=== PATIENT | female | born 1980 | race Caucasian/White ===

== ENCOUNTER 2022-01-16 06:51 | Emergency (ER) | payer OTHER ==
[2022-01-16] MEDS ORDERED: MORPHINE 4 MG/ML SYR ONE ×2 (07:34→08:32)
[2022-01-16] MEDS ORDERED: ONDANSETRON 4 MG/2 ML VIAL ONE ×2 (07:34→08:32)
[2022-01-16] MEDS ORDERED: NA CHLORIDE 0.9% 1,000 ML ONE (07:34)
[2022-01-16 07:59] LABS: Absolute Lymphocytes (CBC) 2.5 K/uL (0.7-4.9); Hematocrit 39.4 % (36.0-45.0); Lymphocytes % 14.7 % (15.3-44.8); MPV 9.4 fL (7.6-11.3); RBC Red Blood Cell Count 4.37 M/uL (3.86-4.86)
[2022-01-16 08:12] LABS: Albumin 4.1 g/dL (3.4-5.0); Bilirubin Total 0.4 mg/dL (0.2-1.0); Potassium 3.3 mmol/L (3.5-5.1); Protein, Total 8.1 g/dL (6.4-8.2)
[2022-01-16] MEDS ORDERED: LIDOCAINE VISCOUS 2% SOLN 15 ML UDC ONE (08:32)
[2022-01-16] MEDS ORDERED: MAGNES/ALUMIN/SIMET 30ML UCUP ONE (08:32)
[2022-01-16 08:48] LABS: Urine Blood 3+ (Negative); Urine Glucose Negative (Negative); Urine Protein 2+ (Negative); Urine Specific Gravity 1.025 (1.005-1.030)
[2022-01-16 08:59] LABS: Urine Bacteria <20 /HPF (<20); Urine RBC >50 /HPF (NONE SEEN)
--- NOTE | 2022-01-16 09:08 | RAD REPORT ---
EXAM DESCRIPTION: CTAbdomen Pelvis W Contrast - 01/16/2022 8:51 am CLINICAL HISTORY: Abdominal pain. Abdominal pain COMPARISON: No comparisons TECHNIQUE: Biphasic CT imaging of the abdomen and pelvis was performed with 100 ml non-ionic IV cont rast. All CT scans are performed using dose optimization technique as appropriate and may include automated exposure control or mA/KV adjustment according to patient size. FINDINGS: The lung bases are clear. The liver is diffusely fatty. Small hiatal hernia. Spleen, pancreas, adrenal glands and left kidney a re within normal limits. Cholecystectomy. Double-J stent is in place on the right spanning the right renal pelvis and urinary bladder. No hydro nephrosis No bowel obstruction, free air, free fluid or abscess. Appendectomy. No evidence of significant lym phadenopathy. No suspicious bony findings. IMPRESSION: No acute intra-abdominal or pelvic finding.
[2022-01-16 09:13] LABS: Urine Specific Gravity/Preg 1.025 (1.005-1.030)
--- NOTE | 2022-01-16 09:17 | EDPHYS ---
Physician Documentation [facility] Name: Rhea Dos Santos Age: 41 yrs Sex: Female : 1980 Arrival Date: 01/16/2022 Time: 06:53 Bed 8 Private MD: ED Physician Franc Ramirez HPI: 01/16 08:46 This 41 yrs old Female presents to ER via EMS with complaints of abdominal pain. ms3 08:46 The patient presents with abdominal pain in the epigastric area. Onset: The ms3 symptoms/episode began/occurred 1 day(s) ago. The symptoms radiate to back. Associated signs and symptoms: Pertinent positives: nausea and vomiting. The symptoms are described as burning. Modifying factors: The symptoms are alleviated by nothing, the symptoms are aggravated by nothing. Severity of pain: in the emergency department the pain is unchanged is a . 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 - Social history:: Smoking status: Patient/guardian denies using tobacco, the patient reports quitting approximately 2 years ago, Patient uses street drugs, marijuana. ROS: 08:46 Constitutional: Negative for fever, and chills. Neck: Negative for injury, pain, and ms3 swelling, Cardiovascular: Negative for chest pain, and palpitations. Respiratory: Negative for shortness of breath, cough, wheezing, and pleuritic chest pain, Back: Negative for injury and pain, Skin: Negative for injury, rash, and discoloration, Neuro: Negative for headache, weakness, numbness, tingling. Psych: Negative for depression, anxiety, suicide ideation, homicidal ideation, and hallucinations. 08:46 Abdomen/GI: Positive for abdominal pain, nausea and vomiting. Exam: 08:46 Constitutional: This is a well developed, well nourished patient who is awake, alert, ms3 and in no acute distress. ENT: Nares patent. No nasal discharge, no septal abnormalities noted. Tympanic membranes are normal and external auditory canals are clear. Oropharynx with no redness, swelling, or masses, exudates, or evidence of obstruction, uvula midline. Mucous membranes moist. Neck: Trachea midline, no cervical lymphadenopathy. Supple, full range of motion without nuchal rigidity, or vertebral point tenderness. No Meningismus. Chest/axilla: Normal chest wall appearance and motion. Nontender with no deformity. Cardiovascular: Regular rate and rhythm with a normal S1 and S2. No gallops, murmurs, or rubs. Normal PMI, no JVD. No pulse deficits. Respiratory: Lungs have equal breath sounds bilaterally, clear to auscultation and percussion. No rales, rhonchi or wheezes noted. No increased work of breathing, no retractions or nasal flaring. Skin: Warm, dry with normal turgor. Normal color with no rashes, no lesions, and no evidence of cellulitis. MS/ Extremity: Pulses equal, no cyanosis. Neurovascular intact. Full, normal range of motion. Psych: Awake, alert, with orientation to person, place and time. Behavior, mood, and affect are within normal limits. 08:46 Abdomen/GI: Inspection: abdomen appears normal, Bowel sounds: normal, Palpation: moderate abdominal tenderness, in the epigastric area. Vital Signs: 06:54 BP 150 / 94; Pulse 71; Resp 18; Temp 98.7(O); Pulse Ox 99% ; Weight 99.79 kg; Height 5 tw5 ft. 1 in. (154.94 cm); Pain 10/10; 07:54 BP 169 / 91; Pulse 65; Resp 18; Pulse Ox 98% on R/A; ph 09:30 BP 146 / 82; Pulse 67; Resp 18; Temp 97.9; Pulse Ox 99% on R/A; ph 06:54 Body Mass Index 41.57 (99.79 kg, 154.94 cm) tw5 MDM: 07:11 Patient medically screened. ms3 08:46 Differential diagnosis: bowel obstruction, non-specific abd pain, pancreatitis. ms3 09:17 Data reviewed: vital signs, nurses notes, lab test result(s), radiologic studies, CT ms3 scan, and as a result, I will discharge patient. 09:17 Data interpreted: Pulse oximetry: on room air is 98 %. Interpretation: normal. ms3 Counseling: I had a detailed discussion with the patient and/or guardian regarding: the historical points, exam findings, and any diagnostic results supporting the discharge/admit diagnosis, the need for outpatient follow up, to return to the emergency department if symptoms worsen or persist or if there are any questions or concerns that arise at home. ED course: Discussed labs,CT, physical exam findings with patient. Patient to follow-up with primary care physician in 2 to 3 days. Patient understands and agrees with plan. All questions were answered. Return precautions discussed include worsening symptoms, or any other concerns. On reevaluation patient is alert and oriented x4, in no apparent distress, nontoxic-appearing, speaking full sentences, ambulatory in emergency department.. 01/16 07:12 Order name: CBC with Diff; Complete Time: 09:09 ms3 01/16 07:12 Order name: CMP; Complete Time: 09:09 ms3 01/16 07:12 Order name: Lipase; Complete Time: 09:09 ms3 01/16 07:12 Order name: Urine Microscopic Only; Complete Time: 09:09 ms3 01/16 08:48 Order name: Urine Dipstick-Ancillary; Complete Time: 09:09 EDMS 01/16 08:50 Order name: Urine --Ancillary (enter results); Complete Time: 09:13 bd 01/16 07:12 Order name: CT Abd/Pelvis - IV Contrast Only; Complete Time: 09:09 ms3 01/16 09:02 Order name: Urine Culture EDMS 01/16 07:12 Order name: IV Saline Lock; Complete Time: 07:49 ms3 01/16 07:12 Order name: Labs collected and sent; Complete Time: 07:49 ms3 01/16 07:12 Order name: Urine Dipstick-Ancillary (obtain specimen); Complete Time: 08:50 ms3 01/16 07:12 Order name: Urine Test (obtain specimen); Complete Time: 08:50 ms3 Administered Medications: 07:48 Drug: Zofran (Ondansetron) 4 mg Route: IVP; Site: right hand; ph 08:26 Follow up: Response: No adverse reaction bp 07:50 Drug: morphine 4 mg Route: IVP; Infused Over: 4 mins; Site: right hand; ph 08:50 Follow up: Response: Pain is decreased bp 07:51 Drug: NS 0.9% 1000 ml Route: IV; Rate: 1 bolus; Site: right hand; ph 09:00 Follow up: Response: No adverse reaction; IV Status: Completed infusion; IV Intake: ph 1000ml 08:40 Drug: morphine 4 mg Route: IVP; Infused Over: 4 mins; Site: right hand; ph 09:00 Follow up: Response: No adverse reaction; Pain is decreased ph 09:00 Drug: GI Cocktail without - (Maalox Suspension 30 ml, Lidocaine Liquid 2 % 15 bp ml) Route: PO; 10:00 Follow up: Response: No adverse reaction ph 10:12 Drug: Pepcid (famotidine) 20 mg Route: PO; ph 10:15 Follow up: Response: No adverse reaction ph Disposition Summary: 01/16/22 09:17 Discharge Ordered Location: Home ms3 Condition: Stable ms3 Diagnosis - Epigastric pain ms3 - Leukocytosis ms3 Followup: ms3 - With: Grayson Gage DO - When: 2 - 3 days - Reason: Recheck today's complaints Discharge Instructions: - Discharge Summary Sheet ms3 - Abdominal Pain, Adult ms3 Forms: - Medication Reconciliation Form ms3 - Thank You Letter ms3 - Antibiotic Education ms3 - Prescription Opioid Use ms3 Prescriptions: - Pepcid 20 mg Oral Tablet - take 1 tablet by ORAL route every 12 hours for 5 days; 10 tablet; Refills: 0, ms3 Product Selection Permitted Signatures: Dispatcher [employer] Elle Villareal RN RN Servando Osborne RN RN Franc Young DO DO ms3 Ana Leary tw5 Corrections: (The following items were deleted from the chart) 17:17 17:15 Data reviewed: vital signs, nurses notes, lab test result(s), radiologic studies, ms3 CT scan, and as a result, I will discharge patient, ms3
--- NOTE | 2022-01-16 09:17 | ER ---
Nurse's Notes [facility] Name: Rhea Dos Santos Age: 41 yrs Sex: Female : 1980 Arrival Date: 01/16/2022 Time: 06:53 Bed 8 Private MD: Diagnosis: Epigastric pain;Leukocytosis Presentation: 01/16 06:54 Chief complaint: EMS states: patient has a history of acute gastris, her stomach tw5 started hurting yesterday. Coronavirus screen: Vaccine status: Patient reports being unvaccinated. Ebola Screen: Patient negative for fever greater than or equal to 101.5 degrees Fahrenheit, and additional compatible Ebola Virus Disease symptoms Patient denies exposure to infectious person. Patient denies travel to an Ebola-affected area in the 21 days before illness onset. Initial Sepsis Screen: Does the patient meet any 2 criteria? No. Patient's initial sepsis screen is negative. Does the patient have a suspected source of infection? Yes: Acute abdominal pain. Risk Assessment: Do you want to hurt yourself or someone else? Patient reports no desire to harm self or others. Onset of symptoms was January 15, 2022 at 04:00. 06:54 Method Of Arrival: EMS: [facility] tw5 06:54 Acuity: PRASAD 3 tw5 Triage Assessment: 06:55 General: Appears uncomfortable, obese, Behavior is cooperative, anxious. Pain: tw5 Complains of pain in abdomen Pain currently is 10 out of 10 on a pain scale. Quality of pain is described as burning. 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 - Social history:: Smoking status: Patient/guardian denies using tobacco, the patient reports quitting approximately 2 years ago, Patient uses street drugs, marijuana. Screenin:58 Abuse screen: Denies threats or abuse. Denies injuries from another. Nutritional tw5 screening: No deficits noted. Tuberculosis screening: No symptoms or risk factors identified. Fall Risk None identified. Assessment: 06:58 General: Reports "oh god it hurts so bad. It alcazar.". Pain: Complains of pain in tw5 abdomen Pain currently is 10 out of 10 on a pain scale. GI: Pt is actively vomiting bile. 07:00 Reassessment: RECD REPORT FROM DAVID REYNA. 41YO WF P/W CHRONIC ABDOMINAL PAIN, H/O bp CHRONIC GASTRITIS. 07:53 Reassessment: Patient appears in no apparent distress at this time. Patient and/or ph family updated on plan of care and expected duration. Pain level reassessed. Patient is alert, oriented x 3, equal unlabored respirations, skin warm/dry/pink. Pt continues to c/o burning. 08:14 Reassessment: Pt reports that abdominal pain is radiating to back, continues to c/o ph burning sensation and nausea, requesting that daughters # be recorded for contact purposes: Naz . Vital Signs: 06:54 BP 150 / 94; Pulse 71; Resp 18; Temp 98.7(O); Pulse Ox 99% ; Weight 99.79 kg; Height 5 tw5 ft. 1 in. (154.94 cm); Pain 10/10; 07:54 BP 169 / 91; Pulse 65; Resp 18; Pulse Ox 98% on R/A; ph 09:30 BP 146 / 82; Pulse 67; Resp 18; Temp 97.9; Pulse Ox 99% on R/A; ph 06:54 Body Mass Index 41.57 (99.79 kg, 154.94 cm) tw5 ED Course: 06:53 Patient arrived in ED. mw2 06:53 Ana Leary is Primary Nurse. tw5 06:55 Triage completed. tw5 06:55 Arm band placed on. tw5 06:57 Franc Ramirez DO is Attending Physician. ms3 06:58 Patient has correct armband on for positive identification. Placed in gown. Bed in low tw5 position. Side rails up X2. Pulse ox on. NIBP on. Door closed. Noise minimized. Moved to private room. Warm blanket given. Verbal reassurance given. 07:00 Maintain EMS IV. Dressing intact. Good blood return noted. Site clean \\T\\ dry. Gauge \\T\\ bp site: 20 R HAND. 07:50 Inserted saline lock: 22 gauge in left antecubital area, using aseptic technique. Blood bp collected. 07:57 Primary Nurse role handed off by Ana Leary ll1 07:57 Elle Rodriguez RN is Primary Nurse. ph 08:52 CT Abd/Pelvis - IV Contrast Only In Process Unspecified. EDMS 09:15 Grayson Gage DO is Referral Physician. ms3 10:12 No provider procedures requiring assistance completed. IV discontinued, intact, ph bleeding controlled, No redness/swelling at site. Pressure dressing applied. Administered Medications: 07:48 Drug: Zofran (Ondansetron) 4 mg Route: IVP; Site: right hand; ph 08:26 Follow up: Response: No adverse reaction bp 07:50 Drug: morphine 4 mg Route: IVP; Infused Over: 4 mins; Site: right hand; ph 08:50 Follow up: Response: Pain is decreased bp 07:51 Drug: NS 0.9% 1000 ml Route: IV; Rate: 1 bolus; Site: right hand; ph 09:00 Follow up: Response: No adverse reaction; IV Status: Completed infusion; IV Intake: ph 1000ml 08:40 Drug: morphine 4 mg Route: IVP; Infused Over: 4 mins; Site: right hand; ph 09:00 Follow up: Response: No adverse reaction; Pain is decreased ph 09:00 Drug: GI Cocktail without - (Maalox Suspension 30 ml, Lidocaine Liquid 2 % 15 bp ml) Route: PO; 10:00 Follow up: Response: No adverse reaction ph 10:12 Drug: Pepcid (famotidine) 20 mg Route: PO; ph 10:15 Follow up: Response: No adverse reaction ph Medication: 06:58 VIS not applicable for this client. tw5 Intake: 09:00 IV: 1000ml; Total: 1000ml. ph Outcome: 09:17 Discharge ordered by MD. ms3 10:12 Patient left the ED. ph 19:23 Discharged to home ambulatory. ph 19:23 Condition: good 19:23 Discharge instructions given to patient, Instructed on discharge instructions, follow up and referral plans. medication usage, Demonstrated understanding of instructions, follow-up care, medications, Prescriptions given X 1. Signatures: Dispatcher [employer] EDOK Elle Rodriguez RN RN Servando Osborne RN RN [facility], Alanna mw2 Portia Rodriguez RN RN ll1 Franc Ramirez, DO GARCIA ms3 Ana Leary tw5
[2022-01-16] MEDS ORDERED: PROMETHAZINE INJ 25 MG/ML AMP ONE (10:09)
[2022-01-16] MEDS ORDERED: FAMOTIDINE 20 MG TAB ONE (10:09)
[2022-01-16 10:33] VITALS: TEMP 98.7
[2022-01-16 10:34] VITALS: BP 169/91; O2SAT 98
== END 2022-01-16 10:12 | disposition home or self-care (01) ==
LOC: ER 06:51
DX: R10.13 Epigastric pain (principal); D72.829 Elevated white blood cell count, unspecified; R11.2 Nausea with vomiting, unspecified; F31.9 Bipolar disorder, unspecified; Z88.5 Allergy status to narcotic agent; Z88.8 Allergy status to other drugs, medicaments and biological substances
CPT/HCPCS: 96361; 87088; 85025; 87086; 36415; 81025; 83690; 80053; 74177; 96375; 96374; 99284; Q9967; J2550; J7030; J2405 ×2; 81003; 81015

== ENCOUNTER 2022-07-06 18:06 | Emergency (ER) | payer OTHER ==
--- OUTSIDE RECORDS SUMMARY | 2022-07-06 18:30 | XMS REPORT | Continuity of Care Document ---
:1980 Author Organization [facility] t Address [address] [place] [address] Care Team Providers Name Role Phone VIELKA RENO Primary Care Physician Unavailable Mac MACK, Jonnathan Ibarra Attending Clinician [phone] Abelardo Gaona Attending Clinician Unavailable Doctor Unassigned, Alder Attending Clinician Unavailable Noemy MACK, Kelvin Santana Attending Clinician DR IQRA GAGE Attending Clinician Unavailable Nidhi South RN Attending Clinician Unavailable Provider, Ang [facility] Attending Clinician Unavailable Unknown, Attending Attending Clinician Unavailable EMERSON KHALIL Attending Clinician Unavailable JOSE ANDERSON Attending Clinician Unavailable JOANNA WEAVER Attending Clinician Unavailable Julio César MACK, Satya Justin Attending Clinician [phone] SATYA ENNIS Attending Clinician Unavailable DAYA LOERA Attending Clinician Unavailable Amilcar Ang MD Attending Clinician Daya Loera MD Attending Clinician CARLITO CARMEN Attending Clinician Unavailable Carlito Carmen MD Attending Clinician Quynh Burleson MD Attending Clinician QUYNH BURLESON Attending Clinician Unavailable Juan Carlos Logan MD Attending Clinician BRITTANI GARCIA Attending Clinician Unavailable Radha IRONER SOCKBrittani Roldan Attending Clinician Costa CRABTREE Attending Clinician Unavailable Rod ACOSTA K Deepali Attending Clinician Iqra Hoffman MD Attending Clinician Lab, Ang - Db Attending Clinician Unavailable Vijay Scottaracarlos Skelton Attending Clinician Unavailable Joanna Weaver MD Attending Clinician EBRAMAGUE CASTILLO Attending Clinician Unavailable Ebrahim IRONER SOCKMague Roldan Attending Clinician Juan Carlos Chamorro MD Attending Clinician Libby Hodges MD Attending Clinician Federico Juan MD Attending Clinician FEDERICO JUAN Attending Clinician Unavailable Jame Calvillo Attending Clinician JONNATHAN WATTS Attending Clinician Unavailable Duane Mario MD Attending Clinician Carley Fish MA Attending Clinician Unavailable Nurse, Slmg Sl Uro Attending Clinician Unavailable Ultrasound, Slmg Sl Uro Attending Clinician Unavailable DR MO BRANDON Attending Clinician Unavailable MARINE CAVAZOS Attending Clinician Unavailable Marine Cavazos DO Attending Clinician DR TREVON KC Attending Clinician Unavailable Trippafcheco WHEAT BUYER, Kayode Sanchez Attending Clinician [phone] KAYODE LOPEZ Attending Clinician Unavailable Krystle Mckeon CRNA Attending Clinician DR JADA MCGRATH Attending Clinician Unavailable SERA, DR CANDELARIO LYONS Attending Clinician Unavailable EWA LEMUS Attending Clinician Unavailable Noelle SILVERMAN, Delaney Rm Attending Clinician Unavailable Ewa Lemus MD Attending Clinician DR STORMY ZULETA Attending Clinician Unavailable TOD PHOENIX Attending Clinician Unavailable ARROYO, SON Attending Clinician Unavailable ARROYO, SON Attending Clinician [phone] DR RAMIRO LOPEZ I Attending Clinician Unavailable DR ANTHONY POP Attending Clinician Unavailable Oswald MACK, Jose Juan Jeter Attending Clinician [phone] Philly MACK, Nazanin Thomason Attending Clinician Manuel MACK, Polo Wilson Attending Clinician Tyler MACK, Surjit Shea Attending Clinician [phone] MD NAZANIN PONCE Attending Clinician Unavailable DR CARLOS HAYWARD Attending Clinician Unavailable DR KARTHIKEYAN AGUAYO Attending Clinician Unavailable RAVIN THOMAS Attending Clinician Unavailable THOMAS ALICIA Attending Clinician [phone] DR QUYNH BRADSHAW Attending Clinician Unavailable RAINA LIND Attending Clinician Unavailable RAINA LIND Attending Clinician [phone] RAINA LIND Attending Clinician Unavailable DR JENNYFER MILLER Attending Clinician Unavailable Andriy Starkey MD Attending Clinician Kinsey Cadena MA Attending Clinician Unavailable Franc Ramirez DO Attending Clinician DR LORNE RUIZ Attending Clinician Unavailable JUAN F FERNANDES, DR DONAVAN REDDING Attending Clinician Unavailable DR JARVIS CORBIN Attending Clinician Unavailable MR CHANTELL JOAQUIN Attending Clinician Unavailable DR JOSE JUAN CLAY Attending Clinician Unavailable DALILA BOATENG Attending Clinician Unavailable JEN, DR DALTON Attending Clinician Unavailable RUI DICKSON Attending Clinician Unavailable CYNDI COOL Attending Clinician Unavailable KENDRICK SAWANT Attending Clinician Unavailable SERGIO MADISON Attending Clinician Unavailable Vielka Reno Admitting Clinician Unavailable DR IQRA GAGE Admitting Clinician Unavailable DAYA LOERA Admitting Clinician Unavailable QUYNH BURLESON Admitting Clinician Unavailable BRITTANI GARCIA Admitting Clinician Unavailable Costa CRABTREE Admitting Clinician Unavailable MAGUE WHITTEN Admitting Clinician Unavailable JONNATHAN WATTS Admitting Clinician Unavailable ALEKSANDR, DR HASSAN Admitting Clinician Unavailable KNOW, DOES_NOT Admitting Clinician Unavailable MARINE CAVAZOS Admitting Clinician Unavailable DE, DR LESTER Admitting Clinician Unavailable RAMILA, DR JADA Cohn Admitting Clinician Unavailable SERA, DR CANDELARIO LYONS Admitting Clinician Unavailable SONG, DR STORMY Olsen Admitting Clinician Unavailable TOD PHOENIX Admitting Clinician Unavailable JOHN, DR RAMIRO Nath Admitting Clinician Unavailable DONN, DR CRUZ Admitting Clinician Unavailable NAZANIN PONCE Admitting Clinician Unavailable MD NAZANIN PONCE Admitting Clinician Unavailable DR CARLOS HAYWARD Admitting Clinician Unavailable DEDE, DR NAPIER Admitting Clinician Unavailable AUGUSTINE, DR QUYNH TAYLOR Admitting Clinician Unavailable ANGELA, DR BURGER Admitting Clinician Unavailable DR LORNE RUIZ Admitting Clinician Unavailable JUAN F FERNANDES, DR DONAVAN REDDING Admitting Clinician Unavailable SHAQUILLE, DR CONLEY Admitting Clinician Unavailable EMANI, MR CHANTELL Admitting Clinician Unavailable DR JOSE JUAN CLAY Admitting Clinician Unavailable DALILA BOATENG Admitting Clinician Unavailable DR KRYSTLE LI Admitting Clinician Unavailable CYNDI COOL Admitting Clinician Unavailable Payers Payer Name Policy Type Policy Number Effective Date Expiration Date S karen 0733 [id number] 2022 00:00:00 Problems Condition Condition Condition Status Onset Resolution Last Treating Co mments Source Name Details Category Date Date Treatment Clinician Date Intractabl Intractabl Disease Active [facility] pain [facility] 9[facility] [place] Flank pain Flank pain Disease Active [facility] Ureteral Ureteral Disease [facility] stricture, stricture, 9-14 [facility] left left 00:00: Medical 00 Center Anxiety Anxiety Disease Active Univers 8-25 ity of 00:00: [place] 00 Medical Branch Bipolar Bipolar Disease Active Univers affective affective 8-25 ity of disorder disorder 00:00: [place] in in 00 Medical remission remission Bran ch Depression Depression Disease Active U nivers 8-25 ity of 00:00: [place] [facility] Branch PTSD PTSD Disease Active Univers (post-trau (post-trau 8-25 it y of matic matic 00:00: [place] stress stress 00 Medical disorder) disorder) Bran ch Esophageal Esophageal Disease Active U nivers reflux reflux 8-25 ity of 00:00: [place] 00 [facility] Branch Nephrolith Nephrolith Disease Active U ciaran iasis iasis 8-25 ity of 00:00: [place] 00 [facility] Branch Hydronephr Hydronephr Disease Active [facility] osis, osis, 03-18 [facility] unspecifie unspecifie 00:00: Me dical d d 00 Center hydronephr hydronephr osis type osis type Intractabl Intractabl Disease Active M ethodi e nausea e nausea 4-22 [facility] and and 00:00: Hospita vomiting vomiting 00 l Epigastric Epigastric Disease Active M ethodi pain pain 9-15 [facility] 00:00: Hospita 00 l Chronic Chronic Disease Active Methodi pancreatit pancreatit 915 st is is 00:00: Hospita 00 l Abnormal Abnormal Disease Active Metho di liver liver 9-15 st enzymes enzymes 00:00: Hospita 00 l Renal Renal Disease Active Methodi calculus calculus 9-03 st or stone or stone 00:00: Hospit a 00 l Hypertensi Hypertensi Disease Active 2015-[address] on on 2- [facility] Center Generalize Generalize Disease Active 2015-[address] d d 208 [facility] abdominal abdominal 00:00: Medi darren pain pain 00 Center Right Right Disease Active 2015-[address] [facility] flank pain flank pain 2-08 [facility] 00:00: Medical 00 Center Allergies, Adverse Reactions, Alerts Allergy Allergy Status Severity Reaction(s) Onset Inactive Treating Comm ents Source Name Type Date Date Clinician LITHIUM Allergy [facility] [place] Drug Active [facility] Allergy 03-07 [facility] Center ARIPIPRA DRUG Active Unknown-Cmnt Un manjo ZOLE INGREDI 01-15 ity of 00:00: [place] [facility] DULOXETI DRUG Active Unknown-Cmnt Un manoj NE INGREDI 01-15 ity of 00:00: [place] 00 Medical Branch Aripipra Propensi Active Unknown - Can't Uni vers zole ty to See comments 01-15 remember it y of adverse 00:00: [place] reaction 00 Medical s Branch Duloxeti Propensi Active Unknown - Cant Uni vers ne ty to See comments 01-15 remember it y of adverse 00:00: the [place] reaction 00 reaction Medica l s Branch Duloxeti Propensi Active 2019-0 [facility] ne Hcl ty to [address] [place] [address] adverse 00:00: of reaction 00 Medicin s to e drug Fluoxeti Propensi Active 2019-0 [facility] ne ty to [address] adverse 00:00: of reaction 00 Medicin s to e drug Quetiapi Propensi Active 2019-0 [facility] ne ty to [address] [place] [address] Fumarate adverse 00:00: of reaction 00 Medicin s to e drug Tegretol Propensi Active 2020-0 [facility] ty to [address] adverse 00:00: of reaction 00 Medicin s to e drug Abilify Propensi Active 2020-0 [facility] ty to [address] adverse 00:00: of reaction 00 Medicin s to e drug Celexa Propensi Active 2020-0 [facility] ty to [address] adverse 00:00: of reaction 00 Medicin s to e drug prochlor DA Active U 2016-08 [facility] perazine 09-[facility]: [address] carbamaz DA Active U 2016-08 [facility] epine 09-09 00:00: [address] fluoxeti DA Active U 2016-08 [facility] ne 09-09 [facility]: [address] citalopr DA Active U 2016-08 [facility] am 09-09 00:00: [address] quetiapi DA Active U 2016-08 [facility] ne 09-09 00:00: [place] [facility] duloxeti DA Active U 2016-08 [facility] ne 09-09 [facility]:00: [address] aripipra DA Active U 2016-08 [facility] zole 09-09 00:00: [address] prochlor DA Active U 2016-08 [facility] perazine 09-09 00:00: [facility] [facility] carbamaz DA Active U 2016-08 [facility] epine 09-09 00:00: [address] fluoxeti DA Active U 2016-08 [facility] ne 09-09 00:00: [address] citalopr DA Active U 2016-08 [facility] am 09-09 00:00: [address] quetiapi DA Active U RAPID HEART 2016-08 [facility] ne RATE 09-09 00:00: [address] duloxeti DA Active U ILL 2016-08 [facility] ne 09-09 [facility]:00: [address] aripipra DA Active U ILL 2016-08 [facility] zole 09-09 00:[facility]: [address] Aripipra Propensi Active Other (See Cant Me thodi zole ty to Comments) 04-[address] adverse 00:00: reaction Hospita reaction 00 l s to drug Citalopr Propensi Active Other (See Aggressio Methodi am ty to Comments) 04-[address] adverse 00:00: Hospita reaction 00 l s to drug Duloxeti Propensi Active Other (See Cant Me thodi ne ty to Comments) 04-[address] adverse 00:00: reaction Hospita reaction 00 l s to drug Fluoxeti Propensi Active Other (See Hallucina Methodi ne ty to Comments) 04-[address] adverse 00:00: Hospita reaction 00 l s to drug Quetiapi Propensi Active Palpitations Methodi ne ty to 04-13 st adverse 00:00: Hospita reaction 00 l s to drug Carbamaz Propensi Active Method i epine ty to 04-13 st adverse 00:00: Hospita reaction 00 l s to drug ARIPIPRA Allergy Active [facility] ZOLE 3-18 [facility]: [address] Aripipra Propensi Active unknown [facility] zole ty to 3-18 [facility] adverse 00:00: Medical reaction 00 Center s CITALOPR Allergy Active Other [facility] AM 2-09 [facility] 00:[facility]: Medical 00 [place] DULOXETI Allergy Active [facility] NE 2-09 [facility] 00:[facility]: Medical 00 [place] Citalopr Propensi Active Other (See Agitation [facility] am ty to Comments) 2 [facility] adverse 00:00: Medical reaction 00 Center s Duloxeti Propensi Active Warm [facility] ne ty to 2- sensation [facility] adverse 00:00: form top Medical reaction 00 of head Center s and cold sensation coming from feet FLUOXETI Allergy Active 2013-[address] NE 2-29 [facility] 00:[facility]: Medical [place] QUETIAPI Allergy Active 2013-[address] NE 2-29 [facility] 00[facility]: Medical 00 [place] CARBAMAZ Allergy Active 2013-[address] EPINE 2-29 [facility] 00:[facility]: Medical 00 [place] Fluoxeti Drug Active 2013-08 Hallucina [facility] ne Allergy 2 ting [facility] 00:[facility]: while Medical 00 awake and Center asleep Quetiapi Drug Active 2013-[address] ne Allergy 2-29 [facility] 00:[facility]: Medical 00 [place] Carbamaz Drug Active 2013-[address] epine Allergy 2-29 [facility] 00:[facility]: Medical 00 [place] Levaquin DA Active Unknown 2013-08 [facility] 08-11 Medical 00:00: Center 00 PROCHLOR Allergy Active Other [facility] PERAZINE 7-30 [facility] 00:[facility]: Medical 00 [place] Prochlor Propensi Active Other (See Muscle [facility] perazine ty to Comments) 7-30 spasms [facility] adverse 00:00: Medical reaction 00 [place] s Fluoxeti Propensi Active Hallucinatio Univers ne ty to ns 7-30 ity of adverse 00:00: [place] reaction 00 Medical s Branch Quetiapi Propensi Active Other - See Speech U nivers ne ty to comments 7-30 problems ity of adverse 00:00: [place] reaction Medical s Branch Carbamaz Propensi Active Rash Univer s epine ty to 7-30 ity of adverse 00:00: [place] reaction 00 Medical s Branch CITALOPR DRUG Active Other-Cmnt Univ ers AM INGREDI 03-09 ity of 00:00: [place] [facility] FLUOXETI DRUG Active Hallucinates Un manoj NE INGREDI 03-09 ity of 00:00: [place] [facility] QUETIAPI DRUG Active Other-Cmnt Univ ers NE INGREDI 03-09 ity of 00:00: [place] [facility] CARBAMAZ DRUG Active Rash Univers EPINE INGREDI 03-09 ity of 00:00: [place] [facility] Citalopr Propensi Active Other - See agreesiv e Univers am ty to comments 03-09 ity of adverse 00:00: [place] reaction Medical s Branch Tegretol DA Active Severe [facility] 08-11 Medical 00:00: Center 00 Cymbalta DA Active Severe [facility] 08-11 Medical 00:00: Center 00 Seroquel DA Active Moderate [facility] 08-11 Medical 00:00: Center 00 Celexa DA Active Severe [facility] 08-11 Medical 00:00: Center 00 Prozac DA Active Unknown [facility] 08-11 Medical 00:00: Center 00 Abilify DA Active Unknown [facility] Social History Social Habit Start Date Stop Date Quantity Comments Source Nutritional 2019-07-26 [facility] observable 00:00:00 Health-related 2019-07-26 [facility] Behavior 00:00:00 History [facility] ge of Alcohol Std Drinks Medici ne History [facility] ge of Alcohol Binge Medicine Alcohol intake 2022-06-11 2022-06-[address] [facility] es 00:00:00 00:00:00 non-drinker of Medical Ce nter alcohol (finding) Exposure to 2022-05-28 2022-06-07 Not sure [facility] SARS-CoV-2 (event) 00:00:00 15:58:00 Medica l Branch Cigarette 2022-04-04 2022-04-04 [facility] pack-years 00:00:00 00:00:00 Medical Branch History of tobacco 1990-10-08 2020-09-19 Cigarette Smoker [facility] use 00:00:00 00:00:00 Medical Branch History SDOH 2020-05-09 2020-05-09 1 [facility] ge of Alcohol Frequency 00:00:00 00:00:00 Medicin e Tobacco Comment 2020-05-09 2020-05-09 Quit 3 months [facility] 00:00:00 00:00:00 ago Medicine Tobacco use and 2019-05-04 2019-05-[address] [facility] [facility] exposure 00:00:00 00:00:00 Medical Center Cigarettes smoked 2018-03-30 2018-03-30 [facility] current (pack per 00:00:00 00:00:00 day) - Reported Sex Assigned At [address] [facility] 00:00:00 00:00:00 Medical Center Smoking Status Start Date Stop Date Source Unknown if [facility] Former smoker 2019-05-04 00:00:00 2019-05-[address] [facility] 00:[facility]:00 Center Smokes tobacco daily 2018-03-30 00:00:00 [facility] Medications Ordered Filled Start Stop Current Ordering Indication Dosage Frequency Signature Comments Components Source Medication Medication Date Date Medication? Clinician (SIG) Name Name amitriptyli 2021-08- Yes 10mg QD Take [address] [facility] (ELAVIL) 09-03 tablet (10 L ukes 10 MG 00:00: 23:59 mg total) Medica l tablet 00 :00 by mouth Center nightly for 30 days. cimetidine 2021-08- Yes 400mg QD Take [address] (TAGAMET) 08-19 tablet [facility] 400 MG 00:00: 23:59 (400 mg Medical tablet 00 :00 total) by Center mouth nightly for 90 days. cimetidine 2021-08- Yes 400mg QD Take [address] (TAGAMET) 08-19 tablet [facility] 400 MG 00:00: 23:59 (400 mg Medical tablet 00 :00 total) by Center mouth nightly for 90 days. meloxicam 2021-08- Yes 15mg QD Take 1 [facility] (MOBIC) 15 08-19 tablet (15 [facility] MG tablet 00:00: 23:59 mg total) Me dical 00 :00 by mouth Center daily for 14 days. meloxicam 2021-08 No 15mg QD Take 1 [facility] (MOBIC) 15 08-19 11-23 tablet (15 [facility] k[facility] MG tablet 00:00: 23:59 mg total) Me dical 00 :00 by mouth Center daily for 14 days. clonazePAM 2021-08 Yes 1mg Take [address] (KlonoPIN) 1-01 by mouth 3 Ernesto es 1 MG tablet 13:14: (three) Med ical 23 times Center daily as needed for Anxiety . divalproex 2021-08 Yes mixed 500mg Q.5D Take [address] (DEPAKOTE) 1-01 bipolar I mg by Ernesto es 500 MG EC 13:14: disorder mouth 2 M edical tablet 23 (two) Center times daily . cetirizine 2021-08 Yes 10mg QD Take [address] (ZyrTEC) 10 1-01 by mouth Luke s MG tablet 13:14: daily. Medica l 23 Center clonazePAM 2021-08 Yes 1mg Take [address] (KlonoPIN) 1-01 by mouth 3 Ernseto es 1 MG tablet 13:14: (three) Med ical 23 times Center daily as needed for Anxiety . divalproex 2021-08 Yes mixed 500mg Q.5D Take [address] (DEPAKOTE) 1-01 bipolar I mg by Ernesto es 500 MG EC 13:14: disorder mouth 2 M edical tablet 23 (two) Center times daily . cetirizine 2021-08 Yes 10mg QD Take [address] (ZyrTEC) 10 101 by mouth Luke s MG tablet 13:14: daily. Medica l 23 Center ondansetron 2021-08 No 4mg Take [address] (ZOFRAN-ODT 0-31 10-31 by mouth Ernesto es ) 4 MG 10:34: 00:00 every 8 Medical disintegrat 17 :00 (eight) Cente r ing tablet hours as needed for Nausea. ondansetron 2021-08 No 4mg Take [address] (ZOFRAN-ODT 0-31 10-31 by mouth Ernesto es ) 4 MG 10:34: 00:00 every 8 Medical disintegrat 17 :00 (eight) Cente r ing tablet hours as needed for Nausea. levoFLOXaci 2021-08- No Lower 500mg QD Take [address] n 0-31 06-17 urinary tablet [facility] (Levaquin) 00:00: 23:59 tract (500 mg Me dical 500 MG 00 :00 symptoms total) by Cent er tablet (LUTS) mouth daily for 7 days. levoFLOXaci 2021-08- No Lower 500mg QD Take [address] n 0-31 07 urinary tablet [facility] (Levaquin) 00:00: 23:59 tract (500 mg Me dical 500 MG 00 :00 symptoms total) by Cent er tablet (LUTS) mouth daily for 7 days. ofloxacin 2021-08 Yes [id number] 5[drp] Place 5 Univers 0.3 % otic 0-29 Drops in ity o f drops 00:00: right ear [place] 00 in the Medical morning Branch and 5 Drops in the evening. ofloxacin 2021-08 Yes [id number] 5[drp] Place 5 Univers 0.3 % otic 0-29 Drops in ity o f drops 00:00: right ear [place] 00 in the Medical morning Branch and 5 Drops in the evening. ofloxacin 2021-08 Yes [id number] 5[drp] Place 5 Univers 0.3 % otic 0-29 Drops in ity o f drops 00:00: right ear [place] 00 in the Medical morning Branch and 5 Drops in the evening. cefdinir 2021-08- Yes [id number] 300mg Take 6 mL Univers 250 mg/5 mL 006-19 by mouth ity of suspension 00:00: 05:59 in the [facility] 00 :00 morning Medical and 6 mL Branch in the evening. Do all this for 10 days. cefdinir 2021-08- Yes [id number] 300mg Take 6 mL Univers 250 mg/5 mL 006-19 by mouth ity of suspension 00:00: 05:59 in the [facility] 00 :00 morning Medical and 6 mL Branch in the evening. Do all this for 10 days. cefdinir 2021-08- Yes [id number] 300mg Take 6 mL Univers 250 mg/5 mL 029 06-19 by mouth ity of suspension 00:00: 05:[place] morning Medical and 6 mL Branch in the evening. Do all this for 10 days. bromphenira 2021-08 Yes [id number] 5mL Take 5 mL Univers mine-pseudo 0-24 by mouth 4 it y of ephedrine-D 00:00: (four[place] (BROMFED 00 times Medical DM) 2-30-10 daily as Bran ch mg/5 mL needed for syrup Congestion /Allergies . azelastine 2021-08 Yes [id number] 1{spray Use 1 Univers 137 mcg 0-24 } [place] in ity of (0.1 %) 00:00: each [place] nasal spray 00 nostril in [facility] the Branch morning and 1 [place] in the evening. Use in each nostril as directed methocarbam 2021-08 Yes [id number] 500mg Take 1 Univers oL 500 mg 0-24 4 tablet by ity o f tablet 00:00: mouth 4 [place] ([facility]) Medical times [place] daily. bromphenira 2021-08 Yes [id number] 5mL Take 5 mL Univers mine-pseudo 0-24 by mouth 4 it y of ephedrine-D 00:00: (four[place] (BROMFED 00 times Medical DM) 2-30-10 daily as Bran ch mg/5 mL needed for syrup Congestion /Allergies . azelastine 2021-08 Yes [id number] 1{spray Use 1 Univers 137 mcg 0-24 } [place] in ity of (0.1 %) 00:00: each [place] nasal spray 00 nostril in [facility] the [place] morning and 1 [place] in the evening. Use in each nostril as directed methocarbam 2021-08 Yes [id number] 500mg Take 1 Univers oL 500 mg 0-24 4 tablet by ity o f tablet 00:00: mouth 4 [place] (four) Medical times Branch daily. bromphenira 2021-08 Yes [id number] 5mL Take 5 mL Univers mine-pseudo 0-24 by mouth 4 it y of ephedrine-D 00:00: (four[place] (BROMFED 00 times Medical DM) 2-30-10 daily as Bran ch mg/5 mL needed for syrup Congestion /Allergies . azelastine 2021-08 Yes [id number] 1{spray Use 1 Univers 137 mcg 0-24 } [place] in ity of (0.1 %) 00:00: each [place] nasal spray 00 nostril in [place] dical the Branch morning and 1 [place] in the evening. Use in each nostril as directed methocarbam 2021-08 Yes [id number] 500mg Take 1 Univers oL 500 mg 0-24 4 tablet by ity o f tablet 00:00: mouth 4 [place] [id number] (four) Medical times Branch daily. HYDROcodone 2021-08- No 1{tbl} Take [address] -acetaminop 0-23 11-02 tablet by Marilyn post ([employer]) 00:00: 23:59 mouth Medi darren 5-325 mg 00 :00 every 6 Center per tablet (six) hours as needed for Pain for up to 10 days. Max Daily Amount: 4 tablets HYDROcodone 2021-08 No 1{tbl} Take [address] -acetaminop 0-23 11-02 tablet by Marilyn post ([employer]) 00:00: 23:59 mouth Medi darren 5-325 mg 00 :00 every 6 Center per tablet (six) hours as needed for Pain for up to 10 days. Max Daily Amount: 4 tablets nitrofurant 2021-08- No 100mg Q.5D Take [address] oin, 0-23 10-30 capsule [facility] macrocrysta 00:00: 23:59 (100 mg Me dical l-monohydra 00 :00 total) by [place] [address] ter te, mouth 2 (MACROBID) (two) 100 MG times capsule daily for 7 days. tamsulosin 2021-08 No .4mg QD Take [address] (FLOMAX) 0-23 10-30 capsule [facility] 0.4 mg Cap 00:00: 23:59 (0.4 mg Med ical 24 hr 00 :00 total) by Center capsule mouth daily for 7 days. nitrofurant 2021-08- No 100mg Q.5D Take [address] oin, 0-23 10-30 capsule [facility] macrocrysta 00:00: 23:59 (100 mg Me dical l-monohydra 00 :00 total) by [place] ter te, mouth 2 (MACROBID) (two) 100 MG times capsule daily for 7 days. tamsulosin 2021-08 No .4mg QD Take [address] (FLOMAX) 0- 10-30 capsule [facility] 0.4 mg Cap 00:00: 23:59 (0.4 mg Med ical 24 hr 00 :00 total) by Center capsule mouth daily for 7 days. morpHINE (2 2021-08 No 4mg 4 mg, Slow Univers mg/mL) 05-29 IV Push, ity of injection 4 13:30: 12:41 [place]CE, 1 [place] mg 00 :[place] dose, On Medical Wed Branch 05/29/22 at 0830, STAT proMETHazin 2021-08 No 25mg 25 mg, IV Univers e 05-29 Piggyback, ity of (PHENERGAN) 12:30: 12:42 [place] 25 mg in 00 :00 dose, On Medical NaCl 0.9% Wed Branch (NS) 50 mL 05/29/22 IV at 0730, piggyback MEGHA ketorolac 2021-08 No 30mg 30 mg, Unive rs (TORADOL) 05-29 Slow IV ity of injection 12:30: 12:41 Push, [place] 30 mg 00 :00 ONCE, 1 Medical dose, On Branch 05/29/22 at 0730, MEGHA NaCl 0.9% 2021-08 No 1000mL at 999 Uni vers (NS) bolus 005-29 mL/hr, ity of infusion 12:30: 14:10 1,000 mL, Renato as 1,000 mL 00 :00 IV Medical Infusion, Branch ONCE, 1 dose, On Fri05/29/22 at 0730, STAT metoclopram 2021-08 No 10mg 10 mg, Uni vers teresa HCl 005-29 Slow IV ity of (REGLAN) 11:30: 11:46 Push, [place] injection 00 :00 ONCE, 1 Medical 10 mg dose, On Branch 05/29/22 at 0630, MEGHA ketorolac 2021-08 Yes [id number] 10mg Take 1 Un manoj 10 mg 0-19 tablet by ity of tablet 00:00: mouth [place] 00 every 6 Medical (six) Branch hours as needed for Pain (scale 4-6), Pain (scale 1-3) or Alternate with [place] for pain scale 4-6. proMETHazin 2021-08 Yes [id number] 25mg Take 1 [facility] 25 mg 0-19 tablet by ity of tablet 00:00: mouth [place] 00 every 6 Medical (six) Branch hours as needed for Nausea and Vomiting (N/V). ketorolac 2021-08 Yes [id number] 10mg Take 1 [facility] manoj 10 mg 0-19 tablet by ity of tablet 00:00: mouth [place] 00 every 6 Medical (six) Branch hours as needed for Pain (scale 4-6), Pain (scale 1-3) or Alternate with [place] for pain scale 4-6. proMETHazin 2021-08 Yes [id number] 25mg Take 1 [facility] 25 mg 0-19 tablet by ity of tablet 00:00: mouth [place] 00 every 6 Medical (six) Branch hours as needed for Nausea and Vomiting (N/V). ketorolac 2021-08 Yes [id number] 10mg Take 1 [facility] manoj 10 mg 0-19 tablet by ity of tablet 00:00: mouth [place] 00 every 6 Medical (six) Branch hours as needed for Pain (scale 4-6), Pain (scale 1-3) or Alternate with [place] for pain scale 4-6. proMETHazin 2021-08 Yes [id number] 25mg Take 1 [facility] e 25 mg 0-19 tablet by ity of tablet 00:00: mouth [place] 00 every 6 Medical (six) Branch hours as needed for Nausea and Vomiting (N/V). ketorolac 2021-08 Yes [id number] 10mg Take 1 [facility] manoj 10 mg 0-19 tablet by ity of tablet 00:00: mouth [place] 00 every 6 Medical (six) Branch hours as needed for Pain (scale 4-6), Pain (scale 1-3) or Alternate with [place] for pain scale 4-6. proMETHazin 2021-08 Yes [id number] 25mg Take 1 [facility] e 25 mg 0-19 tablet by ity of tablet 00:00: mouth [place] 00 every 6 Medical (six) Branch hours as needed for Nausea and Vomiting (N/V). HYDROcodone 2021-08- Yes [id number] 1{tbl} Take 1 U nivers -acetaminop 0-19 10-27 tablet by it y of hen 5-325 00:00: 04:59 mouth [place] mg tablet 00 :00 every 6 Medical (six) Branch hours as needed for Pain (scale 7-10) for up to 7 days. Indication s: acute pain proMETHazin 2021-08 No 25mg 25 mg, IV [facility] e 0-07 20- Piggyback, ity of (PHENERGAN) 14:30: 14:49 ONCE, 1 [place] 25 mg in 00 :00 dose, On Medical NaCl 0.9% Wed Branch (NS) 50 mL 05/22/22 IV at 0930, piggyback MEGHA NaCl 0.9% 2021-08 No 1000mL at 999 Uni vers (NS) IV 0-12 10-12 mL/hr, ity of infusion 14:15: 15:53 Intravenou [place] 1,000 mL 00 :00 s, ONCE, 1 Medic al dose, On Branch 05/22/22 at 0915, MEGHA pantoprazol 2021-08 No 40mg 40 mg, Uni vers e 0-05-22 Slow IV ity of (PROTONIX) 13:15: 13:26 Push, [place] injection 00 :00 ONCE, 1 Medical 40 mg dose, On Branch 05/22/22 at 0815 morpHINE (4 2021-08 No 4mg 4 mg, Slow [facility] mg/mL) 05-22 IV Push, ity of injection 4 13:15: 13:26 ONCE, 1 [place] mg 00 :00 dose, On Medical Wed Branch 05/22/22 at 0815, Routine dicyclomine 2021-08 Yes [id number] 20mg Take 1 [facility] 20 mg 0-12 tablet by ity of tablet 00:00: mouth 4 [place] 00 (four) Medical times Branch daily as needed for Abdominal pain. dicyclomine 2021-08 Yes [id number] 20mg Take 1 [facility] 20 mg 0-12 tablet by ity of tablet 00:00: mouth 4 [place] 00 (four) Medical times Branch daily as needed for Abdominal pain. dicyclomine 2021-08 Yes [id number] 20mg Take 1 [facility] 20 mg 0-12 tablet by ity of tablet 00:00: mouth 4 [place] 00 (four) Medical times Branch daily as needed for Abdominal pain. dicyclomine 2021-08 Yes [id number] 20mg Take 1 [facility] 20 mg 0-12 tablet by ity of tablet 00:00: mouth (four) Medical times Branch daily as needed for Abdominal pain. dicyclomine 2021-08 Yes [id number] 20mg Take 1 [facility] 20 mg 0-12 tablet by ity of tablet 00:00: mouth (four) Medical times Branch daily as needed for Abdominal pain. HYDROcodone 2021-2021- No 1{tbl} Take [address] -acetaminop 9-26 10-06 tablet by Marilyn post ([employer]) 00:00: 23:59 mouth Medi dar[place] 5-325 mg 00 :00 every 6 Center per tablet (six) hours as needed for Pain for up to 10 days. Max Daily Amount: 4 tablets HYDROcodone 2021-0 2021- No 1{tbl} Take [address] -acetaminop 9-26 10-06 tablet by Marilyn post ([employer]) 00:00: 23:59 mouth Medi darren 5-325 mg 00 :00 every 6 Center per tablet (six) hours as needed for Pain for up to 10 days. Max Daily Amount: 4 tablets DIVALPROEX 2021-0 Yes [id number] TAKE ONE [facility] 500 mg EC 9-23 TABLET BY ity o f tablet 00:00: MOUTH [place] 00 EVERY 12 Medical HOURS Branch DIVALPROEX 2021-0 Yes [id number] TAKE ONE [facility] 500 mg EC 9-23 TABLET BY ity o f tablet 00:00: MOUTH [place] 00 EVERY 12 Medical HOURS Branch DIVALPROEX 2021-0 Yes [id number] TAKE ONE [facility] 500 mg EC 9-23 TABLET BY ity o f tablet 00:00: MOUTH [place] 00 EVERY 12 Medical HOURS Branch DIVALPROEX 2-0 Yes [id number] TAKE ONE [facility] 500 mg EC 9-23 TABLET BY ity o f tablet 00:00: MOUTH [place] 00 EVERY 12 Medical HOURS Branch DIVALPROEX 2021-0 Yes [id number] TAKE ONE [facility] 500 mg EC 9-23 TABLET BY ity o f tablet 00:00: MOUTH [place] 00 EVERY 12 Medical HOURS Branch DIVALPROEX 2021-0 Yes [id number] TAKE ONE [facility] 500 mg EC 9-23 TABLET BY ity o f tablet 00:00: MOUTH [place] 00 EVERY 12 Medical HOURS Branch oxybutynin 2021- No 5mg Q.[id number] Take [address] [facility] (DITROPAN) 04-30- [id number] by mouth 3 [facility] 5 MG tablet 15:51: 00:00 3D (three) Me dical 04 :00 times Center daily. cephalexin 2021-2021- No 500mg Q.5D Take [address] (KEFLEX) 9-20 09-14 mg by [facility] 500 MG 15:51: 00:00 mouth 2 Medical capsule 04 :00 (two) Center times daily. ketorolac 2021-2021- No 10mg Take [address] (TORADOL) 04-30- by mouth [facility] 10 mg 15:51: 00:00 every 6 Medical tablet 04 :00 (six) Center hours as needed for Pain. oxybutynin 2021- No 5mg Q.[id number] Take [address] [facility] (DITROPAN) 04-30- [id number] by mouth 3 [facility] 5 MG tablet 15:51: 00:00 3D (three) Me dical 04 :00 times Center daily. cephalexin 2021- No 500mg Q.5D Take [address] (KEFLEX) -20 09-14 mg by [facility] 500 MG 15:51: 00:00 mouth 2 Medical capsule 04 :00 (two) Center times daily. ketorolac 2021-2021- No 10mg Take [address] (TORADOL) 04-30-14 by mouth [facility] 10 mg 15:51: 00:00 every 6 Medical tablet 04 :00 (six) Center hours as needed for Pain. mirabegron 2021- 2022- No 50mg QD Take [address] [facility] (MYRBETRIQ) 9-20 10-20 tablet (50 [facility] 50 mg Tb24 00:00: 23:59 mg total) M edical ER tablet 00 :00 by mouth Center daily for 30 days. mirabegron 2021-2- No 50mg QD Take [address] [facility] (MYRBETRIQ) 9-20 10-20 tablet (50 [facility] 50 mg Tb24 00:00: 23:59 mg total) M edical ER tablet 00 :00 by mouth Center daily for 30 days. gabapentin 2021-2021- No 100mg Q.[id number] Take [address] [facility] (NEURONTIN) 04-29 [id number] capsule [facility] 100 MG 00:00: 23:59 3D (100 mg Medical capsule 00 :00 total) by Center mouth 3 (three) times daily for 30 days. gabapentin 2021-2021- No 100mg Q.[id number] Take [address] [facility] (NEURONTIN) 04-29 [id number] capsule [facility] 100 MG 00:00: 23:59 3D (100 mg Medical capsule 00 :00 total) by Center mouth 3 (three) times daily for 30 days. HYDROcodone 2021-2021- No 1{tbl} Take [address] -acetaminop 04-29 tablet by Marilyn post ([facility]CO 00:00: 00:00 mouth Medic al 5-325) 00 :00 every 6 Center 5-325 mg (six) per tablet hours as needed for Pain for up to 10 days. Max Daily Amount: 4 tablets HYDROcodone 2021-2021- No 1{tbl} Take [address] -acetaminop 04-29 tablet by Marilyn post ([facility] 00:00: 00:00 mouth Medic al 5-325) 00 :00 every 6 Center 5-325 mg (six) per tablet hours as needed for Pain for up to 10 days. Max Daily Amount: 4 tablets oxybutynin 2021-0 Yes 5mg Q.[id number] Take [address] [facility] (DITROPAN) - [id number] tablet (5 [facility] 5 MG tablet 00:00: 3D mg total) M edical 00 by mouth 3 Center (three) times daily. oxybutynin 2-0 Yes 5mg Q.[id number] Take [address] [facility] (DITROPAN) - [id number] tablet (5 [facility] 5 MG tablet 00:00: 3D mg total) M edical 00 by mouth 3 Center (three) times daily. tamsulosin 2021-2021- No .4mg QD Take [address] [facility] (FLOMAX) 04-24 capsule [facility] 0.4 mg Cap 00:00: 23:59 (0.4 mg Med ical 24 hr 00 :00 total) by Center capsule mouth daily for 30 days. tamsulosin 2021- No .4mg QD Take [address] [facility] (FLOMAX) 04-24 capsule [facility] 0.4 mg Cap 00:00: 23:59 (0.4 mg Med ical 24 hr 00 :00 total) by Center capsule mouth daily for 30 days. nitrofurant 2021- No 100mg Q.5D Take [address] [facility], 04-24 capsule [facility] macrocrysta 00:00: 23:59 (100 mg Me dical l-monohydra 00 :00 total) by [facility] ter te, mouth 2 (MACROBID) (two) 100 MG times capsule daily for 10 days. nitrofurant 2021- No 100mg Q.5D Take [address] [facility], 04-24 capsule [facility] macrocrysta 00:00: 23:59 (100 mg Me dical l-monohydra 00 :00 total) by [facility], mouth 2 (MACROBID) (two) 100 MG times capsule daily for 10 days. ketorolac 2021- No 10mg Take 1 [facility] (TOR[facility]OL[facility] 04-24 tablet (10 Ernesto es 10 mg 00:00: 23:59 mg total) Medica l tablet 00 :00 by mouth Center every 6 (six) hours as needed for Pain for up to 5 days. HYDROcodone 2021- No 1{tbl} Take [address] -acetaminop 04-24 tablet by Marilyn post ([facility] 00:00: 00:00 mouth Medic al 5-325) 00 :00 every 6 Center 5-325 mg (six) per tablet hours as needed for Pain for up to 10 days. Max Daily Amount: 4 tablets ketorolac 2021- No 10mg Take 1 [facility] (TORADOL) 04-24 tablet (10 Ernesto es 10 mg 00:00: 23:59 mg total) Medica l tablet 00 :00 by mouth Center every 6 (six) hours as needed for Pain for up to 5 days. HYDROcodone 2021- No 1{tbl} Take [address] -acetaminop 04-24 tablet by Marilyn post ([facility] 00:00: 00:00 mouth Medic al 5-325) 00 :00 every 6 Center 5-325 mg (six) per tablet hours as needed for Pain for up to 10 days. Max Daily Amount: 4 tablets phenazopyri 2021-2021- No 100mg Take [address] [facility] [address] dine 04-24 tablet [facility] (PYRIDIUM) 00:00: 23:59 (100 mg Med ical 100 MG 00 :00 total) by Center tablet mouth 3 (three) times daily as needed for Pain for up to 3 days. phenazopyri 2021-2021- No 100mg Take [address] dine 04-24 tablet [facility] (PYRIDIUM) 00:00: 23:59 (100 mg Med ical 100 MG 00 :00 total) by Center tablet mouth 3 (three) times daily as needed for Pain for up to 3 days. sulfamethox 2021- No 160mg{t Q.5D Take [address] [facility] azole-trime 04-19 rimetho tablet [facility] thoprim 00:00: 00:00 prim} (160 mg of Me dical (Bactrim 00 :00 trimethopr Cente r DS) 800-160 im total) mg per by mouth 2 tablet (two) times daily for 7 days. sulfamethox 2021-2021- No 160mg{t Q.5D Take [address] [facility] azole-trime 04-19 rimetho tablet [facility] thoprim 00:00: 00:00 prim} (160 mg of Me dical (Bactrim 00 :00 trimethopr Cente r DS) 800-160 im total) mg per by mouth 2 tablet (two) times daily for 7 days. HYDROcodone 2021- No 1{tbl} 1 tablet, [facility] -acetaminop 04-16 Oral, ity of sincere (NORCO) 19:00: 18:23 ONCE, 1 [place] 10-325 mg 00 :00 dose, On Medica l tablet 1 9/6/22 Branc h tablet at 1400, Routine ketorolac No 15mg 15 mg, Unive rs (TORADOL) 04-16 Slow IV ity of injection 19:00: 18:13 Push, [place] 15 mg 00 :00 ONCE, 1 Medical dose, On Branch e 04/16/22 at 1400, MEGHA proMETHazin 2021- No 25mg 25 mg, Uni vers e 04-16 Intramuscu ity of (PHENERGAN) 18:15: 18:23 lar, ONCE, [place] injection 00 :00 1 dose, On Medi darren 25 mg 04/16/22 Branch at 1315, MEGHA cefTRIAXone No 1000mg 1,000 mg, Univers (ROCEPHIN) 04-16 IV ity of 1,000 mg in 18:00: 18:30 Piggyback, [place] NaCl 0.9% 00 :00 ONCE, 1 Medical (NS) 50 mL dose, On [facility] h MINI-BAG Fri04/16/22 at 1300, Administer over 30 Minutes, 50 mL
R katherin for Anti-Infec tive: Documented Infection< br>Documen abdias Infection Site: Urine<br&g t;Duration of Therapy: Other (see Comments) iopamidol 2021- No [id number] 65mL 65 mL, U nivers (ISOVUE 04-16 Intravenou ity o f 370-500 mL) 17:15: 17:15 s, ONCE, 1 [place] injection 00 :00 dose, On Medica l 65 mL 04/16/22 Branch at 1215, Routine morpHINE (4 2021- No 4mg 4 mg, Slow Univers mg/mL) 04-16 IV Push, ity of injection 4 16:45: 16:00 ONCE, 1 [place] mg 00 :00 dose, On Medical e 04/16/22 Branch at 1145, STAT ondansetron 2021- No 4mg 4 mg, Slow Univers (ZOFRAN 04-16 IV Push, ity of (PF)) 16:45: 16:00 ONCE, 1 [place] injection 4 00 :00 dose, On Medi darren mg Fri04/16/22 Branch at 1145, MEGHA NaCl 0.9% 2021-0 2021- No 1000mL at 999 Uni vers (NS) bolus 04-16 09-06 mL/hr, ity of infusion 16:45: 18:30 1,000 mL, Renato as 1,000 mL 00 :00 IV Medical Infusion, Branch ONCE, 1 dose, On Fri04/16/22 at 1145, MEGHA ondansetron 2021-0 Yes [id number] 4mg Take 1 [facility] 4 mg 9-06 tablet by ity of disintegrat 00:00: mouth [place] ing tablet 00 every 8 Medica l (eight) Branch hours as needed for Nausea and Vomiting (N/V). proMETHazin 2021-0 Yes [id number] 25mg Take 1 [facility] e 25 mg 9-06 tablet by ity of tablet 00:00: mouth [place] 00 every 6 Medical (six) Branch hours as needed for N/V unresponsi ve to Ondansetro n. ketorolac 2021-0 Yes [id number] 10mg Take 1 Un manoj 10 mg 9-06 tablet by ity of tablet 00:00: mouth [place] 00 every 6 Medical (six) Branch hours as needed for Pain (scale 1-3) or Pain (scale 4-6). cephALEXin 2021-0 Yes [id number] 500mg Take 1 [facility] (KEFLEX) 9-06 capsule by ity o f 500 mg 00:00: mouth in [place] capsule 00 the Medical morning Branch and 1 capsule in the evening. ondansetron 2021-0 Yes [id number] 4mg Take 1 [facility] 4 mg 9-06 tablet by ity of disintegrat 00:00: mouth [place] ing tablet 00 every 8 Medica l (eight) Branch hours as needed for Nausea and Vomiting (N/V). proMETHazin 2021-0 Yes [id number] 25mg Take 1 [facility] e 25 mg 9-06 tablet by ity of tablet 00:00: mouth [place] 00 every 6 Medical (six) Branch hours as needed for N/V unresponsi ve to Ondansetro n. ketorolac 2021-0 Yes [id number] 10mg Take 1 Un manoj 10 mg 9-06 tablet by ity of tablet 00:00: mouth [place] 00 every 6 Medical (six) Branch hours as needed for Pain (scale 1-3) or Pain (scale 4-6). cephALEXin 2022-0 Yes [id number] 500mg Take 1 [facility] (KEFLEX) 9-06 capsule by ity o f 500 mg 00:00: mouth in [place] capsule 00 the Medical morning Branch and 1 capsule in the evening. ondansetron 2022-0 Yes [id number] 4mg Take 1 [facility] 4 mg 9-06 tablet by ity of disintegrat 00:00: mouth [place] ing tablet 00 every 8 Medica l (eight) Branch hours as needed for Nausea and Vomiting (N/V). proMETHazin 2022-0 Yes [id number] 25mg Take 1 Univers e 25 mg 9-06 tablet by ity of tablet 00:00: mouth [place] 00 every 6 Medical (six) Branch hours as needed for N/V unresponsi ve to Ondansetro n. ketorolac 2022-0 Yes [id number] 10mg Take 1 Un manoj 10 mg 9-06 tablet by ity of tablet 00:00: mouth [place] 00 every 6 Medical (six) Branch hours as needed for Pain (scale 1-3) or Pain (scale 4-6). cephALEXin 2022-0 Yes [id number] 500mg Take 1 [facility] (KEFLEX) 9-06 capsule by ity o f 500 mg 00:00: mouth in [place] capsule 00 the Medical morning Branch and 1 capsule in the evening. ondansetron 2022-0 Yes [id number] 4mg Take 1 [facility] 4 mg 9-06 tablet by ity of disintegrat 00:00: mouth [place] ing tablet 00 every 8 Medica l (eight) Branch hours as needed for Nausea and Vomiting (N/V). proMETHazin 2022-0 Yes [id number] 25mg Take 1 Univers e 25 mg 9-06 tablet by ity of tablet 00:00: mouth [place] 00 every 6 Medical (six) Branch hours as needed for N/V unresponsi ve to Ondansetro n. ketorolac 2022-0 Yes [id number] 10mg Take 1 Un manoj 10 mg 9-06 tablet by ity of tablet 00:00: mouth [place] 00 every 6 Medical (six) Branch hours as needed for Pain (scale 1-3) or Pain (scale 4-6). cephALEXin 2022-0 Yes [id number] 500mg Take 1 Univers (KEFLEX) 9-06 capsule by ity o f 500 mg 00:00: mouth in [place] capsule 00 the Medical morning Branch and 1 capsule in the evening. ondansetron 2021-0 Yes [id number] 4mg Take 1 [facility] 4 mg 9-06 tablet by ity of disintegrat 00:00: mouth [place] ing tablet 00 every 8 Medica l (eight) Branch hours as needed for Nausea and Vomiting (N/V). proMETHazin 2021-0 Yes [id number] 25mg Take 1 Univers e 25 mg 9-06 tablet by ity of tablet 00:00: mouth [place] 00 every 6 Medical (six) Branch hours as needed for N/V unresponsi ve to Ondansetro n. ketorolac 2021-0 Yes [id number] 10mg Take 1 Un manoj 10 mg 9-06 tablet by ity of tablet 00:00: mouth [place] 00 every 6 Medical (six) Branch hours as needed for Pain (scale 1-3) or Pain (scale 4-6). cephALEXin 2021-0 Yes [id number] 500mg Take 1 [facility] (KEFLEX) 9-06 capsule by ity o f 500 mg 00:00: mouth in [place] capsule 00 the Medical morning Branch and 1 capsule in the evening. ondansetron 2021-0 Yes [id number] 4mg Take 1 [facility] 4 mg 9-06 tablet by ity of disintegrat 00:00: mouth [place] ing tablet 00 every 8 Medica l (eight) Branch hours as needed for Nausea and Vomiting (N/V). proMETHazin 2-0 Yes [id number] 25mg Take 1 Univers e 25 mg 9-06 tablet by ity of tablet 00:00: mouth [place] 00 every 6 Medical (six) Branch hours as needed for N/V unresponsi ve to Ondansetro n. ketorolac 2022-0 Yes [id number] 10mg Take 1 Un manoj 10 mg 9-06 tablet by ity of tablet 00:00: mouth [place] 00 every 6 Medical (six) Branch hours as needed for Pain (scale 1-3) or Pain (scale 4-6). cephALEXin 2022-0 Yes [id number] 500mg Take 1 [facility] (KEFLEX) 9-06 capsule by ity o f 500 mg 00:00: mouth in [place] capsule 00 the Medical morning Branch and 1 capsule in the evening. ondansetron 0 Yes [id number] 4mg Take 1 [facility] 4 mg 9-06 tablet by ity of disintegrat 00:00: mouth [place] ing tablet 00 every 8 Medica l (eight) Branch hours as needed for Nausea and Vomiting (N/V). proMETHazin 2021-0 Yes [id number] 25mg Take 1 Univers e 25 mg 9-06 tablet by ity of tablet 00:00: mouth [place] 00 every 6 Medical (six) Branch hours as needed for N/V unresponsi ve to Ondansetro n. ketorolac 0 Yes [id number] 10mg Take 1 Un manoj 10 mg 9-06 tablet by ity of tablet 00:00: mouth [place] 00 every 6 Medical (six) Branch hours as needed for Pain (scale 1-3) or Pain (scale 4-6). ondansetron 0 Yes [id number] 4mg Take 1 [facility] 4 mg 9-06 tablet by ity of disintegrat 00:00: mouth [place] ing tablet 00 every 8 Medica l (eight) Branch hours as needed for Nausea and Vomiting (N/V). proMETHazin 0 Yes [id number] 25mg Take 1 Univers e 25 mg 9-06 tablet by ity of tablet 00:00: mouth [place] 00 every 6 Medical (six) Branch hours as needed for N/V unresponsi ve to Ondansetro n. ketorolac 2021-0 Yes [id number] 10mg Take 1 Un manoj 10 mg 9-06 tablet by ity of tablet 00:00: mouth [place] 00 every 6 Medical (six) Branch hours as needed for Pain (scale 1-3) or Pain (scale 4-6). ondansetron 2021-0 Yes [id number] 4mg Take 1 [facility] 4 mg 9-06 tablet by ity of disintegrat 00:00: mouth [place] ing tablet 00 every 8 Medica l (eight) Branch hours as needed for Nausea and Vomiting (N/V). proMETHazin 2021-0 Yes [id number] 25mg Take 1 Univers e 25 mg 9-06 tablet by ity of tablet 00:00: mouth [place] 00 every 6 Medical (six) Branch hours as needed for N/V unresponsi ve to Ondansetro n. ketorolac Yes [id number] 10mg Take 1 Un manoj 10 mg - tablet by ity of tablet 00:00: mouth [place] 00 every 6 Medical (six) Branch hours as needed for Pain (scale 1-3) or Pain (scale 4-6). cephALEXin 2021- No [id number] 500mg Take 1 [facility] (KEFLEX) 04-16 capsule by ity of 500 mg 00:00: 00:00 mouth in [place] capsule 00 :00 the Medical morning Branch and 1 capsule in the evening. HYDROcodone 2021- Yes [id number] 1{tbl} Take 1-2 [facility] -acetaminop 04-16 tablets by i ty of hen 5-325 00:00: 04:59 mouth [place] mg tablet 00 :00 every 6 Medical (six) Branch hours as needed for Pain (scale 4-6) for up to 7 days. Indication s: acute pain HYDROcodone 2021- Yes [id number] 1{tbl} Take 1-2 [facility] -acetaminop 04-16 tablets by i ty of hen 5-325 00:00: 04:59 mouth [place] mg tablet 00 :00 every 6 Medical (six) Branch hours as needed for Pain (scale 4-6) for up to 7 days. Indication s: acute pain tamsulosin 2021- No .4mg QD Take [address] [facility] (FLOMAX) 04-06 capsule [facility] 0.4 mg Cap 00:00: 00:00 (0.4 mg Med ical 24 hr 00 :00 total) by Center capsule mouth daily for 30 days. tamsulosin 2021- No .4mg QD Take [address] [facility] (FLOMAX) 04-06 capsule [facility] 0.4 mg Cap 00:00: 00:00 (0.4 mg Med ical 24 hr 00 :00 total) by Center capsule mouth daily for 30 days. traMADoL 2021- No 50mg Take [address] [facility] (ULTRAM) 50 04-06 tablet (50 L [facility]kes mg tablet 00:00: 23:59 mg total) Me dical 00 :00 by mouth Center every 6 (six) hours as needed for up to 10 days. Max Daily Amount: 200 mg oxybutynin 0 2021- No 5mg Take [address] [facility] (DITROPAN) 04-06 tablet (5 Ernesto es 5 MG tablet 00:00: 23:59 mg total) Medical 00 :00 by mouth 3 Center (three) times daily as needed (bladder spasm) for up to 10 days. traMADoL 2021- No 50mg Take [address] [facility] (ULTRAM) 50 04-06 tablet (50 L [facility]kes mg tablet 00:00: 23:59 mg total) Me dical 00 :00 by mouth Center every 6 (six) hours as needed for up to 10 days. Max Daily Amount: 200 mg oxybutynin 2021- No 5mg Take [address] [facility] (DITROPAN) 04-06 tablet (5 Ernesto es 5 MG tablet 00:00: 23:59 mg total) Medical 00 :00 by mouth 3 Center (three) times daily as needed (bladder spasm) for up to 10 days. nitrofurant 2021-2021- No 100mg Q.5D Take [address] [facility] [address] [facility], 04-06 capsule [facility] macrocrysta 00:00: 23:59 (100 mg Me dical l-monohydra 00 :00 total) by [facility], mouth 2 (MACROBID) (two) 100 MG times capsule daily for 7 days. nitrofurant 2021-0 2021- No 100mg Q.5D Take [address] [facility] oin, 04-06 capsule [facility] macrocrysta 00:00: 23:59 (100 mg Me dical l-monohydra 00 :00 total) by [facility], mouth 2 (MACROBID) (two) 100 MG times capsule daily for 7 days. nystatin 2021-0 2021- No [id number] Q.25D Take [address] [facility] (MYCOSTATIN 04-06 (500,000 Ernesto es ) 100,000 00:00: 23:59 Units Medica l unit/mL 00 :00 total) by Center suspension mouth 4 (four) times daily for 5 days. nystatin 2021-0 2021- No [id number] Q.25D Take [address] [facility] (MYCOSTATIN 04-06 09- (500,000 Ernesto es ) 100,000 00:00: 23:59 Units Medica l unit/mL 00 :00 total) by Center suspension mouth 4 (four) times daily for 5 days. phenazopyri 2021-0 2021- No 100mg Take [address] [facility] [address] [facility] dine 04-06 08-30 tablet [facility] (Pyridium) 00:00: 23:59 (100 mg Med ical 100 MG 00 :00 total) by Center tablet mouth 3 (three) times daily as needed for up to 3 days. phenazopyri 2021-0 2- No 100mg Take [address] [facility] [address] [facility] dine 04-06 08-30 tablet [facility] (Pyridium) 00:00: 23:59 (100 mg Med ical 100 MG 00 :00 total) by Center tablet mouth 3 (three) times daily as needed for up to 3 days. divalproex 2021-0 2021- No 500mg Take 500 U nivers 500 mg EC 8-26 08-26 mg by ity of tablet 14:54: 00:00 mouth [place] 13 :00 every 12 Medical (twelve) Branch hours. vilazodone 2021-0 2021- No Take by Uni vers 40 mg 8-26 08-26 mouth ity of tablet 14:54: 00:00 daily. [place] 13 :00 Medical Branch divalproex 2-0 Yes [id number] 500mg Take 1 [facility] 500 mg EC 8-26 tablet by ity o f tablet 00:00: mouth [place] 00 every 12 Medical (twelve) Branch hours. vilazodone 2-0 Yes [id number] 40mg Take 1 U nivers 40 mg 8-26 tablet by ity of tablet 00:00: mouth in [place] 00 the Medical morning. Branch divalproex 2-0 Yes [id number] 500mg Take 1 [facility] 500 mg EC 8-26 tablet by ity o f tablet 00:00: mouth [place] 00 every 12 Medical (twelve) Branch hours. vilazodone 2-0 Yes [id number] 40mg Take 1 U nivers 40 mg 8-26 tablet by ity of tablet 00:00: mouth in [place] 00 the Medical morning. Branch divalproex 2-0 Yes [id number] 500mg Take 1 [facility] 500 mg EC 8-26 tablet by ity o f tablet 00:00: mouth [place] 00 every 12 Medical (twelve) Branch hours. vilazodone 2021-0 Yes [id number] 40mg Take 1 U nivers 40 mg 8-26 tablet by ity of tablet 00:00: mouth in [place] 00 the Medical morning. Branch divalproex 2021-0 Yes [id number] 500mg Take 1 [facility] 500 mg EC 8-26 tablet by ity o f tablet 00:00: mouth [place] 00 every 12 Medical (twelve) Branch hours. vilazodone 2021-0 Yes [id number] 40mg Take 1 U nivers 40 mg 8-26 tablet by ity of tablet 00:00: mouth in [place] 00 the Medical morning. Branch vilazodone 2021-0 Yes [id number] 40mg Take 1 U nivers 40 mg 8-26 tablet by ity of tablet 00:00: mouth in [place] 00 the Medical morning. Branch vilazodone 2021-0 Yes [id number] 40mg Take 1 U nivers 40 mg 8-26 tablet by ity of tablet 00:00: mouth in [place] 00 the Medical morning. Branch vilazodone 2021-0 Yes [id number] 40mg Take 1 U nivers 40 mg 8-26 tablet by ity of tablet 00:00: mouth in [place] 00 the Medical morning. Branch vilazodone 2021-0 Yes [id number] 40mg Take 1 U nivers 40 mg 8-26 tablet by ity of tablet 00:00: mouth in [place] 00 the Medical morning. Branch vilazodone 2021-0 Yes [id number] 40mg Take 1 [facility] 40 mg 8-26 tablet by ity of tablet 00:00: mouth in [place] 00 the Medical morning. Branch vilazodone 2021-0 Yes [id number] 40mg Take 1 [facility] 40 mg 8-26 tablet by ity of tablet 00:00: mouth in [place] 00 the Medical morning. Branch divalproex 2021-0 2021- No [id number] 500mg Take 1 [facility] 500 mg EC 8-26 -23 tablet by ity of tablet 00:00: 00:00 mouth [place] 00 :00 every 12 Medical (twelve) Branch hours. lipase-prot 2021-0 Yes 1{capsu Take 1 U nivers ease-amylas 8-25 le} capsule by it y of e 10:21: mouth as [place] 36,000-114, 12 needed. Medic al 000- Take 2 Branch 180,000 capsules unit CpDR by mouth with meals and 1 with each snack. lipase-prot 202-0 Yes 1{capsu Take 1 [facility] nivers ease-amylas 8-25 le} capsule by it y of e 10:21: mouth as [place] 36,000-114, 12 needed. Medic al 000- Take 2 Branch 180,000 capsules unit CpDR by mouth with meals and 1 with each snack. lipase-prot 202-0 Yes 1{capsu Take 1 [facility] nivers ease-amylas 8-25 le} capsule by it y of e 10:21: mouth as [place] 36,000-114, 12 needed. Medic al 000- Take 2 Branch 180,000 capsules unit CpDR by mouth with meals and 1 with each snack. lipase-prot 2021-0 Yes 1{capsu Take 1 U nivers ease-amylas 8-25 le} capsule by it y of e 10:21: mouth as [place] 36,000-114, 12 needed. Medic al 000- Take 2 Branch 180,000 capsules unit CpDR by mouth with meals and 1 with each snack. lipase-prot 2021-0 Yes 1{capsu Take 1 U nivers ease-amylas 8-25 le} capsule by it y of e 10:21: mouth as [place] 36,000-114, 12 needed. Medic al 000- Take 2 Branch 180,000 capsules unit CpDR by mouth with meals and 1 with each snack. lipase-prot 2021-0 Yes 1{capsu Take 1 [facility] nivers ease-amylas 8-25 le} capsule by it y of e 10:21: mouth as [place] 36,000-114, 12 needed. Medic al 000- Take 2 Branch 180,000 capsules unit CpDR by mouth with meals and 1 with each snack. lipase-prot 2021-0 Yes 1{capsu Take 1 U nivers ease-amylas 8-25 le} capsule by it y of e 10:21: mouth as [place] 36,000-114, 12 needed. Medic al 000- Take 2 Branch 180,000 capsules unit CpDR by mouth with meals and 1 with each snack. lipase-prot 2021-0 Yes 1{capsu Take 1 [facility] nivers ease-amylas 8-25 le} capsule by it y of e 10:21: mouth as [place] 36,000-114, 12 needed. Medic al 000- Take 2 Branch 180,000 capsules unit CpDR by mouth with meals and 1 with each snack. lipase-prot 2022-0 Yes 1{capsu Take 1 U nivers ease-amylas 8-25 le} capsule by it y of e 10:21: mouth as [place] 36,000-114, 12 needed. Medic al 000- Take 2 Branch 180,000 capsules unit CpDR by mouth with meals and 1 with each snack. lipase-prot 2022-0 Yes 1{capsu Take 1 [facility] nivers ease-amylas 8-25 le} capsule by it y of e 10:21: mouth as [place] 36,000-114, 12 needed. Medic al 000- Take 2 Branch 180,000 capsules unit CpDR by mouth with meals and 1 with each snack. lipase-prot 2022-0 Yes 1{capsu Take 1 [facility] ease-amylas 8-25 le} capsule by it y of e 10:21: mouth as [place] 36,000-114, 12 needed. Medic al 000- Take 2 Branch 180,000 capsules unit CpDR by mouth with meals and 1 with each snack. clonazePAM 2022-0 Yes 1mg Take 1 mg Un manoj 1 mg tablet 8-25 by mouth 3 it y of 10:20: (three) [place] 05 times Medical daily as Branch needed. clonazePAM 2022-0 Yes 1mg Take 1 mg Un manoj 1 mg tablet 8-25 by mouth 3 it y of 10:20: (three) [place] 05 times Medical daily as Branch needed. clonazePAM 2022-0 Yes 1mg Take 1 mg Un manoj 1 mg tablet 8-25 by mouth 3 it y of 10:20: (three) [place] 05 times Medical daily as Branch needed. clonazePAM 2022-0 Yes 1mg Take 1 mg Un manoj 1 mg tablet 8-25 by mouth 3 it y of 10:20: (three) [place] 05 times Medical daily as Branch needed. clonazePAM 2022-0 Yes 1mg Take 1 mg Un manoj 1 mg tablet 8-25 by mouth 3 it y of 10:20: (three) [place] 05 times Medical daily as Branch needed. clonazePAM 2022-0 Yes 1mg Take 1 mg Un manoj 1 mg tablet 8-25 by mouth 3 it y of 10:20: (three) [place] 05 times Medical daily as Branch needed. clonazePAM 2022-0 Yes 1mg Take 1 mg Un maonj 1 mg tablet 8-25 by mouth 3 it y of 10:20: (three) [place] 05 times Medical daily as Branch needed. clonazePAM 2022-0 Yes 1mg Take 1 mg Un manoj 1 mg tablet 8-25 by mouth 3 it y of 10:20: (three) [place] 05 times Medical daily as Branch needed. clonazePAM 2022-0 Yes 1mg Take 1 mg Un manoj 1 mg tablet 8-25 by mouth 3 it y of 10:20: (three) [place] 05 times Medical daily as Branch needed. clonazePAM 2022-0 Yes 1mg Take 1 mg Un manoj 1 mg tablet 8-25 by mouth 3 it y of 10:20: (three) [place] 05 times Medical daily as Branch needed. clonazePAM 2022-0 Yes 1mg Take 1 mg Un manoj 1 mg tablet 8-25 by mouth 3 it y of 10:20: (three) [place] 05 times Medical daily as Branch needed. amoxicillin 2021-0 2- No 1{tbl} Q.5D Take [address] -clavulanat 03-31 tablet by Marilyn kes e 00:00: 23:59 mouth 2 Medical (AUGMENTIN) 00 :00 (two) Center 875-125 mg times per tablet daily for 7 days. amoxicillin 2021-0 2- No 1{tbl} Q.5D Take [address] -clavulanat 03-31 tablet by Marilyn kes e 00:00: 23:59 mouth 2 Medical (AUGMENTIN) 00 :00 (two) Center 875-125 mg times per tablet daily for 7 days. phenazopyri 2021-0 2021- No 100mg Take [address] [facility] [address] [facility] 03-31 tablet [facility] (Pyridium) 00:00: 00:00 (100 mg Med ical 100 MG 00 :00 total) by Center tablet mouth 3 (three) times daily as needed for up to 3 days. oxybutynin 2021-0 2- No 5mg Take [address] [facility] (DITROPAN) 03-31 tablet (5 Ernesto es 5 MG tablet 00:00: 00:00 mg total) Medical 00 :00 by mouth 3 Center (three) times daily as needed (bladder spasm) for up to 10 days. traMADoL 2021- No 50mg Take [address] [facility] (ULTRAM) 50 03-31 tablet (50 [facility] mg tablet 00:00: 00:00 mg total) Me dical 00 :00 by mouth Center every 6 (six) hours as needed for up to 10 days. Max Daily Amount: 200 mg phenazopyri 2021- No 100mg Take [address] [facility] [address] [facility]ine 03-31 tablet [facility] (Pyridium) 00:00: 00:00 (100 mg Med ical 100 MG 00 :00 total) by Center tablet mouth 3 (three) times daily as needed for up to 3 days. oxybutynin 2021- No 5mg Take [address] [facility] (DITROPAN) 03-31 tablet (5 Ernesto es 5 MG tablet 00:00: 00:00 mg total) Medical 00 :00 by mouth 3 Center (three) times daily as needed (bladder spasm) for up to 10 days. traMADoL 2021- No 50mg Take [address] [facility] (ULTRAM) 50 03-31 tablet (50 [facility] mg tablet 00:00: 00:00 mg total) Me dical 00 :00 by mouth Center every 6 (six) hours as needed for up to 10 days. Max Daily Amount: 200 mg ketorolac 2021- No 10mg Take [facility] (TORADOL) 03-31 tablet (10 Ernesto es 10 mg 00:00: 23:59 mg total) Medica l tablet 00 :00 by mouth Center every 6 (six) hours as needed for Pain for up to 5 days. ketorolac 2021- No 10mg Take 1 [facility] (TORADOL) 03-31 tablet (10 Ernesto es 10 mg 00:00: 23:59 mg total) Medica l tablet 00 :00 by mouth Center every 6 (six) hours as needed for Pain for up to 5 days. cefdinir 2021- No [id number] 600mg Take 2 [facility] nivers 300 mg 03-29 capsules ity of capsule 00:00: 04:59 by mouth [place] 00 :00 in the Medical morning Branch for 7 days. tamsulosin 2021- No .4mg QD Take [address] [facility] (FLOMAX) 03-21 capsule [facility] 0.4 mg Cap 00:00: 00:00 (0.4 mg Med ical 24 hr 00 :00 total) by Center capsule mouth daily for 30 days. tamsulosin 2021- No .4mg QD Take [address] [facility] (FLOMAX) 03-21 capsule [facility] 0.4 mg Cap 00:00: 00:00 (0.4 mg Med ical 24 hr 00 :00 total) by Center capsule mouth daily for 30 days. HYDROcodone 2021- No 1{tbl} Take [address] -acetaminop 03-21 tablet by Marilyn post (NORCO 00:00: 23:59 mouth Medic al 5-325) 00 :00 every 6 Center 5-325 mg (six) per tablet hours as needed for Pain for up to 10 days. Max Daily Amount: 4 tablets HYDROcodone 2021- No 1{tbl} Take [address] -acetaminop 03-21 tablet by Marilyn post (NORCO 00:00: 23:59 mouth Medic al 5-325) 00 :00 every 6 Center 5-325 mg (six) per tablet hours as needed for Pain for up to 10 days. Max Daily Amount: 4 tablets ketorolac 2021- No 10mg Take 1 [facility] (TORADOL) 03-21 tablet (10 Ernesto es 10 mg 00:00: 23:59 mg total) Medica l tablet 00 :00 by mouth Center every 6 (six) hours as needed for Pain for up to 5 days. amoxicillin 2021- No 1{tbl} Take [address] -clavulanat 03-21 tablet by Marilyn horvath 00:00: 23:59 mouth Medical (AUGMENTIN) 00 :00 every 12 Cent er 875-125 mg (twelve) per tablet hours for 5 days. senna-docus 2021- No 2{tbl} QD Take [address] ate 8-11 08-16 tablets by LuQuibly (SENOKOT S) 00:00: 23:59 mouth Medi darren 8.6-50 mg 00 :00 nightly Center per tablet for 5 days. ketorolac 2021- No 10mg Take 1 [facility] (TORADOL) 03-21 tablet (10 Ernesto es 10 mg 00:00: 23:59 mg total) Medica l tablet 00 :00 by mouth Center every 6 (six) hours as needed for Pain for up to 5 days. amoxicillin 2021- No 1{tbl} Take [address] -clavulanat 03-21 tablet by Marilyn kes e 00:00: 23:59 mouth Medical (AUGMENTIN) 00 :00 every 12 Cent er 875-125 mg (twelve) per tablet hours for 5 days. senna-docus 2021- No 2{tbl} QD Take [address] ate 03-21 tablets by Dionte (SENOKOT S) 00:00: 23:59 mouth Medi darren 8.6-50 mg 00 :00 nightly Center per tablet for 5 days. phenazopyri 2021- No 100mg Take [address] [facility] [address] [facility]ine 03-21 tablet [facility] (PYRIDIUM) 00:00: 23:59 (100 mg Med ical 100 MG 00 :00 total) by Center tablet mouth 3 (three) times daily as needed for Pain for up to 3 days. phenazopyri 2021- No 100mg Take [address] [facility] [address] [facility]ine 03-21 tablet [facility] (PYRIDIUM) 00:00: 23:59 (100 mg Med ical 100 MG 00 :00 total) by Center tablet mouth 3 (three) times daily as needed for Pain for up to 3 days. traMADoL 2021- No 50mg Take [address] [facility] (ULTRAM) 50 03-14 tablet (50 [facility] mg tablet 00:00: 23:59 mg total) Me dical 00 :00 by mouth Center every 6 (six) hours as needed for Pain for up to 10 days. Max Daily Amount: 200 mg oxybutynin 2021- No 5mg Take [address] [facility] (DITROPAN) 03-14 tablet (5 Ernesto es 5 MG tablet 00:00: 23:59 mg total) Medical 00 :00 by mouth 3 Center (three) times daily as needed (bladder spasm) for up to 10 days. traMADoL 2021- No 50mg Take [address] [facility] (ULTRAM) 50 03-14 tablet (50 [facility] mg tablet 00:00: 23:59 mg total) Me dical 00 :00 by mouth Center every 6 (six) hours as needed for Pain for up to 10 days. Max Daily Amount: 200 mg oxybutynin 2021- No 5mg Take [address] [facility] (DITROPAN) 03-14 tablet (5 Ernesto es 5 MG tablet 00:00: 23:59 mg total) Medical 00 :00 by mouth 3 Center (three) times daily as needed (bladder spasm) for up to 10 days. ketorolac 2021- No 10mg Take 1 [facility] (TORADOL) 03-14 tablet (10 Ernesto es 10 mg 00:00: 00:00 mg total) Medica l tablet 00 :00 by mouth Center every 6 (six) hours as needed for Pain for up to 5 days. phenazopyri 2021- No 100mg Take [address] [facility] [address] [facility]ine 03-14 tablet [facility] (PYRIDIUM) 00:00: 00:00 (100 mg Med ical 100 MG 00 :00 total) by Center tablet mouth 3 (three) times daily as needed for Pain for up to 3 days. ketorolac 2021- No 10mg Take 1 [facility] (TORADOL) 03-14 tablet (10 Ernesto es 10 mg 00:00: 00:00 mg total) Medica l tablet 00 :00 by mouth Center every 6 (six) hours as needed for Pain for up to 5 days. phenazopyri 2021- No 100mg Take [address] [facility] [address] [facility]ine 03-14 tablet [facility] (PYRIDIUM) 00:00: 00:00 (100 mg Med ical 100 MG 00 :00 total) by Center tablet mouth 3 (three) times daily as needed for Pain for up to 3 days. amoxicillin 2021-2021- No 1{tbl} Q.5D Take [address] -clavulanat - 08-05 tablet by Marilyn kes e 00:00: 23:59 mouth 2 Medical (AUGMENTIN) 00 :00 (two) Center 875-125 mg times per tablet daily for 7 days. amoxicillin 2021- No 1{tbl} Q.5D Take [address] -clavulanat 03-08 08-05 tablet by Marilyn kes e 00:00: 23:59 mouth 2 Medical (AUGMENTIN) 00 :00 (two) Center 875-125 mg times per tablet daily for 7 days. clotrimazol 2021- No Flank pain Apply 0.[address] [facility] 03-01 09-09 grams [facility] (LOTRIMIN) 00:00: 00:00 twice Medic al 1 % cream 00 :00 daily. Center clotrimazol 2021- No Flank pain Apply 0.[address] [facility] 03-01 09-09 grams [facility] (LOTRIMIN) 00:00: 00:00 twice Medic al 1 % cream 00 :00 daily. Center ciclopirox 2021- No Q.5D Apply [facility] (LOPROX[facility] 02-26 topically [facility] 0.77 % 00:00: 00:00 2 (two) Medical cream 00 :00 times Center daily. ciclopirox 2021- No Q.5D Apply [facility] (LOPROX) 02-26 topically [facility] 0.77 % 00:00: 00:00 2 (two) Medical cream 00 :00 times Center daily. fluconazole 2021-2021- No 150mg Take [address] [facility] [address] [facility] (DIFLUCAN) 02-26 tablet [facility] 150 MG 00:00: 23:59 (150 mg Medical tablet 00 :00 total) by Center mouth once for 1 dose. fluconazole 2021-2021- No 150mg Take [address] [facility] [address] [facility] (DIFLUCAN) 02-26- tablet [facility] 150 MG 00:00: 23:59 (150 mg Medical tablet 00 :00 total) by Center mouth once for 1 dose. amoxicillin 2021-2021- No 1{tbl} Q.5D Take [address] -clavulanat 6-14 06-17 tablet by Marilyn kes e 00:00: 23:59 mouth 2 Medical (AUGMENTIN) 00 :00 (two) Center 875-125 mg times per tablet daily for 3 days. amoxicillin 2021- No 1{tbl} Q.5D Take [address] -clavulanat 01-22 tablet by Marilyn kes e 00:00: 23:59 mouth 2 Medical (AUGMENTIN) 00 :00 (two) Center 875-125 mg times per tablet daily for 3 days. proMETHazin Yes [id number] 25mg Insert 1 [facility] 25 mg 6-07 Supp[facility] [place] rect[place] Medical every 4 Branch (four) hours as needed for Nausea and Vomiting (N/V). proMETHazin Yes [id number] 25mg Insert 1 [facility] 25 mg 6-07 Suppositor [facility] [place] suppository 00:[place] rect[place] Medical every 4 Branch (four) hours as needed for Nausea and Vomiting (N/V). proMETHazin Yes [id number] 25mg Insert 1 [facility] 25 mg 6-07 Suppositor [facility] of suppository 00:[place]: [place] rect[place] Medical every 4 Branch (four) hours as needed for Nausea and Vomiting (N/V). proMETHazin Yes [id number] 25mg Insert 1 [facility] 25 mg 6-07 Suppositor [facility] of suppository 00:00: [place] rect[place] Medical every 4 Branch (four) hours as needed for Nausea and Vomiting (N/V). proMETHazin Yes [id number] 25mg Insert 1 [facility] 25 mg 6-07 Suppositor [facility] of suppository 00:[place]: [place] rectum Medical every 4 Branch (four) hours as needed for Nausea and Vomiting (N/V). proMETHazin Yes [id number] 25mg Insert 1 [facility] 25 mg 6-07 Suppositor [facility] of suppository 00:00: [place] rectum Medical every 4 Branch (four) hours as needed for Nausea and Vomiting (N/V). proMETHazin Yes [id number] 25mg Insert 1 [facility] 25 mg 6-07 Suppositor [facility]y of suppository 00:00: [place] rectum Medical every 4 Branch (four) hours as needed for Nausea and Vomiting (N/V). proMETHazin Yes [id number] 25mg Insert 1 [facility] 25 mg 6-07 Suppositor [facility]y of suppository 00:00: [place] rectum Medical every 4 Branch (four) hours as needed for Nausea and Vomiting (N/V). proMETHazin Yes [id number] 25mg Insert 1 [facility] 25 mg 6-07 Suppositor [facility]y of suppository 00:00: [place] rectum Medical every 4 Branch (four) hours as needed for Nausea and Vomiting (N/V). proMETHazin Yes [id number] 25mg Insert 1 [facility] 25 mg 6-07 Suppositor [facility]y of suppository 00:00: [place] rectum Medical every 4 Branch (four) hours as needed for Nausea and Vomiting (N/V). proMETHazin Yes [id number] 25mg Insert 1 [facility] 25 mg 6-07 Suppositor [facility] of suppository 00:00: [place] rect[place] Medical every 4 Branch (four) hours as needed for Nausea and Vomiting (N/V). sulfamethox 2021- No 160mg{t Q.5D Take [address] [facility] azole-trime 01-10 06-09 rimetho tablet Marilyn kes thoprim 00:00: 23:59 prim} (160 mg of Me dical (BACTRIM 00 :00 trimethopr Cente r DS) 800-160 im total) mg per by mouth 2 tablet (two) times daily for 7 days smx-tmp DS (BACTRIM) 800-160 mg tabs (1tab q12 D10). sulfamethox 2021- No 160mg{t Q.5D Take [address] [facility] azole-trime 01-10-09 rimetho tablet Marilyn kes thoprim 00:00: 23:59 prim} (160 mg of Me dical (BACTRIM 00 :00 trimethopr Cente r DS) 800-160 im total) mg per by mouth 2 tablet (two) times daily for 7 days smx-tmp DS (BACTRIM) 800-160 mg tabs (1tab q12 D10). ketorolac 2021-0 2021- No 10mg Take 1 [facility] (TORADOL) 01-10-07 tablet (10 Ernesto es 10 mg 00:00: 23:59 mg total) Medica l tablet 00 :00 by mouth Center every 8 (eight) hours as needed for Pain for up to 5 days. ketorolac 2021-0 2021- No 10mg Take 1 [facility] (TORADOL) 01-10 06-07 tablet (10 Ernesto es 10 mg 00:00: 23:59 mg total) Medica l tablet 00 :00 by mouth Center every 8 (eight) hours as needed for Pain for up to 5 days. phenazopyri 2021-0 2021- No 200mg [id number] Take [address] [facility] dine 01-10- [id number] tablet [facility] (PYRIDIUM) 00:00: 23:59 3D (200 mg Med ical 200 MG 00 :00 total) by Center tablet mouth 3 (three) times daily for 2 days. phenazopyri 2021-0 2021- No 200mg Q.[id number] Take [address] [facility] dine 01-10- [id number] tablet [facility] (PYRIDIUM) 00:00: 23:59 3D (200 mg Med ical 200 MG 00 :00 total) by Center tablet mouth 3 (three) times daily for 2 days. HYDROcodone 2021-0 2021- No 1{tbl} Take [address] -acetaminop 5-29 06-08 tablet by Marilyn post ([employer]) 00:00: 23:59 mouth Medi darren 5-325 mg 00 :00 every 6 Center per tablet (six) hours as needed for Pain for up to 10 days. Max Daily Amount: 4 tablets HYDROcodone 2021-0 2021- No 1{tbl} Take [address] -acetaminop 5-29 06-08 tablet by Marilyn post ([employer]) 00:00: 23:59 mouth Medi darren 5-325 mg 00 :00 every 6 Center per tablet (six) hours as needed for Pain for up to 10 days. Max Daily Amount: 4 tablets ketorolac 2021-2021- No 10mg Take 1 [facility] (TORADOL) 01-06- tablet (10 Ernesto es 10 mg 00:00: 00:00 mg total) Medica l tablet 00 :00 by mouth Center every 6 (six) hours as needed for Pain for up to 5 days. ketorolac 2021-0 2021- No 10mg Take 1 [facility] (TORADOL) 01-06- tablet (10 Ernesto es 10 mg 00:00: 00:00 mg total) Medica l tablet 00 :00 by mouth Center every 6 (six) hours as needed for Pain for up to 5 days. acetaminoph 2021- No Acute 1{tbl} Take [address] [facility] en-codeine 01-04 bilateral tablet by [facility] (Tylenol-Co 00:00: 23:59 back pain, mouth Medical deine #3) 00 :00 unspecified every 4 Center 300-30 mg back (four) per tablet location hours as needed for Pain for up to 10 days. Max Daily Amount: 6 tablets tamsulosin 2021- No .4mg QD Take [address] [facility] (FLOMAX) 01-04 capsule [facility] 0.4 mg Cap 00:00: 23:59 (0.4 mg Med ical 24 hr 00 :00 total) by Center capsule mouth daily for 10 days. oxybutynin 2021- No 5mg Take [address] [facility] (DITROPAN) 01-04 tablet (5 Ernesto es 5 MG tablet 00:00: 23:59 mg total) Medical 00 :00 by mouth 3 Center (three) times daily as needed (bladder spasm) for up to 10 days. nitrofurant 2021- No 100mg Q.5D Take [address] [facility] [address] [facility] oin, 01-04 capsule [facility] macrocrysta 00:00: 23:59 (100 mg Me dical l-monohydra 00 :00 total) by [facility] te, mouth 2 (MACROBID) (two) 100 MG times capsule daily for 10 days. acetaminoph 2021- No Acute 1{tbl} Take [address] [facility] en-codeine 01-04 bilateral tablet by [facility] (Tylenol-Co 00:00: 23:59 back pain, mouth Medical deine #3) 00 :00 unspecified every 4 Center 300-30 mg back (four) per tablet location hours as needed for Pain for up to 10 days. Max Daily Amount: 6 tablets tamsulosin 2021- No .4mg QD Take [address] [facility] (FLOMAX) 01-04- capsule [facility] 0.4 mg Cap 00:00: 23:59 (0.4 mg Med ical 24 hr 00 :00 total) by Center capsule mouth daily for 10 days. oxybutynin 2021- No 5mg Take [address] [facility] (DITROPAN) 01-04- tablet (5 Ernesto es 5 MG tablet 00:00: 23:59 mg total) Medical 00 :00 by mouth 3 Center (three) times daily as needed (bladder spasm) for up to 10 days. nitrofurant 2021- No 100mg Q.5D Take [address] [facility] [address] [facility] oin, 01-04 capsule [facility] macrocrysta 00:00: 23:59 (100 mg Me dical l-monohydra 00 :00 total) by Jean [facility] vivien te, mouth 2 (MACROBID) (two) 100 MG times capsule daily for 10 days. phenazopyri 2021-2021- No 100mg Take [address] [facility] [address] [facility] dine 01-04 05-30 tablet [facility] (PYRIDIUM) 00:00: 23:59 (100 mg Med ical 100 MG 00 :00 total) by Center tablet mouth 3 (three) times daily as needed for Pain for up to 3 days. phenazopyri 2021-0 2021- No 100mg Take [address] [facility] [address] [facility] dine - 05-30 tablet [facility] (PYRIDIUM) 00:00: 23:59 (100 mg Med ical 100 MG 00 :00 total) by Center tablet mouth 3 (three) times daily as needed for Pain for up to 3 days. amoxicillin 2021-2021- No 1{tbl} Q.5D Take [address] -clavulanat 5-28 12-27 tablet by Marilyn kes e 00:00: 00:00 mouth 2 Medical (AUGMENTIN) 00 :00 (two) Center 875-125 mg times per tablet daily for 7 days. amoxicillin 2021- No 1{tbl} Q.5D Take [address] -clavulanat 5-20 05-27 tablet by Marilyn kelelo e 00:00: 00:00 mouth 2 Medical (AUGMENTIN) 00 :00 (two) Center 875-125 mg times per tablet daily for 7 days. acetaminoph 2021- No Acute 1{tbl} Take [address] [facility] en-codeine 5-18 05-27 bilateral tablet by Dionte (Tylenol-Co 00:00: 00:00 back pain, mouth Medical deine #3) 00 :00 unspecified every 4 Center 300-30 mg back (four) per tablet location hours as needed for Pain for up to 10 days. Max Daily Amount: 6 tablets acetaminoph 2021- No Acute 1{tbl} Take [address] [facility] en-codeine 5-18 05-27 bilateral tablet by Luhali (Tylenol-Co 00:00: 00:00 back pain, mouth Medical deine #3) 00 :00 unspecified every 4 Center 300-30 mg back (four) per tablet location hours as needed for Pain for up to 10 days. Max Daily Amount: 6 tablets ondansetron 2021- No 4mg Take [address] [facility] (ZOFRAN) 4 5-17 05-17 by mouth 2 Marilyn kes MG tablet 08:29: 00:00 (two) Medica l 57 :00 times Center daily as needed for Nausea. ondansetron 2021- No 4mg Take [address] [facility] (ZOFRAN) 4 5-17 05-17 by mouth 2 Marilyn kes MG tablet 08:29: 00:00 (two) Medica l 57 :00 times Center daily as needed for Nausea. traZODone 2021-2021- No 100mg Take [address] [facility] [address] [facility] (DESYREL) 5-17 05-17 mg by [facility] 100 MG 08:29: 00:00 mouth Medical tablet 54 :00 Takes 2 Center tablets by mouth at night. traZODone 2021-2021- No 100mg Take [address] [facility] [address] [facility] (DESYREL) 5-17 05-17 mg by [facility] 100 MG 08:29: 00:00 mouth Medical tablet 54 :00 Takes 2 Center tablets by mouth at night. pancrelipas 2021-2- No [id number]{ Take [facility], 5-17 05-17 lipase} 12,000 [facility] Lip-Prot-Am 08:29: 00:00 units of M edical yl, (CREON) 32 :[address] 12,000-38,0 mouth 3 00 -60,000 (three) unit CpDR times capsule daily with meals. pancrelipas 2021-0 2- No [id number]{ Take [facility], 5-17 05-17 lipase} 12,000 [facility] Lip-Prot-Am 08:29: 00:00 units of M edical yl, (CREON) 32 :[address] 12,000-38,0 mouth 3 00 -60,000 (three) unit CpDR times capsule daily with meals. metoclopram 2021-2021- No 5mg Take [address] [facility] teresa 5-17 05-17 by mouth 3 [facility] (REGLAN) 5 08:29: 00:00 (three) Med ical MG tablet 11 :00 times Center daily with meals. metoclopram 2021-0 2021- No 5mg Take [address] [facility] teresa 5-17 05-17 by mouth 3 [facility] (REGLAN) 5 08:29: 00:00 (three) Med ical MG tablet 11 :00 times Center daily with meals. lisdexamfet 2021-2021- No 50mg QD Take [address] [facility] amine 5-17 05-17 by mouth [facility] (VYVANSE) 08:29: 00:00 every Medica l 50 MG 05 :00 morning. Center capsule lisdexamfet 2021-0 2022- No 50mg QD Take [address] [facility] amine 5-17 05-17 by mouth [facility] (VYVANSE) 08:29: 00:00 every Medica l 50 MG 05 :00 morning. Center capsule escitalopra 2-0 2- No 20mg QD Take [address] [facility] m oxalate 5-17 05-17 by mouth [facility] (LEXAPRO) 08:28: 00:00 daily. Medic al 20 MG 52 :00 Center tablet escitalopra 2021-0 2022- No 20mg QD Take [address] [facility] m oxalate 5-17 05-17 by mouth [facility] (LEXAPRO) 08:28: 00:00 daily. Medic al 20 MG 52 :00 Center tablet cloNIDine 2021- No .1mg QD Take 0.[address] [facility] HCl 5-17 05-17 mg by [facility] (CATAPRES) 08:28: 00:00 mouth Medic al 0.1 MG 40 :00 daily. Center tablet cloNIDine 2021- No .1mg QD Take 0.[address] [facility] HCl 5-17 05-17 mg by Luhali (CATAPRES) 08:28: 00:00 mouth Medic al 0.1 MG 40 :00 daily. Center tablet Creon 2021-[address] [facility] 36,000-114, 5-17 [facility] 000- 00:00: Medical 180,000 00 Center unit CpDR capsule Creon 2021-[address] [facility] 36,000-114, 5-17 [facility] 000- 00:00: Medical 180,000 00 Center unit CpDR capsule acetaminoph 2021- No Acute 1{tbl} Take [address] [facility] en-codeine 5-17 05-18 bilateral tablet by Dionte (Tylenol-Co 00:00: 00:00 back pain, mouth Medical deine #3) 00 :00 unspecified every 4 Center 300-30 mg back (four) per tablet location hours as needed for Pain for up to 10 days. Max Daily Amount: 6 tablets acetaminoph 2021- No Acute 1{tbl} Take [address] [facility] en-codeine 5-17 05-18 bilateral tablet by Dionte (Tylenol-Co 00:00: 00:00 back pain, mouth Medical deine #3) 00 :00 unspecified every 4 Center 300-30 mg back (four) per tablet location hours as needed for Pain for up to 10 days. Max Daily Amount: 6 tablets acetaminoph 2021- No 1{tbl} Take [address] en-codeine 5-17 05-17 tablet by Ernesto ambrose (Tylenol-Co 00:00: 00:00 mouth Medi darren deine #3) 00 :00 every 4 Center 300-30 mg (four) per tablet hours as needed for Pain for up to 10 days. Max Daily Amount: 6 tablets acetaminoph 2021- No 1{tbl} Take [address] en-codeine 5-17 05-17 tablet by Ernesto es (Tylenol-Co 00:00: 00:00 mouth Medi darren deine #3) 00 :00 every 4 Center 300-30 mg (four) per tablet hours as needed for Pain for up to 10 days. Max Daily Amount: 6 tablets acetaminoph 2021-2021- No 1{tbl} Take [address] en-codeine 5-17 05-17 tablet by Ernesto es (Tylenol-Co 00:00: 00:00 mouth Medi darren deine #3) 00 :00 every 4 Center 300-30 mg (four) per tablet hours as needed for Pain for up to 10 days. Max Daily Amount: 6 tablets acetaminoph 2021-2021- No 1{tbl} Take [address] en-codeine 5-17 05-17 tablet by Ernesto es (Tylenol-Co 00:00: 00:00 mouth Medi darren deine #3) 00 :00 every 4 Center 300-30 mg (four) per tablet hours as needed for Pain for up to 10 days. Max Daily Amount: 6 tablets acetaminoph 2021-2021- No 1{tbl} Take [address] en-codeine 5-17 05-17 tablet by Ernesto es (Tylenol-Co 00:00: 00:00 mouth Medi darren deine #3) 00 :00 every 4 Center 300-30 mg (four) per tablet hours as needed for Pain for up to 10 days. Max Daily Amount: 6 tablets acetaminoph 2021-2021- No 1{tbl} Take [address] en-codeine 5-17 05-17 tablet by Ernesto es (Tylenol-Co 00:00: 00:00 mouth Medi darren deine #3) 00 :00 every 4 Center 300-30 mg (four) per tablet hours as needed for Pain for up to 10 days. Max Daily Amount: 6 tablets famotidine 2021-0 Yes 40mg Take [address] [facility] (PEPCID) 40 4-26 by mouth [facility] MG tablet 00:00: every Medical 00 night as Center needed . montelukast 2021-[address] [facility] (SINGULAIR) 4-26 [facility] 10 mg 00:00: Medical tablet 00 Center famotidine Yes 40mg Take [address] (PEPCID) 40 -26 by mouth [facility] MG tablet 00:00: every Medical 00 night as Center needed . montelukast Yes [facility] (SINGULAIR) 4-26 [facility] 10 mg 00:00: Medical tablet 00 Center All Day 2021- No 10mg QD Take [address] [facility] Allergy, 12-04- by mouth [facility] cetirizine, 00:00: 00:00 daily . Me dical 10 mg 00 :00 Center tablet All Day 2021- No 10mg QD Take [address] [facility] Allergy, 12-04- by mouth [facility] cetirizine, 00:00: 00:00 daily . Me dical 10 mg 00 :00 Center tablet divalproex Yes 500mg Take [address] (DEPAKOTE) 1-04 mg by [facility] 500 MG EC 14:00: mouth. Medica l tablet 22 Center divalproex Yes 500mg Take [address] (DEPAKOTE) 1-04 mg by [facility] 500 MG EC 14:00: mouth. Medica l tablet 22 Center escitalopra Yes 20mg QD Take [address] [facility] oxalate 1-04 by mouth [facility] (LEXAPRO) 13:56: daily. Medica l 20 MG 53 Center tablet clonazePAM 0 Yes .25mg Take 0.[address] (KlonoPIN) 1-04 mg by [facility] 1 MG tablet 13:56: mouth 3 Med ical 53 (three) Center times daily as needed for Anxiety . traZODone Yes 100mg Take [address] [facility] (DESYREL) 1-04 mg by [facility] 100 MG 13:56: mouth Medical tablet 53 Takes 2 Center tablets by mouth at night. metoclopram 0 Yes 5mg Take [address] teresa 1-04 by mouth 3 [facility] (REGLAN) 5 13:56: (three) Medi darren MG tablet 53 times Center daily with meals. pancrelipas Yes [id number]{ Take [facility], 1-04 lipase} 12,000 [facility] Lip-Prot-Am 13:56: units of Me dical yl, (CREON) [address] 12,000-38,0 mouth 3 00 -60,000 (three) unit CpDR times capsule daily with meals. lisdexamfet 2021-0 Yes 50mg QD Take [address] [facility] amine 1-04 by mouth [facility] (VYVANSE) 13:56: every Medical 50 MG 53 morning. Center capsule cloNIDine 2021-0 Yes .1mg QD Take 0.[address] [facility] HCl 1-04 mg by [facility] (CATAPRES) 13:56: mouth Medica l 0.1 MG 53 daily. Center tablet ondansetron 2021-0 Yes 4mg Take [address] (ZOFRAN) 4 1-04 by mouth 2 Ernesto es MG tablet 13:56: (two) Medical 53 times Center daily as needed for Nausea. ondansetron 2021-0 Yes 4mg Take [address] (ZOFRAN-ODT 1-04 by mouth Luke [facility] ) 4 MG 13:56: every 8 Medical disintegrat 53 (eight) Cente r ing tablet hours as needed for Nausea. escitalopra 2021-0 Yes 20mg QD Take [address] [facility] oxalate 1-04 by mouth [facility] (LEXAPRO) 13:56: daily. Medica l 20 MG 53 Center tablet clonazePAM 2021-0 Yes .25mg Take 0.[address] (KlonoPIN) 1-04 mg by [facility] 1 MG tablet 13:56: mouth 3 Med ical 53 (three) Center times daily as needed for Anxiety . traZODone 2022-0 Yes 100mg Take [address] [facility] (DESYREL) 1-04 mg by [facility] 100 MG 13:56: mouth Medical tablet 53 Takes 2 Center tablets by mouth at night. metoclopram 2022-0 Yes 5mg Take [address] teresa 1-04 by mouth 3 [facility] (REGLAN) 5 13:56: (three) Medi darren MG tablet 53 times Center daily with meals. pancrelipas 2021-0 Yes [id number]{ Take [facility], 1-04 lipase} 12,000 [facility] Lip-Prot-Am 13:56: units of Me dical yl, (CREON) [address] 12,000-38,0 mouth 3 00 -60,000 (three) unit CpDR times capsule daily with meals. lisdexamfet 2021-0 Yes 50mg QD Take [address] [facility] amine 1-04 by mouth [facility] (VYVANSE) 13:56: every Medical 50 MG 53 morning. Center capsule cloNIDine 0 Yes .1mg QD Take 0.[address] [facility] HCl 1-04 mg by [facility] (CATAPRES) 13:56: mouth Medica l 0.1 MG 53 daily. Center tablet ondansetron 0 Yes 4mg Take [address] (ZOFRAN) 4 1-04 by mouth 2 Ernesto es MG tablet 13:56: (two) Medical 53 times Center daily as needed for Nausea. ondansetron 2021-0 Yes 4mg Take [address] (ZOFRAN-ODT 1-04 by mouth [facility] ) 4 MG 13:56: every 8 Medical disintegrat 53 (eight) Cente r ing tablet hours as needed for Nausea. tamsulosin 2020-08 Yes .4mg QD Take 1 [facility] (FLOMAX[facility] 1-10 capsule [facility] 0.4 mg Cap 00:00: (0.4 mg Medi darren 24 hr 00 total) by Center capsule mouth daily. tamsulosin 2020-08 Yes .4mg QD Take 1 [facility] (FLOMAX[facility] 1-10 capsule [facility] 0.4 mg Cap 00:00: (0.4 mg Medi darren 24 hr 00 total) by Center capsule mouth daily. tamsulosin 2020-08- No .4mg QD Take [address] [facility] (FLOMAX) 1-10 05-17 capsule [facility] 0.4 mg Cap 00:00: 00:00 (0.4 mg Med ical 24 hr 00 :00 total) by Center capsule mouth daily. tamsulosin 2020-08- No .4mg QD Take [address] [facility] (FLOMAX) 1-10 05-17 capsule [facility] 0.4 mg Cap 00:00: 00:00 (0.4 mg Med ical 24 hr 00 :00 total) by Center capsule mouth daily. ketorolac 2020-08 2021- No 10mg Take 1 [facility] (TORADOL) 1-10 11-15 tablet (10 [facility] 10 mg 00:00: 23:59 mg total) Medica l tablet 00 :00 by mouth 3 Center (three) times daily as needed for Pain for up to 5 days. ketorolac 2020-08 No 10mg Take 1 [facility] (TORADOL) 1-10 11-15 tablet (10 [facility] es 10 mg 00:00: 23:59 mg total) Medica l tablet 00 :00 by mouth 3 Center (three) times daily as needed for Pain for up to 5 days. ketorolac 2020-08- No 10mg Take 1 [facility] (TORADOL) 1-10 11-15 tablet (10 [facility] 10 mg 00:00: 23:59 mg total) Medica l tablet 00 :00 by mouth 3 Center (three) times daily as needed for Pain for up to 5 days. sulfamethox 2020-08- No 160mg{t Q.5D Take [address] [facility] [address] azole-trime 08-20-13 rimetho tablet Marilyn kes thoprim 00:00: 23:59 prim} (160 mg of Me dical (BACTRIM 00 :00 trimethopr Cente r DS) 800-160 im total) mg per by mouth 2 tablet (two) times daily for 3 days smx-tmp DS (BACTRIM) 800-160 mg tabs (1tab q12 D10). sulfamethox 2020-08 No 160mg{t Q.5D Take [address] [facility] azole-trime 08-20-13 rimetho tablet Marilyn kes thoprim 00:00: 23:59 prim} (160 mg of Me dical (BACTRIM 00 :00 trimethopr Cente r DS) 800-160 im total) mg per by mouth 2 tablet (two) times daily for 3 days smx-tmp DS (BACTRIM) 800-160 mg tabs (1tab q12 D10). [facility] 2020-[address] mg tablet 0-20 [facility] Medical [address] [facility] 2020-[address] mg tablet 0-20 [facility] 00:[facility]: Medical [address] [facility] 2020-08 Yes 20mg QD Take [address] mg tablet 0-20 by mouth [facility] 00:[facility]: daily . Medical [address] [facility] 2020-08 Yes 20mg QD Take [address] mg tablet 0-20 by mouth [facility] 00:00: daily . [address] ondansetron 0 Yes 4mg Q8H Take 1 Meth royce ODT (Zofran 6-30 tablet (4 st ODT) 4 MG 00:00: mg total) [facility] disintegrat 00 by mouth l ing tablet every 8 (eight) hours as needed for nausea or vomiting. ondansetron 0 Yes 4mg Q8H Take 1 Meth royce ODT (Zofran 6-30 tablet (4 st ODT) 4 MG 00:00: mg total) [facility] disintegrat 00 by mouth l ing tablet every 8 (eight) hours as needed for nausea or vomiting. ondansetron 0 Yes 4mg Q8H Take 1 Meth roy[facility] ODT (Zofran 6-30 tablet (4 st ODT) 4 MG 00:00: mg total) [facility] disintegrat 00 by mouth l ing tablet every 8 (eight) hours as needed for nausea or vomiting. ondansetron 0 Yes 4mg Q8H Take 1 [facility] ODT (Zofran 6-30 tablet (4 st ODT) 4 MG 00:00: mg total) [facility] disintegrat 00 by mouth l ing tablet every 8 (eight) hours as needed for nausea or vomiting. pantoprazol 2020- No 40mg QD Take 1 [facility]odi e 6-30 07-15 tablet (40 st (Protonix) 00:00: 04:59 mg total) [facility] 40 MG EC 00 :00 by mouth l tablet daily for 14 days. pantoprazol 2020- No 40mg QD Take 1 [facility] 6-30 07-15 tablet (40 st (Protonix) 00:00: 04:59 mg total) [facility]sp[facility] 40 MG EC 00 :00 by mouth l tablet daily for 14 days. pantoprazol 2020- No 40mg QD Take 1 [facility] e 6-30 07-15 tablet (40 st (Protonix) 00:00: 04:59 mg total) [facility]spita 40 MG EC 00 :00 by mouth l tablet daily for 14 days. sucralfate 2020- No 1g Q.25D Take 10 mL [facility] (Carafate) 02-07-11 ([address] 100 mg/mL 00:00: 04:59 total) by Ho [facility]ita suspension 00 :00 mouth 4 l (four) times a day with meals and nightly for 10 days. sucralfate 2020-0 2021- No 1g Q.25D Take 10 mL [facility] (Carafate) 02-07-11 ([address] 100 mg/mL 00:00: 04:59 total) by Ho [facility] suspension 00 :00 mouth 4 l (four) times a day with meals and nightly for 10 days. sucralfate 2020-0 2021- No 1g Q.25D Take 10 mL [facility] (Carafate) 02-07- (1 g st 100 mg/mL 00:00: 04:59 total) by Ho [facility]ita suspension 00 :00 mouth 4 l (four) times a day with meals and nightly for 10 days. famotidine 2020-0 202- No 20mg Q24H Take 20 mg [facility] (PEPCID) 20 4-25 04-[address] MG tablet 20:24: 00:00 daily as [facility] 03 :00 needed for l heartburn. ondansetron 2020-0 Yes 4mg Q12H Take 4 mg M [facility]i (ZOFRAN) 4 4-[address] MG tablet 20:24: every 12 [facility] (twelve) l hours as needed for nausea or vomiting. clonAZEPAM 2020-0 Yes 1mg Q.5D Take 1 mg [facility] (KlonoPIN) 4-[address] 1 MG tablet 20:24: (two) Hospi ta 00 times a l day. ergocalcife 2020-0 Yes [id number] Q7D Take [facility] rol 4-25 50,000 [address] (VITAMIN 20:24: Units by Hospi ta D2) 50,000 00 mouth once l unit a week. ( capsule No set day of the week ) divalproex 2020-0 Yes 500mg QD Take 500 [facility] (DEPAKOTE) 4-[address] 500 MG EC 20:24: mouth Hospita tablet 00 nightly. l divalproex 2020-0 Yes 250mg QD Take 250 [facility] (DEPAKOTE) 4-[address] 250 MG EC 20:24: mouth Hospita tablet 00 every l morning. lipase-prot Yes 1{capsu Q.88828250 Take 1 [facility] ease-amylas 4-25 le} [id number] capsule by st e (CREON) 20:24: 3D mouth 3 Hospi ta 36,000-114, 00 (three) l 000- times a 180,000 day. unit capsule,del ayed release(DR/ EC) lipase-prot Yes 1{capsu Take 1 M ethodi ease-amylas 4-25 le} capsule by st e (CREON) 20:24: mouth with Ho spita 36,000-114, 00 snacks. l 000- 180,000 unit capsule,del ayed release(DR/ EC) busPIRone 2020- No 10mg Q.5D Take 10 mg M [facility]i (BUSPAR) 10 4-25 04-24 by mouth 2 s t MG tablet 16:07: 00:00 (two) Hospit a 36 :00 times a l day. famotidine 2020- No 20mg Q24H Take 20 mg [facility] (PEPCID) 20 4-25 04-[address] MG tablet 15:24: 00:00 daily as [facility] 03 :00 needed for l heartburn. famotidine 2020- No 20mg Q24H Take 20 mg [facility] (PEPCID) 20 4-25 04-[address] MG tablet 15:24: 00:00 daily as [facility] 03 :00 needed for l heartburn. ondansetron Yes 4mg Q12H Take 4 mg M [facility]i (ZOFRAN) 4 4-[address] MG tablet 15:24: every 12 [facility] 00 (twelve) l hours as needed for nausea or vomiting. clonAZEPAM Yes 1mg Q.5D Take 1 mg [facility] (KlonoPIN) 4-[address] 1 MG tablet 15:24: (two) Hospi ta 00 times a l day. ergocalcife 0 Yes [id number] Q7D Take Meth royce rol 4-25 50,000 st (VITAMIN 15:24: Units by Hospi ta D2) 50,000 00 mouth once l unit a week. ( capsule No set day of the week ) divalproex 2020-0 Yes 500mg QD Take 500 [facility] (DEPAKOTE) 4-[address] 500 MG EC 15:24: mouth Hospita tablet 00 nightly. l divalproex 2020-0 Yes 250mg QD Take 250 [facility] (DEPAKOTE) 4-[address] 250 MG EC 15:24: mouth Hospita tablet 00 every l morning. lipase-prot 2020-0 Yes 1{capsu Q.05734542 Take 1 [facility] ease-amylas 4-25 le} [id number] capsule by e (CREON) 15:24: 3D mouth 3 Hospi ta 36,000-114, 00 (three) l 000- times a 180,000 day. unit capsule,del ayed release(DR/ EC) lipase-prot 2020-0 Yes 1{capsu Take 1 M ethodi ease-amylas 4-25 le} capsule by e (CREON) 15:24: mouth with Ho spita 36,000-114, 00 snacks. l 000- 180,000 unit capsule,del ayed release(DR/ EC) ondansetron 2020-0 Yes 4mg Q12H Take 4 mg M ethodi (ZOFRAN) 4 4-[address] MG tablet 15:24: every 12 [facility] 00 (twelve) l hours as needed for nausea or vomiting. clonAZEPAM 2020-0 Yes 1mg Q.5D Take 1 mg [facility] (KlonoPIN) 4-[address] 1 MG tablet 15:24: (two) Hospi ta 00 times a l day. ergocalcife 2020-0 Yes [id number] Q7D Take Meth roy[facility] rol 4-25 50,000 st (VITAMIN 15:24: Units by Hospi ta D2) 50,000 00 mouth once l unit a week. ( capsule No set day of the week ) divalproex 2020-0 Yes 500mg QD Take 500 [facility] (DEPAKOTE) 4-[address] 500 MG EC 15:24: mouth Hospita tablet 00 nightly. l divalproex 2020-0 Yes 250mg QD Take 250 [facility] (DEPAKOTE) 4-[address] 250 MG EC 15:24: mouth Hospita tablet 00 every l morning. lipase-prot 2020-0 Yes 1{capsu Q.[id number] Take 1 [facility] ease-amylas 4-25 le} [id number] capsule by st e (CREON) 15:24: 3D mouth 3 Hospi ta 36,000-114, 00 (three) l 000- times a 180,000 day. unit capsule,del ayed release(DR/ EC) lipase-prot 2020-0 Yes 1{capsu Take 1 M ethodi ease-amylas 4-25 le} capsule by st e (CREON) 15:24: mouth with Ho spita 36,000-114, 00 snacks. l 000- 180,000 unit capsule,del ayed release(DR/ EC) ondansetron 0 Yes 4mg Q12H Take 4 mg M [facility]i (ZOFRAN) 4 4-[address] MG tablet 15:24: every 12 [facility] 00 (twelve) l hours as needed for nausea or vomiting. clonAZEPAM 0 Yes 1mg Q.5D Take 1 mg [facility] (KlonoPIN) 4-[address] 1 MG tablet 15:24: (two) Hospi ta 00 times a l day. ergocalcife 0 Yes [id number] Q7D Take Meth royce rol 4-25 50,000 st (VITAMIN 15:24: Units by Hospi ta D2) 50,000 00 mouth once l unit a week. ( capsule No set day of the week ) divalproex 2020-0 Yes 500mg QD Take 500 [facility] (DEPAKOTE) 4-[address] 500 MG EC 15:24: mouth Hospita tablet 00 nightly. l divalproex 2020-0 Yes 250mg QD Take 250 [facility] (DEPAKOTE) 4-[address] 250 MG EC 15:24: mouth Hospita tablet 00 every l morning. lipase-prot 2020-0 Yes 1{capsu Q.82425039 Take 1 [facility] ease-amylas 4-25 le} [id number] capsule by st e (CREON) 15:24: 3D mouth 3 Hospi ta 36,000-114, 00 (three) l 000- times a 180,000 day. unit capsule,del ayed release(DR/ EC) lipase-prot Yes 1{capsu Take 1 M ethodi ease-amylas -25 le} capsule by st e (CREON) 15:24: mouth with Ho spita 36,000-114, 00 snacks. l 000- 180,000 unit capsule,del ayed release(DR/ EC) busPIRone 2020- No 10mg Q.5D Take 10 mg M [facility]i (BUSPAR) 10 12-03-24 by mouth 2 s t MG tablet 11:07: 00:00 (two) Hospit a 36 :00 times a l day. busPIRone 2020- No 10mg Q.5D Take 10 mg M ethodi (BUSPAR) 10 12-03-24 by mouth 2 s t MG tablet 11:07: 00:00 (two) Hospit a 36 :00 times a l day. pantoprazol 2020- No 40mg QD Take 1 [facility] e 12-03 05-26 tablet (40 st (Protonix) 00:00: 04:59 mg total) H ospita 40 MG EC 00 :00 by mouth l tablet daily for 30 days. sucralfate 2020- No 1g Q.25D Take 1 Met hodi (Carafate) 12-03 05-26 tablet (1 st 1 gram 00:00: 04:59 g total) Hospit a tablet 00 :00 by mouth 4 l (four) times a day for 30 days. pantoprazol 2020- No 40mg QD Take 1 Met [facility] e 12-03 05-26 tablet (40 st (Protonix) 00:00: 04:59 mg total) H ospita 40 MG EC 00 :00 by mouth l tablet daily for 30 days. sucralfate 2020- No 1g Q.25D Take 1 Met hodi (Carafate) - 05-26 tablet (1 st 1 gram 00:00: 04:59 g total) Hospit a tablet 00 :00 by mouth 4 l (four) times a day for 30 days. pantoprazol 2020- No 40mg QD Take 1 Met [facility]odi e 12-03-26 tablet (40 st (Protonix) 00:00: 04:59 mg total) H [facility]spita 40 MG EC 00 :00 by mouth l tablet daily for 30 days. sucralfate 2020- No 1g Q.25D Take 1 Met hodi (Carafate) 12-03-26 tablet (1 st 1 gram 00:00: 04:59 g total) Hospit a tablet 00 :00 by mouth 4 l (four) times a day for 30 days. traMADoL 2020- No [id number] 50mg Q6H Take 1 [facility] (Ultram) 50 -25 05-03 tablet (50 s t mg tablet 00:00: 04:59 mg total) Ho spita 00 :00 by mouth l every 6 (six) hours as needed for moderate pain for up to 7 days .acute pain. traMADoL 2020- No [id number] 50mg Q6H Take 1 [facility] (Ultram) 50 -25 05-03 tablet (50 s t mg tablet 00:00: 04:59 mg total) Ho spita 00 :00 by mouth l every 6 (six) hours as needed for moderate pain for up to 7 days .acute pain. traMADoL 2020- No [id number] 50mg Q6H Take 1 [facility] (Ultram) 50 -25 05-03 tablet (50 s t mg tablet 00:00: 04:59 mg total) [facility] spita 00 :00 by mouth l every 6 (six) hours as needed for moderate pain for up to 7 days .acute pain. topiramate No 50mg QD Take 50 mg [facility] (TOPIRAGEN) 12-01- by mouth st 50 MG 13:40: 00:00 daily. Hospita tablet 18 :00 l SUMAtriptan 2020- No 50mg Q24H Take 50 mg [facility] (IMITREX) 12-01-[address] 50 MG 13:40: 00:00 daily as Hospita tablet 05 :00 needed for l migraine. May repeat in 2 hours if unresolved . Do not exceed 200 mg in 24 hours. propranolol 2020- No 10mg Q.5D Take 10 mg [facility] (INDERAL) 12-01- by mouth 2 st 10 MG 13:39: 00:00 (two) Hospita tablet 58 :00 times a l day. metoclopram 2020- No 5mg Q.61035200 Take 5 mg [facility] teresa -01 12- [id number] by mouth 3 st (REGLAN) 5 13:39: 00:00 3D (three) [facility] MG tablet 38 :00 times a l day as needed (for GERD). lamoTRIgine 2020- No 200mg QD Take 200 [facility] (LaMICtal) 12-01- mg by st 200 MG 13:39: 00:00 mouth Hospita tablet 27 :00 every l morning. fesoterodin No 4mg QD Take 4 mg [facility] e (TOVIAZ) 12-01- by mouth st 4 mg tablet 13:39: 00:00 daily. [facility] extended 08 :00 l release 24 hr esomeprazol No 40mg QD Take 40 mg [facility] e (NexIUM) 12-[address] 40 MG 13:38: 00:00 daily. Hospita capsule 51 :00 l cetirizine No 10mg Q24H Take 10 mg [facility] (ZyrTEC) 10 12-01- by mouth st MG tablet 13:38: 00:00 daily as [facility] 06 :00 needed for l allergies. buPROPion 2020- No 150mg QD Take 150 [facility] XL 12-01- mg by st (WELLBUTRIN 13:36: 00:00 mouth [facility] XL) 150 MG 12 :00 every l 24 hr morning. tablet topiramate 2020- No 50mg QD Take 50 mg [facility] (TOPIRAGEN) 12-01- by mouth st 50 MG 08:40: 00:00 daily. Hospita tablet 18 :00 l topiramate 2020- No 50mg QD Take 50 mg [facility] (TOPIRAGEN) 12-01- by mouth st 50 MG 08:40: 00:00 daily. Hospita tablet 18 :00 l SUMAtriptan 1- No 50mg Q24H Take 50 mg [facility] (IMITREX) 12-[address] 50 MG 08:40: 00:00 daily as Hospita tablet 05 :00 needed for l migraine. May repeat in 2 hours if unresolved . Do not exceed 200 mg in 24 hours. SUMAtriptan 2020-0 2020- No 50mg Q24H Take 50 mg [facility] (IMITREX) 12-01- by mouth st 50 MG 08:40: 00:00 daily as Hospita tablet 05 :00 needed for l migraine. May repeat in 2 hours if unresolved . Do not exceed 200 mg in 24 hours. propranolol 2020-2020- No 10mg Q.5D Take 10 mg [facility] (INDERAL) 12-[address] 10 MG 08:39: 00:00 (two) Hospita tablet 58 :00 times a l day. propranolol 2020-2020- No 10mg Q.5D Take 10 mg [facility] (INDERAL) 12-[address] 10 MG 08:39: 00:00 (two) Hospita tablet 58 :00 times a l day. metoclopram 2020-2020- No 5mg Q.72320599 Take 5 mg [facility] teresa 12-01- [id number] by mouth 3 [facility] (REGLAN) 5 08:39: 00:00 3D (three) [facility] MG tablet 38 :00 times a l day as needed (for GERD). metoclopram 2020-2020- No 5mg Q.52101463 Take 5 mg [facility] teresa 12-01- [id number] by mouth 3 st (REGLAN) 5 08:39: 00:00 3D (three) [facility] MG tablet 38 :00 times a l day as needed (for GERD). lamoTRIgine 2020-2020- No 200mg QD Take 200 [facility] (LaMICtal) 4- 04-[address] 200 MG 08:39: 00:00 mouth Hospita tablet 27 :00 every l morning. lamoTRIgine 2020-0 202- No 200mg QD Take 200 [facility] (LaMICtal) 4- 04-[address] 200 MG 08:39: 00:00 mouth Hospita tablet 27 :00 every l morning. fesoterodin 2020- No 4mg QD Take 4 mg [facility] e (TOVIAZ) -01 12-[address] 4 mg tablet 08:39: 00:00 daily. [facility] extended 08 :00 l release 24 hr fesoterodin 2020- No 4mg QD Take 4 mg [facility] (TOVIAZ) -01 12-[address] 4 mg tablet 08:39: 00:00 daily. [facility] extended 08 :00 l release 24 hr esomeprazol 2020- No 40mg QD Take 40 mg [facility] (NexIUM) -01 12-[address] 40 MG 08:38: 00:00 daily. Hospita capsule 51 :00 l esomeprazol 2020- No 40mg QD Take 40 mg [facility] (NexIUM) 12-01- by mouth st 40 MG 08:38: 00:00 daily. Hospita capsule 51 :00 l cetirizine 2020- No 10mg Q24H Take 10 mg [facility] (ZyrTEC) 10 -01 12-[address] MG tablet 08:38: 00:00 daily as [facility] 06 :00 needed for l allergies. cetirizine 2020- No 10mg Q24H Take 10 mg [facility] (ZyrTEC) 10 -01 12-[address] MG tablet 08:38: 00:00 daily as [facility] 06 :00 needed for l allergies. buPROPion 2020- No 150mg QD Take 150 [facility] XL 4-23 04-[address] (WELLBUTRIN 08:36: 00:00 mouth [facility] XL) 150 MG 12 :00 every l 24 hr morning. tablet buPROPion 2020-2020- No 150mg QD Take 150 [facility] XL 4-23 04-[address] (WELLBUTRIN 08:36: 00:00 mouth [facility] XL) 150 MG 12 :00 every l 24 hr morning. tablet atorvastati 2020- No 40mg QD Take 40 mg [facility] n (LIPITOR) 4-22 04-[address] 40 MG 21:56: 00:00 daily. Hospita tablet 25 :00 l atorvastati 2020- No 40mg QD Take 40 mg [facility] n (LIPITOR) 11-[address] 40 MG 16:56: 00:00 daily. Hospita tablet 25 :00 l atorvastati 2020- No 40mg QD Take 40 mg [facility] n (LIPITOR) 11-[address] 40 MG 16:56: 00:00 daily. Hospita tablet 25 :00 l Ondansetron 2019-0 Yes Take by [facility] HCl (ZOFRAN 05-09 mouth. [facility] [place]) 19:50: of 04 Medicin e escitalopra 2019-0 Yes 20mg Take 20 mg [facility] m (LEXAPRO) 05-09 by mouth Karri [place] 20 MG 19:50: daily. of tablet 04 Medicin e lamotrigine 2019-0 Yes 200mg Take 200 [facility] (LAMICTAL) - mg by [place] 200 MG 19:50: mouth of tablet 04 daily. Medicin e buPROPion 2019-0 Yes 150mg Take 150 [facility] ce[facility] (WELLBUTRIN 9-29 mg by [place] SR) 150 MG 19:50: mouth two of SR tablet 04 times Medicin daily. e Bismuth 2019-0 Yes Take by [facility] Subsalicyla 05-09 mouth. Colleg e te 19:50: of (CHERIE-PECTI 04 Medicin N DS) 525 e MG/15ML SUSP ClonazePAM 2019-0 Yes .25mg Take 0.25 [facility] (KLONOPIN 9-29 mg by [place]) 19:50: mouth. of 04 Medicin e Cetirizine 2019-0 Yes Take by [facility] HCl (ZYRTEC 05-09 mouth. [facility] e ALLERGY [place]) 19:50: of 04 Medicin e Fesoterodin 2019-0 Yes Take by [facility] e Fumarate - mouth. [place] (TOVIAZ) 4 19:50: of MG TB24 04 Medicin e TraMADol 2019-0 Yes Take by [facility] HCl 100 MG - mouth. [place] CP24 19:50: of 04 Medicin e atorvastati 2019-0 Yes 40mg Take 40 mg Ean n (LIPITOR) - by mouth Karri e[place] 40 MG 19:50: daily. of tablet 04 Medicin e lamotrigine 2020-0 Yes 250mg Take 250 [facility] (LAMICTAL) 9-29 mg by [place] 200 MG 19:50: mouth. of tablet 04 Medicin e ondansetron 2020-0 Yes 4mg Take 4 mg [facility] (ZOFRAN) 4 05-09 by mouth Colle ge MG tablet 19:50: every 8 of 04 hours as Medicin needed. e Fesoterodin 2020-0 Yes 4mg Take 4 mg B aylor e Fumarate 05-09 by mouth. [place]ri e[place] 4 MG TB24 19:50: of 04 Medicin e hydrOXYzine 2020-0 Yes 50mg Take 50 mg [facility] (ATARAX) 25 05-09 by mouth Karri ege MG tablet 19:50: nightly. of 04 Medicin e sertraline 2020-0 Yes 50mg Take 50 mg [facility] (ZOLOFT) 50 05-09 by mouth Karri ege MG tablet 19:50: daily. of 03 Medicin e divalproex 2020-0 Yes 500mg Take 500 [facility] (DEPAKOTE) 9-29 mg by [place] 500 MG EC 19:50: mouth of tablet 03 nightly. Medicin e trazodone 2020-0 Yes 200mg Take 200 Daniels checo (DESYREL) 9-29 mg by [place] 100 MG 19:50: mouth of tablet 03 nightly. Medicin e metronidazo 2020-0 No take 4 [facility] le 500 mg 9-22 tablet by ealth tablet 00:00: oral route 00 once per day as a one time dose metronidazo 2020-0 No take 4 [facility] le 500 mg 9-22 tablet by ealth tablet 00:00: oral route 00 once per day as a one time dose metronidazo 2020-0 No take 4 [facility] le 500 mg 9-22 tablet by ealth tablet 00:00: oral route 00 once per day as a one time dose metronidazo 2020-0 No take 4 [facility] 500 mg 9-22 tablet by ealth tablet 00:00: oral route 00 once per day as a one time dose metronidazo 2020-0 No take 4 [facility] 500 mg 9-22 tablet by ealth tablet 00:00: oral route 00 once per day as a one time dose ondansetron 2020- No 4mg Take [address] [facility] (ZOFRAN-ODT 04-03- tablet (4 Marilyn kes ) 4 MG 00:00: 23:59 mg total) Medic al disintegrat 00 :00 by mouth Cent er ing tablet every 8 (eight) hours as needed for Nausea for up to 5 days. fluticasone 2018-08 Yes Seasonal SPRAY [address] [facility] propionate 2-02 allergic SPRAY INTO [facility] (FLONASE) 00:00: rhinitis, EACH Med ical 50 00 unspecified NOSTRIL Cente r mcg/actuati trigger EVERY DAY on nasal spray fluticasone 2018-08 Yes Seasonal SPRAY [address] [facility] propionate 2-02 allergic SPRAY INTO [facility] (FLONASE) 00:00: rhinitis, EACH Med ical 50 00 unspecified NOSTRIL Cente r mcg/actuati trigger EVERY DAY on nasal spray fluticasone 2018-08 Yes Seasonal SPRAY [address] [facility] propionate 2-02 allergic SPRAY INTO [facility] (FLONASE) 00:00: rhinitis, EACH Med ical 50 00 unspecified NOSTRIL Cente r mcg/actuati trigger EVERY DAY on nasal spray fluticasone 2018-08- No Seasonal SPRAY [address] [facility] propionate 2-02 05-17 allergic SPRAY INTO [facility] (FLONASE) 00:00: 00:00 rhinitis, EACH Me dical 50 00 :00 unspecified NOSTRIL Cente r mcg/actuati trigger EVERY DAY on nasal spray fluticasone 2018-08- No Seasonal SPRAY [address] [facility] propionate 2-02 05-17 allergic SPRAY [facility] (FLONASE) 00:00: 00:00 rhinitis, EACH Me dical 50 00 :00 unspecified NOSTRIL Cente r mcg/actuati trigger EVERY DAY on nasal spray escitalopra Yes 20mg QD Take [address] [facility] m oxalate 9-23 by mouth [facility] (LEXAPRO) 11:36: daily. Medica l 20 MG 51 Center tablet clonazePAM Yes .25mg Take 0.[address] (KLONOPIN) 9-23 mg by [facility] 0.5 MG 11:36: mouth 2 Medical tablet 51 (two) Center times daily as needed for Anxiety . traZODone Yes 100mg Take [address] [facility] (DESYREL) 9-23 mg by [facility] 100 MG 11:36: mouth Medical tablet 51 Takes 2 Center tablets by mouth at night. metoclopram 2019 Yes 5mg Take [address] teresa 9-23 by mouth 3 [facility] (REGLAN) 5 11:36: (three) Medi darren MG tablet 51 times Center daily with meals. pancrelipas 2019- Yes [id number]{ Take [facility], 9- lipase} 12,000 [facility] Lip-Prot-Am 11:36: units of Me dical yl, (CREON) [address] 12,000-38,0 mouth 3 00 -60,000 (three) unit CpDR times capsule daily with meals. lisdexamfet Yes 50mg QD Take [address] [facility] amine 9-23 by mouth [facility] (VYVANSE) 11:36: every Medical 50 MG 51 morning. Center capsule cloNIDine Yes .1mg QD Take 0.[address] [facility] HCl 9-23 mg by [facility] (CATAPRES) 11:36: mouth Medica l 0.1 MG 51 daily. Center tablet ondansetron Yes 4mg Take [address] (ZOFRAN) 4 - by mouth 2 Ernesto es MG tablet 11:36: (two) Medical 51 times Center daily as needed for Nausea. ondansetron Yes 4mg Take [address] (ZOFRAN-ODT -23 by mouth Luke [facility] ) 4 MG 11:36: every 8 Medical disintegrat 51 (eight) Cente r ing tablet hours as needed for Nausea. fexofenadin 2020- No Seasonal 1{tbl} Q.5D Take [address] [facility] e-pseudoeph - 09-22 allergic tablet by [facility] edrine 00:00: 23:59 rhinitis, mouth 2 Me dical (REJI-D) 00 :00 unspecified (two) Center 60-120 mg trigger times per tablet daily. CREON [id number] Yes [id number] TAKE 2 [facility] units CPEP 7-30 CAPS BY Colleg e 00:00: MOUTH 3 of 00 TIMES Medicin DAILY e (WITH MEALS). AND 1 CAP WITH SNACKS. promethazin Yes [id number] 25mg Take 1 Tab Ean e 2-15 by mouth College (PHENERGAN) 00:00: every 6 of 25 MG 00 hours as Medicin tablet needed for e Nausea. clonazePAM Yes [facility] (KLONOPIN 2-11 College WAFER) 0.25 00:00: of MG oral 00 Medicin disintegrat e ing tablet promethazin 2015-08 Yes every [address] [facility] 1-27 (eight) [facility] (PHENERGAN) 00:00: hours as Me dical 25 MG 00 needed . Center tablet promethazin 2015-08 Yes every [address] [facility] 1-27 (eight) [facility] (PHENERGAN) 00:00: hours as Me dical 25 MG 00 needed . Center tablet promethazin 2015-08 Yes every [address] [facility] 1-27 (eight) [facility] (PHENERGAN) 00:00: hours as Me dical 25 MG 00 needed . Center tablet promethazin 2015-08 Yes every [address] [facility] 1-27 (eight) [facility] (PHENERGAN) 00:00: hours as Me dical 25 MG 00 needed . Center tablet promethazin 2015-08 Yes every [address] [facility] 1-27 (eight) [facility] (PHENERGAN) 00:00: hours as Me dical 25 MG 00 needed . Center tablet methocarbam 2011-0 Yes 750mg Take 1 Tab [facility] ol 7-30 by mouth 4 ity of (ROBAXIN) 00:00: (four) [place] 750 mg 00 times Medical tablet daily. Branch traMADOL 2012-0 Yes 50mg Take 1 Tab Uni vers (ULTRAM) 50 7-30 by mouth ity of mg tablet 00:00: every 6 [place] 00 (six) Medical hours as Branch needed for Pain. methocarbam 2012-0 Yes 750mg Take 1 Tab Univers ol 7-30 by mouth 4 ity of (ROBAXIN) 00:00: (four) [place] 750 mg 00 times Medical tablet daily. Branch traMADOL 2012-0 Yes 50mg Take 1 Tab [facility] (ULTRAM) 50 7-30 by mouth ity of mg tablet 00:00: every 6 [place] 00 (six) Medical hours as Branch needed for Pain. methocarbam 2012-0 Yes 750mg Take 1 Tab Univers ol 7-30 by mouth 4 ity of (ROBAXIN) 00:00: (four) [place] 750 mg 00 times Medical tablet daily. Branch traMADOL 2012-0 Yes 50mg Take 1 Tab Uni [facility] (ULTRAM) 50 7-30 by mouth ity of mg tablet 00:00: every 6 [place] 00 (six) Medical hours as Branch needed for Pain. methocarbam 2012-0 Yes 750mg Take 1 Tab Univers ol 7-30 by mouth 4 ity of (ROBAXIN) 00:00: (four) [place] 750 mg 00 times Medical tablet daily. Branch traMADOL 2012-0 Yes 50mg Take 1 Tab [facility] (ULTRAM) 50 7-30 by mouth ity of mg tablet 00:00: every 6 [place] 00 (six) Medical hours as Branch needed for Pain. methocarbam 2012-0 Yes 750mg Take 1 Tab Univers ol 7-30 by mouth 4 ity of (ROBAXIN) 00:00: (four) [place] 750 mg 00 times Medical tablet daily. Branch traMADOL 2012-0 Yes 50mg Take 1 Tab Uni vers (ULTRAM) 50 7-30 by mouth ity of mg tablet 00:00: every 6 [place] 00 (six) Medical hours as Branch needed for Pain. methocarbam 2011-0 Yes 750mg Take 1 Tab Univers ol 7-30 by mouth 4 ity of (ROBAXIN) 00:00: (four) [place] 750 mg 00 times Medical tablet daily. Branch traMADOL 2012-0 Yes 50mg Take 1 Tab Uni vers (ULTRAM) 50 7-30 by mouth ity of mg tablet 00:00: every 6 [place] 00 (six) Medical hours as Branch needed for Pain. methocarbam 2012-0 Yes 750mg Take 1 Tab Univers ol 7-30 by mouth 4 ity of (ROBAXIN) 00:00: (four) [place] 750 mg 00 times Medical tablet daily. Branch traMADOL 2012-0 Yes 50mg Take 1 Tab [facility] (ULTRAM) 50 7-30 by mouth ity of mg tablet 00:00: every 6 [place] 00 (six) Medical hours as Branch needed for Pain. methocarbam 2012-0 Yes 750mg Take 1 Tab Univers ol 7-30 by mouth 4 ity of (ROBAXIN) 00:00: (four) [place] 750 mg 00 times Medical tablet daily. Branch traMADOL 2012-0 Yes 50mg Take 1 Tab [facility] (ULTRAM) 50 7-30 by mouth ity of mg tablet 00:00: every 6 [place] 00 (six) Medical hours as Branch needed for Pain. traMADOL 2011-0 Yes 50mg Take 1 Tab Uni vers (ULTRAM) 50 7-30 by mouth ity of mg tablet 00:00: every 6 [place] [address] (six) Medical hours as Branch needed for Pain. traMADOL 2012-0 Yes 50mg Take 1 Tab Uni vers (ULTRAM) 50 7-30 by mouth ity of mg tablet 00:00: every 6 [place] [address] (six) Medical hours as Branch needed for Pain. traMADOL 2012-0 Yes 50mg Take 1 Tab Uni vers (ULTRAM) 50 7-30 by mouth ity of mg tablet 00:00: every 6 [place] [address] (six) Medical hours as Branch needed for Pain. Vital Signs Vital Name Observation Time Observation Value Comments Source Weight 2022-06-11 94.8 KG 17:18:00 Systolic blood 2022-06-08 109 mm[Hg] University of pressure 14:22:00 [facility] Diastolic blood 2022-06-08 77 mm[Hg] University o f pressure 14:22:00 [facility] Heart rate 2022-06-08 86 /min University of 14:22:00 [facility] Body temperature 2022-06-08 37.11 Anitha University of 14:22:00 [facility] Respiratory rate 2022-06-08 18 /min University of 14:22:00 [facility] Body height 2022-06-08 154.9 cm University of 14:22:00 [facility] Body weight 2022-06-08 94.711 kg University of 14:22:00 [facility] BMI 2022-06-08 39.45 kg/m2 University of 14:22:00 [facility] Oxygen saturation in 2022-06-08 97 /min Univers ity of Arterial blood by 14:22:00 [facility] Pulse oximetry Branch Systolic blood 2022-05-29 147 mm[Hg] University of pressure 14:00:00 [facility] Diastolic blood 2022-05-29 96 mm[Hg] University o f pressure 14:00:00 [facility] Heart rate 2022-05-29 62 /min University of 14:00:00 [facility] Respiratory rate 2022-05-29 18 /min University of 14:00:00 [facility] Oxygen saturation in 2022-05-29 99 /min Univers ity of Arterial blood by 14:00:00 [facility] Pulse oximetry Branch Body temperature 2022-05-29 37.33 Anitha University of 11:13:00 [facility] Body height 2022-05-29 154.9 cm University of 11:13:00 [facility] Body weight 2022-05-29 96.163 kg University of 11:13:00 [facility] BMI 2022-05-29 40.06 kg/m2 University of 11:13:00 [facility] Systolic blood 2022-05-22 112 mm[Hg] University of pressure 15:00:00 [facility] Diastolic blood 2022-05-22 71 mm[Hg] University o f pressure 15:00:00 [facility] Heart rate 2022-05-22 59 /min University of 15:00:00 [facility] Respiratory rate 2022-05-22 14 /min University of 15:00:00 [facility] Oxygen saturation in 2022-05-22 96 /min Univers ity of Arterial blood by 15:00:00 [facility] Pulse oximetry Branch Body temperature 2022-05-22 37.17 Anitha University of 12:47:00 [facility] Body weight 2022-05-22 96.163 kg University of 12:47:00 [facility] BMI 2022-05-22 40.06 kg/m2 University of 12:47:00 [facility] HEIGHT 2022-04-24 154.9 cm 10:39:00 WEIGHT 2022-04-24 104.327 kg 10:39:00 HEIGHT 2022-04-24 154.9 cm 10:39:00 WEIGHT 2022-04-24 104.327 kg 10:39:00 HEIGHT 2022-04-24 154.9 cm 10:39:00 WEIGHT 2022-04-24 104.327 kg 10:39:00 Systolic blood 2022-04-16 168 mm[Hg] [facility] pressure 18:30:00 [facility] Diastolic blood 2022-04-16 84 mm[Hg] University o f pressure 18:30:00 [facility] Heart rate 2022-04-16 88 /min University of 18:30:00 [facility] Body temperature 2022-04-16 36.89 Anitha University of 18:30:00 [facility] Respiratory rate 2022-04-16 24 /min University of 18:30:00 [facility] Oxygen saturation in 2022-04-16 98 /min Univers ity of Arterial blood by 18:30:00 [facility] Pulse oximetry [place] Body height 2022-04-16 154.9 cm [facility] 14:36:00 [facility] Body weight 2022-04-16 99.791 kg [facility] 14:36:00 [facility] BMI 2022-04-16 41.57 kg/m2 [facility] 14:36:00 [facility] HEIGHT 2022-03-18 154.9 cm 14:31:00 WEIGHT 2022-03-18 97.7 kg 14:31:00 HEIGHT 2022-03-18 154.9 cm 14:31:00 WEIGHT 2022-03-18 97.7 kg 14:31:00 HEIGHT 2022-03-18 154.9 cm 14:31:00 WEIGHT 2022-03-18 97.7 kg 14:31:00 Height 2022-01-17 154.94 CM 06:43:00 Weight 2022-01-17 99.79 KG 06:43:00 Height 2022-01-13 154.94 CM 13:02:00 Weight 2022-01-13 99.79 KG 13:02:00 Height 2021-12-23 154.94 CM 14:44:00 Weight 2021-12-23 99.79 KG 14:44:00 Weight 2021-12-22 99.79 KG 12:42:00 WEIGHT 2021-08-14 89.132 kg 13:55:00 WEIGHT 2021-08-14 89.132 kg 13:55:00 HEIGHT 2021-06-20 154.9 cm 11:01:00 WEIGHT 2021-06-20 87.998 kg 11:01:00 HEIGHT 2021-06-20 154.9 cm 11:01:00 WEIGHT 2021-06-20 87.998 kg 11:01:00 Height 2021-06-19 165.1 CM 13:36:00 Weight 2021-06-19 86.3 KG 13:36:00 Height 2021-02-17 154.94 CM 15:08:00 Weight 2021-02-17 87.04 KG 15:08:00 Height 2020-11-28 154.94 CM 20:46:00 Weight 2020-11-28 95.25 KG 20:46:00 Weight 2020-10-30 220 KG 22:45:00 Height 2020-07-11 160.02 CM 08:25:00 Weight 2020-07-11 83.91 KG 08:25:00 Height 2020-06-16 157.48 CM 17:10:00 Weight 2020-06-16 84.14 KG 17:10:00 Systolic blood 2020-05-09 132 mm[Hg] [facility] Colleg e of pressure 15:48:00 Medicine Diastolic blood 2020-05-09 80 mm[Hg] [facility] Colle ge of pressure 15:48:00 Medicine Heart rate 2020-05-09 59 /min Pulse Ox-96% [facility] 15:48:00 Medicine Body temperature 2020-05-09 36.94 Anitha [facility] Karri ege of 15:48:00 Medicine Respiratory rate 2020-05-09 18 /min [facility] Karri ege of 15:48:00 Medicine Body height 2020-05-09 156.2 cm [facility] 15:48:00 Medicine Body weight 2020-05-09 82.283 kg [facility] 15:48:00 Medicine BMI 2020-05-09 33.72 kg/m2 [facility] 15:48:00 Medicine Systolic blood 2020-05-09 132 mm[Hg] [facility] Colleg e of pressure 15:48:00 Medicine Diastolic blood 2020-05-09 80 mm[Hg] [facility] ge of pressure 15:48:00 Medicine Heart rate 2020-05-09 59 /min Pulse Ox-96% [facility] 15:48:00 Medicine Body temperature 2020-05-09 36.94 Anitha [facility] Karri ege of 15:48:00 Medicine Respiratory rate 2020-05-09 18 /min [facility] Karri ege of 15:48:00 Medicine Body height 2020-05-09 156.2 cm [facility] 15:48:00 Medicine Body weight 2020-05-09 82.283 kg [facility] 15:48:00 Medicine BMI 2020-05-09 33.72 kg/m2 [facility] 15:48:00 Medicine HEIGHT 2020-04-03 162.6 cm 00:00:00 WEIGHT 2020-04-03 80.287 kg 00:00:00 HEIGHT 2020-04-03 162.6 cm 00:00:00 WEIGHT 2020-04-03 80.287 kg 00:00:00 Height 2019-11-24 160.02 CM 16:32:00 Weight 2019-11-24 79.37 KG 16:32:00 Systolic blood 2022-06-13 126 mm[Hg] [facility] 02:29:00 Diastolic blood 2022-06-13 84 mm[Hg] [facility] 02:29:00 Heart rate 2022-06-13 73 /min [facility] 02:29:00 Body temperature 2022-06-13 36.83 Anitha [facility] 02:29:00 Respiratory rate 2022-06-13 17 /min [facility] 02:29:00 Oxygen saturation in 2022-06-13 95 /min [facility] Arterial blood by 02:29:00 Pulse oximetry Body height 2022-06-12 157.5 cm [facility] 19:48:00 Body weight 2022-06-12 95.255 [facility] 19:48:00 BMI 2022-06-12 38.41 kg/m2 [facility] 19:48:00 Systolic blood 2022-06-11 122 mm[Hg] [facility] pressure 13:14:00 [facility] Center Diastolic blood 2022-06-11 86 mm[Hg] [facility] pressure 13:14:00 [facility] Center Heart rate 2022-06-11 77 /min [facility] 13:14:00 Medical Center Body temperature 2022-06-[address] [facility] 13:14:00 Medical Center Body weight 2022-06-[address] [facility] 13:14:00 [facility] Center BMI 2022-06-11 34.25 kg/m2 [facility] 13:14:00 [facility] Center Respiratory rate 2022-06-02 18 /min [facility] 03:30:00 [facility] Center Oxygen saturation in 2022-06-02 98 /min [facility] Arterial blood by 03:30:00 [facility] nt Pulse oximetry Body height 2022-06-[address] [facility] 18:22:00 Medical Center HEIGHT 2022-03-07 154.9 cm 08:30:00 WEIGHT 2022-03-07 104.327 kg 08:30:00 HEIGHT 2021-12-28 154.9 cm 16:15:00 WEIGHT 2021-12-28 99.791 kg 16:15:00 Systolic blood 2021-08-14 112 mm[Hg] [facility] pressure 13:55:00 Medical Center Diastolic blood 2021-08-14 67 mm[Hg] [facility] pressure 13:55:00 [facility] Heart rate 2021-08-14 61 /min [facility] 13:55:00 [facility] Body temperature 2021-08-14 36.[address] [facility] 13:55:00 [facility] Center Body weight 2021-08-[address] [facility] 13:55:00 [facility] BMI 2021-08-14 37.13 kg/m2 [facility] 13:55:00 [facility] Respiratory rate 2021-06-20 18 /min [facility] 14:56:00 [facility] Oxygen saturation in 2021-06-20 99 /min [facility] Arterial blood by 14:56:00 Medical nter Pulse oximetry Body height 2021-06-20 154.[address] [facility] 11:01:00 [facility] Systolic blood 2021-02-07 128 mm[Hg] [facility] 21:08:00 Diastolic blood 2021-02-07 75 mm[Hg] [facility] 21:08:00 Heart rate 2021-02-07 68 /min [facility] 21:08:00 Respiratory rate 2021-02-07 17 /min [facility] 21:08:00 Oxygen saturation in 2021-02-07 99 /min [facility] Arterial blood by 21:08:00 Pulse oximetry Body temperature 2021-02-07 36.89 Anitha [facility] 16:00:27 Body height 2020-11-30 157.5 cm [facility] 22:00:00 Body weight 2020-11-30 93.078 [facility] 22:00:00 BMI 2020-11-30 37.53 kg/m2 [facility] 22:00:00 Body height 2020-04-26 157.48 cm [facility] 17:05:00 Patient Body Weight 2020-04-26 81.193 [facility] 17:05:00 [facility] 2020-04-26 107 mm[Hg] [facility] Systolic 17:05:00 [facility] 2020-04-26 55 mm[Hg] [facility] Diastolic 17:05:00 Heart Beat 2020-04-26 73 /min [facility] 17:05:00 Body Temperature 2020-04-26 36.67 Anitha [facility] 17:05:00 Respiratory Rate 2020-04-26 18 /min [facility] 17:05:00 Body mass index 2020-04-26 32.74 kg/m2 [facility] 17:05:00 Systolic blood 2020-04-03 168 mm[Hg] [facility] pressure 16:57:00 Medical Center Diastolic blood 2020-04-03 86 mm[Hg] [facility] pressure 16:57:00 Medical Center Heart rate 2020-04-03 60 /min [facility] 16:57:00 [facility] Center Body temperature 2020-04-[address] [facility] 16:57:00 [facility] Respiratory rate 2020-04-03 18 /min [facility] 16:57:00 [facility] Center Oxygen saturation in 2020-04-03 98 /min [facility] Arterial blood by 16:57:00 [facility] nter Pulse oximetry Body height 2020-04-[address] [facility] 13:49:00 Medical Center Body weight 2020-04-[address] [facility] 13:49:00 [facility] Center BMI 2020-04-03 30.38 kg/m2 [facility] 13:49:00 [facility] Center Body height 2019-08-25 157.48 cm [facility] 13:18:00 Patient Body Weight 2019-08-25 79.379 kg [facility] 13:18:00 [facility] 2019-08-25 105 mm[Hg] [facility] Systolic 13:18:00 [facility] 2019-08-25 54 mm[Hg] [facility] Diastolic 13:18:00 Heart Beat 2019-08-25 76 /min [facility] 13:18:00 Body Temperature 2019-08-25 36.72 Anitha [facility] 13:18:00 Respiratory Rate 2019-08-25 16 /min [facility] 13:18:00 Body mass index 2019-08-25 32.01 kg/m2 [facility] 13:18:00 Body height 2019-07-26 157.48 cm [facility] 09:41:00 Patient Body Weight 2019-07-26 76.204 kg [facility] 09:41:00 [facility] 2019-07-26 121 mm[Hg] [facility] Systolic 09:41:00 [facility] 2019-07-26 85 mm[Hg] [facility] Diastolic 09:41:00 Heart Beat 2019-07-26 76 /min [facility] 09:41:00 Body Temperature 2019-07-26 36.67 Anitha [facility] 09:41:00 Respiratory Rate 2019-07-26 18 /min [facility] 09:41:00 Body mass index 2019-07-26 30.73 kg/m2 [facility] 09:41:00 Procedures Procedure Date / Time Performing Source Performed Clinician EXTERNAL PROVIDER RECORDS 2022-06-13 [facility] 05:01:00 Unassigned, No Medical Branch Name CT ABDOMEN PELVIS W CONTRAST 2022-06-13 [facility] 00:16:39 T. HCG QUALITATIVE, SERUM SCREEN 2022-06-12 [facility] 23:33:00 T. HC COMPLETE BLD COUNT W/AUTO DIFF 2022-06-12 [facility] 21:34:00 T. COMPREHENSIVE METABOLIC PANEL 2022-06-12 [facility] 21:34:00 T. MAGNESIUM LEVEL 2022-06-[address] [facility] 21:34:00 T. LACTIC ACID LEVEL, SEPSIS - NOW 2022-06-12 [facility] AND REPEAT 2X EVERY 3 HOURS 21:34:00 T. ESTIMATED GFR 2022-06-[address] [facility] 21:34:00 T. LIPASE LEVEL 2022-06-[address] [facility] 21:22:00 T. URINALYSIS SCREEN AND MICROSCOPY, 2022-06-12 [facility] WITH REFLEX TO CULTURE 21:22:00 T. URINE CULTURE 2022-06-[address] [facility] 21:15:00 T. NM RENAL SCAN WITH DIURETIC 2022-06-[address] [facility] 12:24:00 [facility] US RENAL COMPLETE 2022-06-[address] [facility] 23:16:00 [facility] SCREEN, URINE 2022-06-[address] [facility] 19:43:00 [facility] RAPID DRUG SCREEN, URINE 2022-06-[address] [facility] 19:43:00 [facility] BASIC METABOLIC PANEL 2022-06-[address] [facility] 19:38:00 [facility] URINE CULTURE 2022-06-[address] [facility] 18:45:00 [facility] URINALYSIS W/ MICROSCOPIC 2022-06-01 [facility] 18:45:00 [facility] UA/M W/RFLX CULTURE, ROUT 2022-05-[address] [facility] 11:52:00 [facility] MICROSCOPIC EXAMINATION 2022-05-[address] [facility] 11:52:00 [facility] URINE CULTURE, ROUTINE 2022-05-31 MacJonnathan castorena [facility] 11:52:[address] [facility] [address] ABDOMEN PELVIS WO CONTRAST 2022-05-29 Daya Loera [facility] 12:39:45 [facility] CT LUMBAR SPINE WO CONTRAST 2022-05-29 Daya Loera [facility] 12:39:45 [facility] URINALYSIS 2022-05-[address] [facility] xa 11:59:00 [facility] POCT TEST 2022-05-29 Amilcar Ang [facility] 11:59:00 [facility] LIPASE 2022-05-29 Sav [facility] xa 11:44:00 [facility] COMP. METABOLIC PANEL ([id number]) 2022-05-29 Amilcar Ang [facility] 11:44:00 [facility] CBC WITH DIFF 2022-05-29 [facility] 11:44:00 [facility] POCT TEST 2022-05-22 Carlito Carmen [facility] 13:25:00 [facility] LIPASE 2022-05-22 Carlito Carmen [facility] ex 13:22:00 Medical Branch COMP. METABOLIC PANEL ([id number]) 2022-05-22 Carlito Carmen [facility] 13:22:00 Medical Branch CBC WITH DIFF 2022-05-22 Carlito Carmen [facility] exas 13:22:00 Medical Branch URINALYSIS 2022-05-22 Carlito Carmen [facility] exas 13:22:00 Medical Branch US RENAL COMPLETE 2022-05-[address] [facility] 16:20:00 [facility] RENAL COMPLETE 2022-05-[address] [facility] 20:30:00 [facility] PERMANENT LAB REPORT - SCAN 2022-05-16 Provider, Default [facility] 00:00:00 Sc[facility] URINE CULTURE 2022-05-[address] [facility] 16:24:00 [facility] CBC W/PLT COUNT & AUTO 2022-04-29 Banjo, Atinuke [facility] DIFFERENTIAL 03:32:00 [facility] BASIC METABOLIC PANEL 2022-04-29 Banjo, Atinuke [facility] 03:32:00 [facility] [facility] MAGNESIUM 2022-04-29 Banjo, Atinuke [facility] 03:32:00 [facility] PHOSPHORUS 2022-04-29 Banjo, Atinuke [facility] 03:32:00 [facility] CBC W/PLT COUNT & AUTO 2022-04-29 Banjo, [facility]inuke [facility] DI[facility] 03:32:00 [facility] URINE CULTURE 2022-04-[address] [facility] 04:38:00 [facility] URINALYSIS W/ MICROSCOPIC 2022-04-[address] [facility] 04:38:00 [facility] CBC W/PLT COUNT & AUTO 2022-04-28 Banjo, Atinuke [facility] DIFFERENTIAL 04:33:00 [facility] BASIC METABOLIC PANEL 2022-04-28 Banjo, [facility]inuke [facility] 04:33:00 [facility] MAGNESIUM 2022-04-28 Banjo, Atinuke [facility] 04:33:00 [facility] PHOSPHORUS 2022-04-28 Banjo, Atinuke [facility] 04:33:00 [facility] CBC W/PLT COUNT & AUTO 2022-04-28 Banjo, [facility]inuke [facility] DIFFER[facility] 04:33:[address] ABDOMEN/PELVIS WITHOUT IV 2022-04-[address] [facility] CONTRAST 18:43:00 [facility] US PELVIS 2022-04-27 Banjo, Atinuke [facility] 14:39:00 [facility] US ABDOMEN COMPLETE 2022-04-27 Banjo, Atinuke [facility] 14:39:00 [facility] [place] XR ABDOMEN/KUB 1 VIEW PORTABLE 2022-04-27 Zee, Atindalia [facility] 09:20:00 [facility] CBC W/PLT COUNT & AUTO 2022-04-27 Banjo, Atinuke [facility] 05:41:00 [facility] BASIC METABOLIC PANEL 2022-04-27 Banjo, [facility]inuke [facility] 05:41:00 [facility] MAGNESIUM 2022-04-27 Banjo, Atinuke [facility] 05:41:00 [facility] PHOSPHORUS 2022-04-27 Banjo, Atinuke [facility] 05:41:00 [facility] CBC W/PLT COUNT & AUTO 2022-04-27 Banjo, Atinuke [facility] DIFFER[facility] 05:41:00 [facility] CBC W/PLT COUNT & AUTO 2022-04-26 Banjo, [facility]inuke [facility] DIFFERENTIAL 05:13:00 [facility] BASIC METABOLIC PANEL 2022-04-26 Banjo, [facility]inuke [facility] 05:13:00 [facility] MAGNESIUM 2022-04-26 Banjo, Atinuke [facility] 05:13:00 [facility] PHOSPHORUS 2022-04-26 Banjo, Atinuke [facility] 05:13:00 [facility] CBC W/PLT COUNT & AUTO 2022-04-26 Banjo, Atinuke [facility] DIFFERENTIAL 05:13:00 [facility] URINALYSIS W/ REFLEX URINE 2022-04-25 [facility]ine [facility] CULTURE 13:51:00 [facility] CBC W/PLT COUNT & AUTO 2022-04-25 Banjo, [facility]inuke [facility] DIFFERENTIAL 04:02:00 [facility] BASIC METABOLIC PANEL 2022-04-25 Banjo, Atinuke [facility] 04:02:00 [facility] MAGNESIUM 2022-04-25 Banjo, Atindalia [facility] 04:02:00 [facility] PHOSPHORUS 2022-04-25 Banjo, Atinukyuliet [facility] 04:02:00 [facility] CBC W/PLT COUNT & AUTO 2022-04-25 Banjo, Atberhane [facility] DIFFERENTIAL 04:02:00 [facility] [place] FLUORO NON-SPECIFIC UP TO 1 2022-04-24 Mac, Jonnathan [facility] HOUR 12:47:00 [facility] CYSTOSCOPY, WITH RETROGRADE 2022-04-24 Jonnathan Watts [facility] PYELOGRAM 11:48:00 [facility] SCREEN, URINE 2022-04-24 Desmond Juan Carlos [facility] 10:13:00 [facility] COVID ANTIGEN 2022-04-22 Mac, Jonnathan [facility] 09:25:00 [facility] PROTHROMBIN TIME/INR 2022-04-22 Mac, Jonnathan [facility] 09:25:00 [facility] TYPE AND SCREEN, AUTOMATED 2022-04-22 Mac, Jonnathan [facility] 09:25:[address] [facility] [address] ABDOMEN PELVIS W CONTRAST 2022-04-16 Brittani Garcia [facility] 16:29:38 [facility] LIPASE 2022-04-16 [facility] 15:52[facility]00 [facility] HEPATIC FUNCTION PANEL ([id number]) 2022-04-16 Brittani Garcia [facility] (ALB,T.PRO,BILI 15:52:00 [facility] T,BU/BC,ALT,AST,ALK PHOS) BASIC METABOLIC PANEL (NA, K, CL, 2022-04-16 [facility] CO2, GLUCOSE, BUN, CREATININE, 15:52:00 [facility] WITH DIFF 2022-04-16 [facility] 15:52[facility]00 [facility] LACTIC ACID WHOLE BLOOD 2022-04-16 Radha [facility] 15:52:00 [facility] COVID-19 (ID NOW RAPID TESTING) 2022-04-16 Radha [facility] 15:52:00 [facility] POCT TEST 2022-04-16 Radha [facility] [place] 15:23:00 [facility] URINALYSIS 2022-04-16 Garcia [facility] [place] 15:22:00 [facility] CONSENT/REFUSAL FOR DIAGNOSIS AND 2022-04-16 [facility] TREATMENT 14:33:27 Unassigned, No Medical [facility] Name CLOSTRIDIUM DIFFICILE TOXIN 2022-04-05 [facility] 15:56:00 [facility] POCT URINALYSIS DIPSTICK 2022-04-04 [facility] 15:10:00 [facility] URINE CULTURE 2022-04-[address] [facility] 15:08:00 [facility] CYSTOSCOPY, WITH RETROGRADE 2022-03-20 Jon[address] [facility] PYEL[facility] 20:29:00 [facility] US RENAL COMPLETE 2022-03-[address] [facility] 17:25:00 [facility] CBC W/PLT COUNT & AUTO 2022-03-20 Quynh Burleson [facility] DIFFERENTIAL 06:04:00 [facility] CBC W/PLT COUNT & AUTO 2022-03-20 Shieh, Quynh [facility] DIFFERENTIAL 06:04:00 [facility] BASIC METABOLIC PANEL 2022-03-20 Futalan, Nerville [facility] 03:46:00 Pis An [facility] MAGNESIUM 2022-03-20 Futalan, Nerville [facility] 03:46:00 Pis [facility] PHOSPHORUS 2022-03-20 Futalan, N[place] [facility] 03:46:00 Pis [facility] URINE CULTURE 2022-03-19 Mac, Jonnathan [facility] 19:20:00 [facility] US RENAL COMPLETE 2022-03-19 Kristaeh Quynh C [facility] 09:35:00 [facility] BASIC METABOLIC PANEL 2022-03-19 Futalan, Nerville [facility] 03:47:00 Pis [facility] MAGNESIUM 2022-03-19 Futalan, [place] [facility] 03:47:00 Pis [facility] PHOSPHORUS 2022-03-19 Futalan, N[place] [facility] 03:47:00 Pis [facility] CBC W/PLT COUNT & AUTO 2022-03-[address] [facility] [facility] DIFFERENTIAL 03:47:00 [facility] CBC W/PLT COUNT & AUTO 2022-03-[address] [facility] [facility] DIFFERENTIAL 03:47:00 [facility] COVID ANTIGEN 2022-03-18 Juan Carlos [address]amorro [facility] 16:31:00 [facility] CT ABDOMEN/PELVIS WITHOUT IV 2022-03-[address] [facility] CONTR[facility] 15:25:00 [facility] URINALYSIS W/ REFLEX URINE 2022-03-18 Juan [facility] C[facility] 15:01:00 [facility] SCREEN, URINE 2022-03-[address] [facility] 15:01:00 [facility] CBC W/PLT COUNT & AUTO 2022-03-[address] [facility] DIFFERENTIAL 15:00:00 [facility] COMPREHENSIVE METABOLIC PANEL 2022-03-18 Juan Carlos [facility] 15:00:00 [facility] CBC W/PLT COUNT & AUTO 2022-03-[address] [facility] DIFFERENTIAL 15:00:00 [facility] FL FLUORO NON-SPECIFIC UP TO 1 2022-03-[address] [facility] HOUR 09:12:00 [facility] CYSTOURETEROSCOPY, WITH LASER 2022-03-[address] [facility] LITHOTRIPSY 07:43:00 [facility] SCREEN, URINE 2022-03-14 Des[address] [facility] 05:48:00 [facility] COVID ANTIGEN 2022-03-[address] [facility] 10:54:00 [facility] BASIC METABOLIC PANEL 2022-03-11 Mac, Jonnathan [facility] 10:54:00 [facility] CBC W/PLT COUNT & AUTO 2022-03-[address] [facility] DIFFERENTIAL 10:54:00 [facility] PROTHROMBIN TIME/INR 2022-03-11 Mac, Jonnathan [facility] 10:54:00 [facility] TYPE AND SCREEN, AUTOMATED 2022-03-[address] [facility] 10:54:00 [facility] CBC W/PLT COUNT & AUTO 2022-03-[address] [facility] DIFFERENTIAL 10:54:00 [facility] URINE CULTURE 2022-03-04 Mac, Jonnathan [facility] 12:38:[address] [facility] [address] ABDOMEN/PELVIS WITHOUT IV 2022-01-10 Penaflor, Kayode [facility] CONTRAST 18:25:00 [facility] CBC W/PLT COUNT & AUTO 2022-01-[facility] DIFFER[facility] 16:20:00 [facility] COMPREHENSIVE METABOLIC PANEL 2022-01-10 [facility] 16:20:00 [facility] LIPASE 2022-01-10 [facility] Kayode [facility] 16:20:00 [facility] URINALYSIS W/ REFLEX URINE 2022-01-10 [facility], Kayode [facility] CULTURE 16:20:00 [facility] SCREEN, URINE 2022-01-10 [facility], Kayode [facility] 16:20:00 [facility] CBC W/PLT COUNT & AUTO 2022-01-10 [facility], Kayode [facility] DIFFERENTIAL 16:20:00 [facility] FL FLUORO NON-SPECIFIC UP TO 1 2022-01-[address] [facility] HOUR 14:30:00 [facility] CYSTOURETEROSCOPY, WITH 2022-01-[address] [facility] LITHOTRIPSY, CALCULUS REMOVAL, 13:20:00 [facility] AND URETERAL STENT INSERTION SCREEN, URINE 2022-01-04 [address] [facility] 11:53:00 [facility] SARS-COV2/RT-PCR (HS & REF 2022-01-[address] [facility] 09:41:00 [facility] BASIC METABOLIC PANEL 2022-01-[address] [facility] 09:41:00 [facility] CBC W/PLT COUNT & AUTO 2022-01-[address] [facility] DIFFERENTIAL 09:41:00 [facility] PROTHROMBIN TIME/INR 2022-01-[address] [facility] 09:41:00 [facility] TYPE AND SCREEN, AUTOMATED 2022-01-[address] [facility] 09:41:00 [facility] CBC W/PLT COUNT & AUTO 2022-01-[address] [facility] DIFFERENTIAL 09:41:00 [facility] UA/M W/RFLX CULTURE, ROUT 2021-12-25 Mac, Jonnathan [facility] 16:25:00 [facility] MICROSCOPIC EXAMINATION 2021-12-25 Mac, Jonnathan [facility] 16:25:00 [facility] URINE CULTURE, ROUTINE 2021-12-25 Mac, Jonnathan [facility] 16:25:00 [facility] POCT URINALYSIS DIPSTICK 2021-12-25 Jonnathan [facility] 08:57:00 [facility] URINE CULTURE 2021-08-24 Mac, Jonnathan [facility] 12:19:00 [facility] XR ABDOMEN/KUB 1 VIEW PORTABLE 2021-08-[address] [facility] 10:42:00 [facility] US RENAL COMPLETE 2021-06-20 Penafcheco, Kayode [facility] 13:30:00 [facility] COMPREHENSIVE METABOLIC PANEL 2021-06-20 Penkrishna, Kayode [facility] 11:18:00 [facility] LIPASE 2021-06-[address] [facility] 11:18:00 [facility] SCREEN, URINE 2021-06-20 Penafcheco, Kayode [facility] 11:18:00 [facility] RAPID DRUG SCREEN, URINE 2021-06-20 Penafcheco, Kayode [facility] 11:18:00 [facility] URINALYSIS W/ REFLEX URINE 2021-06-20 Cora, Kayode [facility] C[facility] 11:18:00 [facility] CBC W/PLT COUNT & AUTO 2021-06-[address] [facility] DI[facility] 11:18:00 [facility] CBC W/PLT COUNT & AUTO 2021-06-20 Penaflor, Kayode [facility] DIFFER[facility] 11:18:00 [facility] ECG 12-LEAD 2021-02-07 [facility] 20:58:41 CT ABDOMEN PELVIS W CONTRAST 2021-02-07 [facility] 20:11:39 URINE CULTURE 2021-02-07 [facility] 19:36:00 URINALYSIS SCREEN AND MICROSCOPY, 2021-02-07 [facility] WITH REFLEX TO CULTURE 19:36:00 COMPREHENSIVE METABOLIC PANEL 2021-02-07 [facility] 17:28:00 LIPASE LEVEL 2021-02-07 [facility] 17:28:00 HC COMPLETE BLD COUNT W/AUTO DIFF 2021-02-07 [facility] 17:28:00 TROPONIN 2021-02-07 [facility] 17:28:00 HCG QUALITATIVE, SERUM SCREEN 2021-02-07 [facility] 17:28:00 ALCOHOL LEVEL, BLOOD 2021-02-07 [facility] 17:28:00 ESTIMATED GFR 2021-02-07 [facility] 17:28:00 ECG ED PRELIMINARY INTERPRETATION 2021-02-07 [facility] 17:06:30 ESOPHAGOGASTRODUODENOSCOPY (EGD) 2020-12-03 [facility] 15:19:00 Surjit Shea SURGICAL PATHOLOGY REQUEST 2020-12-03 [facility] 13:25:00 C. HC COMPLETE BLD COUNT W/AUTO DIFF 2020-12-03 [facility] 10:07:00 C. BASIC METABOLIC PANEL 2020-12-03 [facility] 10:07:00 C. ESTIMATED GFR 2020-12-03 [facility] 10:07:00 C. HC COMPLETE BLD COUNT W/AUTO DIFF 2020-12-01 [facility] 09:10:00 Latrondria Cecilia BASIC METABOLIC PANEL 2020-12-01 [facility] 09:10:00 Latrondria Cecilia MAGNESIUM LEVEL 2020-12-01 [facility] 09:10:00 Latrondria Cecilia PHOSPHORUS LEVEL 2020[facility]-01 [facility]:10[facility]00 Latrondria Cecilia ESTIMATED GFR 2020-12-01 [facility] 09:10:[address] ABDOMEN PELVIS W CONTRAST 2020-11-30 [facility] 22:32:29 Latrondria Cecilia PARTIAL THROMBOPLASTIN TIME (PTT) 2020-11-30 [facility] 20:05:00 Sangabel Jeter PROTHROMBIN TIME WITH INR 2020-11-30 [facility] 20:05:00 Sangeeth Joywin XR CHEST 1 VW PORTABLE 2020-11-30 [facility] 19:59:32 Sangeeth Joywin XR ABDOMEN 1 VW 2020-11-30 [facility] 19:58:49 Sangeeth Joywin ECG ED PRELIMINARY INTERPRETATION 2020-11-30 [facility] 19:36:37 Sangeeth Jorileywin B NATRIURETIC PEPTIDE 2020-11-30 [facility] 19:33:00 Sangeeelias Jeter HC COMPLETE BLD COUNT W/AUTO DIFF 2020-11-30 [facility] 19:32:00 Sangeeth Jorileywin COMPREHENSIVE METABOLIC PANEL 2020-11-30 [facility] 19:32:00 Sangeeth Joywin MAGNESIUM LEVEL 2020-11-30 [facility] 19:32:00 Sangeeth Joywin TROPONIN 2020-11-30 [facility]:32:00 Surjit Shea LIPASE LEVEL 2020-11-30 [facility] 19:32:00 Sangeeth Joywin HCG QUALITATIVE, SERUM SCREEN 2020-11-30 [facility] 19:32:00 Sangeeth Joywin ESTIMATED GFR 2020-11-30 [facility] 19:32[facility]00 Donny Sheppardliliam ECG 12-LEAD 2020-11-30 [facility] 19:19:19 Donny Barbajohnny COVID-19 QUALITATIVE RT-PCR 2020-11-30 [facility] 19:06:00 Rajanabel Sheppardliliam URINALYSIS SCREEN AND MICROSCOPY, 2020-11-30 [facility] WITH REFLEX TO CULTURE 19:06:00 Rajanabel Barbajohnny URINE CULTURE 2020-11-30 [facility] 18:48:00 Donny Barbajohnny PHOSPHORUS LEVEL 2020-11-30 [facility] 18:48:00 Latrondria Cecilia OFFICE/OUTPATIENT VISIT EST 2020-04-26 [facility] 00:00:00 TRICHOMONAS VAGIN DIR PROBE 2020-04-26 [facility] 00:00:00 URINALYSIS WITH MICROSCOPIC IF 2020-04-03 Ramirez, Franc Pereyra [facility] INDICATED 16:28:00 [facility] CBC W/PLT COUNT & AUTO 2020-04-[address] [facility] DIFFERENTIAL 16:27:[address] [facility] [address] ABDOMEN/PELVIS WITH IV 2020-04-[address] [facility] CONTRAST 15:35:00 [facility] COMPREHENSIVE METABOLIC PANEL 2020-04-[address] [facility] 14:40:00 [facility] URINE TEST 2019-08-25 [facility] BIOPSY OF UTERUS LINING 2019-08-25 [facility] OFFICE/OUTPATIENT VISIT EST 2019-08-25 [facility] 00:00:00 SURGICAL PATH GROSS 2019-08-25 [facility] 00:00:00 CYTOPATH C/V THIN LAYER 2019-07-26 [facility] 00:[facility] OFFICE/OUTPATIENT VISIT NEW 2019-07-26 [facility] 00:00:00 COMPLETE CBC W/AUTO DIFF WBC 2019-07-26 [facility] 00:00:00 ASSAY THYROID STIM HORMONE 2019-07-26 [facility] 00:[facility]:00 CYTOPATH C/V AUTO FLUID REDO 2019-07-26 [facility] 00:00:00 Plan of Care Planned Activity Planned Date Details Comments Source Future Scheduled 2023-06-[address] [facility] 00:00:00 [facility] Cent[facility] r Screening (12+) [code = Tobacco Cessation Counseling and Screening (12+)] Future Scheduled 2022-07-[address] [facility] 00:00[facility]00 [facility] [code = 587434697] Future Scheduled 2022-07-[address] [facility] 00:00:00 [facility]) [code = 419194095] Future Scheduled 2022-07-[address] [facility] 00:00:00 [facility] cerv[facility] (procedure) [code = 854169971] Future Scheduled 2022-07-[address] [facility] 00:00:00 [facility] cervix (procedure) [code = 439179340] Future Scheduled 2022-07-02 HEPATITIS B VACCINES Met [facility] Test 14:04:21 (1 of 3 - 3-dose series) [code = HEPATITIS B VACCINES (1 of 3 - 3-dose series)] Future Scheduled 2022-07-02 COVID-19 VACCINE (#1) [facility] Test 14:04:21 [code = COVID-19 VACCINE (#1)] Future Scheduled 2022-07-02 Pneumococcal Vaccine: [facility] Test 14:04:21 Pediatrics (0 to 5 Years) and At-Risk Patients (6 to 64 Years) (1 - PCV) [code = Pneumococcal Vaccine: Pediatrics (0 to 5 Years) and At-Risk Patients (6 to 64 Years) (1 - PCV)] Future Scheduled 2022-07-02 Hepatitis C screening [facility] Test 14:04:21 (procedure) [code = 793775407] Future Scheduled 2022-07-02 [facility] for [facility] Test 14:04:21 malignant neoplasm of cervix (procedure) [code = 490454368] Future Scheduled 2022-07-02 BREAST CANCER [facility] Test 14:04:21 SCREENING [code = BREAST CANCER SCREENING] Future Scheduled 2022-07-02 INFLUENZA VACCINE Method [facility] Test 14:04:21 [code = INFLUENZA VACCINE] Future Scheduled 2022-04-11 INFLUENZA VACCINE (#1) [facility] 00:00:00 [code = INFLUENZA Medical Ce nter VACCINE (#1)] Future Scheduled 2022-04-11 INFLUENZA VACCINE (#1) [facility] 00:00:00 [code = INFLUENZA Medical Ce nter VACCINE (#1)] Future Scheduled 2021-09-12 COVID-19 VACCINE (1) Met [facility] Test 15:51:07 [code = COVID-19 VACCINE (1)] Future Scheduled 2021-09-12 Hepatitis C screening Me [facility] Test 15:51:07 (procedure) [code = 935772948] Future Scheduled 2021-09-12 [facility] Test 15:51:07 malignant neoplasm of cervix (procedure) [code = 029878823] Future Scheduled 2021-09-12 INFLUENZA VACCINE [facility] Test 15:51:07 [code = INFLUENZA VACCINE] Future Scheduled 2021-09-12 COVID-19 VACCINE (1) Met [facility] Test 15:51:07 [code = COVID-19 VACCINE (1)] Future Scheduled 2021-09-12 Hepatitis C screening [facility] Test 15:51:07 (procedure) [code = 949763682] Future Scheduled 2021-09-12 [facility] Test 15:51:07 malignant neoplasm of cervix (procedure) [code = 680327058] Future Scheduled 2021-09-12 INFLUENZA VACCINE [facility] Test 15:51:07 [code = INFLUENZA VACCINE] Future Scheduled 2021-04-11 INFLUENZA VACCINE (#1) [facility] 00:00:00 [code = INFLUENZA Medical Ce nter VACCINE (#1)] Future Scheduled 2021-04-11 INFLUENZA VACCINE (#1) [facility] 00:00:00 [code = INFLUENZA Medical Ce nter VACCINE (#1)] Future Scheduled 2021-04-11 INFLUENZA VACCINE (#1) [facility] 00:00:00 [code = INFLUENZA Medical Ce nter VACCINE (#1)] Future Scheduled 2019-07-[address] [facility] 00:[facility]:00 (procedure) [code = [facility] 11939376] Future Scheduled 2019-07-[address] [facility] 00:00:00 (procedure) [code = [facility] 98979776] Future Scheduled 2019-07-[address] [facility] 00:00:00 (procedure) [code = [facility] 51475362] Future Scheduled 2019-07-[address] [facility] 00:00:00 (procedure) [code = [facility] 77365814] Future Scheduled 2019-07-[address] [facility] 00:00:00 (procedure) [code = [facility] 07964495] Future Scheduled 2000-12-[address] [facility] 00:00:00 malignant neoplasm of Medica l Center cervix (procedure) [code = 876001961] Future Scheduled 1998-12-08 DTAP/TDAP/TD VACCINES [facility] 00:00:00 (1 - Tdap) [code = Medical C enter DTAP/TDAP/TD VACCINES (1 - Tdap)] Future Scheduled 1998-12-08 DTAP/TDAP/TD VACCINES [facility] 00:00:00 (1 - Tdap) [code = Medical C enter DTAP/TDAP/TD VACCINES (1 - Tdap)] Future Scheduled 1998-12-08 DTAP/TDAP/TD VACCINES [facility] 00:00:00 (1 - Tdap) [code = Medical C enter DTAP/TDAP/TD VACCINES (1 - Tdap)] Future Scheduled 1998-12-08 DTAP/TDAP/TD VACCINES [facility] 00:00:00 (1 - Tdap) [code = Medical C enter DTAP/TDAP/TD VACCINES (1 - Tdap)] Future Scheduled 1998-12-08 DTAP/TDAP/TD VACCINES [facility] 00:00:00 (1 - Tdap) [code = Medical C enter DTAP/TDAP/TD VACCINES (1 - Tdap)] Future Scheduled 1997-12-08 HEPATITIS C SCREENING [facility] 00:00:00 [code = HEPATITIS C Medical Center SCREENING] Future Scheduled 1997-12-08 HEPATITIS C [facility]CRE[facility]ING [facility] 00:00:00 [code = HEPATITIS C Medical Center SCREENING] Future Scheduled 1997-12-08 HEPATITIS C [facility]CRE[facility]ING [facility] 00:00:00 [code = HEPATITIS C Medical Center SCREENING] Future Scheduled 1997-12-08 HEPATITIS C [facility]CRE[facility]ING [facility] 00:00:00 [code = HEPATITIS C Medical Center SCREENING] Future Scheduled 1997-12-08 HEPATITIS C [facility]CRE[facility]ING [facility] 00:00:00 [code = HEPATITIS C Medical Center SCREENING] Future Scheduled 1991 COVID-19 VACCINE (1) [facility] 00:00:00 [code = COVID-[address] VACCINE (1)] Future Scheduled 1984-12-08 COVID-19 VACCINE (1) [facility] 00:00:00 [code = COVID-[address] VACCINE (1)] Future Scheduled 1984-12-08 COVID-19 VACCINE (1) [facility] 00:00:00 [code = COVID-[address] VACCINE (1)] Future Scheduled 1980-06-09 COVID-19 VACCINE (#1) [facility] 00:00:00 [code = COVID-[address] VACCINE (#1)] Future Scheduled 1980-06-09 COVID-19 VACCINE (#1) [facility] 00:00:00 [code = COVID-[address] VACCINE (#1)] Future Scheduled COVID-19 [facility]INE ([facility] [code = COVID-19 VACCINE (1)] Future Scheduled Hepatitis C screening [facility] Test (procedure) [code = 207561763] Future Scheduled [facility] Test malignant neoplasm of cervix (procedure) [code = 702330051] Future Scheduled INFLUENZA VACCINE [facility] Test [code = INFLUENZA VACCINE] Future Scheduled MAMMOGRAM ANNUAL [code B [facility] Test = MAMMOGRAM ANNUAL] Medicine Future Scheduled TETANUS SHOT (ADULT) [facility] of Test [code = TETANUS SHOT Medicin e (ADULT)] Future Scheduled BMI FOLLOW UP PLAN [facility] Test [code = BMI FOLLOW UP Medici ne PLAN] Future Scheduled HEPATITIS C SCREENING [facility] of Test [code = HEPATITIS C Medicine SCREENING] Future Scheduled HIV SCREENING [code = [facility] Test HIV SCREENING] Medicine Future Scheduled CERVICAL CANCER [facility] SCREENING 3 YEAR Medicine FOLLOW UP [code = CERVICAL CANCER SCREENING 2 YEAR FOLLOW UP] Future Scheduled FLU VACCINE > 6 MONTHS B [facility] Test [code = FLU VACCINE > Medici ne 6 MONTHS] Future Scheduled ZOSTER VACCINE (1 of [facility] Test 2) [code = ZOSTER Medicine VACCINE (1 of 2)] Encounters Start End Encounter Admission Attending Care Care Encounter Source Date/Time Date/Time Type Type Clinicians Facility Department ID 2022-07-04 2022-07-04 Orders Mac [facility] [id number] 00:00:00 00:00:00 Only [facility] 2022-06-25 2022-06-25 Outpatient ALISTAIR Gaona, SHAYWU SUG [id number] [facility] 08:40:00 08:40:00 Sophiatd 34 [facility] 2022-06-19 2022-06-19 Orders Mac [facility] [id number] [id number] 00:00:00 00:00:00 Only [facility] 2022-06-19 2022-06-[address] [facility] [id number] [id number] 00:00:00 00:00:00 Only [facility] 2022-06-13 2022-06-13 Orders Doctor BORREGO 1.2.840.114 [id number] [facility] 00:00:00 00:00:00 Only Unassigned, MAG 350.1.13.10 ity of [place] [facility] 4.2.7.2.686 Renato as [phone] [address] 2022-06-12 2022-06-12 Emergency Noemy, 1.2.840.1 [id number] Methodi 16:09:00 21:30:00 Kelvin Santana 57313.1.[address] 3.430.2.7 Hospit a .3.954836 l .8 2022-06-12 2022-06-12 Emergency [facility] [id number] [place] 00:00:00 00:00:00 KELVIN Simpson3 Method i [address] 2022-06-12 2022-06-12 Travel 1.2.840.1 1.2.734.147 [id number] Methodi 00:00:00 00:00:[address] 3.430.2.7 0.2.7.3.698 Ho spita .3.975227 084.8 l .8 2022-06-11 2022-06-11 Emergency E GAGE, [facility] [id number]00 [facility] 2022-06-11 2022-06-11 [facility] [id number] [id number] 13:00:00 13:59:58 Visit [facility] 2022-06-11 2022-06-[address] [facility] [id number] [id number] 13:00:00 13:59:58 Visit [facility] 2022-06-10 2022-06-10 Telephone [facility] [id number] [id number] 00:00:00 00:00:00 [facility] 2022-06-10 2022-06-[address] [id number] [id number] 00:00:00 00:00:00 [facility] 2022-06-09 2022-06-09 Letter JOSE JUAN Sotuh 1.2.840.114 [id number] Univers 00:00:00 00:00:00 (Out) Nidhi HATHAWAY 350.1.13.10 it y of [facility] 4.2.7.2.686 Renato as [phone] [address] 2022-06-08 2022-06-08 Urgent Provider, [facility] 1.2.840.114 [id number] Univers 09:40:00 10:00:00 Care Unknown, Attending HEALTH 350.1.13.10 ity of [place] 4.2.7.2.686 Renato as ITZEL?BLEA [id number] [address] MEDICAL OFFICE BUILDING 2022-06-08 2022-06-08 Outpatient R SIMRAN [facility] [id number] Univers 09:40:00 09:53:06 EMERSON roblero [facility] 2022-06-08 2022-06-08 Outpatient Allyssa JUSTIN, [facility] [id number] Univers 09:15:00 09:15:00 JOSE james [facility] 2022-06-07 2022-06-07 [facility], [facility] [id number] 10:25:39 10:25:39 Encounter [facility] 2022-06-07 2022-06-07 [facility] [id number] 10:25:39 10:25:39 Encounter [facility] 2022-06-06 2022-06-06 Outside [facility], [facility] [id number] [id number] 00:00:00 00:00:00 Orders [facility] 2022-06-06 2022-06-06 Outside [facility], [facility] [id number] [id number] 00:00:00 00:00:00 Orders [facility] 2022-06-05 2022-06-[address] [id number] [id number] [facility] 00:00:00 00:00:00 [facility] 2022-06-05 2022-06-05 Telephone Mac, [facility] [id number] [id number] 00:00:00 00:00:00 [facility] 2022-05-31 2022-06-03 Office Mac, [facility] [id number] [id number] 08:15:00 15:23:[address] 2022-05-31 2022-06-03 Office Mac [facility] [id number] [id number] 08:15:00 15:23:[address] 2022-05-16 2022-06-03 Office ALISTAIR Watts [facility] [id number] 09:00:00 13:39:11 Visit [facility] 2022-05-16 2022-06-03 Office Mac [facility] [id number] 09:00:00 13:39:11 Visit [facility] 2022-06-03 2022-06-03 Outpatient Allyssa [facility] [id number] Univers 13:20:00 13:20:00 JOANNA james [facility] 2022-06-01 2022-06-02 Emergency ER [place], [facility] [id number] 18:20:00 03:42:00 [facility] 2022-06-01 2022-06-02 Emergency Julio César, [facility] [id number] 18:20:00 03:42:00 [facility] 2022-06-01 2022-06-02 Emergency ER JULIO CÉSAR, [facility] Emergency 2051 [id number] [facility] 18:20:00 03:42:00 [facility] 2022-06-02 2022-06-02 Orders Mac [facility] [id number] [id number] 00:00:00 00:00:00 Only [facility] 2022-06-02 2022-06-02 Orders Mac [facility] [id number] [id number] 00:00:00 00:00:00 Only [facility] 2022-05-16 2022-06-01 Inpatient UR [facility] General Med [id number] [facility] 15:08:00 18:09:00 5 2022-05-31 2022-05-31 Orders Mac [facility] [id number] [id number] 00:00:00 00:00:00 Only [facility] 2022-05-31 2022-05-31 Orders Mac, [facility] [id number] [id number] 00:00:00 00:00:00 Only [facility] 2022-05-29 2022-05-29 Emergency X FANNY, [facility] ERT [id number] Univers 06:05:00 09:49:00 DAYA deleonriley [facility] 2022-05-29 2022-05-29 Emergency Amilcar Ang [facility] 1.2.840. 114 [id number] Univers 06:05:00 09:49:00 Daya Loera 350.1.13.10 ity [facility] 4.2.7.2.686 [facility] [id number] [address] 2022-05-22 2022-05-22 Emergency X PAPITO, [facility] ERT [id number] Univers 07:48:00 10:55:00 CARLITO [facility] 2022-05-22 2022-05-22 Emergency [facility] 1.2.384.363 [id number] Univers 07:48:00 10:55:00 Carlito SCOTT 350.1.13.10 [facility] 4.2.7.2.686 [facility] [id number] [address] 2022-05-20 2022-05-20 Emergency [facility] [id number] 13:07:00 18:45:00 [facility] 2022-05-20 2022-05-20 Emergency ER [facility] Emergency [id number] [facility] 13:07:00 18:45:00 2022-05-16 2022-05-17 [facility] [id number] 15:08:00 15:00:[address] [place] [address] 2022-05-16 2022-05-17 [facility] [id number] 15:08:00 15:00:[address] [place] [address] 2022-05-07 2022-05-07 Procedure EL Mac [facility] [id number] [id number] 15:00:00 16:08:25 visit [facility] 2022-05-07 2022-05-07 Procedure Mac [facility] [id number] [id number] 15:00:00 16:08:25 visit [facility] 2022-05-06 2022-05-06 Valentina Watts [facility] [id number] 00:00:00 00:00:00 [facility] 2022-05-06 2022-05-06 Valentina Watts [facility] [id number] 00:00:00 00:00:00 [facility] 2022-05-03 2022-05-03 [facility] 1.2.840.114 [id number] Univers 00:00:00 00:00:00 [facility] 350.1.13.10 ity of [facility] 4.2.7.2.686 Renato as ITZEL?BLEA [id number] [address] OFFICE [facility] 2022-05-02 2022-05-02 [facility] 1.2.840.114 [id number] Univers 00:00:00 00:00:00 [facility] 350.1.13.10 ity of [place] 4.2.7.2.686 Renato as ITZEL?BLEA [id number] [address] 2022-04-24 2022-04-29 [facility] ALISTAIR Watts Jonnathan Ibarra [facility] [id number] [facility] 09:57:00 15:51:00 Encounter Quynh Burleson [facility] 2022-04-24 2022-04-29 [facility] Mac Rafat [facility] [id number] [facility] 09:57:00 15:51:00 Encounter Quynh Burleson [facility] 2022-04-24 2022-04-29 Inpatient ALISTAIR BURLESON, [facility] Surgery [id number] SLS 09:57:00 15:51:00 QUYNH 2022-04-24 2022-04-24 [facility] [id number] 11:50:00 13:20:00 [facility] 2022-04-24 2022-04-[address] [facility] [id number] 11:50:00 13:20:00 [facility] 2022-04-24 2022-04-24 Anesthesia Juan Carlos Logan [facility] [id number] [facility] 11:48:00 12:57:00 Event [facility] 2022-04-24 2022-04-24 Anesthesia Juan Carlos Logan [facility] [id number] [facility] 11:48:00 12:57:00 Event [facility] 2022-04-24 2022-04-24 Travel [facility] [id number] [facility] 00:00:00 00:00:00 [facility] 2022-04-24 2022-04-24 Travel [facility] [id number] [facility] 00:00:00 00:00:00 [facility] 2022-04-22 2022-04-22 Outpatient EL [facility] [id number] [facility] 09:18:12 23:59:00 2022-04-22 2022-04-22 [facility] [id number] 09:18:12 23:59:00 Encounter [facility] 2022-04-22 2022-04-22 [facility] [id number] 09:18:12 23:59:00 Encounter [facility] 2022-04-19 2022-04-19 Jennifre Watts [facility] [id number] [id number] 00:00:00 00:00:00 Only [facility] 2022-04-19 2022-04-19 Travel [facility] [id number] [facility] 00:00:00 00:00:00 [facility] 2022-04-19 2022-04-19 Jennifer Watts [facility] [id number] [id number] 00:00:00 00:00:00 Only [facility] 2022-04-19 2022-04-19 Travel [facility] [id number] [facility] 00:00:00 00:00:00 [facility] 2022-04-18 2022-04-18 Telephone Justin [facility] 1.2.285.742 [id number] Univers 00:00:00 00:00:00 [facility] 350.1.13.10 ity of [place] 4.2.7.2.686 Renato as ITZEL?BLEA [id number] [place] rogelio [address] MEDICAL OFFICE BUILDING 2022-04-16 2022-04-16 Emergency X [facility] [id number] Univers 10:20:00 13:30:00 BRITTANI ity [facility] 2022-04-16 2022-04-16 Emergency [facility] 1.2.005.204 [id number] Univers 10:20:00 13:30:00 [facility] 350.1.13.10 it y of [place] 4.2.7.2.686 [facility] [id number] [address] ([facility] 2022-04-10 2022-04-10 [facility]phone [facility] [id number] [id number] 00:00:00 00:00:00 [facility] 2022-04-10 2022-04-[address] [id number] [id number] 00:00:00 00:00:00 [facility] 2022-04-08 2022-04-08 Emergency X ROD, Costa [facility] ERT [id number] Univers 08:48:00 12:36:00 ity of [facility] 2022-04-08 2022-04-08 Emergency Rod [facility] 1.2.840.114 [id number] Univers 08:48:00 12:36:00 Deepali YUEJEFF 350.1.13.10 i ty of [place] 4.2.7.2.686 [facility] [id number] [address] 2022-04-08 2022-04-08 Emergency X ROD, K [facility] ERT [id number] Univers 08:48:00 12:36:00 ity [facility] 2022-04-05 2022-04-05 [facility] CRISTIN Hoffman 1.2.840.114 [id number] Univers 09:54:00 23:59:00 Encounter Iqra Lopez 350.1.13.10 ity of [facility] 4.2.7.2.686 Renato as [id number] [address] 2022-04-05 2022-04-05 [facility] 1.2.840.114 [id number] Univers 00:00:00 00:00:00 Jose HEALTH 350.1.13.10 ity of [place] 4.2.7.2.686 Renato as ITZEL?BLEA [phone] Nc rogelio [facility] [address] MEDICAL OFFICE [facility] 2022-04-04 2022-04-04 Outpatient EL [facility] [id number] [facility] 17:21:49 17:21:49 2022-04-04 2022-04-04 Office ALISTAIR Watts [facility] [id number] [id number] 14:15:00 15:03:53 Visit [facility] 2022-04-04 2022-04-04 Office Mac [facility] [id number] [id number] 14:15:00 15:03:53 Visit [facility] 2022-04-04 2022-04-04 Cardiovascular Surgical Tech [facility], Ang - Db [facility] 1.2.840.1 14 [id number] Univers 11:00:00 11:25:02 Visit Justin [facility] 350.1.13.10 ity of [place] 4.2.7.2.686 Renato as ITZEL?BLEA [phone] [facility] OFFICE [facility] 2022-04-04 2022-04-04 Cardiovascular Surgical Tech Lab, Ang - Db [facility] 1.2.840.1 14 [id number] Univers 11:00:00 11:15:00 Visit Justin [facility] 350.1.13.10 ity of [place] 4.2.7.2.686 Renato as ITZEL?BLEA [id number] [address] OFFICE [facility] 2022-04-04 2022-04-04 Outpatient R JUSTIN [facility] [id number] Univers 11:00:00 11:00:00 JOSE ity of [facility] 2022-04-04 2022-04-04 Office [facility] 1.2.840.114 [id number] Univers 09:20:00 10:56:32 Visit Jose HEALTH 350.1.13.10 ity of [place] 4.2.7.2.686 Renato as ITZEL?BLEA [id number] [facility] [address] MEDICAL OFFICE [facility] 2022-04-04 2022-04-04 Outpatient R [facility] [id number] Univers 09:20:00 10:56:32 [facility] 2022-04-04 2022-04-04 Outpatient Puchakasirenaa [facility] H[facility] [id number] [facility] 07:27:00 07:27:[address] , [address] 2022-04-04 2022-04-04 Letter JOSE JUAN [place] 1.2.840.114 [id number] Univers 00:00:00 00:00:00 (Out) Nidhi HATHAWAY 350.1.13.10 it y of [facility] 4.2.7.2.686 Renato as [id number] [address] 2022-04-03 2022-04-03 Outpatient Allyssa [facility] [id number] Univers 09:40:00 10:14:19 [facility] 2022-04-03 2022-04-03 [facility] 1.2.840.114 [id number] Univers 09:40:00 10:14:19 Care [facility] 350.1.13.10 it y of [place] 4.2.7.2.686 Renato as ITZEL?BLEA [id number] [place] [facility] [address] MEDICAL OFFICE [facility] 2022-04-03 2022-04-03 Outpatient Allyssa [facility] [id number] Univers 09:40:00 10:14:19 [facility] 2022-04-03 2022-04-03 Outpatient Allyssa [facility] [id number] Univers 09:30:00 09:30:00 [facility] 2022-04-03 2022-04-03 [facility] 1.2.840.114 [id number] Univers 00:00:00 00:00:00 [facility] 350.1.13.10 ity [facility] 4.2.7.2.686 Renato as ITZEL?BLE [id number] [address] MEDICAL OFFICE BUILDING 2022-03-31 2022-03-31 [facility] [id number] [id number] 00:00:00 00:00:00 Only [facility] 2022-03-31 2022-03-31 [facility] [id number] [id number] 00:00:00 00:00:00 Only [facility] 2022-03-29 2022-03-29 [facility] [id number] Univers 10:38:00 14:45:00 MAGUE james [facility] 2022-03-29 2022-03-[address] [facility] 1.2.840.114 [id number] Univers 10:38:00 14:45:00 [place] 350.1.13.10 i lissy [facility] 4.2.7.2.686 [facility] [id number] [address] 2022-03-29 2022-03-29 Telephone Mac [facility] [id number] [id number] 00:00:00 00:00:00 [facility] 2022-03-29 2022-03-29 Telephone Mac [facility] [id number] [id number] 00:00:00 00:00:00 [facility] 2022-03-18 2022-03-21 Hospital ER Juan Carlos Chamorro [facility] [id number] 15:03:00 10:20:00 Encounter Libby Hodges Matthew C Medical Kaul, Surinder C enter 2022-03-18 2022-03-21 Inpatient ER [facility] [id number] [facility] 15:03:00 10:20:00 FEDERICO 2022-03-18 2022-03-21 [facility] Juan Carlos Chamorro [facility] [id number] 15:03:00 10:20:00 Encounter Libby Hodges [facility] Medical Kaul, Surinder C enter 2022-03-20 2022-03-20 [facility] [id number] 20:30:00 21:18:00 [facility]-20 2022-03-20 Anesthesia [facility] [id number] 20:30:00 21:18:00 [facility] 2022-03-20 2022-03-20 Surgery [facility], [facility] [id number] 19:00:00 20:17:00 [facility] 2022-03-20 2022-03-20 Surgery [facility], [facility] [id number] 19:00:00 20:17:00 [facility] 2022-03-18 2022-03-18 Procedure ALISTAIR Jeanaga, [facility] [id number] [id number] 13:00:00 13:13:26 visit [facility] 2022-03-18 2022-03-18 Procedure Mac, [facility] [id number] [id number] 13:00:00 13:13:26 visit [facility] 2022-03-14 2022-03-14 Hospital [facility], [facility] [id number] 05:41:00 10:50:00 Encounter [facility] 2022-03-14 2022-03-14 [facility] [id number] 05:41:00 10:50:00 Encounter [facility] 2022-03-14 2022-03-14 Outpatient MAC, [facility] Surgery [id number] [facility] 05:41:00 10:50:00 JONNATHAN 2022-03-14 2022-03-14 Anesthesia Juan Carlos Logan [facility] [id number] 07:48:00 09:19:00 Event Duane [facility] 2022-03-14 2022-03-14 Anesthesia Juan Carlos Logan [facility] [id number] 07:48:00 09:19:00 Event Duane Mario [facility] 2022-03-14 2022-03-14 [facility] [id number] 07:30:00 09:00:00 [facility] 2022-03-14 2022-03-[address] [facility] [id number] 07:30:00 09:00:00 [facility] 2022-03-14 2022-03-14 Travel [facility] [id number] [facility] 00:00:00 00:00:00 [facility] 2022-03-14 2022-03-14 Travel [facility] [id number] [facility] 00:00:00 00:00:00 [facility] 2022-03-11 2022-03-11 [facility] [id number] 10:52:28 23:59:00 [facility] 2022-03-11 2022-03-11 [facility] [id number] 10:52:28 23:59:00 Encounter [facility] 2022-03-11 2022-03-11 Outpatient [facility] [id number] [facility] 10:52:28 23:59:00 2022-03-08 2022-03-08 Orders Mac [facility] [id number] [id number] 00:00:00 00:00:00 Only [facility] 2022-03-08 2022-03-08 Orders Mac [facility] [id number] [id number] 00:00:00 00:00:00 Only [facility] 2022-03-07 2022-03-07 Travel [facility] [id number] [facility] 00:00:00 00:00:00 [facility] 2022-03-07 2022-03-07 Travel [facility] [id number] [facility] 00:00:00 00:00:00 [facility] 2022-03-06 2022-03-06 Telephone Abe [facility] [id number] [id number] 00:00:00 00:00:00 [facility] 2022-03-06 2022-03-06 Telephone Abe [facility] [id number] [id number] 00:00:00 00:00:00 [facility] 2022-03-04 2022-03-04 Outpatient EL [facility] [id number] [facility] 12:54:17 12:54:17 2022-03-04 2022-03-04 Clinical EL Nurse, [facility] [id number] [id number] 10:30:00 12:02:28 Support [facility] 2022-03-04 2022-03-04 Clinical Nurse, [facility] [id number] [id number] 10:30:00 12:02:28 Support [facility] 2022-02-26 2022-02-26 Office EL Mac, [facility] [id number] [id number] 16:00:00 16:32:10 Visit [facility] 2022-02-26 2022-02-26 Office Mac, [facility] [id number] 16:00:00 16:32:10 Visit [facility] 2022-02-26 2022-02-26 Office EL Ultrasound, [facility] [id number] 15:00:00 16:01:21 Visit [facility] 2022-02-26 2022-02-26 Office Ultrasound, [facility] [id number] 15:00:00 16:01:21 Visit [facility] 2022-01-22 2022-01-22 Procedure ALISTAIR Watts [facility] [id number] [facility] 13:15:00 13:58:33 visit [facility] 2022-01-22 2022-01-22 Procedure Mac [facility] [id number] [id number] [facility] 13:15:00 13:58:33 visit [facility] 2022-01-17 2022-01-19 Outpatient E ALEKSANDR, [facility] [id number] [place] 10:05:00 16:27:00 MO [facility] 2022-02-14 2022-01-17 Inpatient SHAY CatWKelvin SUGL [id number] [facility] 09:30:00 09:15:00 Leka 69 [facility] 2022-01-15 2022-01-15 Emergency X [facility] ERT [id number] [facility] 06:38:00 09:45:00 MARINE james [facility] 2022-01-15 2022-01-15 Emergency [facility] [id number] [facility] 06:38:00 09:45:00 Marine SCOTT [id number] [facility] [id number] [facility] [id number] [place] [id number] [place] 2022-01-13 2022-01-13 Emergency E OEI, [facility] [id number] [facility] 12:54:00 15:30:00 TREVON [facility] 2022-01-10 2022-01-10 Emergency [facility], [facility] [id number] [facility] 17:29:00 20:21:00 [facility] 2022-01-10 2022-01-[address] [facility], [facility] [id number] [facility] 17:29:00 20:21:00 [facility] 2022-01-10 2022-01-10 [facility] Emergency [id number] [facility] 17:29:00 20:21:00 KAYODE 2022-01-06 2022-01-06 Orders Mac, [facility] [id number] 00:00:00 00:00:00 Only [facility] 2022-01-06 2022-01-06 Orders Mac, [facility] [id number] 00:00:00 00:00:00 Only [facility] 2022-01-04 2022-01-04 [facility], [facility] [id number] 11:30:00 16:15:00 Encounter [facility] 2022-01-04 2022-01-04 [facility], [facility] [id number] [facility] 11:30:00 16:15:00 Encounter [facility] 2022-01-04 2022-01-04 Outpatient MAC, [facility] Surgery [id number] [place] [facility] 11:30:00 16:15:00 [place] 2022-01-04 2022-01-04 Surgery Mac, [facility] [id number] 13:30:00 15:30:00 [facility] 2022-01-04 2022-01-04 Surgery Mac, [facility] [id number] 13:30:00 15:30:00 [facility] 2022-01-04 2022-01-04 [facility] [id number] [facility] 13:20:00 14:41:00 Event Krystle Mckeon [facility] 2022-01-04 2022-01-04 [facility]est[facility] [id number] [facility] 13:20:00 14:41:00 Event Krystle Mckeon [facility] 2022-01-04 2022-01-04 Travel [facility] [id number] [facility] 00:[facility]00 00:00:00 [facility] 2022-01-04 2022-01-04 Travel [facility] [id number] [facility] 00:[facility]00 00:00:00 [facility] 2022-01-01 2022-01-01 [facility] [id number] 09:40:08 23:59:00 Encounter [facility] 2022-01-01 2022-01-01 [facility] [id number] 09:40:08 23:59:00 Encounter [facility] 2022-01-01 2022-01-01 Outpatient EL [facility] [id number] [facility] 09:40:08 23:59:00 2021-12-31 2021-12-31 Telephone Mac [facility] [id number] [id number] 00:00:00 00:00:00 [facility] 2021-12-31 2021-12-31 Telephone Mac [facility] [id number] [id number] 00:00:00 00:00:00 [facility] 2021-12-28 2021-12-28 Travel [facility] [id number] [facility] 00:[facility]00 00:00:00 [facility] 2021-12-28 2021-12-28 Telephone Mac [facility] [id number] [id number] 00:00:00 00:00:00 [facility] 2021-12-28 2021-12-28 Travel [facility] [id number] [facility] 00:[facility]00 00:00:00 [facility] 2021-12-28 2021-12-28 Telephone Mac [facility] [id number] [id number] 00:00:00 00:00:00 [facility] 2021-12-26 2021-12-26 Telephone Mac [facility] [id number] [id number] 00:00:00 00:00:00 [facility] 2021-12-26 2021-12-26 Telephone Mac [facility] [id number] [id number] 00:00:00 00:00:00 [facility] 2021-12-25 2021-12-25 Office EL Mac, [facility] [id number] [id number] 08:00:00 11:25:55 Visit [facility] 2021-12-25 2021-12-25 Office Mac, [facility] [id number] [id number] 08:00:00 11:25:55 Visit [facility] 2021-12-25 2021-12-25 Office EL Ultrasound, [facility] [id number] 08:30:00 11:17:[address] [facility] 2021-12-25 2021-12-25 Office Ultrasound, [facility] [id number] 08:30:00 11:17:55 Visit Slmg Sl [facility] 2021-12-23 2021-12-23 Emergency E RAMILA [id number] 16[facility]35[facility]00 [facility] 2021-12-22 2021-12-22 Emergency E CANDELARIO ZAMORA [facility] [id number] [place] 12:41:00 21:07:00 [facility] [place] 2021-11-12 2021-11-12 Outpatient Allyssa [facility] [id number] [facility] 09:30:00 09:30:00 EWA james [facility] 2021-11-05 2021-11-05 Outpatient Allyssa [facility] [id number] [facility] 09:15:00 11:02:35 EWA james [facility] 2021-11-05 2021-11-05 Ancillary Delaney Drake [facility] 1.2.840. 114 [id number] [facility] 09:15:00 11:02:35 Visit Ewa Lemus 350.1.13.10 [facility] 4.2.7.2.686 Michael GRAVES [id number] [address] 2021-11-05 2021-11-05 Orders Doctor JOSE JUAN 1.2.840.114 [id number] Univers 00:00:00 00:00:00 Only Unassigned, MAG 350.1.13.10 ity of [place] [facility] 4.2.7.2.686 Renato as [id number] [facility] 009 [place] 2021-08-24 2021-08-24 Outpatient [id number] [facility] 10:19:08 23:59:00 [place] 2021-08-24 2021-08-24 [facility] [id number] 10:15:00 23:59:00 Encounter [facility] 2021-08-24 2021-08-24 [facility] [id number] 10:15:00 23:59:00 Encounter [facility] 2021-08-24 2021-08-24 Clinical Nurse, [facility] [id number] [id number] 12:30:00 12:45:00 Support [facility] 2021-08-24 2021-08-24 Clinical Nurse, [facility] [id number] [id number] 12:30:00 12:45:00 Support [facility] 2021-08-24 2021-08-[address] [facility] [id number] [id number] 00:00:00 00:00:00 [facility] 2021-08-24 2021-08-[address] [facility] [facility] [id number] [id number] 00:00:00 00:00:00 Orders [facility] 2021-08-24 2021-08-[address] [facility] [facility] [id number] [id number] 00:00:00 00:00:00 [facility] 2021-08-24 2021-08-[address] [facility] [id number] 00:00:00 00:00:00 Orders [facility] 2021-08-22 2021-08-22 Telephone Mac [facility] [id number] [id number] 00:00:00 00:00:00 [facility] 2021-08-22 2021-08-22 Telephone Mac [facility] [id number] [id number] 00:00:00 00:00:00 [facility] 2021-08-20 2021-08-20 Outpatient [facility] PRADIP HECTOR [facility] 00:00:00 00:00:00 [id number] 2021-08-15 2021-08-15 [facility] [id number] [id number] 00:00:00 00:00:00 [facility] 2021-08-15 2021-08-15 [facility] [id number] [id number] 00:00:00 00:00:00 [facility] 2021-08-14 2021-08-14 [facility] [id number] [id number] 13:30:00 15:02:06 Visit [facility] 2021-08-14 2021-08-14 [facility] [id number] 13:30:00 15:02:06 Visit [facility] 2021-08-14 2021-08-14 Outpatient [facility] PRADIP YOUNG COH 00:00:00 00:00:00 EM- 4 2021-08-08 2021-08-08 Outpatient FBCOVID FBCOVID [id number] 4-2 FBCOVID 00:00:00 00:00:00 [id number] 2021-06-20 2021-06-20 Emergency ER Julio César, [facility] [id number] 11:04:00 14:58:00 [facility] 2021-06-20 2021-06-20 Emergency ER JULIO CÉSAR, [facility] Emergency [id number] [facility] 11:04:00 14:58:00 CWANZA 2021-06-20 2021-06-20 [facility] [id number] [facility] 00:00:00 00:00:00 [facility] 2021-06-19 2021-06-19 Emergency E SONG, [facility] [id number] [place] 13:16:00 16:13:00 STORMY [facility] [place] 2021-06-15 2021-06-15 Outpatient Johanna PHOENIX, [facility] RAD [id number] [place] 14:03:00 23:59:00 TOD [facility] [place] 2021-03-20 2021-03-20 Outpatient ARROYO, SON [facility] [id number] AccessH 15:51:00 15:51:00 ealt 2021-03-20 2021-03-20 Outpatient DINA, SON [facility] [id number] AccessH 15:51:00 15:51:00 e2-3dg3-11n cb6-47b5-9 ealth 0-ik4glw851 l6n-x20296 0f4 3fa6d6 2020-11-15 2021-03-08 Outpatient Johanna LOPEZ, [facility] PT [id number] [facility] 08:00:00 23:59:00 [facility] 2021-03-06 2021-03-06 Emergency E DONN, [facility] WWECC [id number] [place] 21:10:00 22:50:00 ANTHONY [facility] 2021-02-27 2021-02-27 Outpatient ARROYO, SON [facility] [id number] AccessH 09:58:00 09:58:00 ealt 2021-02-27 2021-02-27 Outpatient ARROYO, SON [facility] [id number] AccessH 09:58:00 09:58:00 e2-3nf9-65v 4v9-4813-5 ealth 0-ul9put279 3fa-efed4c 0f4 8a8dd6 2021-02-26 2021-02-26 Outpatient ARROYO, SON [facility] [id number] AccessH 15:00:00 [facility]:00:[facility] 2021-02-26 2021-02-26 Outpatient KIRSTEN ARROYO [facility] [id number] AccessH 15:00:00 15:00:00 e2-0ct7-71b 995-453e-a ealt 0-ed6psa951 1r2-670pfr 0f4 3jl539 2021-02-17 2021-02-17 Emergency E MCGRATH, [facility] [id number] [facility] 14:53:00 16:10:00 [facility] 2021-02-07 2021-02-07 Emergency Oswald, 1.2.840.1 [id number] Methodi 11:10:00 16:11:00 Jose Juan 07499.1.[address] Sangeeth 3.430.2.7 Hospi ta Fredawin .3.296592 l .8 2020-11-30 2020-12-03 Emergency Oswald, Jose Juan Barbaw in 1.2.840.1 [id number] Methodi 13:38:00 15:23:00 Nazanin Ponce 71767.1.[address] 3.430.2.7 Hospit a .3.087693 l .8 2020-12-03 2020-12-03 Anesthesia Jackson, 1.2.840.1 [id number] Methodi 10:06:00 10:38:00 Event Yaleanna 98365.1.[address] Katie 3.430.2.7 Hospit a .3.701093 l .8 2020-12-03 2020-12-03 Surgery Puchakayala 1.2.840.1 [id number] Methodi 09:30:00 09:55:00 , Surjit 42267.1.[address] Shea 3.430.2.7 Hospit a .3.300830 l .8 2020-11-30 2020-11-30 Outpatient C MAINOR, CARLOS [facility] PT [id number] [facility] 08:28:00 08:28:00 [facility] [place] 2020-10-30 2020-10-30 Emergency E DEDE, [facility] WWC [id number] [facility] 22:44:00 23:45:00 KARTHIKEYAN [facility] 2020-09-21 2020-09-21 Outpatient ALICIATHOMAS ROSALES [facility] [id number] AccessH 08:31:00 08:31:00 ealth 2020-09-21 2020-09-21 Outpatient THOMAS ALICIA [facility] [id number] AccessH 08:31:00 08:31:00 e2-9gl1-12x 87a-43a7-b ealth 0-dx9hpf500 bf6-96b61b 0f4 f320c5 2020-09-13 2020-09-13 Outpatient KIRSTEN ARROYO [facility] [id number] AccessH 14:22:00 14:22:00 e2-2dz2-58m f4s-0ebg-d ealth 0-kh0snc793 a20-q806y8 0f4 1dbadb 2020-07-11 2020-07-11 Emergency E AUGUSTINE, [facility] [id number] [facility] 08:15:00 18:45:00 [facility] 2020-06-27 2020-06-27 Outpatient LIND, [facility] [id number] AccessH 15:11:00 15:11:00 RAINA ealth 2020-06-27 2020-06-27 Outpatient LIND, [facility] [id number] AccessH 15:11:00 15:11:00 RAINA e2-5or3-88w 4t7-96g4-0 ealth 0-ta9snt796 bf6-4be42b 0f4 04x038 2020-06-23 2020-06-23 [facility] [id number] [facility] 13:45:00 13:45:[address] [place] [address] 2020-06-19 2020-06-19 Outpatient LIND, [facility] [id number] AccessH 13:31:00 13:31:00 RAINA [facility] 2020-06-19 2020-06-19 Outpatient LIND, [facility] 4sg7g1x7-7g [id number] AccessH 13:31:00 13:31:00 RAINA e2-3gv0-12l 987-44fd-9 [facility] 0-xt7ybs040 3y6-e40772 0f4 gy5671 2020-06-16 2020-06-16 Emergency E TDSHOAIBI, [facility] [id number] [facility] 17:07:00 18:30:00 [facility] 2020-05-09 2020-05-09 Office [facility] 1.2.840.114 [id number] 10:39:00 12:28:08 Visit Andriy Jemma 350.1.13.21 0.2.7.2.686 [id number] 2020-05-09 2020-05-09 [facility] 1.2.840.114 [id number] [facility] 10:39:00 12:28:08 Visit Andriy Jemma 350.1.13.21 Co llege 0.2.7.2.686 of [id number] Medi tucker 510 e 2020-05-02 2020-05-02 Outpatient LIND, [facility] [id number] AccessH 07:40:00 07:40:00 RAINA [facility] 2020-05-02 2020-05-02 Outpatient LIND, [facility] [id number] AccessH 07:40:00 07:40:00 RAINA e2-8mo5-79e 3fa-4376-b ealt 0-bf3czg089 30f-56c383 0f4 1eo670 2020-04-26 2020-04-26 Outpatient LIND, [facility] [id number] AccessH 17:30:00 17:30:00 RAINA [facility] 2020-04-26 2020-04-26 OFFICE/OUT LIND, [facility] hkyw98wg-[id number] 0 [id number] AccessH 17:30:00 17:30:00 PATIENT RAINA e9-44df-910 2eb-4268-9 ealt VISIT EST 4-2k4e0of88 ab4-be1fd9 c82 140bd5 2020-04-25 2020-04-25 Telephone Wendy Cadena.2.840.1 [id number] Methodi 00:00:00 00:00:[address] 3.430.2.7 Hospit a .3.543861 l .8 2020-04-03 2020-04-03 Emergency ER SLS Emergency [id number] SLS 13:33:00 13:33:00 2019-11-24 2019-11-24 Emergency E JOSEPH [facility] ECC [id number] [place] 16:16:00 18:53:00 [facility] 2019-08-25 2019-08-25 OFFICE/OUT ALICIA, THOMAS [facility] [id number] [id number] AccessH 13:00:00 13:00:00 PATIENT e2-6lm2-82f 127-46d5-8 ealt VISIT EST 0-dg7eix478 47b-d5bc71 0f4 e6f56e 2019-08-23 2019-08-23 Outpatient Johanna LOPEZ [facility] LAB [id number] [place] 13:51:00 23:59:00 [facility] 2019-08-09 2019-08-09 Outpatient Johanna LOPEZ [facility] [id number] [place] 10:58:00 23:59:00 [facility] 2019-08-09 2019-08-09 Outpatient ALICIA, THOMAS [facility] [id number] AccessH 11:54:00 11:54:00 e2-9vp3-80h m80-65ei-8 ealth 0-ad5jry824 03e-0ac2cb 0f4 bbb9cd 2019-07-27 2019-07-27 Outpatient ALICIA, [facility] [id number] AccessH 08:36:00 08:36:00 e2-2pf0-65q 01b-49cd-b ealth 0-ey2bil518 7j6-fx5l4c 0f4 5mp931 2019-07-26 2019-07-26 OFFICE/OUT THOMAS ALICIA [facility] 5gn5i7s2-3u [id number] Access 10:00:00 10:00:00 PATIENT e2-8tu3-40t u02-2994-h ealth VISIT NEW 0-gh3ecg502 8cd-7117e6 0f4 8b346r 2019-07-06 2019-07-06 Outpatient C JOHN, [facility] [id number] [place] 15:11:00 23:59:00 NYLUKE [facility] 2019-06-06 2019-06-06 Emergency E JOSEPH, [facility] ECC [id number] [place] 08:50:00 10:45:00 [facility] 2019-06-05 2019-06-05 Emergency E JOSEPH, [facility] E[facility] [id number] [place] 18:16:00 20:00:00 [facility] 2019-05-28 2019-05-28 Emergency E ANGELA, [facility] [id number] [place] 17:43:00 18:58:00 JENNYFER [facility] 2019-05-19 2019-05-19 Outpatient C JUAN F FERNANDES, [facility] RAD [id number] [place] 12:14:00 23:59:00 DONAVAN [facility] 2019-05-12 2019-05-14 Outpatient E SHAQUILLE, [facility] MED [id number] [place] 21:11:00 19:00:00 JARVIS [facility] 2019-05-04 2019-05-04 Emergency E EMANI, [facility] [id number] [place] 16:50:00 18:25:00 CHANTELL [facility] 2019-03-08 2019-03-08 Emergency E MHFB MHFB 7501 MHFB 18:03:00 18:03:00 2019-02-20 2019-02-20 Emergency E OBED [facility] [id number] [facility] 17:51:00 21:47:00 JOSE JUAN [facility] 2019-02-04 2019-02-04 Emergency E EMANI, [facility] [id number] [place] 15:41:00 16:20:00 [facility] 2018-12-28 2018-12-28 Emergency E KRYSTLE LI [facility] [id number] [place] 07:17:00 09:30:00 [facility] 2018-12-05 2018-12-05 Emergency E KRYSTLE LI [facility] 1000 [id number] [place] 10:45:00 14:13:00 [facility] Results Test Description Test Time Test Comments Results Result [facility] Comments - NM GASTRIC 2022-06-25 EMPTYING 12:21:00 [facility] : 1980 Sex: F Patient Name: RHEA SPARKS Unit No: [id number] EXAMS: CPT CODE: [id number] NM GASTRIC EMPTYING 74610 EXAM: - NM GASTRIC EMPTYING HISTORY: ALTERED BOWEL FUNCTION, NAUSEA, DIARRHEA Location code:C3 COMPARISON: None TECHNIQUE: After the patient ingested 1.04 mCi TC 99m sulfur colloid mixed with food, sequential imaging was done over the anterior abdomen for 90 minutes. FINDINGS: The T 1/2 for gastric emptying was calculated to be 183 minutes (normal 45 to 110 minutes). IMPRESSION: Delayed gastric emptying can be seen with gastroparesis in the correct clinical setting. at 1221 Reported and signed by: Zachary Colin MD CC: Abelardo Gaona; Vielka Reno III, MD Technologist: Shivani Kirkpatrick RT(N) Transcrpt Date/Tm/Trnsp: 06/25/2022 (1221) t.KELLYR.[email or web address] Orig Print D/T: S: 06/25/2022 (1224) [facility] NAME: RHEA SPARKS [address] [facility] 200 PHYS: [place] [address] : 1980 AGE: 41 SEX: F LOC: REX PHONE #: [phone] EXAM DATE: 06/25/2022 STATUS: REG CLI FAX #: [phone] RADIOLOGY NO: PAGE 1 Signed Report Urine culture 2022-06-12 21:47:00 Test Item Value Reference Range Interpretation Comme nts Urine culture (test code = 1141940) SEE COMMENT B[facility]iuria screen negative[facility]2022-06-11 17:43:00 Test Item Value Reference Range Interpretation Comments COLOR (test code = COLU) YELLOW YELLOW CLARITY (test code = CLA) SLT HAZY CLEAR A GLUCOSE UR (test code = UA GLUCOSE) NEGATIVE NEGATIVE BILI UR (test code = BILE) NEGATIVE NEGATIVE KETONES UR (test code = ZULMA) NEGATIVE NEGATIVE SP GRAVITY (test code = SPGR) >=1.030 1.005-1.030 PH UR (test code = PH) 6.0 4.5-8.0 PROTEIN UR (test code = PU) TRACE NEGATIVE A UROBIL UR (test code = UROQ) 0.2 EU/dL 0.2-1.0 NITRITE UR (test code = NITRITE) NEGATIVE NEGATIVE BLOOD UR (test code = UA BLOOD) NEGATIVE NEGATIVE LEUK ES UR (test code = LEUK) NEGATIVE NEGATIVE WBC UR (test code = UWBC) 2 /HPF 0-5 RBC UR (test code = URBC) 2 /HPF 0-2 EPITH UR (test code = UEPC) FEW /LPF FEW BACTERIA UR (test code = UBACT) FEW /HPF NONE A CAST UR (test code = CAST) /LPF NONE CRYSTAL UR (test code = CRYU) / LPF NONE MUCUS UR (test code = MUC) FEW / HPF NONE A AMORPH UR (test code = MODE) / HPF NONE TRICH UR (test code = UTRICH) /HPF NONE YEAST UR (test code = UY) /HPF NONE SPERM UR (test code = USPERM) /HPF NONE KIDNEY IMAGING, SINGLE, FLOW/FUNCTION W/ [id number] 14:59:00Reason for Exam:->r10.9[facility] : 1980 Sex: FFINAL REPORT PROCEDURE: Functional RENAL SCAN with Diuretic Stimulation CPT CODE: [id number] INDICATION: R10.9 PROTOCOL: 10 mCi of Tc-99m MAG3 was injected intravenously. Renal flow images were obtained in the posterior projection, subsequent serial posterior images were obtained over 42 minutes. 40 mg of furosemide was injected intravenously, 19 minutes after tracer injection. FINDINGS: There is prompt perfusion of the kidneys. Initial renal activity is divided 56% to the left kidneyand 44% to the right kidney. Subsequent images show prompt tracer appearance in the calyces and renal pelves. Following diuretic injection, there is prompt tracer washout from the renal collecting systems. Half-emptying times were 8 minutes past peak activity on the left and 12 minutes on the right. IMPRESSION:1. Mildly decreased right renal function.2. Normal response to diuretic stimulation. There is no evidence of urinary obstruction. Signed: Harley Garcia MDReport Verified Date/Time: 06/07/2022 1 4:59:41 UA/M W/RFLX CULTURE, [id number] 13:09:00 Test Item Value Reference Range Interpretation Comments Specific [place], UA >=1.030 1.005-1.03 A (test code = 2965-2) pH, UA (test code = 5.5 5.0-7.5 5803-2) Color, UA (test code Yellow Yellow = 9796-4) Appearance (test code Turbid Clear A = 2311939) WBC Esterase (test Negative Negative code = 5934526) Protein, UA (test Trace Negative/T code = 20892-0) Glucose, Urine (test Negative Negative code = 68823-5) Ketones, UA (test Negative Negative code = 2514-8) Blood, UA (test code Trace Negative A = 00807-5) Bilirubin, UA (test Negative Negative code = 5770-3) Urobilinogen,Semi-Qn 0.2 mg/dL 0.2-1.0 (test code = 4672686) Nitrite, UA (test Negative Negative code = 23245-1) Microscopic See below: Microscopic was Examination (test indicated and was code = 2814100) performed. Urinalysis Reflex Comment This speci men has (test code = 2937163) reflex ed to a Urine Culture. LEXA (test code = LEXA) Specimen Comment: A courtesy copy of this report has been sent to [phone] rmed at: [address] [id number] Director: Shaq Hamilton MD, Phone: [phone] Lab Interpretation Abnormal (test code = 22328-6) [facility] [id number] 13:09:00 Test Item Value Reference Interpretation Comments Range Urine Culture, Final report A Routine (test code = 8622570) Result 1 (test code Escherichia coli A Mult i-Drug Resistant = ) OrganismGreater than 100,000 colony forming units p er mL Result 2 (test code Enterococcus A For Ente rococcus = ) faecalis species, aminoglycosides (except for high-levelresis tance screening), cephalosporins, clindamycin, andtrimethoprim -sulf amethoxazole ar e not effective clinically.(CLS I, C549-D59, 2016)Greater th an 100,000 colony forming units p er mL Antimicrobial Comment S = Susceptibility Susceptible; I = (test code = Intermediate; R = ) Resistant P = Positive; N = Negative MICS a re expressed in micrograms per mL Antibiotic RSLT #1 RSLT#2 RSLT#3 RSLT#4Amoxicill in/Cl avulanic Acid RAmpicillin RCefazolin RCef epime SCeftriaxone SCefuroxime ICiprofloxacin S SErtapenem SGentamicin SImipenem SLevofloxacin S SMeropenem SNitrofurantoin S SPenicillin SPiperacillin/T azoba ctam RTetracycl ine R RTobramycin STrimethoprim/S ulfa SVancomycin S LEXA (test code = Specimen LEXA) Comment: A courtesy copy of this report has been sent to [phone] rmed at: [facility] [address] [id number] Director: Shaq Hamilton MD, Phone: [phone] Lab Interpretation Abnormal (test code = 75195-7) [facility] [id number] 13:09:00 Test Item Value Reference Range Interpretation Comments WBC (test code = 0-5 See_Comment [Automated 20110415) message] The system which generated this result transmitted reference range : 0 - 5 /hpf. The reference range was not used to interpret this result as normal/abnormal . RBC (test code = 0-2 See_Comment [Automated 20110421) message] The system which generated this result transmitted reference range : 0 - 2 /hpf. The reference range was not used to interpret this result as normal/abnormal . Epithelial Cells (non >10 See_Comment A [Auto mated renal) (test code = message] The 20110429) system which generated this result transmitted reference range : 0 - 10 /hpf. Th e reference range was not used to interpret this result as normal/abnormal . Casts (test code = None seen None seen /lpf 20110423) Bacteria (test code = Many None seen/ A ) LEXA (test code = LEXA) Specimen Comment: A courtesy copy of this report has been sent to [phone] rmed at: [facility] [address] [place], [place] [id number] Director: Shaq Hamilton MD, Phone: [phone] Lab Interpretation Abnormal (test code = 81632-5) [facility] W/RFLX CULTURE, [id number] 13:09:00 Test Item Value Reference Range Interpretation Comments Specific [place], UA >=1.030 1.005-1.03 A (test code = 2965-2) pH, UA (test code = 5.5 5.0-7.5 5803-2) Color, UA (test code Yellow Yellow = 9796-4) Appearance (test code Turbid Clear A = 5917413) WBC Esterase (test Negative Negative code = 0157681) Protein, UA (test Trace Negative/T code = 27036-3) Glucose, Urine (test Negative Negative code = 85433-8) Ketones, UA (test Negative Negative code = 2514-8) Blood, UA (test code Trace Negative A = 02472-3) Bilirubin, UA (test Negative Negative code = 5770-3) Urobilinogen,Semi-Qn 0.2 mg/dL 0.2-1.0 (test code = 7556786) Nitrite, UA (test Negative Negative code = 21246-7) Microscopic See below: Microscopic was Examination (test indicated and was code = 9717006) performed. Urinalysis Reflex Comment This speci men has (test code = 0211067) reflex ed to a Urine Culture. LEXA (test code = LEXA) Specimen Comment: A courtesy copy of this report has been sent to [phone] rmed at: [facility] [id number] Director: Shaq Hamilton MD, Phone: [phone] Lab Interpretation Abnormal (test code = 55962-9) [facility], [id number] 13:09:00 Test Item Value Reference Interpretation Comments Range Urine Culture, Final report A Routine (test code = 7541320) Result 1 (test code Escherichia coli A Mult i-Drug Resistant = 1960299) OrganismGreater than 100,000 colony forming units p er mL Result 2 (test code Enterococcus A For Ente rococcus = ) faecalis species, aminoglycosides (except for high-levelresis tance screening), cephalosporins, clindamycin, andtrimethoprim -sulf amethoxazole ar e not effective clinically.(CLS I, G323-W11, 2016)Greater th an 100,000 colony forming units p er mL Antimicrobial Comment S = Suscep tible; Susceptibility I = Intermedi ate; R (test code = = Resistant P = 1641560) Positive; N = Negative MICS a re expressed in micrograms per mL Antibiotic RSLT #1 RSLT#2 RSLT#3 RSLT#4Amoxicill in/Cl avulanic Acid RAmpicillin RCefazolin RCef epime SCeftriaxone SCefuroxime ICiprofloxacin S SErtapenem SGentamicin SImipenem SLevofloxacin S SMeropenem SNitrofurantoin S SPenicillin SPiperacillin/T azoba ctam RTetracycl ine R RTobramycin STrimethoprim/S ulfa SVancomycin S LEXA (test code = Specimen LEXA) Comment: A courtesy copy of this report has been sent to [phone] rmed at: 01 - [facility] [address] [id number] Director: Shaq Hamilton MD, Phone: [phone] Lab Interpretation Abnormal (test code = 05056-4) [facility] CaliforniaMICROSCOPIC [id number] 13:09:00 Test Item Value Reference Range Interpretation Comments WBC (test code = 0-5 See_Comment [Automated 20110415) message] The system which generated this result transmitted reference range : 0 - 5 /hpf. The reference range was not used to interpret this result as normal/abnormal . RBC (test code = 0-2 See_Comment [Automated 20110421) message] The system which generated this result transmitted reference range : 0 - 2 /hpf. The reference range was not used to interpret this result as normal/abnormal . Epithelial Cells (non >10 See_Comment A [Auto mated renal) (test code = message] The 20110429) system which generated this result transmitted reference range : 0 - 10 /hpf. Th e reference range was not used to interpret this result as normal/abnormal . Casts (test code = None seen None seen /lpf 20110423) Bacteria (test code = Many None seen/ A ) LEXA (test code = LEXA) Specimen Comment: A courtesy copy of this report has been sent to [phone] rmed at: - [facility] [address] [place] [id number] Director: Shaq Hamilton MD, Phone: [phone] Lab Interpretation Abnormal (test code = 87622-8) [facility], RENAL, [id number] 15:58:00 [facility] 1980 Sex: FFINAL REPORT Patient: Rhea SparksDOB: 1980MRN: [id number] Accession number: [id number] TECHNIQUE: Grayscale ultrasound of the kidneys and bladder with Doppler and spectral analysis. INDICATION: Back pain. COMPARISON: None. FINDINGS: RIGHT KIDNEY: The right kidney is 10.8 x 4.6 x 4.5 cm. Cortical thickness is 1.2 cm. No solid mass lesions. No hydronephrosis. Renalartery and vein are patent. LEFT KIDNEY: The left kidney is 11.6 x 5.5 x 5.2 cm. Cortical thickness is 1.2 cm. No solid mass lesions. Mild hydronephrosis. Renal artery and vein are patent. BLADDER: Bladder is collapsed. IMPRESSION:Mild left hydronephrosis. Signed: Serjio Ruelas MDReport Verified Date/Time: 06/03/2022 15:58:58 Urine [id number] 09:22:24 Test Item Value Reference Range Interpretation Comments Result (test code = <10,000 col/mL skin 6463-4) layla [facility] California[facility] [id number] 09:22:24 Test Item Value Reference Range Interpretation Comments Result (test code = <10,000 col/mL skin 6463-4) layla [facility] CaliforniaU/S, RENAL, [id number] 23:46:00Reason for exam:->URINARY RETENTION, left flank pain, dysuria, passing stones, rescent stent removal. last us with mild hydro Pt recently reports being discharged on of this month and passing a kidney stone on . Pt states since then she has been having to strain to urinate and is havingdiffiulty urinating at all now.[facility] : 1980 Sex: FFINAL REPORT U/S, RENAL, COMPLETE CLINICAL STATEMENT: Urinary retention, left flank pain. COMPARISON: None FINDINGS: Liver is moderately diffusely echogenic consistent with fatty infiltration. No focal hepatic lesions. Right kidney measures 11.2 x 4.3 x 5.6 cm. Left kidney .1 x 4.8 x 5.8 cm. No hydronephrosis. Bladder is mildly distended and there are bilateral ureteraljets noted. Small right renal calculus suspected measuring 6 mm. Small left renal calculus measuring6 mm. No abdominal or pelvic ascites. IMPRESSION: Bilateral nephrolithiasis. No evidence for acute urinary obstruction. Signed: Cipriano Odonnell MDReport Verified Date/Time: 06/01/2022 23:46:11 Rapid drug screen, [id number] 20:42:19 Test Item Value Reference Range Interpretation Comments Barbiturate Screen Negative Negative (test code = 46526-4) Benzodiazepine Screen Negative Negative (test code = 53042-0) Cocaine (Metab.) Negative Negative Screen (test code = 3397-7) Methadone Screen (test Negative Negative code = 38783-5) Opiate Screen (test Positive Negative A code = 39856-7) Cannabinoid Screen Positive Negative A (test code = 75682-5) Amph/Methamph Screen Negative Negative (test code = 23428-4) Phencyclidine Screen Negative Negative (test code = 69291-8) pH, UA (test code = 6.0 5.0-8.0 5803-2) LEXA (test code = LEXA) DRUG CUTOFF CONC.Cocaine 300 ng/mL Cannabinoid 50 ng/mLBenzodiazepine 200 ng/mLBarbiturate 200 ng/mLPhencyclidine 25 ng/mLOpiate 300 ng/mLMethadone 300 ng/mLAmphetamine/ 1000 ng/mL Methamphetamine This assay provides an unconfirmed qualitative test result for the clinical management of patients in emergency situations. Chain of custody not maintained. Some chfe-dph-cxjyyuk medications, as well as adulterants, may cause inaccurate results. Clinical correlation should be applied. A more comprehensive drug screen or confirmation of a detected drug may be performed upon request.Motor Vehicle Examiner ID - DSENSONOperator ID - DSENSONOperator ID - DSENSONOperator ID - DSENSONOperator ID - DSENSONOperator ID - DSENSONOperator ID - DSENSONOperator ID - DSENSON Lab Interpretation Abnormal (test code = 65012-1) [facility] California[facility]apid drug screen, [id number] 20:42:19 Test Item Value Reference Range Interpretation Comments Barbiturate Screen Negative Negative (test code = 51187-2) Benzodiazepine Screen Negative Negative (test code = 75770-0) Cocaine (Metab.) Negative Negative Screen (test code = 3397-7) Methadone Screen (test Negative Negative code = 90972-4) Opiate Screen (test Positive Negative A code = 67934-8) Cannabinoid Screen Positive Negative A (test code = 46226-7) Amph/Methamph Screen Negative Negative (test code = 97896-2) Phencyclidine Screen Negative Negative (test code = 53490-7) pH, UA (test code = 6.0 5.0-8.0 5803-2) LEXA (test code = LEXA) DRUG CUTOFF CONC.Cocaine 300 ng/mL Cannabinoid 50 ng/mLBenzodiazepine 200 ng/mLBarbiturate 200 ng/mLPhencyclidine 25 ng/mLOpiate 300 ng/mLMethadone 300 ng/mLAmphetamine/ 1000 ng/mL Methamphetamine This assay provides an unconfirmed qualitative test result for the clinical management of patients in emergency situations. Chain of custody not maintained. Some irwr-dxj-rbqwssu medications, as well as adulterants, may cause inaccurate results. Clinical correlation should be applied. A more comprehensive drug screen or confirmation of a detected drug may be performed upon request.Motor Vehicle Examiner ID - DSENSONOperator ID - DSENSONOperator ID - DSENSONOperator ID - DSENSONOperator ID - DSENSONOperator ID - DSENSONOperator ID - DSENSONOperator ID - DSENSON Lab Interpretation Abnormal (test code = 18961-2) [facility] California[facility]ID DRUG SCREEN, [id number] 20:42:19 Test Item Value Reference Range Interpretation Comments BARBITURATE URINE (BEAKER) (test Negative Negative code = 725) BENZODIAZEPINE SCREEN URINE (BEAKER) Negative Negative (test code = 726) COCAINE (METAB.) SCREEN (BEAKER) Negative Negative (test code = 1164) METHADONE SCREEN (BEAKER) (test code Negative Negative = 1436) OPIATE SCREEN URINE (BEAKER) (test Positive Negative A code = 734) CANNABINOID SCREEN URINE (BEAKER) Positive Negative A (test code = 727) AMPH/METHAMPH SCREEN (BEAKER) (test Negative Negative code = 1438) PHENCYCLIDINE SCREEN URINE (BEAKER) Negative Negative (test code = 608) PH UA (BEAKER) (test code = 467) 6.0 5.0-8.0 DRUG CUTOFF CONC.Cocaine 300 ng/mL Cannabinoid 50 ng/mLBenzodiazepine 200 ng/mLBarbiturate 200 ng/mLPhencyclidine 25 ng/mLOpiate 300 ng/mLMethadone 300 ng/mLAmphetamine/ 1000 ng/mL MethamphetamineThis assay provides an unconfirmed qualitative test result for the clinical management of patients in emergency situations. Chain of custody not maintained. Some vand-jmr-xdxgltr medications, as well as adulterants, may cause inaccurate results. Clinical correlation should be applied. A more comprehensive drug screen or confirmation of a detected drug may be performed upon request.Motor Vehicle Examiner ID - DSENSONOperator ID - DSENSONOperator ID - DSENSONOperator ID - DSENSONOperator ID - DSENSONOperator ID - DSENSONOperator ID - DSENSONOperator ID - DSENSONPregnancy screen, urine 2022-06-01 20:26:19 Test Item Value Reference Range Interpretation Comments Preg Test, Ur (test code = 2112-1) Negative Negative Lab Interpretation (test code = Normal 24738-4) [facility] CaliforniaPregnancy screen, [id number] 20:26:19 Test Item Value Reference Range Interpretation Comments Preg Test, Ur (test code = 2112-1) Negative Negative Lab Interpretation (test code = Normal 39091-3) [facility] CaliforniaPREGNANCY SCREEN, [id number] 20:26:19 Test Item Value Reference Range Interpretation Comments TEST URINE (BEAKER) (test Negative Negative code = 583) BASIC METABOLIC [id number] 20:01:54 Test Item Value Reference Range Interpretation Comments SODIUM (BEAKER) 140 meq/L 135-148 (test code = 381) POTASSIUM 4.4 meq/L 3.6-5.5 (BEAKER) (test code = 379) CHLORIDE (BEAKER) 107 meq/L 98-106 H (test code = 382) CO2 (BEAKER) 22 meq/L 20-29 (test code = 355) BLOOD UREA 18 mg/dL 10-26 NITROGEN (BEAKER) (test code = 354) CREATININE 0.82 mg/dL 0.50-1.20 (BEAKER) (test code = 358) GLUCOSE RANDOM 99 mg/dL 70-110 (BEAKER) (test code = 652) CALCIUM (BEAKER) 9.0 mg/dL 8.5-10.5 (test code = 697) EGFR (BEAKER) 92 Interpretatio n of eGFR (test code = mL/min/1.73 values Stage De scription 1092) sq m Result G1 Caitlin l or high >=90 G2 Mildly decreased 60-89 G3a Mildl y to moderately 45-5 9 G3b Moderately to s everely 30-44 G4 Severl y decreased 15-29 G5 Kidney failure <15Reported eGF R is based on the CKD-EPI 2020 equation that d oes not use a race coefficientEsti mated GFR is not as accur ate as Creatinine Jaleesa enciso in predicting glom erular filtration rate . Estimated GFR is not appl icable for dialysis patien ts Motor Vehicle Examiner ID - DSENSONOperator ID - DSENSONOperator ID - DSENSONOperator ID - DSENSONOperator ID - DSENSONOperator ID - DSENSONOperator ID - DSENSONOperator ID - DSENSONOperator ID - DSENSONOperator ID - DSENSONOperator ID - DSENSONOperator ID - DSENSONUrinalysis w/[id number] 19:13:55 Test Item Value Reference Range Interpretation Comments Color, UA (test code = Yellow 5778-6) Clarity, UA (test code = Clear 5767-9) Specific [place], UA 1.025 1.001-1.035 (test code = 5811-5) pH, UA (test code = 6.0 5.0-8.0 5803-2) Protein, UA (test code = Negative Negative 09199-4) Glucose, UA (test code = Negative Negative 365) Ketones, UA (test code = Trace Negative A 2514-8) Bilirubin, UA (test code Negative Negative = 65239-0) Blood, UA (test code = Small Negative A 90121-6) Nitrite, UA (test code = Negative Negative 5802-4) Leukocytes, UA (test Negative Negative code = 5799-2) Urobilinogen, UA (test 0.2 code = 40889-7) Bacteria, UA (test code Moderate = 17523-0) RBC, UA (test code = <5 See_Comment [Autom ated message] 799-7) The system [employer] generated this result transmitted ref erence range: /HPF. Th e reference range was not used to int erpret this result as normal/abnormal . WBC, UA (test code = <5 See_Comment [Autom ated message] 17065-5) The system [employer] generated this result transmitted ref erence range: /HPF. Th e reference range was not used to int erpret this result as normal/abnormal . SQUAMOUS EPITHELIAL 10-20 See_Comment [Automa abdias message] (test code = 92783-5) The sy stem which generated this result transmitted ref erence range: /HPF. Th e reference range was not used to int erpret this result as normal/abnormal . Specimen Source (test code = 2795) Lab Interpretation (test Abnormal code = 90835-8) [facility] California[facility]inalysis w/[id number] 19:13:55 Test Item Value Reference Range Interpretation Comments Color, UA (test code = Yellow 5778-6) Clarity, UA (test code = Clear 5767-9) Specific [place], UA 1.025 1.001-1.035 (test code = 5811-5) pH, UA (test code = 6.0 5.0-8.0 5803-2) Protein, UA (test code = Negative Negative 67068-8) Glucose, UA (test code = Negative Negative 365) Ketones, UA (test code = Trace Negative A 2514-8) Bilirubin, UA (test code Negative Negative = 25205-3) Blood, UA (test code = Small Negative A 77646-1) Nitrite, UA (test code = Negative Negative 5802-4) Leukocytes, UA (test Negative Negative code = 5799-2) Urobilinogen, UA (test 0.2 code = 52614-9) Bacteria, UA (test code Moderate = 35643-9) RBC, UA (test code = <5 See_Comment [Autom ated message] 799-7) The system [employer] generated this result transmitted ref erence range: /HPF. Th e reference range was not used to int erpret this result as normal/abnormal . WBC, UA (test code = <5 See_Comment [Autom ated message] 45875-3) The system [employer] generated this result transmitted ref erence range: /HPF. Th e reference range was not used to int erpret this result as normal/abnormal . SQUAMOUS EPITHELIAL 10-20 See_Comment [Automa abdias message] (test code = 73391-2) The sy stem which generated this result transmitted ref erence range: /HPF. Th e reference range was not used to int erpret this result as normal/abnormal . Specimen Source (test code = 2795) Lab Interpretation (test Abnormal code = 71819-3) [facility] California[facility] W/ [id number] 19:13:55 Test Item Value Reference Range Interpretation Comments COLOR (BEAKER) (test code = 470) Yellow CLARITY (BEAKER) (test code = 469) Clear SPECIFIC GRAVITY UA (BEAKER) (test 1.025 1.001-1.035 code = 468) PH UA (BEAKER) (test code = 467) 6.0 5.0-8.0 PROTEIN UA (BEAKER) (test code = Negative Negative 464) GLUCOSE UA (BEAKER) (test code = Negative Negative 365) KETONES UA (BEAKER) (test code = Trace Negative A 371) BILIRUBIN UA (BEAKER) (test code = Negative Negative 462) BLOOD UA (BEAKER) (test code = Small Negative A 461) NITRITE UA (BEAKER) (test code = Negative Negative 465) LEUKOCYTE ESTERASE UA (BEAKER) Negative Negative (test code = 466) UROBILINOGEN UA (BEAKER) (test 0.2 code = 463) BACTERIA (BEAKER) (test code = Moderate 517) RBC UA-MANUAL (BEAKER) (test code <5 /HPF = 1659) WBC UA-MANUAL (BEAKER) (test code <5 /HPF = 1661) SQUAMOUS EPITHELIAL MANUAL 10-20 /HPF (BEAKER) (test code = 1663) SOURCE(BEAKER) (test code = 2795) POCT [id number] 11:59:00 Test Item Value Reference Range Interpretation Comments POCT PREG (test code = 1605) negative On board controls acceptable with present C Line (test code = 3574) POCT PREG LOT # (test code = 3575) [id number] POCT PREG TEST DATE (test 2023-10-09 code = 3576) Lab Interpretation (test code = Normal 43750-0) [facility]OLIC PAN[facility] (50277)2022-05-22 13:41:17 Test Item Value Reference Range Interpretation Comments NA (test code = 138 mmol/L 135-145 3590010262) K (test code = 4.7 mmol/L 3.5-5 7925143526) CL (test code = 105 mmol/L 98-108 7625216330) CO2 TOTAL (test code = 20 mmol/L 23-31 L 5062321985) AGAP (test code = 2-16 3051903536) BUN (test code = 9 mg/dL 7-23 9350808621) GLUCOSE (test code = 141 mg/dL 70-110 H 8126951858) CREATININE (test code = 0.80 mg/dL 0.5-1.04 3171644843) TOTAL BILI (test code = 0.4 mg/dL 0.1-1.5 1049226874) CALCIUM (test code = 9.4 mg/dL 8.6-10.6 3558681879) T PROTEIN (test code = 8.0 g/dL 6.3-8.2 2240975714) ALBUMIN (test code = 4.8 g/dL 3.5-5 8201777971) ALK PHOS (test code = 59 U/L 34-122 3400784724) ALTv (test code = 36 U/L 5-35 H 1742-6) AST(SGOT) (test code = 27 U/L 13-40 4969046194) eGFR (test code = mL/min/1.73m2 1190974065) LEXA (test code = LEXA) Association of Glomerular Filtration Rate (GFR) and Staging of Kidney Disease* + --+ --+ ------+| GFR (mL/min/1.73 m2) ?| With Kidney Damage ?| ?Without Kidney Damage+ --------+ --------+ +| ?>90 ?| ?Stage one ?| ? Normal ?+ ---+ ---+ -------+| ?60-89 ?| ?Stage two ?| ? Decreased GFR ? + --+ --+ ------+| ?30-59 ?| ?Stage three ?| ? Stage three ? + --+ --+ ------+| ?15-29 ?| ?Stage four ? | ? Stage four ?+ ---+ ---+ -------+| ?<15 (or dialysis) ? ?| ?Stage five ? | ? Stage five ?+ ---+ ---+ -------+ *Each stage assumes the associated GFR level has been in effect for at least three months. ?Stages 1 to 5, with or without kidney disease, indicate chronic kidney disease. Notes: Determination of stages one and two (with eGFR >59mL/min/1.73 m2) requires estimation of kidney damage for at least three months as defined by structural or functional abnormalities of the kidney, manifested by either:Pathological abnormalities or Markers of kidney damage (including abnormalities in the composition of the blood or urine or abnormalities in imaging tests). Lab Interpretation Abnormal (test code = 20622-5) [facility] CenterLIPASE2022-10-12 13:41:17 Test Item Value Reference Range Interpretation Comments LIPASE (test code = 2759464177) 107 U/L 0-220 Lab Interpretation (test code = Normal 40119-4) [facility] CenterCB WITH [id number] 13:29:34 Test Item Value Reference Range Interpretation Comments WBC (test code = See_Comment [Automated message] 4290-2) The system [employer] generated this result transmitted ref erence range: 4.30 - 1 1.10 10*3/?L. The re ference range was not u sed to interpret this result as normal/abnor mal. RBC (test code = See_Comment [Automated message] 419-8) The system [employer] generated this result transmitted ref erence range: 3.93 - 5 .25 10*6/?L. The re ference range was not u sed to interpret this result as normal/abnor mal. HGB (test code = 14.6 g/dL 11.6-15 718-7) HCT (test code = 42.8 % 35.7-45.2 4544-3) MCV (test code = 90.9 fL 80.6-95.5 787-2) MCH (test code = 31.0 pg 25.9-32.8 785-6) MCHC (test code = 34.1 g/dL 31.6-35.1 786-4) RDW-SD (test code 45.9 fL 39-49.9 = 08204-6) RDW-CV (test code 13.6 % 12-15.5 = 788-0) PLT (test code = See_Comment [Automated message] 567-3) The system [employer] generated this result transmitted ref erence range: 166 - 35 8 10*3/?L. The re ference range was not u sed to interpret this result as normal/abnor mal. MPV (test code = 11.6 fL 9.5-12.9 51539-1) NRBC/100 WBC (test See_Comment [Automat ed message] code = 3442612471) The [employer] which generated this result transmitted ref erence range: 0.0 - 10 .0 /100 WBCs. The refer ence range was not u sed to interpret this result as normal/abnor mal. NRBC x10^3 (test See_Comment [Automated message] code = 4749593593) The syste m which generated this result transmitted ref erence range: 10*3/?L. The reference range was not used to interpr et this result as normal/abnormal . GRAN MAT (NEUT) % 60.8 % (test code = 770-8) IMM GRAN % (test 0.40 % code = 4686878199) LYMPH % (test code 27.7 % = 736-9) MONO % (test code 7.9 % = 5905-5) EOS % (test code = 2.6 % 713-8) BASO % (test code 0.6 % = 706-2) GRAN MAT 4.16 10*3/uL 1.88-7.09 x10^3(ANC) (test code = 4220553845) IMM GRAN x10^3 0.03 10*3/uL 0-0.06 (test code = 6269296723) LYMPH x10^3 (test 1.90 10*3/uL 1.32-3.29 code = 731-0) MONO x10^3 (test 0.54 10*3/uL 0.33-0.92 code = 742-7) EOS x10^3 (test 0.18 10*3/uL 0.03-0.39 code = 711-2) BASO x10^3 (test 0.04 10*3/uL 0.01-0.07 code = 704-7) [facility]PO[facility] [id number] 13:25:00 Test Item Value Reference Range Interpretation Comments POCT PREG (test code = 1605) negative On board controls acceptable with present C Line (test code = 3574) POCT PREG LOT # (test code = 3575) [id number] POCT PREG TEST DATE (test 10/09/2023 code = 3576) Lab Interpretation (test code = Normal 42592-1) [facility], RENAL, [id number] 17:07:00 [facility] 1980 Sex: FFINAL REPORT Name: Rhea FuentesdMRN: [id number]: [id number] and Time:05/20/2022 at 4:40 PM EXAM: RENAL ULTRASOUND, 05/20/2022 4:40 PM CLINICAL INDICATION: 41 years Female renal stone COMPARISON: Renal ultrasound dated 05/20/2022. FINDINGS: The right kidney measures 10.7cm and the left kidney measures 11.7 cm. Both kidneys demonstrate normal cortical thickness and corti comedullary differentiation. Slight increased echogenicity of the left kidney. There is no sonographically detectable renal calculi. No right hydronephrosis. Mild left-sided hydronephrosis. The urinarybladder is partially fluid filled and unremarkable. IMPRESSION:1.Increased echogenicity of the left kidney and mild left-sided hydronephrosis.2.Normal right kidney. Signed: Anusha Connor Verified Date/Time: 05/20/2022 17:07:34 Reading Location: [facility] Radiology Reading Room URINE [id number] 09:58:33 Test Item Value Reference Range Interpretation Comments CULTURE (BEAKER) (test 10-19,000 col/mL skin code = 1095) layla URINE [id number] 10:57:29 Test Item Value Reference Range Interpretation Comments CULTURE (BEAKER) (test code = 1095) No growth [id number] 04:02:14 Test Item Value Reference Range Interpretation Comments MAGNESIUM (BEAKER) (test code = 1.8 mg/dL 1.5-3.0 627) Motor Vehicle Examiner ID - [id number] ID - [id number] ID - [id number] ID - [id number] METABOLIC [id number] 04:00:38 Test Item Value Reference Range Interpretation Comments SODIUM (BEAKER) 137 meq/L 135-148 (test code = 381) POTASSIUM 4.5 meq/L 3.6-5.5 (BEAKER) (test code = 379) CHLORIDE (BEAKER) 106 meq/L 98-106 (test code = 382) CO2 (BEAKER) 21 meq/L 20-29 (test code = 355) BLOOD UREA 12 mg/dL 10-26 NITROGEN (BEAKER) (test code = 354) CREATININE 0.71 mg/dL 0.50-1.20 (BEAKER) (test code = 358) GLUCOSE RANDOM 105 mg/dL 70-110 (BEAKER) (test code = 652) CALCIUM (BEAKER) 8.4 mg/dL 8.5-10.5 L (test code = 697) EGFR (BEAKER) 109 Interpretatio n of eGFR (test code = mL/min/1.73 values Stage De scription 1092) sq m Result G1 Caitlin l or high >=90 G2 Mildly decreased 60-89 G3a Mildl y to moderately 45-5 9 G3b Moderately to s everely 30-44 G4 Severl y decreased 15-29 G5 Kidney failure <15Reported eGF R is based on the CKD-EPI 2020 equation that d oes not use a race coefficientEsti mated GFR is not as accur ate as Creatinine Jaleesa enciso in predicting glom erular filtration rate . Estimated GFR is not appl icable for dialysis patien ts Motor Vehicle Examiner ID - [id number] ID - [id number] ID - [id number] ID - [id number] ID - [id number] ID - [id number] ID - [id number] ID - [id number] ID - [id number] 03:59:15 Test Item Value Reference Range Interpretation Comments PHOSPHORUS (BEAKER) (test code = 3.6 mg/dL 2.5-4.5 604) Motor Vehicle Examiner ID - [id number] W/PLT COUNT & AUTO [id number] 03:44:00 Test Item Value Reference Range Interpretation Comments WHITE BLOOD CELL COUNT (BEAKER) 7.6 K/ L 4.0-10.0 (test code = 775) RED BLOOD CELL COUNT (BEAKER) 3.65 M/ L 4.00-5.00 L (test code = 761) HEMOGLOBIN (BEAKER) (test code = 11.5 GM/DL 12.0-15.5 L 410) HEMATOCRIT (BEAKER) (test code = 35.9 % 36.0-46.0 L 411) MEAN CORPUSCULAR VOLUME (BEAKER) 98.4 fL 82.0-99.0 (test code = 753) MEAN CORPUSCULAR HEMOGLOBIN 31.5 pg 27.0-33.0 (BEAKER) (test code = 751) MEAN CORPUSCULAR HEMOGLOBIN CONC 32.0 GM/DL 32.0-36.0 (BEAKER) (test code = 752) RED CELL DISTRIBUTION WIDTH 13.3 % 12.0-15.0 (BEAKER) (test code = 412) PLATELET COUNT (BEAKER) (test 199 K/CU MM 150-430 code = 756) MEAN PLATELET VOLUME (BEAKER) 11.4 fL 6.0-11.5 (test code = 754) NUCLEATED RED BLOOD CELLS 0 /100 WBC 0-0 (BEAKER) (test code = 413) NEUTROPHILS RELATIVE PERCENT 57 % (BEAKER) (test code = 429) LYMPHOCYTES RELATIVE PERCENT 30 % (BEAKER) (test code = 430) MONOCYTES RELATIVE PERCENT 8 % (BEAKER) (test code = 431) EOSINOPHILS RELATIVE PERCENT 5 % (BEAKER) (test code = 432) BASOPHILS RELATIVE PERCENT 0 % (BEAKER) (test code = 437) NEUTROPHILS ABSOLUTE COUNT 4.30 K/ L 1.80-8.00 (BEAKER) (test code = 670) LYMPHOCYTES ABSOLUTE COUNT 2.25 K/ L 1.48-4.50 (BEAKER) (test code = 414) MONOCYTES ABSOLUTE COUNT (BEAKER) 0.61 K/ L 0.00-1.30 (test code = 415) EOSINOPHILS ABSOLUTE COUNT 0.34 K/ L 0.00-0.50 (BEAKER) (test code = 416) BASOPHILS ABSOLUTE COUNT (BEAKER) 0.03 K/ L 0.00-0.20 (test code = 417) IMMATURE GRANULOCYTES-RELATIVE 0 % 0-0 PERCENT (BEAKER) (test code = 2801) URINALYSIS W/ [id number] 05:45:45 Test Item Value Reference Range Interpretation Comments COLOR (BEAKER) (test Helen This is a corrected code = 470) result. Previou s result was Othe r on 04/28/2022 at 04 55 CDT CLARITY (BEAKER) (test Turbid code = 469) SPECIFIC GRAVITY UA >= 1.001-1.035 (BEAKER) (test code = 468) PH UA (BEAKER) (test 6.0 5.0-8.0 code = 467) PROTEIN UA (BEAKER) >=300 mg/dL Negative A (test code = 464) GLUCOSE UA (BEAKER) 100 mg/dL Negative A (test code = 365) KETONES UA (BEAKER) Trace Negative A (test code = 371) BILIRUBIN UA (BEAKER) Positive Negative A (test code = 462) BLOOD UA (BEAKER) (test Large Negative A code = 461) NITRITE UA (BEAKER) Positive Negative A (test code = 465) LEUKOCYTE ESTERASE UA Trace Negative A (BEAKER) (test code = 466) UROBILINOGEN UA 4.0 mg/dL 0.2-1.0 H (BEAKER) (test code = 463) BACTERIA (BEAKER) (test Few code = 517) RBC UA-MANUAL (BEAKER) >100 /HPF (test code = 1659) WBC UA-MANUAL (BEAKER) <5 /HPF (test code = 1661) SQUAMOUS EPITHELIAL <5 /HPF MANUAL (BEAKER) (test code = 1663) SOURCE(BEAKER) (test code = 2795) [id number] 05:26:52 Test Item Value Reference Range Interpretation Comments MAGNESIUM (BEAKER) (test code = 2.2 mg/dL 1.5-3.0 627) Motor Vehicle Examiner ID - LITOOperator ID - LITOOperator ID - LITOOperator ID - LITOBASIC METABOLIC [id number] 05:25:14 Test Item Value Reference Range Interpretation Comments SODIUM (BEAKER) 140 meq/L 135-148 (test code = 381) POTASSIUM 4.5 meq/L 3.6-5.5 (BEAKER) (test code = 379) CHLORIDE (BEAKER) 106 meq/L 98-106 (test code = 382) CO2 (BEAKER) 22 meq/L 20-29 (test code = 355) BLOOD UREA 15 mg/dL 10-26 NITROGEN (BEAKER) (test code = 354) CREATININE 0.80 mg/dL 0.50-1.20 (BEAKER) (test code = 358) GLUCOSE RANDOM 92 mg/dL 70-110 (BEAKER) (test code = 652) CALCIUM (BEAKER) 8.2 mg/dL 8.5-10.5 L (test code = 697) EGFR (BEAKER) 94 Interpretatio n of eGFR (test code = mL/min/1.73 values Stage De scription 1092) sq m Result G1 Caitlin l or high >=90 G2 Mildly decreased 60-89 G3a Mildl y to moderately 45-5 9 G3b Moderately to s everely 30-44 G4 Severl y decreased 15-29 G5 Kidney failure <15Reported eGF R is based on the CKD-EPI 2020 equation that d oes not use a race coefficientEsti mated GFR is not as accur ate as Creatinine Jaleesa enciso in predicting glom erular filtration rate . Estimated GFR is not appl icable for dialysis patien ts Motor Vehicle Examiner ID - LITOOperator ID - LITOOperator ID - LITOOperator ID - LITOOperator ID - LITOOperator ID - LITOOperator ID - LITOOperator ID - LITOOperator ID - [id number] 05:23:50 Test Item Value Reference Range Interpretation Comments PHOSPHORUS (BEAKER) (test code = 4.0 mg/dL 2.5-4.5 604) Motor Vehicle Examiner ID - LITOCBC W/PLT COUNT & AUTO [id number] 05:03:26 Test Item Value Reference Range Interpretation Comments WHITE BLOOD CELL COUNT (BEAKER) 7.4 K/ L 4.0-10.0 (test code = 775) RED BLOOD CELL COUNT (BEAKER) 3.69 M/ L 4.00-5.00 L (test code = 761) HEMOGLOBIN (BEAKER) (test code = 11.4 GM/DL 12.0-15.5 L 410) HEMATOCRIT (BEAKER) (test code = 34.3 % 36.0-46.0 L 411) MEAN CORPUSCULAR VOLUME (BEAKER) 93.0 fL 82.0-99.0 (test code = 753) MEAN CORPUSCULAR HEMOGLOBIN 30.9 pg 27.0-33.0 (BEAKER) (test code = 751) MEAN CORPUSCULAR HEMOGLOBIN CONC 33.2 GM/DL 32.0-36.0 (BEAKER) (test code = 752) RED CELL DISTRIBUTION WIDTH 13.5 % 12.0-15.0 (BEAKER) (test code = 412) PLATELET COUNT (BEAKER) (test 253 K/CU MM 150-430 code = 756) MEAN PLATELET VOLUME (BEAKER) 11.3 fL 6.0-11.5 (test code = 754) NUCLEATED RED BLOOD CELLS 0 /100 WBC 0-0 (BEAKER) (test code = 413) NEUTROPHILS RELATIVE PERCENT 45 % (BEAKER) (test code = 429) LYMPHOCYTES RELATIVE PERCENT 39 % (BEAKER) (test code = 430) MONOCYTES RELATIVE PERCENT 9 % (BEAKER) (test code = 431) EOSINOPHILS RELATIVE PERCENT 6 % (BEAKER) (test code = 432) BASOPHILS RELATIVE PERCENT 1 % (BEAKER) (test code = 437) NEUTROPHILS ABSOLUTE COUNT 3.36 K/ L 1.80-8.00 (BEAKER) (test code = 670) LYMPHOCYTES ABSOLUTE COUNT 2.89 K/ L 1.48-4.50 (BEAKER) (test code = 414) MONOCYTES ABSOLUTE COUNT (BEAKER) 0.66 K/ L 0.00-1.30 (test code = 415) EOSINOPHILS ABSOLUTE COUNT 0.47 K/ L 0.00-0.50 (BEAKER) (test code = 416) BASOPHILS ABSOLUTE COUNT (BEAKER) 0.04 K/ L 0.00-0.20 (test code = 417) IMMATURE GRANULOCYTES-RELATIVE 0 % 0-0 PERCENT (BEAKER) (test code = 2801) CT, [id number] 20:43:00Unlisted Reason for Exam - Click Yes and Enter Reason Below->NoIs this for enterography?->NoWill this procedure require oral contrast?->No [facility] 1980 Sex: FFINAL REPORT CT, ABDOMEN \\T\\ PELVIS, WITHOUT IV CONTRAST CLINICAL STATEMENT: Flank pain, kidney stone. Dose modulation, iterative reconstruction, and/or weight-based adjustment of the mA/kV was utilized to reduce the radiation dose to as low as reasonably achievable. Compared to CTabdomen pelvis dated 03/18/2022. FINDINGS: Visualized lung bases are within normal limits. Liver, splee n, pancreas, adrenal glands are within normal limits. Status post cholecystectomy. No biliary dilatation. There is a left indwelling ureteral stent noted. No suspicious renal calculi are noted. No hydronephrosis. Bladder and gynecologic organs are unremarkable. No dilated loops of bowel to suggest obstruction. Mild amount of stool in the colon. No free fluid or free air. No abdominal or pelvic lymphadenopathy. Abdominal aorta is mildly calcified without aneurysm. IMPRESSION: Left indwelling ureteralstent in appropriate placement. No significant hydronephrosis. Signed: Cipriano Odonnell MDReport VerifiedDate/Time: 04/27/2022 20:43:07 U/S, [id number] 15:08:00Reason for exam:->left flank painShould this be performed at the bedside?->Yes [facility] 1980 Sex: FFINAL REPORT EXAMINATION: U/S, PELVIS. INDICATION: 41-year-old female with left flank pain. LMP on 04/24/2022. COMPARISON: CT abdomen and pelvis dated 03/30/2022. FINDINGS: Uterus:Theuterus is anteverted and measures 10.5 x 4.4 x 5.5 cm; the endometrial stripe is homogeneous and measures 0.7 cm. No evidence of uterine fibroids. Right adnexa:The right ovary measures 4.3 x 3.3 x 3.4 cm. No suspicious adnexal lesions. Left adnexa:The left ovary measures 2.9 x 2.2 x 2.6 cm. No suspicious adnexal lesions. Other:No evidence of free pelvic fluid. IMPRESSION:1.No sonographic evidence of uterine fibroids. Endometrial stripe measures 0.7 cm.2.No suspicious adnexal lesions. Signed: Zuleika Irizarry MDReport Verified Date/Time: 04/27/2022 15:08:10 Reading Location: [facility] C013X [facility] Consult Reading Room U/S, ABDOMINAL, [id number] 15:04:00Reason for exam:- >left flank painShould this be performed at the bedside?->Yes [facility] 1980 Sex: FFINAL REPORT ABDOMINAL ULTRASOUND HISTORY: Left flank pain COMPARISON: CT of theabdomen of 03/18/2022 TECHNIQUE: Real-time ultrasound of the abdomen was performed. FINDINGS: There kellie diffuse increase in hepatic echogenicity suggestive of diffuse hepatic parenchymal disease such asfatty infiltration. Hepatic length is 16.9 cm. No mass lesion is visualized. Gallbladder surgically absent. The common bile duct is normal in caliber in a postcholecystectomy patient, measuring 7.6 mm.The main portal vein is normal in caliber, measuring 10.6 mm. The spleen is normal in size, measuring 10.6 cm in length. The pancreas was suboptimally visualized due to interfering bowel gas and patient body habitus. No ascites or pleural effusions. The kidneys are normal in size, contour, and echogenicity. The right kidney measures 11.3 cm in length and the left kidney measures 11.9 cm in length. Nohydronephrosis, mass lesion or stones are visualized. There is limited visualization of the abdominal aorta, inferior vena cava, and hepatic veins due to patient body habitus and interfering bowel gas.IMPRESSION: 1. Mild hepatomegaly. Fatty liver. 2. Prior cholecystectomy. 3. No evidence of hydronephrosis. 4. Limited visualization of the deep structures of the abdomen. Signed: Zuleika Echols MDReport Verified Date/Time: 04/27/2022 15:04:18 Reading Location: [address] Reading Room RAD, ABDOMEN/KUB 1 VIEW AP 2022-04-27 09:46:00Reason for exam:->left flank painShould this be performed at the bedside?->Yes [facility] : 1980 Sex: FFINAL REPORT EXAMINATION: RAD, ABDOMEN/KUB 1 VIEW AP. INDICATION: 41-year-old female with left flank pain. COMPARISON: None. FINDINGS:Gas is scattered throughout the bowel. No dilated loops of bowel. No evidence of pneumatosis or portal venous gas. No pathologic calcifications. No acute osseous abnormality. A left ureteral stent is noted. Cholecystectomy clips are noted. IMPRESSION:1.No definite urinary calculus is identified on plain film.2.Normal bowel gas pattern without evidence of obstruction or ileus. Signed: Zuleika Irizarry Verified Date/Time: 04/27/2022 09:46:57 Reading Location: [address] Ortho Consult Reading Room [id number] 06:38:11 Test Item Value Reference Range Interpretation Comments MAGNESIUM (BEAKER) (test code = 2.2 mg/dL 1.5-3.0 627) Motor Vehicle Examiner ID - [id number] ID - [id number] ID - [id number] ID - [id number] METABOLIC [id number] 06:36:45 Test Item Value Reference Range Interpretation Comments SODIUM (BEAKER) 140 meq/L 135-148 (test code = 381) POTASSIUM 4.3 meq/L 3.6-5.5 (BEAKER) (test code = 379) CHLORIDE (BEAKER) 107 meq/L 98-106 H (test code = 382) CO2 (BEAKER) 22 meq/L 20-29 (test code = 355) BLOOD UREA 15 mg/dL 10-26 NITROGEN (BEAKER) (test code = 354) CREATININE 0.78 mg/dL 0.50-1.20 (BEAKER) (test code = 358) GLUCOSE RANDOM 95 mg/dL 70-110 (BEAKER) (test code = 652) CALCIUM (BEAKER) 8.6 mg/dL 8.5-10.5 (test code = 697) EGFR (BEAKER) 97 Interpretatio n of eGFR (test code = mL/min/1.73 values Stage De scription 1092) sq m Result G1 Caitlin l or high >=90 G2 Mildly decreased 60-89 G3a Mildl y to moderately 45-5 9 G3b Moderately to s everely 30-44 G4 Severl y decreased 15-29 G5 Kidney failure <15Reported eGF R is based on the CKD-EPI 2021 equation that d oes not use a race coefficientEsti mated GFR is not as accur ate as Creatinine Jaleesa fernie in predicting glom erular filtration rate . Estimated GFR is not appl icable for dialysis patien ts Motor Vehicle Examiner ID - [id number] ID - [id number] ID - [id number] ID - [id number] ID - [id number] ID - [id number] ID - [id number] ID - [id number] ID - [id number] 06:35:28 Test Item Value Reference Range Interpretation Comments PHOSPHORUS (BEAKER) (test code = 3.4 mg/dL 2.5-4.5 604) Motor Vehicle Examiner ID - [id number] W/PLT COUNT & AUTO [id number] 06:10:24 Test Item Value Reference Range Interpretation Comments WHITE BLOOD CELL COUNT (BEAKER) 7.5 K/ L 4.0-10.0 (test code = 775) RED BLOOD CELL COUNT (BEAKER) 3.92 M/ L 4.00-5.00 L (test code = 761) HEMOGLOBIN (BEAKER) (test code = 12.1 GM/DL 12.0-15.5 410) HEMATOCRIT (BEAKER) (test code = 36.5 % 36.0-46.0 411) MEAN CORPUSCULAR VOLUME (BEAKER) 93.1 fL 82.0-99.0 (test code = 753) MEAN CORPUSCULAR HEMOGLOBIN 30.9 pg 27.0-33.0 (BEAKER) (test code = 751) MEAN CORPUSCULAR HEMOGLOBIN CONC 33.2 GM/DL 32.0-36.0 (BEAKER) (test code = 752) RED CELL DISTRIBUTION WIDTH 13.7 % 12.0-15.0 (BEAKER) (test code = 412) PLATELET COUNT (BEAKER) (test 275 K/CU MM 150-430 code = 756) MEAN PLATELET VOLUME (BEAKER) 11.3 fL 6.0-11.5 (test code = 754) NUCLEATED RED BLOOD CELLS 0 /100 WBC 0-0 (BEAKER) (test code = 413) NEUTROPHILS RELATIVE PERCENT 43 % (BEAKER) (test code = 429) LYMPHOCYTES RELATIVE PERCENT 43 % (BEAKER) (test code = 430) MONOCYTES RELATIVE PERCENT 9 % (BEAKER) (test code = 431) EOSINOPHILS RELATIVE PERCENT 5 % (BEAKER) (test code = 432) BASOPHILS RELATIVE PERCENT 1 % (BEAKER) (test code = 437) NEUTROPHILS ABSOLUTE COUNT 3.23 K/ L 1.80-8.00 (BEAKER) (test code = 670) LYMPHOCYTES ABSOLUTE COUNT 3.23 K/ L 1.48-4.50 (BEAKER) (test code = 414) MONOCYTES ABSOLUTE COUNT (BEAKER) 0.64 K/ L 0.00-1.30 (test code = 415) EOSINOPHILS ABSOLUTE COUNT 0.37 K/ L 0.00-0.50 (BEAKER) (test code = 416) BASOPHILS ABSOLUTE COUNT (BEAKER) 0.04 K/ L 0.00-0.20 (test code = 417) IMMATURE GRANULOCYTES-RELATIVE 0 % 0-0 PERCENT (BEAKER) (test code = 2801) [id number] 07:02:11 Test Item Value Reference Range Interpretation Comments MAGNESIUM (BEAKER) (test code = 2.4 mg/dL 1.5-3.0 627) Motor Vehicle Examiner ID - DSENSONOperator ID - DSENSONOperator ID - DSENSONOperator ID - DSENSONBASIC METABOLIC [id number] 07:00:54 Test Item Value Reference Range Interpretation Comments SODIUM (BEAKER) 139 meq/L 135-148 (test code = 381) POTASSIUM 4.1 meq/L 3.6-5.5 (BEAKER) (test code = 379) CHLORIDE (BEAKER) 106 meq/L 98-106 (test code = 382) CO2 (BEAKER) 20 meq/L 20-29 (test code = 355) BLOOD UREA 13 mg/dL 10-26 NITROGEN (BEAKER) (test code = 354) CREATININE 0.80 mg/dL 0.50-1.20 (BEAKER) (test code = 358) GLUCOSE RANDOM 76 mg/dL 70-110 (BEAKER) (test code = 652) CALCIUM (BEAKER) 8.2 mg/dL 8.5-10.5 L (test code = 697) EGFR (BEAKER) 94 Interpretatio n of eGFR (test code = mL/min/1.73 values Stage De scription 1092) sq m Result G1 Caitlin l or high >=90 G2 Mildly decreased 60-89 G3a Mildl y to moderately 45-5 9 G3b Moderately to s everely 30-44 G4 Severl y decreased 15-29 G5 Kidney failure <15Reported eGF R is based on the CKD-EPI 2020 equation that d oes not use a race coefficientEsti mated GFR is not as accur ate as Creatinine Jaleesa fernie in predicting glom erular filtration rate . Estimated GFR is not appl icable for dialysis patien ts Motor Vehicle Examiner ID - DSENSONOperator ID - DSENSONOperator ID - DSENSONOperator ID - DSENSONOperator ID - DSENSONOperator ID - DSENSONOperator ID - DSENSONOperator ID - DSENSONOperator ID - [id number] 06:59:32 Test Item Value Reference Range Interpretation Comments PHOSPHORUS (BEAKER) (test code = 3.9 mg/dL 2.5-4.5 604) Motor Vehicle Examiner ID - [id number] W/PLT COUNT & AUTO [id number] 06:37:03 Test Item Value Reference Range Interpretation Comments WHITE BLOOD CELL COUNT 8.5 K/ L 4.0-10.0 (BEAKER) (test code = 775) RED BLOOD CELL COUNT 3.99 M/ L 4.00-5.00 L (BEAKER) (test code = 761) HEMOGLOBIN (BEAKER) (test 12.5 GM/DL 12.0-15.5 code = 410) HEMATOCRIT (BEAKER) (test 38.3 % 36.0-46.0 code = 411) MEAN CORPUSCULAR VOLUME 96.0 fL 82.0-99.0 (BEAKER) (test code = 753) MEAN CORPUSCULAR 31.3 pg 27.0-33.0 HEMOGLOBIN (BEAKER) (test code = 751) MEAN CORPUSCULAR 32.6 GM/DL 32.0-36.0 HEMOGLOBIN CONC (BEAKER) (test code = 752) RED CELL DISTRIBUTION 13.4 % 12.0-15.0 WIDTH (BEAKER) (test code = 412) PLATELET COUNT (BEAKER) 269 K/CU MM 150-430 NO C LOT DETECTED (test code = 756) MEAN PLATELET VOLUME 12.2 fL 6.0-11.5 H (BEAKER) (test code = 754) NUCLEATED RED BLOOD CELLS 0 /100 WBC 0-0 (BEAKER) (test code = 413) NEUTROPHILS RELATIVE 43 % PERCENT (BEAKER) (test code = 429) LYMPHOCYTES RELATIVE 45 % PERCENT (BEAKER) (test code = 430) MONOCYTES RELATIVE 7 % PERCENT (BEAKER) (test code = 431) EOSINOPHILS RELATIVE 5 % PERCENT (BEAKER) (test code = 432) BASOPHILS RELATIVE 1 % PERCENT (BEAKER) (test code = 437) NEUTROPHILS ABSOLUTE 3.68 K/ L 1.80-8.00 COUNT (BEAKER) (test code = 670) LYMPHOCYTES ABSOLUTE 3.82 K/ L 1.48-4.50 COUNT (BEAKER) (test code = 414) MONOCYTES ABSOLUTE COUNT 0.57 K/ L 0.00-1.30 (BEAKER) (test code = 415) EOSINOPHILS ABSOLUTE 0.39 K/ L 0.00-0.50 COUNT (BEAKER) (test code = 416) BASOPHILS ABSOLUTE COUNT 0.05 K/ L 0.00-0.20 (BEAKER) (test code = 417) IMMATURE 0 % 0-0 GRANULOCYTES-RELATIVE PERCENT (BEAKER) (test code = 2801) Urinalysis w/Microscopic + Reflex to [id number] 14:33:57 Test Item Value Reference Range Interpretation Comments Color, UA (test code [place] = 5778-6) Clarity, UA (test Turbid code = 5767-9) Specific [place], UA >=1.030 1.001-1.035 (test code = 5811-5) pH, UA (test code = 5.5 5.0-8.0 5803-2) Protein, UA (test >=300 mg/dL Negative A code = 04370-2) Glucose, UA (test 250 mg/dL Negative A code = 365) Ketones, UA (test Trace Negative A code = 2514-8) Bilirubin, UA (test Positive Negative A code = 34055-6) Blood, UA (test code Large Negative A = 67322-9) Nitrite, UA (test Positive Negative A code = 5802-4) Leukocytes, UA (test Moderate Negative A code = 5799-2) Urobilinogen, UA >=8.0 0.2-1.0 H (test code = 91965-4) Bacteria, UA (test Occasional code = 92694-9) RBC, UA (test code = 20-50 See_Comment This is a 799-7) corrected resul t. Previous result was 10-20 /HPF on 04/25/2022 at 14 16 CDT [Automated message] The system which generated this result transmitted reference range : /HPF. The reference range was not used to interpret this result as normal/abnormal . WBC, UA (test code = 5-10 See_Comment [Autom ated 99059-8) message] The system which generated this result transmitted reference range : /HPF. The reference range was not used to interpret this result as normal/abnormal . SQUAMOUS EPITHELIAL <5 See_Comment [Automa abdias (test code = 59882-1) messag e] The system which generated this result transmitted reference range : /HPF. The reference range was not used to interpret this result as normal/abnormal . Specimen Source (test code = 2795) LEXA (test code = LEXA) COLOR MAY INTERFERE WITH RESULTS Lab Interpretation Abnormal (test code = 43380-5) [facility] Reflex to Culture 2022-04-25 14:33:57 Test Item Value Reference Range Interpretation Comments Color, UA (test code [place] = 5778-6) Clarity, UA (test Turbid code = 5767-9) Specific [place], UA >=1.030 1.001-1.035 (test code = 5811-5) pH, UA (test code = 5.5 5.0-8.0 5803-2) Protein, UA (test >=300 mg/dL Negative A code = 56351-8) Glucose, UA (test 250 mg/dL Negative A code = 365) Ketones, UA (test Trace Negative A code = 2514-8) Bilirubin, UA (test Positive Negative A code = 84503-9) Blood, UA (test code Large Negative A = 69697-5) Nitrite, UA (test Positive Negative A code = 5802-4) Leukocytes, UA (test Moderate Negative A code = 5799-2) Urobilinogen, UA >=8.0 0.2-1.0 H (test code = 71139-2) Bacteria, UA (test Occasional code = 06373-5) RBC, UA (test code = 20-50 See_Comment This is a 799-7) corrected resul t. Previous result was 10-20 /HPF on 04/25/2022 at 14 16 CDT [Automated message] The system which generated this result transmitted reference range : /HPF. The reference range was not used to interpret this result as normal/abnormal . WBC, UA (test code = 5-10 See_Comment [Autom ated 61977-9) message] The system which generated this result transmitted reference range : /HPF. The reference range was not used to interpret this result as normal/abnormal . SQUAMOUS EPITHELIAL <5 See_Comment [Automa abdias (test code = 41520-7) messag e] The system which generated this result transmitted reference range : /HPF. The reference range was not used to interpret this result as normal/abnormal . Specimen Source (test code = 2795) LEXA (test code = LEXA) COLOR MAY INTERFERE WITH RESULTS Lab Interpretation Abnormal (test code = 17327-7) [facility]/ REFLEX URINE [id number] 14:33:57 Test Item Value Reference Range Interpretation Comments COLOR (BEAKER) (test [place] code = 470) CLARITY (BEAKER) (test Turbid code = 469) SPECIFIC GRAVITY UA >= 1.001-1.035 (BEAKER) (test code = 468) PH UA (BEAKER) (test 5.5 5.0-8.0 code = 467) PROTEIN UA (BEAKER) >=300 mg/dL Negative A (test code = 464) GLUCOSE UA (BEAKER) 250 mg/dL Negative A (test code = 365) KETONES UA (BEAKER) Trace Negative A (test code = 371) BILIRUBIN UA (BEAKER) Positive Negative A (test code = 462) BLOOD UA (BEAKER) (test Large Negative A code = 461) NITRITE UA (BEAKER) Positive Negative A (test code = 465) LEUKOCYTE ESTERASE UA Moderate Negative A (BEAKER) (test code = 466) UROBILINOGEN UA >= mg/dL 0.2-1.0 H (BEAKER) (test code = 463) BACTERIA (BEAKER) (test Occasional code = 517) RBC UA-MANUAL (BEAKER) 20-50 /HPF This is a corrected (test code = 1659) result. P revious result was 10-2 0 /HPF on 04/25/20 22 at 1416 CDT WBC UA-MANUAL (BEAKER) 5-10 /HPF (test code = 1661) SQUAMOUS EPITHELIAL <5 /HPF MANUAL (BEAKER) (test code = 1663) SOURCE(BEAKER) (test code = 2795) COLOR MAY INTERFERE WITH [id number] 05:48:25 Test Item Value Reference Range Interpretation Comments MAGNESIUM (BEAKER) (test code = 1.7 mg/dL 1.5-3.0 627) Motor Vehicle Examiner ID - [id number] ID - [id number] ID - [id number] ID - [id number] BASIC METABOLIC [id number] 05:46:35 Test Item Value Reference Range Interpretation Comments SODIUM (BEAKER) 135 meq/L 135-148 (test code = 381) POTASSIUM 4.0 meq/L 3.6-5.5 (BEAKER) (test code = 379) CHLORIDE (BEAKER) 102 meq/L 98-106 (test code = 382) CO2 (BEAKER) 21 meq/L 20-29 (test code = 355) BLOOD UREA 9 mg/dL 10-26 L NITROGEN (BEAKER) (test code = 354) CREATININE 0.77 mg/dL 0.50-1.20 (BEAKER) (test code = 358) GLUCOSE RANDOM 118 mg/dL 70-110 H (BEAKER) (test code = 652) CALCIUM (BEAKER) 8.6 mg/dL 8.5-10.5 (test code = 697) EGFR (BEAKER) 99 Interpretatio n of eGFR (test code = mL/min/1.73 values Stage De scription 1092) sq m Result G1 Caitlin l or high >=90 G2 Mildly decreased 60-89 G3a Mildl y to moderately 45-5 9 G3b Moderately to s everely 30-44 G4 Severl y decreased 15-29 G5 Kidney failure <15Reported eGF R is based on the CKD-EPI 202 equation that d oes not use a race coefficientEsti mated GFR is not as accur ate as Creatinine Jaleesa enciso in predicting glom erular filtration rate . Estimated GFR is not appl icable for dialysis patien ts Motor Vehicle Examiner ID - [id number] ID - [id number] ID - [id number] ID - [id number] ID - [id number] ID - [id number] ID - [id number] ID - [id number] ID - [id number] 05:45:16 Test Item Value Reference Range Interpretation Comments PHOSPHORUS (BEAKER) (test code = 3.2 mg/dL 2.5-4.5 604) Motor Vehicle Examiner ID - [id number] W/PLT COUNT & AUTO [id number] 05:42:34 Test Item Value Reference Range Interpretation Comments WHITE BLOOD CELL COUNT (BEAKER) 7.8 K/ L 4.0-10.0 (test code = 775) RED BLOOD CELL COUNT (BEAKER) 4.07 M/ L 4.00-5.00 (test code = 761) HEMOGLOBIN (BEAKER) (test code = 12.6 GM/DL 12.0-15.5 410) HEMATOCRIT (BEAKER) (test code = 36.7 % 36.0-46.0 411) MEAN CORPUSCULAR VOLUME (BEAKER) 90.2 fL 82.0-99.0 (test code = 753) MEAN CORPUSCULAR HEMOGLOBIN 31.0 pg 27.0-33.0 (BEAKER) (test code = 751) MEAN CORPUSCULAR HEMOGLOBIN CONC 34.3 GM/DL 32.0-36.0 (BEAKER) (test code = 752) RED CELL DISTRIBUTION WIDTH 13.2 % 12.0-15.0 (BEAKER) (test code = 412) PLATELET COUNT (BEAKER) (test 319 K/CU MM 150-430 code = 756) MEAN PLATELET VOLUME (BEAKER) 11.7 fL 6.0-11.5 H (test code = 754) NUCLEATED RED BLOOD CELLS 0 /100 WBC 0-0 (BEAKER) (test code = 413) NEUTROPHILS RELATIVE PERCENT 59 % (BEAKER) (test code = 429) LYMPHOCYTES RELATIVE PERCENT 32 % (BEAKER) (test code = 430) MONOCYTES RELATIVE PERCENT 9 % (BEAKER) (test code = 431) EOSINOPHILS RELATIVE PERCENT 0 % (BEAKER) (test code = 432) BASOPHILS RELATIVE PERCENT 0 % (BEAKER) (test code = 437) NEUTROPHILS ABSOLUTE COUNT 4.61 K/ L 1.80-8.00 (BEAKER) (test code = 670) LYMPHOCYTES ABSOLUTE COUNT 2.50 K/ L 1.48-4.50 (BEAKER) (test code = 414) MONOCYTES ABSOLUTE COUNT (BEAKER) 0.67 K/ L 0.00-1.30 (test code = 415) EOSINOPHILS ABSOLUTE COUNT 0.01 K/ L 0.00-0.50 (BEAKER) (test code = 416) BASOPHILS ABSOLUTE COUNT (BEAKER) 0.02 K/ L 0.00-0.20 (test code = 417) IMMATURE GRANULOCYTES-RELATIVE 0 % 0-0 PERCENT (BEAKER) (test code = 2801) FL, FLUORO, NON-SPECIFIC, UP TO 1 [id number] 12:47:00Reason for exam:- >CYSTOSCOPY, WITH RETROGRADE PYELOGRAM - Left [facility] 1980 Sex: FAn imaging unit was utilized for this procedure. No radiologist interpretation was requested. Refer to the EMR for findings. Refer to PACS for any patient radiation dose information. SCREEN, [id number] 10:26:20 Test Item Value Reference Range Interpretation Comments TEST URINE (BEAKER) (test Negative Negative code = 583) PROTHROMBIN TIME/[id number] 10:23:34 Test Item Value Reference Range Interpretation Comments PROTIME (BEAKER) 10.3 seconds 9.3-12.0 Final Infor mation (test code = 759) (Auto Outp ut) INR (BEAKER) (test 0.93 See_Comment Final Inf ormation code = 370) (Auto Output) [Automated mess age] The system TourPal generated this result transmitted ref erence range: <=5.90. The reference range was not used to int erpret this result as normal/abnormal . RECOMMENDED COUMADIN/WARFARIN INR THERAPY RANGESSTANDARD DOSE: 2.0 - 3.0 Includes: PROPHYLAXIS for venous thrombosis, systemic embolization; TREATMENT for venous thrombosis and/or pulmonary embolus.HIGH RISK: Target INR is 2.5-3.5 for patients with mechanical heart valves.COVID [id number] 10:21:45 Test Item Value Reference Range Interpretation Comments SARS COVID ANTIGEN Negative Negative (test code = 69869-2) LEXA (test code = LEXA) The QuickVue SARS Antigen test does not differentiate between SARS-CoV and SARS-CoV-2. The test has been authorized by the FDA under an EUA for use by authorized laboratories. Lab Interpretation Normal (test code = 98451-7) [facility] [id number] 10:21:45 Test Item Value Reference Range Interpretation Comments SARS COVID ANTIGEN Negative Negative (test code = 42862-5) LEXA (test code = LEXA) The QuickVue SARS Antigen test does not differentiate between SARS-CoV and SARS-CoV-2. The test has been authorized by the FDA under an EUA for use by authorized laboratories. Lab Interpretation Normal (test code = 66430-9) [facility] [id number] 10:21:45 Test Item Value Reference Range Interpretation Comments SARS COVID ANTIGEN (test code = Negative Negative 67810092) The QuickVue SARS Antigen test does not differentiate between SARS-CoV and SARS-CoV-2.The test has been authorized by the FDA under an EUA for use by authorized laboratories.BASIC METABOLIC PANEL (NA, K, CL, CO2, GLUCOSE, BUN, CREATININE, CA)2022-04-16 16:21:48 Test Item Value Reference Range Interpretation Comments NA (test code = 137 mmol/L 135-145 7292525340) K (test code = 4.3 mmol/L 3.5-5 1474371107) CL (test code = 106 mmol/L 98-108 5970044734) CO2 TOTAL (test code = 20 mmol/L 23-31 L 0419949794) AGAP (test code = 2-16 0597916682) BUN (test code = 9 mg/dL 7-23 2103426985) GLUCOSE (test code = 136 mg/dL 70-110 H 7338351499) CREATININE (test code = 0.77 mg/dL 0.5-1.04 4707660343) CALCIUM (test code = 9.2 mg/dL 8.6-10.6 2134135447) eGFR (test code = mL/min/1.73m2 5891555513) LEXA (test code = LEXA) Association of Glomerular Filtration Rate (GFR) and Staging of Kidney Disease* + --+ --+ ------+| GFR (mL/min/1.73 m2) ?| With Kidney Damage ?| ?Without Kidney Damage+ --------+ --------+ +| ?>90 ?| ?Stage one ?| ? Normal ?+ ---+ ---+ -------+| ?60-89 ?| ?Stage two ?| ? Decreased GFR ? + --+ --+ ------+| ?30-59 ?| ?Stage three ?| ? Stage three ? + --+ --+ ------+| ?15-29 ?| ?Stage four ? | ? Stage four ?+ ---+ ---+ -------+| ?<15 (or dialysis) ? ?| ?Stage five ? | ? Stage five ?+ ---+ ---+ -------+ *Each stage assumes the associated GFR level has been in effect for at least three months. ?Stages 1 to 5, with or without kidney disease, indicate chronic kidney disease. Notes: Determination of stages one and two (with eGFR >59mL/min/1.73 m2) requires estimation of kidney damage for at least three months as defined by structural or functional abnormalities of the kidney, manifested by either:Pathological abnormalities or Markers of kidney damage (including abnormalities in the composition of the blood or urine or abnormalities in imaging tests). Lab Interpretation Abnormal (test code = 36348-9) [facility] (ALB,T.PRO,BILI T,BU/BC,ALT,AST,ALK PHOS)2022-04-16 16:21:48 Test Item Value Reference Range Interpretation Comments TOTAL BILI (test code = 8625282554) 0.4 mg/dL 0.1-1.1 BILI UNCON (test code = 0214356772) 0.3 mg/dL 0.1-1.1 BILI CONJ (test code = 2539092605) 0.0 mg/dL 0-0.3 T PROTEIN (test code = 4533874941) 7.6 g/dL 6.3-8.2 ALBUMIN (test code = 3445618517) 4.3 g/dL 3.5-5 ALK PHOS (test code = 6138607023) 62 U/L 34-122 ALTv (test code = 1742-6) 27 U/L 5-35 AST(SGOT) (test code = 0301927900) 28 U/L 13-40 Lab Interpretation (test code = Normal 93421-1) [facility] 16:21:48 Test Item Value Reference Range Interpretation Comments LIPASE (test code = 2522563001) 37 U/L 0-220 Lab Interpretation (test code = Normal 84525-5) [facility] CenterCB WITH [id number] 16:20:26 Test Item Value Reference Range Interpretation Comments WBC (test code = See_Comment [Automated message] 6690-2) The system [employer] generated this result transmitted ref erence range: 4.30 - 1 1.10 10*3/?L. The re ference range was not u sed to interpret this result as normal/abnor mal. RBC (test code = See_Comment [Automated message] 159-8) The system [employer] generated this result transmitted ref erence range: 3.93 - 5 .25 10*6/?L. The re ference range was not u sed to interpret this result as normal/abnor mal. HGB (test code = 13.4 g/dL 11.6-15 718-7) HCT (test code = 39.5 % 35.7-45.2 4544-3) MCV (test code = 89.6 fL 80.6-95.5 787-2) MCH (test code = 30.4 pg 25.9-32.8 785-6) MCHC (test code = 33.9 g/dL 31.6-35.1 786-4) RDW-SD (test code 44.1 fL 39-49.9 = 58140-2) RDW-CV (test code 13.5 % 12-15.5 = 788-0) PLT (test code = See_Comment [Automated message] 777-3) The system Call [employer] h generated this result transmitted ref erence range: 166 - 35 8 10*3/?L. The re ference range was not u sed to interpret this result as normal/abnor mal. MPV (test code = 11.9 fL 9.5-12.9 58732-6) NRBC/100 WBC (test See_Comment [Automat ed message] code = 8099690204) The syste m which generated this result transmitted ref erence range: 0.0 - 10 .0 /100 WBCs. The refer ence range was not u sed to interpret this result as normal/abnor mal. NRBC x10^3 (test See_Comment [Automated message] code = 9344990050) The syste m which generated this result transmitted ref erence range: 10*3/?L. The reference range was not used to interpr et this result as normal/abnormal . GRAN MAT (NEUT) % 67.8 % (test code = 770-8) IMM GRAN % (test 0.40 % code = 1796584983) LYMPH % (test code 21.7 % = 736-9) MONO % (test code 8.1 % = 5905-5) EOS % (test code = 1.6 % 713-8) BASO % (test code 0.4 % = 706-2) GRAN MAT 5.46 10*3/uL 1.88-7.09 x10^3(ANC) (test code = 4768692641) IMM GRAN x10^3 0.03 10*3/uL 0-0.06 (test code = 1665064715) LYMPH x10^3 (test 1.75 10*3/uL 1.32-3.29 code = 731-0) MONO x10^3 (test 0.65 10*3/uL 0.33-0.92 code = 742-7) EOS x10^3 (test 0.13 10*3/uL 0.03-0.39 code = 711-2) BASO x10^3 (test 0.03 10*3/uL 0.01-0.07 code = 704-7) [facility] CenterL[facility] Whole [id number] 16:00:27 Test Item Value Reference Range Interpretation Comments LACTIC ACID (test code = 1.28 mmol/L 0.5-2.2 7459612892) Lab Interpretation (test code = Normal 37593-9) [facility] CenterPO[facility] [id number] 15:23:00 Test Item Value Reference Range Interpretation Comments On board controls acceptable with negative C Line (test code = 3574) POCT PREG LOT # (test code = 3575) [id number] POCT PREG TEST DATE (test 07/10/2023 code = 3576) Lab Interpretation (test code = Normal 32753-7) [facility] [id number] 08:18:44 Test Item Value Reference Range Interpretation Comments CULTURE (BEAKER) (test code = 1095) No growth POCT urinalysis [id number] 15:10:00 Test Item Value Reference Range Interpretation Comments Glucose Urine, POC Negative Negative (test code = 56093-8) Bilirubin Urine, POC Negative Negative (test code = 5770-3) Ketones Urine, POC Negative Negative (test code = 2514-8) Specific [place] 1.025 SG Ratio See_Comment [Automat ed Urine, POC (test code messag e] The = 5811-5) system which generated this result transmit abidas reference range : 1.005 SG Ratio, 1.010 SG Ratio, 1.015 SG Ratio, 1.020 SG Ratio, 1.025 SG Ratio, 1.030 SG Ratio. The reference range was not u sed to interpret th is result as normal/abnormal . Blood Urine, POC Large Negative A (test code = 5794-3) pH, Urine (test code 7.5 pH units See_Comment [Autom ated = 5803-2) message] The system which generated this result transmit abdias reference range : 5.0 pH units, 5 .5 pH units, 6.0 p H units, 6.5 pH units, 7.0 pH units, 7.5 pH units, 8.0 pH units. The reference range was not used to interpret this result as normal/abnormal . Protein Urine, POC 100 mg/dL Negative A (test code = 99492-1) Urobilinogen Urine, 0.2 mg/dL See_Comment [Automa abdias POC (test code = message] e 4327220) system which generated this result transmit abdias reference range : 0.2 mg/dL, 1 mg/dL. The reference range was not used to interpret this result as normal/abnormal . Nitrite Urine, POC Negative Negative (test code = 2894132) Leukocyte Esterase Trace Negative A Urine, POC (test code = 8085087) Lab Interpretation Abnormal (test code = 46657-7) [facility] urinalysis [id number] 15:10:00 Test Item Value Reference Range Interpretation Comments Glucose Urine, POC Negative Negative (test code = 68745-7) Bilirubin Urine, POC Negative Negative (test code = 5770-3) Ketones Urine, POC Negative Negative (test code = 2514-8) Specific [place] 1.025 SG Ratio See_Comment [Automat ed Urine, POC (test code messag e] The = 5811-5) system which generated this result transmit abdias reference range : 1.005 SG Ratio, 1.010 SG Ratio, 1.015 SG Ratio, 1.020 SG Ratio, 1.025 SG Ratio, 1.030 SG Ratio. The reference range was not u sed to interpret is result as normal/abnormal . Blood Urine, POC Large Negative A (test code = 5794-3) pH, Urine (test code 7.5 pH units See_Comment [Autom ated = 5803-2) message] The system which generated this result transmit abdias reference range : 5.0 pH units, 5 .5 pH units, 6.0 p H units, 6.5 pH units, 7.0 pH units, 7.5 pH units, 8.0 pH units. The reference range was not used to interpret this result as normal/abnormal . Protein Urine, POC 100 mg/dL Negative A (test code = 68060-9) Urobilinogen Urine, 0.2 mg/dL See_Comment [Automa abdias POC (test code = message] Th e 7091404) system which generated this result transmit abdias reference range : 0.2 mg/dL, 1 mg/dL. The reference range was not used to interpret this result as normal/abnormal . Nitrite Urine, POC Negative Negative (test code = 9544738) Leukocyte Esterase Trace Negative A Urine, POC (test code = 9980013) Lab Interpretation Abnormal (test code = 09066-0) [facility] [id number] 09:25:10 Test Item Value Reference Range Interpretation Comments CULTURE (BEAKER) (test <10,000 col/mL skin code = 1095) layla U/S, RENAL, [id number] 18:13:00Reason for exam:->hydronephrosisShould this be performed at the bedside?->Yes [facility] 1980 Sex: FFINAL REPORT History: Hydronephrosis. FINDINGS: Correlation is made with patient's prior study performed March 19, 2022. Real-time sonographic examination reveals normal size kidneys measuring up to 11.6 x 4.1 x 4.7 and 12.7 x 4.7 x 6.2 cm in greatest dimensions, respectively. Renal echogenicity appears normal. There is a nonobstructive 6 mm calculus in the midpole of the left kidney, similar to the prior study. Mild left-sided hydronephrosis persists and appears unchanged. Thereis no evidence for right-sided hydronephrosis. No visible solid masses or cysts. No perinephric fluid collections. Urinary bladder is unremarkable with an estimated volume of 90 cc. IMPRESSION: 1. Mildleft-sided hydronephrosis, not significantly changed since the previous study. 2. 6 mm nonobstructing calculus in the midpole the left kidney. Signed: Jose Juan Arellanoeport Verified Date/Time: 03/20/2022 18:13:07 Reading Location: [facility] Women CBC W/PLT COUNT & AUTO [id number] 06:18:00 Test Item Value Reference Range Interpretation Comments WHITE BLOOD CELL COUNT 6.5 K/ L 4.0-10.0 (BEAKER) (test code = 775) RED BLOOD CELL COUNT (BEAKER) 4.31 M/ L 4.00-5.00 (test code = 761) HEMOGLOBIN (BEAKER) (test 13.5 GM/DL 12.0-15.5 code = 410) HEMATOCRIT (BEAKER) (test 39.4 % 36.0-46.0 code = 411) MEAN CORPUSCULAR VOLUME 91.4 fL 82.0-99.0 (BEAKER) (test code = 753) MEAN CORPUSCULAR HEMOGLOBIN 31.3 pg 27.0-33.0 (BEAKER) (test code = 751) MEAN CORPUSCULAR HEMOGLOBIN 34.3 GM/DL 32.0-36.0 CONC (BEAKER) (test code = 752) RED CELL DISTRIBUTION WIDTH 13.2 % 12.0-15.0 (BEAKER) (test code = 412) PLATELET COUNT (BEAKER) (test 235 K/CU MM 150-430 NO CLOT SEEN code = 756) MEAN PLATELET VOLUME (BEAKER) 11.4 fL 6.0-11.5 (test code = 754) NUCLEATED RED BLOOD CELLS 0 /100 WBC 0-0 (BEAKER) (test code = 413) NEUTROPHILS RELATIVE PERCENT 53 % (BEAKER) (test code = 429) LYMPHOCYTES RELATIVE PERCENT 33 % (BEAKER) (test code = 430) MONOCYTES RELATIVE PERCENT 11 % (BEAKER) (test code = 431) EOSINOPHILS RELATIVE PERCENT 2 % (BEAKER) (test code = 432) BASOPHILS RELATIVE PERCENT 0 % (BEAKER) (test code = 437) NEUTROPHILS ABSOLUTE COUNT 3.46 K/ L 1.80-8.00 (BEAKER) (test code = 670) LYMPHOCYTES ABSOLUTE COUNT 2.16 K/ L 1.48-4.50 (BEAKER) (test code = 414) MONOCYTES ABSOLUTE COUNT 0.70 K/ L 0.00-1.30 (BEAKER) (test code = 415) EOSINOPHILS ABSOLUTE COUNT 0.15 K/ L 0.00-0.50 (BEAKER) (test code = 416) BASOPHILS ABSOLUTE COUNT 0.02 K/ L 0.00-0.20 (BEAKER) (test code = 417) IMMATURE 1 % 0-0 H GRANULOCYTES-RELATIVE PERCENT (BEAKER) (test code = 2801) [id number] 05:41:29 Test Item Value Reference Range Interpretation Comments MAGNESIUM (BEAKER) 2.2 mg/dL 1.5-3.0 Specimen slightly (test code = 627) hemolyzed Motor Vehicle Examiner ID - LITOOperator ID - LITOOperator ID - LITOOperator ID - LITOBASIC METABOLIC [id number] 05:40:09 Test Item Value Reference Range Interpretation Comments SODIUM (BEAKER) 137 meq/L 135-148 (test code = 381) POTASSIUM 3.8 meq/L 3.6-5.5 Specimen slight ly (BEAKER) (test hemolyzed code = 379) CHLORIDE (BEAKER) 100 meq/L 98-106 (test code = 382) CO2 (BEAKER) 24 meq/L 20-29 (test code = 355) BLOOD UREA 9 mg/dL 10-26 L NITROGEN (BEAKER) (test code = 354) CREATININE 0.96 mg/dL 0.50-1.20 Specimen slight ly (BEAKER) (test hemolyzed code = 358) GLUCOSE RANDOM 92 mg/dL 70-110 (BEAKER) (test code = 652) CALCIUM (BEAKER) 8.8 mg/dL 8.5-10.5 (test code = 697) EGFR (BEAKER) 76 Interpretatio n of eGFR (test code = mL/min/1.73 values Stage De scription 1092) sq m Result G1 Caitlin l or high >=90 G2 Mildly decreased 60-89 G3a Mildl y to moderately 45-5 9 G3b Moderately to s everely 30-44 G4 Severl y decreased 15-29 G5 Kidney failure <15Reported eGF R is based on the CKD-EPI 2020 equation that d oes not use a race coefficientEsti mated GFR is not as accur ate as Creatinine Jaleesa fernie in predicting glom erular filtration rate . Estimated GFR is not appl icable for dialysis patien ts Motor Vehicle Examiner ID - LITOOperator ID - LITOOperator ID - LITOOperator ID - LITOOperator ID - LITOOperator ID - LITOOperator ID - LITOOperator ID - LITOOperator ID - [id number] 05:38:48 Test Item Value Reference Range Interpretation Comments PHOSPHORUS (BEAKER) 4.2 mg/dL 2.5-4.5 Specimen slightly (test code = 604) hemolyzed Motor Vehicle Examiner ID - LITOU/S, RENAL, [id number] 12:56:00Reason for exam:- >left hydroureteronephrosis s/p removal of stent [facility] : 1980 Sex: FFINAL REPORT TECHNIQUE: Grayscale ultrasound of the kidneys and bladder. INDICATION: left hydroureteronephrosis s/p removal of stent. COMPARISON: Ultrasound from 06/20/2021. CT from03/18/2022 FINDINGS: RIGHT KIDNEY: The right kidney measures 10.5 x 4 x 4.8 cm with a cortical thickness of 1.2 cm. No solid mass lesions. No hydronephrosis. Renal artery and vein are patent. LEFT KIDNEY: The left kidney measures 12.2 x 5.4 x 3.9 cm with a cortical thickness of 1.3 cm. No solid mass lesions. Mild hydronephrosis. Renal artery and vein are patent. A left interpolar renal stone measures 0.6 cm. BLADDER: The bladder volume is 48 mL.. 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 ID - [id number] ID - [id number] ID - [id number] ID - [id number] METABOLIC [id number] 04:32:32 Test Item Value Reference Range Interpretation Comments SODIUM (BEAKER) 138 meq/L 135-148 (test code = 381) POTASSIUM 4.0 meq/L 3.6-5.5 (BEAKER) (test code = 379) CHLORIDE (BEAKER) 101 meq/L 98-106 (test code = 382) CO2 (BEAKER) 26 meq/L 20-29 (test code = 355) BLOOD UREA 11 mg/dL 10-26 NITROGEN (BEAKER) (test code = 354) CREATININE 1.16 mg/dL 0.50-1.20 (BEAKER) (test code = 358) GLUCOSE RANDOM 102 mg/dL 70-110 (BEAKER) (test code = 652) CALCIUM (BEAKER) 8.7 mg/dL 8.5-10.5 (test code = 697) EGFR (BEAKER) 60 Interpretatio n of eGFR (test code = mL/min/1.73 values Stage De scription 1092) sq m Result G1 Caitlin l or high >=90 G2 Mildly decreased 60-89 G3a Mildl y to moderately 45-5 9 G3b Moderately to s everely 30-44 G4 Severl y decreased 15-29 G5 Kidney failure <15Reported eGF R is based on the CKD-EPI 2020 equation that d oes not use a race coefficientEsti mated GFR is not as accur ate as Creatinine Jaleesa fernie in predicting glom erular filtration rate . Estimated GFR is not appl icable for dialysis patien ts Motor Vehicle Examiner ID - [id number] ID - [id number] ID - [id number] ID - [id number] ID - [id number] ID - [id number] ID - [id number] ID - [id number] ID - [id number] 04:31:07 Test Item Value Reference Range Interpretation Comments PHOSPHORUS (BEAKER) (test code = 5.0 mg/dL 2.5-4.5 H 604) Motor Vehicle Examiner ID - [id number] W/PLT COUNT & AUTO [id number] 04:01:38 Test Item Value Reference Range Interpretation Comments WHITE BLOOD CELL COUNT (BEAKER) 10.1 K/ L 4.0-10.0 H (test code = 775) RED BLOOD CELL COUNT (BEAKER) 4.34 M/ L 4.00-5.00 (test code = 761) HEMOGLOBIN (BEAKER) (test code = 13.5 GM/DL 12.0-15.5 410) HEMATOCRIT (BEAKER) (test code = 40.0 % 36.0-46.0 411) MEAN CORPUSCULAR VOLUME (BEAKER) 92.2 fL 82.0-99.0 (test code = 753) MEAN CORPUSCULAR HEMOGLOBIN 31.1 pg 27.0-33.0 (BEAKER) (test code = 751) MEAN CORPUSCULAR HEMOGLOBIN CONC 33.8 GM/DL 32.0-36.0 (BEAKER) (test code = 752) RED CELL DISTRIBUTION WIDTH 13.2 % 12.0-15.0 (BEAKER) (test code = 412) PLATELET COUNT (BEAKER) (test 321 K/CU MM 150-430 code = 756) MEAN PLATELET VOLUME (BEAKER) 11.5 fL 6.0-11.5 (test code = 754) NUCLEATED RED BLOOD CELLS 0 /100 WBC 0-0 (BEAKER) (test code = 413) NEUTROPHILS RELATIVE PERCENT 66 % (BEAKER) (test code = 429) LYMPHOCYTES RELATIVE PERCENT 21 % (BEAKER) (test code = 430) MONOCYTES RELATIVE PERCENT 11 % (BEAKER) (test code = 431) EOSINOPHILS RELATIVE PERCENT 2 % (BEAKER) (test code = 432) BASOPHILS RELATIVE PERCENT 0 % (BEAKER) (test code = 437) NEUTROPHILS ABSOLUTE COUNT 6.63 K/ L 1.80-8.00 (BEAKER) (test code = 670) LYMPHOCYTES ABSOLUTE COUNT 2.11 K/ L 1.48-4.50 (BEAKER) (test code = 414) MONOCYTES ABSOLUTE COUNT (BEAKER) 1.10 K/ L 0.00-1.30 (test code = 415) EOSINOPHILS ABSOLUTE COUNT 0.15 K/ L 0.00-0.50 (BEAKER) (test code = 416) BASOPHILS ABSOLUTE COUNT (BEAKER) 0.03 K/ L 0.00-0.20 (test code = 417) IMMATURE GRANULOCYTES-RELATIVE 1 % 0-0 H PERCENT (BEAKER) (test code = 2801) COVID [id number] 16:49:06 Test Item Value Reference Range Interpretation Comments SARS COVID ANTIGEN (test code = Negative Negative 13862501) The QuickVue SARS Antigen test does not differentiate between SARS-CoV and SARS-CoV-2.The test has been authorized by the FDA under an EUA for use by authorized laboratories.CT, [id number] 15:53:00Recent stone removalUnlisted Reason for Exam - Click Yes and Enter Reason Below->NoIs this for enterography?->NoWill this procedure require oral contrast?->No [facility] 1980 Sex: FFINAL REPORT EXAM: CT Abdomen and Pelvis WITHOUT intravenous contrast INDICATION: Flank pain COMPARISON: CT abdomen and pelvis of 01/10/2022 TECHNIQUE: Abdomen and pelvis were scannedutilizing a multidetector helical scanner from the lung base to the pubic symphysis without administration of IV contrast. Coronal and sagittal reformations were obtained. Dose modulation, iterative rec onstruction, and/or weight based adjustment of the mA/kV was utilized to reduce the radiation dose to as low as reasonably achievable. IV CONTRAST: NoneORAL CONTRAST: Water COMPLICATIONS: None FINDINGS:LOWER THORAX: Normal. HEPATOBILIARY: Unchanged hepatomegaly and diffuse hepatic steatosis. No definite focal liver lesion. Status post cholecystectomy. SPLEEN: No splenomegaly. PANCREAS: No focal masses or ductal dilatation. ADRENALS: No adrenal nodules. KIDNEYS/URETERS: Interval development of moderate left hydroureteronephrosis without radiopaque obstructing stone. Punctate left and right renal calculi measure up to 2 mm. No right hydronephrosis or hydroureter. Previously seen right ureteral stenthas been removed. No solid renal mass. PELVIC ORGANS/BLADDER: Unremarkable. PERITONEUM / RETROPERITONEUM: No free air or fluid. LYMPH NODES: No lymphadenopathy. VESSELS: Scattered atherosclerotic calcifications of the non-aneurysmal abdominal aorta and major branches. GI TRACT: Mild diverticulosis without CT evidence of diverticulitis. No bowel wall thickening or bowel obstruction. Status post appendectomy. BONES AND SOFT TISSUES: No acute osseous injury. No suspicious lytic or blastic lesions. Unrem arkable soft tissues. IMPRESSION: New moderate left hydroureteronephrosis without radiopaque obstructing stone. Moderate associated left perinephric/periureteral fat stranding can be seen with upper urinary tract infection. Unchanged punctate bilateral renal calculi measure up to 2 mm. Interval removal of previously seen right double-J ureteral stent. No right hydronephrosis or hydroureter. Stable hepatomegaly and diffuse hepatic steatosis. Mild diverticulosis. Signed: Marisela Stokes MDReport Verified Date/Time: 03/18/2022 15:53:15 COMPREHENSIVE METABOLIC [id number] 15:36:07 Test Item Value Reference Range Interpretation Comments TOTAL PROTEIN 7.5 gm/dL 6.0-8.5 (BEAKER) (test code = 770) ALBUMIN (BEAKER) 4.1 g/dL 3.5-5.0 (test code = 1145) ALKALINE 52 U/L 30-115 PHOSPHATASE (BEAKER) (test code = 346) BILIRUBIN TOTAL 0.4 mg/dL 0.1-1.2 (BEAKER) (test code = 377) SODIUM (BEAKER) 137 meq/L 135-148 (test code = 381) POTASSIUM (BEAKER) 4.2 meq/L 3.6-5.5 (test code = 379) CHLORIDE (BEAKER) 102 meq/L 98-106 (test code = 382) CO2 (BEAKER) (test 22 meq/L 20-29 code = 355) BLOOD UREA 8 mg/dL 10-26 L NITROGEN (BEAKER) (test code = 354) CREATININE 1.03 mg/dL 0.50-1.20 (BEAKER) (test code = 358) GLUCOSE RANDOM 101 mg/dL 70-110 (BEAKER) (test code = 652) CALCIUM (BEAKER) 9.2 mg/dL 8.5-10.5 (test code = 697) AST (SGOT) 22 U/L 5-40 (BEAKER) (test code = 353) ALT (SGPT) 34 U/L 5-50 (BEAKER) (test code = 347) EGFR (BEAKER) 70 Interpretatio n of eGFR (test code = 1092) mL/min/1.[address] age Description sq m Result G1 Caitlin l or high >=90 G2 Mildly decreased 60-89 G3a Mild ly to moderately 45-5 9 G3b Moderately to s everely 30-44 G4 Severl y decreased 15-29 G5 Kidney failure <15Reported eGF R is based on the CKD-EPI 2020 equation that d oes not use a race coefficientEsti mated GFR is not as accur ate as Creatinine Jaleesa enciso in predicting glom erular filtration rate . Estimated GFR is not appl icable for dialysis patien ts Motor Vehicle Examiner ID - [id number] ID - [id number] ID - [id number] ID - [id number] ID - [id number] ID - [id number] ID - [id number] ID - [id number] ID - [id number] ID - [id number] ID - [id number] ID - [id number] ID - [id number] ID - [id number] ID - [id number] ID - [id number] ID - [id number] ID - [id number] ID - [id number] URINALYSIS W/ REFLEX URINE [id number] 15:27:39 Test Item Value Reference Range Interpretation Comments COLOR (BEAKER) (test code = Red 470) CLARITY (BEAKER) (test code = Cloudy 469) SPECIFIC GRAVITY UA (BEAKER) 1.025 1.001-1.035 (test code = 468) PH UA (BEAKER) (test code = 7.0 5.0-8.0 467) PROTEIN UA (BEAKER) (test code >=300 mg/dL Negative A = 464) GLUCOSE UA (BEAKER) (test code Negative Negative = 365) KETONES UA (BEAKER) (test code Trace Negative A = 371) BILIRUBIN UA (BEAKER) (test Negative Negative code = 462) BLOOD UA (BEAKER) (test code = Small Negative A 461) NITRITE UA (BEAKER) (test code Negative Negative = 465) LEUKOCYTE ESTERASE UA (BEAKER) Small Negative A (test code = 466) UROBILINOGEN UA (BEAKER) (test 0.2 mg/dL 0.2-1.0 code = 463) BACTERIA (BEAKER) (test code = None Seen 517) RBC UA-MANUAL (BEAKER) (test >100 /HPF code = 1659) WBC UA-MANUAL (BEAKER) (test None Seen /HPF code = 1661) SQUAMOUS EPITHELIAL MANUAL <5 /HPF (BEAKER) (test code = 1663) SOURCE(BEAKER) (test code = 2795) SCREEN, [id number] 15:22:40 Test Item Value Reference Range Interpretation Comments TEST URINE (BEAKER) (test Negative Negative code = 583) CBC W/PLT COUNT & AUTO [id number] 15:08:16 Test Item Value Reference Range Interpretation Comments WHITE BLOOD CELL COUNT (BEAKER) 11.6 K/ L 4.0-10.0 H (test code = 775) RED BLOOD CELL COUNT (BEAKER) 4.47 M/ L 4.00-5.00 (test code = 761) HEMOGLOBIN (BEAKER) (test code = 13.9 GM/DL 12.0-15.5 410) HEMATOCRIT (BEAKER) (test code = 40.9 % 36.0-46.0 411) MEAN CORPUSCULAR VOLUME (BEAKER) 91.5 fL 82.0-99.0 (test code = 753) MEAN CORPUSCULAR HEMOGLOBIN 31.1 pg 27.0-33.0 (BEAKER) (test code = 751) MEAN CORPUSCULAR HEMOGLOBIN CONC 34.0 GM/DL 32.0-36.0 (BEAKER) (test code = 752) RED CELL DISTRIBUTION WIDTH 13.2 % 12.0-15.0 (BEAKER) (test code = 412) PLATELET COUNT (BEAKER) (test 394 K/CU MM 150-430 code = 756) MEAN PLATELET VOLUME (BEAKER) 11.1 fL 6.0-11.5 (test code = 754) NUCLEATED RED BLOOD CELLS 0 /100 WBC 0-0 (BEAKER) (test code = 413) NEUTROPHILS RELATIVE PERCENT 56 % (BEAKER) (test code = 429) LYMPHOCYTES RELATIVE PERCENT 33 % (BEAKER) (test code = 430) MONOCYTES RELATIVE PERCENT 9 % (BEAKER) (test code = 431) EOSINOPHILS RELATIVE PERCENT 2 % (BEAKER) (test code = 432) BASOPHILS RELATIVE PERCENT 0 % (BEAKER) (test code = 437) NEUTROPHILS ABSOLUTE COUNT 6.43 K/ L 1.80-8.00 (BEAKER) (test code = 670) LYMPHOCYTES ABSOLUTE COUNT 3.85 K/ L 1.48-4.50 (BEAKER) (test code = 414) MONOCYTES ABSOLUTE COUNT (BEAKER) 0.99 K/ L 0.00-1.30 (test code = 415) EOSINOPHILS ABSOLUTE COUNT 0.20 K/ L 0.00-0.50 (BEAKER) (test code = 416) BASOPHILS ABSOLUTE COUNT (BEAKER) 0.04 K/ L 0.00-0.20 (test code = 417) IMMATURE GRANULOCYTES-RELATIVE 1 % 0-0 H PERCENT (BEAKER) (test code = 2801) FL, FLUORO, NON-SPECIFIC, UP TO 1 [id number] 09:12:00Reason for exam:- >LEFT CYSTOSCOPY WITH URETEROSCOPY, LASER LITHOTRIPSY AND STENT PLACEMENT [facility] CENTERName: RHEA SPARKS : 1980 Sex: FAn imaging unit was utilized for this procedure. No radiologist interpretation was requested. Refer to the EMR for findings. Refer to PACS for any patient radiation dose information. SCREEN, [id number] 06:03:33 Test Item Value Reference Range Interpretation Comments TEST URINE (BEAKER) (test Negative Negative code = 583) BASIC METABOLIC [id number] 11:27:22 Test Item Value Reference Range Interpretation Comments SODIUM (BEAKER) 137 meq/L 135-148 (test code = 381) POTASSIUM 4.5 meq/L 3.6-5.5 (BEAKER) (test code = 379) CHLORIDE (BEAKER) 104 meq/L 98-106 (test code = 382) CO2 (BEAKER) 23 meq/L 20-29 (test code = 355) BLOOD UREA 9 mg/dL 10-26 L NITROGEN (BEAKER) (test code = 354) CREATININE 0.78 mg/dL 0.50-1.20 (BEAKER) (test code = 358) GLUCOSE RANDOM 96 mg/dL 70-110 (BEAKER) (test code = 652) CALCIUM (BEAKER) 9.0 mg/dL 8.5-10.5 (test code = 697) EGFR (BEAKER) 97 Interpretatio n of eGFR (test code = mL/min/1.73 values Stage De scription 1092) sq m Result G1 Caitlin l or high >=90 G2 Mildly decreased 60-89 G3a Mildl y to moderately 45-5 9 G3b Moderately to s everely 30-44 G4 Severl y decreased 15-29 G5 Kidney failure <15Reported eGF R is based on the CKD-EPI 2021 equation that d oes not use a race coefficientEsti mated GFR is not as accur ate as Creatinine Jaleesa enciso in predicting glom erular filtration rate . Estimated GFR is not appl icable for dialysis patien ts Motor Vehicle Examiner ID - [id number] ID - [id number] ID - [id number] ID - [id number] ID - [id number] ID - [id number] ID - [id number] ID - [id number] ID - [id number] ID - [id number] ID - [id number] ID - [id number] TIME/INR 2022-03-11 11:23:36 Test Item Value Reference Range Interpretation Comments PROTIME (BEAKER) 10.5 seconds 9.3-12.0 Final Infor mation (test code = 759) (Auto Outp ut) INR (BEAKER) (test 0.95 See_Comment Final Inf ormation code = 370) (Auto Output) [Automated mess age] The system [employer] generated this result transmitted ref erence range: <=5.90. The reference range was not used to int erpret this result as normal/abnormal . RECOMMENDED COUMADIN/WARFARIN INR THERAPY RANGESSTANDARD DOSE: 2.0 - 3.0 Includes: PROPHYLAXIS for venous thrombosis, systemic embolization; TREATMENT for venous thrombosis and/or pulmonary embolus.HIGH RISK: Target INR is 2.5-3.5 for patients with mechanical heart valves.COVID [id number] 11:21:17 Test Item Value Reference Range Interpretation Comments SARS COVID ANTIGEN (test code = Negative Negative [id number]) The [employer] SARS Antigen test does not differentiate between SARS-CoV and SARS-CoV-2.The test has been authorized by the FDA under an EUA for use by authorized laboratories.CBC W/PLT COUNT & AUTO [id number] 11:11:46 Test Item Value Reference Range Interpretation Comments WHITE BLOOD CELL COUNT (BEAKER) 9.0 K/ L 4.0-10.0 (test code = 775) RED BLOOD CELL COUNT (BEAKER) 4.40 M/ L 4.00-5.00 (test code = 761) HEMOGLOBIN (BEAKER) (test code = 13.7 GM/DL 12.0-15.5 410) HEMATOCRIT (BEAKER) (test code = 39.4 % 36.0-46.0 411) MEAN CORPUSCULAR VOLUME (BEAKER) 89.5 fL 82.0-99.0 (test code = 753) MEAN CORPUSCULAR HEMOGLOBIN 31.1 pg 27.0-33.0 (BEAKER) (test code = 751) MEAN CORPUSCULAR HEMOGLOBIN CONC 34.8 GM/DL 32.0-36.0 (BEAKER) (test code = 752) RED CELL DISTRIBUTION WIDTH 13.0 % 12.0-15.0 (BEAKER) (test code = 412) PLATELET COUNT (BEAKER) (test 298 K/CU MM 150-430 code = 756) MEAN PLATELET VOLUME (BEAKER) 10.9 fL 6.0-11.5 (test code = 754) NUCLEATED RED BLOOD CELLS 0 /100 WBC 0-0 (BEAKER) (test code = 413) NEUTROPHILS RELATIVE PERCENT 58 % (BEAKER) (test code = 429) LYMPHOCYTES RELATIVE PERCENT 32 % (BEAKER) (test code = 430) MONOCYTES RELATIVE PERCENT 8 % (BEAKER) (test code = 431) EOSINOPHILS RELATIVE PERCENT 1 % (BEAKER) (test code = 432) BASOPHILS RELATIVE PERCENT 0 % (BEAKER) (test code = 437) NEUTROPHILS ABSOLUTE COUNT 5.19 K/ L 1.80-8.00 (BEAKER) (test code = 670) LYMPHOCYTES ABSOLUTE COUNT 2.92 K/ L 1.48-4.50 (BEAKER) (test code = 414) MONOCYTES ABSOLUTE COUNT (BEAKER) 0.69 K/ L 0.00-1.30 (test code = 415) EOSINOPHILS ABSOLUTE COUNT 0.07 K/ L 0.00-0.50 (BEAKER) (test code = 416) BASOPHILS ABSOLUTE COUNT (BEAKER) 0.03 K/ L 0.00-0.20 (test code = 417) IMMATURE GRANULOCYTES-RELATIVE 1 % 0-0 H PERCENT (BEAKER) (test code = 2801) URINE [id number] 09:41:48 Test Item Value Reference Range Interpretation Comments CULTURE (BEAKER) (test KLEBSIELLA A 10-19 ,000 col/mL code = 1095) PNEUMONIAE SSP Klebsiella PNEUMONIAE pneumoniae ssp pneumoniae Amikacin (test code = S 1) Ampicillin + Sulbactam S (test code = 6) Aztreonam (test code = S 32) Cefazolin (test code = S 9) Cefepime (test code = S 51) Cefoxitin (test code = S 68) Ceftazidime (test code S = 27) Ceftriaxone (test code S = 52) Ertapenem (test code = S 38) Gentamicin (test code S = 18) Levofloxacin (test S code = 22) Meropenem (test code = S 34) Nitrofurantoin (test I code = 23) Piperacillin + S Tazobactam (test code = 29) Tetracycline (test S code = 2) Tigecycline (test code S = 133) Tobramycin (test code S = 25) Trimethoprim + S Sulfamethoxazole (test code = 47) CULTURE (YAYA) (test ESCHERICHIA COLI A 1 0-19,000 col/mL code = 1095) Escherichia col i Amikacin (test code = S 1) Ampicillin + Sulbactam S (test code = 6) Aztreonam (test code = S 32) Cefazolin (test code = S 9) Cefepime (test code = S 51) Cefoxitin (test code = S 68) Ceftazidime (test code S = 27) Ceftriaxone (test code S = 52) Ertapenem (test code = S 38) Gentamicin (test code S = 18) Levofloxacin (test S code = 22) Meropenem (test code = S 34) Nitrofurantoin (test S code = 23) Piperacillin + S Tazobactam (test code = 29) Tetracycline (test R code = 2) Tigecycline (test code S = 133) Tobramycin (test code S = 25) Trimethoprim + S Sulfamethoxazole (test code = 47) URINE [id number] 08:37:00 Test Item Value Reference Range Interpretation Comments Culture Observations (test NO GROWTH (<1,000 code = COB1) CFU/ML) COMPREHENSIVE METABOLIC [id number] 06:26:00 Test Item Value Reference Range Interpretation Comments GLUCOSE (test code 110 mg/dL 75-100 H = 06D) SODIUM (test code 141 mmol/L 136-145 = 01A) POTASSIUM (test 3.5 mmol/L 3.6-5.1 L code = 01B) CHLORIDE (test 107 mmol/L 98-107 code = 04A) CO2 (test code = 25 mmol/L 20-31 02A) ANION GAP (test 12.4 mmol/L code = ANG) BUN (test code = <5 mg/dL 9-23 L Unable to 05D) calculate BUN/Creatinine ratio due to lo w test results CREATININE (test 0.6 mg/dL 0.6-1.0 code = 03E) GFR (test code = 110 See_Comment [Automated GFR) mL/min/1.73m\\S\\2 message] Th e system which generated this result transmit abdias reference range : >=90. The reference range was not used to interpret this result as normal/abnormal . GFR 128 See_Comment [Automated [place] (test mL/min/1.73m\\S\\2 message] The code = GFRAA) system which generated this result transmit abdias reference range : >=90. The reference range was not used to interpret this result as normal/abnormal . EGFR (test code = eGFR BY EGFR) CKD-EPI CALCULATION IS NOT RECOMMENDED FOR PATIENTS UNDER 18 YEARS OF AGE. CALCIUM (test code 7.8 mg/dL 8.3-10.6 L = 09D) BILI TOTAL (test 0.4 mg/dL 0.2-1.0 code = 11A) PROTEIN (test code 6.0 g/dL 5.7-8.2 = 07D) ALBUMIN (test code 3.9 g/dL 3.2-4.8 = 08D) GLOBULIN (test 2.1 g/dL 1.5-3.8 code = GLB) ALB/GLOB (test 1.9 1.0-2.6 code = AGRR) ALK PHOS (test 48 IU/L 46-116 code = 35A) AST (test code = 36 IU/L See_Comment H [Automated 30A) message] The system which generated this result transmit abdias reference range : <=33. The reference range was not used to interpret this result as normal/abnormal . ALT (test code = 57 IU/L 10-49 H 31A) CBC (INCLUDES AUTOMATED DIFFERENTIAL)2022-01-19 06:11:00 Test Item Value Reference Range Interpretation Comments WBC (test code = WBC) 7.1 10\\S\\3/uL 4.5-11.0 RBC (test code = RBC) 3.85 10\\S\\6/uL 4.30-5.70 L HGB (test code = HBG) 12.1 g/dL 12.0-15.5 HCT (test code = HCT) 35.3 % 35.0-44.0 MCV (test code = MCV) 91.7 fL 81.0-99.0 MCH (test code = MCH) 31.4 pg 27.0-31.0 H MCHC (test code = MCHC) 34.3 g/dL 32.0-36.0 RDW (test code = RDW) 13.2 % 11.5-14.5 PLT (test code = PLT) 263 10\\S\\3/uL 130-400 MPV (test code = MPV) 11.2 fL 9.4-12.4 NEUTROP # (test code = NE#) 3.5 10\\S\\3/uL 1.6-8.0 LYMPH # (test code = LY#) 2.6 10\\S\\3/uL 1.1-3.5 MONOCYTE # (test code = MO#) 0.5 10\\S\\3/uL 0.0-1.1 EOSINOPH # (test code = EO#) 0.4 10\\S\\3/uL 0.0-0.7 BASOPHIL # (test code = BA#) 0.1 10\\S\\3/uL 0.0-0.3 IG # (test code = IG#) 0.02 10\\S\\3/uL 0.00-0.06 NRBC # (test code = NRBC#) 0.00 10\\S\\3/uL 0.00-0.01 NEUTROPH % (test code = NE%) 49.2 % 35.0-73.0 LYMPH % (test code = LY%) 37.2 % 20.0-55.0 MONO % (test code = MO%) 7.6 % 2.5-10.0 EOSINOPH % (test code = EO%) 4.9 % 0.0-5.0 BASOPHIL % (test code = BA%) 0.8 % 0.0-2.0 IG % (test code = IG%) 0.3 % 0.0-0.8 NRBC% (test code = NRBC%) 0.0 % 0.0-0.2 MANDIFF (test code = MDIFF) NO RBC MORPH (test code = RBCMOR) NORMAL [id number] 08:21:00 Test Item Value Reference Range Interpretation Comments MAGNESIUM (test code = 48A) 1.9 mg/dL 1.6-2.6 PHOSPHORUS (P04)2022-01-18 08:18:00 Test Item Value Reference Range Interpretation Comments PHOSPHORUS (test code = 43D) 3.0 mg/dL 2.4-5.1 COMPREHENSIVE METABOLIC [id number] 06:13:00 Test Item Value Reference Range Interpretation Comments GLUCOSE (test code 95 mg/dL 75-100 = 06D) SODIUM (test code 139 mmol/L 136-145 = 01A) POTASSIUM (test 3.0 mmol/L 3.6-5.1 L code = 01B) CHLORIDE (test 109 mmol/L 98-107 H code = 04A) CO2 (test code = 23 mmol/L 20-31 02A) ANION GAP (test 10.0 mmol/L code = ANG) BUN (test code = 8 mg/dL 9-23 L 05D) CREATININE (test 0.7 mg/dL 0.6-1.0 code = 03E) GFR (test code = 107 See_Comment [Automated GFR) mL/min/1.73m\\S\\2 message] Th e system which generated this result transmit abdias reference range : >=90. The reference range was not used to interpret this result as normal/abnormal . GFR 124 See_Comment [Automated [place] (test mL/min/1.73m\\S\\2 message] The code = GFRAA) system which generated this result transmit abdias reference range : >=90. The reference range was not used to interpret this result as normal/abnormal . EGFR (test code = eGFR BY EGFR) CKD-EPI CALCULATION IS NOT RECOMMENDED FOR PATIENTS UNDER 18 YEARS OF AGE. BUN/CREA (test 11 12-20 L code = BCR) CALCIUM (test code 7.8 mg/dL 8.3-10.6 L = 09D) BILI TOTAL (test 0.6 mg/dL 0.2-1.0 code = 11A) PROTEIN (test code 6.2 g/dL 5.7-8.2 = 07D) ALBUMIN (test code 3.9 g/dL 3.2-4.8 = 08D) GLOBULIN (test 2.3 g/dL 1.5-3.8 code = GLB) ALB/GLOB (test 1.7 1.0-2.6 code = AGRR) ALK PHOS (test 50 IU/L 46-116 code = 35A) AST (test code = 39 IU/L See_Comment H [Automated 30A) message] The system which generated this result transmit abdias reference range : <=33. The reference range was not used to interpret this result as normal/abnormal . ALT (test code = 43 IU/L 10-49 31A) CBC (INCLUDES AUTOMATED DIFFERENTIAL)2022-01-18 05:59:00 Test Item Value Reference Range Interpretation Comments WBC (test code = WBC) 9.2 10\\S\\3/uL 4.5-11.0 RBC (test code = RBC) 3.83 10\\S\\6/uL 4.30-5.70 L HGB (test code = HBG) 11.9 g/dL 12.0-15.5 L HCT (test code = HCT) 35.9 % 35.0-44.0 MCV (test code = MCV) 93.7 fL 81.0-99.0 MCH (test code = MCH) 31.1 pg 27.0-31.0 H MCHC (test code = MCHC) 33.1 g/dL 32.0-36.0 RDW (test code = RDW) 13.4 % 11.5-14.5 PLT (test code = PLT) 274 10\\S\\3/uL 130-400 MPV (test code = MPV) 11.7 fL 9.4-12.4 NEUTROP # (test code = NE#) 4.8 10\\S\\3/uL 1.6-8.0 LYMPH # (test code = LY#) 3.4 10\\S\\3/uL 1.1-3.5 MONOCYTE # (test code = MO#) 0.7 10\\S\\3/uL 0.0-1.1 EOSINOPH # (test code = EO#) 0.2 10\\S\\3/uL 0.0-0.7 BASOPHIL # (test code = BA#) 0.1 10\\S\\3/uL 0.0-0.3 IG # (test code = IG#) 0.02 10\\S\\3/uL 0.00-0.06 NRBC # (test code = NRBC#) 0.00 10\\S\\3/uL 0.00-0.01 NEUTROPH % (test code = NE%) 52.6 % 35.0-73.0 LYMPH % (test code = LY%) 37.3 % 20.0-55.0 MONO % (test code = MO%) 7.7 % 2.5-10.0 EOSINOPH % (test code = EO%) 1.7 % 0.0-5.0 BASOPHIL % (test code = BA%) 0.5 % 0.0-2.0 IG % (test code = IG%) 0.2 % 0.0-0.8 NRBC% (test code = NRBC%) 0.0 % 0.0-0.2 MANDIFF (test code = MDIFF) NO COMPREHENSIVE METABOLIC [id number] 15:55:00 Test Item Value Reference Range Interpretation Comments GLUCOSE (test code 130 mg/dL 75-100 H = 06D) SODIUM (test code 136 mmol/L 136-145 = 01A) POTASSIUM (test 3.2 mmol/L 3.6-5.1 L code = 01B) CHLORIDE (test 105 mmol/L 98-107 code = 04A) CO2 (test code = 20 mmol/L 20-31 02A) ANION GAP (test 14.0 mmol/L code = ANG) BUN (test code = 11 mg/dL 9-23 05D) CREATININE (test 0.9 mg/dL 0.6-1.0 code = 03E) GFR (test code = 79 See_Comment L [Automated GFR) mL/min/1.73m\\S\\2 message] Th e system which generated this result transmit abdias reference range : >=90. The reference range was not used to interpret this result as normal/abnormal . GFR 92 See_Comment [Automated [place] (test mL/min/1.73m\\S\\2 message] The code = GFRAA) system which generated this result transmit abdias reference range : >=90. The reference range was not used to interpret this result as normal/abnormal . EGFR (test code = eGFR BY EGFR) CKD-EPI CALCULATION IS NOT RECOMMENDED FOR PATIENTS UNDER 18 YEARS OF AGE. BUN/CREA (test 12 -20 code = BCR) CALCIUM (test code 9.9 mg/dL 8.3-10.6 Previousl y = 09D) reported as: (blank) On 01/17/2022 15:5 5 By km16 BILI TOTAL (test 0.7 mg/dL 0.2-1.0 Previously code = 11A) reported as: 0. 9 On 01/17/2022 15:55 By km16 PROTEIN (test code 8.2 g/dL 5.7-8.2 = 07D) ALBUMIN (test code 5.2 g/dL 3.2-4.8 H = 08D) GLOBULIN (test 3.0 g/dL 1.5-3.8 code = GLB) ALB/GLOB (test 1.7 1.0-2.6 code = AGRR) ALK PHOS (test 64 IU/L 46-116 code = 35A) AST (test code = 45 IU/L See_Comment H [Automated 30A) message] The system which generated this result transmit abdias reference range : <=33. The reference range was not used to interpret this result as normal/abnormal . ALT (test code = 47 IU/L 10-49 31A) SARS-CoV (RAPID ANTIGEN)2022-01-17 11:59:00 Test Item Value Reference Range Interpretation Comments SARS-CoV (ANTIGEN) NEGATIVE NEGATIVE (test code = COVAG) COVID AG (test This test has been code = COVAGC) marketed under the FDA Emergency Use Authorization (EUA) to meet challenges of the COVID-19 pandemic. The validation standards normally enforced by the FDA and the [employer] ([employer]) are more stringent than those required for this test. Therefore, the result should be interpreted with caution and close attention to other clinical and epidemiological data CBC (INCLUDES AUTOMATED DIFFERENTIAL)2022-01-17 09:21:00 Test Item Value Reference Range Interpretation Comments WBC (test code = WBC) 15.5 10\\S\\3/uL 4.5-11.0 H RBC (test code = RBC) 4.33 10\\S\\6/uL 4.30-5.70 HGB (test code = HBG) 13.5 g/dL 12.0-15.5 HCT (test code = HCT) 39.8 % 35.0-44.0 MCV (test code = MCV) 91.9 fL 81.0-99.0 MCH (test code = MCH) 31.2 pg 27.0-31.0 H MCHC (test code = MCHC) 33.9 g/dL 32.0-36.0 RDW (test code = RDW) 13.4 % 11.5-14.5 PLT (test code = PLT) 362 10\\S\\3/uL 130-400 MPV (test code = MPV) 12.1 fL 9.4-12.4 NEUTROP # (test code = NE#) 12.0 10\\S\\3/uL 1.6-8.0 H LYMPH # (test code = LY#) 2.6 10\\S\\3/uL 1.1-3.5 MONOCYTE # (test code = MO#) 0.7 10\\S\\3/uL 0.0-1.1 EOSINOPH # (test code = EO#) 0.0 10\\S\\3/uL 0.0-0.7 BASOPHIL # (test code = BA#) 0.1 10\\S\\3/uL 0.0-0.3 IG # (test code = IG#) 0.08 10\\S\\3/uL 0.00-0.06 H NRBC # (test code = NRBC#) 0.00 10\\S\\3/uL 0.00-0.01 NEUTROPH % (test code = NE%) 77.6 % 35.0-73.0 H LYMPH % (test code = LY%) 16.5 % 20.0-55.0 L MONO % (test code = MO%) 4.8 % 2.5-10.0 EOSINOPH % (test code = EO%) 0.2 % 0.0-5.0 BASOPHIL % (test code = BA%) 0.4 % 0.0-2.0 IG % (test code = IG%) 0.5 % 0.0-0.8 NRBC% (test code = NRBC%) 0.0 % 0.0-0.2 MANDIFF (test code = MDIFF) NO RBC MORPH (test code = RBCMOR) NORMAL [id number] 08:46:00 Test Item Value Reference Range Interpretation Comments AMYLASE (test code = 10A) 47 U/L 30-118 LIPASE [id number] 08:46:00 Test Item Value Reference Range Interpretation Comments LIPASE (test code = 60A) 27 IU/L 12-53 CARDIAC [id number] 08:43:00 Test Item Value Reference Range Interpretation Comments TROPONIN I (test code = A84) 3.14 pg/mL 0.00-45.20 URINALYSIS WITH [id number] 08:38:00 Test Item Value Reference Range Interpretation Comments COLOR (test code = COLU) YELLOW YELLOW CLARITY (test code = CLA) CLOUDY CLEAR A GLUCOSE UR (test code = UA GLUCOSE) NEGATIVE NEGATIVE BILI UR (test code = BILE) NEGATIVE NEGATIVE KETONES UR (test code = ZULMA) TRACE NEGATIVE A SP GRAVITY (test code = SPGR) 1.025 1.005-1.030 PH UR (test code = PH) 6.0 4.5-8.0 PROTEIN UR (test code = PU) 3+ NEGATIVE A UROBIL UR (test code = UROQ) 1.0 EU/dL 0.2-1.0 NITRITE UR (test code = NITRITE) NEGATIVE NEGATIVE BLOOD UR (test code = UA BLOOD) 3+ NEGATIVE A LEUK ES UR (test code = LEUK) 3+ NEGATIVE A WBC UR (test code = UWBC) 35 /HPF 0-5 H RBC UR (test code = URBC) 8 /HPF 0-2 H EPITH UR (test code = UEPC) FEW /LPF FEW BACTERIA UR (test code = UBACT) FEW /HPF NONE A CAST UR (test code = CAST) /LPF NONE CRYSTAL UR (test code = CRYU) / LPF NONE MUCUS UR (test code = MUC) / HPF NONE AMORPH UR (test code = MODE) / HPF NONE TRICH UR (test code = UTRICH) /HPF NONE YEAST UR (test code = UY) /HPF NONE SPERM UR (test code = USPERM) /HPF NONE URINE [id number] 08:27:00 Test Item Value Reference Range Interpretation Comments PREG UR (test code = PGU) NEGATIVE NEGATIVE URINE [id number] 09:05:00 Test Item Value Reference Range Interpretation Comments Isolate 1 (test Coagulase negative code = ISO1) staphylococcus CT ABDOMEN AND PELVIS W/O [id number] 14:30:35 [facility] : 1980 Sex: FCT ABDOMEN AND PELVIS WITHOUT IV CONTRASTHISTORY: Suprapubic painCOMPARISON: CT abdomen and pelvis 12/23/2021TECHNIQUE: Axial CT images of the abdomen and pelvis were obtained with coronal and/or sagittal reformatted views. Automated exposure control, iterative reconstruction technique, and/or adjustment of mA and/orkV according to patient's size was utilized for radiation dose reduction. IV CONTRAST: None.PO CONTRAST: None.Lack of IV contrast limits evaluation of the parenchyma and vasculature.FINDINGS:Visualizedlung bases are clear. The heart size is normal. No pericardial effusion.Gallbladder has been removed. The liver may have a slightly nodular contour which could relate to developing cirrhosis. The unenhanced spleen, pancreas and adrenal glands are unremarkable.There are at least 2 punctate nonobstructing right renal stones. A right ureteral stent is seen extending from the right renal pelvis into the bladder. Nonobstructing left renal stones are also noted. No hydronephrosis in either kidney.Urinary bladder is partially distended without wall thickening. The uterus and ovaries are grossly unremarkable.No free air, free fluid or evidence of a bowel obstruction. The appendix has been removed. Small hiatal hernia. No definite bowel wall thickening.Atherosclerotic calcifications affect the aorta and iliac arteries.No abdominal or pelvic adenopathy.Mild lumbar spondylosis.IMPRESSION:Interval placementof a right ureteral stent extending from the right renal pelvis into the bladder. No hydronephrosis.Bilateral nonobstructing renal stones.Appendectomy.Electronically signed by: Alyson Madsen MD 01/13/2022 2:30 PM CDT [id number] WITH [id number] 14:18:00 Test Item Value Reference Range Interpretation Comments COLOR (test code = COLU) DK YELLOW YELLOW A CLARITY (test code = CLA) HAZY CLEAR A GLUCOSE UR (test code = UA GLUCOSE) NEGATIVE NEGATIVE BILI UR (test code = BILE) NEGATIVE NEGATIVE KETONES UR (test code = ZULMA) NEGATIVE NEGATIVE SP GRAVITY (test code = SPGR) 1.022 1.005-1.030 PH UR (test code = PH) 6.0 4.5-8.0 PROTEIN UR (test code = PU) 2+ NEGATIVE A UROBIL UR (test code = UROQ) 1.0 EU/dL 0.2-1.0 NITRITE UR (test code = NITRITE) POSITIVE NEGATIVE A BLOOD UR (test code = UA BLOOD) 3+ NEGATIVE A LEUK ES UR (test code = LEUK) 2+ NEGATIVE A WBC UR (test code = UWBC) 15 /HPF 0-5 H RBC UR (test code = URBC) 75 /HPF 0-2 H EPITH UR (test code = UEPC) FEW /LPF FEW BACTERIA UR (test code = UBACT) FEW /HPF NONE A CAST UR (test code = CAST) /LPF NONE CRYSTAL UR (test code = CRYU) / LPF NONE MUCUS UR (test code = MUC) / HPF NONE AMORPH UR (test code = MODE) / HPF NONE TRICH UR (test code = UTRICH) /HPF NONE YEAST UR (test code = UY) /HPF NONE SPERM UR (test code = USPERM) /HPF NONE BASIC METABOLIC [id number] 14:07:00 Test Item Value Reference Range Interpretation Comments GLUCOSE (test code 119 mg/dL 75-100 H = 06D) SODIUM (test code 136 mmol/L 136-145 = 01A) POTASSIUM (test 4.5 mmol/L 3.6-5.1 code = 01B) CHLORIDE (test 110 mmol/L 98-107 H code = 04A) CO2 (test code = 22 mmol/L 20-31 02A) ANION GAP (test 8.5 mmol/L code = ANG) BUN (test code = 10 mg/dL 9-23 05D) CREATININE (test 0.9 mg/dL 0.6-1.0 code = 03E) GFR (test code = 79 See_Comment L [Automated GFR) mL/min/1.73m\\S\\2 message] Th e system which generated this result transmit abdias reference range : >=90. The reference range was not used to interpret this result as normal/abnormal . GFR 92 See_Comment [Automated [place] (test mL/min/1.73m\\S\\2 message] The code = GFRAA) system which generated this result transmit abdias reference range : >=90. The reference range was not used to interpret this result as normal/abnormal . EGFR (test code = eGFR BY EGFR) CKD-EPI CALCULATION IS NOT RECOMMENDED FOR PATIENTS UNDER 18 YEARS OF AGE. BUN/CREA (test 11 12-20 L code = BCR) CALCIUM (test code 8.5 mg/dL 8.3-10.6 = 09D) SERUM [id number] 14:03:00 Test Item Value Reference Range Interpretation Comments PREG SRM (test code = PGS) NEGATIVE NEGATIVE CBC (INCLUDES AUTOMATED DIFFERENTIAL)2022-01-13 14:02:00 Test Item Value Reference Range Interpretation Comments WBC (test code = WBC) 11.6 10\\S\\3/uL 4.5-11.0 H RBC (test code = RBC) 4.46 10\\S\\6/uL 4.30-5.70 HGB (test code = HBG) 14.0 g/dL 12.0-15.5 HCT (test code = HCT) 42.1 % 35.0-44.0 MCV (test code = MCV) 94.4 fL 81.0-99.0 MCH (test code = MCH) 31.4 pg 27.0-31.0 H MCHC (test code = MCHC) 33.3 g/dL 32.0-36.0 RDW (test code = RDW) 13.2 % 11.5-14.5 PLT (test code = PLT) 348 10\\S\\3/uL 130-400 MPV (test code = MPV) 11.9 fL 9.4-12.4 NEUTROP # (test code = NE#) 7.2 10\\S\\3/uL 1.6-8.0 LYMPH # (test code = LY#) 3.1 10\\S\\3/uL 1.1-3.5 MONOCYTE # (test code = MO#) 0.9 10\\S\\3/uL 0.0-1.1 EOSINOPH # (test code = EO#) 0.2 10\\S\\3/uL 0.0-0.7 BASOPHIL # (test code = BA#) 0.1 10\\S\\3/uL 0.0-0.3 IG # (test code = IG#) 0.09 10\\S\\3/uL 0.00-0.06 H NRBC # (test code = NRBC#) 0.00 10\\S\\3/uL 0.00-0.01 NEUTROPH % (test code = NE%) 62.4 % 35.0-73.0 LYMPH % (test code = LY%) 27.1 % 20.0-55.0 MONO % (test code = MO%) 7.7 % 2.5-10.0 EOSINOPH % (test code = EO%) 1.6 % 0.0-5.0 BASOPHIL % (test code = BA%) 0.4 % 0.0-2.0 IG % (test code = IG%) 0.8 % 0.0-0.8 NRBC% (test code = NRBC%) 0.0 % 0.0-0.2 MANDIFF (test code = MDIFF) NO RBC MORPH (test code = RBCMOR) NORMAL CT, [id number] 19:32:00Unlisted Reason for Exam - Click Yes and Enter Reason Below->NoIs this for enterography?->NoPlease specify:->Renal Stone ProtocolWill this procedure require oral contrast?->No [facility] : 1980 Sex: FFINAL REPORT TECHNIQUE: CT of the abdomen and pelvis WITHOUT intravenous contrast and WITHOUT oral contrast. Dose modulation, iterative reconstruction, and/or weight-based adjustment of the mA/kV was utilized to reduce the radiation dose to as low as reasonably achievable. INDICATION: Flank pain, kidney stone suspected. COMPARISON: 04/03/2020. FINDINGS: ABSENCE OF INTRAVENOUS CONTRAST DECREASES SENSITIVITY FOR DETECTION OF FOCAL LESIONS AND VASCULAR PATHOLOGY. LOWER THORAX: Unremarkable. HEPATOBILIARY: No focal hepatic lesions. Gallbladder is surgically absent. No biliary ductal dilatation.SPLEEN: No splenomegaly.PANCREAS: No focal masses or ductal dilatation. ADRENALS: No adrena l nodules.KIDNEYS/URETERS: A right ureteric stent is present extending from the right renal ureteropelvic junction to the right aspect of the bladder. There are nonobstructing calculi in both renal pelvises up to 0.2 cm on the right and 0.3 cm on the left. No hydronephrosis. There is mild periuretericstranding involving the right ureter.PELVIC ORGANS/BLADDER: Unremarkable. PERITONEUM/RETROPERITONEUM: No free air or fluid.LYMPH NODES: No lymphadenopathy.VESSELS: Unremarkable. GI TRACT: No distentionor wall thickening. Appendix is absent. BONES AND SOFT TISSUES: No acute osseous abnormality. Soft tissues are unremarkable. IMPRESSION: 1. The ureteric stent is in place extending from the right ureteropelvic junction to the bladder. No hydronephrosis. There is mild periureteric stranding involving the right ureter which may be related to postprocedural changes or could also reflect ureteritis. Consider correlation with urinalysis. 2. No obstructing bilateral nephrolithiasis. Signed: Serjio Ruelas MDReport Verified Date/Time: 01/10/2022 19:32:37 [id number] 16:47:32 Test Item Value Reference Range Interpretation Comments LIPASE (BEAKER) (test code = 749) 8 U/L 6-51 Motor Vehicle Examiner ID - [id number] ID - [id number] ID - [id number] ID - [id number] METABOLIC [id number] 16:47:05 Test Item Value Reference Range Interpretation Comments TOTAL PROTEIN 6.8 gm/dL 6.0-8.5 (BEAKER) (test code = 770) ALBUMIN (BEAKER) 3.8 g/dL 3.5-5.0 (test code = 1145) ALKALINE PHOSPHATASE 44 U/L 30-115 (BEAKER) (test code = 346) BILIRUBIN TOTAL 0.3 mg/dL 0.1-1.2 (BEAKER) (test code = 377) SODIUM (BEAKER) (test 135 meq/L 135-148 code = 381) POTASSIUM (BEAKER) 4.4 meq/L 3.6-5.5 (test code = 379) CHLORIDE (BEAKER) 106 meq/L 98-106 (test code = 382) CO2 (BEAKER) (test 22 meq/L 20-29 code = 355) BLOOD UREA NITROGEN 13 mg/dL 10-26 (BEAKER) (test code = 354) CREATININE (BEAKER) 0.78 mg/dL 0.50-1.20 (test code = 358) GLUCOSE RANDOM 91 mg/dL 70-110 (BEAKER) (test code = 652) CALCIUM (BEAKER) 8.4 mg/dL 8.5-10.5 L (test code = 697) AST (SGOT) (BEAKER) 18 U/L 5-40 (test code = 353) ALT (SGPT) (BEAKER) 24 U/L 5-50 (test code = 347) EGFR (BEAKER) (test 81 mL/min/1.73 ESTIMA ABDIAS GFR IS code = 1092) sq m NOT ACCURATE CREATININE CLEARANCE IN PREDICTING GLOMERULAR FILTRATION RATE . ESTIMATED GFR I S NOT APPLICABLE FOR DIALYSIS PATIEN TS. Motor Vehicle Examiner ID - [id number] ID - [id number] ID - [id number] ID - [id number] ID - [id number] ID - [id number] ID - [id number] ID - [id number] ID - [id number] ID - [id number] ID - [id number] ID - [id number] ID - [id number] ID - [id number] ID - [id number] ID - [id number] URINALYSIS W/ REFLEX URINE [id number] 16:36:26 Test Item Value Reference Range Interpretation Comments COLOR (BEAKER) (test code = 470) [place] CLARITY (BEAKER) (test code = Cloudy 469) SPECIFIC GRAVITY UA (BEAKER) >= 1.001-1.035 (test code = 468) PH UA (BEAKER) (test code = 467) 6.0 5.0-8.0 PROTEIN UA (BEAKER) (test code = 100 mg/dL Negative A 464) GLUCOSE UA (BEAKER) (test code = Negative Negative 365) KETONES UA (BEAKER) (test code = Negative Negative 371) BILIRUBIN UA (BEAKER) (test code Positive Negative A = 462) BLOOD UA (BEAKER) (test code = Large Negative A 461) NITRITE UA (BEAKER) (test code = Negative Negative 465) LEUKOCYTE ESTERASE UA (BEAKER) Small Negative A (test code = 466) UROBILINOGEN UA (BEAKER) (test 0.2 mg/dL 0.2-1.0 code = 463) BACTERIA (BEAKER) (test code = None Seen 517) YEAST (BEAKER) (test code = 1585) Occasional RBC UA-MANUAL (BEAKER) (test code 50-100 /HPF = 1659) WBC UA-MANUAL (BEAKER) (test code <5 /HPF = 1661) SQUAMOUS EPITHELIAL MANUAL 5-10 /HPF (BEAKER) (test code = 1663) SOURCE(BEAKER) (test code = 2795) SCREEN, [id number] 16:36:04 Test Item Value Reference Range Interpretation Comments TEST URINE (BEAKER) (test Negative code = 583) CBC W/PLT COUNT & AUTO [id number] 16:27:24 Test Item Value Reference Range Interpretation Comments WHITE BLOOD CELL COUNT (BEAKER) 7.9 K/ L 4.0-10.0 (test code = 775) RED BLOOD CELL COUNT (BEAKER) 4.15 M/ L 4.00-5.00 (test code = 761) HEMOGLOBIN (BEAKER) (test code = 13.1 GM/DL 12.0-15.5 410) HEMATOCRIT (BEAKER) (test code = 37.9 % 36.0-46.0 411) MEAN CORPUSCULAR VOLUME (BEAKER) 91.3 fL 82.0-99.0 (test code = 753) MEAN CORPUSCULAR HEMOGLOBIN 31.6 pg 27.0-33.0 (BEAKER) (test code = 751) MEAN CORPUSCULAR HEMOGLOBIN CONC 34.6 GM/DL 32.0-36.0 (BEAKER) (test code = 752) RED CELL DISTRIBUTION WIDTH 13.2 % 12.0-15.0 (BEAKER) (test code = 412) PLATELET COUNT (BEAKER) (test 300 K/CU MM 150-430 code = 756) MEAN PLATELET VOLUME (BEAKER) 11.1 fL 6.0-11.5 (test code = 754) NUCLEATED RED BLOOD CELLS 0 /100 WBC 0-0 (BEAKER) (test code = 413) NEUTROPHILS RELATIVE PERCENT 56 % (BEAKER) (test code = 429) LYMPHOCYTES RELATIVE PERCENT 32 % (BEAKER) (test code = 430) MONOCYTES RELATIVE PERCENT 9 % (BEAKER) (test code = 431) EOSINOPHILS RELATIVE PERCENT 3 % (BEAKER) (test code = 432) BASOPHILS RELATIVE PERCENT 0 % (BEAKER) (test code = 437) NEUTROPHILS ABSOLUTE COUNT 4.38 K/ L 1.80-8.00 (BEAKER) (test code = 670) LYMPHOCYTES ABSOLUTE COUNT 2.51 K/ L 1.48-4.50 (BEAKER) (test code = 414) MONOCYTES ABSOLUTE COUNT (BEAKER) 0.71 K/ L 0.00-1.30 (test code = 415) EOSINOPHILS ABSOLUTE COUNT 0.22 K/ L 0.00-0.50 (BEAKER) (test code = 416) BASOPHILS ABSOLUTE COUNT (BEAKER) 0.03 K/ L 0.00-0.20 (test code = 417) IMMATURE GRANULOCYTES-RELATIVE 0 % 0-0 PERCENT (BEAKER) (test code = 2801) FL, FLUORO, NON-SPECIFIC, UP TO 1 [id number] 14:30:00Reason for exam:- >CYSTO, URETEROSCOPY, ROOM 2 [facility] : 1980 Sex: FAn imaging unit was utilized for this procedure. No radiologist interpretation was requested. Refer to the EMR for findings. Refer to PACS for any patient radiation dose information. SCREEN, [id number] 12:00:57 Test Item Value Reference Range Interpretation Comments TEST URINE (BEAKER) (test Negative code = 583) SARS-CoV2/RT-PCR (Asymptomatic ONLY)2022-01-01 17:14:50 Test Item Value Reference Interpretation Comments Range SARS-COV2/RT-PCR Negative Negative The SARS-Co V-2 (test code = target nucleic 48179-9) acids are not detected in thi s specimen. Negat nataliia results do not preclude SARS-C oV-2 infection and should not be u sed as the sole bas is for patient management decisions. Nega tive results must be combined with clinical observations, patient history , and epidemiolog ical information. A false negative result may occu r if a specimen is improperly collected, transported or handled. This S ARS CoV-2 test is a rapid, real-jan e RT-PCR test intended for th e qualitative detection of nucleic acid fr om SARS-CoV-2 in a nasopharyngeal swab specimen colle abdias from individual s suspected of COVID-19 by the ir healthcare provider. LEXA (test code = This test has been LEXA) authorized by FDA under an EUA for use by authorized laboratories. This test is only authorized for the duration of the declaration that circumstances exist justifying the authorization of emergency use of in vitro diagnostic tests for detection and/or diagnosis of COVID-19 under Section 564(b)(1) of the Federal Food, Drug and Cosmetic Act, 21 U.S.C. 360bbb-3(b)(1), unless the authorization is terminated or revoked sooner. Fact Sheet for Healthcare Providers: https://www.[employer].com/Documents/Xp ert%20Xpress%20SAR S%20CoV-2/Fact%20S heets/302-3802%20S ARS-COV-2%20HEALTH CARE%20PROVIDERS%2 0FACT%20SHEET.pdf Fact Sheet for Healthcare Patients: https://www.[employer]/Documents/Xp ert%20Xpress%20SAR S%20CoV-2/Fact%20S heets/302-3801%20S ARS-COV-2%20PATIEN T%20FACT%20SHEET.p df Lab Interpretation Normal (test code = 96350-4) [facility]-01 17:14:50 Test Item Value Reference Interpretation Comments Range SARS-COV2/RT-PCR Negative Negative The SARS-Co V-2 (test code = target nucleic 58045-8) acids are not detected in thi s specimen. Negat nataliia results do not preclude SARS-C oV-2 infection and should not be u sed as the sole bas is for patient management decisions. Nega tive results must be combined with clinical observations, patient history , and epidemiolog ical information. A false negative result may occu r if a specimen is improperly collected, transported or handled. This S ARS CoV-2 test is a rapid, real-jan e RT-PCR test intended for th e qualitative detection of nucleic acid fr om SARS-CoV-2 in a nasopharyngeal swab specimen collec abdias from individual s suspected of COVID-19 by the ir healthcare provider. LEXA (test code = This test has been LEXA) authorized by FDA under an EUA for use by authorized laboratories. This test is only authorized for the duration of the declaration that circumstances exist justifying the authorization of emergency use of in vitro diagnostic tests for detection and/or diagnosis of COVID-19 under Section 564(b)(1) of the Federal Food, Drug and Cosmetic Act, 21 U.S.C. 360bbb-3(b)(1), unless the authorization is terminated or revoked sooner. Fact Sheet for Healthcare Providers: https://www.[employer]/Documents/Xp ert%20Xpress%20SAR S%20CoV-2/Fact%20S heets/302-3802%20S ARS-COV-2%20HEALTH CARE%20PROVIDERS%2 0FACT%20SHEET.pdf Fact Sheet for Healthcare Patients: https://www.[employer]/Documents/Xp ert%20Xpress%20SAR S%20CoV-2/Fact%20S heets/3023801%20S ARS-COV-2%20PATIEN T%20FACT%20SHEET.p df Lab Interpretation Normal (test code = 85616-6) [facility])2022-01-01 17:14:50 Test Item Value Reference Range Interpretation Comments SARS-COV2/RT-PCR Negative Negative The SARS-Co V-2 target (test code = nucleic acids a re not 4401405) detected in thi s specimen. Negative result s do not preclude SARS-C oV-2 infection and s hould not be used as the eileen e basis for patient managem ent decisions. Nega tive results must be combine d with clinical observ ations, patient history , and epidemiological information. A false negativ e result may occur if a spec imen is improperly karri ected, transported or handled. This SARS CoV-2 test is a rapid, real-jan e RT-PCR test intended for th e qualitative detection of nu cleic acid from SARS-CoV-2 in a nasopharyngeal swab specimen collected from individuals suspected of CO VID-19 by their healthcar e provider. This test has been authorized by FDA under an EUA for use by authorized laboratories. This test is only authorized for the duration of the declaration that circumstances exist justifying the authorization of emergency use of in vitro diagnostic tests for detection and/or diagnosis of COVID-19 under Section 564(b)(1) of the Federal Food, Drug and Cosmetic Act, 21 U.S.C. 360bbb-3(b)(1), unless the authorization is terminated or revoked sooner. Fact Sheet for Healthcare Providers: https://www.ActiveRain m/Documents/Xpert%20Xpress%20SARS%20CoV-2/Fact%20Sheets/3023802%15YRLZ-AUL-5%20 HEALTHCARE%20PROVIDERS%20FACT%20SHEET.pdf Fact Sheet for Healthcare Patients: https://www.[employer]/Documents/Xpert%20Xp ress%20SARS%20CoV-2/Fact%20Sheets/302-3801%36NPQA-TDB-2%20PATIENT%20FACT%20SHEET .pdfBASI METABOLIC [id number] 10:13:02 Test Item Value Reference Range Interpretation Comments SODIUM (BEAKER) 138 meq/L 135-148 (test code = 381) POTASSIUM (BEAKER) 4.4 meq/L 3.6-5.5 (test code = 379) CHLORIDE (BEAKER) 105 meq/L 98-106 (test code = 382) CO2 (BEAKER) (test 24 meq/L 20-29 code = 355) BLOOD UREA NITROGEN 8 mg/dL 10-26 L (BEAKER) (test code = 354) CREATININE (BEAKER) 0.76 mg/dL 0.50-1.20 (test code = 358) GLUCOSE RANDOM 96 mg/dL 70-110 (BEAKER) (test code = 652) CALCIUM (BEAKER) 9.0 mg/dL 8.5-10.5 (test code = 697) EGFR (BEAKER) (test 83 mL/min/1.73 ESTIMA ABDIAS GFR IS code = 1092) sq m NOT ACCURATE CREATININE CLEARANCE IN PREDICTING GLOMERULAR FILTRATION RATE . ESTIMATED GFR I S NOT APPLICABLE FOR DIALYSIS PATIEN TS. Motor Vehicle Examiner ID - DSENSONOperator ID - DSENSONOperator ID - DSENSONOperator ID - DSENSONOperator ID - DSENSONOperator ID - DSENSONOperator ID - DSENSONOperator ID - DSENSONOperator ID - DSENSONOperator ID - DSENSONOperator ID - DSENSONOperator ID - [id number] TIME/[id number] 10:08:26 Test Item Value Reference Range Interpretation Comments PROTIME (BEAKER) 10.2 seconds 9.3-12.0 Final Infor mation (test code = 759) (Auto Outp ut) INR (BEAKER) (test 0.92 See_Comment Final Inf ormation code = 370) (Auto Output) [Automated mess age] The system [employer] generated this result transmitted ref erence range: <=5.90. The reference range was not used to int erpret this result as normal/abnormal . RECOMMENDED COUMADIN/WARFARIN INR THERAPY RANGESSTANDARD DOSE: 2.0 - 3.0 Includes: PROPHYLAXIS for venous thrombosis, systemic embolization; TREATMENT for venous thrombosis and/or pulmonary embolus.HIGH RISK: Target INR is 2.5-3.5 for patients with mechanical heart valves.CBC W/PLT COUNT & AUTO [id number] 09:59:29 Test Item Value Reference Range Interpretation Comments WHITE BLOOD CELL COUNT (BEAKER) 6.0 K/ L 4.0-10.0 (test code = 775) RED BLOOD CELL COUNT (BEAKER) 4.54 M/ L 4.00-5.00 (test code = 761) HEMOGLOBIN (BEAKER) (test code = 14.2 GM/DL 12.0-15.5 410) HEMATOCRIT (BEAKER) (test code = 41.4 % 36.0-46.0 411) MEAN CORPUSCULAR VOLUME (BEAKER) 91.2 fL 82.0-99.0 (test code = 753) MEAN CORPUSCULAR HEMOGLOBIN 31.3 pg 27.0-33.0 (BEAKER) (test code = 751) MEAN CORPUSCULAR HEMOGLOBIN CONC 34.3 GM/DL 32.0-36.0 (BEAKER) (test code = 752) RED CELL DISTRIBUTION WIDTH 13.1 % 12.0-15.0 (BEAKER) (test code = 412) PLATELET COUNT (BEAKER) (test 293 K/CU MM 150-430 code = 756) MEAN PLATELET VOLUME (BEAKER) 11.3 fL 6.0-11.5 (test code = 754) NUCLEATED RED BLOOD CELLS 0 /100 WBC 0-0 (BEAKER) (test code = 413) NEUTROPHILS RELATIVE PERCENT 44 % (BEAKER) (test code = 429) LYMPHOCYTES RELATIVE PERCENT 45 % (BEAKER) (test code = 430) MONOCYTES RELATIVE PERCENT 8 % (BEAKER) (test code = 431) EOSINOPHILS RELATIVE PERCENT 3 % (BEAKER) (test code = 432) BASOPHILS RELATIVE PERCENT 0 % (BEAKER) (test code = 437) NEUTROPHILS ABSOLUTE COUNT 2.61 K/ L 1.80-8.00 (BEAKER) (test code = 670) LYMPHOCYTES ABSOLUTE COUNT 2.70 K/ L 1.48-4.50 (BEAKER) (test code = 414) MONOCYTES ABSOLUTE COUNT (BEAKER) 0.49 K/ L 0.00-1.30 (test code = 415) EOSINOPHILS ABSOLUTE COUNT 0.17 K/ L 0.00-0.50 (BEAKER) (test code = 416) BASOPHILS ABSOLUTE COUNT (BEAKER) 0.02 K/ L 0.00-0.20 (test code = 417) IMMATURE GRANULOCYTES-RELATIVE 0 % 0-0 PERCENT (BEAKER) (test code = 2801) CT STONE PROTOCOL [id number] 15:47:08 [facility] : 1980 Sex: FLOCATION: Pending [facility] ISTORY: 41-year-old female who presents with flank pain.COMMENT:Axial CT imaging of this patient's abdomen and pelvis was obtained without IV contrast. Coronal and sagittal soft tissue reconstructions were included. An older examination of December 23, 2019 is available for comparison.One or more of the following dose reduction techniques are used: Automated exposure control, adjustment of the mA and/or kV according the patient size, and/or utilization of iterative reconstruction technique.DLP: 955 mGy-cmCONTRAST: NoneFINDINGS:The lung bases are clear. The cardiac silhouette is unremarkable.Again seen are nonobstructing stones in the cortices of both kidneys. Currently there is no evidence of obstructive uropathy.Numerous nonobstructing stones are again seen in both kidneys.The liver, spleen, pancreas, and adrenal glands are unremarkable.Cholecystectomy clips are noted.The upper intestinal tract and the small intestine are unremarkable.Postsurgical changes secondary to an appendectomy are noted.The colon exhibits no acute findings. Diverticulosis is seen in the left hemicolon.There is no ascites oradenopathy present.In the pelvis the urinary bladder, uterus, and ovaries are unremarkable.The vascular anatomy is unremarkable.The musculoskeletal anatomy is unremarkable.IMPRESSION:There are no acutefindings in this patient's abdomen or pelvis on this unenhanced CT examination.Again seen are bilateral nonobstructing stones.Diverticulosis is seen in the left hemicolon.Electronically signed by: Jeremi Hassan MD 12/23/2021 3:47 PM CDT [id number] METABOLIC [id number] 15:34:00 Test Item Value Reference Range Interpretation Comments GLUCOSE (test code 119 mg/dL 75-100 H = 06D) SODIUM (test code 140 mmol/L 136-145 = 01A) POTASSIUM (test 4.6 mmol/L 3.6-5.1 code = 01B) CHLORIDE (test 109 mmol/L 98-107 H code = 04A) CO2 (test code = 25 mmol/L 20-31 02A) ANION GAP (test 10.6 mmol/L code = ANG) BUN (test code = 7 mg/dL 9-23 L 05D) CREATININE (test 0.8 mg/dL 0.6-1.0 code = 03E) GFR (test code = 91 See_Comment [Automated GFR) mL/min/1.73m\\S\\2 message] Th e system which generated this result transmit abdias reference range : >=90. The reference range was not used to interpret this result as normal/abnormal . GFR 106 See_Comment [Automated [place] (test mL/min/1.73m\\S\\2 message] The code = GFRAA) system which generated this result transmit abdias reference range : >=90. The reference range was not used to interpret this result as normal/abnormal . EGFR (test code = eGFR BY EGFR) CKD-EPI CALCULATION IS NOT RECOMMENDED FOR PATIENTS UNDER 18 YEARS OF AGE. BUN/CREA (test 9 12-20 L code = BCR) CALCIUM (test code 8.6 mg/dL 8.3-10.6 = 09D) BILI TOTAL (test 0.3 mg/dL 0.2-1.0 code = 11A) PROTEIN (test code 7.6 g/dL 5.7-8.2 = 07D) ALBUMIN (test code 4.5 g/dL 3.2-4.8 = 08D) GLOBULIN (test 3.1 g/dL 1.5-3.8 code = GLB) ALB/GLOB (test 1.5 1.0-2.6 code = AGRR) ALK PHOS (test 64 IU/L 46-116 code = 35A) AST (test code = 58 IU/L See_Comment H [Automated 30A) message] The system which generated this result transmit abdias reference range : <=33. The reference range was not used to interpret this result as normal/abnormal . ALT (test code = 61 IU/L 10-49 H 31A) LIPASE [id number] 15:34:00 Test Item Value Reference Range Interpretation Comments LIPASE (test code = 60A) 64 IU/L 12-53 H [id number] 15:34:00 Test Item Value Reference Range Interpretation Comments MAGNESIUM (test code = 48A) 2.1 mg/dL 1.6-2.6 SERUM [id number] 15:30:00 Test Item Value Reference Range Interpretation Comments PREG SRM (test code = PGS) NEGATIVE NEGATIVE CBC (INCLUDES AUTOMATED DIFFERENTIAL)2021-12-23 15:25:00 Test Item Value Reference Range Interpretation Comments WBC (test code = WBC) 6.6 10\\S\\3/uL 4.5-11.0 RBC (test code = RBC) 4.77 10\\S\\6/uL 4.30-5.70 HGB (test code = HBG) 15.0 g/dL 12.0-15.5 HCT (test code = HCT) 44.6 % 35.0-44.0 H MCV (test code = MCV) 93.5 fL 81.0-99.0 MCH (test code = MCH) 31.4 pg 27.0-31.0 H MCHC (test code = MCHC) 33.6 g/dL 32.0-36.0 RDW (test code = RDW) 13.3 % 11.5-14.5 PLT (test code = PLT) 203 10\\S\\3/uL 130-400 MPV (test code = MPV) 12.0 fL 9.4-12.4 NEUTROP # (test code = NE#) 3.6 10\\S\\3/uL 1.6-8.0 LYMPH # (test code = LY#) 2.2 10\\S\\3/uL 1.1-3.5 MONOCYTE # (test code = MO#) 0.6 10\\S\\3/uL 0.0-1.1 EOSINOPH # (test code = EO#) 0.1 10\\S\\3/uL 0.0-0.7 BASOPHIL # (test code = BA#) 0.0 10\\S\\3/uL 0.0-0.3 IG # (test code = IG#) 0.03 10\\S\\3/uL 0.00-0.06 NRBC # (test code = NRBC#) 0.00 10\\S\\3/uL 0.00-0.01 NEUTROPH % (test code = NE%) 55.0 % 35.0-73.0 LYMPH % (test code = LY%) 33.8 % 20.0-55.0 MONO % (test code = MO%) 8.5 % 2.5-10.0 EOSINOPH % (test code = EO%) 1.7 % 0.0-5.0 BASOPHIL % (test code = BA%) 0.5 % 0.0-2.0 IG % (test code = IG%) 0.5 % 0.0-0.8 NRBC% (test code = NRBC%) 0.0 % 0.0-0.2 MANDIFF (test code = MDIFF) NO RBC MORPH (test code = RBCMOR) NORMAL CT ABDOMEN AND PELVIS W/O [id number] 14:54:57 [facility] : 1980 Sex: FHISTORY: Flankpain; Abdominal painEXAM: CT abdomen and pelvis without IV contrast.Location code:[id number]:Contrast - No IV contrast was given,Noncontrast phase - abdomen and pelvis including all of kidneysReconstructions - coronal and sagittal planesOne or more of the following dose reduction techniques were used: Automated exposure control, adjustment of the mA and/or kV according to patient size, and/or utilization of iterative reconstruction technique.COMPARISON: 06/19/2021FINDINGS:Statements: Lack of intravenous contrast compromises evaluation of abdominopelvic organs and vasculature. Lack of oral contrast c ompromises evaluation of bowel. Thoracic: Included images of the lower chest demonstrate no abnormalities.Hepatobiliary: The liver is enlarged at 22.7 cm. Status post cholecystectomy. No biliary dilation.Pancreas: Normal.Spleen: Normal. Adrenals: Normal.Genitourinary: Bilateral nonobstructing nephrolithiasis is present. Evaluation of the bladder is limited, but no obvious bladder abnormality is present. Uterus and adnexa are unremarkable by CT standards.Gastrointestinal: No bowel obstruction or perienteric inflammation. The appendix is surgically absent.Vascular: Atherosclerotic calcifications are s een within the aorta and branch vessels. Lymphatics: No enlarged lymph nodes by CT size criteria.Bones/Soft Tissues: No acute osseous findings. No ventral hernias.Peritoneum/Other: No extraluminal air.No extraluminal fluid.IMPRESSION:1. Bilateral nonobstructing nephrolithiasis is present.2. Hepatomegaly. Electronically signed by: Zachary Colin MD 12/22/2021 2:54 PM CDT [id number] WITH [id number] 14:36:00 Test Item Value Reference Range Interpretation Comments COLOR (test code = COLU) RED YELLOW A CLARITY (test code = CLA) TURBID CLEAR A GLUCOSE UR (test code = UA NEGATIVE NEGATIVE GLUCOSE) BILI UR (test code = BILE) 1+ NEGATIVE A KETONES UR (test code = ZULMA) NEGATIVE NEGATIVE SP GRAVITY (test code = SPGR) 1.020 1.005-1.030 PH UR (test code = PH) 7.5 4.5-8.0 PROTEIN UR (test code = PU) 2+ NEGATIVE A UROBIL UR (test code = UROQ) 0.2 EU/dL 0.2-1.0 NITRITE UR (test code = NEGATIVE NEGATIVE NITRITE) BLOOD UR (test code = UA BLOOD) 3+ NEGATIVE A LEUK ES UR (test code = LEUK) 2+ NEGATIVE A WBC UR (test code = UWBC) 8 /HPF 0-5 H RBC UR (test code = URBC) >100 /HPF 0-2 H EPITH UR (test code = UEPC) MODERATE /LPF FEW A BACTERIA UR (test code = UBACT) MODERATE /HPF NONE A CAST UR (test code = CAST) /LPF NONE CRYSTAL UR (test code = CRYU) / LPF NONE MUCUS UR (test code = MUC) / HPF NONE AMORPH UR (test code = MODE) / HPF NONE TRICH UR (test code = UTRICH) /HPF NONE YEAST UR (test code = UY) /HPF NONE SPERM UR (test code = USPERM) /HPF NONE URINE [id number] 14:23:00 Test Item Value Reference Range Interpretation Comments PREG UR (test code = PGU) NEGATIVE NEGATIVE COMPREHENSIVE METABOLIC [id number] 13:49:00 Test Item Value Reference Range Interpretation Comments GLUCOSE (test code 94 mg/dL 75-100 = 06D) SODIUM (test code 139 mmol/L 136-145 = 01A) POTASSIUM (test 3.7 mmol/L 3.6-5.1 code = 01B) CHLORIDE (test 108 mmol/L 98-107 H code = 04A) CO2 (test code = 26 mmol/L 20-31 02A) ANION GAP (test 8.7 mmol/L code = ANG) BUN (test code = 7 mg/dL 9-23 L 05D) CREATININE (test 0.7 mg/dL 0.6-1.0 code = 03E) GFR (test code = 107 See_Comment [Automated GFR) mL/min/1.73m\\S\\2 message] e system which generated this result transmit abdias reference range : >=90. The reference range was not used to interpret this result as normal/abnormal . GFR 124 See_Comment [Automated [place] (test mL/min/1.73m\\S\\2 message] The code = GFRAA) system which generated this result transmit abdias reference range : >=90. The reference range was not used to interpret this result as normal/abnormal . EGFR (test code = eGFR BY EGFR) CKD-EPI CALCULATION IS NOT RECOMMENDED FOR PATIENTS UNDER 18 YEARS OF AGE. BUN/CREA (test 10 12-20 L code = BCR) CALCIUM (test code 8.1 mg/dL 8.3-10.6 L = 09D) BILI TOTAL (test 0.3 mg/dL 0.2-1.0 code = 11A) PROTEIN (test code 7.3 g/dL 5.7-8.2 = 07D) ALBUMIN (test code 4.3 g/dL 3.2-4.8 = 08D) GLOBULIN (test 3.0 g/dL 1.5-3.8 code = GLB) ALB/GLOB (test 1.4 1.0-2.6 code = AGRR) ALK PHOS (test 53 IU/L 46-116 code = 35A) AST (test code = 28 IU/L See_Comment [Automated 30A) message] The system which generated this result transmit abdias reference range : <=33. The reference range was not used to interpret this result as normal/abnormal . ALT (test code = 23 IU/L 1049 31A) LIPASE [id number] 13:49:00 Test Item Value Reference Range Interpretation Comments LIPASE (test code = 60A) 22 IU/L 12-53 CBC (INCLUDES AUTOMATED DIFFERENTIAL)2021-12-22 13:35:00 Test Item Value Reference Range Interpretation Comments WBC (test code = WBC) 6.9 10\\S\\3/uL 4.5-11.0 RBC (test code = RBC) 4.67 10\\S\\6/uL 4.30-5.70 HGB (test code = HBG) 14.7 g/dL 12.0-15.5 HCT (test code = HCT) 43.8 % 35.0-44.0 MCV (test code = MCV) 93.8 fL 81.0-99.0 MCH (test code = MCH) 31.5 pg 27.0-31.0 H MCHC (test code = MCHC) 33.6 g/dL 32.0-36.0 RDW (test code = RDW) 13.2 % 11.5-14.5 PLT (test code = PLT) 322 10\\S\\3/uL 130-400 MPV (test code = MPV) 11.3 fL 9.4-12.4 NEUTROP # (test code = NE#) 3.7 10\\S\\3/uL 1.6-8.0 LYMPH # (test code = LY#) 2.4 10\\S\\3/uL 1.1-3.5 MONOCYTE # (test code = MO#) 0.5 10\\S\\3/uL 0.0-1.1 EOSINOPH # (test code = EO#) 0.2 10\\S\\3/uL 0.0-0.7 BASOPHIL # (test code = BA#) 0.0 10\\S\\3/uL 0.0-0.3 IG # (test code = IG#) 0.04 10\\S\\3/uL 0.00-0.06 NRBC # (test code = NRBC#) 0.00 10\\S\\3/uL 0.00-0.01 NEUTROPH % (test code = NE%) 53.4 % 35.0-73.0 LYMPH % (test code = LY%) 34.9 % 20.0-55.0 MONO % (test code = MO%) 7.8 % 2.5-10.0 EOSINOPH % (test code = EO%) 2.9 % 0.0-5.0 BASOPHIL % (test code = BA%) 0.4 % 0.0-2.0 IG % (test code = IG%) 0.6 % 0.0-0.8 NRBC% (test code = NRBC%) 0.0 % 0.0-0.2 MANDIFF (test code = MDIFF) NO RBC MORPH (test code = RBCMOR) NORMAL Urine [id number] 14:01:40 Test Item Value Reference Range Interpretation Comments Result (test code = 6463-4) No growth [facility] [id number] 14:01:40 Test Item Value Reference Range Interpretation Comments Result (test code = 6463-4) No growth [facility] [id number] 14:01:40 Test Item Value Reference Range Interpretation Comments CULTURE (BEAKER) (test code = 1095) No growth RAD, ABDOMEN/KUB 1 VIEW [id number] 10:50:00Reason for Exam:->N20 [facility] 1980 Sex: FFINAL REPORT KUB History provided: N 20 No small or large bowel dilatation. No obstructive signs or localizing abnormalities. Right upper quadrant cholecystectomy clips. Signed: Nirav Sprague Verified Date/Time: 08/24/2021 10:50:54 Reading Location: [facility] Radiology Reading Room U/S, RENAL, [id number] 14:03:00Reason for exam:->R flank painReason for exam:- >R/O blockage[facility] : 1980 Sex: FFINAL REPORT TECHNIQUE: Grayscale ultrasound of the kidneys and bladder. INDICATION: Right flank pain. COMPARISON: CT 04/03/2020. FINDINGS: RIGHT KIDNEY: The right kidney measures 10.5 cm. Cortical thickness measures 3.9 cm. No solid mass lesions. No hydronephrosis. Renal artery andvein are patent. LEFT KIDNEY: The left kidney measures 11.3 cm. Cortical thickness measures 1.4 cm. No solid mass lesions. No hydronephrosis. Renal artery and vein are patent. 0.6 cm nonobstructing calculus in the interpolar region left kidney. BLADDER: Unremarkable. Incidental note is made of increased echogenicity liver suggesting steatosis. IMPRESSION:0.6 cm nonobstructing calculus in the interpolar region left kidney. Additional previously described nonobstructing calculi in the right kidney arenot visualized on this exam. No hydronephrosis.. Signed: Dillon Ford MDReport Verified Date/Time: 06/20/2021 14:03:14 Rapid drug screen, [id number] 11:49:39 Test Item Value Reference Range Interpretation Comments Barbiturate Screen Negative Negative (test code = 03224-1) Benzodiazepine Screen Negative Negative (test code = 17502-3) Cocaine (Metab.) Negative Negative Screen (test code = 3397-7) Opiate Screen (test Negative Negative code = 98344-8) Cannabinoid Screen Positive Negative A (test code = 40848-5) Amph/Methamph Screen Negative Negative (test code = 90270-8) Phencyclidine Screen Negative Negative (test code = 60021-9) pH, UA (test code = 6.0 5.0-8.0 5803-2) LEXA (test code = LEXA) DRUG CUTOFF CONC.Cocaine 300 ng/mL Cannabinoid 50 ng/mLBenzodiazepine 200 ng/mLBarbiturate 200 ng/mLPhencyclidine 25 ng/mLOpiate 300 ng/mLMethadone 300 ng/mLAmphetamine/ 1000 ng/mL Methamphetamine This assay provides an unconfirmed qualitative test result for the clinical management of patients in emergency situations. Chain of custody not maintained. Some yhtw-hyb-xeieyta medications, as well as adulterants, may cause inaccurate results. Clinical correlation should be applied. A more comprehensive drug screen or confirmation of a detected drug may be performed upon request.Motor Vehicle Examiner ID - LITOOperator ID - LITOOperator ID - LITOOperator ID - LITOOperator ID - LITOOperator ID - LITOOperator ID - MOHINDER Lab Interpretation Abnormal (test code = 48161-9) [facility], [id number] 11:49:39 Test Item Value Reference Range Interpretation Comments Barbiturate Screen Negative Negative (test code = 04134-4) Benzodiazepine Screen Negative Negative (test code = 02998-3) Cocaine (Metab.) Negative Negative Screen (test code = 3397-7) Opiate Screen (test Negative Negative code = 87016-7) Cannabinoid Screen Positive Negative A (test code = 97708-2) Amph/Methamph Screen Negative Negative (test code = 93156-1) Phencyclidine Screen Negative Negative (test code = 49486-3) pH, UA (test code = 6.0 5.0-8.0 5803-2) LEXA (test code = LEXA) DRUG CUTOFF CONC.Cocaine 300 ng/mL Cannabinoid 50 ng/mLBenzodiazepine 200 ng/mLBarbiturate 200 ng/mLPhencyclidine 25 ng/mLOpiate 300 ng/mLMethadone 300 ng/mLAmphetamine/ 1000 ng/mL Methamphetamine This assay provides an unconfirmed qualitative test result for the clinical management of patients in emergency situations. Chain of custody not maintained. Some gtqj-srp-pugdkiw medications, as well as adulterants, may cause inaccurate results. Clinical correlation should be applied. A more comprehensive drug screen or confirmation of a detected drug may be performed upon request.Motor Vehicle Examiner ID - LITOOperator ID - LITOOperator ID - LITOOperator ID - LITOOperator ID - LITOOperator ID - LITOOperator ID - MOHINDER Lab Interpretation Abnormal (test code = 06079-4) [facility] California[facility]EN, [id number] 11:49:39 Test Item Value Reference Range Interpretation Comments BARBITURATE URINE (BEAKER) (test Negative Negative code = 725) BENZODIAZEPINE SCREEN URINE (BEAKER) Negative Negative (test code = 726) COCAINE (METAB.) SCREEN (BEAKER) Negative Negative (test code = 1164) OPIATE SCREEN URINE (BEAKER) (test Negative Negative code = 734) CANNABINOID SCREEN URINE (BEAKER) Positive Negative A (test code = 727) AMPH/METHAMPH SCREEN (BEAKER) (test Negative Negative code = 1438) PHENCYCLIDINE SCREEN URINE (BEAKER) Negative Negative (test code = 608) PH UA (BEAKER) (test code = 467) 6.0 5.0-8.0 DRUG CUTOFF CONC.Cocaine 300 ng/mL Cannabinoid 50 ng/mLBenzodiazepine 200 ng/mLBarbiturate 200 ng/mLPhencyclidine 25 ng/mLOpiate 300 ng/mLMethadone 300 ng/mLAmphetamine/ 1000 ng/mL MethamphetamineThis assay provides an unconfirmed qualitative test result for the clinical management of patients in emergency situations. Chain of custody not maintained. Some vjgz-yql-tkcuecc medications, as well as adulterants, may cause inaccurate results. Clinical correlation should be applied. A more comprehensive drug screen or confirmation of a detected drug may be performed upon request.Motor Vehicle Examiner ID - LITOOperator ID - LITOOperator ID - LITOOperator ID - LITOOperator ID - LITOOperator ID - LITOOperator ID - LITOUrinalysis w/Microscopic + Reflex to [id number] 11:48:53 Test Item Value Reference Range Interpretation Comments Color, UA (test code = Yellow 5778-6) Clarity, UA (test code Hazy = 5767-9) Specific [place], UA 1.025 1.001-1.035 (test code = 5811-5) pH, UA (test code = 6.0 5.0-8.0 5803-2) Protein, UA (test code Trace Negative A = 71699-5) Glucose, UA (test code Negative Negative = 365) Ketones, UA (test code Negative Negative = 2514-8) Bilirubin, UA (test Negative Negative code = 44636-3) Blood, UA (test code = Large Negative A 87722-7) Nitrite, UA (test code Negative Negative = 5802-4) Leukocytes, UA (test Negative Negative code = 5799-2) Urobilinogen, UA (test 0.2 mg/dL 0.2-1.0 code = 52506-6) Bacteria, UA (test code Occasional = 02591-6) Mucus (test code = Few 8247-9) RBC, UA (test code = 50-100 See_Comment [Autom ated message] 799-7) The system [employer] generated this result transmit abdias reference range : /HPF. The refer ence range was not u sed to interpret th is result as normal/abnormal . WBC, UA (test code = <5 See_Comment [Autom ated message] 50401-4) The system [employer] generated this result transmit abdias reference range : /HPF. The refer ence range was not u sed to interpret th is result as normal/abnormal . SQUAMOUS EPITHELIAL 5-10 See_Comment [Automa abdias message] (test code = 98875-9) The sy stem which generated this result transmit abdias reference range : /HPF. The refer ence range was not u sed to interpret th is result as normal/abnormal . Specimen Source (test code = 2795) Lab Interpretation Abnormal (test code = 15304-1) [facility] California[facility]inal[facility] w/Microscopic + Reflex to Culture 2021-06-20 11:48:53 Test Item Value Reference Range Interpretation Comments Color, UA (test code = Yellow 5778-6) Clarity, UA (test code Hazy = 5767-9) Specific [place], UA 1.025 1.001-1.035 (test code = 5811-5) pH, UA (test code = 6.0 5.0-8.0 5803-2) Protein, UA (test code Trace Negative A = 49955-8) Glucose, UA (test code Negative Negative = 365) Ketones, UA (test code Negative Negative = 2514-8) Bilirubin, UA (test Negative Negative code = 05159-3) Blood, UA (test code = Large Negative A 66568-5) Nitrite, UA (test code Negative Negative = 5802-4) Leukocytes, UA (test Negative Negative code = 5799-2) Urobilinogen, UA (test 0.2 mg/dL 0.2-1.0 code = 74531-6) Bacteria, UA (test code Occasional = 77609-1) Mucus (test code = Few 8247-9) RBC, UA (test code = 50-100 See_Comment [Autom ated message] 799-7) The system [employer] generated this result transmit abdias reference range : /HPF. The refer ence range was not u sed to interpret th is result as normal/abnormal . WBC, UA (test code = <5 See_Comment [Autom ated message] 28151-0) The system [employer] generated this result transmit abdias reference range : /HPF. The refer ence range was not u sed to interpret th is result as normal/abnormal . SQUAMOUS EPITHELIAL 5-10 See_Comment [Automa abdias message] (test code = 79810-4) The sy stem which generated this result transmit abdias reference range : /HPF. The refer ence range was not u sed to interpret th is result as normal/abnormal . Specimen Source (test code = 2795) Lab Interpretation Abnormal (test code = 72362-7) [facility] California[facility] W/ REFLEX URINE [id number] 11:48:53 Test Item Value Reference Range Interpretation Comments COLOR (BEAKER) (test code = 470) Yellow CLARITY (BEAKER) (test code = Hazy 469) SPECIFIC GRAVITY UA (BEAKER) 1.025 1.001-1.035 (test code = 468) PH UA (BEAKER) (test code = 467) 6.0 5.0-8.0 PROTEIN UA (BEAKER) (test code = Trace Negative A 464) GLUCOSE UA (BEAKER) (test code = Negative Negative 365) KETONES UA (BEAKER) (test code = Negative Negative 371) BILIRUBIN UA (BEAKER) (test code Negative Negative = 462) BLOOD UA (BEAKER) (test code = Large Negative A 461) NITRITE UA (BEAKER) (test code = Negative Negative 465) LEUKOCYTE ESTERASE UA (BEAKER) Negative Negative (test code = 466) UROBILINOGEN UA (BEAKER) (test 0.2 mg/dL 0.2-1.0 code = 463) BACTERIA (BEAKER) (test code = Occasional 517) MUCUS (BEAKER) (test code = 1574) Few RBC UA-MANUAL (BEAKER) (test code 50-100 /HPF = 1659) WBC UA-MANUAL (BEAKER) (test code <5 /HPF = 1661) SQUAMOUS EPITHELIAL MANUAL 5-10 /HPF (BEAKER) (test code = 1663) SOURCE(BEAKER) (test code = 2795) [id number] 11:45:25 Test Item Value Reference Range Interpretation Comments Lipase (test code = 26 U/L 6-51 3040-3) LEXA (test code = LEXA) Motor Vehicle Examiner ID - LITOOperator ID - LITOOperator ID - LITOOperator ID - MOHINDER Lab Interpretation (test Normal code = 07221-5) [facility] California[facility]2021-[facility]-10 11:45:25 Test Item Value Reference Range Interpretation Comments Lipase (test code = 26 U/L 3040-3) LEXA (test code = LEXA) Motor Vehicle Examiner ID - LITOOperator ID - LITOOperator ID - LITOOperator ID - MOHINDER Lab Interpretation (test Normal code = 68801-9) [facility] California[facility]2021-[facility]-10 11:45:25 Test Item Value Reference Range Interpretation Comments LIPASE (BEAKER) (test code = 749) 26 U/L 51 Motor Vehicle Examiner ID - LITOOperator ID - LITOOperator ID - LITOOperator ID - MOHINDER Comprehensive metabolic [id number] 11:44:44 Test Item Value Reference Range Interpretation Comments Protein, Total 7.3 See_Comment [Automated (test code = message] The 1095-2) system which generated this result transmitted reference range : 6.0 - 8.5 gm/dL . The reference range was not used to interpr et this result as normal/abnormal . Albumin (test code 3.8 g/dL 3.5-5.0 = 82939-9) Alkaline 41 U/L 30-115 Phosphatase (test code = 6768-6) Total Bilirubin 0.3 mg/dL 0.1-1.2 (test code = 1975-2) Sodium (test code 140 meq/L 135-148 = 2951-2) Potassium (test 4.6 meq/L 3.6-5.5 code = 2823-3) Chloride (test 104 meq/L 98-106 code = 2075-0) CO2 (test code = 27 meq/L -2027-9) BUN (test code = 11 mg/dL 06-05 3094-0) Creatinine (test 0.88 mg/dL 0.50-1.20 code = 2160-0) Glucose (test code 92 mg/dL 70-110 = 2345-7) Calcium (test code 8.6 mg/dL 8.5-10.5 = 36682-3) AST (test code = 15 U/L -40 1920-8) ALT (test code = 11 U/L 50 1742-6) EGFR (test code = 71 mL/min/1.[place] [address]-2) NOT ACCURATE CREATININE CLEARANCE IN PREDICTING GLOMERULAR FILTRATION RATE . ESTIMATED GFR I S NOT APPLICABLE FOR DIALYSIS PATIENTS. LEXA (test code = Motor Vehicle Examiner ID - ELXA) LITOOperator ID - LITOOperator ID - LITOOperator ID - LITOOperator ID - LITOOperator ID - LITOOperator ID - LITOOperator ID - LITOOperator ID - LITOOperator ID - LITOOperator ID - LITOOperator ID - LITOOperator ID - LITOOperator ID - LITOOperator ID - LITOOperator ID - MOHINDER [facility]Comprehensive metabolic [id number] 11:44:44 Test Item Value Reference Range Interpretation Comments Protein, Total 7.3 See_Comment [Automated (test code = message] The 4425-2) system which generated this result transmitted reference range : 6.0 - 8.5 gm/dL . The reference range was not used to interpr et this result as normal/abnormal . Albumin (test code 3.8 g/dL 3.5-5.0 = 66728-6) Alkaline 41 U/L 30-115 Phosphatase (test code = 6768-6) Total Bilirubin 0.3 mg/dL 0.1-1.2 (test code = 1975-2) Sodium (test code 140 meq/L 135-148 = 2951-2) Potassium (test 4.6 meq/L 3.6-5.5 code = 2823-3) Chloride (test 104 meq/L 98-106 code = 2075-0) CO2 (test code = 27 meq/L 20-29 2027-9) BUN (test code = 11 mg/dL - 3094-0) Creatinine (test 0.88 mg/dL 0.50-1.20 code = 2160-0) Glucose (test code 92 mg/dL 70-110 = 2345-7) Calcium (test code 8.6 mg/dL 8.5-10.5 = 72501-5) AST (test code = 15 U/L 5-40 1920-8) ALT (test code = 11 U/L 5-50 1742-6) EGFR (test code = 71 mL/min/1.[place] [address]-8) NOT ACCURATE CREATININE CLEARANCE IN PREDICTING GLOMERULAR FILTRATION RATE . ESTIMATED GFR I S NOT APPLICABLE FOR DIALYSIS PATIENTS. LEXA (test code = Motor Vehicle Examiner ID - LEXA) LITOOperator ID - LITOOperator ID - LITOOperator ID - LITOOperator ID - LITOOperator ID - LITOOperator ID - LITOOperator ID - LITOOperator ID - LITOOperator ID - LITOOperator ID - LITOOperator ID - LITOOperator ID - LITOOperator ID - LITOOperator ID - LITOOperator ID - MOHINDER [facility] CaliforniaCOMPREHENSIVE METABOLIC [id number] 11:44:44 Test Item Value Reference Range Interpretation Comments TOTAL PROTEIN 7.3 gm/dL 6.0-8.5 (BEAKER) (test code = 770) ALBUMIN (BEAKER) 3.8 g/dL 3.5-5.0 (test code = 1145) ALKALINE PHOSPHATASE 41 U/L 30-115 (BEAKER) (test code = 346) BILIRUBIN TOTAL 0.3 mg/dL 0.1-1.2 (BEAKER) (test code = 377) SODIUM (BEAKER) (test 140 meq/L 135-148 code = 381) POTASSIUM (BEAKER) 4.6 meq/L 3.6-5.5 (test code = 379) CHLORIDE (BEAKER) 104 meq/L 98-106 (test code = 382) CO2 (BEAKER) (test 27 meq/L 20-29 code = 355) BLOOD UREA NITROGEN 11 mg/dL 10-26 (BEAKER) (test code = 354) CREATININE (BEAKER) 0.88 mg/dL 0.50-1.20 (test code = 358) GLUCOSE RANDOM 92 mg/dL 70-110 (BEAKER) (test code = 652) CALCIUM (BEAKER) 8.6 mg/dL 8.5-10.5 (test code = 697) AST (SGOT) (BEAKER) 15 U/L 5-40 (test code = 353) ALT (SGPT) (BEAKER) 11 U/L 5-50 (test code = 347) EGFR (BEAKER) (test 71 mL/min/1.73 ESTIMA ABDIAS GFR IS code = 1092) sq m NOT ACCURATE CREATININE CLEARANCE IN PREDICTING GLOMERULAR FILTRATION RATE . ESTIMATED GFR I S NOT APPLICABLE FOR DIALYSIS PATIEN TS. Motor Vehicle Examiner ID - LITOOperator ID - LITOOperator ID - LITOOperator ID - LITOOperator ID - LITOOperator ID - LITOOperator ID - LITOOperator ID - LITOOperator ID - LITOOperator ID - LITOOperator ID - LITOOperator ID - LITOOperator ID - LITOOperator ID - LITOOperator ID - LITOOperator ID - LITOPregnancy Screen, [id number] 11:36:39 Test Item Value Reference Range Interpretation Comments Preg Test, Ur (test code = 2-1) Negative [facility] CaliforniaPregnancy Screen, [id number] 11:36:39 Test Item Value Reference Range Interpretation Comments Preg Test, Ur (test code = 2111-1) Negative [facility] CaliforniaPREGNANCY SCREEN, [id number] 11:36:39 Test Item Value Reference Range Interpretation Comments TEST URINE (BEAKER) (test Negative code = 583) CBC with platelet count + automated [id number] 11:30:26 Test Item Value Reference Range Interpretation Comments WBC (test code = 6690-2) 6.9 See_Comment [A utomated message] The system [employer] generated this result transmitted ref erence range: 4.0 - 10 .0 K/L. The refe rence range was not u sed to interpret this result as normal/abnor mal. RBC (test code = 789-8) 4.50 See_Comment [Au tomated message] The system [employer] generated this result transmitted ref erence range: 4.00 - 5 .00 M/L. The refe rence range was not u sed to interpret this result as normal/abnor mal. MCHC (test code = 786-4) 33.4 See_Comment [A utomated message] The system [employer] generated this result transmitted ref erence range: 32.0 - 3 6.0 GM/DL. The refe rence range was not u sed to interpret this result as normal/abnor mal. Hematocrit (test code = 42.2 % 36.0-46.0 4544-3) MCV (test code = 787-2) 93.8 fL 82.0-99.0 MCH (test code = 785-6) 31.3 pg 27.0-33.0 RDW (test code = 788-0) 13.2 % 12.0-15.0 Platelets (test code = 286 See_Comment [Aut omated message] 777-3) The system [employer] generated this result transmitted ref erence range: 150 - 43 0 K/CU MM. The referen ce range was not u sed to interpret this result as normal/abnor mal. MPV (test code = 11.6 fL 6.0-11.5 H 15339-4) nRBC (test code = 413) 0 See_Comment [Aut omated message] The system [employer] generated this result transmitted ref erence range: 0 - 0 /1 00 WBC. The refere nce range was not u sed to interpret this result as normal/abnor mal. % Neutros (test code = 46 % 429) % Lymphs (test code = 42 % 430) % Monos (test code = 9 % 431) % Eos (test code = 432) 2 % % Baso (test code = 437) 1 % # Neutros (test code = 3.19 See_Comment [Aut omated message] 670) The system [employer] generated this result transmitted ref erence range: 1.80 - 8 .00 K/L. The refe rence range was not u sed to interpret this result as normal/abnor mal. # Lymphs (test code = 2.88 See_Comment [Auto mated message] 414) The system [employer] generated this result transmitted ref erence range: 1.48 - 4 .50 K/L. The refe rence range was not u sed to interpret this result as normal/abnor mal. # Monos (test code = 0.62 See_Comment [Autom ated message] 415) The system [employer] generated this result transmitted ref erence range: 0.00 - 1 .30 K/L. The refe rence range was not u sed to interpret this result as normal/abnor mal. # Eos (test code = 416) 0.13 See_Comment [Au tomated message] The system [employer] generated this result transmitted ref erence range: 0.00 - 0 .50 K/L. The refe rence range was not u sed to interpret this result as normal/abnor mal. # Baso (test code = 417) 0.04 See_Comment [A utomated message] The system [employer] generated this result transmitted ref erence range: 0.00 - 0 .20 K/L. The refe rence range was not u sed to interpret this result as normal/abnor mal. Immature 1 % 0-0 H Granulocytes-Relative (test code = 2801) Lab Interpretation (test Abnormal code = 28127-9) [facility] with platelet count + automated [id number] 11:30:26 Test Item Value Reference Range Interpretation Comments WBC (test code = 6690-2) 6.9 See_Comment [A utomated message] The system [employer] generated this result transmitted ref erence range: 4.0 - 10 .0 K/L. The refe rence range was not u sed to interpret this result as normal/abnor mal. RBC (test code = 789-8) 4.50 See_Comment [Au tomated message] The system [employer] generated this result transmitted ref erence range: 4.00 - 5 .00 M/L. The refe rence range was not u sed to interpret this result as normal/abnor mal. MCHC (test code = 786-4) 33.4 See_Comment [A utomated message] The system [employer] generated this result transmitted ref erence range: 32.0 - 3 6.0 GM/DL. The refe rence range was not u sed to interpret this result as normal/abnor mal. Hematocrit (test code = 42.2 % 36.0-46.0 4544-3) MCV (test code = 787-2) 93.8 fL 82.0-99.0 MCH (test code = 785-6) 31.3 pg 27.0-33.0 RDW (test code = 788-0) 13.2 % 12.0-15.0 Platelets (test code = 286 See_Comment [Aut omated message] 357-3) The system [employer] generated this result transmitted ref erence range: 150 - 43 0 K/CU MM. The referen ce range was not u sed to interpret this result as normal/abnor mal. MPV (test code = 11.6 fL 6.0-11.5 H 97954-8) nRBC (test code = 413) 0 See_Comment [Aut omated message] The system [employer] generated this result transmitted ref erence range: 0 - 0 /1 00 WBC. The refere nce range was not u sed to interpret this result as normal/abnor mal. % Neutros (test code = 46 % 429) % Lymphs (test code = 42 % 430) % Monos (test code = 9 % 431) % Eos (test code = 432) 2 % % Baso (test code = 437) 1 % # Neutros (test code = 3.19 See_Comment [Aut omated message] 670) The system [employer] generated this result transmitted ref erence range: 1.80 - 8 .00 K/L. The refe rence range was not u sed to interpret this result as normal/abnor mal. # Lymphs (test code = 2.88 See_Comment [Auto mated message] 414) The system [employer] generated this result transmitted ref erence range: 1.48 - 4 .50 K/L. The refe rence range was not u sed to interpret this result as normal/abnor mal. # Monos (test code = 0.62 See_Comment [Autom ated message] 415) The system [employer] generated this result transmitted ref erence range: 0.00 - 1 .30 K/L. The refe rence range was not u sed to interpret this result as normal/abnor mal. # Eos (test code = 416) 0.13 See_Comment [Au tomated message] The system [employer] generated this result transmitted ref erence range: 0.00 - 0 .50 K/L. The refe rence range was not u sed to interpret this result as normal/abnor mal. # Baso (test code = 417) 0.04 See_Comment [A utomated message] The system [employer] generated this result transmitted ref erence range: 0.00 - 0 .20 K/L. The refe rence range was not u sed to interpret this result as normal/abnor mal. Immature 1 % 0-0 H Granulocytes-Relative (test code = 2801) Lab Interpretation (test Abnormal code = 84830-7) [facility] W/PLT COUNT & AUTO [id number] 11:30:26 Test Item Value Reference Range Interpretation Comments WHITE BLOOD CELL COUNT (BEAKER) 6.9 K/ L 4.0-10.0 (test code = 775) RED BLOOD CELL COUNT (BEAKER) 4.50 M/ L 4.00-5.00 (test code = 761) HEMOGLOBIN (BEAKER) (test code = 14.1 GM/DL 12.0-15.5 410) HEMATOCRIT (BEAKER) (test code = 42.2 % 36.0-46.0 411) MEAN CORPUSCULAR VOLUME (BEAKER) 93.8 fL 82.0-99.0 (test code = 753) MEAN CORPUSCULAR HEMOGLOBIN 31.3 pg 27.0-33.0 (BEAKER) (test code = 751) MEAN CORPUSCULAR HEMOGLOBIN CONC 33.4 GM/DL 32.0-36.0 (BEAKER) (test code = 752) RED CELL DISTRIBUTION WIDTH 13.2 % 12.0-15.0 (BEAKER) (test code = 412) PLATELET COUNT (BEAKER) (test 286 K/CU MM 150-430 code = 756) MEAN PLATELET VOLUME (BEAKER) 11.6 fL 6.0-11.5 H (test code = 754) NUCLEATED RED BLOOD CELLS 0 /100 WBC 0-0 (BEAKER) (test code = 413) NEUTROPHILS RELATIVE PERCENT 46 % (BEAKER) (test code = 429) LYMPHOCYTES RELATIVE PERCENT 42 % (BEAKER) (test code = 430) MONOCYTES RELATIVE PERCENT 9 % (BEAKER) (test code = 431) EOSINOPHILS RELATIVE PERCENT 2 % (BEAKER) (test code = 432) BASOPHILS RELATIVE PERCENT 1 % (BEAKER) (test code = 437) NEUTROPHILS ABSOLUTE COUNT 3.19 K/ L 1.80-8.00 (BEAKER) (test code = 670) LYMPHOCYTES ABSOLUTE COUNT 2.88 K/ L 1.48-4.50 (BEAKER) (test code = 414) MONOCYTES ABSOLUTE COUNT (BEAKER) 0.62 K/ L 0.00-1.30 (test code = 415) EOSINOPHILS ABSOLUTE COUNT 0.13 K/ L 0.00-0.50 (BEAKER) (test code = 416) BASOPHILS ABSOLUTE COUNT (BEAKER) 0.04 K/ L 0.00-0.20 (test code = 417) IMMATURE GRANULOCYTES-RELATIVE 1 % 0-0 H PERCENT (BEAKER) (test code = 2801) CT ABDOMEN AND PELVIS WITH CONTRAST*WW*2021-06-19 15:52:04 [facility] : 1980 Sex: FEXAMINATION:CT ABDOMEN AND PELVIS WITH CONTRAST*WW*CLINICAL INDICATION:Female, 40 years old with Abdominal painTECHNIQUE: Thin section axial post-contrast contiguous images were obtained through the abdomen and pelvis followed by coronal and sagittal multiplanar reformations.One or more of the following dose reduction techniques were used: Automated exposure control, adjustment of the mA and/or kV according to patient size, and/or iterative reconstruction. COMPARISON: 11/28/2020FINDINGS:Lower Chest: Visualized lungbases are clear. Heart is normal in size. No pericardial or pleural effusion.Liver: Normal in size and contour. No focal lesions. Bile ducts are of normal caliber.Gallbladder: Surgically absent.Pancreas: Normal appearance without focal lesion.Spleen: Normal in size and contour.Adrenals: Normal configuration.Kidneys and ureters: Multiple punctate, nonobstructing bilateral renal calculi remain. There is no ureteral calculus or hydronephrosis.Bladder/Reproductive Organs: Normal in appearance. Unremarkable reproductive organs. Trace free fluid present within the dependent pelvis.Bowel: There is mild fluid dilatation of loops of mid to distal small bowel. There is no wall thickening or inflammation. Appendix is surgically absent. No free air Lymph nodes: There are no pathologically enlarged abdominopelvic lymph nodes.Retroperitoneum: No mass or hemorrhage. Abdominal aortic atherosclerosis without aneurysm.Abdominal wall: No hernia or mass.Bones: Degenerative changes noted throughout the spine.IMPRESSION:1. Mild fluid dilatation of multiple loops of mid to distal small bowel may reflect ileus or mild enteritis.2. Several small, nonobstructing bilateral renal calculi.3. Otherwise, no acute abnormality.Electronically signed by: Elder Elias MD 06/19/2021 3:52 PM [facility] [id number] METABOLIC HARRISON *WW* 2021-06-19 15:01:00 Test Item Value Reference Range Interpretation Comments GLUCOSE (test code 77 mg/dL 75-100 = 06D) SODIUM (test code 138 mmol/L 136-145 = 01A) POTASSIUM (test 3.6 mmol/L 3.6-5.1 code = 01B) CHLORIDE (test 104 mmol/L 98-107 code = 04A) CO2 (test code = 28 mmol/L 20-31 02A) ANION GAP (test 9.6 mmol/L code = ANG) BUN (test code = 9 mg/dL 9-23 05D) CREATININE (test 0.8 mg/dL 0.6-1.0 code = 03E) GFR (test code = 91 See_Comment [Automated GFR) mL/min/1.73m\\S\\2 message] Th e system which generated this result transmit abdias reference range : >=90. The reference range was not used to interpret this result as normal/abnormal . GFR 106 See_Comment [Automated [place] (test mL/min/1.73m\\S\\2 message] The code = GFRAA) system which generated this result transmit abdias reference range : >=90. The reference range was not used to interpret this result as normal/abnormal . EGFR (test code = eGFR BY EGFR) CKD-EPI CALCULATION IS NOT RECOMMENDED FOR PATIENTS UNDER 18 YEARS OF AGE. BUN/CREA (test 11 12-20 L code = BCR) CALCIUM (test code 8.6 mg/dL 8.3-10.6 = 09D) BILI TOTAL (test 0.2 mg/dL 0.2-1.0 code = 11A) PROTEIN (test code 7.7 g/dL 5.7-8.2 = 07D) ALBUMIN (test code 4.6 g/dL 3.2-4.8 = 08D) GLOBULIN (test 3.1 g/dL 1.5-3.8 code = GLB) ALB/GLOB (test 1.5 1.0-2.6 code = AGRR) ALK PHOS (test 54 IU/L 46-116 code = 35A) AST (test code = 18 IU/L See_Comment [Automated 30A) message] The system which generated this result transmit abdisa reference range : <=33. The reference range was not used to interpret this result as normal/abnormal . ALT (test code = 17 IU/L 10-49 31A) AMYLASE AND LIPASE 2021-06-19 15:01:00 Test Item Value Reference Range Interpretation Comments AMYLASE (test code = 10A) 59 U/L 28-100 LIPASE (test code = 60A) 27 IU/L 12-53 SARS-CoV (RAPID ANTIGEN) WW2021-06-19 14:36:00 Test Item Value Reference Range Interpretation Comments SARS-CoV (ANTIGEN) NEGATIVE NEGATIVE (test code = COVAG) COVID AG (test This test has been code = COVAGC) marketed under the FDA Emergency Use Authorization (EUA) to meet challenges of the COVID-19 pandemic. The validation standards normally enforced by the FDA and the [employer] (CAP) are more stringent than those required for this test. Therefore, the result should be interpreted with caution and close attention to other clinical and epidemiological data SERUM MONOCLONAL 2021-06-19 14:31:00 Test Item Value Reference Range Interpretation Comments PREG SRM (test code = PGS) NEGATIVE NEGATIVE URINALYSIS 2021-06-19 14:23:00 Test Item Value Reference Range Interpretation Comments COLOR (test code = COLU) YELLOW YELLOW CLARITY (test code = CLA) CLEAR CLEAR GLUCOSE UR (test code = UA GLUCOSE) NEGATIVE NEGATIVE BILI UR (test code = BILE) NEGATIVE NEGATIVE KETONES UR (test code = ZULMA) NEGATIVE NEGATIVE SP GRAVITY (test code = SPGR) 1.025 1.005-1.030 PH UR (test code = PH) 6.5 4.5-8.0 PROTEIN UR (test code = PU) NEGATIVE NEGATIVE UROBIL UR (test code = UROQ) 0.2 EU/dL 0.2-1.0 NITRITE UR (test code = NITRITE) NEGATIVE NEGATIVE BLOOD UR (test code = UA BLOOD) NEGATIVE NEGATIVE LEUK ES UR (test code = LEUK) NEGATIVE NEGATIVE AUAM (test code = WAUAM) NO NO CBC (INCLUDES AUTOMATED DIFFERENTIAL)*[id number] 14:12:00 Test Item Value Reference Range Interpretation Comments WBC (test code = WBC) 10.3 10\\S\\3/uL 4.5-11.0 RBC (test code = RBC) 4.73 10\\S\\6/uL 4.30-5.70 HGB (test code = HBG) 15.0 g/dL 12.0-15.5 HCT (test code = HCT) 44.2 % 35.0-44.0 H MCV (test code = MCV) 93.4 fL 81.0-99.0 MCH (test code = MCH) 31.7 pg 27.0-31.0 H MCHC (test code = MCHC) 33.9 g/dL 32.0-36.0 RDW (test code = RDW) 13.0 % 11.5-14.5 PLT (test code = PLT) 326 10\\S\\3/uL 130-400 MPV (test code = MPV) 11.9 fL 9.4-12.4 NEUTROP # (test code = NE#) 4.3 10\\S\\3/uL 1.6-8.0 LYMPH # (test code = LY#) 4.9 10\\S\\3/uL 1.1-3.5 H MONOCYTE # (test code = MO#) 0.8 10\\S\\3/uL 0.0-1.1 EOSINOPH # (test code = EO#) 0.2 10\\S\\3/uL 0.0-0.7 BASOPHIL # (test code = BA#) 0.1 10\\S\\3/uL 0.0-0.3 IG # (test code = IG#) 0.05 10\\S\\3/uL 0.00-0.06 NRBC # (test code = NRBC#) 0.00 10\\S\\3/uL 0.00-0.01 NEUTROPH % (test code = NE%) 41.8 % 35.0-73.0 LYMPH % (test code = LY%) 47.8 % 20.0-55.0 MONO % (test code = MO%) 7.6 % 2.5-10.0 EOSINOPH % (test code = EO%) 1.8 % 0.0-5.0 BASOPHIL % (test code = BA%) 0.5 % 0.0-2.0 IG % (test code = IG%) 0.5 % 0.0-0.8 NRBC% (test code = NRBC%) 0.0 % 0.0-0.2 MANDIFF (test code = WMDIFF) NO NO RBC MORPH (test code = NORMAL WRBCMOR) XR CHEST 2 [id number] 14:30:47 [facility] : 1980 Sex: FExam: Chest x-ray 2 viewsHISTORY: URICOMPARISON: 07/11/2020Location: [id number]:The heart size is normal and lung gonzalez are clear. Osseous structures are intact.IMPRESSION:1. Normal chest.Electronically signed by: Darin Ribeiro MD 06/15/2021 2:30 PM CDT 12 [id number] 01:30:20 Test Item Value Reference Range Interpretation Comments Ventricular rate (test code = 253) Atrial rate (test code = 255) KS interval (test code = 266) QRSD interval (test code = 260) QT interval (test code = 264) QTC interval (test code = 265) P axis 1 (test code = 267) QRS axis 1 (test code = 268) T wave axis (test code = 270) EKG impression (test Normal sinus code = 273) rhythm-Normal ECG-In automated comparison with ECG of 30-NOV-2020 14:19,-No significant change was found- [address]2021-07-02 01:30:20 Test Item Value Reference Range Interpretation Comments Ventricular rate (test code = 253) Atrial rate (test code = 255) KS interval (test code = 266) QRSD interval (test code = 260) QT interval (test code = 264) QTC interval (test code = 265) P axis 1 (test code = 267) QRS axis 1 (test code = 268) T wave axis (test code = 270) EKG impression (test Normal sinus code = 273) rhythm-Normal ECG-In automated comparison with ECG of 30-NOV-2020 14:19,-No significant change was found- [address]2021-07-02 01:30:20 Test Item Value Reference Range Interpretation Comments Ventricular rate (test code = 253) Atrial rate (test code = 255) KS interval (test code = 266) QRSD interval (test code = 260) QT interval (test code = 264) QTC interval (test code = 265) P axis 1 (test code = 267) QRS axis 1 (test code = 268) T wave axis (test code = 270) EKG impression (test Normal sinus code = 273) rhythm-Normal ECG-In automated comparison with ECG of 30-NOV-2020 14:19,-No significant change was found- [facility]2021-06-30 20:37:47 Test Item Value Reference Range Interpretation Comments Urine culture (test SEE COMMENT Bacteriu woody screen code = 2765788) negative. [facility] [id number] 20:37:47 Test Item Value Reference Range Interpretation Comments Urine culture (test SEE COMMENT Bacteriu woody screen code = 5674519) negative. [facility] [id number] 20:37:47 Test Item Value Reference Range Interpretation Comments Urine culture (test code = SEE COMMENT [id number]) [facility] Abdomen Pelvis W [id number] 20:24:46EXAMINATION: CT ABDOMEN PELVIS W CONTRAST CLINICAL HISTORY: 40 yearsFemale epigastric abd pain h o pancreatitis TECHNIQUE: Multidetector computed axial tomography of the abdomen and pelvis was performed after the uncomplicated intravenous administration of IV contrast utilizing automated exposure control and/or iterative reconstruction technique to decrease radiation dose. Coronal and sagittal reformatted images created by a dedicated registered vascular technologist (rvt) at the CT scanner were also submitted for interpretation. COMPARISON: November 30, 2020. FINDINGS: Lower thorax: No acute airspace disease.Liver: Mild hepatomegaly. Mild decreased attenuation suggestive of fatty infiltration correlation with LFTs as indicated.Biliary system: Cholecystectomy. Prominent common bile duct and intrahepatic biliary ducts, like ly reservoir effect, unchanged compared to the prior exam.Spleen: No splenomegaly.Pancreas: No focalmasses or ductal dilation.Adrenals: No adrenal nodules.Kidneys: Nonobstructive bilateral renal stones. No hydroureteronephrosis. Subcentimeter left renal cystic structure statistically represents a cyst.GI tract: The distal esophagus is patulous with mild thickening which could represent chronic reflux/esophagitis. Appendectomy. Nonobstructive bowel gas pattern.Peritoneum/retroperitoneum: No free airor fluid. No pathologic lymphadenopathy. Vasculature: Abdominal aorta is nonaneurysmal. Incidentallynoted separate origins for the common hepatic and splenic arteries off the aorta.Pelvic organs: The uterus and ovaries are within normal limits. The bladder is decompressed but otherwise unremarkable. No pathologic free fluid.Musculoskeletal: No acute or suspicious osseous finding. IMPRESSION: 1.Mild hepatomegaly, correlation with LFTs as indicated. 2.Status post cholecystectomy and appendectomy.3.Nonobstructive renal stones.4.Other nonacute findings as above. [id number] Interface, Radiology Results Incoming - 02/07/2021 3:27 PM CDT EXAMINATION: CT ABDOMEN PELVIS W CONTRASTCLINICAL HISTORY: 40 yearsFemale epigastric abd pain h o pancreatitisTECHNIQUE: Multidetector computed axial tomography of the abdomen and pelvis was performed after the uncomplicated intravenous administration of IV contrast utilizing automated exposure control and/or iterative reconstruction technique to decrease radiation dose. Coronal and sagittal reformatted images created by a dedicated registered vascular technologist (rvt) at the CT scanner were also submitted for interpretation .COMPARISON: November 30, 2020.FINDINGS: Lower thorax: No acute airspace disease.Liver: Mild hepatomegaly. Mild decreased attenuation suggestive of fatty infiltration correlation with LFTs as indicated.Biliary system: Cholecystectomy. Prominent common bile duct and intrahepatic biliary ducts, likely reservoir effect, unchanged compared to the prior exam.Spleen: No splenomegaly.Pancreas: No focal masses or ductal dilation.Adrenals: No adrenal nodules.Kidneys: Nonobstructive bilateral renal stones. No hydroureteronephrosis. Subcentimeter left renal cystic structure statistically represents a cyst.GI tract: The distal esophagus is patulous with mild thickening which could represent chronic reflux/esophagitis. Appendectomy. Nonobstructive bowel gas pattern.Peritoneum/retroperitoneum: No free air or fluid. No pathologic lymphadenopathy. Vasculature: Abdominal aorta is nonaneurysmal. Incidentally noted separate origins for the common hepatic and splenic arteries off the aorta.Pelvic organs: The uterus and ovaries are within normal limits. The bladder is decompressed but otherwise unremarkable. No pathologic free fluid.Musculoskeletal: No acute or suspicious osseous finding.IMPRESSION: 1.Mild hepatomegaly, correlation with LFTs as indicated. 2.Status post cholecystectomy and appendectomy.3.Nonobstructive renal stones.4.Other nonacute findings as above.[id number] Interpretation - Not an [id number] 17:06:30SKeiko haney PA-C 02/07/2021 8:21 [facility] ED Preliminary Interpretation - Not an OrderPerformed by: Keiko Wright PA-CAuthorized by: Jose Juan Akers MD ECG reviewed by ED Physician inthe absence of a wash oil cooler operator: yes Rate: ECG rate: 64 ECG rate assessment: normal Rhythm: Rhythm: sinus rhythm QRS: QRS intervals: NormalConduction: Conduction: normal ST segments: ST segments: NormalSurgical pathology [id number] 13:48:50 Test Item Value Reference Range Interpretation Comments Case number (test code = [id number]) Surgical pathology See link below for report (test code = PDF Lab Report 2255) Result status (test code This is Final Report = [id number]) [id number] [id number] 13:48:50 Test Item Value Reference Range Interpretation Comments Case number (test code = [id number]) Surgical pathology See link below for report (test code = PDF Lab Report 2253) Result status (test code This is Final Report = [id number]) [facility] [id number] [facility] [id number] 13:48:50 Test Item Value Reference Range Interpretation Comments Case number (test code = [id number]) Surgical pathology See link below for report (test code = PDF Lab Report 2255) Result status (test code This is Final Report = [id number]) for [id number] [facility] RNA [Presence] in Respiratory specimen by JORGE with probe [id number] 22:19:37 Test Item Value Reference Range Interpretation Comments SARS-CoV-2 (COVID-19) RNA Not detected Not-Detected [Presence] in Respiratory specimen by JORGE with probe detection (test code = 44293-7) Whether patient is employed in a healthcare setting (test code = 69302-7) Whether the patient has symptoms related to condition of interest (test code = 45211-1) Patient was hospitalized because of this condition (test code = 31849-2) Whether the patient was admitted to intensive care unit (ICU) for condition of interest (test code = 39625-8) Whether patient resides in a congregate care setting (test code = 20325-4) [facility] [id number] 20:01:45 EXAMINATION: XR ABDOMEN 1 VW CLINICAL HISTORY: Nausea vomiting COMPARISON: None. IMPRESSION: Nonspecific bowel gas pattern. No dilated gas filled loops of bowel. Mildly prominent transverse colon. Surgical clips are seen within the right upper quadrant of the abdomen likely consistent with prior cholec ystectomy. The bones of the abdomen and pelvis are unremarkable. The lung bases are clear. [facility]-[id number] Interface, Radiology Results - 11/30/2020 3:04 PM CDT EXAMINATION: XR ABDOMEN 1 VWCLINICAL HISTORY: Nausea vomitingCOMPARISON: None.IMPRESSION:Nonspecific bowel gas pattern. No dilated gas filled loops of bowel. Mildly prominent transverse colon.Surgical clips are seen within the right upper quadrant of the abdomen likely consistent with prior cholecystectomy.The bones of the abdomen and pelvis are unremarkable.The lung bases are clear.[facility]-[id number] HospitalXR Chest 1 Vw [id number] 20:01:11EXAMINATION: XR CHEST 1 PORTABLE CLINICAL HISTORY: ED patient COMPARISON: Single chest from 01/15/2013 IMPRESSION: An AP radiograph of the chest was submitted for interpretation. The lungs are clear. The mediastinal contours and cardiac silhouette are unchanged and unremarkable. The bones are unremark able. [id number] Interface, Radiology Results Incoming - 11/30/2020 3:04 PM CDT EXAMINATION: XR CHEST 1 PORTABLECLINICAL HISTORY: EDpatientCOMPARISON: Single chest from 01/15/2013IMPRESSION:An AP radiograph of the chest was submitted for interpretation.The lungs are clear.The mediastinal contours and cardiac silhouette are unchanged and unremarkable.The bones are unremarkable. [id number] HospitalAMYLASE AND LIPASE 2020-11-30 06:05:00 Test Item Value Reference Range Interpretation Comments AMYLASE (test code = 10A) 64 U/L 28-100 LIPASE (test code = 60A) 223 IU/L 73-393 COMPREHENSIVE METABOLIC HARRISON 2020-11-30 06:05:00 Test Item Value Reference Range Interpretation Comments GLUCOSE (test code 84 mg/dL 75-100 = 06D) SODIUM (test code 138 mmol/L 136-145 = 01A) POTASSIUM (test 3.8 mmol/L 3.6-5.1 code = 01B) CHLORIDE (test 105 mmol/L 98-107 code = 04A) CO2 (test code = 28 mmol/L 22-32 02A) ANION GAP (test 8.8 mmol/L code = ANG) BUN (test code = 6 mg/dL 7-18 L 05D) CREATININE (test 0.8 mg/dL 0.4-1.1 code = 03E) GFR (test code = 99 See_Comment [Automated GFR) mL/min/1.73m\\S\\2 message] Th e system which generated this result transmit abdias reference range : >=90. The reference range was not used to interpret this result as normal/abnormal . GFR 115 See_Comment [Automated [place] (test mL/min/1.73m\\S\\2 message] The code = GFRAA) system which generated this result transmit abdias reference range : >=90. The reference range was not used to interpret this result as normal/abnormal . EGFR (test code = eGFR BY EGFR) CKD-EPI CALCULATION IS NOT RECOMMENDED FOR PATIENTS UNDER 18 YEARS OF AGE. BUN/CREA (test 8 12-20 L code = BCR) CALCIUM (test code 7.5 mg/dL 8.3-9.5 L = 09D) BILI TOTAL (test 0.3 mg/dL 0.2-1.0 code = 11A) PROTEIN (test code 6.3 g/dL 6.4-8.2 L = 07D) ALBUMIN (test code 3.0 g/dL 3.5-4.8 L = 08D) GLOBULIN (test 3.4 g/dL 1.5-3.8 code = GLB) ALB/GLOB (test 0.9 1.0-2.6 L code = AGRR) ALK PHOS (test 59 IU/L 42-121 code = 35A) AST (test code = 103 IU/L See_Comment H [Automated 30A) message] The system which generated this result transmit abdias reference range : <=42. The reference range was not used to interpret this result as normal/abnormal . ALT (test code = 115 IU/L See_Comment H [Automated 31A) message] The system which generated this result transmit abdias reference range : <=78. The reference range was not used to interpret this result as normal/abnormal . LIPASE SERUM WW2020-11-30 06:00:00 Test Item Value Reference Range Interpretation Comments LIPASE (test code = 60A) 223 IU/L 73-393 CBC (INCLUDES AUTOMATED DIFFERENTIAL)*[id number] 05:53:00 Test Item Value Reference Range Interpretation Comments WBC (test code = WBC) 9.9 10\\S\\3/uL 4.5-11.0 RBC (test code = RBC) 4.45 10\\S\\6/uL 4.30-5.70 HGB (test code = HBG) 13.6 g/dL 12.0-15.5 HCT (test code = HCT) 40.3 % 35.0-44.0 MCV (test code = MCV) 90.6 fL 81.0-99.0 MCH (test code = MCH) 30.6 pg 27.0-31.0 MCHC (test code = MCHC) 33.7 g/dL 32.0-36.0 RDW (test code = RDW) 13.7 % 11.5-14.5 PLT (test code = PLT) 260 10\\S\\3/uL 130-400 MPV (test code = MPV) 11.9 fL 9.4-12.4 NEUTROP # (test code = NE#) 4.6 10\\S\\3/uL 1.6-8.0 LYMPH # (test code = LY#) 4.2 10\\S\\3/uL 1.1-3.5 H MONOCYTE # (test code = MO#) 0.9 10\\S\\3/uL 0.0-1.1 EOSINOPH # (test code = EO#) 0.2 10\\S\\3/uL 0.0-0.7 BASOPHIL # (test code = BA#) 0.0 10\\S\\3/uL 0.0-0.3 IG # (test code = IG#) 0.05 10\\S\\3/uL 0.00-0.06 NRBC # (test code = NRBC#) 0.00 10\\S\\3/uL 0.00-0.01 NEUTROPH % (test code = NE%) 46.0 % 35.0-73.0 LYMPH % (test code = LY%) 41.9 % 20.0-55.0 MONO % (test code = MO%) 9.1 % 2.5-10.0 EOSINOPH % (test code = EO%) 2.1 % 0.0-5.0 BASOPHIL % (test code = BA%) 0.4 % 0.0-2.0 IG % (test code = IG%) 0.5 % 0.0-0.8 NRBC% (test code = NRBC%) 0.0 % 0.0-0.2 MANDIFF (test code = WMDIFF) NO NO RBC MORPH (test code = NORMAL WRBCMOR) LIPASE SERUM WW2020-11-29 05:49:00 Test Item Value Reference Range Interpretation Comments LIPASE (test code = 60A) 1455 IU/L 73-393 H CARDIAC PROFILE *WW*2020-11-29 05:42:00 Test Item Value Reference Range Interpretation Comments TROPONIN I (test code = A84) <0.015 ng/mL 0.000-0.045 BASIC METABOLIC PANEL 2020-11-29 05:38:00 Test Item Value Reference Range Interpretation Comments GLUCOSE (test code 108 mg/dL 75-100 H = 06D) SODIUM (test code 138 mmol/L 136-145 = 01A) POTASSIUM (test 3.6 mmol/L 3.6-5.1 code = 01B) CHLORIDE (test 106 mmol/L 98-107 code = 04A) CO2 (test code = 28 mmol/L 22-32 02A) ANION GAP (test 7.6 mmol/L code = ANG) BUN (test code = 11 mg/dL 7-18 05D) CREATININE (test 0.8 mg/dL 0.4-1.1 code = 03E) GFR (test code = 89 See_Comment L [Automated GFR) mL/min/1.73m\\S\\2 message] Th e system which generated this result transmit abdias reference range : >=90. The reference range was not used to interpret this result as normal/abnormal . GFR 103 See_Comment [Automated [place] (test mL/min/1.73m\\S\\2 message] The code = GFRAA) system which generated this result transmit abdias reference range : >=90. The reference range was not used to interpret this result as normal/abnormal . EGFR (test code = eGFR BY EGFR) CKD-EPI CALCULATION IS NOT RECOMMENDED FOR PATIENTS UNDER 18 YEARS OF AGE. BUN/CREA (test 13 12-20 code = BCR) CALCIUM (test code 7.6 mg/dL 8.3-9.5 L = 09D) CBC (INCLUDES AUTOMATED DIFFERENTIAL)*[id number] 05:21:00 Test Item Value Reference Range Interpretation Comments WBC (test code = WBC) 12.5 10\\S\\3/uL 4.5-11.0 H RBC (test code = RBC) 4.26 10\\S\\6/uL 4.30-5.70 L HGB (test code = HBG) 13.0 g/dL 12.0-15.5 HCT (test code = HCT) 39.8 % 35.0-44.0 MCV (test code = MCV) 93.4 fL 81.0-99.0 MCH (test code = MCH) 30.5 pg 27.0-31.0 MCHC (test code = MCHC) 32.7 g/dL 32.0-36.0 RDW (test code = RDW) 14.0 % 11.5-14.5 PLT (test code = PLT) 250 10\\S\\3/uL 130-400 MPV (test code = MPV) 11.6 fL 9.4-12.4 NEUTROP # (test code = NE#) 6.6 10\\S\\3/uL 1.6-8.0 LYMPH # (test code = LY#) 4.5 10\\S\\3/uL 1.1-3.5 H MONOCYTE # (test code = MO#) 1.2 10\\S\\3/uL 0.0-1.1 H EOSINOPH # (test code = EO#) 0.1 10\\S\\3/uL 0.0-0.7 BASOPHIL # (test code = BA#) 0.0 10\\S\\3/uL 0.0-0.3 IG # (test code = IG#) 0.08 10\\S\\3/uL 0.00-0.06 H NRBC # (test code = NRBC#) 0.00 10\\S\\3/uL 0.00-0.01 NEUTROPH % (test code = NE%) 52.9 % 35.0-73.0 LYMPH % (test code = LY%) 35.9 % 20.0-55.0 MONO % (test code = MO%) 9.8 % 2.5-10.0 EOSINOPH % (test code = EO%) 0.5 % 0.0-5.0 BASOPHIL % (test code = BA%) 0.3 % 0.0-2.0 IG % (test code = IG%) 0.6 % 0.0-0.8 NRBC% (test code = NRBC%) 0.0 % 0.0-0.2 MANDIFF (test code = WMDIFF) NO NO RBC MORPH (test code = NORMAL WRBCMOR) CT ABDOMEN AND PELVIS WITH CONTRAST*WW*2020-11-29 00:55:01 [facility] : 1980 Sex: FCT abdomen and pelvis without contrastLocation Code: [id number] HISTORY: Abdominal painCOMPARISON: NoneTechnique: Helical CT of the abdomen and pelvis was performed without intravenous contrast. Thin section axial, sagittal and coronal images were obtained. One or more of the following dose reduction techniques wereused: Automated exposure control, adjustment of the mA and or KV according to patient size, and/or utilization of iterative reconstruction technique. One or more of the following dose reduction techniques were used: Automated exposure control, adjustment of the mA and or KV according to patient size, and/or utilization of iterative reconstruction technique. DLP: 2354.66 mGy- cm.FINDINGS:The lung basesare clear. Bilateral nonobstructing renal stones identified. No evidence of hydronephrosis or ureteral calculi.The unenhanced liver, spleen, pancreas, and adrenal glands are unremarkable. Previous azra cystectomy.The unopacified loops of bowel demonstrate no focal thickening or dilatation. The appendix is visualized and is normal. There is no free peritoneal air or fluid. The abdominal aorta is normal in caliber and contour. There is no retroperitoneal mass or fluid collection. The urinary bladder is unremarkable. There is no pelvic mass or fluid collection. No evidence of diverticulitis.The bones,skin, and surrounding soft tissues are unremarkable.IMPRESSION: Nonobstructing bilateral nephrolithiasis. Previous cholecystectomy.Electronically signed by: Darin Ribeiro MD 11/29/2020 12:55 AM CDT -EcN (RAPID ANTIGEN) WW2020-11-28 23:52:00 Test Item Value Reference Range Interpretation Comments SARS-CoV (ANTIGEN) NEGATIVE NEGATIVE (test code = COVAG) COVID [employer] (test This test has been code = COVAGC) marketed under the FDA Emergency Use Authorization (EUA) to meet challenges of the COVID-19 pandemic. The validation standards normally enforced by the FDA and the [employer] (CAP) are more stringent than those required for this test. Therefore, the result should be interpreted with caution and close attention to other clinical and epidemiological data AMYLASE AND LIPASE *WW*2020-11-28 22:23:00 Test Item Value Reference Range Interpretation Comments AMYLASE (test code = 10A) 207 U/L 28-100 H LIPASE (test code = 60A) 2533 IU/L 73-393 H COMPREHENSIVE METABOLIC HARRISON *WW*2020-11-28 22:23:00 Test Item Value Reference Range Interpretation Comments GLUCOSE (test code 115 mg/dL 75-100 H = 06D) SODIUM (test code 139 mmol/L 136-145 = 01A) POTASSIUM (test 4.3 mmol/L 3.6-5.1 code = 01B) CHLORIDE (test 105 mmol/L 98-107 code = 04A) CO2 (test code = 26 mmol/L 22-32 02A) ANION GAP (test 12.3 mmol/L code = ANG) BUN (test code = 13 mg/dL 7-18 05D) CREATININE (test 1.0 mg/dL 0.4-1.1 code = 03E) GFR (test code = 67 See_Comment L [Automated GFR) mL/min/1.73m\\S\\2 message] Th e system which generated this result transmit abdias reference range : >=90. The reference range was not used to interpret this result as normal/abnormal . GFR 77 See_Comment L [Automated [place] (test mL/min/1.73m\\S\\2 message] The code = GFRAA) system which generated this result transmit abdias reference range : >=90. The reference range was not used to interpret this result as normal/abnormal . EGFR (test code = eGFR BY EGFR) CKD-EPI CALCULATION IS NOT RECOMMENDED FOR PATIENTS UNDER 18 YEARS OF AGE. BUN/CREA (test 07-30 code = BCR) CALCIUM (test code 8.8 mg/dL 8.3-9.5 = 09D) BILI TOTAL (test 0.3 mg/dL 0.2-1.0 code = 11A) PROTEIN (test code 8.5 g/dL 6.4-8.2 H = 07D) ALBUMIN (test code 4.2 g/dL 3.5-4.8 = 08D) GLOBULIN (test 4.3 g/dL 1.5-3.8 H code = GLB) ALB/GLOB (test 1.0 1.0-2.6 code = AGRR) ALK PHOS (test 60 IU/L 42-121 code = 35A) AST (test code = 28 IU/L See_Comment [Automated 30A) message] The system which generated this result transmit abdias reference range : <=42. The reference range was not used to interpret this result as normal/abnormal . ALT (test code = 25 IU/L See_Comment [Automated 31A) message] The system which generated this result transmit abdias reference range : <=78. The reference range was not used to interpret this result as normal/abnormal . CARDIAC PROFILE *[facility]2020-11-28 22:09:00 Test Item Value Reference Range Interpretation Comments TROPONIN I (test code = A84) <0.015 ng/mL 0.000-0.045 PRO TIME AND PTT *[facility]2020-11-28 22:07:00 Test Item Value Reference Range Interpretation Comments PT (test code = 11.4 s 9.8-13.6 TT) INR (test code = 1.0 INR) INRH (test code = SUGGESTED THERAPEUTIC INRH) RANGE FOR INR: 2.5 - 3.5 For Patients with Prosthetic Valves or Patients with recurrent Thromboembolic Events 2.0 - 3.0 For Most Other Applications PTT (test code = 27.6 s 20.2-38.0 PTT) PTTH (test code = To monitor the PTTH) effectiveness of heparin, we offer the Anti-Xa (Heparin Assay). It can be used for either unfractionated or LMW Heparin. Order Code is ANTI-XA CBC (INCLUDES AUTOMATED DIFFERENTIAL)*[id number] 21:53:00 Test Item Value Reference Range Interpretation Comments WBC (test code = WBC) 14.1 10\\S\\3/uL 4.5-11.0 H RBC (test code = RBC) 4.90 10\\S\\6/uL 4.30-5.70 HGB (test code = HBG) 14.8 g/dL 12.0-15.5 HCT (test code = HCT) 45.8 % 35.0-44.0 H MCV (test code = MCV) 93.5 fL 81.0-99.0 MCH (test code = MCH) 30.2 pg 27.0-31.0 MCHC (test code = MCHC) 32.3 g/dL 32.0-36.0 RDW (test code = RDW) 13.9 % 11.5-14.5 PLT (test code = PLT) 313 10\\S\\3/uL 130-400 MPV (test code = MPV) 11.8 fL 9.4-12.4 NEUTROP # (test code = NE#) 9.3 10\\S\\3/uL 1.6-8.0 H LYMPH # (test code = LY#) 3.6 10\\S\\3/uL 1.1-3.5 H MONOCYTE # (test code = MO#) 1.1 10\\S\\3/uL 0.0-1.1 EOSINOPH # (test code = EO#) 0.0 10\\S\\3/uL 0.0-0.7 BASOPHIL # (test code = BA#) 0.0 10\\S\\3/uL 0.0-0.3 IG # (test code = IG#) 0.07 10\\S\\3/uL 0.00-0.06 H NRBC # (test code = NRBC#) 0.00 10\\S\\3/uL 0.00-0.01 NEUTROPH % (test code = NE%) 65.6 % 35.0-73.0 LYMPH % (test code = LY%) 25.6 % 20.0-55.0 MONO % (test code = MO%) 7.9 % 2.5-10.0 EOSINOPH % (test code = EO%) 0.1 % 0.0-5.0 BASOPHIL % (test code = BA%) 0.3 % 0.0-2.0 IG % (test code = IG%) 0.5 % 0.0-0.8 NRBC% (test code = NRBC%) 0.0 % 0.0-0.2 MANDIFF (test code = WMDIFF) NO NO RBC MORPH (test code = NORMAL WRBCMOR) URINALYSIS 2020-11-28 21:53:00 Test Item Value Reference Range Interpretation Comments COLOR (test code = COLU) YELLOW YELLOW CLARITY (test code = CLA) CLEAR CLEAR GLUCOSE UR (test code = UA GLUCOSE) NEGATIVE NEGATIVE BILI UR (test code = BILE) NEGATIVE NEGATIVE KETONES UR (test code = ZULMA) NEGATIVE NEGATIVE SP GRAVITY (test code = SPGR) >=1.030 1.005-1.030 PH UR (test code = PH) 5.5 4.5-8.0 PROTEIN UR (test code = PU) NEGATIVE NEGATIVE UROBIL UR (test code = UROQ) 0.2 EU/dL 0.2-1.0 NITRITE UR (test code = NITRITE) NEGATIVE NEGATIVE BLOOD UR (test code = UA BLOOD) NEGATIVE NEGATIVE LEUK ES UR (test code = LEUK) NEGATIVE NEGATIVE AUAM (test code = WAUAM) NO NO URINE MONOCLONAL *WW*2020-11-28 21:52:00 Test Item Value Reference Range Interpretation Comments PREG UR (test code = PGU) NEGATIVE NEGATIVE DRUGS OF [id number] 14:41:00 Test Item Value Reference Range Interpretation Comments DRUG SCRN (test code = URINE DRUG HDOA) SCREEN This is an unconfirmed screening result and should not be used for non-medical purposes CANNABINOD (test code POSITIVE NEGATIVE A = 88C) AMPHETAMINE (test code Negative NEGATIVE = 84A) BENZODIAZP (test code Negative NEGATIVE = 86A) BARBITURAT (test code Negative NEGATIVE = 85A) OPIATES (test code = Negative NEGATIVE 92B) COCAINE (test code = Negative NEGATIVE 87A) PHENCYCLID (test code Negative NEGATIVE = 66A) METHADONE (test code = Negative NEGATIVE 64A) DOAH (test code = DOAH.) URINE DRUG SCREEN Cut-off values are as follows: Cannabinoids 50 ng/mL Cocaine 300 ng/mL Amphetamines 1000 ng/mL Phencyclidine 25 ng/mL Benzodiazepines 200 ng.mL Methadone 300 ng/mL Barbiturates 200 ng/mL Opiates 2000 ng/mL URINALYSIS WITH [id number] 14:29:00 Test Item Value Reference Range Interpretation Comments COLOR (test code = COLU) DK YELLOW YELLOW A CLARITY (test code = CLA) CLOUDY CLEAR A GLUCOSE UR (test code = UA GLUCOSE) NEGATIVE NEGATIVE BILI UR (test code = BILE) NEGATIVE NEGATIVE KETONES UR (test code = ZULMA) 1+ NEGATIVE A SP GRAVITY (test code = SPGR) 1.015 1.005-1.030 PH UR (test code = PH) 8.5 4.5-8.0 H PROTEIN UR (test code = PU) 1+ NEGATIVE A UROBIL UR (test code = UROQ) 0.2 EU/dL 0.2-1.0 NITRITE UR (test code = NITRITE) NEGATIVE NEGATIVE BLOOD UR (test code = UA BLOOD) 3+ NEGATIVE A LEUK ES UR (test code = LEUK) TRACE NEGATIVE A WBC UR (test code = UWBC) 4 /HPF 0-5 RBC UR (test code = URBC) 80 /HPF 0-2 H EPITH UR (test code = UEPC) FEW /LPF FEW BACTERIA UR (test code = UBACT) NONE /HPF NONE CAST UR (test code = CAST) /LPF NONE CRYSTAL UR (test code = CRYU) / LPF NONE MUCUS UR (test code = MUC) FEW / HPF NONE A AMORPH UR (test code = MODE) / HPF NONE TRICH UR (test code = UTRICH) /HPF NONE YEAST UR (test code = UY) /HPF NONE SPERM UR (test code = USPERM) /HPF NONE [id number] 10:25:00 Test Item Value Reference Range Interpretation Comments SALICYLATE (test code = 94B) 3.0 mg/dL 2.8-20.0 [id number] 10:11:00 Test Item Value Reference Range Interpretation Comments ACETAMINPH (test code = 94M) <2.0 ug/mL 10.0-30.0 L SARS-CoV (RAPID ANTIGEN)2020-07-11 10:07:00 Test Item Value Reference Range Interpretation Comments SARS-CoV (ANTIGEN) NEGATIVE NEGATIVE (test code = COVAG) COVID AG (test This test has been code = COVAGC) marketed under the FDA Emergency Use Authorization (EUA) to meet challenges of the COVID-19 pandemic. The validation standards normally enforced by the FDA and the [employer] (CAP) are more stringent than those required for this test. Therefore, the result should be interpreted with caution and close attention to other clinical and epidemiological data AMMONIA [id number] 09:47:00 Test Item Value Reference Range Interpretation Comments AMMONIA (test code = 54A) <10 umol/L 11-32 L LIVER [id number] 09:41:00 Test Item Value Reference Range Interpretation Comments BILI TOTAL (test code = 11A) 0.4 mg/dL 0.2-1.0 BILI DIRCT (test code = 12A) 0.1 mg/dL 0.0-0.2 BILI INDIR (test code = BILII) 0.3 mg/dL <=0.8 PROTEIN (test code = 07D) 7.7 g/dL 6.4-8.2 ALBUMIN (test code = 08D) 4.0 g/dL 3.5-4.8 GLOBULIN (test code = GLB) 3.7 g/dL 1.5-3.8 ALB/GLOB (test code = AGRR) 1.1 1.0-2.6 ALK PHOS (test code = 35A) 63 IU/L 42-121 AST (test code = 30A) 13 IU/L <=42 ALT (test code = 31A) 19 IU/L <=78 COMPREHENSIVE METABOLIC [id number] 09:39:00 Test Item Value Reference Range Interpretation Comments GLUCOSE (test code = 185 mg/dL 75-100 H 06D) SODIUM (test code = 140 mmol/L 136-145 01A) POTASSIUM (test code = 3.4 mmol/L 3.6-5.1 L 01B) CHLORIDE (test code = 105 mmol/L 98-107 04A) CO2 (test code = 02A) 23 mmol/L 22-32 ANION GAP (test code = 15.4 mmol/L ANG) BUN (test code = 05D) 8 mg/dL 7-18 CREATININE (test code 1.0 mg/dL 0.4-1.1 = 03E) GFR (test code = GFR) 70 mL/min/1.73m\\S\\2 >=90 L GFR 81 mL/min/1.73m\\S\\2 >=90 L (test code = GFRAA) EGFR (test code = eGFR BY CKD-EPI EGFR) CALCULATION IS NOT RECOMMENDED FOR PATIENTS UNDER 18 YEARS OF AGE. BUN/CREA (test code = 8 12-20 L BCR) CALCIUM (test code = 8.9 mg/dL 8.3-9.5 09D) BILI TOTAL (test code 0.4 mg/dL 0.2-1.0 = 11A) PROTEIN (test code = 7.7 g/dL 6.4-8.2 07D) ALBUMIN (test code = 4.0 g/dL 3.5-4.8 08D) GLOBULIN (test code = 3.7 g/dL 1.5-3.8 GLB) ALB/GLOB (test code = 1.1 1.0-2.6 AGRR) ALK PHOS (test code = 63 IU/L 42-121 35A) AST (test code = 30A) 13 IU/L <=42 ALT (test code = 31A) 19 IU/L <=78 AMYLASE AND [id number] 09:39:00 Test Item Value Reference Range Interpretation Comments AMYLASE (test code = 10A) 36 U/L 28-100 LIPASE (test code = 60A) 84 IU/L 73-393 ALCOHOL BLOOD (ETOH)2020-07-11 09:34:00 Test Item Value Reference Range Interpretation Comments ETOH (test code = HALC) ETHANOL The result is to be used only for medical purposes ALCOHOL (test code = <10 mg/dL <=10 56A) CARDIAC [id number] 09:33:00 Test Item Value Reference Range Interpretation Comments TROPONIN I (test code = A84) <0.015 ng/mL 0.000-0.045 BASIC METABOLIC [id number] 09:30:00 Test Item Value Reference Range Interpretation Comments GLUCOSE (test code = 190 mg/dL 75-100 H 06D) SODIUM (test code = 140 mmol/L 136-145 01A) POTASSIUM (test code = 3.4 mmol/L 3.6-5.1 L 01B) CHLORIDE (test code = 105 mmol/L 98-107 04A) CO2 (test code = 02A) 24 mmol/L 22-32 ANION GAP (test code = 14.4 mmol/L ANG) BUN (test code = 05D) 8 mg/dL 7-18 CREATININE (test code 1.0 mg/dL 0.4-1.1 = 03E) GFR (test code = GFR) 71 mL/min/1.73m\\S\\2 >=90 L GFR 82 mL/min/1.73m\\S\\2 >=90 L (test code = GFRAA) EGFR (test code = eGFR BY CKD-EPI EGFR) CALCULATION IS NOT RECOMMENDED FOR PATIENTS UNDER 18 YEARS OF AGE. BUN/CREA (test code = 8 12-20 L BCR) CALCIUM (test code = 8.9 mg/dL 8.3-9.5 09D) SERUM [id number] 09:28:00 Test Item Value Reference Range Interpretation Comments PREG SRM (test code = PGS) NEGATIVE NEGATIVE CBC (INCLUDES AUTOMATED DIFFERENTIAL)2020-07-11 09:22:00 Test Item Value Reference Range Interpretation Comments WBC (test code = WBC) 8.1 10\\S\\3/uL 4.5-11.0 RBC (test code = RBC) 4.91 10\\S\\6/uL 4.30-5.70 HGB (test code = HBG) 14.8 g/dL 12.0-15.5 HCT (test code = HCT) 44.7 % 35.0-44.0 H MCV (test code = MCV) 91.0 fL 81.0-99.0 MCH (test code = MCH) 30.1 pg 27.0-31.0 MCHC (test code = MCHC) 33.1 g/dL 32.0-36.0 RDW (test code = RDW) 13.4 % 11.5-14.5 PLT (test code = PLT) 296 10\\S\\3/uL 130-400 MPV (test code = MPV) 11.5 fL 9.4-12.4 NEUTROP # (test code = NE#) 5.2 10\\S\\3/uL 1.6-8.0 LYMPH # (test code = LY#) 2.3 10\\S\\3/uL 1.1-3.5 MONOCYTE # (test code = MO#) 0.5 10\\S\\3/uL 0.0-1.1 EOSINOPH # (test code = EO#) 0.1 10\\S\\3/uL 0.0-0.7 BASOPHIL # (test code = BA#) 0.0 10\\S\\3/uL 0.0-0.3 IG # (test code = IG#) 0.03 10\\S\\3/uL 0.00-0.06 NRBC # (test code = NRBC#) 0.00 10\\S\\3/uL 0.00-0.01 NEUTROPH % (test code = NE%) 64.1 % 35.0-73.0 LYMPH % (test code = LY%) 28.3 % 20.0-55.0 MONO % (test code = MO%) 6.2 % 2.5-10.0 EOSINOPH % (test code = EO%) 0.6 % 0.0-5.0 BASOPHIL % (test code = BA%) 0.4 % 0.0-2.0 IG % (test code = IG%) 0.4 % 0.0-0.8 NRBC% (test code = NRBC%) 0.0 % 0.0-0.2 MANDIFF (test code = MDIFF) NO RBC MORPH (test code = RBCMOR) NORMAL - US TRANSVAGINAL NON [id number] 15:15:00 [facility] 1980 Sex: F Patient Name: RHEA SPARKS Unit No: [id number] EXAMS: CPT CODE: [id number] [place] [id number] EXAMINATION: - US TRANSVAGINAL NON OB. LOCATION: B2. HISTORY: ABNORMAL UTERINE BLEEDING. COMPARISON: Pelvic ultrasound dated 07/23/2019. TECHNIQUE: Routine transvaginal pelvic ultrasound was performed. FINDINGS: Transvaginal ultrasound of the pelvis demonstrate the uterus to be normal in size, measuring 9.3 cm in length. The endometrial stripe is within normal limits at 0.8 cm. 0.9 cm well-defined oval echogenicity is seen in the endometrial cavity. Bilateral ovaries are normal in size andappearance. The right ovary measures 3.4 x 2.2 x 2.1 cm. The left ovary measures 2.4 x 1.7 x 2.0 cm. 1.6 cm right ovarian follicular cyst is present. There is color Doppler flow to bilateral ovaries. No free fluid is seen within the pelvis. IMPRESSION: 0.9 cm well-defined oval echogenicity within theendometrial cavity, which may represent an endometrial polyp or focal endometrial hyperplasia. Carcinoma cannot be excluded. Recommend surgical consultation for further evaluation. at 1515 Reported and signed by: Eli Gallo MD CC: Vielka Reno III, MD; RAINA LIND Technologist: Shawn Lopez RDMS; [facility] [place] TV[address] [place] [id number] Transcrpt Date/T m/Trnsp: 06/23/2020 (1515) [id number] Orig Print D/T: S: 06/23/2020 ([id number]) [facility] NAME: RHEA SPARKS [id number] [facility] [address] PHYS: UNDEFINED - Undefined Provider REBA Staley [id number] : 1980 AGE: 39 SEX: F LOC: YOGI PHONE #: [phone] EXAM DATE: 06/23/2020 STATUS: REG CLI FAX #: [phone] RADIOLOGY NO: PAGE 1 Signed ReportCARDIAC PROFILE *WW*2020-06-16 17:51:00 Test Item Value Reference Range Interpretation Comments TROPONIN I (test code = A84) <0.015 ng/mL 0.000-0.045 DRUGS OF ABUSE *WW*2020-06-16 17:51:00 Test Item Value Reference Range Interpretation Comments DRUG SCRN (test code = URINE DRUG HDOA) SCREEN This is an unconfirmed screening result and should not be used for non-medical purposes CANNABINOD (test code POSITIVE NEGATIVE A = 88C) AMPHETAMINE (test code Negative NEGATIVE = 84A) BENZODIAZP (test code Negative NEGATIVE = 86A) BARBITURAT (test code Negative NEGATIVE = 85A) OPIATES (test code = Negative NEGATIVE 92B) COCAINE (test code = Negative NEGATIVE 87A) PHENCYCLID (test code Negative NEGATIVE = 66A) METHADONE (test code = Negative NEGATIVE 64A) DOAH (test code = DOAH.) URINE DRUG SCREEN Cut-off values are as follows: Cannabinoids 50 ng/mL Cocaine 300 ng/mL Amphetamines 1000 ng/mL Phencyclidine 25 ng/mL Benzodiazepines 200 ng.mL Methadone 300 ng/mL Barbiturates 200 ng/mL Opiates 2000 ng/mL COMPREHENSIVE METABOLIC HARRISON *WW*2020-06-16 17:50:00 Test Item Value Reference Range Interpretation Comments GLUCOSE (test code = 105 mg/dL 75-100 H 06D) SODIUM (test code = 139 mmol/L 136-145 01A) POTASSIUM (test code = 3.9 mmol/L 3.6-5.1 01B) CHLORIDE (test code = 108 mmol/L 98-107 H 04A) CO2 (test code = 02A) 26 mmol/L 22-32 ANION GAP (test code = 8.9 mmol/L ANG) BUN (test code = 05D) 14 mg/dL 7-18 CREATININE (test code 1.0 mg/dL 0.4-1.1 = 03E) GFR (test code = GFR) 73 mL/min/1.73m\\S\\2 >=90 L GFR 85 mL/min/1.73m\\S\\2 >=90 L (test code = GFRAA) EGFR (test code = eGFR BY CKD-EPI EGFR) CALCULATION IS NOT RECOMMENDED FOR PATIENTS UNDER 18 YEARS OF AGE. BUN/CREA (test code = 15 12-20 BCR) CALCIUM (test code = 8.5 mg/dL 8.3-9.5 09D) BILI TOTAL (test code 0.2 mg/dL 0.2-1.0 = 11A) PROTEIN (test code = 7.1 g/dL 6.4-8.2 07D) ALBUMIN (test code = 3.4 g/dL 3.5-4.8 L 08D) GLOBULIN (test code = 3.7 g/dL 1.5-3.8 GLB) ALB/GLOB (test code = 0.9 1.0-2.6 L AGRR) ALK PHOS (test code = 61 IU/L 42-121 35A) AST (test code = 30A) 19 IU/L <=42 ALT (test code = 31A) 45 IU/L <=78 AMYLASE AND LIPASE *WW*2020-06-16 17:46:00 Test Item Value Reference Range Interpretation Comments AMYLASE (test code = 10A) 63 U/L 28-100 LIPASE (test code = 60A) 231 IU/L 73-393 URINALYSIS WITH MICRO *WW*2020-06-16 17:42:00 Test Item Value Reference Range Interpretation Comments COLOR (test code = COLU) YELLOW YELLOW CLARITY (test code = CLA) HAZY CLEAR A GLUCOSE UR (test code = UA NEGATIVE NEGATIVE GLUCOSE) BILI UR (test code = BILE) NEGATIVE NEGATIVE KETONES UR (test code = ZULMA) TRACE NEGATIVE A SP GRAVITY (test code = SPGR) >=1.030 1.005-1.030 PH UR (test code = PH) 6.0 4.5-8.0 PROTEIN UR (test code = PU) 1+ NEGATIVE A UROBIL UR (test code = UROQ) 0.2 EU/dL 0.2-1.0 NITRITE UR (test code = NEGATIVE NEGATIVE NITRITE) BLOOD UR (test code = UA BLOOD) 3+ NEGATIVE A LEUK ES UR (test code = LEUK) TRACE NEGATIVE A WBC UR (test code = UWBC) 8 /HPF 0-5 H RBC UR (test code = URBC) 35 /HPF 0-2 H EPITH UR (test code = UEPC) MODERATE /LPF FEW A BACTERIA UR (test code = UBACT) MODERATE /HPF NONE A CAST UR (test code = CAST) /LPF NONE CRYSTAL UR (test code = CRYU) / LPF NONE MUCUS UR (test code = MUC) / HPF NONE AMORPH UR (test code = MODE) / HPF NONE TRICH UR (test code = UTRICH) /HPF NONE YEAST UR (test code = UY) /HPF NONE SPERM UR (test code = USPERM) /HPF NONE CBC (INCLUDES AUTOMATED DIFFERENTIAL)*[id number] 17:36:00 Test Item Value Reference Range Interpretation Comments WBC (test code = WBC) 8.6 10\\S\\3/uL 4.5-11.0 RBC (test code = RBC) 4.45 10\\S\\6/uL 4.30-5.70 HGB (test code = HBG) 13.5 g/dL 12.0-15.5 HCT (test code = HCT) 40.3 % 35.0-44.0 MCV (test code = MCV) 90.6 fL 81.0-99.0 MCH (test code = MCH) 30.3 pg 27.0-31.0 MCHC (test code = MCHC) 33.5 g/dL 32.0-36.0 RDW (test code = RDW) 13.9 % 11.5-14.5 PLT (test code = PLT) 294 10\\S\\3/uL 130-400 MPV (test code = MPV) 10.9 fL 9.4-12.4 NEUTROP # (test code = NE#) 4.3 10\\S\\3/uL 1.6-8.0 LYMPH # (test code = LY#) 3.4 10\\S\\3/uL 1.1-3.5 MONOCYTE # (test code = MO#) 0.6 10\\S\\3/uL 0.0-1.1 EOSINOPH # (test code = EO#) 0.2 10\\S\\3/uL 0.0-0.7 BASOPHIL # (test code = BA#) 0.1 10\\S\\3/uL 0.0-0.3 IG # (test code = IG#) 0.02 10\\S\\3/uL 0.00-0.06 NRBC # (test code = NRBC#) 0.00 10\\S\\3/uL 0.00-0.01 NEUTROPH % (test code = NE%) 50.1 % 35.0-73.0 LYMPH % (test code = LY%) 39.8 % 20.0-55.0 MONO % (test code = MO%) 7.3 % 2.5-10.0 EOSINOPH % (test code = EO%) 2.0 % 0.0-5.0 BASOPHIL % (test code = BA%) 0.6 % 0.0-2.0 IG % (test code = IG%) 0.2 % 0.0-0.8 NRBC% (test code = NRBC%) 0.0 % 0.0-0.2 MANDIFF (test code = WMDIFF) NO NO RBC MORPH (test code = NORMAL WRBCMOR) Panel Description: Vaginitis/Vaginosis, DNA [id number] 19:47:00 Test Item Value Reference Range Interpretation Comments Ann species (test code = Negative Negative 07392-2) Gardnerella vaginalis (test code = Negative Negative 6410-5) Trichomonas vaginalis (test code = Positive Negative A 6568-0) [facility] Description: Vaginitis/Vaginosis, DNA [id number] 19:47:00 Test Item Value Reference Range Interpretation Comments Ann species (test code = Negative Negative 72335-3) Gardnerella vaginalis (test code = Negative Negative 6410-5) Trichomonas vaginalis (test code = Positive Negative A 6568-0) [facility] Description: Vaginitis/Vaginosis, DNA [id number] 19:47:00 Test Item Value Reference Range Interpretation Comments Ann species (test code = Negative Negative 28876-7) Gardnerella vaginalis (test code = Negative Negative 6410-5) Trichomonas vaginalis (test code = Positive Negative A 6568-0) [facility] Description: Vaginitis/Vaginosis, DNA [id number] 19:47:00 Test Item Value Reference Range Interpretation Comments Ann species (test code = Negative Negative 81984-1) Gardnerella vaginalis (test code = Negative Negative 6410-5) Trichomonas vaginalis (test code = Positive Negative A 6568-0) [facility] Description: Vaginitis/Vaginosis, DNA [id number] 19:47:00 Test Item Value Reference Range Interpretation Comments Ann species (test code = Negative Negative 84083-4) Gardnerella vaginalis (test code = Negative Negative 6410-5) Trichomonas vaginalis (test code = Positive Negative A 6568-0) [facility] with platelet count + automated [id number] 17:03:00 Test Item Value Reference Range Interpretation Comments WBC (test code = 6690-2) 11.8 See_Comment H [A utomated message] The system [employer] generated this result transmitted ref erence range: 4.0 - 10 .0 K/L. The refe rence range was not u sed to interpret this result as normal/abnor mal. RBC (test code = 789-8) 4.62 See_Comment [Au tomated message] The system [employer] generated this result transmitted ref erence range: 4.00 - 5 .00 M/L. The refe rence range was not u sed to interpret this result as normal/abnor mal. MCHC (test code = 786-4) 33.0 See_Comment [A utomated message] The system [employer] generated this result transmitted ref erence range: 32.0 - 3 6.0 GM/DL. The refe rence range was not u sed to interpret this result as normal/abnor mal. Hematocrit (test code = 43.0 % 36-46 4544-3) MCV (test code = 787-2) 93.1 fL 82-99 MCH (test code = 785-6) 30.7 pg 27-33 RDW (test code = 788-0) 13.2 % 12-15 Platelets (test code = 165 See_Comment [Aut omated message] 777-3) The system [employer] generated this result transmitted ref erence range: 150 - 43 0 K/CU MM. The referen ce range was not u sed to interpret this result as normal/abnor mal. MPV (test code = 12.3 fL 6-11.5 H 53882-5) nRBC (test code = 413) 0 See_Comment [Aut omated message] The system [employer] generated this result transmitted ref erence range: 0 - 0 /1 00 WBC. The refere nce range was not u sed to interpret this result as normal/abnor mal. % Neutros (test code = 90 % 429) % Lymphs (test code = 9 % 430) % Monos (test code = 1 % 431) % Eos (test code = 432) 0 % % Baso (test code = 437) 0 % # Neutros (test code = 10.68 See_Comment H [Aut omated message] 670) The system [employer] generated this result transmitted ref erence range: 1.80 - 8 .00 K/L. The refe rence range was not u sed to interpret this result as normal/abnor mal. # Lymphs (test code = 1.03 See_Comment L [Auto mated message] 414) The system [employer] generated this result transmitted ref erence range: 1.48 - 4 .50 K/L. The refe rence range was not u sed to interpret this result as normal/abnor mal. # Monos (test code = 0.06 See_Comment [Autom ated message] 415) The system [employer] generated this result transmitted ref erence range: 0.00 - 1 .30 K/L. The refe rence range was not u sed to interpret this result as normal/abnor mal. # Eos (test code = 416) 0.00 See_Comment [Au tomated message] The system [employer] generated this result transmitted ref erence range: 0.00 - 0 .50 K/L. The refe rence range was not u sed to interpret this result as normal/abnor mal. # Baso (test code = 417) 0.02 See_Comment [A utomated message] The system [employer] generated this result transmitted ref erence range: 0.00 - 0 .20 K/L. The refe rence range was not u sed to interpret this result as normal/abnor mal. Immature 0 % 0-0 Granulocytes-Relative (test code = 2801) Lab Interpretation (test Abnormal code = 12514-1) [facility] W/PLT COUNT & AUTO [id number] 17:03:00 Test Item Value Reference Range Interpretation Comments WHITE BLOOD CELL COUNT (BEAKER) 11.8 K/ L 4.0-10.0 H (test code = 775) RED BLOOD CELL COUNT (BEAKER) 4.62 M/ L 4.00-5.00 (test code = 761) HEMOGLOBIN (BEAKER) (test code = 14.2 GM/DL 12.0-15.5 410) HEMATOCRIT (BEAKER) (test code = 43.0 % 36.0-46.0 411) MEAN CORPUSCULAR VOLUME (BEAKER) 93.1 fL 82.0-99.0 (test code = 753) MEAN CORPUSCULAR HEMOGLOBIN 30.7 pg 27.0-33.0 (BEAKER) (test code = 751) MEAN CORPUSCULAR HEMOGLOBIN CONC 33.0 GM/DL 32.0-36.0 (BEAKER) (test code = 752) RED CELL DISTRIBUTION WIDTH 13.2 % 12.0-15.0 (BEAKER) (test code = 412) PLATELET COUNT (BEAKER) (test 165 K/CU MM 150-430 code = 756) MEAN PLATELET VOLUME (BEAKER) 12.3 fL 6.0-11.5 H (test code = 754) NUCLEATED RED BLOOD CELLS 0 /100 WBC 0-0 (BEAKER) (test code = 413) NEUTROPHILS RELATIVE PERCENT 90 % (BEAKER) (test code = 429) LYMPHOCYTES RELATIVE PERCENT 9 % (BEAKER) (test code = 430) MONOCYTES RELATIVE PERCENT 1 % (BEAKER) (test code = 431) EOSINOPHILS RELATIVE PERCENT 0 % (BEAKER) (test code = 432) BASOPHILS RELATIVE PERCENT 0 % (BEAKER) (test code = 437) NEUTROPHILS ABSOLUTE COUNT 10.68 K/ L 1.80-8.00 H (BEAKER) (test code = 670) LYMPHOCYTES ABSOLUTE COUNT 1.03 K/ L 1.48-4.50 L (BEAKER) (test code = 414) MONOCYTES ABSOLUTE COUNT (BEAKER) 0.06 K/ L 0.00-1.30 (test code = 415) EOSINOPHILS ABSOLUTE COUNT 0.00 K/ L 0.00-0.50 (BEAKER) (test code = 416) BASOPHILS ABSOLUTE COUNT (BEAKER) 0.02 K/ L 0.00-0.20 (test code = 417) IMMATURE GRANULOCYTES-RELATIVE 0 % 0-0 PERCENT (BEAKER) (test code = 2801) Urinalysis with Microscopic If [id number] 16:51:00 Test Item Value Reference Range Interpretation Comments Color, UA (test code = 5778-6) Yellow Clarity, UA (test code = 5767-9) Clear Specific [place], UA (test code = 1.015 1.001-1.035 5811-5) pH, UA (test code = 5803-2) 8.5 5.0-8.0 H Protein, UA (test code = 07668-6) Negative Negative Glucose, UA (test code = 365) Negative Negative Ketones, UA (test code = 2514-8) Negative Negative Bilirubin, UA (test code = 95497-7) Negative Negative Blood, UA (test code = 92015-3) Negative Negative Nitrite, UA (test code = 5802-4) Negative Negative Leukocytes, UA (test code = 5799-2) Negative Negative Urobilinogen, UA (test code = 0.2 mg/dL 0.2-1 48527-0) Specimen Source (test code = 2795) Lab Interpretation (test code = Abnormal 86295-2) [facility] [id number] 16:51:00 Test Item Value Reference Range Interpretation Comments COLOR (BEAKER) (test code = 470) Yellow CLARITY (BEAKER) (test code = 469) Clear SPECIFIC GRAVITY UA (BEAKER) (test 1.015 1.001-1.035 code = 468) PH UA (BEAKER) (test code = 467) 8.5 5.0-8.0 H PROTEIN UA (BEAKER) (test code = Negative Negative 464) GLUCOSE UA (BEAKER) (test code = Negative Negative 365) KETONES UA (BEAKER) (test code = Negative Negative 371) BILIRUBIN UA (BEAKER) (test code = Negative Negative 462) BLOOD UA (BEAKER) (test code = 461) Negative Negative NITRITE UA (BEAKER) (test code = Negative Negative 465) LEUKOCYTE ESTERASE UA (BEAKER) Negative Negative (test code = 466) UROBILINOGEN UA (BEAKER) (test code 0.2 mg/dL 0.2-1.0 = 463) SOURCE(BEAKER) (test code = 2795) CT, [id number] 15:59:00Reason for exam:->EMESISReason for exam:- >Generalized abdominal pain s/p upper and lower endoscopyIs the patient ?->UnknownWhat is the patient's sedation requirement?->No Sedation FINAL REPORT TECHNIQUE: CT of the abdomen and pelvis WITH intravenous contrast and WITHOUT oral contrast. Dose modulation, iterative reconstruction, and/or weight-based adjustment of the mA/kV was utilized to reduce the radiation dose to as low as reasonably achievable. INDICATION: Emesis, generalized abdominal pain status post upper and lower endoscopy. COMPARISON: 01/26/2019. FINDINGS: LOWER THORAX: Unremarkable. HEPATOBILIARY: No focal hepatic lesions. Status post cholecystectomy.. Stable prominence of the common bile duct measuring up to 0.9 cm. No significant intrahepatic biliary ductal dilation..SPLEEN: No splenomegaly.PANCREAS: No focal masses or ductal dilatation. ADRENALS: No adrenal nodules.KIDNEYS/URETERS: No hydronephrosis or solid mass lesions. Multiple punctate nonobstructing bilateral renal calculi.PELVIC ORGANS/BLADDER: Unremarkable. PERITONEUM/RETROPERITONEUM: Small volume free pelvic fluid, likely physiologic. No free intraperitoneal air or focal fluid collection..LYMPH NODES: No lymphadenopathy.VESSELS: Atherosclerotic aspirations of the abdominal aorta and branch vessels. No evidence of aneurysmal dilation.. GI TRACT: Small hiatal hernia. There is gaseous distention of the transverse colon. Bowel loops are otherwise normal in caliber without evidence of obstruction.. Prior appendectomy. BONES AND SOFT TISSUES: Unremarkable. IMPRESSION:No acute intra-abdominal or intrapelvic abnormality. Small hiatal hernia. Gaseous distention of the transverse colon likely related to recent colonoscopy. No evidence of bowel obstruction. Mild prominence of the commonbile duct likely related to reservoir effect from prior cholecystectomy. No significant intrahepaticbiliary duct dilation. Multiple bilateral punctate nonobstructing renal calculi. No hydronephrosis. Signed: Dillon Ford MDReport Verified Date/Time: 04/03/2020 15:59:20 Reading Location: [facility] Reading Room - [place] [id number] Electronically signed by: Doug MATHEWS 04/03/2020 03:59 PMCT abdomen pelvis with IV [id number] 15:59:00Interface, External Ris In - 04/03/2020 4:01 PM CDTFINAL REPORT TECHNIQUE: CT of the abdomen and pelvis WITH intravenous contrast and WITHOUT oral contrast. Dose modulation, iterative reconstruction, and/or weight-based adjustment of the mA/kV was utilized to reduce the radiation dose to as low as reasonably achievable. INDICATION: Emesis, generalized abdominal pain status post upper and lower endoscopy. COMPARISON: 01/26/2019. FINDINGS: LOWER THORAX: Unremarkable. HEPATOBILIARY:No focal hepatic lesions. Status post cholecystectomy.. Stable prominence of the common bile duct measuring up to 0.9 cm. No significant intrahepatic biliary ductal dilation..SPLEEN: No splenomegaly.PANCREAS: No focal masses or ductal dilatation. ADRENALS: No adrenal nodules.KIDNEYS/URETERS: No hydronephrosis or solid mass lesions. Multiple punctate nonobstructing bilateral renal calculi.PELVIC ORGANS/BLADDER: Unremarkable. PERITONEUM/RETROPERITONEUM: Small volume free pelvic fluid, likely physiologic. No free intraperitoneal air or focal fluid collection..LYMPH NODES: No lymphadenopathy.VESSELS: Atherosclerotic aspirations of the abdominal aorta and branch vessels. No evidence of aneurysmal dilation.. GI TRACT: Small hiatal hernia. There is gaseous distention of the transverse colon. Bowel loopsare otherwise normal in caliber without evidence of obstruction.. Prior appendectomy. BONES AND SOFTTISSUES: Unremarkable. IMPRESSION:No acute intra-abdominal or intrapelvic abnormality. Small hiatal h ernia. Gaseous distention of the transverse colon likely related to recent colonoscopy. No evidence of bowel obstruction. Mild prominence of the common bile duct likely related to reservoir effect fromprior cholecystectomy. No significant intrahepatic biliary duct dilation. Multiple bilateral punctate nonobstructing renal calculi. No hydronephrosis. Signed: Dillon Ford MDReport Verified Date/Time: 04/03/2020 15:59:20 Reading Location: [facility] Reading Room - [place] [id number] [facility] Comprehensive metabolic [id number] 15:24:00 Test Item Value Reference Range Interpretation Comments Protein, Total (test 7.6 See_Comment [Autom ated code = 2885-2) message] The system which generated this result transmit abdias reference range : 6.0 - 8.5 gm/dL . The reference range was not u sed to interpret th is result as normal/abnormal . Albumin (test code = 4.3 g/dL 3.5-5 78937-5) Alkaline Phosphatase 56 U/L 30-115 (test code = 6768-6) Total Bilirubin (test 0.3 mg/dL 0.1-1.2 code = 1975-2) Sodium (test code = 138 meq/L 831-838 5077-2) Potassium (test code 3.8 meq/L 3.6-5.5 = 2823-3) Chloride (test code = 106 meq/L 98-106 2075-0) CO2 (test code = 18 meq/L 20-29 L 2028-9) BUN (test code = 7 mg/dL 10-26 L 3094-0) Creatinine (test code 0.93 mg/dL 0.5-1.2 = 2160-0) Glucose (test code = 129 mg/dL 70-110 H 2345-7) Calcium (test code = 9.2 mg/dL 8.5-10.5 08758-1) AST (test code = 17 U/L 5-40 1920-8) ALT (test code = 11 U/L 5-50 1742-6) EGFR (test code = 67 mL/min/1.73 [place] [address]-9) NOT ACCURATE CREATININE CLEARANCE IN PREDICTING GLOMERULAR FILTRATION RATE . ESTIMATED GFR I S NOT APPLICABLE FOR DIALYSIS PATIEN TS. LEXA (test code = LEXA) Motor Vehicle Examiner ID - [id number] Lab Interpretation Abnormal (test code = 20458-9) [facility] [id number] 15:24:00 Test Item Value Reference Range Interpretation Comments TOTAL PROTEIN 7.6 gm/dL 6.0-8.5 (BEAKER) (test code = 770) ALBUMIN (BEAKER) 4.3 g/dL 3.5-5.0 (test code = 1145) ALKALINE PHOSPHATASE 56 U/L 30-115 (BEAKER) (test code = 346) BILIRUBIN TOTAL 0.3 mg/dL 0.1-1.2 (BEAKER) (test code = 377) SODIUM (BEAKER) (test 138 meq/L 135-148 code = 381) POTASSIUM (BEAKER) 3.8 meq/L 3.6-5.5 (test code = 379) CHLORIDE (BEAKER) 106 meq/L 98-106 (test code = 382) CO2 (BEAKER) (test 18 meq/L 20-29 L code = 355) BLOOD UREA NITROGEN 7 mg/dL 10-26 L (BEAKER) (test code = 354) CREATININE (BEAKER) 0.93 mg/dL 0.50-1.20 (test code = 358) GLUCOSE RANDOM 129 mg/dL 70-110 H (BEAKER) (test code = 652) CALCIUM (BEAKER) 9.2 mg/dL 8.5-10.5 (test code = 697) AST (SGOT) (BEAKER) 17 U/L 5-40 (test code = 353) ALT (SGPT) (BEAKER) 11 U/L 5-50 (test code = 347) EGFR (BEAKER) (test 67 mL/min/1.73 ESTIMA ABDIAS GFR IS code = 1092) sq m NOT ACCURATE CREATININE CLEARANCE IN PREDICTING GLOMERULAR FILTRATION RATE . ESTIMATED GFR I S NOT APPLICABLE FOR DIALYSIS PATIEN TS. Motor Vehicle Examiner ID - [id number] METABOLIC [id number] 18:24:00 Test Item Value Reference Range Interpretation Comments GLUCOSE (test code = 91 mg/dL 75-100 06D) SODIUM (test code = 139 mmol/L 136-145 01A) POTASSIUM (test code = 4.1 mmol/L 3.6-5.1 01B) CHLORIDE (test code = 110 mmol/L 98-107 H 04A) CO2 (test code = 02A) 24 mmol/L 22-32 ANION GAP (test code = 9.1 mmol/L ANG) BUN (test code = 05D) 11 mg/dL 7-18 CREATININE (test code 1.2 mg/dL 0.4-1.1 H = 03E) GFR (test code = GFR) 58 mL/min/1.73m\\S\\2 >=90 L GFR 67 mL/min/1.73m\\S\\2 >=90 L (test code = GFRAA) EGFR (test code = eGFR BY CKD-EPI EGFR) CALCULATION IS NOT RECOMMENDED FOR PATIENTS UNDER 18 YEARS OF AGE. BUN/CREA (test code = 9 12-20 L BCR) CALCIUM (test code = 8.4 mg/dL 8.3-9.5 09D) BILI TOTAL (test code 0.4 mg/dL 0.2-1.0 = 11A) PROTEIN (test code = 7.8 g/dL 6.4-8.2 07D) ALBUMIN (test code = 3.7 g/dL 3.5-4.8 08D) GLOBULIN (test code = 4.1 g/dL 1.5-3.8 H GLB) ALB/GLOB (test code = 0.9 1.0-2.6 L AGRR) ALK PHOS (test code = 66 IU/L 42-121 35A) AST (test code = 30A) 100 IU/L <=42 H ALT (test code = 31A) 44 IU/L <=78 [id number] 18:24:00 Test Item Value Reference Range Interpretation Comments AMYLASE (test code = 10A) 42 U/L 28-100 LIPASE [id number] 18:24:00 Test Item Value Reference Range Interpretation Comments LIPASE (test code = 60A) 58 IU/L 73-393 L URINALYSIS WITH [id number] 18:16:00 Test Item Value Reference Range Interpretation Comments COLOR (test code = COLU) DK YELLOW YELLOW A CLARITY (test code = CLA) CLOUDY CLEAR A GLUCOSE UR (test code = UA GLUCOSE) NEGATIVE NEGATIVE BILI UR (test code = BILE) 1+ NEGATIVE A KETONES UR (test code = ZULMA) TRACE NEGATIVE A SP GRAVITY (test code = SPGR) 1.040 1.005-1.030 H PH UR (test code = PH) 6.0 4.5-8.0 PROTEIN UR (test code = PU) 2+ NEGATIVE A UROBIL UR (test code = UROQ) 1.0 EU/dL 0.2-1.0 NITRITE UR (test code = NITRITE) NEGATIVE NEGATIVE BLOOD UR (test code = UA BLOOD) 3+ NEGATIVE A LEUK ES UR (test code = LEUK) NEGATIVE NEGATIVE WBC UR (test code = UWBC) 4 /HPF 0-5 RBC UR (test code = URBC) 30 /HPF 0-2 H EPITH UR (test code = UEPC) FEW /LPF FEW BACTERIA UR (test code = UBACT) NONE /HPF NONE CAST UR (test code = CAST) /LPF NONE CRYSTAL UR (test code = CRYU) / LPF NONE MUCUS UR (test code = MUC) / HPF NONE AMORPH UR (test code = MODE) / HPF NONE TRICH UR (test code = UTRICH) /HPF NONE YEAST UR (test code = UY) /HPF NONE SPERM UR (test code = USPERM) /HPF NONE CBC (INCLUDES AUTOMATED DIFFERENTIAL)2019-11-24 18:09:00 Test Item Value Reference Range Interpretation Comments WBC (test code = WBC) 11.2 10\\S\\3/uL 4.5-11.0 H RBC (test code = RBC) 4.64 10\\S\\6/uL 4.30-5.70 HGB (test code = HBG) 14.1 g/dL 12.0-15.5 HCT (test code = HCT) 42.3 % 35.0-44.0 MCV (test code = MCV) 91.2 fL 81.0-99.0 MCH (test code = MCH) 30.4 pg 27.0-31.0 MCHC (test code = MCHC) 33.3 g/dL 32.0-36.0 RDW (test code = RDW) 14.0 % 11.5-14.5 PLT (test code = PLT) 293 10\\S\\3/uL 130-400 MPV (test code = MPV) 12.1 fL 9.4-12.4 NEUTROP # (test code = NE#) 8.0 10\\S\\3/uL 1.6-8.0 LYMPH # (test code = LY#) 2.3 10\\S\\3/uL 1.1-3.5 MONOCYTE # (test code = MO#) 0.8 10\\S\\3/uL 0.0-1.1 EOSINOPH # (test code = EO#) 0.1 10\\S\\3/uL 0.0-0.7 BASOPHIL # (test code = BA#) 0.0 10\\S\\3/uL 0.0-0.3 IG # (test code = IG#) 0.03 10\\S\\3/uL 0.00-0.06 NRBC # (test code = NRBC#) 0.00 10\\S\\3/uL 0.00-0.01 NEUTROPH % (test code = NE%) 70.9 % 35.0-73.0 LYMPH % (test code = LY%) 20.8 % 20.0-55.0 MONO % (test code = MO%) 7.1 % 2.5-10.0 EOSINOPH % (test code = EO%) 0.5 % 0.0-5.0 BASOPHIL % (test code = BA%) 0.4 % 0.0-2.0 IG % (test code = IG%) 0.3 % 0.0-0.8 NRBC% (test code = NRBC%) 0.0 % 0.0-0.2 MANDIFF (test code = MDIFF) NO NO RBC MORPH (test code = RBCMOR) NORMAL URINE [id number] 18:04:00 Test Item Value Reference Range Interpretation Comments PREG UR (test code = PGU) NEGATIVE NEGATIVE Panel Description: Pathology [id number] 16:37:00 Test Item Value Reference Range Interpretation Comments MATER (test code = Comment Material submitted: 12750-2) .endometrium - EMB

Pe rformed by:
[facility] ()

FDIAG (test code = Comment 55821-1) *Diagnosis:E ndometrium, bio psy:- Secretory endom etrium.- Negative for at ypical hyperplasia or malignancy..[facility] 08/27/2019 1532 Local
< br/>Performed by:
[facility] ()

SIGNED (test code = Comment Electron ically signed: 78442-4) .Sofy estrella MD, Pathologist<br/ >
Perfor med by:
[facility] ()

DIANE (test code = Comment Amalia de scription: .1 56824-5) Container, form kanika-filled, labeled with pa tient identification. EMB:Received in formalin is a 3.3 x 3.0 x 0.5 aggregate of mucus and softtissue. The specimen is mireya tered and entirely submit abdias in [id number]./[facility] 08/26/2019 0649 Local

Performed by:
[facility] ()

MICROD (test code = Comment Microsco pic: .Microscopic 36347-9) examination performed.

Perform ed by:
[facility] ()

CPT (test code = Comment CPT 97321-7) .[id number]

Performed by:
[facility] ()

[facility] Description: Pathology [id number] 16:37:00 Test Item Value Reference Range Interpretation Comments MATER (test code = Comment Material submitted: 33355-9) .endometrium - EMB

Pe rformed by:
[facility] ()

FDIAG (test code = Comment 73610-8) *Diagnosis:E ndometrium, bio psy:- Secretory endom etrium.- Negative for at ypical hyperplasia or malignancy..[facility] 08/27/2019 1532 Local
< br/>Performed by:
[facility] ()

SIGNED (test code = Comment Electron ically signed: 88496-5) .Sofy estrella MD, Pathologist<br/ >
Perfor med by:
[facility] ()

DIANE (test code = Comment Amalia de scription: .1 80044-2) Container, form kanika-filled, labeled with pa tient identification. EMB:Received in formalin is a 3.3 x 3.0 x 0.5 aggregate of mucus and softtissue. The specimen is mireya tered and entirely submit abdias in [id number]./SLC 08/26/2019 0649 Local

Performed by:
[facility] ()

MICROD (test code = Comment Microsco pic: .Microscopic 50767-4) examination performed.

Perform ed by:
[facility] ()

CPT (test code = Comment CPT 70099-9) .[id number]

Performed by:
[facility] ()

[facility] Description: Pathology [id number] 16:37:00 Test Item Value Reference Range Interpretation Comments MATER (test code = Comment Material submitted: 85303-8) .endometrium - EMB

Pe rformed by:
[facility] ()

FDIAG (test code = Comment 71921-2) *Diagnosis:E ndometrium, bio psy:- Secretory endom etrium.- Negative for at ypical hyperplasia or malignancy..[facility] 08/27/2019 1532 Local
< br/>Performed by:
[facility] ()

SIGNED (test code = Comment Electron ically signed: 75673-5) .Sofy estrella MD, Pathologist<br/ >
Perfor med by:
[facility] ()

DIANE (test code = Comment Amalia de scription: .1 17304-8) Container, form kanika-filled, labeled with pa tient identification. EMB:Received in formalin is a 3.3 x 3.0 x 0.5 aggregate of mucus and softtissue. The specimen is mireya tered and entirely submit abdias in [id number]./[facility] 08/26/2019 0649 Local

Performed by:
[facility] ()

MICROD (test code = Comment Microsco pic: .Microscopic 26017-9) examination performed.

Perform ed by:
[facility] ()

CPT (test code = Comment CPT 52603-9) .[id number]

Performed by:
Mery Donovan ()

[facility] Description: Pathology [id number] 16:37:00 Test Item Value Reference Range Interpretation Comments MATER (test code = Comment Material submitted: 13100-2) .endometrium - EMB

Pe rformed by:
Mery Donovan ()

FDIAG (test code = Comment 23303-1) *Diagnosis:E ndometrium, bio psy:- Secretory endom etrium.- Negative for at ypical hyperplasia or malignancy..[facility] 08/27/2019 1532 Local
< br/>Performed by:
Mery Donovan ()

SIGNED (test code = Comment Electron ically signed: 03057-1) .Sofy estrella MD, Pathologist<br/ >
Perfor med by:
Quinn Donovan ()

DIANE (test code = Comment Amalia de scription: .1 67019-1) Container, form kanika-filled, labeled with pa tient identification. EMB:Received in formalin is a 3.3 x 3.0 x 0.5 aggregate of mucus and softtissue. The specimen is mireya tered and entirely submit abdias in [id number]./[facility] 08/26/2019 0649 Local

Performed by:
Mery Donovan ()

MICROD (test code = Comment Microsco pic: .Microscopic 70191-1) examination performed.

Perform ed by:
[facility] ()

CPT (test code = Comment CPT 25146-5) .311511

Performed by:
[facility] ()

[facility] Description: Pathology Czzguu8400-51-02 16:37:00 Test Item Value Reference Range Interpretation Comments MATER (test code = Comment Material submitted: 13049-7) .endometrium - EMB

Pe rformed by:
[facility] ()

FDIAG (test code = Comment 40836-8) *Diagnosis:E ndometrium, bio psy:- Secretory endom etrium.- Negative for at ypical hyperplasia or malignancy..[facility] 08/27/2019 1532 Local
< br/>Performed by:
[facility] ()

SIGNED (test code = Comment Electron ically signed: 91413-7) .Sofy estrella MD, Pathologist<br/ >
Perfor med by:
[facility] ()

DIANE (test code = Comment Gross de scription: .1 70789-8) Container, form kanika-filled, labeled with pa tient identification. EMB:Received in formalin is a 3.3 x 3.0 x 0.5 aggregate of mucus and softtissue. The specimen is mireya tered and entirely submit abdias in [id number]./[facility] 08/26/2019 0649 Local

Performed by:
Mery Donovan ()

MICROD (test code = Comment Microsco pic: .Microscopic 35079-5) examination performed.

Perform ed by:
[facility] ()

CPT (test code = Comment CPT 37486-5) .073439

Performed by:
Mery Donovan ()

[facility] Description: Pathology Muhewh2500-81-70 16:37:00 Test Item Value Reference Range Interpretation Comments MATER (test code = Comment Material submitted: 43238-3) .endometrium - EMB

Pe rformed by:
Mery Donovan ()

FDIAG (test code = Comment 99478-7) *Diagnosis:E ndometrium, bio psy:- Secretory endom etrium.- Negative for at ypical hyperplasia or malignancy..[facility] 08/27/2019 1532 Local
< br/>Performed by:
Mery Donovan ()

SIGNED (test code = Comment Electron ically signed: 41002-7) .Sofy estrella MD, Pathologist<br/ >
Perfor med by:
[facility] ()

DIANE (test code = Comment Amalia de scription: .1 66664-2) Container, form kanika-filled, labeled with pa tient identification. EMB:Received in formalin is a 3.3 x 3.0 x 0.5 aggregate of mucus and softtissue. The specimen is mireya tered and entirely submit abdias in [id number]./[facility] 08/26/2019 0649 Local

Performed by:
[facility] ()

MICROD (test code = Comment Microsco pic: .Microscopic 18478-8) examination performed.

Perform ed by:
[facility] ()

CPT (test code = Comment CPT 31686-8) .765096

Performed by:
[facility] ()

AccessHealthDRUGS OF ABUSE *WW*2019-08-23 14:22:00 Test Item Value Reference Range Interpretation Comments DRUG SCRN (test code = URINE DRUG HDOA) SCREEN This is an unconfirmed screening result and should not be used for non-medical purposes CANNABINOD (test code POSITIVE NEGATIVE A = 88C) AMPHETAMINE (test code POSITIVE NEGATIVE A = 84A) BENZODIAZP (test code Negative NEGATIVE = 86A) BARBITURAT (test code Negative NEGATIVE = 85A) OPIATES (test code = Negative NEGATIVE 92B) COCAINE (test code = POSITIVE NEGATIVE A 87A) PHENCYCLID (test code Negative NEGATIVE = 66A) METHADONE (test code = Negative NEGATIVE 64A) DOAH (test code = DOAH.) URINE DRUG SCREEN Cut-off values are as follows: Cannabinoids 50 ng/mL Cocaine 300 ng/mL Amphetamines 1000 ng/mL Phencyclidine 25 ng/mL Benzodiazepines 200 ng.mL Methadone 300 ng/mL Barbiturates 200 ng/mL Opiates 2000 ng/mL POTASSIUM BLOOD *WW*2019-08-09 11:35:00 Test Item Value Reference Range Interpretation Comments POTASSIUM (test code = 01B) 3.9 mmol/L 3.6-5.1 Panel Description: IGP,CtNg,AptimaHPV,rfx16/18,947548-43-36 12:58:00 Test Item Value Reference Range Interpretation Comments CICD10 (test code Comment N93.9Z68.3 0

Perfor = 43898-5) med by:
[facility] ()

PERFOR (test code Comment Neftali Garcia jose, = 37197-1) Cytotechnologis t (ASCP)
<br/ >Performed by:
[facility] ()

IGLBP (test code = Comment This liqu id based 07427-9) ThinPrep(R) pap test was screened with t heuse of an image guided system.

Performed by:
[facility] ()

HPV Aptima (test Negative Negative This nuclei c acid code = 02782-6) amplificatio n test detects fourteen high-r iskHPV types (16,18,31,33,35 ,39,45,51,52 ,56,58,59,66,68 ) withoutdifferen tiation.<br/ >
Performed by:
[facility] ()

Chlamydia, Nuc. Negative Negative Acid Amp (test code = 30554-5) Gonococcus, Nuc. Negative Negative Acid Amp (test code = 20759-2) [facility] Description: IGP,CtNg,AptimaHPV,rfx16/18, 12:58:00 Test Item Value Reference Range Interpretation Comments CICD10 (test code Comment N93.9Z68.3 0

Perfor = 63230-5) med by:
[facility] [place] ()

PERFOR (test code Comment Neftali Jose garcia, = 72004-1) Cytotechnologis t (ASCP)
<br/ >Performed by:
[facility] [place] ()

IGLBP (test code = Comment This liqu id based 04832-5) ThinPrep(R) pap test was screened with t heuse of an image guided system.

Performed by:
[facility] [place] ()

HPV Aptima (test Negative Negative This nuclei c acid code = 99539-8) amplificatio n test detects fourteen high-r iskHPV types (16,18,31,33,35 ,39,45,51,52 ,56,58,59,66,68 ) withoutdifferen tiation.<br/ >
Performed by:
[facility] [place] ()

Chlamydia, Nuc. Negative Negative Acid Amp (test code = 22943-5) Gonococcus, Nuc. Negative Negative Acid Amp (test code = 54558-0) [facility] Description: IGP,CtNg,AptimaHPV,rfx16/18, 12:58:00 Test Item Value Reference Range Interpretation Comments CICD10 (test code Comment N93.9Z68.3 0

Perfor = 55854-1) med by:
Lab [facility] [facility] [place] ()

PERFOR (test code Comment Neftalicesario garcia, = 72044-5) Cytotechnologis t (ASCP)
<br/ >Performed [facility]:
[facility] ()

IGLBP (test code = Comment This [place] id based 19542-0) ThinPrep(R) pap test was screened with t heuse of an image guided system.

Performed by:
[facility] ()

HPV Aptima (test Negative Negative This nuclei c acid code = 35887-4) amplificatio n test detects fourteen high-r iskHPV types (16,18,31,33,35 ,39,45,51,52 ,56,58,59,66,68 ) withoutdifferen tiation.<br/ >
Performed by:
[facility] ()

Chlamydia, Nuc. Negative Negative Acid Amp (test code = 22016-5) Gonococcus, Nuc. Negative Negative Acid Amp (test code = 72142-2) [facility] Description: IGP,CtNg,AptimaHPV,rfx16/18,079980-00-31 12:58:00 Test Item Value Reference Range Interpretation Comments CICD10 (test code Comment N93.9Z68.3 0

Perfor = 58523-3) med by:
[facility] ()

PERFOR (test code Comment Neftali garcia, = 29170-5) Cytotechnologis t (ASCP)
<br/ >Performed by:
[facility] ()

IGLBP (test code = Comment This liqu id based 53588-4) ThinPrep(R) pap test was screened with t heuse of an image guided system.

Performed by:
[facility] ()

HPV Aptima (test Negative Negative This nuclei c acid code = 80102-8) amplificatio n test detects fourteen high-r iskHPV types (16,18,31,33,35 ,39,45,51,52 ,56,58,59,66,68 ) withoutdifferen tiation.<br/ >
Performed by:
[facility] ()

Chlamydia, Nuc. Negative Negative Acid Amp (test code = 24528-6) Gonococcus, Nuc. Negative Negative Acid Amp (test code = 95481-3) [facility] Description: IGP,CtNg,AptimaHPV,rfx16/18, 12:58:00 Test Item Value Reference Range Interpretation Comments CICD10 (test code Comment N93.9Z68.3 0

Perfor = 95216-4) med by:
[facility] ()

PERFOR (test code Comment Neftali Garcia jose, = 17980-9) Cytotechnologis t (ASCP)
<br/ >Performed by:
[facility] ()

IGLBP (test code = Comment This liqu id based 39490-3) ThinPrep(R) pap test was screened with t heuse of an image guided system.

Performed by:
[facility] ()

HPV Aptima (test Negative Negative This nuclei c acid code = 86140-5) amplificatio n test detects fourteen high-r iskHPV types (16,18,31,33,35 ,39,45,51,52 ,56,58,59,66,68 ) withoutdifferen tiation.<br/ >
Performed by:
[facility] ()

Chlamydia, Nuc. Negative Negative Acid Amp (test code = 98231-3) Gonococcus, Nuc. Negative Negative Acid Amp (test code = 57375-5) [facility] Description: IGP,CtNg,AptimaHPV,rfx16/18, 12:58:00 Test Item Value Reference Range Interpretation Comments CICD10 (test code Comment N93.9Z68.3 0

Perfor = 92498-7) med by:
[facility] [place] ()

PERFOR (test code Comment Neftali garcia, = 71590-1) Cytotechnologis t (ASCP)
<br/ >Performed by:
[facility] [place] ()

IGLBP (test code = Comment This liqu id based 80523-7) ThinPrep(R) pap test was screened with t heuse of an image guided system.

Performed by:
[facility] [place] ()

HPV Aptima (test Negative Negative This nuclei c acid code = 34405-6) amplificatio n test detects fourteen high-r iskHPV types (16,18,31,33,35 ,39,45,51,52 ,56,58,59,66,68 ) withoutdifferen tiation.<br/ >
Performed by:
[facility] [place] ()

Chlamydia, Nuc. Negative Negative Acid Amp (test code = 37115-7) Gonococcus, Nuc. Negative Negative Acid Amp (test code = 99151-7) [facility] KJRZ3879-45-52 10:09:00 Patient Name: RHEA SPARKS Unit No: [id number] EXAMS: CPT CODE: [id number] CT HD/BR W W/OCONT 00228 EXAM: CT Head with and without contrast Location code:J9 HISTORY: Nausea COMPARISON: None available. TECHNIQUE: Multiple transaxial images of the brain were obtained with and without intravenous contrast using 5mm slices. CT imaging performed at this location utilizes radiation dose optimization techniques which include one or more of the following: -Automated exposure control -Adjustmentof the mA and/or kV according to patient size -Use of iterative reconstruction technique CT Radiation Dose DLP mGy-cm FINDINGS: No abnormal enhancement. There is no acute intracranial hemorrhage. Thereis no mass, mass effect, midline shift or extra-axial fluid collection.Brain parenchymal volume and ventricular caliber are within normal limits. Perkins-white differentiation is maintained. There is no evidence for acute major vessel infarct. Paranasal sinuses, mastoid air cells and visualized orbital contents are within normal limits. Osseous structures are within normal limits. IMPRESSION: Unremarkable exam. at 1009 Reported and signed by:Wilman Marquis M.D. CC: Vielka Reno III, MD Technologist: Kendrick Bradshaw, RT(R) CTDI: DLP: Trnscrpt: 07/28/2019 (1009) t.SDR.RR16 [facility] NAME: RHEA SPARKS [id number] [place] [address], [address]. [address] PHYS: UNDEFINED [place] [address] : 1980 AGE: 38 SEX: FACCT NO: [id number] LOC: ADY PHONE #: [phone] EXAM DATE: 07/28/2019 STATUS: REG CLI FAX #:[phone] RAD #: D/C DT PAGE 1 Signed Report Patient Name: RHEA SPARKS Unit No: [id number] EXAMS: CPT CODE: [id number] CT HD/BR W W/O CONT 98114 (Continued) Orig Print D/T: S: 07/28/2019 (1012) [facility] NAME: RHEA SPARKS [id number] [place] [address], [address]. [address] PHYS: UNDEFINED [place] [address] : 1980 AGE: 38 SEX: F : ADY PHONE #: [phone] EXAM DATE: 07/28/2019 STATUS: REG CLI FAX #: [phone] RAD #: D/ C DT PAGE 2 Signed ReportPanel Description: Thyrotropin [Units/volume] in Serum or Plasma by Detection limit <= 0.05 mIU/[id number] 06:37:00 Test Item Value Reference Range Interpretation Comments TSH (test code = 60359-6) 1.900 uIU/mL 0.450-4.500 [facility] Description: Thyrotropin [Units/volume] in Serum or Plasma by Detection limit <= 0.05 mIU/G5720-28-81 06:37:00 Test Item Value Reference Range Interpretation Comments TSH (test code = 20411-5) 1.900 uIU/mL 0.450-4.500 [facility] Description: Thyrotropin [Units/volume] in Serum or Plasma by Detection limit <= 0.05 mIU/O9717-06-82 06:37:00 Test Item Value Reference Range Interpretation Comments TSH (test code = 49658-0) 1.900 uIU/mL 0.450-4.500 [facility] Description: Thyrotropin [Units/volume] in Serum or Plasma by Detection limit <= 0.05 mIU/E0803-93-64 06:37:00 Test Item Value Reference Range Interpretation Comments TSH (test code = 68169-2) 1.900 uIU/mL 0.450-4.500 [facility] Description: Thyrotropin [Units/volume] in Serum or Plasma by Detection limit <= 0.05 mIU/E7975-92-76 06:37:00 Test Item Value Reference Range Interpretation Comments TSH (test code = 19514-0) 1.900 uIU/mL 0.450-4.500 [facility] Description: Thyrotropin [Units/volume] in Serum or Plasma by Detection limit <= 0.05 mIU/W6519-60-21 06:37:00 Test Item Value Reference Range Interpretation Comments TSH (test code = 67238-0) 1.900 uIU/mL 0.450-4.500 [facility] Description: CBC With Differential/Ztjuxjsv2366-81-56 06:10:00 Test Item Value Reference Range Interpretation Comments WBC (test code = 7.5 x10E3/uL 3.4-10.8 6690-2) RBC (test code = 4.31 x10E6/uL 3.77-5.28 789-8) Hemoglobin (test code 12.9 g/dL 11.1-15.9 = 718-7) Hematocrit (test code 40.3 % 34.0-46.6 = 4544-3) MCV (test code = 94 fL 79-97 787-2) MCH (test code = 29.9 pg 26.6-33.0 785-6) MCHC (test code = 32.0 g/dL 31.5-35.7 786-4) RDW (test code = 15.1 % 12.3-15.4 Effective 788-0) August 16, 2019 , the RDW pediatr ic reference interval will b e removed and the adult reference interval will b e changing to: Female 11.7 - 1 5.4 Male 11.6 - 15.4

P erf ormed by:
[facility] [place] ([place])

Platelets (test code = 315 x10E3/uL 150-450 777-3) Neutrophils (test code 49 % Not Estab. = 770-8) Lymphs (test code = 40 % Not Estab. 736-9) Monocytes (test code = 9 % Not Estab. 5905-5) Eos (test code = 2 % Not Estab. 713-8) Basos (test code = 0 % Not Estab. 706-2) Neutrophils (Absolute) 3.7 x10E3/uL 1.4-7.0 (test code = 751-8) Lymphs (Absolute) 3.0 x10E3/uL 0.7-3.1 (test code = 731-0) Monocytes(Absolute) 0.6 x10E3/uL 0.1-0.9 (test code = 742-7) Eos (Absolute) (test 0.2 x10E3/uL 0.0-0.4 code = 711-2) Baso (Absolute) (test 0.0 x10E3/uL 0.0-0.2 code = 704-7) Immature Granulocytes 0 % Not Estab. (test code = 80678-0) Immature Grans (Abs) 0.0 x10E3/uL 0.0-0.1 (test code = 58813-1) NRBC (test code = 11844-8) Hematology Comments: (test code = 06647-6) [facility] Description: CBC With Differential/Hjjzusjh3814-65-47 06:10:00 Test Item Value Reference Range Interpretation Comments WBC (test code = 7.5 x10E3/uL 3.4-10.8 6690-2) RBC (test code = 4.31 x10E6/uL 3.77-5.28 789-8) Hemoglobin (test code 12.9 g/dL 11.1-15.9 = 718-7) Hematocrit (test code 40.3 % 34.0-46.6 = 4544-3) MCV (test code = 94 fL 79-97 787-2) MCH (test code = 29.9 pg 26.6-33.0 785-6) MCHC (test code = 32.0 g/dL 31.5-35.7 786-4) RDW (test code = 15.1 % 12.3-15.4 Effective 788-0) August 16, 2019 , the RDW pediatr ic reference interval will b e removed and the adult reference interval will b e changing to: Female 11.7 - 1 5.4 Male 11.6 - 15.4

P erf ormed by:
[facility] ([place])

Platelets (test code = 315 x10E3/uL 150-450 777-3) Neutrophils (test code 49 % Not Estab. = 770-8) Lymphs (test code = 40 % Not Estab. 736-9) Monocytes (test code = 9 % Not Estab. 5905-5) Eos (test code = 2 % Not Estab. 713-8) Basos (test code = 0 % Not Estab. 706-2) Neutrophils (Absolute) 3.7 x10E3/uL 1.4-7.0 (test code = 751-8) Lymphs (Absolute) 3.0 x10E3/uL 0.7-3.1 (test code = 731-0) Monocytes(Absolute) 0.6 x10E3/uL 0.1-0.9 (test code = 742-7) Eos (Absolute) (test 0.2 x10E3/uL 0.0-0.4 code = 711-2) Baso (Absolute) (test 0.0 x10E3/uL 0.0-0.2 code = 704-7) Immature Granulocytes 0 % Not Estab. (test code = 47397-6) Immature Grans (Abs) 0.0 x10E3/uL 0.0-0.1 (test code = 19647-1) NRBC (test code = 21960-0) Hematology Comments: (test code = 16411-1) [facility] Description: CBC With Differential/Nfznjurc3469-23-04 06:10:00 Test Item Value Reference Range Interpretation Comments WBC (test code = 7.5 x10E3/uL 3.4-10.8 6690-2) RBC (test code = 4.31 x10E6/uL 3.77-5.28 789-8) Hemoglobin (test code 12.9 g/dL 11.1-15.9 = 718-7) Hematocrit (test code 40.3 % 34.0-46.6 = 4544-3) MCV (test code = 94 fL 79-97 787-2) MCH (test code = 29.9 pg 26.6-33.0 785-6) MCHC (test code = 32.0 g/dL 31.5-35.7 786-4) RDW (test code = 15.1 % 12.3-15.4 Effective 788-0) August 16, 2019 , the RDW pediatr ic reference interval will b e removed and the adult reference interval will b e changing to: Female 11.7 - 1 5.4 Male 11.6 - 15.4

P erf ormed by:
[facility] ([place])

Platelets (test code = 315 x10E3/uL 150-450 777-3) Neutrophils (test code 49 % Not Estab. = 770-8) Lymphs (test code = 40 % Not Estab. 736-9) Monocytes (test code = 9 % Not Estab. 5905-5) Eos (test code = 2 % Not Estab. 713-8) Basos (test code = 0 % Not Estab. 706-2) Neutrophils (Absolute) 3.7 x10E3/uL 1.4-7.0 (test code = 751-8) Lymphs (Absolute) 3.0 x10E3/uL 0.7-3.1 (test code = 731-0) Monocytes(Absolute) 0.6 x10E3/uL 0.1-0.9 (test code = 742-7) Eos (Absolute) (test 0.2 x10E3/uL 0.0-0.4 code = 711-2) Baso (Absolute) (test 0.0 x10E3/uL 0.0-0.2 code = 704-7) Immature Granulocytes 0 % Not Estab. (test code = 44324-5) Immature Grans (Abs) 0.0 x10E3/uL 0.0-0.1 (test code = 39103-3) NRBC (test code = 25692-9) Hematology Comments: (test code = 28005-0) [facility] Description: CBC With Differential/Fxaywkei9922-29-88 06:10:00 Test Item Value Reference Range Interpretation Comments WBC (test code = 7.5 x10E3/uL 3.4-10.8 6690-2) RBC (test code = 4.31 x10E6/uL 3.77-5.28 789-8) Hemoglobin (test code 12.9 g/dL 11.1-15.9 = 718-7) Hematocrit (test code 40.3 % 34.0-46.6 = 4544-3) MCV (test code = 94 fL 79-97 787-2) MCH (test code = 29.9 pg 26.6-33.0 785-6) MCHC (test code = 32.0 g/dL 31.5-35.7 786-4) RDW (test code = 15.1 % 12.3-15.4 Effective 788-0) August 16, 2019 , the RDW pediatr ic reference interval will b e removed and the adult reference interval will b e changing to: Female 11.7 - 1 5.4 Male 11.6 - 15.4

P erf ormed by:
[facility] ([place])

Platelets (test code = 315 x10E3/uL 150-450 777-3) Neutrophils (test code 49 % Not Estab. = 770-8) Lymphs (test code = 40 % Not Estab. 736-9) Monocytes (test code = 9 % Not Estab. 5905-5) Eos (test code = 2 % Not Estab. 713-8) Basos (test code = 0 % Not Estab. 706-2) Neutrophils (Absolute) 3.7 x10E3/uL 1.4-7.0 (test code = 751-8) Lymphs (Absolute) 3.0 x10E3/uL 0.7-3.1 (test code = 731-0) Monocytes(Absolute) 0.6 x10E3/uL 0.1-0.9 (test code = 742-7) Eos (Absolute) (test 0.2 x10E3/uL 0.0-0.4 code = 711-2) Baso (Absolute) (test 0.0 x10E3/uL 0.0-0.2 code = 704-7) Immature Granulocytes 0 % Not Estab. (test code = 74375-9) Immature Grans (Abs) 0.0 x10E3/uL 0.0-0.1 (test code = 72287-1) NRBC (test code = 73790-7) Hematology Comments: (test code = 12747-2) [facility] Description: CBC With Differential/Sygtprft6102-32-49 06:10:00 Test Item Value Reference Range Interpretation Comments WBC (test code = 7.5 x10E3/uL 3.4-10.8 6690-2) RBC (test code = 4.31 x10E6/uL 3.77-5.28 789-8) Hemoglobin (test code 12.9 g/dL 11.1-15.9 = 718-7) Hematocrit (test code 40.3 % 34.0-46.6 = 4544-3) MCV (test code = 94 fL 79-97 787-2) MCH (test code = 29.9 pg 26.6-33.0 785-6) MCHC (test code = 32.0 g/dL 31.5-35.7 786-4) RDW (test code = 15.1 % 12.3-15.4 Effective 788-0) August 16, 2019 , the RDW pediatr ic reference interval will b e removed and the adult reference interval will b e changing to: Female 11.7 - 1 5.4 Male 11.6 - 15.4

P erf ormed by:
[facility] ([place])

Platelets (test code = 315 x10E3/uL 150-450 777-3) Neutrophils (test code 49 % Not Estab. = 770-8) Lymphs (test code = 40 % Not Estab. 736-9) Monocytes (test code = 9 % Not Estab. 5905-5) Eos (test code = 2 % Not Estab. 713-8) Basos (test code = 0 % Not Estab. 706-2) Neutrophils (Absolute) 3.7 x10E3/uL 1.4-7.0 (test code = 751-8) Lymphs (Absolute) 3.0 x10E3/uL 0.7-3.1 (test code = 731-0) Monocytes(Absolute) 0.6 x10E3/uL 0.1-0.9 (test code = 742-7) Eos (Absolute) (test 0.2 x10E3/uL 0.0-0.4 code = 711-2) Baso (Absolute) (test 0.0 x10E3/uL 0.0-0.2 code = 704-7) Immature Granulocytes 0 % Not Estab. (test code = 23976-6) Immature Grans (Abs) 0.0 x10E3/uL 0.0-0.1 (test code = 35679-4) NRBC (test code = 55370-9) Hematology Comments: (test code = 69050-5) [facility] Description: CBC With Differential/Hobjrgug5816-79-23 06:10:00 Test Item Value Reference Range Interpretation Comments WBC (test code = 7.5 x10E3/uL 3.4-10.8 6690-2) RBC (test code = 4.31 x10E6/uL 3.77-5.28 789-8) Hemoglobin (test code 12.9 g/dL 11.1-15.9 = 718-7) Hematocrit (test code 40.3 % 34.0-46.6 = 4544-3) MCV (test code = 94 fL 79-97 787-2) MCH (test code = 29.9 pg 26.6-33.0 785-6) MCHC (test code = 32.0 g/dL 31.5-35.7 786-4) RDW (test code = 15.1 % 12.3-15.4 Effective 788-0) August 16, 2019 , the RDW pediatr ic reference interval will b e removed and the adult reference interval will b e changing to: Female 11.7 - 1 5.4 Male 11.6 - 15.4

P erf ormed by:
[facility] ([place])

Platelets (test code = 315 x10E3/uL 150-450 777-3) Neutrophils (test code 49 % Not Estab. = 770-8) Lymphs (test code = 40 % Not Estab. 736-9) Monocytes (test code = 9 % Not Estab. 5905-5) Eos (test code = 2 % Not Estab. 713-8) Basos (test code = 0 % Not Estab. 706-2) Neutrophils (Absolute) 3.7 x10E3/uL 1.4-7.0 (test code = 751-8) Lymphs (Absolute) 3.0 x10E3/uL 0.7-3.1 (test code = 731-0) Monocytes(Absolute) 0.6 x10E3/uL 0.1-0.9 (test code = 742-7) Eos (Absolute) (test 0.2 x10E3/uL 0.0-0.4 code = 711-2) Baso (Absolute) (test 0.0 x10E3/uL 0.0-0.2 code = 704-7) Immature Granulocytes 0 % Not Estab. (test code = 56114-1) Immature Grans (Abs) 0.0 x10E3/uL 0.0-0.1 (test code = 13355-5) NRBC (test code = 09436-7) Hematology Comments: (test code = 28890-7) [facility] Description: FSH and [id number] 05:02:00 Test Item Value Reference Range Interpretation Comments LH (test code = 5.8 mIU/mL Adult Fema le: Follicular 34630-5) phase 2.4 - 12. 6 Ovulation phase 14.0 - 95 .6 Luteal phase 1.0 - 11. 4 Postmenopausal 7.7 - 58.5

P erformed by:
[facility] ()

FSH (test code = 3.3 mIU/mL Adult Fema le: Follicular 46999-0) phase 3.5 - 12. 5 Ovulation phase 4.7 - 21. 5 Luteal phase 1.7 - 7.7 Postmenopausal 25.8 - 134.8

Performed by:
[facility] ()

[facility] Description: FSH and [id number] 05:02:00 Test Item Value Reference Range Interpretation Comments LH (test code = 5.8 mIU/mL Adult Femal e: Follicular 45129-4) phase 2.4 - 12. 6 Ovulation phase 14.0 - 95 .6 Luteal phase 1.0 - 11. 4 Postmenopausal 7.7 - 58.5

P erformed by:
[facility] ()

FSH (test code = 3.3 mIU/mL Adult Fem smith: Follicular 41743-4) phase 3.5 - 12. 5 Ovulation phase 4.7 - 21. 5 Luteal phase 1.7 - 7.7 Postmenopausal 25.8 - 134.8

Performed by:
[facility] ()

[facility] Description: FSH and [id number] 05:02:00 Test Item Value Reference Range Interpretation Comments LH (test code = 5.8 mIU/mL Adult Femal e: Follicular 16700-1) phase 2.4 - 12. 6 Ovulation phase 14.0 - 95.6 Luteal pha se 1.0 - 11.4 Postmenopa usal 7.7 - 58.5

P erformed by:
[facility] ()

FSH (test code = 3.3 mIU/mL Adult Fema le: Follicular 00107-9) phase 3.5 - 12. 5 Ovulation phase 4.7 - 21. 5 Luteal phase 1.7 - 7.7 Postmenopausal 25.8 - 134.8

Performed by:
Mery Donovan ()

[facility] Description: FSH and [id number] 05:02:00 Test Item Value Reference Range Interpretation Comments LH (test code = 5.8 mIU/mL Adult Femal e: Follicular 39398-4) phase 2.4 - 12. 6 Ovulation phase 14.0 - 95 .6 Luteal phase 1.0 - 11. 4 Postmenopausal 7.7 - 58.5

P erformed by:
Mery Donovan ()

FSH (test code = 3.3 mIU/mL Adult Fema le: Follicular 62231-3) phase 3.5 - 12. 5 Ovulation phase 4.7 - 21.5 Luteal phase 1. 7 - 7.7 Postmenopausal 25.8 - 134.8

Performed by:
Mery Donovan ()

[employer] Description: FSH and [id number] 05:02:00 Test Item Value Reference Range Interpretation Comments LH (test code = 5.8 mIU/mL Adult Fema le: Follicular 85131-1) phase 2.4 - 12. 6 Ovulation phase 14.0 - 95 .6 Luteal phase 1.0 - 11. 4 Postmenopausal 7.7 - 58.5

P erformed by:
Mery Donovan ()

FSH (test code = 3.3 mIU/mL Adult Fema le: Follicular 62652-1) phase 3.5 - 12. 5 Ovulation phase 4.7 - 21. 5 Luteal phase 1.7 - 7.7 Postmenopausal 25.8 - 134.8

Performed by:
Mery Donovan ()

[facility] Description: FSH and [id number] 05:02:00 Test Item Value Reference Range Interpretation Comments LH (test code = 5.8 mIU/mL Adult Femal e: Follicular 29400-0) phase 2.4 - 12. 6 Ovulation phase 14.0 - 95 .6 Luteal phase 1.0 - 11. 4 Postmenopausal 7.7 - 58.5

P erformed by:
[facility] ([place])

FSH (test code = 3.3 mIU/mL Adult Fem smith: Follicular 54232-0) phase 3.5 - 12. 5 Ovulation phase 4.7 - 21. 5 Luteal phase 1.7 - 7.7 Postmenopausal 25.8 - 134.8

Performed by:
[facility] ([place])

[facility]- US TRANSVAGINAL NON [id number] 10:06:00 Patient Name: RHEA SPARKS Unit No: [id number] EXAMS: CPT CODE: [id number] [place] [id number] LOCATION: T18 EXAM: - US TRANSVAGINAL NON OB EXAM: - US PELVIS COMPLETE INDICATION: BLEEDING, HEADACHE, BLOATING, NAUSEA COMPARISON: None. TECHNIQUE: Real-time grayscale sonographic transabdominal and transvaginal images of the complete pelvis are submitted for interpretation. FINDINGS: U terus measures 9.4 x 4.7 x 6.2 cm. Uterus is anteverted. Echogenic thickening of the endometrium extending towards the fundus measuring up to 1.5 cm. Consider endometrial polyp. No focal abnormality uterus or endometrium is seen. Right ovary measures 3.1 x 2.3 x 2.9 cm. Left ovary measures 2.4 x 1.5 x2.1 cm. Normal venous and arterial waveforms of the ovaries noted. No adnexal mass or free fluid isseen. IMPRESSION: Echogenic smooth endometrial thickening measuring up to 1.5 cm. Consider MRI of the pelvis for further evaluation. at 1006 Reported and signed by: Mi Early MD CC: Vielka Reno III, MD; Ramiro Lopez MD Technologist: Shawn Lopez RDMS; [facility] [place] TV1 SN [id number] Transcrpt Date/Tm/Trnsp: 07/23/2019 (1006) [email or web address] Orig Print D/T: S: 07/23/2019 (1009) [facility] NAME: RHEA SPARKS [id number] [facility], [facility]. [address] PHYS: [place] [address] : 1980 AGE: 38 SEX: F LOC: YOGI PHONE #: [phone] EXAM DATE: 07/23/2019 STATUS: REG CLI FAX #: [phone] RADIOLOGY NO: PAGE 1 Signed Report- US PELVIS [id number] 10:06:00 Patient Name: RHEA SPARKS Unit No: [id number] EXAMS: CPT CODE: [id number] US PELVIS COMPLETE [id number] LOCATION: T18 EXAM: - US TRANSVAGINAL NON OB EXAM: - US PELVIS COMPLETE INDICATION: BLEEDING, HEADACHE, BLOATING, NAUSEA COMPARISON: None. TECHNIQUE: Real-time grayscale sonographic transabdominal and transvaginal images of the complete pelvis are submitted for interpretation. FINDINGS: Uterus measures 9.4 x 4.7 x 6.2 cm. Uterus is anteverted. Echogenic thickening of the endometrium extending towards the fundus measuring up to 1.5 cm. Consider endometrial polyp. No focal abnormality uterus or endometrium is seen. Right ovary measures 3.1 x 2.3 x 2.9 cm. Left ovary measures 2.4 x 1.5 x 2.1 cm. Normal venous and arterial waveforms of the ovaries noted. No adnexal mass or free fluid is seen. IMPRESSION: Echogenic smooth endometrial thickening measuring up to 1.5 cm. Consider MRI of the pelvis for further evaluation. at 1006 Reported and signed by: Mi Early MD CC: Vielka Reno III, MD; Ramiro Lopze MD Technologist: Shawn Lopez RDMS Transcrpt Date/Tm/Trnsp: 07/23/2019 (1006) [email or web address].[email or web address] Orig Print D/T: S: 07/23/2019 (1009) [facility] NAME: RHEA SPARKS [id number] [facility], [facility] [address] PHYS: [place] [address] : 1980 AGE: 38 SEX: F : YOGI PHONE #: [phone] EXAM DATE: 07/23/2019 STATUS: REG CLI FAX #: [phone] RADIOLOGY NO: PAGE 1 Signed ReportTHYROID PANEL/SCREEN (TSH) *WW*2019-07-06 15:53:00 Test Item Value Reference Range Interpretation Comments TSH (test code = WTSH) 0.972 uIU/mL 0.358-3.740 CBC (INCLUDES AUTOMATED DIFFERENTIAL)*[id number] 15:26:00 Test Item Value Reference Range Interpretation Comments WBC (test code = WBC) 7.5 10\\S\\3/uL 4.5-11.0 RBC (test code = RBC) 4.21 10\\S\\6/uL 4.30-5.70 L HGB (test code = HBG) 12.9 g/dL 12.0-15.5 HCT (test code = HCT) 38.5 % 35.0-44.0 MCV (test code = MCV) 91.4 fL 81.0-99.0 MCH (test code = MCH) 30.6 pg 27.0-31.0 MCHC (test code = MCHC) 33.5 g/dL 32.0-36.0 RDW (test code = RDW) 13.8 % 11.5-14.5 PLT (test code = PLT) 323 10\\S\\3/uL 130-400 MPV (test code = MPV) 10.6 fL 9.4-12.4 NEUTROP # (test code = NE#) 4.1 10\\S\\3/uL 1.6-8.0 LYMPH # (test code = LY#) 2.6 10\\S\\3/uL 1.1-3.5 MONOCYTE # (test code = MO#) 0.7 10\\S\\3/uL 0.0-1.1 EOSINOPH # (test code = EO#) 0.2 10\\S\\3/uL 0.0-0.7 BASOPHIL # (test code = BA#) 0.0 10\\S\\3/uL 0.0-0.3 IG # (test code = IG#) 0.02 10\\S\\3/uL 0.00-0.06 NRBC # (test code = NRBC#) 0.00 10\\S\\3/uL 0.00-0.01 NEUTROPH % (test code = NE%) 53.9 % 35.0-73.0 LYMPH % (test code = LY%) 34.1 % 20.0-55.0 MONO % (test code = MO%) 9.0 % 2.5-10.0 EOSINOPH % (test code = EO%) 2.3 % 0.0-5.0 BASOPHIL % (test code = BA%) 0.4 % 0.0-2.0 IG % (test code = IG%) 0.3 % 0.0-0.8 NRBC% (test code = NRBC%) 0.0 % 0.0-0.2 MANDIFF (test code = WMDIFF) NO NO RBC MORPH (test code = NORMAL WRBCMOR) CT FACIAL W/O [id number] 09:30:07Maxillofacial CT without contrast.CLINICAL HISTORY: Severe right ear painCOMMENT: Helical CT of the m axillofacial structures and paranasal sinuses wasperformed without contrast. Thin section axial, coronal, and sagittallyoriented images were obtained.There is no acute facial fracture. The orbits and globes are intact. Paranasalsinuses are clear. The skull base is intact.The bilateral external auditory canals are within normal limits. Ossicularchain appears intact. Mastoid air cells are unremarkable.IMPRESSION: 1. No acute abnormality.XR SHOULDER LEFT 3 VIEWS 2019-05-19 13:24:04Left shoulder, 3 viewsLocation Code: [id number] HISTORY: Pain of left shoulder jointCOMMENTS: AP views in internal and external rotation along with a transscapularY view of the left shoulder were obtained. There is no acute fracture ormalalignment. The soft tissues are unremarkable.IMPRESSION: No acute abnormality.XR SHOULDER RIGHT 3 VIEWS 2019-05-19 12:47:21Right shoulder, 3 viewsLocation Code: [id number] HISTORY: [id number]: Pain of right shoulder jointCOMMENTS: AP views in internal and external rotation along with a transscapularY view of the right shoulder were obtained. There is no acute fracture ormalalignment. The soft tissues are unremarkable.IMPRESSION: No acute abnormality.U/S PELVIS2019-05-14 13:18:25PELVIC ULTRASOUND:Location code: [id number] HISTORY: Ovarian cystComparison: NoneTECHNIQUE: Transabdominal sonography of the pelvis was performed FINDINGS: The uterus is uniform in echogenicity measuring 9.5 x 6.5 x 5.5 cm. The endometrium is unremarkable at 11 mm. The right ovary measures 3.0 x 4.3 x1.4 cm. The left ovary measures 2.2 x 2.5x 2.2 cm. Small follicles are noted bilaterally. Color flowis normal in theovaries bilaterally. There is no adnexal mass. Trace free fluid noted. IMPRESSION:Trace free fluid. No definite ovarian cyst noted.BASIC METABOLIC PANEL 2019-05-14 06:06:00 Test Item Value Reference Range Interpretation Comments GLUCOSE (test code = 06D) 80 mg/dL 75-100 SODIUM (test code = 01A) 139 mmol/L 136-145 POTASSIUM (test code = 01B) 4.5 mmol/L 3.6-5.1 CHLORIDE (test code = 04A) 111 mmol/L 98-107 H CO2 (test code = 02A) 23 mmol/L 22-32 ANION GAP (test code = ANG) 9.5 mmol/L BUN (test code = 05D) 10 mg/dL 7-18 CREATININE (test code = 03E) 0.7 mg/dL 0.4-1.1 BUN/CREA (test code = BCR) 15 12-20 CALCIUM (test code = 09D) 7.3 mg/dL 8.3-9.5 L CBC (INCLUDES AUTOMATED DIFFERENTIAL)*[id number] 05:43:00 Test Item Value Reference Range Interpretation Comments WBC (test code = WBC) 6.5 10\\S\\3/uL 4.5-11.0 RBC (test code = RBC) 3.73 10\\S\\6/uL 4.30-5.70 L HGB (test code = HBG) 11.2 g/dL 12.0-15.5 L HCT (test code = HCT) 35.1 % 35.0-44.0 MCV (test code = MCV) 94.1 fL 81.0-99.0 MCH (test code = MCH) 30.0 pg 27.0-31.0 MCHC (test code = MCHC) 31.9 g/dL 32.0-36.0 L RDW (test code = RDW) 14.0 % 11.5-14.5 PLT (test code = PLT) 249 10\\S\\3/uL 130-400 MPV (test code = MPV) 12.0 fL 9.4-12.4 NEUTROP # (test code = NE#) 3.5 10\\S\\3/uL 1.6-8.0 LYMPH # (test code = LY#) 2.2 10\\S\\3/uL 1.1-3.5 MONOCYTE # (test code = MO#) 0.5 10\\S\\3/uL 0.0-1.1 EOSINOPH # (test code = EO#) 0.3 10\\S\\3/uL 0.0-0.7 BASOPHIL # (test code = BA#) 0.0 10\\S\\3/uL 0.0-0.3 IG # (test code = IG#) 0.01 10\\S\\3/uL 0.00-0.06 NRBC # (test code = NRBC#) 0.00 10\\S\\3/uL 0.00-0.01 NEUTROPH % (test code = NE%) 53.7 % 35.0-73.0 LYMPH % (test code = LY%) 34.3 % 20.0-55.0 MONO % (test code = MO%) 7.2 % 2.5-10.0 EOSINOPH % (test code = EO%) 4.3 % 0.0-5.0 BASOPHIL % (test code = BA%) 0.3 % 0.0-2.0 IG % (test code = IG%) 0.2 % 0.0-0.8 NRBC% (test code = NRBC%) 0.0 % 0.0-0.2 MANDIFF (test code = WMDIFF) NO NO RBC MORPH (test code = NORMAL WRBCMOR) AMYLASE AND LIPASE *WW*2019-05-13 06:09:00 Test Item Value Reference Range Interpretation Comments AMYLASE (test code = 10A) 52 U/L 28-100 LIPASE (test code = 60A) 154 IU/L 73-393 BASIC METABOLIC PANEL 2019-05-13 06:05:00 Test Item Value Reference Range Interpretation Comments GLUCOSE (test code = 06D) 81 mg/dL 75-100 SODIUM (test code = 01A) 139 mmol/L 136-145 POTASSIUM (test code = 01B) 3.7 mmol/L 3.6-5.1 CHLORIDE (test code = 04A) 107 mmol/L 98-107 CO2 (test code = 02A) 26 mmol/L 22-32 ANION GAP (test code = ANG) 9.7 mmol/L BUN (test code = 05D) 10 mg/dL 7-18 CREATININE (test code = 03E) 0.8 mg/dL 0.4-1.1 BUN/CREA (test code = BCR) 13 12-20 CALCIUM (test code = 09D) 7.6 mg/dL 8.3-9.5 L CBC (INCLUDES AUTOMATED DIFFERENTIAL)*[id number] 06:04:00 Test Item Value Reference Range Interpretation Comments WBC (test code = WBC) 6.3 10\\S\\3/uL 4.5-11.0 RBC (test code = RBC) 4.18 10\\S\\6/uL 4.30-5.70 L HGB (test code = HBG) 12.6 g/dL 12.0-15.5 HCT (test code = HCT) 39.2 % 35.0-44.0 MCV (test code = MCV) 93.8 fL 81.0-99.0 MCH (test code = MCH) 30.1 pg 27.0-31.0 MCHC (test code = MCHC) 32.1 g/dL 32.0-36.0 RDW (test code = RDW) 14.3 % 11.5-14.5 PLT (test code = PLT) 243 10\\S\\3/uL 130-400 MPV (test code = MPV) 11.4 fL 9.4-12.4 NEUTROP # (test code = NE#) 3.4 10\\S\\3/uL 1.6-8.0 LYMPH # (test code = LY#) 2.0 10\\S\\3/uL 1.1-3.5 MONOCYTE # (test code = MO#) 0.7 10\\S\\3/uL 0.0-1.1 EOSINOPH # (test code = EO#) 0.1 10\\S\\3/uL 0.0-0.7 BASOPHIL # (test code = BA#) 0.0 10\\S\\3/uL 0.0-0.3 IG # (test code = IG#) 0.02 10\\S\\3/uL 0.00-0.06 NRBC # (test code = NRBC#) 0.00 10\\S\\3/uL 0.00-0.01 NEUTROPH % (test code = NE%) 54.4 % 35.0-73.0 LYMPH % (test code = LY%) 32.0 % 20.0-55.0 MONO % (test code = MO%) 10.7 % 2.5-10.0 H EOSINOPH % (test code = EO%) 2.1 % 0.0-5.0 BASOPHIL % (test code = BA%) 0.5 % 0.0-2.0 IG % (test code = IG%) 0.3 % 0.0-0.8 NRBC% (test code = NRBC%) 0.0 % 0.0-0.2 MANDIFF (test code = WMDIFF) NO NO RBC MORPH (test code = NORMAL WRBCMOR) CT ABDOMEN AND PELVIS WITH CONTRAST*WW*2019-05-12 19:55:46Location code: A 1CT Abdomen and Pelvis with ContrastIndication: mid abdominal pain.Comparison: 05/04.Technical factors: Axial images were obtained with contrast. Sagittal andcoronal reconstruction.This exam was performed according to our departmental dose-optimizationprogram, which includes automated exposure control, adjustment of the mA and/orkV according to patient size and/or use of iterative reconstruction technique.Contrast; 97 cc Omnipaque 300 IV.Findings:Lung bases are clear with no pleural effusionThe liver is normal in appearance. The biliary ducts are not dilated. No focallesion is seen.Cholecystectomy.The spleen is unremarkable.The adrenal glands ar unremarkable.The pancreas is unre markable.Single punctate right renal calculus. Subcentimeter right renal cyst. Nohydronephrosis or hydroureter. IVC is unremarkable. Abdominal aorta is unremarkable for age.Bowel is unremarkable. Appendix is not seen. Question of appendectomy.Urinary bladder is unremarkable.Uterus and adnexa are unrema rkable.Collapse follicular cyst in the right adnexa. Small fluid in the cul-de-sac.Abdominal-pelvic wall is intact. Skeletal structures are normal for patient age.No abnormal enhancing lesion is seen.Impression:1. Single punctate nonobstructing right renal calculus. No hydronephrosis orhydroureter2. Castle bcentimeter right renal cyst does not require follow-up.3. Collapsed right ovarian follicular cyst with small fluid in the dum-ao-cpdetsegvdce to physiological follicular cyst rupture.URINALYSIS WITH MICRO *WW*2019-05-12 18:43:00 Test Item Value Reference Range Interpretation Comments COLOR (test code = COLU) YELLOW YELLOW CLARITY (test code = CLA) SLT HAZY CLEAR A GLUCOSE UR (test code = UA GLUCOSE) NEGATIVE NEGATIVE BILI UR (test code = BILE) NEGATIVE NEGATIVE KETONES UR (test code = ZULMA) NEGATIVE NEGATIVE SP GRAVITY (test code = SPGR) 1.025 1.005-1.030 PH UR (test code = PH) 6.0 4.5-8.0 PROTEIN UR (test code = PU) NEGATIVE NEGATIVE UROBIL UR (test code = UROQ) 0.2 EU/dL 0.2-1.0 NITRITE UR (test code = NITRITE) NEGATIVE NEGATIVE BLOOD UR (test code = UA BLOOD) NEGATIVE NEGATIVE LEUK ES UR (test code = LEUK) TRACE NEGATIVE A WBC UR (test code = UWBC) 6 /HPF 0-5 H RBC UR (test code = URBC) 3 /HPF 0-2 H EPITH UR (test code = UEPC) FEW /LPF FEW BACTERIA UR (test code = UBACT) FEW /HPF NONE A CAST UR (test code = CAST) /LPF NONE CRYSTAL UR (test code = CRYU) / LPF NONE MUCUS UR (test code = MUC) FEW / HPF NONE A AMORPH UR (test code = MODE) / HPF NONE TRICH UR (test code = UTRICH) /HPF NONE YEAST UR (test code = UY) /HPF NONE SPERM UR (test code = USPERM) /HPF NONE AMYLASE AND LIPASE *WW*2019-05-12 18:35:00 Test Item Value Reference Range Interpretation Comments AMYLASE (test code = 10A) 86 U/L 28-100 LIPASE (test code = 60A) 394 IU/L 73-393 H COMPREHENSIVE METABOLIC HARRISON *WW*2019-05-12 18:35:00 Test Item Value Reference Range Interpretation Comments GLUCOSE (test code = 06D) 103 mg/dL 75-100 H SODIUM (test code = 01A) 139 mmol/L 136-145 POTASSIUM (test code = 01B) 4.0 mmol/L 3.6-5.1 CHLORIDE (test code = 04A) 107 mmol/L 98-107 CO2 (test code = 02A) 24 mmol/L 22-32 ANION GAP (test code = ANG) 12.0 mmol/L BUN (test code = 05D) 15 mg/dL 7-18 CREATININE (test code = 03E) 0.9 mg/dL 0.4-1.1 BUN/CREA (test code = BCR) 17 12-20 CALCIUM (test code = 09D) 8.2 mg/dL 8.3-9.5 L BILI TOTAL (test code = 11A) 0.4 mg/dL 0.2-1.0 PROTEIN (test code = 07D) 7.7 g/dL 6.4-8.2 ALBUMIN (test code = 08D) 3.8 g/dL 3.5-4.8 GLOBULIN (test code = GLB) 3.9 g/dL 1.5-3.8 H ALB/GLOB (test code = AGRR) 1.0 1.0-2.6 ALK PHOS (test code = 35A) 68 IU/L 42-121 AST (test code = 30A) 87 IU/L <=42 H ALT (test code = 31A) 126 IU/L <=78 H SERUM MONOCLONAL *WW*2019-05-12 18:26:00 Test Item Value Reference Range Interpretation Comments PREG SRM (test code = PGS) NEGATIVE NEGATIVE CBC (INCLUDES AUTOMATED DIFFERENTIAL)*[id number] 18:23:00 Test Item Value Reference Range Interpretation Comments WBC (test code = WBC) 8.4 10\\S\\3/uL 4.5-11.0 RBC (test code = RBC) 4.55 10\\S\\6/uL 4.30-5.70 HGB (test code = HBG) 13.8 g/dL 12.0-15.5 HCT (test code = HCT) 41.5 % 35.0-44.0 MCV (test code = MCV) 91.2 fL 81.0-99.0 MCH (test code = MCH) 30.3 pg 27.0-31.0 MCHC (test code = MCHC) 33.3 g/dL 32.0-36.0 RDW (test code = RDW) 14.0 % 11.5-14.5 PLT (test code = PLT) 292 10\\S\\3/uL 130-400 MPV (test code = MPV) 11.2 fL 9.4-12.4 NEUTROP # (test code = NE#) 4.7 10\\S\\3/uL 1.6-8.0 LYMPH # (test code = LY#) 2.8 10\\S\\3/uL 1.1-3.5 MONOCYTE # (test code = MO#) 0.7 10\\S\\3/uL 0.0-1.1 EOSINOPH # (test code = EO#) 0.2 10\\S\\3/uL 0.0-0.7 BASOPHIL # (test code = BA#) 0.0 10\\S\\3/uL 0.0-0.3 IG # (test code = IG#) 0.02 10\\S\\3/uL 0.00-0.06 NRBC # (test code = NRBC#) 0.00 10\\S\\3/uL 0.00-0.01 NEUTROPH % (test code = NE%) 56.1 % 35.0-73.0 LYMPH % (test code = LY%) 33.1 % 20.0-55.0 MONO % (test code = MO%) 7.7 % 2.5-10.0 EOSINOPH % (test code = EO%) 2.4 % 0.0-5.0 BASOPHIL % (test code = BA%) 0.5 % 0.0-2.0 IG % (test code = IG%) 0.2 % 0.0-0.8 NRBC% (test code = NRBC%) 0.0 % 0.0-0.2 MANDIFF (test code = WMDIFF) NO NO RBC MORPH (test code = NORMAL WRBCMOR) CT ABDOMEN AND PELVIS WITH [id number] 18:23:30LOCATION: S44NETC: CT ABDOMEN AND PELVIS WITH CONTRASTHISTORY: [id number]: Abdominal pain TECHNIQUE: Ax ial imaging of the abdomen and pelvis from the lung base to thepubic symphysis following administration of 98 cc Omnipaque 300 intravenouscontrast. Venous and delayed phase images are obtained. Sagittal and coronalreconstructions. CT scan performed using appropriate/available dose optimization/reductiontechniques.DLP 1081 mGy*cmCOMPARISON: CT abdomen and pelvis without contrast 02/20/2019FINDINGS:Lungbase:The visualized lung base is clear. The heart size is normal. Nopericardial or pleural effusion is present. Liver/spleen: Unremarkable.Biliary system: The gallbladder is surgically absent. No biliary ductdilatation.Pancreas: Unremarkable.Adrenal glands: Normal. Kidneys: Punctate nonobstructing renal calculi are present at the left lowerpole and diffusely in the right kidney. No hydronephrosis or perinephric fluidis present. The ureter are nondilated only visible. There are no suspiciouscalcifications along the course of either ureter to indicate ureterolithiasis.An 8 mm anterior right midpole cortical low-density lesion is too small tocharacterize, but likely represents a small cyst.Vascular: Mild atherosclerosis along the normal caliber abdominal aorta. Normalportal venous opacification.Lymph nodes: No abdominal lymphadenopathy. Pelvic structures: The urinary bladder is unremarkably distende d. No pelviclymphadenopathy. Small pelvic free fluid is present in the cul-de-sac.Gastrointestinal tract: No abnormal bowel dilatation. The appendix issurgically absent. No focal fluid collections, ascites or evidence ofpneumoperitoneum. Bones and soft tissues: The osseous structures are intact.IMPRESSION:1. Nonobstructing bilateral renal calculi.2. Small, nonspecific dependent pelvic free fluid is present, which may bephysiologic in a patient of this age.3. Additional stable chronic findings as above. COMPREHENSIVE METABOLIC [id number] 17:59:00 Test Item Value Reference Range Interpretation Comments GLUCOSE (test code = 06D) 91 mg/dL 75-100 SODIUM (test code = 01A) 140 mmol/L 136-145 POTASSIUM (test code = 01B) 3.9 mmol/L 3.6-5.1 CHLORIDE (test code = 04A) 107 mmol/L 98-107 CO2 (test code = 02A) 28 mmol/L 22-32 ANION GAP (test code = ANG) 8.9 mmol/L BUN (test code = 05D) 10 mg/dL 7-18 CREATININE (test code = 03E) 0.9 mg/dL 0.4-1.1 BUN/CREA (test code = BCR) 11 12-20 L CALCIUM (test code = 09D) 8.4 mg/dL 8.3-9.5 BILI TOTAL (test code = 11A) <0.1 mg/dL 0.2-1.0 L PROTEIN (test code = 07D) 6.3 g/dL 6.4-8.2 L ALBUMIN (test code = 08D) 3.0 g/dL 3.5-4.8 L GLOBULIN (test code = GLB) 3.3 g/dL 1.5-3.8 ALB/GLOB (test code = AGRR) 0.9 1.0-2.6 L ALK PHOS (test code = 35A) 47 IU/L 42-121 AST (test code = 30A) 10 IU/L <=42 ALT (test code = 31A) 13 IU/L <=78 [id number] 17:59:00 Test Item Value Reference Range Interpretation Comments AMYLASE (test code = 10A) 43 U/L 28-100 TROPONIN [id number] 17:59:00 Test Item Value Reference Range Interpretation Comments TROPONIN I (test code = A84) <0.015 ng/mL 0.000-0.045 LIPASE [id number] 17:54:00 Test Item Value Reference Range Interpretation Comments LIPASE (test code = 60A) 66 IU/L 73-393 L URINALYSIS WITH [id number] 17:54:00 Test Item Value Reference Range Interpretation Comments COLOR (test code = COLU) YELLOW YELLOW CLARITY (test code = CLA) HAZY CLEAR A GLUCOSE UR (test code = UA NEGATIVE NEGATIVE GLUCOSE) BILI UR (test code = BILE) NEGATIVE NEGATIVE KETONES UR (test code = ZULMA) NEGATIVE NEGATIVE SP GRAVITY (test code = SPGR) 1.020 1.005-1.030 PH UR (test code = PH) 6.0 4.5-8.0 PROTEIN UR (test code = PU) NEGATIVE NEGATIVE UROBIL UR (test code = UROQ) 0.2 EU/dL 0.2-1.0 NITRITE UR (test code = NEGATIVE NEGATIVE NITRITE) BLOOD UR (test code = UA BLOOD) NEGATIVE NEGATIVE LEUK ES UR (test code = LEUK) 1+ NEGATIVE A WBC UR (test code = UWBC) 3 /HPF 0-5 RBC UR (test code = URBC) 1 /HPF 0-2 EPITH UR (test code = UEPC) MODERATE /LPF FEW A BACTERIA UR (test code = UBACT) NONE /HPF NONE CAST UR (test code = CAST) /LPF NONE CRYSTAL UR (test code = CRYU) / LPF NONE MUCUS UR (test code = MUC) / HPF NONE AMORPH UR (test code = MODE) / HPF NONE TRICH UR (test code = UTRICH) /HPF NONE YEAST UR (test code = UY) /HPF NONE SPERM UR (test code = USPERM) /HPF NONE PRO TIME AND [id number] 17:51:00 Test Item Value Reference Range Interpretation Comments PT (test code = 10.3 s 9.8-13.6 TT) INR (test code = 0.9 INR) INRH (test code = SUGGESTED THERAPEUTIC INRH) RANGE FOR INR: 2.5 - 3.5 For Patients with Prosthetic Valves or Patients with recurrent Thromboembolic Events 2.0 - 3.0 For Most Other Applications PTT (test code = 32.4 s 20.2-38.0 PTT) PTTH (test code = To monitor the PTTH) effectiveness of heparin, we offer the Anti-Xa (Heparin Assay). It can be used for either unfractionated or LMW Heparin. Order Code is ANTI-XA URINE [id number] 17:48:00 Test Item Value Reference Range Interpretation Comments PREG UR (test code = PGU) NEGATIVE NEGATIVE CBC (INCLUDES AUTOMATED DIFFERENTIAL)2019-05-04 17:45:00 Test Item Value Reference Range Interpretation Comments WBC (test code = WBC) 6.1 10\\S\\3/uL 4.5-11.0 RBC (test code = RBC) 4.26 10\\S\\6/uL 4.30-5.70 L HGB (test code = HBG) 12.7 g/dL 12.0-15.5 HCT (test code = HCT) 39.1 % 35.0-44.0 MCV (test code = MCV) 91.8 fL 81.0-99.0 MCH (test code = MCH) 29.8 pg 27.0-31.0 MCHC (test code = MCHC) 32.5 g/dL 32.0-36.0 RDW (test code = RDW) 13.9 % 11.5-14.5 PLT (test code = PLT) 225 10\\S\\3/uL 130-400 MPV (test code = MPV) 11.6 fL 9.4-12.4 NEUTROP # (test code = NE#) 2.8 10\\S\\3/uL 1.6-8.0 LYMPH # (test code = LY#) 2.5 10\\S\\3/uL 1.1-3.5 MONOCYTE # (test code = MO#) 0.6 10\\S\\3/uL 0.0-1.1 EOSINOPH # (test code = EO#) 0.2 10\\S\\3/uL 0.0-0.7 BASOPHIL # (test code = BA#) 0.0 10\\S\\3/uL 0.0-0.3 IG # (test code = IG#) 0.02 10\\S\\3/uL 0.00-0.06 NRBC # (test code = NRBC#) 0.00 10\\S\\3/uL 0.00-0.01 NEUTROPH % (test code = NE%) 46.3 % 35.0-73.0 LYMPH % (test code = LY%) 40.4 % 20.0-55.0 MONO % (test code = MO%) 9.4 % 2.5-10.0 EOSINOPH % (test code = EO%) 3.3 % 0.0-5.0 BASOPHIL % (test code = BA%) 0.3 % 0.0-2.0 IG % (test code = IG%) 0.3 % 0.0-0.8 NRBC% (test code = NRBC%) 0.0 % 0.0-0.2 MANDIFF (test code = MDIFF) NO NO RBC MORPH (test code = RBCMOR) NORMAL CT STONE PROTOCOL [id number] 20:05:41CT abdomen and pelvis without IV contrast.Indication: Flank painLocation: [id number]: 12/05/2018Technique: CT images of the abdomen and pelvis were obtained from the diaphragmto the pubic symphysis without the administration of intravenous contrastcontrast. Coronal reformats are provided.One or moreof the following dose reduction techniques were used: Automatedexposure control, adjustment of the mA and/or kV according to patient size,and/or utilization of iterative reconstruction technique. Total DLP: 594mGy-cm.Findings:Lungs bases: Unremarkable.Liver: Surgically absent.Gallbladder: Unremarkable.Pancreas: Unremarkable.Spleen: Unremarkable.Adrenal glands: Unremarkable.Kidneys: There are bilateral renal calculi measuring up to 3 mm on the right.There is no hydronephrosis or hydroureter. No ureteral calculi aredemonstrated.Bowel: There is no bowel obstruction. Chain sutures are seen at the cecalbase, likely from prior appendectomy.Peritoneum: There is trace pelvic ascites, likely physiologic. Th ere is nopneumoperitoneum. Pelvis: The urinary bladder is under distended, limiting assessment. Theanteverted uterus appears unremarkable. There is no adnexal mass.Vascular: There are mild arterial atherosclerotic calcifications. There is noabdominal aortic aneurysm.Skeletal: There is no acute osseous abnormality.Impression:1. Bilateral nephrolithiasis without evidence of obstructive uropathy.2. Additional chronic findings as above.AMYLASE AND LIPASE 2019-02-20 19:14:00 Test Item Value Reference Range Interpretation Comments AMYLASE (test code = 10A) 77 U/L 28-100 LIPASE (test code = 60A) 297 IU/L 73-393 COMPREHENSIVE METABOLIC [id number] 19:14:00 Test Item Value Reference Range Interpretation Comments GLUCOSE (test code = 06D) 121 mg/dL 75-100 H SODIUM (test code = 01A) 141 mmol/L 136-145 POTASSIUM (test code = 01B) 3.9 mmol/L 3.6-5.1 CHLORIDE (test code = 04A) 108 mmol/L 98-107 H CO2 (test code = 02A) 26 mmol/L 22-32 ANION GAP (test code = ANG) 10.9 mmol/L BUN (test code = 05D) 10 mg/dL 7-18 CREATININE (test code = 03E) 0.9 mg/dL 0.4-1.1 BUN/CREA (test code = BCR) 11 12-20 L CALCIUM (test code = 09D) 8.3 mg/dL 8.3-9.5 BILI TOTAL (test code = 11A) 0.1 mg/dL 0.2-1.0 L PROTEIN (test code = 07D) 6.7 g/dL 6.4-8.2 ALBUMIN (test code = 08D) 3.2 g/dL 3.5-4.8 L GLOBULIN (test code = GLB) 3.5 g/dL 1.5-3.8 ALB/GLOB (test code = AGRR) 0.9 1.0-2.6 L ALK PHOS (test code = 35A) 57 IU/L 42-121 AST (test code = 30A) 119 IU/L <=42 H ALT (test code = 31A) 64 IU/L <=78 SERUM [id number] 19:06:00 Test Item Value Reference Range Interpretation Comments PREG SRM (test code = PGS) NEGATIVE NEGATIVE [id number] 19:02:00 Test Item Value Reference Range Interpretation Comments COLOR (test code = COLU) YELLOW YELLOW CLARITY (test code = CLA) CLEAR CLEAR GLUCOSE UR (test code = UA GLUCOSE) NEGATIVE NEGATIVE BILI UR (test code = BILE) NEGATIVE NEGATIVE KETONES UR (test code = ZULMA) NEGATIVE NEGATIVE SP GRAVITY (test code = SPGR) 1.029 1.005-1.030 PH UR (test code = PH) 6.0 4.5-8.0 PROTEIN UR (test code = PU) NEGATIVE NEGATIVE UROBIL UR (test code = UROQ) 0.2 EU/dL 0.2-1.0 NITRITE UR (test code = NITRITE) NEGATIVE NEGATIVE BLOOD UR (test code = UA BLOOD) NEGATIVE NEGATIVE LEUK ES UR (test code = LEUK) NEGATIVE NEGATIVE CBC (INCLUDES AUTOMATED DIFFERENTIAL)2019-02-20 19:00:00 Test Item Value Reference Range Interpretation Comments WBC (test code = WBC) 10.0 10\\S\\3/uL 4.5-11.0 RBC (test code = RBC) 4.04 10\\S\\6/uL 4.30-5.70 L HGB (test code = HBG) 12.2 g/dL 12.0-15.5 HCT (test code = HCT) 37.4 % 35.0-44.0 MCV (test code = MCV) 92.6 fL 81.0-99.0 MCH (test code = MCH) 30.2 pg 27.0-31.0 MCHC (test code = MCHC) 32.6 g/dL 32.0-36.0 RDW (test code = RDW) 13.7 % 11.5-14.5 PLT (test code = PLT) 232 10\\S\\3/uL 130-400 MPV (test code = MPV) 11.7 fL 9.4-12.4 NEUTROP # (test code = NE#) 7.0 10\\S\\3/uL 1.6-8.0 LYMPH # (test code = LY#) 2.0 10\\S\\3/uL 1.1-3.5 MONOCYTE # (test code = MO#) 0.7 10\\S\\3/uL 0.0-1.1 EOSINOPH # (test code = EO#) 0.3 10\\S\\3/uL 0.0-0.7 BASOPHIL # (test code = BA#) 0.0 10\\S\\3/uL 0.0-0.3 IG # (test code = IG#) 0.04 10\\S\\3/uL 0.00-0.06 NRBC # (test code = NRBC#) 0.00 10\\S\\3/uL 0.00-0.01 NEUTROPH % (test code = NE%) 69.9 % 35.0-73.0 LYMPH % (test code = LY%) 19.9 % 20.0-55.0 L MONO % (test code = MO%) 7.0 % 2.5-10.0 EOSINOPH % (test code = EO%) 2.5 % 0.0-5.0 BASOPHIL % (test code = BA%) 0.3 % 0.0-2.0 IG % (test code = IG%) 0.4 % 0.0-0.8 NRBC% (test code = NRBC%) 0.0 % 0.0-0.2 MANDIFF (test code = MDIFF) NO NO RBC MORPH (test code = RBCMOR) NORMAL COMPREHENSIVE METABOLIC [id number] 15:21:00 Test Item Value Reference Range Interpretation Comments TOTAL PROTEIN 7.2 gm/dL 6.0-8.5 (BEAKER) (test code = 770) ALBUMIN (BEAKER) 3.8 g/dL 3.5-5.0 (test code = 1145) ALKALINE PHOSPHATASE 66 U/L 30-115 (BEAKER) (test code = 346) BILIRUBIN TOTAL 0.2 mg/dL 0.1-1.2 (BEAKER) (test code = 377) SODIUM (BEAKER) (test 140 meq/L 135-148 code = 381) POTASSIUM (BEAKER) 4.4 meq/L 3.6-5.5 (test code = 379) CHLORIDE (BEAKER) 109 meq/L 98-106 H (test code = 382) CO2 (BEAKER) (test 22 meq/L 20-29 code = 355) BLOOD UREA NITROGEN 9 mg/dL 10-26 L (BEAKER) (test code = 354) CREATININE (BEAKER) 0.76 mg/dL 0.50-1.20 (test code = 358) GLUCOSE RANDOM 92 mg/dL 70-110 (BEAKER) (test code = 652) CALCIUM (BEAKER) 8.6 mg/dL 8.5-10.5 (test code = 697) AST (SGOT) (BEAKER) 14 U/L 5-40 (test code = 353) ALT (SGPT) (BEAKER) 17 U/L 5-50 (test code = 347) EGFR (BEAKER) (test 85 mL/min/1.73 ESTIMA ABDIAS GFR IS code = 1092) sq m NOT ACCURATE CREATININE CLEARANCE IN PREDICTING GLOMERULAR FILTRATION RATE . ESTIMATED GFR I S NOT APPLICABLE FOR DIALYSIS PATIEN TS. CT, [id number] 15:12:00Reason for exam:->ABDOMINAL PAINReason for exam:->RASHReason for exam:->CONSTIPATIONReason for exam:- >constipation, abdominal pain, post op 2 days from gb removalIs the patient ?->NoWhat is the patient's sedation requirement?->No SedationFINAL REPORT TECHNIQUE: CT of the abdomen and pelvis WITHOUT intravenous contrast and WITHOUT oral contrast. Dose modulation, iterative reconstruction, and/or weight-based adjustment of the mA/kV was utilized to reduce the radiation dose to as low as reasonably achievable. INDICATION: ABDOMINAL PAINRASHCONSTIPATIONconstipation, abdominal pain, post op 2 days from gb removalconstipation, abdominal pain, post op 2 days from gb removal. COMPARISON: CT from 12/26/2016. FINDINGS: ABSENCE OF INTRAVENOUS CONTRAST DECREASES SENSITIVITY FOR DETECTION OF FOCAL LESIONS AND VASCULAR PATHOLOGY. LOWER THORAX: Unremarkable. HEPATOBILIARY: No focal hepatic lesions. Recent cholecystectomy. No biliary ductal dilatation.SPLEEN: No splenomegaly.PANCREAS: No focal masses or ductal dilatation. ADRENALS: No adrenal nodules.KIDNEYS/URETERS: No hydronephrosis or exophytic masses. There are at least two left and five right punctate nonobstructing renal stones. PELVIC ORGANS/BLADDER: Unremarkable. PERITONEUM/RETROPERITONEUM: Trace free fluid in the pelvis. No free air. Inflammation in the right upperquadrant.LYMPH NODES: No lymphadenopathy.VESSELS: Unremarkable. GI TRACT: A very large amount of stool distends the rectum. The mild thickening of the hepatic flexure is likely reactive to the information the right upper quadrant and also likely exaggerated due to nondistention. BONES AND SOFT TISSUES: Unremarkable. IMPRESSION: 1.A very large amount stool distends the rectum. No obstruction. 2.The inflammation in the right upper quadrant was likely within the spectrum of expected postsurgical findings. No fluid collection. 3.Bilateral, nonobstructing punctate renal stones. Signed: Jb Webb MDReport Verified Date/Time: 01/26/2019 15:12:35 Reading Location: [facility] B1 C013Y CT Body Reading Room [id number] 15:09:00 Test Item Value Reference Range Interpretation Comments LIPASE (BEAKER) (test code = 749) 116 U/L 6-51 H [id number] 15:01:00 Test Item Value Reference Range Interpretation Comments AMYLASE (BEAKER) (test code = 349) 70 U/L 30-110 CBC W/PLT COUNT & AUTO [id number] 14:28:00 Test Item Value Reference Range Interpretation Comments WHITE BLOOD CELL COUNT (BEAKER) 9.4 K/ L 4.0-10.0 (test code = 775) RED BLOOD CELL COUNT (BEAKER) 4.51 M/ L 4.00-5.00 (test code = 761) HEMOGLOBIN (BEAKER) (test code = 13.5 GM/DL 12.0-15.5 410) HEMATOCRIT (BEAKER) (test code = 41.4 % 36.0-46.0 411) MEAN CORPUSCULAR VOLUME (BEAKER) 91.8 fL 82.0-99.0 (test code = 753) MEAN CORPUSCULAR HEMOGLOBIN 29.9 pg 27.0-33.0 (BEAKER) (test code = 751) MEAN CORPUSCULAR HEMOGLOBIN CONC 32.6 GM/DL 32.0-36.0 (BEAKER) (test code = 752) RED CELL DISTRIBUTION WIDTH 13.0 % 12.0-15.0 (BEAKER) (test code = 412) PLATELET COUNT (BEAKER) (test 281 K/CU MM 150-430 code = 756) MEAN PLATELET VOLUME (BEAKER) 12.8 fL 6.0-11.5 H (test code = 754) NUCLEATED RED BLOOD CELLS 0 /100 WBC 0-0 (BEAKER) (test code = 413) NEUTROPHILS RELATIVE PERCENT 63 % (BEAKER) (test code = 429) LYMPHOCYTES RELATIVE PERCENT 28 % (BEAKER) (test code = 430) MONOCYTES RELATIVE PERCENT 6 % (BEAKER) (test code = 431) EOSINOPHILS RELATIVE PERCENT 3 % (BEAKER) (test code = 432) BASOPHILS RELATIVE PERCENT 0 % (BEAKER) (test code = 437) NEUTROPHILS ABSOLUTE COUNT 5.92 K/ L 1.80-8.00 (BEAKER) (test code = 670) LYMPHOCYTES ABSOLUTE COUNT 2.62 K/ L 1.48-4.50 (BEAKER) (test code = 414) MONOCYTES ABSOLUTE COUNT (BEAKER) 0.52 K/ L 0.00-1.30 (test code = 415) EOSINOPHILS ABSOLUTE COUNT 0.27 K/ L 0.00-0.50 (BEAKER) (test code = 416) BASOPHILS ABSOLUTE COUNT (BEAKER) 0.03 K/ L 0.00-0.20 (test code = 417) IMMATURE GRANULOCYTES-RELATIVE 0 % 0-0 PERCENT (BEAKER) (test code = 2801) URINALYSIS W/ [id number] 13:55:00 Test Item Value Reference Range Interpretation Comments COLOR (BEAKER) (test code = Yellow 470) CLARITY (BEAKER) (test code = Clear 469) SPECIFIC GRAVITY UA (BEAKER) 1.015 1.001-1.035 (test code = 468) PH UA (BEAKER) (test code = 7.5 5.0-8.0 467) PROTEIN UA (BEAKER) (test code Negative Negative = 464) GLUCOSE UA (BEAKER) (test code Negative Negative = 365) KETONES UA (BEAKER) (test code Negative Negative = 371) BILIRUBIN UA (BEAKER) (test Negative Negative code = 462) BLOOD UA (BEAKER) (test code = Negative Negative 461) NITRITE UA (BEAKER) (test code Negative Negative = 465) LEUKOCYTE ESTERASE UA (BEAKER) Negative Negative (test code = 466) UROBILINOGEN UA (BEAKER) (test 1.0 mg/dL 0.2-1.0 code = 463) BACTERIA (BEAKER) (test code = Few 517) RBC UA-MANUAL (BEAKER) (test None Seen /HPF code = 1659) WBC UA-MANUAL (BEAKER) (test <5 /HPF code = 1661) SQUAMOUS EPITHELIAL MANUAL 5-10 /HPF (BEAKER) (test code = 1663) SOURCE(BEAKER) (test code = 2795) SCREEN, [id number] 13:54:00 Test Item Value Reference Range Interpretation Comments TEST URINE (BEAKER) (test Negative code = 583) TISSUE [id number] 14:40:00Surgical Pathology Report Case: [id number] Authorizing Provider: Dalila Boateng, Collected: 01/19/2019 1258 Ordering Location: [facility] PERIOPERATIVE Received: 01/19/2019 1325 SERVICES Pathol ogist: Ashley Laguerre MD Specimen: Gallbladder, Gall Bladder GALLBLADDER, CHOLECYSTECTOMY: - GALLBLADDER WITH MILD CHRONIC INFLAMMATIONMG/pl Signing Pathologist Direct Phone Line: [phone] signed by Ashley Laguerre MD on 01/20/2019 at 2:40 [id number] aGallbladder The specimen is received in fixative and designated as "gallbladder" and consists of a pink-madison cholecystectomy specimen (7.0 x 3.5 x 2.0 cm). The gallbladder is filled with green viscous bile. However, no gallstones are identified within the specimen or specimen container. The gallbladder mucosa is pink-madison and velvety with no discrete lesions identified. Reporting Developer sections of the gallbladder mucosa and cystic duct are submitted into A1.MG/pl Performed [facility], Department of Pathology, [address] [place] [id number], [facility], Department of Pathology, [address] [place] [address], [facility], [facility], [address] [place] [address], [facility] ABUSE 2018-12-28 08:16:00 Test Item Value Reference Range Interpretation Comments DRUG SCRN (test code = URINE DRUG HDOA) SCREEN This is an unconfirmed screening result and should not be used for non-medical purposes CANNABINOD (test code POSITIVE NEGATIVE A = 88C) AMPHETAMINE (test code POSITIVE NEGATIVE A = 84A) BENZODIAZP (test code POSITIVE NEGATIVE A = 86A) BARBITURAT (test code Negative NEGATIVE = 85A) OPIATES (test code = Negative NEGATIVE 92B) COCAINE (test code = Negative NEGATIVE 87A) PHENCYCLID (test code Negative NEGATIVE = 66A) METHADONE (test code = Negative NEGATIVE 64A) DOAH (test code = DOAH.) URINE DRUG SCREEN Cut-off values are as follows: Cannabinoids 50 ng/mL Cocaine 300 ng/mL Amphetamines 1000 ng/mL Phencyclidine 25 ng/mL Benzodiazepines 200 ng.mL Methadone 300 ng/mL Barbiturates 200 ng/mL Opiates 2000 ng/mL COMPREHENSIVE METABOLIC [id number] 08:09:00 Test Item Value Reference Range Interpretation Comments GLUCOSE (test code = 06D) 105 mg/dL 75-100 H SODIUM (test code = 01A) 142 mmol/L 136-145 POTASSIUM (test code = 01B) 3.7 mmol/L 3.6-5.1 CHLORIDE (test code = 04A) 111 mmol/L 98-107 H CO2 (test code = 02A) 24 mmol/L 22-32 ANION GAP (test code = ANG) 10.7 mmol/L BUN (test code = 05D) 9 mg/dL 7-18 CREATININE (test code = 03E) 0.9 mg/dL 0.4-1.1 BUN/CREA (test code = BCR) 10 12-20 L CALCIUM (test code = 09D) 8.8 mg/dL 8.3-9.5 BILI TOTAL (test code = 11A) 0.7 mg/dL 0.2-1.0 PROTEIN (test code = 07D) 7.6 g/dL 6.4-8.2 ALBUMIN (test code = 08D) 3.9 g/dL 3.5-4.8 GLOBULIN (test code = GLB) 3.7 g/dL 1.5-3.8 ALB/GLOB (test code = AGRR) 1.1 1.0-2.6 ALK PHOS (test code = 35A) 58 IU/L 42-121 AST (test code = 30A) 11 IU/L <=42 ALT (test code = 31A) 14 IU/L <=78 CBC (INCLUDES AUTOMATED DIFFERENTIAL)2018-12-28 08:06:00 Test Item Value Reference Range Interpretation Comments WBC (test code = WBC) 7.6 10\\S\\3/uL 4.5-11.0 RBC (test code = RBC) 4.52 10\\S\\6/uL 4.30-5.70 HGB (test code = HBG) 14.1 g/dL 12.0-15.5 HCT (test code = HCT) 41.7 % 35.0-44.0 MCV (test code = MCV) 92.3 fL 81.0-99.0 MCH (test code = MCH) 31.2 pg 27.0-31.0 H MCHC (test code = MCHC) 33.8 g/dL 32.0-36.0 RDW (test code = RDW) 13.2 % 11.5-14.5 PLT (test code = PLT) 295 10\\S\\3/uL 130-400 MPV (test code = MPV) 11.0 fL 9.4-12.4 NEUTROP # (test code = NE#) 3.7 10\\S\\3/uL 1.6-8.0 LYMPH # (test code = LY#) 3.1 10\\S\\3/uL 1.1-3.5 MONOCYTE # (test code = MO#) 0.7 10\\S\\3/uL 0.0-1.1 EOSINOPH # (test code = EO#) 0.1 10\\S\\3/uL 0.0-0.7 BASOPHIL # (test code = BA#) 0.0 10\\S\\3/uL 0.0-0.3 IG # (test code = IG#) 0.02 10\\S\\3/uL 0.00-0.06 NRBC # (test code = NRBC#) 0.00 10\\S\\3/uL 0.00-0.01 NEUTROPH % (test code = NE%) 48.6 % 35.0-73.0 LYMPH % (test code = LY%) 40.7 % 20.0-55.0 MONO % (test code = MO%) 8.9 % 2.5-10.0 EOSINOPH % (test code = EO%) 1.2 % 0.0-5.0 BASOPHIL % (test code = BA%) 0.3 % 0.0-2.0 IG % (test code = IG%) 0.3 % 0.0-0.8 NRBC% (test code = NRBC%) 0.0 % 0.0-0.2 MANDIFF (test code = MDIFF) NO NO RBC MORPH (test code = RBCMOR) NORMAL URINALYSIS WITH [id number] 08:04:00 Test Item Value Reference Range Interpretation Comments COLOR (test code = COLU) DK YELLOW YELLOW A CLARITY (test code = CLA) TURBID CLEAR A GLUCOSE UR (test code = UA NEGATIVE NEGATIVE GLUCOSE) BILI UR (test code = BILE) NEGATIVE NEGATIVE KETONES UR (test code = ZULMA) NEGATIVE NEGATIVE SP GRAVITY (test code = SPGR) 1.023 1.005-1.030 PH UR (test code = PH) 6.0 4.5-8.0 PROTEIN UR (test code = PU) TRACE NEGATIVE A UROBIL UR (test code = UROQ) 0.2 EU/dL 0.2-1.0 NITRITE UR (test code = NEGATIVE NEGATIVE NITRITE) BLOOD UR (test code = UA BLOOD) NEGATIVE NEGATIVE LEUK ES UR (test code = LEUK) 2+ NEGATIVE A WBC UR (test code = UWBC) 7 /HPF 0-5 H RBC UR (test code = URBC) 0 /HPF 0-2 EPITH UR (test code = UEPC) MODERATE /LPF FEW A BACTERIA UR (test code = UBACT) NONE /HPF NONE CAST UR (test code = CAST) /LPF NONE CRYSTAL UR (test code = CRYU) / LPF NONE MUCUS UR (test code = MUC) / HPF NONE AMORPH UR (test code = MODE) / HPF NONE TRICH UR (test code = UTRICH) /HPF NONE YEAST UR (test code = UY) /HPF NONE SPERM UR (test code = USPERM) /HPF NONE AMYLASE AND [id number] 08:04:00 Test Item Value Reference Range Interpretation Comments AMYLASE (test code = 10A) 53 U/L 28-100 LIPASE (test code = 60A) 135 IU/L 73-393 ALCOHOL BLOOD (ETOH)2018-12-28 08:04:00 Test Item Value Reference Range Interpretation Comments ETOH (test code = HALC) ETHANOL The result is to be used only for medical purposes ALCOHOL (test code = <10 mg/dL <=10 56A) [id number] 08:01:00 Test Item Value Reference Range Interpretation Comments MAGNESIUM (test code = 48A) 2.3 mg/dL 1.8-2.4 SERUM [id number] 07:59:00 Test Item Value Reference Range Interpretation Comments PREG SRM (test code = PGS) NEGATIVE NEGATIVE GLUCOMETER GLUCOSE- LAB USE [id number] 07:31:00 Test Item Value Reference Range Interpretation Comments GLUCOMETER (test code = 102 mg/dL 70-100 H Mete r ID: GMG) [id number] tor: [id number] MELLO EN [id number] 10:50:00 Test Item Value Reference Range Interpretation Comments LIPASE (BEAKER) (test code = 749) 80 U/L 6-51 H COMPREHENSIVE METABOLIC [id number] 10:49:00 Test Item Value Reference Range Interpretation Comments TOTAL PROTEIN 7.9 gm/dL 6.0-8.5 (BEAKER) (test code = 770) ALBUMIN (BEAKER) 4.6 g/dL 3.5-5.0 (test code = 1145) ALKALINE PHOSPHATASE 51 U/L 30-115 (BEAKER) (test code = 346) BILIRUBIN TOTAL 0.3 mg/dL 0.1-1.2 (BEAKER) (test code = 377) SODIUM (BEAKER) (test 140 meq/L 135-148 code = 381) POTASSIUM (BEAKER) 3.8 meq/L 3.6-5.5 (test code = 379) CHLORIDE (BEAKER) 105 meq/L 98-106 (test code = 382) CO2 (BEAKER) (test 22 meq/L 20-29 code = 355) BLOOD UREA NITROGEN 10 mg/dL 10-26 (BEAKER) (test code = 354) CREATININE (BEAKER) 0.83 mg/dL 0.50-1.20 (test code = 358) GLUCOSE RANDOM 90 mg/dL 70-110 (BEAKER) (test code = 652) CALCIUM (BEAKER) 9.7 mg/dL 8.5-10.5 (test code = 697) AST (SGOT) (BEAKER) 14 U/L 5-40 (test code = 353) ALT (SGPT) (BEAKER) 8 U/L 5-50 (test code = 347) EGFR (BEAKER) (test 77 mL/min/1.73 ESTIMA ABDIAS GFR IS code = 1092) sq m NOT ACCURATE CREATININE CLEARANCE IN PREDICTING GLOMERULAR FILTRATION RATE . ESTIMATED GFR I S NOT APPLICABLE FOR DIALYSIS PATIEN TS. [id number] 10:41:00 Test Item Value Reference Range Interpretation Comments AMYLASE (BEAKER) (test code = 349) 111 U/L 30-110 H URINALYSIS W/ [id number] 10:33:00 Test Item Value Reference Range Interpretation Comments COLOR (BEAKER) (test code = Yellow 470) CLARITY (BEAKER) (test code = Slightly Cloudy 469) SPECIFIC GRAVITY UA (BEAKER) 1.020 1.001-1.035 (test code = 468) PH UA (BEAKER) (test code = 6.0 5.0-8.0 467) PROTEIN UA (BEAKER) (test Negative Negative code = 464) GLUCOSE UA (BEAKER) (test Negative Negative code = 365) KETONES UA (BEAKER) (test Negative Negative code = 371) BILIRUBIN UA (BEAKER) (test Negative Negative code = 462) BLOOD UA (BEAKER) (test code Negative Negative = 461) NITRITE UA (BEAKER) (test Negative Negative code = 465) LEUKOCYTE ESTERASE UA Trace Negative A (BEAKER) (test code = 466) UROBILINOGEN UA (BEAKER) 0.2 mg/dL 0.2-1.0 (test code = 463) BACTERIA (BEAKER) (test code Moderate = 517) TRICHOMONAS (BEAKER) (test Occasional code = 1586) RBC UA-MANUAL (BEAKER) (test None Seen /HPF code = 1659) WBC UA-MANUAL (BEAKER) (test 10-20 /HPF code = 1661) SQUAMOUS EPITHELIAL MANUAL 50-100 /HPF (BEAKER) (test code = 1663) SOURCE(BEAKER) (test code = 2795) SCREEN, [id number] 10:29:00 Test Item Value Reference Range Interpretation Comments TEST URINE (BEAKER) (test Negative code = 583) CBC W/PLT COUNT & AUTO [id number] 10:24:00 Test Item Value Reference Range Interpretation Comments WHITE BLOOD CELL COUNT (BEAKER) 8.5 K/ L 4.0-10.0 (test code = 775) RED BLOOD CELL COUNT (BEAKER) 4.75 M/ L 4.00-5.00 (test code = 761) HEMOGLOBIN (BEAKER) (test code = 14.3 GM/DL 12.0-15.5 410) HEMATOCRIT (BEAKER) (test code = 43.3 % 36.0-46.0 411) MEAN CORPUSCULAR VOLUME (BEAKER) 91.2 fL 82.0-99.0 (test code = 753) MEAN CORPUSCULAR HEMOGLOBIN 30.1 pg 27.0-33.0 (BEAKER) (test code = 751) MEAN CORPUSCULAR HEMOGLOBIN CONC 33.0 GM/DL 32.0-36.0 (BEAKER) (test code = 752) RED CELL DISTRIBUTION WIDTH 13.2 % 12.0-15.0 (BEAKER) (test code = 412) PLATELET COUNT (BEAKER) (test 300 K/CU MM 150-430 code = 756) MEAN PLATELET VOLUME (BEAKER) 11.7 fL 6.0-11.5 H (test code = 754) NUCLEATED RED BLOOD CELLS 0 /100 WBC 0-0 (BEAKER) (test code = 413) NEUTROPHILS RELATIVE PERCENT 67 % (BEAKER) (test code = 429) LYMPHOCYTES RELATIVE PERCENT 24 % (BEAKER) (test code = 430) MONOCYTES RELATIVE PERCENT 8 % (BEAKER) (test code = 431) EOSINOPHILS RELATIVE PERCENT 1 % (BEAKER) (test code = 432) BASOPHILS RELATIVE PERCENT 0 % (BEAKER) (test code = 437) NEUTROPHILS ABSOLUTE COUNT 5.69 K/ L 1.80-8.00 (BEAKER) (test code = 670) LYMPHOCYTES ABSOLUTE COUNT 2.02 K/ L 1.48-4.50 (BEAKER) (test code = 414) MONOCYTES ABSOLUTE COUNT (BEAKER) 0.66 K/ L 0.00-1.30 (test code = 415) EOSINOPHILS ABSOLUTE COUNT 0.12 K/ L 0.00-0.50 (BEAKER) (test code = 416) BASOPHILS ABSOLUTE COUNT (BEAKER) 0.02 K/ L 0.00-0.20 (test code = 417) IMMATURE GRANULOCYTES-RELATIVE 0 % 0-0 PERCENT (BEAKER) (test code = 2801) - MRI UP JNT W/O CONT [id number] 12:03:00 Patient Name: RHEA SPARKS Unit No: [id number] EXAMS: CPT CODE: [id number] MRI UP JNT W/[place] [id number] EXAM: - MRI UP JNT W/O CONT RT HISTORY: PAIN IN RIGHT SHOULDER Location code:C3 COMPARISON: None available TECHNIQUE: Multiplanar multisequence MR imaging of the right shoulder was performed without the use of contrast. FINDINGS: Patient motion limits evaluation. BICEPS: The intra-articular portion of the biceps tendon is intact. LABRUM: Poorly assessed due to motion ROTATOR CUFF TENDONS: Supraspinatus: Intact. Infraspinatus: Intact. Subscapularis: Intact. Teres minor: Intact. ACROMIO-OSSEOUS OUTLET: There is a type 2 acromion. 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 MUSCLES: No signal abnormality in the muscles. Muscle bulk is preserved and symmetric. BONE: No fracture is identified. Visualized bone marrow signal is within normal limits. SOFT TISSUE: Within normal limits. No abnormality of the major neurovascular structures. IMPRESSION: Limited exam due to motion. Rotator cuffis intact. 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 at 1203 Reported and signed by: Zachary Colin MD CC: Shaq Connell MD; Vielka Reno III, MD Technologist: Kendrick Bradshaw, RT(R) Transcrpt Date/Tm/Trnsp: 12/07/2018 (2853) t.SDR.CB5 Orig Print D/T: S: 12/07/2018 (7407) [facility] NAME: RHEA SPARKS [id number] [place] [address] [address] PHYS: Shaq Martí[place] [address] : 1980 AGE: 37 SEX: F LOC: Z.ZMRI PHONE #: [phone] EXAM DATE: 12/07/2018 STATUS: REG CLI FAX #: [phone] RADIOLOGY NO: PAGE 1 Signed ReportURINE [id number] 08:58:00 Test Item Value Reference Range Interpretation Comments Culture Observations THREE OR MORE SPECIES (test code = COB1) OF BACTERIA ISOLATED. PROBABLE CONTAMINATION. Culture Observations IDENTIFICATION AND (test code = COB17) SUSCEPTIBILITY NOT INDICATED. RECOLLECTION RECOMMENDED CT STONE PROTOCOL [id number] 13:01:41CT ABDOMEN AND PELVIS WITHOUT CONTRAST, RENAL STONE PROTOCOL:Location code: [id number] HISTORY: Flank painCOMPARISON: 07/04/15TECHNIQUE: Helical CT of the abdomen and pelvis was performed withoutcontrast. Thin section axial, sagittal and coronal images were obtained. Oneor more of the following dose reduction techniques were used: Automatedexposure control, adjustment of the mA and or KV according topatient size,and/or utilization of iterative reconstruction technique. DLP: 606 mGy- cm.FINDINGS: Progression of bilateral small nonobstructing nephrolithiasis noted measuringbetween 2 and 3 mm in both kidneys. No evidence of hydronephrosis orureterolithiasis.The visualized lung bases are clear. The unenhanced liver, gallbladder,adrenals, pancreas, and spleen are unremarkable.The unopacified loops of bowel demonstrate no focal thickening or dilatation.No thickened appendix. There is no free intraperitoneal air or fluid. The abdominal aorta is normal in caliber and contour. There is noretroperitonealadenopathy or mass. The urinary bladder is unremarkable.There is no pelvic mass or fluid collection. Mild degenerative changes are present throughout the spine. The skin andsurrounding soft tissues areunremarkable. IMPRESSION:Increasing bilateral nonobstructing nephrolithiasis since prior exam.AMYLASE AND [id number] 12:22:00 Test Item Value Reference Range Interpretation Comments AMYLASE (test code = 10A) 40 U/L 28-100 LIPASE (test code = 60A) 65 IU/L 73-393 L COMPREHENSIVE METABOLIC [id number] 12:22:00 Test Item Value Reference Range Interpretation Comments GLUCOSE (test code = 06D) 91 mg/dL 75-100 SODIUM (test code = 01A) 142 mmol/L 136-145 POTASSIUM (test code = 01B) 4.1 mmol/L 3.6-5.1 CHLORIDE (test code = 04A) 108 mmol/L 98-107 H CO2 (test code = 02A) 29 mmol/L 22-32 ANION GAP (test code = ANG) 9.1 mmol/L BUN (test code = 05D) 10 mg/dL 7-18 CREATININE (test code = 03E) 0.8 mg/dL 0.4-1.1 BUN/CREA (test code = BCR) 13 12-20 CALCIUM (test code = 09D) 8.2 mg/dL 8.3-9.5 L BILI TOTAL (test code = 11A) 0.2 mg/dL 0.2-1.0 PROTEIN (test code = 07D) 6.7 g/dL 6.4-8.2 ALBUMIN (test code = 08D) 3.4 g/dL 3.5-4.8 L GLOBULIN (test code = GLB) 3.3 g/dL 1.5-3.8 ALB/GLOB (test code = AGRR) 1.0 1.0-2.6 ALK PHOS (test code = 35A) 53 IU/L 42-121 AST (test code = 30A) 10 IU/L <=42 ALT (test code = 31A) 12 IU/L <=78 URINALYSIS WITH [id number] 12:18:00 Test Item Value Reference Range Interpretation Comments COLOR (test code = COLU) DK YELLOW YELLOW A CLARITY (test code = CLA) TURBID CLEAR A GLUCOSE UR (test code = UA GLUCOSE) NEGATIVE NEGATIVE BILI UR (test code = BILE) NEGATIVE NEGATIVE KETONES UR (test code = ZULMA) NEGATIVE NEGATIVE SP GRAVITY (test code = SPGR) 1.027 1.005-1.030 PH UR (test code = PH) 6.0 4.5-8.0 PROTEIN UR (test code = PU) 2+ NEGATIVE A UROBIL UR (test code = UROQ) 0.2 EU/dL 0.2-1.0 NITRITE UR (test code = NITRITE) NEGATIVE NEGATIVE BLOOD UR (test code = UA BLOOD) 3+ NEGATIVE A LEUK ES UR (test code = LEUK) 3+ NEGATIVE A WBC UR (test code = UWBC) 21 /HPF 0-5 H RBC UR (test code = URBC) >100 /HPF 0-2 H EPITH UR (test code = UEPC) FEW /LPF FEW BACTERIA UR (test code = UBACT) FEW /HPF NONE A CAST UR (test code = CAST) /LPF NONE CRYSTAL UR (test code = CRYU) / LPF NONE MUCUS UR (test code = MUC) FEW / HPF NONE A AMORPH UR (test code = MODE) / HPF NONE TRICH UR (test code = UTRICH) /HPF NONE YEAST UR (test code = UY) /HPF NONE SPERM UR (test code = USPERM) /HPF NONE SERUM [id number] 12:08:00 Test Item Value Reference Range Interpretation Comments PREG SRM (test code = PGS) NEGATIVE NEGATIVE CBC (INCLUDES AUTOMATED DIFFERENTIAL)2018-12-05 12:05:00 Test Item Value Reference Range Interpretation Comments WBC (test code = WBC) 8.6 10\\S\\3/uL 4.5-11.0 RBC (test code = RBC) 4.03 10\\S\\6/uL 4.30-5.70 L HGB (test code = HBG) 12.4 g/dL 12.0-15.5 HCT (test code = HCT) 38.1 % 35.0-44.0 MCV (test code = MCV) 94.5 fL 81.0-99.0 MCH (test code = MCH) 30.8 pg 27.0-31.0 MCHC (test code = MCHC) 32.5 g/dL 32.0-36.0 RDW (test code = RDW) 13.5 % 11.5-14.5 PLT (test code = PLT) 258 10\\S\\3/uL 130-400 MPV (test code = MPV) 12.3 fL 9.4-12.4 NEUTROP # (test code = NE#) 5.6 10\\S\\3/uL 1.6-8.0 LYMPH # (test code = LY#) 2.1 10\\S\\3/uL 1.1-3.5 MONOCYTE # (test code = MO#) 0.7 10\\S\\3/uL 0.0-1.1 EOSINOPH # (test code = EO#) 0.2 10\\S\\3/uL 0.0-0.7 BASOPHIL # (test code = BA#) 0.0 10\\S\\3/uL 0.0-0.3 IG # (test code = IG#) 0.02 10\\S\\3/uL 0.00-0.06 NRBC # (test code = NRBC#) 0.00 10\\S\\3/uL 0.00-0.01 NEUTROPH % (test code = NE%) 65.1 % 35.0-73.0 LYMPH % (test code = LY%) 24.6 % 20.0-55.0 MONO % (test code = MO%) 7.6 % 2.5-10.0 EOSINOPH % (test code = EO%) 2.0 % 0.0-5.0 BASOPHIL % (test code = BA%) 0.5 % 0.0-2.0 IG % (test code = IG%) 0.2 % 0.0-0.8 NRBC% (test code = NRBC%) 0.0 % 0.0-0.2 MANDIFF (test code = MDIFF) NO NO RBC MORPH (test code = RBCMOR) NORMAL RAD, NASAL BONES, MIN 3 [id number] 14:05:00Reason for Exam:->Fractured noseFINAL REPORT Clinical Diagnosis: Fractured nose Comparison: No comparison Views: Three views of the nasal bones Report:There is no evidence of a fracture, dislocation or radiopaqueforeign body. There is no evidence of a lytic bone lesion. The bone mineralization is normal. The soft tissues are unremarkable. Impression:Negative nasal bone series Signed: Lorne Larose Verified Date/Time: 10/16/2018 14:05:41 Reading Location: [facility] Radiology Reading Room - HEPA IMAG INCL GB W [id number] 13:18:00 Patient Name: RHEA SPARKS Unit No: [id number] EXAMS: CPT CODE: [id number] HEPA IMAG INCLGB W PHA 83654 HIDA scan Location E5 Clinical indication: Nausea After the intravenous administration of 7. 3 mCi of technetium 99m mebrofenin Images of the abdomen obtained at 1 minute intervals for 60 minutes. There is prompt hepatic uptake and excretion with prompt visualization of the common bile duct, gallbladder and small bowel After the intravenous administration of 1 mcg of CCK gallbladder ejection fracture measurement was attempted. Patient experienced abdominal pain and was unable to cooperate for the routine ejection fraction imaging required for calculation. Measurement performed between 11.5 and 20 minutes demonstrate no significant gallbladder emptying. IMPRESSION: 1. Normal HIDA scan. Gallbladder, common bile duct and small bowel visualize promptly 2. Gallbladder ejection fraction measurement is undefined due to patient inability to undergo imaging due to pain. Abbreviated ejection fraction measurement demonstrates no gallbladder emptying. at 1318 Reported and signed by: Jada Abrams M.D. CC: Snow Cleveland MD; Vielka Reno III, MD Technologist: Chanel Tejada, (NM) Transcrpt Date/Tm/Trnsp: 10/08/2018 (4878) [facility] Orig Print D/T: S: 10/08/2018 (7236) [facility] NAME: RHEA SPARKS [id number] [facility] [address] PHYS: [place] [address] : 1980 AGE: 37 SEX: F LOC: YOGI PHONE #: [phone] EXAM DATE: 10/08/2018 STATUS: REG CLI FAX #: [phone] RADIOLOGY NO: PAGE 1 Signed Report- US ABDOMEN [id number] 10:22:00 Patient Name: RHEA SPARKS Unit No: [id number] EXAMS: CPT CODE: [id number] US ABDOMEN COMPLETE 63638 EXAMINATION: - US ABDOMEN COMPLETE. LOCATION: S17. HISTORY: Nausea, stomach pain, vomiting. COMPARISON: CT abdomen/pelvis 07/10/2017. TECHNIQUE: Examination of the liver, spleen, kidneys, pancreas, gallbladder, bile ducts, aorta and inferior vena cava was performed. FINDINGS: The visualizedliver parenchyma is homogeneous in echogenicity. Previously noted tiny right hepatic lobe cyst is not appreciated sonographically. The main portal vein is patent. There is no intra or extrahepatic biliary ductal dilatation. The common duct measures 4 mm. The gallbladder demonstrates dependent sludge without wall thickening. The visualized pancreatic head and body appears unremarkable, evaluation of the tail is limited by overlying bowel gas. Spleen is unremarkable in size. The right and left kidney measure 10.6 cm and 10.3 cm respectively. There is no hydronephrosis. The visualized portions of abdominal aorta and IVC appear unremarkable. IMPRESSION: Gallbladder sludge. at 1022 Reported and signed by: Frank Sousa CC: Snow Segundo Technologist: Shawn Lopez RDMS Transcrpt Date/Tm/Trnsp: 10/08/2018 (1022) Shirley4 Orig Print D/T: S: 10/08/2018 (0819) [facility] NAME: RHEA SPARKS [address] [facility] [address] PHYS: [place] [address] : 1980 AGE: 37 SEX: F LOC: YOGI PHONE #: [phone] EXAM DATE: 10/08/2018 STATUS: REG CLI FAX #: [phone] RADIOLOGY NO: PAGE 1 Signed Report- MRI C-SPINE W/O [id number] 12:54:00 Patient Name: RHEA SPARKS Unit No: [id number] EXAMS: CPT CODE: [id number] MRI C- SPINE W/OCONT 10844 R16 MRI CERVICAL SPINE WITHOUT CONTRAST INDICATION: RADICULOPATHY TECHNIQUE: Multiplanar multisequence MR images were obtained of the cervical spine without intravenous contrast. COMPARISON:None FINDINGS: Marked motion degradation. Straightening of the normal cervical lordosis. Vertebral bodies are normal in height. There is a normal marrow signal pattern. Moderate loss of disc height at C4-C5. Mild loss of disc height in the remainder of the cervical spine. The cervical spinal cord is normal in size, contour and signal intensity. The craniocervical junction is normal. The included intra cranial structures are grossly normal. The paraspinal soft tissues are normal. Evaluation of the individual levels: C2-3: Normal C3-4: Normal C4-5: Disc osteophyte complex, uncovertebral and facet hypertrophy result in mild spinal canal and moderate bilateral neural foraminal stenosis. C5-6: Normal C6-7: Normal C7-T1: Normal IMPRESSION: Degenerative changes result in moderate bilateral neural foraminal stenosis at C4-C5. at 1254 Reported and signed by: Jonathan Sam MD [facility] NAME: RHEA SPARKS [address] [facility] [place] PHYS: Shaq Martí[place] [address] : 1980 AGE: 37 SEX: F LOC: RM PHONE #: [phone] EXAM DATE: 09/25/2018 STATUS: REG CLI FAX #: [phone] RADIOLOGY NO: PAGE 1 Signed Report (CONTINUED) Patient Name: RHEA SPARKS Unit No: [id number] EXAMS: CPT CODE: [id number] MRI C-SPINE W/O CONT [id number] (Continued) CC: Shaq Connell MD; Vielka Reno III, MD Technologist: Chanel Tejada, RT(NM) Transcrpt Date/Tm/Trnsp: 09/25/2018 (1254) [id number].[email or web address] Orig Print D/T: S: 09/25/2018 (1257) [facility] NAME: RHEA SPARKS [address] [facility] [address] PHYS: Shaq [place] [address] : 1980 AGE: 37 SEX: F LOC: RM PHONE #: [phone] EXAM DATE: 09/25/2018 STATUS: REG CLI FAX #: [phone] RADIOLOGY NO: PAGE 2 Signed Report(MANUAL DIFFERENTIAL)2017-06-12 15:59:00 Test Item Value Reference Range Interpretation Comments NEUTROPHILS - REL (DIFF) (BEAKER) 81 % (test code = 1359) LYMPHOCYTES - REL (DIFF) (BEAKER) 14 % (test code = 1360) MONOCYTES - REL (DIFF) (BEAKER) 5 % (test code = 1361) NEUTROPHILS - ABS (DIFF) (BEAKER) 9.88 K/ L 1.80-8.00 H (test code = 1365) LYMPHOCYTES - ABS (DIFF) (BEAKER) 1.71 K/ L 1.48-4.50 (test code = 1366) MONOCYTES - ABS (DIFF) (BEAKER) 0.61 K/ L 0.00-1.30 (test code = 1367) TOTAL COUNTED (BEAKER) (test code = 100 1351) WBC MORPHOLOGY (BEAKER) (test code Normal = 487) PLT MORPHOLOGY (BEAKER) (test code Normal = 486) RBC MORPHOLOGY (BEAKER) (test code Normal = 762) CBC W/PLT COUNT & AUTO [id number] 15:15:00 Test Item Value Reference Range Interpretation Comments WHITE BLOOD CELL COUNT (BEAKER) 12.2 K/ L 4.0-10.0 H (test code = 775) RED BLOOD CELL COUNT (BEAKER) 4.37 M/ L 4.00-5.00 (test code = 761) HEMOGLOBIN (BEAKER) (test code = 12.9 GM/DL 12.0-15.0 410) HEMATOCRIT (BEAKER) (test code = 38.7 % 36.0-45.0 411) MEAN CORPUSCULAR VOLUME (BEAKER) 88.5 fL 82.0-99.0 (test code = 753) MEAN CORPUSCULAR HEMOGLOBIN 29.5 pg 27.0-33.0 (BEAKER) (test code = 751) MEAN CORPUSCULAR HEMOGLOBIN CONC 33.3 GM/DL 32.0-36.0 (BEAKER) (test code = 752) RED CELL DISTRIBUTION WIDTH 14.2 % 10.3-14.2 (BEAKER) (test code = 412) PLATELET COUNT (BEAKER) (test 341 K/CU MM 150-430 code = 756) MEAN PLATELET VOLUME (BEAKER) 10.7 fL 6.5-10.5 H (test code = 754) NUCLEATED RED BLOOD CELLS 0 /100 WBC 0-0 (BEAKER) (test code = 413) URINALYSIS W/ [id number] 15:10:00 Test Item Value Reference Range Interpretation Comments COLOR (BEAKER) (test code = 470) Yellow CLARITY (BEAKER) (test code = 469) Clear SPECIFIC GRAVITY UA (BEAKER) (test 1.010 1.001-1.035 code = 468) PH UA (BEAKER) (test code = 467) 6.5 5.0-8.0 PROTEIN UA (BEAKER) (test code = Negative Negative 464) GLUCOSE UA (BEAKER) (test code = Negative Negative 365) KETONES UA (BEAKER) (test code = Negative Negative 371) BILIRUBIN UA (BEAKER) (test code = Positive Negative A 462) BLOOD UA (BEAKER) (test code = 461) Trace Negative A NITRITE UA (BEAKER) (test code = Negative Negative 465) LEUKOCYTE ESTERASE UA (BEAKER) Negative Negative (test code = 466) UROBILINOGEN UA (BEAKER) (test code 0.2 mg/dL 0.2-1.0 = 463) BACTERIA (BEAKER) (test code = 517) None Seen RBC UA-MANUAL (BEAKER) (test code = <5 /HPF 1659) WBC UA-MANUAL (BEAKER) (test code = <5 /HPF 1661) SQUAMOUS EPITHELIAL MANUAL (BEAKER) 5-10 /HPF (test code = 1663) SOURCE(BEAKER) (test code = 2795) [id number] 15:09:00 Test Item Value Reference Range Interpretation Comments LIPASE (BEAKER) (test code = 749) 8 U/L 6-51 COMPREHENSIVE METABOLIC [id number] 15:09:00 Test Item Value Reference Range Interpretation Comments TOTAL PROTEIN 7.5 gm/dL 6.0-8.5 (BEAKER) (test code = 770) ALBUMIN (BEAKER) 4.2 g/dL 3.5-5.0 (test code = 1145) ALKALINE PHOSPHATASE 57 U/L 30-115 (BEAKER) (test code = 346) BILIRUBIN TOTAL 0.6 mg/dL 0.1-1.2 (BEAKER) (test code = 377) SODIUM (BEAKER) (test 137 meq/L 135-148 code = 381) POTASSIUM (BEAKER) 2.7 meq/L 3.6-5.5 L (test code = 379) CHLORIDE (BEAKER) 102 meq/L 98-106 (test code = 382) CO2 (BEAKER) (test 23 meq/L 20-29 code = 355) BLOOD UREA NITROGEN 12 mg/dL 10-26 (BEAKER) (test code = 354) CREATININE (BEAKER) 1.10 mg/dL 0.50-1.20 (test code = 358) GLUCOSE RANDOM 101 mg/dL 70-110 (BEAKER) (test code = 652) CALCIUM (BEAKER) 9.4 mg/dL 8.5-10.5 (test code = 697) AST (SGOT) (BEAKER) 17 U/L 5-40 (test code = 353) ALT (SGPT) (BEAKER) 11 U/L 5-50 (test code = 347) EGFR (BEAKER) (test 56 mL/min/1.73 ESTIMA ABDIAS GFR IS code = 1092) sq m NOT ACCURATE CREATININE CLEARANCE IN PREDICTING GLOMERULAR FILTRATION RATE . ESTIMATED GFR I S NOT APPLICABLE FOR DIALYSIS PATIEN TS. SCREEN, [id number] 14:51:00 Test Item Value Reference Range Interpretation Comments TEST URINE (BEAKER) (test Negative code = 583) [address]9436& PELVIS W/O [id number] 22:21:08CT ABDOMEN AND PELVISLocation code: [id number]: Flank pain.COMPARISON: None.TECHNIQUE: Volumetric acquisition of abdomen from the level of the domesof the diaphragm to the symphysis pubis using 3 mmcollimation withoutthe use of intravenous or oral contrast. Axial and coronal images werereviewed.Dose lowering techniques with automatic exposure control were utilized.FINDINGS: Lung bases are clear. Liver, gallbladder, spleen, pancreas, and bilateral adrenal glands arewithin normal limits.Kidneys are normal in size and contour bilaterally withouthydronephrosis. Punctate 1 to 2 mm bilateral calycealcalculi noted. Nodiscrete ureteral calculi seen.Visualized loops of small bowel are within normal limits. Normalappearing appendix. Large bowel loops are unremarkable.Aorta tapers normally without aneur ysmal dilatation. No lymphadenopathy.CT pelvis: Urinary bladder and uterus are within normal limits.Follicles in the ovaries.Visualized osseous structures demonstrate moderate left and mild rightsacroiliac joint disease.IMPRESSION: 1. Bilateral nephrolithiasis, without ureteral calculi orhydronephrosis.Urinalysis [id number] 21:08:00 Test Item Value Reference Range Interpretation Comments Color (test code = Yellow Yellow,Straw,Pl N COLOR) yellow Clarity (test code = Clear Clear N CLAR) Specific [place] (test 1.034 1.001-1.035 N code = SPGR) pH (test code = PH) 6.5 5.0-9.0 N Ketone (test code = 15 mg/dL Negative A KET) Glucose (test code = Negative mg/dL Negative N GLUCUR) Protein (test code = 150 mg/dL Negative A PROT) Bilirubin (test code = See IctoTest mg/dL Negative A BILI) Occult Blood (test code Trace Negative A = UDOB) Urobilinogen (test code 0.2 mg/dL 0.2-1.0 N = UROB) Nitrite (test code = Negative Negative N NIT) Leuk Esterase (test Small Negative A code = LEUK) Ictotest (test code = Confirmed Negative Negative,Confirmed N ICTOTEST) Negative Micros Exam (test code Indicated = MEXAM) Epithelial Cells (test 10-14 /LPF 0-30 A code = EPI) WBC, Urine (test code = 2-5 /HPF 0-5 A UWBC) RBC, Urine (test code = 0-1 /HPF 0-5 A URBC) Mucous, Urine (test Trace /HPF code = UMUC) Bacteria (test code = None /HPF BACT) BHCG, Urine, [id number] 21:04:00 Test Item Value Reference Range Interpretation Comments Preg Qual [Ur] (test code = HUHCG) Negative Negative N URINE [id number] 08:32:00 Test Item Value Reference Range Interpretation Comments CULTURE (BEAKER) (test 30-39,000 col/mL skin code = 1095) layla [id number] 21:20:00 Test Item Value Reference Range Interpretation Comments LIPASE (BEAKER) (test code = 749) 14 U/L 6-51 COMPREHENSIVE METABOLIC [id number] 21:06:00 Test Item Value Reference Range Interpretation Comments TOTAL PROTEIN 7.3 gm/dL 6.0-8.5 (BEAKER) (test code = 770) ALBUMIN (BEAKER) 4.0 g/dL 3.5-5.0 (test code = 1145) ALKALINE PHOSPHATASE 67 U/L 30-115 (BEAKER) (test code = 346) BILIRUBIN TOTAL < mg/dL 0.1-1.2 (BEAKER) (test code = 377) SODIUM (BEAKER) (test 138 meq/L 135-148 code = 381) POTASSIUM (BEAKER) 4.2 meq/L 3.6-5.5 (test code = 379) CHLORIDE (BEAKER) 109 meq/L 98-106 H (test code = 382) CO2 (BEAKER) (test 18 meq/L 20-29 L code = 355) BLOOD UREA NITROGEN 10 mg/dL 10-26 (BEAKER) (test code = 354) CREATININE (BEAKER) 0.90 mg/dL 0.50-1.20 (test code = 358) GLUCOSE RANDOM 99 mg/dL 70-110 (BEAKER) (test code = 652) CALCIUM (BEAKER) 9.4 mg/dL 8.5-10.5 (test code = 697) AST (SGOT) (BEAKER) 15 U/L 5-40 (test code = 353) ALT (SGPT) (BEAKER) 11 U/L 5-50 (test code = 347) EGFR (BEAKER) (test 70 mL/min/1.73 ESTIMA ABDIAS GFR IS code = 1092) sq m NOT ACCURATE CREATININE CLEARANCE IN PREDICTING GLOMERULAR FILTRATION RATE . ESTIMATED GFR I S NOT APPLICABLE FOR DIALYSIS PATIEN TS. CBC W/PLT COUNT & AUTO [id number] 20:16:00 Test Item Value Reference Range Interpretation Comments WHITE BLOOD CELL COUNT (BEAKER) 11.5 K/ L 4.0-10.0 H (test code = 775) RED BLOOD CELL COUNT (BEAKER) 4.28 M/ L 4.00-5.00 (test code = 761) HEMOGLOBIN (BEAKER) (test code = 12.8 GM/DL 12.0-15.0 410) HEMATOCRIT (BEAKER) (test code = 39.0 % 36.0-45.0 411) MEAN CORPUSCULAR VOLUME (BEAKER) 91.1 fL 82.0-99.0 (test code = 753) MEAN CORPUSCULAR HEMOGLOBIN 30.0 pg 27.0-33.0 (BEAKER) (test code = 751) MEAN CORPUSCULAR HEMOGLOBIN CONC 32.9 GM/DL 32.0-36.0 (BEAKER) (test code = 752) RED CELL DISTRIBUTION WIDTH 13.6 % 10.3-14.2 (BEAKER) (test code = 412) PLATELET COUNT (BEAKER) (test 247 K/CU MM 150-430 code = 756) MEAN PLATELET VOLUME (BEAKER) 10.2 fL 6.5-10.5 (test code = 754) NUCLEATED RED BLOOD CELLS 0 /100 WBC 0-0 (BEAKER) (test code = 413) NEUTROPHILS RELATIVE PERCENT 66 % (BEAKER) (test code = 429) LYMPHOCYTES RELATIVE PERCENT 26 % (BEAKER) (test code = 430) MONOCYTES RELATIVE PERCENT 7 % (BEAKER) (test code = 431) EOSINOPHILS RELATIVE PERCENT 1 % (BEAKER) (test code = 432) BASOPHILS RELATIVE PERCENT 1 % (BEAKER) (test code = 437) NEUTROPHILS ABSOLUTE COUNT 7.60 K/ L 1.80-8.00 (BEAKER) (test code = 670) LYMPHOCYTES ABSOLUTE COUNT 3.00 K/ L 1.48-4.50 (BEAKER) (test code = 414) MONOCYTES ABSOLUTE COUNT (BEAKER) 0.80 K/ L 0.00-1.30 (test code = 415) EOSINOPHILS ABSOLUTE COUNT 0.10 K/ L 0.00-0.50 (BEAKER) (test code = 416) BASOPHILS ABSOLUTE COUNT (BEAKER) 0.10 K/ L 0.00-0.20 (test code = 417) SCREEN, [id number] 20:04:00 Test Item Value Reference Range Interpretation Comments TEST URINE (BEAKER) (test Negative code = 583) URINALYSIS W/ [id number] 19:58:00 Test Item Value Reference Range Interpretation Comments COLOR (BEAKER) (test code = 470) Yellow CLARITY (BEAKER) (test code = 469) Cloudy SPECIFIC GRAVITY UA (BEAKER) (test 1.020 1.001-1.035 code = 468) PH UA (BEAKER) (test code = 467) 6.0 5.0-8.0 PROTEIN UA (BEAKER) (test code = Trace Negative A 464) GLUCOSE UA (BEAKER) (test code = Negative Negative 365) KETONES UA (BEAKER) (test code = Negative Negative 371) BILIRUBIN UA (BEAKER) (test code = Negative Negative 462) BLOOD UA (BEAKER) (test code = Moderate Negative A 461) NITRITE UA (BEAKER) (test code = Negative Negative 465) LEUKOCYTE ESTERASE UA (BEAKER) Moderate Negative A (test code = 466) UROBILINOGEN UA (BEAKER) (test 0.2 mg/dL 0.2-1.0 code = 463) BACTERIA (BEAKER) (test code = Moderate 517) MUCUS (BEAKER) (test code = 1574) Moderate TRICHOMONAS (BEAKER) (test code = Moderate 1586) RBC UA-MANUAL (BEAKER) (test code 20-50 /HPF = 1659) WBC UA-MANUAL (BEAKER) (test code >100 /HPF = 1661) SQUAMOUS EPITHELIAL MANUAL 10-20 /HPF (BEAKER) (test code = 1663) SOURCE(BEAKER) (test code = 2795) URINE [id number] 08:11:00 Test Item Value Reference Range Interpretation Comments CULTURE (BEAKER) (test code = See comment 1095) <10,000 col/mL Proteus speciesCOMPREHENSIVE METABOLIC [id number] 08:43:00 Test Item Value Reference Range Interpretation Comments TOTAL PROTEIN 7.6 gm/dL 6.0-8.5 (BEAKER) (test code = 770) ALBUMIN (BEAKER) 4.4 g/dL 3.5-5.0 (test code = 1145) ALKALINE PHOSPHATASE 66 U/L 30-115 (BEAKER) (test code = 346) BILIRUBIN TOTAL 0.5 mg/dL 0.1-1.2 (BEAKER) (test code = 377) SODIUM (BEAKER) (test 142 meq/L 135-148 code = 381) POTASSIUM (BEAKER) 3.6 meq/L 3.6-5.5 (test code = 379) CHLORIDE (BEAKER) 106 meq/L 98-106 (test code = 382) CO2 (BEAKER) (test 20 meq/L 20-29 code = 355) BLOOD UREA NITROGEN 6 mg/dL 10-26 L (BEAKER) (test code = 354) CREATININE (BEAKER) 1.00 mg/dL 0.50-1.20 (test code = 358) GLUCOSE RANDOM 122 mg/dL 70-110 H (BEAKER) (test code = 652) CALCIUM (BEAKER) 9.5 mg/dL 8.5-10.5 (test code = 697) AST (SGOT) (BEAKER) 11 U/L 5-40 (test code = 353) ALT (SGPT) (BEAKER) 10 U/L 5-50 (test code = 347) EGFR (BEAKER) (test 62 mL/min/1.73 ESTIMA ABDIAS GFR IS code = 1092) sq m NOT ACCURATE CREATININE CLEARANCE IN PREDICTING GLOMERULAR FILTRATION RATE . ESTIMATED GFR I S NOT APPLICABLE FOR DIALYSIS PATIEN TS. [id number] 08:40:00 Test Item Value Reference Range Interpretation Comments LIPASE (BEAKER) (test code = 749) 7 U/L 6-51 URINALYSIS W/ [id number] 08:40:00 Test Item Value Reference Range Interpretation Comments COLOR (BEAKER) (test code = 470) Yellow CLARITY (BEAKER) (test code = 469) Clear SPECIFIC GRAVITY UA (BEAKER) (test 1.020 1.001-1.035 code = 468) PH UA (BEAKER) (test code = 467) 7.5 5.0-8.0 PROTEIN UA (BEAKER) (test code = 30 mg/dL Negative A 464) GLUCOSE UA (BEAKER) (test code = Negative Negative 365) KETONES UA (BEAKER) (test code = Negative Negative 371) BILIRUBIN UA (BEAKER) (test code = Negative Negative 462) BLOOD UA (BEAKER) (test code = Large Negative A 461) NITRITE UA (BEAKER) (test code = Negative Negative 465) LEUKOCYTE ESTERASE UA (BEAKER) Small Negative A (test code = 466) UROBILINOGEN UA (BEAKER) (test 0.2 mg/dL 0.2-1.0 code = 463) BACTERIA (BEAKER) (test code = Many 517) RBC UA-MANUAL (BEAKER) (test code 10-20 /HPF = 1659) WBC UA-MANUAL (BEAKER) (test code 5-10 /HPF = 1661) SQUAMOUS EPITHELIAL MANUAL 5-10 /HPF (BEAKER) (test code = 1663) SOURCE(BEAKER) (test code = 2795) SCREEN, [id number] 08:34:00 Test Item Value Reference Range Interpretation Comments TEST URINE (BEAKER) (test Negative code = 583) CBC W/PLT COUNT & AUTO [id number] 08:33:00 Test Item Value Reference Range Interpretation Comments WHITE BLOOD CELL COUNT (BEAKER) 13.0 K/ L 4.0-10.0 H (test code = 775) RED BLOOD CELL COUNT (BEAKER) 4.93 M/ L 4.00-5.00 (test code = 761) HEMOGLOBIN (BEAKER) (test code = 14.2 GM/DL 12.0-15.0 410) HEMATOCRIT (BEAKER) (test code = 44.0 % 36.0-45.0 411) MEAN CORPUSCULAR VOLUME (BEAKER) 89.1 fL 82.0-99.0 (test code = 753) MEAN CORPUSCULAR HEMOGLOBIN 28.8 pg 27.0-33.0 (BEAKER) (test code = 751) MEAN CORPUSCULAR HEMOGLOBIN CONC 32.4 GM/DL 32.0-36.0 (BEAKER) (test code = 752) RED CELL DISTRIBUTION WIDTH 14.6 % 10.3-14.2 H (BEAKER) (test code = 412) PLATELET COUNT (BEAKER) (test 308 K/CU MM 150-430 code = 756) MEAN PLATELET VOLUME (BEAKER) 11.5 fL 6.5-10.5 H (test code = 754) NUCLEATED RED BLOOD CELLS 0 /100 WBC 0-0 (BEAKER) (test code = 413) NEUTROPHILS RELATIVE PERCENT 52 % (BEAKER) (test code = 429) LYMPHOCYTES RELATIVE PERCENT 40 % (BEAKER) (test code = 430) MONOCYTES RELATIVE PERCENT 6 % (BEAKER) (test code = 431) EOSINOPHILS RELATIVE PERCENT 1 % (BEAKER) (test code = 432) BASOPHILS RELATIVE PERCENT 1 % (BEAKER) (test code = 437) NEUTROPHILS ABSOLUTE COUNT 6.80 K/ L 1.80-8.00 (BEAKER) (test code = 670) LYMPHOCYTES ABSOLUTE COUNT 5.20 K/ L 1.48-4.50 H (BEAKER) (test code = 414) MONOCYTES ABSOLUTE COUNT (BEAKER) 0.70 K/ L 0.00-1.30 (test code = 415) EOSINOPHILS ABSOLUTE COUNT 0.20 K/ L 0.00-0.50 (BEAKER) (test code = 416) BASOPHILS ABSOLUTE COUNT (BEAKER) 0.10 K/ L 0.00-0.20 (test code = 417)
[2022-07-06 18:53] LABS: Urine Blood Negative (Negative); Urine Glucose Negative (Negative); Urine Protein Negative (Negative); Urine Specific Gravity >=1.030 (1.005-1.030); Urine pH 5.5 (5.0-7.0)
[2022-07-06 19:07] LABS: Urine Specific Gravity/Preg >1.030 (1.005-1.030)
--- NOTE | 2022-07-06 19:45 | RAD REPORT ---
EXAM DESCRIPTION: CTAbdomen Pelvis Wo Contrast - 07/06/2022 7:27 pm CLINICAL HISTORY: Flank pain, kidney stone suspected COMPARISON: Abdomen Pelvis W Contrast dated 01/16/2022 TECHNIQUE: CT of the abdomen and pelvis was performed. All CT scans are performed using dose optimization technique as appropriate and may include automated exposure control or mA/KV adjustment according to patient size. FINDINGS: Lower chest: No acute abnormality. Mild circumferential thickening of the distal esophagus . Liver: No acute abnormality or suspicious lesions. Hepatic steatosis. Biliary: No biliary ductal dilatation. Cholecystectomy. Stomach: No significant focal abnormality. Duodenum: No significant focal abnormality. Pancreas: No significant abnormality. Spleen: No significant abnormality. Adrenal: No suspicious lesions. Kidney/ureter: No hydronephrosis. No renal calculi. Retroperitoneum: No retroperitoneal adenopathy. Vascular: No aneurysm. Bowel: No significant focal abnormality. Appendectomy. Peritoneum: No ascites or free air. Bladder: Grossly unremarkable. Reproductive: No adnexal masses. Bones: No acute fracture. Other: n/a IMPRESSION: No acute intra-abdominal or pelvic finding. No urinary tract calculi.
[2022-07-06 19:59] LABS: Specific Gravity 1.025 (1.005-1.030); Urine Bilirubin NEGATIVE (Negative); Urine Blood Negative (Negative); Urine Clarity Clear (Clear); Urine Color Light-Yellow (Yellow); Urine Glucose NEGATIVE (Negative); Urine Protein NEGATIVE (Negative); Urine Urobilinogen Normal (Normal); Urine pH 5.5 (5.0-7.0)
[2022-07-06 20:08] LABS: Absolute Lymphocytes (CBC) 3.5 K/uL (0.7-4.9); Lymphocytes % 34.8 % (15.3-44.8); MCV 91.7 fL (80-100); MPV 9.5 fL (7.6-11.3); RBC Red Blood Cell Count 4.48 M/uL (3.86-4.86)
[2022-07-06] MEDS ORDERED: KETOROLAC 30 MG/ML INJ ONE (20:33)
[2022-07-06] MEDS ORDERED: ONDANSETRON 4 MG/2 ML VIAL ONE (20:33)
[2022-07-06] MEDS ORDERED: MORPHINE 4 MG/ML SYR ONE (20:33)
[2022-07-06 20:36] LABS: Potassium 4.1 mmol/L (3.5-5.1)
--- NOTE | 2022-07-06 21:03 | ER ---
Nurse's Notes [facility] Name: Rhea Dos Santos Age: 41 yrs Sex: Female : 1980 Arrival Date: 07/06/2022 Time: 18:07 Bed 10 Private MD: Diagnosis: Low back pain Presentation: 07/06 18:14 Chief complaint: Patient states: right flank pain, difficulty urinating, pain with kb3 urination, urinary frequency x2 days. Coronavirus screen: Vaccine status: Patient reports being unvaccinated. Client denies travel out of the [place] in the last 14 days. Ebola Screen: Patient negative for fever greater than or equal to 101.5 degrees Fahrenheit, and additional compatible Ebola Virus Disease symptoms Patient denies exposure to infectious person. Patient denies travel to an Ebola-affected area in the 21 days before illness onset. Initial Sepsis Screen: Does the patient meet any 2 criteria? No. Patient's initial sepsis screen is negative. Does the patient have a suspected source of infection? No. Patient's initial sepsis screen is negative. Risk Assessment: Do you want to hurt yourself or someone else? Patient reports no desire to harm self or others. Onset of symptoms was July 04, 2022. 18:14 Method Of Arrival: Ambulatory kb3 18:14 Acuity: PRASAD 3 kb3 Triage Assessment: 18:16 General: Appears distressed, uncomfortable, Behavior is calm, cooperative. Pain: kb3 Complains of pain in right low back Pain does not radiate. Pain currently is 10 out of 10 on a pain scale. Also complains of nausea. 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 Last tetanus immunization: up to date. - Social history:: Smoking status: Patient denies any tobacco usage or history of. Screenin:58 Abuse screen: Denies threats or abuse. Denies injuries from another. Nutritional kd3 screening: No deficits noted. Tuberculosis screening: No symptoms or risk factors identified. Fall Risk None identified. Assessment: 19:57 General: Appears uncomfortable, Behavior is calm, cooperative. Neuro: Level of kd3 Consciousness is awake, alert, obeys commands, Oriented to person, place, time, situation. Respiratory: Airway is patent Trachea midline Respiratory effort is even, unlabored, Respiratory pattern is regular, symmetrical. Vital Signs: 18:14 BP 156 / 90; Pulse 83; Resp 20; Temp 97.3; Pulse Ox 98% ; Weight 99.79 kg; Height 5 ft. kb3 1 in. (154.94 cm); Pain 10/10; 20:28 BP 116 / 80; Pulse 63; Resp 16; Pulse Ox 100% ; rv1 18:14 Body Mass Index 41.57 (99.79 kg, 154.94 cm) kb3 ED Course: 18:07 Patient arrived in ED. jj6 18:16 Triage completed. kb3 18:16 Arm band placed on right wrist. kb3 18:20 Franc Ramirez DO is Attending Physician. ms3 19:03 Attending Physician role handed off by Franc Ramirez DO rt 19:03 Elder Castañeda MD is Attending Physician. rt 19:29 CT Abd/Pelvis - Without Contrast In Process Unspecified. EDMS 19:46 Renae Dong, RN is Primary Nurse. kd3 19:54 Urinalysis Sent. kd3 19:58 Patient has correct armband on for positive identification. kd3 20:00 Inserted saline lock: 22 gauge in right upper arm, using aseptic technique. Blood ds4 collected. Missed attempt(s): 24 gauge in right antecubital area. Bleeding controlled, band aid applied, catheter tip intact. 21:09 No provider procedures requiring assistance completed. IV discontinued, intact, kd3 bleeding controlled, No redness/swelling at site. Pressure dressing applied. Administered Medications: 20:54 Drug: Ketorolac 30 mg Route: IVP; Site: right antecubital; kd3 21:09 Follow up: Response: No adverse reaction; Pain is decreased kd3 20:54 Drug: morphine 4 mg Route: IVP; Infused Over: 4 mins; Site: right antecubital; kd3 21:09 Follow up: Response: No adverse reaction; Pain is decreased kd3 20:54 Drug: Zofran (Ondansetron) 4 mg Route: IVP; Site: right forearm; kd3 21:09 Follow up: Response: No adverse reaction; Nausea is decreased kd3 Medication: 19:58 VIS not applicable for this client. kd3 Outcome: 21:02 Discharge ordered by . rt 21:09 Discharged to home ambulatory. kd3 21:09 Condition: stable 21:09 Discharge instructions given to patient, Instructed on discharge instructions, follow up and referral plans. medication usage, Demonstrated understanding of instructions, follow-up care, medications, Prescriptions given X 1. 21:10 Patient left the ED. kd3 Signatures: Dispatcher [employer] EDMS Jame Bello ds4 Franc Ramirez DO DO ms3 Sheila Maurer jj6 Renae Dong RN RN kd3 Praveena Griffith RN RN kb3 Elder Castañeda MD MD rt Belinda Avery rv1 Corrections: (The following items were deleted from the chart) 18:18 18:16 Pain: Complains of pain in left low back and right low back Pain does not kb3 radiate. Pain currently is 10 out of 10 on a pain scale. Also complains of nausea, kb3
--- NOTE | 2022-07-06 21:03 | EDPHYS ---
Physician Documentation [facility] Name: Rhea Dos Santos Age: 41 yrs Sex: Female : 1980 Arrival Date: 07/06/2022 Time: 18:07 Bed 10 Private MD: ED Physician Elder Castañeda HPI: 07/06 18:29 This 41 yrs old Female presents to ER via Ambulatory with complaints of Low Back Pain, ms3 Urinary Incontinence. 18:29 The patient presents with pain that is acute, with no known mechanism of injury. The ms3 symptoms are located in the Bilateral flank pain. The pain does not radiate. The problem was sustained Patient with hx of kidney stones, ureteral stents, and UTIs. Onset: The symptoms/episode began/occurred 2 day(s) ago. 18:30 Modifying factors: The patient symptoms are alleviated by nothing, the patient symptoms ms3 are aggravated by nothing. Associated signs and symptoms: The patient has no apparent associated signs or symptoms. Severity of symptoms: At their worst the symptoms were severe, in the emergency department the symptoms are unchanged. 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 Last tetanus immunization: up to date. - Social history:: Smoking status: Patient denies any tobacco usage or history of. ROS: 18:30 Constitutional: Negative for fever, and chills. Neck: Negative for injury, pain, and ms3 swelling, Cardiovascular: Negative for chest pain, and palpitations. Respiratory: Negative for shortness of breath, cough, wheezing, and pleuritic chest pain, Abdomen/GI: Negative for abdominal pain, nausea, vomiting, diarrhea, and constipation. 18:30 Back: Positive for flank pain. 18:30 All other systems are negative. Exam: 18:30 Constitutional: This is a well developed, well nourished patient who is awake, alert, ms3 and in no acute distress. Head/Face: Normocephalic, atraumatic. Neck: Trachea midline, no cervical lymphadenopathy. Supple, full range of motion without nuchal rigidity, or vertebral point tenderness. No Meningismus. Chest/axilla: Normal chest wall appearance and motion. Nontender with no deformity. Cardiovascular: Regular rate and rhythm with a normal S1 and S2. No gallops, murmurs, or rubs. Normal PMI, no JVD. No pulse deficits. Respiratory: Lungs have equal breath sounds bilaterally, clear to auscultation and percussion. No rales, rhonchi or wheezes noted. No increased work of breathing, no retractions or nasal flaring. Abdomen/GI: Soft, non-tender, with normal bowel sounds. No distension or tympany. No guarding or rebound. No evidence of tenderness throughout. 18:30 Back: pain, that is moderate, CVA tenderness, that is moderate, is noted on the right. Vital Signs: 18:14 BP 156 / 90; Pulse 83; Resp 20; Temp 97.3; Pulse Ox 98% ; Weight 99.79 kg; Height 5 ft. kb3 1 in. (154.94 cm); Pain 10/10; 20:28 BP 116 / 80; Pulse 63; Resp 16; Pulse Ox 100% ; rv1 18:14 Body Mass Index 41.57 (99.79 kg, 154.94 cm) kb3 MDM: 18:28 Patient medically screened. ms3 18:30 Differential diagnosis: UTI, Nephrolithiasis vs Pyelonephritis. ms3 18:52 Transition of care: After a detail discussion of the patient's case, care is ms3 transferred to Elder Castañeda MD. 21:03 Data reviewed: vital signs, nurses notes, old medical records, radiologic studies. ED rt course: Assumed care at shift change. Patient presents to the ED with a back pain that is been present for more than 6 months. The patient has no evidence of ureterolithiasis or blood in the urine at this time. The patient does not describe true incontinence and has no saddle anesthesia, do not suspect a spinal epidural abscess or cauda equina syndrome. Discussed with patient that this may be urologic or musculoskeletal in nature. We will start patient muscle lectures. She has adequate pain medications at home, still for outpatient care, return precautions discussed.. 07/06 18:29 Order name: CBC with Diff; Complete Time: 20:31 ms3 07/06 18:29 Order name: BMP; Complete Time: 20:44 ms3 07/06 18:29 Order name: Urinalysis; Complete Time: 20:09 ms3 07/06 18:29 Order name: CT Abd/Pelvis - Without Contrast; Complete Time: 19:49 ms3 07/06 18:53 Order name: Urine Dipstick-Ancillary; Complete Time: 19:26 EDMS 07/06 19:04 Order name: Urine --Ancillary (enter results); Complete Time: 19:26 kj1 07/06 18:29 Order name: Urine Dipstick-Ancillary (obtain specimen); Complete Time: 19:46 ms3 07/06 18:43 Order name: Urine Test (obtain specimen); Complete Time: 19:46 kb3 Administered Medications: 20:54 Drug: Ketorolac 30 mg Route: IVP; Site: right antecubital; kd3 21:09 Follow up: Response: No adverse reaction; Pain is decreased kd3 20:54 Drug: morphine 4 mg Route: IVP; Infused Over: 4 mins; Site: right antecubital; kd3 21:09 Follow up: Response: No adverse reaction; Pain is decreased kd3 20:54 Drug: Zofran (Ondansetron) 4 mg Route: IVP; Site: right forearm; kd3 21:09 Follow up: Response: No adverse reaction; Nausea is decreased kd3 Disposition Summary: 07/06/22 21:02 Discharge Ordered Location: Home rt Problem: an ongoing problem rt Symptoms: are unchanged rt Condition: Stable rt Diagnosis - Low back pain rt Followup: rt - With: Private Physician - When: 2 - 3 days - Reason: Discharge Instructions: - Discharge Summary Sheet rt - Acute Back Pain, Adult rt Forms: - Medication Reconciliation Form rt - Thank You Letter rt - Antibiotic Education rt - Prescription Opioid Use rt Prescriptions: - Cyclobenzaprine 10 mg Oral Tablet - take 1 tablet by ORAL route every 8 hours As needed; 18 tablet; Refills: 0, rt Product Selection Permitted Signatures: Dispatcher [employer] EDFranc Caceres DO DO ms3 Renae Dong RN RN kd3 Praveena Griffith RN RN kb3 Elder Castañeda MD MD rt Corrections: (The following items were deleted from the chart) 18: 18:29 The patient presents with pain that is acute, with no known mechanism of injury, ms3 ms3 18: 18:29 Onset: The symptoms/episode began/occurred 3 day(s) ago, ms3 ms3
[2022-07-06 21:38] VITALS: TEMP 97.3
[2022-07-06 21:39] VITALS: BP 116/80; O2SAT 100
== END 2022-07-06 21:10 | disposition home or self-care (01) ==
LOC: ER 18:06
DX: M54.50 Low back pain, unspecified (principal); Z88.8 Allergy status to other drugs, medicaments and biological substances
CPT/HCPCS: 85025; 80048; 36415; 81025; 81003 ×2; 74176; 99284; J2405

== ENCOUNTER 2023-01-25 20:47 | Emergency (ER) | payer OTHER ==
--- OUTSIDE RECORDS SUMMARY | 2023-01-25 21:16 | XMS REPORT | Continuity of Care Document ---
:[address] [facility] t Address [address] [place] [address] Care Team Providers Name Role Phone VIELKA RENO Primary Care Physician Unavailable JOSE ANDERSON Attending Clinician Unavailable JOSE ANDERSON Attending Clinician Unavailable DENG MACHUCA Attending Clinician Unavailable Megan Cruz Attending Clinician MEGAN MITCHELL Attending Clinician Unavailable SERJIO GOLD Attending Clinician Unavailable Serjio Gold MD Attending Clinician SERJIO CUETO Attending Clinician Unavailable Raina Carney LMSW Attending Clinician BRENT CHILD Attending Clinician Unavailable BRENT CHILD Attending Clinician Unavailable PATY JAMIL Attending Clinician Unavailable JC SHELDON Attending Clinician Unavailable CHANEL KHAN Attending Clinician Unavailable MARK BAILEY Attending Clinician Unavailable YANDEL BETH Attending Clinician Unavailable PETRONA DIAL Attending Clinician Unavailable PETRONA DIAL Attending Clinician Unavailable Mattie REYNA, Estela Triplett Attending Clinician Unavailable ZULEIKA KAY Attending Clinician Unavailable Dorene Tang MD Attending Clinician Zuleika Kay DO Attending Clinician Danelle Heredia MD Attending Clinician Angela Jolly RN Attending Clinician Unavailable CARL ROSARIO Attending Clinician Unavailable NAYLA CONWAY Attending Clinician Unavailable Nayla Espinoza Attending Clinician Nighat Purdy RN Attending Clinician Unavailable Lawson Marquez MD Attending Clinician [phone] LAWSON MARQUEZ Attending Clinician Unavailable DORENE TANG Attending Clinician Unavailable Doctor Unassigned, [place] Attending Clinician Unavailable EWA LEMUS Attending Clinician Unavailable PRICILLA JAMISON Attending Clinician Unavailable Pricilla Jamison DO Attending Clinician WAYNE CAVAZOS Attending Clinician Unavailable Lab, Ang - Db Attending Clinician Unavailable YONIS RIVERA Attending Clinician Unavailable Yonis Rivera MD Attending Clinician JOANNA WEAVER Attending Clinician Unavailable Joanna Weaver MD Attending Clinician Unknown, Attending Attending Clinician Unavailable RANI ORTEGA Attending Clinician Unavailable CATE KAY Attending Clinician Unavailable Jonnathan Watts MD Attending Clinician [phone] Abelardo Gaona Attending Clinician Unavailable Kelvin Calderón MD Attending Clinician DR IQRA GAGE Attending Clinician Unavailable Nidhi South RN Attending Clinician Unavailable Provider, [facility] Attending Clinician Unavailable EMERSON KHALIL Attending Clinician Unavailable JONNATHAN WATTS Attending Clinician Unavailable Julio César MACK, Satya Justin Attending Clinician [phone] SATYA ENNIS Attending Clinician Unavailable DAYA LOERA Attending Clinician Unavailable Amilcar Ang MD Attending Clinician Daya Loera MD Attending Clinician CARLITO CARMEN Attending Clinician Unavailable Carlito Carmen MD Attending Clinician Quynh Burleson MD Attending Clinician QUYNH BURLESON Attending Clinician Unavailable Juan Carlos Logan MD Attending Clinician BRITTANI GARCIA Attending Clinician Unavailable Radha PROJECT ANALYSTBrittani Attending Clinician Costa CRABTREE Attending Clinician Unavailable Costa Nunn Attending Clinician Iqra Hoffman MD Attending Clinician Surjit Scott Attending Clinician Unavailable MAGUE WHITTEN Attending Clinician Unavailable Mague Manriquez Attending Clinician Juan Carlos Chamorro MD Attending Clinician Libby Hodges MD Attending Clinician Federico Juan MD Attending Clinician FEDERICO JUAN Attending Clinician Unavailable Jame Calvillo Attending Clinician Duane Mario MD Attending Clinician Carley Fish MA Attending Clinician Unavailable Nurse, Slmg Sl Uro Attending Clinician Unavailable Ultrasound, Slmg Sl Uro Attending Clinician Unavailable DR MO BRANDON Attending Clinician Unavailable MARINE CAVAZOS Attending Clinician Unavailable Marine Cavazos DO Attending Clinician DR TREVON KC Attending Clinician Unavailable Cora HEDIS SPECIALIST, Kayode Sanchez Attending Clinician KAYODE LOPEZ Attending Clinician Unavailable Krystle Mckeon CRNA Attending Clinician DR JADA MCGRATH Attending Clinician Unavailable SERA, DR CANDELARIO LYONS Attending Clinician Unavailable Noelle SILVERMAN, Danelle Rm Attending Clinician Unavailable Ewa Lemus MD Attending Clinician DR STORMY ZULETA Attending Clinician Unavailable TOD PHOENIX Attending Clinician Unavailable ARROYO, SON Attending Clinician Unavailable DINA, SON Attending Clinician [phone] DR RAMIRO LOPEZ I Attending Clinician Unavailable DR ANTHONY POP Attending Clinician Unavailable Oswald MACK, Jose Juan Jeter Attending Clinician [phone] Philly MACK, Nazanin Thomason Attending Clinician Manuel MACK, Polo Wilson Attending Clinician Tyler MACK, Surjit Shea Attending Clinician [phone] MD NAZANIN PONCE Attending Clinician Unavailable DR CARLOS HAYWARD Attending Clinician Unavailable DR KARTHIKEYAN AGUAYO Attending Clinician Unavailable ALICIA THOMAS Attending Clinician Unavailable RAVIN THOMAS Attending Clinician [phone] DR QUYNH BRADSHAW Attending Clinician Unavailable RAINA LIND Attending Clinician Unavailable RAINA LIND Attending Clinician [phone] RAINA LIND Attending Clinician Unavailable DR JENNYFER MILLER Attending Clinician Unavailable Andriy Starkey MD Attending Clinician Kinsey Cadena MA Attending Clinician Unavailable Franc Ramirez DO Attending Clinician DR LORNE RUIZ Attending Clinician Unavailable JUAN F FERNANDES, DR DONAVAN REDDING Attending Clinician Unavailable DR JARVIS CORBIN Attending Clinician Unavailable EMANI, MR ABDUL Attending Clinician Unavailable DR JOSE JUAN CLAY Attending Clinician Unavailable DALILA BOATENG Attending Clinician Unavailable DR KRYSTLE LI Attending Clinician Unavailable RUI DICKSON Attending Clinician Unavailable Neel Attending Clinician Unavailable CYNDI COOL Attending Clinician Unavailable KENDRICK SAWANT Attending Clinician Unavailable SERGIO MADISON Attending Clinician Unavailable SERJIO GOLD Admitting Clinician Unavailable PATY JAMIL Admitting Clinician Unavailable JC SHELDON Admitting Clinician Unavailable DANELLE HEREDIA Admitting Clinician Unavailable Danelle Heredia MD Admitting Clinician YONIS RIVERA Admitting Clinician Unavailable JOSE ANDERSON Admitting Clinician Unavailable RANI ORTEGA Admitting Clinician Unavailable Vielka Reno Admitting Clinician Unavailable DR IQRA GAGE Admitting Clinician Unavailable DAYA LOERA Admitting Clinician Unavailable QUYNH BURLESON Admitting Clinician Unavailable BRITTANI GARCIA Admitting Clinician Unavailable Costa CRABTREE Admitting Clinician Unavailable MAGUE WHITTEN Admitting Clinician Unavailable JONNATHAN WATTS Admitting Clinician Unavailable DR MO BRANDON Admitting Clinician Unavailable KNOW, DOES_NOT Admitting Clinician Unavailable MARINE CAVAZOS Admitting Clinician Unavailable DR TREVON KC Admitting Clinician Unavailable DR JADA MCGRATH Admitting Clinician Unavailable DR CANDELAIRO ZAMORA Admitting Clinician Unavailable DR STORMY ZULETA Admitting Clinician Unavailable TOD PH[place]ENIX Admitting Clinician Unavailable DR RAMIRO LOPEZ I Admitting Clinician Unavailable DR ANTHONY POP Admitting Clinician Unavailable NAZANIN PONCE Admitting Clinician Unavailable MD NAZANIN PONCE Admitting Clinician Unavailable DR CARLOS HAYWARD Admitting Clinician Unavailable DR KARTHIKEYAN AGUAYO Admitting Clinician Unavailable DR QUYNH BRADSHAW Admitting Clinician Unavailable DR JENNYFER MILLER Admitting Clinician Unavailable DR LORNE RUIZ Admitting Clinician Unavailable JUAN F FERNANDES DR [place] Admitting Clinician Unavailable DR JARVIS CORBIN Admitting Clinician Unavailable EMANI, MR CHANTELL Admitting Clinician Unavailable DR JOSE JUAN CLAY Admitting Clinician Unavailable DALILA BOATENG Admitting Clinician Unavailable DR KRYSTLE LI Admitting Clinician Unavailable Neel Admitting Clinician Unavailable CYNDI COOL Admitting Clinician Unavailable Payers Payer Name Policy Type Policy Number Effective Date Expiration Date S karen [facility] STAR PLUS [id number] 2021 00:00:00 COMMUNITY PLAN STAR [id number] PLUS - C [facility] COMM STAR [id number] 2021 PLAN 00:00:00 [id number] 2022 00:00:00 [facility] - [id number] 2022 STAR PLUS - [place] 00:00:00 (MEDICAID REPLACEMENT - HMO) Problems Condition Condition Condition Status Onset Resolution Last Treating Co mments Source Name Details Category Date Date Treatment Clinician Date Acute Acute Disease Active Univers non-recurr non-recurr 01-14 it y of ent ent 00:00: [place] frontal frontal 00 Medical sinusitis sinusitis Bran ch Chronic Chronic Disease Active Univers seasonal seasonal 01-14 ity of allergic allergic 00:00: [place] rhinitis rhinitis 00 Medica l due to due to Branch pollen pollen Encounter Encounter Disease Active Uni vers to discuss to discuss 01-14 it y of test test 00:00: [place] results results 00 Medical Branch Obesity Obesity Disease Active Univers (BMI (BMI 4-15 ity of 30-39.9) 30-39.9) 00:00: [place] 00 Medical Branch SOB SOB Disease Active Univers (shortness (shortness 4-14 it y of of breath) of breath) [place] [facility] [place] Morbid Morbid Disease Active Univers obesity obesity 4-14 ity of with body with body 00:00: [facility] s mass index mass index 00 Me dical of of Branch 40.0-49.9 40.0-49.9 Projectile Projectile Disease Active [facility] vomiting vomiting 3-06 [facility] e 00:[facility]: of 00 Medicin e Swelling Swelling Disease Active Unive rs of lower of lower 1-11 ity of leg leg 00:00: [place] 00 Medical Branch Edema of Edema of Disease Active Unive rs hand hand 1-11 ity of 00:00: [place] 00 Medical Branch Acute Acute Disease Active Univers right right 1-10 ity of flank pain flank pain 00:[place] [facility] [place] Urinary Urinary Disease Active Univers tract tract 1-10 [place] of infection [place] 00[place] without without 00 [place] hematuria, hematuria, Br anch site site unspecifie unspecifie d d Intractabl Intractabl Disease Active [facility] pain e [facility] 9[facility]16 [facility] 00:[facility]: [facility] 00 [facility] Flank pain Flank pain Disease Active [facility] 9[facility]14 [facility] 00:00: [facility] Ureteral Ureteral Disease Active [facility] stricture, stricture, 9-14 [facility] left left 00:00: Center Anxiety Anxiety Disease Active Univers 8-25 ity of 00:00: [place] 00 [facility] Bipolar Bipolar Disease Active Univers affective affective 8-25 ity of disorder disorder 00:00: [place] in in 00 Medical remission remission Bran ch Depression Depression Disease Active U nivers 8-25 ity of 00:00: [place] [facility] PTSD PTSD Disease Active Univers (post-trau (post-trau 8-25 it y of irene bonilla 00:00: [place] stress stress 00 Medical disorder) disorder) Bran ch Esophageal Esophageal Disease Active U nivers reflux reflux 8-25 ity of 00:00: [place] [facility] Nephrolith Nephrolith Disease Active U nivers iasis iasis 8-25 ity of 00:00: [place] [facility] Hydronephr Hydronephr Disease Active [facility] osis, osis, 8-08 [facility] unspecifie unspecifie 00:00: Me dical d d 00 Center hydronephr hydronephr osis type osis type Intractabl Intractabl Disease Active M ethodi e nausea e nausea 11-30 [facility] and and 00:00: [facility] vomiting vomiting 00 l Epigastric Epigastric Disease Active M ethodi pain pain 9-15 st 00:00: [facility] 00 l Chronic Chronic Disease Active [facility] pancreatit pancreatit 15 st is is 00:00: Hospita 00 l Abnormal Abnormal Disease Active Metho di liver liver 9-15 st enzymes enzymes 00:00: Hospita 00 l Renal Renal Disease Active [facility] calculus calculus 03 st or stone or stone 00:00: Hospit a 00 l Hypertensi Hypertensi Disease Active 2015-[address] [facility] 09[facility]18 [facility] Center Generalize Generalize Disease Active 2015-[address] d d 09-18 [facility] abdominal abdominal 00:00: Medi darren pain pain 00 Center Right Right Disease Active 2015-[address] flank pain flank pain 2 Marilyn kes 00:00: Medical 00 Center Allergies, Adverse Reactions, Alerts Allergy Allergy Status Severity Reaction(s) Onset Inactive Treating Comm ents Source Name Type Date Date Clinician LITHIUM Allergy Active [facility] 03-07 00:00: 00 LITHIUM DRUG Active Other-Cmnt Unive rs INGREDI 03-07 ity of 00:00: [place] 00 Medical Branch [place] Drug Active Other - See Univ ers Allergy comments 03-07 ity of 00:00: [place] 00 Medical Branch ARIPIPRA DRUG Active Unknown-Cmnt Un manoj ZOLE INGREDI 01-15 ity of 00:00: [place] 00 Medical Branch DULOXETI DRUG Active Unknown-Cmnt Un manoj NE INGREDI 01-15 ity of 00:00: [place] 00 Medical Branch Aripipra Propensi Active Unknown - Can't Uni vers zole ty to See comments 6-07 remember it y of adverse 00:00: [place] reaction 00 Medical s Branch Duloxeti Propensi Active Unknown - Cant Uni vers ne ty to See comments 6-07 remember it y of adverse 00:00: the [place] reaction 00 reaction Medica l s Branch Abilify Propensi Active 0 [facility] ty to [address] adverse 00:00: of reaction 00 Medicin s to e drug Celexa Propensi Active 2019-0 [facility] ty to [place] adverse 00:00: of reaction 00 Medicin s to e drug Duloxeti Propensi Active 2019-0 [facility] ne Hcl ty to 05-09 [place] adverse 00:00: of reaction 00 Medicin s to e drug Fluoxeti Propensi Active 2019-0 [facility] ne ty to 05-09 [place] adverse 00:00: of reaction 00 Medicin s to e drug Quetiapi Propensi Active 2019-0 [facility] ne ty to 05-09 [place] Fumarate adverse 00:00: of reaction 00 Medicin s to e drug Tegretol Propensi Active [facility] ty to 05-09 [facility] adverse 00:00: of reaction 00 Medicin s to e drug prochlor DA Active U 2016-08 [facility] perazine 09-09 [facility]: [address] carbamaz DA Active U 2016-08 [facility] epine 09-09 00:00: [address] fluoxeti DA Active U 2016-08 [facility] ne 09-09 [facility]:00: [address] citalopr DA Active U 2016-08 [facility] am 09-09 00:00: [address] quetiapi DA Active U 2016-08 [facility] ne 09-09 00:00: [address] duloxeti DA Active U 2016-08 [facility] ne 09-09 00:00: [address] aripipra DA Active U 2016-08 [facility] zole 09-09 00:00: [address] prochlor DA Active U 2016-08 [facility] perazine 09-09 00:00: [address] carbamaz DA Active U 2016-08 [facility] epine 09-09 00:00: [address] fluoxeti DA Active U 2016-08 [facility] ne 09-09 00:00: [address] citalopr DA Active U 2016-08 [facility] am 09-09 00:00: [address] quetiapi DA Active U RAPID HEART 2016-08 [facility] ne RATE 09-09 00:00: [address] duloxeti DA Active U ILL 2016-08 [facility] ne 09-09 00:00: [address] aripipra DA Active U ILL 2016-08 [facility] zole 09-09 00:00: [address] Aripipra Propensi Active Other (See Cant [...] Hospita reaction 00 l s to drug Aripipra Propensi Active unknown [facility]ole ty [facility] 10-26 [facility] adverse 00:00: Medical reaction 00 Center s ARIPIPRA Allergy Active [facility] ZOLE 318 00:00: 00 Citalopr Propensi Active Other (See Agitation [facility] ty to Comments) 09-19 [facility] adverse 00:00: Medical reaction 00 Center s Duloxeti Propensi Active Warm [facility] ty to 09-19 sensation [facility] adverse 00:00: form top Medical reaction 00 of head Center s and cold sensation coming from feet CITALOPR Allergy Active Other [facility] AM 2 00:00: 00 DULOXETI Allergy Active [facility] NE 09-19 00:00: 00 Fluoxeti Drug Active 2013-08 [facility] ne Allergy 2- ting [facility] 00:[facility]: while Medical 00 awake and Center asleep Quetiapi Drug Active 2013-[address] ne Allergy 2-29 [facility] 00:00: Medical 00 Center Carbamaz Drug Active 2013-[address] [facility] epine Allergy 2-29 [facility] 00:00: Medical 00 Center FLUOXETI Allergy Active 2013-08 [facility] NE 2-29 00:00: 00 QUETIAPI Allergy Active 2013-08 [facility] NE 2-29 00:00: 00 CARBAMAZ Allergy Active 2013-08 [facility] EPINE 2- 00:00: 00 Levaquin DA Active Unknown 2013-08 [facility] 08-11 Medical 00:00: Center 00 Prochlor Propensi Active Other (See Muscle [facility] perazine ty to Comments) 7 spasms [facility] adverse 00:00: Medical reaction 00 Center s Fluoxeti Propensi Active Hallucinatio Univers ne ty to ns 730 ity of adverse 00:00: [place] reaction 00 Medical s Branch Quetiapi Propensi Active Other - See Speech U nivers ne ty to comments 730 problems ity of adverse 00:00: [place] reaction Medical s Branch Carbamaz Propensi Active Rash Univer s epine ty to 7-30 ity of adverse 00:00: [place] reaction Medical s Branch CITALOPR DRUG Active Other-Cmnt [facility] ers AM INGREDI 03-09 ity of 00:00: [place] [facility] FLUOXETI DRUG Active Hallucinates Un manoj NE INGREDI 03-09 ity of 00:00: [place] [facility] QUETIAPI DRUG Active Other-Cmnt Univ ers NE INGREDI 03-09 ity of 00:00: Medical Branch CARBAMAZ DRUG Active Rash Univers EPINE INGREDI 03-09 ity of 00:00: [place] [facility] Citalopr Propensi Active Other - See agreesiv e Univers am ty to comments 7 ity of adverse 00:00: [place] reaction Medical s Branch PROCHLOR Allergy Active Other [facility] PERAZINE 03-09 00:00: 00 Quetiapi Propensi Active Palpitations Speech Univers ne ty to 5-27 problems ity of adverse 00:00: [place] reaction Medical s Branch QUETIAPI DRUG Active Low Other-Cmnt [facility] ers NE INGREDI 5-27 ity of 00:00: [place] 00 Medical Branch Tegretol DA Active Severe 2009-0 [facility] - Medical 00:00: Center 00 Cymbalta DA Active Severe 2009-0 [facility] - Medical 00:00: Center 00 Seroquel DA Active Moderate 2009-0 [facility] 00:00: Center 00 Celexa DA Active Severe 2009-0 [facility] - Medical 00:00: Center 00 Prozac DA Active Unknown 2008-0 [facility] - Medical 00:00: Center 00 Abilify DA Active Unknown [facility] [place] [facility] Social History Social Habit Start Date Stop Date Quantity Comments Source Nutritional 2019-07-26 [facility] observable 00:00:00 Health-related 2019-07-26 [facility] Behavior 00:00:00 History of tobacco Cigarette Smoker [facility] of use Medicine Gender identity [facility] Sexual orientation [facility] Exposure to 2022-12-28 2023-01-07 Not sure [facility] SARS-CoV-2 (event) 00:00:00 14:52:00 Medica l Branch History SDOH 2022-11-22 2022-11-22 5 [facility] Social Connections 00:00:00 00:00:00 Medica l Branch Phone History SDOH 2022-11-22 2022-11-22 7 [facility] Social Connections 00:00:00 00:00:00 Medica l Branch Living History SDOH 2022-11-22 2022-11-22 5 [facility] Financial 00:00:00 00:00:00 Medical Branch History SDOH Food 2022-11-22 2022-11-22 1 Univers ity [facility] [place] [facility] Worry 00:00:00 00:00:00 Medical Branch History SDOH Food 2022-11-22 2022-11-22 1 Univers ity [facility] [place] [facility] Scarcity 00:00:00 00:00:00 Medical Branch History SDOH 2022-11-22 2022-11-22 2 [facility] Transport Med 00:00:00 00:00:00 Medical Bra nch History SDOH 2022-11-22 2022-11-22 2 [facility] Transport Non-Med 00:00:00 00:00:00 Medical Branch History SDOH 2022-11-22 2022-11-22 2 [facility] Housing Unable to 00:00:00 00:00:00 Medical Branch Pay History SDNV 2022-11-22 2022-11-22 1 [facility] Housing Places 00:00:00 00:00:00 Medical Br anch Lived History SDOH 2022-11-22 2022-11-22 2 [facility] Housing Homeless 00:00:00 00:00:00 Medical Branch Last Year History SDOH 2022-11-22 2022-11-22 1 [facility] Alcohol Frequency 00:00:00 00:00:00 Medical Branch History SDOH 2022-11-22 2022-11-22 0 [facility] Physical Activity 00:00:00 00:00:00 Medical Branch DPW History SDNV 2022-11-22 2022-11-22 0 [facility] Physical Activity 00:00:00 00:00:00 Medical Branch MPS History [facility] 2022-10-31 2022-10-31 98 [facility] Social Connections 00:00:00 00:00:00 Medica l Branch Get Together History [facility] 2022-10-31 2022-10-31 98 [facility] Social Connections 00:00:00 00:00:00 Medica l Branch Sikh History [facility] 2022-10-31 2022-10-31 2 [facility] Social Connections 00:00:00 00:00:00 Medica l Branch Membership History [facility] 2022-10-31 2022-10-31 98 [facility] Social Connections 00:00:00 00:00:00 Medica l Branch Meetings History [facility] 2022-10-31 2022-10-31 5 [facility] Stress 00:00:00 00:00:00 Medical Branch History [facility] 2022-10-31 2022-10-31 98 [facility] Alcohol Std Drinks 00:00:00 00:00:00 Medica l Branch History [facility] 2022-10-31 2022-10-31 98 [facility] Alcohol Binge 00:00:00 00:00:00 Medical Bra nc Tobacco Comment 2022-10-14 2022-10-14 Quit 3 months [facility] 00:00:00 00:00:00 ago Medicine Alcohol intake 2022-06-12 2022-06-12 Current [facility] 00:00:00 00:00:00 non-drinker of alcohol (finding) History of Social 2022-06-12 2022-06-12 [facility] function 00:00:00 00:00:00 Cigarette 2022-04-04 2022-04-04 [facility] pack-years 00:00:00 00:00:00 Medical Branch Tobacco use and 2022-04-04 2022-04-04 Smokeless [facility] exposure 00:00:00 00:00:00 tobacco non-user Medical Branch Cigarettes smoked 2018-03-30 2018-03-30 [facility] current (pack per 00:00:00 00:00:00 day) - Reported Sex Ass[birth year] At [birth year] [facility] 00:00:00 00:00:00 Smoking Status Start Date Stop Date Source Ex-smoker 2022-04-04 00:00:00 2022-04-04 [place] [facility] [place] 00:00:00 Medical Branch Unknown if [facility] Smokes tobacco daily 2018-03-30 00:00:00 [facility] Medications Ordered Filled Start Stop Current Ordering Indication Dosage Frequency Signature Comments Components Source Medication Medication Date Date Medication? Clinician (SIG) Name Name traMADoL No 50mg 50 mg, Univer s (ULTRAM) 01-14 Oral, ity of tablet 50 01:30: 01:38 [place]CE, 1 [place] mg 00 :00 dose, On Medical 01/13/23 Branch at 2029, MEGHA levoFLOXaci No 500mg 500 mg, U nivers n 01-14 Oral, ity of (LEVAQUIN) 01:30: 01:38 ONCE, 1 [place] as tablet 500 00 :00 dose, On Medic al mg Fri01/13/23 Branch at 2029, MEGHA
Re ason for Anti-Infec tive: Documented Infection< br>Documen abdias Infection Site: Urine
D uration of Therapy: Other (see Comments) fluticasone Yes [id number] 2{spray Use 2 Univers propionate 06 } Sprays in ity of 50 00:00: each [place] mcg/actuati 00 nostril in Me dical on nasal the Branch spray morning. fluticasone 2022-0 Yes [id number] 2{spray Use 2 Univers propionate 6-06 } Sprays in ity of 50 00:00: each [place] mcg/actuati 00 nostril in Me dical on nasal the Branch spray morning. clonazePAM 2022-0 Yes 1mg Take 1 Unive rs 1 mg tablet 6-05 tablet by ity of 20:29: mouth in [place] [id number] the Medical morning Branch and 1 tablet in the evening. SUMAtriptan 2022-0 Yes 50mg Take 1 Univ ers 50 mg 6-05 tablet by ity of tablet 20:29: mouth as [place] [address] needed for Medical Migraine. Branch clonazePAM 2022-0 Yes 1mg Take 1 Unive rs 1 mg tablet 6-05 tablet by ity of 20:29: mouth in [place] 05 the Medical morning Branch and 1 tablet in the evening. SUMAtriptan 2022-0 Yes 50mg Take 1 Univ ers 50 mg 6-05 tablet by ity of tablet 20:29: mouth as [place] 05 needed for Medical Migraine. Branch clonazePAM 2022-0 Yes 1mg Take 1 Unive rs 1 mg tablet 6-05 tablet by ity of 20:29: mouth in [place] 05 the Medical morning Branch and 1 tablet in the evening. SUMAtriptan 2022-0 Yes 50mg Take 1 Univ ers 50 mg 6-05 tablet by ity of tablet 20:29: mouth as [place] 05 needed for Medical Migraine. Branch acetaminoph 0 Yes [id number] 500mg Take 1 Univers en (TYLENOL 6-05 tablet by ity of EXTRA 00:00: mouth [place] STRENGTH) 00 every 6 Medical 500 mg (six) Branch tablet hours as needed for Pain for up to 20 doses. acetaminoph 2022-0 Yes [id number] 500mg Take 1 Univers en (TYLENOL 6-05 tablet by ity of EXTRA 00:00: mouth [place] STRENGTH) 00 every 6 Medical 500 mg (six) Branch tablet hours as needed for Pain for up to 20 doses. acetaminoph 0 Yes [id number] 500mg Take 1 Univers en (TYLENOL 6-05 tablet by ity of EXTRA 00:00: mouth [place] STRENGTH) 00 every 6 Medical 500 mg (six) Branch tablet hours as needed for Pain for up to 20 doses. levoFLOXaci 0 2022- Yes [id number] 500mg Take 1 Univers n 6-05 -13 tablet by ity of (LEVAQUIN) 00:00: 04:59 mouth [place] 500 mg 00 :00 every 24 Medical tablet (twenty-fo Branch ur) hours for 7 days. levoFLOXaci 2022-0 2022- Yes [id number] 500mg Take 1 Univers n 6-05 06-13 tablet by ity of (LEVAQUIN) 00:00: 04:59 mouth [place] 500 mg 00 :00 every 24 Medical tablet (twenty-fo Branch ur) hours for 7 days. levoFLOXaci 2022- Yes [id number] 500mg Take 1 Univers n 6-05 -13 tablet by ity of (LEVAQUIN) 00:00: 04:59 mouth [place] 500 mg 00 :00 every 24 Medical tablet (twenty-fo Branch ur) hours for 7 days. SUMAtriptan 2023-0 Yes 50mg Take 1 Univ ers 50 mg 5-25 tablet by ity of tablet 11:21: mouth as [place] 17 needed for Medical Migraine. Branch SUMAtriptan 2023-0 Yes 50mg Take 1 Univ ers 50 mg 5-25 tablet by ity of tablet 11:21: mouth as [place] 17 needed for Medical Migraine. Branch SUMAtriptan 2023-0 Yes 50mg Take 1 Univ ers 50 mg 5-25 tablet by ity of tablet 11:21: mouth as [place] 17 needed for Medical Migraine. Branch SUMAtriptan 2023-0 Yes 50mg Take 1 Univ ers 50 mg 5-25 tablet by ity of tablet 11:21: mouth as [place] 17 needed for Medical Migraine. Branch SUMAtriptan 2023-0 Yes 50mg Take 1 Univ ers 50 mg 5-25 tablet by ity of tablet 11:21: mouth as [place] 17 needed for Medical Migraine. Branch SUMAtriptan 2023-0 Yes 50mg Take 1 Univ ers 50 mg 5-25 tablet by ity of tablet 11:21: mouth as [place] 17 needed for Medical Migraine. Branch clonazePAM 2023-0 Yes 1mg Take 1 Unive rs 1 mg tablet 5-25 tablet by ity of 11:20: mouth in [place] [address] the [facility] and 1 tablet in the evening. clonazePAM 2023-0 Yes 1mg Take 1 Unive rs 1 mg tablet 5-25 tablet by ity of 11:20: mouth in [place] [address] the [facility] and 1 tablet in the evening. clonazePAM 2023-0 Yes 1mg Take 1 Unive rs 1 mg tablet 5-25 tablet by ity of 11:20: mouth in [place] [address] the [facility] morning Branch and 1 tablet in the evening. clonazePAM 2023-0 Yes 1mg Take 1 Unive rs 1 mg tablet 5-25 tablet by ity of 11:20: mouth in [place] [address] the [facility] and 1 tablet in the evening. clonazePAM 2023-0 Yes 1mg Take 1 Unive rs 1 mg tablet 5-25 tablet by ity of 11:20: mouth in [place] [address] the [facility] and 1 tablet in the evening. clonazePAM 2023-0 Yes 1mg Take 1 Unive rs 1 mg tablet 5-25 tablet by ity of 11:20: mouth in [place] [address] the [facility] Branch and 1 tablet in the evening. lipase-prot 2022-0 Yes [id number] Take 2 U nivers ease-amylas 5-16 capsules ity of e 00:00: by mouth [place] 36,000-114, 00 with meals Me dical 000- and 1 with Branch 180,000 each unit CpDR snack. lipase-prot 2022-0 Yes [id number] Take 2 U nivers ease-amylas 5-16 capsules ity of e 00:00: by mouth [place] 36,000-114, 00 with meals Me dical 000- and 1 with Branch 180,000 each unit CpDR snack. ciprofloxac 2022-0 Yes [id number] 500mg Take 1 Univers in HCl 500 5-16 tablet by ity of mg tablet 00:00: mouth [place] 00 every 12 Medical (twelve) Branch hours. lipase-prot 2022-0 Yes [id number] Take 2 U nivers ease-amylas 5-16 capsules ity of e 00:00: by mouth [place] 36,000-114, 00 with meals Me dical 000- and 1 with Branch 180,000 each unit CpDR snack. ciprofloxac 2022-0 Yes [id number] 500mg Take 1 Univers in HCl 500 5-16 tablet by ity of mg tablet 00:00: mouth [place] 00 every 12 Medical (twelve) Branch hours. lipase-prot 2022-0 Yes [id number] Take 2 U nivers ease-amylas 5-16 capsules ity of e 00:00: by mouth [place] 36,000-114, 00 with meals Me dical 000- and 1 with Branch 180,000 each unit CpDR snack. lipase-prot 2022-0 Yes [id number] Take 2 U nivers ease-amylas 5-16 capsules ity of e 00:00: by mouth [place] 36,000-114, 00 with meals Me dical 000- and 1 with Branch 180,000 each unit CpDR snack. ciprofloxac 2022-0 Yes [id number] 500mg Take 1 Univers in HCl 500 5-16 tablet by ity of mg tablet 00:00: mouth [place] 00 every 12 Medical (twelve) Branch hours. lipase-prot 2022-0 Yes [id number] Take 2 U nivers ease-amylas 5-16 capsules ity of e 00:00: by mouth [place] 36,000-114, 00 with meals Me dical 000- and 1 with Branch 180,000 each unit CpDR snack. lipase-prot Yes [id number] Take 2 U nivers ease-amylas 5-16 capsules ity of e 00:00: by mouth [place] 36,000-114, 00 with meals Me dical 000- and 1 with Branch 180,000 each unit CpDR snack. lipase-prot Yes [id number] Take 2 U nivers ease-amylas 5-16 capsules ity of e 00:00: by mouth [place] 36,000-114, 00 with meals Me dical 000- and 1 with Branch 180,000 each unit CpDR snack. lipase-prot Yes [id number] Take 2 U nivers ease-amylas 5-16 capsules ity of e 00:00: by mouth [place] 36,000-114, 00 with meals Me dical 000- and 1 with Branch 180,000 each unit CpDR snack. lipase-prot Yes [id number] Take 2 U nivers ease-amylas 5-16 capsules ity of e 00:00: by mouth [place] 36,000-114, 00 with meals Me dical 000- and 1 with Branch 180,000 each unit CpDR snack. lipase-prot Yes [id number] Take 2 U nivers ease-amylas 5-16 capsules ity of e 00:00: by mouth [place] 36,000-114, 00 with meals Me dical 000- and 1 with Branch 180,000 each unit CpDR snack. lipase-prot Yes [id number] Take 2 U nivers ease-amylas 5-16 capsules ity of e 00:00: by mouth [place] 36,000-114, 00 with meals Me dical 000- and 1 with Branch 180,000 each unit CpDR snack. lipase-prot Yes [id number] Take 2 U nivers ease-amylas 5-16 capsules ity of e 00:00: by mouth [place] 36,000-114, 00 with meals Me dical 000- and 1 with Branch 180,000 each unit CpDR snack. lipase-prot Yes [id number] Take 2 U nivers ease-amylas 5-16 capsules ity of e 00:00: by mouth [place] 36,000-114, 00 with meals Me dical 000- and 1 with Branch 180,000 each unit CpDR snack. lipase-prot Yes [id number] Take 2 U nivers ease-amylas 5-16 capsules ity of e 00:00: by mouth [place] 36,000-114, 00 with meals Me dical 000- and 1 with Branch 180,000 each unit CpDR snack. ciprofloxac 2022- No [id number] 500mg Take 1 Univers in HCl 500 5-16 05-25 tablet by ity of mg tablet 00:00: 00:00 mouth [place] 00 :00 every 12 Medical (twelve) Branch hours. ciprofloxac 2022-2022- No [id number] 500mg Take 1 Univers in HCl 500 5-16 05-25 tablet by ity of mg tablet 00:00: 00:00 mouth [place] 00 :00 every 12 Medical (twelve) Branch hours. ciprofloxac 2022- No [id number] 500mg Take 1 Univers in HCl 500 5-16 05-25 tablet by ity of mg tablet 00:00: 00:00 mouth [place] 00 :00 every 12 Medical (twelve) Branch hours. acetaminoph 2022- Yes [id number] 1{tbl} Take 1 U nivers en-codeine 5-16 05-24 tablet by ity of 300-30 mg 00:00: 04:59 mouth [place] tablet 00 :00 every 6 Medical (six) Branch hours as needed for Pain (scale 4-6) for up to 7 days. Indication s: acute pain acetaminoph 2022- Yes [id number] 1{tbl} Take 1 U nivers en-codeine 5-16 05-24 tablet by ity of 300-30 mg 00:00: 04:59 mouth [place] tablet 00 :00 every 6 Medical (six) Branch hours as needed for Pain (scale 4-6) for up to 7 days. Indication s: acute pain acetaminoph 2022- Yes [id number] 1{tbl} Take 1 U nivers en-codeine 5-16 05-24 tablet by ity of 300-30 mg 00:00: 04:59 mouth [place] tablet 00 :00 every 6 Medical (six) Branch hours as needed for Pain (scale 4-6) for up to 7 days. Indication s: acute pain pantoprazol 2022- Yes [id number] 40mg Take 1 Univers e 40 mg EC 4-17 05-18 tablet by ity of tablet 00:00: 04:59 mouth in [place] 00 :00 the [facility] for 30 days. pantoprazol 2022- Yes [id number] 40mg Take 1 Univers e 40 mg EC 4-17 05-18 tablet by ity of tablet 00:00: 04:59 mouth in [place] 00 :00 [facility] for 30 days. pantoprazol 2022- Yes [id number] 40mg Take 1 Univers e 40 mg EC 4-17 05-18 tablet by ity of tablet 00:00: 04:59 mouth in [place] 00 :00 [facility] for 30 days. pantoprazol 2022-2022- Yes [id number] 40mg Take 1 Univers e 40 mg EC 4-17 05-18 tablet by ity of tablet 00:00: 04:59 mouth in [place] 00 :00 [facility] for 30 days. pantoprazol 2022- Yes [id number] 40mg Take 1 Univers e 40 mg EC 4-17 05-18 tablet by ity of tablet 00:00: 04:59 mouth in [place] 00 :00 [facility] for 30 days. pantoprazol 2022- Yes [id number] 40mg Take 1 Univers e 40 mg EC 4-17 05-18 tablet by ity of tablet 00:00: 04:59 mouth in [place] 00 :00 [facility] for 30 days. pantoprazol 2022- No [id number] 40mg Take 1 Univers e 40 mg EC 4-17 05-18 tablet by ity of tablet 00:00: 04:59 mouth in [place] 00 :00 [facility] for 30 days. clonazePAM 2022-0 Yes 1mg Take 1 Unive rs 1 mg tablet 4-16 tablet by ity of 16:44: mouth in [place] [address] the [facility] and 1 tablet in the evening. SUMAtriptan 2022-0 Yes 50mg Take 1 Univ ers 50 mg 4-16 tablet by ity of tablet 16:44: mouth as [place] [address] needed for Medical Migraine. Branch clonazePAM 2023-0 Yes 1mg Take 1 Unive rs 1 mg tablet 4-16 tablet by ity of 16:44: mouth in [place] 40 the Medical morning Branch and 1 tablet in the evening. SUMAtriptan 2023-0 Yes 50mg Take 1 Univ ers 50 mg 4-16 tablet by ity of tablet 16:44: mouth as [place] 40 needed for Medical Migraine. Branch clonazePAM 2023-0 Yes 1mg Take 1 Unive rs 1 mg tablet 4-16 tablet by ity of 16:44: mouth in [place] 40 the Medical morning Branch and 1 tablet in the evening. SUMAtriptan 2023-0 Yes 50mg Take 1 Univ ers 50 mg 4-16 tablet by ity of tablet 16:44: mouth as [place] 40 needed for Medical Migraine. Branch clonazePAM 2023-0 Yes 1mg Take 1 Unive rs 1 mg tablet 4-16 tablet by ity of 16:44: mouth in [place] 40 the Medical morning Branch and 1 tablet in the evening. SUMAtriptan 2023-0 Yes 50mg Take 1 Univ ers 50 mg 4-16 tablet by ity of tablet 16:44: mouth as [place] 40 needed for Medical Migraine. Branch clonazePAM 2023-0 Yes 1mg Take 1 Unive rs 1 mg tablet 4-16 tablet by ity of 16:44: mouth in [place] 40 the Medical morning Branch and 1 tablet in the evening. SUMAtriptan 2023-0 Yes 50mg Take 1 Univ ers 50 mg 4-16 tablet by ity of tablet 16:44: mouth as [place] 40 needed for Medical Migraine. Branch clonazePAM 2023-0 Yes 1mg Take 1 Unive rs 1 mg tablet 4-16 tablet by ity of 16:44: mouth in [place] 40 the Medical morning Branch and 1 tablet in the evening. SUMAtriptan 2023-0 Yes 50mg Take 1 Univ ers 50 mg 4-16 tablet by ity of tablet 16:44: mouth as [place] 40 needed for Medical Migraine. Branch clonazePAM 2023-0 Yes 1mg Take 1 Unive rs 1 mg tablet 4-16 tablet by ity of 16:44: mouth in [place] 40 the Medical morning Branch and 1 tablet in the evening. SUMAtriptan 2023-0 Yes 50mg Take 1 Univ ers 50 mg 4-16 tablet by ity of tablet 16:44: mouth as [place] 40 needed for Medical Migraine. Branch clonazePAM 2022-0 Yes 1mg Take 1 Unive rs 1 mg tablet 4-16 tablet by ity of 16:44: mouth in [place] 40 the Medical morning Branch and 1 tablet in the evening. SUMAtriptan 2022-0 Yes 50mg Take 1 Univ ers 50 mg 4-16 tablet by ity of tablet 16:44: mouth as [place] 40 needed for Medical Migraine. Branch clonazePAM 2022-0 Yes 1mg Take 1 Unive rs 1 mg tablet 4-16 tablet by ity of 16:44: mouth in [place] [address] the Medical morning Branch and 1 tablet in the evening. sucralfate 2022-0 Yes 1g 1 g, Oral, U nivers (CARAFATE) 4-16 AC+HS, ity of tablet 1 g 16:30: First dose [place] 00 on [facility] 11/24/22 at Branch 1130, Until Discontinu ed, Routine propranoloL 2022-0 2022- Yes [id number] 20mg Take 1 Univers 20 mg 4-16 05-17 tablet by ity of tablet 00:00: 04:59 mouth in [place] 00 :00 the [facility] and 1 tablet in the evening. Do all this for 30 days. sucralfate 2022-0 2022- Yes [id number] 1g Take 1 Univers 1 gram 4-16 05-17 tablet by ity of tablet 00:00: 04:59 mouth [place] 00 :00 before Medical meals and [place] at bedtime for 30 days. propranoloL 2022-0 2022- Yes [id number] 20mg Take 1 Univers 20 mg 4-16 05-17 tablet by ity of tablet 00:00: 04:59 mouth in [place] 00 :00 the [facility] and 1 tablet in the evening. Do all this for 30 days. sucralfate 2022-0 2022- Yes [id number] 1g Take 1 Univers 1 gram 4-16 05-17 tablet by ity of tablet 00:00: 04:59 mouth [place] 00 :00 before Medical meals and [place] at bedtime for 30 days. propranoloL 2022-0 2022- Yes [id number] 20mg Take 1 Univers 20 mg 4-16 05-17 tablet by ity of tablet 00:00: 04:59 mouth in [place] 00 :00 the [facility] and 1 tablet in the evening. Do all this for 30 days. sucralfate 2022- Yes [id number] 1g Take 1 Univers 1 gram 4-16 05-17 tablet by ity of tablet 00:00: 04:59 mouth [place] 00 :00 before Medical meals and Branch at bedtime for 30 days. propranoloL 2022- Yes [id number] 20mg Take 1 Univers 20 mg 4-16 05-17 tablet by ity of tablet 00:00: 04:59 mouth in [place] 00 :00 the Medical morning Branch and 1 tablet in the evening. Do all this for 30 days. sucralfate 2022- Yes [id number] 1g Take 1 Univers 1 gram 4-16 05-17 tablet by ity of tablet 00:00: 04:59 mouth [place] 00 :00 before Medical meals and Branch at bedtime for 30 days. propranoloL 2022- Yes [id number] 20mg Take 1 Univers 20 mg 4-16 05-17 tablet by ity of tablet 00:00: 04:59 mouth in [place] 00 :00 the Medical morning Branch and 1 tablet in the evening. Do all this for 30 days. sucralfate 2022- Yes [id number] 1g Take 1 Univers 1 gram 4-16 05-17 tablet by ity of tablet 00:00: 04:59 mouth [place] 00 :00 before Medical meals and Branch at bedtime for 30 days. propranoloL 2022- No [id number] 20mg Take 1 Univers 20 mg 4-16 05-17 tablet by ity of tablet 00:00: 04:59 mouth in [place] 00 :00 the Medical morning Branch and 1 tablet in the evening. Do all this for 30 days. sucralfate 2022- No [id number] 1g Take 1 Univers 1 gram 4-16 05-17 tablet by ity of tablet 00:00: 04:59 mouth [place] 00 :00 before Medical meals and Branch at bedtime for 30 days. propranoloL 2022- No [id number] 20mg Take 1 Univers 20 mg 4-16 05-17 tablet by ity of tablet 00:00: 04:59 mouth in [place] 00 :00 the Medical morning Branch and 1 tablet in the evening. Do all this for 30 days. sucralfate 2022- No [id number] 1g Take 1 Univers 1 gram -16 05-17 tablet by ity of tablet 00:00: 04:59 mouth [place] 00 :00 before Medical meals and Branch at bedtime for 30 days. dicyclomine 2022- Yes [id number] 10mg Take 1 Univers 10 mg 4-16 04-27 capsule by ity of capsule 00:00: 04:59 mouth 4 [place] 00 :00 (four) Medical times Branch daily for 10 days. dicyclomine 2022- Yes [id number] 10mg Take 1 Univers 10 mg 4-16 04-27 capsule by ity of capsule 00:00: 04:59 mouth 4 [place] 00 :00 (four) Medical times [place] daily for 10 days. levoFLOXaci 2022- Yes [id number] 750mg Take 1 Univers n 750 mg 4-16 04-20 tablet by ity o f tablet 00:00: 04:59 mouth [place] 00 :00 every 24 Medical (twenty-fo Branch ur) hours for 3 days. levoFLOXaci 2022- Yes [id number] 750mg Take 1 Univers n 750 mg 4-16 04-20 tablet by ity o f tablet 00:00: 04:59 mouth [place] 00 :00 every 24 Medical (twenty-fo Branch ur) hours for 3 days. pantoprazol Yes 40mg 40 mg, Univ ers e 4-15 Oral, ity of (PROTONIX) 14:00: DAILY, [place] EC tablet 00 First dose Medi darren 40 mg on [facility] Branch 11/23/22 at 0900, Until Discontinu ed, Routine levalbutero Yes .63mg 0.63 mg, U nivers l (XOPENEX) 4-15 Inhalation it y of nebulizer 13:00: , TID, [place] solution 00 First dose Medic al 0.63 mg on [facility] Branch 11/23/22 at 0800, Until Discontinu ed, Routine ipratropium Yes .5mg 0.5 mg, Uni vers (ATROVENT) 4-15 Inhalation ity of 0.02 % 09:14: , Q4HPRN, [place] nebulizer 50 Starting Medica l solution on [facility] Branch 0.5 mg 11/23/22 at 0414, Until Discontinu ed, Routine, Wheezing, Shortness of Breath cefTRIAXone 2022-0 2022- Yes 1000mg 1,000 mg, Univers (ROCEPHIN) 11-23 04-20 IV ity of 1,000 mg in 05:00: 04:59 Piggyback, [place] NaCl 0.9% 00 :00 Q24H ABX, Medic al (NS) 100 mL 5 doses, Bran ch MINI-BAG First dose (after last reorder) on Fri11/23/22 at 0000, Last dose on Fri11/27/22 at 0000, Administer over 30 Minutes, 100 mL
Reas on for Anti-Infec tive: Empiric Therapy for Suspected Infection< br>Empiric Therapy Site: Respirator y
Durat ion of therapy: 72 hours morpHINE (2 0 Yes 2mg 2 mg, Slow Univers mg/mL) 4-15 IV Push, ity of injection 2 03:55: Q4HPRN, [place] mg 56 Starting Medical on Fri [place] 11/22/22 at 2255, Until Discontinu ed, Routine, Pain (scale 7-10) mirtazapine 0 Yes 30mg 30 mg, Univ ers (REMERON) 4-15 Oral, QHS, ity of tablet 30 02:00: First dose [place] mg 00 on Fri [facility] 11/22/22 at Branch 2100, Until Discontinu ed, Routine dicyclomine Yes 10mg 10 mg, Univ ers (BENTYL) 4-15 Oral, QID, ity o f capsule 10 01:00: First dose [place] mg 00 on Fri [facility] 11/22/22 at Branch 2000, Until Discontinu ed, Routine enoxaparin 0 Yes 40mg 40 mg, Unive rs (LOVENOX) 14 Subcutaneo ity of injection 22:00: us, DAILY, [place] 40 mg 00 First dose Medical on Fri [place] 11/22/22 at 1700, Until Discontinu ed, Routine morpHINE (2 2022-0 2022- No 2mg 2 mg, Slow Univers mg/mL) 11-22-14 IV Push, ity of injection 2 18:55: 19:47 ONCE, 1 [place] mg 00 :00 dose, On Medical Fri [place] 11/22/22 at 1400, Routine cetirizine 2023-0 Yes 10mg 10 mg, Unive rs (ZYRTEC) 14 Oral, ity of tablet 10 14:00: DAILY, [place] mg 00 First dose Medical on Fri Branch 11/22/22 at 0900, Until Discontinu ed, Routine morpHINE (2 2022-0 2022- No 2mg 2 mg, Slow Univers mg/mL) 11-2214 IV Push, ity of injection 2 13:15: 13:42 ONCE, 1 [place] mg 00 :00 dose, On Medical Fri Branch 11/22/22 at 0815, Routine propranoloL 2022-0 Yes 20mg 20 mg, Univ ers (INDERAL) 14 Oral, BID, ity of tablet 20 13:00: First dose [place] mg 00 on Fri Medical 11/22/22 at Branch 0800, Until Discontinu ed, Routine lipase-prot 2022-0 Yes [id number] 3 capsule Univers ease-amylas 11-22 (36,000 ity o f e (CREON) 13:00: Units), [place] 12,000-38,0 00 Oral, TID Med ical 00 -60,000 MEALS, Branch unit First dose capsule 3 on Fri capsule 11/22/22 at 0800, Until Discontinu ed clonazePAM 0 Yes 1mg 1 mg, Univer s (KLONOPIN) 11-22 Oral, BID, ity of tablet 1 mg 13:00: First dose [place] 00 on Fri Medical 11/22/22 at Branch 0800, Until Discontinu ed, Routine busPIRone 0 Yes 10mg 10 mg, Univer s (BUSPAR) 14 Oral, BID, ity o f tablet 10 13:00: First dose [place] mg 00 on Fri Medical 11/22/22 at Branch 0800, Until Discontinu ed, Routine levalbutero 2022-0 2022- No 1.25mg 1.25 mg, Univers l (XOPENEX) 11-22 Inhalation i ty of nebulizer 13:00: 09:53 , TID, [place] solution 00 :33 First dose Medic al 1.25 mg on Fri Branch 11/22/22 at 0800, Until Discontinu ed, Routine metoclopram 0 Yes 10mg 10 mg, Univ ers teresa HCl 4-14 Oral, ity of (REGLAN) 11:39: QHSPRN, [place] tablet 10 38 Starting Medica l mg on Fri Branch 11/22/22 at 0639, Until Discontinu ed, Routine, Nausea and Vomiting (N/V) codeine-gua 2023-0 Yes 5mL 5 mL, Unive rs ifenesin 4-14 Oral, ity of (ROBITUSSIN 11:37: Q6HPRN, [place] AC) 10-100 11 Starting Medic al mg/5 mL on Fri Branch oral 11/22/22 at solution 5 0637, mL Until Discontinu ed, Routine, Cough ondansetron 2022-0 Yes 4mg 4 mg, Slow Univers (ZOFRAN 14 IV Push, ity of (PF)) 09:53: Q6HPRN, [place] injection 4 45 Starting Medi darren mg on Fri Branch 11/22/22 at 0453, Until Discontinu ed, Routine, Nausea and Vomiting (N/V) acetaminoph 3-0 Yes 650mg 650 mg, Un manoj en 14 Oral, ity of (TYLENOL) 09:53: Q6HPRN, [place] tablet 650 38 Starting Medic al mg on Fri Branch 11/22/22 at 0453, Until Discontinu ed, Routine, Pain (scale 1-3) ondansetron 2022-0 2022- No 4mg 4 mg, Slow Univers (ZOFRAN 11-22 IV Push, ity of (PF)) 09:45: 09:39 ONCE, 1 [place] injection 4 00 :00 dose, On Medi darren mg Fri Branch 11/22/22 at 0445, MEGHA iopamidol 2022-0 2022- No [id number] 75mL 75 mL, Univers (ISOVUE 11-22 Intravenou ity o f 370-500 mL) 09:45: 09:45 s, ONCE, 1 [place] injection 00 :00 dose, On Medica l 75 mL Fri Branch 11/22/22 at 0445, Routine SERTraline 2022-0 2022- No 50mg Take 1 Univ ers 50 mg 11-22 tablet by ity of tablet 06:40: 00:00 mouth [place] 24 :00 every Medical morning. Branch ondansetron 2022-0 2022- No 4mg Take 1 Uni vers 4 mg tablet 11-22 tablet by it y of 06:40: 00:00 mouth. [place] 24 :00 Medical Branch ondansetron 2022-2022- No 4mg 4 mg, Slow Univers (ZOFRAN 11-22 IV Push, ity of (PF)) 06:15: 06:19 ONCE, 1 [place] injection 4 00 :00 dose, On Medi darren mg Fri Branch 11/22/22 at 0115, MEGHA morpHINE (4 2022- No 4mg 4 mg, Slow Univers mg/mL) 11-22 IV Push, ity of injection 4 06:15: 06:19 ONCE, 1 [place] mg 00 :00 dose, On Medical Fri Branch 11/22/22 at 0115, STAT propranoloL 2022-0 Yes [id number] 20mg Take 1 U nivers 20 mg 4-07 tablet by ity of tablet 00:00: mouth in [place] [address] the Medical morning Branch and 1 tablet in the evening. propranoloL 2022-0 Yes [id number] 20mg Take 1 U nivers 20 mg 4-07 tablet by ity of tablet 00:00: mouth in [place] [address] the Medical morning Branch and 1 tablet in the evening. propranoloL 2022-0 Yes [id number] 20mg Take 1 U nivers 20 mg 4-07 tablet by ity of tablet 00:00: mouth in [place] 00 the Medical morning Branch and 1 tablet in the evening. propranoloL 2022-0 2022- No [id number] 20mg Take 1 Univers 20 mg 11-15-16 tablet by ity of tablet 00:00: 00:00 mouth in [place] 00 :00 the Medical morning Branch and 1 tablet in the evening. SUMAtriptan 2022-0 2022- Yes [id number] 50mg Take 1 Univers 50 mg 4- 04-08 tablet by ity of tablet 00:00: 04:59 mouth once [place] 00 :[place] now for 1 Medical dose. Branch SUMAtriptan 2022-0 2022- Yes [id number] 50mg Take 1 [facility] 50 mg 4- 04-08 tablet by ity of tablet 00:00: 04:59 mouth [place] 00 :[place] now for 1 Medical dose. Branch mirtazapine 2022-0 2022- No 30mg Take 1 Uni vers 30 mg 4-03 04-03 tablet by ity of tablet 14:29: 00:00 mouth at [place] 31 :00 bedtime. Medical Branch mirtazapine 2023-0 2023- No 30mg Take 1 Uni vers 30 mg 4-03 04-03 tablet by ity of tablet 14:29: 00:00 mouth at [place] 31 :00 bedtime. Medical Branch clonazePAM 2023-0 Yes 1mg Take 1 Unive rs 1 mg tablet 4-03 tablet by ity of 14:11: mouth in [place] [address] the Medical morning Branch and 1 tablet in the evening. SERTraline 2023-0 Yes 50mg Take 1 Unive rs 50 mg 4-03 tablet by ity of tablet 14:11: mouth [place] [address] every Medical morning. Branch ondansetron 2023-0 Yes 4mg Take 1 Univ ers 4 mg tablet 4-03 tablet by ity of 14:11: mouth. [place] [address] Medical Branch clonazePAM 2023-0 Yes 1mg Take 1 Unive rs 1 mg tablet 4-03 tablet by ity of 14:11: mouth in [place] [address] the Medical morning Branch and 1 tablet in the evening. SERTraline 2023-0 Yes 50mg Take 1 Unive rs 50 mg 4-03 tablet by ity of tablet 14:11: mouth [place] [address] every Medical morning. Branch ondansetron 2023-0 Yes 4mg Take 1 Univ ers 4 mg tablet 4-03 tablet by ity of 14:11: mouth. [place] [address] Medical Branch clonazePAM 2023-0 Yes 1mg Take 1 Unive rs 1 mg tablet 4-03 tablet by ity of 14:11: mouth in [place] [address] the Medical morning Branch and 1 tablet in the evening. SERTraline 2023-0 Yes 50mg Take 1 Unive rs 50 mg 4-03 tablet by ity of tablet 14:11: mouth [place] [address] every Medical morning. Branch ondansetron 2023-0 Yes 4mg Take 1 Univ ers 4 mg tablet 4-03 tablet by ity of 14:11: mouth. [place] [address] Medical Branch clonazePAM 2023-0 Yes 1mg Take 1 Unive rs 1 mg tablet 4-03 tablet by ity of 14:11: mouth in [place] [address] the Medical morning Branch and 1 tablet in the evening. SERTraline 2023-0 Yes 50mg Take 1 Unive rs 50 mg 4-03 tablet by ity of tablet 14:11: mouth [place] [address] every Medical morning. Branch ondansetron 3-0 Yes 4mg Take 1 Univ ers 4 mg tablet 4-03 tablet by ity of 14:11: mouth. [place] [address] Medical Branch clonazePAM 3-0 Yes 1mg Take 1 Unive rs 1 mg tablet 4-03 tablet by ity of 14:11: mouth in [place] [address] the Medical morning Branch and 1 tablet in the evening. SERTraline 3-0 Yes 50mg Take 1 Unive rs 50 mg 4-03 tablet by ity of tablet 14:11: mouth [place] [address] every Medical morning. Branch ondansetron 3-0 Yes 4mg Take 1 Univ ers 4 mg tablet 4-03 tablet by ity of 14:11: mouth. [place] [address] Medical Branch busPIRone 3-0 Yes [id number] 10mg Take 1 Un manoj 10 mg 4-03 tablet by ity of tablet 00:00: mouth in [place] [address] the Medical morning Branch and 1 tablet in the evening. mirtazapine 2023-0 Yes [id number] 30mg Take 1 [facility] 30 mg 4-03 tablet by ity of tablet 00:00: mouth at [place] [address] bedtime. Medical Branch busPIRone 3-0 Yes [id number] 10mg Take 1 [facility] 10 mg 4-03 tablet by ity of tablet 00:00: mouth in [place] [address] the Medical morning Branch and 1 tablet in the evening. mirtazapine 2023-0 Yes [id number] 30mg Take 1 [facility] 30 mg 4-03 tablet by ity of tablet 00:00: mouth at [place] [address] bedtime. Medical Branch busPIRone 3-0 Yes [id number] 10mg Take 1 [facility] 10 mg 4-03 tablet by ity of tablet 00:00: mouth in [place] [address] the Medical morning Branch and 1 tablet in the evening. mirtazapine 2023-0 Yes [id number] 30mg Take 1 [facility] 30 mg 4-03 tablet by ity of tablet 00:00: mouth at [place] [address] bedtime. Medical Branch busPIRone 2023-0 Yes [id number] 10mg Take 1 [facility] 10 mg 4-03 tablet by ity of tablet 00:00: mouth in [place] [address] the Medical morning Branch and 1 tablet in the evening. mirtazapine 2023-0 Yes [id number] 30mg Take 1 [facility] 30 mg 4-03 tablet by ity of tablet 00:00: mouth at [place] [address] bedtime. Medical Branch busPIRone 3-0 Yes [id number] 10mg Take 1 [facility] 10 mg 4-03 tablet by ity of tablet 00:00: mouth in [place] 00 the Medical morning Branch and 1 tablet in the evening. mirtazapine 2023-0 Yes [id number] 30mg Take 1 [facility] 30 mg 4-03 tablet by ity of tablet 00:00: mouth at [place] [address] bedtime. Medical Branch busPIRone 3-0 Yes [id number] 10mg Take 1 [facility] 10 mg 4-03 tablet by ity of tablet 00:00: mouth in [place] 00 the Medical morning Branch and 1 tablet in the evening. mirtazapine 3-0 Yes [id number] 30mg Take 1 [facility] 30 mg 4-03 tablet by ity of tablet 00:00: mouth at [place] [address] bedtime. Medical Branch busPIRone 2022-0 Yes [id number] 10mg Take 1 [facility] 10 mg 4-03 tablet by ity of tablet 00:00: mouth in [place] 00 the Medical morning Branch and 1 tablet in the evening. mirtazapine 3-0 Yes [id number] 30mg Take 1 [facility] 30 mg 4-03 tablet by ity of tablet 00:00: mouth at [place] [address] bedtime. Medical Branch busPIRone 2022-0 Yes [id number] 10mg Take 1 [facility] 10 mg 4-03 tablet by ity of tablet 00:00: mouth in [place] 00 the Medical morning Branch and 1 tablet in the evening. mirtazapine 2023-0 Yes [id number] 30mg Take 1 [facility] 30 mg 4-03 tablet by ity of tablet 00:00: mouth at [place] [address] bedtime. Medical Branch busPIRone 3-0 Yes [id number] 10mg Take 1 [facility] 10 mg 4-03 tablet by ity of tablet 00:00: mouth in [place] 00 the Medical morning Branch and 1 tablet in the evening. mirtazapine 2023-0 Yes [id number] 30mg Take 1 [facility] 30 mg 4-03 tablet by ity of tablet 00:00: mouth at [place] [address] bedtime. Medical Branch busPIRone 3-0 Yes [id number] 10mg Take 1 [facility] 10 mg 4-03 tablet by ity of tablet 00:00: mouth in [place] 00 the Medical morning Branch and 1 tablet in the evening. mirtazapine 2023-0 Yes [id number] 30mg Take 1 [facility] 30 mg 4-03 tablet by ity of tablet 00:00: mouth at [place] [address] bedtime. Medical Branch busPIRone 3-0 Yes [id number] 10mg Take 1 [facility] 10 mg 4-03 tablet by ity of tablet 00:00: mouth in [place] 00 the Medical morning Branch and 1 tablet in the evening. mirtazapine 3-0 Yes [id number] 30mg Take 1 [facility] 30 mg 4-03 tablet by ity of tablet 00:00: mouth at [place] [address] bedtime. Medical Branch busPIRone 3-0 Yes [id number] 10mg Take 1 [facility] 10 mg 4-03 tablet by ity of tablet 00:00: mouth in [place] 00 the Medical morning Branch and 1 tablet in the evening. mirtazapine 3-0 Yes [id number] 30mg Take 1 [facility] 30 mg 4-03 tablet by ity of tablet 00:00: mouth at [place] [address] bedtime. Medical Branch busPIRone 3-0 Yes [id number] 10mg Take 1 [facility] 10 mg 4-03 tablet by ity of tablet 00:00: mouth in [place] 00 the Medical morning Branch and 1 tablet in the evening. mirtazapine 3-0 Yes [id number] 30mg Take 1 [facility] 30 mg 4-03 tablet by ity of tablet 00:00: mouth at [place] [address] bedtime. Medical Branch busPIRone 3-0 Yes [id number] 10mg Take 1 [facility] 10 mg 4-03 tablet by ity of tablet 00:00: mouth in [place] 00 the Medical morning Branch and 1 tablet in the evening. mirtazapine 2023-0 Yes [id number] 30mg Take 1 [facility] 30 mg 4-03 tablet by ity of tablet 00:00: mouth at [place] [address] bedtime. Medical Branch busPIRone 3-0 Yes [id number] 10mg Take 1 [facility] 10 mg 4-03 tablet by ity of tablet 00:00: mouth in [place] 00 the Medical morning Branch and 1 tablet in the evening. mirtazapine 2023-0 Yes [id number] 30mg Take 1 [facility] 30 mg 4-03 tablet by ity of tablet 00:00: mouth at [place] [address] bedtime. Medical Branch busPIRone 3-0 Yes [id number] 10mg Take 1 [facility] 10 mg 4-03 tablet by ity of tablet 00:00: mouth in [place] 00 the Medical morning Branch and 1 tablet in the evening. mirtazapine 3-0 Yes [id number] 30mg Take 1 [facility] 30 mg 4-03 tablet by ity of tablet 00:00: mouth at [place] [address] bedtime. Medical Branch busPIRone 3-0 Yes [id number] 10mg Take 1 [facility] 10 mg 4-03 tablet by ity of tablet 00:00: mouth in [place] 00 the Medical morning Branch and 1 tablet in the evening. mirtazapine 3-0 Yes [id number] 30mg Take 1 [facility] 30 mg 4-03 tablet by ity of tablet 00:00: mouth at [place] [address] bedtime. Medical Branch busPIRone 3-0 Yes [id number] 10mg Take 1 [facility] 10 mg 4-03 tablet by ity of tablet 00:00: mouth in [place] 00 the Medical morning Branch and 1 tablet in the evening. mirtazapine 3-0 Yes [id number] 30mg Take 1 [facility] 30 mg 4-03 tablet by ity of tablet 00:00: mouth at [place] [address] bedtime. Medical Branch busPIRone 3-0 Yes [id number] 10mg Take 1 [facility] 10 mg 4-03 tablet by ity of tablet 00:00: mouth in [place] 00 the Medical morning Branch and 1 tablet in the evening. mirtazapine 3-0 Yes [id number] 30mg Take 1 [facility] 30 mg 4-03 tablet by ity of tablet 00:00: mouth at [place] [address] bedtime. Medical Branch busPIRone 3-0 Yes [id number] 10mg Take 1 [facility] 10 mg 4-03 tablet by ity of tablet 00:00: mouth in [place] 00 the Medical morning Branch and 1 tablet in the evening. mirtazapine 2023-0 Yes [id number] 30mg Take 1 [facility] 30 mg 4-03 tablet by ity of tablet 00:00: mouth at [place] [address] bedtime. Medical Branch busPIRone 3-0 Yes [id number] 10mg Take 1 [facility] 10 mg 4-03 tablet by ity of tablet 00:00: mouth in [place] [address] the Medical morning Branch and 1 tablet in the evening. mirtazapine 2023-0 Yes [id number] 30mg Take 1 [facility] 30 mg 4-03 tablet by ity of tablet 00:00: mouth at [place] [address] bedtime. Medical Branch busPIRone 3-0 Yes [id number] 10mg Take 1 [facility] 10 mg 4-03 tablet by ity of tablet 00:00: mouth in [place] [address] the Medical morning Branch and 1 tablet in the evening. mirtazapine 2023-0 Yes [id number] 30mg Take 1 [facility] 30 mg 4-03 tablet by ity of tablet 00:00: mouth at [place] [address] bedtime. Medical Branch mirtazapine 3-0 Yes 30mg Take 1 [facility] ers 30 mg 3-28 tablet by ity of tablet 14:37: mouth. [place] [address] Medical Branch mirtazapine 2023-0 Yes 30mg Take 1 [facility] ers 30 mg 3-28 tablet by ity of tablet 14:37: mouth. [place] [address] Medical Branch promethazin 2023-0 Yes [id number] 5mL Take 5 mL [facility] e-dextromet 3-28 by mouth 4 it y of horphan 00:00: (four) [place] 6.25-15 00 times Medical mg/5 mL daily as Branch syrup needed for Cough. ibuprofen 2023-0 Yes [id number] 800mg Take 1 [facility] 800 mg 3-28 tablet by ity of tablet 00:00: mouth 3 [place] [address] (three) Medical times Branch daily as needed for Pain (scale 4-6). With meals. promethazin 2023-0 Yes [id number] 5mL Take 5 mL [facility] e-dextromet 3-28 by mouth 4 it y of horphan 00:00: (four) [place] 6.25-15 00 times Medical mg/5 mL daily as Branch syrup needed for Cough. ibuprofen 2023-0 Yes [id number] 800mg Take 1 [facility] 800 mg 3-28 tablet by ity of tablet 00:00: mouth 3 [place] 00 (three) Medical times Branch daily as needed for Pain (scale 4-6). With meals. promethazin 2023-0 Yes [id number] 5mL Take 5 mL [facility] e-dextromet 3-28 by mouth 4 it y of horphan 00:00: (four) [place] 6.25-15 00 times Medical mg/5 mL daily as Branch syrup needed for Cough. promethazin 3-0 Yes [id number] 5mL Take 5 mL [facility] e-dextromet 3-28 by mouth 4 it y of horphan 00:00: (four) [place] 6.25-15 00 times Medical mg/5 mL daily as Branch syrup needed for Cough. promethazin 3-0 Yes [id number] 5mL Take 5 mL [facility] e-dextromet 3-28 by mouth 4 it y of horphan 00:00: (four) [place] 6.25-15 00 times Medical mg/5 mL daily as Branch syrup needed for Cough. promethazin 3-0 Yes [id number] 5mL Take 5 mL [facility] e-dextromet 3-28 by mouth 4 it y of horphan 00:00: (four) [place] 6.25-15 00 times Medical mg/5 mL daily as Branch syrup needed for Cough. promethazin 2022-0 Yes [id number] 5mL Take 5 mL [facility] e-dextromet 3-28 by mouth 4 it y of horphan 00:00: (four) [place] 6.25-15 00 times Medical mg/5 mL daily as Branch syrup needed for Cough. promethazin 2022-0 Yes [id number] 5mL Take 5 mL [facility] e-dextromet 3-28 by mouth 4 it y of horphan 00:00: (four) [place] 6.25-15 00 times Medical mg/5 mL daily as Branch syrup needed for Cough. promethazin 2022-0 Yes [id number] 5mL Take 5 mL [facility] e-dextromet 3-28 by mouth 4 it y of horphan 00:00: (four) [place] 6.25-15 00 times Medical mg/5 mL daily as Branch syrup needed for Cough. promethazin 2023-0 Yes [id number] 5mL Take 5 mL [facility] e-dextromet 3-28 by mouth 4 it y of horphan 00:00: (four) [place] 6.25-15 00 times Medical mg/5 mL daily as Branch syrup needed for Cough. promethazin 3-0 Yes [id number] 5mL Take 5 mL [facility] e-dextromet 3-28 by mouth 4 it y of horphan 00:00: (four) [place] 6.25-15 00 times Medical mg/5 mL daily as Branch syrup needed for Cough. promethazin 3-0 Yes [id number] 5mL Take 5 mL [facility] e-dextromet 3-28 by mouth 4 it y of horphan 00:00: (four) [place] 6.25-15 00 times Medical mg/5 mL daily as Branch syrup needed for Cough. promethazin 3-0 Yes [id number] 5mL Take 5 mL [facility] e-dextromet 3-28 by mouth 4 it y of horphan 00:00: (four) [place] 6.25-15 00 times Medical mg/5 mL daily as Branch syrup needed for Cough. promethazin 3-0 Yes [id number] 5mL Take 5 mL [facility] e-dextromet 3-28 by mouth 4 it y of horphan 00:00: (four) [place] 6.25-15 00 times Medical mg/5 mL daily as Branch syrup needed for Cough. promethazin 3-0 Yes [id number] 5mL Take 5 mL [facility] e-dextromet 3-28 by mouth 4 it y of horphan 00:00: (four) [place] 6.25-15 00 times Medical mg/5 mL daily as Branch syrup needed for Cough. promethazin 3-0 Yes [id number] 5mL Take 5 mL [facility] e-dextromet 3-28 by mouth 4 it y of horphan 00:00: (four) [place] 6.25-15 00 times Medical mg/5 mL daily as Branch syrup needed for Cough. promethazin 3-0 Yes [id number] 5mL Take 5 mL [facility] e-dextromet 3-28 by mouth 4 it y of horphan 00:00: (four) [place] 6.25-15 00 times Medical mg/5 mL daily as Branch syrup needed for Cough. promethazin 2023-0 Yes [id number] 5mL Take 5 mL [facility] e-dextromet 3-28 by mouth 4 it y of horphan 00:00: (four) [place] 6.25-15 00 times Medical mg/5 mL daily as Branch syrup needed for Cough. promethazin 3-0 Yes [id number] 5mL Take 5 mL [facility] e-dextromet 3-28 by mouth 4 it y of horphan 00:00: (four) [place] 6.25-15 00 times Medical mg/5 mL daily as Branch syrup needed for Cough. promethazin 2023-0 Yes [id number] 5mL Take 5 mL [facility] e-dextromet 3-28 by mouth 4 it y of horphan 00:00: (four) [place] 6.25-15 00 times Medical mg/5 mL daily as Branch syrup needed for Cough. promethazin 2023-0 Yes [id number] 5mL Take 5 mL [facility] e-dextromet 3-28 by mouth 4 it y of horphan 00:00: (four) [place] 6.25-15 00 times Medical mg/5 mL daily as Branch syrup needed for Cough. promethazin 2023-0 Yes [id number] 5mL Take 5 mL [facility] e-dextromet 3-28 by mouth 4 it y of horphan 00:00: (four) [place] 6.25-15 00 times Medical mg/5 mL daily as Branch syrup needed for Cough. promethazin 2023-0 Yes [id number] 5mL Take 5 mL [facility] e-dextromet 3-28 by mouth 4 it y of horphan 00:00: (four) [place] 6.25-15 00 times Medical mg/5 mL daily as Branch syrup needed for Cough. promethazin 2023-0 Yes [id number] 5mL Take 5 mL [facility] e-dextromet 3-28 by mouth 4 it y of horphan 00:00: (four) [place] 6.25-15 00 times Medical mg/5 mL daily as Branch syrup needed for Cough. ibuprofen 2023-0 2023- No [id number] 800mg Take 1 [facility] 800 mg 3-28 04-03 tablet by ity of tablet 00:00: 00:00 mouth 3 [place] 00 :00 (three) Medical times Branch daily as needed for Pain (scale 4-6). With meals. ibuprofen 2023-0 2023- No [id number] 800mg Take 1 [facility] 800 mg 3-28 04-03 tablet by ity of tablet 00:00: 00:00 mouth 3 [place] 00 :00 (three) Medical times Branch daily as needed for Pain (scale 4-6). With meals. mirtazapine 2023-0 Yes 30mg Take 1 [facility] ers 30 mg 3-24 tablet by ity of tablet 10:06: mouth. [place] 59 Medical Branch mirtazapine 2023-0 Yes 30mg Take 1 [facility] ers 30 mg 3-24 tablet by ity of tablet 10:06: mouth. [place] [address] Medical Branch mirtazapine 2023-0 Yes 30mg Take 1 [facility] ers 30 mg 3-24 tablet by ity of tablet 10:06: mouth. [place] [address] Medical Branch mirtazapine 2023-0 Yes 30mg Take 1 [facility] ers 30 mg 3-24 tablet by ity of tablet 10:06: mouth. [place] [address] Medical Branch clonazePAM 2023-0 Yes 1mg Take 1 Un[facility] rs 1 mg tablet 3-24 tablet by ity of 10:06: mouth 3 [place] (three) Medical times Branch daily as needed. clonazePAM 2023-0 Yes 1mg Take 1 Un[facility] rs 1 mg tablet 3-24 tablet by ity of 10:06: mouth 3 [place] [address] (three) Medical times Branch daily as needed. clonazePAM 2023-0 Yes 1mg Take 1 [facility] rs 1 mg tablet 3-24 tablet by ity of 10:06: mouth 3 [place] [address] (three) Medical times Branch daily as needed. clonazePAM 2023-0 Yes 1mg Take 1 [facility] rs 1 mg tablet 3-24 tablet by ity of 10:06: mouth 3 [place] [address] (three) Medical times Branch daily as needed. clonazePAM 2023-0 Yes 1mg Take 1 [facility] rs 1 mg tablet 3-24 tablet by ity of 10:06: mouth 3 [place] [address] (three) Medical times Branch daily as needed. clonazePAM 2023-0 Yes 1mg Take 1 Un[facility] rs 1 mg tablet 3-24 tablet by ity of 10:06: mouth 3 [place] [address] (three) Medical times Branch daily as needed. albuterol 3-0 Yes [id number] 2{puff} Inhale 2 [facility] 90 3-24 Puffs ity of mcg/actuati 00:00: every 4 [place] as on inhaler 00 (four) Medical hours as Branch needed for Wheezing or Shortness of Breath. bromphenira 2023-0 Yes [id number] 10mL Take 10 mL [facility] mine-pseudo 3-24 by mouth 4 it y of ephedrine-D 00:00: (four) [place] (BROMFED 00 times Medical DM) 2-30-10 daily as Bran ch mg/5 mL needed for syrup Congestion /Allergies . omeprazole 2023-0 Yes [id number] 40mg Take 1 [facility] 40 mg 3-24 capsule by ity of capsule 00:00: mouth in [place] 00 the Medical morning. Branch predniSONE 2022-0 Yes [id number] Take two [facility] 20 mg 3-24 tabs for ity of tablet 00:00: three [place] days, take Medical one tab Branch for three days albuterol 2022-0 Yes [id number] 2{puff} Inhale 2 [facility] 90 3-24 Puffs ity of mcg/actuati 00:00: every 4 [place] on inhaler 00 (four) Medical hours as Branch needed for Wheezing or Shortness of Breath. bromphenira 2022-0 Yes [id number] 10mL Take 10 mL [facility] mine-pseudo 3-24 by mouth 4 it y of ephedrine-D 00:00: (four) [place] (BROMFED 00 times Medical DM) 2-30-10 daily as Bran ch mg/5 mL needed for syrup Congestion /Allergies . omeprazole 2022-0 Yes [id number] 40mg Take 1 [facility] 40 mg 3-24 capsule by ity of capsule 00:00: mouth in [place] 00 the Medical morning. Branch predniSONE 2022-0 Yes [id number] Take two [facility] 20 mg 3-24 tabs for ity of tablet 00:00: three [place] days, take Medical one tab Branch for three days albuterol 2022-0 Yes [id number] 2{puff} Inhale 2 [facility] 90 3-24 Puffs ity of mcg/actuati 00:00: every 4 [place] on inhaler 00 (four) Medical hours as Branch needed for Wheezing or Shortness of Breath. bromphenira 2022-0 Yes [id number] 10mL Take 10 mL [facility] mine-pseudo 3-24 by mouth 4 it y of ephedrine-D 00:00: (four) [place] (BROMFED 00 times Medical DM) 2-30-10 daily as Bran ch mg/5 mL needed for syrup Congestion /Allergies . predniSONE 2022-0 Yes [id number] Take two [facility] 20 mg 3-24 tabs for ity of tablet 00:00: three [place] days, take Medical one tab Branch for three days cefpodoxime 2022-0 Yes [id number] 200mg Take 1 [facility] 200 mg 3-24 tablet by ity of tablet 00:00: mouth in [place] 00 the Medical morning Branch and 1 tablet in the evening. azithromyci 2022-0 Yes [id number] 500mg Take 1 [facility] n 500 mg 3-24 tablet by ity of tablet 00:00: mouth in [place] 00 the Medical morning. Branch albuterol 2022-0 Yes [id number] 2{puff} Inhale 2 [facility] 90 3-24 Puffs ity of mcg/actuati 00:00: every 4 [place] on inhaler 00 (four) Medical hours as Branch needed for Wheezing or Shortness of Breath. bromphenira 2022-0 Yes [id number] 10mL Take 10 mL [facility] mine-pseudo 3-24 by mouth 4 it y of ephedrine-D 00:00: (four) [place] (BROMFED 00 times Medical DM) 2-30-10 daily as Bran ch mg/5 mL needed for syrup Congestion /Allergies . predniSONE 2022-0 Yes [id number] Take two [facility] 20 mg 3-24 tabs for ity of tablet 00:00: three [place] 00 days, take Medical one tab Branch for three days cefpodoxime 2022-0 Yes [id number] 200mg Take 1 [facility] 200 mg 3-24 tablet by ity of tablet 00:00: mouth in [place] the Medical morning Branch and 1 tablet in the evening. azithromyci 2022-0 Yes [id number] 500mg Take 1 [facility] n 500 mg 3-24 tablet by ity of tablet 00:00: mouth in [place] 00 the Medical morning. Branch albuterol 2022-0 Yes [id number] 2{puff} Inhale 2 [facility] 90 3-24 Puffs ity of mcg/actuati 00:00: every 4 [place] on inhaler 00 (four) Medical hours as Branch needed for Wheezing or Shortness of Breath. cefpodoxime 2022-0 Yes [id number] 200mg Take 1 [facility] 200 mg 3-24 tablet by ity of tablet 00:00: mouth in [place] the Medical morning Branch and 1 tablet in the evening. azithromyci 2022-0 Yes [id number] 500mg Take 1 [facility] n 500 mg 3-24 tablet by ity of tablet 00:00: mouth in [place] 00 the Medical morning. Branch albuterol 2022-0 Yes [id number] 2{puff} Inhale 2 [facility] 90 3-24 Puffs ity of mcg/actuati 00:00: every 4 [place] on inhaler 00 (four) Medical hours as Branch needed for Wheezing or Shortness of Breath. cefpodoxime 3-0 Yes [id number] 200mg Take 1 [facility] 200 mg 3-24 tablet by ity of tablet 00:00: mouth in [place] 00 the Medical morning Branch and 1 tablet in the evening. azithromyci 2023-0 Yes [id number] 500mg Take 1 [facility] n 500 mg 3-24 tablet by ity of tablet 00:00: mouth in [place] 00 the Medical morning. Branch albuterol 3-0 Yes [id number] 2{puff} Inhale 2 [facility] 90 3-24 Puffs ity of mcg/actuati 00:00: every 4 [place] on inhaler 00 (four) Medical hours as Branch needed for Wheezing or Shortness of Breath. azithromyci 3-0 Yes [id number] 500mg Take 1 [facility] n 500 mg 3-24 tablet by ity of tablet 00:00: mouth in [place] the Medical morning. Branch omeprazole 3-0 Yes 40mg Take 1 [facility] rs 40 mg 3-24 capsule by ity of capsule 00:00: mouth in [place] the Medical morning. Branch albuterol 3-0 Yes [id number] 2{puff} Inhale 2 [facility] 90 3-24 Puffs ity of mcg/actuati 00:00: every 4 [place] on inhaler 00 (four) Medical hours as Branch needed for Wheezing or Shortness of Breath. azithromyci 3-0 Yes [id number] 500mg Take 1 [facility] n 500 mg 3-24 tablet by ity of tablet 00:00: mouth in [place] the Medical morning. Branch omeprazole 2023-0 Yes 40mg Take 1 [facility] rs 40 mg 3-24 capsule by ity of capsule 00:00: mouth in [place] the Medical morning. Branch azithromyci 2023-0 Yes [id number] 500mg Take 1 [facility] n 500 mg 3-24 tablet by ity of tablet 00:00: mouth in [place] the Medical morning. Branch omeprazole 2023-0 Yes 40mg Take 1 [facility] rs 40 mg 3-24 capsule by ity of capsule 00:00: mouth in [place] the Medical morning. Branch azithromyci 2023-0 Yes [id number] 500mg Take 1 [facility] n 500 mg 3-24 tablet by ity of tablet 00:00: mouth in [place] 00 the Medical morning. Branch omeprazole 3-0 Yes 40mg Take 1 [facility] rs 40 mg 3-24 capsule by ity of capsule 00:00: mouth in [place] 00 the Medical morning. Branch azithromyci 3-0 Yes [id number] 500mg Take 1 [facility] n 500 mg 3-24 tablet by ity of tablet 00:00: mouth in [place] 00 the Medical morning. Branch omeprazole 3-0 Yes 40mg Take 1 [facility] rs 40 mg 3-24 capsule by ity of capsule 00:00: mouth in [place] 00 the Medical morning. Branch azithromyci 3-0 3- No [id number] 500mg Take 1 [facility] n 500 mg 3-24 04-14 tablet by ity o f tablet 00:00: 00:00 mouth in [place] 00 :00 the Medical morning. Branch omeprazole 3-0 3- No 40mg Take 1 [facility] ers 40 mg 3-24 04-14 capsule by ity of capsule 00:00: 00:00 mouth in [place] 00 :00 the Medical morning. Branch albuterol 3-0 2023- No [id number] 2{puff} Inhale 2 [facility] 90 3-24 04-07 Puffs ity of mcg/actuati 00:00: 00:00 every 4 [place] on inhaler 00 :00 (four) Medical hours as Branch needed for Wheezing or Shortness of Breath. albuterol 3-0 3- No [id number] 2{puff} Inhale 2 [facility] 90 3-24 04-07 Puffs ity of mcg/actuati 00:00: 00:00 every 4 [place] on inhaler 00 :00 (four) Medical hours as Branch needed for Wheezing or Shortness of Breath. cefpodoxime 2023-0 2023- No [id number] 200mg Take 1 [facility] 200 mg 3-24 04-03 tablet by ity of tablet 00:00: 00:00 mouth in [place] 00 :00 the Medical morning Branch and 1 tablet in the evening. cefpodoxime 2023-0 2023- No [id number] 200mg Take 1 [facility] 200 mg 3-24 04-03 tablet by ity of tablet 00:00: 00:00 mouth in [place] 00 :00 the Medical morning Branch and 1 tablet in the evening. bromphenira 2022- No [id number] 10mL Take 10 mL [facility] mine-pseudo -11-05 by mouth 4 i ty of ephedrine-D 00:00: 00:00 (four) [place] (BROMFED 00 :00 times Medical DM) 2-30-10 daily as Bran ch mg/5 mL needed for syrup Congestion /Allergies . predniSONE 2022- No [id number] Take two [facility] 20 mg 3-24 - tabs for ity of tablet 00:00: 00:00 three [place] 00 :00 days, take Medical one tab Branch for three days bromphenira 2022- No [id number] 10mL Take 10 mL [facility] mine-pseudo -11-05 by mouth 4 i ty of ephedrine-D 00:00: 00:00 (four) [place] (BROMFED 00 :00 times Medical DM) 2-30-10 daily as Bran ch mg/5 mL needed for syrup Congestion /Allergies . predniSONE 2022- No [id number] Take two [facility] 20 mg -24 - tabs for ity of tablet 00:00: 00:00 three [place] 00 :00 days, take Medical one tab Branch for three days omeprazole 2022- No [id number] 40mg Take 1 [facility] 40 mg -11-01 capsule by ity of capsule 00:00: 00:00 mouth in [place] 00 :00 the Medical morning. Branch busPIRone Yes [facility] 10 mg 3-14 ity of tablet 00:00: [place] Medical Branch busPIRone 0 Yes [facility] 10 mg 3-14 ity of tablet 00:00: [place] Medical Branch busPIRone 2022-0 Yes [facility] 10 mg 3-14 ity of tablet 00:00: [place] Medical Branch busPIRone 2022-0 Yes [facility] 10 mg 3-14 ity of tablet 00:00: [place] Medical Branch busPIRone 2022-0 Yes [facility] 10 mg 3-14 ity of tablet 00:00: [place] Medical Branch busPIRone 2022-0 Yes [facility] 10 mg 3-14 ity of tablet 00:00: [place] 00 Medical Branch busPIRone 2022- No Take by [facility] ers 10 mg 10-22- mouth 2 ity of tablet 00:00: 00:00 (two) [place] 00 :00 times Medical daily as Branch needed. busPIRone 2022-2022- No Take by [facility] ers 10 mg 10-22- mouth 2 ity of tablet 00:00: 00:00 (two) [place] 00 :00 times Medical daily as Branch needed. levalbutero 2022- No 1.25mg 1.25 mg, Univers l (XOPENEX) 10-16 Inhalation i ty of nebulizer 09:15: 08:31 , ONCE, 1 [place] solution 00 :00 dose, On Medical 1.25 mg 10/16/22 Branch at 0315, Routine proMETHazin No 25mg 25 mg, IV Univers e 10-16 Piggyback, ity of (PHENERGAN) 08:30: 08:49 ONCE, 1 [place] 25 mg in 00 :00 dose, On Medical NaCl 0.9% Fri10/16/22 Bran ch (NS) 50 mL at 0230, IV MEGHA piggyback dexamethaso No 10mg 10 mg, Uni vers ne sod phos 10-16 Slow IV ity of PF 08:30: 08:50 Push, [place] injection 00 :00 ONCE, 1 Medical 10 mg dose, On Branch 10/16/22 at 0230, 1 mL ipratropium No .5mg 0.5 mg, Un manoj (ATROVENT) 10-16 Inhalation it y of 0.02 % 08:30: 08:31 , ONCE, 1 [place] nebulizer 00 :00 dose, On Medica l solution Fri10/16/22 Branc h 0.5 mg at 0230, MEGHA oxymetazoli 2022- No 1{spray 1 [place], Univers ne 10-16 } Nasal, ity of (OXYMETAZOL 08:30: 08:18 ONCE, 1 [place] INE HCL) 00 :00 dose, On Medical 0.05 % Fri10/16/22 Branch nasal spray at 0230, 1 [place] MEGHA amoxicillin 2022-0 Yes [id number] 1{tbl} Take 1 [facility] -clavulanat 3-08 tablet by ity of e [id number] 00:00: mouth [place] mg per 00 every 12 Medical tablet (twelve) Branch hours. albuterol 2022-0 Yes [id number] 2{puff} Inhale 2 [facility] 90 3-08 Puffs ity of mcg/actuati 00:00: every 4 [place] on inhaler 00 (four) Medical hours as Branch needed for Wheezing or Shortness of Breath. benzonatate 2022-0 Yes [id number] 100mg Take 1 [facility] 100 mg 3-08 capsule by ity of capsule 00:00: mouth 3 [place] 00 (three) Medical times Branch daily as needed for Cough. amoxicillin 2022-0 3- No [id number] 1{tbl} Take 1 [facility] -clavulanat 3-08 03-24 tablet by it y of e 875-125 00:00: 00:00 mouth [place] mg per 00 :00 every 12 Medical tablet (twelve) Branch hours. albuterol 2022-0 2023- No [id number] 2{puff} Inhale 2 [facility] 90 3-08 03-24 Puffs ity of mcg/actuati 00:00: 00:00 every 4 [place] on inhaler 00 :00 (four) Medical hours as Branch needed for Wheezing or Shortness of Breath. benzonatate 2022-0 3- No [id number] 100mg Take 1 [facility] 100 mg 3-08 03-24 capsule by ity of capsule 00:00: 00:00 mouth 3 [place] 00 :00 (three) Medical times Branch daily as needed for Cough. amoxicillin 2022-0 2023- No [id number] 1{tbl} Take 1 [facility] -clavulanat 3-08 03-24 tablet by it y of e 875-125 00:00: 00:00 mouth [place] mg per 00 :00 every 12 Medical tablet (twelve) Branch hours. albuterol 2022-0 2023- No [id number] 2{puff} Inhale 2 [facility] 90 3-08 03-24 Puffs ity of mcg/actuati 00:00: 00:00 every 4 [place] on inhaler 00 :00 (four) Medical hours as Branch needed for Wheezing or Shortness of Breath. benzonatate 202-0 2022- No [id number] 100mg Take 1 [facility] 100 mg 10-1624 capsule by ity of capsule 00:00: 00:00 mouth 3 [place] 00 :00 (three) Medical times Branch daily as needed for Cough. amoxicillin 2022-0 2022- No [id number] 1{tbl} Take 1 [facility] -clavulanat 10-16-24 tablet by it y of e 875-125 00:00: 00:00 mouth [place] mg per 00 :00 every 12 Medical tablet (twelve) Branch hours. albuterol 2022-0 2022- No [id number] 2{puff} Inhale 2 [facility] 90 10-16-24 Puffs ity of mcg/actuati 00:00: 00:00 every 4 [place] on inhaler 00 :00 (four) Medical hours as Branch needed for Wheezing or Shortness of Breath. benzonatate 2022-0 2022- No [id number] 100mg Take 1 [facility] 100 mg 10-16 capsule by ity of capsule 00:00: 00:00 mouth 3 [place] 00 :00 (three) Medical times Branch daily as needed for Cough. mirtazapine 2022-0 Yes 30mg Take 1 [facility] (REMERON) 3-06 Tablet by [facility] ge 30 MG 16:26: mouth of tablet 51 nightly. Medicin e trazodone 2022-0 Yes 200mg Take 200 [facility] (DESYREL) 3-06 mg by [facility] 100 MG 16:26: mouth of tablet 25 nightly. Medicin e hydrOXYzine 2022-0 Yes 50mg Take 50 mg [facility] (ATARAX) 25 3-06 by mouth [facility] MG tablet 16:26: nightly. of 25 Medicin e metoclopram 3-0 Yes 5mg Take 1 [facility] 3-06 Tablet by [facility] (REGLAN) 5 16:26: mouth four o f MG tablet 25 times Medicin daily. e escitalopra 3-0 Yes 20mg Take 20 mg [facility] m (LEXAPRO) 3-06 by mouth [place] [facility] 20 MG 16:26: daily. of tablet 25 Medicin e lamotrigine 3-0 Yes 200mg Take 200 [facility] (LAMICTAL) 3-06 mg by [facility] 200 MG 16:26: mouth of tablet 25 daily. Medicin e buPROPion 2022-0 Yes 150mg Take 150 [place] [facility] (WELLBUTRIN 3-06 mg by [facility] , ZYBDREW) 16:26: mouth two of 150 MG SR 25 times Medicin tablet daily. e Bismuth 2022-0 Yes Take by [facility] Subsalicyla 3-06 mouth. [facility] 525 16:26: of MG/15ML 25 Medicin SUSP e ClonazePAM 2022-0 Yes .25mg Take 0.25 [facility] (KLONOPIN 3-06 mg by [facility] OR) 16:26: mouth. of 25 Medicin e Fesoterodin 2022-0 Yes Take by [place] [facility] Fumarate 3-06 mouth. [facility] 4 MG TB24 16:26: of 25 Medicin e TraMADol 2022-0 Yes Take by [facility] HCl 100 MG 3-06 mouth. [place] CP24 16:26: of 25 Medicin e atorvastati 2022-0 Yes 40mg Take 40 mg Ean n (LIPITOR) 3-06 by mouth [place] [facility] 40 MG 16:26: daily. of tablet 25 Medicin e lamotrigine 2022-0 Yes 250mg Take 250 [facility] (LAMICTAL) 3-06 mg by [facility] 200 MG 16:26: mouth. of tablet 25 Medicin e Fesoterodin 2022-0 Yes 4mg Take 4 mg [facility] e Fumarate 3-06 by mouth. [facility] 4 MG TB24 16:26: of 25 Medicin e sertraline 2022-0 Yes 50mg Take 1 [facility] (ZOLOFT) 50 3-06 Tablet by [facility] lege MG tablet 16:26: mouth of 25 daily. Medicin e divalproex 2022-0 Yes 500mg Take 500 [facility] (DEPAKOTE) 3-06 mg by [place] 500 MG EC 16:26: mouth of tablet 25 nightly. Medicin e Ondansetron 2022-0 Yes Take by [place] [facility] HCl (ZOFRAN 3-06 mouth. Colleg e OR) 16:24: of Medicin e Cetirizine 2022-0 Yes Take by [facility] HCl (ZYRTEC 3-06 mouth. Colleg e ALLERGY OR) 16:24: of 01 Medicin e ondansetron 2023-0 Yes 4mg Take 1 [facility] (ZOFRAN) 4 3-06 Tablet by [facility] MG tablet 16:24: mouth of 01 every 8 Medicin hours as e needed. lipase-prot 3-0 Yes [id number] 1{capsu Take 1 [facility] ease-amylas 3-03 le} capsule by it y of e 00:00: mouth as [place] 36,000-114, 00 needed for Me dical 000- Nausea and Branch 180,000 Vomiting unit CpDR (N/V). Take 2 capsules by mouth with meals and 1 with each snack. ondansetron 3-0 Yes [id number] 4mg Take 1 [facility] 4 mg 3-03 tablet by ity of disintegrat 00:00: mouth [place] ing tablet 00 every 8 Medica l (eight) Branch hours as needed for Nausea and Vomiting (N/V). proMETHazin 2023-0 Yes [id number] 25mg Take 1 [facility] e 25 mg 3-03 tablet by ity of tablet 00:00: mouth [place] 00 every 6 Medical (six) Branch hours as needed for N/V unresponsi ve to Ondansetro n. metoclopram 2022-0 Yes [id number] 10mg Take 1 [facility] HCl 10 3-03 tablet by it[facility] of mg tablet 00:00: mouth [place] 00 bedtime as Medical needed for Branch Nausea and Vomiting (N/V). lipase-prot 2022-0 Yes [id number] 1{capsu Take 1 [facility] ease-amylas 3-03 le} capsule by it y of e 00:00: mouth as [place] 36,000-114, 00 needed for Me dical 000- Nausea and Branch 180,000 Vomiting unit CpDR (N/V). Take 2 capsules by mouth with meals and 1 with each snack. ondansetron 3-0 Yes [id number] 4mg Take 1 [facility] 4 mg 3-03 tablet by ity of disintegrat 00:00: mouth [place] ing tablet 00 every 8 Medica l (eight) Branch hours as needed for Nausea and Vomiting (N/V). proMETHazin 2023-0 Yes [id number] 25mg Take 1 [facility] e 25 mg 3-03 tablet by ity of tablet 00:00: mouth [place] 00 every 6 Medical (six) Branch hours as needed for N/V unresponsi ve to Ondansetro n. metoclopram 3-0 Yes [id number] 10mg Take 1 [facility] HCl 10 3-03 tablet by ity of mg tablet 00:00: mouth [place] 00 bedtime as Medical needed for Branch Nausea and Vomiting (N/V). lipase-prot 2022-0 Yes [id number] 1{capsu Take 1 [facility] ease-amylas 3-03 le} capsule by it y of e 00:00: mouth as [place] 36,000-114, 00 needed for Me dical 000- Nausea and Branch 180,000 Vomiting unit CpDR (N/V). Take 2 capsules by mouth with meals and 1 with each snack. ondansetron 2022-0 Yes [id number] 4mg Take 1 [facility] 4 mg 3-03 tablet by ity of disintegrat 00:00: mouth [place] ing tablet 00 every 8 Medica l (eight) Branch hours as needed for Nausea and Vomiting (N/V). proMETHazin 2022-0 Yes [id number] 25mg Take 1 [facility] e 25 mg 3-03 tablet by ity of tablet 00:00: mouth [place] 00 every 6 Medical (six) Branch hours as needed for N/V unresponsi ve to Ondansetro n. metoclopram 2022-0 Yes [id number] 10mg Take 1 [facility] HCl 10 3-03 tablet by ity of mg tablet 00:00: mouth [place] 00 bedtime as Medical needed for Branch Nausea and Vomiting (N/V). lipase-prot 2022-0 Yes [id number] 1{capsu Take 1 [facility] ease-amylas 3-03 le} capsule by it y of e 00:00: mouth as [place] 36,000-114, 00 needed for Me dical 000- Nausea and Branch 180,000 Vomiting unit CpDR (N/V). Take 2 capsules by mouth with meals and 1 with each snack. ondansetron 3-0 Yes [id number] 4mg Take 1 [facility] 4 mg 3-03 tablet by ity of disintegrat 00:00: mouth [place] ing tablet 00 every 8 Medica l (eight) Branch hours as needed for Nausea and Vomiting (N/V). proMETHazin 2023-0 Yes [id number] 25mg Take 1 [facility] e 25 mg 3-03 tablet by ity of tablet 00:00: mouth [place] 00 every 6 Medical (six) Branch hours as needed for N/V unresponsi ve to Ondansetro n. metoclopram 2022-0 Yes [id number] 10mg Take 1 [facility] HCl 10 3-03 tablet by ity of mg tablet 00:00: mouth [place] 00 bedtime as Medical needed for Branch Nausea and Vomiting (N/V). lipase-prot 2022-0 Yes [id number] 1{capsu Take 1 [facility] ease-amylas 3-03 le} capsule by it y of e 00:00: mouth as [place] 36,000-114, 00 needed for Me dical 000- Nausea and Branch 180,000 Vomiting unit CpDR (N/V). Take 2 capsules by mouth with meals and 1 with each snack. ondansetron 2022-0 Yes [id number] 4mg Take 1 [facility] 4 mg 3-03 tablet by ity of disintegrat 00:00: mouth [place] ing tablet 00 every 8 Medica l (eight) Branch hours as needed for Nausea and Vomiting (N/V). proMETHazin 2022-0 Yes [id number] 25mg Take 1 [facility] e 25 mg 3-03 tablet by ity of tablet 00:00: mouth [place] 00 every 6 Medical (six) Branch hours as needed for N/V unresponsi ve to Ondansetro n. metoclopram 2022-0 Yes [id number] 10mg Take 1 [facility] HCl 10 3-03 tablet by ity of mg tablet 00:00: mouth [place] 00 bedtime as Medical needed for Branch Nausea and Vomiting (N/V). lipase-prot 2022-0 Yes [id number] 1{capsu Take 1 [facility] ease-amylas 3-03 le} capsule by it y of e 00:00: mouth as [place] 36,000-114, 00 needed for Me dical 000- Nausea and Branch 180,000 Vomiting unit CpDR (N/V). Take 2 capsules by mouth with meals and 1 with each snack. ondansetron 2022-0 Yes [id number] 4mg Take 1 [facility] 4 mg 3-03 tablet by ity of disintegrat 00:00: mouth [place] ing tablet 00 every 8 Medica l (eight) Branch hours as needed for Nausea and Vomiting (N/V). proMETHazin 2023-0 Yes [id number] 25mg Take 1 [facility] e 25 mg 3-03 tablet by ity of tablet 00:00: mouth [place] 00 every 6 Medical (six) Branch hours as needed for N/V unresponsi ve to Ondansetro n. metoclopram 3-0 Yes [id number] 10mg Take 1 [facility] HCl 10 3-03 tablet by ity of mg tablet 00:00: mouth [place] 00 bedtime as Medical needed for Branch Nausea and Vomiting (N/V). lipase-prot 2022-0 Yes [id number] 1{capsu Take 1 [facility] ease-amylas 3-03 le} capsule by it y of e 00:00: mouth as [place] 36,000-114, 00 needed for Me dical 000- Nausea and Branch 180,000 Vomiting unit CpDR (N/V). Take 2 capsules by mouth with meals and 1 with each snack. ondansetron 2022-0 Yes [id number] 4mg Take 1 [facility] 4 mg 3-03 tablet by ity of disintegrat 00:00: mouth [place] ing tablet 00 every 8 Medica l (eight) Branch hours as needed for Nausea and Vomiting (N/V). proMETHazin 2022-0 Yes [id number] 25mg Take 1 [facility] e 25 mg 3-03 tablet by ity of tablet 00:00: mouth [place] 00 every 6 Medical (six) Branch hours as needed for N/V unresponsi ve to Ondansetro n. metoclopram 2022-0 Yes [id number] 10mg Take 1 [facility] HCl 10 3-03 tablet by ity of mg tablet 00:00: mouth [place] 00 bedtime as Medical needed for Branch Nausea and Vomiting (N/V). lipase-prot 2022-0 Yes [id number] 1{capsu Take 1 [facility] ease-amylas 3-03 le} capsule by it y of e 00:00: mouth as [place] 36,000-114, 00 needed for Me dical 000- Nausea and Branch 180,000 Vomiting unit CpDR (N/V). Take 2 capsules by mouth with meals and 1 with each snack. ondansetron 3-0 Yes [id number] 4mg Take 1 [facility] 4 mg 3-03 tablet by ity of disintegrat 00:00: mouth [place] ing tablet 00 every 8 Medica l (eight) Branch hours as needed for Nausea and Vomiting (N/V). proMETHazin 2023-0 Yes [id number] 25mg Take 1 [facility] e 25 mg 3-03 tablet by ity of tablet 00:00: mouth [place] 00 every 6 Medical (six) Branch hours as needed for N/V unresponsi ve to Ondansetro n. metoclopram 3-0 Yes [id number] 10mg Take 1 [facility] HCl 10 3-03 tablet by ity of mg tablet 00:00: mouth [place] 00 bedtime as Medical needed for Branch Nausea and Vomiting (N/V). lipase-prot 3-0 Yes [id number] 1{capsu Take 1 [facility] ease-amylas 3-03 le} capsule by it y of e 00:00: mouth as [place] 36,000-114, 00 needed for Me dical 000- Nausea and Branch 180,000 Vomiting unit CpDR (N/V). Take 2 capsules by mouth with meals and 1 with each snack. ondansetron 2022-0 Yes [id number] 4mg Take 1 [facility] 4 mg 3-03 tablet by ity of disintegrat 00:00: mouth [place] ing tablet 00 every 8 Medica l (eight) Branch hours as needed for Nausea and Vomiting (N/V). proMETHazin 2022-0 Yes [id number] 25mg Take 1 [facility] e 25 mg 3-03 tablet by ity of tablet 00:00: mouth [place] 00 every 6 Medical (six) Branch hours as needed for N/V unresponsi ve to Ondansetro n. metoclopram 2022-0 Yes [id number] 10mg Take 1 [facility] HCl 10 3-03 tablet by ity of mg tablet 00:00: mouth [place] 00 bedtime as Medical needed for Branch Nausea and Vomiting (N/V). lipase-prot 2023-0 Yes [id number] 1{capsu Take 1 [facility] ease-amylas 3-03 le} capsule by it y of e 00:00: mouth as [place] 36,000-114, 00 needed for Me dical 000- Nausea and Branch 180,000 Vomiting unit CpDR (N/V). Take 2 capsules by mouth with meals and 1 with each snack. ondansetron 3-0 Yes [id number] 4mg Take 1 [facility] 4 mg 3-03 tablet by ity of disintegrat 00:00: mouth [place] ing tablet 00 every 8 Medica l (eight) Branch hours as needed for Nausea and Vomiting (N/V). proMETHazin 2022-0 Yes [id number] 25mg Take 1 [facility] e 25 mg 3-03 tablet by ity of tablet 00:00: mouth [place] 00 every 6 Medical (six) Branch hours as needed for N/V unresponsi ve to Ondansetro n. metoclopram 2022-0 Yes [id number] 10mg Take 1 [facility] HCl 10 3-03 tablet by ity of mg tablet 00:00: mouth [place] 00 bedtime as Medical needed for Branch Nausea and Vomiting (N/V). lipase-prot 2022-0 Yes [id number] 1{capsu Take 1 [facility] ease-amylas 3-03 le} capsule by it y of e 00:00: mouth as [place] 36,000-114, 00 needed for Me dical 000- Nausea and Branch 180,000 Vomiting unit CpDR (N/V). Take 2 capsules by mouth with meals and 1 with each snack. ondansetron 2022-0 Yes [id number] 4mg Take 1 [facility] 4 mg 3-03 tablet by ity of disintegrat 00:00: mouth [place] ing tablet 00 every 8 Medica l (eight) Branch hours as needed for Nausea and Vomiting (N/V). proMETHazin 2022-0 Yes [id number] 25mg Take 1 [facility] e 25 mg 3-03 tablet by ity of tablet 00:00: mouth [place] 00 every 6 Medical (six) Branch hours as needed for N/V unresponsi ve to Ondansetro n. metoclopram 2022-0 Yes [id number] 10mg Take 1 [facility] HCl 10 3-03 tablet by ity of mg tablet 00:00: mouth [place] 00 bedtime as Medical needed for Branch Nausea and Vomiting (N/V). lipase-prot 3-0 Yes [id number] 1{capsu Take 1 [facility] ease-amylas 3-03 le} capsule by it y of e 00:00: mouth as [place] 36,000-114, 00 needed for Me dical 000- Nausea and Branch 180,000 Vomiting unit CpDR (N/V). Take 2 capsules by mouth with meals and 1 with each snack. ondansetron 2023-0 Yes [id number] 4mg Take 1 [facility] 4 mg 3-03 tablet by ity of disintegrat 00:00: mouth [place] ing tablet 00 every 8 Medica l (eight) Branch hours as needed for Nausea and Vomiting (N/V). proMETHazin 2022-0 Yes [id number] 25mg Take 1 [facility] e 25 mg 3-03 tablet by ity of tablet 00:00: mouth [place] 00 every 6 Medical (six) Branch hours as needed for N/V unresponsi ve to Ondansetro n. metoclopram 2022-0 Yes [id number] 10mg Take 1 [facility] HCl 10 3-03 tablet by ity of mg tablet 00:00: mouth at [place] 00 bedtime as Medical needed for Branch Nausea and Vomiting (N/V). lipase-prot 2022-0 Yes [id number] 1{capsu Take 1 [facility] ease-amylas 3-03 le} capsule by it y of e 00:00: mouth as [place] 36,000-114, 00 needed for Me dical 000- Nausea and Branch 180,000 Vomiting unit CpDR (N/V). Take 2 capsules by mouth with meals and 1 with each snack. ondansetron 2022-0 Yes [id number] 4mg Take 1 [facility] 4 mg 3-03 tablet by ity of disintegrat 00:00: mouth [place] ing tablet 00 every 8 Medica l (eight) Branch hours as needed for Nausea and Vomiting (N/V). proMETHazin 3-0 Yes [id number] 25mg Take 1 [facility] e 25 mg 3-03 tablet by ity of tablet 00:00: mouth [place] 00 every 6 Medical (six) Branch hours as needed for N/V unresponsi ve to Ondansetro n. metoclopram 2022-0 Yes [id number] 10mg Take 1 [facility] HCl 10 3-03 tablet by ity of mg tablet 00:00: mouth [place] 00 bedtime as Medical needed for Branch Nausea and Vomiting (N/V). lipase-prot 2022-0 Yes [id number] 1{capsu Take 1 [facility] ease-amylas 3-03 le} capsule by it y of e 00:00: mouth as [place] 36,000-114, 00 needed for Me dical 000- Nausea and Branch 180,000 Vomiting unit CpDR (N/V). Take 2 capsules by mouth with meals and 1 with each snack. ondansetron 2023-0 Yes [id number] 4mg Take 1 [facility] 4 mg 3-03 tablet by ity of disintegrat 00:00: mouth [place] ing tablet 00 every 8 Medica l (eight) Branch hours as needed for Nausea and Vomiting (N/V). proMETHazin 2023-0 Yes [id number] 25mg Take 1 [facility] e 25 mg 3-03 tablet by ity of tablet 00:00: mouth [place] 00 every 6 Medical (six) Branch hours as needed for N/V unresponsi ve to Ondansetro n. metoclopram 3-0 Yes [id number] 10mg Take 1 [facility] HCl 10 3-03 tablet by ity of mg tablet 00:00: mouth at [place] 00 bedtime as Medical needed for Branch Nausea and Vomiting (N/V). lipase-prot 2022-0 Yes [id number] 1{capsu Take 1 [facility] ease-amylas 3-03 le} capsule by it y of e 00:00: mouth as [place] 36,000-114, 00 needed for Sd dical 000- Nausea and Branch 180,000 Vomiting unit CpDR (N/V). Take 2 capsules by mouth with meals and 1 with each snack. ondansetron 3-0 Yes [id number] 4mg Take 1 [facility] 4 mg 3-03 tablet by ity of disintegrat 00:00: mouth [place] ing tablet 00 every 8 Medica l (eight) Branch hours as needed for Nausea and Vomiting (N/V). proMETHazin 3-0 Yes [id number] 25mg Take 1 [facility] e 25 mg 3-03 tablet by ity of tablet 00:00: mouth [place] 00 every 6 Medical (six) Branch hours as needed for N/V unresponsi ve to Ondansetro n. metoclopram 3-0 Yes [id number] 10mg Take 1 [facility] HCl 10 3-03 tablet by ity of mg tablet 00:00: mouth at [place] 00 bedtime as Medical needed for Branch Nausea and Vomiting (N/V). lipase-prot 2023-0 Yes [id number] 1{capsu Take 1 [facility] ease-amylas 3-03 le} capsule by it y of e 00:00: mouth as [place] 36,000-114, 00 needed for Me dical 000- Nausea and Branch 180,000 Vomiting unit CpDR (N/V). Take 2 capsules by mouth with meals and 1 with each snack. ondansetron 3-0 Yes [id number] 4mg Take 1 [facility] 4 mg 3-03 tablet by ity of disintegrat 00:00: mouth [place] ing tablet 00 every 8 Medica l (eight) Branch hours as needed for Nausea and Vomiting (N/V). proMETHazin 3-0 Yes [id number] 25mg Take 1 [facility] e 25 mg 3-03 tablet by ity of tablet 00:00: mouth [place] 00 every 6 Medical (six) Branch hours as needed for N/V unresponsi ve to Ondansetro n. metoclopram 3-0 Yes [id number] 10mg Take 1 [facility] HCl 10 3-03 tablet by ity of mg tablet 00:00: mouth at [place] 00 bedtime as Medical needed for Branch Nausea and Vomiting (N/V). lipase-prot 2022-0 Yes [id number] 1{capsu Take 1 [facility] ease-amylas 3-03 le} capsule by it y of e 00:00: mouth as [place] 36,000-114, 00 needed for Me dical 000- Nausea and Branch 180,000 Vomiting unit CpDR (N/V). Take 2 capsules by mouth with meals and 1 with each snack. ondansetron 2022-0 Yes [id number] 4mg Take 1 [facility] 4 mg 3-03 tablet by ity of disintegrat 00:00: mouth [place] ing tablet 00 every 8 Medica l (eight) Branch hours as needed for Nausea and Vomiting (N/V). proMETHazin 3-0 Yes [id number] 25mg Take 1 [facility] e 25 mg 3-03 tablet by ity of tablet 00:00: mouth [place] 00 every 6 Medical (six) Branch hours as needed for N/V unresponsi ve to Ondansetro n. metoclopram 3-0 Yes [id number] 10mg Take 1 [facility] HCl 10 3-03 tablet by ity of mg tablet 00:00: mouth at [place] 00 bedtime as Medical needed for Branch Nausea and Vomiting (N/V). ondansetron 2023-0 Yes [id number] 4mg Take 1 [facility] 4 mg 3-03 tablet by ity of disintegrat 00:00: mouth [place] ing tablet 00 every 8 Medica l (eight) Branch hours as needed for Nausea and Vomiting (N/V). proMETHazin 2023-0 Yes [id number] 25mg Take 1 [facility] e 25 mg 3-03 tablet by ity of tablet 00:00: mouth [place] 00 every 6 Medical (six) Branch hours as needed for N/V unresponsi ve to Ondansetro n. metoclopram 2023-0 Yes [id number] 10mg Take 1 [facility] HCl 10 3-03 tablet by ity of mg tablet 00:00: mouth at [place] 00 bedtime as Medical needed for Branch Nausea and Vomiting (N/V). ondansetron 2023-0 Yes [id number] 4mg Take 1 [facility] 4 mg 3-03 tablet by ity of disintegrat 00:00: mouth [place] ing tablet 00 every 8 Medica l (eight) Branch hours as needed for Nausea and Vomiting (N/V). proMETHazin 3-0 Yes [id number] 25mg Take 1 [facility] e 25 mg 3-03 tablet by ity of tablet 00:00: mouth [place] 00 every 6 Medical (six) Branch hours as needed for N/V unresponsi ve to Ondansetro n. metoclopram 3-0 Yes [id number] 10mg Take 1 [facility] HCl 10 3-03 tablet by ity of mg tablet 00:00: mouth at [place] 00 bedtime as Medical needed for Branch Nausea and Vomiting (N/V). ondansetron 2023-0 Yes [id number] 4mg Take 1 [facility] 4 mg 3-03 tablet by ity of disintegrat 00:00: mouth [place] ing tablet 00 every 8 Medica l (eight) Branch hours as needed for Nausea and Vomiting (N/V). proMETHazin 2023-0 Yes [id number] 25mg Take 1 [facility] e 25 mg 3-03 tablet by ity of tablet 00:00: mouth [place] 00 every 6 Medical (six) Branch hours as needed for N/V unresponsi ve to Ondansetro n. metoclopram 2023-0 Yes [id number] 10mg Take 1 [facility] HCl 10 3-03 tablet by ity of mg tablet 00:00: mouth at [place] 00 bedtime as Medical needed for Branch Nausea and Vomiting (N/V). ondansetron 2023-0 Yes [id number] 4mg Take 1 [facility] 4 mg 3-03 tablet by ity of disintegrat 00:00: mouth [place] ing tablet 00 every 8 Medica l (eight) Branch hours as needed for Nausea and Vomiting (N/V). proMETHazin 2023-0 Yes [id number] 25mg Take 1 [facility] e 25 mg 3-03 tablet by ity of tablet 00:00: mouth [place] 00 every 6 Medical (six) Branch hours as needed for N/V unresponsi ve to Ondansetro n. metoclopram 2023-0 Yes [id number] 10mg Take 1 [facility] HCl 10 3-03 tablet by ity of mg tablet 00:00: mouth at [place] 00 bedtime as Medical needed for Branch Nausea and Vomiting (N/V). ondansetron 2023-0 Yes [id number] 4mg Take 1 [facility] 4 mg 3-03 tablet by ity of disintegrat 00:00: mouth [place] ing tablet 00 every 8 Medica l (eight) Branch hours as needed for Nausea and Vomiting (N/V). proMETHazin 2023-0 Yes [id number] 25mg Take 1 [facility] e 25 mg 3-03 tablet by ity of tablet 00:00: mouth [place] 00 every 6 Medical (six) Branch hours as needed for N/V unresponsi ve to Ondansetro n. metoclopram 2023-0 Yes [id number] 10mg Take 1 [facility] HCl 10 3-03 tablet by ity of mg tablet 00:00: mouth at [place] 00 bedtime as Medical needed for Branch Nausea and Vomiting (N/V). ondansetron 2023-0 Yes [id number] 4mg Take 1 [facility] 4 mg 3-03 tablet by ity of disintegrat 00:00: mouth [place] ing tablet 00 every 8 Medica l (eight) Branch hours as needed for Nausea and Vomiting (N/V). proMETHazin 2023-0 Yes [id number] 25mg Take 1 [facility] e 25 mg 3-03 tablet by ity of tablet 00:00: mouth [place] 00 every 6 Medical (six) Branch hours as needed for N/V unresponsi ve to Ondansetro n. metoclopram 2023-0 Yes [id number] 10mg Take 1 [facility] HCl 10 3-03 tablet by ity of mg tablet 00:00: mouth at [place] 00 bedtime as Medical needed for Branch Nausea and Vomiting (N/V). ondansetron 3-0 Yes [id number] 4mg Take 1 [facility] 4 mg 3-03 tablet by ity of disintegrat 00:00: mouth [place] ing tablet 00 every 8 Medica l (eight) Branch hours as needed for Nausea and Vomiting (N/V). proMETHazin 3-0 Yes [id number] 25mg Take 1 [facility] e 25 mg 3-03 tablet by ity of tablet 00:00: mouth [place] 00 every 6 Medical (six) Branch hours as needed for N/V unresponsi ve to Ondansetro n. metoclopram 3-0 Yes [id number] 10mg Take 1 [facility] HCl 10 3-03 tablet by ity of mg tablet 00:00: mouth at [place] 00 bedtime as Medical needed for Branch Nausea and Vomiting (N/V). ondansetron 3-0 Yes [id number] 4mg Take 1 [facility] 4 mg 3-03 tablet by ity of disintegrat 00:00: mouth [place] ing tablet 00 every 8 Medica l (eight) Branch hours as needed for Nausea and Vomiting (N/V). proMETHazin 3-0 Yes [id number] 25mg Take 1 [facility] e 25 mg 3-03 tablet by ity of tablet 00:00: mouth [place] 00 every 6 Medical (six) Branch hours as needed for N/V unresponsi ve to Ondansetro n. metoclopram 3-0 Yes [id number] 10mg Take 1 [facility] HCl 10 3-03 tablet by [facility]y of mg tablet 00:00: mouth [place] 00 bedtime as Medical needed for Branch Nausea and Vomiting (N/V). ondansetron 2023-0 Yes [id number] 4mg Take 1 [facility] 4 mg 3-03 tablet by ity of disintegrat 00:00: mouth [place] ing tablet 00 every 8 Medica l (eight) Branch hours as needed for Nausea and Vomiting (N/V). proMETHazin 2023-0 Yes [id number] 25mg Take 1 [facility] e 25 mg 3-03 tablet by ity of tablet 00:00: mouth [place] 00 every 6 Medical (six) Branch hours as needed for N/V unresponsi ve to Ondansetro n. metoclopram 2023-0 Yes [id number] 10mg Take 1 [facility] HCl 10 3-03 tablet by ity of mg tablet 00:[place] bed[place] as Medical needed for Branch Nausea and Vomiting (N/V). ondansetron 2023-0 Yes [id number] 4mg Take 1 [facility] 4 mg 3-03 tablet by ity of disintegrat 00:00: mouth [place] ing tablet 00 every 8 Medica l (eight) Branch hours as needed for Nausea and Vomiting (N/V). proMETHazin 2023-0 Yes [id number] 25mg Take 1 [facility] e 25 mg 3-03 tablet by ity of tablet 00:00: mouth [place] 00 every 6 Medical (six) Branch hours as needed for N/V unresponsi ve to Ondansetro n. metoclopram 2023-0 Yes [id number] 10mg Take 1 [facility] [place]resa HCl 10 3-03 tablet by [facility]y [place] mg tablet 00:00: [place] 00 bedtime as Medical needed for Branch Nausea and Vomiting (N/V). ondansetron 2023-0 Yes [id number] 4mg Take 1 [facility] 4 mg 3-03 tablet by ity of disintegrat 00:00: mouth [place] ing tablet 00 every 8 Medica l (eight) Branch hours as needed for Nausea and Vomiting (N/V). proMETHazin 2023-0 Yes [id number] 25mg Take 1 [facility] e 25 mg 3-03 tablet by ity of tablet 00:00: mouth [place] 00 every 6 Medical (six) Branch hours as needed for N/V unresponsi ve to Ondansetro n. metoclopram 2023-0 Yes [id number] 10mg Take 1 [facility] teresa HCl 10 3-03 tablet by [facility]y of mg tablet 00:00: [place] 00 bedtime as Medical needed for Branch Nausea and Vomiting (N/V). ondansetron 2023-0 Yes [id number] 4mg Take 1 [facility] 4 mg 3-03 tablet by ity of disintegrat 00:00: mouth [place] ing tablet 00 every 8 Medica l (eight) Branch hours as needed for Nausea and Vomiting (N/V). proMETHazin 2023-0 Yes [id number] 25mg Take 1 [facility] e 25 mg 3-03 tablet by ity of tablet 00:00: mouth [place] 00 every 6 Medical (six) Branch hours as needed for N/V unresponsi ve to Ondansetro n. metoclopram 2023-0 Yes [id number] 10mg Take 1 [facility] teresa HCl 10 3-03 tablet by [facility]y of mg tablet 00:00: [place] 00 bedtime as Medical needed for Branch Nausea and Vomiting (N/V). ondansetron 2023-0 Yes [id number] 4mg Take 1 [facility] 4 mg 3-03 tablet by ity of disintegrat 00:00: mouth [place] ing tablet 00 every 8 Medica l (eight) Branch hours as needed for Nausea and Vomiting (N/V). proMETHazin 2023-0 Yes [id number] 25mg Take 1 [facility] e 25 mg 3-03 tablet by ity of tablet 00:00: mouth [place] 00 every 6 Medical (six) Branch hours as needed for N/V unresponsi ve to Ondansetro n. metoclopram 2023-0 Yes [id number] 10mg Take 1 [facility] teresa HCl 10 3-03 tablet by [facility]y of mg tablet 00:00: [place] 00 bedtime as Medical needed for Branch Nausea and Vomiting (N/V). ondansetron 2023-0 Yes [id number] 4mg Take 1 [facility] 4 mg 3-03 tablet by ity of disintegrat 00:00: mouth [place] ing tablet 00 every 8 Medica l (eight) Branch hours as needed for Nausea and Vomiting (N/V). proMETHazin 2023-0 Yes [id number] 25mg Take 1 [facility] e 25 mg 3-03 tablet by ity of tablet 00:00: mouth [place] 00 every 6 Medical (six) Branch hours as needed for N/V unresponsi ve to Ondansetro n. metoclopram 2023-0 Yes [id number] 10mg Take 1 [facility] teresa HCl 10 3-03 tablet by [facility]y of mg tablet 00:00: [place] 00 bedtime as Medical needed for Branch Nausea and Vomiting (N/V). ondansetron 2023-0 Yes [id number] 4mg Take 1 [facility] 4 mg 3-03 tablet by ity of disintegrat 00:00: mouth [place] ing tablet 00 every 8 Medica l (eight) Branch hours as needed for Nausea and Vomiting (N/V). proMETHazin Yes [id number] 25mg Take 1 [facility] e 25 mg 3-03 tablet by ity of tablet 00:00: mouth [place] 00 every 6 Medical (six) Branch hours as needed for N/V unresponsi ve to Ondansetro n. metoclopram 0 Yes [id number] 10mg Take 1 [facility] teresa HCl 10 3-03 tablet by [facility] mg tablet 00:00: [place] 00 bedtime as Medical needed for Branch Nausea and Vomiting (N/V). lipase-prot 202- No [id number] 1{capsu Take 1 [facility] ease-amylas 3-03 05-16 le} capsule by i ty of e 00:00: 00:00 mouth as [place] 36,000-114, 00 :00 needed for Me dical 000- Nausea and Branch 180,000 Vomiting unit CpDR (N/V). Take 2 capsules by mouth with meals and 1 with each snack. albuterol Yes [id number] 2{puff} Inhale 2 [facility] 90 2-21 Puffs ity of mcg/actuati 00:00: every 6 [place] on inhaler 00 (six) Medical hours as Branch needed for Wheezing or Shortness of Breath. albuterol Yes [id number] 2{puff} Inhale 2 [facility] 90 2-21 Puffs ity of mcg/actuati 00:00: every 6 [place] on inhaler 00 (six) Medical hours as Branch needed for Wheezing or Shortness of Breath. albuterol Yes [id number] 2{puff} Inhale 2 [facility] 90 2-21 Puffs ity of mcg/actuati 00:00: every 6 [place] on inhaler 00 (six) Medical hours as Branch needed for Wheezing or Shortness of Breath. albuterol Yes [id number] 2{puff} Inhale 2 [facility] 90 2-21 Puffs ity of mcg/actuati 00:00: every 6 [place] on inhaler 00 (six) Medical hours as Branch needed for Wheezing or Shortness of Breath. albuterol Yes [id number] 2{puff} Inhale 2 [facility] 90 2-21 Puffs ity of mcg/actuati 00:00: every 6 [place] on inhaler 00 (six) Medical hours as Branch needed for Wheezing or Shortness of Breath. albuterol Yes [id number] 2{puff} Inhale 2 [facility] 90 2-21 Puffs ity of mcg/actuati 00:00: every 6 [place] on inhaler 00 (six) Medical hours as Branch needed for Wheezing or Shortness of Breath. albuterol 2022- No [id number] 2{puff} Inhale 2 [facility] 90 2-21 03-08 Puffs ity of mcg/actuati 00:00: 00:00 every 6 [place] inhaler 00 :00 (six) Medical hours as Branch needed for Wheezing or Shortness of Breath. amoxicillin 2022- No [id number] 1{tbl} Take 1 [facility] -clavulanat 2-21 -01 tablet by it y of e 00:00: 05:59 mouth in [place] (AUGMENTIN) 00 :00 the Medical 875-125 mg morning Branch per tablet and 1 tablet in the evening. Do all this for 7 days. amoxicillin 2022- No [id number] 1{tbl} Take 1 [facility] -clavulanat 2-21 - tablet by it y of e 00:00: 05:59 mouth in [place] (AUGMENTIN) 00 :00 the Medical 875-125 mg morning Branch per tablet and 1 tablet in the evening. Do all this for 7 days. amoxicillin 2022- No [id number] 1{tbl} Take 1 [facility] -clavulanat 2-21 - tablet by it y of e 00:00: 05:59 mouth in [place] (AUGMENTIN) 00 :00 the Medical 875-125 mg morning Branch per tablet and 1 tablet in the evening. Do all this for 7 days. ketorolac 2022- No 60mg 60 mg, Unive rs (TORADOL) 09-26 Intramuscu ity of injection 12:45: 00:44 [place], ONCE, [place] 60 mg 00 :00 1 dose, On Medical [place] Branch 09/26/22 at 0645, Routine methocarbam 2023-0 2023- No 1000mg 1,000 mg, [facility] oL 2-16 02-16 Oral, ity of (ROBAXIN) 11:45: 11:52 ONCE, 1 [place] tablet 00 :00 dose, On Medical 1,000 mg [place] Branch 09/26/22 at 0545, MEGHA methocarbam 3-0 Yes [id number] 750mg Take 1 [facility] oL 750 mg 2-16 tablet by ity o f tablet 00:00: mouth [place] 00 every 6 Medical (six) Branch hours as needed (MUSCLE SPASM). acetaminoph 3-0 Yes [id number] 1{tbl} Take 1 Un manoj en-codeine 2-16 tablet by ity of (TYLENOL-CO 00:00: mouth [place] DEINE #3) 00 every 4 Medical 300-30 mg (four) Branch tablet hours as needed for Pain (scale 7-10). Indication s: acute pain acetaminoph 3-0 Yes [id number] 1{tbl} Take 1 Un manoj en-codeine 2-16 tablet by ity of (TYLENOL-CO 00:00: mouth [place] DEINE #3) 00 every 4 Medical 300-30 mg (four) Branch tablet hours as needed for Pain (scale 7-10). Indication s: acute pain acetaminoph 3-0 Yes [id number] 1{tbl} Take 1 Un manoj en-codeine 2-16 tablet by ity of (TYLENOL-CO 00:00: mouth [place] DEINE #3) 00 every 4 Medical 300-30 mg (four) Branch tablet hours as needed for Pain (scale 7-10). Indication s: acute pain acetaminoph 2023-0 Yes [id number] 1{tbl} Take 1 Un manoj en-codeine 2-16 tablet by ity of (TYLENOL-CO 00:00: mouth [place] DEINE #3) 00 every 4 Medical 300-30 mg (four) Branch tablet hours as needed for Pain (scale 7-10). Indication s: acute pain acetaminoph 2023-0 Yes [id number] 1{tbl} Take 1 Un manoj en-codeine 2-16 tablet by ity of (TYLENOL-CO 00:00: mouth [place] DEINE #3) 00 every 4 Medical 300-30 mg (four) Branch tablet hours as needed for Pain (scale 7-10). Indication s: acute pain acetaminoph 2023-0 Yes [id number] 1{tbl} Take 1 Un manoj en-codeine 2-16 tablet by ity of (TYLENOL-CO 00:00: mouth [place] DEINE #3) 00 every 4 Medical 300-30 mg (four) Branch tablet hours as needed for Pain (scale 7-10). Indication s: acute pain acetaminoph 2023-0 Yes [id number] 1{tbl} Take 1 Un manoj en-codeine 2-16 tablet by ity of (TYLENOL-CO 00:00: mouth [place] DEINE #3) 00 every 4 Medical 300-30 mg (four) Branch tablet hours as needed for Pain (scale 7-10). Indication s: acute pain acetaminoph 2023-0 Yes 4647 1{tbl} Take 1 Un manoj en-codeine 2-16 tablet by ity of (TYLENOL-CO 00:00: mouth [place] DEINE #3) 00 every 4 Medical 300-30 mg (four) Branch tablet hours as needed for Pain (scale 7-10). Indication s: acute pain acetaminoph 2023-0 Yes 4647 1{tbl} Take 1 Un manoj en-codeine 2-16 tablet by ity of (TYLENOL-CO 00:00: mouth [place] DEINE #3) 00 every 4 Medical 300-30 mg (four) Branch tablet hours as needed for Pain (scale 7-10). Indication s: acute pain acetaminoph 2023-0 Yes 4647 1{tbl} Take 1 Un manoj en-codeine 2-16 tablet by ity of (TYLENOL-CO 00:00: mouth [place] DEINE #3) 00 every 4 Medical 300-30 mg (four) Branch tablet hours as needed for Pain (scale 7-10). Indication s: acute pain acetaminoph 2023-0 Yes 4647 1{tbl} Take 1 Un manoj en-codeine 2-16 tablet by ity of (TYLENOL-CO 00:00: mouth [place] DEINE #3) 00 every 4 Medical 300-30 mg (four) Branch tablet hours as needed for Pain (scale 7-10). Indication s: acute pain acetaminoph 2023-0 Yes 4647 1{tbl} Take 1 Un manoj en-codeine 2-16 tablet by ity of (TYLENOL-CO 00:00: mouth [place] DEINE #3) 00 every 4 Medical 300-30 mg (four) Branch tablet hours as needed for Pain (scale 7-10). Indication s: acute pain acetaminoph 2022-0 2022- No 4647 1{tbl} Take 1 U nivers en-codeine 2-16 -28 tablet by ity of (TYLENOL-CO 00:00: 00:00 [place] DEINE #3) 00 :00 every 4 Medical 300-30 mg (four) Branch tablet hours as needed for Pain (scale 7-10). Indication s: acute pain acetaminoph 2022-0 2022- No 4647 1{tbl} Take 1 U nivers en-codeine -16 - tablet by ity of (TYLENOL-CO 00:00: 00:00 [place] DEINE #3) 00 :00 every 4 Medical 300-30 mg (four) Branch tablet hours as needed for Pain (scale 7-10). Indication s: acute pain methocarbam 3-0 3- No [id number] 750mg Take 1 [facility] oL 750 mg -16 -21 tablet by ity of tablet 00:00: 00:00 mouth [place] 00 :00 every 6 Medical (six) Branch hours as needed (MUSCLE SPASM). methocarbam 3-0 2022- No [id number] 750mg Take 1 [facility] oL 750 mg -16 -21 tablet by ity of tablet 00:00: 00:00 mouth [place] 00 :00 every 6 Medical (six) Branch hours as needed (MUSCLE SPASM). mirtazapine 2023-0 Yes daily. Univ ers 15 mg 2-14 ity of tablet 00:00: [place] 00 Medical Branch mirtazapine 2023-0 Yes daily. Univ ers 15 mg 2-14 ity of tablet 00:00: 00 Medical Branch mirtazapine 2023-0 Yes daily. Univ ers 15 mg 2-14 ity of tablet 00:00: 00 Medical Branch mirtazapine 2023-0 Yes daily. Univ ers 15 mg 2-14 ity of tablet 00:00: 00 Medical Branch mirtazapine 2023-0 Yes daily. Univ ers 15 mg 2-14 ity of tablet 00:00: [place] 00 [facility] mirtazapine 2023-0 Yes daily. Univ ers 15 mg 2-14 ity of tablet 00:00: 00 [facility] mirtazapine 2023-0 Yes daily. Univ ers 15 mg 2-14 ity of tablet 00:00: 00 [facility] mirtazapine 2023-0 2023- No daily. Uni vers 15 mg 2-14 -24 ity of tablet 00:00: 00:00 [place] 00 :00 [facility] mirtazapine 2023-0 2023- No daily. Uni vers 15 mg 2-14 -24 ity of tablet 00:00: 00:00 [place] 00 :00 [facility] mirtazapine 3-0 2023- No daily. Uni vers 15 mg 2-14 -24 ity of tablet 00:00: 00:00 [place] 00 :00 [facility] haloperidol 2022-0 2022- No 2.5mg 2.5 mg, U nivers lactate 09-09 Intravenou ity o f (HALDOL) 16:45: 17:16 s, ONCE, 1 [place] injection 00 :00 dose, On Medica l 2.5 mg Mon Branch 09/09/22 at 1045, STAT metoclopram No 10mg 10 mg, Uni vers [place] HCl 09-09 Slow IV ity of (REGLAN) 14:45: 14:57 [place], [place] injection 00 :00 ONCE, 1 Medical 10 mg dose, On Branch [facility] 09/09/22 at 0845, MEGHA NaCl 0.9% No 1000mL at 999 Uni vers (NS) bolus 09-09 mL/hr, ity of infusion 14:15: 15:00 1,000 mL, [place] as 1,000 mL 00 :00 IV Medical Infusion, Branch ONCE, 1 dose, On Fri09/09/22 at 0815, MEG[place] famotidine 2022- No 20mg 20 mg, Univ ers (PEPCID 09-09 Slow IV ity of (PF)) 13:30: 13:42 [place], [place] injection 00 :00 ONCE, 1 Medical 20 mg dose, On Branch 09/09/22 at 0730, MEGHA proMETHazin 2022- No 25mg 25 mg, IV Univers e 09-09 Piggyback, ity of (PHENERGAN) 13:30: 13:43 ONCE, 1 [place] 25 mg in 00 :00 dose, On Medical NaCl 0.9% Mon Branch (NS) 50 mL 09/09/22 at IV 0730, MEG[place] piggyback [facility] Yes [id number] 1{capsu Take 1 U nivers Blue-Sod 1-25 le} capsule by ity o f Phos-PhSal- 00:00: mouth 2 [place] 00 (two) Medical (URIBEL) times Branch 118-10-40.8 daily as -36 mg needed for capsule Other (bladder spasms). [facility] Yes [id number] 1{capsu Take 1 U nivers Blue-Sod 1-25 le} capsule by ity o f Phos-PhSal- 00:00: mouth 2 [place] 00 (two) Medical (URIBEL) times Branch 118-10-40.8 daily as -36 mg needed for capsule Other (bladder spasms). [facility] Yes [id number] 1{capsu Take 1 U nivers Blue-Sod 1-25 le} capsule by ity o f Phos-PhSal- 00:00: mouth 2 [place] 00 (two) Medical (URIBEL) times Branch 118-10-40.8 daily as -36 mg needed for capsule Other (bladder spasms). [facility] 2022- No [id number] 1{capsu Take 1 [facility] Blue-Sod 1-25 02-21 le} capsule by ity of Phos-PhSal- 00:00: 00:00 mouth 2 [place] 00 :00 (two) Medical (URIBEL) times Branch 118-10-40.8 daily as -36 mg needed for capsule Other (bladder spasms). [facility] No [id number] 1{capsu Take 1 [facility] Blue-Sod 1-25 02-21 le} capsule by ity of Phos-PhSal- 00:00: 00:00 mouth 2 [place] Hyo 00 :00 (two) Medical (URIBEL) times Branch 118-10-40.8 daily as -36 mg needed for capsule Other (bladder spasms). lipase-prot 0 2022- No 1{capsu Take 1 [facility] ease-amylas 1-19 01-19 le} capsule by i ty of e 11:18: 00:00 mouth as [place] 36,000-114, 18 :00 needed. Medic al 000- Take 2 Branch 180,000 capsules unit CpDR by mouth with meals and 1 with each snack. lipase-prot 2022- No 1{capsu Take 1 [facility] ease-amylas 1-19 01-19 le} capsule by i ty of e 11:18: 00:00 mouth as [place] 36,000-114, 18 :00 needed. Medic al 000- Take 2 Branch 180,000 capsules unit CpDR by mouth with meals and 1 with each snack. lipase-prot 0 Yes [id number] 1{capsu Take 1 [facility] ease-amylas 1-19 le} capsule by it y of e 00:00: mouth as [place] 36,000-114, 00 needed for Me dical 000- Nausea and Branch 180,000 Vomiting unit CpDR (N/V). Take 2 capsules by mouth with meals and 1 with each snack. cetirizine Yes [id number] 10mg Take 1 U nivers (ZYRTEC) 10 1-19 tablet by ity of mg tablet 00:00: [place] 00 the Medical morning. Branch proMETHazin Yes [id number] 25mg Take 1 Univers e 25 mg 1-19 tablet by ity of tablet 00:00: mouth [place] 00 every 6 Medical (six) Branch hours as needed for N/V unresponsi ve to Ondansetro n. ondansetron Yes [id number] 4mg Take 1 [facility] 4 mg 1-19 tablet by ity of disintegrat 00:00: mouth [place] ing tablet 00 every 8 Medica l (eight) Branch hours as needed for Nausea and Vomiting (N/V). lipase-prot 0 Yes [id number] 1{capsu Take 1 [facility] ease-amylas 1-19 le} capsule by it y of e 00:00: mouth as [place] 36,000-114, 00 needed for Me dical 000- Nausea and Branch 180,000 Vomiting unit CpDR (N/V). Take 2 capsules by mouth with meals and 1 with each snack. cetirizine 2022-0 Yes [id number] 10mg Take 1 U nivers (ZYRTEC) 10 1-19 tablet by ity of mg tablet 00:00: [place] 00 the Medical morning. Branch proMETHazin 2022-0 Yes [id number] 25mg Take 1 Univers e 25 mg 1-19 tablet by ity of tablet 00:00: mouth [place] 00 every 6 Medical (six) Branch hours as needed for N/V unresponsi ve to Ondansetro n. ondansetron 2022-0 Yes [id number] 4mg Take 1 [facility] 4 mg 1-19 tablet by ity of disintegrat 00:00: mouth [place] ing tablet 00 every 8 Medica l (eight) Branch hours as needed for Nausea and Vomiting (N/V). lipase-prot 2022-0 Yes [id number] 1{capsu Take 1 [facility] ease-amylas 1-19 le} capsule by it y of e 00:00: mouth as [place] 36,000-114, 00 needed for Me dical 000- Nausea and Branch 180,000 Vomiting unit CpDR (N/V). Take 2 capsules by mouth with meals and 1 with each snack. cetirizine 0 Yes [id number] 10mg Take 1 U nivers (ZYRTEC) 10 1-19 tablet by ity of mg tablet 00:00: mouth [place] 00 the Medical morning. Branch proMETHazin 2022-0 Yes [id number] 25mg Take 1 Univers e 25 mg 1-19 tablet by ity of tablet 00:00: mouth [place] 00 every 6 Medical (six) Branch hours as needed for N/V unresponsi ve to Ondansetro n. ondansetron 2022-0 Yes [id number] 4mg Take 1 [facility] 4 mg 1-19 tablet by ity of disintegrat 00:00: mouth [place] ing tablet 00 every 8 Medica l (eight) Branch hours as needed for Nausea and Vomiting (N/V). lipase-prot 2022-0 Yes [id number] 1{capsu Take 1 [facility] ease-amylas 1-19 le} capsule by it y of e 00:00: mouth as [place] 36,000-114, 00 needed for Me dical 000- Nausea and Branch 180,000 Vomiting unit CpDR (N/V). Take 2 capsules by mouth with meals and 1 with each snack. cetirizine 2022-0 Yes [id number] 10mg Take 1 U nivers (ZYRTEC) 10 1-19 tablet by ity of mg tablet 00:00: mouth [place] 00 the Medical morning. Branch proMETHazin 0 Yes [id number] 25mg Take 1 Univers e 25 mg 1-19 tablet by ity of tablet 00:00: mouth [place] 00 every 6 Medical (six) Branch hours as needed for N/V unresponsi ve to Ondansetro n. ondansetron 2022-0 Yes [id number] 4mg Take 1 [facility] 4 mg 1-19 tablet by ity of disintegrat 00:00: mouth [place] ing tablet 00 every 8 Medica l (eight) Branch hours as needed for Nausea and Vomiting (N/V). lipase-prot 2022-0 Yes [id number] 1{capsu Take 1 [facility] ease-amylas 1-19 le} capsule by it y of e 00:00: mouth as [place] 36,000-114, 00 needed for Me dical 000- Nausea and Branch 180,000 Vomiting unit CpDR (N/V). Take 2 capsules by mouth with meals and 1 with each snack. cetirizine 0 Yes [id number] 10mg Take 1 U nivers (ZYRTEC) 10 1-19 tablet by ity of mg tablet 00:00: mouth [place] 00 the Medical morning. Branch proMETHazin 0 Yes [id number] 25mg Take 1 Univers e 25 mg 1-19 tablet by ity of tablet 00:00: mouth [place] 00 every 6 Medical (six) Branch hours as needed for N/V unresponsi ve to Ondansetro n. ondansetron 2022-0 Yes [id number] 4mg Take 1 [facility] 4 mg 1-19 tablet by ity of disintegrat 00:00: mouth [place] ing tablet 00 every 8 Medica l (eight) Branch hours as needed for Nausea and Vomiting (N/V). lipase-prot 2022-0 Yes [id number] 1{capsu Take 1 [facility] ease-amylas 1-19 le} capsule by it y of e 00:00: mouth as [place] 36,000-114, 00 needed for Me dical 000- Nausea and Branch 180,000 Vomiting unit CpDR (N/V). Take 2 capsules by mouth with meals and 1 with each snack. cetirizine Yes [id number] 10mg Take 1 U nivers (ZYRTEC) 10 1-19 tablet by ity of mg tablet 00:00: mouth [place] 00 the Medical morning. Branch proMETHazin Yes [id number] 25mg Take 1 Univers e 25 mg 1-19 tablet by ity of tablet 00:00: mouth [place] 00 every 6 Medical (six) Branch hours as needed for N/V unresponsi ve to Ondansetro n. ondansetron 0 Yes [id number] 4mg Take 1 [facility] 4 mg 1-19 tablet by ity of disintegrat 00:00: mouth [place] ing tablet 00 every 8 Medica l (eight) Branch hours as needed for Nausea and Vomiting (N/V). lipase-prot 2022-0 Yes [id number] 1{capsu Take 1 [facility] ease-amylas 1-19 le} capsule by it y of e 00:00: mouth as [place] 36,000-114, 00 needed for Me dical 000- Nausea and Branch 180,000 Vomiting unit CpDR (N/V). Take 2 capsules by mouth with meals and 1 with each snack. cetirizine Yes [id number] 10mg Take 1 U nivers (ZYRTEC) 10 1-19 tablet by ity of mg tablet 00:00: mouth [place] 00 the Medical morning. Branch proMETHazin 0 Yes [id number] 25mg Take 1 Univers e 25 mg 1-19 tablet by ity of tablet 00:00: mouth [place] 00 every 6 Medical (six) Branch hours as needed for N/V unresponsi ve to Ondansetro n. ondansetron 0 Yes [id number] 4mg Take 1 Univers 4 mg 1-19 tablet by ity of disintegrat 00:00: mouth [place] ing tablet 00 every 8 Medica l (eight) Branch hours as needed for Nausea and Vomiting (N/V). lipase-prot 2022-0 Yes [id number] 1{capsu Take 1 [facility] ease-amylas 1-19 le} capsule by it y of e 00:00: mouth as [place] 36,000-114, 00 needed for Sd dical 000- Nausea and Branch 180,000 Vomiting unit CpDR (N/V). Take 2 capsules by mouth with meals and 1 with each snack. cetirizine 2022-0 Yes [id number] 10mg Take 1 U nivers (ZYRTEC) 10 1-19 tablet by ity of mg tablet 00:00: mouth [place] 00 the Medical morning. Branch proMETHazin 2022-0 Yes [id number] 25mg Take 1 Univers e 25 mg 1-19 tablet by ity of tablet 00:00: mouth [place] 00 every 6 Medical (six) Branch hours as needed for N/V unresponsi ve to Ondansetro n. ondansetron 2022-0 Yes [id number] 4mg Take 1 Univers 4 mg 1-19 tablet by ity of disintegrat 00:00: mouth [place] ing tablet 00 every 8 Medica l (eight) Branch hours as needed for Nausea and Vomiting (N/V). cetirizine 2022-0 Yes [id number] 10mg Take 1 U nivers (ZYRTEC) 10 1-19 tablet by ity of mg tablet 00:00: mouth [place] 00 the Medical morning. Branch cetirizine 0 Yes [id number] 10mg Take 1 U nivers (ZYRTEC) 10 1-19 tablet by ity of mg tablet 00:00: mouth [place] 00 the Medical morning. Branch cetirizine 2022-0 Yes [id number] 10mg Take 1 U nivers (ZYRTEC) 10 1-19 tablet by ity of mg tablet 00:00: mouth [place] 00 the Medical morning. Branch cetirizine 2022-0 Yes [id number] 10mg Take 1 U nivers (ZYRTEC) 10 1-19 tablet by ity of mg tablet 00:00: mouth [place] 00 the Medical morning. Branch cetirizine 2022-0 Yes [id number] 10mg Take 1 U nivers (ZYRTEC) 10 1-19 tablet by ity of mg tablet 00:00: mouth [place] 00 the Medical morning. Branch cetirizine 2022-0 Yes [id number] 10mg Take 1 U nivers (ZYRTEC) 10 1-19 tablet by ity of mg tablet 00:00: mouth [place] 00 the Medical morning. Branch cetirizine 2022-0 Yes [id number] 10mg Take 1 U nivers (ZYRTEC) 10 1-19 tablet by ity of mg tablet 00:00: mouth [place] 00 the Medical morning. Branch cetirizine 2022-0 Yes [id number] 10mg Take 1 U nivers (ZYRTEC) 10 1-19 tablet by ity of mg tablet 00:00: mouth [place] 00 the Medical morning. Branch cetirizine 2022-0 Yes [id number] 10mg Take 1 U nivers (ZYRTEC) 10 1-19 tablet by ity of mg tablet 00:00: mouth [place] 00 the Medical morning. Branch cetirizine 2022-0 Yes [id number] 10mg Take 1 U nivers (ZYRTEC) 10 1-19 tablet by ity of mg tablet 00:00: mouth [place] 00 the Medical morning. Branch cetirizine 2022-0 Yes [id number] 10mg Take 1 U nivers (ZYRTEC) 10 1-19 tablet by ity of mg tablet 00:00: mouth [place] 00 the Medical morning. Branch cetirizine 2022-0 Yes [id number] 10mg Take 1 U nivers (ZYRTEC) 10 1-19 tablet by ity of mg tablet 00:00: mouth [place] 00 the Medical morning. Branch cetirizine 2022-0 Yes [id number] 10mg Take 1 U nivers (ZYRTEC) 10 1-19 tablet by ity of mg tablet 00:00: mouth [place] 00 the Medical morning. Branch cetirizine 2022-0 Yes [id number] 10mg Take 1 U nivers (ZYRTEC) 10 1-19 tablet by ity of mg tablet 00:00: mouth [place] 00 the Medical morning. Branch cetirizine 2022-0 Yes [id number] 10mg Take 1 U nivers (ZYRTEC) 10 1-19 tablet by ity of mg tablet 00:00: mouth [place] 00 the Medical morning. Branch cetirizine 2023-0 Yes [id number] 10mg Take 1 U nivers (ZYRTEC) 10 1-19 tablet by ity of mg tablet 00:00: mouth [place] 00 the Medical morning. Branch cetirizine 2022-0 Yes [id number] 10mg Take 1 U nivers (ZYRTEC) 10 1-19 tablet by ity of mg tablet 00:00: mouth [place] 00 the Medical morning. Branch cetirizine 2022-0 Yes [id number] 10mg Take 1 U nivers (ZYRTEC) 10 1-19 tablet by ity of mg tablet 00:00: mouth [place] 00 the Medical morning. Branch cetirizine 2022-0 Yes [id number] 10mg Take 1 U nivers (ZYRTEC) 10 1-19 tablet by ity of mg tablet 00:00: mouth [place] 00 the Medical morning. Branch cetirizine 2022-0 Yes [id number] 10mg Take 1 U nivers (ZYRTEC) 10 1-19 tablet by ity of mg tablet 00:00: mouth [place] 00 the Medical morning. Branch cetirizine 2022-0 Yes [id number] 10mg Take 1 U nivers (ZYRTEC) 10 1-19 tablet by ity of mg tablet 00:00: mouth [place] 00 the Medical morning. Branch cetirizine 2022-0 Yes [id number] 10mg Take 1 U nivers (ZYRTEC) 10 1-19 tablet by ity of mg tablet 00:00: mouth [place] 00 the Medical morning. Branch cetirizine 2022-0 Yes [id number] 10mg Take 1 U nivers (ZYRTEC) 10 1-19 tablet by ity of mg tablet 00:00: [place] 00 the Medical morning. Branch cetirizine 2022-0 Yes [id number] 10mg Take 1 [facility] nivers (ZYRTEC) 10 1-19 tablet by [facility] mg tablet 00:00: mouth [place] 00 the Medical morning. Branch cetirizine 3-0 Yes [id number] 10mg Take 1 [facility] n[facility] (ZYRTEC) 10 1-19 tablet by [facility] [place] mg tablet 00:00: mouth [place] 00 the Medical morning. Branch cetirizine 0 Yes [id number] 10mg Take 1 [facility] n[facility] (ZYRTEC) 10 1-19 tablet by [facility] mg tablet 00:00: mouth [place] 00 the Medical morning. Branch cetirizine 0 Yes [id number] 10mg Take 1 [facility] (ZYRTEC) 10 1-19 tablet by [facility] mg tablet 00:00: mouth [place] 00 the Medical morning. Branch cetirizine 2022-0 Yes [id number] 10mg Take 1 [facility] n[facility] (ZYRTEC) 10 1-19 tablet by [facility] mg tablet 00:00: mouth [place] 00 the Medical morning. Branch cetirizine 0 Yes [id number] 10mg Take 1 [facility] n[facility] (ZYRTEC) 10 1-19 tablet by [facility] mg tablet 00:00: mouth [place] 00 the Medical morning. Branch cetirizine 0 Yes [id number] 10mg Take 1 [facility] n[facility] (ZYRTEC) 10 1-19 tablet by [facility] mg tablet 00:00: mouth [place] 00 the Medical morning. Branch cetirizine 0 Yes [id number] 10mg Take 1 [facility] n[facility] (ZYRTEC) 10 1-19 tablet by [facility]y of mg tablet 00:00: mouth [place] 00 the Medical morning. Branch cetirizine 0 Yes [id number] 10mg Take 1 [facility] n[facility] (ZYRTEC) 10 1-19 tablet by [facility] mg tablet 00:00: mouth [place] 00 the Medical morning. Branch cetirizine 0 Yes [id number] 10mg Take 1 [facility] n[facility] (ZYRTEC) 10 1-19 tablet by [facility] mg tablet 00:00: mouth [place] 00 the Medical morning. [place] lipase-prot 0 2022- No [id number] 1{capsu Take 1 [facility] ease-amylas 08-29 le} capsule by i ty of e 00:00: 00:00 mouth as [place] 36,000-114, 00 :00 needed for Sd dical 000- Nausea and Branch 180,000 Vomiting unit CpDR (N/V). Take 2 capsules by mouth with meals and 1 with each snack. proMETHazin 2022- No [id number] 25mg Take 1 [facility] e 25 mg 08-29 tablet by ity of tablet 00:00: 00:00 mouth [place] 00 :00 every 6 Medical (six) Branch hours as needed for N/V unresponsi ve to Ondansetro n. ondansetron 2022- No [id number] 4mg Take 1 [facility] 4 mg 08-29 tablet by ity of disintegrat 00:00: 00:00 [place] tablet 00 :00 every 8 Medica l (eight) Branch hours as needed for Nausea and Vomiting (N/V). lipase-prot 2022- No [id number] 1{capsu Take 1 [facility] ease-amylas 08-29 le} capsule by i ty of e 00:00: 00:00 mouth as [place] 36,000-114, 00 :00 needed for Sd dical 000- Nausea and Branch 180,000 Vomiting unit CpDR (N/V). Take 2 capsules by mouth with meals and 1 with each snack. proMETHazin 2022- No [id number] 25mg Take 1 [facility] e 25 mg 08-29 tablet by ity of tablet 00:00: 00:00 mouth [place] 00 :00 every 6 Medical (six) Branch hours as needed for N/V unresponsi ve to Ondansetro n. ondansetron 2022- No [id number] 4mg Take 1 [facility] 4 mg 08-29 tablet by ity of disintegrat 00:00: 00:00 mouth [place] tablet 00 :00 every 8 Medica l (eight) Branch hours as needed for Nausea and Vomiting (N/V). furosemide 0 Yes [id number] 20mg Take 1 [facility] (LASIX) 20 1-11 tablet by [facility] of mg tablet 00:00: mouth [place] 00 the Medical morning. Branch furosemide Yes [id number] 20mg Take 1 [facility] (LASIX) 20 1-11 tablet by ity of mg tablet 00:00: mouth [place] 00 the Medical morning. Branch furosemide Yes [id number] 20mg Take 1 [facility] (LASIX) 20 1-11 tablet by [facility] of mg tablet 00:00: mouth [place] 00 the Medical morning. Branch furosemide 2022-0 Yes [id number] 20mg Take 1 [facility] (LASIX) 20 1-11 tablet by [facility] of mg tablet 00:00: mouth [place] 00 the Medical morning. Branch furosemide 2022-0 Yes [id number] 20mg Take 1 [facility] (LASIX) 20 1-11 tablet by ity of mg tablet 00:00: mouth [place] 00 the Medical morning. Branch furosemide 2022-0 Yes [id number] 20mg Take 1 [facility] (LASIX) 20 1-11 tablet by ity of mg tablet 00:00: mouth [place] 00 the Medical morning. Branch furosemide 0 Yes [id number] 20mg Take 1 [facility] (LASIX) 20 1-11 tablet by ity of mg tablet 00:00: mouth [place] 00 the Medical morning. Branch furosemide 2022-0 Yes [id number] 20mg Take 1 [facility] (LASIX) 20 1-11 tablet by [facility]y of mg tablet 00:00: mouth [place] 00 the Medical morning. Branch furosemide 2022-0 2022- No [id number] 20mg Take 1 [facility] (LASIX) 20 1-11 -21 tablet by ity of mg tablet 00:00: 00:00 mouth in [place] 00 :00 the Medical morning. [place] furosemide 2022-0 2022- No [id number] 20mg Take 1 [facility] (LASIX) 20 -11 02-21 tablet by ity of mg tablet 00:00: 00:00 mouth in [place] 00 :00 the Medical morning. [place] ondansetron 2022- No 4mg 4 mg, Slow [facility] (ZOFRAN 08-21 IV Push, ity of (PF)) 00:00: 01:20 ONCE, 1 [place] injection 4 00 :00 dose, On Medi darren mg [facility] 08/20/22 at 1800, MEG[place] ketorolac 2022-2022- No 30mg 30 mg, Unive rs (TORADOL) 08-21 Slow IV ity of injection 00:00: 01:22 Push, [place] 30 mg 00 :00 ONCE, 1 Medical dose, On Branch Fri08/20/22 at 1800, MEGHA NaCl 0.9% 2022-0 2022- No 1000mL at 999 Uni vers (NS) bolus 1-11 01-11 mL/hr, ity of infusion 00:00: 02:49 1,000 mL, [place] 1,000 mL 00 :00 IV Medical Infusion, Branch ONCE, 1 dose, On Fri08/20/22 at 1800, STAT ciprofloxac 2022-0 Yes [id number] 500mg Take 1 [facility] in HCl 500 1-10 tablet by ity of mg tablet 00:00: mouth [place] 00 the Medical morning Branch and 1 tablet in the evening. acetaminoph 2022-0 Yes [id number] 1{tbl} Take 1 Un manoj en-codeine 1-10 tablet by ity of (TYLENOL-CO 00:00: mouth [place] DEINE #3) 00 every 6 Medical 300-30 mg (six) Branch tablet hours as needed for Pain (scale 4-6) for up to 10 doses. Indication s: acute pain ciprofloxac 2022-0 Yes [id number] 500mg Take 1 [facility] in HCl 500 1-10 tablet by ity of mg tablet 00:00: mouth [place] 00 the Medical morning Branch and 1 tablet in the evening. acetaminoph 2022-0 Yes [id number] 1{tbl} Take 1 Un manoj en-codeine 1-10 tablet by ity of (TYLENOL-CO 00:00: mouth [place] DEINE #3) 00 every 6 Medical 300-30 mg (six) Branch tablet hours as needed for Pain (scale 4-6) for up to 10 doses. Indication s: acute pain ciprofloxac 2022-0 Yes [id number] 500mg Take 1 [facility] in HCl 500 1-10 tablet by ity of mg tablet 00:00: mouth [place] 00 the Medical morning Branch and 1 tablet in the evening. acetaminoph 2022-0 Yes [id number] 1{tbl} Take 1 Un manoj en-codeine 1-10 tablet by ity of (TYLENOL-CO 00:00: mouth [place] DEINE #3) 00 every 6 Medical 300-30 mg (six) Branch tablet hours as needed for Pain (scale 4-6) for up to 10 doses. Indication s: acute pain ciprofloxac 2023-0 Yes [id number] 500mg Take 1 [facility] in HCl 500 1-10 tablet by ity of mg tablet 00:00: mouth [place] 00 the Medical morning Branch and 1 tablet in the evening. acetaminoph 2023-0 Yes [id number] 1{tbl} Take 1 Un manoj en-codeine 1-10 tablet by ity of (TYLENOL-CO 00:00: mouth [place] DEINE #3) 00 every 6 Medical 300-30 mg (six) Branch tablet hours as needed for Pain (scale 4-6) for up to 10 doses. Indication s: acute pain ciprofloxac 2023-0 Yes [id number] 500mg Take 1 [facility] in HCl 500 1-10 tablet by ity of mg tablet 00:00: mouth [place] 00 the Medical morning Branch and 1 tablet in the evening. acetaminoph 2023-0 Yes [id number] 1{tbl} Take 1 Un manoj en-codeine 1-10 tablet by ity of (TYLENOL-CO 00:00: mouth [place] DEINE #3) 00 every 6 Medical 300-30 mg (six) Branch tablet hours as needed for Pain (scale 4-6) for up to 10 doses. Indication s: acute pain ciprofloxac 2023-0 Yes [id number] 500mg Take 1 [facility] in HCl 500 1-10 tablet by ity of mg tablet 00:00: mouth [place] 00 the Medical morning Branch and 1 tablet in the evening. ondansetron 3-0 Yes [id number] 4mg Take 1 [facility] 4 mg 1-10 tablet by ity of disintegrat 00:00: mouth [place] ing tablet 00 every 8 Medica l (eight) Branch hours as needed for Nausea and Vomiting (N/V) for up to 10 doses. acetaminoph 2023-0 Yes [id number] 1{tbl} Take 1 Un manoj en-codeine 1-10 tablet by ity of (TYLENOL-CO 00:00: mouth [place] DEINE #3) 00 every 6 Medical 300-30 mg (six) Branch tablet hours as needed for Pain (scale 4-6) for up to 10 doses. Indication s: acute pain ciprofloxac 2023-0 Yes [id number] 500mg Take 1 [facility] in HCl 500 1-10 tablet by ity of mg tablet 00:00: mouth [place] 00 the Medical morning Branch and 1 tablet in the evening. ondansetron 2023-0 Yes [id number] 4mg Take 1 [facility] 4 mg 1-10 tablet by ity of disintegrat 00:00: mouth [place] ing tablet 00 every 8 Medica l (eight) Branch hours as needed for Nausea and Vomiting (N/V) for up to 10 doses. acetaminoph 2023-0 Yes [id number] 1{tbl} Take 1 Un manoj en-codeine 1-10 tablet by ity of (TYLENOL-CO 00:00: mouth [place] DEINE #3) 00 every 6 Medical 300-30 mg (six) Branch tablet hours as needed for Pain (scale 4-6) for up to 10 doses. Indication s: acute pain ciprofloxac 2023-0 Yes [id number] 500mg Take 1 [facility] in HCl 500 1-10 tablet by ity of mg tablet 00:00: mouth [place] 00 the Medical morning Branch and 1 tablet in the evening. ondansetron 2023-0 Yes [id number] 4mg Take 1 [facility] 4 mg 1-10 tablet by ity of disintegrat 00:00: mouth [place] ing tablet 00 every 8 Medica l (eight) Branch hours as needed for Nausea and Vomiting (N/V) for up to 10 doses. acetaminoph 2023-0 Yes [id number] 1{tbl} Take 1 Un manoj en-codeine 1-10 tablet by ity of (TYLENOL-CO 00:00: mouth [place] DEINE #3) 00 every 6 Medical 300-30 mg (six) Branch tablet hours as needed for Pain (scale 4-6) for up to 10 doses. Indication s: acute pain ciprofloxac 2023-0 Yes [id number] 500mg Take 1 [facility] in HCl 500 1-10 tablet by ity of mg tablet 00:00: mouth in [place] 00 the Medical morning Branch and 1 tablet in the evening. ondansetron 2023-0 Yes [id number] 4mg Take 1 [facility] 4 mg 1-10 tablet by ity of disintegrat 00:00: mouth [place] ing tablet 00 every 8 Medica l (eight) Branch hours as needed for Nausea and Vomiting (N/V) for up to 10 doses. acetaminoph 2023-0 Yes [id number] 1{tbl} Take 1 Un manoj en-codeine 1-10 tablet by ity of (TYLENOL-CO 00:00: mouth [place] DEINE #3) 00 every 6 Medical 300-30 mg (six) Branch tablet hours as needed for Pain (scale 4-6) for up to 10 doses. Indication s: acute pain ciprofloxac 2022-0 Yes [id number] 500mg Take 1 [facility] in HCl 500 1-10 tablet by ity of mg tablet 00:00: mouth in [place] 00 the Medical morning Branch and 1 tablet in the evening. ondansetron 2022-0 Yes [id number] 4mg Take 1 [facility] 4 mg 1-10 tablet by ity of disintegrat 00:00: mouth [place] ing tablet 00 every 8 Medica l (eight) Branch hours as needed for Nausea and Vomiting (N/V) for up to 10 doses. acetaminoph 2022-0 Yes [id number] 1{tbl} Take 1 Un manoj en-codeine 1-10 tablet by ity of (TYLENOL-CO 00:00: mouth [place] DEINE #3) 00 every 6 Medical 300-30 mg (six) Branch tablet hours as needed for Pain (scale 4-6) for up to 10 doses. Indication s: acute pain ciprofloxac 2022-0 2022- No [id number] 500mg Take 1 [facility] in HCl 500 1-10 -21 tablet by ity of mg tablet 00:00: 00:00 mouth in [place] 00 :00 the Medical morning Branch and 1 tablet in the evening. acetaminoph 2022-0 3- No [id number] 1{tbl} Take 1 U nivers en-codeine 1-10 -21 tablet by ity of (TYLENOL-CO 00:00: 00:00 mouth [place] DEINE #3) 00 :00 every 6 Medical 300-30 mg (six) Branch tablet hours as needed for Pain (scale 4-6) for up to 10 doses. Indication s: acute pain ciprofloxac 2022-0 2022- No [id number] 500mg Take 1 [facility] in HCl 500 1-10 -21 tablet by ity of mg tablet 00:00: 00:00 mouth in [place] 00 :00 the Medical morning Branch and 1 tablet in the evening. acetaminoph 2022- No [id number] 1{tbl} Take 1 U nivers en-codeine 08-20 tablet by ity of (TYLENOL-CO 00:00: 00:00 mouth [place] DEINE #3) 00 :00 every 6 Medical 300-30 mg (six) Branch tablet hours as needed for Pain (scale 4-6) for up to 10 doses. Indication s: acute pain ondansetron 2022-3- No [id number] 4mg Take 1 [facility] 4 mg 08-20 tablet by ity of disintegrat 00:00: 00:00 mouth [place] ing tablet 00 :00 every 8 Medica l (eight) Branch hours as needed for Nausea and Vomiting (N/V) for up to 10 doses. ondansetron 2022-2022- No [id number] 4mg Take 1 [facility] 4 mg 08-20 tablet by ity of disintegrat 00:00: 00:00 mouth [place] ing tablet 00 :00 every 8 Medica l (eight) Branch hours as needed for Nausea and Vomiting (N/V) for up to 10 doses. methocarbam 3-0 Yes [id number] 500mg Take 1 Univers oL 500 mg 1-09 4 tablet by ity o f tablet 00:00: mouth (four) Medical times Branch daily. methocarbam 3-0 Yes [id number] 500mg Take 1 [facility] oL 500 mg 1-09 4 tablet by ity o f tablet 00:00: mouth (four) Medical times Branch daily. methocarbam 2023-0 Yes [id number] 500mg Take 1 [facility] oL 500 mg 1-09 4 tablet by ity o f tablet 00:00: mouth (four) Medical times Branch daily. methocarbam 2023-0 Yes [id number] 500mg Take 1 [facility] oL 500 mg 1-09 4 tablet by ity o f tablet 00:00: mouth (four) Medical times Branch daily. methocarbam 2023-0 Yes [id number] 500mg Take 1 [facility] oL 500 mg 1-09 4 tablet by ity o f tablet 00:00: mouth 4 (four) Medical times Branch daily. methocarbam 2023-0 Yes [id number] 500mg Take 1 [facility] oL 500 mg 08-19 4 tablet by ity o f tablet 00:00: mouth 4 [place] 00 (four) Medical times Branch daily. methocarbam 2023-0 Yes [id number] 500mg Take 1 [facility] oL 500 mg 08-19 4 tablet by ity o f tablet 00:00: mouth 4 [place] 00 (four) Medical times Branch daily. methocarbam 2023-0 Yes [id number] 500mg Take 1 [facility] oL 500 mg 08-19 4 tablet by ity o f tablet 00:00: mouth 4 [place] 00 (four) Medical times Branch daily. methocarbam 2023-0 Yes [id number] 500mg Take 1 [facility] oL 500 mg 08-19 4 tablet by ity o f tablet 00:00: mouth 4 [place] 00 (four) Medical times Branch daily. methocarbam 3-0 Yes [id number] 500mg Take 1 [facility] oL 500 mg 08-19 4 tablet by ity o f tablet 00:00: mouth 4 [place] 00 (four) Medical times Branch daily. methocarbam 3-0 Yes [id number] 500mg Take 1 [facility] oL 500 mg 08-19 4 tablet by ity o f tablet 00:00: mouth 4 [place] 00 (four) Medical times Branch daily. methocarbam 3-0 2023- No [id number] 500mg Take 1 [facility] oL 500 mg 08-19 4 tablet by ity of tablet 00:00: 00:00 mouth 4 [place] 00 :00 (four) Medical times Branch daily. methocarbam 3-0 2023- No [id number] 500mg Take 1 [facility] oL 500 mg 08-19 4 tablet by ity of tablet 00:00: 00:00 mouth 4 [place] 00 :00 (four) Medical times Branch daily. amoxicillin 2022-0 3- No [id number] 1{tbl} Take 1 [facility] -clavulanat 08-19 tablet by it y of e 00:00: 05:59 mouth in [place] (AUGMENTIN) 00 :00 the Medical 875-125 mg morning Branch per tablet and 1 tablet in the evening. Do all this for 7 days. amoxicillin 2022-0 3- No [id number] 1{tbl} Take 1 Univers -clavulanat 1-09 01-17 tablet by it y of e 00:00: 05:59 mouth in [place] (AUGMENTIN) 00 :00 the Medical 875-125 mg morning Branch per tablet and 1 tablet in the evening. Do all this for 7 days. amoxicillin 2022- No [id number] 1{tbl} Take 1 [facility] -clavulanat 08-19 tablet by it y of e 00:00: 05:59 mouth in [place] (AUGMENTIN) 00 :00 the Medical 875-125 mg morning Branch per tablet and 1 tablet in the evening. Do all this for 7 days. amoxicillin 2022- No [id number] 1{tbl} Take 1 [facility] -clavulanat 08-19 tablet by it y of e 00:00: 05:59 mouth in [place] (AUGMENTIN) 00 :00 the Medical 875-125 mg morning Branch per tablet and 1 tablet in the evening. Do all this for 7 days. amoxicillin 2022-2022- No [id number] 1{tbl} Take 1 [facility] -clavulanat 08-19 tablet by it y of e 00:00: 05:59 mouth in [place] (AUGMENTIN) 00 :00 the Medical 875-125 mg morning Branch per tablet and 1 tablet in the evening. Do all this for 7 days. amoxicillin 2022- No [id number] 1{tbl} Take 1 [facility] -clavulanat 08-19 tablet by it y of e 00:00: 05:59 mouth in [place] (AUGMENTIN) 00 :00 the Medical 875-125 mg morning Branch per tablet and 1 tablet in the evening. Do all this for 7 days. hydrocortis 2021-08 Yes [id number] Apply to [facility] one 2.5 % 2-27 area(s) 2 ity o f cream 00:00: (two) [place] 00 times Medical daily. Branch hydrocortis 2021-08 Yes [id number] Apply to Univers one 2.5 % 2-27 area(s) 2 ity o f cream 00:00: (two) [place] 00 times Medical daily. Branch hydrocortis 2021-08 Yes [id number] Apply to Univers one 2.5 % 2-27 area(s) 2 ity o f cream 00:00: (two) [place] 00 times Medical daily. Branch hydrocortis 2021-08 Yes [id number] Apply to Univers one 2.5 % 2-27 area(s) 2 ity o f cream 00:00: (two) [place] 00 times Medical daily. Branch hydrocortis 2021-08 Yes [id number] Apply to Univers one 2.5 % 2-27 area(s) 2 ity o f cream 00:00: (two) [place] 00 times Medical daily. Branch hydrocortis 2021-08 Yes [id number] Apply to Univers one 2.5 % 2-27 area(s) 2 ity o f cream 00:00: (two) [place] 00 times Medical daily. Branch hydrocortis 2021-08 Yes [id number] Apply to Univers one 2.5 % 2-27 area(s) 2 ity o f cream 00:00: (two) [place] 00 times Medical daily. Branch hydrocortis 2021-08 Yes [id number] Apply to Univers one 2.5 % 2-27 area(s) 2 ity o f cream 00:00: (two) [place] 00 times Medical daily. Branch hydrocortis 2021-08 Yes [id number] Apply to Univers one 2.5 % 2-27 area(s) 2 ity o f cream 00:00: (two) [place] 00 times Medical daily. Branch hydrocortis 2021-08 Yes [id number] Apply to Univers one 2.5 % 2-27 area(s) 2 ity o f cream 00:00: (two) [place] 00 times Medical daily. Branch hydrocortis 2021-08 Yes [id number] Apply to Univers one 2.5 % 2-27 area(s) 2 ity o f cream 00:00: (two) [place] 00 times Medical daily. Branch hydrocortis 2021- Yes [id number] Apply to Univers one 2.5 % 2-27 area(s) 2 ity o f cream 00:00: (two) [place] 00 times Medical daily. Branch hydrocortis 2021- Yes [id number] Apply to Univers one 2.5 % 2-27 area(s) 2 ity o f cream 00:00: (two) [place] 00 times Medical daily. Branch hydrocortis 2021-08 Yes [id number] Apply to [facility] one 2.5 % 2-27 area(s) 2 ity o f cream 00:00: (two) [place] 00 times Medical daily. Branch hydrocortis 2021-08 Yes [id number] Apply to Univers one 2.5 % 2-27 area(s) 2 ity o f cream 00:00: (two) [place] 00 times Medical daily. Branch hydrocortis 2021-08 Yes [id number] Apply to [facility] one 2.5 % 2-27 area(s) 2 ity o f cream 00:00: (two) [place] 00 times Medical daily. Branch hydrocortis 2021-08 Yes [id number] Apply to Univers one 2.5 % 2-27 area(s) 2 ity o f cream 00:00: (two) [place] 00 times Medical daily. Branch hydrocortis 2021-08 Yes [id number] Apply to Univers one 2.5 % 2-27 area(s) 2 ity o f cream 00:00: (two) [place] 00 times Medical daily. Branch hydrocortis 2021-08 Yes [id number] Apply to [facility] one 2.5 % 2-27 area(s) 2 ity o f cream 00:00: (two) [place] 00 times Medical daily. Branch hydrocortis 2021-08 Yes [id number] Apply to [facility] one 2.5 % 2-27 area(s) 2 ity o f cream 00:00: (two) [place] 00 times Medical daily. Branch hydrocortis 2021-08 Yes [id number] Apply to [facility] one 2.5 % 2-27 area(s) 2 ity o f cream 00:00: (two) [place] 00 times Medical daily. Branch hydrocortis 2021-08 Yes [id number] Apply to [facility] one 2.5 % 2-27 area(s) 2 ity o f cream 00:00: (two) [place] 00 times Medical daily. Branch hydrocortis 2021-08 Yes [id number] Apply to [facility] one 2.5 % 2-27 area(s) 2 ity o f cream 00:00: (two) [place] 00 times Medical daily. Branch hydrocortis 2021-08 Yes [id number] Apply to [facility] one 2.5 % 2-27 area(s) 2 ity o f cream 00:00: (two) [place] 00 times Medical daily. Branch cetirizine 2021-08 Yes [id number] 10mg Take 1 U nivers (ZYRTEC) 10 2-27 tablet by ity of mg tablet 00:00: mouth in [place] 00 the Medical morning. Branch fluticasone 2021-08 Yes [id number] 1{spray Use 1 [facility] propionate 2-27 } [place] in ity o f 50 00:00: each [place] mcg/actuati 00 nostril in Me dical on nasal the Branch spray morning. azelastine 2021-08 Yes [id number] 1{spray Use 1 [facility] 137 mcg 2-27 } [place] in ity of (0.1 %) 00:00: each [place] nasal spray 00 nostril in Me dical the Branch morning and 1 [place] in the evening. Use in each nostril as directed hydrocortis 2021-08 Yes [id number] Apply to [facility] one 2.5 % 2-27 area(s) 2 ity o f cream 00:00: (two) [place] 00 times Medical daily. Branch cetirizine 2021-08 Yes [id number] 10mg Take 1 U nivers (ZYRTEC) 10 2-27 tablet by ity of mg tablet 00:00: mouth in [place] 00 the Medical morning. Branch fluticasone 2021-08 Yes [id number] 1{spray Use 1 [facility] propionate 2-27 } [place] in ity o f 50 00:00: each [place] mcg/actuati 00 nostril in Me dical on nasal the Branch spray morning. azelastine 2021-08 Yes [id number] 1{spray Use 1 [facility] 137 mcg 2-27 } [place] in ity of (0.1 %) 00:00: each [place] nasal spray 00 nostril in Me dical the Branch morning and 1 [place] in the evening. Use in each nostril as directed hydrocortis 2021-08 Yes [id number] Apply to [facility] one 2.5 % 2-27 area(s) 2 ity o f cream 00:00: (two) [place] 00 times Medical daily. Branch cetirizine 2021-08 Yes [id number] 10mg Take 1 U nivers (ZYRTEC) 10 2-27 tablet by ity of mg tablet 00:00: mouth in [place] 00 the Medical morning. Branch fluticasone 2021-08 Yes [id number] 1{spray Use 1 [facility] propionate 2-27 } [place] in ity o f 50 00:00: each [place] mcg/actuati 00 nostril in Me dical on nasal the Branch spray morning. azelastine 2021-08 Yes [id number] 1{spray Use 1 [facility] 137 mcg 2-27 } [place] in ity of (0.1 %) 00:00: each [place] nasal spray 00 nostril in Me dical the Branch morning and 1 [place] in the evening. Use in each nostril as directed hydrocortis 2021-08 Yes [id number] Apply to [facility] one 2.5 % 2-27 area(s) 2 ity o f cream 00:00: (two) [place] 00 times Medical daily. Branch cetirizine 2021-08 Yes [id number] 10mg Take 1 U nivers (ZYRTEC) 10 2-27 tablet by ity of mg tablet 00:00: mouth in [place] 00 the Medical morning. Branch fluticasone 2021-08 Yes [id number] 1{spray Use 1 [facility] propionate 2-27 } [place] in ity o f 50 00:00: each [place] mcg/actuati 00 nostril in Me dical on nasal the Branch spray morning. azelastine 2021-08 Yes [id number] 1{spray Use 1 [facility] 137 mcg 2-27 } [place] in ity of (0.1 %) 00:00: each [place] nasal spray 00 nostril in Me dical the Branch morning and 1 [place] in the evening. Use in each nostril as directed hydrocortis 2021-08 Yes [id number] Apply to [facility] one 2.5 % 2-27 area(s) 2 ity o f cream 00:00: (two) [place] 00 times Medical daily. Branch cetirizine 2021-08 Yes [id number] 10mg Take 1 U nivers (ZYRTEC) 10 2-27 tablet by ity of mg tablet 00:00: mouth in [place] 00 the Medical morning. Branch fluticasone 2021-08 Yes [id number] 1{spray Use 1 [facility] propionate 2-27 } [place] in ity o f 50 00:00: each [place] mcg/actuati 00 nostril in Me dical on nasal the Branch spray morning. azelastine 2021-08 Yes [id number] 1{spray Use 1 [facility] 137 mcg 2-27 } [place] in ity of (0.1 %) 00:00: each [place] nasal spray 00 nostril in Me dical the Branch morning and 1 [place] in the evening. Use in each nostril as directed hydrocortis 2021-08 Yes [id number] Apply to [facility] one 2.5 % 2-27 area(s) 2 ity o f cream 00:00: (two) [place] 00 times Medical daily. Branch cetirizine 2021-08 Yes [id number] 10mg Take 1 [facility] nivers (ZYRTEC) 10 2-27 tablet by ity of mg tablet 00:00: mouth in [place] 00 the Medical morning. Branch fluticasone 2021-08 Yes [id number] 1{spray Use 1 [facility] propionate 2-27 } [place] in ity o f 50 00:00: each [place] mcg/actuati 00 nostril in Me dical on nasal the Branch spray morning. azelastine 2021-08 Yes [id number] 1{spray Use 1 [facility] 137 mcg 2-27 } [place] in ity of (0.1 %) 00:00: each [place] nasal spray 00 nostril in Me dical the Branch morning and 1 [place] in the evening. Use in each nostril as directed hydrocortis 2021-08 Yes [id number] Apply to [facility] one 2.5 % 2-27 area(s) 2 ity o f cream 00:00: (two) [place] 00 times Medical daily. Branch cetirizine 2021-08 Yes [id number] 10mg Take 1 U nivers (ZYRTEC) 10 2-27 tablet by ity of mg tablet 00:00: mouth in [place] 00 the Medical morning. Branch fluticasone 2021-08 Yes [id number] 1{spray Use 1 [facility] propionate 2-27 } [place] in ity o f 50 00:00: each [place] mcg/actuati 00 nostril in Me dical on nasal the Branch spray morning. azelastine 2021-08 Yes [id number] 1{spray Use 1 [facility] 137 mcg 2-27 } [place] in ity of (0.1 %) 00:00: each [place] nasal spray 00 nostril in Me dical the Branch morning and 1 [place] in the evening. Use in each nostril as directed hydrocortis 2021-08 Yes [id number] Apply to [facility] one 2.5 % 2-27 area(s) 2 ity o f cream 00:00: (two) [place] 00 times Medical daily. Branch cetirizine 2021-08 Yes [id number] 10mg Take 1 U nivers (ZYRTEC) 10 2-27 tablet by ity of mg tablet 00:00: mouth in [place] 00 the Medical morning. Branch fluticasone 2021-08 Yes [id number] 1{spray Use 1 [facility] propionate 2-27 } [place] in ity o f 50 00:00: each [place] mcg/actuati 00 nostril in Me dical on nasal the Branch spray morning. azelastine 2021-08 Yes [id number] 1{spray Use 1 [facility] 137 mcg 2-27 } [place] in ity of (0.1 %) 00:00: each [place] nasal spray 00 nostril in Me dical the Branch morning and 1 [place] in the evening. Use in each nostril as directed hydrocortis 2021-08 Yes [id number] Apply to [facility] one 2.5 % 2-27 area(s) 2 ity o f cream 00:00: (two) [place] 00 times Medical daily. Branch cetirizine 2021-08 Yes [id number] 10mg Take 1 [facility] (ZYRTEC) 10 2-27 tablet by [place]y [place] mg tablet 00:00: [place] the [place] morning. Branch fluticasone 2021-08 Yes [id number] 1{spray Use 1 [facility] propionate 2-27 } [place] in ity o f 50 00:00: each [place] mcg/actuati 00 nostril in Me dical on nasal the Branch spray morning. azelastine 2021-08 Yes [id number] 1{spray Use 1 [facility] 137 mcg 2-27 } [place] in ity of (0.1 %) 00:00: each [place] nasal spray 00 nostril in Me dical the Branch morning and 1 [place] in the evening. Use in each nostril as directed hydrocortis 2021-08- No [id number] Apply to [facility] one 2.5 % 2-27 04-14 area(s) 2 ity of cream 00:00: 00:00 (two) [place] 00 :00 times Medical daily. Branch cetirizine 2021-08- No [id number] 10mg Take 1 [facility] (ZYRTEC) 10 2-27 01-19 tablet by it y of mg tablet 00:00: 00:00 mouth in [place] 00 :00 the Medical morning. Branch fluticasone 2021-08- No [id number] 1{spray Use 1 [facility] propionate 10-07 } [place] in ity of 50 00:00: 00:00 each [place] mcg/actuati 00 :00 nostril in Me dical on nasal the Branch spray morning. azelastine 2021-08- No [id number] 1{spray Use 1 [facility] 137 mcg 10-07 } [place] in ity of (0.1 %) 00:00: 00:00 each [place] nasal spray 00 :00 nostril in Me dical the Branch morning and 1 [place] in the evening. Use in each nostril as directed cetirizine 2021-08- No [id number] 10mg Take 1 [facility] (ZYRTEC) 10 10-07 tablet by it y of mg tablet 00:00: 00:00 mouth in [place] 00 :00 the Medical morning. Branch fluticasone 2021-08- No [id number] 1{spray Use 1 [facility] propionate 10-07 } [place] in ity of 50 00:00: 00:00 each [place] mcg/actuati 00 :00 nostril in Me dical on nasal the Branch spray morning. azelastine 2021-08- No [id number] 1{spray Use 1 [facility] 137 mcg 10-07 } [place] in ity of (0.1 %) 00:00: 00:00 each [place] nasal spray 00 :00 nostril in Me dical the Branch morning and 1 [place] in the evening. Use in each nostril as directed amitriptyli 2021-08 Yes Univer s ne 50 mg 2-07 ity of tablet 00:00: Medical Branch amitriptyli 2021-08 Yes Univer s ne 50 mg 2-07 ity of tablet 00:00: [facility] Branch amitriptyli 2021-08 Yes Univer s ne 50 mg 2-07 ity of tablet 00:00: Medical Branch amitriptyli 2021-08 Yes Univer s ne 50 mg 2-07 ity of tablet 00:00: Medical Branch amitriptyli 2021-08 Yes Univer s ne 50 mg 2-07 ity of tablet 00:00: 00 Medical Branch amitriptyli 2021-08 Yes Univer s ne 50 mg 2-07 ity of tablet 00:00: [place] [facility] Branch amitriptyli 2021-08 Yes Univer s ne 50 mg 2-07 ity of tablet 00:00: 00 Medical Branch amitriptyli 2021-08 Yes Univer s ne 50 mg 2-07 ity of tablet 00:00: 00 Medical Branch amitriptyli 2021-08 Yes Univer s ne 50 mg 2-07 ity of tablet 00:00: 00 Medical Branch amitriptyli 2021-08 Yes Univer s ne 50 mg 2-07 ity of tablet 00:00: 00 Medical Branch amitriptyli 2021-08 Yes Univer s ne 50 mg 2-07 ity of tablet 00:00: 00 Medical Branch amitriptyli 2021-08- No Unive rs ne 50 mg 2-07 -28 ity of tablet 00:00: 00:00 [place] 00 :00 Medical Branch amitriptyli 2021-08- No Unive rs ne 50 mg 2-07 -28 ity of tablet 00:00: 00:00 [place] 00 :00 Medical Branch metoclopram 2021-08 Yes as needed. [facility] teresa HCl 10 2-02 ity of mg tablet 00:00: 00 Medical Branch metoclopram 2021-08 Yes as needed. [facility] teresa HCl 10 2-02 ity of mg tablet 00:00: Medical Branch metoclopram 2021-08 Yes as needed. [facility] teresa HCl 10 2-02 ity of mg tablet 00:00: [place] 00 Medical Branch metoclopram 2021-08- No as needed. [facility] teresa HCl 10 2-02 03-03 ity of mg tablet 00:00: 00:00 [place] 00 :00 Medical Branch metoclopram 2021-08- No as needed. [facility] teresa HCl 10 2-02 03-03 ity of mg tablet 00:00: 00:00 [place] 00 :00 Medical Branch amitriptyli 2021-08- No 10mg QD Take [address] [facility] (ELAVIL) 09-0324 tablet (10 L ukes 10 MG 00:00: 23:59 mg total) Medica l tablet 00 :00 by mouth Center nightly for 30 days. cimetidine 2021-08 No 400mg QD Take [address] [facility] (TAGAMET) 08-19 tablet [facility] 400 MG 00:00: 23:59 (400 mg Medical tablet 00 :00 total) by Center mouth nightly for 90 days. cimetidine 2021-08 No 400mg QD Take [address] [facility] (TAGAMET) 08-19 tablet [facility] 400 MG 00:00: 23:59 (400 mg Medical tablet 00 :00 total) by Center mouth nightly for 90 days. meloxicam 2021-08 [facility]mg QD [facility] ([facility]23 tablet (15 Marilyn kes MG tablet 00:00: 23:59 mg total) Me dical 00 :00 by mouth Center daily for 14 days. meloxicam 2021-08 No 15mg QD Take [facility] ([facility] 08-[facility]23 tablet (15 Marilyn kes MG tablet 00:00: 23:59 mg total) Me dical 00 :00 by mouth Center daily for 14 days. clonazePAM 2021-08 Yes 1mg Take [address] [facility] [address] [facility] (KlonoPIN) 08-11 by mouth 3 [place] es 1 MG tablet 13:14: (three) Med ical 23 times Center daily as needed for Anxiety . divalproex 2021-08 Yes mixed 500mg Q.5D Take [address] (DEPAKOTE) 08-11 bipolar I mg by [place] es 500 MG EC 13:14: disorder mouth 2 M edical tablet 23 (two) Center times daily . cetirizine 2021-08 Yes 10mg QD Take [address] (ZyrTEC) 10 08-11 by mouth Luke s MG tablet 13:14: daily. Medica l 23 Center clonazePAM 2021-08 Yes 1mg Take [address] [facility] [address] [facility] (KlonoPIN) 01 by mouth 3 Ernesto es 1 MG tablet 13:14: (three) Med ical 23 times Center daily as needed for Anxiety . divalproex 2021-08 Yes mixed 500mg Q.5D Take [address] (DEPAKOTE) 1- bipolar I mg by Ernesto es 500 MG EC 13:14: disorder mouth 2 M edical tablet 23 (two) Center times daily . cetirizine 2021-08 Yes 10mg QD Take [address] (ZyrTEC) 10 08-11 by mouth Luke s MG tablet 13:14: daily. Medica l 23 Center ondansetron 2021-08- No 4mg Take [address] [facility] (ZOFRAN-ODT 0-31 -31 by mouth Ernesto es ) 4 MG 10:34: 00:00 every 8 Medical disintegrat 17 :00 (eight) Cente r ing tablet hours as needed for Nausea. ondansetron 2021-08- No 4mg Take [address] [facility] (ZOFRAN-ODT 0-31 31 by mouth Ernesto es ) 4 MG 10:34: 00:00 every 8 Medical disintegrat 17 :00 (eight) Cente r ing tablet hours as needed for Nausea. levoFLOXaci 2021-08- No Lower 500mg QD Take [address] [facility] 0-31 11-07 urinary tablet [facility] (Levaquin) 00:00: 23:59 tract (500 mg Me dical 500 MG 00 :00 symptoms total) by Cent er tablet (LUTS) mouth daily for 7 days. levoFLOXaci 2021-08- No Lower 500mg QD Take [address] n 0-31 11-07 urinary tablet [facility] (Levaquin) 00:00: 23:59 tract (500 mg Me dical 500 MG 00 :00 symptoms total) by Cent er tablet (LUTS) mouth daily for 7 days. ofloxacin 2021-08 Yes [id number] 5[drp] Place 5 Univers 0.3 % otic 0-29 Drops in ity o f drops 00:00: right ear [place] 00 in the Medical morning Branch and 5 Drops in the evening. ofloxacin 2021-08 Yes [id number] 5[drp] Place 5 [facility] 0.3 % otic 0-29 Drops in ity o f drops 00:00: right ear [place] 00 in the Medical morning Branch and 5 Drops in the evening. ofloxacin 2021-08 Yes [id number] 5[drp] Place 5 [facility] 0.3 % otic 0-29 Drops in ity o f drops 00:00: right ear [place] 00 in the Medical morning Branch and 5 Drops in the evening. ofloxacin 2021-08 Yes [id number] 5[drp] Place 5 [facility] 0.3 % otic 0-29 Drops in ity o f drops 00:00: right ear [place] 00 in the Medical morning Branch and 5 Drops in the evening. ofloxacin 2021-08 Yes [id number] 5[drp] Place 5 [facility] 0.3 % otic 0-29 Drops in ity o f drops 00:00: right ear [place] 00 in the Medical morning Branch and 5 Drops in the evening. ofloxacin 2021-08 Yes [id number] 5[drp] Place 5 [facility] 0.3 % otic 0-29 Drops in ity o f drops 00:00: right ear [place] 00 in the Medical morning Branch and 5 Drops in the evening. ofloxacin 2021-08 Yes [id number] 5[drp] Place 5 [facility] 0.3 % otic 0-29 Drops in ity o f drops 00:00: right ear [place] 00 in the Medical morning Branch and 5 Drops in the evening. ofloxacin 2021-08 Yes [id number] 5[drp] Place 5 [facility] 0.3 % otic 0-29 Drops in ity o f drops 00:00: right ear [place] 00 in the Medical morning Branch and 5 Drops in the evening. ofloxacin 2021-08 Yes [id number] 5[drp] Place 5 [facility] 0.3 % otic 0-29 Drops in ity o f drops 00:00: right ear [place] 00 in the Medical morning Branch and 5 Drops in the evening. ofloxacin 2021-08 Yes [id number] 5[drp] Place 5 [facility] 0.3 % otic 0-29 Drops in ity o f drops 00:00: right ear [place] 00 in the Medical morning Branch and 5 Drops in the evening. ofloxacin 2021-08 Yes [id number] 5[drp] Place 5 [facility] 0.3 % otic 0-29 Drops in ity o f drops 00:00: right ear [place] 00 in the Medical morning Branch and 5 Drops in the evening. ofloxacin 2021-08 Yes [id number] 5[drp] Place 5 [facility] 0.3 % otic 0-29 Drops in ity o f drops 00:00: right ear [place] 00 in the Medical morning Branch and 5 Drops in the evening. ofloxacin 2021-08 Yes [id number] 5[drp] Place 5 [facility] 0.3 % otic 0-29 Drops in ity o f drops 00:00: right ear [place] 00 in the Medical morning Branch and 5 Drops in the evening. ofloxacin 2021-08 Yes [id number] 5[drp] Place 5 [facility] 0.3 % otic 0-29 Drops in ity o f drops 00:00: right ear [place] 00 in the Medical morning Branch and 5 Drops in the evening. ofloxacin 2021-08 Yes [id number] 5[drp] Place 5 [facility] 0.3 % otic 0-29 Drops in ity o f drops 00:00: right ear [place] 00 in the Medical morning Branch and 5 Drops in the evening. ofloxacin 2021-08 Yes [id number] 5[drp] Place 5 [facility] 0.3 % otic 0-29 Drops in ity o f drops 00:00: right ear [place] 00 in the Medical morning Branch and 5 Drops in the evening. ofloxacin 2021-08 Yes [id number] 5[drp] Place 5 [facility] 0.3 % otic 0-29 Drops in ity o f drops 00:00: right ear [place] 00 in the Medical morning Branch and 5 Drops in the evening. ofloxacin 2021-08- No [id number] 5[drp] Place 5 [facility] 0.3 % otic 0-29 02-21 Drops in ity of drops 00:00: 00:00 right ear [place] 00 :00 in the Medical morning Branch and 5 Drops in the evening. ofloxacin 2021-08- No [id number] 5[drp] Place 5 [facility] 0.3 % otic 0-29 02-21 Drops in ity of drops 00:00: 00:00 right ear [place] 00 :00 in the Medical morning Branch and 5 Drops in the evening. cefdinir 2021-08- No [id number] 300mg Take 6 mL [facility] 250 mg/5 mL 0-29 06-19 by mouth ity of suspension 00:00: 05:59 in the [facility] 00 :00 morning Medical and 6 mL Branch in the evening. Do all this for 10 days. cefdinir 2021-08- No [id number] 300mg Take 6 mL [facility] 250 mg/5 mL 0-29 11-09 by mouth ity of suspension 00:00: 05:59 in the [facility] 00 :00 morning Medical and 6 mL Branch in the evening. Do all this for 10 days. cefdinir 2021-08- No [id number] 300mg Take 6 mL [facility] 250 mg/5 mL 0-29 11-09 by mouth ity of suspension 00:00: 05:59 in the [facility] 00 :00 morning Medical and 6 mL Branch in the evening. Do all this for 10 days. bromphenira 2021-08 Yes [id number] 5mL Take 5 mL [facility] mine-pseudo 0-24 by mouth 4 it y of ephedrine-D 00:00: (four[place] (BROMFED 00 times Medical DM) 2-30-10 daily as Bran ch mg/5 mL needed for syrup Congestion /Allergies . azelastine 2021-08 Yes [id number] 1{spray Use 1 [facility] 137 mcg 0-24 } [place] in ity of (0.1 %) 00:00: each [place] nasal spray 00 nostril in [facility] the [place] morning and 1 [place] in the evening. Use in each nostril as directed methocarbam 2021-08 Yes [id number] 500mg Take 1 [facility] oL 500 mg 0-24 4 tablet by ity o f tablet 00:00: mouth 4 [place] [id number] ([facility]) Medical times Branch daily. bromphenira 2021-08 Yes [id number] 5mL Take 5 mL [facility] mine-pseudo 0-24 by mouth 4 it y of ephedrine-D 00:00: (four) [place] M (BROMFED 00 times Medical DM) 2-30-10 daily as Bran ch mg/5 mL needed for syrup Congestion /Allergies . azelastine 2021-08 Yes [id number] 1{spray Use 1 [facility] 137 mcg 0-24 } [place] in ity of (0.1 %) 00:00: each [place] nasal spray 00 nostril in Sd dical the [place] morning and 1 [place] in the evening. Use in each nostril as directed methocarbam 2021-08 Yes [id number] 500mg Take 1 [facility] oL 500 mg 0-24 4 tablet by ity o f tablet 00:00: mouth 4 [place] [id number] ([facility]) Medical times [place] daily. bromphenira 2021-08 Yes [id number] 5mL Take 5 mL [facility] mine-pseudo 0-24 by mouth 4 it y of ephedrine-D 00:00: (four) [place] M (BROMFED 00 times Medical DM) 2-30-10 daily as Bran ch mg/5 mL needed for syrup Congestion /Allergies . azelastine 2021-08 Yes [id number] 1{spray Use 1 [facility] 137 mcg 0-24 } [place] in ity of (0.1 %) 00:00: each [place] nasal spray 00 nostril in [facility] the Branch morning and 1 [place] in the evening. Use in each nostril as directed methocarbam 2021-08 Yes [id number] 500mg Take 1 [facility] oL 500 mg 0-24 4 tablet by ity o f tablet 00:00: mouth 4 [place] [address] ([facility] times [place] daily. bromphenira 2021-08 Yes [id number] 5mL Take 5 mL [facility] mine-pseudo 0-24 by mouth 4 it y of ephedrine-D 00:00: (four) [place] (BROMFED times Medical DM) 2-30-10 daily as Bran ch mg/5 mL needed for syrup Congestion /Allergies . methocarbam 2021-08 Yes [id number] 500mg Take 1 [facility] oL 500 mg 0-24 4 tablet by ity o f tablet 00:00: mouth 4 [place] [id number] ([facility]) [facility] times [place] daily. bromphenira 2021-08 Yes [id number] 5mL Take 5 mL [facility] mine-pseudo 0-24 by mouth 4 it y of ephedrine-D 00:00: (four) [place] M (BROMFED 00 times Medical DM) 2-30-10 daily as Bran ch mg/5 mL needed for syrup Congestion /Allergies . methocarbam 2021-08 Yes [id number] 500mg Take 1 [facility] oL 500 mg 0-24 4 tablet by ity o f tablet 00:00: mouth 4 [place] [address] ([facility]) Medical times [place] daily. bromphenira 2021-08 Yes [id number] 5mL Take 5 mL [facility] mine-pseudo 0-24 by mouth 4 it y of ephedrine-D 00:00: (four) [place] M (BROMFED 00 times Medical DM) 2-30-10 daily as Bran ch mg/5 mL needed for syrup Congestion /Allergies . methocarbam 2021-08 Yes [id number] 500mg Take 1 [facility] oL 500 mg 0-24 4 tablet by ity o f tablet 00:00: mouth 4 [place] (four) Medical times Branch daily. bromphenira 2021-08 Yes [id number] 5mL Take 5 mL [facility] mine-pseudo 0-24 by mouth 4 it y of ephedrine-D 00:00: (four) [place] M (BROMFED 00 times Medical DM) 2-30-10 daily as Bran ch mg/5 mL needed for syrup Congestion /Allergies . bromphenira 2021-08 Yes [id number] 5mL Take 5 mL [facility] mine-pseudo 0-24 by mouth 4 it y of ephedrine-D 00:00: (four) [place] M (BROMFED times Medical DM) 2-30-10 daily as Bran ch mg/5 mL needed for syrup Congestion /Allergies . bromphenira 2021-08 Yes [id number] 5mL Take 5 mL [facility] mine-pseudo 0-24 by mouth 4 it y of ephedrine-D 00:00: (four) [place] (BROMFED times Medical DM) 2-30-10 daily as Bran ch mg/5 mL needed for syrup Congestion /Allergies . bromphenira 2021-08 Yes [id number] 5mL Take 5 mL [facility] mine-pseudo 0-24 by mouth 4 it y of ephedrine-D 00:00: (four) [place] M (BROMFED 00 times Medical DM) 2-30-10 daily as Bran ch mg/5 mL needed for syrup Congestion /Allergies . bromphenira 2021-08 Yes [id number] 5mL Take 5 mL [facility] mine-pseudo 0-24 by mouth 4 it y of ephedrine-D 00:00: (four) [place] M (BROMFED 00 times Medical DM) 2-30-10 daily as Bran ch mg/5 mL needed for syrup Congestion /Allergies . bromphenira 2021-08 Yes [id number] 5mL Take 5 mL [facility] mine-pseudo 0-24 by mouth 4 it y of ephedrine-D 00:00: (four) [place] M (BROMFED 00 times Medical DM) 2-30-10 daily as Bran ch mg/5 mL needed for syrup Congestion /Allergies . bromphenira 2021-08- No [id number] 5mL Take 5 mL [facility] mine-pseudo 0-24 08-29 by mouth 4 i ty of ephedrine-D 00:00: 00:00 (four) [place] M (BROMFED 00 :00 times Medical DM) 2-30-10 daily as Bran ch mg/5 mL needed for syrup Congestion /Allergies . bromphenira 2021-08- No [id number] 5mL Take 5 mL [facility] mine-pseudo 0-24 08-29 by mouth 4 i ty of ephedrine-D 00:00: 00:00 (four) [place] M (BROMFED 00 :00 times Medical DM) 2-30-10 daily as Bran ch mg/5 mL needed for syrup Congestion /Allergies . methocarbam 2021-08- No [id number] 500mg Take 1 [facility] oL 500 mg 08-19 4 tablet by ity of tablet 00:00: 00:00 mouth 4 [place] 00 :00 (four) Medical times [place] daily. azelastine 2021-08- No [id number] 1{spray Use 1 [facility] 137 mcg 08-06 } [place] in ity of (0.1 %) 00:00: 00:00 each [place] nasal spray 00 :00 nostril in [facility] the [place] morning and 1 [place] in the evening. Use in each nostril as directed HYDROcodone 2021-08- No 1{tbl} Take [address] -acetaminop 0-23 11-02 tablet by Marilyn post (OROS) 00:00: 23:59 mouth Medi darren 5-325 mg 00 :00 every 6 Center per tablet (six) hours as needed for Pain for up to 10 days. Max Daily Amount: 4 tablets HYDROcodone 2021-08- No 1{tbl} Take [address] -acetaminop 0-23 11-02 tablet by Marilyn post (OROS) 00:00: 23:59 mouth Medi darren 5-325 mg [...] times capsule daily for 7 days. tamsulosin 2021-08- No .4mg QD Take [address] [facility] (FLOMAX) 0-23 10-30 capsule [facility] 0.4 mg Cap 00:00: 23:59 (0.4 mg Med ical 24 hr 00 :00 total) by Center capsule mouth daily for 7 days. nitrofurant 2021-08 No 100mg Q.5D Take [address] oin, 0-23 10-30 capsule [facility] macrocrysta 00:00: 23:59 (100 mg Me dical l-monohydra 00 :00 total) by [address] [facility], mouth 2 (MACROBID) (two) 100 MG times capsule daily for 7 days. tamsulosin 2021-08- No .4mg QD Take [address] [facility] [facility] [...] No 30mg 30 mg, Unive rs (TORADOL) 0-19 10-19 Slow IV ity of injection 12:30: 12:41 Push, [place] 30 mg 00 :00 ONCE, 1 Medical dose, On Branch Fri05/29/22 at 0730, MEGHA NaCl 0.9% 2021-08- No 1000mL at 999 Uni vers (NS) bolus 0-19 10-19 mL/hr, ity of infusion 12:30: 14:10 1,000 mL, [place] as 1,000 mL 00 :00 IV Medical Infusion, Branch ONCE, 1 dose, On Fri05/29/22 at 0730, STAT metoclopram 2021-08- No 10mg 10 mg, Uni vers teresa HCl 0-19 10-19 Slow IV ity of (REGLAN) 11:30: 11:46 Push, [place] injection 00 :00 ONCE, 1 Medical 10 mg dose, On Branch Fri05/29/22 at 0630, MEGHA ketorolac 2021-08 Yes [id number] 10mg Take 1 Un manoj 10 mg 0-19 tablet by ity of tablet 00:00: mouth [place] 00 every 6 Medical (six) Branch hours as needed for Pain (scale 4-6), Pain (scale 1-3) or Alternate with [place] for pain scale 4-6. proMETHazin 2021-08 Yes [id number] 25mg Take 1 Univers e 25 mg 0-19 tablet by ity of tablet 00:00: mouth [place] 00 every 6 Medical (six) Branch hours as needed for Nausea and Vomiting (N/V). ketorolac 2021-08 Yes [id number] 10mg Take 1 Un manoj 10 mg 0-19 tablet by ity of tablet 00:00: mouth [place] 00 every 6 Medical (six) Branch hours as needed for Pain (scale 4-6), Pain (scale 1-3) or Alternate with [place] for pain scale 4-6. proMETHazin 2021-08 Yes [id number] 25mg Take 1 Univers e 25 mg 0-19 tablet by ity of tablet 00:00: mouth [place] 00 every 6 Medical (six) Branch hours as needed for Nausea and Vomiting (N/V). ketorolac 2021-08 Yes [id number] 10mg Take 1 Un manoj 10 mg 0-19 tablet by ity of tablet 00:00: mouth [place] 00 every 6 Medical (six) Branch hours as needed for Pain (scale 4-6), Pain (scale 1-3) or Alternate with [place] for pain scale 4-6. proMETHazin 2021-08 Yes [id number] 25mg Take 1 Univers e 25 mg 0-19 tablet by ity of tablet 00:00: mouth [place] 00 every 6 Medical (six) Branch hours as needed for Nausea and Vomiting (N/V). ketorolac 2021-08 Yes [id number] 10mg Take 1 Un manoj 10 mg 0-19 tablet by ity of tablet 00:00: mouth [place] 00 every 6 Medical (six) Branch hours as needed for Pain (scale 4-6), Pain (scale 1-3) or Alternate with [place] for pain scale 4-6. proMETHazin 2021-08 Yes [id number] 25mg Take 1 Univers e 25 mg 0-19 tablet by ity of tablet 00:00: mouth [place] 00 every 6 Medical (six) Branch hours as needed for Nausea and Vomiting (N/V). ketorolac 2021-08 Yes [id number] 10mg Take 1 Un manoj 10 mg 0-19 tablet by ity of tablet 00:00: mouth [place] 00 every 6 Medical (six) Branch hours as needed for Pain (scale 4-6), Pain (scale 1-3) or Alternate with [place] for pain scale 4-6. proMETHazin 2021-08 Yes [id number] 25mg Take 1 Univers e 25 mg 0-19 tablet by ity of tablet 00:00: mouth [place] 00 every 6 Medical (six) Branch hours as needed for Nausea and Vomiting (N/V). ketorolac 2021-08 Yes [id number] 10mg Take 1 Un manoj 10 mg 0-19 tablet by ity of tablet 00:00: mouth [place] 00 every 6 Medical (six) Branch hours as needed for Pain (scale 4-6), Pain (scale 1-3) or Alternate with [place] for pain scale 4-6. proMETHazin 2021-08 Yes [id number] 25mg Take 1 Univers e 25 mg 0-19 tablet by ity of tablet 00:00: mouth [place] 00 every 6 Medical (six) Branch hours as needed for Nausea and Vomiting (N/V). ketorolac 2021-08 Yes [id number] 10mg Take 1 Un manoj 10 mg 0-19 tablet by ity of tablet 00:00: mouth [place] 00 every 6 Medical (six) Branch hours as needed for Pain (scale 4-6), Pain (scale 1-3) or Alternate with [place] for pain scale 4-6. proMETHazin 2021-08 Yes [id number] 25mg Take 1 Univers e 25 mg 0-19 tablet by ity of tablet 00:00: mouth [place] 00 every 6 Medical (six) Branch hours as needed for Nausea and Vomiting (N/V). ketorolac 2021-08 Yes [id number] 10mg Take 1 Un manoj 10 mg 0-19 tablet by ity of tablet 00:00: mouth [place] 00 every 6 Medical (six) Branch hours as needed for Pain (scale 4-6), Pain (scale 1-3) or Alternate with [place] for pain scale 4-6. proMETHazin 2021-08 Yes [id number] 25mg Take 1 Univers e 25 mg 0-19 tablet by ity of tablet 00:00: mouth [place] 00 every 6 Medical (six) Branch hours as needed for Nausea and Vomiting (N/V). ketorolac 2021-08 Yes [id number] 10mg Take 1 Un manoj 10 mg 0-19 tablet by ity of tablet 00:00: mouth [place] 00 every 6 Medical (six) Branch hours as needed for Pain (scale 4-6), Pain (scale 1-3) or Alternate with [place] for pain scale 4-6. proMETHazin 2021-08 Yes [id number] 25mg Take 1 Univers e 25 mg 0-19 tablet by ity of tablet 00:00: mouth [place] 00 every 6 Medical (six) Branch hours as needed for Nausea and Vomiting (N/V). ketorolac 2021-08 Yes [id number] 10mg Take 1 Un manoj 10 mg 0-19 tablet by ity of tablet 00:00: mouth [place] 00 every 6 Medical (six) Branch hours as needed for Pain (scale 4-6), Pain (scale 1-3) or Alternate with [place] for pain scale 4-6. proMETHazin 2021-08 Yes [id number] 25mg Take 1 Univers e 25 mg 0-19 tablet by ity of tablet 00:00: mouth [place] 00 every 6 Medical (six) Branch hours as needed for Nausea and Vomiting (N/V). ketorolac 2021-08 Yes [id number] 10mg Take 1 Un manoj 10 mg 0-19 tablet by ity of tablet 00:00: mouth [place] 00 every 6 Medical (six) Branch hours as needed for Pain (scale 4-6), Pain (scale 1-3) or Alternate with [place] for pain scale 4-6. proMETHazin 2021-08 Yes [id number] 25mg Take 1 Univers e 25 mg 0-19 tablet by ity of tablet 00:00: mouth [place] 00 every 6 Medical (six) Branch hours as needed for Nausea and Vomiting (N/V). ketorolac 2021-08 Yes [id number] 10mg Take 1 Un manoj 10 mg 0-19 tablet by ity of tablet 00:00: mouth [place] 00 every 6 Medical (six) Branch hours as needed for Pain (scale 4-6), Pain (scale 1-3) or Alternate with [place] for pain scale 4-6. proMETHazin 2021-08 Yes [id number] 25mg Take 1 [facility] e 25 mg 0-19 tablet by ity of tablet 00:00: mouth [place] 00 every 6 Medical (six) Branch hours as needed for Nausea and Vomiting (N/V). ketorolac 2021-08 Yes [id number] 10mg Take 1 Un manoj 10 mg 0-19 tablet by ity of tablet 00:00: mouth [place] 00 every 6 Medical (six) Branch hours as needed for Pain (scale 4-6), Pain (scale 1-3) or Alternate with [place] for pain scale 4-6. proMETHazin 2021-08 Yes [id number] 25mg Take 1 Univers e 25 mg 0-19 tablet by ity of tablet 00:00: mouth [place] 00 every 6 Medical (six) Branch hours as needed for Nausea and Vomiting (N/V). ketorolac 2021-08- No [id number] 10mg Take 1 U nivers 10 mg 0-19 01-19 tablet by ity of tablet 00:00: 00:00 mouth [place] 00 :00 every 6 Medical (six) Branch hours as needed for Pain (scale 4-6), Pain (scale 1-3) or Alternate with [place] for pain scale 4-6. proMETHazin 2021-08- No [id number] 25mg Take 1 Univers e 25 mg 0-19 - tablet by ity of tablet 00:00: 00:00 mouth [place] 00 :00 every 6 Medical (six) Branch hours as needed for Nausea and Vomiting (N/V). ketorolac 2021-08- No [id number] 10mg Take 1 [facility] n[facility] 10 mg 0-19 -19 tablet by ity of tablet 00:00: 00:00 mouth [place] 00 :00 every 6 Medical (six) Branch hours as needed for Pain (scale 4-6), Pain (scale 1-3) or Alternate with [place] for pain scale 4-6. proMETHazin 2021-08- No [id number] 25mg Take 1 [facility] 25 mg 0-29 08- tablet by ity of tablet 00:00: 00:00 mouth [place] 00 :00 every 6 Medical (six) Branch hours as needed for Nausea and Vomiting (N/V). HYDROcodone 2021-08- No [id number] 1{tbl} Take 1 U nivers -acetaminop 006-06 tablet by it y of hen 5-325 00:00: 04:59 mouth [place] mg tablet 00 :00 every 6 Medical (six) Branch hours as needed for Pain (scale 7-10) for up to 7 days. Indication s: acute pain proMETHazin 2021-08 No 25mg 25 mg, IV [facility] e 0-07 20-12 Piggyback, ity of (PHENERGAN) 14:30: 14:49 ONCE, 1 [place] 25 mg in 00 :00 dose, On Medical NaCl 0.9% Wed Branch (NS) 50 mL 05/22/22 IV at 0930, piggyback MEGHA NaCl 0.9% 2021-08- No 1000mL at 999 Uni vers (NS) IV 0-12 10-12 mL/hr, ity of infusion 14:15: 15:53 Intravenou [place] 1,000 mL 00 :00 s, ONCE, 1 Medic al dose, On Branch 05/22/22 at 0915, [facility] pantoprazol 2021-08 No 40mg 40 mg, Uni vers e 0-12 10-12 Slow IV ity of (PROTONIX) 13:15: 13:26 Push, [place] injection 00 :00 ONCE, 1 Medical 40 mg dose, On Branch 05/22/22 at 0815 morpHINE (4 2021-08- 4mg 4 mg, Slow [facility] mg/mL) 0-12 -12 IV Push, ity of injection 4 13:15: 13:26 ONCE, 1 [place] mg 00 :00 dose, On Medical Wed Branch 05/22/22 at 0815, Routine dicyclomine 2021-08 Yes [id number] 20mg Take 1 [facility] 20 mg 0-12 tablet by ity of tablet 00:00: mouth (four) Medical times Branch daily as needed for Abdominal pain. dicyclomine 2021-08 Yes [id number] 20mg Take 1 [facility] 20 mg 0-12 tablet by ity of tablet 00:00: mouth [place] () Medical times Branch daily as needed for Abdominal pain. dicyclomine 2021-08 Yes [id number] 20mg Take 1 [facility] 20 mg 0-12 tablet by ity of tablet 00:00: mouth [place] ([facility]) Medical times Branch daily as needed for Abdominal pain. dicyclomine 2021-08 Yes [id number] 20mg Take 1 [facility] 20 mg 0-12 tablet by ity of tablet 00:00: mouth [place] () Medical times Branch daily as needed for Abdominal pain. dicyclomine 2021-08 Yes [id number] 20mg Take 1 [facility] 20 mg 0-12 tablet by ity of tablet 00:00: mouth [place] () Medical times Branch daily as needed for Abdominal pain. dicyclomine 2021-08 Yes [id number] 20mg Take 1 [facility] 20 mg 0-12 tablet by ity of tablet 00:00: mouth [place] () Medical times Branch daily as needed for Abdominal pain. dicyclomine 2021-08 Yes [id number] 20mg Take 1 [facility] 20 mg 0-12 tablet by ity of tablet 00:00: mouth [place] () Medical times Branch daily as needed for Abdominal pain. dicyclomine 2021-08 Yes [id number] 20mg Take 1 [facility] 20 mg 0-12 tablet by ity of tablet 00:00: mouth [place] (four) Medical times Branch daily as needed for Abdominal pain. dicyclomine 2021-08 Yes [id number] 20mg Take 1 [facility] 20 mg 0-12 tablet by ity of tablet 00:00: mouth [place] (four) Medical times Branch daily as needed for Abdominal pain. dicyclomine 2021-08 Yes [id number] 20mg Take 1 [facility] 20 mg 0-12 tablet by ity of tablet 00:00: mouth (four) Medical times Branch daily as needed for Abdominal pain. dicyclomine 2021-08 Yes [id number] 20mg Take 1 [facility] 20 mg 0-12 tablet by ity of tablet 00:00: mouth [place] (four) Medical times Branch daily as needed for Abdominal pain. dicyclomine 2021-08 Yes [id number] 20mg Take 1 [facility] 20 mg 0-12 tablet by ity of tablet 00:00: mouth [place] (four) Medical times Branch daily as needed for Abdominal pain. dicyclomine 2021-08 Yes [id number] 20mg Take 1 [facility] 20 mg 0-12 tablet by ity of tablet 00:00: mouth [place] (four) Medical times Branch daily as needed for Abdominal pain. dicyclomine 2021-08 Yes [id number] 20mg Take 1 [facility] 20 mg 0-12 tablet by ity of tablet 00:00: mouth [place] (four) Medical times Branch daily as needed for Abdominal pain. dicyclomine 2021-08 No [id number] 20mg Take 1 [facility] 20 mg 0-12 -19 tablet by ity of tablet 00:00: 00:[address] 00 : (four) Medical times Branch daily as needed for Abdominal pain. dicyclomine 2021-08 No [id number] 20mg Take 1 [facility] 20 mg 0-12 -19 tablet by ity of tablet 00:00: 00:00 mouth 4 [place] 00 :00 (four) Medical times Branch daily as needed for Abdominal pain. HYDROcodone 2021- No 1{tbl} Take [address] -acetaminop 9- 10-06 tablet by Marilyn post (OROS) 00:00: 23:59 mouth [facility] [place] 5-325 mg 00 :00 every 6 Center per tablet (six) hours as needed for Pain for up to 10 days. Max Daily Amount: 4 tablets HYDROcodone 2021- No 1{tbl} Take [address] -acetaminop 9-26 10-06 tablet by Marilyn post ([place]) 00:00: 23:59 mouth [facility]i [place] 5-325 mg 00 :00 every 6 Center per tablet (six) hours as needed for Pain for up to 10 days. Max Daily Amount: 4 tablets DIVALPROEX 0 Yes [id number] TAKE ONE [facility] 500 mg EC 9-23 TABLET BY ity o f tablet 00:00: MOUTH [place] 00 EVERY 12 Medical HOURS Branch DIVALPROEX 0 Yes [id number] TAKE ONE [facility] 500 mg EC 9-23 TABLET BY ity o f tablet 00:00: MOUTH [place] 00 EVERY 12 Medical HOURS Branch DIVALPROEX 0 Yes [id number] TAKE ONE [facility] 500 mg EC 9-23 TABLET BY ity o f tablet 00:00: MOUTH [place] 00 EVERY 12 Medical HOURS Branch DIVALPROEX 2021-0 Yes [id number] TAKE ONE [facility] 500 mg EC 9-23 TABLET BY ity o f tablet 00:00: MOUTH [place] 00 EVERY 12 Medical HOURS Branch DIVALPROEX 2021-0 Yes [id number] TAKE ONE [facility] 500 mg EC 9-23 TABLET BY ity o f tablet 00:00: MOUTH [place] 00 EVERY 12 Medical HOURS Branch DIVALPROEX 2021-0 Yes [id number] TAKE ONE [facility] 500 mg EC 9-23 TABLET BY ity o f tablet 00:00: MOUTH [place] 00 EVERY 12 Medical HOURS Branch DIVALPROEX 2021-0 Yes [id number] TAKE ONE [facility] 500 mg EC 9-23 TABLET BY ity o f tablet 00:00: MOUTH [place] 00 EVERY 12 Medical HOURS Branch DIVALPROEX 2021-0 Yes [id number] TAKE ONE [facility] 500 mg EC 9-23 TABLET BY ity o f tablet 00:00: MOUTH [place] 00 EVERY 12 Medical HOURS Branch DIVALPROEX 2021-0 Yes [id number] TAKE ONE [facility] 500 mg EC 9-23 TABLET BY ity o f tablet 00:00: MOUTH [place] 00 EVERY 12 Medical HOURS Branch DIVALPROEX 2021-0 Yes [id number] TAKE ONE [facility] 500 mg EC 9-23 TABLET BY ity o f tablet 00:00: MOUTH [place] 00 EVERY 12 Medical HOURS Branch DIVALPROEX 2021-0 Yes [id number] TAKE ONE [facility] 500 mg EC 9-23 TABLET BY ity o f tablet 00:00: MOUTH [place] 00 EVERY 12 Medical HOURS Branch DIVALPROEX 2021-0 Yes [id number] TAKE ONE [facility] 500 mg EC 9-23 TABLET BY ity o f tablet 00:00: MOUTH [place] 00 EVERY 12 Medical HOURS Branch DIVALPROEX 2021-0 Yes [id number] TAKE ONE [facility] 500 mg EC 9-23 TABLET BY ity o f tablet 00:00: MOUTH [place] 00 EVERY 12 Medical HOURS Branch DIVALPROEX 2021-0 Yes [id number] TAKE ONE [facility] 500 mg EC 9-23 TABLET BY ity o f tablet 00:00: MOUTH [place] 00 EVERY 12 Medical HOURS Branch DIVALPROEX 2021-0 Yes [id number] TAKE ONE [facility] 500 mg EC 9-23 TABLET BY ity o f tablet 00:00: MOUTH [place] 00 EVERY 12 Medical HOURS Branch DIVALPROEX 2021-0 Yes [id number] TAKE ONE [facility] 500 mg EC 9-23 TABLET BY ity o f tablet 00:00: MOUTH [place] 00 EVERY 12 Medical HOURS Branch DIVALPROEX 2021-0 Yes [id number] TAKE ONE [facility] 500 mg EC 9-23 TABLET BY ity o f tablet 00:00: MOUTH [place] 00 EVERY 12 Medical HOURS Branch DIVALPROEX 2021-0 Yes [id number] TAKE ONE [facility] 500 mg EC 9-23 TABLET BY ity o f tablet 00:00: MOUTH [place] 00 EVERY 12 Medical HOURS Branch DIVALPROEX 2021-0 Yes [id number] TAKE ONE [facility] 500 mg EC 9-23 TABLET BY ity o f tablet 00:00: MOUTH [place] 00 EVERY 12 Medical HOURS Branch DIVALPROEX 2021-0 Yes [id number] TAKE ONE [facility] 500 mg EC 9-23 TABLET BY ity o f tablet 00:00: MOUTH [place] 00 EVERY 12 Medical HOURS Branch DIVALPROEX 2021-0 2023- No [id number] TAKE ONE [facility] 500 mg EC 9-23 02-21 TABLET BY ity of tablet 00:00: 00:00 MOUTH [place] 00 :00 EVERY 12 Medical HOURS Branch DIVALPROEX 2-0 2023- No [id number] TAKE ONE [facility] 500 mg EC 9-23 02-21 TABLET BY ity of tablet 00:00: 00:00 MOUTH [place] 00 :00 EVERY 12 Medical HOURS Branch oxybutynin 202-0 2021- No 5mg Q.[id number] Take [address] [facility] (DITROPAN) 04-30- [id number] by mouth 3 [facility] 5 [facility] tablet 15:51: 00:00 3D (three) Me dical 04 :00 times Center daily. cephalexin 2021-2021- No 500mg Q.5D Take [address] (KEFLEX) 04-30 09-14 mg by [facility] 500 MG 15:51: 00:00 mouth 2 Medical capsule 04 :00 (two) Center times daily. ketorolac 2021-2021- No 10mg Take [address] [facility] (TORADOL) 04-30 by mouth [facility] 10 mg 15:51: 00:00 every 6 Medical tablet 04 :00 (six) Center hours as needed for Pain. oxybutynin 2021-2021- No 5mg Q.40215328 Take [address] [facility] (DITROPAN) 04-30 [id number] by mouth 3 [facility] 5 MG tablet 15:51: 00:00 3D (three) Me dical 04 :00 times Center daily. cephalexin 2021-2021- No 500mg Q.5D Take [address] (KEFLEX) 04-30 09-14 mg by [facility] 500 MG 15:51: 00:00 mouth 2 Medical capsule 04 :00 (two) Center times daily. ketorolac 2021-2021- No 10mg Take [address] (TORADOL) 04-30 by mouth [facility] 10 mg 15:51: 00:00 every 6 Medical tablet 04 :00 (six) Center hours as needed for Pain. mirabegron 2021- 202- No 50mg QD Take [address] [facility] (MYRBETRIQ) 9-20 10-20 tablet (50 [facility] 50 mg Tb24 00:00: 23:59 mg total) M edical ER tablet 00 :00 by mouth Center daily for 30 days. mirabegron 2021-0 2021- No 50mg QD Take [address] [facility] (MYRBETRIQ) 9-20 10-20 tablet (50 L [facility] 50 mg Tb24 00:00: 23:59 mg total) M edical ER tablet 00 :00 by mouth Center daily for 30 days. gabapentin 2021-2- No 100mg Q.[id number] Take [address] [facility] (NEURONTIN) 04-29- [id number] capsule [facility] 100 MG 00:00: 23:59 3D (100 mg Medical capsule 00 :00 total) by Center mouth 3 (three) times daily for 30 days. gabapentin 2021-2021- No 100mg Q.[id number] Take [address] [facility] (NEURONTIN) 04-29 [id number] capsule [facility] 100 MG 00:00: 23:59 3D [...] Amount: 4 tablets oxybutynin 2021-0 Yes 5mg Q.[id number] Take [address] [facility] (DITROPAN) - [id number] tablet (5 [facility] 5 MG tablet 00:00: 3D mg total) M edical 00 by mouth 3 Center (three) times daily. oxybutynin 2021-0 Yes 5mg Q.[id number] Take [address] [facility] (DITROPAN) - [id number] tablet (5 [facility] 5 MG tablet 00:00: 3D mg total) M edical 00 by mouth 3 Center (three) times daily. tamsulosin 2021-2021- No .4mg QD Take [address] [facility] (FLOMAX) 04-24 10- capsule [facility] 0.4 mg Cap 00:00: 23:59 [...] times capsule daily for 10 days. nitrofurant 2021-2021- No 100mg Q.5D [...] [facility] -acetaminop 04-24 tablet by Marilyn kes hen (NORCO 00:00: 00:00 mouth Medic al 5-325) 00 :00 every 6 Center 5-325 mg (six) per tablet hours as needed for Pain for up to 10 days. Max Daily Amount: 4 tablets phenazopyri 2021- No 100mg Take 1 [facility] [...] [address] [facility] azole-trime 04-19 rimetho tablet Marilyn kes thoprim 00:00: 00:00 prim} (160 mg of Me dical (Bactrim 00 :00 trimethopr Cente r DS) 800-160 im total) mg per by mouth 2 tablet (two) times daily for 7 days. sulfamethox 2021- No 160mg{t Q.5D Take [address] [facility] azole-trime 04-19 rimetho tablet Marilyn kes thoprim 00:00: 00:00 prim} (160 mg of Me dical (Bactrim 00 :00 trimethopr Cente r DS) 800-160 im total) mg per by mouth 2 tablet (two) times daily for 7 days. HYDROcodone 2021- No 1{tbl} 1 tablet, Univers -acetaminop 04-16 Oral, ity of hen (NORCO) 19:00: 18:23 ONCE, 1 [place] 10-325 mg 00 :00 dose, On Medica l tablet 1 Fri04/16/22 Branc h tablet at 1400, Routine ketorolac 2021- No 15mg 15 mg, Unive rs (TORADOL) 04-16 Slow IV ity of injection 19:00: 18:13 Push, [place] 15 mg 00 :00 ONCE, 1 Medical dose, On Branch 04/16/22 at 1400, [facility] proMETHazin 2021- No 25mg 25 mg, Uni vers e 04-16 Intramuscu ity of (PHENERGAN) 18:15: 18:23 lar, ONCE, [place] injection 00 :00 1 dose, On Medi [place] 25 mg 04/16/22 Branch at 1315, MEGHA cefTRIAXone 2021- No 1000mg 1,000 mg, Univers (ROCEPHIN) 04-16 IV ity of 1,000 mg in 18:00: 18:30 Piggyback, [place] NaCl 0.9% 00 :00 ONCE, 1 Medical (NS) 50 mL dose, On Branc h MINI-BAG 04/16/22 at 1300, Administer over 30 Minutes, 50 mL
R katherin for Anti-Infec tive: Documented Infection< br>Documen abdias Infection Site: Urine<br&g t;Duration of Therapy: Other (see Comments) iopamidol 2021- No [id number] 65mL 65 mL, U nivers (ISOVUE 04-16 Intravenou ity o f 370-500 mL) 17:15: 17:15 s, ONCE, 1 [place] injection 00 :00 dose, On Medica l 65 mL e 04/16/22 Branch at 1215, Routine morpHINE (4 2021- No 4mg 4 mg, Slow Univers mg/mL) 04-16 IV Push, ity of injection 4 16:45: 16:00 ONCE, 1 [place] mg 00 :00 dose, On Medical 04/16/22 Branch at 1145, STAT ondansetron 2021- No 4mg 4 mg, Slow Univers (ZOFRAN 04-16 IV Push, ity of (PF)) 16:45: 16:00 ONCE, 1 [place] injection 4 00 :00 dose, On Medi darren mg 04/16/22 Branch at 1145, MEGHA NaCl 0.9% 2021- No 1000mL at 999 Uni vers (NS) bolus 9-06 09-06 mL/hr, ity of infusion 16:45: 18:30 1,000 mL, [place] as 1,000 mL 00 :00 IV Medical Infusion, Branch ONCE, 1 dose, On Fri04/16/22 at 1145, MEGHA ondansetron 2-0 Yes [id number] 4mg Take 1 [facility] 4 mg 9-06 tablet by ity of disintegrat 00:00: mouth [place] ing tablet 00 every 8 Medica l (eight) Branch hours as needed for Nausea and Vomiting (N/V). proMETHazin 2022-0 Yes [id number] 25mg Take 1 Univers e 25 mg 9-06 tablet by ity of tablet 00:00: mouth [place] 00 every 6 Medical (six) Branch hours as needed for N/V unresponsi ve to Ondansetro n. ketorolac 2022-0 Yes [id number] 10mg Take 1 Un manoj 10 mg 9-06 tablet by ity of tablet 00:00: mouth [place] 00 every 6 Medical (six) Branch hours as needed for Pain (scale 1-3) or Pain (scale 4-6). cephALEXin 2022-0 Yes [id number] 500mg Take 1 [facility] (KEFLEX) 9-06 capsule by ity o f 500 mg 00:00: mouth in [place] capsule 00 the Medical morning Branch and 1 capsule in the evening. ondansetron 2-0 Yes [id number] 4mg Take 1 [facility] 4 mg 9-06 tablet by ity of disintegrat 00:00: mouth [place] ing tablet 00 every 8 Medica l (eight) Branch hours as needed for Nausea and Vomiting (N/V). proMETHazin 2022-0 Yes [id number] 25mg Take 1 Univers e 25 mg 9-06 tablet by ity of tablet 00:00: mouth [place] 00 every 6 Medical (six) Branch hours as needed for N/V unresponsi ve to Ondansetro n. ketorolac 2022-0 Yes [id number] 10mg Take 1 Un manoj 10 mg 9-06 tablet by ity of tablet 00:00: mouth [place] 00 every 6 Medical (six) Branch hours as needed for Pain (scale 1-3) or Pain (scale 4-6). cephALEXin 2022-0 Yes [id number] 500mg Take 1 [facility] (KEFLEX) 9-06 capsule by ity o f 500 mg 00:00: mouth in [place] capsule 00 the Medical morning Branch and 1 capsule in the evening. ondansetron 2021-0 Yes [id number] 4mg Take 1 [facility] 4 mg 9-06 tablet by ity of disintegrat 00:00: mouth [place] ing tablet 00 every 8 Medica l (eight) Branch hours as needed for Nausea and Vomiting (N/V). proMETHazin 2021-0 Yes [id number] 25mg Take 1 Univers e 25 mg 9-06 tablet by ity of tablet 00:00: mouth [place] 00 every 6 Medical (six) Branch hours as needed for N/V unresponsi ve to Ondansetro n. ketorolac 2021-0 Yes [id number] 10mg Take 1 Un manoj 10 mg 9-06 tablet by ity of tablet 00:00: mouth [place] 00 every 6 Medical (six) Branch hours as needed for Pain (scale 1-3) or Pain (scale 4-6). cephALEXin 2021-0 Yes [id number] 500mg Take 1 [facility] (KEFLEX) 9-06 capsule by ity o f 500 mg 00:00: mouth in [place] capsule 00 the Medical morning Branch and 1 capsule in the evening. ondansetron 2021-0 Yes [id number] 4mg Take 1 [facility] 4 mg 9-06 tablet by ity of disintegrat 00:00: mouth [place] ing tablet 00 every 8 Medica l (eight) Branch hours as needed for Nausea and Vomiting (N/V). proMETHazin 2-0 Yes [id number] 25mg Take 1 Univers e 25 mg 9-06 tablet by ity of tablet 00:00: mouth [place] 00 every 6 Medical (six) Branch hours as needed for N/V unresponsi ve to Ondansetro n. ketorolac 2022-0 Yes [id number] 10mg Take 1 Un manoj 10 mg 9-06 tablet by ity of tablet 00:00: mouth [place] 00 every 6 Medical (six) Branch hours as needed for Pain (scale 1-3) or Pain (scale 4-6). cephALEXin 2022-0 Yes [id number] 500mg Take 1 [facility] (KEFLEX) 9-06 capsule by ity o f 500 mg 00:00: mouth in [place] capsule 00 the Medical morning Branch and 1 capsule in the evening. ondansetron 2-0 Yes [id number] 4mg Take 1 [facility] 4 mg 9-06 tablet by ity of disintegrat 00:00: mouth [place] ing tablet 00 every 8 Medica l (eight) Branch hours as needed for Nausea and Vomiting (N/V). proMETHazin 2022-0 Yes [id number] 25mg Take 1 Univers e 25 mg 9-06 tablet by ity of tablet 00:00: mouth [place] 00 every 6 Medical (six) Branch hours as needed for N/V unresponsi ve to Ondansetro n. ketorolac 2-0 Yes [id number] 10mg Take 1 Un manoj 10 mg 9-06 tablet by ity of tablet 00:00: mouth [place] 00 every 6 Medical (six) Branch hours as needed for Pain (scale 1-3) or Pain (scale 4-6). cephALEXin 2-0 Yes [id number] 500mg Take 1 [facility] (KEFLEX) 9-06 capsule by ity o f 500 mg 00:00: mouth in [place] capsule 00 the Medical morning Branch and 1 capsule in the evening. ondansetron 2-0 Yes [id number] 4mg Take 1 [facility] 4 mg 9-06 tablet by ity of disintegrat 00:00: mouth [place] ing tablet 00 every 8 Medica l (eight) Branch hours as needed for Nausea and Vomiting (N/V). proMETHazin 2-0 Yes [id number] 25mg Take 1 Univers e 25 mg 9-06 tablet by ity of tablet 00:00: mouth [place] 00 every 6 Medical (six) Branch hours as needed for N/V unresponsi ve to Ondansetro n. ketorolac 2-0 Yes [id number] 10mg Take 1 Un manoj 10 mg 9-06 tablet by ity of tablet 00:00: mouth [place] 00 every 6 Medical (six) Branch hours as needed for Pain (scale 1-3) or Pain (scale 4-6). cephALEXin 2022-0 Yes [id number] 500mg Take 1 [facility] (KEFLEX) 9-06 capsule by ity o f 500 mg 00:00: mouth in [place] capsule 00 the Medical morning Branch and 1 capsule in the evening. ondansetron 2022-0 Yes [id number] 4mg Take 1 [facility] 4 mg 9-06 tablet by ity of disintegrat 00:00: mouth [place] ing tablet 00 every 8 Medica l (eight) Branch hours as needed for Nausea and Vomiting (N/V). proMETHazin 2021-0 Yes [id number] 25mg Take 1 Univers e 25 mg 9-06 tablet by ity of tablet 00:00: mouth [place] 00 every 6 Medical (six) Branch hours as needed for N/V unresponsi ve to Ondansetro n. ketorolac 2021-0 Yes [id number] 10mg Take 1 Un manoj 10 mg 9-06 tablet by ity of tablet 00:00: mouth [place] 00 every 6 Medical (six) Branch hours as needed for Pain (scale 1-3) or Pain (scale 4-6). ondansetron 2021-0 Yes [id number] 4mg Take 1 [facility] 4 mg 9-06 tablet by ity of disintegrat 00:00: mouth [place] ing tablet 00 every 8 Medica l (eight) Branch hours as needed for Nausea and Vomiting (N/V). proMETHazin 2021-0 Yes [id number] 25mg Take 1 Univers e 25 mg 9-06 tablet by ity of tablet 00:00: mouth [place] 00 every 6 Medical (six) Branch hours as needed for N/V unresponsi ve to Ondansetro n. ketorolac 2021-0 Yes [id number] 10mg Take 1 Un manoj 10 mg 9-06 tablet by ity of tablet 00:00: mouth [place] 00 every 6 Medical (six) Branch hours as needed for Pain (scale 1-3) or Pain (scale 4-6). ondansetron 2021-0 Yes [id number] 4mg Take 1 [facility] 4 mg 9-06 tablet by ity of disintegrat 00:00: mouth [place] ing tablet 00 every 8 Medica l (eight) Branch hours as needed for Nausea and Vomiting (N/V). proMETHazin 2021-0 Yes [id number] 25mg Take 1 Univers e 25 mg 9-06 tablet by ity of tablet 00:00: mouth [place] 00 every 6 Medical (six) Branch hours as needed for N/V unresponsi ve to Ondansetro n. ketorolac 2021-0 Yes [id number] 10mg Take 1 Un manoj 10 mg 9-06 tablet by ity of tablet 00:00: mouth [place] 00 every 6 Medical (six) Branch hours as needed for Pain (scale 1-3) or Pain (scale 4-6). ondansetron 2021-0 Yes [id number] 4mg Take 1 [facility] 4 mg 9-06 tablet by ity of disintegrat 00:00: mouth [place] ing tablet 00 every 8 Medica l (eight) Branch hours as needed for Nausea and Vomiting (N/V). proMETHazin 2021-0 Yes [id number] 25mg Take 1 Univers e 25 mg 9-06 tablet by ity of tablet 00:00: mouth [place] 00 every 6 Medical (six) Branch hours as needed for N/V unresponsi ve to Ondansetro n. ketorolac 2021-0 Yes [id number] 10mg Take 1 Un manoj 10 mg 9-06 tablet by ity of tablet 00:00: mouth [place] 00 every 6 Medical (six) Branch hours as needed for Pain (scale 1-3) or Pain (scale 4-6). ondansetron 2021-0 Yes [id number] 4mg Take 1 [facility] 4 mg 9-06 tablet by ity of disintegrat 00:00: mouth [place] ing tablet 00 every 8 Medica l (eight) Branch hours as needed for Nausea and Vomiting (N/V). proMETHazin 2021-0 Yes [id number] 25mg Take 1 Univers e 25 mg 9-06 tablet by ity of tablet 00:00: mouth [place] 00 every 6 Medical (six) Branch hours as needed for N/V unresponsi ve to Ondansetro n. ketorolac 2021-0 Yes [id number] 10mg Take 1 Un manoj 10 mg 9-06 tablet by ity of tablet 00:00: mouth [place] 00 every 6 Medical (six) Branch hours as needed for Pain (scale 1-3) or Pain (scale 4-6). ondansetron 2021-0 Yes [id number] 4mg Take 1 [facility] 4 mg 9-06 tablet by ity of disintegrat 00:00: mouth [place] ing tablet 00 every 8 Medica l (eight) Branch hours as needed for Nausea and Vomiting (N/V). proMETHazin 2021-0 Yes [id number] 25mg Take 1 Univers e 25 mg 9-06 tablet by ity of tablet 00:00: mouth [place] 00 every 6 Medical (six) Branch hours as needed for N/V unresponsi ve to Ondansetro n. ketorolac 0 Yes [id number] 10mg Take 1 Un manoj 10 mg 9-06 tablet by ity of tablet 00:00: mouth [place] 00 every 6 Medical (six) Branch hours as needed for Pain (scale 1-3) or Pain (scale 4-6). ondansetron 0 Yes [id number] 4mg Take 1 [facility] 4 mg 9-06 tablet by ity of disintegrat 00:00: mouth [place] ing tablet 00 every 8 Medica l (eight) Branch hours as needed for Nausea and Vomiting (N/V). proMETHazin 0 Yes [id number] 25mg Take 1 [facility] e 25 mg 9-06 tablet by ity of tablet 00:00: mouth [place] 00 every 6 Medical (six) Branch hours as needed for N/V unresponsi ve to Ondansetro n. ketorolac 0 Yes [id number] 10mg Take 1 Un manoj 10 mg 9-06 tablet by ity of tablet 00:00: mouth [place] 00 every 6 Medical (six) Branch hours as needed for Pain (scale 1-3) or Pain (scale 4-6). ondansetron 0 Yes [id number] 4mg Take 1 [facility] 4 mg 9-06 tablet by ity of disintegrat 00:00: mouth [place] ing tablet 00 every 8 Medica l (eight) Branch hours as needed for Nausea and Vomiting (N/V). proMETHazin 0 Yes [id number] 25mg Take 1 Univers e 25 mg 9-06 tablet by ity of tablet 00:00: mouth [place] 00 every 6 Medical (six) Branch hours as needed for N/V unresponsi ve to Ondansetro n. ketorolac 2021-0 Yes [id number] 10mg Take 1 Un manoj 10 mg 9-06 tablet by ity of tablet 00:00: mouth [place] 00 every 6 Medical (six) Branch hours as needed for Pain (scale 1-3) or Pain (scale 4-6). ondansetron 0 Yes [id number] 4mg Take 1 [facility] 4 mg 9-06 tablet by ity of disintegrat 00:00: mouth [place] ing tablet 00 every 8 Medica l (eight) Branch hours as needed for Nausea and Vomiting (N/V). proMETHazin 2021-0 Yes [id number] 25mg Take 1 Univers e 25 mg 9-06 tablet by ity of tablet 00:00: mouth [place] 00 every 6 Medical (six) Branch hours as needed for N/V unresponsi ve to Ondansetro n. ketorolac 2021-0 Yes [id number] 10mg Take 1 Un manoj 10 mg 9-06 tablet by ity of tablet 00:00: mouth [place] 00 every 6 Medical (six) Branch hours as needed for Pain (scale 1-3) or Pain (scale 4-6). ondansetron 0 Yes [id number] 4mg Take 1 [facility] 4 mg 9-06 tablet by ity of disintegrat 00:00: mouth [place] ing tablet 00 every 8 Medica l (eight) Branch hours as needed for Nausea and Vomiting (N/V). proMETHazin 0 Yes [id number] 25mg Take 1 [facility] e 25 mg 9-06 tablet by ity of tablet 00:00: mouth [place] 00 every 6 Medical (six) Branch hours as needed for N/V unresponsi ve to Ondansetro n. ketorolac 0 Yes [id number] 10mg Take 1 Un manoj 10 mg 9-06 tablet by ity of tablet 00:00: mouth [place] 00 every 6 Medical (six) Branch hours as needed for Pain (scale 1-3) or Pain (scale 4-6). ondansetron 0 Yes [id number] 4mg Take 1 [facility] 4 mg 9-06 tablet by ity of disintegrat 00:00: mouth [place] ing tablet 00 every 8 Medica l (eight) Branch hours as needed for Nausea and Vomiting (N/V). proMETHazin 2021-0 Yes [id number] 25mg Take 1 Univers e 25 mg 9-06 tablet by ity of tablet 00:00: mouth [place] 00 every 6 Medical (six) Branch hours as needed for N/V unresponsi ve to Ondansetro n. ketorolac 2021-0 Yes [id number] 10mg Take 1 Un manoj 10 mg 9-06 tablet by ity of tablet 00:00: mouth [place] 00 every 6 Medical (six) Branch hours as needed for Pain (scale 1-3) or Pain (scale 4-6). ondansetron 0 Yes [id number] 4mg Take 1 [facility] 4 mg 9-06 tablet by ity of disintegrat 00:00: mouth [place] ing tablet 00 every 8 Medica l (eight) Branch hours as needed for Nausea and Vomiting (N/V). proMETHazin 0 Yes [id number] 25mg Take 1 [facility] e 25 mg 9-06 tablet by ity of tablet 00:00: mouth [place] 00 every 6 Medical (six) Branch hours as needed for N/V unresponsi ve to Ondansetro n. ketorolac Yes [id number] 10mg Take 1 Un manoj 10 mg 9-06 tablet by ity of tablet 00:00: mouth [place] 00 every 6 Medical (six) Branch hours as needed for Pain (scale 1-3) or Pain (scale 4-6). ondansetron 0 2022- No [id number] 4mg Take 1 [facility] 4 mg -01 09-19 tablet by [facility]y of disintegrat 00:00: [place] tablet 00 :00 every 8 Medica l (eight) Branch hours as needed for Nausea and Vomiting (N/V). proMETHazin 0 2022- No [id number] 25mg Take 1 [facility] 25 mg -01 09-19 tablet by ity of tablet 00:00: 00:00 mouth [place] 00 :00 every 6 Medical (six) Branch hours as needed for N/V unresponsi ve to Ondansetro n. ketorolac 0 2022- No [id number] 10mg Take 1 [facility] 10 mg -01 09-19 tablet by ity of tablet 00:00: 00:00 mouth [place] 00 :00 every 6 Medical (six) Branch hours as needed for Pain (scale 1-3) or Pain (scale 4-6). ondansetron 2021-0 2022- No [id number] 4mg Take 1 [facility] 4 mg 9-01 09-19 tablet by [facility] of disintegrat 00:00: 00:[place] mouth [place] tablet 00 :00 every 8 Medica l (eight) Branch hours as needed for Nausea and Vomiting (N/V). proMETHazin 2022- No [id number] 25mg Take 1 [facility] 25 mg 04-16 tablet by ity of tablet 00:00: 00:00 mouth [place] 00 :00 every 6 Medical (six) Branch hours as needed for N/V unresponsi ve to Ondansetro n. ketorolac 2022- No [id number] 10mg Take 1 [facility] 10 mg 04-16 tablet by ity of tablet 00:00: 00:00 mouth [place] 00 :00 every 6 Medical (six) Branch hours as needed for Pain (scale 1-3) or Pain (scale 4-6). cephALEXin 2021- No [id number] 500mg Take 1 [facility] (KEFLEX) 04-16 capsule by ity of 500 mg 00:00: 00:00 mouth in [place] capsule 00 :00 the Medical morning Branch and 1 capsule in the evening. HYDROcodone 2021- No [id number] 1{tbl} Take 1-2 [facility] -acetaminop 04-16 tablets by i ty of hen 5-325 00:00: 04:59 mouth [place] mg tablet 00 :00 every 6 Medical (six) Branch hours as needed for Pain (scale 4-6) for up to 7 days. Indication s: acute pain HYDROcodone 2021- No [id number] 1{tbl} Take 1-2 [facility] -acetaminop 04-1614 tablets by i ty of hen 5-325 00:00: 04:59 mouth [place] mg tablet 00 :00 every 6 Medical (six) Branch hours as needed for Pain (scale 4-6) for up to 7 days. Indication s: acute pain tamsulosin 2021-0 2022- No .4mg QD Take [address] [facility] (FLOMAX) 04-06 capsule [facility] mg Cap 00:00: 00:00 (0.4 mg Med ical 24 hr 00 :00 total) by Center capsule mouth daily for 30 days. tamsulosin 2021-0 2021- No .4mg QD Take [address] [facility] (FLOMAX) 04-06 capsule [facility] 0.4 mg Cap 00:00: 00:00 (0.4 mg Med ical 24 hr 00 :00 total) by Center capsule mouth daily for 30 days. traMADoL 2021-2021- No 50mg Take [address] [facility] (ULTRAM) 50 04-06- tablet (50 [facility] mg tablet 00:00: 23:59 mg total) Me dical 00 :00 by mouth Center every 6 (six) hours as needed for up to 10 days. Max Daily Amount: 200 mg oxybutynin 2021-0 2021- No 5mg Take [address] [facility] (DITROPAN) 04-06 tablet (5 Ernesto es 5 MG tablet 00:00: 23:59 mg total) Medical 00 :00 by mouth 3 Center (three) times daily as needed (bladder spasm) for up to 10 days. traMADoL 2021-2021- No 50mg Take [address] [facility] (ULTRAM) 50 04-06 tablet (50 [facility] mg tablet 00:00: 23:59 mg total) Me dical 00 :00 by mouth Center every 6 (six) hours as needed for up to 10 days. Max Daily Amount: 200 mg oxybutynin 2021-0 2021- No 5mg Take [address] [facility] (DITROPAN) 04-06 tablet (5 Ernesto es 5 MG tablet 00:00: 23:59 mg total) Medical 00 :00 by mouth 3 Center (three) times daily as needed (bladder spasm) for up to 10 days. nitrofurant 2021-0 2021- No 100mg Q.5D [...] for 7 days. nystatin 2021-0 2021- No [id number] Q.25D Take [address] [facility] (MYCOSTATIN 8-27 09- (500,000 Ernesto es ) 100,000 00:00: 23:59 Units Medica l unit/mL 00 :00 total) by Center suspension mouth 4 (four) times daily for 5 days. nystatin 2021- No [id number] Q.25D Take [address] [facility] (MYCOSTATIN 804-11 (500,000 Ernesto es ) 100,000 00:00: 23:59 Units Medica l unit/mL 00 :00 total) by Center suspension mouth 4 (four) times daily for 5 days. phenazopyri 2021-0 2021- No 100mg Take [address] [facility] [address] [facility]ine 8- 08-30 tablet [facility] (Pyridium) 00:00: 23:59 (100 [...] by ity of tablet 14:54: 00:00 mouth [place] 13 :00 every 12 Medical (twelve) Branch hours. vilazodone 2021-0 2021- No Take by [facility] vers 40 mg 8-26 08-26 mouth ity of tablet 14:54: 00:00 daily. [place] 13 :00 Medical Branch vilazodone 2021-0 Yes [id number] 40mg Take 1 [facility] 40 mg 8-26 tablet by ity of tablet 00:00: mouth in [place] 00 the Medical morning. Branch vilazodone 2021-0 Yes [id number] 40mg Take 1 [facility] 40 mg 8-26 tablet by ity of tablet 00:00: mouth in [place] 00 the Medical morning. Branch vilazodone 2021-0 Yes [id number] 40mg Take 1 [facility] 40 mg 8-26 tablet by ity of tablet 00:00: mouth in [place] 00 the Medical morning. Branch vilazodone 2022-0 Yes [id number] 40mg Take 1 [facility] 40 mg 8-26 tablet by ity of tablet 00:00: mouth in [place] 00 the Medical morning. Branch vilazodone 2-0 Yes [id number] 40mg Take 1 [facility] 40 mg 8-26 tablet by ity of tablet 00:00: mouth in [place] 00 the Medical morning. Branch divalproex 2022-0 Yes [id number] 500mg Take 1 [facility] 500 mg EC 8-26 tablet by ity o f tablet 00:00: mouth [place] 00 every 12 Medical (twelve) Branch hours. vilazodone 2022-0 Yes [id number] 40mg Take 1 [facility] 40 mg 8-26 tablet by ity of tablet 00:00: mouth in [place] 00 the Medical morning. Branch divalproex 2-0 Yes [id number] 500mg Take 1 [facility] 500 mg EC 8-26 tablet by ity o f tablet 00:00: mouth [place] 00 every 12 Medical (twelve) Branch hours. vilazodone 2-0 Yes [id number] 40mg Take 1 [facility] 40 mg 8-26 tablet by ity of tablet 00:00: mouth in [place] 00 the Medical morning. Branch divalproex 2-0 Yes [id number] 500mg Take 1 [facility] 500 mg EC 8-26 tablet by ity o f tablet 00:00: mouth [place] 00 every 12 Medical (twelve) Branch hours. vilazodone 2-0 Yes [id number] 40mg Take 1 [facility] 40 mg 8-26 tablet by ity of tablet 00:00: mouth in [place] 00 the Medical morning. Branch divalproex 2-0 Yes [id number] 500mg Take 1 [facility] 500 mg EC 8-26 tablet by ity o f tablet 00:00: mouth [place] 00 every 12 Medical (twelve) Branch hours. vilazodone 2022-0 Yes [id number] 40mg Take 1 [facility] 40 mg 8-26 tablet by ity of tablet 00:00: mouth in [place] 00 the Medical morning. Branch vilazodone 2022-0 Yes [id number] 40mg Take 1 [facility] 40 mg 8-26 tablet by ity of tablet 00:00: mouth in [place] 00 the Medical morning. Branch vilazodone 2022-0 Yes [id number] 40mg Take 1 [facility] 40 mg 8-26 tablet by ity of tablet 00:00: mouth in [place] the Medical morning. Branch vilazodone 2-0 Yes [id number] 40mg Take 1 [facility] 40 mg 8-26 tablet by ity of tablet 00:00: mouth in [place] the Medical morning. Branch vilazodone 2-0 Yes [id number] 40mg Take 1 [facility] 40 mg 8-26 tablet by ity of tablet 00:00: mouth in [place] the Medical morning. Branch vilazodone 2021-0 Yes [id number] 40mg Take 1 [facility] n[facility] 40 mg 8-26 tablet by ity of tablet 00:00: mouth in [place] the Medical morning. Branch vilazodone 2021-0 Yes [id number] 40mg Take 1 [facility] 40 mg 8-26 tablet by ity of tablet 00:00: mouth in [place] the Medical morning. Branch vilazodone 2021-0 Yes [id number] 40mg Take 1 [facility] 40 mg 8-26 tablet by ity of tablet 00:00: mouth in [place] the Medical morning. Branch vilazodone 2021-0 Yes [id number] 40mg Take 1 [facility] 40 mg 8-26 tablet by ity of tablet 00:00: mouth in [place] the Medical morning. Branch vilazodone 2021-0 Yes [id number] 40mg Take 1 [facility] 40 mg 8-26 tablet by ity of tablet 00:00: mouth in [place] the Medical morning. Branch vilazodone 2021-0 Yes [id number] 40mg Take 1 [facility] 40 mg 8-26 tablet by ity of tablet 00:00: mouth in [place] the Medical morning. Branch vilazodone 2021-0 Yes [id number] 40mg Take 1 [facility] 40 mg 8-26 tablet by ity of tablet 00:00: mouth in [place] the Medical morning. Branch vilazodone 2-0 Yes [id number] 40mg Take 1 [facility] 40 mg 8-26 tablet by ity of tablet 00:00: mouth in [place] the Medical morning. Branch vilazodone 2-0 Yes [id number] 40mg Take 1 [facility] 40 mg 8-26 tablet by ity of tablet 00:00: mouth in [place] 00 the Medical morning. Branch vilazodone 2021-0 Yes [id number] 40mg Take 1 [facility] 40 mg 8-26 tablet by ity of tablet 00:00: mouth in [place] 00 the Medical morning. Branch vilazodone 2021-0 Yes [id number] 40mg Take 1 [facility] 40 mg 8-26 tablet by ity of tablet 00:00: mouth in [place] 00 the Medical morning. Branch vilazodone 2021-0 2023- No [id number] 40mg Take 1 [facility] 40 mg 8-26 02-21 tablet by ity of tablet 00:00: 00:00 mouth in [place] 00 :00 the Medical morning. Branch vilazodone 2021-0 2023- No [id number] 40mg Take 1 [facility] 40 mg 8-26 02-21 tablet by ity of tablet 00:00: 00:00 mouth in [place] 00 :00 the Medical morning. Branch divalproex 2021-0 2- No [id number] 500mg Take 1 [facility] 500 mg EC 8-06 05-23 tablet by ity of tablet 00:00: 00:00 mouth [place] 00 :00 every 12 Medical (twelve) Branch hours. lipase-prot Yes 1{capsu Take 1 U nivers ease-amylas 8-25 le} capsule by it y of e 10:21: mouth as [place] 36,000-114, 12 needed. Medic al 000- Take 2 Branch 180,000 capsules unit CpDR by mouth with meals and 1 with each snack. lipase-prot Yes 1{capsu Take 1 [facility] nivers ease-amylas 8-25 le} capsule by it y of e 10:21: mouth as [place] 36,000-114, 12 needed. Medic al 000- Take 2 Branch 180,000 capsules unit CpDR by mouth with meals and 1 with each snack. lipase-prot Yes 1{capsu Take 1 U nivers ease-amylas 8-25 le} capsule by it y of e 10:21: mouth as [place] 36,000-114, 12 needed. Medic al 000- Take 2 Branch 180,000 capsules unit CpDR by mouth with meals and 1 with each snack. lipase-prot Yes 1{capsu Take 1 U nivers ease-amylas [...] mouth 3 it y of 10:20: (three) [place] 05 times Medical daily as Branch needed. clonazePAM Yes 1mg Take 1 mg Un manoj 1 mg tablet 8-25 by mouth 3 it y of 10:20: (three) [place] 05 times Medical daily as Branch needed. amoxicillin 2021-2021- No 1{tbl} Q.5D Take [address] -clavulanat 03-31 tablet by Marilyn lal e 00:00: 23:59 mouth 2 Medical (AUGMENTIN) 00 :00 (two) Center 875-125 mg times per tablet daily for 7 days. amoxicillin 2021-0 2021- No 1{tbl} Q.5D Take [address] -clavulanat 03-31 tablet by Marilyn lal e 00:00: 23:59 mouth 2 Medical (AUGMENTIN) 00 :00 (two) Center 875-125 mg times per tablet daily for 7 days. phenazopyri 2021-2021- No 100mg Take [address] [facility] [address] [facility] 03-31 tablet [facility] (Pyridium) 00:00: 00:00 (100 mg Med ical 100 MG 00 :00 total) by Center tablet mouth 3 (three) times daily as needed for up to 3 days. oxybutynin 2021-2021- No 5mg Take [address] [facility] (DITROPAN) 03-31 tablet (5 Ernesto es 5 MG tablet 00:00: 00:00 mg total) Medical 00 :00 by mouth 3 Center (three) times daily as needed (bladder spasm) for up to 10 days. traMADoL 2021-2021- No 50mg Take [address] [facility] (ULTRAM) 50 03-31 tablet (50 [facility] mg tablet 00:00: 00:00 mg total) Me dical 00 :00 by mouth Center every 6 (six) hours as needed for up to 10 days. Max Daily Amount: 200 mg phenazopyri 2021-0 2021- No 100mg Take 1 [...] up to 5 days. cefdinir 2021- No [id number] 600mg Take 2 U nivers 300 mg 03-29 capsules ity of capsule 00:00: 04:59 by mouth [place] 00 :00 in the Medical morning Branch for 7 days. tamsulosin 2021- No .4mg QD Take [address] [facility] (FLOMAX) 03-21 capsule [facility] 0.4 mg Cap 00:00: 00:00 (0.4 mg Med ical 24 hr 00 :00 total) by Center capsule mouth daily for 30 days. tamsulosin 2021-2021- No .4mg QD Take [address] [facility] (FLOMAX) 03-21 capsule [facility] 0.4 mg Cap 00:00: 00:00 (0.4 mg Med ical 24 hr 00 :00 total) by Center capsule mouth daily for 30 days. HYDROcodone 2021- No 1{tbl} Take [address] -acetaminop 8-11 08-21 tablet by Marilyn post (NORCO 00:00: 23:59 mouth Medic al 5-325) 00 :00 every 6 Center 5-325 mg (six) per tablet hours as needed for Pain for up to 10 days. Max Daily Amount: 4 tablets HYDROcodone 2021- No 1{tbl} Take [address] -acetaminop 8-11 08-21 tablet by Marilyn post (NORCO 00:00: 23:59 mouth Medic al 5-325) 00 :00 every 6 Center 5-325 mg (six) per tablet hours as needed for Pain for up to 10 days. Max Daily Amount: 4 tablets ketorolac 2021-2021- No 10mg [facility] 8-06 18-16 tablet (10 Ernesto es 10 mg 00:00: 23:59 mg total) Medica l tablet 00 :00 by mouth Center every 6 (six) hours as needed for Pain for up to 5 days. amoxicillin 2021- No 1{tbl} Take [address] -clavulanat 8-06 18-16 tablet by Marilyn horvath 00:00: 23:59 mouth Medical (AUGMENTIN) 00 :00 every 12 Cent er 875-125 mg (twelve) per tablet hours for 5 days. senna-docus 2021- No 2{tbl} QD Take [address] ate 8-06 18-16 tablets by Dionte (SENOKOT S) 00:00: 23:59 mouth Medi [place] 8.6-50 mg 00 :00 nightly Center per tablet for 5 days. ketorolac 2021- No 10mg Take [facility] (TOR[facility] 8- 08-16 tablet (10 Ernesto es 10 mg 00:00: 23:59 mg total) Medica l tablet 00 :00 by mouth Center every 6 (six) hours as needed for Pain for up to 5 days. amoxicillin 2021- No 1{tbl} Take [address] -clavulanat 8-11 08-16 tablet by Marilyn horvath 00:00: 23:59 mouth Medical (AUGMENTIN) 00 :00 every 12 Cent er 875-125 mg (twelve) per tablet hours for 5 days. senna-docus 2021- No 2{tbl} QD Take [address] ate 03-21-16 tablets by [facility] (SENOKOT S) 00:00: 23:59 mouth Medi [place] 8.6-50 mg 00 :00 nightly Center per tablet for 5 days. phenazopyri 2021-2021- No 100mg Take [address] [facility] [address] [facility]ine 03-21-14 tablet [facility] (PYRIDIUM) 00:00: 23:59 (100 mg [...] Pain for up to 3 days. traMADoL 2021-2021- No 50mg Take [address] [facility] (ULTRAM) 50 03-14-14 tablet (50 L [facility] mg tablet 00:00: 23:59 mg total) Me dical 00 :00 by mouth Center every 6 (six) hours as needed for Pain for up to 10 days. Max Daily Amount: 200 mg oxybutynin 2021-2021- No 5mg Take [address] [facility] (DITROPAN) 03-14-14 tablet (5 Ernesto es 5 MG tablet 00:00: 23:59 mg total) Medical 00 :00 by mouth 3 Center (three) times daily as needed (bladder spasm) for up to 10 days. traMADoL 2021-0 2021- No 50mg Take [address] [facility] (ULTRAM) 50 03-14-14 tablet (50 L [facility] mg tablet 00:00: 23:59 mg total) Me dical 00 :00 by mouth Center every 6 (six) hours as needed for Pain for up to 10 days. Max Daily Amount: 200 mg oxybutynin 2021-0 2- No 5mg Take [address] [facility] (DITROPAN) 03-14-14 tablet (5 Ernesto es 5 MG tablet 00:00: 23:59 mg total) Medical 00 :00 by mouth 3 Center (three) times daily as needed (bladder spasm) for up to 10 days. ketorolac 2-0 2- No 10mg Take [facility] (TOR[facility]OL) 03-14-11 tablet (10 Ernesto es 10 mg 00:00: 00:00 mg total) Medica l tablet 00 :00 by mouth Center every 6 (six) hours as needed for Pain for up to 5 days. phenazopyri 2021-0 2021- No 100mg Take [address] [facility] [address] [facility]ine 03-14- tablet [facility] (PYRIDIUM) 00:00: 00:00 (100 mg Med ical 100 MG 00 :00 total) by Center tablet mouth 3 (three) times daily as needed for Pain for up to 3 days. ketorolac 2021-0 2021- No 10mg Take [facility] (TORADOL) 03-14 tablet (10 Ernesto es 10 mg 00:00: 00:00 mg total) Medica l tablet 00 :00 by mouth Center every 6 (six) hours as needed for Pain for up to 5 days. phenazopyri 2021-0 2021- No 100mg Take [address] [facility] [address] [facility] 03-14- tablet [facility] (PYRIDIUM) 00:00: 00:00 (100 mg Med ical 100 MG 00 :00 total) by Center tablet mouth 3 (three) times daily as needed for Pain for up to 3 days. amoxicillin 2021-2021- No 1{tbl} Q.5D Take [address] -clavulanat 03-08-05 tablet by Marilyn kes e 00:00: 23:59 mouth 2 Medical (AUGMENTIN) 00 :00 (two) Center 875-125 mg times per tablet daily for 7 days. amoxicillin 2021-0 2021- No 1{tbl} Q.5D Take [address] -clavulanat -08 04-05 tablet by Marilyn kes e 00:00: 23:59 mouth 2 Medical (AUGMENTIN) 00 :00 (two) Center 875-125 mg times per tablet daily for 7 days. clotrimazol 2021-2- No Flank pain Apply 0.[address] [facility] [...] No Q.5D Apply [facility] (LOPROX[facility] 02-26- topically [facility] 0.77 % 00:00: 00:00 2 (two) Medical cream 00 :00 times Center daily. fluconazole 2021- No 150mg Take [address] [facility] [address] [facility] (DIFLUCAN) 02-26 tablet [facility] 150 MG 00:00: 23:59 (150 mg Medical tablet 00 :00 total) by Center mouth once for 1 dose. fluconazole 2021- No 150mg Take [address] [facility] [address] [facility] (DIFLUCAN) 02-26 tablet [facility] 150 MG 00:00: 23:59 (150 mg Medical tablet 00 :00 total) by Center mouth once for 1 dose. amoxicillin 2021- No 1{tbl} Q.5D Take 1 [...] mouth 2 Medical (AUGMENTIN) 00 :00 (two) [place] 875-125 mg times per tablet daily for 3 days. proMETHazin Yes [id number] 25mg Insert 1 [facility] 25 mg 6-07 Supp[facility] [place] supp[place] 00:[place] rectum [place] every 4 Branch (four) hours as needed for Nausea and Vomiting (N/V). proMETHazin Yes [id number] 25mg Insert 1 [facility] 25 mg 6-07 Suppositor [facility] suppository 00:00: [place] rectum [facility] every 4 Branch (four) hours as needed for Nausea and Vomiting (N/V). proMETHazin Yes [id number] 25mg Insert 1 [facility] 25 mg 6-07 Suppositor [facility] of suppository 00:00: [place] rectum Medical every 4 Branch (four) hours as needed for Nausea and Vomiting (N/V). proMETHazin Yes [id number] 25mg Insert 1 [facility] 25 mg 6-07 Suppositor [facility]y of suppository 00:00: [place] rectum Medical every 4 Branch (four) hours as needed for Nausea and Vomiting (N/V). proMETHazin Yes [id number] 25mg Insert 1 [facility] 25 mg 6-07 Suppositor [facility] of suppository 00:00: [place] rectum Medical every 4 Branch (four) hours as needed for Nausea and Vomiting (N/V). proMETHazin Yes [id number] 25mg Insert 1 [facility] 25 mg 6-07 Suppositor [facility] of suppository 00:00: [place] rectum Medical every 4 Branch (four) hours as needed for Nausea and Vomiting (N/V). proMETHazin Yes [id number] 25mg Insert 1 [facility] 25 mg 6-07 Suppositor [facility]y of suppository 00:00: y [place] rectum Medical every 4 Branch (four) hours as needed for Nausea and Vomiting (N/V). proMETHazin Yes [id number] 25mg Insert 1 [facility] 25 mg 6-07 Suppositor [facility]y of suppository 00:00: [place] rectum Medical every 4 Branch (four) hours as needed for Nausea and Vomiting (N/V). proMETHazin Yes [id number] 25mg Insert 1 [facility] 25 mg 6-07 Suppositor [facility]y of suppository 00:00: [place] rectum Medical every 4 Branch (four) hours as needed for Nausea and Vomiting (N/V). proMETHazin Yes [id number] 25mg Insert 1 [facility] 25 mg 6-07 Suppositor [facility]y of suppository 00:00: y [place] rectum Medical every 4 Branch (four) hours as needed for Nausea and Vomiting (N/V). proMETHazin Yes [id number] 25mg Insert 1 [facility] 25 mg 6-07 Suppositor [facility]y of suppository 00:00: [place] rectum Medical every 4 Branch (four) hours as needed for Nausea and Vomiting (N/V). proMETHazin Yes [id number] 25mg Insert 1 [facility] 25 mg 6-07 Suppositor [facility]y of suppository 00:00: [place] rectum Medical every 4 Branch (four) hours as needed for Nausea and Vomiting (N/V). proMETHazin Yes [id number] 25mg Insert 1 [facility] 25 mg 6-07 Suppositor [facility]y of suppository 00:00: [place] rectum Medical every 4 Branch (four) hours as needed for Nausea and Vomiting (N/V). proMETHazin Yes [id number] 25mg Insert 1 [facility] 25 mg 6-07 Suppositor [facility]y of suppository 00:00: [place] rectum Medical every 4 Branch (four) hours as needed for Nausea and Vomiting (N/V). proMETHazin Yes [id number] 25mg Insert 1 [facility] 25 mg 6-07 Suppositor [facility]y of suppository 00:00: [place] rectum Medical every 4 Branch (four) hours as needed for Nausea and Vomiting (N/V). proMETHazin Yes [id number] 25mg Insert 1 [facility] 25 mg 6-07 Suppositor [facility]y of suppository 00:00: [place] rectum Medical every 4 Branch (four) hours as needed for Nausea and Vomiting (N/V). proMETHazin Yes [id number] 25mg Insert 1 [facility] 25 mg 6-07 Suppositor [facility]y of suppository 00:00: [place] rectum Medical every 4 Branch (four) hours as needed for Nausea and Vomiting (N/V). proMETHazin Yes [id number] 25mg Insert 1 [facility] 25 mg 6-07 Suppositor [facility]y of suppository 00:00: [place] rectum Medical every 4 Branch (four) hours as needed for Nausea and Vomiting (N/V). proMETHazin Yes [id number] 25mg Insert 1 [facility] 25 mg 6-07 Suppositor [facility]y of suppository 00:00: [place] rectum Medical every 4 Branch (four) hours as needed for Nausea and Vomiting (N/V). proMETHazin Yes [id number] 25mg Insert 1 [facility] 25 mg 6-07 Suppositor [facility] of suppository 00:00: [place] rect[place] Medical every 4 Branch (four) hours as needed for Nausea and Vomiting (N/V). proMETHazin 2022- No [id number] 25mg Insert 1 [facility] 25 mg 6-07 01-19 Suppositor ity o f suppository 00:00: 00:00 y into [place] 00 :00 rectum Medical every 4 Branch (four) hours as needed for Nausea and Vomiting (N/V). proMETHazin 2022- No [id number] 25mg Insert 1 [facility] 25 mg 6-07 01-19 Suppositor ity o f suppository 00:00: 00:00 y into [place] 00 :00 rectum Medical every 4 Branch (four) hours as needed for Nausea and Vomiting (N/V). sulfamethox 2021- No 160mg{t Q.5D Take [address] [facility] azole-trime 01-10 rimetho tablet Marilyn kes thoprim 00:00: 23:59 [...] 800-160 mg tabs (1tab q12 D10). ketorolac 2021-2021- No 10mg Take 1 [facility] ([facility]OL[facility] - 06-07 tablet (10 Ernesto es 10 mg 00:00: 23:59 mg total) Medica l tablet 00 :00 by mouth Center every 8 (eight) hours as needed for Pain for up to 5 days. ketorolac 2021-2021- No 10mg Take 1 [facility] (TORADOL) 01-10 06-07 tablet (10 Ernesto es 10 mg 00:00: 23:59 mg total) Medica l tablet 00 :00 by mouth Center every 8 (eight) hours as needed for Pain for up to 5 days. phenazopyri 2021-2021- No 200mg [id number] Take [address] [facility] dine 6- 06-04 [id number] tablet [facility] (PYRIDIUM) 00:00: 23:59 3D (200 mg Med ical 200 MG 00 :00 total) by Center tablet mouth 3 (three) times daily for 2 days. phenazopyri 2021-2021- No 200mg [id number] Take [address] [facility] dine 6- 06-04 [id number] tablet [facility] (PYRIDIUM) 00:00: 23:59 3D (200 mg Med ical 200 MG 00 :00 total) by Center tablet mouth 3 (three) times daily for 2 days. HYDROcodone 2021-2021- No 1{tbl} Take [address] -acetaminop 5- 06-08 tablet by Marilyn post (OROS) 00:00: 23:59 mouth Medi darren 5-325 mg 00 :00 every 6 Center per tablet (six) hours as needed for Pain for up to 10 days. Max Daily Amount: 4 tablets HYDROcodone 2021-2021- No 1{tbl} Take [address] -acetaminop 5-29 06-08 tablet by Marilyn post (OROS) 00:00: 23:59 mouth Medi darren 5-325 mg 00 :00 every 6 Center per tablet (six) hours as needed for Pain for up to 10 days. Max Daily Amount: 4 tablets ketorolac 2021- No 10mg Take 1 [facility] (TORADOL) 01-06 tablet (10 Ernesto es 10 mg 00:00: 00:00 mg total) Medica l tablet 00 :00 by mouth Center every 6 (six) hours as needed for Pain for up to 5 days. ketorolac 2021- No 10mg Take [facility] (TORADOL) 01-06 tablet (10 Ernesto es 10 mg 00:00: 00:00 mg total) Medica l tablet 00 :00 by mouth Center every 6 (six) hours as needed for Pain for up to 5 days. acetaminoph 2021- No Acute 1{tbl} Take [address] [facility] en-codeine 01-04 bilateral tablet by L[facility] (Tylenol-Co 00:00: 23:59 back pain, mouth Medical [...] Me dical l-monohydra 00 :00 total) by Jena Carlos ter te, mouth 2 (MACROBID) (two) 100 MG times capsule daily for 10 days. acetaminoph 2021- No Acute 1{tbl} Take [address] [facility] en-codeine 01-04 bilateral tablet by Dionte (Tylenol-Co 00:00: 23:59 back pain, mouth Medical [...] l-monohydra 00 :00 total) by Jean Carlos puga te, mouth 2 (MACROBID) (two) 100 MG times capsule daily for 10 days. phenazopyri 2021-2021- No 100mg Take [address] [facility] [address] [facility]ine 01-04-30 tablet [facility] (PYRIDIUM) 00:00: 23:59 (100 mg Med ical 100 MG 00 :00 total) by Center tablet mouth 3 (three) times daily as needed for Pain for up to 3 days. phenazopyri 2021-0 2021- No 100mg Take [address] [facility] [address] [facility] dine 01-04-30 tablet [facility] (PYRIDIUM) 00:00: 23:59 (100 mg Med ical 100 MG 00 :00 total) by Center tablet mouth 3 (three) times daily as needed for Pain for up to 3 days. amoxicillin 2021-2021- No 1{tbl} Q.5D Take [address] -clavulanat 5-20 05-27 tablet by Marilyn kes e 00:00: 00:00 mouth 2 Medical (AUGMENTIN) 00 :00 (two) Center 875-125 mg times per tablet daily for 7 days. amoxicillin 2021- No 1{tbl} Q.5D Take [address] -clavulanat 5-20 05-27 tablet by Marilyn kes e 00:00: 00:00 mouth 2 Medical (AUGMENTIN) 00 :00 (two) Center 875-125 mg times per tablet daily for 7 days. acetaminoph 2021- No Acute 1{tbl} Take [address] [facility] en-codeine 5-18 05-27 bilateral tablet by [facility] (Tylenol-Co 00:00: 00:00 back pain, mouth Medical deine #3) 00 :00 unspecified every 4 Center 300-30 mg back (four) per tablet location hours as needed for Pain for up to 10 days. Max Daily Amount: 6 tablets acetaminoph No Acute 1{tbl} Take [address] [facility] en-codeine 5-18 05-27 bilateral tablet by [facility] ([facility] 00:00: 00:00 back pain, mouth Medical [...] Center daily as needed for Nausea. traZODone 2021- No 100mg Take [address] [facility] [address] [facility] (DESYREL) 5-17 05-17 mg by [facility] 100 MG 08:29: 00:00 mouth Medical tablet 54 :00 Takes 2 Center tablets by mouth at night. traZODone 2021- No 100mg Take [address] [facility] [address] [facility] (DESYREL) 5-17 05-17 mg by [facility] 100 MG 08:29: 00:00 mouth Medical tablet 54 :00 Takes 2 Center tablets by mouth at night. pancrelipas 2021-0 2021- No [id number]{ Take [facility] e, 5-17 05-17 lipase} 12,000 [facility] Lip-Prot-Am 08:29: 00:00 units of M edical yl, (CREON) 32 :[address] 12,000-38,0 mouth 3 00 -60,000 (three) unit CpDR times capsule daily with meals. pancrelipas 2021-0 2022- No [id number]{ Take [facility], 5-17 05-17 lipase} 12,000 [facility] Lip-Prot-[facility] 08:29: 00:00 units of M edical yl, (CREON) 32 :[address] 12,000-38,0 mouth 3 00 -60,000 (three) unit CpDR times capsule daily with meals. metoclopram 2021-0 202- No 5mg Take [address] [facility] teresa 5-17 05-17 by mouth 3 [facility] (REGLAN) 5 08:29: 00:00 (three) Med ical MG tablet 11 :00 times Center daily with meals. metoclopram 2021-0 2- No 5mg Take [address] [facility] teresa 5-17 05-17 by mouth 3 [facility] (REGLAN) 5 08:29: 00:00 (three) Med ical MG tablet 11 :00 times Center daily with meals. lisdexamfet 2-0 2022- No 50mg QD Take [address] [facility] amine 5-17 05-17 by mouth [facility] (VYVANSE) 08:29: 00:00 every Medica l 50 MG 05 :00 morning. Center capsule lisdexamfet 2-0 2022- No 50mg QD Take [address] [facility] amine 5-17 05-17 by mouth [facility] (VYVANSE) 08:29: 00:00 every Medica l 50 MG 05 :00 morning. Center capsule escitalopra 2-0 2022- No 20mg QD Take [address] [facility] m oxalate 5-17 05-17 by mouth [facility] (LEXAPRO) 08:28: 00:00 daily. Medic al 20 MG 52 :00 Center tablet escitalopra 2021- No 20mg QD Take 20 mg [facility] [...] MG 40 :00 daily. Center tablet Creon Yes [facility] 36,000-114, 5-17 [facility] 000- 00:00: Medical 180,000 00 Center unit CpDR capsule Creon Yes [facility] 36,000-114, 5-17 [facility] 000- [...] days. Max Daily Amount: 6 tablets acetaminoph 2021-0 2- No 1{tbl} Take [address] en-codeine 5-17 05-17 tablet by [facility] (Tylenol-Co 00:00: 00:00 mouth Medi darren deine #3) 00 :00 every 4 Center 300-30 mg (four) per tablet hours as needed for Pain for up to 10 days. Max Daily Amount: 6 tablets acetaminoph 2021-0 2021- No 1{tbl} Take 1 C [...] days. Max Daily Amount: 6 tablets acetaminoph 2021-0 2021- No 1{tbl} Take [address] en-codeine 5-17 05-17 tablet by [facility] (Tylenol-Co 00:00: 00:00 mouth Medi darren deine #3) 00 :00 every 4 Center 300-30 mg (four) per tablet hours as needed for Pain for up to 10 days. Max Daily Amount: 6 tablets acetaminoph 2021-0 2021- No 1{tbl} Take [address] en-codeine 5-17 05-17 tablet by [facility] (Tylenol-Co 00:00: 00:00 mouth Medi darren deine #3) 00 :00 every 4 Center 300-30 mg (four) per tablet hours as needed for Pain for up to 10 days. Max Daily Amount: 6 tablets famotidine Yes 40mg Take [address] [facility] (PEPCID) 40 4-26 by mouth [facility] MG tablet 00:00: every Medical 00 night as Center needed . montelukast Yes [facility] (SINGULAIR) 4-26 [facility] 10 mg 00:00: Medical tablet 00 Center famotidine Yes 40mg Take [address] [facility] (PEPCID) 40 12-04 by mouth [facility] MG tablet 00:00: every Medical 00 night as Center needed . montelukast Yes [facility] (SINGULAIR) 4-26 [facility] 10 mg 00:00: Medical tablet 00 Center All Day 202- No 10mg QD Take [address] [facility] Allergy, 12-04 by mouth [facility] cetirizine, 00:00: 00:00 daily . Me dical 10 mg 00 :00 Center tablet All Day 2021- No 10mg QD Take [address] [facility] Allergy, 12-04 by mouth [facility] cetirizine, 00:00: 00:00 daily . Me dical 10 mg 00 :00 Center tablet divalproex Yes 500mg Take [address] (DEPAKOTE) 1-04 mg by [facility] 500 MG EC 14:00: mouth. Medica l tablet 22 Center divalproex 0 Yes 500mg Take [address] [...] daily as needed for Anxiety . traZODone 0 Yes 100mg Take [address] [facility] (DESYREL) 1-04 mg by [facility] 100 MG 13:56: mouth Medical tablet 53 Takes 2 Center tablets by mouth at night. metoclopram 0 Yes 5mg Take [address] [facility] teresa 1-04 by mouth 3 [facility] (REGLAN) 5 13:56: (three) Medi darren MG tablet 53 times Center daily with meals. pancrelipas 2022-0 Yes [id number]{ Take [facility], 1-04 lipase} 12,000 [...] daily as needed for Anxiety . traZODone 2021-0 Yes 100mg Take [address] [facility] (DESYREL) 1-04 mg by [facility] 100 MG 13:56: mouth Medical tablet 53 Takes 2 Center tablets by mouth at night. metoclopram 2-0 Yes 5mg Take [address] [facility] teresa 1-04 by mouth 3 [facility] (REGLAN) 5 13:56: (three) Medi darren MG tablet 53 times Center daily with meals. pancrelipas 2021-0 Yes [id number]{ Take [facility], 1-04 lipase} 12,000 [...] total) by Center capsule mouth daily. ketorolac 2020-08- No 10mg Take 1 [facility] [...] 160mg{t Q.5D Take [address] [facility] azole-trime 08-20 11-13 rimetho tablet Marilyn kes thoprim 00:00: 23:59 prim} (160 mg of Me dical (BACTRIM 00 :00 trimethopr Cente r DS) 800-160 im total) mg per by mouth 2 tablet (two) times daily for 3 days smx-tmp DS (BACTRIM) 800-160 mg tabs (1tab q12 D10). sulfamethox 2020-08- No 160mg{t Q.5D Take [address] [facility] azole-trime 08-20 11-13 rimetho tablet Marilyn kes thoprim 00:00: 23:59 prim} (160 mg of Me dical (BACTRIM 00 :00 trimethopr Cente r DS) 800-160 im total) mg per by mouth 2 tablet (two) times daily for 3 days smx-tmp DS (BACTRIM) 800-160 mg tabs (1tab q12 D10). [facility] [facility] [facility] mg tablet 0-20 [facility] 00:[facility]: Medical 00 [place] [facility] 2020-[address] mg tablet 0-20 [facility] 00:[facility]: Medical 00 [place] Vi[facility] 2020-08 Yes 20mg QD Take [address] mg tablet 0-20 by [facility] 00:[facility]: daily . [address] Viibryd 20 2020-08 Yes 20mg QD Take [address] mg tablet 0-20 by [facility] 00:[facility]: daily . [address] ondansetron Yes 4mg Q8H Take 1 Meth royce [...] as needed for nausea or vomiting. ondansetron Yes 4mg Q8H Take 1 Meth royce [...] 40mg QD Take 1 Met hodi e 02-07 07-15 tablet (40 st (Protonix) 00:00: 04:59 mg total) H ospita 40 MG EC 00 :00 by mouth l tablet daily for 14 days. sucralfate 2020-0 2020- No 1g Q.25D Take 10 mL [facility] (Carafate) 02-07-11 ([address] 100 mg/mL 00:00: 04:59 total) by [facility] suspension 00 :00 mouth 4 l (four) times a day with meals and nightly for 10 days. sucralfate 2020-0 2020- No 1g Q.25D Take 10 mL [facility] (Carafate) 02-07-11 ([address] 100 mg/mL 00:00: 04:59 total) by [facility] suspension 00 :00 mouth 4 l (four) times a day with meals and nightly for 10 days. sucralfate 2020-0 2020- No 1g Q.25D Take 10 mL [facility] (Carafate) 02-07- (1 g st 100 mg/mL 00:00: 04:59 total) by [facility] suspension 00 :00 mouth 4 l (four) times a day with meals and nightly for 10 days. famotidine 0 2020- No 20mg Q24H Take 20 mg [...] times a l day. ergocalcife 2020-0 Yes [id number] Q7D Take Meth royce rol 4-25 50,000 [facility] (VITAMIN 20:24: Units by [facility]pi ta D2) 50,000 00 mouth once l unit a week. ( capsule No set day of the week ) divalproex Yes 500mg QD Take 500 [facility] (DEPAKOTE) 4-[address] 500 MG EC 20:24: mouth Hospita tablet 00 nightly. l divalproex Yes 250mg QD Take 250 [facility] (DEPAKOTE) 4-[address] 250 MG EC 20:24: mouth [facility]osp[facility] tablet 00 every l morning. lipase-prot Yes 1{capsu Q.11430231 Take 1 [facility] ease-amylas 4-25 le} [id number] capsule by st e (CREON) 20:24: 3D [...] 03 :00 needed for l heartburn. famotidine 0 2020- No 20mg Q24H Take 20 mg [facility] (PEPCID) 20 4-25 04-[address] MG tablet 15:24: 00:00 daily as [facility] 03 :00 needed for l heartburn. ondansetron Yes 4mg Q12H Take 4 mg M [facility] (ZOFRAN) 4 4-[address] MG tablet 15:24: every 12 [facility] (twelve) l hours as needed for nausea or vomiting. clonAZEPAM 2021-0 Yes 1mg Q.5D Take 1 mg [facility] (KlonoPIN) 4-[address] 1 MG tablet 15:24: (two) Hospi ta 00 times a l day. ergocalcife 2021-0 Yes [id number] Q7D Take Meth roy[facility] rol 4-25 50,000 [address] (VITAMIN 15:24: Units by Hospi ta D2) 50,000 00 mouth once l unit a week. ( capsule No set day of the week ) divalproex 2021-0 Yes 500mg QD Take 500 [facility] (DEPAKOTE) 4-[address] 500 MG EC 15:24: mouth [facility]ospita tablet 00 nightly. l divalproex 2021-0 Yes 250mg QD Take 250 [facility] (DEPAKOTE) 4-[address] 250 MG EC 15:24: mouth [facility]ospita tablet 00 every l morning. lipase-prot 2020-0 Yes 1{capsu Q.46031263 Take 1 [facility] ease-amylas 4-25 le} [id number] capsule by st e (CREON) 15:24: 3D mouth 3 Hospi ta 36,000-114, 00 (three) l 000- times a 180,000 day. unit capsule,del ayed release(DR/ EC) lipase-prot 2020-0 Yes 1{capsu Take 1 M ethodi ease-amylas 4-25 le} capsule by st e (CREON) 15:24: mouth with Ho spita 36,000-114, 00 snacks. l 000- 180,000 unit capsule,del ayed release(DR/ EC) ondansetron 1-0 Yes 4mg Q12H Take 4 mg M [facility]i (ZOFRAN) 4 4-[address] MG tablet 15:24: every 12 [facility] 00 (twelve) l hours as needed for nausea or vomiting. clonAZEPAM 2021-0 Yes 1mg Q.5D Take 1 mg [facility] (KlonoPIN) 4-[address] 1 MG tablet 15:24: (two) Hospi ta 00 times a l day. ergocalcife 2021-0 Yes [id number] Q7D Take Meth roy[facility] rol 4-25 50,000 [...] every l morning. lipase-prot 2020-0 Yes 1{capsu Q.66723167 Take 1 [facility] ease-amylas 4-25 le} [id number] capsule by e (CREON) 15:24: 3D mouth [...] times a l day. ergocalcife 2020-0 Yes [id number] Q7D Take Meth [facility]l 4-25 50,000 [...] every l morning. lipase-prot 2020-0 Yes 1{capsu Q.57622177 Take 1 [facility] ease-amylas 4-25 le} [id number] capsule by st e (CREON) 15:24: 3D [...] times a l day. ergocalcife 2020-0 Yes [id number] Q7D Take Meth [facility] rol 4-25 50,000 [...] every l morning. lipase-prot 2020-0 Yes 1{capsu Q.03742470 Take 1 [facility] ease-amylas 4-25 le} [id number] capsule by st e (CREON) 15:24: 3D [...] 40mg QD Take 1 [facility] e 4-25 05-26 tablet (40 st (Protonix) 00:00: 04:59 mg total) H ospita 40 MG EC 00 :00 by mouth l tablet daily for 30 days. sucralfate 2020-2020- No 1g Q.25D Take 1 [facility] (Carafate) 4-25 05-26 tablet (1 st 1 gram 00:00: 04:59 g total) Hospit a tablet 00 :00 by mouth 4 l (four) times a day for 30 days. pantoprazol 2020-2020- No 40mg QD Take 1 [facility] e 4-25 05-26 tablet (40 st (Protonix) 00:00: 04:59 mg total) H [facility]spita 40 MG EC 00 :00 by mouth l tablet daily for 30 days. sucralfate 2020-0 2020- No 1g Q.25D Take 1 [facility] (Carafate) 4-25 05-26 tablet (1 st 1 gram 00:00: 04:59 g total) Hospit a tablet 00 :00 by mouth 4 l (four) times a day for 30 days. pantoprazol No 40mg QD Take 1 Met hodi [...] day for 30 days. traMADoL 2020- No [id number] 50mg Q6H Take 1 [facility] (Ultram) 50 4-25 05-03 tablet (50 s t mg tablet 00:00: 04:59 mg total) [facility] 00 :00 by mouth l every 6 (six) hours as needed for moderate pain for up to 7 days .acute pain. traMADoL 2020- No [id number] 50mg Q6H Take 1 [facility] (Ultram) 50 -25 05-03 tablet (50 s t mg tablet 00:00: 04:59 mg total) [facility] 00 :00 by mouth l every 6 (six) hours as needed for moderate pain for up to 7 days .acute pain. traMADoL 2020- No [id number] 50mg Q6H Take 1 [facility] (Ultram) 50 4-25 05-03 tablet (50 s t mg tablet 00:00: 04:59 mg total) [facility] 00 :00 by mouth l every 6 (six) hours as needed for moderate pain for up to 7 days .acute pain. topiramate 2020- No 50mg QD Take 50 mg [facility] (TOPIRAGEN) 12-01-[address] 50 MG 13:40: 00:00 daily. Hospita tablet 18 :00 l SUMAtriptan 2020- No 50mg Q24H Take 50 mg [facility] (IMITREX) -01 12-[address] 50 MG 13:40: 00:00 [...] a l day. metoclopram 2020- No 5mg Q.[id number] Take 5 mg [facility] teresa -01 12- [id number] by mouth 3 st (REGLAN) 5 13:39: 00:00 3D (three) [facility] MG tablet 38 :00 times a l day as needed (for GERD). lamoTRIgine 2020- No 200mg QD Take 200 [facility] (LaMICtal) 12-01-[address] 200 MG 13:39: 00:00 mouth Hospita tablet 27 :00 every l morning. fesoterodin 2020- No 4mg QD Take 4 mg [facility] (TOVIAZ) 12-01- by mouth st 4 mg tablet 13:39: 00:00 daily. [facility] extended 08 :00 l release 24 hr esomeprazol 2020- No 40mg QD Take 40 mg [facility] (NexIUM) 12-01- by mouth st 40 MG 13:38: 00:00 daily. Hospita capsule 51 :00 l cetirizine 2020- No 10mg Q24H Take 10 mg [facility] (ZyrTEC) 10 12-01- by mouth st MG tablet 13:38: 00:00 daily as [facility] 06 :00 needed for l allergies. buPROPion 2020- No 150mg QD Take 150 [facility] XL 12-01-[address] (WELLBUTRIN 13:36: 00:00 mouth [facility] XL) 150 MG 12 :00 every l 24 hr morning. tablet topiramate 2020- No 50mg QD Take 50 mg [facility] (TOPIRAGEN) -01 12-[address] 50 MG 08:40: 00:00 daily. Hospita tablet 18 :00 l topiramate 2020- No 50mg QD Take 50 mg [facility] (TOPIRAGEN) 12-01-[address] 50 MG 08:40: 00:00 daily. Hospita tablet 18 :00 l SUMAtriptan 2020- No 50mg Q24H Take 50 mg [facility] (IMITREX) 12-[address] 50 MG 08:40: 00:00 daily as Hospita tablet 05 :00 needed for l migraine. May repeat in 2 hours if unresolved . Do not exceed 200 mg in 24 hours. SUMAtriptan 2020- No 50mg Q24H Take 50 [...] 58 :00 times a l day. propranolol 2020- No 10mg Q.5D Take 10 mg [facility] (INDERAL) 12-[address] 10 MG 08:39: 00:00 (two) Hospita tablet 58 :00 times a l day. metoclopram 2020- No 5mg Q.74399251 Take 5 mg [facility] te[facility] 12-01- [id number] by mouth 3 [facility] (REGLAN) 5 08:39: 00:00 3D (three) [facility] MG tablet 38 :00 times a l day as needed (for GERD). metoclopram 2020- No 5mg Q.17735645 Take 5 mg [facility] 12-01- [id number] by mouth 3 [facility] (REGLAN) 5 08:39: 00:00 3D (three) [facility] MG tablet 38 :00 times a l day as needed (for GERD). lamoTRIgine 2020-2020- No 200mg QD Take 200 [facility] (LaMICtal) 4-23 04-[address] 200 MG 08:39: 00:00 mouth Hospita tablet 27 :00 every l morning. lamoTRIgine 2020-2020- No 200mg QD Take 200 [facility] (LaMICtal) 4-23 04-[address] 200 MG 08:39: 00:00 mouth Hospita tablet 27 :00 every l morning. fesoterodin 2020- No 4mg QD Take 4 mg [facility] (TOVIAZ) 4- 04-[address] 4 mg tablet 08:39: 00:00 daily. [facility] extended 08 :00 l release 24 hr fesoterodin 2020- No 4mg QD Take 4 mg [facility] (TOVIAZ) 12-01-[address] 4 mg tablet 08:39: 00:00 daily. [facility] extended 08 :00 l release 24 hr esomeprazol 2020- No 40mg QD Take 40 mg [facility] (NexIUM) 12-01-[address] 40 MG 08:38: 00:00 daily. Hospita capsule 51 :00 l esomeprazol 2020- No 40mg QD Take 40 mg [facility] (NexIUM) 12-01-[address] 40 MG 08:38: 00:00 [...] every l 24 hr morning. tablet buPROPion 2020- No 150mg QD Take 150 [facility] XL 4-23 04-[address] (WELLBUTRIN 08:36: 00:00 mouth [facility] XL) 150 MG 12 :00 every l 24 hr morning. tablet atorvastati 2020- No 40mg QD Take 40 mg [facility] n (LIPITOR) 11-[address] 40 MG 21:56: 00:00 [...] :00 l Ondansetron 2019-0 Yes Take by [facility] (ZOFRAN 05-09 mouth. [facility] OR) 19:50: of 04 Medicin e escitalopra 2019-0 Yes 20mg Take 20 mg Ean m (LEXAPRO) 05-09 by mouth Karri ege 20 MG 19:50: daily. of tablet 04 Medicin e lamotrigine 2019-0 Yes 200mg Take 200 [facility] (LAMICTAL) - mg by [facility] 200 MG 19:50: mouth of tablet 04 daily. Medicin e buPROPion 2019-0 Yes 150mg Take 150 [facility] (WELLBUTRIN 9- mg by [facility] SR) 150 MG 19:50: mouth two of SR tablet 04 times Medicin daily. e Bismuth 2019-0 Yes Take by [facility] Subsalicyla 05-09 mouth. Colleg e te 19:50: of (CHEIRE-PECTI 04 Medicin N DS) 525 e MG/15ML SUSP ClonazePAM 2019-0 Yes .25mg Take 0.25 [facility] (KLONOPIN 9-29 mg by [facility] OR) 19:50: mouth. of 04 Medicin e Cetirizine 2020-0 Yes Take by [facility] (ZYRTEC 05-09 mouth. Colleg e ALLERGY OR) 19:50: of 04 Medicin e Fesoterodin 2019-0 Yes Take by [facility] Fumarate - mouth. [facility] (TOVIAZ) 4 19:50: of MG TB24 04 Medicin e TraMADol 2019-0 Yes Take by [facility] HCl 100 MG 05-09 mouth. [facility] CP24 19:50: of 04 Medicin e atorvastati 2020-0 Yes 40mg Take 40 mg Ean n (LIPITOR) 05-09 by mouth Kar[facility] e[facility] 40 MG 19:50: daily. of tablet 04 Medicin e lamotrigine 2020-0 Yes 250mg Take 250 [facility] (LAMICTAL) 9-29 mg by [facility] 200 MG 19:50: mouth. of tablet 04 [...] hydrOXYzine 2020-0 Yes 50mg Take 50 mg Ean (ATARAX) 25 05-09 by mouth Karri ege MG tablet 19:50: nightly. of 04 Medicin e sertraline 2020-0 Yes 50mg Take 50 mg [facility] (ZOLOFT) 50 05-09 by mouth Karri e[facility] MG tablet 19:50: daily. of 03 Medicin e divalproex 2020-0 Yes 500mg Take 500 [facility] (DEPAKOTE) 9-29 mg by [facility] 500 MG EC 19:50: mouth of tablet 03 nightly. Medicin e trazodone 2020-0 Yes 200mg Take 200 [facility] (DESYREL) 9-29 mg by [facility] 100 MG 19:50: mouth of tablet 03 [...] No 4mg Take [address] [facility] (ZOFRAN-ODT 8 08-29 tablet (4 Marilyn kes ) 4 MG [...] Take [address] [facility] m oxalate 9- by [facility] (LEXAPRO) 11:36: daily. Medica l 20 MG 51 Center tablet clonazePAM Yes .25mg Take 0.[address] (KLONOPIN) 9-23 mg by [facility] 0.5 MG 11:36: mouth 2 Medical tablet 51 (two) Center times daily as needed for Anxiety . traZODone 2019-0 Yes 100mg Take [address] [facility] (DESYREL) 9-23 mg by [facility] 100 MG 11:36: mouth Medical tablet 51 Takes 2 Center tablets by mouth at night. metoclopram 2019-0 Yes 5mg Take [address] teresa 9- by mouth 3 [facility] (REGLAN) 5 11:36: (three) Medi darren MG tablet 51 times Center daily with meals. pancrelipas 2019-0 Yes [id number]{ Take [facility], - lipase} 12,000 [facility] Lip-Prot-Am 11:36: units of Me dical yl, (CREON) [address] 12,000-38,0 mouth 3 00 -60,000 (three) unit CpDR times capsule daily with meals. lisdexamfet 0 Yes 50mg QD Take [address] [facility] amine 9-23 by mouth [facility] (VYVANSE) 11:36: every Medical 50 MG 51 morning. Center capsule cloNIDine 0 Yes .1mg QD Take 0.[address] [facility] HCl 9-23 mg by [facility] (CATAPRES) 11:36: mouth Medica l 0.1 MG 51 daily. Center tablet ondansetron 0 Yes 4mg Take [address] (ZOFRAN) 4 - by mouth 2 Ernesto es MG tablet 11:36: (two) Medical 51 times Center daily as needed for Nausea. ondansetron 0 Yes 4mg Take [address] (ZOFRAN-ODT - by mouth Luke s ) 4 MG 11:36: every 8 Medical disintegrat 51 (eight) Cente r ing tablet hours as needed for Nausea. fexofenadin 2020- No Seasonal 1{tbl} Q.5D Take [address] [facility] e-pseudoeph 05-03 09- allergic tablet by [facility] edrine 00:00: 23:59 rhinitis, mouth 2 Me dical (REJI-D) 00 :00 unspecified (two) Center 60-120 mg trigger times per tablet daily. CREON [id number] 2018- Yes [id number] TAKE 2 [facility] units CPEP 7-30 CAPS BY Colleg e 00:00: MOUTH 3 of 00 TIMES Medicin DAILY e (WITH MEALS). AND 1 CAP WITH SNACKS. CREON [id number] Yes [id number] TAKE 2 [facility] units CPEP 7-30 CAPS BY Colleg e 00:00: MOUTH 3 of 00 TIMES Medicin DAILY e (WITH MEALS). AND 1 CAP WITH SNACKS. promethazin Yes [id number] 25mg Take 1 Tab [facility] e 2-15 by mouth [facility] (PHENERGAN) 00:00: every 6 of 25 MG 00 hours as Medicin tablet needed for e Nausea. promethazin Yes [id number] 25mg Take 1 Tab [facility] e 2-15 by mouth College (PHENERGAN) 00:00: every 6 of 25 MG 00 hours as Medicin tablet needed for e Nausea. clonazePAM Yes [facility] (KLONOPIN 2-11 College WAFER) 0.25 00:00: of MG oral 00 Medicin disintegrat e ing tablet clonazePAM Yes [facility] (KLONOPIN 2-11 College WAFER) 0.25 [...] 25 MG 00 needed . Center tablet traMADOL Yes 50mg Take 1 Tab [facility] (ULTRAM) 50 7-30 by mouth ity of mg tablet 00:00: every 6 [place] 00 (six) Medical hours as Branch needed for Pain. traMADOL Yes 50mg Take 1 Tab [facility] (ULTRAM) 50 7-30 by mouth ity of mg tablet 00:00: every 6 [place] 00 (six) Medical hours as Branch needed for Pain. traMADOL 2012-0 Yes 50mg Take 1 Tab [facility] (ULTRAM) 50 7-30 by mouth ity of mg tablet 00:00: every 6 [place] 00 (six) Medical hours as Branch needed for Pain. traMADOL 2012-0 Yes 50mg Take 1 Tab [facility] (ULTRAM) 50 7-30 by mouth ity of mg tablet 00:00: every 6 [place] 00 (six) Medical hours as Branch needed for Pain. traMADOL 2012-0 Yes 50mg Take 1 Tab [facility] (ULTRAM) 50 7-30 by mouth ity of mg tablet 00:00: every 6 [place] 00 (six) Medical hours as Branch needed for Pain. methocarbam 2012-0 Yes 750mg Take 1 Tab [facility] 7-30 by mouth 4 ity of (ROBAXIN) 00:00: (four) [place] 750 mg 00 times Medical tablet daily. Branch traMADOL 2012-0 Yes 50mg Take 1 Tab [facility] (ULTRAM) 50 7-30 by mouth ity of mg tablet 00:00: every 6 [place] [id number] (six) Medical hours as Branch needed for Pain. methocarbam 2012-0 Yes 750mg Take 1 Tab [facility] ol 7-30 by mouth 4 ity of (ROBAXIN) 00:00: (four) [place] 750 mg 00 times Medical tablet daily. Branch traMADOL 2012-0 Yes 50mg Take 1 Tab [facility] (ULTRAM) 50 7-30 by mouth ity of mg tablet 00:00: every 6 [place] [address] (six) Medical hours as Branch needed for Pain. methocarbam 2012-0 Yes 750mg Take 1 Tab [facility] 7-30 by mouth 4 ity of (ROBAXIN) 00:00: (four) [place] 750 mg 00 times Medical tablet daily. Branch traMADOL 2012-0 Yes 50mg Take 1 Tab [facility] (ULTRAM) 50 7-30 by mouth ity of mg tablet 00:00: every 6 [place] 00 (six) Medical hours as Branch needed [...] ity of mg tablet 00:00: every 6 [place] 00 (six) Medical hours as Branch needed for Pain. methocarbam 2012-0 Yes 750mg Take 1 Tab [facility] 7-30 by mouth 4 ity of (ROBAXIN) 00:00: (four) [place] 750 mg 00 times Medical tablet daily. Branch traMADOL 2012-0 Yes 50mg Take 1 Tab [facility] (ULTRAM) 50 7-30 by mouth ity of mg tablet 00:00: every 6 [place] 00 (six) Medical hours as Branch needed for Pain. methocarbam 2012-0 Yes 750mg Take 1 Tab [facility] 7-30 by mouth 4 ity of (ROBAXIN) 00:00: (four) [place] 750 mg 00 times Medical tablet daily. Branch traMADOL 2012-0 Yes 50mg Take 1 Tab [facility] (ULTRAM) 50 7-30 by mouth ity of mg tablet 00:00: every 6 [place] 00 (six) Medical hours as Branch needed for Pain. traMADOL 2012-0 Yes 50mg Take 1 Tab [facility] (ULTRAM) 50 7-30 by mouth ity of mg tablet 00:00: every 6 [place] 00 (six) Medical hours as Branch needed for Pain. traMADOL 2012-0 Yes 50mg Take 1 Tab [facility] (ULTRAM) 50 7-30 by mouth ity of mg tablet 00:00: every 6 [place] 00 (six) Medical hours as Branch needed [...] as Branch needed for Pain. traMADOL 2011-0 2022- No 50mg Take 1 Tab Un man[facility] (ULTRAM) 50 7-30 02-21 by mouth ity of mg tablet 00:00: 00:00 every 6 [place] :[place] (six) Medical hours as Branch needed for Pain. traMADOL 50mg Take 1 Tab Un manoj (ULTRAM) 50 730 02-21 by mouth ity of mg tablet 00:00: 00:00 every 6 [place] 00 :[place] (six) Medical hours as Branch needed for Pain. Vital Signs Vital Name Observation Time Observation Value Comments Source Systolic blood 2023-01-14 124 mm[Hg] [facility] pressure 18:28:00 [facility] Diastolic blood 2023-01-14 85 mm[Hg] University o f pressure 18:28:00 [facility] Heart rate 2023-01-14 85 /min University of 18:28: [facility] Respiratory rate 2023-01-14 18 /min [facility] of 18:28:00 [facility] Body height 2023-01-14 154.9 cm University of 18:28: [facility] Body weight 2023-01-14 101.334 kg University of 18:28:00 [facility] BMI 2023-01-14 42.21 kg/m2 University of 18:28:00 [facility] Oxygen saturation in 2023-01-14 97 /min Univers ity of Arterial blood by 18:28:00 [facility] Pulse oximetry Branch Systolic blood 2023-01-14 133 mm[Hg] [facility] of pressure 01:00:00 [facility] Diastolic blood 2023-01-14 73 mm[Hg] University o f pressure 01:00:00 [facility] Heart rate 2023-01-14 77 /min University of 01:00:00 [facility] Respiratory rate 2023-01-14 12 /min University of 01:00:00 [facility] Oxygen saturation in 2023-01-14 93 /min Univers ity of Arterial blood by 01:00:00 [facility] Pulse oximetry Branch Body temperature 2023-01-13 37.5 Anitha University of 22:36:00 [facility] Body weight 2023-01-13 103.874 kg University of 22:36:00 [facility] BMI 2023-01-13 43.27 kg/m2 University of 22:36:00 [facility] Systolic blood 2023-01-02 109 mm[Hg] [facility] of pressure 16:10:00 [facility] Diastolic blood 2023-01-02 69 mm[Hg] [facility] o f pressure 16:10:00 [facility] Heart rate 2023-01-02 77 /min [facility] 16:10:00 [facility] Body height 2023-01-02 154.9 cm [facility] 16:10:00 [facility] Body weight 2023-01-02 104.01 kg [facility] 16:10:00 [facility] BMI 2023-01-02 43.33 kg/m2 [facility] 16:10:00 [facility] Oxygen saturation in 2023-01-02 96 /min [facility] of Arterial blood by 16:10:00 [facility] Pulse oximetry Branch Systolic blood 2022-12-24 112 mm[Hg] University of pressure 19:44:00 [facility] Diastolic blood 2022-12-24 78 mm[Hg] University o f pressure 19:44:00 [facility] Heart rate 2022-12-24 86 /min [facility] of 19:44:00 [facility] Body height 2022-12-24 154.9 cm University of 19:44:00 [facility] Body weight 2022-12-24 105.96 kg University of 19:44:00 [facility] BMI 2022-12-24 44.14 kg/m2 University of 19:44:00 [facility] Oxygen saturation in 2022-12-24 96 /min Univers [facility]y of Arterial blood by 19:44:00 [facility] Pulse oximetry Branch HEIGHT 2022-12-20 154.9 cm 07:02:00 WEIGHT 2022-12-20 104.2 kg 07:02:00 HEIGHT 2022-12-20 154.9 cm 07:02:00 WEIGHT 2022-12-20 104.2 kg 07:02:00 HEIGHT 2022-12-06 154.9 cm 08:58:00 WEIGHT 2022-12-06 99.746 kg 08:58:00 HEIGHT 2022-12-06 154.9 cm 08:58:00 WEIGHT 2022-12-06 99.746 kg 08:58:00 Heart rate 2022-11-24 65 /min [facility] 18:25:00 [facility] Respiratory rate 2022-11-24 18 /min [facility] 18:25:00 [facility] Oxygen saturation in 2022-11-24 99 /min [facility]y of Arterial blood by 18:25:00 [facility] Pulse oximetry Branch Systolic blood 2022-11-24 107 mm[Hg] [facility] of pressure 15:46:00 [facility] Diastolic blood 2022-11-24 68 mm[Hg] University o f pressure 15:46:00 [facility] Body temperature 2022-11-24 36.44 Anitha [facility] 15:46:00 [facility] Body weight 2022-11-24 92.488 kg University of 09:18:00 [facility] BMI 2022-11-24 38.53 kg/m2 University of 09:18:00 [facility] Body height 2022-11-22 154.9 cm University of 10:57:00 [facility] Systolic blood 2022-11-15 122 mm[Hg] [facility] of pressure 19:15:00 [facility] Diastolic blood 2022-11-15 83 mm[Hg] University o f pressure 19:15:00 [facility] Heart rate 2022-11-15 86 /min [facility] of 19:15:00 [facility] Respiratory rate 2022-11-15 18 /min [facility] of 19:15:00 [facility] Body weight 2022-11-15 99.973 kg University of 19:15:00 [facility] BMI 2022-11-15 41.64 kg/m2 University of 19:15:00 [facility] Oxygen saturation in 2022-11-15 97 /min Univers [facility]y of Arterial blood by 19:15:00 [facility] Pulse oximetry Branch Systolic blood 2022-11-11 108 mm[Hg] [facility] of pressure 19:03:00 [facility] Diastolic blood 2022-11-11 72 mm[Hg] University o f pressure 19:03:00 [facility] Heart rate 2022-11-11 83 /min University of 19:03:00 [facility] Body temperature 2022-11-11 36.44 Anitha [facility] 19:03:00 [facility] Respiratory rate 2022-11-11 18 /min University of 19:03:00 [facility] Body height 2022-11-11 154.9 cm University of 19:03:00 [facility] Body weight 2022-11-11 99.338 kg University of 19:03:00 [facility] BMI 2022-11-11 41.38 kg/m2 University of 19:03:00 [facility] Oxygen saturation in 2022-11-11 96 /min [facility] of Arterial blood by 19:03:00 [facility] Pulse oximetry Branch Systolic blood 2022-11-05 115 mm[Hg] [facility] of pressure 19:36:00 [facility] Diastolic blood 2022-11-05 75 mm[Hg] University o f pressure 19:36:00 [facility] Heart rate 2022-11-05 85 /min [facility] of 19:36:00 [facility] Body temperature 2022-11-05 36.72 Anitha [facility] 19:36:00 [facility] Respiratory rate 2022-11-05 20 /min [facility] of 19:36:00 [facility] Body height 2022-11-05 154.9 cm University of 19:36:00 [facility] Body weight 2022-11-05 96.435 kg [facility] of 19:36:00 [facility] BMI 2022-11-05 40.17 kg/m2 [facility] of 19:36:00 [facility] Oxygen saturation in 2022-11-05 96 /min [facility] of Arterial blood by 19:36:00 [facility] Pulse oximetry Branch Systolic blood 2022-11-01 109 mm[Hg] [facility] of pressure 15:07:00 [facility] Diastolic blood 2022-11-01 74 mm[Hg] University o f pressure 15:07:00 [facility] Heart rate 2022-11-01 76 /min [facility] of 15:07:00 [facility] Body temperature 2022-11-01 36.67 Anitha [facility] 15:07:00 [facility] Body height 2022-11-01 154.9 cm University of 15:07:00 [facility] Body weight 2022-11-01 97.07 kg University of 15:07:00 [facility] BMI 2022-11-01 40.43 kg/m2 [facility] of 15:07:00 [facility] Oxygen saturation in 2022-11-01 96 /min [facility]y of Arterial blood by 15:07:00 [facility] Pulse oximetry Branch Systolic blood 2022-10-16 107 mm[Hg] [facility] of pressure 09:00:00 [facility] Diastolic blood 2022-10-16 86 mm[Hg] University o f pressure 09:00:00 [facility] Heart rate 2022-10-16 105 /min [facility] 09:00:00 [facility] Respiratory rate 2022-10-16 17 /min [facility] of 09:00:00 [facility] Oxygen saturation in 2022-10-16 96 /min [facility] of Arterial blood by 09:00:00 [facility] Pulse oximetry Branch Body temperature 2022-10-16 36.78 Anitha [facility] 08:26:00 [facility] Body weight 2022-10-16 97.523 kg University of 08:26:00 [facility] BMI 2022-10-16 40.62 kg/m2 University of 08:26:00 [facility] Systolic blood 2022-10-14 124 mm[Hg] [facility] pressure 22:21:00 [facility] Diastolic blood 2022-10-14 85 mm[Hg] [facility] ge of pressure 22:21:00 [facility] Heart rate 2022-10-14 99 /min [facility] 22:21:00 [facility] Body temperature 2022-10-14 36.5 Anitha [facility]ri [facility]ge of 22:21:00 [facility] Respiratory rate 2022-10-14 16 /min [facility] of 22:21:00 [facility] Body height 2022-10-14 154.9 cm [facility] 22:21:00 [facility] Body weight 2022-10-14 94.802 kg [facility] 22:21:00 [facility] BMI 2022-10-14 39.49 kg/m2 [facility] 22:21:00 [facility] Systolic blood 2022-10-11 120 mm[Hg] [facility] pressure 20:15:00 [facility] Diastolic blood 2022-10-11 71 mm[Hg] [facility] o [facility] pressure 20:15:00 [facility] Heart rate 2022-10-11 88 /min [facility] 20:15:00 [facility] Body temperature 2022-10-11 36.33 Anitha [facility] 20:15:00 [facility] Body height 2022-10-11 154.9 cm [facility] of 20:15:00 [facility] Body weight 2022-10-11 95.709 kg University of 20:15:00 [facility] BMI 2022-10-11 39.87 kg/m2 [facility] of 20:15:00 [facility] Oxygen saturation in 2022-10-11 96 /min [facility] of Arterial blood by 20:15:00 [facility] Pulse oximetry Branch Systolic blood 2022-10-01 122 mm[Hg] [facility] pressure 21:09:00 [facility] Diastolic blood 2022-10-01 82 mm[Hg] [facility] o f pressure 21:09:00 [facility] Heart rate 2022-10-01 82 /min [facility] 21:09:00 [facility] Body temperature 2022-10-01 37.17 Anitha [facility] 21:09:00 [facility] Respiratory rate 2022-10-01 18 /min [facility] 21:09:00 [facility] Body height 2022-10-01 156.2 cm [facility] 21:09:00 [facility] Body weight 2022-10-01 97.705 kg [facility] of 21:09:00 [facility] BMI 2022-10-01 40.04 kg/m2 [facility] 21:09:00 [facility] Oxygen saturation in 2022-10-01 96 /min [facility] of Arterial blood by 21:09:00 [facility] Pulse oximetry Branch Systolic blood 2022-09-26 127 mm[Hg] [facility] pressure 12:00:00 [facility] Diastolic blood 2022-09-26 79 mm[Hg] [facility] o f pressure 12:00:00 [facility] Heart rate 2022-09-26 81 /min [facility] 12:00:00 [facility] Body temperature 2022-09-26 36.5 Anitha [facility] 12:00:00 [facility] Respiratory rate 2022-09-26 18 /min [facility] 12:00:00 [facility] Oxygen saturation in 2022-09-26 98 /min [facility] of Arterial blood by 12:00:00 [facility] Pulse oximetry Branch Body height 2022-09-26 154.9 cm [facility] 10:55:00 [facility] Body weight 2022-09-26 94.802 kg University of 10:55:00 [facility] BMI 2022-09-26 39.49 kg/m2 [facility] of 10:55:00 [facility] Systolic blood 2022-09-09 131 mm[Hg] [facility] pressure 17:30:00 [facility] Diastolic blood 2022-09-09 98 mm[Hg] University o f pressure 17:30:00 [facility] Heart rate 2022-09-09 66 /min [facility] of 17:30:00 [facility] Respiratory rate 2022-09-09 14 /min [facility] of 17:30:00 [facility] Oxygen saturation in 2022-09-09 98 /min [facility] of Arterial blood by 17:30:00 [facility] Pulse oximetry Branch Body temperature 2022-09-09 37.39 Anitha [facility] 16:26:00 [facility] Body height 2022-09-09 157.5 cm University of 12:51:00 [facility] Body weight 2022-09-09 94.802 kg University of 12:51:00 [facility] BMI 2022-09-09 38.23 kg/m2 University of 12:51:00 [facility] Systolic blood 2022-08-29 123 mm[Hg] [facility] pressure 16:52:00 [facility] Diastolic blood 2022-08-29 84 mm[Hg] University o f pressure 16:52:00 [facility] Heart rate 2022-08-29 74 /min [facility] 16:51:00 [facility] Body temperature 2022-08-29 37.28 Anitha [facility] 16:51:00 [facility] Body height 2022-08-29 158.8 cm [facility] 16:51:00 [facility] Body weight 2022-08-29 93.441 kg University of 16:51:00 [facility] BMI 2022-08-29 37.08 kg/m2 [facility] of 16:51:00 [facility] Oxygen saturation in 2022-08-29 96 /min [facility] of Arterial blood by 16:51:00 [facility] Pulse oximetry Branch Systolic blood 2022-08-21 119 mm[Hg] [facility] pressure 21:46:00 [facility] Diastolic blood 2022-08-21 82 mm[Hg] [facility] o [facility] pressure 21:46:00 [facility] Heart rate 2022-08-21 88 /min [facility] of 21:46:00 [facility] Body height 2022-08-21 158.8 cm University of 21:46:00 [facility] Body weight 2022-08-21 99.02 kg University of 21:46:00 [facility] BMI 2022-08-21 39.29 kg/m2 University of 21:46:00 [facility] Oxygen saturation in 2022-08-21 97 /min [facility] of Arterial blood by 21:46:00 [facility] Pulse oximetry Branch Systolic blood 2022-08-21 145 mm[Hg] [facility] pressure 03:00:00 [facility] Diastolic blood 2022-08-21 99 mm[Hg] [facility] o f pressure 03:00:00 [facility] Heart rate 2022-08-21 101 /min [facility] of 03:00:00 [facility] Respiratory rate 2022-08-21 18 /min [facility] 03:00:00 [facility] Oxygen saturation in 2022-08-21 98 /min Univers [facility]y of Arterial blood by 03:00:00 [facility] Pulse oximetry Branch Body temperature 2022-08-20 37.28 Anitha [facility] 23:54:00 [facility] Body weight 2022-08-20 96.163 kg University of 23:54:00 [facility] BMI 2022-08-20 40.06 kg/m2 University of 23:54:00 [facility] Systolic blood 2022-08-19 120 mm[Hg] [facility] pressure 15:59:00 [facility] Diastolic blood 2022-08-19 82 mm[Hg] [facility] o [facility] pressure 15:59:00 [facility] Heart rate 2022-08-19 91 /min [facility] 15:59:00 [facility] Body temperature 2022-08-19 36.89 Anitha [facility] 15:59:00 [facility] Respiratory rate 2022-08-19 16 /min [facility] 15:59:00 [facility] Body height 2022-08-19 154.9 cm [facility] 15:59:00 [facility] Body weight 2022-08-19 96.48 kg University of 15:59:00 [facility] BMI 2022-08-19 40.19 kg/m2 [facility] 15:59:00 [facility] Oxygen saturation in 2022-08-19 95 /min Univers [facility]y of Arterial blood by 15:59:00 [facility] Pulse oximetry Branch Systolic blood 2022-08-06 138 mm[Hg] [facility] pressure 17:11:00 [facility] Diastolic blood 2022-08-06 86 mm[Hg] [facility] pressure 17:11:00 [facility] Heart rate 2022-08-06 93 /min [facility] 17:10:00 [facility] Body temperature 2022-08-06 36.83 Anitha [facility] 17:10:00 [facility] Respiratory rate 2022-08-06 17 /min [facility] 17:10:00 [facility] Body height 2022-08-06 154.9 cm [facility] 17:10:00 [facility] Body weight 2022-08-06 94.983 kg University of 17:10:00 [facility] BMI 2022-08-06 39.57 kg/m2 [facility] 17:10:00 [facility] Oxygen saturation in 2022-08-06 96 /min Univers [facility]y of Arterial blood by 17:10:00 [facility] Pulse oxim[facility] HEIGHT 2022-07-10 154.9 cm 15:31:00 WEIGHT 2022-07-10 93.486 kg 15:31:00 HEIGHT 2022-07-09 154.9 cm 19:17:00 WEIGHT 2022-07-09 104.327 kg 19:17:00 HEIGHT 2022-07-10 154.9 cm 15:31:00 WEIGHT 2022-07-10 93.486 kg 15:31:00 HEIGHT 2022-07-09 154.9 cm 19:17:00 WEIGHT 2022-07-09 104.327 kg 19:17:00 Weight 2022-06-11 94.8 KG 17:18:00 Systolic blood 2022-06-08 109 mm[Hg] [facility] pressure 14:22:00 [facility] Diastolic blood 2022-06-08 77 mm[Hg] [facility] pressure 14:22:00 [facility] Heart rate 2022-06-08 86 /min [facility] of 14:22:00 [facility] Body temperature 2022-06-08 37.11 Anitha [facility] 14:22:00 [facility] Respiratory rate 2022-06-08 18 /min [facility] 14:22:00 [facility] Body height 2022-06-08 154.9 cm University of 14:22:00 [facility] Body weight 2022-06-08 94.711 kg University of 14:22:00 [facility] BMI 2022-06-08 39.45 kg/m2 University of 14:22:00 [facility] Oxygen saturation in 2022-06-08 97 /min Univers [facility]y of Arterial blood by 14:22:00 [facility] Pulse oximetry Branch Systolic blood 2022-05-29 147 mm[Hg] [facility] pressure 14:00:00 [facility] Diastolic blood 2022-05-29 96 mm[Hg] [facility] o f pressure 14:00:00 [facility] Heart rate 2022-05-29 62 /min [facility] 14:00:00 [facility] Respiratory rate 2022-05-29 18 /min [facility] 14:00:00 [facility] Oxygen saturation in 2022-05-29 99 /min Univers [facility]y of Arterial blood by 14:00:00 [facility] Pulse o[facility] Body temperature 2022-05-29 37.33 Anitha [facility] 11:13:00 [facility] Body height 2022-05-29 154.9 cm University of 11:13:00 [facility] Body weight 2022-05-29 96.163 kg University of 11:13:00 [facility] BMI 2022-05-29 40.06 kg/m2 University of 11:13:00 [facility] Systolic blood 2022-05-22 112 mm[Hg] [facility] pressure 15:00:00 [facility] Diastolic blood 2022-05-22 71 mm[Hg] University o f pressure 15:00:00 [facility] Heart rate 2022-05-22 59 /min [facility] 15:00:00 [facility] Respiratory rate 2022-05-22 14 /min [facility] 15:00:00 [facility] Oxygen saturation in 2022-05-22 96 /min [facility]y of Arterial blood by 15:00:00 [facility] P[facility] o[facility] Body temperature 2022-05-22 37.17 Anitha [facility] 12:47:00 [facility] Body weight 2022-05-22 96.163 kg University of 12:47:00 [facility] BMI 2022-05-22 40.06 kg/m2 University of 12:47:00 [facility] HEIGHT 2022-04-24 154.9 cm 10:39:00 WEIGHT 2022-04-24 104.327 kg 10:39:00 HEIGHT 2022-04-24 154.9 cm 10:39:00 WEIGHT 2022-04-24 104.327 kg 10:39:00 Systolic blood 2022-04-16 168 mm[Hg] [facility] pressure 18:30:00 [facility] Diastolic blood 2022-04-16 84 mm[Hg] University o f pressure 18:30:00 [facility] Heart rate 2022-04-16 88 /min [facility] of 18:30:00 [facility] Body temperature 2022-04-16 36.89 Anitha University 18:30:00 [facility] Respiratory rate 2022-04-16 24 /min University 18:30:00 [facility] Oxygen saturation in 2022-04-16 98 /min Univers ity of Arterial blood by 18:30:00 [facility] Pulse oximetry [place] Body height 2022-04-16 154.9 cm University 14:36:00 [facility] Body weight 2022-04-16 99.791 kg University 14:36:00 [facility] BMI 2022-04-16 41.57 kg/m2 University 14:36:00 [facility] HEIGHT 2022-03-18 154.9 cm 14:31:00 WEIGHT 2022-03-18 97.7 kg 14:31:00 HEIGHT 2022-03-18 154.9 cm 14:31:00 WEIGHT 2022-03-18 97.7 kg 14:31:00 Height 2022-01-17 154.94 CM 06:43:00 Weight 2022-01-17 99.79 KG 06:43:00 Height 2022-01-13 154.94 CM 13:02:00 Weight 2022-01-13 99.79 KG 13:02:00 Height 2021-12-23 154.94 CM 14:44:00 Weight 2021-12-23 99.79 KG 14:44:00 Weight 2021-12-22 99.79 KG 12:42:00 WEIGHT 2021-08-14 89.132 kg 13:55:00 HEIGHT 2021-06-20 [...] KG 17:10:00 Systolic blood 2020-05-09 132 mm[Hg] [facility] pressure 15:48:00 Medicine Diastolic blood 2020-05-09 80 mm[Hg] [facility] of pressure 15:48:00 Medicine Heart rate 2020-05-09 59 /min Pulse Ox-96% [facility] 15:48:00 Medicine Body temperature 2020-05-09 36.94 Anitha [facility] of 15:48:00 Medicine Respiratory rate 2020-05-09 18 /min [facility] 15:48:00 Medicine Body height 2020-05-09 156.2 cm [facility] 15:48:00 Medicine Body weight 2020-05-09 82.283 kg [facility] 15:48:00 Medicine BMI 2020-05-09 33.72 kg/m2 [facility] 15:48:00 Medicine Systolic blood 2020-05-09 132 mm[Hg] [facility] pressure 15:48:00 Medicine Diastolic blood 2020-05-09 80 mm[Hg] [facility] ge of pressure 15:48:00 Medicine Heart rate 2020-05-09 59 /min Pulse Ox-96% [facility] 15:48:00 Medicine Body temperature 2020-05-09 36.94 Anitha [facility] of 15:48:00 Medicine Respiratory rate 2020-05-09 18 /min [facility] 15:48:00 Medicine Body height 2020-05-09 156.2 cm [facility] 15:48:00 Medicine Body weight 2020-05-09 82.283 kg [facility] 15:48:00 Medicine BMI 2020-05-09 33.72 kg/m2 [facility] 15:48:00 Medicine HEIGHT 2020-04-03 162.6 cm 00:00:00 WEIGHT 2020-04-03 80.287 kg 00:00:00 HEIGHT 2020-04-03 162.6 cm 00:00:00 WEIGHT 2020-04-03 80.287 kg 00:00:00 [facility] 2019-11-24 160.02 CM 16:32:00 Weight 2019-11-24 79.37 KG 16:32:00 HEIGHT 2022-11-21 154.9 cm 14:33:00 WEIGHT 2022-11-21 104.327 kg 14:33:00 Systolic blood 2022-06-13 126 mm[Hg] [facility] pressure 02:29:00 Diastolic blood 2022-06-13 84 mm[Hg] [facility] pressure 02:29:00 Heart rate 2022-06-13 73 /min [facility] 02:29:00 Body temperature 2022-06-13 36.83 Anitha [facility] 02:29:00 Respiratory rate 2022-06-13 17 /min [facility] 02:29:00 Oxygen saturation in 2022-06-13 95 /min [facility] Arterial blood by 02:29:00 Pulse oximetry Body height 2022-06-12 157.5 cm [facility] 19:48:00 Body weight 2022-06-12 95.255 kg [facility] 19:48:00 BMI 2022-06-12 38.41 kg/m2 [facility] 19:48:00 Systolic blood 2022-06-11 122 mm[Hg] [facility] pressure 13:14:00 [facility] Diastolic blood 2022-06-11 86 mm[Hg] [facility] pressure 13:14:00 [facility] Heart rate 2022-06-11 77 /min [facility] 13:14:00 [facility] Body temperature 2022-06-11 37 Anitha [facility] Body weight 2022-06-[address] [facility] 13:14:00 [facility] BMI 2022-06-11 34.25 kg/m2 [facility] 13:14:00 [facility] Respiratory rate 2022-06-02 18 /min [facility] 03:30:00 [facility] Oxygen saturation in 2022-06-02 98 /min [facility] Arterial blood by 03:30:00 [facility]ter Pulse oximetry Body height 2022-06-[address] [facility] 18:22:00 [facility] HEIGHT 2022-03-07 154.9 cm 08:30:00 WEIGHT 2022-03-07 104.327 kg 08:30:00 HEIGHT 2021-12-28 154.9 cm 16:15:00 WEIGHT 2021-12-28 99.791 kg 16:15:00 Systolic blood 2021-08-14 112 mm[Hg] [facility] pressure 13:55:00 [facility] Diastolic blood 2021-08-14 67 mm[Hg] [facility] pressure 13:55:00 [facility] Center Heart rate 2021-08-14 61 /min [facility] 13:55:00 [facility] Body temperature 2021-08-[address] [facility] 13:55:00 [facility] Body weight 2021-08-[address] [facility] 13:55:00 [facility] BMI 2021-08-14 37.13 kg/m2 [facility] 13:55:00 [facility] Respiratory rate 2021-06-20 18 /min [facility] 14:56:00 [facility] Oxygen saturation in 2021-06-20 99 /min [facility] Arterial blood by 14:56:00 [facility] nter Pulse oximetry Body height 2021-06-20 154.9 cm [facility] 11:01:00 [facility] Systolic blood 2021-02-07 128 mm[Hg] [facility] pressure 21:08:00 Diastolic blood 2021-02-07 75 mm[Hg] [facility] pressure 21:08:00 Heart rate 2021-02-07 68 /min [facility] 21:08:00 Respiratory rate 2021-02-07 17 /min [facility] 21:08:00 Oxygen saturation in 2021-02-07 99 /min [facility] Arterial blood by 21:08:00 Pulse oximetry Body temperature 2021-02-07 36.89 Anitha [facility] 16:00:27 Body height 2020-11-30 157.5 cm [facility] 22:00:00 Body weight 2020-11-30 93.078 kg [facility] 22:00:00 BMI 2020-11-30 37.53 kg/m2 [facility] 22:00:00 Body height 2020-04-26 157.48 [...] 86 mm[Hg] [facility] pressure 16:57:00 [facility] Heart rate 2020-04-03 60 /min [facility] 16:57:00 [facility] Body temperature 2020-04-[address] [facility] 16:57:00 [facility] Respiratory rate 2020-04-03 18 /min [facility] 16:57:00 [facility] Oxygen saturation in 2020-04-03 98 /min [facility] Arterial blood by 16:57:00 Medical nter Pulse oximetry Body height 2020-04-[address] [facility] 13:49:00 [facility] Body weight 2020-04-[address] [facility] 13:49:00 Medical Center BMI 2020-04-03 30.38 kg/m2 [facility] 13:49:00 [facility] Body height 2019-08-25 157.48 cm [facility] [...] Date / Time Performing Source Performed Clinician POCT TEST 2023-01-13 Gabrielle [facility] 23:29:00 [facility] URINALYSIS 2023-01-13 Navid [facility] 23:28:00 [facility] ASSIGNMENT OF BENEFITS 2023-01-13 [facility] 23:26:43 Unassigned, No Medical Branch Name CONSENT/REFUSAL FOR DIAGNOSIS AND 2023-01-13 [facility] TREATMENT 22:29:48 Unassigned, No Medical Branch Name POCT URINALYSIS 2022-12-24 Justin [facility] 00:00:00 [facility] MAGNESIUM 2022-11-24 jose [facility] 09:38:00 [facility] BASIC METABOLIC PANEL (NA, K, CL, 2022-11-24 Dirk Lowe uziel [facility] CO2, GLUCOSE, BUN, CREATININE, 09:38:00 [facility]) CBC WITH DIFF 2022-11-24 Mynor [facility] 09:38:00 [facility] CT ABDOMEN PELVIS WO CONTRAST 2022-11-23 Mynor [facility] 16:30:10 [facility] BASIC METABOLIC PANEL (NA, K, CL, [facility]SE, BUN, CREATININE, 08:56:00 M [facility]) CBC WITH DIFF 2022-11-23 Lauren [facility] 08:56:00 [facility] GLYCOSYLATED HEMOGLOBIN (A1C) 2022-11-23 Augustin Lowe [facility] 08:56:00 Medical Branch PROCALCITONIN 2022-11-23 [facility] 08:56:00 Medical Branch SPUTUM CULTURE 2022-11-22 Dorene Tang [facility] 13:53:00 [facility] RAPID INFLUENZA A/B 2022-11-22 [facility] [place] 13:47:00 Medical Branch RESPIRATORY PANEL BY PCR 2022-11-22 [facility] 13:47:00 [facility] CT CHEST PULMONARY ANGIOGRAM 2022-11-22 [facility] 08:59:00 [facility] HB ECG ROUTINE & RHYTHM STRIP 2022-11-22 Dorene Tang [facility] 06:48:40 [facility] BLOOD CULTURE SCREEN 2022-11-22 Dorene Tang [facility] 06:35:00 [facility] TROPONIN I 2022-11-22 Dorene Tang [facility] 06:35:00 [facility] COMP. METABOLIC PANEL ([id number]) 2022-11-22 Dorene Tang [facility] 06:35:00 Medical [place] CBC WITH DIFF 2022-11-22 Dorene Tang [facility] 06:35:00 [facility] D-DIMER 2022-11-22 Dorene Tang [facility] 06:35:00 [facility] N-TERMINAL PRO-BNP 2022-11-22 Dorene Tang [facility] 06:35:00 [facility] COVID-19 (ID NOW RAPID TESTING) 2022-11-22 Dorene Tang [facility] 06:35:00 Medical [place] LAB ONLY COVID INTERPRETATION 2022-11-22 Dorene Tang [facility] 06:35:00 Medical Branch INSURANCE CORRESPONDENCE 2022-09-11 Doctor [facility] 06:01:00 Unassigned, No Medical Branch Name LIPASE 2022-09-09 Shaheen Pricilla [facility] 13:37:00 J Medical Branch MAGNESIUM 2022-09-09 Shaheen, [facility] 13:37:[address] [facility] TEST, SERUM 2022-09-09 Pricilla Jamison [facility] 13:37:[address] [facility] COMP. METABOLIC PANEL ([id number]) 2022-09-09 Pricilla Jamison [facility] 13:37:00 J [facility] CBC WITH DIFF 2022-09-09 Shaheen [facility] exas 13:37:00 J [facility] URINALYSIS 2022-09-09 [facility] 13:37:[address] [facility] PATIENT QUESTIONNAIRE 2022-09-04 [facility] 06:01:00 Unassigned, No Medical Branch Name POCT URINALYSIS 2022-08-29 [facility] xa 17:00:00 Medical Branch POCT TEST 2022-08-21 Yonis Rivera [facility] 01:21:00 Medical Branch LIPASE 2022-08-21 Yonis Rivera [facility] 01:13:00 Medical Branch COMP. METABOLIC PANEL ([id number]) 2022-08-21 Yonis Rivera [facility] 01:13:00 Medical [place] CBC WITH DIFF 2022-08-21 Yonis Rivera [facility] 01:13:00 [facility] URINALYSIS 2022-08-21 Yonis Rivera [facility] 01:13:00 [facility] N-TERMINAL PRO-BNP 2022-08-21 Yonis Rivera [facility] 01:13:00 [facility] CT ABDOMEN PELVIS WO CONTRAST 2022-08-21 Yonis Rivera [facility] 00:33:49 [facility] CONSENT/REFUSAL FOR DIAGNOSIS AND 2022-08-20 Doctor [facility] TREATMENT 23:46:14 Unassigned, No Medical Branch Name EXTERNAL PROVIDER RECORDS 2022-06-13 Doctor [facility] 05:01:00 Unassigned, No Medical Branch Name CT ABDOMEN PELVIS W CONTRAST 2022-06-13 Kelvin Calderón [facility] 00:16:39 T. HCG QUALITATIVE, SERUM SCREEN 2022-06-12 Kelvin Calderón [facility] 23:33:00 T. HC COMPLETE BLD COUNT W/AUTO DIFF 2022-06-12 [facility] 21:34:00 T. COMPREHENSIVE METABOLIC PANEL 2022-06-12 [facility] 21:34:00 T. MAGNESIUM LEVEL 2022-06-12 [facility] 21:34:00 T. LACTIC ACID LEVEL, SEPSIS - NOW 2022-06-12 [facility] AND REPEAT 2X EVERY 3 HOURS 21:34:00 T. ESTIMATED GFR 2022-06-12 [facility] 21:34:00 T. LIPASE LEVEL 2022-06-12 [facility] 21:22:00 T. URINALYSIS SCREEN AND MICROSCOPY, 2022-06-12 [facility] WITH REFLEX TO CULTURE 21:22:00 T. URINE CULTURE 2022-06-12 [facility] 21:15:00 T. NM RENAL SCAN WITH DIURETIC 2022-06-07 Jon[address] Watts [facility] 12:24:00 [facility] US RENAL COMPLETE 2022-06-01 Julio César, [facility] 23:16:00 [facility] SCREEN, URINE 2022-06-01 Julio César, [facility] 19:43:00 [facility] RAPID DRUG SCREEN, URINE 2022-06-01 Julio César, [facility] 19:43:00 [facility] BASIC METABOLIC PANEL 2022-06-01 Julio César, [facility] 19:38:00 [facility] URINE CULTURE 2022-06-01 Julio César, [facility] 18:45:00 [facility] URINALYSIS W/ MICROSCOPIC 2022-06-01 Julio César [facility] 18:45:00 [facility] UA/M W/RFLX CULTURE, ROUT 2022-05-[address] [facility] 11:52:00 [facility] MICROSCOPIC EXAMINATION 2022-05-[address] [facility] 11:52:00 [facility] URINE CULTURE, ROUTINE 2022-05-[address] [facility] 11:52:00 [facility] CT ABDOMEN PELVIS WO CONTRAST 2022-05-29 Daya Loera [facility] 12:39:[address] LUMBAR SPINE WO CONTRAST 2022-05-29 Daya Loera [facility] 12:39:45 Medical Branch URINALYSIS 2022-05-29 Sav Amil[facility] [place] xa 11:59:00 [facility] POCT TEST 2022-05-29 Sav [facility] 11:59:00 Medical Branch LIPASE 2022-05-29 [facility] 11:44[facility]00 [facility] COMP. METABOLIC PANEL ([id number]) 2022-05-29 Sav Am[facility] 11:44:00 Medical Branch CBC WITH DIFF 2022-05-29 [facility] xa 11:44:00 [facility] POCT TEST 2022-05-22 Carlito Carmen [facility] 13:25:00 Medical Branch LIPASE 2022-05-22 Carlito Carmen [facility] ex 13:22:00 Medical Branch COMP. METABOLIC PANEL ([id number]) 2022-05-22 Carlito Carmen [facility] 13:22:00 Medical Branch CBC WITH DIFF 2022-05-22 Carlito Carmen [facility] ex 13:22:00 [facility] URINALYSIS 2022-05-22 Carlito Carmen [facility] 13:22:00 [facility] US RENAL COMPLETE 2022-05-[address] [facility] 16:20:00 [facility] US RENAL COMPLETE 2022-05-[address] [facility] 20:30:00 [facility] PERMANENT LAB REPORT - SCAN 2022-05-16 Provider, Default [facility] 00:00:00 Scanning [facility] URINE CULTURE 2022-05-[address] [facility] 16:24:00 [facility] CBC W/PLT COUNT & AUTO 2022-04-[address] [facility] [facility] DIFFERENTIAL 03:32:00 [facility] BASIC METABOLIC PANEL 2022-04-[address] [facility] 03:32:00 [facility] MAGNESIUM 2022-04-29 Banjo, Atinuke [facility] 03:32:00 [facility] [place] PHOSPHORUS 2022-04-29 Banjo, Atinuke [facility] 03:32:00 [facility] CBC W/PLT COUNT & AUTO 2022-04-29 Banjo, Atinuke [facility] DIFFERENTIAL 03:32:00 [facility] URINE CULTURE 2022-04-[address] [facility] 04:38:00 [facility] URINALYSIS W/ MICROSCOPIC 2022-04-28 Mac, [facility]nathan [facility] 04:38:00 [facility] CBC W/PLT COUNT & AUTO 2022-04-28 Banjo, Atinuke [facility] DIFFERENTIAL 04:33:00 [facility] BASIC METABOLIC PANEL 2022-04-28 Banjo, Atinuke [facility] 04:33:00 [facility] MAGNESIUM 2022-04-28 Banjo, Atinuke [facility] 04:33:00 [facility] PHOSPHORUS 2022-04-28 Banjo, Atinuke [facility] 04:33:00 [facility] CBC W/PLT COUNT & AUTO 2022-04-28 Banjo, Atinuke [facility] DIFFERENTIAL 04:33:[address] [facility] [address] ABDOMEN/PELVIS WITHOUT IV 2022-04-[address] [facility] CONTRAST 18:43:00 [facility] US PELVIS 2022-04-27 Banjo, Atinuke [facility] 14:39:00 [facility] US ABDOMEN COMPLETE 2022-04-27 Banjo, Atinuke [facility] 14:39:00 [facility] XR ABDOMEN/KUB 1 VIEW PORTABLE 2022-04-27 Banjo, Atinuke [facility] 09:20:00 [facility] CBC W/PLT COUNT & AUTO 2022-04-27 Banjo, [facility]inuke [facility] DIFFERENTIAL 05:41:00 [facility] BASIC METABOLIC PANEL 2022-04-27 Banjo, [facility]inuke [facility] 05:41:00 [facility] [place] MAGNESIUM 2022-04-27 Banjo, Atinuke [facility] 05:41:00 [facility] PHOSPHORUS 2022-04-27 Banjo, Atinuke [facility] 05:41:00 [facility] Center CBC W/PLT COUNT & AUTO 2022-04-27 Banjo, [facility]inuke [facility] DIFFERENTIAL 05:41:00 [facility] CBC W/PLT COUNT & AUTO 2022-04-26 Banjo, [facility]inuke [facility] DIFFERENTIAL 05:13:00 [facility] BASIC METABOLIC PANEL 2022-04-26 Banjo, Atinuke [facility] 05:13:00 [facility] MAGNESIUM 2022-04-26 Banjo, Atinuke [facility] 05:13:00 [facility] PHOSPHORUS 2022-04-26 Banjo, Atinuke [facility] 05:13:00 [facility] CBC W/PLT COUNT & AUTO 2022-04-26 Banjo, Atinuke [facility] DIFFERENTIAL 05:13:00 [facility] URINALYSIS W/ REFLEX URINE 2022-04-25 Banjo, Kunal [facility] CULTURE 13:51:00 [facility] CBC W/PLT COUNT & AUTO 2022-04-25 Banjo, [facility]inuke [facility] DIFFERENTIAL 04:02:00 [facility] BASIC METABOLIC PANEL 2022-04-25 Banjo, Atinuke [facility] 04:02:00 [facility] MAGNESIUM 2022-04-25 Banjo, Atinuke [facility] 04:02:00 [facility] PHOSPHORUS 2022-04-25 Banjo, Atinuke [facility] 04:02:00 [facility] CBC W/PLT COUNT & AUTO 2022-04-25 Banjo, Atindalia [facility] DIFFERENTIAL 04:02:00 [facility] [place] FLUORO NON-SPECIFIC UP TO 1 2022-04-[address] [facility] HOUR 12:47:00 [facility] CYSTOSCOPY, WITH RETROGRADE 2022-04-[address] [facility] PYELOGRAM 11:48:00 [facility] SCREEN, URINE 2022-04-24 Juan Carlos Logan [facility] 10:13:00 [facility] COVID ANTIGEN 2022-04-[address] [facility] 09:25:00 [facility] PROTHROMBIN TIME/INR 2022-04-22 Mac, Jonnathan [facility] 09:25:00 [facility] TYPE AND SCREEN, AUTOMATED 2022-04-[address] [facility] 09:25:[address] [facility] CT ABDOMEN PELVIS W CONTRAST 2022-04-[address] [facility] 16:29:38 [facility] LIPASE 2022-04-16 [facility] xa 15:52:00 [facility] HEPATIC FUNCTION PANEL ([id number]) 2022-04-16 Brittani Garcia [facility] (ALB,T.PRO,BILI 15:52:00 [facility] T,BU/BC,ALT,AST,ALK PHOS) BASIC METABOLIC PANEL (NA, K, CL, 2022-04-16 [facility] CO2, GLUCOSE, BUN, CREATININE, 15:52:00 M edical [place]) CBC WITH DIFF 2022-04-16 [facility] xa 15:52:00 [facility] LACTIC ACID WHOLE BLOOD 2022-04-16 [facility] 15:[facility]00 [facility] COVID-19 (ID NOW RAPID TESTING) 2022-04-16 [facility] 15:52:00 [facility] POCT TEST 2022-04-16 [facility] 15:23:00 [facility] URINALYSIS 2022-04-16 [facility] xa 15:22:00 [facility] CONSENT/REFUSAL FOR DIAGNOSIS AND 2022-04-16 [facility] TREATMENT 14:33:27 Unassigned, No [facility] Name CLOSTRIDIUM DIFFICILE TOXIN 2022-04-05 [facility] 15:56:00 [facility] POCT URINALYSIS DIPSTICK 2022-04-04 [facility] 15:10:00 [facility] URINE CULTURE 2022-04-[address] [facility] 15:08:00 [facility] CYSTOSCOPY, WITH RETROGRADE 2022-03-[address] [facility] PYELOGRAM 20:29:00 [facility] US RENAL COMPLETE 2022-03-[address] [facility] 17:25:00 [facility] CBC W/PLT COUNT & AUTO 2022-03-[address] [facility] DIFFERENTIAL 06:04:00 [facility] CBC W/PLT COUNT & AUTO 2022-03-[address] [facility] DIFFERENTIAL 06:04:00 [facility] BASIC METABOLIC PANEL 2022-03-20 Futalan, [place] [facility] 03:46:00 Pis An [facility] MAGNESIUM 2022-03-20 Futalan, [place] [facility] 03:46:00 Pis [facility] PHOSPHORUS 2022-03-20 Futalan, [place] [facility] 03:46:00 Pis [facility] URINE CULTURE 2022-03-19 Mac, Jonnathan [facility] 19:20:00 [facility] US RENAL COMPLETE 2022-03-[address] [facility] 09:35:00 [facility] BASIC METABOLIC PANEL 2022-03-19 Futalan, [place] [facility] 03:47:00 P[facility] MAGNESIUM 2022-03-19 Futalan, [place] [facility] 03:47:00 [facility] PHOSPHORUS 2022-03-19 Futalan, [place] [facility] 03:47:00 [facility] CBC W/PLT COUNT & AUTO 2022-03-[address] [facility] DIFFERENTIAL 03:47:00 [facility] CBC W/PLT COUNT & AUTO 2022-03-[address] [facility] DIFFERENTIAL 03:47:00 [facility] COVID ANTIGEN 2022-03-18 Juan Carlos Chamorro [facility] 16:31:00 [facility] CT ABDOMEN/PELVIS WITHOUT IV 2022-03-18 Juan Carlos Chamorro [facility] CONTRAST 15:25:00 [facility] URINALYSIS W/ REFLEX URINE 2022-03-18 Juan [facility] CULTURE 15:01:00 [facility] SCREEN, URINE 2022-03-[address] [facility] 15:01:00 [facility] CBC W/PLT COUNT & AUTO 2022-03-[address] [facility] DIFFERENTIAL 15:00:00 [facility] COMPREHENSIVE METABOLIC PANEL 2022-03-18 Juan Carlos [facility]orro [facility] 15:00:00 [facility] CBC W/PLT COUNT & AUTO 2022-03-[address] [facility] DIFFERENTIAL 15:00:00 [facility] [place] FLUORO NON-SPECIFIC UP TO 1 2022-03-14 Mac, Jonnathan [facility] HOUR 09:12:00 [facility] CYSTOURETEROSCOPY, WITH LASER 2022-03-14 Mac, Jonnathan [facility] LITHOTRIPSY 07:43:00 [facility] SCREEN, URINE 2022-03-14 Logan, Juan Carlos [facility] 05:48:00 [facility] COVID ANTIGEN 2022-03-11 Mac, Jonnathan [facility] 10:54:00 [facility] BASIC METABOLIC PANEL 2022-03-11 Mac, Jonnathan [facility] 10:54:00 [facility] CBC W/PLT COUNT & AUTO 2022-03-11 Mac, Jonnathan [facility] DIFFERENTIAL 10:54:00 [facility] PROTHROMBIN TIME/INR 2022-03-11 Mac, Jonnathan [facility] 10:54:00 [facility] TYPE AND SCREEN, AUTOMATED 2022-03-11 Mac, Jonnathan [facility] 10:54:00 [facility] CBC W/PLT COUNT & AUTO 2022-03-11 Mac, [facility]athan [facility] DIFFERENTIAL 10:54:00 [facility] URINE CULTURE 2022-03-04 Mac, Jonnathan [facility] 12:38:[address] [facility] CT ABDOMEN/PELVIS WITHOUT IV 2022-01-10 Penaflor, Kayode [facility] CONTRAST 18:25:00 [facility] CBC W/PLT COUNT & AUTO 2022-01-10 [facility]ode [facility] DIFFERENTIAL 16:20:00 [facility] COMPREHENSIVE METABOLIC PANEL 2022-01-10 [facility]ode [facility] 16:20:00 [facility] LIPASE 2022-01-10 Penaflor, Kayode [facility] 16:20:00 [facility] URINALYSIS W/ REFLEX URINE 2022-01-10 [facility] CULTURE 16:20:00 [facility] SCREEN, URINE 2022-01-[address] [facility] 16:20:00 [facility] CBC W/PLT COUNT & AUTO 2022-01-[facility] DIFFERENTIAL 16:20:00 [facility] [place] FLUORO NON-SPECIFIC UP TO 1 2022-01-04 Mac, Jonnathan [facility] HOUR 14:30:00 [facility] CYSTOURETEROSCOPY, WITH 2022-01-04 [facility] LITHOTRIPSY, CALCULUS REMOVAL, 13:20:00 [facility] AND URETERAL STENT INSERTION SCREEN, URINE 2022-01-04 Logan, Juan Carlos [facility] 11:53:00 [facility] SARS-COV2/RT-PCR ([facility] & REF 2022-01-01 Jonnathan Wattskes LABS) 09:41:00 [facility] BASIC METABOLIC PANEL 2022-01-[address] [facility] 09:41:00 [facility] CBC W/PLT COUNT & AUTO 2022-01-[address] [facility] DIFFERENTIAL 09:41:00 [facility] PROTHROMBIN TIME/INR 2022-01-01 Mac, Jonnathan [facility] 09:41:00 [facility] TYPE AND SCREEN, AUTOMATED 2022-01-[address] [facility] 09:41:00 [facility] CBC W/PLT COUNT & AUTO 2022-01-[address] [facility] DIFFERENTIAL 09:41:00 [facility] UA/M W/RFLX CULTURE, ROUT 2021-12-[address] [facility] 16:25:00 [facility] MICROSCOPIC EXAMINATION 2021-12-[address] [facility] 16:25:00 [facility] URINE CULTURE, ROUTINE 2021-12-[address] [facility] 16:25:00 [facility] POCT URINALYSIS DIPSTICK 2021-12-25 Jonnathan Watts [facility] 08:57:00 [facility] URINE CULTURE 2021-08-[address] [facility] 12:19:00 [facility] XR ABDOMEN/KUB 1 VIEW PORTABLE 2021-08-[address] [facility] 10:42:00 [facility] US RENAL COMPLETE 2021-06-[facility] Kayode [facility] 13:30:00 [facility] COMPREHENSIVE METABOLIC PANEL 2021-06-20 [facility] Kayode [facility] 11:18:00 [facility] LIPASE 2021-06-20 [facility] Kayode [facility] 11:18:00 [facility] SCREEN, URINE 2021-06-20 [facility] 11:18:00 [facility] RAPID DRUG SCREEN, URINE 2021-06-20 [facility], Akyode [facility] 11:18:00 [facility] URINALYSIS W/ REFLEX URINE 2021-06-20 [facility] CULTURE 11:18:00 [facility] CBC W/PLT COUNT & AUTO 2021-06-20 [facility], Kayode [facility] DIFFERENTIAL 11:18:00 [facility] CBC W/PLT COUNT & AUTO 2021-06-20 [facility], [facility] DIFFERENTIAL 11:18:00 [facility] ECG 12-LEAD 2021-02-07 [facility] ABDOMEN PELVIS W CONTRAST 2021-02-07 Keiko Wright [facility] 20:11:39 URINE CULTURE 2021-02-07 [facility]00 URINALYSIS SCREEN AND MICROSCOPY, 2021-02-07 [facility] WITH REFLEX TO CULTURE 19:36:00 COMPREHENSIVE METABOLIC PANEL 2021-02-07 [facility] 17:28:00 LIPASE LEVEL 2021-02-07 [facility] 17:28[facility]00 HC COMPLETE BLD COUNT W/AUTO DIFF 2021-02-07 [facility] 17:28:00 TROPONIN 2021-02-07 [facility] 17:28:00 HCG QUALITATIVE, SERUM SCREEN 2021-02-07 Keiko Wright [facility] 17:28:00 ALCOHOL LEVEL, BLOOD 2021-02-07 [facility] 17:28:00 ESTIMATED GFR 2021-02-07 Keiko Wright [facility] 17:28:00 ECG ED PRELIMINARY INTERPRETATION 2021-02-07 [facility] 17:06:30 ESOPHAGOGASTRODUODENOSCOPY (EGD) 2020-12-03 [facility] 15:19:00 Surjit Shea SURGICAL PATHOLOGY REQUEST 2020-12-03 [facility] 13:25:00 C. HC COMPLETE BLD COUNT W/AUTO DIFF 2020-12-03 [facility] 10:07:00 C. BASIC METABOLIC PANEL 2020-12-03 [facility] 10:07:00 C. ESTIMATED GFR 2020-12-03 [facility] 10:07:00 C. HC COMPLETE BLD COUNT W/AUTO DIFF 2020-12-01 [facility] 09:10:00 Latrondria Cecilia BASIC METABOLIC PANEL 2020-12-01 [facility] 09:10:00 Latrondria Cecilia MAGNESIUM LEVEL 2020-12-01 [facility] 09:10:00 Latrondria Cecilia PHOSPHORUS L[facility]EL 2020[facility] Latrondria Cecilia ESTIMATED GFR 2020-12-01 [facility] 09:10:[address] ABDOMEN PELVIS W CONTRAST 2020-11-30 [facility] 22:32:29 Latrondria Cecilia PARTIAL THROMBOPLASTIN TIME (PTT) 2020-11-30 [facility] 20:05:00 Donny Jeter PROTHROMBIN TIME WITH INR 2020-11-30 [facility] 20:05:00 Sangeeth Corona XR CHEST 1 VW PORTABLE 2020-11-30 [facility] 19:59:32 Sangeeth Joywin XR ABDOMEN 1 VW 2020[facility] 19:58[facility]49 Sangeeth Joywin ECG ED PRELIMINARY INTERPRETATION 2020-11-30 [facility] 19:36:37 Sangeeth Joywin B NATRIURETIC PEPTIDE 2020-11-30 [facility] 19:33:00 Sangeeth Joywin HC COMPLETE BLD COUNT W/AUTO DIFF 2020-11-30 [facility] 19:32:00 Sangeeth Joywin COMPREHENSIVE METABOLIC PANEL 2020-11-30 [facility] 19:32:00 Sangeeth Joywin MAGNESIUM LEVEL 2020-11-30 [facility] al 19:32:00 Sangeeth Joywin TROPONIN 2020-11-30 [facility] 19:32:00 Surjit Shea LIPASE LEVEL 2020-11-30 [facility] 19:32:00 Sangeeth Joywin HCG QUALITATIVE, SERUM SCREEN 2020-11-30 [facility] 19:32:00 Sangeeth Joywin ESTIMATED GFR 2020-11-30 [facility] al 19:32:00 Sangeeth Joywin ECG 12-LEAD 2020-11-30 [facility] 19:19:19 Sangeeth Joywin COVID-19 QUALITATIVE RT-PCR 2020-11-30 [facility] 19:06:00 Sangeeth Joywin URINALYSIS SCREEN AND MICROSCOPY, 2020-11-30 [facility] WITH REFLEX TO CULTURE 19:06:00 Sangeeth Joywin URINE CULTURE 2020-11-30 [facility] al 18:48:00 Sangeeth Joywin PHOSPHORUS LEVEL 2020-11-30 [facility] 18:48:00 Latrondria Cecilia OFFICE/OUTPATIENT VISIT EST 2020-04-26 [facility] 00:[facility]:00 TRICHOMONAS VAGIN DIR PROBE 2020-04-26 [facility] 00:00:00 URINALYSIS WITH MICROSCOPIC IF 2020-04-03 Ramirez, Franc Beckyousuf [facility] INDICATED 16:28:00 [facility] CBC W/PLT COUNT & AUTO 2020-04-03 Ramirez, Franc Beckyousuf [facility] DIFFERENTIAL 16:27:[address] [facility] [address] ABDOMEN/PELVIS WITH IV 2020-04-03 Bogdan Ramirezus Hafsa [facility] CONTRAST 15:35:00 [facility] COMPREHENSIVE METABOLIC PANEL 2020-04-03 Ashley Franc Beckyousuf [facility] 14:40:00 [facility] URINE TEST 2019-08-25 [facility] [...] 00:00:00 CYTOPATH C/V AUTO FLUID REDO 2019-07-26 [facility] 00:[facility]:00 Plan of Care Planned Activity Planned Date Details Comments Source Future Scheduled 2023-06-[address] [facility] Test 00:00:00 [facility] r Screening (12+) [code = Tobacco Cessation Counseling and Screening (12+)] Future Scheduled 2022-11-22 COVID-19 VACCINE (#1) [facility] 00:12:38 [code = COVID-19 Hospital VACCINE (#1)] Future Scheduled 2022-11-22 Pneumococcal Vaccine: [facility] 00:12:38 Pediatrics (0 to 5 Hospital Years) and At-Risk Patients (6 to 64 Years) (1 - PCV) [code = Pneumococcal Vaccine: Pediatrics (0 to 5 Years) and At-Risk Patients (6 to 64 Years) (1 - PCV)] Future Scheduled 2022-11-22 Hepatitis C screening [facility] 00:12:38 (procedure) [code = Hospital 247068269] Future Scheduled 2022-11-22 Screening for malignant [facility] 00:12:38 neoplasm of cervix [facility] (procedure) [code = 216960068] Future Scheduled 2022-11-22 BREAST CANCER SCREENING [facility] 00:12:38 [code = BREAST CANCER Hospit al SCREENING] Future Scheduled 2022-11-22 INFLUENZA VACCINE [code [facility] 00:12:38 = INFLUENZA VACCINE] Hospita l Future Scheduled 2022-10-14 EGD W/G-POEM [code = 1 Occurrences [facility] Test 16:34:55 [id number]] starting of Medicine 10/14/2022 until 04/16/2023 Future Scheduled 2022-10-14 FLU VACCINE > 6 MONTHS [facility] 16:24:02 [code = FLU VACCINE > 6 of M edicine MONTHS] Future Scheduled 2022-10-14 Screening for malignant [facility] Test 16:24:02 neoplasm of breast of Medici ne (procedure) [code = 275812070] Future Scheduled 2022-10-14 COVID-19 Vaccine (#1) [facility] Test 16:24:02 [code = COVID-19 of Medicine Vaccine (#1)] Future Scheduled 2022-10-14 TETANUS SHOT (ADULT) [facility] Test 16:24:02 [code = TETANUS SHOT of Medi cine (ADULT)] Future Scheduled 2022-10-14 BMI Follow Up Plan [facility] [employer] [facility] 16:24:02 [code = BMI Follow Up of Med icine Plan] Future Scheduled 2022-10-14 Human immunodeficiency [facility] Test 16:24:02 virus screening of Medicine (procedure) [code = 067728148] Future Scheduled 2022-10-14 Hepatitis C screening Ba [facility] Test 16:24:02 (procedure) [code = of Medic ine 671200490] Future Scheduled 2022-10-14 Screening for malignant [employer] Test 16:24:02 neoplasm of cervix of Medici ne (procedure) [code = 113131320] Future Scheduled 2022-07-26 Screening for malignant [facility] Test 00:00:00 neoplasm of cervix Medical C enter (procedure) [code = 207897313] Future Scheduled 2022-07-26 Screening for malignant [facility] Test 00:00:00 neoplasm of cervix Medical C enter (procedure) [code = 746582402] Future Scheduled 2022-07-26 Screening for malignant [facility] Test 00:00:00 neoplasm of cervix Medical C enter (procedure) [code = 066862468] Future Scheduled 2022-07-26 Screening for malignant [facility] Test 00:00:00 neoplasm of cervix Medical C enter (procedure) [code = 713129645] Future Scheduled 2022-07-02 HEPATITIS B VACCINES (1 [facility] 14:04:21 of 3 - 3-dose series) Hospit al [code = HEPATITIS B VACCINES (1 of 3 - 3-dose series)] Future Scheduled 2022-07-02 COVID-19 VACCINE (#1) [facility] 14:04:21 [code = COVID-19 Hospital VACCINE (#1)] Future Scheduled 2022-07-02 Pneumococcal Vaccine: [facility] 14:04:21 Pediatrics (0 to 5 Hospital Years) and At-Risk Patients (6 to 64 Years) (1 - PCV) [code = Pneumococcal Vaccine: Pediatrics (0 to 5 Years) and At-Risk Patients (6 to 64 Years) (1 - PCV)] Future Scheduled 2022-07-02 Hepatitis C screening [facility] 14:04:21 (procedure) [code = Hospital 668194496] Future Scheduled 2022-07-02 Screening for malignant [facility] 14:04:21 neoplasm of cervix Hospital (procedure) [code = 635171796] Future Scheduled 2022-07-02 BREAST CANCER SCREENING [facility] 14:04:21 [code = BREAST CANCER Hospit al SCREENING] Future Scheduled 2022-07-02 INFLUENZA VACCINE [code [facility] 14:04:21 = INFLUENZA VACCINE] Hospita l Future Scheduled 2022-04-11 INFLUENZA [facility]ACCINE (#1[facility] [code = INFLUENZA Medical Ce nter VACCINE (#1)] Future Scheduled 2022-04-11 INFLUENZA VACCINE (#1) [facility] 00:00[facility]00 [code = INFLUENZA Medical Ce nter VACCINE (#1)] Future Scheduled 2021-09-12 COVID-19 VACCINE (1) [facility] 15:51:07 [code = COVID-19 Hospital VACCINE (1)] Future Scheduled 2021-09-12 Hepatitis C screening [facility] 15:51:07 (procedure) [code = Hospital 332043155] Future Scheduled 2021-09-12 Screening for malignant [facility] 15:51:07 neoplasm of cervix Hospital (procedure) [code = 744109100] Future Scheduled 2021-09-12 INFLUENZA VACCINE [code [facility] 15:51:07 = INFLUENZA VACCINE] Hospita l Future Scheduled 2021-09-12 COVID-19 VACCINE (1) [facility] 15:51:07 [code = COVID-19 Hospital VACCINE (1)] Future Scheduled 2021-09-12 Hepatitis C screening [facility] 15:51:07 (procedure) [code = Hospital 464006870] Future Scheduled 2021-09-12 Screening for malignant [facility] 15:51:07 neoplasm of cervix Hospital (procedure) [code = 834764679] Future Scheduled 2021-09-12 INFLUENZA VACCINE [code [facility] 15:51:07 = INFLUENZA VACCINE] Hospita l Future Scheduled 2021-04-11 INFLUENZA VACCINE (#1) C [...] VACCINE (#1)] Future Scheduled 2019-07-19 Lipid panel (procedure) [facility] Test 00:00:00 [code = 59360089] Medical Ce nter Future Scheduled 2019-07-19 Lipid panel (procedure) [facility] Test 00:00:00 [code = 32069769] Medical Ce nter Future Scheduled 2019-07-19 Lipid panel (procedure) [facility] Test 00:00:00 [code = 17528691] Medical Ce nter Future Scheduled 2019-07-19 Lipid panel (procedure) [facility] Test 00:00:00 [code = 91491259] Medical Ce nter Future Scheduled 2019-07-19 Lipid panel (procedure) [facility] Test 00:00:00 [code = 13610435] Medical Ce nter Future Scheduled 2000-12-08 Screening for malignant [facility] Test 00:00:00 neoplasm of cervix Medical C enter (procedure) [code = 016816287] Future Scheduled 1998-12-08 DTAP/TDAP/TD VACCINES CH I [...] Jean Carlos ter VACCINE (#1)] Future Scheduled MAM[facility] AN[facility]] of Medic ine Future Scheduled TETANUS SHOT (ADULT) [employer] [facility] [code = TETANUS SHOT of Medi cine (ADULT)] Future Scheduled BMI FOLLOW UP PLAN [employer] [facility] [code = BMI FOLLOW UP of Med icine PLAN] Future Scheduled HEPATITIS C SCREENING [employer] [facility] [code = HEPATITIS C of Medic ine SCREENING] Future Scheduled HIV SCREENING [code = [employer] [facility] HIV SCREENING] of Medicine Future Scheduled CERVICAL CANCER [facility] ollege Test SCREENING 3 YEAR FOLLOW of M edicine UP [code = CERVICAL CANCER SCREENING 3 YEAR FOLLOW UP] Future Scheduled FLU VACCINE > 6 MONTHS [employer] Test [code = FLU VACCINE > 6 of M edicine MONTHS] Future Scheduled ZOSTER VACCINE (1 of 2) [facility] Test [code = ZOSTER VACCINE of Me dicine (1 of 2)] Future Scheduled COVID-19 VACCINE (1) [facility] [code = COVID-19 Hospital VACCINE (1)] Future Scheduled Hepatitis C screening [facility] (procedure) [code = Hospital 599150801] Future Scheduled Screening for malignant [facility] neoplasm of cervix Hospital (procedure) [code = 687894597] Future Scheduled INFLUENZA VACCINE [code [facility] = INFLUENZA VACCINE] Hospita l Encounters Start End Encounter Admission Attending Care Care Encounter Source Date/Time Date/Time Type Type Clinicians Facility Department ID 2022-11-12 Outpatient [facility] [id number] Common 08:15:02 [id number] [facility] 2022-10-02 Outpatient [facility] [id number] Common 19:10:00 [id number] [facility] 2022-09-20 Outpatient [facility] [id number] Common 10:48:04 [id number] [facility] 2023-05-13 2023-05-13 Outpatient R JOSE ANDERSON [facility] [id number] Univers 13:40:00 13:40:00 JOSE ANDERSON [facility] 2023-01-20 2023-01-20 Outpatient SVEN, [facility] [id number] [facility] 16:07:30 16:14:41 [facility] 2023-01-20 2023-01-20 Outpatient SVEN [facility] [id number] [facility] 00:00:00 00:00:00 [facility] 2023-01-14 2023-01-14 [facility] [id number] [id number] Univers 13:30:00 14:00:00 Visit [facility] 350.1.13.10 it y of [place] 4.2.7.2.686 Renato as ITZEL?BLEA [id number] [address] MEDICAL OFFICE BUILDING 2023-01-14 2023-01-14 Outpatient R STEPHEN [facility] [id number] Univers 13:30:00 13:30:00 MEGAN james [facility] 2023-01-13 2023-01-13 Emergency [facility] [id number] Univers 17:37:00 20:45:00 SERJIO james [facility] 2023-01-13 2023-01-13 [facility] [id number] Univers 17:37:00 20:45:00 Serjio SCOTT 350.1.13.10 i ty of Sergio LONG 4.2.7.2.686 [place] [facility] [id number] [facility] [address]84 [place] 2023-01-07 2023-01-07 Outpatient R ROM [facility] [id number] Univers 15:15:00 15:15:00 SERJIO james [facility] 2023-01-03 2023-01-03 Patient Rommel [facility] 1.2.840.114 [id number] Univers 00:00:00 00:00:00 Outreach Raina [facility] 350.1.13.10 i ty of [place] 4.2.7.2.686 Renato as ITZEL?BLEA [id number] [address] OFFICE [facility] 2023-01-02 2023-01-02 Outpatient R DEXTER ANDERSONINE [facility] [id number] Univers 11:20:00 11:54:17 JOSE ANDERSON riley [facility] 2023-01-02 2023-01-02 Office [facility] 1.2.840.114 [id number] Univers 11:20:00 11:54:17 Visit [facility] 350.1.13.10 ity of [place] 4.2.7.2.686 Renato as ITZEL?BLEA [id number] [address] 2023-01-02 2023-01-02 Telephone [facility] [id number] Univers 00:00:00 00:00:00 [facility] 350.1.13.10 ity of [place] 4.2.7.2.686 Renato as ITZEL?BLEA [id number] [address] 2023-01-01 2023-01-01 Outpatient R MAXIMINO CHILDNJUziel [facility] [id number] Univers 11:30:00 11:30:00 [facility] 2022-12-24 2022-12-24 Outpatient R JUSTIN JOSE [facility] [id number] Univers 14:20:00 15:26:11 JOSE ANDERSON [facility] 2022-12-24 2022-12-24 Office [facility] 1.2.840.114 [id number] Univers 14:20:00 15:26:11 Visit [facility] 350.1.13.10 ity of [place] 4.2.7.2.686 Renato as ITZEL?BLEA [id number] [address] OFFICE [facility] 2022-12-24 2022-12-24 Telephone [facility] [id number] Univers 00:00:00 00:00:00 [facility] 350.1.13.10 ity of [place] 4.2.7.2.686 Renato as ITZEL?BLEA [id number] [address] 2022-12-24 2022-12-24 Telephone [facility] [id number] Univers 00:00:00 00:00:00 Jose HEALTH 350.1.13.10 ity of [place] 4.2.7.2.686 Renato as ITZEL?BLEA [id number] [address] OFFICE [facility] 2022-12-23 2022-12-23 Telephone [facility] [id number] Univers 00:00:00 00:00:00 [facility] 350.1.13.10 ity of [place] 4.2.7.2.686 Renato as ITZEL?BLEA [id number] [address] 2022-12-20 2022-12-22 Outpatient ALISTAIR JAMIL [facility] Surgery [id number] SLE 05:35:00 12:40:00 TITILJUNIE 2022-12-20 2022-12-[address] [facility] [id number] SLE 16:23:01 23:59:00 JC 2022-12-18 2022-12-18 Telephone [facility] [id number] Univers 00:00:00 00:00:00 [facility] 350.1.13.10 ity of [place] 4.2.7.2.686 Renato as ITZEL?BLEA [id number] [address] 2022-12-16 2022-12-16 Outpatient Allyssa KHAN [facility] [id number] Univers 08:30:00 08:30:00 CHANEL james [facility] 2022-12-10 2022-12-10 Outpatient Allyssa BAILEY [facility] [id number] Univers 11:00:00 11:00:00 MARK james [facility] 2022-12-06 2022-12-07 Outpatient ALISTAIR BETH [facility] Surgery [id number] [facility] 07:19:00 15:47:00 YANDEL 2022-12-06 2022-12-06 Outpatient TINY DIAL [facility] [id number] [facility] 17:31:31 17:31:31 PETRONA horvath of Medicin e 2022-12-02 2022-12-02 Outpatient Allyssa BAILEY [facility] [id number] Univers 11:00:00 11:00:00 MARK james [facility] 2022-11-26 2022-11-26 Transition Donaldандрей FARHANAYousuf 1.2.840.114 [id number] Univers 00:00:00 00:00:00 of Care Estela NAVAS 350.1.13.10 i ty of [place] 4.2.7.2.686 [place] [id number] [facility] [address] 2022-11-22 2022-11-24 Inpatient Fátima [facility] [id number] Univers 00:35:00 16:21:00 ZULEIKA james [facility] 2022-11-22 2022-11-24 [facility] 1.2.840. 114 [id number] Univers 00:35:00 16:21:00 Encounter Zuleika Kay 350.1.13.10 ity [facility] 4.2.7.2.686 [facility] [id number] [facility] [address] 2022-11-21 2022-11-21 Nurse JOSE JUAN Jolly 1.2.840.114 [id number] Univers 00:00:00 00:00:00 Triage Angela HATHAWAY 350.1.13.10 it y of [facility] 4.2.7.2.686 Renato as [id number] [facility] [address] 2022-11-15 2022-11-15 Outpatient Allyssa KHAN [facility] [id number] Univers 14:30:00 14:40:57 CHANEL james [facility] 2022-11-15 2022-11-15 Office Simeon [facility] 1.2.840.114 [id number] Univers 14:30:00 14:40:[address] [facility] 350.1.13.10 it y of [place] 4.2.7.2.686 Renato as ITZEL?BLEA [id number] Sd rogelio GUTIERREZ 092 [facility] OFFICE [facility] 2022-11-12 2022-11-12 Outpatient Allyssa KHAN [facility] [id number] Univers 15:30:00 15:30:00 [facility] 2022-11-12 2022-11-12 Outpatient Allyssa KHAN [facility] [id number] Univers 11:00:00 11:00:00 CHANELriley [facility] 2022-11-11 2022-11-11 Outpatient R JUSTIN JOSE [facility] [id number] Univers 14:20:00 14:38:06 JUSTIN JOSE [facility] 2022-11-11 2022-11-11 [facility] 1.2.840.114 [id number] Univers 14:20:00 14:38:06 Visit [place] 16626.1.13.10 ity [facility] 4.2.7.2.686 Renato as ITZEL?BLEA [id number] Sd valeny CYRUS 044 [facility] 2022-11-05 2022-11-05 Outpatient R JOSE ANDERSON [facility] [id number] Univers 14:40:00 15:04:01 MARIPOSARiley JOSE [facility] 2022-11-05 2022-11-05 Office [facility] 1.2.840.114 [id number] Univers 14:40:00 15:04:01 Visit [place] 16626.1.13.10 ity [facility] 4.2.7.2.686 Renato as ITZEL?BLEA [id number] Sd rogelio BRIDG[address] OFFICE [facility] 2022-11-01 2022-11-01 Outpatient R JOSE ANDERSON [facility] [id number] Univers 10:44:42 23:59:00 JUSTIN JOSE [facility] 2022-11-01 2022-11-01 Office [facility] 1.2.840.114 [id number] Univers 10:00:00 10:44:30 Visit [facility] 350.1.13.10 ity of [place] 4.2.7.2.686 Renato as ITZEL?BLEA [id number] [address] MEDICAL OFFICE [facility] 2022-11-01 2022-11-01 Telephone Justin [facility] [id number] Univers 00:00:00 00:00:00 [facility] 350.1.13.10 ity of [place] 4.2.7.2.686 Renato as ITZEL?BLEA [id number] [address] OFFICE [facility] 2022-10-29 2022-10-29 Out[facility] [id number] Univers 15:20:00 15:20:00 [facility] 2022-10-28 2022-10-28 Outpatient R MARLENE [facility] [id number] Univers 13:30:00 13:30:00 CARL james o f [facility] 2022-10-16 2022-10-16 Emergency [facility]RT [id number] Univers 01:54:00 03:09:00 NAYLA [facility] 2022-10-16 2022-10-16 Emergency [facility] [id number] Univers 01:54:00 03:09:00 Nayla S SONIA 350.1.13.10 i ty of [place] 4.2.7.2.686 [place] [id number] [facility] [address] [place] 2022-10-16 2022-10-16 Nurse JOSE JUAN Purdy 1.2.840.114 [id number] Univers 00:00:00 00:00:00 Triage Nighat HATHAWAY 350.1.13.10 it y of HOSPITAL 4.2.7.2.686 Renato as [id number] [facility] [address] [place] 2022-10-14 2022-10-14 Office TINY DIAL 1.2.840.114 [id number] [facility] 16:11:13 17:48:03 Visit SALMAAN AMBULATOR 350.1.13.21 College Y 0.2.7.2.686 of [id number] [facility] tucker 325 e 2022-10-11 2022-10-11 Outpatient [facility] [id number] Univers 14:00:00 14:42:36 [facility] 2022-10-11 2022-10-11 Office [facility] 1.2.840.114 [id number] Univers 14:00:00 14:42:36 Visit [facility] 350.1.13.10 ity of [place] 4.2.7.2.686 Renato as ITZEL?BLEA [id number] [address] MEDICAL OFFICE [facility] 2022-10-03 2022-10-03 Outpatient [facility] [id number] Univers 14:20:00 14:20:00 [facility] 2022-10-02 2022-10-[address] [facility] 1.2.840.114 [id number] Univers 00:00:00 00:00:00 , [facility] 350.1.13.10 ity of [facility] 4.2.7.2.686 Renato as ITZEL?BLEA [id number] [address] MEDICAL OFFICE [facility] 2022-10-01 2022-10-01 Outpatient R EARNESTINE [facility] [id number] Univers 15:15:00 15:36:05 , LAWSON [facility] 2022-10-01 2022-10-[address] [facility] 1.2.840.114 [id number] Univers 15:15:00 15:36:05 Visit , [facility] 350.1.13.10 ity of [facility] 4.2.7.2.686 Renato as ITZEL?BLEA [id number] [address] MEDICAL OFFICE BUILDING 2022-09-26 2022-09-26 Outpatient [facility] [id number] Univers 09:40:00 09:40:00 [facility] 2022-09-26 2022-09-26 Emergency X CAROLINA [facility] ERT [id number] Univers 04:56:00 06:44:00 DORENE [facility] 2022-09-26 2022-09-26 [facility] [id number] Univers 04:56:00 06:44:00 Dorene Mendoza SONIA 350.1.13.10 ity of [facility] 4.2.7.2.686 [facility] [id number] [place] 058904 [place] 2022-09-19 2022-09-19 Outpatient TINY MACHUCA [facility] [id number] [facility] 11:01:35 11:25:19 DENG Sykes e of Medicin e 2022-09-11 2022-09-11 Orders Doctor BORREGO 1.2.840.114 [id number] Univers 00:00:00 00:00:00 Only Unassigned, MAG 350.1.13.10 ity of [facility] 4.2.7.2.686 Renato [id number] [address] 2022-09-10 2022-09-10 Outpatient R [facility] [id number] Univers 13:30:00 13:30:00 ity [facility] 2022-09-09 2022-09-09 Outpatient [facility] [id number] Univers 13:00:00 13:00:00 EWA [facility] 2022-09-09 2022-09-09 Emergency [facility] ERT [id number] Univers 06:45:00 12:15:00 PRICILLA riley [facility] 2022-09-09 2022-09-09 Emergency [facility] 1.2.840.114 [id number] Univers 06:45:00 12:15:00 Pricilla SOCTT 350.1.13.10 ity [facility] 4.2.7.2.686 [facility] [id number] [address] 2022-09-04 2022-09-04 Outpatient [facility] [id number] Univers 09:30:00 10:13:41 WAYNE [facility] 2022-09-04 2022-09-04 Orders Doctor BORREGO 1.2.840.114 [id number] Univers 00:00:00 00:00:00 Only Unassigned, MAG 350.1.13.10 ity of [place] [facility] 4.2.7.2.686 Renato as [phone] [address] 2022-08-29 2022-08-29 [facility] [id number] Univers 10:40:00 11:30:31 [facility] 2022-08-29 2022-08-29 [facility] [id number] Univers 10:40:00 11:30:31 Visit [facility] 350.1.13.10 ity of [place] 4.2.7.2.686 Renato as ITZEL?BLEA [phone] [address] MEDICAL OFFICE [facility] 2022-08-23 2022-08-23 [facility] [id number] Univers 09:20:00 09:20:00 [facility] 2022-08-22 2022-08-22 [facility] [id number] Univers 16:00:00 16:00:00 [facility] 2022-08-21 2022-08-21 [employer] [facility] [id number] Univers 16:30:00 16:45:00 Visit Megan Mitchell [facility] [id number] ity of [place] 4.2.7.2.686 Renato as ITZEL?BLEA [phone] [facility] 353 [facility] OFFICE [facility] 2022-08-21 2022-08-21 Outpatient R [facility] [id number] Univers 15:30:00 16:26:48 MEGAN riley [facility] 2022-08-21 2022-08-21 Office [facility] 1.2.840.114 [id number] Univers 15:30:00 16:00:00 Visit Megan [facility] 350.1.13.10 it y of [facility] 4.2.7.2.686 Renato as ITZEL?BLEA [id number] [address] OFFICE [facility] 2022-08-21 2022-08-21 Outpatient R MARIAH [facility] [id number] Univers 08:45:00 08:45:00 EWA riley [facility] 2022-08-21 2022-08-21 Telephone [facility] 1.2.504.374 [id number] Univers 00:00:00 00:00:00 [facility] 350.1.13.10 ity of [place] 4.2.7.2.686 Renato as ITZEL?BLEA [id number] [facility] 044 [facility] OFFICE [facility] 2022-08-20 2022-08-20 Emergency X [facility] ERT [id number] Univers 18:00:00 21:10:00 [facility] 2022-08-20 2022-08-20 Emergency [facility] 1.2.840.114 [id number] Univers 18:00:00 21:10:00 Yonis A [place] 350.1.13.10 ity [facility] 4.2.7.2.686 [facility] [id number] [address] 2022-08-19 2022-08-19 Outpatient R OWEN [facility] [id number] Univers 10:20:00 10:28:59 JOANNA panchoriley [facility] 2022-08-19 2022-08-19 Urgent Joanna Weaver [facility] 1.2.840.114 [id number] Univers 10:20:00 10:28:59 Care Unknown, Attending HEALTH 350.1.13.10 ity [facility] 4.2.7.2.686 Renato as ITZEL?BLEA [id number] [facility] [address] [place] MEDICAL OFFICE [facility] 2022-08-14 2022-08-14 Outpatient R JUSTIN [facility] [id number] Univers 08:35:14 23:59:00 JOSE [facility] 2022-08-14 2022-08-14 [facility] 1.2.840.114 [id number] Univers 08:35:14 23:59:00 Encounter Jose [place] 350.1.13.10 ity [facility] 4.2.7.2.686 [facility] [phone] [facility] [address] 2022-08-12 2022-08-12 Telephone ÁNGELA Anderson 1.2.450.795 [id number] [facility] 00:00:00 00:00:00 Jose NAVAS 350.1.13.10 ity of [place] 4.2.7.2.686 Michael [id number] [facility] [address] 2022-08-06 2022-08-06 Outpatient R OWEN [facility] [id number] Univers 10:40:00 11:22:51 JOANNA ity of [facility] 2022-08-06 2022-08-06 Urgent Joanna Weaver [facility] 1.2.840.114 [id number] Univers 10:40:00 11:22:51 Care Unknown, Attending HEALTH 350.1.13.10 ity of [place] 4.2.7.2.686 Renato as ITZEL?BLEA [id number] [address] MEDICAL OFFICE BUILDING 2022-07-09 2022-07-17 Inpatient ER SHANNON, [facility] Emergency [id number] SLE 19:59:00 15:04:00 [facility] 2022-07-09 2022-07-09 Outpatient [facility] [id number] [facility] 00:00:00 23:59:00 Fior Medicaleja horvath 2022-07-04 2022-07-04 Orders Mac [facility] [id number] [id number] 00:00:00 00:00:00 Only [facility] 2022-06-25 2022-06-25 Outpatient FRANDY CatU SUG [id number] [facility] 08:40:00 08:40:00 Abelardo 34 [facility] 2022-06-19 2022-06-19 Orders Mac [facility] [id number] [id number] 00:00:00 00:00:00 Only [facility] 2022-06-13 2022-06-13 Orders Doctor BORREGO 1.2.840.114 [id number] Univers 00:00:00 00:00:00 Only Unassigned, MAG 350.1.13.10 ity of [place] [facility] 4.2.7.2.686 Renato as [phone] [place] [address] [address] 2022-06-12 2022-06-12 Emergency Noemy, 1.2.840.1 [id number] Methodi 16:09:00 21:30:00 Kelvin Santana 00316.1.[address] 3.430.2.7 Hospit a .3.668574 l .8 2022-06-12 2022-06-12 Emergency NOEMY, [facility] [id number] [place] 00:00:00 00:00:[address] 2022-06-12 2022-06-12 Travel 1.2.840.1 1.2.795.557 0775 [id number] Methodi 00:00:00 00:00:[address] 3.430.2.7 0.2.7.3.698 Ho spita .3.445036 084.8 l .8 2022-06-12 2022-06-12 Travel 1.2.840.1 1.2.238.589 8915 [id number] Methodi 00:00:00 00:00:[address] 3.430.2.7 0.2.7.3.698 Ho spita .3.257585 084.8 l .8 2022-06-11 2022-06-11 Emergency Андрей GAGE, [facility] [id number] [facility] 16:40:00 18:16:00 [facility] 2022-06-11 2022-06-11 Office EL Mac [facility] [id number] [id number] 13:00:00 13:59:58 Visit [facility] 2022-06-10 2022-06-10 Telephone Mac [facility] [id number] [id number] 00:00:00 00:00:00 [facility] 2022-06-09 2022-06-09 Letter JOSE JUAN [place] 1.2.840.114 [id number] Univers 00:00:00 00:00:00 (Out) Nidhi HATHAWAY 350.1.13.10 it y of [facility] 4.2.7.2.686 Renato as [phone] [address] 2022-06-08 2022-06-08 Urgent Provider, [facility] 1.2.840.114 [id number] Univers 09:40:00 10:00:00 Care Unknown, Attending HEALTH 350.1.13.10 ity [facility] 4.2.7.2.686 Renato as ITZEL?BLEA [phone] [address] MEDICAL OFFICE BUILDING 2022-06-08 2022-06-08 Outpatient R SIMRAN [facility] [id number] Univers 09:40:00 09:53:06 EMERSON james o f [facility] 2022-06-08 2022-06-08 Outpatient Allyssa ANDERSON [facility] [id number] Univers 09:15:00 09:15:00 JOSE james [facility] 2022-06-07 2022-06-07 Outpatient ALISTAIR SHAWAGA, [facility] 2051 [id number] SLS 10:25:39 23:59:00 JONNATHAN 2022-06-07 2022-06-07 [facility] [id number] 10:25:39 10:25:39 Encounter Jonnathan Vanessa [facility] 2022-06-06 2022-06-06 Outside [facility] [id number] [id number] 00:00:00 00:00:00 Orders Jonnathan [facility] 2022-06-05 2022-06-05 Telephone [facility] [id number] [id number] 00:00:00 00:00:00 Jonnathan [facility] 2022-05-31 2022-06-03 [facility] [id number] [id number] 08:15:00 15:23:46 Visit Jonnathan Crawford [facility] 2022-05-16 2022-06-03 Office [facility] [id number] [id number] 09:00:00 13:39:11 Visit [facility] 2022-06-03 2022-06-03 Outpatient Allyssa WEAVER [facility] [id number] Univers 13:20:00 13:20:00 JOANNA [facility] 2022-06-01 2022-06-02 Emergency ER Tilden, [facility] [id number] 18:20:00 03:42:00 [facility] 2022-06-01 2022-06-02 Emergency ER JULIO CÉSAR, [facility] Emergency 2051 [id number] [facility] 18:20:00 03:42:00 [facility] 2022-06-02 2022-06-02 Orders Mac [facility] [id number] [id number] 00:00:00 00:00:00 Only [facility] 2022-05-16 2022-06-01 Inpatient UR [facility] General Med [id number] [facility] 15:08:00 18:09:00 5 2022-05-31 2022-05-31 Orders Mac [facility] [id number] [id number] 00:00:00 00:00:00 Only [facility] 2022-05-29 2022-05-29 Emergency X FANNY, [facility] ERT [id number] Univers 06:05:00 09:49:00 DAYA [facility] 2022-05-29 2022-05-29 Emergency Amilcar Ang [facility] 1.2.840. 114 [id number] Univers 06:05:00 09:49:00 Daya Loera 350.1.13.10 [facility] 4.2.7.2.686 [facility] [id number] [place] [address] [address] 2022-05-22 2022-05-22 Emergency X PAPITO, [facility] ERT [id number] Univers 07:48:00 10:55:00 CARLITO [facility] 2022-05-22 2022-05-22 [facility] 1.2.473.458 [id number] Univers 07:48:00 10:55:00 Carlito SCOTT 350.1.13.10 ity of [facility] 4.2.7.2.686 [facility] [phone] [address] 2022-05-20 2022-05-20 Emergency [facility] [id number] 13:07:00 18:45:00 [facility] 2022-05-20 2022-05-20 Emergency ER [facility] Emergency [id number] [facility] 13:07:00 18:45:00 2022-05-16 2022-05-17 [facility] [id number] 15:08:00 15:00:[address] [place] [address] 2022-05-07 2022-05-07 Procedure [facility] [id number] [id number] 15:00:00 16:08:25 visit [facility] 2022-05-06 2022-05-06 [facility] [id number] [id number] 00:00:00 00:00:00 [facility] 2022-05-03 2022-05-03 [facility] 1.2.840.114 [id number] Univers 00:00:00 00:00:00 [facility] 350.1.13.10 ity of [place] 4.2.7.2.686 Renato as ITZEL?BLEA [phone] [address] MEDICAL OFFICE BUILDING 2022-05-02 2022-05-02 [facility] 1.2.840.114 [id number] Univers 00:00:00 00:00:00 [facility] 350.1.13.10 ity of [place] 4.2.7.2.686 Renato as ITZEL?BLEA [id number] [address] MEDICAL OFFICE BUILDING 2022-04-24 2022-04-29 [facility] Jonnathan Marrero [facility] [id number] [facility] 09:57:00 15:51:00 Encounter Quynh Burleson [facility] 2022-04-24 2022-04-29 Inpatient EL HANNAH, [facility] Surgery [id number] [facility] 09:57:00 15:51:00 QUYNH 2022-04-24 2022-04-24 Surgery Mac [facility] [id number] [id number] 11:50:00 13:20:00 [facility] 2022-04-24 2022-04-24 Anesthesia Juan Carlos Logan [facility] [id number] [facility] 11:48:00 12:57:00 Event Yao [facility] 2022-04-24 2022-04-24 Travel [facility] [id number] [facility] 00:00:00 00:00:00 [facility] 2022-04-22 2022-04-22 Hospital EL [facility] [id number] 09:18:12 23:59:00 Encounter [facility] 2022-04-22 2022-04-22 Outpatient EL [facility] [id number] SLS 09:18:12 23:59:00 2022-04-19 2022-04-19 Orders Mac [facility] [id number] [id number] 00:00:00 00:00:00 Only [facility] 2022-04-19 2022-04-19 Travel [facility] [id number] [facility] 00:00:00 00:00:00 [facility] 2022-04-18 2022-04-18 Telephone [facility] 1.2.321.462 [id number] Univers 00:00:00 00:00:00 [facility] 350.1.13.10 [facility] 4.2.7.2.686 Renato as ITZEL?BLEA [id number] [address] MEDICAL OFFICE BUILDING 2022-04-16 2022-04-16 Emergency X RADHA OHYANETH ERT [id number] Univers 10:20:00 13:30:00 BRITTANI james [facility] 2022-04-16 2022-04-16 Emergency [facility] 1.2.885.320 [id number] Univers 10:20:00 13:30:00 [facility] 350.1.13.10 it y of [place] 4.2.7.2.686 [facility] [id number] [facility] [address] ([facility] 2022-04-10 2022-04-10 Telephone Mac [facility] [id number] [id number] 00:00:00 00:00:00 Jonnathan [facility] 2022-04-08 2022-04-08 Emergency X ROD, K [facility] ERT [id number] Univers 08:48:00 12:36:00 ity of [facility] 2022-04-08 2022-04-08 Emergency Rod, [facility] 1.2.840.114 [id number] Univers 08:48:00 12:36:00 Deepali [facility] 350.1.13.10 i ty of [place] 4.2.7.2.686 [facility] [id number] [address] 2022-04-08 2022-04-08 Emergency X ROD, K [facility] ERT [id number] Univers 08:48:00 12:36:00 ity of [facility] 2022-04-05 2022-04-05 [facility] YasminSWETHAHI 1.2.840.114 [id number] Univers 09:54:00 23:59:00 Encounter Iqra Lopez 350.1.13.10 ity of [facility] 4.2.7.2.686 Renato as [phone] [address] 2022-04-05 2022-04-05 Valentina [facility] 1.2.840.114 [id number] Univers 00:00:00 00:00:00 [facility] 350.1.13.10 ity of [place] 4.2.7.2.686 Renato as ITZEL?BLEA [id number] Sd rogelio [address] MEDICAL OFFICE BUILDING 2022-04-04 2022-04-04 Outpatient EL [facility] [id number] [facility] 17:21:49 17:21:49 2022-04-04 2022-04-04 Office EL Mac [facility] [id number] 2048 [id number] [facility] 14:15:00 15:03:53 Visit [facility] 2022-04-04 2022-04-04 [employer], Ang - Db [facility] 1.2.840.1 14 [id number] Univers 11:00:00 11:25:02 Visit Justin [facility] 350.1.13.10 ity of [facility] 4.2.7.2.686 Renato as ITZEL?BLEA [id number] Sd rogelio [facility] 353 [facility] OFFICE [facility] 2022-04-04 2022-04-04 [facility], Ang - Db [facility] 1.2.840.1 14 [id number] [facility] 11:00:00 11:15:00 [facility] 350.1.13.10 ity of [facility] 4.2.7.2.686 Renato as ITZEL?BLEA [id number] [address] 2022-04-04 2022-04-04 Outpatient [facility] [id number] [facility] 11:00:00 11:00:00 [facility] 2022-04-04 2022-04-04 Office [facility] 1.2.840.114 [id number] Univers 09:20:00 10:56:32 Visit [facility] 350.1.13.10 ity of [place] 4.2.7.2.686 Renato as ITZEL?BLEA [id number] [facility] 044 [facility] OFFICE [facility] 2022-04-04 2022-04-04 Outpatient R [facility] [id number] Univers 09:20:00 10:56:32 [facility] 2022-04-04 2022-04-04 Outpatient Tyler HCAWU HCAWU [id number] [facility] 07:27:00 07:27:00 , [address] 2022-04-04 2022-04-04 Letter JOSE JUAN [place] 1.2.840.114 [id number] Univers 00:00:00 00:00:00 (Out) Nidhi HATHAWAY 350.1.13.10 it y of [facility] 4.2.7.2.686 Renato as [id number] [address] 2022-04-03 2022-04-03 Outpatient R OWEN [facility] [id number] Univers 09:40:00 10:14:19 JOANNA ity [facility] 2022-04-03 2022-04-03 Urgent [facility] 1.2.840.114 [id number] Univers 09:40:00 10:14:[address] [facility] 350.1.13.10 it y of [place] 4.2.7.2.686 Renato as ITZEL?BLEA [id number] [facility] [address] [place] MEDICAL OFFICE [facility] 2022-04-03 2022-04-03 Outpatient R [facility] [id number] Univers 09:40:00 10:14:19 [facility] 2022-04-03 2022-04-03 Outpatient R [facility] [id number] Univers 09:30:00 09:30:00 [facility] 2022-04-03 2022-04-03 Abstract [facility] 1.2.840.114 [id number] Univers 00:00:00 00:00:00 [facility] 350.1.13.10 ity [facility] 4.2.7.2.686 Renato as ITZEL?BLEA [id number] [address] MEDICAL OFFICE [facility] 2022-03-31 2022-03-[address] [facility] [id number] 00:00:00 00:00:00 Only Jonnathan [facility] 2022-03-29 2022-03-29 Emergency [facility] ERT [id number] Univers 10:38:00 14:45:00 [facility] 2022-03-29 2022-03-29 [facility] 1.2.840.114 [id number] Univers 10:38:00 14:45:00 [facility] 350.1.13.10 i ty of [place] 4.2.7.2.686 [facility] [id number] [facility] [address] 2022-03-29 2022-03-29 Telephone Mac [facility] [id number] [id number] 00:00:00 00:00:00 [facility] 2022-03-18 2022-03-21 Hospital Juan Carlos Kenny [facility] [id number] 15:03:00 10:20:00 Encounter Libby Hodges [facility] Yessica, Federico Johanna enter 2022-03-18 2022-03-21 Inpatient ER YESSICA, [facility] Emergency [id number] [facility] 15:03:00 10:20:00 FEDERICO 2022-03-20 2022-03-20 Anesthesia Juan Carlos Logan [facility] [id number] 20:30:00 21:18:00 Event Jame Calvillo [facility] 2022-03-20 2022-03-20 [facility] [id number] [id number] 19:00:00 20:17:00 [facility] 2022-03-18 2022-03-18 Procedure [facility]IST[facility]IR [facility] [id number] [id number] 13:00:00 13:13:26 visit [facility] 2022-03-14 2022-03-14 Hospital [facility] [id number] 05:41:00 10:50:00 Encounter [facility] 2022-03-14 2022-03-14 [facility] [id number] [facility] 05:41:00 10:50:00 JONNATHAN 2022-03-14 2022-03-14 Anesthesia Juan Carlos Logan [facility] [id number] [facility] 07:48:00 09:19:00 Event Duane Mario [facility] 2022-03-14 2022-03-14 [facility] [id number] 07:30:00 09:00:00 [facility] 2022-03-14 2022-03-14 Travel [facility] [id number] [facility] 00:00:00 00:00:00 [facility] 2022-03-11 2022-03-11 Hospital EL [facility] [id number] 10:52:28 23:59:00 [facility] 2022-03-11 2022-03-11 Outpatient EL [facility] [id number] [facility] 10:52:28 23:59:00 2022-03-08 2022-03-08 Orders Mac [facility] [id number] [id number] 00:00:00 00:00:00 Only [facility] 2022-03-07 2022-03-07 Travel [facility] [id number] [facility] 00:00:00 00:00:00 [facility] 2022-03-06 2022-03-06 Telephone Abe [facility] [id number] [id number] 00:00:00 00:00:00 [facility] 2022-03-04 2022-03-04 Outpatient EL [facility] [id number] [facility] 12:54:17 12:54:17 2022-03-04 2022-03-04 Clinical EL Nurse, [facility] [id number] [id number] 10:30:00 12:02:28 Support [facility] 2022-02-26 2022-02-26 Office EL Mac [facility] [id number] [id number] 16:00:00 16:32:10 Visit [facility] 2022-02-26 2022-02-26 Office EL Abran [facility] [id number] 15:00:00 16:01:21 Visit [facility] 2022-01-22 2022-01-22 Procedure EL Mac [facility] [id number] [id number] 13:15:00 13:58:33 visit [facility] 2022-01-17 2022-01-19 Outpatient E BRANDON, [facility] MED [id number] [facility] 10:05:00 16:27:00 MO [facility] 2022-02-14 2022-01-17 Inpatient VINNIE Cat SUGUziel [id number] [facility] 09:30:00 09:15:00 Ableardo 69 [facility] 2022-01-15 2022-01-15 Emergency X , [facility] ERT [id number] Univers 06:38:00 09:45:00 MARINE james [facility] 2022-01-15 2022-01-15 Emergency [facility] 1.2.252.434 [id number] Univers 06:38:00 09:45:00 Marine SCOTT 350.1.13.10 i lissy [facility] 4.2.7.2.686 [facility] [id number] [place] [address] [address] 2022-01-13 2022-01-13 Emergency E OEI, [facility] ECC [id number] [facility] 12:54:00 15:30:00 TREVON [facility] 2022-01-10 2022-01-10 [facility] [id number] 17:29:00 20:21:00 [facility] 2022-01-10 2022-01-10 Emergency [facility] Emergency [id number] [facility] 17:29:00 20:21:00 OSYKA 2022-01-06 2022-01-06 [facility] Mac [facility] [id number] [id number] 00:00:00 00:00:00 Only Jonnathan [facility] 2022-01-04 2022-01-04 Hospital ALISTAIR Watts [facility] [id number] 11:30:00 16:15:00 Encounter Jonnathan Vanessa [facility] 2022-01-04 2022-01-04 Outpatient ALISTAIR WATTS [facility] Surgery [id number] [facility] 11:30:00 16:15:00 JONNATHAN 2022-01-04 2022-01-04 Surgery Mac [facility] [id number] [facility] [address] 13:30:00 15:30:00 [facility] 2022-01-04 2022-01-04 Anesthesia Logan Paulino [facility] [id number] [facility] 13:20:00 14:41:00 Event Krystle Mckeon [facility] 2022-01-04 2022-01-04 Travel [facility] [id number] [facility] 00:00:00 [facility] 2022-01-01 2022-01-01 [facility] [id number] [facility] 09:40:08 23:59:00 [facility] 2022-01-01 2022-01-01 Outpatient EL [facility] [id number] [facility] 09:40:08 23:59:00 2021-12-31 2021-12-31 Telephone Mac [facility] [id number] [facility] 00:00:00 00:00:00 [facility] 2021-12-28 2021-12-28 Travel [facility] [id number] [facility] 00:[facility] 00:00:00 [facility] 2021-12-28 2021-12-28 Telephone Mac, [facility] [id number] [id number] [facility] 00:00:00 00:00:00 [facility] 2021-12-26 2021-12-26 Telephone Mac [facility] [id number] [id number] [facility] 00:00:00 00:00:00 [facility] 2021-12-25 2021-12-25 Office EL Mac, [facility] [id number] [facility] 08:00:00 11:25:55 Visit [facility] 2021-12-25 2021-12-25 Office [facility] [id number] 08:30:00 11:17:55 Visit [facility] 2021-12-23 2021-12-23 Emergency E RAMILA [facility] [id number] [facility] 14:25:00 16:35:00 [facility] 2021-12-22 2021-12-22 Emergency E CANDELARIO ZAMORA [facility] 1001 [id number] [facility] 12:41:00 21:07:00 [facility] 2021-11-12 2021-11-12 Outpatient R MARIAH, [facility] [id number] [facility] 09:30:00 09:30:00 EWA jamse [facility] 2021-11-05 2021-11-05 Outpatient R MARIAH [facility] [id number] Univers 09:15:00 11:02:35 EWA james [facility] 2021-11-05 2021-11-05 Ancillary Danelle Drake [facility] 1.2.840. 114 [id number] Univers 09:15:00 11:02:35 Visit Ewa Lemus [employer] [facility] [employer] [facility] [id number] ity [facility] 4.2.7.2.686 [place] PROFESS[place] [phone] Sd dical NAL 179 [facility] 2021-11-05 2021-11-05 Orders Doctor JOSE JUAN 1.2.840.114 [id number] Univers 00:00:00 00:00:00 Only Unassigned, MAG 350.1.13.10 ity of [place] [facility] 4.2.7.2.686 Renato as [id number] [address] 2021-08-24 2021-08-24 [facility] [id number] [facility] 10:19:08 23:59:00 JONNATHAN 2021-08-24 2021-08-24 [facility] [id number] 10:15:00 23:59:00 Encounter Jonnathan [facility] 2021-08-24 2021-08-24 Clinical Nurse, [facility] [id number] 12:30:00 12:45:00 Support Jermaine Beebe [facility] 2021-08-24 2021-08-24 Telephone Mac [facility] [id number] [id number] 00:00:00 00:00:00 [facility] 2021-08-24 2021-08-24 Outside Mac [facility] [id number] 00:00:00 00:00:00 Orders [facility] 2021-08-22 2021-08-22 Telephone Mac [facility] [id number] [id number] 00:00:00 00:00:00 [facility] 2021-08-20 2021-08-20 Outpatient [facility] PIFABRIZIODA HECTOR COH 00:00:00 00:00:00 [id number] 2021-08-15 2021-08-15 Telephone Mac [facility] [id number] [id number] 00:00:00 00:00:00 [facility] 2021-08-14 2021-08-14 Office Mac [facility] [id number] 13:30:00 15:02:06 Visit [facility] 2021-08-14 2021-08-14 Outpatient [facility] PIReneFIDA HECTOR COH 00:00:00 00:00:00 EM- 4 2021-08-08 2021-08-08 Outpatient FBCOVID FBCOVID [id number] 4-2 FBCOVID 00:00:00 00:00:00 [id number] 2021-06-20 2021-06-20 Emergency ER Julio César, [facility] [id number] 11:04:00 14:58:00 [facility] 2021-06-20 2021-06-20 Emergency ER JULIO CÉSAR, [facility] Emergency [id number] [facility] 11:04:00 14:58:00 [facility] 2021-06-20 2021-06-20 Travel [facility] [id number] [facility] 00:00[facility]00 00:00:00 [facility] 2021-06-19 2021-06-19 Emergency Андрей ZULETA [facility] [id number] [place] 13:16:00 16:13:00 [facility] 2021-06-15 2021-06-15 Outpatient C LIZETT, [facility] RAD [id number] [place] 14:03:00 23:59:00 TOD [facility] 2021-03-20 2021-03-20 Outpatient ARROYO, [facility] [id number] [facility] 15:51:00 15:51:00 ealt 2021-03-20 2021-03-20 Outpatient ARROYO, [facility] [id number] [facility] 15:51:00 15:51:00 e2-2fq4-73p cb6-47b5-9 ealth 0-pw6lly326 s1i-f51568 0f4 3fa6d6 2020-11-15 2021-03-08 Outpatient C JOHN, [facility] PT [id number] [place] 08:00:00 23:59:00 [facility] 2021-03-06 2021-03-06 Emergency E DONN, [facility] WWECC [id number] [place] 21:10:00 22:50:00 ANTHONY [facility] 2021-02-27 2021-02-27 Outpatient ARROYO, [facility] [id number] [facility] 09:58:00 09:58:00 ealt 2021-02-27 2021-02-27 Outpatient ARROYO, [facility] [id number] Access[facility] 09:58:00 09:58:00 e2-7gv4-94z 7d9-9475-4 ealth 0-ty2krz193 3fa-efed4c 0f4 8a8dd6 2021-02-26 2021-02-26 Outpatient ARROYO, [facility] [id number] [facility] 15:00:00 15:00:00 ealt 2021-02-26 2021-02-26 Outpatient ARROYO, [facility] [id number] [facility] 15:00:00 15:00:00 e2-8km0-71b 995-453e-a ealth 0-nj0qvr527 7e9-788jtc 0f4 9pv352 2021-02-17 2021-02-17 Emergency E RAMILA, [facility] [id number] [place] 14:53:00 16:10:00 JADA [facility] 2021-02-07 2021-02-07 Emergency Oswald, 1.2.840.1 [id number] Methodi 11:10:00 16:11:00 Jose Juan 90889.1.[address] Sangeeth 3.430.2.7 Hospi ta Joywin .3.706975 l .8 2020-11-30 2020-12-03 Emergency Oswald, Jose Juan Rodgers in 1.2.840.1 [id number] Methodi 13:38:00 15:23:00 Nazanin Ponce 17147.1.[address] 3.430.2.7 Hospit a .3.719615 l .8 2020-12-03 2020-12-03 Anesthesia Jackson, 1.2.840.1 [id number] Methodi 10:06:00 10:38:00 Event Yaleanna 24892.1.[address] Katie 3.430.2.7 Hospit a .3.438185 l .8 2020-12-03 2020-12-03 Surgery Puchakayala 1.2.840.1 [id number] Methodi 09:30:00 09:55:00 , Surjit [address]9400.1.[address] Shea 3.430.2.7 Hospit a .3.791481 l .8 2020-11-30 2020-11-30 Outpatient C MAINOR, CARLOS [facility] PT [id number] [place] 08:28:00 08:28:00 [facility] 2020-10-30 2020-10-30 Emergency E DEDE [facility] [id number] [place] 22:44:00 23:45:00 KARTHIKEYAN [facility] 2020-09-21 2020-09-21 Outpatient THOMAS ALICIA [facility] [id number] [facility] 08:31:00 08:31:00 ealt 2020-09-21 2020-09-21 Outpatient THOMAS ALICIA [facility] [id number] Access[facility] 08:31:00 08:31:00 e2-8aq8-21i 87a-43a7-b ealth 0-mc6cap295 bf6-96b61b 0f4 f320c5 2020-09-13 2020-09-13 Outpatient KIRSTEN ARROYO [facility] [id number] Access[facility] 14:22:00 14:22:00 e2-7ge9-25s e6w-6eww-s ealt 0-uq5gmb744 f61-i329s4 0f4 1dbadb 2020-07-11 2020-07-11 Emergency E BRADSHAW, [facility] [id number] [place] 08:15:00 18:45:00 [facility] 2020-06-27 2020-06-27 Outpatient LIND, [facility] [id number] [facility] 15:11:00 15:11:00 RAINA [facility] 2020-06-27 2020-06-27 Outpatient LIND, [facility] [id number] [id number] Access[facility] 15:11:00 15:11:00 RAINA e2-6rt9-16c 7h5-42g6-9 ealt 0-kw2srn058 bf6-4be42b 0f4 [id number] 2020-06-23 2020-06-23 Outpatient LIND, [facility] [id number] [facility] 13:45:00 13:45:00 RAINA 11 [facility] 2020-06-19 2020-06-19 Outpatient LIND, [facility] [id number] [facility] 13:31:00 13:31:00 [facility] 2020-06-19 2020-06-19 Outpatient LIND, [facility] [id number] Access[facility] 13:31:00 13:31:00 RAINA e2-4po6-51s 987-44fd-9 [facility] 0-tp4mym875 7m0-l28710 0f4 mf1441 2020-06-16 2020-06-16 Emergency E ANGELA, [facility] [id number] [facility] 17:07:00 18:30:00 [facility] 2020-05-09 2020-05-09 Office [facility], [facility] 1.2.840.114 [id number] 10:39:00 12:28:08 Visit Andriy Jemma 350.1.13.21 0.2.7.2.686 [id number] [facility] 2020-05-09 2020-05-09 Office [facility], [facility] 1.2.840.114 [id number] [facility] 10:39:00 12:28:08 Visit Andriy Jemma 350.1.13.21 Co llege 0.2.7.2.686 of [phone] [facility] 510 e 2020-05-02 2020-05-02 Outpatient [facility] [id number] [facility] 07:40:00 07:40:00 RAINA [facility] 2020-05-02 2020-05-02 Outpatient [facility] [id number] Access[facility] 07:40:00 07:40:00 RAINA e2-4jv6-48e 3fa-4376-b [facility] 0-la0svz712 30f-33o650 0f4 4bl513 2020-04-26 2020-04-26 Outpatient [facility] [id number] [facility] 17:30:00 17:30:00 RAINA [facility] 2020-04-26 2020-04-26 OFFICE/OUT [facility] rihb62cd-z3 0 [id number] Access[facility] 17:30:00 17:30:00 PATIENT RAINA e9-44df-910 2eb-4268-9 [facility] VISIT EST 4-4d5q5pl66 ab4-be1fd9 c82 140bd5 2020-04-25 2020-04-25 Telephone Surinder, 1.2.840.1 [id number] Methodi 00:00:00 00:00:00 Kinsey 18668.1.1 413 3.430.2.7 [facility] a .3.771079 l .8 2020-04-03 2020-04-03 Emergency ER [facility] Emergency [id number] SLS 13:33:00 13:33:00 2019-11-24 2019-11-24 Emergency E JOSEPH [facility] ECC [id number] [place] 16:16:00 18:53:00 [facility] 2019-08-25 2019-08-25 OFFICE/OUT ALICIA, THOMAS MELENDEZHC [id number] Access[facility] 13:00:00 13:00:00 PATIENT e2-7py5-07g 127-46d5-8 ealth VISIT EST 0-qb3thp152 47b-d5bc71 0f4 e6f56e 2019-08-23 2019-08-23 Outpatient Johanna LOPEZ [facility] LAB [id number] [place] 13:51:00 23:59:00 [facility] 2019-08-09 2019-08-09 Outpatient Johanna LOPEZ [facility] [id number] [place] 10:58:00 23:59:00 [facility] 2019-08-09 2019-08-09 Outpatient ALICIA, [facility]OMAS MELENDEZHC [id number] Access[facility] 11:54:00 11:54:00 e2-9uc8-82e y35-39kf-7 ealth 0-ui1qdc852 03e-0ac2cb 0f4 bbb9cd 2019-07-27 2019-07-27 Outpatient ALICIA, [facility] [id number] [facility] 08:36:00 08:36:00 e2-6ue1-74j 01b-49cd-b ealth 0-ak1ose533 2i0-ty5a5h 0f4 9oh666 2019-07-26 2019-07-26 OFFICE/OUT ALICIA, [facility] [id number] [id number] [facility] 10:00:00 10:00:00 PATIENT e2-9nq7-76y p18-3952-x ealth VISIT NEW 0-uw3ghy112 8cd-7117e6 0f4 3u984n 2019-07-06 2019-07-06 Outpatient C JOHN, [facility] [id number] [place] 15:11:00 23:59:00 RAMIRO Medic [facility] 2019-06-06 2019-06-06 Emergency E JOSEPH, [facility] ECC [id number] [place] 08:50:00 10:45:00 [facility] 2019-06-05 2019-06-05 Emergency E RUIZ, [facility] ECC [id number] [place] 18:16:00 20:00:00 [facility] 2019-05-28 2019-05-28 Emergency E TDSANDRA, [facility] ECC [id number] [place] 17:43:00 18:58:00 HASDREW [facility] 2019-05-19 2019-05-19 Outpatient C JUAN F FERNANDES, [facility] RAD 096 [id number] [place] 12:14:00 23:59:00 DONAVAN [facility] 2019-05-12 2019-05-14 Outpatient E SHAQUILLE, [facility] MED 081 [id number] [place] 21:11:00 19:00:00 JARVIS [facility] 2019-05-04 2019-05-04 Emergency E EMANI [facility] ECC [id number] [place] 16:50:00 18:25:00 [facility] 2019-03-08 2019-03-08 Emergency E MHFB [facility]FB 7501 [facility]FB 18:03:00 18:03:00 2019-02-20 2019-02-20 Emergency E OBED [facility] ECC [id number] [place] 17:51:00 21:47:00 JOSE JUAN [facility] 2019-02-04 2019-02-04 Emergency E EMANI [facility] ECC [id number] [place] 15:41:00 16:20:00 [facility] 2018-12-28 2018-12-28 Emergency E KRYSTLE IL [facility] ECC [id number] [place] 07:17:00 09:30:00 [facility] 2018-12-05 2018-12-05 Emergency E KRYSTLE LI [facility] [id number] [place] 10:45:00 14:13:00 [facility] 2017-06-12 2017-06-12 Outpatient Champion_P [facility] [address] [place] 00:00:00 00:00:00 [id number] [facility] Results Test Description Test Time Test Comments Results Result Comments Source POCT TEST 2023-01-13 23:29:00 Test Item Value Reference Range Interpretation Comme nts POCT PREG (test code = 1605) Negative On board controls acceptable with C Line (test code = 3574) Yes POCT PREG LOT # (test code = 3575) HCG [id number] POCT PREG TEST DATE (test code = 3576) 05/16/2024 Lab Interpretation (test code = 07965-5) [facility]C, EXTERNAL DRAIN 2022-12-25 16:14:00Suspected ptosis of right kidney causing severe chronic pain. Please place right percutaneous nephrostomy tube to aid drainage. 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 IMPRESSION: Right nephrostomy tube placement. Plan: Drain to gravity. PROCEDURE SUMMARY- Target organ: Unilateral cabazon kidney- Image-guided placement of genitourinary catheter(s)- Additional procedure(s): None PROCEDURE DETAILS: Pre-procedureConsent: Informed consent for the procedure including risks, benefits and alternatives was obtained and time-out was performed prior to the procedure.Preparation:The site was prepared and draped using maximal sterile barrier technique including cutaneous antisepsis. Anesthesia/sedationLevel of anesthesia/sedation: Moderate sedation (conscious sedation)Anesthesia/sedation administered by: Independent trained observer under attending supervision with continuous monitoring of the patient\\X2019\\s level of consciousness and physiologic statusTotal intra-service sedation time (minutes): 25 Right genitourinary catheter placementLocal anesthesia was administered. A n eedle was advanced into the renal collecting system under ultrasound and fluoroscopy guidance. A wire was advanced, the tract was serially dilated and a nephrostomy tube was placed. Contrast injection was performed.Genitourinary catheter placed: 8.5 Sinhala multipurpose Findings: Pigtail formed in the renal pelvisExternal catheter securement: Non-absorbable suture ContrastContrast agent: Isovue 300 Radiation DoseFluoroscopy time (minutes): 2.9 Reference air kerma (mGy): 88.3 Additional DetailsAdditional description of procedure: NoneEquipment details: NoneSpecimens removed: None. A sample was not sent for analysis.Estimated blood loss (mL): Less than 5 Signed: Ramirez Ernst MDReport Verified Date/Time: 12/25/2022 16:14:16 Reading Location: [facility] C013V Neuro Reading Room URINALYSIS W SPECIFIC [id number] 20:10:00 Test Item Value Reference Range Interpretation Comments POCT U SP GRAV (test code = 1.020 mg/dl 1.005-1.025 3255) POCT PH U (test code = 3254) 5 mg/dl 5-8 POCT U LEUK EST (test code = + Negative - Negative 3263) POCT U NIT (test code = 3262) Negative Negative - Negative POCT U PROT (test code = 500 Negative - Negative 3259) POCT U GLU (test code = 3256) Normal Negative - Negative POCT U KETONE (test code = Negative Negative - Negative 3258) POCT U UROBILI (test code = Normal 0.2-1 3260) POCT U BILI (test code = Negative Negative - Negative 3261) POCT U BLD (test code = 3257) 250 Negative - Negative POCT U COLOR (test code = 3266) POCT U APPEAR (test code = 3267) Lab Interpretation (test code Abnormal = 31260-2) [facility] W SPECIFIC [id number] 20:10:00 Test Item Value Reference Range Interpretation Comments POCT U SP GRAV (test code = 1.020 mg/dl 1.005-1.025 3255) POCT PH U (test code = 3254) 5 mg/dl 5-8 POCT U LEUK EST (test code = + Negative - Negative 3263) POCT U NIT (test code = 3262) Negative Negative - Negative POCT U PROT (test code = 500 Negative - Negative 3259) POCT U GLU (test code = 3256) Normal Negative - Negative POCT U KETONE (test code = Negative Negative - Negative 3258) POCT U UROBILI (test code = Normal 0.2-1 3260) POCT U BILI (test code = Negative Negative - Negative 3261) POCT U BLD (test code = 3257) 250 Negative - Negative POCT U COLOR (test code = 3266) POCT U APPEAR (test code = 3267) Lab Interpretation (test code Abnormal = 25041-6) [facility]OLIC [id number] 07:02:00 Test Item Value Reference Range Interpretation Comments SODIUM (BEAKER) 137 meq/L 136-145 (test code = 381) POTASSIUM 3.9 meq/L 3.5-5.1 (BEAKER) (test code = 379) CHLORIDE (BEAKER) 104 meq/L 98-107 (test code = 382) CO2 (BEAKER) 21 meq/L 22-29 L (test code = 355) BLOOD UREA 9 mg/dL 7-21 NITROGEN (BEAKER) (test code = 354) CREATININE 0.83 mg/dL 0.57-1.25 (BEAKER) (test code = 358) GLUCOSE RANDOM 108 mg/dL 70-105 H (BEAKER) (test code = 652) CALCIUM (BEAKER) 8.5 mg/dL 8.4-10.2 (test code = 697) EGFR (BEAKER) 90 Interpretatio n of eGFR (test code = [...] not appl icable for dialysis 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 [employer] ID - ADMINCBC W/PLT COUNT & AUTO [id number] 06:19:17 Test Item Value Reference Range Interpretation Comments WHITE BLOOD CELL COUNT (BEAKER) 7.7 K/ L 3.5-10.5 (test code = 775) RED BLOOD CELL COUNT (BEAKER) 4.15 M/ L 3.93-5.22 (test code = 761) HEMOGLOBIN (BEAKER) (test code = 12.5 GM/DL 11.2-15.7 410) HEMATOCRIT (BEAKER) (test code = 36.9 % 34.1-44.9 411) MEAN CORPUSCULAR VOLUME (BEAKER) 89 fL 79-95 (test code = 753) MEAN CORPUSCULAR HEMOGLOBIN 30.1 pg 25.6-32.2 (BEAKER) (test code = 751) MEAN CORPUSCULAR HEMOGLOBIN CONC 33.9 GM/DL 32.2-35.5 (BEAKER) (test code = 752) RED CELL DISTRIBUTION WIDTH 14.0 % 11.7-14.4 (BEAKER) (test code = 412) PLATELET COUNT (BEAKER) (test 300 K/CU MM 150-450 code = 756) MEAN PLATELET VOLUME (BEAKER) 11.6 fL 9.4-12.3 (test code = 754) NUCLEATED RED BLOOD CELLS 0 /100 WBC 0-0 (BEAKER) (test code = 413) NEUTROPHILS RELATIVE PERCENT 59 % (BEAKER) (test code = 429) LYMPHOCYTES RELATIVE PERCENT 29 % (BEAKER) (test code = 430) MONOCYTES RELATIVE PERCENT 9 % (BEAKER) (test code = 431) EOSINOPHILS RELATIVE PERCENT 3 % (BEAKER) (test code = 432) BASOPHILS RELATIVE PERCENT 1 % (BEAKER) (test code = 437) NEUTROPHILS ABSOLUTE COUNT 4.51 K/ L 1.56-6.13 (BEAKER) (test code = 670) LYMPHOCYTES ABSOLUTE COUNT 2.22 K/ L 1.18-3.74 (BEAKER) (test code = 414) MONOCYTES ABSOLUTE COUNT (BEAKER) 0.65 K/ L 0.24-0.36 H (test code = 415) EOSINOPHILS ABSOLUTE COUNT 0.19 K/ L 0.04-0.36 (BEAKER) (test code = 416) BASOPHILS ABSOLUTE COUNT (BEAKER) 0.05 K/ L 0.01-0.08 (test code = 417) IMMATURE GRANULOCYTES-RELATIVE 0.80 % 0.00-1.00 PERCENT (BEAKER) (test code = 2801) PROTHROMBIN [id number] 07:38:11 Test Item Value Reference Range Interpretation Comments PROTIME (BEAKER) (test code = 12.6 seconds 11.9-14.2 759) INR (BEAKER) (test code = 370) 1.00 <=5.90 RECOMMENDED COUMADIN/WARFARIN INR THERAPY RANGESSTANDARD DOSE: 2.0 - 3.0 Includes: PROPHYLAXIS for venous thrombosis, systemic embolization; TREATMENT for venous thrombosis and/or pulmonary embolus.HIGH RISK: Target INR is 2.5-3.5 for patients with mechanical heart valves.CBC W/PLT COUNT & AUTO [id number] 07:31:04 Test Item Value Reference Range Interpretation Comments WHITE BLOOD CELL COUNT (BEAKER) 8.8 K/ L 3.5-10.5 (test code = 775) RED BLOOD CELL COUNT (BEAKER) 4.28 M/ L 3.93-5.22 (test code = 761) HEMOGLOBIN (BEAKER) (test code = 12.8 GM/DL 11.2-15.7 410) HEMATOCRIT (BEAKER) (test code = 38.9 % 34.1-44.9 411) MEAN CORPUSCULAR VOLUME (BEAKER) 91 fL 79-95 (test code = 753) MEAN CORPUSCULAR HEMOGLOBIN 29.9 pg 25.6-32.2 (BEAKER) (test code = 751) MEAN CORPUSCULAR HEMOGLOBIN CONC 32.9 GM/DL 32.2-35.5 (BEAKER) (test code = 752) RED CELL DISTRIBUTION WIDTH 14.1 % 11.7-14.4 (BEAKER) (test code = 412) PLATELET COUNT (BEAKER) (test 338 K/CU MM 150-450 code = 756) MEAN PLATELET VOLUME (BEAKER) 10.8 fL 9.4-12.3 (test code = 754) NUCLEATED RED BLOOD CELLS 0 /100 WBC 0-0 (BEAKER) (test code = 413) NEUTROPHILS RELATIVE PERCENT 59 % (BEAKER) (test code = 429) LYMPHOCYTES RELATIVE PERCENT 27 % (BEAKER) (test code = 430) MONOCYTES RELATIVE PERCENT 8 % (BEAKER) (test code = 431) EOSINOPHILS RELATIVE PERCENT 4 % (BEAKER) (test code = 432) BASOPHILS RELATIVE PERCENT 1 % (BEAKER) (test code = 437) NEUTROPHILS ABSOLUTE COUNT 5.17 K/ L 1.56-6.13 (BEAKER) (test code = 670) LYMPHOCYTES ABSOLUTE COUNT 2.38 K/ L 1.18-3.74 (BEAKER) (test code = 414) MONOCYTES ABSOLUTE COUNT (BEAKER) 0.70 K/ L 0.24-0.36 H (test code = 415) EOSINOPHILS ABSOLUTE COUNT 0.39 K/ L 0.04-0.36 H (BEAKER) (test code = 416) BASOPHILS ABSOLUTE COUNT (BEAKER) 0.05 K/ L 0.01-0.08 (test code = 417) IMMATURE GRANULOCYTES-RELATIVE 1.10 % 0.00-1.00 H PERCENT (BEAKER) (test code = 2801) [id number] 07:09:55 Test Item Value Reference Range Interpretation Comments MAGNESIUM (BEAKER) (test code = 2.1 mg/dL 1.6-2.6 627) Mixer [employer] ID - [id number] 07:09:55 Test Item Value Reference Range Interpretation Comments PHOSPHORUS (BEAKER) (test code = 2.9 mg/dL 2.3-4.7 604) Mix[employer] ID - ADMINBASIC METABOLIC [id number] 07:09:54 Test Item Value Reference Range Interpretation Comments SODIUM (BEAKER) 135 meq/L 136-145 L (test code = 381) POTASSIUM 3.7 meq/L 3.5-5.1 (BEAKER) (test code = 379) CHLORIDE (BEAKER) 105 meq/L 98-107 (test code = 382) CO2 (BEAKER) 20 meq/L 22-29 L (test code = 355) BLOOD UREA 9 mg/dL 7-21 NITROGEN (BEAKER) (test code = 354) CREATININE 0.83 mg/dL 0.57-1.25 (BEAKER) (test code = 358) GLUCOSE RANDOM 119 mg/dL 70-105 H (BEAKER) (test code = 652) CALCIUM (BEAKER) 8.7 mg/dL 8.4-10.2 (test code = 697) EGFR (BEAKER) 90 Interpretatio n of eGFR (test code = mL/min/1.73 values Stage De scription 1092) sq m Result G1 Caitlin l or high >=90 G2 Mildly decreased 60-89 G3a Mildl y to moderately 45-5 9 G3b Moderately to s everely 30-44 G4 Severl y decreased 15-29 G5 Kidne y failure <15Reported eGF R is based on the CKD-EPI 2020 equation that d oes not use a race coefficientEsti mated GFR is not as accur ate as Creatinine Jaleesa enciso in predicting glom erular filtration rate . Estimated GFR is not appl icable for dialysis 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 ID - ADMINCBC W/PLT COUNT & AUTO [id number] 06:13:59 Test Item Value Reference Range Interpretation Comments WHITE BLOOD CELL COUNT (BEAKER) 16.0 K/ L 3.5-10.5 H (test code = 775) RED BLOOD CELL COUNT (BEAKER) 4.42 M/ L 3.93-5.22 (test code = 761) HEMOGLOBIN (BEAKER) (test code = 13.0 GM/DL 11.2-15.7 410) HEMATOCRIT (BEAKER) (test code = 38.9 % 34.1-44.9 411) MEAN CORPUSCULAR VOLUME (BEAKER) 88 fL 79-95 (test code = 753) MEAN CORPUSCULAR HEMOGLOBIN 29.4 pg 25.6-32.2 (BEAKER) (test code = 751) MEAN CORPUSCULAR HEMOGLOBIN CONC 33.4 GM/DL 32.2-35.5 (BEAKER) (test code = 752) RED CELL DISTRIBUTION WIDTH 14.4 % 11.7-14.4 (BEAKER) (test code = 412) PLATELET COUNT (BEAKER) (test 322 K/CU MM 150-450 code = 756) MEAN PLATELET VOLUME (BEAKER) 11.4 fL 9.4-12.3 (test code = 754) NUCLEATED RED BLOOD CELLS 0 /100 WBC 0-0 (BEAKER) (test code = 413) NEUTROPHILS RELATIVE PERCENT 76 % (BEAKER) (test code = 429) LYMPHOCYTES RELATIVE PERCENT 18 % (BEAKER) (test code = 430) MONOCYTES RELATIVE PERCENT 6 % (BEAKER) (test code = 431) EOSINOPHILS RELATIVE PERCENT 0 % (BEAKER) (test code = 432) BASOPHILS RELATIVE PERCENT 0 % (BEAKER) (test code = 437) NEUTROPHILS ABSOLUTE COUNT 12.11 K/ L 1.56-6.13 H (BEAKER) (test code = 670) LYMPHOCYTES ABSOLUTE COUNT 2.88 K/ L 1.18-3.74 (BEAKER) (test code = 414) MONOCYTES ABSOLUTE COUNT (BEAKER) 0.89 K/ L 0.24-0.36 H (test code = 415) EOSINOPHILS ABSOLUTE COUNT 0.00 K/ L 0.04-0.36 L (BEAKER) (test code = 416) BASOPHILS ABSOLUTE COUNT (BEAKER) 0.03 K/ L 0.01-0.08 (test code = 417) IMMATURE GRANULOCYTES-RELATIVE 0.70 % 0.00-1.00 PERCENT (BEAKER) (test code = 2801) Sputum [id number] 18:41:53 Test Item Value Reference Range Interpretation Comments SPUTUM CULTURE 1+ Respiratory layla: (test code = 622-1) Commensal upper respiratory microorganisms only. Gram stain (test Few Epithelial cells code = 664-3) LEXA (test code = Bacterial pathogens LEXA) associated with lower respiratory infections were not identified, which include Pseudomonas aeruginosa and Staphylococcus aureus (MRSA or MSSA). [facility] (NA, K, CL, CO2, GLUCOSE, BUN, CREATININE, CA)2022-11-24 11:01:59 Test Item Value Reference Range Interpretation Comments NA (test code = 138 mmol/L 135-145 [id number]) K (test code = 3.9 mmol/L 3.5-5.0 6662609165) CL (test code = 104 mmol/L 98-108 8091575577) CO2 TOTAL (test code = 25 mmol/L 23-31 1296417864) AGAP (test code = 9 2-16 0469115505) BUN (test code = 14 mg/dL 7-23 8971076893) GLUCOSE (test code = 99 mg/dL 70-110 6935206906) CREATININE (test code = 0.76 mg/dL 0.50-1.04 7221453986) CALCIUM (test code = 8.2 mg/dL 8.6-10.6 L 9912069232) eGFR (test code = 83.5 mL/min/1.73m2 0973840189) LEXA (test code = LEXA) Association of [...] tests). Lab Interpretation Abnormal (test code = 62218-7) [facility] Test Item Value Reference Range Interpretation Comments MAGNESIUM (test code = 1034824815) 2.3 mg/dL 1.7-2.4 Lab Interpretation (test code = Normal 14049-3) [facility] WITH [id number] 10:19:55 Test Item Value Reference Range Interpretation Comments WBC (test code = 11.06 See_Comment [Automated 7390-2) message] The sy stem which generated this result transmitted reference range : 4.30 - 11.10 10*3/?L. The reference range was not used to interpret this result as normal/abnormal . RBC (test code = 4.10 See_Comment [Automated 309-8) message] The sy stem which generated this result transmitted reference range : 3.93 - 5.25 10*6/?L. The reference range was not used to interpret this result as normal/abnormal . HGB (test code = 12.3 g/dL 11.6-15.0 718-7) HCT (test code = 37.7 % 35.7-45.2 4544-3) MCV (test code = 92.0 fL 80.6-95.5 787-2) MCH (test code = 30.0 pg 25.9-32.8 785-6) MCHC (test code = 32.6 g/dL 31.6-35.1 786-4) RDW-SD (test code = 49.1 fL 39.0-49.9 76374-1) RDW-CV (test code = 14.6 % 12.0-15.5 788-0) PLT (test code = 329 See_Comment [Automated 957-3) message] The sy stem which generated this result transmitted reference range : 166 - 358 10*3/ ?L. The reference r geoffrey was not used to interpret this result as normal/abnormal . MPV (test code = 11.1 fL 9.5-12.9 08660-0) NRBC/100 WBC (test 0.0 See_Comment [Automat ed code = 5161642337) message] The system which generated this result transmitted reference range : 0.0 - 10.0 /100 WBCs. The refer ence range was not u sed to interpret th is result as normal/abnormal . NRBC x10^3 (test code See_Comment [Auto mated = 7379245366) message] The s ystem which generated this result transmitted reference range : 10*3/?L. The reference range was not used to interpret this result as normal/abnormal . GRAN MAT (NEUT) % 54.1 % (test code = 770-8) IMM GRAN % (test code 1.40 % = 5799753804) LYMPH % (test code = 33.9 % 736-9) MONO % (test code = 6.0 % 5905-5) EOS % (test code = 4.1 % 713-8) BASO % (test code = 0.5 % 706-2) GRAN MAT x10^3(ANC) 6.00 10*3/uL 1.88-7.09 (test code = 7480575071) IMM GRAN x10^3 (test 0.15 10*3/uL 0.00-0.06 H code = 8322156011) LYMPH x10^3 (test code 3.75 10*3/uL 1.32-3.29 H = 731-0) MONO x10^3 (test code 0.66 10*3/uL 0.33-0.92 = 742-7) EOS x10^3 (test code = 0.45 10*3/uL 0.03-0.39 H 711-2) BASO x10^3 (test code 0.05 10*3/uL 0.01-0.07 = 704-7) Lab Interpretation Abnormal (test code = 15100-5) [facility]23 22:54:25 Test Item Value Reference Range Interpretation Comments HGB A1C (test code = 5.5 % 4.0-5.7 4548-4) LEXA (test code = LEXA) Reference RangesNormal: <5.7%Prediabetes: 5.7 - 6.4%Diabetes: > 6.5% Lab Interpretation (test Normal code = 47291-2) [facility] 18:56:43 Test Item Value Reference Range Interpretation Comments Procalcitonin (test <=0.07 code = 6254068351) LEXA (test code = LEXA) INTERPRETATION OF PROCALCITONIN RESULTS IN ADULTS >= 18 YEARS OF AGE Initiation and discontinuation of antibiotics on patients with suspected or confirmed Lower Respiratory Tract Infection in Adults >= 18 years of age. + +-------- --------+ + -----+|Procalcitonin |Interpretation ?|Antibiotic ? ? |Considerations ? |ng/mL ? | ?|recommendation | ? + +-------- --------+ + -----+| <0.1 ? | Bacterial ? ? ?| Strongly ? ? ?| ? | ?| infection very | discouraged ? | Overruling: ? | ?| unlikely ? ? ? | ? | ? Clinically unstable ? ? ? + +-------- --------+ + ? High risk for adverse ? ? | <0.25 ?| Bacterial ? ? ?| Discouraged ? | ? outcome ? | ?| infection ? ? ?| ? | ? SEE IMPORTANT NOTE ?| ?| unlikely ? ? ? | ? | ? + +-------- --------+ + -----+| >=0.25 ? ? ? | Bacterial ? ? ?| Encouraged ? ?| ? | ?| infection ? ? ?| ? | ? | ?| likely ? | ? | Consider treatment failure ?+ +------- ---------+ -+ if levels does not decrease | >0.5 ? | Bacterial ? ? ?| Strongly ? ? ?| appropriately ? | ?| infection very | encouraged ? ?| ? | ?| likely ? | ? | ? + +-------- --------+ + -----+ Discontinuation of antibiotics in high-acuity patients with suspected or confirmed sepsis in Adults >= 18 years of age. + +-------- --------+ + -----+|Procalcitonin |Interpretation ?|Antibiotic ? ? |Considerations ? |ng/mL ? | ?|recommendation | ? + +-------- --------+ + -----+| <0.25 ?| Bacterial ? ? ?| Strongly ? ? ?| ? | ?| infection very | discouraged ? | Overruling: ? | ?| unlikely ? ? ? | ? | ? Clinically unstable ? ? ? + +-------- --------+ + ? High risk for adverse ? ? | <0.5 or drop | Bacterial ? ? ?| Discouraged ? | ? outcome ? | >80% from ? ?| infection ? ? ?| ? | ? SEE IMPORTANT NOTE ?| highest PCT ?| unlikely ? ? ? | ? | ? | level ?| ?| ? | ? + +-------- --------+ + -----+| >=0.5 ?| Bacterial ? ? ?| Encouraged ? ?| ? | ?| infection ? ? ?| ? | ? | ?| likely ? | ? | Consider treatment failure ?+ +------- ---------+ -+ if levels does not decrease | >1.0 ? | Bacterial ? ? ?| Strongly ? ? ?| appropriately ? | ?| infection very | encouraged ? ?| ? | ?| likely ? | ? | ? + +-------- --------+ + -----+ Percentage of drop of Procalcitonin calculation for Discontinuation of antibiotics in high-acuity patients with suspected or confirmed sepsis in Adults >= 18 years of age. ? Procalcitonin highest{}-Procalcitonin current{}Delta Procalcitonin = x100% ? Procalcitonin current {} IMPORTANT NOTE: Procalcitonin may be elevated without bacterial infection by physiologic stress related to trauma, alcazar, chronic dialysis, metastatic cancer, surgery in the past seven days, malaria, some fungal infections, and some forms of vasculitis. The interpretation algorithm may not apply to patients with immunosuppression (equivalent of >10 mg of prednisone daily), HIV with CD4 cell count < 350 cells/mm3, active malignancy on systemic chemotherapy, solid organ transplant or hematopoietic stem cell transplantation, or hospital acquired pneumonia. Additionally, some clinical trials of procalcitonin have excluded patients with shock requiring vasopressor use, acute respiratory failure requiring mechanical ventilation, or those with known lung abscess/empyema. For further information please refer to:[email or web address] Lab Interpretation Normal (test code = 85924-5) [facility] (NA, K, CL, CO2, GLUCOSE, BUN, CREATININE, CA)2022-11-23 11:29:09 Test Item Value Reference Range Interpretation Comments NA (test code = 137 mmol/L 135-145 3847245990) K (test code = 3.7 mmol/L 3.5-5.0 0988685010) CL (test code = 105 mmol/L 98-108 6731593247) CO2 TOTAL (test code = 26 mmol/L 23-31 5990665908) AGAP (test code = 6 2-16 2327564878) BUN (test code = 10 mg/dL 7-23 0735360749) GLUCOSE (test code = 127 mg/dL 70-110 H 9164800542) CREATININE (test code = 0.63 mg/dL 0.50-1.04 4216538219) CALCIUM (test code = 8.4 mg/dL 8.6-10.6 L 1545050363) eGFR (test code = 103.6 mL/min/1.73m2 2177095793) LEXA (test code = LEXA) Association of [...] tests). Lab Interpretation Abnormal (test code = 81271-2) [facility] with [id number] 10:23:44 Test Item Value Reference Range Interpretation Comments WBC (test code = 22.61 See_Comment H [Automated 8434-2) message] The system which generated this result transmit abdias reference range : 4.30 - 11.10 10*3/?L. The reference range was not used to interpret this result as normal/abnormal . RBC (test code = 3.97 See_Comment [Automated 541-8) message] The system which generated this result transmit abdias reference range : 3.93 - 5.25 10*6/?L. The reference range was not used to interpret this result as normal/abnormal . HGB (test code = 12.0 g/dL 11.6-15.0 718-7) HCT (test code = 36.0 % 35.7-45.2 4544-3) MCV (test code = 90.7 fL 80.6-95.5 787-2) MCH (test code = 30.2 pg 25.9-32.8 785-6) MCHC (test code = 33.3 g/dL 31.6-35.1 786-4) RDW-SD (test code = 49.1 fL 39.0-49.9 37436-7) RDW-CV (test code = 14.7 % 12.0-15.5 788-0) PLT (test code = 327 See_Comment [Automated 777-3) message] The system which generated this result transmit abdias reference range : 166 - 358 10*3/ ?L. The reference range was not u sed to interpret th is result as normal/abnormal . MPV (test code = 10.8 fL 9.5-12.9 35413-7) NRBC/100 WBC (test 0.0 See_Comment [Automat ed code = 6456151988) message] The system which generated this result transmit abdias reference range : 0.0 - 10.0 /100 WBCs. The reference range was not used to interpret this result as normal/abnormal . NRBC x10^3 (test code See_Comment [Auto mated = 0625280785) message] The system which generated this result transmit abdias reference range : 10*3/?L. The reference range was not used to interpret this result as normal/abnormal . GRAN MAT (NEUT) % 75.9 % (test code = 770-8) IMM GRAN % (test code 1.50 % = 9189030377) LYMPH % (test code = 15.5 % 736-9) MONO % (test code = 6.2 % 5905-5) EOS % (test code = 0.6 % 713-8) BASO % (test code = 0.3 % 706-2) GRAN MAT x10^3(ANC) 17.17 10*3/uL 1.88-7.09 H (test code = 9662934588) IMM GRAN x10^3 (test 0.34 10*3/uL 0.00-0.06 H code = 9367018524) LYMPH x10^3 (test code 3.50 10*3/uL 1.32-3.29 H = 731-0) MONO x10^3 (test code 1.40 10*3/uL 0.33-0.92 H = 742-7) EOS x10^3 (test code = 0.13 10*3/uL 0.03-0.39 711-2) BASO x10^3 (test code 0.07 10*3/uL 0.01-0.07 = 704-7) Lab Interpretation Abnormal (test code = 34904-8) [facility] URINALYSIS W SPECIFIC [id number] 17:10:00 Test Item Value Reference Range Interpretation Comments POCT U SP GRAV (test code = 1.010 mg/dl 1.005-1.025 3255) POCT PH U (test code = 3254) 7 mg/dl 5-8 POCT U LEUK EST (test code = trace Negative - Negative 3263) POCT U NIT (test code = 3262) negative Negative - Negative POCT U PROT (test code = ++/100 Negative - Negative 3259) POCT U GLU (test code = 3256) normal Negative - Negative POCT U KETONE (test code = negative Negative - Negative 3258) POCT U UROBILI (test code = normal 0.2-1 3260) POCT U BILI (test code = negative Negative - Negative 3261) POCT U BLD (test code = 3257) about 250 Negative - Negative POCT U COLOR (test code = light red 3266) POCT U APPEAR (test code = cloudy 3267) [facility] URINALYSIS W SPECIFIC [id number] 17:10:00 Test Item Value Reference Range Interpretation Comments POCT U SP GRAV (test code = 1.010 mg/dl 1.005-1.025 3255) POCT PH U (test code = 3254) 7 mg/dl 5-8 POCT U LEUK EST (test code = trace Negative - Negative 3263) POCT U NIT (test code = 3262) negative Negative - Negative POCT U PROT (test code = ++/100 Negative - Negative 3259) POCT U GLU (test code = 3256) normal Negative - Negative POCT U KETONE (test code = negative Negative - Negative 3258) POCT U UROBILI (test code = normal 0.2-1 3260) POCT U BILI (test code = negative Negative - Negative 3261) POCT U BLD (test code = 3257) about 250 Negative - Negative POCT U COLOR (test code = light red 3266) POCT U APPEAR (test code = cloudy 3267) [facility] [id number] 01:21:00 Test Item Value Reference Range Interpretation Comments POCT PREG (test code = 1605) negative On board controls acceptable with present C Line (test code = 3574) POCT PREG LOT # (test code = 3575) [id number] POCT PREG TEST DATE (test 11/09/2023 code = 3576) Lab Interpretation (test code = Normal 74554-3) [facility]) 2022-07-17 06:56:10 Test Item Value Reference Range Interpretation Comments SARS-COV2/RT-PCR Negative Negative The SARS-Co V-2 target (test code = nucleic acids a re not 6351428) detected in thi s specimen. Negative result [...] This SARS CoV-2 test is a rapid, real-time RT-PC R test intended for th e qualitative detection [...] revoked sooner. Fact Sheet for Healthcare Providers: https://www.[employer] m/Documents/Xpert%20Xpress%20SARS%20CoV-2/Fact%20Sheets/302-6161%81CWZX-GVW-8%20 HEALTHCARE%20PROVIDERS%20FACT%20SHEET.pdf Fact Sheet for Healthcare Patients: https://www.Outbrain/Documents/Xpert%20Xp ress%20SARS%20CoV-2/Fact%20Sheets/302-3801%63EGHB-CMW-8%20PATIENT%20FACT%20SHEET .pdfURINALYSIS W/ REFLEX URINE [id number] 17:10:08 Test Item Value Reference Range Interpretation Comments COLOR (BEAKER) (test code = 470) Colorless CLARITY (BEAKER) (test code = 469) Clear SPECIFIC GRAVITY UA (BEAKER) (test 1.007 1.001-1.035 code = 468) PH UA (BEAKER) [...] 466) UROBILINOGEN UA (BEAKER) (test code 0.2 0.2-1.0 = 463) RBC UA (BEAKER) (test code = 519) < /HPF WBC UA (BEAKER) (test code = 520) 1 /HPF SQUAMOUS EPITHELIAL (BEAKER) (test 5 /HPF code = 516) SOURCE(BEAKER) (test code = 2795) [employer] ID - [auto][employer] ID - [id number] 07:28:59 Test Item Value Reference Range Interpretation Comments PHOSPHORUS (BEAKER) (test code = 3.7 mg/dL 2.3-4.7 604) [employer] ID - EMMANUELBASIC METABOLIC [id number] 07:28:58 Test Item Value Reference Range Interpretation Comments SODIUM (BEAKER) 138 meq/L 136-145 (test code = 381) POTASSIUM 3.7 meq/L 3.5-5.1 (BEAKER) (test code = 379) CHLORIDE (BEAKER) 106 meq/L 98-107 (test code = 382) CO2 (BEAKER) 22 meq/L 22-29 (test code = 355) BLOOD UREA 6 mg/dL 7-21 L NITROGEN (BEAKER) (test code = 354) CREATININE 0.81 mg/dL 0.57-1.25 (BEAKER) (test code = 358) GLUCOSE RANDOM 92 mg/dL 70-105 (BEAKER) (test code = 652) CALCIUM (BEAKER) 9.3 mg/dL 8.4-10.2 (test code = 697) EGFR (BEAKER) 93 Interpretatio n of eGFR (test code = [...] not appl icable for dialysis 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 ID - [id number] 07:28:58 Test Item Value Reference Range Interpretation Comments MAGNESIUM (BEAKER) (test code = 2.0 mg/dL 1.6-2.6 627) [employer] ID - EMMDREWUELCOMPREHENSIVE METABOLIC [id number] 05:58:41 Test Item Value Reference Range Interpretation Comments TOTAL PROTEIN 7.6 gm/dL 6.0-8.3 (BEAKER) (test code = 770) ALBUMIN (BEAKER) 4.3 g/dL 3.5-5.0 (test code = 1145) ALKALINE 65 U/L 40-150 PHOSPHATASE (BEAKER) (test code = 346) BILIRUBIN TOTAL 0.6 mg/dL 0.2-1.2 (BEAKER) (test code = 377) SODIUM (BEAKER) 139 meq/L 136-145 (test code = 381) POTASSIUM (BEAKER) 3.5 meq/L 3.5-5.1 (test code = 379) CHLORIDE (BEAKER) 106 meq/L 98-107 (test code = 382) CO2 (BEAKER) (test 23 meq/L 22-29 code = 355) BLOOD UREA 7 mg/dL 7-21 NITROGEN (BEAKER) (test code = 354) CREATININE 0.87 mg/dL 0.57-1.25 (BEAKER) (test code = 358) GLUCOSE RANDOM 86 mg/dL 70-105 (BEAKER) (test code = 652) CALCIUM (BEAKER) 9.3 mg/dL 8.4-10.2 (test code = 697) AST (SGOT) 46 U/L 5-34 H (BEAKER) (test code = 353) ALT (SGPT) 97 U/L 6-55 H (BEAKER) (test code = 347) EGFR (BEAKER) 85 Interpretatio n of eGFR (test code = [...] not appl icable for dialysis 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 ID - [facility] (HEMOGRAM ONLY)2022-07-12 05:22:05 Test Item Value Reference Range Interpretation Comments WHITE BLOOD CELL COUNT (BEAKER) 5.7 K/ L 3.5-10.5 (test code = 775) RED BLOOD CELL COUNT (BEAKER) 4.59 M/ L 3.93-5.22 (test code = 761) HEMOGLOBIN (BEAKER) (test code = 14.1 GM/DL 11.2-15.7 410) HEMATOCRIT (BEAKER) (test code = 41.7 % 34.1-44.9 411) MEAN CORPUSCULAR VOLUME (BEAKER) 91 fL 79-95 (test code = 753) MEAN CORPUSCULAR HEMOGLOBIN 30.7 pg 25.6-32.2 (BEAKER) (test code = 751) MEAN CORPUSCULAR HEMOGLOBIN CONC 33.8 GM/DL 32.2-35.5 (BEAKER) (test code = 752) RED CELL DISTRIBUTION WIDTH 12.8 % 11.7-14.4 (BEAKER) (test code = 412) PLATELET COUNT (BEAKER) (test 293 K/CU MM 150-450 code = 756) MEAN PLATELET VOLUME (BEAKER) 11.5 fL 9.4-12.3 (test code = 754) NUCLEATED RED BLOOD CELLS 0 /100 WBC 0-0 (BEAKER) (test code = 413) [id number] 05:08:17 Test Item Value Reference Range Interpretation Comments PHOSPHORUS (BEAKER) 3.9 mg/dL 2.3-4.7 Specimen slightly (test code = 604) hemolyzed Mix[employer] DIANNA - MYRA MCOMPREHENSIVE METABOLIC [id number] 05:08:17 Test Item Value Reference Range Interpretation Comments TOTAL PROTEIN 6.3 gm/dL 6.0-8.3 Specimen sligh tly (BEAKER) (test hemolyzed code = 770) ALBUMIN (BEAKER) 3.5 g/dL 3.5-5.0 Specimen sl ightly (test code = 1145) hemolyzed ALKALINE 58 U/L 40-150 PHOSPHATASE (BEAKER) (test code = 346) BILIRUBIN TOTAL 0.7 mg/dL 0.2-1.2 Specimen sli ghtly (BEAKER) (test hemolyzed code = 377) SODIUM (BEAKER) 137 meq/L 136-145 (test code = 381) POTASSIUM (BEAKER) 3.6 meq/L 3.5-5.1 Specimen slightly (test code = 379) hemolyzed CHLORIDE (BEAKER) 108 meq/L 98-107 H (test code = 382) CO2 (BEAKER) (test 23 meq/L 22-29 code = 355) BLOOD UREA 9 mg/dL 7-21 NITROGEN (BEAKER) (test code = 354) CREATININE 0.87 mg/dL 0.57-1.25 Specimen slight ly (BEAKER) (test hemolyzed code = 358) GLUCOSE RANDOM 86 mg/dL 70-105 (BEAKER) (test code = 652) CALCIUM (BEAKER) 8.5 mg/dL 8.4-10.2 (test code = 697) AST (SGOT) 56 U/L 5-34 H Specimen slight ly (BEAKER) (test hemolyzed code = 353) ALT (SGPT) 97 U/L 6-55 H Specimen slight ly (BEAKER) (test hemolyzed code = 347) EGFR (BEAKER) 85 Interpretatio n of eGFR (test code = [...] not appl icable for dialysis 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 ID - MYRA MSARS-COV2/RT-PCR ([facility])2022-07-10 04:31:52 Test Item Value Reference Range Interpretation Comments SARS-COV2/RT-PCR Negative Negative The SARS-Co V-2 target (test code = nucleic acids a re not 1232380) detected in thi s specimen. Negative result [...] This SARS CoV-2 test is a rapid, real-time RT-PC R test intended for th e qualitative detection [...] revoked sooner. Fact Sheet for Healthcare Providers: https://www.cepheid.co m/Documents/Xpert%20Xpress%20SARS%20CoV-2/Fact%20Sheets/148-2477%40RPXS-NJX-5%20 HEALTHCARE%20PROVIDERS%20FACT%20SHEET.pdf Fact Sheet for Healthcare Patients: https://www.Outbrain/Documents/Xpert%20Xp ress%20SARS%20CoV-2/Fact%20Sheets/302-3801%38AXXE-CUS-6%20PATIENT%20FACT%20SHEET .pdfHCG, QUANTITATIVE, [id number] 23:38:56 Test Item Value Reference Range Interpretation Comments GONADOTROPIN, CHORIONIC (HCG) QUANT < mIU/mL 0-10 (BEAKER) (test code = 649) Non- Females: <10 mIU/mL Females: Gestation Age Reference Range(mIU/mL) 0.2-1 Week 5-50 1-2 Weeks 50-500 2-3 Weeks 100-5,000 3-4 Weeks 500-10,000 4-5 Weeks 1,000-50,000 5-6 Weeks 10,000-100,000 6-8 Weeks 15,000- 200,000 2-3 Months 10,000-100,000 [employer] ID - ADMINHIGH SENSITIVITY TROPONIN I 2022-07-09 21:03:26 Test Item Value Reference Range Interpretation Comments HIGH SENSITIVITY < pg/ml See_Comment [Automated message] TROPONIN I (test code = The system which 2491526) generated this result transmitted ref erence range: <=17. Th e reference range was not used to interpr et this result as normal/abnormal . 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 STAT High Sensitivity Troponin-I results should be used in conjunctionwith other diagnostic information such as ECG, clinical observations and information, and patient symptoms to aid in the diagnosis of [place].COMPREHENSIVE METABOLIC [id number] 20:59:08 Test Item Value Reference Range Interpretation Comments TOTAL PROTEIN 8.0 gm/dL 6.0-8.3 (BEAKER) (test code = 770) ALBUMIN (BEAKER) 4.5 g/dL 3.5-5.0 (test code = 1145) ALKALINE 61 U/L 40-150 PHOSPHATASE (BEAKER) (test code = 346) BILIRUBIN TOTAL 0.5 mg/dL 0.2-1.2 (BEAKER) (test code = 377) SODIUM (BEAKER) 139 meq/L 136-145 (test code = 381) POTASSIUM (BEAKER) 3.9 meq/L 3.5-5.1 (test code = 379) CHLORIDE (BEAKER) 107 meq/L 98-107 (test code = 382) CO2 (BEAKER) (test 20 meq/L 22-29 L code = 355) BLOOD UREA 17 mg/dL 7-21 NITROGEN (BEAKER) (test code = 354) CREATININE 1.02 mg/dL 0.57-1.25 (BEAKER) (test code = 358) GLUCOSE RANDOM 110 mg/dL 70-105 H (BEAKER) (test code = 652) CALCIUM (BEAKER) 9.5 mg/dL 8.4-10.2 (test code = 697) AST (SGOT) 29 U/L 5-34 (BEAKER) (test code = 353) ALT (SGPT) 71 U/L 6-55 H (BEAKER) (test code = 347) EGFR (BEAKER) [...] not appl icable for dialysis 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 ID - [id number] 20:59:08 Test Item Value Reference Range Interpretation Comments LIPASE (BEAKER) (test code = 749) 12 U/L 8-78 Mix[employer] ID - BSURINALYSIS W/ REFLEX URINE [id number] 20:50:16 Test Item Value Reference Range Interpretation Comments COLOR (BEAKER) (test code = 470) Brown CLARITY (BEAKER) (test code = 469) Hazy SPECIFIC GRAVITY UA (BEAKER) (test > 1.001-1.035 H code = 468) PH UA (BEAKER) (test code = 467) 5.5 5.0-8.0 PROTEIN UA (BEAKER) (test code = 100 mg/dL Negative A 464) GLUCOSE UA (BEAKER) (test code = Negative Negative 365) KETONES UA (BEAKER) (test code = 10 mg/dL Negative A 371) BILIRUBIN UA (BEAKER) (test code = Negative Negative 462) BLOOD UA (BEAKER) (test code = 461) Large Negative A NITRITE UA (BEAKER) (test code = Negative Negative 465) LEUKOCYTE ESTERASE UA (BEAKER) Moderate Negative A (test code = 466) UROBILINOGEN UA (BEAKER) (test code 0.2 0.2-1.0 = 463) RBC UA (BEAKER) (test code = 519) 8529 /HPF WBC UA (BEAKER) (test code = 520) 0 /HPF MUCUS (BEAKER) (test code = 1574) Few SQUAMOUS EPITHELIAL (BEAKER) (test 7 /HPF code = 516) SOURCE(BEAKER) (test code = 2795) Mix[employer] ID - techCBC W/PLT COUNT & AUTO [id number] 20:45:23 Test Item Value Reference Range Interpretation Comments WHITE BLOOD CELL COUNT (BEAKER) 8.8 K/ L 3.5-10.5 (test code = 775) RED BLOOD CELL COUNT (BEAKER) 4.45 M/ L 3.93-5.22 (test code = 761) HEMOGLOBIN (BEAKER) (test code = 13.8 GM/DL 11.2-15.7 410) HEMATOCRIT (BEAKER) (test code = 40.5 % 34.1-44.9 411) MEAN CORPUSCULAR VOLUME (BEAKER) 91 fL 79-95 (test code = 753) MEAN CORPUSCULAR HEMOGLOBIN 31.0 pg 25.6-32.2 (BEAKER) (test code = 751) MEAN CORPUSCULAR HEMOGLOBIN CONC 34.1 GM/DL 32.2-35.5 (BEAKER) (test code = 752) RED CELL DISTRIBUTION WIDTH 12.9 % 11.7-14.4 (BEAKER) (test code = 412) PLATELET COUNT (BEAKER) (test 305 K/CU MM 150-450 code = 756) MEAN PLATELET VOLUME (BEAKER) 11.5 fL 9.4-12.3 (test code = 754) NUCLEATED RED BLOOD [...] (test code = 437) NEUTROPHILS ABSOLUTE COUNT 5.24 K/ L 1.56-6.13 (BEAKER) (test code = 670) LYMPHOCYTES ABSOLUTE COUNT 2.88 K/ L 1.18-3.74 (BEAKER) (test code = 414) MONOCYTES ABSOLUTE COUNT (BEAKER) 0.59 K/ L 0.24-0.36 H (test code = 415) EOSINOPHILS ABSOLUTE COUNT 0.07 K/ L 0.04-0.36 (BEAKER) (test code = 416) BASOPHILS ABSOLUTE COUNT (BEAKER) 0.03 K/ L 0.01-0.08 (test code = 417) IMMATURE GRANULOCYTES-RELATIVE 0.20 % 0.00-1.00 PERCENT (BEAKER) (test code = 2801) - NM GASTRIC [id number] 12:21:00 [facility] 1980 Sex: F Patient Name: RHEA SPARKS Unit No: [id number] EXAMS: CPT CODE: [id number] NM GASTRIC EMPTYING 87391 EXAM: - NM GASTRIC EMPTYING HISTORY: ALTERED [...] with gastroparesis in the correct clinical setting. Electronically Signedby Zachary Colin MD on 06/25/2022 at 1221 Reported and signed by: Zachary Colin MD CC: Abelardo Gaona; Vielka Reno III, MD Technologist: Shivani Kirkpatrick RT(N) Transcrpt Date/Tm/Trnsp: 06/25/2022 (1221) [email or web address] Orig Print D/T: S: 06/25/2022 (2914) [facility] NAME: RHEA SPARKS [id number] [facility] [address] PHYS: [place] [address] : 1980 AGE: 41 SEX: F LOC: [id number] PHONE #: [phone] EXAM DATE: 08/25/2021 STATUS: REG CLI FAX #: [phone] RADIOLOGY NO: PAGE 1 Signed Report Urine [id number] 21:47:00 Test Item Value Reference Range Interpretation Comments Urine culture (test SEE COMMENT Bacteriu woody screen code = [id number]) negative. [facility] [id number] 21:47:00 Test Item Value Reference Range Interpretation Comments Urine culture (test SEE COMMENT Bacteriu woody screen code = 3525250) negative. [facility] *WW*2022-06-11 17:43:00 Test Item Value [...] NONE A AMORPH UR (test code = OMDE) / HPF NONE TRICH UR (test code = UTRICH) /HPF NONE YEAST UR (test code = UY) /HPF NONE SPERM UR (test code = USPERM) /HPF NONE KIDNEY IMAGING, SINGLE, FLOW/FUNCTION W/ [id number] 14:59:00Reason for Exam:->r10.9[facility] : 1980 Sex: FFINAL REPORT PROCEDURE: Functional RENAL SCAN with Diuretic Stimulation CPT CODE: 89907 INDICATION: R10.9 PROTOCOL: 10 mCi of Tc-99m [...] Date/Time: 06/07/2022 1 4:59:41 UA/M W/RFLX CULTURE, [id number] 13:09:00 Test Item Value Reference Range Interpretation Comments Specific Tuttle, UA >=1.030 1.005-1.03 A (test code = 2965-2) pH, UA (test code = 5.5 5.0-7.5 5803-2) Color, UA (test code Yellow Yellow = 9796-4) Appearance (test code Turbid Clear A = 6584040) WBC Esterase (test Negative Negative code = 1384481) Protein, UA (test Trace Negative/T code = 89487-6) Glucose, Urine (test Negative Negative code = 32811-0) Ketones, UA (test Negative Negative code = 2514-8) Blood, UA (test code Trace Negative A = 75772-6) Bilirubin, UA (test Negative Negative code = 5770-3) Urobilinogen,Semi-Qn 0.2 mg/dL 0.2-1.0 (test code = 2367347) Nitrite, UA (test Negative Negative code = 97901-5) Microscopic See below: Microscopic was Examination (test indicated and was code = 8697316) performed. Urinalysis Reflex Comment This speci men has (test code = 8081811) reflex ed to a Urine Culture. LEXA (test code = LEXA) Specimen Comment: A courtesy copy of this report has been sent to [phone] rmed at: [address] [id number] Director: Shaq Hamilton MD, Phone: [phone] Lab Interpretation Abnormal (test code = 70167-4) [facility] CenterUR[facility], [id number] 13:09:00 Test Item Value Reference Interpretation Comments Range Urine Culture, Final report A Routine (test code = 3576743) Result 1 (test code Escherichia coli A Mult i-Drug Resistant = 2943873) OrganismGreater than 100,000 colony forming units p er mL Result 2 (test code Enterococcus A For Ente rococcus = ) faecalis species, aminoglycosides (except for high-levelresis tance screening), cephalosporins, clindamycin, andtrimethoprim -sulf amethoxazole ar e not effective clinically.(CLS I, J898-K91, 2016)Greater th an 100,000 colony forming units p er mL Antimicrobial Comment S = Suscep tible; Susceptibility I = Intermedi ate; R (test code = = Resistant P = ) Positive; N = Negative MICS are expressed in micrograms per mL Antibiotic RSLT #1 RSLT#2 RSLT#3 RSLT#4Amoxicill in/Cl avulanic Acid RAmpicillin RCefazolin RCefepime SCeftriaxone SCefuroxime ICiprofloxacin S SErtapenem SGentamicin SImipenem SLevofloxacin S SMeropenem SNitrofurantoin S SPenicillin SPiperacillin/T azoba ctam RTetracycl ine R RTobramycin STrimethoprim/S ulfa SVancomycin S LEXA (test code = Specimen LEXA) Comment: A courtesy copy of this report has been sent to [phone] rmed at: [address] [id number] Director: Shaq Hamilton MD, Phone: [phone] Lab Interpretation Abnormal (test code = 87227-1) [facility] CenterMICROSCOPIC [id number] 13:09:00 Test Item Value Reference Range Interpretation [...] code = Many None seen/ A ) ELXA (test code = LEXA) Specimen Comment: A courtesy copy of this report has been sent to [phone] rmed at: 01 - [facility] [address] [place], [place] [id number] Director: Shaq Hamilton MD, Phone: [phone] Lab Interpretation Abnormal (test code = 31794-6) [facility] CenterUA/M W/RFLX CULTURE, [id number] 13:09:00 Test Item Value Reference Range Interpretation Comments Specific Tuttle, UA >=1.030 1.005-1.03 A (test code = 2965-2) pH, UA (test code = 5.5 5.0-7.5 5803-2) Color, UA (test code Yellow Yellow = 9796-4) Appearance (test code Turbid Clear A = 3344175) WBC Esterase (test Negative Negative code = 4928091) Protein, UA (test Trace Negative/T code = 50998-7) Glucose, Urine (test Negative Negative code = 98229-8) Ketones, UA (test Negative Negative code = 2514-8) Blood, UA (test code Trace Negative A = 65786-1) Bilirubin, UA (test Negative Negative code = 5770-3) Urobilinogen,Semi-Qn 0.2 mg/dL 0.2-1.0 (test code = 7242500) Nitrite, UA (test Negative Negative code = 61668-7) Microscopic See below: Microscopic was Examination (test indicated and was code = 6158996) performed. Urinalysis Reflex Comment This speci men has (test code = ) reflex ed to a Urine Culture. LEXA (test code = LEXA) Specimen Comment: A courtesy copy of this report has been sent to [phone] rmed at: 01 - [facility] [address] [place], [place] [id number] Director: Shaq Hamilton MD, Phone: [phone] Lab Interpretation Abnormal (test code = 22488-7) [facility] CenterURINE CULTURE, [id number] 13:09:00 Test Item Value Reference Interpretation Comments Range Urine Culture, Final report A Routine (test code = 4122735) Result 1 (test code Escherichia coli A Mult i-Drug Resistant = ) OrganismGreater than 100,000 colony forming units p er mL Result 2 (test code Enterococcus A For Ente rococcus = ) faecalis species, aminoglycosides (except for high-levelresis tance screening), cephalosporins, clindamycin, andtrimethoprim -sulf amethoxazole ar e not effective clinically.(CLS I, X368-M04, 2016)Greater th an 100,000 colony forming units p er mL Antimicrobial Comment S = Suscep tible; Susceptibility I = Intermedi ate; R (test code = = Resistant P = ) Positive; N = Negative MICS a re [...] of this report has been sent to [phone] rmed at: [address] [place] [id number] Director: Shaq Hamilton MD, Phone: [phone] Lab Interpretation Abnormal (test code = 64942-5) [facility] CenterMICROSCOPIC [id number] 13:09:00 Test Item Value Reference Range Interpretation [...] reference range : 0 - 10 /hpf. e reference range was not used to interpret this result as normal/abnormal . Casts (test code = None seen None seen /lpf 20110423) Bacteria (test code = Many None seen/ A ) LEXA (test code = LEXA) Specimen Comment: A courtesy copy of this report has been sent to [phone] rmed at: 01 - [facility] [address] [place], [place] [id number] Director: Shaq Hamilton MD, Phone: [phone] Lab Interpretation Abnormal (test code = 81311-0) [facility] CenterU/S, RENAL, [id number] 15:58:00 [facility] : 1980 Sex: FFINAL REPORT Patient: Rhea SparksDOB: 1980MRN: [id number] Accession number: [id number] TECHNIQUE: Grayscale ultrasound of the kidneys and [...] is collapsed. IMPRESSION:Mild left hydronephrosis. Signed: Serjio Ruelaseport Verified Date/Time: 06/03/2022 15:58:58 Urine [id number] 09:22:24 Test Item Value Reference Range Interpretation Comments Result (test code = <10,000 col/mL skin 6463-4) [facility] [id number] 09:22:24 Test Item Value Reference Range Interpretation Comments Result (test code = <10,000 col/mL skin 6463-4) [facility], RENAL, [id number] 23:46:00Reason for exam:->URINARY RETENTION, left flank pain, dysuria, passing stones, rescent stent removal. last us with mild hydro Pt recently reports being discharged on of this month and passing a kidney stone on . Pt states since then she has been having to strain to urinate and is havingdiffiulty urinating at all now.[facility] SPAKRS : 1980 Sex: FFINAL REPORT U/S, RENAL, COMPLETE CLINICAL STATEMENT: Urinary retention, left flank pain. COMPARISON: None FINDINGS: Liver is moderately diffusely echogenic consistent with fatty infiltration. No focal hepatic lesions. Right kidney measures 11.2 x 4.3 x 5.6 cm. Left kidney rcehmpsf09.1 x 4.8 x 5.8 cm. No hydronephrosis. Bladder is mildly distended and there are bilateral ureteraljets noted. Small right renal calculus suspected measuring 6 mm. Small left renal calculus measuring6 mm. No abdominal or pelvic ascites. IMPRESSION: Bilateral nephrolithiasis. No evidence for acute urinary obstruction. Signed: Cipriano Odonnell MDReport Verified Date/Time: 06/01/2022 23:46:11 Rapid drug screen, [id number] 20:42:19 Test Item Value Reference Range Interpretation Comments Barbiturate Screen Negative Negative (test code = 45136-7) Benzodiazepine Screen Negative Negative (test code = 19721-3) Cocaine (Metab.) Negative Negative Screen (test code = 3397-7) Methadone Screen (test Negative Negative code = 10581-7) Opiate Screen (test Positive Negative A code = 05072-0) Cannabinoid Screen Positive Negative A (test code = 00235-6) Amph/Methamph Screen Negative Negative (test code = 94236-3) Phencyclidine Screen Negative Negative (test code = 69593-4) pH, UA (test code = 6.0 5.0-8.0 5803-2) LEXA (test code = LEXA) DRUG CUTOFF CONC.Cocaine 300 ng/mL Cannabinoid 50 ng/mLBenzodiazepine 200 ng/mLBarbiturate 200 ng/mLPhencyclidine 25 ng/mLOpiate 300 ng/mLMethadone 300 ng/mLAmphetamine/ 1000 ng/mL Methamphetamine This assay provides an unconfirmed qualitative test result for the clinical management of patients in emergency situations. Chain of custody not maintained. Some brcj-zuk-ntfpjyv medications, as well as adulterants, may cause inaccurate results. Clinical correlation should be applied. A more comprehensive drug screen or confirmation of a detected drug may be performed upon request.Mixer Operator [employer] ID - DSENSONOperator ID - DSENSONOperator ID - DSENSONOperator ID - DSENSONOperator ID - DSENSONOperator ID - DSENSONOperator ID - DSENSONOperator ID - DSENSON Lab Interpretation Abnormal (test code = 06215-1) [facility] CenterRapid drug screen, [id number] 20:42:19 Test Item Value Reference Range Interpretation Comments Barbiturate Screen Negative Negative (test code = 80349-8) Benzodiazepine Screen Negative Negative (test code = 19465-0) Cocaine (Metab.) Negative Negative Screen (test code = 3397-7) Methadone Screen (test Negative Negative code = 48836-2) Opiate Screen (test Positive Negative A code = 72507-4) Cannabinoid Screen Positive Negative A (test code = 29394-3) Amph/Methamph Screen Negative Negative (test code = 52462-3) Phencyclidine Screen Negative Negative (test code = 00802-6) pH, UA (test code = 6.0 5.0-8.0 5803-2) LEXA (test code = LEXA) DRUG CUTOFF CONC.Cocaine 300 ng/mL Cannabinoid 50 ng/mLBenzodiazepine 200 ng/mLBarbiturate 200 ng/mLPhencyclidine 25 ng/mLOpiate 300 ng/mLMethadone 300 ng/mLAmphetamine/ 1000 ng/mL Methamphetamine This assay provides an unconfirmed qualitative test result for the clinical management of patients in emergency situations. Chain of custody not maintained. Some zdvf-bac-zwofluj medications, as well as adulterants, may cause inaccurate results. Clinical correlation should be applied. A more comprehensive drug screen or confirmation of a detected drug may be performed upon request.[employer] Operator [employer] ID - DSENSONOperator ID - DSENSONOperator ID - DSENSONOperator ID - DSENSONOperator ID - DSENSONOperator ID - DSENSONOperator ID - DSENSONOperator ID - DSENSON Lab Interpretation Abnormal (test code = 44184-7) [facility] CenterRAPID DRUG SCREEN, [id number] 20:42:19 Test Item Value Reference Range Interpretation [...] situations. Chain of custody not maintained. Some ydgr-eie-ctkzuyw medications, as well as adulterants, may cause inaccurate results. Clinical correlation should be applied. A more comprehensive drug screen or confirmation of a detected drug may be performed upon request.[employer] Operator [employer] ID - DSENSONOperator ID - DSENSONOperator ID - DSENSONOperator ID - DSENSONOperator ID - DSENSONOperator ID - DSENSONOperator ID - DSENSONOperator ID - DSENSONPregnancy screen, urine 2022-06-01 20:26:19 Test Item Value Reference Range Interpretation Comments Preg Test, Ur (test code = 2111-1) Negative Negative Lab Interpretation (test code = Normal 55250-1) [facility] CenterPregnancy screen, [id number] 20:26:19 Test Item Value Reference Range Interpretation Comments Preg Test, Ur (test code = 2111-1) Negative Negative Lab Interpretation (test code = Normal 91037-0) [facility] CenterPREGNANCY SCREEN, [id number] 20:26:19 Test Item Value Reference Range Interpretation Comments TEST URINE (BEAKER) (test Negative Negative code = 583) BASIC METABOLIC [id number] 20:01:54 Test Item Value Reference Range Interpretation [...] 70-110 (BEAKER) (test code = 652) CALCIUM (BISHOPAKER) 9.0 mg/dL 8.5-10.5 (test code = 697) EGFR (NASIMA) 92 Interpretatio n of eGFR (test code = mL/min/1.73 values Stage D escription 1092) sq m Result G1 Caitlin l [...] not appl icable for dialysis 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 ID - DSENSONOperator ID - DSENSONOperator ID - DSENSONOperator ID - DSENSONOperator ID - DSENSONOperator ID - DSENSONOperator ID - DSENSONOperator ID - DSENSONOperator ID - DSENSONOperator ID - DSENSONOperator ID - DSENSONOperator ID - DSENSONUrinalysis w/[id number] 19:13:55 Test Item Value Reference Range Interpretation Comments Color, UA (test code = Yellow 5778-6) Clarity, UA (test code = Clear 5767-9) Specific Tuttle, UA 1.025 1.001-1.035 (test code = 5811-5) pH, UA (test code = 6.0 5.0-8.0 5803-2) Protein, UA (test code = Negative Negative 88231-4) Glucose, UA (test code = Negative Negative 365) Ketones, UA (test code = Trace Negative A 2514-8) Bilirubin, UA (test code Negative Negative = 64904-3) Blood, UA (test code = Small Negative A 64853-5) Nitrite, UA (test code = Negative Negative 5802-4) Leukocytes, UA (test Negative Negative code = 5799-2) Urobilinogen, UA (test 0.2 code = 95393-4) Bacteria, UA (test code Moderate = 98859-8) RBC, UA (test code = <5 See_Comment [Autom ated message] 799-7) The system [employer] generated this result transmitted ref erence range: /HPF. Th e reference range was not used to int erpret this result as normal/abnormal . WBC, UA (test code = <5 See_Comment [Autom ated message] 40906-4) The system [employer] generated this result transmitted ref erence range: /HPF. Th e reference range was not used to int erpret this result as normal/abnormal . SQUAMOUS EPITHELIAL 10-20 See_Comment [Automa abdias message] (test code = 87860-2) The sy stem which generated this result transmitted ref erence range: /HPF. Th e reference range was not used to int erpret this result as normal/abnormal . Specimen Source (test code = 2795) Lab Interpretation (test Abnormal code = 34531-3) [facility] CenterUrinalysis w/Hevrfqxmuoa0430-18-43 19:13:55 Test Item Value Reference Range Interpretation Comments Color, UA (test code = Yellow 5778-6) Clarity, UA (test code = Clear 5767-9) Specific Tuttle, UA 1.025 1.001-1.035 (test code = 5811-5) pH, UA (test code = 6.0 5.0-8.0 5803-2) Protein, UA (test code = Negative Negative 36607-0) Glucose, UA (test code = Negative Negative 365) Ketones, UA (test code = Trace Negative A 2514-8) Bilirubin, UA (test code Negative Negative = 60842-0) Blood, UA (test code = Small Negative A 76282-2) Nitrite, UA (test code = Negative Negative 5802-4) Leukocytes, UA (test Negative Negative code = 5799-2) Urobilinogen, UA (test 0.2 code = 94896-7) Bacteria, UA (test code Moderate = 23572-7) RBC, UA (test code = <5 See_Comment [Autom ated message] 799-7) The system [employer] generated this result transmitted ref erence range: /HPF. Th e reference range was not used to int erpret this result as normal/abnormal . WBC, UA (test code = <5 See_Comment [Autom ated message] 13400-0) The system [employer] generated this result transmitted ref erence range: /HPF. Th e reference range was not used to int erpret this result as normal/abnormal . SQUAMOUS EPITHELIAL 10-20 See_Comment [Automa abdias message] (test code = 66207-3) The sy stem which generated this result transmitted ref erence range: /HPF. Th e reference range was not used to int erpret this result as normal/abnormal . Specimen Source (test code = 2795) Lab Interpretation (test Abnormal code = 58249-5) [facility] CenterURINALYSIS W/ [id number] 19:13:55 Test Item Value Reference Range Interpretation [...] 1663) SOURCE(BEAKER) (test code = 2795) POCT [id number] 11:59:00 Test Item Value Reference Range Interpretation Comments POCT PREG (test code = 1605) negative On board controls acceptable with present C Line (test code = 3574) POCT PREG LOT # (test code = 3575) [id number] POCT PREG TEST DATE (test 2023-10-09 code = 3576) Lab Interpretation (test code = Normal 32300-4) [facility]. METABOLIC PANEL (77993)2022-05-22 13:41:17 Test Item Value Reference Range Interpretation Comments NA (test code = 138 mmol/L 135-145 0315932087) K (test code = 4.7 mmol/L 3.5-5 8269748180) CL (test code = 105 mmol/L 98-108 7181517243) CO2 TOTAL (test code = 20 mmol/L 23-31 L 4088176443) AGAP (test code = 2-16 3226051662) BUN (test code = 9 mg/dL 7-23 3832590869) GLUCOSE (test code = 141 mg/dL 70-110 H 5198433556) CREATININE (test code = 0.80 mg/dL 0.5-1.04 7043220342) TOTAL BILI (test code = 0.4 mg/dL 0.1-1.4 0564531718) CALCIUM (test code = 9.4 mg/dL 8.6-10.6 3549104803) T PROTEIN (test code = 8.0 g/dL 6.3-8.2 4707422318) ALBUMIN (test code = 4.8 g/dL 3.5-5 7553542114) ALK PHOS (test code = 59 U/L 34-122 4883641798) ALTv (test code = 36 U/L 5-35 H 1742-6) AST(SGOT) (test code = 27 U/L 13-40 3655280229) eGFR (test code = mL/min/1.73m2 3940041344) LEXA (test code = LEXA) Association of [...] tests). Lab Interpretation Abnormal (test code = 79156-3) [facility] 13:41:17 Test Item Value Reference Range Interpretation Comments LIPASE (test code = 9133194031) 107 U/L 0-220 Lab Interpretation (test code = Normal 32136-2) [facility] WITH [id number] 13:29:34 Test Item Value Reference Range Interpretation Comments WBC (test code = See_Comment [Automated message] 0590-2) The system [employer] generated this result transmitted ref erence range: 4.30 - 1 1.10 10*3/?L. The re ference range was not u sed to interpret this result as normal/abnor mal. RBC (test code = See_Comment [Automated message] 969-8) The system [employer] generated this result transmitted ref erence range: [...] RDW-SD (test code 45.9 fL 39-49.9 = 91412-6) RDW-CV (test code 13.6 % 12-15.5 = 788-0) PLT (test code = See_Comment [Automated message] 777-3) The system whic h generated this result transmitted ref erence range: 166 - 35 8 10*3/?L. The re ference range was not u sed to interpret this result as normal/abnor mal. MPV (test code = 11.6 fL 9.5-12.9 58500-0) NRBC/100 WBC (test See_Comment [Automat ed message] code = 4276098781) The syste m which generated this result transmitted ref erence range: 0.0 - 10 .0 /100 WBCs. The refer ence range was not u sed to interpret this result as normal/abnor mal. NRBC x10^3 (test See_Comment [Automated message] code = 8006547746) The syste m which generated this result transmitted ref erence range: 10*3/?L. The reference range was not used to interpr et this result as normal/abnormal . GRAN MAT (NEUT) % 60.8 % (test code = 770-8) IMM GRAN % (test 0.40 % code = 5631450083) LYMPH % (test code 27.7 % = 736-9) MONO % (test code 7.9 % = 5905-5) EOS % (test code = 2.6 % 713-8) BASO % (test code 0.6 % = 706-2) GRAN MAT 4.16 10*3/uL 1.88-7.09 x10^3(ANC) (test code = 5113453468) IMM GRAN x10^3 0.03 10*3/uL 0-0.06 (test code = 0047607481) LYMPH x10^3 (test 1.90 10*3/uL 1.32-3.29 code = 731-0) MONO x10^3 (test 0.54 10*3/uL 0.33-0.92 code = 742-7) EOS x10^3 (test 0.18 10*3/uL 0.03-0.39 code = 711-2) BASO x10^3 (test 0.04 10*3/uL 0.01-0.07 code = 704-7) [facility]PO[facility] [id number] 13:25:00 Test Item Value Reference Range Interpretation Comments POCT PREG (test code = 1605) negative On board controls acceptable with present C Line (test code = 3574) POCT PREG LOT # (test code = 3575) [id number] POCT PREG TEST DATE (test 10/09/2023 code = 3576) Lab Interpretation (test code = Normal 38532-1) [facility]U/[facility], RENAL, [id number] 17:07:00 [facility] : 1980 Sex: FFINAL REPORT Name: Rhea FuentesdMRN: [id number]: [id number] and Time:05/20/2022 at 4:40 PM EXAM: RENAL [...] and mild left-sided hydronephrosis.2.Normal right kidney. Signed: Connor, Anusha MDReport Verified Date/Time: 05/20/2022 17:07:34 Reading Location: [facility] Radiology Reading Room URINE [id number] 09:58:33 Test Item Value Reference Range Interpretation Comments CULTURE (BEAKER) (test 10-19,000 col/mL skin code = 1095) layla URINE [id number] 10:57:29 Test Item Value Reference Range Interpretation Comments CULTURE (BEAKER) (test code = 1095) No growth [id number] 04:02:14 Test Item Value Reference Range Interpretation Comments MAGNESIUM (BEAKER) (test code = 1.8 mg/dL 1.5-3.0 627) Mixer Operator Hot [employer] ID - [id number] ID - [id number] ID - [id number] ID - [id number] METABOLIC [id number] 04:00:38 Test Item Value Reference Range Interpretation [...] not appl icable for dialysis 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 ID - [id number] ID - [id number] ID - [id number] ID - WELPLWYFA707Ceqecajb ID - HLVNTCCSF207Hxcprfqi ID - DRFFGTYGZ538Xlgnoylu ID - ZIVSWXLKT391Egrjkwrc ID - PYMXJXKEW701Zbtxtvqj ID - [id number]8 03:59:15 Test Item Value Reference Range Interpretation Comments PHOSPHORUS (BEAKER) (test code = 3.6 mg/dL 2.5-4.5 604) [employer] ID - [id number] W/PLT COUNT & AUTO [id number] 03:44:00 Test Item Value Reference Range Interpretation [...] (BEAKER) (test code = 2801) URINALYSIS W/ [id number] 05:45:45 Test Item Value Reference Range Interpretation [...] = 1663) SOURCE(BEAKER) (test code = 2795) [id number] 05:26:52 Test Item Value Reference Range Interpretation Comments MAGNESIUM (BEAKER) (test code = 2.2 mg/dL 1.5-3.0 627) Mixer Operator Hot Metal ID - LITOOperator ID - LITOOperator ID - LITOOperator ID - LITOBASIC METABOLIC [id number] 05:25:14 Test Item Value Reference Range Interpretation [...] not appl icable for dialysis 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 [employer] ID - LITOOperator ID - LITOOperator ID - LITOOperator ID - LITOOperator ID - LITOOperator ID - LITOOperator ID - LITOOperator ID - LITOOperator ID - [id number] 05:23:50 Test Item Value Reference Range Interpretation Comments PHOSPHORUS (BEAKER) (test code = 4.0 mg/dL 2.5-4.5 604) Mixer Operator Hot Metal ID - LITOCBC W/PLT COUNT & AUTO [id number] 05:03:26 Test Item Value Reference Range Interpretation [...] PERCENT (BEAKER) (test code = 2801) CT, [id number] 20:43:00Unlisted Reason for Exam - Click Yes and Enter Reason Below->NoIs this for enterography?->NoWill this procedure require oral contrast?->No [facility] : 1980 Sex: FFINAL REPORT [...] placement. No significant hydronephrosis. Signed: Cipriano Odonnell VerifiedDate/Time: 04/27/2022 20:43:07 U/S, [id number] 15:08:00Reason for exam:->left flank painShould this be performed at the bedside?->Yes [facility] : 1980 Sex: FFINAL REPORT [...] cm.2.No suspicious adnexal lesions. Signed: Zuleika Irizarry Verified Date/Time: 04/27/2022 15:08:10 Reading Location: [facility] [address] [place] [address] Consult Reading Room U/S, ABDOMINAL, [id number] 15:04:00Reason for exam:- >left flank painShould this be performed at the bedside?->Yes [facility] : 1980 Sex: FFINAL REPORT [...] deep structures of the abdomen. Signed: Zuleika Echolseport Verified Date/Time: 04/27/2022 15:04:18 Reading Location: [facility] C013 Transitional Reading Room RAD, ABDOMEN/KUB 1 VIEW AP 2022-04-27 09:46:00Reason for exam:->left flank painShould this be performed at the bedside?->Yes [facility] 1980 Sex: FFINAL REPORT [...] of obstruction or ileus. Signed: Zuleika Irizarry MDReport Verified Date/Time: 04/27/2022 09:46:57 Reading Location: [facility] B1 C013X Ortho Consult Reading Room [id number] 06:38:11 Test Item Value Reference Range Interpretation Comments MAGNESIUM (BEAKER) (test code = 2.2 mg/dL 1.5-3.0 627) Mixer Operator Hot Metal ID - [id number] ID - [id number] ID - GDBPBDFVO300Lqnffngt ID - [id number] METABOLIC [id number] 06:36:45 Test Item Value Reference Range Interpretation [...] not appl icable for dialysis 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 Metal ID - [id number] ID - QAFUPYXRK464Nxjuxtrq ID - MICUXMUTM254Tryicqry ID - [id number] ID - JGCGKWHKA926Wzrempmv ID - EHPKEMOXB488Hvykwzpx ID - CQYROQPNK880Xkfanpyq ID - JQGTBZFLR360Uvvzgjwk ID - [id number]7 06:35:28 Test Item Value Reference Range Interpretation Comments PHOSPHORUS (BEAKER) (test code = 3.4 mg/dL 2.5-4.5 604) Mixer Operator Hot Metal ID - [id number] W/PLT COUNT & AUTO [id number] 06:10:24 Test Item Value Reference Range Interpretation [...] 0-0 PERCENT (BEAKER) (test code = 2801) [id number] 07:02:11 Test Item Value Reference Range Interpretation Comments MAGNESIUM (BEAKER) (test code = 2.4 mg/dL 1.5-3.0 627) Mixer Operator Hot Metal ID - DSENSONOperator ID - DSENSONOperator ID - DSENSONOperator ID - DSENSONBASIC METABOLIC [id number] 07:00:54 Test Item Value Reference Range Interpretation [...] not appl icable for dialysis 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 Metal ID - DSENSONOperator ID - DSENSONOperator ID - DSENSONOperator ID - DSENSONOperator ID - DSENSONOperator ID - DSENSONOperator ID - DSENSONOperator ID - DSENSONOperator ID - JQRZEKMZPXPKVLAED6554-45-65 06:59:32 Test Item Value Reference Range Interpretation Comments PHOSPHORUS (BEAKER) (test code = 3.9 mg/dL 2.5-4.5 604) Mixer Operator Hot Metal ID - DSENSONCBC W/PLT COUNT & AUTO [id number] 06:37:03 Test Item Value Reference Range Interpretation [...] = 2801) Urinalysis w/Microscopic + Reflex to [id number] 14:33:57 Test Item Value Reference Range Interpretation Comments Color, UA (test code [place] = 5778-6) Clarity, UA (test Turbid code = 5767-9) Specific Tuttle, UA >=1.030 1.001-1.035 (test code = 5811-5) pH, UA (test code = 5.5 5.0-8.0 5803-2) Protein, UA (test >=300 mg/dL Negative A code = 44745-6) Glucose, UA (test 250 mg/dL Negative A code = 365) Ketones, UA (test Trace Negative A code = 2514-8) Bilirubin, UA (test Positive Negative A code = 51083-6) Blood, UA (test code Large Negative A = 50402-8) Nitrite, UA (test Positive Negative A code = 5802-4) Leukocytes, UA (test Moderate Negative A code = 5799-2) Urobilinogen, UA >=8.0 0.2-1.0 H (test code = 98571-3) Bacteria, UA (test Occasional code = 29284-4) RBC, UA (test code = 20-50 See_Comment This is a 799-7) corrected resul t. Previous result was 10-20 /HPF on 04/25/2022 at 14 16 CDT [Automated message] The system which generated this result transmitted reference range : /HPF. The reference range was not used to interpret this result as normal/abnormal . WBC, UA (test code = 5-10 See_Comment [Autom ated 02437-3) message] The system which generated this result transmitted reference range : /HPF. The reference range was not used to interpret this result as normal/abnormal . SQUAMOUS EPITHELIAL <5 See_Comment [[place] abdias (test code = 46051-4) messag e] The system which generated this result transmitted reference range : /HPF. The reference range was not used to interpret this result as normal/abnormal . Specimen Source (test code = 2795) LEXA (test code = LEXA) COLOR MAY INTERFERE WITH RESULTS Lab Interpretation Abnormal (test code = 92027-6) [facility] + Reflex to Culture 2022-04-25 14:33:57 Test Item Value Reference Range Interpretation Comments Color, UA (test code [place] = 5778-6) Clarity, UA (test Turbid code = 5767-9) Specific Tuttle, UA >=1.030 1.001-1.035 (test code = 5811-5) pH, UA (test code = 5.5 5.0-8.0 5803-2) Protein, UA (test >=300 mg/dL Negative A code = 57736-9) Glucose, UA (test 250 mg/dL Negative A code = 365) Ketones, UA (test Trace Negative A code = 2514-8) Bilirubin, UA (test Positive Negative A code = 21858-8) Blood, UA (test code Large Negative A = 92469-7) Nitrite, UA (test Positive Negative A code = 5802-4) Leukocytes, UA (test Moderate Negative A code = 5799-2) Urobilinogen, UA >=8.0 0.2-1.0 H (test code = 63991-5) Bacteria, UA (test Occasional code = 02397-7) RBC, UA (test code = 20-50 See_Comment This is a 799-7) corrected resul t. Previous result was 10-20 /HPF on 04/25/2022 at 14 16 CDT [Automated message] The system which generated this result transmitted reference range : /HPF. The reference range was not used to interpret this result as normal/abnormal . WBC, UA (test code = 5-10 See_Comment [Autom ated 96056-1) message] The system which generated this result transmitted reference range : /HPF. The reference range was not used to interpret this result as normal/abnormal . SQUAMOUS EPITHELIAL <5 See_Comment [[place] abdias (test code = 26289-0) messag e] The system which generated this result transmitted reference range : /HPF. The reference range was not used to interpret this result as normal/abnormal . Specimen Source (test code = 2795) LEAX (test code = LEXA) COLOR MAY INTERFERE WITH RESULTS Lab Interpretation Abnormal (test code = 95475-6) [facility] CenterUR[facility] W/ REFLEX URINE [id number] 14:33:57 Test Item Value Reference Range Interpretation Comments COLOR (BEAKER) (test [place] code = 470) CLARITY (BEAKER) (test Turbid [...] code = 2795) COLOR MAY INTERFERE WITH [id number] 05:48:25 Test Item Value Reference Range Interpretation Comments MAGNESIUM (BEAKER) (test code = 1.7 mg/dL 1.5-3.0 627) Mixer Operator Hot Metal ID - [id number] ID - FMZP15Fgszjqfp ID - JTFN60Fcvpklii ID - [id number] BASIC METABOLIC [id number] 05:46:35 Test Item Value Reference Range Interpretation [...] not appl icable for dialysis 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 Metal ID - FLQH22Ltmdprdk ID - AEWE69Lgyuxynq ID - QFYQ01Samezfdx ID - CDQL93Nqhuvesd ID - FNFD64Eenfthml ID - NNFC14Vricklwq ID - RWXZ54Mbfdnras ID - SSYN09Notazucx ID - [id number] 05:45:16 Test Item Value Reference Range Interpretation Comments PHOSPHORUS (BEAKER) (test code = 3.2 mg/dL 2.5-4.5 604) Mixer Operator Hot Metal ID - [id number] W/PLT COUNT & AUTO [id number] 05:42:34 Test Item Value Reference Range Interpretation [...] 2801) FL, FLUORO, NON-SPECIFIC, UP TO 1 [id number] 12:47:00Reason for exam:- >CYSTOSCOPY, WITH RETROGRADE PYELOGRAM - Left [facility] : 1980 Sex: FAn imaging unit was utilized for this procedure. No radiologist interpretation was requested. Refer to the EMR for findings. Refer to PACS for any patient radiation dose information. SCREEN, [id number] 10:26:20 Test Item Value Reference Range Interpretation Comments TEST URINE (BEAKER) (test Negative Negative code = 583) PROTHROMBIN TIME/[id number] 10:23:34 Test Item Value Reference Range Interpretation Comments PROTIME (BEAKER) 10.3 seconds 9.3-12.0 Final Infor mation (test code = 759) (Auto Outp ut) INR (BEAKER) (test 0.93 See_Comment Final Inf ormation code = 370) (Auto Output) [Automated mess age] The system Bugcrowd generated this result transmitted ref erence range: <=5.90. The reference range was not used to int erpret this result as normal/abnormal . RECOMMENDED COUMADIN/WARFARIN INR THERAPY RANGESSTANDARD DOSE: 2.0 - 3.0 Includes: PROPHYLAXIS for venous thrombosis, systemic embolization; TREATMENT for venous thrombosis and/or pulmonary embolus.HIGH RISK: Target INR is 2.5-3.5 for patients with mechanical heart valves.COVID [id number] 10:21:45 Test Item Value Reference Range Interpretation Comments SARS COVID ANTIGEN Negative Negative (test code = 76330-6) LEXA (test code = LEXA) The QuickVue SARS Antigen test does not differentiate between SARS-CoV and SARS-CoV-2. The test has been authorized by the FDA under an EUA for use by authorized laboratories. Lab Interpretation Normal (test code = 48653-6) [facility] CenterCOVID [id number] 10:21:45 Test Item Value Reference Range Interpretation Comments SARS COVID ANTIGEN Negative Negative (test code = 02342-8) LEXA (test code = LEXA) The QuickVue SARS Antigen test does not differentiate between SARS-CoV and SARS-CoV-2. The test has been authorized by the FDA under an EUA for use by authorized laboratories. Lab Interpretation Normal (test code = 48218-3) [facility] [id number] 10:21:45 Test Item Value Reference Range Interpretation Comments SARS COVID ANTIGEN (test code = Negative Negative 29723874) The QuickVue SARS Antigen test does not differentiate between SARS-CoV and SARS-CoV-2.The test has been authorized by the FDA under an EUA for use by authorized laboratories.BASIC METABOLIC PANEL (NA, K, CL, CO2, GLUCOSE, BUN, CREATININE, CA)2022-04-16 16:21:48 Test Item Value Reference Range Interpretation Comments NA (test code = 137 mmol/L 135-145 0021088438) K (test code = 4.3 mmol/L 3.5-5 5770835052) CL (test code = 106 mmol/L 98-108 2058926009) CO2 TOTAL (test code = 20 mmol/L 23-31 L 3844144042) AGAP (test code = 2-16 5057584937) BUN (test code = 9 mg/dL 7-23 9495834740) GLUCOSE (test code = 136 mg/dL 70-110 H 8953675771) CREATININE (test code = 0.77 mg/dL 0.5-1.04 3177807736) CALCIUM (test code = 9.2 mg/dL 8.6-10.6 2800562279) eGFR (test code = mL/min/1.73m2 6467895658) LEXA (test code = LEXA) Association of [...] tests). Lab Interpretation Abnormal (test code = 85854-1) [facility] (ALB,T.PRO,BILI T,BU/BC,ALT,AST,ALK PHOS)2022-04-16 16:21:48 Test Item Value Reference Range Interpretation Comments TOTAL BILI (test code = 5933073193) 0.4 mg/dL 0.1-1.1 BILI UNCON (test code = 1430913585) 0.3 mg/dL 0.1-1.1 BILI CONJ (test code = 1059518375) 0.0 mg/dL 0-0.3 T PROTEIN (test code = 6919463032) 7.6 g/dL 6.3-8.2 ALBUMIN (test code = 7337740129) 4.3 g/dL 3.5-5 ALK PHOS (test code = 8597830717) 62 U/L 34-122 ALTv (test code = 1742-6) 27 U/L 5-35 AST(SGOT) (test code = 7042455445) 28 U/L 13-40 Lab Interpretation (test code = Normal 36858-0) [facility]LIPASE20[facility] 16:21:48 Test Item Value Reference Range Interpretation Comments LIPASE (test code = 6566909001) 37 U/L 0-220 Lab Interpretation (test code = Normal 58962-8) [facility]CBC WITH [id number] 16:20:26 Test Item Value Reference Range Interpretation Comments WBC (test code = See_Comment [Automated message] 6690-2) The system Bugcrowd generated this result transmitted ref erence range: 4.30 - 1 1.10 10*3/?L. The re ference range was not u sed to interpret this result as normal/abnor mal. RBC (test code = See_Comment [Automated message] 239-8) The system [employer]crow[employer] generated this result transmitted ref erence range: [...] RDW-SD (test code 44.1 fL 39-49.9 = 07575-9) RDW-CV (test code 13.5 % 12-15.5 = 788-0) PLT (test code = See_Comment [Automated message] 177-3) The system [employer]crow[employer] generated this result transmitted ref erence range: 166 - 35 8 10*3/?L. The re ference range was not u sed to interpret this result as normal/abnor mal. MPV (test code = 11.9 fL 9.5-12.9 11810-3) NRBC/100 WBC (test See_Comment [Automat ed message] code = 8147446827) The syste m which generated this result transmitted ref erence range: 0.0 - 10 .0 /100 WBCs. The refer ence range was not u sed to interpret this result as normal/abnor mal. NRBC x10^3 (test See_Comment [Automated message] code = 7296460329) The syste m which generated this result transmitted ref erence range: 10*3/?L. The reference range was not used to interpr et this result as normal/abnormal . GRAN MAT (NEUT) % 67.8 % (test code = 078-8) IMM GRAN % (test 0.40 % code = 4697136917) LYMPH % (test code 21.7 % = 736-9) MONO % (test code 8.1 % = 5905-5) EOS % (test code = 1.6 % 713-8) BASO % (test code 0.4 % = 706-2) GRAN MAT 5.46 10*3/uL 1.88-7.09 x10^3(ANC) (test code = 7910006087) IMM GRAN x10^3 0.03 10*3/uL 0-0.06 (test code = 5448363133) LYMPH x10^3 (test 1.75 10*3/uL 1.32-3.29 code = 731-0) MONO x10^3 (test 0.65 10*3/uL 0.33-0.92 code = 742-7) EOS x10^3 (test 0.13 10*3/uL 0.03-0.39 code = 711-2) BASO x10^3 (test 0.03 10*3/uL 0.01-0.07 code = 704-7) [facility] CenterL[facility] Acid Whole [id number] 16:00:27 Test Item Value Reference Range Interpretation Comments LACTIC ACID (test code = 1.28 mmol/L 0.5-2.2 4359254716) Lab Interpretation (test code = Normal 23823-2) [facility] CenterPOCT [id number] 15:23:00 Test Item Value Reference Range Interpretation Comments On board controls acceptable with negative C Line (test code = 3574) POCT PREG LOT # (test code = 3575) [id number] POCT PREG TEST DATE (test 07/10/2023 code = 3576) Lab Interpretation (test code = Normal 16684-0) [facility]URINE [id number] 08:18:44 Test Item Value Reference Range Interpretation Comments CULTURE (BEAKER) (test code = 1095) No growth POCT urinalysis isfeunyf2827-98-29 15:10:00 Test Item Value Reference Range Interpretation Comments Glucose Urine, POC Negative Negative (test code = 88708-6) Bilirubin Urine, POC Negative Negative (test code = 5770-3) Ketones Urine, POC Negative Negative (test code = 2514-8) Specific Tuttle 1.025 SG Ratio See_Comment [Automat ed Urine, POC (test code messag e] The = 7611-5) system which generated this result transmit abdias [...] 100 mg/dL Negative A (test code = 87591-1) Urobilinogen Urine, 0.2 mg/dL See_Comment [Automa abdias POC (test code = message] Th e 9512969) system which generated this result transmit abdias reference range : 0.2 mg/dL, 1 mg/dL. The reference range was not used to interpret this result as normal/abnormal . Nitrite Urine, POC Negative Negative (test code = 0507742) Leukocyte Esterase Trace Negative A Urine, POC (test code = 4534105) Lab Interpretation Abnormal (test code = 49864-0) [facility] urinalysis ewmyllvo9505-68-42 15:10:00 Test Item Value Reference Range Interpretation Comments Glucose Urine, POC Negative Negative (test code = 78233-6) Bilirubin Urine, POC Negative Negative (test code = 5770-3) Ketones Urine, POC Negative Negative (test code = 2514-8) Specific [place]uttle 1.025 SG Ratio See_Comment [Automat ed Urine, [...] 100 mg/dL Negative A (test code = 94630-9) Urobilinogen Urine, 0.2 mg/dL See_Comment [Automa abdias POC (test code = message] Th e 9060039) system which generated this result transmit abdias reference range : 0.2 mg/dL, 1 mg/dL. The reference range was not used to interpret this result as normal/abnormal . Nitrite Urine, POC Negative Negative (test code = 8704612) Leukocyte Esterase Trace Negative A Urine, POC (test code = 7556556) Lab Interpretation Abnormal (test code = 22465-3) [facility] CenterUR[facility] [id number] 09:25:10 Test Item Value Reference Range Interpretation Comments CULTURE (BEAKER) (test <10,000 col/mL skin code = 1095) layla U/S, RENAL, [id number] 18:13:00Reason for exam:->hydronephrosisShould this be performed at the bedside?->Yes [facility] : 1980 Sex: FFINAL REPORT [...] midpole the left kidney. Signed: [facility] Verified Date/Time: 03/20/2022 18:13:07 Reading Location: [facility] CBC W/PLT COUNT & AUTO [id number] 06:18:00 Test Item Value Reference Range Interpretation [...] GRANULOCYTES-RELATIVE PERCENT (BEAKER) (test code = 2801) [id number] 05:41:29 Test Item Value Reference Range Interpretation Comments MAGNESIUM (BEAKER) 2.2 mg/dL 1.5-3.0 Specimen slightly (test code = 627) hemolyzed Mixer Operator Hot Metal ID - LITOOperator ID - LITOOperator ID - LITOOperator ID - LITOBASIC METABOLIC [id number] 05:40:09 Test Item Value Reference Range Interpretation [...] not appl icable for dialysis 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 Metal ID - LITOOperator ID - LITOOperator ID - LITOOperator ID - LITOOperator ID - LITOOperator ID - LITOOperator ID - LITOOperator ID - LITOOperator ID - OGUYWWINBEXDIK4513-74-81 05:38:48 Test Item Value Reference Range Interpretation Comments PHOSPHORUS (BEAKER) 4.2 mg/dL 2.5-4.5 Specimen slightly (test code = 604) hemolyzed Mixer Operator Hot Metal ID - LITOU/S, RENAL, [id number] 12:56:00Reason for exam:- >left hydroureteronephrosis s/p removal of stent [facility] 1980 Sex: FFINAL [...] Jb Webb MDReport Verified Date/Time: 03/19/2022 12:56:31 [id number] 04:34:14 Test Item Value Reference Range Interpretation Comments MAGNESIUM (BEAKER) (test code = 2.1 mg/dL 1.5-3.0 627) Mixer Operator Hot Metal ID - [id number] ID - [id number] ID - [id number] ID - [id number] METABOLIC [id number] 04:32:32 Test Item Value Reference Range Interpretation [...] not appl icable for dialysis 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 Metal ID - [id number] ID - [id number] ID - [id number] ID - [id number] ID - [id number] ID - [id number] ID - [id number] ID - [id number] ID - [id number] 04:31:07 Test Item Value Reference Range Interpretation Comments PHOSPHORUS (BEAKER) (test code = 5.0 mg/dL 2.5-4.5 H 604) Mixer Operator Hot Metal ID - [id number] W/PLT COUNT & AUTO [id number] 04:01:38 Test Item Value Reference Range Interpretation [...] PERCENT (BEAKER) (test code = 2801) COVID [id number] 16:49:06 Test Item Value Reference Range Interpretation Comments SARS COVID ANTIGEN (test code = Negative Negative 13248090) The QuickVue SARS Antigen test does not differentiate between SARS-CoV and SARS-CoV-2.The test has been authorized by the FDA under an EUA for use by authorized laboratories.CT, [id number] 15:53:00Recent stone removalUnlisted Reason for Exam - Click Yes and Enter Reason Below->NoIs this for enterography?->NoWill this procedure require oral contrast?->No [facility] : 1980 Sex: FFINAL REPORT [...] MDReport Verified Date/Time: 03/18/2022 15:53:15 COMPREHENSIVE METABOLIC [id number] 15:36:07 Test Item Value Reference Range Interpretation [...] not appl icable for dialysis 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 Metal ID - [id number] ID - [id number] ID - [id number] ID - [id number] ID - [id number] ID - [id number] ID - [id number] ID - [id number] ID - [id number] ID - [id number] ID - [id number] ID - [id number] ID - [id number] ID - [id number] ID - [id number] ID - [id number] ID - [id number] ID - [id number] ID - [id number] URINALYSIS W/ REFLEX URINE [id number] 15:27:39 Test Item Value Reference Range Interpretation [...] 1663) SOURCE(BEAKER) (test code = 2795) SCREEN, [id number] 15:22:40 Test Item Value Reference Range Interpretation Comments TEST URINE (BEAKER) (test Negative Negative code = 583) CBC W/PLT COUNT & AUTO [id number] 15:08:16 Test Item Value Reference Range Interpretation [...] 2801) FL, FLUORO, NON-SPECIFIC, UP TO 1 [id number] 09:12:00Reason for exam:- >LEFT CYSTOSCOPY WITH URETEROSCOPY, LASER LITHOTRIPSY AND STENT PLACEMENT [facility] : 1980 Sex: FAn imaging unit was utilized for this procedure. No radiologist interpretation was requested. Refer to the EMR for findings. Refer to PACS for any patient radiation dose information. SCREEN, [id number] 06:03:33 Test Item Value Reference Range Interpretation Comments TEST URINE (BEAKER) (test Negative Negative code = 583) BASIC METABOLIC [id number] 11:27:22 Test Item Value Reference Range Interpretation [...] not appl icable for dialysis 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 Metal ID - [id number] ID - [id number] ID - PVLPP025Zlesgnjt ID - [id number] ID - [id number] ID - [id number] ID - [id number] ID - [id number] ID - [id number] ID - [id number] ID - [id number] ID - [id number] TIME/INR 2022-03-11 11:23:36 Test Item Value Reference Range Interpretation Comments PROTIME (BEAKER) 10.5 seconds 9.3-12.0 Final Infor mation (test code = 759) (Auto Outp ut) INR (BEAKER) (test 0.95 See_Comment Final Inf ormation code = 370) (Auto Output) [Automated mess age] The system Bugcrow[employer] generated this result transmitted ref erence range: <=5.90. The reference range was not used to int erpret this result as normal/abnormal . RECOMMENDED COUMADIN/WARFARIN INR THERAPY RANGESSTANDARD DOSE: 2.0 - 3.0 Includes: PROPHYLAXIS for venous thrombosis, systemic embolization; TREATMENT for venous thrombosis and/or pulmonary embolus.HIGH RISK: Target INR is 2.5-3.5 for patients with mechanical heart valves.COVID [id number] 11:21:17 Test Item Value Reference Range Interpretation Comments SARS COVID ANTIGEN (test code = Negative Negative 10709909) The QuickVue SARS Antigen test does not differentiate between SARS-CoV and SARS-CoV-2.The test has been authorized by the FDA under an EUA for use by authorized laboratories.CBC W/PLT COUNT & AUTO [id number] 11:11:46 Test Item Value Reference Range Interpretation [...] PERCENT (BEAKER) (test code = 2801) URINE [id number] 09:41:48 Test Item Value Reference Range Interpretation [...] S Sulfamethoxazole (test code = 47) CULTURE (BEAKER) (test ESCHERICHIA COLI A 1 0-19,000 col/mL [...] S Sulfamethoxazole (test code = 47) URINE [id number] 08:37:00 Test Item Value Reference Range Interpretation Comments Culture Observations (test NO GROWTH (<1,000 code = COB1) CFU/ML) COMPREHENSIVE METABOLIC [id number] 06:26:00 Test Item Value Reference Range Interpretation [...] as normal/abnormal . GFR 128 See_Comment [Automated CYMRAES (test mL/min/1.73m\\S\\2 message] The code = GFRAA) [...] RBC MORPH (test code = RBCMOR) NORMAL [id number] 08:21:00 Test Item Value Reference Range Interpretation Comments MAGNESIUM (test code = 48A) 1.9 mg/dL 1.6-2.6 PHOSPHORUS (P04)2022-01-18 08:18:00 Test Item Value Reference Range Interpretation Comments PHOSPHORUS (test code = 43D) 3.0 mg/dL 2.4-5.1 COMPREHENSIVE METABOLIC [id number] 06:13:00 Test Item Value Reference Range Interpretation [...] as normal/abnormal . GFR 124 See_Comment [Automated CYMRAES (test mL/min/1.73m\\S\\2 message] The code = GFRAA) [...] (test code = MDIFF) NO COMPREHENSIVE METABOLIC [id number] 15:55:00 Test Item Value Reference Range Interpretation [...] as normal/abnormal . GFR 92 See_Comment [Automated CYMRAES (test mL/min/1.73m\\S\\2 message] The code = GFRAA) system which generated this result transmit abdias reference range : >=90. The reference range was not used to interpret this result as normal/abnormal . EGFR (test code = eGFR BY EGFR) CKD-EPI CALCULATION IS NOT RECOMMENDED FOR PATIENTS UNDER 18 YEARS OF AGE. BUN/CREA (test 12 20 code = BCR) CALCIUM (test code 9.9 [...] . ALT (test code = 47 IU/L 10 31A) SARS-CoV (RAPID ANTIGEN)2022-01-17 11:59:00 Test Item Value Reference Range Interpretation Comments SARS-CoV (ANTIGEN) NEGATIVE NEGATIVE (test code = COVAG) COVID AG (test This test has been code = COVAGC) marketed under the FDA Emergency Use Authorization (EUA) to meet challenges of the COVID-19 pandemic. The validation standards normally enforced by the FDA and the [employer] (CAP) are more stringent than those [...] RBC MORPH (test code = RBCMOR) NORMAL [id number] 08:46:00 Test Item Value Reference Range Interpretation Comments AMYLASE (test code = 10A) 47 U/L 30-118 LIPASE [id number] 08:46:00 Test Item Value Reference Range Interpretation Comments LIPASE (test code = 60A) 27 IU/L 12-53 CARDIAC [id number] 08:43:00 Test Item Value Reference Range Interpretation Comments TROPONIN I (test code = A84) 3.14 pg/mL 0.00-45.20 URINALYSIS WITH [id number] 08:38:00 Test Item Value Reference Range Interpretation [...] (test code = USPERM) /HPF NONE URINE [id number] 08:27:00 Test Item Value Reference Range Interpretation Comments PREG UR (test code = PGU) NEGATIVE NEGATIVE URINE [id number] 09:05:00 Test Item Value Reference Range Interpretation Comments Isolate 1 (test Coagulase negative code = ISO1) staphylococcus CT ABDOMEN AND PELVIS W/O [id number] 14:30:35 [facility] 1980 Sex: FCT ABDOMEN AND PELVIS [...] Alyson Madsen MD 01/13/2022 2:30 PM CDT [id number] WITH [id number] 14:18:00 Test Item Value Reference Range Interpretation [...] code = USPERM) /HPF NONE BASIC METABOLIC [id number] 14:07:00 Test Item Value Reference Range Interpretation [...] as normal/abnormal . GFR 92 See_Comment [Automated CYMRAES (test mL/min/1.73m\\S\\2 message] The code = GFRAA) [...] code 8.5 mg/dL 8.3-10.6 = 09D) SERUM [id number] 14:03:00 Test Item Value Reference Range Interpretation [...] MORPH (test code = RBCMOR) NORMAL CT, [id number] 19:32:00Unlisted Reason for Exam - Click Yes and Enter Reason Below->NoIs this for enterography?->NoPlease specify:->Renal Stone ProtocolWill this procedure require oral contrast?->No [facility] 1980 Sex: FFINAL REPORT [...] Serjio Ruelas MDReport Verified Date/Time: 01/10/2022 19:32:37 [id number] 16:47:32 Test Item Value Reference Range Interpretation Comments LIPASE (BEAKER) (test code = 749) 8 U/L 6-51 Mixer Operator Hot Metal ID - [id number] ID - [id number] ID - [id number] ID - [id number] METABOLIC [id number] 16:47:05 Test Item Value Reference Range Interpretation [...] S NOT APPLICABLE FOR DIALYSIS PATIEN TS. Mixer Operator [employer] Metal ID - [id number] ID - [id number] ID - [id number] ID - [id number] ID - [id number] ID - [id number] ID - [id number] ID - [id number] ID - [id number] ID - [id number] ID - [id number] ID - [id number] ID - [id number] ID - [id number] ID - [id number] ID - [id number] URINALYSIS W/ REFLEX URINE [id number] 16:36:26 Test Item Value Reference Range Interpretation Comments COLOR (BEAKER) (test code = 470) [place] CLARITY (BEAKER) (test code = Cloudy 469) [...] code = 1663) SOURCE(BEAKER) (test code = 6025) SCREEN, [id number] 16:36:04 Test Item Value Reference Range Interpretation Comments TEST URINE (BEAKER) (test Negative code = 583) CBC W/PLT COUNT & AUTO [id number] 16:27:24 Test Item Value Reference Range Interpretation [...] 2801) FL, FLUORO, NON-SPECIFIC, UP TO 1 [id number] 14:30:00Reason for exam:- >CYSTO, URETEROSCOPY, ROOM 2 [facility] : 1980 Sex: FAn imaging unit was utilized for this procedure. No radiologist interpretation was requested. Refer to the EMR for findings. Refer to PACS for any patient radiation dose information. SCREEN, [id number] 12:00:57 Test Item Value Reference Range Interpretation Comments TEST URINE (BEAKER) (test Negative code = 583) SARS-CoV2/RT-PCR (Asymptomatic ONLY)2022-01-01 17:14:50 Test Item Value Reference Interpretation Comments Range SARS-COV2/RT-PCR Negative Negative The SARS-Co V-2 (test code = target nucleic 21046-0) acids are not detected in thi s [...] rapid, real-jan e RT-PCR test intended for e qualitative detection of nucleic acid fr [...] revoked sooner. Fact Sheet for Healthcare Providers: https://www.[employer]/Documents/Xp ert%20Xpress%20SAR S%20CoV-2/Fact%20S heets/302-3802%20S ARS-COV-2%20HEALTH CARE%20PROVIDERS%2 0FACT%20SHEET.pdf Fact Sheet for Healthcare Patients: https://www.[employer]/Documents/Xp ert%20Xpress%20SAR S%20CoV-2/Fact%20S heets/302-3801%20S ARS-COV-2%20PATIEN T%20FACT%20SHEET.p df Lab Interpretation Normal (test code = 84433-0) [facility] ONLY)2022-01-01 17:14:50 Test Item Value Reference Interpretation Comments Range SARS-COV2/RT-PCR Negative Negative The SARS-Co V-2 (test code = target nucleic 83384-6) acids are not detected in thi s [...] revoked sooner. Fact Sheet for Healthcare Providers: https://www.[employer]/Documents/Xp ert%20Xpress%20SAR S%20CoV-2/Fact%20S heets/302-3802%20S ARS-COV-2%20HEALTH CARE%20PROVIDERS%2 0FACT%20SHEET.pdf Fact Sheet for Healthcare Patients: https://wwwShomoLive/Documents/Xp ert%20Xpress%20SAR S%20CoV-2/Fact%20S heets/302-3801%20S ARS-COV-2%20PATIEN T%20FACT%20SHEET.p df Lab Interpretation Normal (test code = 51388-9) [facility])2022-01-01 17:14:50 Test Item Value Reference Range Interpretation Comments SARS-COV2/RT-PCR Negative Negative The SARS-Co V-2 target (test code = nucleic acids a re not 3555347) detected in thi s specimen. Negative result [...] This SARS CoV-2 test is a rapid, real-time RT-PC R test intended for th e qualitative detection [...] revoked sooner. Fact Sheet for Healthcare Providers: https://www.[employer] ([employer]) m/Documents/Xpert%20Xpress%20SARS%20CoV-2/Fact%20Sheets/302-3802%33ZFGL-DYS-8%20 HEALTHCARE%20PROVIDERS%20FACT%20SHEET.pdf Fact Sheet for Healthcare Patients: https://www.[employer]/Documents/Xpert%20Xp ress%20SARS%20CoV-2/Fact%20Sheets/302-3801%89YQHF-BSO-3%20PATIENT%20FACT%20SHEET .pdfBAJANE [facility] METABOLIC [id number] 10:13:02 Test Item Value Reference Range Interpretation [...] S NOT APPLICABLE FOR DIALYSIS PATIEN TS. Mixer Operator Hot Metal ID - DSENSONOperator ID - DSENSONOperator ID - DSENSONOperator ID - DSENSONOperator ID - DSENSONOperator ID - DSENSONOperator ID - DSENSONOperator ID - DSENSONOperator ID - DSENSONOperator ID - DSENSONOperator ID - DSENSONOperator ID - DSENSONPROTHROMBIN TIME/[id number] 10:08:26 Test Item Value Reference Range Interpretation Comments PROTIME (BEAKER) 10.2 seconds 9.3-12.0 Final Infor mation (test code = 759) (Auto Outp ut) INR (BEAKER) (test 0.92 See_Comment Final Inf ormation code = 370) (Auto Output) [Automated mess age] The system Bugcrowd generated this result transmitted ref erence range: <=5.90. The reference range was not used to int erpret this result as normal/abnormal . RECOMMENDED COUMADIN/WARFARIN INR THERAPY RANGESSTANDARD DOSE: 2.0 - 3.0 Includes: PROPHYLAXIS for venous thrombosis, systemic embolization; TREATMENT for venous thrombosis and/or pulmonary embolus.HIGH RISK: Target INR is 2.5-3.5 for patients with mechanical heart valves.CBC W/PLT COUNT & AUTO [id number] 09:59:29 Test Item Value Reference Range Interpretation [...] (test code = 2801) CT STONE PROTOCOL [id number] 15:47:08 [facility] : 1980 Sex: FLOCATION: [facility] STORY: 41-year-old female who presents with flank pain.COMMENT:Axial CT imaging of this patient's abdomen and pelvis was obtained without IV contrast. Coronal and sagittal soft tissue reconstructions were included. An older examination of December 23, 2019 is available for comparison.One or more of the following dose reduction techniques are used: Automated exposure control, adjustment of the mA and/or kVaccording the patient size, and/or utilization of iterative reconstruction technique.DLP: 955 mGy-cmCONTRAST: NoneFINDINGS:The lung bases are clear. The cardiac silhouette is unremarkable.Again seen are nonobstructing stones in the cortices of both kidneys. Currently there is no evidence of obstructive uropathy.Numerous nonobstructing stones are again seen in both kidneys.The liver, spleen, pancreas,and adrenal glands are unremarkable.Cholecystectomy clips are noted.The upper intestinal tract and the small intestine are unremarkable.Postsurgical changes secondary to an appendectomy are noted.The colon exhibits no acute findings. Diverticulosis is seen in the left hemicolon.There is no ascites or adenopathy present.In the pelvis the urinary bladder, uterus, and ovaries are unremarkable.The vascular anatomy is unremarkable.The musculoskeletal anatomy is unremarkable.IMPRESSION:There are no acute findings in this patient's abdomen or pelvis on this unenhanced CT examination.Again seen are bilateral nonobstructing stones.Diverticulosis is seen in the left hemicolon.Electronically signed by: Jeremi Hassan MD 12/23/2021 3:47 PM CDT [id number] METABOLIC [id number] 15:34:00 Test Item Value Reference Range Interpretation [...] = 91 See_Comment [Automated GFR) mL/min/1.73m\\S\\2 message] e system which generated this result transmit abdias reference range : >=90. The reference range was not used to interpret this result as normal/abnormal . GFR 106 See_Comment [Automated CYMRAES (test mL/min/1.73m\\S\\2 message] The code = GFRAA) [...] = 61 IU/L 10-49 H 31A) LIPASE [id number] 15:34:00 Test Item Value Reference Range Interpretation Comments LIPASE (test code = 60A) 64 IU/L 12-53 H [id number] 15:34:00 Test Item Value Reference Range Interpretation Comments MAGNESIUM (test code = 48A) 2.1 mg/dL 1.6-2.6 SERUM [id number] 15:30:00 Test Item Value Reference Range Interpretation [...] RBCMOR) NORMAL CT ABDOMEN AND PELVIS W/O [id number] 14:54:57 [facility] 1980 Sex: FHISTORY: Flankpain; Abdominal painEXAM: CT abdomen and pelvis without IV contrast.Location code:[id number]:Contrast - No IV contrast was given,Noncontrast phase [...] Zachary Colin MD 12/22/2021 2:54 PM CDT [id number] WITH [id number] 14:36:00 Test Item Value Reference Range Interpretation [...] (test code = USPERM) /HPF NONE URINE [id number] 14:23:00 Test Item Value Reference Range Interpretation Comments PREG UR (test code = PGU) NEGATIVE NEGATIVE COMPREHENSIVE METABOLIC [id number] 13:49:00 Test Item Value Reference Range Interpretation [...] as normal/abnormal . GFR 124 See_Comment [Automated CYMRAES (test mL/min/1.73m\\S\\2 message] The code = GFRAA) [...] code = 23 IU/L 1049 31A) LIPASE [id number] 13:49:00 Test Item Value Reference Range Interpretation [...] MORPH (test code = RBCMOR) NORMAL Urine [id number] 14:01:40 Test Item Value Reference Range Interpretation Comments Result (test code = 6463-4) No growth [facility] CenterU[facility] [id number] 14:01:40 Test Item Value Reference Range Interpretation Comments Result (test code = 6463-4) No growth [facility] [id number] 14:01:40 Test Item Value Reference Range Interpretation Comments CULTURE (BEAKER) (test code = 1095) No growth RAD, ABDOMEN/KUB 1 VIEW [id number] 10:50:00Reason for Exam:->N20 [facility] : 1980 Sex: FFINAL REPORT KUB History provided: N 20 No small or large bowel dilatation. No obstructive signs or localizing abnormalities. Right upper quadrant cholecystectomy clips. Signed: Nirav Sprague MDReport Verified Date/Time: 08/24/2021 10:50:54 Reading Location: [facility] Radiology Reading Room U/S, RENAL, [id number] 14:03:00Reason for exam:->R flank painReason for exam:- >R/O blockageC[facility]INELA [facility] : 1980 Sex: FFINAL REPORT [...] Verified Date/Time: 06/20/2021 14:03:14 Rapid drug screen, [id number] 11:49:39 Test Item Value Reference Range Interpretation Comments Barbiturate Screen Negative Negative (test code = 99689-7) Benzodiazepine Screen Negative Negative (test code = 50376-1) Cocaine (Metab.) Negative Negative Screen (test code = 3397-7) Opiate Screen (test Negative Negative code = 37484-3) Cannabinoid Screen Positive Negative A (test code = 08215-6) Amph/Methamph Screen Negative Negative (test code = 10376-4) Phencyclidine Screen Negative Negative (test code = 68275-3) pH, UA (test code = 6.0 5.0-8.0 5803-2) LEXA (test code = LEXA) DRUG CUTOFF CONC.Cocaine 300 ng/mL Cannabinoid 50 ng/mLBenzodiazepine 200 ng/mLBarbiturate 200 ng/mLPhencyclidine 25 ng/mLOpiate 300 ng/mLMethadone 300 ng/mLAmphetamine/ 1000 ng/mL Methamphetamine This assay provides an unconfirmed qualitative test result for the clinical management of patients in emergency situations. Chain of custody not maintained. Some kfrm-vfg-xzqimpd medications, as well as adulterants, may cause inaccurate results. Clinical correlation should be applied. A more comprehensive drug screen or confirmation of a detected drug may be performed upon request.Mixer Operator Hot Metal ID - LITOOperator ID - LITOOperator ID - LITOOperator ID - LITOOperator ID - LITOOperator ID - LITOOperator ID - MOHINDER Lab Interpretation Abnormal (test code = 46140-6) [facility], [id number] 11:49:39 Test Item Value Reference Range Interpretation Comments Barbiturate Screen Negative Negative (test code = 95993-5) Benzodiazepine Screen Negative Negative (test code = 80204-8) Cocaine (Metab.) Negative Negative Screen (test code = 3397-7) Opiate Screen (test Negative Negative code = 12542-9) Cannabinoid Screen Positive Negative A (test code = 40583-7) Amph/Methamph Screen Negative Negative (test code = 63021-1) Phencyclidine Screen Negative Negative (test code = 31031-7) pH, UA (test code = 6.0 5.0-8.0 5803-2) LEXA (test code = LEXA) DRUG CUTOFF CONC.Cocaine 300 ng/mL Cannabinoid 50 ng/mLBenzodiazepine 200 ng/mLBarbiturate 200 ng/mLPhencyclidine 25 ng/mLOpiate 300 ng/mLMethadone 300 ng/mLAmphetamine/ 1000 ng/mL Methamphetamine This assay provides an unconfirmed qualitative test result for the clinical management of patients in emergency situations. Chain of custody not maintained. Some anzu-lgl-rtzdppd medications, as well as adulterants, may cause inaccurate results. Clinical correlation should be applied. A more comprehensive drug screen or confirmation of a detected drug may be performed upon request.Mixer Operator Hot Metal ID - LITOOperator ID - LITOOperator ID - LITOOperator ID - LITOOperator ID - LITOOperator ID - LITOOperator ID - MOHINDER Lab Interpretation Abnormal (test code = 83526-2) [facility] CenterRAPID DRUG SCREEN, [id number] 11:49:39 Test Item Value Reference Range Interpretation [...] situations. Chain of custody not maintained. Some lxsc-uck-jbpuceh medications, as well as adulterants, may cause inaccurate results. Clinical correlation should be applied. A more comprehensive drug screen or confirmation of a detected drug may be performed upon request.Mixer Operator Hot Metal ID - LITOOperator ID - LITOOperator ID - LITOOperator ID - LITOOperator ID - LITOOperator ID - LITOOperator ID - LITOUrinalysis w/Microscopic + Reflex to [id number] 11:48:53 Test Item Value Reference Range Interpretation Comments Color, UA (test code = Yellow 5778-6) Clarity, UA (test code Hazy = 5767-9) Specific Tuttle, UA 1.025 1.001-1.035 (test code = 5811-5) pH, UA (test code = 6.0 5.0-8.0 5803-2) Protein, UA (test code Trace Negative A = 89442-3) Glucose, UA (test code Negative Negative = 365) Ketones, UA (test code Negative Negative = 2514-8) Bilirubin, UA (test Negative Negative code = 52414-7) Blood, UA (test code = Large Negative A 01242-0) Nitrite, UA (test code Negative Negative = 5802-4) Leukocytes, UA (test Negative Negative code = 5799-2) Urobilinogen, UA (test 0.2 mg/dL 0.2-1.0 code = 07427-4) Bacteria, UA (test code Occasional = 25068-7) Mucus (test code = Few 8247-9) RBC, UA (test code = 50-100 See_Comment [Autom ated message] 799-7) The system [employer] generated this result transmit abdias reference range : /HPF. The refer ence range was not u sed to interpret th is result as normal/abnormal . WBC, UA (test code = <5 See_Comment [Autom ated message] 89872-0) The system [employer] generated this result transmit abdias reference range : /HPF. The refer ence range was not u sed to interpret th is result as normal/abnormal . SQUAMOUS EPITHELIAL 5-10 See_Comment [Automa abdias message] (test code = 61782-7) The sy stem which generated this result transmit abdias reference range : /HPF. The refer ence range was not u sed to interpret th is result as normal/abnormal . Specimen Source (test code = 2795) Lab Interpretation Abnormal (test code = 03742-1) [facility] CenterUrinalysis w/Microscopic + Reflex to Culture 2021-06-20 11:48:53 Test Item Value Reference Range Interpretation Comments Color, UA (test code = Yellow 5778-6) Clarity, UA (test code Hazy = 5767-9) Specific Tuttle, UA 1.025 1.001-1.035 (test code = 5811-5) pH, UA (test code = 6.0 5.0-8.0 5803-2) Protein, UA (test code Trace Negative A = 58521-1) Glucose, UA (test code Negative Negative = 365) Ketones, UA (test code Negative Negative = 2514-8) Bilirubin, UA (test Negative Negative code = 39202-2) Blood, UA (test code = Large Negative A 77668-9) Nitrite, UA (test code Negative Negative = 5802-4) Leukocytes, UA (test Negative Negative code = 5799-2) Urobilinogen, UA (test 0.2 mg/dL 0.2-1.0 code = 49056-1) Bacteria, UA (test code Occasional = 24702-9) Mucus (test code = Few 8247-9) RBC, UA (test code = 50-100 See_Comment [Autom ated message] 799-7) The system [employer] generated this result transmit abdias reference range : /HPF. The refer ence range was not u sed to interpret th is result as normal/abnormal . WBC, UA (test code = <5 See_Comment [Autom ated message] 60252-2) The system [employer] generated this result transmit abdias reference range : /HPF. The refer ence range was not u sed to interpret th is result as normal/abnormal . SQUAMOUS EPITHELIAL 5-10 See_Comment [Automa abdias message] (test code = 82116-0) The sy stem which generated this result transmit abdias reference range : /HPF. The refer ence range was not u sed to interpret th is result as normal/abnormal . Specimen Source (test code = 2795) Lab Interpretation Abnormal (test code = 60437-6) [facility] CenterURINALYSIS W/ REFLEX URINE [id number] 11:48:53 Test Item Value Reference Range Interpretation [...] = 1663) SOURCE(BEAKER) (test code = 2795) [id number] 11:45:25 Test Item Value Reference Range Interpretation Comments Lipase (test code = 26 U/L 6-51 3040-3) LEXA (test code = LEXA) Mix[employer] Operator Hot Metal ID - LITOOperator ID - LITOOperator ID - LITOOperator ID - MOHINDER Lab Interpretation (test Normal code = 07720-4) [facility] CenterLipase2021-11-10 11:45:25 Test Item Value Reference Range Interpretation Comments Lipase (test code = 26 U/L 6-51 3040-3) LEXA (test code = LEXA) Mixer Operator Hot Metal ID - LITOOperator ID - LITOOperator ID - LITOOperator ID - MOHINDER Lab Interpretation (test Normal code = 88086-0) [facility] CenterLIPASE2021-11-10 11:45:25 Test Item Value Reference Range Interpretation Comments LIPASE (BEAKER) (test code = 749) 26 U/L 6-51 Mixer Operator Hot Metal ID - LITOOperator ID - LITOOperator ID - LITOOperator ID - MOHINDER Comprehensive metabolic [id number] 11:44:44 Test Item Value Reference Range Interpretation Comments Protein, Total 7.3 See_Comment [Automated (test code = message] The 2885-2) system which generated this result transmitted reference range : 6.0 - 8.5 gm/dL . The reference range was not used to interpr et this result as normal/abnormal . Albumin (test code 3.8 g/dL 3.5-5.0 = 72225-1) Alkaline 41 U/L 30-115 Phosphatase (test code = 6768-6) Total Bilirubin 0.3 mg/dL 0.1-1.2 (test code = 1975-2) Sodium (test code 140 meq/L 135-148 = 2951-2) Potassium (test 4.6 meq/L 3.6-5.5 code = 2823-3) Chloride (test 104 meq/L 98-106 code = 2075-0) CO2 (test code = 27 meq/L 20-29 2028-9) BUN (test code = 11 mg/dL 06-05 3094-0) Creatinine (test 0.88 mg/dL 0.50-1.20 code = 2160-0) Glucose (test code 92 mg/dL 70-110 = 2345-7) Calcium (test code 8.6 mg/dL 8.5-10.5 = 24820-4) AST (test code = 15 U/L 40 1920-8) ALT (test code = 11 U/L 1742-6) EGFR (test code = 71 mL/min/1.73 [place] [address]-1) NOT ACCURATE CREATININE CLEARANCE IN PREDICTING GLOMERULAR FILTRATION RATE . ESTIMATED GFR I S NOT APPLICABLE FOR DIALYSIS PATIENTS. LEXA (test code = Mixer Operator Hot Metal ID - LEXA) LITOOperator ID - LITOOperator ID - LITOOperator ID - LITOOperator ID - LITOOperator ID - LITOOperator ID - LITOOperator ID - LITOOperator ID - LITOOperator ID - LITOOperator ID - LITOOperator ID - LITOOperator ID - LITOOperator ID - LITOOperator ID - LITOOperator ID - MOHINDER [facility] CampusComprehensive metabolic [id number] 11:44:44 Test Item Value Reference Range Interpretation Comments Protein, Total 7.3 See_Comment [Automated (test code = message] The 2885-2) system which generated this result transmitted reference range : 6.0 - 8.5 gm/dL . The reference range was not used to interpr et this result as normal/abnormal . Albumin (test code 3.8 g/dL 3.5-5.0 = 21081-2) Alkaline 41 U/L 30-115 Phosphatase (test code = 6768-6) Total Bilirubin 0.3 mg/dL 0.1-1.2 (test code = 1974-2) Sodium (test code 140 meq/L 135-148 = 2951-2) Potassium (test 4.6 meq/L 3.6-5.5 code = 2823-3) Chloride (test 104 meq/L 98-106 code = 2075-0) CO2 (test code = 27 meq/L 2028-04) BUN (test code = 11 mg/dL - 3094-0) Creatinine (test 0.88 mg/dL 0.50-1.20 code = 2160-0) Glucose (test code 92 mg/dL 70-110 = 2345-7) Calcium (test code 8.6 mg/dL 8.5-10.5 = 01411-3) AST (test code = 15 U/L 5-40 1920-8) ALT (test code = 11 U/L -50 1742-6) EGFR (test code = 71 mL/min/1.73 [place] [address]-6) NOT ACCURATE CREATININE CLEARANCE IN PREDICTING GLOMERULAR FILTRATION RATE . ESTIMATED GFR I S NOT APPLICABLE FOR DIALYSIS PATIENTS. LEXA (test code = Mixer Operator Hot Metal ID - LEXA) LITOOperator ID - LITOOperator ID - LITOOperator ID - LITOOperator ID - LITOOperator ID - LITOOperator ID - LITOOperator ID - LITOOperator ID - LITOOperator ID - LITOOperator ID - LITOOperator ID - LITOOperator ID - LITOOperator ID - LITOOperator ID - LITOOperator ID - MOHINDER [facility] CenterCOMPREHENSIVE METABOLIC [id number] 11:44:44 Test Item Value Reference Range Interpretation [...] = 382) CO2 (BEAKER) (test 27 meq/L -29 code = 355) BLOOD UREA NITROGEN 11 mg/dL 06-05 (BEAKER) (test code = 354) CREATININE (BEAKER) [...] S NOT APPLICABLE FOR DIALYSIS PATIEN TS. Mixer Operator Hot Metal ID - LITOOperator ID - LITOOperator ID - LITOOperator ID - LITOOperator ID - LITOOperator ID - LITOOperator ID - LITOOperator ID - LITOOperator ID - LITOOperator ID - LITOOperator ID - LITOOperator ID - LITOOperator ID - LITOOperator ID - LITOOperator ID - LITOOperator ID - LITOPregnancy Screen, [id number] 11:36:39 Test Item Value Reference Range Interpretation Comments Preg Test, Ur (test code = 2112-1) Negative [facility] CenterPregnancy Screen, [id number] 11:36:39 Test Item Value Reference Range Interpretation Comments Preg Test, Ur (test code = 2112-1) Negative [facility] CenterPREGNANCY SCREEN, [id number] 11:36:39 Test Item Value Reference Range Interpretation Comments TEST URINE (BEAKER) (test Negative code = 583) CBC with platelet count + automated [id number] 11:30:26 Test Item Value Reference Range Interpretation Comments WBC (test code = 6690-2) 6.9 See_Comment [A utomated message] The system [employer] generated this result transmitted ref erence range: 4.0 - 10 .0 K/L. The refe rence range was not u sed to interpret this result as normal/abnor mal. RBC (test code = 789-8) 4.50 See_Comment [Au tomated message] The system [employer] generated this result transmitted ref erence range: 4.00 - 5 .00 M/L. The refe rence range was not u sed to interpret this result as normal/abnor mal. MCHC (test code = 786-4) 33.4 See_Comment [A utomated message] The system [employer] generated this result transmitted ref erence range: [...] See_Comment [Aut omated message] 777-3) The system [employer] generated this result transmitted ref erence range: 150 - 43 0 K/CU MM. The referen ce range was not u sed to interpret this result as normal/abnor mal. MPV (test code = 11.6 fL 6.0-11.5 H 34625-8) nRBC (test code = 413) 0 See_Comment [Aut omated message] The system [employer] generated this result transmitted ref erence range: [...] See_Comment [Aut omated message] 670) The system [employer] generated this result transmitted ref erence range: 1.80 - 8 .00 K/L. The refe rence range was not u sed to interpret this result as normal/abnor mal. # Lymphs (test code = 2.88 See_Comment [Auto mated message] 414) The system [employer] generated this result transmitted ref erence range: 1.48 - 4 .50 K/L. The refe rence range was not u sed to interpret this result as normal/abnor mal. # Monos (test code = 0.62 See_Comment [Autom ated message] 415) The system [employer]crow[employer] generated this result transmitted ref erence range: 0.00 - 1 .30 K/L. The refe rence range was not u sed to interpret this result as normal/abnor mal. # Eos (test code = 416) 0.13 See_Comment [Au tomated message] The system [employer] generated this result transmitted ref erence range: 0.00 - 0 .50 K/L. The refe rence range was not u sed to interpret this result as normal/abnor mal. # Baso (test code = 417) 0.04 See_Comment [A utomated message] The system [employer] generated this result transmitted ref erence range: 0.00 - 0 .20 K/L. The refe rence range was not u sed to interpret this result as normal/abnor mal. Immature 1 % 0-0 H Granulocytes-Relative (test code = 2801) Lab Interpretation (test Abnormal code = 04588-7) [facility] + automated wdfe1977-11-12 11:30:26 Test Item Value Reference Range Interpretation Comments WBC (test code = 6690-2) 6.9 See_Comment [A utomated message] The system [employer]crowd generated this result transmitted ref erence range: 4.0 - 10 .0 K/L. The refe rence range was not u sed to interpret this result as normal/abnor mal. RBC (test code = 789-8) 4.50 See_Comment [Au tomated message] The system [employer] generated this result transmitted ref erence range: 4.00 - 5 .00 M/L. The refe rence range was not u sed to interpret this result as normal/abnor mal. MCHC (test code = 786-4) 33.4 See_Comment [A utomated message] The system [employer]crowd generated this result transmitted ref erence range: [...] See_Comment [Aut omated message] 777-3) The system [employer] generated this result transmitted ref erence range: 150 - 43 0 K/CU MM. The referen ce range was not u sed to interpret this result as normal/abnor mal. MPV (test code = 11.6 fL 6.0-11.5 H 86815-1) nRBC (test code = 413) 0 See_Comment [Aut omated message] The system [employer] generated this result transmitted ref erence range: [...] See_Comment [Aut omated message] 670) The system [employer] generated this result transmitted ref erence range: 1.80 - 8 .00 K/L. The refe rence range was not u sed to interpret this result as normal/abnor mal. # Lymphs (test code = 2.88 See_Comment [Auto mated message] 414) The system [employer] generated this result transmitted ref erence range: 1.48 - 4 .50 K/L. The refe rence range was not u sed to interpret this result as normal/abnor mal. # Monos (test code = 0.62 See_Comment [Autom ated message] 415) The system [employer] generated this result transmitted ref erence range: 0.00 - 1 .30 K/L. The refe rence range was not u sed to interpret this result as normal/abnor mal. # Eos (test code = 416) 0.13 See_Comment [Au tomated message] The system [employer] generated this result transmitted ref erence range: 0.00 - 0 .50 K/L. The refe rence range was not u sed to interpret this result as normal/abnor mal. # Baso (test code = 417) 0.04 See_Comment [A utomated message] The system [employer] generated this result transmitted ref erence range: 0.00 - 0 .20 K/L. The refe rence range was not u sed to interpret this result as normal/abnor mal. Immature 1 % 0-0 H Granulocytes-Relative (test code = 2801) Lab Interpretation (test Abnormal code = 90262-4) [facility] W/PLT COUNT & AUTO [id number] 11:30:26 Test Item Value Reference Range Interpretation [...] CT ABDOMEN AND PELVIS WITH CONTRAST*WW*2021-06-19 15:52:04 [facility] : 1980 Sex: FEXAMINATION:CT [...] by: Elder Elias MD 06/19/2021 3:52 PM [facility] [id number] METABOLIC HARRISON *WW* 2021-06-19 15:01:00 Test Item [...] ANG) BUN (test code = 9 mg/dL 05-03 05D) CREATININE (test 0.8 mg/dL 0.6-1.0 code = 03E) GFR (test code = 91 See_Comment [Automated GFR) mL/min/1.73m\\S\\2 message] e system which generated this result transmit abdias reference range : >=90. The reference range was not used to interpret this result as normal/abnormal . GFR 106 See_Comment [Automated CYMRAES (test mL/min/1.73m\\S\\2 message] The code = GFRAA) [...] 17 IU/L 10-49 31A) AMYLASE AND LIPASE *WW*2021-06-19 15:01:00 Test Item Value Reference Range Interpretation [...] the FDA and the [employer] (CAP) are more stringent than those required for this test. Therefore, the result should be interpreted with caution and close attention to other clinical and epidemiological data SERUM MONOCLONAL *WW*2021-06-19 14:31:00 Test Item Value Reference Range Interpretation Comments PREG SRM (test code = PGS) NEGATIVE NEGATIVE URINALYSIS *WW*2021-06-19 14:23:00 Test Item Value Reference Range Interpretation [...] = WAUAM) NO NO CBC (INCLUDES AUTOMATED DIFFERENTIAL)*[id number] 14:12:00 Test Item Value Reference Range Interpretation [...] code = NORMAL WRBCMOR) XR CHEST 2 [id number] 14:30:47 [facility] : 1980 Sex: FExam: Chest x-ray 2 viewsHISTORY: URICOMPARISON: 07/11/2020Location: [id number]:The heart size is normal and lung gonzalez are clear. Osseous structures are intact.IMPRESSION:1. Normal chest.Electronically signed by: Darin Ribeiro MD 06/15/2021 2:30 PM CDT [address] [place], [place] [address]jize3412-44-38 01:30:20 Test Item Value Reference Range Interpretation Comments Ventricular rate (test code = 253) Atrial rate (test code = 255) DE interval (test code = 266) QRSD interval [...] of 30-NOV-2020 14:19,-No significant change was found- [address]2021-07-02 01:30:20 Test Item Value Reference Range Interpretation Comments Ventricular rate (test code = 253) Atrial rate (test code = 255) DE interval (test code = 266) QRSD interval [...] of 30-NOV-2020 14:19,-No significant change was found- [address]2021-07-02 01:30:20 Test Item Value Reference Range Interpretation Comments Ventricular rate (test code = 253) Atrial rate (test code = 255) DE interval (test code = 266) QRSD interval [...] of 30-NOV-2020 14:19,-No significant change was found- [facility] wvsmowe9953-59-14 20:37:47 Test Item Value Reference Range Interpretation Comments Urine culture (test SEE COMMENT Bacteriu woody screen code = 6988532) negative. [facility] cipzgna2905-59-12 20:37:47 Test Item Value Reference Range Interpretation Comments Urine culture (test SEE COMMENT Bacteriu woody screen code = 9175986) negative. [facility] rhdefes2659-12-02 20:37:47 Test Item Value Reference Range Interpretation Comments Urine culture (test code = SEE COMMENT 0026113) [facility] Abdomen Pelvis W Ixptrggz9216-33-07 20:24:46EXAMINATION: CT ABDOMEN PELVIS W CONTRAST CLINICAL HISTORY: 40 yearsFemale epigastric abd pain h o pancreatitis TECHNIQUE: Multidetector computed axial tomography of the abdomen and pelvis was performed after the uncomplicated intravenous administration of IV contrast utilizing automated exposure control and/or iterative reconstruction technique to decrease radiation dose. Coronal and sagittal reformatted images created by a dedicated development technologist at the CT scanner were also submitted [...] sagittal reformatted images created by a dedicated development technologist at the CT scanner were also submitted [...] and appendectomy.3.Nonobstructive renal stones.4.Other nonacute findings as above.[id number] Interpretation - Not an Ldpjo9630-60-39 17:06:30SKeiko haney PA-C 02/07/2021 8:21 [facility] [place] Interpretation - Not an OrderPerformed by: Keiko Wright PA-CAuthorized by: Jose Juan Akers MD ECG reviewed by ED Physician inthe absence of a computer systems manager: yes Rate: ECG rate: 64 ECG rate assessment: normal Rhythm: Rhythm: sinus rhythm QRS: QRS intervals: NormalConduction: Conduction: normal ST segments: ST segments: NormalSurgical pathology dhrzrca2311-31-75 13:48:50 Test Item Value Reference Range Interpretation Comments Case number (test code = [id number]) Surgical pathology See link below for report (test code = PDF Lab Report 2255) Result status (test code This is Final Report = [id number]) [id number] [facility] [id number] 13:48:50 Test Item Value Reference Range Interpretation Comments Case number (test code = [id number]) Surgical pathology See link below for report (test code = PDF Lab Report 2255) Result status (test code This is Final Report = [id number]) for [id number] [id number] 13:48:50 Test Item Value Reference Range Interpretation Comments Case number (test code = [id number]) Surgical pathology See link below for report (test code = PDF Lab Report 2255) Result status (test code This is Final Report = [id number]) for [id number] [address]ARS-CoV-2 (COVID-19) RNA [Presence] in Respiratory specimen by JORGE with probe iiyjkailq1410-47-39 22:19:37 Test Item Value Reference Range Interpretation Comments SARS-CoV-2 (COVID-19) RNA Not detected Not-Detected [Presence] in Respiratory specimen by JORGE with probe detection (test code = 00955-4) Whether patient is employed in a healthcare setting (test code = 49885-2) Whether the patient has symptoms related to condition of interest (test code = 22299-0) Patient was hospitalized because of this condition (test code = 76896-1) Whether the patient was admitted to intensive care unit (ICU) for condition of interest (test code = 10896-2) Whether patient resides in a congregate care setting (test code = 81095-3) [facility] 1 [id number] 20:01:45 EXAMINATION: XR ABDOMEN 1 VW CLINICAL HISTORY: Nausea vomiting COMPARISON: None. IMPRESSION: Nonspecific bowel gas pattern. No dilated gas filled loops of bowel. Mildly prominent transverse colon. Surgical clips are seen within the right upper quadrant of the abdomen likely consistent with prior cholec ystectomy. The bones of the abdomen and pelvis are unremarkable. The lung bases are clear. [facility]-[id number] Interface, Radiology Results Incoming 11/30/2020 3:04 PM CDT EXAMINATION: XR ABDOMEN 1 VWCLINICAL HISTORY: Nausea vomitingCOMPARISON: None.IMPRESSION:Nonspecific bowel gas pattern. No dilated gas filled loops of bowel. Mildly prominent transverse colon.Surgical clips are seen within the right upper quadrant of the abdomen likely consistent with prior cholecystectomy.The bones of the abdomen and pelvis are unremarkable.The lung bases are clear.[facility]4JF6953IDLQbjckidunHouston Methodist Baytown HospitalXR Chest 1 Dgkqauqo0270-70-85 20:01:11EXAMINATION: XR CHEST 1 PORTABLE CLINICAL HISTORY: ED patient COMPARISON: Single chest from 01/15/2013 IMPRESSION: An AP radiograph of the chest was submitted for interpretation. The lungs are clear. The mediastinal contours and cardiac silhouette are unchanged and unremarkable. The bones are unremark able. [facility]-[id number] Interface, Radiology Results Incoming 11/30/2020 3:04 PM CDT EXAMINATION: XR CHEST 1 PORTABLECLINICAL HISTORY: EDpatientCOMPARISON: Single chest from 01/15/2013IMPRESSION:An AP radiograph of the chest was submitted for interpretation.The lungs are clear.The mediastinal contours and cardiac silhouette are unchanged and unremarkable.The bones are unremarkable. [facility]9BH5531QGXTjygbfokmHouston Methodist Baytown HospitalAMYLASE AND LIPASE 2020-11-30 06:05:00 Test Item [...] as normal/abnormal . GFR 115 See_Comment [Automated CYMRAES (test mL/min/1.73m\\S\\2 message] The code = GFRAA) [...] 60A) 223 IU/L 73-393 CBC (INCLUDES AUTOMATED DIFFERENTIAL)*[id number] 05:53:00 Test Item Value Reference Range Interpretation [...] (test code = NORMAL WRBCMOR) LIPASE SERUM 2020-11-29 05:49:00 Test Item Value Reference Range Interpretation Comments LIPASE (test code = 60A) 1455 IU/L 73-393 H CARDIAC PROFILE 2020-11-29 05:42:00 Test Item Value Reference Range Interpretation [...] as normal/abnormal . GFR 103 See_Comment [Automated CYMRAES (test mL/min/1.73m\\S\\2 message] The code = GFRAA) [...] 8.3-9.5 L = 09D) CBC (INCLUDES AUTOMATED DIFFERENTIAL)*[id number] 05:21:00 Test Item Value Reference Range Interpretation [...] CT ABDOMEN AND PELVIS WITH CONTRAST*WW*2020-11-29 00:55:01 [facility] : 1980 Sex: FCT abdomen and pelvis without contrastLocation Code: [id number] HISTORY: Abdominal painCOMPARISON: NoneTechnique: Helical CT of [...] Darin Ribeiro MD 11/29/2020 12:55 AM CDT -ArV (RAPID ANTIGEN) WW2020-11-28 23:52:00 Test Item Value Reference Range Interpretation Comments SARS-CoV (ANTIGEN) NEGATIVE NEGATIVE (test code = COVAG) COVID AG (test This test has been code = COVAGC) marketed under the FDA Emergency Use Authorization (EUA) to meet challenges of the COVID-19 pandemic. The validation standards normally enforced by the FDA and the [employer] the [employer] (CAP) are more stringent than those [...] normal/abnormal . GFR 77 See_Comment L [Automated CYMRAES (test mL/min/1.73m\\S\\2 message] The code = GFRAA) system which generated this result transmit abdias reference range : >=90. The reference range was not used to interpret this result as normal/abnormal . EGFR (test code = eGFR BY EGFR) CKD-EPI CALCULATION IS NOT RECOMMENDED FOR PATIENTS UNDER 18 YEARS OF AGE. BUN/CREA (test 13 07-30 code = BCR) CALCIUM (test code [...] this result as normal/abnormal . CARDIAC PROFILE 2020-11-28 22:09:00 Test Item Value Reference Range Interpretation Comments TROPONIN I (test code = A84) <0.015 ng/mL 0.000-0.045 PRO TIME AND PTT 2020-11-28 22:07:00 Test Item Value Reference Range Interpretation [...] Order Code is ANTI-XA CBC (INCLUDES AUTOMATED DIFFERENTIAL)*[id number] 21:53:00 Test Item Value Reference Range Interpretation [...] code = WAUAM) NO NO URINE MONOCLONAL 2020-11-28 21:52:00 Test Item Value Reference Range Interpretation Comments PREG UR (test code = PGU) NEGATIVE NEGATIVE DRUGS OF [id number] 14:41:00 Test Item Value Reference Range Interpretation [...] 200 ng/mL Opiates 2000 ng/mL URINALYSIS WITH [id number] 14:29:00 Test Item Value Reference Range Interpretation [...] UR (test code = USPERM) /HPF NONE [id number] 10:25:00 Test Item Value Reference Range Interpretation Comments SALICYLATE (test code = 94B) 3.0 mg/dL 2.8-20.0 [id number] 10:11:00 Test Item Value Reference Range Interpretation [...] the FDA and the [employer] (CAP) are more stringent than those required for this test. Therefore, the result should be interpreted with caution and close attention to other clinical and epidemiological data AMMONIA [id number] 09:47:00 Test Item Value Reference Range Interpretation Comments AMMONIA (test code = 54A) <10 umol/L 11-32 L LIVER [id number] 09:41:00 Test Item Value Reference Range Interpretation [...] = 31A) 19 IU/L <=78 COMPREHENSIVE METABOLIC [id number] 09:39:00 Test Item Value Reference Range Interpretation [...] = 31A) 19 IU/L <=78 AMYLASE AND [id number] 09:39:00 Test Item Value Reference Range Interpretation Comments AMYLASE (test code = 10A) 36 U/L 28-100 LIPASE (test code = 60A) 84 IU/L 73-393 ALCOHOL BLOOD (ETOH)2020-07-11 09:34:00 Test Item Value Reference Range Interpretation Comments ETOH (test code = HALC) ETHANOL The result is to be used only for medical purposes ALCOHOL (test code = <10 mg/dL <=10 56A) CARDIAC [id number] 09:33:00 Test Item Value Reference Range Interpretation Comments TROPONIN I (test code = A84) <0.015 ng/mL 0.000-0.045 BASIC METABOLIC [id number] 09:30:00 Test Item Value Reference Range Interpretation [...] code = 8.9 mg/dL 8.3-9.5 09D) SERUM [id number] 09:28:00 Test Item Value Reference Range Interpretation [...] = RBCMOR) NORMAL - US TRANSVAGINAL NON [id number] 15:15:00 [facility] 1980 Sex: F Patient Name: RHEA SPARKS Unit No: [id number] EXAMS: CPT CODE: [id number] [place] [address] EXAMINATION: - US TRANSVAGINAL NON OB. LOCATION: B2. HISTORY: ABNORMAL UTERINE BLEEDING. COMPARISON: Pelvic ultrasound dated 07/23/2019. TECHNIQUE: Routine transvaginal pelvic ultrasound wasperformed. FINDINGS: Transvaginal ultrasound of the pelvis demonstrate the uterus to be normal in size, measuring 9.3 cm in length. The endometrial stripe is within normal limits at 0.8 cm. 0.9 cm well-defined oval echogenicity is seen in the endometrial cavity. Bilateral ovaries are normal in size and appearance. The right ovary measures 3.4 x 2.2 [...] MD; RAINA LIND Technologist: Shawn Lopez RDMS; DC TV1 SN [id number] Transcrpt Date/T m/Trnsp: 06/23/2020 (151) Rafael7 Orig Print D/T: S: 06/23/2020 (1516) [facility] NAME: RHEA SPARKS [address] [address] PHYS: UNDEFINED - [place] [address] : 1980 AGE: 39 SEX: F LOC: YOGI PHONE #: [phone] EXAM DATE: 06/23/2020 STATUS: REG CLI FAX #: [phone] RADIOLOGY NO: PAGE 1 Signed ReportCARDIAC PROFILE 2020-06-16 17:51:00 Test Item Value Reference Range Interpretation Comments TROPONIN I (test code = A84) <0.015 ng/mL 0.000-0.045 DRUGS OF ABUSE 2020-06-16 17:51:00 Test Item Value Reference Range Interpretation [...] = USPERM) /HPF NONE CBC (INCLUDES AUTOMATED DIFFERENTIAL)*[id number] 17:36:00 Test Item Value Reference Range Interpretation [...] = NORMAL WRBCMOR) Panel Description: Vaginitis/Vaginosis, DNA [id number] 19:47:00 Test Item Value Reference Range Interpretation Comments Ann species (test code = Negative Negative 81116-7) Gardnerella vaginalis (test code = Negative Negative 6410-5) Trichomonas vaginalis (test code = Positive Negative A 6568-0) [facility] Description: Vaginitis/Vaginosis, DNA [id number] 19:47:00 Test Item Value Reference Range Interpretation Comments Ann species (test code = Negative Negative 52095-2) Gardnerella vaginalis (test code = Negative Negative 6410-5) Trichomonas vaginalis (test code = Positive Negative A 6568-0) [facility] Description: Vaginitis/Vaginosis, DNA [id number] 19:47:00 Test Item Value Reference Range Interpretation Comments Ann species (test code = Negative Negative 71937-6) Gardnerella vaginalis (test code = Negative Negative 6410-5) Trichomonas vaginalis (test code = Positive Negative A 6568-0) [facility] Description: Vaginitis/Vaginosis, DNA [id number] 19:47:00 Test Item Value Reference Range Interpretation Comments Ann species (test code = Negative Negative 47590-6) Gardnerella vaginalis (test code = Negative Negative 6410-5) Trichomonas vaginalis (test code = Positive Negative A 6568-0) [facility] Description: Vaginitis/Vaginosis, DNA [id number] 19:47:00 Test Item Value Reference Range Interpretation Comments Ann species (test code = Negative Negative 78504-7) Gardnerella vaginalis (test code = Negative Negative 6410-5) Trichomonas vaginalis (test code = Positive Negative A 6568-0) [facility] + automated [id number] 17:03:00 Test Item Value Reference Range Interpretation Comments WBC (test code = 6690-2) 11.8 See_Comment H [A utomated message] The system [employer] generated this result transmitted ref erence range: 4.0 - 10 .0 K/L. The refe rence range was not u sed to interpret this result as normal/abnor mal. RBC (test code = 789-8) 4.62 See_Comment [Au tomated message] The system [employer] generated this result transmitted ref erence range: 4.00 - 5 .00 M/L. The refe rence range was not u sed to interpret this result as normal/abnor mal. MCHC (test code = 786-4) 33.0 See_Comment [A utomated message] The system [employer] generated this result transmitted ref erence range: [...] See_Comment [Aut omated message] 777-3) The system [employer] generated this result transmitted ref erence range: 150 - 43 0 K/CU MM. The referen ce range was not u sed to interpret this result as normal/abnor mal. MPV (test code = 12.3 fL 6-11.5 H 00932-6) nRBC (test code = 413) 0 See_Comment [Aut omated message] The system [employer] generated this result transmitted ref erence range: [...] H [Aut omated message] 670) The system [employer] generated this result transmitted ref erence range: 1.80 - 8 .00 K/L. The refe rence range was not u sed to interpret this result as normal/abnor mal. # Lymphs (test code = 1.03 See_Comment L [Auto mated message] 414) The system [employer] generated this result transmitted ref erence range: 1.48 - 4 .50 K/L. The refe rence range was not u sed to interpret this result as normal/abnor mal. # Monos (test code = 0.06 See_Comment [Autom ated message] 415) The system [employer] generated this result transmitted ref erence range: 0.00 - 1 .30 K/L. The refe rence range was not u sed to interpret this result as normal/abnor mal. # Eos (test code = 416) 0.00 See_Comment [Au tomated message] The system [employer] generated this result transmitted ref erence range: 0.00 - 0 .50 K/L. The refe rence range was not u sed to interpret this result as normal/abnor mal. # Baso (test code = 417) 0.02 See_Comment [A utomated message] The system [employer] generated this result transmitted ref erence range: 0.00 - 0 .20 K/L. The refe rence range was not u sed to interpret this result as normal/abnor mal. Immature 0 % 0-0 Granulocytes-Relative (test code = 2801) Lab Interpretation (test Abnormal code = 62270-1) [facility] W/PLT COUNT & AUTO [id number] 17:03:00 Test Item Value Reference Range Interpretation [...] code = 2801) Urinalysis with Microscopic If [id number] 16:51:00 Test Item Value Reference Range Interpretation Comments Color, UA (test code = 5778-6) Yellow Clarity, UA (test code = 5767-9) Clear Specific Tuttle, UA (test code = 1.015 1.001-1.035 5811-5) pH, UA (test code = 5803-2) 8.5 5.0-8.0 H Protein, UA (test code = 22844-0) Negative Negative Glucose, UA (test code = 365) Negative Negative Ketones, UA (test code = 2514-8) Negative Negative Bilirubin, UA (test code = 79622-0) Negative Negative Blood, UA (test code = 12996-9) Negative Negative Nitrite, UA (test code = 5802-4) Negative Negative Leukocytes, UA (test code = 5799-2) Negative Negative Urobilinogen, UA (test code = 0.2 mg/dL 0.2-1 55645-4) Specimen Source (test code = 2795) Lab Interpretation (test code = Abnormal 82804-2) [facility]IN[facility] WITH MICROSCOPIC IF [id number] 16:51:00 Test Item Value Reference Range Interpretation [...] 463) SOURCE(BEAKER) (test code = 2795) CT, SGJUKLK9204-02-01 15:59:00Reason for exam:->EMESISReason for exam:- >Generalized abdominal [...] MDReport Verified Date/Time: 04/03/2020 15:59:20 Reading Location: [facility] Diagnostic Imaging Reading Room - [place] [address] Electronically signed by: Doug MATHEWS 04/03/2020 03:59 PMCT abdomen pelvis with IV [id number] 15:59:00Interface, External Ris In - 04/03/2020 4:01 [...] nonobstructing renal calculi. No hydronephrosis. Signed: Dillon Fordort Verified Date/Time: 04/03/2020 15:59:20 Reading Location: [facility] Diagnostic Imaging Reading Room - [place] [address] [facility] Comprehensive metabolic bpoxj1036-51-00 15:24:00 Test Item Value Reference Range Interpretation Comments Protein, Total (test 7.6 See_Comment [Autom ated code = 2885-2) message] The system which generated this result transmit abdias reference range : 6.0 - 8.5 gm/dL . The reference range was not u sed to interpret th is result as normal/abnormal . Albumin (test code = 4.3 g/dL 3.5-5 17305-9) Alkaline Phosphatase 56 U/L 30-115 (test code = 6768-6) Total Bilirubin (test 0.3 mg/dL 0.1-1.2 code = 1975-2) Sodium (test code = 138 meq/L 403-321 9609-2) Potassium (test code 3.8 meq/L 3.6-5.5 = 2823-3) Chloride (test code = 106 meq/L 98-106 2074-0) CO2 (test code = 18 meq/L 20-29 L 2027-) BUN (test code = 7 mg/dL 10-26 L 3094-0) Creatinine (test code 0.93 mg/dL 0.5-1.2 = 2160-0) Glucose (test code = 129 mg/dL 70-110 H 2345-7) Calcium (test code = 9.2 mg/dL 8.5-10.5 52956-2) AST (test code = 17 U/L 5-40 1920-8) ALT (test code = 11 U/L 5-50 1742-6) EGFR (test code = 67 mL/min/1.73 [place] [address]-3) NOT ACCURATE CREATININE CLEARANCE IN PREDICTING GLOMERULAR FILTRATION RATE . ESTIMATED GFR I S NOT APPLICABLE FOR DIALYSIS PATIEN TS. LINDQUIST (test code = LEXA) Mixer Operator Hot Metal ID - [id number] Lab Interpretation Abnormal (test code = 07237-6) [facility] [id number] 15:24:00 Test Item Value Reference Range Interpretation [...] S NOT APPLICABLE FOR DIALYSIS PATIEN TS. Mixer Operator Hot Metal ID - [id number] METABOLIC [id number] 18:24:00 Test Item Value Reference Range Interpretation [...] (test code = 31A) 44 IU/L <=78 [id number] 18:24:00 Test Item Value Reference Range Interpretation Comments AMYLASE (test code = 10A) 42 U/L 28-100 LIPASE [id number] 18:24:00 Test Item Value Reference Range Interpretation Comments LIPASE (test code = 60A) 58 IU/L 73-393 L URINALYSIS WITH [id number] 18:16:00 Test Item Value Reference Range Interpretation [...] MORPH (test code = RBCMOR) NORMAL URINE [id number] 18:04:00 Test Item Value Reference Range Interpretation Comments PREG UR (test code = PGU) NEGATIVE NEGATIVE Panel Description: Pathology Dqdvwv9712-04-29 16:37:00 Test Item Value Reference Range Interpretation Comments MATER (test code = Comment Material submitted: 05387-7) .endometrium - EMB

Pe rformed by:
Mery Donovan ()

FDIAG (test code = Comment 84876-5) *Diagnosis:E ndometrium, bio psy:- Secretory endom etrium.- Negative for at ypical hyperplasia or malignancy..[facility] 08/27/2019 1532 Local
< br/>Performed by:
Mery Donovan ()

SIGNED (test code = Comment Electron ically signed: 83796-2) .Sofy estrella MD, Pathologist<br/ >
Perfor med by:
[facility] ()

DIANE (test code = Comment Amalia de scription: .1 37915-9) Container, form kanika-filled, labeled with pa tient identification. EMB:Received in formalin is a 3.3 x 3.0 x 0.5 aggregate of mucus and softtissue. The specimen is mireya tered and entirely submit abdias in M8hiyrbwrm./[facility] 08/26/2019 0649 Local

Performed by:
Mery Donovan ()

MICROD (test code = Comment Microsco pic: .Microscopic 52188-2) examination performed.

Perform ed by:
[facility] ()

CPT (test code = Comment CPT 10773-8) .418454

Performed by:
[facility] ()

[facility] Description: Pathology Nngwtc5438-28-15 16:37:00 Test Item Value Reference Range Interpretation Comments MATER (test code = Comment Material submitted: 12652-4) .endometrium - EMB

Pe rformed by:
[facility] ()

FDIAG (test code = Comment 99511-5) *Diagnosis:E ndometrium, bio psy:- Secretory endom etrium.- Negative for at ypical hyperplasia or malignancy..[facility] 08/27/2019 1532 Local
< br/>Performed by:
[facility] ()

SIGNED (test code = Comment Electron ically signed: 60464-9) .Sofy estrella MD, Pathologist<br/ >
Perfor med by:
[facility] ()

DIANE (test code = Comment Amalia de scription: .1 41119-8) Container, form kanika-filled, labeled with pa tient identification. EMB:Received in formalin is a 3.3 x 3.0 x 0.5 aggregate of mucus and softtissue. The specimen is mireya tered and entirely submit abdias in Y1qoyhskau./[facility] 08/26/2019 0649 Local

Performed by:
[facility] [place] ()

MICROD (test code = Comment Microsco pic: .Microscopic 28034-4) examination performed.

Perform ed by:
[facility] ()

CPT (test code = Comment CPT 91570-8) .[id number]

Performed by:
[facility] ()

[facility] Description: Pathology Ntdmke2622-17-84 16:37:00 Test Item Value Reference Range Interpretation Comments MATER (test code = Comment Material submitted: 08700-1) .endometrium - EMB

Pe rformed by:
Mery [facility] ()

FDIAG (test code = Comment 28025-6) *Diagnosis:E ndometrium, bio psy:- Secretory endom etrium.- Negative for at ypical hyperplasia or malignancy..[facility] 08/27/2019 1532 Local
< br/>Performed by:
Mery [facility] ()

SIGNED (test code = Comment Electron ically signed: 66658-0) .Sofy estrella MD, Pathologist<br/ >
Perfor med by:
[facility] ()

DIANE (test code = Comment Amalia de scription: .1 69685-9) Container, form kanika-filled, labeled with pa tient identification. EMB:Received in formalin is a 3.3 x 3.0 x 0.5 aggregate of mucus and softtissue. The specimen is mireya tered and entirely submit abdias in H3uortayau./[facility] 08/26/2019 0649 Local

Performed by:
Mery Donovan ()

MICROD (test code = Comment Microsco pic: .Microscopic 82597-6) examination performed.

Perform ed by:
[facility] ()

CPT (test code = Comment CPT 24248-2) .196644

Performed by:
Mery [facility] ()

[facility] Description: Pathology Jwazfd1064-06-84 16:37:00 Test Item Value Reference Range Interpretation Comments MATER (test code = Comment Material submitted: 00829-6) .endometrium - EMB

Pe rformed by:
Mery [facility] ()

FDIAG (test code = Comment 18867-9) *Diagnosis:E ndometrium, bio psy:- Secretory endom etrium.- Negative for at ypical hyperplasia or malignancy..[facility] 08/27/2019 1532 Local
< br/>Performed by:
Mery [facility] ()

SIGNED (test code = Comment Electron ically signed: 10295-1) .Sofy estrella MD, Pathologist<br/ >
Perfor med by:
[facility] ()

DIANE (test code = Comment Gross de scription: .1 15873-5) Container, form kanika-filled, labeled with pa tient identification. EMB:Received in formalin is a 3.3 x 3.0 x 0.5 aggregate of mucus and softtissue. The specimen is mireya tered and entirely submit abdias in H0otznrvqb./[facility] 08/26/2019 0649 Local

Performed by:
Mery Donovan ()

MICROD (test code = Comment Microsco pic: .Microscopic 68807-2) examination performed.

Perform ed by:
[facility] ()

CPT (test code = Comment CPT 61683-7) .068661

Performed by:
Mery Donovan ()

[facility] Description: Pathology Ewznkg0824-76-32 16:37:00 Test Item Value Reference Range Interpretation Comments MATER (test code = Comment Material submitted: 85059-6) .endometrium - EMB

Pe rformed by:
Mery [facility] ()

FDIAG (test code = Comment 34618-5) *Diagnosis:E ndometrium, bio psy:- Secretory endom etrium.- Negative for at ypical hyperplasia or malignancy..[facility] 08/27/2019 1532 Local
< br/>Performed by:
Mery Donovan ()

SIGNED (test code = Comment Electron ically signed: 16518-4) .Sofy estrella MD, Pathologist<br/ >
Perfor med by:
[facility] ()

DIANE (test code = Comment Amalia de scription: .1 05202-6) Container, form kanika-filled, labeled with pa tient identification. EMB:Received in formalin is a 3.3 x 3.0 x 0.5 aggregate of mucus and softtissue. The specimen is mireya tered and entirely submit abdias in Q8svnnglmc./[facility] 08/26/2019 0649 Local

Performed by:
Mery Donovan ()

MICROD (test code = Comment Microsco pic: .Microscopic 69017-8) examination performed.

Perform ed by:
[facility] ()

CPT (test code = Comment CPT 90099-9) .896925

Performed by:
Mery Donovan [facility])

[facility] Description: Pathology Odfmgp5219-40-32 16:37:00 Test Item Value Reference Range Interpretation Comments MATER (test code = Comment Material submitted: 67283-0) .endometrium - EMB

Pe rformed by:
Mery Donovan ()

FDIAG (test code = Comment 39935-3) *Diagnosis:E ndometrium, bio psy:- Secretory endom etrium.- Negative for at ypical hyperplasia or malignancy..[facility] 08/27/2019 1532 Local
< br/>Performed by:
[facility] ()

SIGNED (test code = Comment Electron ically signed: 72959-9) .Sofy estrella MD, Pathologist<br/ >
Perfor med by:
[facility] ()

DIANE (test code = Comment Amalia de scription: .1 48432-6) Container, form kanika-filled, labeled with pa tient identification. EMB:Received in formalin is a 3.3 x 3.0 x 0.5 aggregate of mucus and softtissue. The specimen is mireya tered and entirely submit abdias in R5skubantd./[facility] 08/26/2019 0649 Local

Performed by:
[facility] ()

MICROD (test code = Comment Microsco pic: .Microscopic 64131-6) examination performed.

Perform ed by:
[facility] ()

CPT (test code = Comment CPT 36071-9) .416775

Performed by:
[facility] ()

AccessHealthDRUGS OF ABUSE *WW*2019-08-23 14:22:00 Test [...] = 01B) 3.9 mmol/L 3.6-5.1 Panel Description: IGP,CtNg,AptimaHPV,rfx16/18,382683-24-43 12:58:00 Test Item Value Reference Range Interpretation Comments CICD10 (test code Comment N93.9Z68.3 0

Perfor = 34715-8) med by:
[facility] ([place])

PERFOR (test code Comment Neftali garcia, = 90519-3) Cytotechnologis t (ASCP)
<br/ >Performed by:
[facility]

IGLBP (test code = [place] 497[address]-4) ThinPrep(R) pap test was screened with t heuse of an image guided system.

[facility]formed by:
[facility] ()

HPV Aptima (test Negative Negative This nuclei c acid code = 04689-0) amplificatio n test detects fourteen high-r iskHPV types (16,18,31,33,35 ,39,45,51,52 ,56,58,59,66,68 ) withoutdifferen tiation.<br/ >
Performed by:
[facility] ()

Chlamydia, Nuc. Negative Negative Acid Amp (test code = 86269-5) Gonococcus, Nuc. Negative Negative Acid Amp (test code = 34321-2) [facility] Description: IGP,CtNg,AptimaHPV,rfx16/18,415176-25-32 12:58:00 Test Item Value Reference Range Interpretation Comments CICD10 (test code Comment N93.9Z68.3 0

Perfor = 69264-3) med by:
[facility] ()

PERFOR (test code Comment Neftali garcia, = 88763-0) Cytotechnologis t (ASCP)
<br/ >Performed by:
[facility] ()

IGLBP (test code = Comment [place] based 56064-1) ThinPrep(R) pap test was screened with t heuse of an image guided system.

Performed by:
[facility] ()

HPV Aptima (test Negative Negative This nuclei c acid code = 33837-7) amplificatio n test detects fourteen high-r iskHPV types (16,18,31,33,35 ,39,45,51,52 ,56,58,59,66,68 ) withoutdifferen tiation.<br/ >
Performed by:
[facility])

Chlamydia, Nuc. Negative Negative Acid Amp (test code = 34029-5) Gonococcus, Nuc. Negative Negative Acid Amp (test code = 85691-6) [facility] Description: IGP,CtNg,AptimaHPV,rfx16/18, 12:58:00 Test Item Value Reference Range Interpretation Comments CICD10 (test code Comment N93.9Z68.3 0

Perfor = 75436-8) med by:
[facility] ()

PERFOR (test code Comment Neftali Garcia jose, = 82663-1) Cytotechnologis t (ASCP)
<br/ >Performed by:
[facility] ()

IGLBP (test code = Comment [place] based 61587-8) ThinPrep(R) pap test was screened with t heuse of an image guided system.

Performed by:
[facility] ()

HPV Aptima (test Negative Negative This nuclei c acid code = 91639-7) amplificatio n test detects fourteen high-r iskHPV types (16,18,31,33,35 ,39,45,51,52 ,56,58,59,66,68 ) withoutdifferen tiation.<br/ >
Performed by:
[facility] ()

Chlamydia, Nuc. Negative Negative Acid Amp (test code = 97139-5) Gonococcus, Nuc. Negative Negative Acid Amp (test code = 15324-4) [facility] Description: IGP,CtNg,AptimaHPV,rfx16/18, 12:58:00 Test Item Value Reference Range Interpretation Comments CICD10 (test code Comment N93.9Z68.3 0

Perfor = 48293-2) med by:
[facility] [place] ()

PERFOR (test code Comment Neftali garcia, = 07232-6) Cytotechnologis t (ASCP)
<br/ >Performed by:
[facility] ()

IGLBP (test code = Comment This [place] id based 60779-7) ThinPrep(R) pap test was screened with t heuse of an image guided system.

Performed by:
[facility] ()

HPV Aptima (test Negative Negative This nuclei c acid code = 89681-4) amplificatio n test detects fourteen high-r iskHPV types (16,18,31,33,35 ,39,45,51,52 ,56,58,59,66,68 ) withoutdifferen tiation.<br/ >
Performed by:
[facility] ()

Chlamydia, Nuc. Negative Negative Acid Amp (test code = 55529-8) Gonococcus, Nuc. Negative Negative Acid Amp (test code = 49434-6) [facility] Description: IGP,CtNg,AptimaHPV,rfx16/18,834191-08-09 12:58:00 Test Item Value Reference Range Interpretation Comments CICD10 (test code Comment N93.9Z68.3 0

Perfor = 81291-8) med by:
[facility] ()

PERFOR (test code Comment Neftali agrcia, = 61432-2) Cytotechnologis t (ASCP)
<br/ >Performed by:
[facility] ()

IGLBP (test code = Comment [place] id based 27213-5) ThinPrep(R) pap test was screened with t heuse of an image guided system.

Performed by:
[facility] ()

HPV Aptima (test Negative Negative This nuclei c acid code = 25592-7) amplificatio n test detects fourteen high-r iskHPV types (16,18,31,33,35 ,39,45,51,52 ,56,58,59,66,68 ) withoutdifferen tiation.<br/ >
Performed by:
[facility] ()

Chlamydia, Nuc. Negative Negative Acid Amp (test code = 62978-3) Gonococcus, Nuc. Negative Negative Acid Amp (test code = 91606-5) [facility] Description: IGP,CtNg,AptimaHPV,rfx16/18,824302-65-62 12:58:00 Test Item Value Reference Range Interpretation Comments CICD10 (test code Comment N93.9Z68.3 0

Perfor = 73820-4) med by:
[facility] ()

PERFOR (test code Comment Neftali garcia, = 82171-4) Cytotechnologis t (ASCP)
<br/ >Performed by:
[facility] ()

IGLBP (test code = Comment [place] based 21803-5) ThinPrep(R) pap test was screened with t heuse of an image guided system.

Performed by:
[facility] ()

HPV Aptima (test Negative Negative This nuclei c acid code = 09683-1) amplificatio n test detects fourteen high-r iskHPV types (16,18,31,33,35 ,39,45,51,52 ,56,58,59,66,68 ) withoutdifferen tiation.<br/ >
Performed by:
[facility] ()

Chlamydia, Nuc. Negative Negative Acid Amp (test code = 46993-0) Gonococcus, Nuc. Negative Negative Acid Amp (test code = 38815-9) [facility]- CT HD/BR W W/O IZJK5432-25-30 10:09:00 Patient Name: RHEA SPARKS Unit No: [id number] EXAMS: CPT CODE: [id number] CT HD/BR W W/OCONT 87168 EXAM: CT Head with and without contrast [...] enhancement. There is no acute intracranial hemorrhage. There is no mass, mass effect, midline shift or extra-axial fluid collection.Brain parenchymal volume andventricular caliber are within normal limits. Perkins-white differentiation is maintained. There is no evidence for acute major vessel infarct. Paranasal sinuses, mastoid air cells and visualized orbital contents are within normal limits. Osseous structures are within normal limits. IMPRESSION: Unremarkable exam. at 1009 Reported and signed by: Wilman Marquis M.D. CC: Vielka Reno III, MD Technologist: Kendrick Bradshaw, RT(R) CTDI: DLP: Trnscrpt:07/28/2019 (1009) t.SDR.RR16 [facility] NAME: RHEA SPARKS [address] [place] [address] PHYS: UNDEFINED [place] [address] : 1980 AGE: 38 SEX: F LOC: ADY PHONE #: [phone] EXAM DATE: 07/28/2019 STATUS: REG CLI FAX #: [phone] RAD #: D/C DT PAGE 1 Signed Report Patient Name: RHEA SPARKS Unit No: [id number] EXAMS: CPT CODE: [id number] CT HD/BR W W/O CONT 90966 (Continued) Orig Print D/T: S: 07/28/2019 (1012) [facility] NAME: RHEA SPARKS [id number] [place] [address] PHYS:UNDEFINED [place] [address] : 1980 AGE: 38 SEX: F 818 LOC: ADY PHONE #: [phone] EXAM DATE: 07/28/2019 STATUS: REG CLI FAX #: [phone] RAD#: D/C DT PAGE 2 Signed ReportPanel Description: Thyrotropin [Units/volume] in Serum or Plasma by Detection limit <= 0.05 mIU/Y2870-16-75 06:37:00 Test Item Value Reference Range Interpretation Comments TSH (test code = 75809-2) 1.900 uIU/mL 0.450-4.500 [facility] Description: Thyrotropin [Units/volume] in Serum or Plasma by Detection limit <= 0.05 mIU/M3430-92-12 06:37:00 Test Item Value Reference Range Interpretation Comments TSH (test code = 18694-7) 1.900 uIU/mL 0.450-4.500 [facility] Description: Thyrotropin [Units/volume] in Serum or Plasma by Detection limit <= 0.05 mIU/L0427-32-23 06:37:00 Test Item Value Reference Range Interpretation Comments TSH (test code = 03685-9) 1.900 uIU/mL 0.450-4.500 [facility] Description: Thyrotropin [Units/volume] in Serum or Plasma by Detection limit <= 0.05 mIU/T0249-24-88 06:37:00 Test Item Value Reference Range Interpretation Comments TSH (test code = 51260-8) 1.900 uIU/mL 0.450-4.500 [facility] Description: Thyrotropin [Units/volume] in Serum or Plasma by Detection limit <= 0.05 mIU/A0094-68-58 06:37:00 Test Item Value Reference Range Interpretation Comments TSH (test code = 54209-8) 1.900 uIU/mL 0.450-4.500 [facility] Description: Thyrotropin [Units/volume] in Serum or Plasma by Detection limit <= 0.05 mIU/S9228-16-45 06:37:00 Test Item Value Reference Range Interpretation Comments TSH (test code = 59046-0) 1.900 uIU/mL 0.450-4.500 [facility] Description: CBC With Differential/Cdnqsutm5817-11-52 06:10:00 Test Item Value Reference Range Interpretation [...] - 15.4

P erf ormed by:
[facility] ([place])

Platelets (test code = 315 x10E3/uL [...] 0 % Not Estab. (test code = 99104-8) Immature Grans (Abs) 0.0 x10E3/uL 0.0-0.1 (test code = 05702-4) NRBC (test code = 77967-9) Hematology Comments: (test code = 31984-4) [facility] Description: CBC With Differential/Cppxvtlh1337-12-58 06:10:00 Test Item Value Reference Range Interpretation [...] 0 % Not Estab. (test code = 88623-7) Immature Grans (Abs) 0.0 x10E3/uL 0.0-0.1 (test code = 33835-7) NRBC (test code = 29180-9) Hematology Comments: (test code = 40729-0) [facility] Description: CBC With Differential/Fnyhbcou8412-86-44 06:10:00 Test Item Value Reference Range Interpretation [...] - 15.4

P erf ormed by:
[facility] ([place])

Platelets (test code = 315 x10E3/uL [...] 0 % Not Estab. (test code = 30388-7) Immature Grans (Abs) 0.0 x10E3/uL 0.0-0.1 (test code = 22186-9) NRBC (test code = 19687-6) Hematology Comments: (test code = 66482-6) [facility] Description: CBC With Differential/Yscxogip5902-45-85 06:10:00 Test Item Value Reference Range Interpretation [...] 0 % Not Estab. (test code = 05803-1) Immature Grans (Abs) 0.0 x10E3/uL 0.0-0.1 (test code = 96915-9) NRBC (test code = 38137-8) Hematology Comments: (test code = 07996-7) [facility] Description: CBC With Differential/Vsegjotf2955-36-94 06:10:00 Test Item Value Reference Range Interpretation [...] - 15.4

P erf ormed by:
[facility] ([place])

Platelets (test code = 315 x10E3/uL [...] 0 % Not Estab. (test code = 62851-1) Immature Grans (Abs) 0.0 x10E3/uL 0.0-0.1 (test code = 63252-0) NRBC (test code = 68015-3) Hematology Comments: (test code = 67042-1) [facility] Description: CBC With Differential/Xrzkbqsh2644-13-73 06:10:00 Test Item Value Reference Range Interpretation [...] - 15.4

P erf ormed by:
[facility] ([place])

Platelets (test code = 315 x10E3/uL [...] 0 % Not Estab. (test code = 97450-1) Immature Grans (Abs) 0.0 x10E3/uL 0.0-0.1 (test code = 70419-1) NRBC (test code = 96402-0) Hematology Comments: (test code = 45214-1) [facility] Description: FSH and IF9873-56-15 05:02:00 Test Item Value Reference Range Interpretation Comments LH (test code = 5.8 mIU/mL Adult Femal e: Follicular 93822-9) phase 2.4 - 12. 6 Ovulation phase 14.0 - 95 .6 Luteal phase 1.0 - 11. 4 Postmenopausal 7.7 - 58.5

P erformed by:
[facility] ()

FSH (test code = 3.3 mIU/mL Adult Fema le: Follicular 89251-2) phase 3.5 - 12 .5 Ovulation phase 4.7 - 21.5 Luteal phase 1. 7 - 7.7 Postmenopausal 25.8 - 134.8

Performed by:
[facility] ()

[facility] Description: FSH and RL0518-78-30 05:02:00 Test Item Value Reference Range Interpretation Comments LH (test code = 5.8 mIU/mL Adult Fema le: Follicular 89095-4) phase 2.4 - 12. 6 Ovulation phase 14.0 - 95 .6 Luteal phase 1.0 - 11. 4 Postmenopausal 7.7 - 58.5

P erformed by:
[facility] ()

FSH (test code = 3.3 mIU/mL Adult Fema le: Follicular 28526-8) phase 3.5 - 12. 5 Ovulation phase 4.7 - 21. 5 Luteal phase 1.7 - 7.7 Postmenopausal 25.8 - 134.8

Performed by:
[facility] ()

[facility] Description: FSH and [id number] 05:02:00 Test Item Value Reference Range Interpretation Comments LH (test code = 5.8 mIU/mL Adult Femal e: Follicular 54554-6) phase 2.4 - 12. 6 Ovulation phase 14.0 - 95.6 Luteal pha se 1.0 - 11.4 Postmenopa usal 7.7 - 58.5

P erformed by:
[facility] ()

FSH (test code = 3.3 mIU/mL Adult Fem smith: Follicular 48347-3) phase 3.5 - 12. 5 Ovulation phase 4.7 - 21. 5 Luteal phase 1.7 - 7.7 Postmenopausal 25.8 - 134.8

Performed by:
[facility] ()

[facility] Description: FSH and KE5219-18-18 05:02:00 Test Item Value Reference Range Interpretation Comments LH (test code = 5.8 mIU/mL Adult Femal e: Follicular 37349-8) phase 2.4 - 12. 6 Ovulation phase 14.0 - 95 .6 Luteal phase 1.0 - 11. 4 Postmenopausal 7.7 - 58.5

P erformed by:
[facility] ()

FSH (test code = 3.3 mIU/mL Adult Fema le: Follicular 54569-0) phase 3.5 - 12. 5 Ovulation phase 4.7 - 21.5 Luteal phase 1. 7 - 7.7 Postmenopausal 25.8 - 134.8

Performed by:
[facility] ()

[facility] Description: FSH and [id number] 05:02:00 Test Item Value Reference Range Interpretation Comments LH (test code = 5.8 mIU/mL Adult Femal e: Follicular 05963-0) phase 2.4 - 12. 6 Ovulation phase 14.0 - 95 .6 Luteal phase 1.0 - 11 .4 Postmenopausal 7.7 - 58.5

P erformed by:
[facility] ()

FSH (test code = 3.3 mIU/mL Adult Fema le: Follicular 69114-5) phase 3.5 - 12. 5 Ovulation phase 4.7 - 21. 5 Luteal phase 1.7 - 7.7 Postmenopausal 25.8 - 134.8

Performed by:
[facility] ()

[facility] Description: FSH and [id number] 05:02:00 Test Item Value Reference Range Interpretation Comments LH (test code = 5.8 mIU/mL Adult Femal e: Follicular 89821-0) phase 2.4 - 12. 6 Ovulation phase 14.0 - 95 .6 Luteal phase 1.0 - 11. 4 Postmenopausal 7.7 - 58.5

P erformed by:
[facility] ()

FSH (test code = 3.3 mIU/mL Adult Fema le: Follicular 83027-1) phase 3.5 - 12. 5 Ovulation phase 4.7 - 21. 5 Luteal phase 1.7 - 7. 7 Postmenopausal 25.8 - 134.8

Performed by:
[facility] ()

[facility]- US TRANSVAGINAL NON [id number] 10:06:00 Patient Name: RHEA SPARKS Unit No: [id number] EXAMS: CPT CODE: [id number] [place] [address] LOCATION: T18 EXAM: - US TRANSVAGINAL NON [...] up to 1.5 cm. Consider MRI of thepelvis for further evaluation. at 1006 Reported and signed by: Mi Early MD CC: Vielka Reno III, MD; Ramiro Lopez MD Technologist: Shawn Lopez [facility] [facility] [place] [id number] Transcrpt Date/Tm/Trnsp: 07/23/2019 (1006) t.SDR.JP19 Orig Print D/T: S: 07/23/2019 (1009) [facility] NAME: RHEA SPARKS [address] [place] [address] PHYS: [place] [address] : 1980 AGE: 38 SEX: F LOC: YOGI PHONE #: [phone] EXAM DATE: 07/23/2019 STATUS: REG CLI FAX #: [phone] RADIOLOGY NO: PAGE 1 Signed Report- US PELVIS [id number] 10:06:00 Patient Name: RHEA SPARKS Unit No: [id number] EXAMS: CPT CODE: [id number] US PELVIS COMPLETE 70680 LOCATION: T18 EXAM: - US TRANSVAGINAL NON [...] cm. Consider endometrial polyp. No focal abnormality uterusor endometrium is seen. Right ovary measures 3.1 x 2.3 x 2.9 cm. Left ovary measures 2.4 x 1.5 x 2.1cm. Normal venous and arterial waveforms of the ovaries noted. No adnexal mass or free fluid is seen. IMPRESSION: Echogenic smooth endometrial thickening measuring up to 1.5 cm. Consider MRI of the pelvis for further evaluation. at 1006 Reported and signed by: Mi Early MD CC: Vielka Reno III, MD; Ramiro Lopez MD Technologist: Shawn Lopez [facility] Transcrpt Date/Tm/Trnsp: 07/23/2019 (1006) t.SDR.JP19 Orig Print D/T: S: 07/23/2019 ( 1009) [facility] NAME: RHEA SPARKS [address] [facility] [address] PHYS: [place] [address] : 1980 AGE: 38 SEX: F : HARIKAYousuf PHONE #: [phone] EXAM DATE: 07/23/2019 STATUS: REG CLI FAX #: [phone] RADIOLOGY NO: PAGE 1 Signed ReportTHYROID PANEL/SCREEN (TSH) 2019-07-06 15:53:00 Test Item Value Reference Range Interpretation Comments TSH (test code = WTSH) 0.972 uIU/mL 0.358-3.740 CBC (INCLUDES AUTOMATED DIFFERENTIAL)*[id number] 15:26:00 Test Item Value Reference Range Interpretation [...] code = NORMAL WRBCMOR) CT FACIAL W/O [id number] 09:30:07Maxillofacial CT without contrast.CLINICAL HISTORY: Severe right [...] VIEWS 2019-05-19 13:24:04Left shoulder, 3 viewsLocation Code: Q2VSBPQKFF HISTORY: Pain of left shoulder jointCOMMENTS: AP views in internal and external rotation along with a transscapularY view of the left shoulder were obtained. There is no acute fracture ormalalignment. The soft tissues are unremarkable.IMPRESSION: No acute abnormality.XR SHOULDER RIGHT 3 VIEWS 2019-05-19 12:47:21Right shoulder, 3 viewsLocation Code: [id number] HISTORY: [id number]: Pain of right shoulder jointCOMMENTS: AP views in internal and external rotation along with a transscapularY view of the right shoulder were obtained. There is no acute fracture ormalalignment. The soft tissues are unremarkable.IMPRESSION: No acute abnormality.U/S PELVIS2019-05-14 13:18:25PELVIC ULTRASOUND:Location code: F4DEUBIDHY HISTORY: Ovarian cystComparison: NoneTECHNIQUE: Transabdominal sonography of [...] 7.3 mg/dL 8.3-9.5 L CBC (INCLUDES AUTOMATED DIFFERENTIAL)*[id number] 05:43:00 Test Item Value Reference Range Interpretation [...] code = NORMAL WRBCMOR) AMYLASE AND LIPASE 2019-05-13 06:09:00 Test Item Value Reference Range Interpretation [...] 7.6 mg/dL 8.3-9.5 L CBC (INCLUDES AUTOMATED DIFFERENTIAL)*[id number] 06:04:00 Test Item Value Reference Range Interpretation [...] follicular cyst with small fluid in the zsl-fq-njtvvuxpxskb to physiological follicular cyst rupture.URINALYSIS WITH MICRO [...] = USPERM) /HPF NONE AMYLASE AND LIPASE 2019-05-12 18:35:00 Test Item Value Reference Range Interpretation Comments AMYLASE (test code = 10A) 86 U/L 28-100 LIPASE (test code = 60A) 394 IU/L 73-393 H COMPREHENSIVE METABOLIC HARRISON 2019-05-12 18:35:00 Test Item Value Reference Range Interpretation [...] = PGS) NEGATIVE NEGATIVE CBC (INCLUDES AUTOMATED DIFFERENTIAL)*[id number] 18:23:00 Test Item Value Reference Range Interpretation [...] NORMAL WRBCMOR) CT ABDOMEN AND PELVIS WITH [id number] 18:23:30LOCATION: H01AIRR: CT ABDOMEN AND PELVIS WITH CONTRASTHISTORY: [id number]: Abdominal pain TECHNIQUE: Ax ial imaging of [...] stable chronic findings as above. COMPREHENSIVE METABOLIC [id number] 17:59:00 Test Item Value Reference Range Interpretation [...] (test code = 31A) 13 IU/L <=78 [id number] 17:59:00 Test Item Value Reference Range Interpretation Comments AMYLASE (test code = 10A) 43 U/L 28-100 TROPONIN [id number] 17:59:00 Test Item Value Reference Range Interpretation Comments TROPONIN I (test code = A84) <0.015 ng/mL 0.000-0.045 LIPASE [id number] 17:54:00 Test Item Value Reference Range Interpretation Comments LIPASE (test code = 60A) 66 IU/L 73-393 L URINALYSIS WITH [id number] 17:54:00 Test Item Value Reference Range Interpretation [...] = USPERM) /HPF NONE PRO TIME AND [id number] 17:51:00 Test Item Value Reference Range Interpretation [...] LMW Heparin. Order Code is ANTI-XA URINE [id number] 17:48:00 Test Item Value Reference Range Interpretation [...] code = RBCMOR) NORMAL CT STONE PROTOCOL [id number] 20:05:41CT abdomen and pelvis without IV contrast.Indication: Flank painLocation: D42Hngnzdjvms: 12/05/2018Technique: CT images of the abdomen and [...] = 60A) 297 IU/L 73-393 COMPREHENSIVE METABOLIC [id number] 19:14:00 Test Item Value Reference Range Interpretation [...] code = 31A) 64 IU/L <=78 SERUM [id number] 19:06:00 Test Item Value Reference Range Interpretation Comments PREG SRM (test code = PGS) NEGATIVE NEGATIVE [id number] 19:02:00 Test Item Value Reference Range Interpretation [...] (test code = RBCMOR) NORMAL COMPREHENSIVE METABOLIC [id number] 15:21:00 Test Item Value Reference Range Interpretation [...] U/L 5-50 (test code = 347) EGFR (NASIMA) (test 85 mL/min/1.73 ESTIMA ABDIAS GFR IS code = 1092) sq m NOT ACCURATE CREATININE CLEARANCE IN PREDICTING GLOMERULAR FILTRATION RATE . ESTIMATED GFR I S NOT APPLICABLE FOR DIALYSIS PATIEN CT, [id number] 15:12:00Reason for exam:->ABDOMINAL PAINReason for exam:->RASHReason for [...] 3.Bilateral, nonobstructing punctate renal stones. Signed: Jb Webbeport Verified Date/Time: 01/26/2019 15:12:35 Reading Location: [facility] B1 C013Y CT Body Reading Room [id number] 15:09:00 Test Item Value Reference Range Interpretation Comments LIPASE (BEAKER) (test code = 749) 116 U/L 6-51 H [id number] 15:01:00 Test Item Value Reference Range Interpretation Comments AMYLASE (BEAKER) (test code = 349) 70 U/L 30-110 CBC W/PLT COUNT & AUTO [id number] 14:28:00 Test Item Value Reference Range Interpretation [...] (BEAKER) (test code = 2801) URINALYSIS W/ [id number] 13:55:00 Test Item Value Reference Range Interpretation [...] 1663) SOURCE(BEAKER) (test code = 2795) SCREEN, [id number] 13:54:00 Test Item Value Reference Range Interpretation Comments TEST URINE (BEAKER) (test Negative code = 583) TISSUE [id number] 14:40:00Surgical Pathology Report Case: [id number] Authorizing Provider: Dalila Boateng, Collected: 01/19/2019 1258 Ordering Location: [facility] Received: 01/19/2019 1325 SERVICES Patho logist: Ashley Laguerre MD Specimen: Gallbladder, Gall Bladder GALLBLADDER, CHOLECYSTECTOMY: - GALLBLADDER WITH MILD CHRONIC INFLAMMATIONMG/pl Signing Pathologist Direct Phone Line: [phone] signed by Ashley Laguerre MD on 01/20/2019 at 2:40 [id number] dyskines iaGallbladder The specimen is received in fixative and designated as "gallbladder" and consists of apink-madison cholecystectomy specimen (7.0 x 3.5 x 2.0 cm). The gallbladder is filled with green viscousbile. However, no gallstones are identified within the specimen or specimen container. The gallbladder mucosa is pink-madison and velvety with no discrete lesions identified. Apple Picker sections of thegallbladder mucosa and cystic duct are submitted into A1.MG/pl Performed [facility], Department of Pathology, [address] [place] [address], [facility], Department of Pathology, [address] [place] [address], [facility], [address] [place] [address], YXFJX OF ABUSE 2018-12-28 08:16:00 Test Item Value [...] 200 ng/mL Opiates 2000 ng/mL COMPREHENSIVE METABOLIC [id number] 08:09:00 Test Item Value Reference Range Interpretation [...] (test code = RBCMOR) NORMAL URINALYSIS WITH [id number] 08:04:00 Test Item Value Reference Range Interpretation [...] code = USPERM) /HPF NONE AMYLASE AND [id number] 08:04:00 Test Item Value Reference Range Interpretation Comments AMYLASE (test code = 10A) 53 U/L 28-100 LIPASE (test code = 60A) 135 IU/L 73-393 ALCOHOL BLOOD (ETOH)2018-12-28 08:04:00 Test Item Value Reference Range Interpretation Comments ETOH (test code = HALC) ETHANOL The result is to be used only for medical purposes ALCOHOL (test code = <10 mg/dL <=10 56A) [id number] 08:01:00 Test Item Value Reference Range Interpretation Comments MAGNESIUM (test code = 48A) 2.3 mg/dL 1.8-2.4 SERUM [id number] 07:59:00 Test Item Value Reference Range Interpretation Comments PREG SRM (test code = PGS) NEGATIVE NEGATIVE GLUCOMETER GLUCOSE- LAB USE [id number] 07:31:00 Test Item Value Reference Range Interpretation Comments GLUCOMETER (test code = 102 mg/dL 70-100 H Mete r ID: GMG) [id number] tor: [address] EN [id number] 10:50:00 Test Item Value Reference Range Interpretation Comments LIPASE (BEAKER) (test code = 749) 80 U/L 6-51 H COMPREHENSIVE METABOLIC [id number] 10:49:00 Test Item Value Reference Range Interpretation [...] S NOT APPLICABLE FOR DIALYSIS PATIEN TS. [id number] 10:41:00 Test Item Value Reference Range Interpretation Comments AMYLASE (BEAKER) (test code = 349) 111 U/L 30-110 H URINALYSIS W/ [id number] 10:33:00 Test Item Value Reference Range Interpretation [...] 1663) SOURCE(BEAKER) (test code = 2795) SCREEN, [id number] 10:29:00 Test Item Value Reference Range Interpretation Comments TEST URINE (BEAKER) (test Negative code = 583) CBC W/PLT COUNT & AUTO [id number] 10:24:00 Test Item Value Reference Range Interpretation [...] 2801) - MRI UP JNT W/O CONT [id number] 12:03:00 Patient Name: RHEA SPARKS Unit No: [id number] EXAMS: CPT CODE: [id number] [place] JNT W/[place] [address] EXAM: - MRI UP JNT W/O CONT [...] IMPRESSION: Limited exam due to motion. Rotator cuff is intact. 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 at 1203 Reported and signed by: Zachary Colin MD CC: Shaq Connell MD; Vielka Reno III, MD Technologist: Kendrick Bradshaw, RT(R) Transcrpt Date/Tm/Trnsp: 12/07/2018 (1203) SoCB5 Orig Print D/T: S: 12/07/2018 (8986) [facility] NAME: RHEA SPARKS [address] [facility] [address] PHYS: Shaq Martí[place] [address] : 1980 AGE: 37 SEX: F LOC: RM PHONE #: [phone] EXAM DATE: 12/07/2018 STATUS: SHAWNEE MACE FAX #: [phone] RADIOLOGY NO: PAGE 1 Signed ReportURINE [id number] 08:58:00 Test Item Value Reference Range Interpretation Comments Culture Observations THREE OR MORE SPECIES (test code = COB1) OF BACTERIA ISOLATED. PROBABLE CONTAMINATION. Culture Observations IDENTIFICATION AND (test code = COB17) SUSCEPTIBILITY NOT INDICATED. RECOLLECTION RECOMMENDED CT STONE PROTOCOL [id number] 13:01:41CT ABDOMEN AND PELVIS WITHOUT CONTRAST, RENAL STONE PROTOCOL:Location code: [id number] HISTORY: Flank painCOMPARISON: 07/04/15TECHNIQUE: Helical CT of [...] bilateral nonobstructing nephrolithiasis since prior exam.AMYLASE AND [id number] 12:22:00 Test Item Value Reference Range Interpretation Comments AMYLASE (test code = 10A) 40 U/L 28-100 LIPASE (test code = 60A) 65 IU/L 73-393 L COMPREHENSIVE METABOLIC [id number] 12:22:00 Test Item Value Reference Range Interpretation [...] = 31A) 12 IU/L <=78 URINALYSIS WITH [id number] 12:18:00 Test Item Value Reference Range Interpretation [...] (test code = USPERM) /HPF NONE SERUM [id number] 12:08:00 Test Item Value Reference Range Interpretation [...] RBCMOR) NORMAL RAD, NASAL BONES, MIN 3 [id number] 14:05:00Reason for Exam:->Fractured noseFINAL REPORT Clinical Diagnosis: Fractured nose Comparison: No comparison Views: Three views of the nasal bones Report:There is no evidence of a fracture, dislocation or radiopaqueforeign body. There is no evidence of a lytic bone lesion. The bone mineralization is normal. The soft tissues are unremarkable. Impression:Negative nasal bone series Signed: Lorne Laroseort Verified Date/Time: 10/16/2018 14:05:41 Reading Location: [facility] Radiology Reading Room - HEPA IMAG INCL GB W [id number] 13:18:00 Patient Name: RHEA SPARKS Unit No: [id number] EXAMS: CPT CODE: [id number] HEPA IMAG INCL GB W PHA 90[address] HIDA scan Location E5 Clinical indication: Nausea After the intravenous administrationof 7. 3 mCi of technetium 99m mebrofenin Images of the abdomen obtained at 1 minute intervals for 60minutes. There is prompt hepatic uptake and excretion with prompt visualization of the common bile duct, gallbladder and small bowel After the intravenous administration of 1 mcg of CCK gallbladder ejection fracture measurement was attempted. Patient experienced abdominal pain and was unable to cooperate for the routine ejection fraction imaging required for calculation. Measurement performed .5 and 20 minutes demonstrate no significant gallbladder [...] MD Technologist: Chanel Tejada, RT(NM) Transcrpt Date/Tm/Trnsp: 10/08/2018 (2281) [place]illa Orig Print D/T: S: 10/08/2018 (6917) [facility] NAME: RHEA SPARKS [address] [address] PHYS: [place] [address] : 1980 AGE: 37 SEX: F LOC: YOGI PHONE #: [phone] EXAM DATE: 10/08/2018 STATUS: REG CLI FAX #: [phone] RADIOLOGY NO: PAGE 1 Signed Report- US ABDOMEN [id number] 10:22:00 Patient Name: RHEA SPARKS Unit No: [id number] EXAMS: CPT CODE: [id number] US ABDOMEN COMPLETE 18047 EXAMINATION: - US ABDOMEN COMPLETE. LOCATION: S17. HISTORY: Nausea, stomach pain, vomiting. COMPARISON: CT abdomen/pelvis 07/10/2017. TECHNIQUE: Examination of the liver, spleen, kidneys, pancreas, gallbladder, bile ducts, aorta and inferior vena cava was performed. FINDINGS: The visualized liver parenchyma is homogeneous in echogenicity. Previously noted [...] unremarkable in size. The right and left kidneymeasure 10.6 cm and 10.3 cm respectively. There is no hydronephrosis. The visualized portions of abdominal aorta and IVC appear unremarkable. IMPRESSION: Gallbladder sludge. at 1022 Reported and signed by: Frank Sousa CC: Snow Cleveland MD Technologist: Shawn Lopez [facility] Transcrpt Date/Tm/Trnsp: 10/08/2018 (1022) t.SDR.ANS4 Orig Print D/T: S: 10/08/2018 (1025) [facility] NAME: RHEA SPARKS [address] [address] PHYS: [place] [address] : 1980 AGE: 37 SEX: F LOC: YOGI PHONE #: [phone] EXAM DATE: 10/08/2018 STATUS: REG CLI FAX #: [phone] RADIOLOGY NO: PAGE 1 Signed Report- MRI C-SPINE W/O [id number] 12:54:00 Patient Name: RHEA SPARKS Unit No: [id number] EXAMS: CPT CODE: [id number] MRI C-SPINE W/OCONT 65073 R16 MRI CERVICAL SPINE WITHOUT CONTRAST INDICATION: [...] The craniocervical junction is normal. The included intracranial structures are grossly normal. The paraspinal soft tissues are normal. Evaluation of the brent vidual levels: C2-3: Normal C3-4: Normal C4-5: Disc osteophyte complex, uncovertebral and facet hypertrophy result in mild spinal canal and moderate bilateral neural foraminal stenosis. C5-6: Normal C6-7: Normal C7-T1: Normal IMPRESSION: Degenerative changes result in moderate bilateral neural foraminal stenosis at C4-C5. at 1254 Reported and signed by: Jonathan Sam MD [facility] NAME: RHEA SPARKS [address] [facility] [address] PHYS: Shaq Martí[place] [address] : 1980 AGE: 37 SEX: F LOC: CharlieAGlobal Tech PHONE #: [phone] EXAM DATE: 09/25/2018 STATUS: REG CLI FAX #: [phone] RADIOLOGY NO: PAGE 1 Signed Report (CONTINUED) Patient Name: RHEA SPARKS Unit No: [id number] EXAMS: CPT CODE: [id number] MRI C-SPINE W/O CONT 47201 (Continued) CC: Shaq Connell MD; Vielka Reno III, MD Technologist: Chanel Tejada, RT(NM) Transcrpt Date/Tm/Trnsp: 09/25/2018 ( 1254) t.KELLYR.VB7 Orig Print D/T: S: 09/25/2018 (1257) [facility] NAME: RHEA SPARKS [address] [facility] [address] PHYS: Shaq Martí[place] [address] : 1980 AGE: 37 SEX: F [facility] PHONE #: [phone] EXAM DATE: 09/25/2018 STATUS: REG CLI FAX #: [phone] RADIOLOGY NO: PAGE 2 Signed Report(MANUAL DIFFERENTIAL) 2017-06-12 15:59:00 Test Item Value Reference Range Interpretation [...] = 762) CBC W/PLT COUNT & AUTO [id number] 15:15:00 Test Item Value Reference Range Interpretation [...] (BEAKER) (test code = 413) URINALYSIS W/ [id number] 15:10:00 Test Item Value Reference Range Interpretation [...] = 1663) SOURCE(BEAKER) (test code = 2795) [id number] 15:09:00 Test Item Value Reference Range Interpretation Comments LIPASE (BEAKER) (test code = 749) 8 U/L 6-51 COMPREHENSIVE METABOLIC [id number] 15:09:00 Test Item Value Reference Range Interpretation [...] NOT APPLICABLE FOR DIALYSIS PATIEN TS. SCREEN, [id number] 14:51:00 Test Item Value Reference Range Interpretation Comments TEST URINE (BEAKER) (test Negative code = 583) 70628& PELVIS W/O [id number] 22:21:08CT ABDOMEN AND PELVISLocation code: E1XPDKEAOKIZP: Flank pain.COMPARISON: None.TECHNIQUE: Volumetric acquisition of abdomen [...] 1. Bilateral nephrolithiasis, without ureteral calculi orhydronephrosis.Urinalysis [id number] 21:08:00 Test Item Value Reference Range Interpretation Comments Color (test code = Yellow Yellow,Straw,Pl N COLOR) yellow Clarity (test code = Clear Clear N CLAR) Specific Tuttle (test 1.034 1.001-1.035 N code = SPGR) [...] code = None /HPF BACT) BHCG, Urine, [id number] 21:04:00 Test Item Value Reference Range Interpretation Comments Preg Qual [Ur] (test code = HUHCG) Negative Negative N URINE [id number] 08:32:00 Test Item Value Reference Range Interpretation Comments CULTURE (BEAKER) (test 30-39,000 col/mL skin code = 1095) layla [id number] 21:20:00 Test Item Value Reference Range Interpretation Comments LIPASE (BEAKER) (test code = 749) 14 U/L 6-51 COMPREHENSIVE METABOLIC [id number] 21:06:00 Test Item Value Reference Range Interpretation [...] PATIEN TS. CBC W/PLT COUNT & AUTO [id number] 20:16:00 Test Item Value Reference Range Interpretation [...] L 0.00-0.20 (test code = 417) SCREEN, [id number] 20:04:00 Test Item Value Reference Range Interpretation Comments TEST URINE (BEAKER) (test Negative code = 583) URINALYSIS W/ [id number] 19:58:00 Test Item Value Reference Range Interpretation [...] 1663) SOURCE(BEAKER) (test code = 2795) URINE [id number] 08:11:00 Test Item Value Reference Range Interpretation Comments CULTURE (BEAKER) (test code = See comment 1095) <10,000 col/mL Proteus speciesCOMPREHENSIVE METABOLIC [id number] 08:43:00 Test Item Value Reference Range Interpretation [...] S NOT APPLICABLE FOR DIALYSIS PATIEN TS. [id number] 08:40:00 Test Item Value Reference Range Interpretation Comments LIPASE (BEAKER) (test code = 749) 7 U/L 6-51 URINALYSIS W/ [id number] 08:40:00 Test Item Value Reference Range Interpretation [...] 1663) SOURCE(BEAKER) (test code = 2795) SCREEN, [id number] 08:34:00 Test Item Value Reference Range Interpretation Comments TEST URINE (BEAKER) (test Negative code = 583) CBC W/PLT COUNT & AUTO [id number] 08:33:00 Test Item Value Reference Range Interpretation [...] K/ L 0.00-0.20 (test code = 417) Notes Date/Time Note Provider Source 2022-04-26 [facility] 17:02:48-00:00 PROGRESS NOTE RHEA SPARKS FACILITY: [facility] Billing #: [id number] Room: [address] [place] [address] MR #: [id number] : 1980 PHYSICIAN: Travis Duran MD ADMISSION DATE: 04/24/2022 DATE: 04/26/2022 SUBJECTIVE: Pleasant 41-year-old female with his tory of pain and other comorbidities, which include but not l imited to, depression, hypercholesterolemia and bipolar dis order. The patient is stable, stated that current regimen i s much better compared to yesterday. During this visit, the pa tient is not in any apparent distress. Family member at the [facility]. PHYSICAL EXAMINATION: VITAL SIGNS: Stable. HEENT: Normocephalic, atraumatic. Pupils are equ al, round and reactive to light and accommodation. Extraocular muscles are intact. NECK: Supple. Good range of motion. CARDIOVASCULAR: Regular rate. ABDOMEN: Obese. Positive bowel sounds. BACK: Deferred. EXTREMITIES: Within normal limits. NEUROLOGICAL: Limited but nonfocal. ASSESSMENT: Kurt female with history of pain and other comorbidities is stable on regimen for pain cont rol. PLAN: 1. Continue current regimen. 2. Follow with the attending provider and the ca re team conservatively. OEO/MODL /[id number] 2022-04-25 [facility] 15:11:23-00:00 CONSULTATION LEVONRHEA Redding FACILITY: [facility] Billing #: [id number] Room: [address] [place] [address] MR #: [id number] : 1980 DATE OF ADMISSION: 04/24/2022 DATE OF CONSULTATION: 04/25/2022 REQUESTING PHYSICIAN: [place] SIGNALS INTELLIGENCE ANALYSIS MANAGER: Travis Duran MD REASON FOR REFERRAL: Pain management input and c ontribution. HISTORY OF PRESENT ILLNESS: The patient is a ple asant 41-year-old female with complaining of pain on t he left lower quadrant of her abdomen radiating to the groin a elizabeth causing limitation in activity of daily living. Pain is associated with some tingling, burning sensation, stated th at she had a recent stent placement. This is the third stent that was placed in many months. The patient is desiring o ptimization of her regimen, stated that she is only allergic to psych drugs and also complaining of pain not being controlle d by all the medicine that has been given. 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 PAST SURGICAL HISTORY: Upper endoscopy multiple times between 2015 and 2017. The patient also had tubal ligati on in 2004, cholecystectomy, right cholecystectomy by laparo scopic method in 2018, cystoscopy, ureteroscopy, lithotripsy, ureteral stent placement in December 2021. The patient with also lit hotripsy in March 2022 and retrograde cystoscopy yesterday, April 24. Other surgical intervention includes colonoscopy , appendectomy, knee surgery with screw placement in 2016. ALLERGIES: THE PATIENT ALLERGIES INCLUDE ABILIFY , CELEXA, CYMBALTA, LITHIUM, PROCHLORPERAZINE, PROZAC, SER OQUEL, TEGRETOL. MEDICATIONS: Current medicine include what has b een started by the care team, these include but not limited to: 1. Cetirizine. 2. Depakote. 3. Famotidine. 4. Pancrelipase. 5. Pyridium. 6. Tamsulosin. 7. Viibryd. 8. The patient is also on hydrocodone 5/325, was given once. 9. Stadol was given once. 10. Dilaudid 0.5 IV was given once. 11. Macrobid. 12. Oxycodone immediate release 5 mg. 13. Status post gentamicin, ditropan and pancrel ipase and vancomycin. PHYSICAL EXAMINATION: GENERAL: The patient is not in any apparent dist ress during this visit. VITAL SIGNS: The patient's vital signs are stabl e. Blood pressure 113/71, pulse is 66, afebrile, 36.6 jean carlos tigrade, respiration 16, saturation 99% on room air. HEENT: Normocephalic, atraumatic. Pupils are equ al, round, and reactive to light and accommodation. Extraoc ular muscles intact. NECK: Supple. Good range of motion. CARDIOVASCULAR: Regular rate and rhythm. LUNGS: Appear clear to auscultation bilaterally. No wheeze or rales. ABDOMEN: Positive bowel sounds, distended, nonte nder. BACK: Spine midline. EXTREMITIES: Appear within normal limit. NEUROLOGICAL: Alert and oriented x3. Cranial ner ves 2 through 12 are grossly intact. LABORATORY DATA: The patient's CBC; WBC 7.8, H a nd H of 12.6 and 37 with platelet of 319,000. The patient met abolic profile appeared to be within normal limits. Normal elec trolytes, normal renal function. BUN is 9, creatinine 0.77 . Remaining metabolic profile significant for glucose of 118 . IMAGING DATA: The patient's radiological imaging no current one at this time. However, review of the record showed a CT that was done on March 18, 2022. CT of the abdom en and pelvis that shows moderate left hydroureteronephrosis w ith radiopaque obstructing stone in place. Moderate associated left perinephric and periurethral fat stranding. The patient had an unchanged punctate bilateral renal calculi measu ring up to 2 mm, interval removal of previously seen right do uble-J stent, stable hepatomegaly and diffuse hepatic steatosi s noted. ASSESSMENT: A pleasant 41-year-old female with c omplaint of left lower quadrant abdominal pain radiating to the groin area. The patient with history of ureteral stone stat us post stent placement and removal and replacement. The patie nt is tolerating regimen that has been noted above. Di scussed with the patient about optimizing regimen, the patien t agreed. PLAN: 1. In view of patient's normal renal function, w e will give ketorolac 30 mg IV x1 and add low-dose gabapenti n to our regimen to see if that will help to alleviate th e pain. In addition, we will continue with the [place] that h as been ordered for pain control. 2. We will also give the patient one dose of met hocarbamol IV piggyback 1 g to see if that will help and follo w up with the attending physician and other providers scottiea tively. OEO/MODL /[id number] 2019-01-19 DALILA BOATENG [facility] 17:39:34-00:00 OPERATIVE/PROCEDURE REPORT RHEA SPARKS FACILITY: [facility] Billing #: [id number] Room: [facility] MR #: [id number] : 1980 DATE OF PROCEDURE: 01/19/2019 SURGEON: Dalila Boateng MD PREOPERATIVE DIAGNOSIS: Biliary dyskinesia. POSTOPERATIVE DIAGNOSIS: Biliary dyskinesia. PROCEDURE PERFORMED: Laparoscopic cholecystectom y. HEALTH CARE MANAGER: Missy James PA-C. COMPLICATIONS: None. ANESTHESIA: General endotracheal anesthesia. ESTIMATED BLOOD LOSS: Less than 10 mL. INDICATION FOR PROCEDURE: The patient is a 38-ye ar-old female, who presents with biliary dyskinesia. The patien t understood the risks, benefits, and complications of the pr ocedure and wants to proceed. DESCRIPTION OF PROCEDURE: The patient was imelda t to the operating suite, placed on operating table. Afte r adequate general anesthesia was obtained, the patient was prepped and draped in the usual sterile fashion. An incision was made over the patient's umbilicus. Through this, trocar wa s placed in the right upper quadrant. The patient's gallblad da was identified and grasped. The cystic duct and pascual ry were dissected out, doubly clamped on the proximal si de, singly clamped on the distal side and then transected. The gallbladder was then removed from the liver bed under direct visualization and removed from the abdomen. Copi ous amount of irrigation was used to irrigate the abdomen. Nee dle and sponge counts were reported by the operative nurse as c orrect. CJA/MODL /[id number]
[2023-01-25] MEDS ORDERED: KETOROLAC 30 MG/ML INJ ONE (21:37)
[2023-01-25] MEDS ORDERED: NA CHLORIDE 0.9% 50 ML ONE ×2 (21:37→23:55)
[2023-01-25] MEDS ORDERED: CEFTRIAXONE 1000 MG/VIAL ONE (21:37)
[2023-01-25] MEDS ORDERED: NA CHLORIDE 0.9% 1,000 ML ONE (21:37)
[2023-01-25] MEDS ORDERED: MORPHINE 4 MG/ML SYR ONE ×2 (21:37→23:55)
[2023-01-25] MEDS ORDERED: ONDANSETRON 4 MG/2 ML VIAL ONE (21:37)
[2023-01-25 21:43] LABS: Specific Gravity 1.027 (1.005-1.030)
[2023-01-25 21:54] LABS: Specific Gravity 1.027 (1.005-1.030); Urine Bacteria None Seen /HPF (<20); Urine Bilirubin NEGATIVE (Negative); Urine Blood 1+ (Negative); Urine Clarity Extremely Turbid (Clear); Urine Color Light-Yellow (Yellow); Urine Glucose NEGATIVE (Negative); Urine Mucus 1+ /HPF (None Seen); Urine Protein 2+ (Negative); Urine RBC >50 /HPF (None Seen); Urine Urobilinogen Normal (Normal); Urine pH 5.5 (5.0-7.0)
[2023-01-25 22:30] LABS: Hematocrit 38.1 % (36.0-45.0); Lymphocytes % 34.8 % (15.3-44.8); MCV 88.7 fL (80-100); RBC Red Blood Cell Count 4.29 M/uL (3.86-4.86)
[2023-01-25 23:20] LABS: ALT/SGPT 24 U/L (13-56); AST/SGOT 12 U/L (15-37); Albumin 3.1 g/dL (3.4-5.0); Alkaline Phosphatase 65 U/L (45-117); BUN Blood Urea Nitrogen 12 mg/dL (7-18); Bicarbonate 26 mEq/L (21-32); Glomerular Filtration Rate 85 ml/min (=/>90); Glucose Level 127 mg/dL (74-106); Lipase 29 U/L (13-75); Potassium 4.2 mEq/L (3.5-5.1); Protein, Total 6.9 g/dL (6.4-8.2); Sodium Level 138 mEq/L (136-145)
[2023-01-25 23:21] LABS: Bilirubin Total < 0.1 mg/dL (0.2-1.0)
[2023-01-25] MEDS ORDERED: METRONIDAZOLE 500mg IVPB 500 MG/100 ML BAG IV ONE (23:42)
[2023-01-25] MEDS ORDERED: METOCLOPRAMIDE 10 MG/2mL INJ ONE (23:55)
--- NOTE | 2023-01-26 00:46 | ER ---
Nurse's Notes [facility] Name: Rhea Dos Santos Age: 42 yrs Sex: Female : 1980 Arrival Date: 01/25/2023 Time: 20:47 Bed 3 Private MD: Diagnosis: Acute right pyelonephritis secondary to nephrostomy infection, urinary tract infection Presentation: 01/25 21:09 Chief complaint: Patient states: pt has a nephrostomy tube and has been passing stones as6 through it all day. pt c/o pain to right flank. Coronavirus screen: At this time, the client does not indicate any symptoms associated with coronavirus-19. Ebola Screen: No symptoms or risks identified at this time. Initial Sepsis Screen: Does the patient meet any 2 criteria? No. Patient's initial sepsis screen is negative. Does the patient have a suspected source of infection? No. Patient's initial sepsis screen is negative. Risk Assessment: Do you want to hurt yourself or someone else? Patient reports no desire to harm self or others. Onset of symptoms was January 23, 2023. 21:09 Acuity: PRASAD 3 as6 21:09 Method Of Arrival: Ambulatory as6 Triage Assessment: 22:26 General: Appears uncomfortable, Behavior is calm, cooperative. 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 - Social history:: Smoking status: Patient denies any tobacco usage or history of. Patient uses street drugs, marijuana. - Family history:: not pertinent. Screenin:25 [facility] ED Fall Risk Assessment (Adult) History of falling in the last 3 months, kd3 including since admission No falls in past 3 months (0 pts) Confusion or Disorientation No (0 pts) Intoxicated or Sedated No (0 pts) Impaired Gait No (0 pts) Mobility Assist Device Used No (0 pt) Altered Elimination No (0 pt) Score/Fall Risk Level 0 - 2 = Low Risk Maintained a safe environment. Abuse screen: Denies threats or abuse. Denies injuries from another. Nutritional screening: No deficits noted. Tuberculosis screening: No symptoms or risk factors identified. Assessment: 22:25 Pain: Complains of pain in low back area and left low back. Neuro: Level of kd3 Consciousness is awake, alert, obeys commands, Oriented to person, place, time, situation. Cardiovascular: Patient's skin is warm and dry. Respiratory: Airway is patent Trachea midline Respiratory effort is even, unlabored, Respiratory pattern is regular, symmetrical. Vital Signs: 21:09 BP 155 / 95; Pulse 100; Resp 18 S; Temp 99(TE); Pulse Ox 96% on R/A; Weight 102.06 kg as6 (R); Height 5 ft. 1 in. (R); Pain 9/10; 22:25 BP 130 / 70; Pulse 91; Resp 16; Pulse Ox 97% on R/A; kd3 23:33 BP 108 / 61; Pulse 83; Resp 16; Pulse Ox 97% on R/A; kd3 01/26 00:16 BP 96 / 53; Pulse 80; Resp 18; Pulse Ox 96% on R/A; kd3 01/25 21:09 Body Mass Index 42.51 (102.06 kg, 154.94 cm) as6 01/25 21:09 Pain Scale: Adult as6 ED Course: 01/25 20:51 Patient arrived in ED. ja2 20:59 Lonnie Walton MD is Attending Physician. sp4 21:09 Arm band placed on. as6 21:12 Triage completed. as6 21:42 Urinalysis w/ reflexes Sent. as7 22:24 Renae Dong, MARIBELL is Primary Nurse. kd3 22:24 Lipase Sent. kd3 22:24 CMP Sent. kd3 22:24 CBC with Diff Sent. kd3 22:25 Inserted saline lock: 22 gauge in right forearm, using aseptic technique. Blood kd3 collected. 22:26 Patient has correct armband on for positive identification. kd3 22:54 CT Abd/Pelvis - Without Contrast In Process Unspecified. EDMS 01/26 00:42 Raz Weaver MD is Referral Physician. sp4 00:59 No provider procedures requiring assistance completed. IV discontinued, intact, kd3 bleeding controlled, No redness/swelling at site. Pressure dressing applied. Administered Medications: 01/25 22:24 Drug: morphine IVP or IV 4 mg Route: IVP; Infused Over: 4 mins; Site: right forearm; kd3 23:54 Follow up: Response: No adverse reaction; No change in condition ll3 22:24 Drug: Ondansetron IVP 4 mg Route: IVP; Site: right forearm; kd3 23:54 Follow up: Response: No adverse reaction ll3 22:24 Drug: Ketorolac IVP 30 mg Route: IVP; Site: right forearm; kd3 23:54 Follow up: Response: No adverse reaction; No change in condition ll3 22:24 Drug: NS 0.9% IV 1000 ml Route: IV; Rate: 1 bolus; Site: right forearm; kd3 01/26 01:00 Follow up: IV Status: Completed infusion; IV Intake: 1000ml kd3 01/25 22:24 Drug: Rocephin - Rocephin (cefTRIAXone) IVPB 1 grams Route: IVPB; Infused Over: 30 kd3 mins; Site: right forearm; 23:54 Follow up: Response: No adverse reaction; IV Status: Completed infusion; IV Intake: [id number] 23:53 Drug: morphine IVP or IV 4 mg Route: IVP; Infused Over: 4 mins; Site: right antecubital;ll3 01/26 01:00 Follow up: Response: No adverse reaction; Pain is decreased kd3 01/25 23:53 Drug: metoCLOPramide IVP 10 mg Route: IVP; Site: right antecubital; ll3 01/26 01:00 Follow up: Response: No adverse reaction kd3 00:03 Drug: metroNIDAZOLE IVPB 500 mg Volume: 100 ml; Route: IVPB; Rate: 200 ml/hr; Infused ll3 Over: 30 mins; Site: right antecubital; 01:00 Follow up: IV Status: Completed infusion; IV Intake: 100ml kd3 00:59 Drug: traMADol PO 50 mg Route: PO; kd3 01:00 Follow up: Response: No adverse reaction kd3 Medication: 01/25 22:26 VIS not applicable for this client. kd3 Intake: 23:54 IV: 50ml; Total: 50ml. ll3 01/26 01:00 IV: 100ml; Total: 150ml. kd3 01:00 IV: 1000ml; Total: 1150ml. kd3 Outcome: 00:45 Discharge ordered by . sp4 00:59 Discharged to home ambulatory. kd3 00:59 Condition: stable 00:59 Discharge instructions given to patient, Instructed on discharge instructions, follow up and referral plans. medication usage, Demonstrated understanding of instructions, follow-up care, medications, Prescriptions given X 4. 01:01 Patient left the ED. kd3 Addendum: 01/28/2023 10:00 Addendum: Culture Results: Positive urine culture. Bacteria is resistant to, has a a5 intermediate sensitivity, or is not tested against prescribed antibiotics. Report given to BRENDAN for further evaluation and then to post doctoral researcher for follow up with patient. Phone call Attempt #1 Spoke to patient, pt reports no improvement of symptoms and reports she has f/u appointment with urologist 01/30/23. Per ARSALAN Murillo, stop Levaquin, continue Flagyl, and start new prescription of Doxycycline, pt was notified and verbalized understanding. Called in Doxycycline 100 mg BID x 10 days per ARSALAN Logan to [facility] pharmacy in [place], [place] (pt's pharmacy). Signatures: Dispatcher [employer] Ebonie Omalley, RN RN aa5 Chanel Berkowitz Ashby, RN RN as6 Linette Hurley RN RN ll3 Renae Dong RN RN kd3 Lizbeth Shields Sergey, MD MD sp4
--- NOTE | 2023-01-26 00:46 | EDPHYS ---
Physician Documentation [facility] Name: Rhea Dos Santos Age: 42 yrs Sex: Female : 1980 Arrival Date: 01/25/2023 Time: 20:47 Bed 3 Private MD: ED Physician Lonnie Walton HPI: 01/25 20:59 This 42 yrs old Female presents to ER via Unassigned with complaints of Low sp4 Back Pain, Bladder Stones. 23:40 Patient is a 42-year-old female with history of kidney nephrostomy on the right side. sp4 Presents with worsening pain around nephrostomy associated with urine sediment in the nephrostomy tube. Patient states that she has had worsening kidney pain and the last 2 days. There is associated right lower back pain. 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 Carbonate; as6 - PMHx: 21:12 Bipolar disorder; depressive disorder; Kidney stone; Pancreatitis; PTSD; as6 - PSHx: 21:12 Appendectomy; Cholecystectomy; as6 - Immunization history:: Client reports having NOT received the Covid vaccine. - Social history:: Smoking status: Patient denies any tobacco usage or history of. Patient uses street drugs, marijuana. - Family history:: not pertinent. ROS: 23:40 Constitutional: Negative for fever, chills, and weight loss, Eyes: Negative for injury, sp4 pain, redness, and discharge, ENT: Negative for injury, pain, and discharge, Neck: Negative for injury, pain, and swelling, Cardiovascular: Negative for chest pain, palpitations, and edema, Respiratory: Negative for shortness of breath, cough, wheezing, and pleuritic chest pain, Abdomen/GI: Negative for abdominal pain, nausea, vomiting, diarrhea, and constipation, Back: Negative for injury and pain, : Negative for injury, bleeding, discharge, and swelling, positive for right kidney nephrostomy, right back pain associated with nephrostomy and sediment in the nephrostomy. MS/Extremity: Negative for injury and deformity, Skin: Negative for injury, rash, and discoloration, Neuro: Negative for headache, weakness, numbness, tingling, and seizure, Psych: Negative for depression, anxiety, Allergy/Immunology: Negative for hives, rash, and allergies Endocrine: Negative for neck swelling, polydipsia, polyuria, polyphagia, and weight changes Hematologic/Lymphatic: Negative for swollen nodes, abnormal bleeding, and unusual bruising Exam: 23:40 Constitutional: This is a well developed, well nourished patient who is awake, alert, sp4 and in no acute distress. Head/Face: Normocephalic, atraumatic. Eyes: Pupils equal round and reactive to light, extra-ocular motions intact. Lids and lashes normal. Conjunctiva and sclera are not injected. Cornea within normal limits. Periorbital areas with no swelling, redness, or edema. ENT: Nares patent. No nasal discharge, no septal abnormalities noted. Tympanic membranes are normal and external auditory canals are clear. Oropharynx with no redness, swelling, or masses, exudates, or evidence of obstruction, uvula midline. Mucous membranes moist. Neck: Trachea midline, no thyromegaly or masses palpated, and no cervical lymphadenopathy. Supple, full range of motion without nuchal rigidity, or vertebral point tenderness. Chest/axilla: Normal chest wall appearance and motion. Nontender with no deformity. No lesions are appreciated. Cardiovascular: Regular rate and rhythm with a normal S1 and S2. No gallops, murmurs, or rubs. Normal PMI, no JVD. No pulse deficits. Respiratory: Lungs have equal breath sounds bilaterally, clear to auscultation and percussion. No rales, rhonchi or wheezes noted. No increased work of breathing, no retractions or nasal flaring. Abdomen/GI: Soft, non-tender, with normal bowel sounds. No distension or tympany. No guarding or rebound. No evidence of tenderness throughout. Back: No spinal tenderness. Noted his right nephrostomy tube, pain associated around the nephrostomy tube, positive right CVA tenderness Skin: Warm, dry with normal turgor. Normal color with no rashes, no lesions, and no evidence of cellulitis. MS/ Extremity: Pulses equal, no cyanosis. Neurovascular intact. Full, normal range of motion. Neuro: Awake and alert, GCS 15, oriented to person, place, time, and situation. Cranial nerves II-XII grossly intact. Motor strength 5/5 in all extremities. Sensory grossly intact. Psych: Awake, alert, with orientation to person, place and time. Behavior, mood, and affect are within normal limits Vital Signs: 21:09 BP 155 / 95; Pulse 100; Resp 18 S; Temp 99(TE); Pulse Ox 96% on R/A; Weight 102.06 kg as6 (R); Height 5 ft. 1 in. (R); Pain 9/10; 22:25 BP 130 / 70; Pulse 91; Resp 16; Pulse Ox 97% on R/A; kd3 23:33 BP 108 / 61; Pulse 83; Resp 16; Pulse Ox 97% on R/A; kd3 01/26 00:16 BP 96 / 53; Pulse 80; Resp 18; Pulse Ox 96% on R/A; kd3 01/25 21:09 Body Mass Index 42.51 (102.06 kg, 154.94 cm) as6 01/25 21:09 Pain Scale: Adult as6 MDM: 01/25 20:59 Patient medically screened. sp4 23:40 Data reviewed: vital signs, nurses notes, lab test result(s), CBC, electrolytes, sp4 hepatic panel, radiologic studies, CT scan. 01/26 00:38 ED course: CT IMPRESSION: 1. No specific acute intra-abdominal findings are noted to sp4 suggest etiology of the patient's abdominal pain. 2. The right kidney demonstrates a percutaneous nephrostomy tube with pigtail catheter situated within the renal pelvis with slight effacement of the renal pelvis fat planes with minimal perinephric haziness. No hydronephrosis, hydroureter or ureterolithiasis. The possibility of infectious process cannot be excluded on noncontrast CT examination. . 00:41 Differential diagnosis: strain, sciatica, Pyelonephritis, nephrostomy infection. ED sp4 course: Patient is stable for discharge home with p.o. levofloxacin and Flagyl. Tramadol as needed for pain, ibuprofen as needed for pain, otherwise follow-up with Dr. Weaver in the office for nephrostomy management. 01/25 20:59 Order name: CBC with Diff; Complete Time: 23:17 sp4 01/25 20:59 Order name: CMP; Complete Time: 23:32 sp4 01/25 20:59 Order name: Lipase; Complete Time: 23:32 sp4 01/25 20:59 Order name: Test, Urine; Complete Time: 23:17 sp4 01/25 20:59 Order name: Urinalysis w/ reflexes; Complete Time: 23:17 sp4 01/25 21:57 Order name: Urine Culture EDOK 01/25 21:22 Order name: CT Abd/Pelvis - Without Contrast 4 01/25 20:59 Order name: IV Saline Lock; Complete Time: 22:24 sp4 01/25 20:59 Order name: Labs collected and sent; Complete Time: 22:24 sp4 Administered Medications: 01/25 22:24 Drug: morphine IVP or IV 4 mg Route: IVP; Infused Over: 4 mins; Site: right forearm; kd3 23:54 Follow up: Response: No adverse reaction; No change in condition 3 22:24 Drug: Ondansetron IVP 4 mg Route: IVP; Site: right forearm; kd3 23:54 Follow up: Response: No adverse reaction 3 22:24 Drug: Ketorolac IVP 30 mg Route: IVP; Site: right forearm; kd3 23:54 Follow up: Response: No adverse reaction; No change in condition 3 22:24 Drug: NS 0.9% IV 1000 ml Route: IV; Rate: 1 bolus; Site: right forearm; 3 01/26 01:00 Follow up: IV Status: Completed infusion; IV Intake: 1000ml 3 01/25 22:24 Drug: Rocephin - Rocephin (cefTRIAXone) IVPB 1 grams Route: IVPB; Infused Over: 30 kd3 mins; Site: right forearm; 23:54 Follow up: Response: No adverse reaction; IV Status: Completed infusion; IV Intake: [id number] 23:53 Drug: morphine IVP or IV 4 mg Route: IVP; Infused Over: 4 mins; Site: right antecubital;3 01/26 01:00 Follow up: Response: No adverse reaction; Pain is decreased 3 01/25 23:53 Drug: metoCLOPramide IVP 10 mg Route: IVP; Site: right antecubital; 3 01/26 01:00 Follow up: Response: No adverse reaction kd3 00:03 Drug: metroNIDAZOLE IVPB 500 mg Volume: 100 ml; Route: IVPB; Rate: 200 ml/hr; Infused ll3 Over: 30 mins; Site: right antecubital; 01:00 Follow up: IV Status: Completed infusion; IV Intake: 100ml kd3 00:59 Drug: traMADol PO 50 mg Route: PO; kd3 01:00 Follow up: Response: No adverse reaction kd3 Disposition Summary: 01/26/23 00:45 Discharge Ordered Location: Home sp4 Problem: new sp4 Symptoms: have improved sp4 Condition: Stable sp4 Diagnosis - Acute right pyelonephritis secondary to nephrostomy infection, urinary tract sp4 infection Followup: sp4 - With: Raz Weaver MD - When: 7 - 10 days - Reason: Recheck today's complaints Discharge Instructions: - Discharge Summary Sheet sp4 - Pyelonephritis, Adult, [id number] sp4 Prescriptions: - Flagyl 500 mg Oral Tablet - take 1 tablet by ORAL route every 8 hours for 10 days; 30 tablet; Refills: 0, sp4 Product Selection Permitted - Ibuprofen 600 mg Oral Tablet - take 1 tablet by ORAL route every 6 hours As needed take with food; 30 tablet; sp4 Refills: 0, Product Selection Permitted - Tramadol 50 mg Oral Tablet - take 1 tablet by ORAL route every 8 hours as needed; 12 tablet; Refills: 0, sp4 Product Selection Permitted - levofloxacin 500 mg Oral Tablet - take 1 tablet by ORAL route once daily for 7 days; 7 tablet; Refills: 0, sp4 Product Selection Permitted Signatures: Dispatcher [employer] Juan Jc RN RN as6 Linette Hurley RN RN ll3 Renae Dong RN RN kd3 Lonnie Walton MD MD sp4
[2023-01-26] MEDS ORDERED: TRAMADOL HCL 50 MG TAB ONE (01:03)
[2023-01-26 01:16] VITALS: TEMP 99
[2023-01-26 01:25] VITALS: BP 96/53; O2SAT 96
--- NOTE | 2023-01-27 10:26 | RAD REPORT ---
EXAM DESCRIPTION: CT - Abdomen Pelvis Wo Contrast - 01/26/2023 2:24 am CLINICAL HISTORY: 42-year-old female with abdominal pain. COMPARISON: 10/17/2022. TECHNIQUE: CT of the abdomen and pelvis was performed without intravenous or oral contrast. Multipla anay reformatted images were provided. This exam was performed according to our departmental dose opti mization program which includes use of automated exposure control, adjustment of the mA and/or kV acc ording to patient size and/or use of iterative reconstruction technique. FINDINGS: Evaluation of solid organ pathology is limited secondary to lack of intravenous contrast. Within these limitations, the following observations are made. Chest: Evaluation through the lung bases reveals no focal opacity, pleural effusion or pneumothorax. Heart size is within normal limits. No pericardial effusion. Abdomen and pelvis: The right kidney demonstrates a percutaneous nephrostomy tube with pigtail catheter situated within t he renal pelvis with slight effacement of the renal pelvis fat planes with minimal perinephric hazine ss. No hydronephrosis, hydroureter or ureterolithiasis. The possibility of infectious process cannot be excluded on noncontrast CT examination. The liver, pancreas, spleen, left kidney and bilateral adrenal glands are within normal limits. Surgical clips at the level of the gallbladder fossa status post cholecystectomy. The vessels are normal in caliber. No abdominopelvic lymph nodes are noted to be pathologically enlarged by CT measurement criteria. The bowel is within normal limits without abnormal bowel wall thickness or bowel dilation. The uterus and adnexa are within normal limits. No free air. No free abdominopelvic fluid collections. The appendix is not identified. The osseous structures are within normal limits. IMPRESSION: 1. No specific acute intra-abdominal findings are noted to suggest etiology of the pat ient's abdominal pain. 2. The right kidney demonstrates a percutaneous nephrostomy tube with pigtail catheter situated wit hin the renal pelvis with slight effacement of the renal pelvis fat planes with minimal perinephric h aziness. No hydronephrosis, hydroureter or ureterolithiasis. The possibility of infectious process ca nnot be excluded on noncontrast CT examination. Electronically signed by: Tegan Weaver MD 01/26/2023 12:13 AM CDT Due to temporary technical issues with the PACS/Fluency reporting system, reports are being signed by the in house radiologist without review as a courtesy to ensure prompt reporting. The interpreting r adiologist is fully responsible for the content of the report.
== END 2023-01-26 01:01 | disposition home or self-care (01) ==
LOC: ER 20:47
DX: T83.512A Infection and inflammatory reaction due to nephrostomy catheter, initial encounter (principal); N10 Acute pyelonephritis; N39.0 Urinary tract infection, site not specified; Z87.442 Personal history of urinary calculi; Z88.8 Allergy status to other drugs, medicaments and biological substances
CPT/HCPCS: 87088; 85025; 81001; 87086; 36415; 81025; 83690; 80053; 74176; 99284; J2765; J2405; J7030; J0696; 87077; 87186

== ENCOUNTER 2023-03-23 09:06 | Emergency (ER) | payer OTHER ==
[2023-03-23] MEDS ORDERED: METOCLOPRAMIDE 10 MG/2mL INJ ONE (09:34)
[2023-03-23] MEDS ORDERED: FAMOTIDINE 20 MG/2 ML VIAL IV ONE (09:34)
[2023-03-23] MEDS ORDERED: KETOROLAC 30 MG/ML INJ ONE (09:34)
[2023-03-23] MEDS ORDERED: NA CHLORIDE 0.9% 1,000 ML ONE (09:34)
[2023-03-23 09:35] LABS: Absolute Lymphocytes (CBC) 3.1 K/uL (0.7-4.9); Hematocrit 40.8 % (36.0-45.0); Lymphocytes % 28.9 % (15.3-44.8); MCV 86.4 fL (80-100); MPV 9.3 fL (7.6-11.3); Platelets 358 thou/uL (152-406); RBC Red Blood Cell Count 4.73 M/uL (3.86-4.86)
[2023-03-23 09:41] LABS: Specific Gravity 1.017 (1.005-1.030)
--- OUTSIDE RECORDS SUMMARY | 2023-03-23 09:41 | XMS REPORT | Continuity of Care Document ---
:1980 Author Organization [facility] t Address [address] [place] [address] Care Team Providers Name Role Phone ALIN VIELKA Primary Care Physician Unavailable JOSE ANDERSON Attending Clinician Unavailable JOSE ANDERSON Attending Clinician Unavailable DAYA LOERA Attending Clinician Unavailable Daya Loera MD Attending Clinician MARK BAILEY Attending Clinician Unavailable Deep WRIGHT, Mark Attending Clinician Doctor Unassigned, Mcbaine Attending Clinician Unavailable Stephen WRIGHT, Megan Attending Clinician MEGAN MITCHELL Attending Clinician Unavailable SERJIO GOLD Attending Clinician Unavailable Serjio Gold MD Attending Clinician SERJIO CUETO Attending Clinician Unavailable Rommel [facility] Raina Triplett Attending Clinician ATABRENT HERNÁNDEZ Attending Clinician Unavailable BRENT CHILD Attending Clinician Unavailable PATY JAMIL Attending Clinician Unavailable JC SHELDON Attending Clinician Unavailable CHANEL KHAN Attending Clinician Unavailable YANDEL BETH Attending Clinician Unavailable PETRONA DIAL Attending Clinician Unavailable Mattie REYNA, Estela Triplett Attending Clinician Unavailable ZULEIKA KAY Attending Clinician Unavailable Dorene Tang MD Attending Clinician Zuleika Kay DO Attending Clinician Danelle Heredia MD Attending Clinician Shanae REYNA, Angela Attending Clinician Unavailable CARL ROSARIO Attending Clinician Unavailable NAYLA MASCORRO Attending Clinician Unavailable Nayla Espinoza Attending Clinician Nighat Purdy RN Attending Clinician Unavailable Lawson Marquez MD Attending Clinician [phone] LAWSON MARQUEZ Attending Clinician Unavailable DORENE TANG Attending Clinician Unavailable EWA LEMUS Attending Clinician Unavailable PRICILLA JAMISON Attending Clinician Unavailable Pricilla Jamison DO Attending Clinician WANYE CAVAZOS Attending Clinician Unavailable Lab, Ang - Db Attending Clinician Unavailable YONIS RIVERA Attending Clinician Unavailable Yonis Rivera MD Attending Clinician JOANNA WEAVER Attending Clinician Unavailable Joanna Weaver MD Attending Clinician Unknown, Attending Attending Clinician Unavailable RANI ORTEGA Attending Clinician Unavailable CATE KAY Attending Clinician Unavailable Jonnathan Watts MD Attending Clinician [phone] Abelardo Gaona Attending Clinician Unavailable Kelvin Calderón MD Attending Clinician DR IQRA GAGE Attending Clinician Unavailable Nidhi South RN Attending Clinician Unavailable Provider, [facility] Attending Clinician Unavailable EMERSON KHALIL Attending Clinician Unavailable JONNATHAN WATTS Attending Clinician Unavailable SATYA ENNIS Attending Clinician Unavailable Julio César MACK, Satya Justin Attending Clinician [phone] Amilcar Ang MD Attending Clinician CARLITO CARMEN Attending Clinician Unavailable Carlito Carmen MD Attending Clinician QUYNH BURLESON Attending Clinician Unavailable Quynh Burleson MD Attending Clinician Juan Carlos Logan MD Attending Clinician BRITTANI GARCIA Attending Clinician Unavailable Orlin AUTO REFINISHERBrittani Attending Clinician Costa VELASCO Attending Clinician Unavailable Costa Nunn Attending Clinician Iqra Hoffman MD Attending Clinician Surjit Scott Attending Clinician Unavailable MAGUE WHITTEN Attending Clinician Unavailable Mague Manriquez Attending Clinician FEDERICO JUAN Attending Clinician Unavailable Juan Carlos Chamorro MD Attending Clinician Libby Hodges MD Attending Clinician Federico Juan MD Attending Clinician Jame Calvillo Attending Clinician Duane Mario MD Attending Clinician Carley Fish MA Attending Clinician Unavailable Nurse, Slmg Sl Uro Attending Clinician Unavailable Ultrasound, Slmg Sl Uro Attending Clinician Unavailable DR MO BRANDON Attending Clinician Unavailable MARINE CAVAZOS Attending Clinician Unavailable Marine Cavazos DO Attending Clinician DR TREVON KC Attending Clinician Unavailable Cora MANAGER GRANT, Kayode Sanchez Attending Clinician [phone] KAYODE LOPEZ Attending Clinician Unavailable Krystle Mckeon CRNA Attending Clinician DR JADA MCGRATH Attending Clinician Unavailable SERA, DR CANDELARIO LYONS Attending Clinician Unavailable Noelle SILVERMAN, Danelle Rm Attending Clinician Unavailable Ewa Lemus MD Attending Clinician DR STORMY ZULETA Attending Clinician Unavailable TOD PHOENIX Attending Clinician Unavailable ARROYO, SON Attending Clinician Unavailable ARROYO, SON Attending Clinician [phone] DR RAMIRO LOPEZ I Attending Clinician Unavailable DR ANTHONY POP Attending Clinician Unavailable Oswald MACK, Jose Juan Jeter Attending Clinician [phone] Philly MACK, Nazanin Thomason Attending Clinician Manuel MACK, Polo Wilson Attending Clinician Tyler MACK, Surjit Shea Attending Clinician [phone] MD NAZANIN PONCE Attending Clinician Unavailable DR CARLOS HAYWARD Attending Clinician Unavailable DR KARTHIKEYAN AGUAYO Attending Clinician Unavailable THOMAS ALICIA Attending Clinician Unavailable THOMAS ALICIA Attending Clinician [phone] DR QUYNH BRADSHAW Attending Clinician Unavailable RAINA LIND Attending Clinician Unavailable RAINA LIND Attending Clinician [phone] RAINA LIND Attending Clinician Unavailable DR JENNYFER MILLER Attending Clinician Unavailable Kinsey Cadena MA Attending Clinician Unavailable Franc Ramirez DO Attending Clinician DR LORNE RUIZ Attending Clinician Unavailable JUAN F FERNANDES DR FRED LOUIS Attending Clinician Unavailable DR JARVIS CORBIN Attending Clinician Unavailable EMANI, MR ABDUL Attending Clinician Unavailable DR JOSE JUAN CLAY Attending Clinician Unavailable DALILA BOATENG Attending Clinician Unavailable DR KRYSTLE LI Attending Clinician Unavailable RUI DICKSON Attending Clinician Unavailable Neel Attending Clinician Unavailable CYNDI COOL Attending Clinician Unavailable KENDRICK SAWANT Attending Clinician Unavailable SERGIO MADISON Attending Clinician Unavailable DAYA LOERA Admitting Clinician Unavailable SERJIO GOLD Admitting Clinician Unavailable PATY JAMIL Admitting Clinician Unavailable JC SHELDON Admitting Clinician Unavailable DANELLE HEREDIA Admitting Clinician Unavailable Danelle Heredia MD Admitting Clinician YONIS RIVERA Admitting Clinician Unavailable JOSE ANDERSON Admitting Clinician Unavailable RANI ORTEGA Admitting Clinician Unavailable Vielka Reno Admitting Clinician Unavailable DR IQRA GAGE Admitting Clinician Unavailable QUYNH BURLESON Admitting Clinician Unavailable BRITTANI GARCIA Admitting Clinician Unavailable Cotsa VELASCO Admitting Clinician Unavailable MAGUE WHITTEN Admitting Clinician Unavailable JONNATHAN WATTS Admitting Clinician Unavailable ALEKSANDR, DR HASSAN Admitting Clinician Unavailable KNOW, DOES_NOT Admitting Clinician Unavailable MARINE CAVAZOS Admitting Clinician Unavailable DR TREVON KC Admitting Clinician Unavailable DR JADA MCGRATH Admitting Clinician Unavailable SERA, DR CANDELARIO LYONS Admitting Clinician Unavailable DR STORMY ZULETA Admitting [...] FERNANDES, DR DONAVAN REDDING Admitting Clinician Unavailable DR JARVIS CORBIN Admitting Clinician Unavailable EMANI, MR CHANTELL Admitting Clinician Unavailable DR JOSE JUAN CLAY Admitting Clinician Unavailable DALILA BOATENG Admitting Clinician Unavailable DR KRYSTLE LI Admitting Clinician Unavailable Neel Admitting Clinician Unavailable CYNDI COOL Admitting Clinician Unavailable Payers Payer Name Policy Type Policy Number Effective Date Expiration Date S [facility] [place] STAR PLUS [id number] 2021 00:00:00 [facility] STAR [id number] 2021 PLAN 00:00:00 [facility] [id number] 2022 00:00:00 [facility] [id number] 2022 ST[place] - [place] 00:00:00 (MEDICAID REPLACEMENT - HMO) Problems Condition Condition Condition Status Onset Resolution Last Treating Co mments Source Name Details Category Date Date Treatment Clinician Date Acute Acute Disease Active Univers non-recurr non-recurr 01-14 it y of ent ent 00:00: [place] frontal frontal 00 Medical sinusitis sinusitis Bran ch Chronic Chronic Disease Active Univers seasonal seasonal 06 ity of allergic allergic 00:00: [place] rhinitis rhinitis 00 Medica l due to due to Branch pollen pollen Encounter Encounter Disease Active Uni vers to discuss to discuss 01-14 it y of test test 00:00: [place] results results 00 Medical Branch Obesity Obesity Disease Active Univers (BMI (BMI 4-15 ity of 30-39.9) 30-39.9) 00:00: [place] 00 Medical Branch SOB SOB Disease Active Univers (shortness (shortness 4-14 it y of of breath) [place] breath[place] Morbid Morbid Disease Active Univers obesity obesity 4-14 [place] of with body [place] body 00:[place] mass index 00 Me dical of of Branch 40.0-49.9 40.0-49.9 Swelling Swelling Disease Active Unive rs of lower of lower 1-11 ity of leg leg 00:00: [place] Medical Branch Edema of Edema of Disease Active Unive rs hand hand 1-11 ity of 00:00: [place] 00 Medical Branch Acute Acute Disease Active Univers right right 1-10 ity of flank pain flank pain [place] Urinary Urinary Disease Active Univers tract tract 1-10 [place] of infection infection 00[place] without without 00 Medical hematuria, hematuria, Br anch site site unspecifie unspecifie d d Intractabl Intractabl Disease Active [facility] pain e pain 9[facility]16 [facility] 00:[facility]: Medical 00 [place] Flank pain Flank pain Disease Active [facility]14 [facility] 00[facility]00: [facility] Ureteral Ureteral Disease Active [facility] stricture, stricture, 9-14 Marilyn kes left left 00:00: Medical 00 Center Anxiety Anxiety Disease Active Univers 8-25 ity of 00:00: [place] 00 [facility] Bipolar Bipolar Disease Active Univers affective affective 8-25 ity of disorder disorder 00:00: [place] in in 00 Medical remission remission Bran ch Depression Depression Disease Active U nivers 8-25 ity of 00:00: [place] [facility] PTSD PTSD Disease Active Univers (post-trau (post-trau 8-25 it y of matic matic 00:00: [place] stress stress 00 Medical disorder) disorder) Bran ch Esophageal Esophageal Disease Active U nivers reflux reflux 8-25 ity of 00:00: [place] [facility] Nephrolith Nephrolith Disease Active U nivers iasis iasis 8-25 ity of 00:00: [place] 00 [facility] Hydronephr Hydronephr Disease Active [facility] osis, osis, 8- [facility] unspecifie unspecifie 00:00: Me dical d d 00 [place] hydronephr hydronephr osis type osis type Intractabl [...] Active 2015-[address] d d 2-08 [facility] abdominal abdominal 00:00: Medi darren pain [...] Unive rs INGREDI 03-07 ity of 00:00: [place] 00 Medical Branch Willard Drug Active Other - See Univ ers Allergy comments 03-07 ity of 00:00: Medical Branch ARIPIPRA DRUG Active Unknown-Cmnt Un manoj ZOLE INGREDI 01-15 ity of 00:00: [place] 00 Medical Branch DULOXETI DRUG Active Unknown-Cmnt Un manoj NE INGREDI 01-15 ity of 00:00: [place] 00 Medical Branch Aripipra Propensi Active Unknown - Can't Uni vers zole ty to See comments 01-15 remember it y of adverse 00:00: [place] reaction 00 Medical s Branch Duloxeti Propensi Active Unknown - Cant Uni vers ne ty to See comments 01-15 remember it y of adverse 00:00: the [place] reaction 00 reaction Medica l s Branch prochlor DA Active U 2016-08 [facility] perazine 09-09 [facility]: [address] carbamaz DA Active U 2016-08 [facility] epine 09-09 00:00: [address] fluoxeti DA Active U 2016-08 [facility] ne 09-09 00:00: [address] citalopr DA Active U 2016-08 [facility] am 09-09 00:00: [address] quetiapi DA Active U 2016-08 [facility] ne 09-09 00:00: [address] duloxeti DA Active U 2016-08 [facility] ne 09-09 00:00: [address] aripipra DA Active U 2016-08 [facility] zole 09-09 00:00: [address] prochlor DA Active U 2016-08 [facility] perazine 09-09 00:00: [address] carbamaz DA Active U 2016-08 [facility] epine 09-09 00:00: [address] fluoxeti DA Active U 2016-08 [facility] ne 09-09 00:00: [address] citalopr DA Active U 2016-08 [facility] am 09-09 00:00: [address] quetiapi DA Active U RAPID HEART 2016-08 [facility] ne RATE 09-09 00:00: [facility] duloxeti DA Active U ILL 2016-08 [facility] ne 09-09 00:00: [facility] aripipra DA Active U ILL 2016-08 [facility] zole 09-09 00:00: [facility] Aripipra Propensi Active Other (See Cant Me [...] Center s ARIPIPRA Allergy Active [facility] ZOLE 10-26 00:00: 00 Citalopr Propensi Active Other (See Agitation [facility] to Comments) 09-19 [facility] adverse 00:00: Medical reaction 00 Center s Duloxeti Propensi Active Warm [facility] ty to 09-19 sensation [facility] adverse 00:00: form top Medical reaction 00 of head Center s and cold sensation coming from feet CITALOPR Allergy Active Other [facility] AM 09-19 00:00: 00 DULOXETI Allergy Active [facility] NE 09-19 00:00: 00 Fluoxeti Drug Active 2013-08 [facility]ina [facility] 00:[facility]: while Medical 00 awake and Center asleep Quetiapi Drug Active 2013-[address] ne Allergy - [facility] 00:[facility]: Medical 00 Center Carbamaz Drug Active 2013-[address] epine Allergy - [facility] 00:00: Medical 00 Center FLUOXETI Allergy Active 2013-08 [facility] NE 2 00:00: 00 QUETIAPI Allergy Active 2013-08 [facility] NE 2 00:00: 00 CARBAMAZ Allergy Active 2013-08 [facility] EPINE 2 00:00: 00 Levaquin DA Active Unknown 2013-08 [facility] 08-11 Medical 00:00: Center 00 Prochlor Propensi Active Other (See Muscle [facility] perazine ty to Comments) 7 spasms [facility] adverse 00:00: Medical reaction 00 [place] s Fluoxeti Propensi Active Hallucinatio Univers ne ty to ns 7-30 ity of adverse 00:00: [place] reaction Medical s Branch Quetiapi Propensi Active Other - See Speech U nivers ne ty to comments 730 problems ity of adverse 00:00: [place] reaction Medical s Branch Carbamaz Propensi Active Rash Univer s epine ty to 730 ity of adverse 00:00: [place] reaction Medical s Branch CITALOPR DRUG Active Other-Cmnt Univ ers AM INGREDI 730 ity of 00:00: [place] [facility] FLUOXETI DRUG Active Hallucinates Un manoj NE INGREDI 730 ity of 00:00: [place] [facility] QUETIAPI DRUG Active Other-Cmnt Univ ers NE INGREDI 7-30 ity of 00:00: [place] 00 Medical Branch CARBAMAZ DRUG Active Rash Univers EPINE INGREDI 730 ity of 00:00: [place] [facility] Citalopr Propensi Active Other - See agreesiv e Univers am ty to comments 7-30 ity of adverse 00:00: [place] reaction 00 Medical s Branch PROCHLOR Allergy Active Other [facility] PERAZINE 03-09 00:00: 00 Quetiapi Propensi Active Palpitations Speech Univers ne ty to 5-27 problems ity of adverse 00:00: [place] reaction 00 Medical s Branch QUETIAPI DRUG Active Low Other-Cmnt Univ ers NE INGREDI 5-27 ity of 00:00: [place] 00 Medical Branch Tegretol DA Active Severe [facility] 08-11 Medical 00:00: Center 00 Cymbalta DA Active Severe [facility] 08-11 Medical 00:00: Center 00 Seroquel DA Active Moderate [facility] 08[facility]11 Medical 00:00: Center 00 Celexa DA Active Severe [facility] 08-11 Medical 00:00: Center 00 Prozac DA Active Unknown [facility] 08-11 Medical 00:00: Center 00 Abilify DA Active Unknown [facility] Social History Social Habit Start Date Stop Date Quantity Comments Source Nutritional 2019-07-26 [facility] observable 00:00:00 Health-related 2019-07-26 [facility] Behavior 00:00:00 Gender identity [facility] Sexual orientation [facility] Exposure to 2022-12-28 2023-01-07 Not sure [facility] SARS-CoV-2 (event) 00:00:00 14:52:00 Medica l Branch History SDMI 2022-11-22 2022-11-22 5 [facility] Social Connections 00:00:00 00:00:00 Medica l Branch Phone History SDOH 2022-11-22 2022-11-22 7 [facility] Social Connections 00:00:00 00:00:00 Medica l Branch Living History SDMI 2022-11-22 2022-11-22 5 [facility] Financial 00:00:00 00:00:00 Medical Branch History SDOH Food 2022-11-22 2022-11-22 1 [facility] 00:00:00 Medical Branch History SDOH Food 2022-11-22 2022-11-[address] [facility] Scarcity 00:00:00 00:00:00 Medical Branch History SDOH 2022-11-22 2022-11-22 2 [facility] Transport Med 00:00:00 00:00:00 Medical Bra nch History SDOH 2022-11-22 2022-11-22 2 [facility] Transport Non-Med 00:00:00 00:00:00 Medical Branch History SDOH 2022-11-22 2022-11-22 2 [facility] Housing Unable to 00:00:00 00:00:00 Medical Branch Pay History SDMI 2022-11-22 2022-11-22 1 [facility] Housing Places 00:00:00 00:00:00 Medical Br anch Lived History SDOH 2022-11-22 2022-11-22 2 [facility] Housing Homeless 00:00:00 00:00:00 Medical Branch Last Year History [facility] 2022-11-22 2022-11-22 1 [facility] Alcohol Frequency 00:00:00 00:00:00 Medical Branch History SDMI 2022-11-22 2022-11-22 0 [facility] Physical Activity 00:00:00 00:00:00 Medical Branch DPW History [facility] 2022-11-22 2022-11-22 0 [facility] Physical Activity 00:00:00 00:00:00 Medical Branch MPS History SDMI 2022-10-31 2022-10-31 98 [facility] Social Connections 00:00:00 00:00:00 Medica l Branch Get Together History SDMI 2022-10-31 2022-10-31 98 [facility] Social Connections 00:00:00 00:00:00 Medica l Branch Catholic History SDMI 2022-10-31 2022-10-31 2 [facility] Social Connections 00:00:00 00:00:00 Medica l Branch Membership History SDMI 2022-10-31 2022-10-31 98 [facility] Social Connections 00:00:00 00:00:00 Medica l Branch Meetings History SDMI 2022-10-31 2022-10-31 5 [facility] Stress 00:00:00 00:00:00 Medical Branch History SDMI 2022-10-31 2022-10-31 98 [facility] Alcohol Std Drinks 00:00:00 00:00:00 Medica l Branch History SDOH 2022-10-31 2022-10-31 98 [facility] Alcohol Binge 00:00:00 00:00:00 Medical Bra [facility] Alcohol intake 2022-06-12 2022-06-12 [facility] 00:00:00 00:00:00 non-drinker of alcohol (finding) History of Social 2022-06-12 2022-06-12 [facility] function 00:00:00 00:00:00 Cigarette 2022-04-04 2022-04-04 [facility] pack-years 00:00:00 00:00:00 Medical Branch Tobacco use and 2022-04-04 2022-04-[address] [facility] exposure 00:00:00 00:00:00 tobacco non-user Medical Branch History of tobacco 1990-10-08 2020-09-19 Cigarette Smoker [facility] use 00:00:00 00:00:00 Medical Branch Cigarettes smoked 2018-03-30 2018-03-30 [facility] current (pack per 00:00:00 00:00:00 day) - Reported Sex Ass[birth year] At [birth year] [facility] 00:00:00 00:00:00 Smoking Status Start Date Stop Date Source Ex-smoker 2022-04-04 00:00:00 2022-04-04 [facility] 00:00:00 Medical Branch Unknown if ever smoked [facility] Never smoker [facility] Smokes tobacco daily 2018-03-30 00:00:00 [facility] Medications Ordered Filled Start Stop Current Ordering Indication Dosage Frequency Signature Comments Components Source Medication Medication Date Date Medication? Clinician (SIG) Name Name ondansetron 2022- No 4mg 4 mg, Slow Univers (ZOFRAN 03-17 IV Push, ity of (PF)) 02:15: 02:24 ONCE, 1 [place] injection 4 00 :00 dose, On Medi darren mg 03/16/23 Branch at 2115, MEGHA morpHINE (4 2022- No 4mg 4 mg, Slow Univers mg/mL) 03-17 IV Push, ity of injection 4 02:15: 02:24 [place]CE[place] 1 [place] mg 00 :00 dose, On Medical 03/16/23 Branch at 2115, STAT NaCl 0.9% 2022- No 1000mL at 999 Uni vers (NS) bolus 03-17 mL/hr, ity of infusion 01:15: 03:30 1,000 mL, [place] as 1,000 mL 00 :00 IV Medical Piggyback, Branch ONCE, 1 dose, On 03/16/23 at 2014, STAT ketorolac 0 2022- No 30mg 30 mg, Unive rs (TORADOL) 03-17 Slow IV ity of injection 01:15: 00:53 Push, [place] 30 mg 00 :00 ONCE, 1 Medical dose, On Branch 03/16/23 at 2014, MEGHA ketorolac 2022-0 Yes [id number] 10mg Take 1 U nivers 10 mg 8-06 tablet by ity of tablet 00:00: mouth [place] 00 every 8 Medical (eight) Branch hours as needed for Pain (scale 7-10) or Pain (scale 4-6). ondansetron Yes [id number] 4mg Take 1 Univers 4 mg 8-06 tablet by ity of disintegrat 00:00: mouth [place] ing tablet 00 every 12 Medic al (twelve) Branch hours as needed for Nausea and Vomiting (N/V). HYDROcodone 2022- Yes [id number] 1{tbl} Take 1 U nivers -acetaminop 03-1614 tablet by it y of hen 5-325 00:00: 04:59 mouth [place] mg tablet 00 :00 every 6 Medical (six) Branch hours as needed for Pain (scale 7-10) for up to 7 days. Indication s: acute pain albuterol Yes [id number] 2{puff} Inhale 2 Univers 90 8-03 Puffs ity of mcg/actuati 00:00: every 6 [place] on inhaler 00 (six) Medical hours as Branch needed for Wheezing or Shortness of Breath. albuterol Yes [id number] 2{puff} Inhale 2 Univers 90 8-03 Puffs ity of mcg/actuati 00:00: every 6 [place] on inhaler 00 (six) Medical hours as Branch needed for Wheezing or Shortness of Breath. loratadine 0 Yes [id number] 10mg Take 1 U nivers 10 mg 8-01 tablet by ity of tablet 00:00: mouth in [place] 00 the Medical morning. Branch famotidine 0 Yes [id number] 40mg Take 1 Univers 40 mg 8- tablet by ity of tablet 00:00: mouth in [place] 00 the Medical morning. Branch benzonatate 2022-0 Yes [id number] Take 1-2 Univers (TESSALON 8-01 capsules ity of PERLES) 100 00:00: three [place] mg capsule 00 times a Medica l day as Branch needed for cough. albuterol 2022-0 Yes [id number] 2{puff} Inhale 2 Univers 90 8-01 Puffs ity of mcg/actuati 00:00: every 6 [place] on inhaler 00 (six) Medical hours as Branch needed for Wheezing or Shortness of Breath. tiZANidine 2022-0 Yes [id number] 2mg Take 1 U nivers 2 mg tablet 8-01 tablet by ity of 00:00: mouth [place] 00 every 6 Medical (six) Branch hours as needed for Pain (scale 4-6). loratadine 2022-0 Yes [id number] 10mg Take 1 U nivers 10 mg 8-01 tablet by ity of tablet 00:00: mouth in [place] 00 the Medical morning. Branch famotidine 2022-0 Yes [id number] 40mg Take 1 Univers 40 mg 8-01 tablet by ity of tablet 00:00: mouth in [place] 00 the Medical morning. Branch benzonatate 0 Yes [id number] Take 1-2 Univers (TESSALON 8-01 capsules ity of PERLES) 100 00:00: three [place] mg capsule 00 times a Medica l day as Branch needed for cough. albuterol 0 Yes [id number] 2{puff} Inhale 2 Univers 90 8-01 Puffs ity of mcg/actuati 00:00: every 6 [place] on inhaler 00 (six) Medical hours as Branch needed for Wheezing or Shortness of Breath. tiZANidine 2022-0 Yes [id number] 2mg Take 1 U nivers 2 mg tablet 8-01 tablet by ity of 00:00: mouth [place] 00 every 6 Medical (six) Branch hours as needed for Pain (scale 4-6). loratadine 2022-0 Yes [id number] 10mg Take 1 U nivers 10 mg 8-01 tablet by ity of tablet 00:00: mouth in [place] 00 the Medical morning. Branch famotidine 2022-0 Yes [id number] 40mg Take 1 Univers 40 mg 8-01 tablet by ity of tablet 00:00: mouth in [place] 00 the Medical morning. Branch benzonatate 0 Yes [id number] Take 1-2 Univers (TESSALON 8-01 capsules ity of PERLES) 100 00:00: three [place] mg capsule 00 times a Medica l day as Branch needed for cough. tiZANidine 0 Yes [id number] 2mg Take 1 U nivers 2 mg tablet 8-01 tablet by ity of 00:00: mouth [place] 00 every 6 Medical (six) Branch hours as needed for Pain (scale 4-6). loratadine 2022-0 Yes [id number] 10mg Take 1 U nivers 10 mg 8-01 tablet by ity of tablet 00:00: mouth in [place] 00 the Medical morning. Branch famotidine 0 Yes [id number] 40mg Take 1 Univers 40 mg 8-01 tablet by ity of tablet 00:00: mouth in [place] the Medical morning. Branch benzonatate 0 Yes [id number] Take 1-2 Univers (TESSALON 8-01 capsules ity of PERLES) 100 00:00: three [place] mg capsule 00 times a Medica l day as Branch needed for cough. tiZANidine Yes [id number] 2mg Take 1 U nivers 2 mg tablet 8-01 tablet by ity of 00:00: mouth [place] 00 every 6 Medical (six) Branch hours as needed for Pain (scale 4-6). albuterol 2022- No [id number] 2{puff} Inhale 2 Univers 90 8- 08-03 Puffs ity of mcg/actuati 00:00: 00:00 every 6 [place] on inhaler 00 :00 (six) Medical hours as Branch needed for Wheezing or Shortness of Breath. bromphenira 2022- Yes [id number] 5mL Take 5 mL [facility] mine-pseudo 7-02-28 by mouth 4 i ty of ephedrine-D 00:00: 04:59 (four) Renato as M (BROMFED 00 :00 times Medical DM) 2-30-10 daily as Bran ch mg/5 mL needed for syrup Congestion /Allergies or Cough for up to 10 days. bromphenira 0 2022- Yes [id number] 5mL Take 5 mL [facility] mine-pseudo 7-02-28 by mouth 4 i ty of ephedrine-D 00:00: 04:59 (four) Renato as M (BROMFED 00 :00 times Medical DM) 2-30-10 daily as [place] ch mg/5 mL needed for syrup Congestion /Allergies or Cough for up to 10 days. methylPREDN 2022- Yes [id number] Take by [facility] 4 02-1717 mouth ity of mg tablets 00:00: 04:59 SEE-INSTRU [place] 00 :00 CTIONS for Medical 6 days. Branch follow package directions methylPREDN 2022- Yes [id number] Take by [facility] 4 02-17 mouth ity of mg tablets 00:00: 04:59 SEE-INSTRU [place] 00 :00 CTIONS for Medical 6 days. Branch follow package directions traMADoL 2022- No 50mg 50 mg, Univer s (ULTRAM) 01-14- Oral, ity of tablet 50 01:30: 01:38 ONCE, 1 [place] mg 00 :00 dose, On Medical Fri01/13/23 Branch at 2030, MEGHA levoFLOXaci 2022- No 500mg 500 mg, U nivers n 01-14 Oral, ity of (LEVAQUIN) 01:30: 01:38 ONCE, 1 [place] as tablet 500 00 :00 dose, On Medic al mg Fri01/13/23 Branch at 2030, MEGHA
Re ason for Anti-Infec tive: Documented Infection< br>Documen abdias Infection Site: Urine
D uration of Therapy: Other (see Comments) fluticasone Yes [id number] 2{spray Use 2 [facility] propionate 6-06 } Sprays in ity of 50 00:00: each [place] mcg/actuati 00 nostril in Me dical on nasal the Branch spray morning. fluticasone Yes [id number] 2{spray Use 2 [facility] propionate 6-06 } Sprays in ity of 50 00:00: each [place] mcg/actuati 00 nostril in Me dical on nasal the Branch spray morning. fluticasone Yes [id number] 2{spray Use 2 [facility] propionate 6-06 } Sprays in ity of 50 00:00: each [place] mcg/actuati 00 nostril in Me dical on nasal the Branch spray morning. fluticasone 3-0 Yes [id number] 2{spray Use 2 [facility] propionate 6-06 } Sprays in ity of 50 00:00: each [place] mcg/actuati 00 nostril in Me dical on nasal the Branch spray morning. fluticasone 3-0 Yes [id number] 2{spray Use 2 [facility] propionate 6-06 } Sprays in ity of 50 00:00: each [place] mcg/actuati 00 nostril in Me dical on nasal the Branch spray morning. fluticasone 3-0 Yes [id number] 2{spray Use 2 [facility] propionate 6-06 } Sprays in ity of 50 00:00: each [place] mcg/actuati 00 nostril in Me dical on nasal the Branch spray morning. fluticasone 3-0 Yes [id number] 2{spray Use 2 [facility] propionate 6-06 } Sprays in ity of 50 00:00: each [place] mcg/actuati 00 nostril in Me dical on nasal the Branch spray morning. fluticasone 2022-0 Yes [id number] 2{spray Use 2 [facility] propionate 6-06 } Sprays in ity of 50 00:00: each [place] mcg/actuati 00 nostril in Me dical on nasal the Branch spray morning. fluticasone 2022-0 Yes [id number] 2{spray Use 2 [facility] propionate 6-06 } Sprays in ity of 50 00:00: each [place] mcg/actuati 00 nostril in Me dical on nasal the Branch spray morning. fluticasone 2022-0 Yes [id number] 2{spray Use 2 [facility] propionate 6-06 } Sprays in ity of 50 00:00: each [place] mcg/actuati 00 nostril in Me dical on nasal the Branch spray morning. clonazePAM 3-0 Yes 1mg Take 1 Unive rs 1 mg tablet 6-05 tablet by ity of 20:29: mouth in 05 the Medical morning Branch and 1 tablet in the evening. SUMAtriptan 2022-0 Yes 50mg Take 1 Univ ers 50 mg 6-05 tablet by ity of tablet 20:29: mouth as needed for Medical Migraine. Branch clonazePAM 2023-0 Yes 1mg Take 1 Unive rs 1 mg tablet 6-05 tablet by ity of 20:29: mouth in [place] [address] the Medical morning Branch and 1 tablet in the evening. SUMAtriptan 2023-0 Yes 50mg Take 1 Univ ers 50 mg 6-05 tablet by ity of tablet 20:29: mouth as [place] 05 needed for Medical Migraine. Branch clonazePAM 2023-0 Yes 1mg Take 1 Unive rs 1 mg tablet 6-05 tablet by ity of 20:29: mouth in [place] [address] the Medical morning Branch and 1 tablet in the evening. SUMAtriptan 2023-0 Yes 50mg Take 1 Univ ers 50 mg 6-05 tablet by ity of tablet 20:29: mouth as [place] needed for Medical Migraine. Branch clonazePAM 2023-0 Yes 1mg Take 1 Unive rs 1 mg tablet 6-05 tablet by ity of 20:29: mouth in [place] [address] the Medical morning Branch and 1 tablet in the evening. SUMAtriptan 2023-0 Yes 50mg Take 1 Univ ers 50 mg 6-05 tablet by ity of tablet 20:29: mouth as [place] needed for Medical Migraine. Branch clonazePAM 2023-0 Yes 1mg Take 1 Unive rs 1 mg tablet 6-05 tablet by ity of 20:29: mouth in [place] [address] the Medical morning Branch and 1 tablet in the evening. SUMAtriptan 2023-0 Yes 50mg Take 1 Univ ers 50 mg 6-05 tablet by ity of tablet 20:29: mouth as [place] needed for Medical Migraine. Branch clonazePAM 2023-0 Yes 1mg Take 1 Unive rs 1 mg tablet 6-05 tablet by ity of 20:29: mouth in [place] [address] the Medical morning Branch and 1 tablet in the evening. SUMAtriptan 2023-0 Yes 50mg Take 1 Univ ers 50 mg 6-05 tablet by ity of tablet 20:29: mouth as [place] needed for Medical Migraine. Branch clonazePAM 2023-0 Yes 1mg Take 1 Unive rs 1 mg tablet 6-05 tablet by ity of 20:29: mouth in [place] [address] the Medical morning Branch and 1 tablet in the evening. SUMAtriptan 2023-0 Yes 50mg Take 1 Univ ers 50 mg 6-05 tablet by ity of tablet 20:29: mouth as [place] 05 needed for Medical Migraine. Branch clonazePAM 2023-0 Yes 1mg Take 1 Unive rs 1 mg tablet 6-05 tablet by ity of 20:29: mouth in [place] [address] the Medical morning Branch and 1 tablet in the evening. SUMAtriptan 2023-0 Yes 50mg Take 1 Univ ers 50 mg 6-05 tablet by ity of tablet 20:29: mouth as [place] needed for Medical Migraine. Branch clonazePAM 2023-0 Yes 1mg Take 1 Unive rs 1 mg tablet 6-05 tablet by ity of 20:29: mouth in [place] [address] the Medical morning Branch and 1 tablet in the evening. SUMAtriptan 2023-0 Yes 50mg Take 1 Univ ers 50 mg 6-05 tablet by ity of tablet 20:29: mouth as [place] [address] needed for Medical Migraine. Branch clonazePAM 2023-0 Yes 1mg Take 1 Unive rs 1 mg tablet 6-05 tablet by ity of 20:29: mouth in [place] [address] the Medical morning Branch and 1 tablet in the evening. SUMAtriptan 2023-0 Yes 50mg Take 1 Univ ers 50 mg 6-05 tablet by ity of tablet 20:29: mouth as [place] [address] needed for Medical Migraine. Branch clonazePAM 2023-0 Yes 1mg Take 1 Unive rs 1 mg tablet 6-05 tablet by ity of 20:29: mouth in [place] [address] the Medical morning Branch and 1 tablet in the evening. SUMAtriptan 2023-0 Yes 50mg Take 1 Univ ers 50 mg 6-05 tablet by ity of tablet 20:29: mouth as [place] [address] needed for Medical Migraine. Branch clonazePAM 2023-0 Yes 1mg Take 1 Unive rs 1 mg tablet 6-05 tablet by ity of 20:29: mouth in [place] [address] the Medical morning Branch and 1 tablet in the evening. SUMAtriptan 2023-0 Yes 50mg Take 1 Univ ers 50 mg 6-05 tablet by ity of tablet 20:29: mouth as [place] [address] needed for Medical Migraine. Branch acetaminoph 2023-0 Yes [id number] 500mg Take 1 [facility] en (TYLENOL 6-05 tablet by ity of EXTRA 00:00: mouth [place] [facility]) 00 every 6 Medical 500 mg (six) Branch tablet hours as needed for Pain for up to 20 doses. acetaminoph 2023-0 Yes [id number] 500mg Take 1 [facility] en (TYLENOL 6-05 tablet by ity of EXTRA 00:00: mouth [place] [facility]) 00 every 6 Medical 500 mg (six) Branch tablet hours as needed for Pain for up to 20 doses. acetaminoph 2023-0 Yes [id number] 500mg Take 1 [facility] en (TYLENOL 6-05 tablet by ity of EXTRA 00:00: mouth [place] [facility]) 00 every 6 Medical 500 mg (six) Branch tablet hours as needed for Pain for up to 20 doses. acetaminoph 3-0 Yes [id number] 500mg Take 1 [facility] en (TYLENOL 6-05 tablet by ity of EXTRA 00:00: mouth [place] [facility]) 00 every 6 Medical 500 mg (six) Branch tablet hours as needed for Pain for up to 20 doses. acetaminoph 3-0 Yes [id number] 500mg Take 1 [facility] en (TYLENOL 6-05 tablet by ity of EXTRA 00:00: mouth [place] [facility]) 00 every 6 Medical 500 mg (six) Branch tablet hours as needed for Pain for up to 20 doses. acetaminoph 3-0 Yes [id number] 500mg Take 1 [facility] en (TYLENOL 6-05 tablet by ity of EXTRA 00:00: mouth [place] [facility]) 00 every 6 Medical 500 mg (six) Branch tablet hours as needed for Pain for up to 20 doses. acetaminoph 3-0 Yes [id number] 500mg Take 1 [facility] en (TYLENOL 6-05 tablet by ity of EXTRA 00:00: mouth [place] [facility]) 00 every 6 Medical 500 mg (six) Branch tablet hours as needed for Pain for up to 20 doses. acetaminoph 3-0 Yes [id number] 500mg Take 1 [facility] en (TYLENOL 6-05 tablet by ity of EXTRA 00:00: mouth [place] [facility]) 00 every 6 Medical 500 mg (six) Branch tablet hours as needed for Pain for up to 20 doses. acetaminoph 3-0 Yes [id number] 500mg Take 1 [facility] en (TYLENOL 6-05 tablet by ity of EXTRA 00:00: mouth [place] [facility]) 00 every 6 Medical 500 mg (six) Branch tablet hours as needed for Pain for up to 20 doses. acetaminoph 2023-0 Yes [id number] 500mg Take 1 [facility] en (TYLENOL 6-05 tablet by ity of EXTRA 00:00: mouth [place] [facility]) 00 every 6 Medical 500 mg (six) Branch tablet hours as needed for Pain for up to 20 doses. acetaminoph 2023-0 Yes [id number] 500mg Take 1 [facility] en (TYLENOL 6-05 tablet by ity of EXTRA 00:00: mouth [place] [facility]) 00 every 6 Medical 500 mg (six) Branch tablet hours as needed for Pain for up to 20 doses. levoFLOXaci 2023-0 2023- Yes [id number] 500mg Take 1 [facility] n 6-05 06-13 tablet by ity of (LEVAQUIN) 00:00: 04:59 mouth [place] 500 mg 00 :00 every 24 Medical tablet (twenty-fo Branch ur) hours for 7 days. levoFLOXaci 2023-0 2023- Yes [id number] 500mg Take 1 [facility] n 6-05 06-13 tablet by ity of (LEVAQUIN) 00:00: 04:59 mouth [place] 500 mg 00 :00 every 24 Medical tablet (twenty-fo Branch ur) hours for 7 days. levoFLOXaci 2023-0 2023- Yes [id number] 500mg Take 1 Univers n 6-05 06-13 [...] tablet by ity of 11:20: mouth in [place] [address] the Medical morning Branch and 1 tablet in the evening. clonazePAM 2023-0 Yes 1mg Take 1 Unive rs 1 mg tablet 5-25 tablet by ity of 11:20: mouth in [place] [address] the Medical morning Branch and 1 tablet in the evening. clonazePAM 2023-0 Yes 1mg Take 1 Unive rs 1 mg tablet 5-25 tablet by ity of 11:20: mouth in [place] [address] the Medical morning Branch and 1 tablet in the evening. clonazePAM 2023-0 Yes 1mg Take 1 Unive rs 1 mg tablet 5-25 tablet by ity of 11:20: mouth in [place] [address] the Medical morning [place] and 1 tablet in the evening. clonazePAM 2023-0 Yes 1mg Take 1 Unive rs 1 mg tablet 5-25 tablet by ity of 11:20: mouth in [place] [address] the [facility] morning [place] and 1 tablet in the evening. clonazePAM 2023-0 Yes 1mg Take 1 Unive rs 1 mg tablet 5-25 tablet by ity of 11:20: mouth in [place] [address] the Medical morning [place] and 1 tablet in the evening. lipase-prot 2023-0 Yes [id number] Take 2 U nivers ease-amylas 5-16 capsules ity of e 00:00: by mouth [place] 36,000-114, 00 with meals Me dical 000- and 1 with Branch 180,000 each unit CpDR snack. lipase-prot 3-0 Yes [id number] Take 2 U nivers ease-amylas 5-16 capsules ity of e 00:00: by mouth [place] 36,000-114, 00 with meals Me dical 000- and 1 with Branch 180,000 each unit CpDR snack. ciprofloxac 2023-0 Yes [id number] 500mg Take 1 [facility] in HCl 500 5-16 tablet by ity of mg tablet 00:00: mouth [place] 00 every 12 Medical (twelve) Branch hours. lipase-prot 2023-0 Yes [id number] Take 2 U nivers ease-amylas 5-16 capsules ity of e 00:00: by mouth [place] 36,000-114, 00 with meals Me dical 000- and 1 with Branch 180,000 each unit CpDR snack. ciprofloxac 2022-0 Yes [id number] 500mg Take 1 [facility] in HCl 500 5-16 tablet by ity of mg tablet 00:00: mouth [place] 00 every 12 Medical (twelve) Branch hours. lipase-prot 0 Yes [id number] Take 2 U nivers ease-amylas 5-16 capsules ity of e 00:00: by mouth [place] 36,000-114, 00 with meals Me dical 000- and 1 with Branch 180,000 each unit CpDR snack. lipase-prot 0 Yes [id number] Take 2 U nivers ease-amylas 5-16 capsules ity of e 00:00: by mouth [place] 36,000-114, 00 with meals Me dical 000- and 1 with Branch 180,000 each unit CpDR snack. ciprofloxac 2022-0 Yes [id number] 500mg Take 1 Univers in HCl 500 5-16 tablet by ity of mg tablet 00:00: mouth [place] 00 every 12 Medical (twelve) Branch hours. lipase-prot Yes [id number] Take 2 U nivers ease-amylas 5-16 capsules ity of e 00:00: by mouth [place] 36,000-114, 00 with meals Me dical 000- and 1 with Branch 180,000 each unit CpDR snack. lipase-prot Yes [id number] Take 2 U nivers ease-amylas 5-16 capsules ity of e 00:00: by mouth [place] 36,000-114, 00 with meals Me dical 000- and 1 with Branch 180,000 each unit CpDR snack. lipase-prot Yes [id number] Take 2 U nivers ease-amylas 5-16 capsules ity of e 00:00: by mouth [place] 36,000-114, 00 with meals Me dical 000- and 1 with Branch 180,000 each unit CpDR snack. lipase-prot 0 Yes [id number] Take 2 U nivers ease-amylas 5-16 capsules ity of e 00:00: by mouth [place] 36,000-114, 00 with meals Me dical 000- and 1 with Branch 180,000 each unit CpDR snack. lipase-prot 0 Yes [id number] Take 2 U nivers ease-amylas 5-16 capsules ity of e 00:00: by mouth [place] 36,000-114, 00 with meals Me dical 000- and 1 with Branch 180,000 each unit CpDR snack. lipase-prot Yes [id number] Take 2 U nivers ease-amylas 5-16 capsules ity of e 00:00: by mouth [place] 36,000-114, 00 with meals Me dical 000- and 1 with Branch 180,000 each unit CpDR snack. lipase-prot Yes [id number] Take 2 U nivers ease-amylas 5-16 capsules ity of e 00:00: by mouth [place] 36,000-114, 00 with meals Me dical 000- and 1 with Branch 180,000 each unit CpDR snack. lipase-prot Yes [id number] Take 2 U nivers ease-amylas 5-16 capsules ity of e 00:00: by mouth [place] 36,000-114, 00 with meals Me dical 000- and 1 with Branch 180,000 each unit CpDR snack. lipase-prot Yes [id number] Take 2 U nivers ease-amylas 5-16 capsules ity of e 00:00: by mouth [place] 36,000-114, 00 with meals Me dical 000- and 1 with Branch 180,000 each unit CpDR snack. lipase-prot Yes [id number] Take 2 U nivers ease-amylas 5-16 capsules ity of e 00:00: by mouth [place] 36,000-114, 00 with meals Me dical 000- and 1 with Branch 180,000 each unit CpDR snack. lipase-prot Yes [id number] Take 2 U nivers ease-amylas 5-16 capsules ity of e 00:00: by mouth [place] 36,000-114, 00 with meals Me dical 000- and 1 with Branch 180,000 each unit CpDR snack. lipase-prot Yes [id number] Take 2 U nivers ease-amylas 5-16 capsules ity of e 00:00: by mouth [place] 36,000-114, 00 with meals Me dical 000- and 1 with Branch 180,000 each unit CpDR snack. lipase-prot Yes [id number] Take 2 U nivers ease-amylas 5-16 capsules ity of e 00:00: by mouth [place] 36,000-114, 00 with meals Me dical 000- and 1 with Branch 180,000 each unit CpDR snack. lipase-prot Yes [id number] Take 2 U nivers ease-amylas 5-16 capsules ity of e 00:00: by mouth [place] 36,000-114, 00 with meals Me dical 000- and 1 with Branch 180,000 each unit CpDR snack. lipase-prot Yes [id number] Take 2 U nivers ease-amylas 5-16 capsules ity of e 00:00: by mouth [place] 36,000-114, 00 with meals Me dical 000- and 1 with Branch 180,000 each unit CpDR snack. lipase-prot Yes [id number] Take 2 U nivers ease-amylas 5-16 capsules ity of e 00:00: by mouth [place] 36,000-114, 00 with meals Me dical 000- and 1 with Branch 180,000 each unit CpDR snack. lipase-prot Yes [id number] Take 2 U nivers ease-amylas 5-16 capsules ity of e 00:00: by mouth [place] 36,000-114, 00 with meals Me dical 000- and 1 with Branch 180,000 each unit CpDR snack. lipase-prot Yes [id number] Take 2 U nivers ease-amylas 5-16 capsules ity of e 00:00: by mouth [place] 36,000-114, 00 with meals Me dical 000- and 1 with Branch 180,000 each unit CpDR snack. lipase-prot Yes [id number] Take 2 U nivers ease-amylas 5-16 capsules ity of e 00:00: by mouth [place] 36,000-114, 00 with meals Me dical 000- and 1 with Branch 180,000 each unit CpDR snack. ciprofloxac 2022- No [id number] 500mg Take 1 [facility] in HCl 500 5-16 05-25 tablet by ity of mg tablet 00:00: 00:00 mouth [place] 00 :00 every 12 Medical (twelve) Branch hours. ciprofloxac 2022- No [id number] 500mg Take 1 [facility] in HCl 500 5-16 05-25 tablet by ity of mg tablet 00:00: 00:00 mouth [place] 00 :00 every 12 Medical (twelve) Branch hours. ciprofloxac 2022- No [id number] 500mg Take 1 Univers in HCl 500 [...] 7 days. Indication s: acute pain pantoprazol 2022-2022- No [id number] 40mg Take 1 Univers e 40 mg EC 4-17 05-18 tablet by ity of tablet 00:00: 04:59 mouth in [place] 00 :00 the Medical morning Branch for 30 days. pantoprazol 2022-0 2022- No [id number] 40mg Take 1 Univers e 40 mg EC 4-17 05-18 tablet by ity of tablet 00:00: 04:59 mouth in [place] 00 :00 the Medical morning Branch for 30 days. pantoprazol 2022-0 2022- No [id number] 40mg Take 1 Univers e 40 mg EC 4-17 05-18 tablet by ity of tablet 00:00: 04:59 mouth in [place] 00 :00 the Medical morning Branch for 30 days. pantoprazol 2023-0 2022- No [id number] 40mg Take 1 Univers e 40 mg EC 4-17 05-18 tablet by ity of tablet 00:00: 04:59 mouth in [place] 00 :00 the [facility] for 30 days. pantoprazol 2023-0 2022- No [id number] 40mg Take 1 Univers e 40 mg EC 4-17 05-18 tablet by ity of tablet 00:00: 04:59 mouth in [place] 00 :00 the [facility] for 30 days. pantoprazol 2023-0 2022- No [id number] 40mg Take 1 Univers e 40 mg EC 4-17 05-18 tablet by ity of tablet 00:00: 04:59 mouth in [place] 00 :00 the [facility] for 30 days. pantoprazol 2023-0 2022- No [id number] 40mg Take 1 Univers e 40 mg EC 4-17 05-18 tablet by ity of tablet 00:00: 04:59 mouth in [place] 00 :00 the [facility] for 30 days. clonazePAM 2023-0 Yes 1mg Take 1 Unive rs 1 mg tablet 4-16 tablet by ity of 16:44: mouth in [address] and 1 tablet in the evening. SUMAtriptan 2023-0 Yes 50mg Take 1 Univ ers 50 mg 4-16 tablet by ity of tablet 16:44: mouth as [place] 40 needed for Medical Migraine. Branch clonazePAM 2023-0 Yes 1mg Take 1 Unive rs 1 mg tablet 4-16 tablet by ity of 16:44: mouth in [address] and 1 tablet in the evening. SUMAtriptan 2023-0 Yes 50mg Take 1 Univ ers 50 mg 4-16 tablet by ity of tablet 16:44: mouth as [place] 40 needed for Medical Migraine. Branch clonazePAM 2023-0 Yes 1mg Take 1 Unive rs 1 mg tablet 4-16 tablet by ity of 16:44: mouth in [address] and 1 tablet in the evening. SUMAtriptan 2023-0 Yes 50mg Take 1 Univ ers 50 mg 4-16 tablet by ity of tablet 16:44: mouth as [place] 40 needed for Medical Migraine. Branch clonazePAM 2023-0 Yes 1mg Take 1 Unive rs 1 mg tablet 4-16 tablet by ity of 16:44: mouth in [place] [address] the [facility] Branch and 1 tablet in the evening. SUMAtriptan 2023-0 Yes 50mg Take 1 Univ ers 50 mg 4-16 tablet by ity of tablet 16:44: mouth as [place] 40 needed for Medical Migraine. Branch clonazePAM 2023-0 Yes 1mg Take 1 Unive rs 1 mg tablet 4-16 tablet by ity of 16:44: mouth in [place] [address] the [facility] and 1 tablet in the evening. SUMAtriptan 2023-0 Yes 50mg Take 1 Univ ers 50 mg 4-16 tablet by ity of tablet 16:44: mouth as [place] 40 needed for Medical Migraine. Branch clonazePAM 2023-0 Yes 1mg Take 1 Unive rs 1 mg tablet 4-16 tablet by ity of 16:44: mouth in [place] [address] the [facility] and 1 tablet in the evening. SUMAtriptan 2023-0 Yes 50mg Take 1 Univ ers 50 mg 4-16 tablet by ity of tablet 16:44: mouth as [place] 40 needed for Medical Migraine. Branch clonazePAM 2023-0 Yes 1mg Take 1 Unive rs 1 mg tablet 4-16 tablet by ity of 16:44: mouth in [place] [address] the [facility] and 1 tablet in the evening. SUMAtriptan 2023-0 Yes 50mg Take 1 Univ ers 50 mg 4-16 tablet by ity of tablet 16:44: mouth as [place] 40 needed for Medical Migraine. Branch clonazePAM 2023-0 Yes 1mg Take 1 Unive rs 1 mg tablet 4-16 tablet by ity of 16:44: mouth in [place] [address] the [facility] and 1 tablet in the evening. SUMAtriptan 2023-0 Yes 50mg Take 1 Univ ers 50 mg 4-16 tablet by ity of tablet 16:44: mouth as [place] 40 needed for Medical Migraine. Branch clonazePAM 2023-0 Yes 1mg Take 1 Unive rs 1 mg tablet 4-16 tablet by ity of 16:44: mouth in [place] [address] the [facility] and 1 tablet in the evening. sucralfate 2023-0 Yes 1g 1 g, Oral, U nivers (CARAFATE) 4-16 AC+HS, ity of tablet 1 g 16:30: [place] 00 on [facility] 11/24/22 at Branch 1130, Until Discontinu ed, Routine propranoloL 2022-0 2022- No [id number] 20mg Take 1 Univers 20 mg 4-16 05-17 tablet by ity of tablet 00:00: 04:59 mouth in [place] 00 :00 the Medical morning Branch and 1 tablet in the evening. Do all this for 30 days. sucralfate 2022-0 2022- No [id number] 1g Take 1 Univers 1 gram 4-16 05-17 tablet by ity of tablet 00:00: 04:59 mouth [place] 00 :00 before Medical meals and Branch at bedtime for 30 days. propranoloL 2022-0 2022- No [id number] 20mg Take 1 [facility] 20 mg 4-16 05-17 tablet by ity of tablet 00:00: 04:59 mouth in [place] 00 :00 the Medical morning Branch and 1 tablet in the evening. Do all this for 30 days. sucralfate 2022-0 2022- No [id number] 1g Take 1 Univers 1 gram 4-16 05-17 tablet by ity of tablet 00:00: 04:59 mouth [place] 00 :00 before Medical meals and Branch at bedtime for 30 days. propranoloL 2022-0 2022- No [id number] 20mg Take 1 Univers 20 mg 4-16 05-17 tablet by ity of tablet 00:00: 04:59 mouth in [place] 00 :00 the Medical morning Branch and 1 tablet in the evening. Do all this for 30 days. sucralfate 2022-0 2022- No [id number] 1g Take 1 Univers 1 gram 4-16 05-17 tablet by ity of tablet 00:00: 04:59 mouth [place] 00 :00 before Medical meals and Branch at bedtime for 30 days. propranoloL 2022-0 2022- No [id number] 20mg Take 1 Univers 20 mg 4-16 05-17 tablet by ity of tablet 00:00: 04:59 mouth in [place] 00 :00 the Medical morning Branch and 1 tablet in the evening. Do all this for 30 days. sucralfate 2022-0 2022- No [id number] 1g Take 1 Univers 1 gram 4-16 05-17 tablet by ity of tablet 00:00: 04:59 mouth [place] 00 :00 before Medical meals and Branch at bedtime for 30 days. propranoloL No [id number] 20mg Take 1 [facility] 20 mg 4-16 05-17 tablet by ity of tablet 00:00: 04:59 mouth in [place] 00 :00 the Medical morning Branch and 1 tablet in the evening. Do all this for 30 days. sucralfate No [id number] 1g Take 1 [facility] 1 gram 4-16 05-17 tablet by ity of tablet 00:00: 04:59 mouth [place] 00 :00 before Medical meals and Branch at bedtime for 30 days. propranoloL No [id number] 20mg Take 1 [facility] 20 mg 4-16 05-17 tablet by ity of tablet 00:00: 04:59 mouth in [place] 00 :00 the Medical morning Branch and 1 tablet in the evening. Do all this for 30 days. sucralfate No [id number] 1g Take 1 Univers 1 gram 4-16 05-17 tablet by ity of tablet 00:00: 04:59 mouth [place] 00 :00 before Medical meals and Branch at bedtime for 30 days. propranoloL No [id number] 20mg Take 1 [facility] 20 mg 4-16 05-17 tablet by ity of tablet 00:00: 04:59 mouth in [place] 00 :00 the Medical morning Branch and 1 tablet in the evening. Do all this for 30 days. sucralfate No [id number] 1g Take 1 Univers 1 gram 4-16 05-17 tablet by ity of tablet 00:00: 04:59 mouth [place] 00 :00 before Medical meals and Branch at bedtime for 30 days. dicyclomine No [id number] 10mg Take 1 Univers 10 mg 4-16 04-27 capsule by ity of capsule 00:00: 04:59 mouth 4 [place] 00 :00 (four) Medical times Branch daily for 10 days. dicyclomine 2022- No [id number] 10mg Take 1 Univers 10 mg 4-16 04-27 capsule by ity of capsule 00:00: 04:59 mouth 4 [place] 00 :00 (four) Medical times Branch daily for 10 days. levoFLOXaci No [id number] 750mg Take 1 Univers n 750 mg 4-16 04-20 tablet by ity o f tablet 00:00: 04:59 mouth [place] 00 :00 every 24 Medical ( Branch ur) hours for 3 days. levoFLOXaci 2022-0 2022- No [id number] 750mg Take 1 Univers n 750 mg 11-24-20 tablet by ity o f tablet 00:00: 04:59 mouth [place] 00 :00 every 24 Medical ( Branch ur) hours for 3 days. pantoprazol Yes 40mg 40 mg, Univ ers e 4-15 Oral, ity of (PROTONIX) 14:00: DAILY, [place] EC tablet 00 First dose Medi darren 40 mg on [facility] 11/23/22 at 0900, Until Discontinu ed, Routine levalbutero 0 Yes .63mg 0.63 mg, U nivers l (XOPENEX) 4-15 Inhalation it y of nebulizer 13:00: , TID, [place] solution 00 First dose Medic al 0.63 mg on [facility] 11/23/22 at 0800, Until Discontinu ed, Routine ipratropium 0 Yes .5mg 0.5 mg, Uni vers (ATROVENT) 4-15 Inhalation ity of 0.02 % 09:14: , Q4HPRN, [place] nebulizer 50 Starting Medica l solution on [facility] 0.5 mg 11/23/22 at 0414, Until Discontinu ed, Routine, Wheezing, Shortness of Breath cefTRIAXone 2022-0 2022- No 1000mg 1,000 mg, Univers (ROCEPHIN) 11-23-20 IV ity of 1,000 mg in 05:00: 04:59 Piggyback, [place] NaCl 0.9% 00 :00 Q24H ABX, Medic al (NS) 100 mL 5 doses, Bran ch MINI-BAG First dose (after last reorder) on [facility] 11/23/22 at 0000, Last dose on Fri11/27/22 at 0000, Administer over 30 Minutes, 100 mL
Reas on for Anti-Infec tive: Empiric Therapy for Suspected Infection< br>Empiric Therapy Site: Respirator y
Durat ion of therapy: 72 hours morpHINE (2 0 Yes 2mg 2 mg, Slow Univers mg/mL) 4-15 IV Push, ity of injection 2 03:55: Q4HPRN, [place] mg 56 Starting Medical on Fri [place] 11/22/22 at 2255, Until Discontinu ed, Routine, Pain (scale 7-10) mirtazapine 2022-0 Yes 30mg 30 mg, Univ ers (REMERON) 4-15 Oral, QHS, ity of tablet 30 02:00: First dose [place] mg 00 on Fri [facility] 11/22/22 at Branch 2100, Until Discontinu ed, Routine dicyclomine 2022-0 Yes 10mg 10 mg, Univ ers (BENTYL) 4-15 Oral, QID, ity o f capsule 10 01:00: First dose [place] mg 00 on Fri [facility] 11/22/22 at Branch 2000, Until Discontinu ed, Routine enoxaparin 2022-0 Yes 40mg 40 mg, Unive rs (LOVENOX) -14 Subcutaneo ity of injection 22:00: us, DAILY, [place] 40 mg 00 First dose Medical on Fri [place] 11/22/22 at 1700, Until Discontinu ed, Routine morpHINE (2 2022-2022- No 2mg 2 mg, Slow Univers mg/mL) 11-22-14 IV Push, ity of injection 2 18:55: 19:47 ONCE, 1 [place] mg 00 :00 dose, On Medical Fri [place] 11/22/22 at 1400, Routine cetirizine 2022-0 Yes 10mg 10 mg, Unive rs (ZYRTEC) 4-14 Oral, ity of tablet 10 14:00: DAILY, [place] mg 00 First dose Medical on Fri [place] 11/22/22 at 0900, Until Discontinu ed, Routine morpHINE (2 2022-0 2022- No 2mg 2 mg, Slow Univers mg/mL) 11-22-14 IV Push, ity of injection 2 13:15: 13:42 ONCE, 1 [place] mg 00 :00 dose, On Medical Fri [place] 11/22/22 at 0815, Routine propranoloL 2022-0 Yes 20mg 20 mg, Univ ers (INDERAL) 4-14 Oral, BID, ity of tablet 20 13:00: First dose [place] mg 00 on Fri [facility] 11/22/22 at Branch 0800, Until Discontinu ed, Routine lipase-prot 2022-0 Yes [id number] capsule Univers ease-amylas 14 (36,000 ity o f e (CREON) 13:00: Units), [place] 12,000-38,0 00 Oral, TID Med ical 00 -60,000 MEALS, Branch unit First dose capsule 3 on Fri capsule 11/22/22 at 0800, Until Discontinu ed clonazePAM 2022-0 Yes 1mg 1 mg, Univer s (KLONOPIN) -14 Oral, BID, ity of tablet 1 mg 13:00: First dose [place] 00 on Fri Medical 11/22/22 at Branch 0800, Until Discontinu ed, Routine busPIRone 2022-0 Yes 10mg 10 mg, Univer s (BUSPAR) 14 Oral, BID, ity o f tablet 10 13:00: First dose [place] mg 00 on Fri Medical 11/22/22 at Branch 0800, Until Discontinu ed, Routine levalbutero 2022-0 202- No 1.25mg 1.25 mg, Univers l (XOPENEX) 11-22 04-15 Inhalation i ty of nebulizer 13:00: 09:53 , TID, [place] solution 00 :33 First dose Medic al 1.25 mg on Fri Branch 11/22/22 at 0800, Until Discontinu ed, Routine metoclopram 2022-0 Yes 10mg 10 mg, Univ ers teresa HCl 14 Oral, ity of (REGLAN) 11:39: QHSPRN, [place] tablet 10 38 Starting Medica l mg on Fri Branch 11/22/22 at 0639, Until Discontinu ed, Routine, Nausea and Vomiting (N/V) codeine-gua 2022-0 Yes 5mL 5 mL, Unive rs ifenesin 14 Oral, ity of (ROBITUSSIN 11:37: Q6HPRN, [place] AC) 10-100 11 Starting Medic al mg/5 mL on Fri Branch oral 11/22/22 at solution 5 0637, mL Until Discontinu ed, Routine, Cough ondansetron 2022-0 Yes 4mg 4 mg, Slow Univers (ZOFRAN 4-14 IV Push, ity of (PF)) 09:53: Q6HPRN, [place] injection 4 45 Starting Medi darren mg on Fri Branch 11/22/22 at 0453, Until Discontinu ed, Routine, Nausea and Vomiting (N/V) acetaminoph Yes 650mg 650 mg, Un manoj en 11-22 Oral, ity of (TYLENOL) 09:53: Q6HPRN, [place] tablet 650 38 Starting Medic al mg on Fri Branch 11/22/22 at 0453, Until Discontinu ed, Routine, Pain (scale 1-3) ondansetron 2022- No 4mg 4 mg, Slow Univers (ZOFRAN 11-22 IV Push, ity of (PF)) 09:45: 09:39 ONCE, 1 [place] injection 4 00 :00 dose, On Medi darren mg Fri Branch 11/22/22 at 0445, MEGHA iopamidol No [id number] 75mL 75 mL, Univers (ISOVUE 11-22 Intravenou ity o f 370-500 mL) 09:45: 09:45 s, ONCE, 1 [place] injection 00 :00 dose, On Medica l 75 mL Fri Branch 11/22/22 at 0445, Routine SERTraline 2022- No 50mg Take 1 Univ ers 50 mg 11-22 tablet by ity of tablet 06:40: 00:00 mouth [place] 24 :00 every Medical morning. Branch ondansetron 2022- No 4mg Take 1 Uni vers 4 mg tablet 11-22 tablet by it y of 06:40: 00:00 mouth. [place] 24 :00 Medical Branch ondansetron 0 2022- No 4mg 4 mg, Slow Univers (ZOFRAN 11-22 IV Push, ity of (PF)) 06:15: 06:19 ONCE, 1 [place] injection 4 00 :00 dose, On Medi darren mg Fri Branch 11/22/22 at 0115, MEGHA morpHINE (4 No 4mg 4 mg, Slow Univers mg/mL) 11-22 IV Push, ity of injection 4 06:15: 06:19 ONCE, 1 [place] mg 00 :00 dose, On Medical Fri Branch 11/22/22 at 0115, STAT propranoloL 2023-0 Yes [id number] 20mg Take 1 U nivers 20 mg 4-07 tablet by ity of tablet 00:00: mouth in [place] 00 the Medical morning Branch and 1 tablet in the evening. propranoloL 3-0 Yes [id number] 20mg Take 1 U nivers 20 mg 4-07 tablet by ity of tablet 00:00: mouth in [place] 00 the Medical morning Branch and 1 tablet in the evening. propranoloL 3-0 Yes [id number] 20mg Take 1 U nivers 20 mg 4-07 tablet by ity of tablet 00:00: mouth in [place] 00 the Medical morning Branch and 1 tablet in the evening. propranoloL 2022-0 3- No [id number] 20mg Take 1 Univers 20 mg 4-07 04-16 tablet by ity of tablet 00:00: 00:00 mouth in [place] 00 :00 the Medical morning Branch and 1 tablet in the evening. SUMAtriptan 3-0 3- No [id number] 50mg Take 1 Univers 50 mg 4-07 04-08 tablet by ity of tablet 00:00: 04:59 mouth [place] 00 :[place] now for 1 Medical dose. Branch SUMAtriptan 2022-0 3- No [id number] 50mg Take 1 Univers 50 mg 4-07 04-08 tablet by ity of tablet 00:00: 04:59 mouth [place] 00 :[place] now for 1 Medical dose. Branch mirtazapine 3-0 2023- No 30mg Take 1 Uni vers 30 mg 4-03 04-03 tablet by ity of tablet 14:29: 00:00 mouth at [place] 31 :00 bedtime. Medical Branch mirtazapine 3-0 3- No 30mg Take 1 Uni vers 30 mg 4-03 04-03 tablet by ity of tablet 14:29: 00:00 mouth at [place] 31 :00 bedtime. Medical Branch clonazePAM 3-0 Yes 1mg Take 1 Unive rs 1 mg tablet 4-03 tablet by ity of 14:11: mouth in [place] 23 the Medical morning Branch and 1 tablet in the evening. SERTraline 3-0 Yes 50mg Take 1 Unive rs 50 mg 4-03 tablet by ity of tablet 14:11: mouth [place] 23 every Medical morning. Branch ondansetron 3-0 Yes 4mg Take 1 Univ ers 4 mg tablet 4-03 tablet by ity of 14:11: mouth. [place] [address] Medical Branch clonazePAM 2023-0 Yes 1mg Take 1 Unive rs 1 mg tablet 4-03 tablet by ity of 14:11: mouth in [place] [address] the Medical morning Branch and 1 tablet in the evening. SERTraline 2023-0 Yes 50mg Take 1 Unive rs 50 mg 4-03 tablet by ity of tablet 14:11: mouth [place] [address] every Medical morning. Branch ondansetron 2023-0 Yes 4mg Take 1 Univ ers 4 mg tablet 4-03 tablet by ity of 14:11: mouth. [place] [address] Medical Branch clonazePAM 2023-0 Yes 1mg Take 1 Unive rs 1 mg tablet 4-03 tablet by ity of 14:11: mouth in [place] [address] the Medical morning Branch and 1 tablet in the evening. SERTraline 2023-0 Yes 50mg Take 1 Unive rs 50 mg 4-03 tablet by ity of tablet 14:11: mouth [place] [address] every Medical morning. Branch ondansetron 2023-0 Yes 4mg Take 1 Univ ers 4 mg tablet 4-03 tablet by ity of 14:11: mouth. [place] [address] Medical Branch clonazePAM 2023-0 Yes 1mg Take 1 Unive rs 1 mg tablet 4-03 tablet by ity of 14:11: mouth in [place] [address] the Medical morning Branch and 1 tablet in the evening. SERTraline 2023-0 Yes 50mg Take 1 Unive rs 50 mg 4-03 tablet by ity of tablet 14:11: mouth [place] [address] every Medical morning. Branch ondansetron 2023-0 Yes 4mg Take 1 Univ ers 4 mg tablet 4-03 tablet by ity of 14:11: mouth. [place] [address] Medical Branch clonazePAM 2023-0 Yes 1mg Take 1 Unive rs 1 mg tablet 4-03 tablet by ity of 14:11: mouth in [place] [address] the Medical morning Branch and 1 tablet in the evening. SERTraline 2023-0 Yes 50mg Take 1 Unive rs 50 mg 4-03 tablet by ity of tablet 14:11: mouth [place] [address] every Medical morning. Branch ondansetron 2023-0 Yes 4mg Take 1 Univ ers 4 mg tablet 4-03 tablet by ity of 14:11: mouth. [place] [address] Medical Branch busPIRone 2023-0 Yes [id number] 10mg Take 1 Un manoj 10 mg 4-03 tablet by ity of tablet 00:00: mouth in [place] 00 the Medical morning Branch and 1 tablet in the evening. mirtazapine 3-0 Yes [id number] 30mg Take 1 Univers 30 mg 4-03 tablet by ity of tablet 00:00: mouth at [place] [address] bedtime. Medical Branch busPIRone 3-0 Yes [id number] 10mg Take 1 Un manoj 10 mg 4-03 tablet by ity of tablet 00:00: mouth in [place] 00 the Medical morning Branch and 1 tablet in the evening. mirtazapine 3-0 Yes [id number] 30mg Take 1 Univers 30 mg 4-03 tablet by ity of tablet 00:00: mouth at [place] [address] bedtime. Medical Branch busPIRone 3-0 Yes [id number] 10mg Take 1 Un manoj 10 mg 4-03 tablet by ity of tablet 00:00: mouth in [place] 00 the Medical morning Branch and 1 tablet in the evening. mirtazapine 3-0 Yes [id number] 30mg Take 1 Univers 30 mg 4-03 tablet by ity of tablet 00:00: mouth at [place] [address] bedtime. Medical Branch busPIRone 3-0 Yes [id number] 10mg Take 1 Un manoj 10 mg 4-03 tablet by ity of tablet 00:00: mouth in [place] 00 the Medical morning Branch and 1 tablet in the evening. mirtazapine 3-0 Yes [id number] 30mg Take 1 Univers 30 mg 4-03 tablet by ity of tablet 00:00: mouth at [place] [address] bedtime. Medical Branch busPIRone 3-0 Yes [id number] 10mg Take 1 Un manoj 10 mg 4-03 tablet by ity of tablet 00:00: mouth in [place] 00 the Medical morning Branch and 1 tablet in the evening. mirtazapine 2023-0 Yes [id number] 30mg Take 1 Univers 30 mg 4-03 tablet by ity of tablet 00:00: mouth at [place] [address] bedtime. Medical Branch busPIRone 3-0 Yes [id number] 10mg Take 1 Un manoj 10 mg 4-03 tablet by ity of tablet 00:00: mouth in [place] 00 the Medical morning Branch and 1 tablet in the evening. mirtazapine 2023-0 Yes [id number] 30mg Take 1 Univers 30 mg 4-03 tablet by ity of tablet 00:00: mouth at [place] [address] bedtime. Medical Branch busPIRone 3-0 Yes [id number] 10mg Take 1 Un manoj 10 mg 4-03 tablet by ity of tablet 00:00: mouth in [place] 00 the Medical morning Branch and 1 tablet in the evening. mirtazapine 3-0 Yes [id number] 30mg Take 1 Univers 30 mg 4-03 tablet by ity of tablet 00:00: mouth at [place] [address] bedtime. Medical Branch busPIRone 2022-0 Yes [id number] 10mg Take 1 Un manoj 10 mg 4-03 tablet by ity of tablet 00:00: mouth in [place] 00 the Medical morning Branch and 1 tablet in the evening. mirtazapine 3-0 Yes [id number] 30mg Take 1 Univers 30 mg 4-03 tablet by ity of tablet 00:00: mouth at [place] [address] bedtime. Medical Branch busPIRone 2022-0 Yes [id number] 10mg Take 1 Un manoj 10 mg 4-03 tablet by ity of tablet 00:00: mouth in [place] 00 the Medical morning Branch and 1 tablet in the evening. mirtazapine 3-0 Yes [id number] 30mg Take 1 Univers 30 mg 4-03 tablet by ity of tablet 00:00: mouth at [place] [address] bedtime. Medical Branch busPIRone 2022-0 Yes [id number] 10mg Take 1 Un manoj 10 mg 4-03 tablet by ity of tablet 00:00: mouth in [place] 00 the Medical morning Branch and 1 tablet in the evening. mirtazapine 3-0 Yes [id number] 30mg Take 1 Univers 30 mg 4-03 tablet by ity of tablet 00:00: mouth at [place] [address] bedtime. Medical Branch busPIRone 3-0 Yes [id number] 10mg Take 1 Un manoj 10 mg 4-03 tablet by ity of tablet 00:00: mouth in [place] 00 the Medical morning Branch and 1 tablet in the evening. mirtazapine 2023-0 Yes [id number] 30mg Take 1 Univers 30 mg 4-03 tablet by ity of tablet 00:00: mouth at [place] [address] bedtime. Medical Branch busPIRone 3-0 Yes [id number] 10mg Take 1 Un manoj 10 mg 4-03 tablet by ity of tablet 00:00: mouth in [place] 00 the Medical morning Branch and 1 tablet in the evening. mirtazapine 2023-0 Yes [id number] 30mg Take 1 Univers 30 mg 4-03 tablet by ity of tablet 00:00: mouth at [place] [address] bedtime. Medical Branch busPIRone 3-0 Yes [id number] 10mg Take 1 Un manoj 10 mg 4-03 tablet by ity of tablet 00:00: mouth in [place] 00 the Medical morning Branch and 1 tablet in the evening. mirtazapine 3-0 Yes [id number] 30mg Take 1 Univers 30 mg 4-03 tablet by ity of tablet 00:00: mouth at [place] [address] bedtime. Medical Branch busPIRone 3-0 Yes [id number] 10mg Take 1 Un manoj 10 mg 4-03 tablet by ity of tablet 00:00: mouth in [place] 00 the Medical morning Branch and 1 tablet in the evening. mirtazapine 3-0 Yes [id number] 30mg Take 1 Univers 30 mg 4-03 tablet by ity of tablet 00:00: mouth at [place] [address] bedtime. Medical Branch busPIRone 3-0 Yes [id number] 10mg Take 1 Un manoj 10 mg 4-03 tablet by ity of tablet 00:00: mouth in [place] 00 the Medical morning Branch and 1 tablet in the evening. mirtazapine 3-0 Yes [id number] 30mg Take 1 Univers 30 mg 4-03 tablet by ity of tablet 00:00: mouth at [place] [address] bedtime. Medical Branch busPIRone 3-0 Yes [id number] 10mg Take 1 Un manoj 10 mg 4-03 tablet by ity of tablet 00:00: mouth in [place] 00 the Medical morning Branch and 1 tablet in the evening. mirtazapine 2023-0 Yes [id number] 30mg Take 1 Univers 30 mg 4-03 tablet by ity of tablet 00:00: mouth at [place] [address] bedtime. Medical Branch busPIRone 3-0 Yes [id number] 10mg Take 1 Un manoj 10 mg 4-03 tablet by ity of tablet 00:00: mouth in [place] 00 the Medical morning Branch and 1 tablet in the evening. mirtazapine 2023-0 Yes [id number] 30mg Take 1 Univers 30 mg 4-03 tablet by ity of tablet 00:00: mouth at [place] [address] bedtime. Medical Branch busPIRone 3-0 Yes [id number] 10mg Take 1 Un manoj 10 mg 4-03 tablet by ity of tablet 00:00: mouth in [place] 00 the Medical morning Branch and 1 tablet in the evening. mirtazapine 3-0 Yes [id number] 30mg Take 1 [facility] 30 mg 4-03 tablet by ity of tablet 00:00: mouth at [place] [address] bedtime. Medical Branch busPIRone 3-0 Yes [id number] 10mg Take 1 Un manoj 10 mg 4-03 tablet by ity of tablet 00:00: mouth in [place] 00 the Medical morning Branch and 1 tablet in the evening. mirtazapine 3-0 Yes [id number] 30mg Take 1 Univers 30 mg 4-03 tablet by ity of tablet 00:00: mouth at [place] [address] bedtime. Medical Branch busPIRone 3-0 Yes [id number] 10mg Take 1 Un manoj 10 mg 4-03 tablet by ity of tablet 00:00: mouth in [place] 00 the Medical morning Branch and 1 tablet in the evening. mirtazapine 3-0 Yes [id number] 30mg Take 1 Univers 30 mg 4-03 tablet by ity of tablet 00:00: mouth at [place] [address] bedtime. Medical Branch busPIRone 3-0 Yes [id number] 10mg Take 1 Un manoj 10 mg 4-03 tablet by ity of tablet 00:00: mouth in [place] 00 the Medical morning Branch and 1 tablet in the evening. mirtazapine 2023-0 Yes [id number] 30mg Take 1 [facility] 30 mg 4-03 tablet by ity of tablet 00:00: mouth at [place] [address] bedtime. Medical Branch busPIRone 3-0 Yes [id number] 10mg Take 1 Un manoj 10 mg 4-03 tablet by ity of tablet 00:00: mouth in [place] 00 the Medical morning Branch and 1 tablet in the evening. mirtazapine 2023-0 Yes [id number] 30mg Take 1 [facility] 30 mg 4-03 tablet by ity of tablet 00:00: mouth at [place] [address] bedtime. Medical Branch busPIRone 3-0 Yes [id number] 10mg Take 1 Un manoj 10 mg 4-03 tablet by ity of tablet 00:00: mouth in [place] 00 the Medical morning Branch and 1 tablet in the evening. mirtazapine 2023-0 Yes [id number] 30mg Take 1 Univers 30 mg 4-03 tablet by ity of tablet 00:00: mouth at [place] [address] bedtime. Medical Branch busPIRone 2023-0 Yes [id number] 10mg Take 1 Un manoj 10 mg 4-03 tablet by ity of tablet 00:00: mouth in [place] 00 the Medical morning Branch and 1 tablet in the evening. mirtazapine 2023-0 Yes [id number] 30mg Take 1 Univers 30 mg 4-03 tablet by ity of tablet 00:00: mouth at [place] [address] bedtime. Medical Branch busPIRone 3-0 Yes [id number] 10mg Take 1 Un manoj 10 mg 4-03 tablet by ity of tablet 00:00: mouth in [place] 00 the Medical morning Branch and 1 tablet in the evening. mirtazapine 2023-0 Yes [id number] 30mg Take 1 [facility] 30 mg 4-03 tablet by ity of tablet 00:00: mouth at [place] [address] bedtime. Medical Branch busPIRone 3-0 Yes [id number] 10mg Take 1 Un manoj 10 mg 4-03 tablet by ity of tablet 00:00: mouth in [place] 00 the Medical morning Branch and 1 tablet in the evening. mirtazapine 2023-0 Yes [id number] 30mg Take 1 [facility] 30 mg 4-03 tablet by ity of tablet 00:00: mouth at [place] [address] bedtime. Medical Branch busPIRone 2023-0 Yes [id number] 10mg Take 1 Un manoj 10 mg 4-03 tablet by ity of tablet 00:00: mouth in [place] 00 the Medical morning Branch and 1 tablet in the evening. mirtazapine 2023-0 Yes [id number] 30mg Take 1 [facility] 30 mg 4-03 tablet by ity of tablet 00:00: mouth at [place] [address] bedtime. Medical Branch busPIRone 2023-0 Yes [id number] 10mg Take 1 Un manoj 10 mg 4-03 tablet by ity of tablet 00:00: mouth in [place] 00 the Medical morning Branch and 1 tablet in the evening. mirtazapine 2023-0 Yes [id number] 30mg Take 1 [facility] 30 mg 4-03 tablet by ity of tablet 00:00: mouth at [place] [address] bedtime. Medical Branch busPIRone 2023-0 Yes [id number] 10mg Take 1 Un manoj 10 mg 4-03 tablet by ity of tablet 00:00: mouth in [place] 00 the Medical morning Branch and 1 tablet in the evening. mirtazapine 2023-0 Yes [id number] 30mg Take 1 [facility] 30 mg 4-03 tablet by ity of tablet 00:00: mouth at [place] [address] bedtime. Medical Branch busPIRone 2023-0 Yes [id number] 10mg Take 1 Un manoj 10 mg 4-03 tablet by ity of tablet 00:00: mouth in [place] [address] the Medical morning Branch and 1 tablet in the evening. mirtazapine 2023-0 Yes [id number] 30mg Take 1 [facility] 30 mg 4-03 tablet by ity of tablet 00:00: mouth at [place] [address] bedtime. Medical Branch busPIRone 2023-0 Yes [id number] 10mg Take 1 Un manoj 10 mg 4-03 tablet by ity of tablet 00:00: mouth in [place] [address] the Medical morning Branch and 1 tablet in the evening. mirtazapine 2023-0 Yes [id number] 30mg Take 1 Univers 30 mg 4-03 tablet by ity of tablet 00:00: mouth at [place] [address] bedtime. Medical Branch mirtazapine 2023-0 Yes 30mg Take 1 Univ ers 30 mg 3-28 tablet by ity of tablet 14:37: mouth. [place] [address] Medical Branch mirtazapine 2023-0 Yes 30mg Take 1 Univ ers 30 mg 3-28 tablet by ity of tablet 14:37: mouth. [place] [address] Medical Branch promethazin 2023-0 Yes [id number] 5mL Take 5 mL Univers e-dextromet 3-28 by mouth 4 it y of horphan 00:00: (four) [place] 6.25-15 00 times Medical mg/5 mL daily as Branch syrup needed for Cough. ibuprofen 2023-0 Yes [id number] 800mg Take 1 Univers 800 mg 3-28 tablet by ity of tablet 00:00: mouth 3 [place] 00 (three) Medical times Branch daily as needed for Pain (scale 4-6). With meals. promethazin 2023-0 Yes [id number] 5mL Take 5 mL Univers e-dextromet 3-28 by mouth 4 it y of horphan 00:00: (four) [place] 6.25-15 00 times Medical mg/5 mL daily as Branch syrup needed for Cough. ibuprofen 2022-0 Yes [id number] 800mg Take 1 [facility] 800 mg 3-28 tablet by ity of tablet 00:00: mouth 3 [place] 00 (three) Medical times Branch daily as needed for Pain (scale 4-6). With meals. promethazin 2022-0 Yes [id number] 5mL Take 5 mL Univers e-dextromet 3-28 by mouth 4 it y of horphan 00:00: (four) [place] 6.25-15 00 times Medical mg/5 mL daily as Branch syrup needed for Cough. promethazin 2022-0 Yes [id number] 5mL Take 5 mL Univers e-dextromet 3-28 by mouth 4 it y of horphan 00:00: (four) [place] 6.25-15 00 times Medical mg/5 mL daily as Branch syrup needed for Cough. promethazin 2022-0 Yes [id number] 5mL Take 5 mL Univers e-dextromet 3-28 by mouth 4 it y of horphan 00:00: (four) [place] 6.25-15 00 times Medical mg/5 mL daily as Branch syrup needed for Cough. promethazin 2022-0 Yes [id number] 5mL Take 5 mL Univers e-dextromet 3-28 by mouth 4 it y of horphan 00:00: (four) [place] 6.25-15 00 times Medical mg/5 mL daily as Branch syrup needed for Cough. promethazin 2022-0 Yes [id number] 5mL Take 5 mL Univers e-dextromet 3-28 by mouth 4 it y of horphan 00:00: (four) [place] 6.25-15 00 times Medical mg/5 mL daily as Branch syrup needed for Cough. promethazin 2022-0 Yes [id number] 5mL Take 5 mL Univers e-dextromet 3-28 by mouth 4 it y of horphan 00:00: (four) [place] 6.25-15 00 times Medical mg/5 mL daily as Branch syrup needed for Cough. promethazin 2022-0 Yes [id number] 5mL Take 5 mL Univers e-dextromet 3-28 by mouth 4 it y of horphan 00:00: (four) [place] 6.25-15 00 times Medical mg/5 mL daily as Branch syrup needed for Cough. promethazin 3-0 Yes [id number] 5mL Take 5 mL Univers e-dextromet 3-28 by mouth 4 it y of horphan 00:00: (four) [place] 6.25-15 00 times Medical mg/5 mL daily as Branch syrup needed for Cough. promethazin 3-0 Yes [id number] 5mL Take 5 mL Univers e-dextromet 3-28 by mouth 4 it y of horphan 00:00: (four) [place] 6.25-15 00 times Medical mg/5 mL daily as Branch syrup needed for Cough. promethazin 3-0 Yes [id number] 5mL Take 5 mL [facility] e-dextromet 3-28 by mouth 4 it y of horphan 00:00: (four) [place] 6.25-15 00 times Medical mg/5 mL daily as Branch syrup needed for Cough. promethazin 3-0 Yes [id number] 5mL Take 5 mL [facility] e-dextromet 3-28 by mouth 4 it y of horphan 00:00: (four) [place] 6.25-15 00 times Medical mg/5 mL daily as Branch syrup needed for Cough. promethazin 3-0 Yes [id number] 5mL Take 5 mL [facility] e-dextromet 3-28 by mouth 4 it y of horphan 00:00: (four) [place] 6.25-15 00 times Medical mg/5 mL daily as Branch syrup needed for Cough. promethazin 3-0 Yes [id number] 5mL Take 5 mL [facility] e-dextromet 3-28 by mouth 4 it y of horphan 00:00: (four) [place] 6.25-15 00 times Medical mg/5 mL daily as Branch syrup needed for Cough. promethazin 2023-0 Yes [id number] 5mL Take 5 mL Univers e-dextromet 3-28 by mouth 4 it y of horphan 00:00: (four) [place] 6.25-15 00 times Medical mg/5 mL daily as Branch syrup needed for Cough. promethazin 2023-0 Yes [id number] 5mL Take 5 mL Univers e-dextromet 3-28 by mouth 4 it y of horphan 00:00: (four) [place] 6.25-15 00 times Medical mg/5 mL daily as Branch syrup needed for Cough. promethazin 3-0 Yes [id number] 5mL Take 5 mL [facility] e-dextromet 3-28 by mouth 4 it y of horphan 00:00: (four) [place] 6.25-15 00 times Medical mg/5 mL daily as Branch syrup needed for Cough. promethazin 3-0 Yes [id number] 5mL Take 5 mL [facility] e-dextromet 3-28 by mouth 4 it y of horphan 00:00: (four) [place] 6.25-15 00 times Medical mg/5 mL daily as Branch syrup needed for Cough. promethazin 2022-0 Yes [id number] 5mL Take 5 mL [facility] e-dextromet 3-28 by mouth 4 it y of horphan 00:00: (four) [place] 6.25-15 00 times Medical mg/5 mL daily as Branch syrup needed for Cough. promethazin 2022-0 Yes [id number] 5mL Take 5 mL [facility] e-dextromet 3-28 by mouth 4 it y of horphan 00:00: (four) [place] 6.25-15 00 times Medical mg/5 mL daily as Branch syrup needed for Cough. promethazin 2022-0 Yes [id number] 5mL Take 5 mL [facility] e-dextromet 3-28 by mouth 4 it y of horphan 00:00: (four) [place] 6.25-15 00 times Medical mg/5 mL daily as Branch syrup needed for Cough. promethazin 2022-0 Yes [id number] 5mL Take 5 mL [facility] e-dextromet 3-28 by mouth 4 it y of horphan 00:00: (four) [place] 6.25-15 00 times Medical mg/5 mL daily as Branch syrup needed for Cough. promethazin 3-0 Yes [id number] 5mL Take 5 mL [facility] e-dextromet 3-28 by mouth 4 it y of horphan 00:00: (four) [place] 6.25-15 00 times Medical mg/5 mL daily as Branch syrup needed for Cough. promethazin 2022-0 3- No [id number] 5mL Take 5 mL [facility] e-dextromet 3-28 07-10 by mouth 4 i ty of horphan 00:00: 00:00 (four) [place] 6.25-15 00 :00 times Medical mg/5 mL daily as Branch syrup needed for Cough. promethazin 2023-0 3- No [id number] 5mL Take 5 mL [facility] e-dextromet 11-05 07-10 by mouth 4 i ty of horphan 00:00: 00:00 (four) [place] 6.25-15 00 :00 times Medical mg/5 mL daily as Branch syrup needed for Cough. ibuprofen 2023-0 3- No [id number] 800mg Take 1 [facility] 800 mg -06 12-03 tablet by ity of tablet 00:00: 00:00 mouth 3 [place] 00 :00 (three) Medical times Branch daily as needed for Pain (scale 4-6). With meals. ibuprofen 2023-0 3- No [id number] 800mg Take 1 [facility] 800 mg -06 12-03 tablet by ity of tablet 00:00: 00:00 mouth 3 [place] 00 :00 (three) Medical times Branch daily as needed for Pain (scale 4-6). With meals. mirtazapine 2023-0 Yes 30mg Take 1 [facility] ers 30 mg 3-24 tablet by ity of tablet 10:06: mouth. [address] Branch mirtazapine 2023-0 Yes 30mg Take 1 [facility] ers 30 mg 3-24 tablet by ity of tablet 10:06: mouth. [address] mirtazapine 2023-0 Yes 30mg Take 1 [facility] ers 30 mg 3-24 tablet by ity of tablet 10:06: mouth. [address] mirtazapine 2023-0 Yes 30mg Take 1 [facility] ers 30 mg 3-24 tablet by ity of tablet 10:06: mouth. [address] Branch clonazePAM 2023-0 Yes 1mg Take 1 [facility] rs 1 mg tablet 3-24 tablet by ity of 10:06: mouth 3 [place] (three) Medical times Branch daily as needed. clonazePAM 2023-0 Yes 1mg Take 1 [facility] rs 1 mg tablet 3-24 tablet by ity of 10:06: mouth 3 [place] 09 (three) Medical times Branch daily as needed. clonazePAM 2023-0 Yes 1mg Take 1 [facility] rs 1 mg tablet 3-24 tablet by ity of 10:06: mouth 3 [place] (three) Medical times Branch daily as needed. clonazePAM 2023-0 Yes 1mg Take 1 [facility] rs 1 mg tablet 3-24 tablet by ity of 10:06: mouth 3 [place] (three) Medical times Branch daily as needed. clonazePAM 2023-0 Yes 1mg Take 1 [facility] rs 1 mg tablet 3-24 tablet by ity of 10:06: mouth 3 [place] (three) Medical times Branch daily as needed. clonazePAM 2023-0 Yes 1mg Take 1 [facility] rs 1 mg tablet 3-24 tablet by ity of 10:06: mouth 3 [place] (three) Medical times Branch daily as needed. albuterol 2023-0 Yes [id number] 2{puff} Inhale 2 [facility] 90 3-24 Puffs ity of mcg/actuati 00:00: every 4 [place] on inhaler 00 (four) Medical hours as Branch needed for Wheezing or Shortness of Breath. bromphenira 3-0 Yes [id number] 10mL Take 10 mL [facility] mine-pseudo 3-24 by mouth 4 it y of ephedrine-D 00:00: (four) [place] M (BROMFED 00 times Medical DM) 2-30-10 daily as Bran ch mg/5 mL needed for syrup Congestion /Allergies . omeprazole 2023-0 Yes [id number] 40mg Take 1 [facility] 40 mg 3-24 capsule by ity of capsule 00:00: mouth in [place] 00 the Medical morning. Branch predniSONE 2022-0 Yes [id number] Take two [facility] 20 mg 3-24 tabs for ity of tablet 00:00: three [place] days, take Medical one tab Branch for three days albuterol 2023-0 Yes [id number] 2{puff} Inhale 2 [facility] 90 3-24 Puffs ity of mcg/actuati 00:00: every 4 [place] on inhaler 00 (four) Medical hours as Branch needed for Wheezing or Shortness of Breath. bromphenira 2023-0 Yes [id number] 10mL Take 10 mL [facility] mine-pseudo 3-24 by mouth 4 it y of ephedrine-D 00:00: (four) [place] (BROMFED 00 times Medical DM) 2-30-10 daily as Bran ch mg/5 mL needed for syrup Congestion /Allergies . omeprazole 2023-0 Yes [id number] 40mg Take 1 [facility] 40 mg 3-24 capsule by ity of capsule 00:00: mouth in [place] 00 the Medical morning. Branch predniSONE 2022-0 Yes [id number] Take two [facility] 20 mg 3-24 tabs for ity of tablet 00:00: three [place] days, take Medical one tab Branch for three days albuterol 3-0 Yes [id number] 2{puff} Inhale 2 [facility] 90 3-24 Puffs ity of mcg/actuati 00:00: every 4 [place] on inhaler 00 (four) Medical hours as Branch needed for Wheezing or Shortness of Breath. bromphenira 202-0 Yes [id number] 10mL Take 10 mL [facility] mine-pseudo 3-24 by mouth 4 it y of ephedrine-D 00:00: (four) [place] (BROMFED 00 times Medical DM) 2-30-10 daily as Bran ch mg/5 mL needed for syrup Congestion /Allergies . predniSONE 2022-0 Yes [id number] Take two [facility] 20 mg 3-24 tabs for ity of tablet 00:00: three [place] days, take Medical one tab Branch for three days cefpodoxime 2023-0 Yes [id number] 200mg Take 1 [facility] 200 mg 3-24 tablet by ity of tablet 00:00: mouth in [place] 00 the Medical morning Branch and 1 tablet in the evening. azithromyci 2023-0 Yes [id number] 500mg Take 1 [facility] n 500 mg 3-24 tablet by ity of tablet 00:00: mouth in [place] 00 the Medical morning. Branch albuterol 2022-0 Yes [id number] 2{puff} Inhale 2 [facility] 90 3-24 Puffs ity of mcg/actuati 00:00: every 4 [place] on inhaler 00 (four) Medical hours as Branch needed for Wheezing or Shortness of Breath. bromphenira 2023-0 Yes [id number] 10mL Take 10 mL [facility] mine-pseudo 3-24 by mouth 4 it y of ephedrine-D 00:00: (four) [place] (BROMFED 00 times Medical DM) 2-30-10 daily as Bran ch mg/5 mL needed for syrup Congestion /Allergies . predniSONE 3-0 Yes [id number] Take two [facility] 20 mg 3-24 tabs for ity of tablet 00:00: three [place] 00 days, take Medical one tab Branch for three days cefpodoxime 2023-0 Yes [id number] 200mg Take 1 [facility] 200 mg 3-24 tablet by ity of tablet 00:00: mouth in [place] 00 the Medical morning Branch and 1 tablet in the evening. azithromyci 2023-0 Yes [id number] 500mg Take 1 [facility] n 500 mg 3-24 tablet by ity of tablet 00:00: mouth in [place] 00 the Medical morning. Branch albuterol 2023-0 Yes [id number] 2{puff} Inhale 2 [facility] 90 3-24 Puffs ity of mcg/actuati 00:00: every 4 [place] on inhaler 00 (four) Medical hours as Branch needed for Wheezing or Shortness of Breath. cefpodoxime 2023-0 Yes [id number] 200mg Take 1 [facility] 200 mg 3-24 tablet by ity of tablet 00:00: mouth in [place] the Medical morning Branch and 1 tablet in the evening. azithromyci 2023-0 Yes [id number] 500mg Take 1 [facility] n 500 mg 3-24 tablet by ity of tablet 00:00: mouth in [place] 00 the Medical morning. Branch albuterol 2023-0 Yes [id number] 2{puff} Inhale 2 [facility] 90 3-24 Puffs ity of mcg/actuati 00:00: every 4 [place] on inhaler 00 (four) Medical hours as Branch needed for Wheezing or Shortness of Breath. cefpodoxime 2023-0 Yes [id number] 200mg Take 1 [facility] 200 mg 3-24 tablet by ity of tablet 00:00: mouth in [place] the Medical morning Branch and 1 tablet in the evening. azithromyci 2023-0 Yes [id number] 500mg Take 1 [facility] n 500 mg 3-24 tablet by ity of tablet 00:00: mouth in [place] 00 the Medical morning. Branch albuterol 2023-0 Yes [id number] 2{puff} Inhale 2 [facility] 90 3-24 Puffs ity of mcg/actuati 00:00: every 4 [place] on inhaler 00 (four) Medical hours as Branch needed for Wheezing or Shortness of Breath. azithromyci 2023-0 Yes [id number] 500mg Take 1 [facility] n 500 mg 3-24 tablet by ity of tablet 00:00: mouth in [place] 00 the Medical morning. Branch omeprazole 2023-0 Yes 40mg Take 1 [facility] rs 40 mg 3-24 capsule by ity of capsule 00:00: mouth in [place] 00 the Medical morning. Branch albuterol 2023-0 Yes [id number] 2{puff} Inhale 2 [facility] 90 3-24 Puffs ity of mcg/actuati 00:00: every 4 [place] on inhaler 00 (four) Medical hours as Branch needed for Wheezing or Shortness of Breath. azithromyci 2023-0 Yes [id number] 500mg Take 1 [facility] n 500 mg 3-24 tablet by ity of tablet 00:00: mouth in [place] 00 the Medical morning. Branch omeprazole 2023-0 Yes 40mg Take 1 [facility] rs 40 mg 3-24 capsule by ity of capsule 00:00: mouth in [place] the Medical morning. Branch azithromyci 2023-0 Yes [id number] 500mg Take 1 [facility] n 500 mg 3-24 tablet by ity of tablet 00:00: mouth in [place] the Medical morning. Branch omeprazole 2023-0 Yes 40mg Take 1 [facility] rs 40 mg 3-24 capsule by ity of capsule 00:00: mouth in [place] the Medical morning. Branch azithromyci 2023-0 Yes [id number] 500mg Take 1 [facility] n 500 mg 3-24 tablet by ity of tablet 00:00: mouth in [place] 00 the Medical morning. Branch omeprazole 2023-0 Yes 40mg Take 1 [facility] rs 40 mg 3-24 capsule by ity of capsule 00:00: mouth in [place] 00 the Medical morning. Branch azithromyci 2023-0 Yes [id number] 500mg Take 1 [facility] n 500 mg 3-24 tablet by ity of tablet 00:00: mouth in [place] 00 the Medical morning. Branch omeprazole 2023-0 Yes 40mg Take 1 [facility] rs 40 mg 3-24 capsule by ity of capsule 00:00: mouth in [place] 00 the Medical morning. Branch azithromyci 2023-0 2023- No [id number] 500mg Take 1 [facility] n 500 mg 3-24 -14 tablet by ity o f tablet 00:00: 00:00 mouth in [place] 00 :00 the Medical morning. Branch omeprazole 2023-0 2023- No 40mg Take 1 [facility] ers 40 mg 3-24 -14 capsule by ity of capsule 00:00: 00:00 mouth in [place] 00 :00 the Medical morning. Branch albuterol 2022- No [id number] 2{puff} Inhale 2 [facility] 90 3-24 04-07 Puffs ity of mcg/actuati 00:00: 00:00 every 4 [place] on inhaler 00 :00 (four) Medical hours as Branch needed for Wheezing or Shortness of Breath. albuterol 2022- No [id number] 2{puff} Inhale 2 [facility] 90 -24 04-07 Puffs ity of mcg/actuati 00:00: 00:00 every 4 [place] on inhaler 00 :00 (four) Medical hours as Branch needed for Wheezing or Shortness of Breath. cefpodoxime 2022- No [id number] 200mg Take 1 [facility] 200 mg 11-01- tablet by ity of tablet 00:00: 00:00 mouth in [place] 00 :00 the Medical morning Branch and 1 tablet in the evening. cefpodoxime 2022- No [id number] 200mg Take 1 [facility] 200 mg 11-01- tablet by ity of tablet 00:00: 00:00 mouth in [place] 00 :00 the Medical morning Branch and 1 tablet in the evening. bromphenira 2022- No [id number] 10mL Take 10 mL [facility] mine-pseudo 11-01 by mouth 4 i ty of ephedrine-D 00:00: 00:00 (four) [place] M (BROMFED 00 :00 times Medical DM) 2-30-10 daily as Bran ch mg/5 mL needed for syrup Congestion /Allergies . predniSONE 2022- No [id number] Take two [facility] 20 mg 11-01 tabs for ity of tablet 00:00: 00:00 three [place] 00 :00 days, take Medical one tab Branch for three days bromphenira 2022- No [id number] 10mL Take 10 mL [facility] mine-pseudo 11-01 by mouth 4 i ty of ephedrine-D 00:00: 00:00 (four) [place] M (BROMFED 00 :00 times Medical DM) 2-30-10 daily as Bran ch mg/5 mL needed for syrup Congestion /Allergies . predniSONE 2022- No [id number] Take two [facility] 20 mg 3-24 -28 tabs for ity of tablet 00:00: 00:00 three [place] 00 :00 days, take Medical one tab Branch for three days omeprazole 2022- No [id number] 40mg Take 1 [facility] 40 mg -24 -24 capsule by ity of capsule 00:00: 00:00 mouth in [place] 00 :00 the Medical morning. Branch busPIRone Yes [facility] 10 mg 3-14 ity of tablet 00:00: [place] [facility] busPIRone 0 Yes [facility] 10 mg 3-14 ity of tablet 00:00: [place] [facility] busPIRone 0 Yes [facility] 10 mg 3-14 ity of tablet 00:00: [place] [facility] busPIRone 0 Yes [facility] 10 mg 3-14 ity of tablet 00:00: [place] [facility] busPIRone 0 Yes [facility] 10 mg 3-14 ity of tablet 00:00: [place] [facility] busPIRone 0 Yes Univers 10 mg 3-14 ity of tablet 00:00: [address] busPIRone 0 2022- No Take by [facility] ers 10 mg 3-14 04-03 mouth 2 ity of tablet 00:00: 00:00 (two) [place] 00 :00 times Medical daily as Branch needed. busPIRone 2022- No Take by [facility] ers 10 mg 3-14 04-03 mouth 2 ity of tablet 00:00: 00:00 (two) [place] 00 :00 times Medical daily as Branch needed. levalbutero 2022- No 1.25mg 1.25 mg, Univers l (XOPENEX) 10-16- Inhalation i ty of nebulizer 09:15: 08:31 , ONCE, 1 [place] solution 00 :00 dose, On Medical 1.25 mg 10/16/22 Branch at 0315, Routine proMETHazin 2022- No 25mg 25 mg, IV Univers e 10-16- Piggyback, ity of (PHENERGAN) 08:30: 08:49 ONCE, 1 [place] 25 mg in 00 :00 dose, On Medical NaCl 0.9% Fri10/16/22 Bran ch (NS) 50 mL at 0230, IV MEGHA piggyback dexamethaso 2022- No 10mg 10 mg, Uni vers ne sod phos 10-16 Slow IV ity of PF 08:30: 08:50 [place], [place] injection 00 :00 ONCE, 1 Medical 10 mg dose, On Branch 10/16/22 at 0230, 1 mL ipratropium 2022- No .5mg 0.5 mg, Un manoj (ATROVENT) 10-16 Inhalation it y of 0.02 % 08:30: 08:31 , ONCE, 1 [place] nebulizer 00 :00 dose, On Medica l solution Fri10/16/22 Branc h 0.5 mg at 0230, MEGHA oxymetazoli 2022-2022- No 1{spray 1 [place], Univers ne 10-16 } Nasal, ity of (OXYMETAZOL 08:30: 08:18 ONCE, 1 [place] INE HCL) 00 :00 dose, On Medical 0.05 % Fri10/16/22 Branch nasal spray at 0230, 1 [place] MEGHA amoxicillin 2022-0 Yes [id number] 1{tbl} Take 1 [facility] -clavulanat 3-08 tablet by ity of e 875-125 00:00: mouth [place] mg per 00 every 12 Medical tablet (twelve) Branch hours. albuterol 2022-0 Yes [id number] 2{puff} Inhale 2 [facility] 90 3-08 Puffs ity of mcg/actuati 00:00: every 4 [place] on inhaler 00 (four) Medical hours as Branch needed for Wheezing or Shortness of Breath. benzonatate 2022-0 Yes [id number] 100mg Take 1 [facility] 100 mg 3-08 capsule by ity of capsule 00:00: mouth 3 [place] 00 (three) Medical times Branch daily as needed for Cough. amoxicillin 2022-0 2022- No [id number] 1{tbl} Take 1 [facility] -clavulanat 3-08 03-24 tablet by it y of e 875-125 00:00: 00:00 mouth [place] mg per 00 :00 every 12 Medical tablet (twelve) Branch hours. albuterol 3-0 2023- No [id number] 2{puff} Inhale 2 [facility] 90 3-08 03-24 Puffs ity of mcg/actuati 00:00: 00:00 every 4 [place] on inhaler 00 :00 (four) Medical hours as Branch needed for Wheezing or Shortness of Breath. benzonatate 2023-0 2023- No [id number] 100mg Take 1 [facility] 100 mg 3-08 03-24 capsule by ity of capsule 00:00: 00:00 mouth 3 [place] 00 :00 (three) Medical times Branch daily as needed for Cough. amoxicillin 2022-0 2023- No [id number] 1{tbl} Take 1 [facility] -clavulanat 3-08 03-24 tablet by it y of e 875-125 00:00: 00:00 mouth [place] mg per 00 :00 every 12 Medical tablet (twelve) Branch hours. albuterol 3-0 2023- No [id number] 2{puff} Inhale 2 [facility] 90 3-08 03-24 Puffs ity of mcg/actuati 00:00: 00:00 every 4 [place] on inhaler 00 :00 (four) Medical hours as Branch needed for Wheezing or Shortness of Breath. benzonatate 3-0 3- No [id number] 100mg Take 1 [facility] 100 mg 3-08 03-24 capsule by ity of capsule 00:00: 00:00 mouth 3 [place] 00 :00 (three) Medical times Branch daily as needed for Cough. amoxicillin 3-0 2023- No [id number] 1{tbl} Take 1 [facility] -clavulanat 3-08 03-24 tablet by it y of e 875-125 00:00: 00:00 mouth [place] mg per 00 :00 every 12 Medical tablet (twelve) Branch hours. albuterol 3-0 2023- No [id number] 2{puff} Inhale 2 [facility] 90 3-08 03-24 Puffs ity of mcg/actuati 00:00: 00:00 every 4 [place] on inhaler 00 :00 (four) Medical hours as Branch needed for Wheezing or Shortness of Breath. benzonatate 2023-0 2023- No [id number] 100mg Take 1 [facility] 100 mg 3-08 03-24 capsule by ity of capsule 00:00: 00:00 mouth 3 [place] 00 :00 (three) Medical times Branch daily as needed for Cough. lipase-prot 2022-0 Yes [id number] 1{capsu Take 1 [facility] ease-amylas 3-03 le} capsule by it y of e 00:00: mouth as [place] 36,000-114, 00 needed for Me dical 000- Nausea and Branch 180,000 Vomiting unit CpDR (N/V). Take 2 capsules by mouth with meals and 1 with each snack. ondansetron 2022-0 Yes [id number] 4mg Take 1 [facility] 4 mg 3-03 tablet by ity of disintegrat 00:00: mouth [place] ing tablet 00 every 8 Medica l (eight) Branch hours as needed for Nausea and Vomiting (N/V). proMETHazin 2022-0 Yes [id number] 25mg Take 1 Univers e 25 mg 3-03 tablet by ity of tablet 00:00: mouth [place] 00 every 6 Medical (six) Branch hours as needed for N/V unresponsi ve to Ondansetro n. metoclopram 0 Yes [id number] 10mg Take 1 [facility] [place] HCl 10 3-03 tablet by ity of mg tablet 00:00: mouth [place] 00 bedtime as Medical needed for Branch Nausea and Vomiting (N/V). lipase-prot 2022-0 Yes [id number] 1{capsu Take 1 [facility] ease-amylas 3-03 le} capsule by it y of e 00:00: mouth as [place] 36,000-114, 00 needed for Me dical 000- Nausea and Branch 180,000 Vomiting unit CpDR (N/V). Take 2 capsules by mouth with meals and 1 with each snack. ondansetron 2022-0 Yes [id number] 4mg Take 1 [facility] 4 mg 3-03 tablet by ity of disintegrat 00:00: mouth [place] ing tablet 00 every 8 Medica l (eight) Branch hours as needed for Nausea and Vomiting (N/V). proMETHazin 2022-0 Yes [id number] 25mg Take 1 Univers e 25 mg 3-03 tablet by ity of tablet 00:00: mouth [place] 00 every 6 Medical (six) Branch hours as needed for N/V unresponsi ve to Ondansetro n. metoclopram 2022-0 Yes [id number] 10mg Take 1 [facility] [place] HCl 10 3-03 tablet by ity of mg tablet 00:00: mouth at [place] 00 bedtime as Medical needed for Branch Nausea and Vomiting (N/V). lipase-prot 3-0 Yes [id number] 1{capsu Take 1 [facility] ease-amylas 3-03 le} capsule by it y of e 00:00: mouth as [place] 36,000-114, 00 needed for Me dical 000- Nausea and Branch 180,000 Vomiting unit CpDR (N/V). Take 2 capsules by mouth with meals and 1 with each snack. ondansetron 3-0 Yes [id number] 4mg Take 1 [facility] 4 mg 3-03 tablet by ity of disintegrat 00:00: mouth [place] ing tablet 00 every 8 Medica l (eight) Branch hours as needed for Nausea and Vomiting (N/V). proMETHazin 3-0 Yes [id number] 25mg Take 1 Univers e 25 mg 3-03 tablet by ity of tablet 00:00: mouth [place] 00 every 6 Medical (six) Branch hours as needed for N/V unresponsi ve to Ondansetro n. metoclopram 2022-0 Yes [id number] 10mg Take 1 [facility] [place] HCl 10 3-03 tablet by ity of mg tablet 00:00: mouth [place] 00 bedtime as Medical needed for Branch Nausea and Vomiting (N/V). lipase-prot 2022-0 Yes [id number] 1{capsu Take 1 [facility] ease-amylas 3-03 le} capsule by it y of e 00:00: mouth as [place] 36,000-114, 00 needed for Me dical 000- Nausea and Branch 180,000 Vomiting unit CpDR (N/V). Take 2 capsules by mouth with meals and 1 with each snack. ondansetron 3-0 Yes [id number] 4mg Take 1 [facility] 4 mg 3-03 tablet by ity of disintegrat 00:00: mouth [place] ing tablet 00 every 8 Medica l (eight) Branch hours as needed for Nausea and Vomiting (N/V). proMETHazin 2023-0 Yes [id number] 25mg Take 1 Univers e 25 mg 3-03 tablet by ity of tablet 00:00: mouth [place] 00 every 6 Medical (six) Branch hours as needed for N/V unresponsi ve to Ondansetro n. metoclopram 2023-0 Yes [id number] 10mg Take 1 [facility] [place] HCl 10 3-03 tablet by ity of mg tablet 00:00: mouth [place] 00 bedtime as Medical needed for Branch Nausea and Vomiting (N/V). lipase-prot 3-0 Yes [id number] 1{capsu Take 1 [facility] ease-amylas 3-03 le} capsule by it y of e 00:00: mouth as [place] 36,000-114, 00 needed for Me dical 000- Nausea and Branch 180,000 Vomiting unit CpDR (N/V). Take 2 capsules by mouth with meals and 1 with each snack. ondansetron 3-0 Yes [id number] 4mg Take 1 [facility] 4 mg 3-03 tablet by ity of disintegrat 00:00: mouth [place] ing tablet 00 every 8 Medica l (eight) Branch hours as needed for Nausea and Vomiting (N/V). proMETHazin 3-0 Yes [id number] 25mg Take 1 Univers e 25 mg 3-03 tablet by ity of tablet 00:00: mouth [place] 00 every 6 Medical (six) Branch hours as needed for N/V unresponsi ve to Ondansetro n. metoclopram 2022-0 Yes [id number] 10mg Take 1 [facility] [place] HCl 10 3-03 tablet by ity of mg tablet 00:00: mouth [place] 00 bedtime as Medical needed for Branch Nausea and Vomiting (N/V). lipase-prot 2022-0 Yes [id number] 1{capsu Take 1 [facility] ease-amylas 3-03 le} capsule by it y of e 00:00: mouth as [place] 36,000-114, 00 needed for Me dical 000- Nausea and Branch 180,000 Vomiting unit CpDR (N/V). Take 2 capsules by mouth with meals and 1 with each snack. ondansetron 2023-0 Yes [id number] 4mg Take 1 [facility] 4 mg 3-03 tablet by ity of disintegrat 00:00: mouth [place] ing tablet 00 every 8 Medica l (eight) Branch hours as needed for Nausea and Vomiting (N/V). proMETHazin 2023-0 Yes [id number] 25mg Take 1 Univers e 25 mg 3-03 tablet by ity of tablet 00:00: mouth [place] 00 every 6 Medical (six) Branch hours as needed for N/V unresponsi ve to Ondansetro n. metoclopram 3-0 Yes [id number] 10mg Take 1 [facility] [place] HCl 10 3-03 tablet by ity of mg tablet 00:00: mouth [place] 00 bedtime as Medical needed for Branch Nausea and Vomiting (N/V). lipase-prot 2022-0 Yes [id number] 1{capsu Take 1 [facility] ease-amylas 3-03 le} capsule by it y of e 00:00: mouth as [place] 36,000-114, 00 needed for Me dical 000- Nausea and Branch 180,000 Vomiting unit CpDR (N/V). Take 2 capsules by mouth with meals and 1 with each snack. ondansetron 2022-0 Yes [id number] 4mg Take 1 [facility] 4 mg 3-03 tablet by ity of disintegrat 00:00: mouth [place] ing tablet 00 every 8 Medica l (eight) Branch hours as needed for Nausea and Vomiting (N/V). proMETHazin 2022-0 Yes [id number] 25mg Take 1 Univers e 25 mg 3-03 tablet by ity of tablet 00:00: mouth [place] 00 every 6 Medical (six) Branch hours as needed for N/V unresponsi ve to Ondansetro n. metoclopram 2022-0 Yes [id number] 10mg Take 1 [facility] [place] HCl 10 3-03 tablet by ity of mg tablet 00:00: mouth [place] 00 bedtime as Medical needed for Branch Nausea and Vomiting (N/V). lipase-prot 2022-0 Yes [id number] 1{capsu Take 1 [facility] ease-amylas 3-03 le} capsule by it y of e 00:00: mouth as [place] 36,000-114, 00 needed for Me dical 000- Nausea and Branch 180,000 Vomiting unit CpDR (N/V). Take 2 capsules by mouth with meals and 1 with each snack. ondansetron 2022-0 Yes [id number] 4mg Take 1 Univers 4 mg 3-03 tablet by ity of disintegrat 00:00: mouth [place] ing tablet 00 every 8 Medica l (eight) Branch hours as needed for Nausea and Vomiting (N/V). proMETHazin 2023-0 Yes [id number] 25mg Take 1 Univers e 25 mg 3-03 tablet by ity of tablet 00:00: mouth [place] 00 every 6 Medical (six) Branch hours as needed for N/V unresponsi ve to Ondansetro n. metoclopram 3-0 Yes [id number] 10mg Take 1 [facility] [place] HCl 10 3-03 tablet by ity of mg tablet 00:00: mouth [place] 00 bedtime as Medical needed for Branch Nausea and Vomiting (N/V). lipase-prot 3-0 Yes [id number] 1{capsu Take 1 [facility] ease-amylas 3-03 le} capsule by it y of e 00:00: mouth as [place] 36,000-114, 00 needed for Me dical 000- Nausea and Branch 180,000 Vomiting unit CpDR (N/V). Take 2 capsules by mouth with meals and 1 with each snack. ondansetron 2022-0 Yes [id number] 4mg Take 1 Univers 4 mg 3-03 tablet by ity of disintegrat 00:00: mouth [place] ing tablet 00 every 8 Medica l (eight) Branch hours as needed for Nausea and Vomiting (N/V). proMETHazin 2022-0 Yes [id number] 25mg Take 1 Univers e 25 mg 3-03 tablet by ity of tablet 00:00: mouth [place] 00 every 6 Medical (six) Branch hours as needed for N/V unresponsi ve to Ondansetro n. metoclopram 2022-0 Yes [id number] 10mg Take 1 [facility] [place] HCl 10 3-03 tablet by ity of mg tablet 00:00: mouth [place] 00 bedtime as Medical needed for Branch Nausea and Vomiting (N/V). lipase-prot 3-0 Yes [id number] 1{capsu Take 1 [facility] ease-amylas 3-03 le} capsule by it y of e 00:00: mouth as [place] 36,000-114, 00 needed for Me dical 000- Nausea and Branch 180,000 Vomiting unit CpDR (N/V). Take 2 capsules by mouth with meals and 1 with each snack. ondansetron 3-0 Yes [id number] 4mg Take 1 Univers 4 mg 3-03 tablet by ity of disintegrat 00:00: mouth [place] ing tablet 00 every 8 Medica l (eight) Branch hours as needed for Nausea and Vomiting (N/V). proMETHazin 2023-0 Yes [id number] 25mg Take 1 Univers e 25 mg 3-03 tablet by ity of tablet 00:00: mouth [place] 00 every 6 Medical (six) Branch hours as needed for N/V unresponsi ve to Ondansetro n. metoclopram 2023-0 Yes [id number] 10mg Take 1 [facility] [place] HCl 10 3-03 tablet by ity of mg tablet 00:00: mouth [place] 00 bedtime as Medical needed for Branch Nausea and Vomiting (N/V). lipase-prot 2023-0 Yes [id number] 1{capsu Take 1 [facility] ease-amylas 3-03 le} capsule by it y of e 00:00: mouth as [place] 36,000-114, 00 needed for Me dical 000- Nausea and Branch 180,000 Vomiting unit CpDR (N/V). Take 2 capsules by mouth with meals and 1 with each snack. ondansetron 2022-0 Yes [id number] 4mg Take 1 [facility] 4 mg 3-03 tablet by ity of disintegrat 00:00: mouth [place] ing tablet 00 every 8 Medica l (eight) Branch hours as needed for Nausea and Vomiting (N/V). proMETHazin 3-0 Yes [id number] 25mg Take 1 Univers e 25 mg 3-03 tablet by ity of tablet 00:00: mouth [place] 00 every 6 Medical (six) Branch hours as needed for N/V unresponsi ve to Ondansetro n. metoclopram 2022-0 Yes [id number] 10mg Take 1 [facility] [place] HCl 10 3-03 tablet by ity of mg tablet 00:00: mouth [place] 00 bedtime as Medical needed for Branch Nausea and Vomiting (N/V). lipase-prot 2023-0 Yes [id number] 1{capsu Take 1 [facility] ease-amylas 3-03 le} capsule by it y of e 00:00: mouth as [place] 36,000-114, 00 needed for Me dical 000- Nausea and Branch 180,000 Vomiting unit CpDR (N/V). Take 2 capsules by mouth with meals and 1 with each snack. ondansetron 3-0 Yes [id number] 4mg Take 1 [facility] 4 mg 3-03 tablet by ity of disintegrat 00:00: mouth [place] ing tablet 00 every 8 Medica l (eight) Branch hours as needed for Nausea and Vomiting (N/V). proMETHazin 2023-0 Yes [id number] 25mg Take 1 [facility] 25 mg 3-03 tablet by [facility]y of tablet 00:00: mouth [place] 00 every 6 Medical (six) Branch hours as needed for N/V unresponsi ve to Ondansetro n. metoclopram 2022-0 Yes [id number] 10mg Take 1 [facility] HCl 10 3-03 tablet by [facility] mg tablet 00:00: [place] 00 bedtime as Medical needed for Branch Nausea and Vomiting (N/V). lipase-prot 2022-0 Yes [id number] 1{capsu Take 1 [facility] ease-amylas 3-03 le} capsule by it y of e 00:00: mouth as [place] 36,000-114, 00 needed for Me dical 000- Nausea and Branch 180,000 Vomiting unit CpDR (N/V). Take 2 capsules by mouth with meals and 1 with each snack. ondansetron 2022-0 Yes [id number] 4mg Take 1 [facility] 4 mg 3-03 tablet by ity of disintegrat 00:00: mouth [place] ing tablet 00 every 8 Medica l (eight) Branch hours as needed for Nausea and Vomiting (N/V). proMETHazin 2022-0 Yes [id number] 25mg Take 1 [facility] e 25 mg 3-03 tablet by ity of tablet 00:00: mouth [place] 00 every 6 Medical (six) Branch hours as needed for N/V unresponsi ve to Ondansetro n. metoclopram 2022-0 Yes [id number] 10mg Take 1 [facility] HCl 10 3-03 tablet by [facility] mg tablet 00:00: [place] 00 bedtime as Medical needed for Branch Nausea and Vomiting (N/V). lipase-prot 2023-0 Yes [id number] 1{capsu Take 1 [facility] ease-amylas 3-03 le} capsule by it y of e 00:00: mouth as [place] 36,000-114, 00 needed for Me dical 000- Nausea and Branch 180,000 Vomiting unit CpDR (N/V). Take 2 capsules by mouth with meals and 1 with each snack. ondansetron 2023-0 Yes [id number] 4mg Take 1 [facility] 4 mg 3-03 tablet by ity of disintegrat 00:00: mouth [place] ing tablet 00 every 8 Medica l (eight) Branch hours as needed for Nausea and Vomiting (N/V). proMETHazin 2023-0 Yes [id number] 25mg Take 1 [facility] e 25 mg 3-03 tablet by ity of tablet 00:00: mouth [place] 00 every 6 Medical (six) Branch hours as needed for N/V unresponsi ve to Ondansetro n. metoclopram 3-0 Yes [id number] 10mg Take 1 [facility] HCl 10 3-03 tablet by [facility] mg tablet 00:00: mouth [place] 00 bedtime as Medical needed for Branch Nausea and Vomiting (N/V). lipase-prot 2022-0 Yes [id number] 1{capsu Take 1 [facility] ease-amylas 3-03 le} capsule by it y of e 00:00: mouth as [place] 36,000-114, 00 needed for Me dical 000- Nausea and Branch 180,000 Vomiting unit CpDR (N/V). Take 2 capsules by mouth with meals and 1 with each snack. ondansetron 3-0 Yes [id number] 4mg Take 1 [facility] 4 mg 3-03 tablet by ity of disintegrat 00:00: mouth [place] ing tablet 00 every 8 Medica l (eight) Branch hours as needed for Nausea and Vomiting (N/V). proMETHazin 3-0 Yes [id number] 25mg Take 1 [facility] e 25 mg 3-03 tablet by ity of tablet 00:00: mouth [place] 00 every 6 Medical (six) Branch hours as needed for N/V unresponsi ve to Ondansetro n. metoclopram 3-0 Yes [id number] 10mg Take 1 [facility] HCl 10 3-03 tablet by [facility] mg tablet 00:00: mouth [place] 00 bedtime as Medical needed for Branch Nausea and Vomiting (N/V). lipase-prot 2022-0 Yes [id number] 1{capsu Take 1 [facility] ease-amylas 3-03 le} capsule by it y of e 00:00: mouth as [place] 36,000-114, 00 needed for Me dical 000- Nausea and Branch 180,000 Vomiting unit CpDR (N/V). Take 2 capsules by mouth with meals and 1 with each snack. ondansetron 2022-0 Yes [id number] 4mg Take 1 [facility] 4 mg 3-03 tablet by ity of disintegrat 00:00: mouth [place] ing tablet 00 every 8 Medica l (eight) Branch hours as needed for Nausea and Vomiting (N/V). proMETHazin 2022-0 Yes [id number] 25mg Take 1 [facility] e 25 mg 3-03 tablet by ity of tablet 00:00: mouth [place] 00 every 6 Medical (six) Branch hours as needed for N/V unresponsi ve to Ondansetro n. metoclopram 2022-0 Yes [id number] 10mg Take 1 [facility] HCl 10 3-03 tablet by [facility] mg tablet 00:00: mouth [place] 00 bedtime as Medical needed for Branch Nausea and Vomiting (N/V). lipase-prot 2022-0 Yes [id number] 1{capsu Take 1 [facility] ease-amylas 3-03 le} capsule by it y of e 00:00: mouth as [place] 36,000-114, 00 needed for Me dical 000- Nausea and Branch 180,000 Vomiting unit CpDR (N/V). Take 2 capsules by mouth with meals and 1 with each snack. ondansetron 2022-0 Yes [id number] 4mg Take 1 [facility] 4 mg 3-03 tablet by ity of disintegrat 00:00: mouth [place] ing tablet 00 every 8 Medica l (eight) Branch hours as needed for Nausea and Vomiting (N/V). proMETHazin 3-0 Yes [id number] 25mg Take 1 [facility] e 25 mg 3-03 tablet by ity of tablet 00:00: mouth [place] 00 every 6 Medical (six) Branch hours as needed for N/V unresponsi ve to Ondansetro n. metoclopram 2022-0 Yes [id number] 10mg Take 1 [facility] HCl 10 3-03 tablet by [facility] of mg tablet 00:00: mouth [place] 00 bedtime as Medical needed for Branch Nausea and Vomiting (N/V). ondansetron 3-0 Yes [id number] 4mg Take 1 [facility] 4 mg 3-03 tablet by ity of disintegrat 00:00: mouth [place] ing tablet 00 every 8 Medica l (eight) Branch hours as needed for Nausea and Vomiting (N/V). proMETHazin 2023-0 Yes [id number] 25mg Take 1 [facility] e 25 mg 3-03 tablet by ity of tablet 00:00: mouth [place] 00 every 6 Medical (six) Branch hours as needed for N/V unresponsi ve to Ondansetro n. metoclopram 3-0 Yes [id number] 10mg Take 1 [facility] HCl 10 3-03 tablet by [facility] mg tablet 00:00: mouth [place] 00 bedtime as Medical needed for Branch Nausea and Vomiting (N/V). ondansetron 3-0 Yes [id number] 4mg Take 1 [facility] 4 mg 3-03 tablet by ity of disintegrat 00:00: mouth [place] ing tablet 00 every 8 Medica l (eight) Branch hours as needed for Nausea and Vomiting (N/V). proMETHazin 3-0 Yes [id number] 25mg Take 1 [facility] e 25 mg 3-03 tablet by ity of tablet 00:00: mouth [place] 00 every 6 Medical (six) Branch hours as needed for N/V unresponsi ve to Ondansetro n. metoclopram 3-0 Yes [id number] 10mg Take 1 [facility] HCl 10 3-03 tablet by [facility] of mg tablet 00:00: mouth [place] 00 bedtime as Medical needed for Branch Nausea and Vomiting (N/V). ondansetron 2023-0 Yes [id number] 4mg Take 1 [facility] 4 mg 3-03 tablet by ity of disintegrat 00:00: mouth [place] ing tablet 00 every 8 Medica l (eight) Branch hours as needed for Nausea and Vomiting (N/V). proMETHazin 2023-0 Yes [id number] 25mg Take 1 [facility] e 25 mg 3-03 tablet by ity of tablet 00:00: mouth [place] 00 every 6 Medical (six) Branch hours as needed for N/V unresponsi ve to Ondansetro n. metoclopram 2023-0 Yes [id number] 10mg Take 1 [facility] HCl 10 3-03 tablet by [facility] of mg tablet 00:00: mouth [place] 00 bedtime as Medical needed for Branch Nausea and Vomiting (N/V). ondansetron 3-0 Yes [id number] 4mg Take 1 [facility] 4 mg 3-03 tablet by ity of disintegrat 00:00: mouth [place] ing tablet 00 every 8 Medica l (eight) Branch hours as needed for Nausea and Vomiting (N/V). proMETHazin 2023-0 Yes [id number] 25mg Take 1 [facility] e 25 mg 3-03 tablet by ity of tablet 00:00: mouth [place] 00 every 6 Medical (six) Branch hours as needed for N/V unresponsi ve to Ondansetro n. metoclopram 2023-0 Yes [id number] 10mg Take 1 [facility] HCl 10 3-03 tablet by [facility] of mg tablet 00:00: mouth [place] 00 bedtime as Medical needed for Branch Nausea and Vomiting (N/V). ondansetron 2023-0 Yes [id number] 4mg Take 1 [facility] 4 mg 3-03 tablet by ity of disintegrat 00:00: mouth [place] ing tablet 00 every 8 Medica l (eight) Branch hours as needed for Nausea and Vomiting (N/V). proMETHazin 2023-0 Yes [id number] 25mg Take 1 [facility] e 25 mg 3-03 tablet by ity of tablet 00:00: mouth [place] 00 every 6 Medical (six) Branch hours as needed for N/V unresponsi ve to Ondansetro n. metoclopram 3-0 Yes [id number] 10mg Take 1 [facility] HCl 10 3-03 tablet by [facility] of mg tablet 00:00: mouth [place] 00 bedtime as Medical needed for Branch Nausea and Vomiting (N/V). ondansetron 2023-0 Yes [id number] 4mg Take 1 [facility] 4 mg 3-03 tablet by ity of disintegrat 00:00: mouth [place] ing tablet 00 every 8 Medica l (eight) Branch hours as needed for Nausea and Vomiting (N/V). proMETHazin 2023-0 Yes [id number] 25mg Take 1 [facility] e 25 mg 3-03 tablet by ity of tablet 00:00: mouth [place] 00 every 6 Medical (six) Branch hours as needed for N/V unresponsi ve to Ondansetro n. metoclopram 2023-0 Yes [id number] 10mg Take 1 [facility] HCl 10 3-03 tablet by [facility] of mg tablet 00:00: mouth [place] 00 bedtime as Medical needed for Branch Nausea and Vomiting (N/V). ondansetron 2023-0 Yes [id number] 4mg Take 1 [facility] 4 mg 3-03 tablet by ity of disintegrat 00:00: mouth [place] ing tablet 00 every 8 Medica l (eight) Branch hours as needed for Nausea and Vomiting (N/V). proMETHazin 3-0 Yes [id number] 25mg Take 1 [facility] e 25 mg 3-03 tablet by ity of tablet 00:00: mouth [place] 00 every 6 Medical (six) Branch hours as needed for N/V unresponsi ve to Ondansetro n. metoclopram 3-0 Yes [id number] 10mg Take 1 [facility] HCl 10 3-03 tablet by [facility] of mg tablet 00:00: mouth [place] 00 bedtime as Medical needed for Branch Nausea and Vomiting (N/V). ondansetron 3-0 Yes [id number] 4mg Take 1 [facility] 4 mg 3-03 tablet by ity of disintegrat 00:00: mouth [place] ing tablet 00 every 8 Medica l (eight) Branch hours as needed for Nausea and Vomiting (N/V). proMETHazin 3-0 Yes [id number] 25mg Take 1 [facility] e 25 mg 3-03 tablet by ity of tablet 00:00: mouth [place] 00 every 6 Medical (six) Branch hours as needed for N/V unresponsi ve to Ondansetro n. metoclopram 3-0 Yes [id number] 10mg Take 1 [facility] HCl 10 3-03 tablet by [facility]y of mg tablet 00:00: mouth at [place] 00 bedtime as Medical needed for Branch Nausea and Vomiting (N/V). ondansetron 2023-0 Yes [id number] 4mg Take 1 [facility] 4 mg 3-03 tablet by ity of disintegrat 00:00: mouth [place] ing tablet 00 every 8 Medica l (eight) Branch hours as needed for Nausea and Vomiting (N/V). proMETHazin 2023-0 Yes [id number] 25mg Take 1 [facility] e 25 mg 3-03 tablet by ity of tablet 00:00: mouth [place] 00 every 6 Medical (six) Branch hours as needed for N/V unresponsi ve to Ondansetro n. metoclopram 2023-0 Yes [id number] 10mg Take 1 [facility] HCl 10 3-03 tablet by [facility]y of mg tablet 00:00: mouth [place] 00 bedtime as Medical needed for Branch Nausea and Vomiting (N/V). ondansetron 2023-0 Yes [id number] 4mg Take 1 [facility] 4 mg 3-03 tablet by ity of disintegrat 00:00: mouth [place] ing tablet 00 every 8 Medica l (eight) Branch hours as needed for Nausea and Vomiting (N/V). proMETHazin 2023-0 Yes [id number] 25mg Take 1 [facility] e 25 mg 3-03 tablet by ity of tablet 00:00: mouth [place] 00 every 6 Medical (six) Branch hours as needed for N/V unresponsi ve to Ondansetro n. metoclopram 2023-0 Yes [id number] 10mg Take 1 [facility] HCl 10 3-03 tablet by [facility] of mg tablet 00:00: mouth [place] 00 bedtime as Medical needed for Branch Nausea and Vomiting (N/V). ondansetron 2023-0 Yes [id number] 4mg Take 1 [facility] 4 mg 3-03 tablet by ity of disintegrat 00:00: mouth [place] ing tablet 00 every 8 Medica l (eight) Branch hours as needed for Nausea and Vomiting (N/V). proMETHazin 2023-0 Yes [id number] 25mg Take 1 [facility] 25 mg 3-03 tablet by ity of tablet 00:00: mouth [place] 00 every 6 Medical (six) Branch hours as needed for N/V unresponsi ve to Ondansetro n. metoclopram 2023-0 Yes [id number] 10mg Take 1 [facility] HCl 10 3-03 tablet by [facility] of mg tablet 00:00: mouth at [place] 00 bedtime as Medical needed for Branch Nausea and Vomiting (N/V). ondansetron 2023-0 Yes [id number] 4mg Take 1 [facility] 4 mg 3-03 tablet by ity of disintegrat 00:00: mouth [place] ing tablet 00 every 8 Medica l (eight) Branch hours as needed for Nausea and Vomiting (N/V). proMETHazin 2023-0 Yes [id number] 25mg Take 1 [facility] e 25 mg 3-03 tablet by ity of tablet 00:00: mouth [place] 00 every 6 Medical (six) Branch hours as needed for N/V unresponsi ve to Ondansetro n. metoclopram 2023-0 Yes [id number] 10mg Take 1 [facility] HCl 10 3-03 tablet by [facility]y of mg tablet 00:00: mouth [place] 00 bedtime as Medical needed for Branch Nausea and Vomiting (N/V). ondansetron 2023-0 Yes [id number] 4mg Take 1 [facility] 4 mg 3-03 tablet by ity of disintegrat 00:00: mouth [place] ing tablet 00 every 8 Medica l (eight) Branch hours as needed for Nausea and Vomiting (N/V). proMETHazin 2023-0 Yes [id number] 25mg Take 1 [facility] e 25 mg 3-03 tablet by ity of tablet 00:00: mouth [place] 00 every 6 Medical (six) Branch hours as needed for N/V unresponsi ve to Ondansetro n. metoclopram 3-0 Yes [id number] 10mg Take 1 [facility] HCl 10 3-03 tablet by [facility]y of mg tablet 00:00: mouth at [place] 00 bedtime as Medical needed for Branch Nausea and Vomiting (N/V). ondansetron 3-0 Yes [id number] 4mg Take 1 [facility] 4 mg 3-03 tablet by ity of disintegrat 00:00: mouth [place] ing tablet 00 every 8 Medica l (eight) Branch hours as needed for Nausea and Vomiting (N/V). proMETHazin 2023-0 Yes [id number] 25mg Take 1 [facility] e 25 mg 3-03 tablet by ity of tablet 00:00: mouth [place] 00 every 6 Medical (six) Branch hours as needed for N/V unresponsi ve to Ondansetro n. metoclopram 2023-0 Yes [id number] 10mg Take 1 [facility] HCl 10 3-03 tablet by [facility]y of mg tablet 00:00: mouth at [place] 00 bedtime as Medical needed for Branch Nausea and Vomiting (N/V). ondansetron 2023-0 Yes [id number] 4mg Take 1 [facility] 4 mg 3-03 tablet by ity of disintegrat 00:00: mouth [place] ing tablet 00 every 8 Medica l (eight) Branch hours as needed for Nausea and Vomiting (N/V). proMETHazin 2023-0 Yes [id number] 25mg Take 1 [facility] e 25 mg 3-03 tablet by ity of tablet 00:00: mouth [place] 00 every 6 Medical (six) Branch hours as needed for N/V unresponsi ve to Ondansetro n. metoclopram 2023-0 Yes [id number] 10mg Take 1 [facility] HCl 10 3-03 tablet by [facility]y of mg tablet 00:00: mouth [place] 00 bedtime as Medical needed for Branch Nausea and Vomiting (N/V). ondansetron 2023-0 Yes [id number] 4mg Take 1 [facility] 4 mg 3-03 tablet by ity of disintegrat 00:00: mouth [place] ing tablet 00 every 8 Medica l (eight) Branch hours as needed for Nausea and Vomiting (N/V). proMETHazin 2023-0 Yes [id number] 25mg Take 1 [facility] e 25 mg 3-03 tablet by ity of tablet 00:00: mouth [place] 00 every 6 Medical (six) Branch hours as needed for N/V unresponsi ve to Ondansetro n. metoclopram 2023-0 Yes [id number] 10mg Take 1 [facility] HCl 10 3-03 tablet by ity of mg tablet 00:00: mouth at [place] 00 bedtime as Medical needed for Branch Nausea and Vomiting (N/V). ondansetron 2023-0 Yes [id number] 4mg Take 1 [facility] 4 mg 3-03 tablet by ity of disintegrat 00:00: mouth [place] ing tablet 00 every 8 Medica l (eight) Branch hours as needed for Nausea and Vomiting (N/V). proMETHazin 2023-0 Yes [id number] 25mg Take 1 [facility] e 25 mg 3-03 tablet by ity of tablet 00:00: mouth [place] 00 every 6 Medical (six) Branch hours as needed for N/V unresponsi ve to Ondansetro n. metoclopram 2023-0 Yes [id number] 10mg Take 1 [facility] HCl 10 3-03 tablet by [facility]y of mg tablet 00:00: mouth [place] 00 bedtime as Medical needed for Branch Nausea and Vomiting (N/V). ondansetron 2023-0 Yes [id number] 4mg Take 1 [facility] 4 mg 3-03 tablet by ity of disintegrat 00:00: mouth [place] ing tablet 00 every 8 Medica l (eight) Branch hours as needed for Nausea and Vomiting (N/V). proMETHazin 3-0 Yes [id number] 25mg Take 1 [facility] e 25 mg 3-03 tablet by ity of tablet 00:00: mouth [place] 00 every 6 Medical (six) Branch hours as needed for N/V unresponsi ve to Ondansetro n. metoclopram 2022-0 Yes [id number] 10mg Take 1 [facility] HCl 10 3-03 tablet by [facility]y of mg tablet 00:00: mouth at [place] 00 bedtime as Medical needed for Branch Nausea and Vomiting (N/V). ondansetron 2022-0 Yes [id number] 4mg Take 1 [facility] 4 mg 3-03 tablet by ity of disintegrat 00:00: mouth [place] ing tablet 00 every 8 Medica l (eight) Branch hours as needed for Nausea and Vomiting (N/V). proMETHazin 2022-0 Yes [id number] 25mg Take 1 [facility] e 25 mg 3-03 tablet by ity of tablet 00:00: mouth [place] 00 every 6 Medical (six) Branch hours as needed for N/V unresponsi ve to Ondansetro n. metoclopram 2022-0 Yes [id number] 10mg Take 1 [facility] HCl 10 3-03 tablet by [facility] of mg tablet 00:00: mouth at [place] 00 bedtime as Medical needed for Branch Nausea and Vomiting (N/V). ondansetron 2022-0 Yes [id number] 4mg Take 1 [facility] 4 mg 3-03 tablet by ity of disintegrat 00:00: mouth [place] ing tablet 00 every 8 Medica l (eight) Branch hours as needed for Nausea and Vomiting (N/V). proMETHazin 3-0 Yes [id number] 25mg Take 1 [facility] e 25 mg 3-03 tablet by ity of tablet 00:00: mouth [place] 00 every 6 Medical (six) Branch hours as needed for N/V unresponsi ve to Ondansetro n. metoclopram 3-0 Yes [id number] 10mg Take 1 [facility] HCl 10 3-03 tablet by [facility]y of mg tablet 00:00: mouth [place] 00 bedtime as Medical needed for Branch Nausea and Vomiting (N/V). ondansetron 2023-0 Yes [id number] 4mg Take 1 [facility] 4 mg 3-03 tablet by ity of disintegrat 00:00: mouth [place] ing tablet 00 every 8 Medica l (eight) Branch hours as needed for Nausea and Vomiting (N/V). proMETHazin 2023-0 Yes [id number] 25mg Take 1 [facility] e 25 mg 3-03 tablet by ity of tablet 00:00: mouth [place] 00 every 6 Medical (six) Branch hours as needed for N/V unresponsi ve to Ondansetro n. metoclopram 2023-0 Yes [id number] 10mg Take 1 [facility] HCl 10 3-03 tablet by [facility]y of mg tablet 00:00: mouth at [place] 00 bedtime as Medical needed for Branch Nausea and Vomiting (N/V). ondansetron 2023-0 Yes [id number] 4mg Take 1 [facility] 4 mg 3-03 tablet by ity of disintegrat 00:00: mouth [place] ing tablet 00 every 8 Medica l (eight) Branch hours as needed for Nausea and Vomiting (N/V). proMETHazin 2023-0 Yes [id number] 25mg Take 1 [facility] e 25 mg 3-03 tablet by ity of tablet 00:00: mouth [place] 00 every 6 Medical (six) Branch hours as needed for N/V unresponsi ve to Ondansetro n. metoclopram 2023-0 Yes [id number] 10mg Take 1 [facility] HCl 10 3-03 tablet by [facility]y of mg tablet 00:00: mouth at [place] 00 bedtime as Medical needed for Branch Nausea and Vomiting (N/V). ondansetron 2023-0 Yes [id number] 4mg Take 1 [facility] 4 mg 3-03 tablet by ity of disintegrat 00:00: mouth [place] ing tablet 00 every 8 Medica l (eight) Branch hours as needed for Nausea and Vomiting (N/V). proMETHazin 2023-0 Yes [id number] 25mg Take 1 [facility] e 25 mg 3-03 tablet by ity of tablet 00:00: mouth [place] 00 every 6 Medical (six) Branch hours as needed for N/V unresponsi ve to Ondansetro n. metoclopram 0 Yes [id number] 10mg Take 1 [facility] HCl 10 3-03 tablet by [facility] of mg tablet 00:00: mouth [place] 00 bedtime as Medical needed for Branch Nausea and Vomiting (N/V). ondansetron 0 Yes [id number] 4mg Take 1 [facility] 4 mg 3-03 tablet by ity of disintegrat 00:00: mouth [place] ing tablet 00 every 8 Medica l (eight) Branch hours as needed for Nausea and Vomiting (N/V). proMETHazin Yes [id number] 25mg Take 1 [facility] e 25 mg 3-03 tablet by ity of tablet 00:00: mouth [place] 00 every 6 Medical (six) Branch hours as needed for N/V unresponsi ve to Ondansetro n. metoclopram Yes [id number] 10mg Take 1 [facility] HCl 10 3-03 tablet by [facility] of mg tablet 00:00: mouth [place] 00 bedtime as Medical needed for Branch Nausea and Vomiting (N/V). lipase-prot 202- No [id number] 1{capsu Take 1 [facility] ease-amylas 3-03 05-16 le} capsule by i ty of e 00:00: 00:00 mouth as [place] 36,000-114, 00 :00 needed for Me dical 000- Nausea and Branch 180,000 Vomiting unit CpDR (N/V). Take 2 capsules by mouth with meals and 1 with each snack. albuterol Yes [id number] 2{puff} Inhale 2 [facility] 90 2-21 Puffs ity of mcg/actuati 00:00: every 6 [place] on inhaler 00 (six) Medical hours as Branch needed for Wheezing or Shortness of Breath. albuterol Yes [id number] 2{puff} Inhale 2 [facility] 90 2-21 Puffs ity of mcg/actuati 00:00: every 6 [place] on inhaler 00 (six) Medical hours as Branch needed for Wheezing or Shortness of Breath. albuterol Yes [id number] 2{puff} Inhale 2 [facility] 90 2-21 Puffs ity of mcg/actuati 00:00: every 6 [place] on inhaler 00 (six) Medical hours as Branch needed for Wheezing or Shortness of Breath. albuterol Yes [id number] 2{puff} Inhale 2 [facility] 90 2-21 Puffs ity of mcg/actuati 00:00: every 6 [place] on inhaler 00 (six) Medical hours as Branch needed for Wheezing or Shortness of Breath. albuterol Yes [id number] 2{puff} Inhale 2 [facility] 90 2-21 Puffs ity of mcg/actuati 00:00: every 6 [place] on inhaler 00 (six) Medical hours as Branch needed for Wheezing or Shortness of Breath. albuterol Yes [id number] 2{puff} Inhale 2 [facility] 90 2-21 Puffs ity of mcg/actuati 00:00: every 6 [place] on inhaler 00 (six) Medical hours as Branch needed for Wheezing or Shortness of Breath. albuterol 3- No [id number] 2{puff} Inhale 2 [facility] 90 2-21 03-08 Puffs ity of mcg/actuati 00:00: 00:00 every 6 [place] on inhaler 00 :00 (six) Medical hours as Branch needed for Wheezing or Shortness of Breath. amoxicillin 2022- No [id number] 1{tbl} Take 1 [facility] -clavulanat 2-21 - tablet by it y of e 00:00: 05:59 mouth in [place] (AUGMENTIN) 00 :00 the Medical 875-125 mg morning Branch per tablet and 1 tablet in the evening. Do all this for 7 days. amoxicillin 2022- No [id number] 1{tbl} Take 1 [facility] -clavulanat 2-21 - tablet by it y of e 00:00: 05:59 mouth in [place] (AUGMENTIN) 00 :00 the Medical 875-125 mg morning Branch per tablet and 1 tablet in the evening. Do all this for 7 days. amoxicillin 2022- No [id number] 1{tbl} Take 1 [facility] -clavulanat 2-21 - tablet by it y of e 00:00: 05:59 mouth in [place] (AUGMENTIN) 00 :00 the Medical 875-125 mg morning Branch per tablet and 1 tablet in the evening. Do all this for 7 days. ketorolac 2022- No 60mg 60 mg, [facility] rs (TORADOL) 09-26 Intramuscu ity of injection 12:45: 00:44 [place], ONCE, [place] 60 mg 00 :00 1 dose, On Medical [place] Branch 09/26/22 at 0645, Routine methocarbam 0 2022- No 1000mg 1,000 mg, [facility] oL 09-26 Oral, ity of (ROBAXIN) 11:45: 11:52 ONCE, 1 [place] tablet 00 :00 dose, On Medical 1,000 mg [place] Branch 09/26/22 at 0545, MEGHA methocarbam 0 Yes [id number] 750mg Take 1 [facility] oL 750 mg -16 tablet by ity o f tablet 00:00: mouth [place] 00 every 6 Medical (six) Branch hours as needed (MUSCLE SPASM). acetaminoph 2022-0 Yes [id number] 1{tbl} Take 1 Un manoj en-codeine 2-16 tablet by ity of (TYLENOL-CO 00:00: mouth [place] DEINE #3) 00 every 4 Medical 300-30 mg (four) Branch tablet hours as needed for Pain (scale 7-10). Indication s: acute pain acetaminoph 2022-0 Yes [id number] 1{tbl} Take 1 Un manoj en-codeine 2-16 tablet by ity of (TYLENOL-CO 00:00: mouth [place] DEINE #3) 00 every 4 Medical 300-30 mg (four) Branch tablet hours as needed for Pain (scale 7-10). Indication s: acute pain acetaminoph 2022-0 Yes [id number] 1{tbl} Take 1 Un manoj en-codeine 2-16 tablet by ity of (TYLENOL-CO 00:00: mouth [place] DEINE #3) 00 every 4 Medical 300-30 mg (four) Branch tablet hours as needed for Pain (scale 7-10). Indication s: acute pain acetaminoph 2022-0 Yes [id number] 1{tbl} Take 1 [...] 7-10). Indication s: acute pain acetaminoph 3-0 3- No [id number] 1{tbl} Take 1 U nivers en-codeine 2-16 03-28 tablet by ity of (TYLENOL-CO 00:00: 00:00 [place] DEINE #3) 00 :00 every 4 Medical 300-30 mg (four) Branch tablet hours as needed for Pain (scale 7-10). Indication s: acute pain acetaminoph 2022-0 2022- No [id number] 1{tbl} Take 1 U nivers en-codeine 2-16 03-28 tablet by ity of (TYLENOL-CO 00:00: 00:00 [place] DEINE #3) 00 :00 every 4 Medical 300-30 mg (four) Branch tablet hours as needed for Pain (scale 7-10). Indication s: acute pain methocarbam 2023-0 3- No [id number] 750mg Take 1 [facility] oL 750 mg 2-16 -21 tablet by ity of tablet 00:00: 00:00 mouth [place] 00 :00 every 6 Medical (six) Branch hours as needed (MUSCLE SPASM). methocarbam 2023-0 3- No [id number] 750mg Take 1 [facility] oL 750 mg 2-16 -21 tablet by ity of tablet 00:00: [...] 2-14 ity of tablet 00:00: [place] 00 [facility] mirtazapine 2023-0 Yes daily. Univ ers 15 mg 2-14 ity of tablet 00:00: [place] 00 [facility] mirtazapine 2023-0 Yes daily. Univ ers 15 mg 2-14 ity of tablet 00:00: 00 [facility] mirtazapine 2023-0 Yes daily. Univ ers 15 mg 2-14 ity of tablet 00:00: [place] 00 [facility] mirtazapine 2023-0 Yes daily. Univ ers 15 mg 2-14 ity of tablet 00:00: [place] 00 [facility] mirtazapine 2022-0 2023- No daily. Uni vers 15 mg 2-14 03-24 ity of tablet 00:00: 00:00 [place] 00 :00 [facility] mirtazapine 3-0 2023- No daily. Uni vers 15 mg 2-14 03-24 ity of tablet 00:00: 00:00 [place] 00 :00 [facility] mirtazapine 2022-0 2023- No daily. Uni vers 15 mg 2-14 03-24 ity of tablet 00:00: 00:00 [place] 00 :00 [facility] haloperidol 2022-0 2022- No 2.5mg 2.5 mg, U nivers lactate 09-09 Intravenou ity o f (HALDOL) 16:45: 17:16 s, ONCE, 1 [place] 00 :00 dose, On Medica l 2.5 mg Mon [place] 09/09/22 at 1045, STAT metoclopram No 10mg 10 mg, Uni vers teresa HCl 09-09 Slow IV ity of (REGLAN) 14:45: 14:57 Push, [place] injection 00 :00 ONCE, 1 Medical 10 mg dose, On Branch Fri09/09/22 at 0845, MEG[place] NaCl 0.9% 2022- No 1000mL at 999 Uni vers (NS) bolus 09-0930 mL/hr, ity of infusion 14:15: 15:00 1,000 mL, [place] 1,000 mL 00 :00 IV Medical Infusion, Branch ONCE, 1 dose, On Fri09/09/22 at 0815, [place] famotidine No 20mg 20 mg, Univ ers (PEPCID [...] mL 09/09/22 at IV 0730, [place] piggyback [facility] Yes [id number] 1{capsu Take 1 U nivers Blue-Sod 1-25 le} capsule by ity o f Phos-PhSal- 00:00: mouth 2 [place] 00 (two) Medical (URIBEL) times Branch 118-10-40.8 daily as -36 mg needed for capsule Other (bladder spasms). [facility] Yes [id number] 1{capsu Take 1 U nivers Blue-Sod 1-25 le} capsule by ity o f Phos-PhSal- 00:00: mouth 2 [place] 00 (two) Medical (URIBEL) times Branch 118-10-40.8 daily as -36 mg needed for capsule Other (bladder spasms). [facility] Yes [id number] 1{capsu Take 1 U nivers Blue-Sod 1-25 le} capsule by ity o f Phos-PhSal- 00:00: mouth 2 [place] 00 (two) Medical (URIBEL) times Branch 118-10-40.8 daily as -36 mg needed for capsule Other (bladder spasms). [facility] No [id number] 1{capsu Take 1 [facility] Blue-Sod 1-25 02-21 le} capsule by ity of Phos-PhSal- 00:00: 00:00 mouth 2 [place] Hyo 00 :00 (two) Medical (URIBEL) times Branch 118-10-40.8 daily as -36 mg needed for capsule Other (bladder spasms). [facility] 2022- No [id number] 1{capsu Take 1 [facility] Blue-Sod 1-25 02-21 le} capsule by ity of Phos-PhSal- 00:00: 00:00 mouth 2 [place] Hyo 00 :00 (two) Medical (URIBEL) times Branch 118-10-40.8 daily as -36 mg needed for capsule Other (bladder spasms). lipase-prot 2022- No 1{capsu Take 1 Univers [...] and 1 with each snack. lipase-prot Yes [id number] 1{capsu Take 1 [facility] ease-amylas 1-19 le} capsule by it y of e 00:00: mouth as [place] 36,000-114, 00 needed for Me dical 000- Nausea and Branch 180,000 Vomiting unit CpDR (N/V). Take 2 capsules by mouth with meals and 1 with each snack. cetirizine Yes [id number] 10mg Take 1 U nivers (ZYRTEC) 10 1-19 tablet by ity of mg tablet 00:00: [place] 00 the Medical morning. Branch proMETHazin Yes [id number] 25mg Take 1 Univers e 25 mg 1-19 tablet by ity of tablet 00:00: mouth [place] 00 every 6 Medical (six) Branch hours as needed for N/V unresponsi ve to Ondansetro n. ondansetron Yes [id number] 4mg Take 1 [facility] 4 mg 1-19 tablet by ity of disintegrat 00:00: mouth [place] ing tablet 00 every 8 Medica l (eight) Branch hours as needed for Nausea and Vomiting (N/V). lipase-prot 2022-0 Yes [id number] 1{capsu Take 1 [facility] ease-amylas 1-19 le} capsule by it y of e 00:00: mouth as [place] 36,000-114, 00 needed for Me dical 000- Nausea and Branch 180,000 Vomiting unit CpDR (N/V). Take 2 capsules by mouth with meals and 1 with each snack. cetirizine 2022-0 Yes [id number] 10mg Take 1 U nivers (ZYRTEC) 10 1-19 tablet by ity of mg tablet 00:00: [place] 00 the Medical morning. Branch proMETHazin 0 Yes [id number] 25mg Take 1 Univers e 25 mg 1-19 tablet by ity of tablet 00:00: mouth [place] 00 every 6 Medical (six) Branch hours as needed for N/V unresponsi ve to Ondansetro n. ondansetron 2022-0 Yes [id number] 4mg Take 1 [facility] 4 mg 1-19 tablet by ity of disintegrat 00:00: mouth [place] ing tablet 00 every 8 Medica l (eight) Branch hours as needed for Nausea and Vomiting (N/V). lipase-prot 2022-0 Yes [id number] 1{capsu Take 1 [facility] ease-amylas 1-19 le} capsule by it y of e 00:00: mouth as [place] 36,000-114, 00 needed for Me dical 000- Nausea and Branch 180,000 Vomiting unit CpDR (N/V). Take 2 capsules by mouth with meals and 1 with each snack. cetirizine 2022-0 Yes [id number] 10mg Take 1 U nivers (ZYRTEC) 10 1-19 tablet by ity of mg tablet 00:00: [place] 00 the Medical morning. Branch proMETHazin 2022-0 Yes [id number] 25mg Take 1 Univers e 25 mg 1-19 tablet by ity of tablet 00:00: mouth [place] 00 every 6 Medical (six) Branch hours as needed for N/V unresponsi ve to Ondansetro n. ondansetron 2022-0 Yes [id number] 4mg Take 1 [facility] 4 mg 1-19 tablet by ity of disintegrat 00:00: mouth [place] ing tablet 00 every 8 Medica l (eight) Branch hours as needed for Nausea and Vomiting (N/V). lipase-prot 2022-0 Yes [id number] 1{capsu Take 1 [facility] ease-amylas 1-19 le} capsule by it y of e 00:00: mouth as [place] 36,000-114, 00 needed for Me dical 000- Nausea and Branch 180,000 Vomiting unit CpDR (N/V). Take 2 capsules by mouth with meals and 1 with each snack. cetirizine Yes [id number] 10mg Take 1 U nivers (ZYRTEC) 10 1-19 tablet by ity of mg tablet 00:00: mouth [place] 00 the Medical morning. Branch proMETHazin Yes [id number] 25mg Take 1 Univers e 25 mg 1-19 tablet by ity of tablet 00:00: mouth [place] 00 every 6 Medical (six) Branch hours as needed for N/V unresponsi ve to Ondansetro n. ondansetron Yes [id number] 4mg Take 1 Univers 4 mg 1-19 tablet by ity of disintegrat 00:00: mouth [place] ing tablet 00 every 8 Medica l (eight) Branch hours as needed for Nausea and Vomiting (N/V). lipase-prot 2022-0 Yes [id number] 1{capsu Take 1 Univers ease-amylas 1-19 le} capsule by it y of e 00:00: mouth as [place] 36,000-114, 00 needed for Me dical 000- Nausea and Branch 180,000 Vomiting unit CpDR (N/V). Take 2 capsules by mouth with meals and 1 with each snack. cetirizine Yes [id number] 10mg Take 1 U nivers (ZYRTEC) 10 1-19 tablet by ity of mg tablet 00:00: mouth [place] 00 the Medical morning. Branch proMETHazin 0 Yes [id number] 25mg Take 1 Univers e 25 mg 1-19 tablet by ity of tablet 00:00: mouth [place] 00 every 6 Medical (six) Branch hours as needed for N/V unresponsi ve to Ondansetro n. ondansetron Yes [id number] 4mg Take 1 [facility] 4 mg 1-19 tablet by ity of disintegrat 00:00: mouth [place] ing tablet 00 every 8 Medica l (eight) Branch hours as needed for Nausea and Vomiting (N/V). lipase-prot 2022-0 Yes [id number] 1{capsu Take 1 [facility] ease-amylas 1-19 le} capsule by it y of e 00:00: mouth as [place] 36,000-114, 00 needed for Me dical 000- Nausea and Branch 180,000 Vomiting unit CpDR (N/V). Take 2 capsules by mouth with meals and 1 with each snack. cetirizine Yes [id number] 10mg Take 1 U nivers (ZYRTEC) 10 1-19 tablet by ity of mg tablet 00:00: [place] 00 the Medical morning. Branch proMETHazin Yes [id number] 25mg Take 1 Univers e 25 mg 1-19 tablet by ity of tablet 00:00: mouth [place] 00 every 6 Medical (six) Branch hours as needed for N/V unresponsi ve to Ondansetro n. ondansetron Yes [id number] 4mg Take 1 Univers 4 mg 1-19 tablet by ity of disintegrat 00:00: mouth [place] ing tablet 00 every 8 Medica l (eight) Branch hours as needed for Nausea and Vomiting (N/V). lipase-prot 0 Yes [id number] 1{capsu Take 1 [facility] ease-amylas 1-19 le} capsule by it y of e 00:00: mouth as [place] 36,000-114, 00 needed for Me dical 000- Nausea and Branch 180,000 Vomiting unit CpDR (N/V). Take 2 capsules by mouth with meals and 1 with each snack. cetirizine Yes [id number] 10mg Take 1 U nivers (ZYRTEC) 10 1-19 tablet by ity of mg tablet 00:00: mouth [place] 00 the Medical morning. Branch proMETHazin 0 Yes [id number] 25mg Take 1 Univers e 25 mg 1-19 tablet by ity of tablet 00:00: mouth [place] 00 every 6 Medical (six) Branch hours as needed for N/V unresponsi ve to Ondansetro n. ondansetron 0 Yes [id number] 4mg Take 1 Univers 4 mg 1-19 tablet by ity of disintegrat 00:00: mouth [place] ing tablet 00 every 8 Medica l (eight) Branch hours as needed for Nausea and Vomiting (N/V). lipase-prot 2022-0 Yes [id number] 1{capsu Take 1 [facility] ease-amylas 1-19 le} capsule by it y of e 00:00: mouth as [place] 36,000-114, 00 needed for Or dical 000- Nausea and Branch 180,000 Vomiting unit CpDR (N/V). Take 2 capsules by mouth with meals and 1 with each snack. cetirizine 0 Yes [id number] 10mg Take 1 U nivers (ZYRTEC) 10 1-19 tablet by ity of mg tablet 00:00: mouth [place] 00 the Medical morning. Branch proMETHazin 0 Yes [id number] 25mg Take 1 Univers e 25 mg 1-19 tablet by ity of tablet 00:00: mouth [place] 00 every 6 Medical (six) Branch hours as needed for N/V unresponsi ve to Ondansetro n. ondansetron Yes [id number] 4mg Take 1 Univers 4 mg 1-19 tablet by ity of disintegrat 00:00: mouth [place] ing tablet 00 every 8 Medica l (eight) Branch hours as needed for Nausea and Vomiting (N/V). cetirizine 2022-0 Yes [id number] 10mg Take 1 U nivers (ZYRTEC) 10 1-19 tablet by ity of mg tablet 00:00: mouth [place] 00 the Medical morning. Branch cetirizine 0 Yes [id number] 10mg Take 1 U nivers (ZYRTEC) 10 1-19 tablet by ity of mg tablet 00:00: mouth [place] 00 the Medical morning. Branch cetirizine 0 Yes [id number] 10mg Take 1 U nivers (ZYRTEC) 10 1-19 tablet by ity of mg tablet 00:00: mouth [place] 00 the Medical morning. Branch cetirizine 2022-0 Yes [id number] 10mg Take 1 U nivers (ZYRTEC) 10 1-19 tablet by ity of mg tablet 00:00: mouth [place] 00 the Medical morning. Branch cetirizine 2022-0 Yes [id number] 10mg Take 1 U nivers (ZYRTEC) 10 1-19 tablet by ity of mg tablet 00:00: mouth [place] 00 the Medical morning. Branch cetirizine 2022-0 Yes [id number] 10mg Take 1 U nivers (ZYRTEC) 10 1-19 tablet by ity of mg tablet 00:00: mouth [place] 00 the Medical morning. Branch cetirizine 2022-0 Yes [id number] 10mg Take 1 U nivers (ZYRTEC) 10 1-19 tablet by ity of mg tablet 00:00: mouth [place] 00 the Medical morning. Branch cetirizine 2022-0 Yes [id number] 10mg Take 1 U nivers (ZYRTEC) 10 1-19 tablet by ity of mg tablet 00:00: mouth [place] 00 the Medical morning. Branch cetirizine 2022-0 Yes [id number] 10mg Take 1 U nivers (ZYRTEC) 10 1-19 tablet by ity of mg tablet 00:00: mouth [place] 00 the Medical morning. Branch cetirizine 2022-0 Yes [id number] 10mg Take 1 U nivers (ZYRTEC) 10 1-19 tablet by ity of mg tablet 00:00: mouth [place] 00 the Medical morning. Branch cetirizine 2022-0 Yes [id number] 10mg Take 1 U nivers (ZYRTEC) 10 1-19 tablet by ity of mg tablet 00:00: mouth [place] 00 the Medical morning. Branch cetirizine 2022-0 Yes [id number] 10mg Take 1 U nivers (ZYRTEC) 10 1-19 tablet by ity of mg tablet 00:00: mouth [place] 00 the Medical morning. Branch cetirizine 2022-0 Yes [id number] 10mg Take 1 U nivers (ZYRTEC) 10 1-19 tablet by ity of mg tablet 00:00: mouth [place] 00 the Medical morning. Branch cetirizine 2022-0 Yes [id number] 10mg Take 1 U nivers (ZYRTEC) 10 1-19 tablet by ity of mg tablet 00:00: mouth [place] 00 the Medical morning. Branch cetirizine 2022-0 Yes [id number] 10mg Take 1 U nivers (ZYRTEC) 10 1-19 tablet by ity of mg tablet 00:00: mouth [place] 00 the Medical morning. Branch cetirizine 2022-0 Yes [id number] 10mg Take 1 U nivers (ZYRTEC) 10 1-19 tablet by ity of mg tablet 00:00: mouth [place] 00 the Medical morning. Branch cetirizine 2022-0 Yes [id number] 10mg Take 1 U nivers (ZYRTEC) 10 1-19 tablet by ity of mg tablet 00:00: mouth [place] 00 the Medical morning. Branch cetirizine 2022-0 Yes [id number] 10mg Take 1 U nivers (ZYRTEC) 10 1-19 tablet by ity of mg tablet 00:00: mouth [place] 00 the Medical morning. Branch cetirizine 2022-0 Yes [id number] 10mg Take 1 U nivers (ZYRTEC) 10 1-19 tablet by ity of mg tablet 00:00: mouth [place] 00 the Medical morning. Branch cetirizine 2022-0 Yes [id number] 10mg Take 1 U nivers (ZYRTEC) 10 1-19 tablet by ity of mg tablet 00:00: mouth [place] 00 the Medical morning. Branch cetirizine 2022-0 Yes [id number] 10mg Take 1 U nivers (ZYRTEC) 10 1-19 tablet by ity of mg tablet 00:00: mouth [place] 00 the Medical morning. Branch cetirizine 2022-0 Yes [id number] 10mg Take 1 U nivers (ZYRTEC) 10 1-19 tablet by ity of mg tablet 00:00: mouth [place] 00 the Medical morning. Branch cetirizine 2022-0 Yes [id number] 10mg Take 1 U nivers (ZYRTEC) 10 1-19 tablet by ity of mg tablet 00:00: mouth [place] 00 the Medical morning. Branch cetirizine 2022-0 Yes [id number] 10mg Take 1 U nivers (ZYRTEC) 10 1-19 tablet by ity of mg tablet 00:00: mouth [place] 00 the Medical morning. Branch cetirizine 2022-0 Yes [id number] 10mg Take 1 U nivers (ZYRTEC) 10 1-19 tablet by ity of mg tablet 00:00: mouth [place] 00 the Medical morning. Branch cetirizine 2022-0 Yes [id number] 10mg Take 1 U nivers (ZYRTEC) 10 1-19 tablet by ity of mg tablet 00:00: mouth [place] 00 the Medical morning. Branch cetirizine 2022-0 Yes [id number] 10mg Take 1 U nivers (ZYRTEC) 10 1-19 tablet by ity of mg tablet 00:00: mouth [place] 00 the Medical morning. Branch cetirizine 2022-0 Yes [id number] 10mg Take 1 U nivers (ZYRTEC) 10 1-19 tablet by ity of mg tablet 00:00: mouth [place] 00 the Medical morning. Branch cetirizine 2022-0 Yes [id number] 10mg Take 1 U nivers (ZYRTEC) 10 1-19 tablet by ity of mg tablet 00:00: mouth [place] 00 the Medical morning. Branch cetirizine 2022-0 Yes [id number] 10mg Take 1 U nivers (ZYRTEC) 10 1-19 tablet by ity of mg tablet 00:00: mouth [place] 00 the Medical morning. Branch cetirizine 2022-0 Yes [id number] 10mg Take 1 U nivers (ZYRTEC) 10 1-19 tablet by ity of mg tablet 00:00: mouth [place] 00 the Medical morning. Branch cetirizine 2022-0 Yes [id number] 10mg Take 1 U nivers (ZYRTEC) 10 1-19 tablet by ity of mg tablet 00:00: mouth [place] 00 the Medical morning. Branch cetirizine 3-0 Yes [id number] 10mg Take 1 U nivers (ZYRTEC) 10 1-19 tablet by ity of mg tablet 00:00: mouth [place] 00 the Medical morning. Branch cetirizine 2022-0 Yes [id number] 10mg Take 1 U nivers (ZYRTEC) 10 1-19 tablet by ity of mg tablet 00:00: mouth [place] 00 the Medical morning. Branch cetirizine 0 Yes [id number] 10mg Take 1 U nivers (ZYRTEC) 10 1-19 tablet by ity of mg tablet 00:00: mouth [place] 00 the Medical morning. Branch cetirizine 0 Yes [id number] 10mg Take 1 U nivers (ZYRTEC) 10 1-19 tablet by ity of mg tablet 00:00: mouth [place] 00 the Medical morning. Branch cetirizine 0 Yes [id number] 10mg Take 1 U nivers (ZYRTEC) 10 1-19 tablet by ity of mg tablet 00:00: mouth [place] 00 the Medical morning. [place] cetirizine 0 Yes [id number] 10mg Take 1 U nivers (ZYRTEC) 10 -19 tablet by ity of mg tablet 00:00: mouth [place] 00 the Medical morning. [place] cetirizine 2022- No [id number] 10mg Take 1 Univers (ZYRTEC) 10 08-29 tablet by it y of mg tablet 00:00: 00:00 mouth in [place] 00 :00 the Medical morning. [place] cetirizine 2022- No [id number] 10mg Take 1 Univers (ZYRTEC) 10 08-29 tablet by it y of mg tablet 00:00: 00:00 mouth in [place] 00 :00 the Medical morning. [place] lipase-prot 2022- No [id number] 1{capsu Take 1 [facility] ease-amylas 08-29 le} capsule by i ty of e 00:00: 00:00 mouth as [place] 36,000-114, 00 :00 needed for Or dical 000- Nausea and Branch 180,000 Vomiting unit CpDR (N/V). Take 2 capsules by mouth with meals and 1 with each snack. proMETHazin 2022- No [id number] 25mg Take 1 Univers e 25 mg 08-29 tablet by ity of tablet 00:00: 00:00 mouth [place] 00 :00 every 6 Medical (six) Branch hours as needed for N/V unresponsi ve to Ondansetro n. ondansetron 2022- No [id number] 4mg Take 1 Univers 4 mg 08-29 tablet by ity of disintegrat 00:00: 00:00 mouth [place] tablet 00 :00 every 8 Medica l (eight) Branch hours as needed for Nausea and Vomiting (N/V). lipase-prot 2022- No [id number] 1{capsu Take 1 [facility] ease-amylas 08-29 le} capsule by i ty of e 00:00: 00:00 mouth as [place] 36,000-114, 00 :00 needed for Or dical 000- Nausea and Branch 180,000 Vomiting unit CpDR (N/V). Take 2 capsules by mouth with meals and 1 with each snack. proMETHazin 2022- No [id number] 25mg Take 1 Univers e 25 mg 08-29 tablet by ity of tablet 00:00: 00:00 mouth [place] 00 :00 every 6 Medical (six) Branch hours as needed for N/V unresponsi ve to Ondansetro n. ondansetron 2022- No [id number] 4mg Take 1 [facility] 4 mg 08-29 tablet by ity of disintegrat 00:00: 00:00 mouth [place] tablet 00 :00 every 8 Medica l (eight) Branch hours as needed for Nausea and Vomiting (N/V). furosemide Yes [id number] 20mg Take 1 Univers (LASIX) 20 1-11 tablet by ity of mg tablet 00:00: mouth [place] 00 the Medical morning. Branch furosemide Yes [id number] 20mg Take 1 [facility] (LASIX) 20 1-11 tablet by ity of mg tablet 00:00: mouth [place] 00 the Medical morning. Branch furosemide Yes [id number] 20mg Take 1 [facility] (LASIX) 20 1-11 tablet by ity of mg tablet 00:00: mouth [place] 00 the Medical morning. Branch furosemide Yes [id number] 20mg Take 1 [facility] (LASIX) 20 1-11 tablet by ity of mg tablet 00:00: mouth [place] 00 the Medical morning. Branch furosemide 0 Yes [id number] 20mg Take 1 Univers (LASIX) 20 1-11 tablet by ity of mg tablet 00:00: mouth [place] 00 the Medical morning. Branch furosemide 0 Yes [id number] 20mg Take 1 [facility] (LASIX) 20 1-11 tablet by ity of mg tablet 00:00: mouth [place] 00 the Medical morning. Branch furosemide 0 Yes [id number] 20mg Take 1 Univers (LASIX) 20 1-11 tablet by ity of mg tablet 00:00: mouth [place] 00 the Medical morning. Branch furosemide 0 Yes [id number] 20mg Take 1 [facility] (LASIX) 20 1-11 tablet by ity of mg tablet 00:00: mouth [place] 00 the Medical morning. Branch furosemide 2022- No [id number] 20mg Take 1 Univers (LASIX) 20 08-21-21 tablet by ity of mg tablet 00:00: 00:00 mouth in [place] 00 :00 the Medical morning. Branch furosemide 2022- No [id number] 20mg Take 1 Univers (LASIX) 20 08-2121 tablet by ity of mg tablet 00:00: 00:00 mouth in [place] 00 :00 the Medical morning. Branch ondansetron 2022- No 4mg 4 mg, Slow Univers (ZOFRAN 08-21 IV Push, ity of (PF)) 00:00: 01:20 ONCE, 1 [place] injection 4 00 :00 dose, On Medi darren mg [facility] 08/20/22 at 1800, MEG[place] ketorolac 2022- No 30mg 30 mg, Unive rs (TORADOL) 08-21 Slow IV ity of injection 00:00: 01:22 Push, [place] 30 mg 00 :00 ONCE, 1 Medical dose, On Branch 08/20/22 at 1800, MEGHA NaCl 0.9% 2022- No 1000mL at 999 Uni vers (NS) bolus 1-11 01-11 mL/hr, ity of infusion 00:00: 02:49 1,000 mL, [place] 1,000 mL 00 :00 IV Medical Infusion, Branch ONCE, 1 dose, On Fri08/20/22 at 1800, STAT ciprofloxac 3-0 Yes [id number] 500mg Take 1 Univers in HCl 500 [...] 10 doses. Indication s: acute pain ciprofloxac 3-0 Yes [id number] 500mg Take 1 Univers in HCl 500 [...] 10 doses. Indication s: acute pain ciprofloxac 3-0 Yes [id number] 500mg Take 1 [facility] in HCl 500 1-10 tablet by ity of mg tablet 00:00: mouth [place] 00 the Medical morning Branch and 1 tablet in the evening. acetaminoph 3-0 Yes [id number] 1{tbl} Take 1 Un [place] en-codeine 1-10 tablet by ity of (TYLENOL-CO 00:00: mouth [place] DEINE #3) 00 every 6 Medical 300-30 mg (six) Branch tablet hours as needed for Pain (scale 4-6) for up to 10 doses. Indication s: acute pain ciprofloxac 2023-0 Yes [id number] 500mg Take 1 Univers in HCl 500 [...] Indication s: acute pain ciprofloxac 2023-0 Yes [id number] 500mg Take 1 [facility] in HCl 500 [...] Indication s: acute pain ciprofloxac 2023-0 Yes [id number] 500mg Take 1 [facility] in HCl 500 1-10 tablet by ity of mg tablet 00:00: mouth [place] 00 the Medical morning Branch and 1 tablet in the evening. ondansetron 2023-0 Yes [id number] 4mg Take 1 Univers 4 mg 1-10 [...] Indication s: acute pain ciprofloxac 2023-0 Yes [id number] 500mg Take 1 [facility] in HCl 500 1-10 tablet by ity of mg tablet 00:00: mouth [place] 00 the Medical morning Branch and 1 tablet in the evening. ondansetron 2023-0 Yes [id number] 4mg Take 1 Univers 4 mg 1-10 [...] Indication s: acute pain ciprofloxac 2023-0 Yes [id number] 500mg Take 1 [facility] in HCl 500 1-10 tablet by ity of mg tablet 00:00: mouth [place] 00 the Medical morning Branch and 1 tablet in the evening. ondansetron 2023-0 Yes [id number] 4mg Take 1 [facility] 4 mg 1-10 [...] Indication s: acute pain ciprofloxac 2023-0 Yes [id number] 500mg Take 1 [facility] in HCl 500 1-10 tablet by ity of mg tablet 00:00: mouth [place] 00 the Medical morning Branch and 1 tablet in the evening. ondansetron 2023-0 Yes [id number] 4mg Take 1 Univers 4 mg 1-10 [...] 10 doses. Indication s: acute pain ciprofloxac 3-0 Yes [id number] 500mg Take 1 [facility] in HCl 500 1-10 tablet by ity of mg tablet 00:00: mouth [place] 00 the Medical morning Branch and 1 tablet in the evening. ondansetron 3-0 Yes [id number] 4mg Take 1 [facility] 4 mg 1-10 tablet by ity of disintegrat 00:00: mouth [place] ing tablet 00 every 8 Medica l (eight) Branch hours as needed for Nausea and Vomiting (N/V) for up to 10 doses. acetaminoph 2022- Yes [id number] 1{tbl} Take 1 Un [place] en-codeine 1-10 tablet by ity of (TYLENOL-CO 00:00: mouth [place] DEINE #3) 00 every 6 Medical 300-30 mg (six) Branch tablet hours as needed for Pain (scale 4-6) for up to 10 doses. Indication s: acute pain ciprofloxac 2022-0 2022- No [id number] 500mg Take 1 [facility] in HCl 500 -05 12-21 tablet by ity of mg tablet 00:00: 00:00 mouth in [place] 00 :00 the Medical morning Branch and 1 tablet in the evening. acetaminoph 2022- No [id number] 1{tbl} Take 1 U nivers en-codeine 1-05 12- tablet by ity of (TYLENOL-CO 00:00: 00:00 [place] DEINE #3) 00 :00 every 6 Medical 300-30 mg (six) Branch tablet hours as needed for Pain (scale 4-6) for up to 10 doses. Indication s: acute pain ciprofloxac 2022-0 2022- No [id number] 500mg Take 1 [facility] in HCl 500 1-10 -21 tablet by ity of mg tablet 00:00: 00:00 mouth in [place] 00 :00 the Medical morning Branch and 1 tablet in the evening. acetaminoph 2022- No [id number] 1{tbl} Take 1 U nivers en-codeine 1-10 - tablet by ity of (TYLENOL-CO 00:00: 00:00 [place] DEINE #3) 00 :00 every 6 Medical 300-30 mg (six) Branch tablet hours as needed for Pain (scale 4-6) for up to 10 doses. Indication s: acute pain ondansetron 3-0 3- No [id number] 4mg Take 1 [facility] 4 mg -10 - tablet by ity of disintegrat 00:00: 00:00 [place] tablet 00 :00 every 8 Medica l (eight) Branch hours as needed for Nausea and Vomiting (N/V) for up to 10 doses. ondansetron 3-0 3- No [id number] 4mg Take 1 [facility] 4 mg -10 08-29 tablet by ity of disintegrat 00:00: 00:00 mouth [place] tablet 00 :00 every 8 Medica l (eight) Branch hours as needed for Nausea and Vomiting (N/V) for up to 10 doses. methocarbam 2023-0 Yes [id number] 500mg Take 1 [facility] oL 500 mg 1-09 4 tablet by ity o f tablet 00:00: mouth (four) Medical times Branch daily. methocarbam 2023-0 Yes [id number] 500mg Take 1 [facility] oL 500 mg 1-09 4 tablet by ity o f tablet 00:00: mouth (four) Medical times Branch daily. methocarbam 2023-0 Yes [id number] 500mg Take 1 [facility] oL 500 mg 1-09 4 tablet by ity o f tablet 00:00: mouth (four) Medical times Branch daily. methocarbam 2023-0 Yes [id number] 500mg Take 1 [facility] oL 500 mg 1-09 4 tablet by ity o f tablet 00:00: mouth (four) Medical times Branch daily. methocarbam 2023-0 Yes [id number] 500mg Take 1 [facility] oL 500 mg 1-09 4 tablet by ity o f tablet 00:00: mouth (four) Medical times Branch daily. methocarbam 2023-0 Yes [id number] 500mg Take 1 [facility] oL 500 mg 1-09 4 tablet by ity o f tablet 00:00: mouth (four) Medical times Branch daily. methocarbam 2023-0 Yes [id number] 500mg Take 1 [facility] oL 500 mg 08-19 4 tablet by ity o f tablet 00:00: mouth 4 [place] 00 (four) Medical times Branch daily. methocarbam 2023-0 Yes [id number] 500mg Take 1 [facility] oL 500 mg 08-19 4 tablet by ity o f tablet 00:00: mouth 4 [place] 00 (four) Medical times Branch daily. methocarbam 2023-0 Yes [id number] 500mg Take 1 [facility] oL 500 mg 08-19 4 tablet by ity o f tablet 00:00: mouth 4 [place] 00 (four) Medical times Branch daily. methocarbam 3-0 Yes [id number] 500mg Take 1 [facility] oL 500 mg 08-19 4 tablet by ity o f tablet 00:00: mouth 4 [place] 00 (four) Medical times Branch daily. methocarbam 3-0 Yes [id number] 500mg Take 1 [facility] oL 500 mg 08-19 4 tablet by ity o f tablet 00:00: mouth 4 [place] 00 (four) Medical times Branch daily. methocarbam 3-0 2023- No [id number] 500mg Take 1 [facility] oL 500 mg 08-19 4 tablet by ity of tablet 00:00: 00:00 mouth 4 [place] 00 :00 (four) Medical times Branch daily. methocarbam 3-0 2023- No [id number] 500mg Take 1 [facility] oL 500 mg 08-19 4 tablet by ity of tablet 00:00: 00:00 mouth 4 [place] 00 :00 (four) Medical times Branch daily. amoxicillin 2022-2022- No [id number] 1{tbl} Take 1 [facility] -clavulanat 08-19 tablet by it y of e 00:00: 05:59 mouth in [place] (AUGMENTIN) 00 :00 the Medical 875-125 mg morning Branch per tablet and 1 tablet in the evening. Do all this for 7 days. amoxicillin 2022-0 2022- No [id number] 1{tbl} Take 1 [facility] -clavulanat 08-19 tablet by it y of e 00:00: 05:59 mouth in [place] (AUGMENTIN) 00 :00 the Medical 875-125 mg morning Branch per tablet and 1 tablet in the evening. Do all this for 7 days. amoxicillin 2022- No [id number] 1{tbl} Take 1 [facility] -clavulanat 08-19 tablet by it y of e 00:00: 05:59 mouth in [place] (AUGMENTIN) 00 :00 the Medical 875-125 mg morning Branch per tablet and 1 tablet in the evening. Do all this for 7 days. amoxicillin 2022-2022- No [id number] 1{tbl} Take 1 [facility] -clavulanat 08-19 tablet by it y of e 00:00: 05:59 mouth in [place] (AUGMENTIN) 00 :00 the Medical 875-125 mg morning Branch per tablet and 1 tablet in the evening. Do all this for 7 days. amoxicillin 2022-2022- No [id number] 1{tbl} Take 1 [facility] -clavulanat 08-19 tablet by it y of e 00:00: 05:59 mouth in [place] (AUGMENTIN) 00 :00 the Medical 875-125 mg morning Branch per tablet and 1 tablet in the evening. Do all this for 7 days. amoxicillin 2022- No [id number] 1{tbl} Take 1 [facility] -clavulanat 08-19 tablet by it y of e 00:00: 05:59 mouth in [place] (AUGMENTIN) 00 :00 the Medical 875-125 mg morning Branch per tablet and 1 tablet in the evening. Do all this for 7 days. hydrocortis 2021-08 Yes [id number] Apply to [facility] one 2.5 % 2-27 area(s) 2 ity o f cream 00:00: (two) [place] 00 times Medical daily. Branch hydrocortis 2021-08 Yes [id number] Apply to [facility] one 2.5 % 2-27 area(s) 2 ity o f cream 00:00: (two) [place] 00 times Medical daily. Branch hydrocortis 2021-08 Yes [id number] Apply to [facility] one 2.5 % 2-27 area(s) 2 ity o f cream 00:00: (two) [place] 00 times Medical daily. Branch hydrocortis 2021-08 Yes [id number] Apply to [facility] one 2.5 % 2-27 area(s) 2 ity o f cream 00:00: (two) [place] 00 times Medical daily. Branch hydrocortis 2021-08 Yes [id number] Apply to [facility] one 2.5 % 2-27 area(s) 2 ity o f cream 00:00: (two) [place] 00 times Medical daily. Branch hydrocortis 2021-08 Yes [id number] Apply to [facility] one 2.5 % 2-27 area(s) 2 ity o f cream 00:00: (two) [place] 00 times Medical daily. Branch hydrocortis 2021-08 Yes [id number] Apply to [facility] one 2.5 % 2-27 area(s) 2 ity o f cream 00:00: (two) [place] 00 times Medical daily. Branch hydrocortis 2021-08 Yes [id number] Apply to [facility] one 2.5 % 2-27 area(s) 2 ity o f cream 00:00: (two) [place] 00 times Medical daily. Branch hydrocortis 2021-08 Yes [id number] Apply to [facility] one 2.5 % 2-27 area(s) 2 ity o f cream 00:00: (two) [place] 00 times Medical daily. Branch hydrocortis 2021-08 Yes [id number] Apply to [facility] one 2.5 % 2-27 area(s) 2 ity o f cream 00:00: (two) [place] 00 times Medical daily. Branch hydrocortis 2021-08 Yes [id number] Apply to [facility] one 2.5 % 2-27 area(s) 2 ity o f cream 00:00: (two) [place] 00 times Medical daily. Branch hydrocortis 2021-08 Yes [id number] Apply to [facility] one 2.5 % 2-27 area(s) 2 ity o f cream 00:00: (two) [place] 00 times Medical daily. Branch hydrocortis 2021-08 Yes [id number] Apply to [facility] one 2.5 % 2-27 area(s) 2 ity o f cream 00:00: (two) [place] 00 times Medical daily. Branch hydrocortis 2021- Yes [id number] Apply to [facility] one 2.5 % 2-27 area(s) 2 ity o f cream 00:00: (two) [place] 00 times Medical daily. Branch hydrocortis 2021-08 Yes [id number] Apply to [facility] one 2.5 % 2-27 area(s) 2 ity o f cream 00:00: (two) [place] 00 times Medical daily. Branch hydrocortis 2021-08 Yes [id number] Apply to [facility] one 2.5 % 2-27 area(s) 2 ity o f cream 00:00: (two) [place] 00 times Medical daily. Branch hydrocortis 2021-08 Yes [id number] Apply to [facility] one 2.5 % 2-27 area(s) 2 ity o f cream 00:00: (two) [place] 00 times Medical daily. Branch hydrocortis 2021-08 Yes [id number] Apply to [facility] one 2.5 % 2-27 area(s) 2 ity o f cream 00:00: (two) [place] 00 times Medical daily. Branch hydrocortis 2021-08 Yes [id number] Apply to [facility] one 2.5 % 2-27 area(s) 2 ity o f cream 00:00: (two) [place] 00 times Medical daily. Branch hydrocortis 2021-08 Yes [id number] Apply to [facility] one 2.5 % 2-27 area(s) 2 ity o f cream 00:00: (two) [place] 00 times Medical daily. Branch hydrocortis 2021-08 Yes [id number] Apply to [facility] one 2.5 % 2-27 area(s) 2 ity o f cream 00:00: (two) [place] 00 times Medical daily. Branch hydrocortis 2021-08 Yes [id number] Apply to [facility] one 2.5 % 2-27 area(s) 2 ity o f cream 00:00: (two) [place] 00 times Medical daily. Branch hydrocortis 2021-08 Yes [id number] Apply to [facility] one 2.5 % 2-27 area(s) 2 ity o f cream 00:00: (two) [place] 00 times Medical daily. Branch hydrocortis 2021-08 Yes [id number] Apply to [facility] one 2.5 % 2-27 area(s) 2 ity o f cream 00:00: (two) [place] 00 times Medical daily. Branch cetirizine 2021-08 Yes [id number] 10mg Take 1 [facility] (ZYRTEC) 10 2-27 tablet by ity of mg tablet 00:00: [place] the [place] morning. Branch fluticasone 2021-08 Yes [id number] 1{spray Use 1 [facility] propionate 2-27 } [place] in ity o f 50 00:00: each [place] mcg/actuati 00 nostril in Me dical on nasal the Branch spray morning. azelastine 2021-08 Yes [id number] 1{spray Use 1 [facility] 137 mcg 2-27 } [place] in ity of (0.1 %) 00:00: each [place] nasal spray 00 nostril in Me dical the Branch morning and 1 [place] in the evening. Use in each nostril as directed hydrocortis 2021-08 Yes [id number] Apply to [facility] one 2.5 % 2-27 area(s) 2 ity o f cream 00:00: (two) [place] 00 times Medical daily. Branch cetirizine 2021-08 Yes [id number] 10mg Take 1 [facility] (ZYRTEC) 10 2-27 tablet by ity of mg tablet 00:00: [place] the Medical morning. Branch fluticasone 2021-08 Yes [id number] 1{spray Use 1 [facility] propionate 2-27 } [place] in ity o f 50 00:00: each [place] mcg/actuati 00 nostril in Me dical on nasal the Branch spray morning. azelastine 2021-08 Yes [id number] 1{spray Use 1 [facility] 137 mcg 2-27 } [place] in ity of (0.1 %) 00:00: each [place] nasal spray 00 nostril in Me dical the Branch morning and 1 [place] in the evening. Use in each nostril as directed hydrocortis 2021-08 Yes [id number] Apply to [facility] one 2.5 % 2-27 area(s) 2 ity o f cream 00:00: (two) [place] 00 times Medical daily. Branch cetirizine 2021-08 Yes [id number] 10mg Take 1 [facility] (ZYRTEC) 10 2-27 tablet by ity of mg tablet 00:00: [place] 00 the Medical morning. Branch fluticasone 2021-08 Yes [id number] 1{spray Use 1 [facility] propionate 2-27 } [place] in ity o f 50 00:00: each [place] mcg/actuati 00 nostril in Me dical on nasal the Branch spray morning. azelastine 2021-08 Yes [id number] 1{spray Use 1 [facility] 137 mcg 2-27 } [place] in ity of (0.1 %) 00:00: each [place] nasal spray 00 nostril in Me dical the Branch morning and 1 [place] in the evening. Use in each nostril as directed hydrocortis 2021-08 Yes [id number] Apply to [facility] one 2.5 % 2-27 area(s) 2 ity o f cream 00:00: (two) [place] 00 times Medical daily. Branch cetirizine 2021-08 Yes [id number] 10mg Take 1 [facility] (ZYRTEC) 10 2-27 tablet by ity of mg tablet 00:00: [place] 00 the Medical morning. Branch fluticasone 2021-08 Yes [id number] 1{spray Use 1 [facility] propionate 2-27 } [place] in ity o f 50 00:00: each [place] mcg/actuati 00 nostril in Me dical on nasal the Branch spray morning. azelastine 2021-08 Yes [id number] 1{spray Use 1 [facility] 137 mcg 2-27 } [place] in ity of (0.1 %) 00:00: each [place] nasal spray 00 nostril in Me dical the Branch morning and 1 [place] in the evening. Use in each nostril as directed hydrocortis 2021-08 Yes [id number] Apply to [facility] one 2.5 % 2-27 area(s) 2 ity o f cream 00:00: (two) [place] 00 times Medical daily. Branch cetirizine 2021-08 Yes [id number] 10mg Take 1 [facility] (ZYRTEC) 10 2-27 tablet by ity of mg tablet 00:00: mouth [place] 00 the Medical morning. Branch fluticasone 2021-08 Yes [id number] 1{spray Use 1 [facility] propionate 2-27 } [place] in ity o f 50 00:00: each [place] mcg/actuati 00 nostril in Me dical on nasal the Branch spray morning. azelastine 2021-08 Yes [id number] 1{spray Use 1 [facility] 137 mcg 2-27 } [place] in ity of (0.1 %) 00:00: each [place] nasal spray 00 nostril in Me dical the Branch morning and 1 [place] in the evening. Use in each nostril as directed hydrocortis 2021-08 Yes [id number] Apply to [facility] one 2.5 % 2-27 area(s) 2 ity o f cream 00:00: (two) [place] 00 times Medical daily. Branch cetirizine 2021-08 Yes [id number] 10mg Take 1 [facility] (ZYRTEC) 10 2-27 tablet by ity of mg tablet 00:00: mouth [place] 00 the Medical morning. Branch fluticasone 2021-08 Yes [id number] 1{spray Use 1 [facility] propionate 2-27 } [place] in ity o f 50 00:00: each [place] mcg/actuati 00 nostril in Me dical on nasal the Branch spray morning. azelastine 2021-08 Yes [id number] 1{spray Use 1 [facility] 137 mcg 2-27 } [place] in ity of (0.1 %) 00:00: each [place] nasal spray 00 nostril in Me dical the Branch morning and 1 [place] in the evening. Use in each nostril as directed hydrocortis 2021-08 Yes [id number] Apply to [facility] one 2.5 % 2-27 area(s) 2 ity o f cream 00:00: (two) [place] 00 times Medical daily. Branch cetirizine 2021-08 Yes [id number] 10mg Take 1 [facility] (ZYRTEC) 10 2-27 tablet by ity of mg tablet 00:00: mouth [place] 00 the Medical morning. Branch fluticasone 2021-08 Yes [id number] 1{spray Use 1 [facility] propionate 2-27 } [place] in ity o f 50 00:00: each [place] mcg/actuati 00 nostril in Me dical on nasal the Branch spray morning. azelastine 2021-08 Yes [id number] 1{spray Use 1 [facility] 137 mcg 2-27 } [place] in ity of (0.1 %) 00:00: each [place] nasal spray 00 nostril in Me dical the Branch morning and 1 [place] in the evening. Use in each nostril as directed hydrocortis 2021-08 Yes [id number] Apply to [facility] one 2.5 % 2-27 area(s) 2 ity o f cream 00:00: (two) [place] 00 times Medical daily. Branch cetirizine 2021-08 Yes [id number] 10mg Take 1 [facility] (ZYRTEC) 10 2-27 tablet by ity of mg tablet 00:00: mouth [place] 00 the Medical morning. Branch fluticasone 2021-08 Yes [id number] 1{spray Use 1 [facility] propionate 2-27 } [place] in ity o f 50 00:00: each [place] mcg/actuati 00 nostril in Me dical on nasal the Branch spray morning. azelastine 2021-08 Yes [id number] 1{spray Use 1 [facility] 137 mcg 2-27 } [place] in ity of (0.1 %) 00:00: each [place] nasal spray 00 nostril in Me dical the Branch morning and 1 [place] in the evening. Use in each nostril as directed hydrocortis 2021-08 Yes [id number] Apply to [facility] one 2.5 % 2-27 area(s) 2 ity o f cream 00:00: (two) [place] 00 times Medical daily. Branch cetirizine 2021-08 Yes [id number] 10mg Take 1 [facility] (ZYRTEC) 10 2-27 tablet by ity of mg tablet 00:00: mouth [place] 00 the Medical morning. Branch fluticasone 2021-08 Yes [id number] 1{spray Use 1 [facility] propionate 2-27 } [place] in ity o f 50 00:00: each [place] mcg/actuati 00 nostril in Me dical on nasal the Branch spray morning. azelastine 2021-08 Yes [id number] 1{spray Use 1 [facility] 137 mcg 2-27 } [place] in ity of (0.1 %) 00:00: each [place] nasal spray 00 nostril in Me dical the Branch morning and 1 [place] in the evening. Use in each nostril as directed hydrocortis 2021-08- No [id number] Apply to [facility] one 2.5 % 2-27 04-14 area(s) 2 ity of cream 00:00: 00:00 (two) [place] 00 :00 times Medical daily. Branch cetirizine 2021-08- No [id number] 10mg Take 1 [facility] (ZYRTEC) 10 2-27 01-19 tablet by it y of mg tablet 00:00: 00:00 mouth in [place] 00 :00 the Medical morning. Branch fluticasone 2021-08- No [id number] 1{spray Use 1 [facility] propionate 10-07 } [place] in ity of 50 00:00: 00:00 each [place] mcg/actuati 00 :00 nostril in Me dical on nasal the Branch spray morning. azelastine 2021-08- No [id number] 1{spray Use 1 [facility] 137 mcg 10-07 } [place] in ity of (0.1 %) 00:00: 00:00 each [place] nasal spray 00 :00 nostril in Me dical the Branch morning and 1 [place] in the evening. Use in each nostril as directed cetirizine 2021-08- No [id number] 10mg Take 1 [facility] (ZYRTEC) 10 10-07 tablet by it y of mg tablet 00:00: 00:00 mouth in [place] 00 :00 the Medical morning. Branch fluticasone 2021-08- No [id number] 1{spray Use 1 [facility] propionate 10-07 } [place] in ity of 50 00:00: 00:00 each [place] mcg/actuati 00 :00 nostril in [place] dical on nasal the Branch spray morning. azelastine 2021-08- No [id number] 1{spray Use 1 [facility] 137 mcg 10-07 } [place] in ity of (0.1 %) 00:00: 00:00 each [place] nasal spray 00 :00 nostril in Me dical the Branch morning and 1 [place] in the evening. Use in each nostril as directed amitriptyli 2021-08 Yes [place] s ne 50 mg 2-07 ity of tablet 00:00: [place] [facility] amitriptyli 2021-08 Yes Univer s ne 50 mg 2-07 ity of tablet 00:00: [place] [facility] amitriptyli 2021-08 Yes Univer s ne 50 mg 2-07 ity of tablet 00:00: [place] [facility] amitriptyli 2021-08 Yes Univer s ne 50 mg 2-07 ity of tablet 00:00: [place] [facility] amitriptyli 2021-08 Yes [place] s ne 50 mg 2-07 ity of tablet 00:00: [place] [facility] amitriptyli 2022-1 Yes Univer s ne 50 mg 2-07 ity of tablet 00:00: [place] 00 Medical Branch amitriptyli 2021-08 Yes Univer [...] of mg tablet 00:00: Medical Branch metoclopram 2021-08- No as needed. [facility] teresa HCl 10 2-02 03-03 ity of mg tablet 00:00: 00:00 [place] 00 :00 Medical Branch metoclopram 2021-08- No as needed. [facility] teresa HCl 10 2- 03-03 ity of mg tablet 00:00: 00:00 [place] 00 :00 Medical Branch amitriptyli 2021-08- No 10mg QD Take [address] [facility] (ELAVIL) 1-24 12-24 tablet (10 L ukes 10 MG 00:00: [...] mouth nightly for 90 days. meloxicam 2021-08 No 15mg QD Take [...] daily for 7 days. ofloxacin 2021-08 Yes [id number] 5[drp] Place 5 Univers 0.3 % otic 0-29 Drops in ity o f drops 00:00: right ear [place] 00 in the Medical morning Branch and 5 Drops in the evening. ofloxacin 2021-08 Yes [id number] 5[drp] Place 5 [facility] 0.3 % otic 0-29 Drops in ity o f drops 00:00: right ear [place] 00 in the Medical morning Branch and 5 Drops in the evening. ofloxacin 2021-08 Yes [id number] 5[drp] Place 5 [facility] 0.3 % otic 0-29 Drops in ity o f drops 00:00: right ear [place] 00 in the Medical morning Branch and 5 Drops in the evening. ofloxacin 2021-08 Yes [id number] 5[drp] Place 5 [facility] 0.3 % otic 0-29 Drops in ity o f drops 00:00: right ear [place] 00 in the Medical morning Branch and 5 Drops in the evening. ofloxacin 2021-08 Yes [id number] 5[drp] Place 5 [facility] 0.3 % otic 0-29 Drops in ity o f drops 00:00: right ear [place] 00 in the Medical morning Branch and 5 Drops in the evening. ofloxacin 2021-08 Yes [id number] 5[drp] Place 5 [facility] 0.3 % otic 0-29 Drops in ity o f drops 00:00: right ear [place] 00 in the Medical morning Branch and 5 Drops in the evening. ofloxacin 2021-08 Yes [id number] 5[drp] Place 5 [facility] 0.3 % otic 0-29 Drops in ity o f drops 00:00: right ear [place] 00 in the Medical morning Branch and 5 Drops in the evening. ofloxacin 2021-08 Yes [id number] 5[drp] Place 5 [facility] 0.3 % otic 0-29 Drops in ity o f drops 00:00: right ear [place] 00 in the Medical morning Branch and 5 Drops in the evening. ofloxacin 2021-08 Yes [id number] 5[drp] Place 5 [facility] 0.3 % otic 0-29 Drops in ity o f drops 00:00: right ear [place] 00 in the Medical morning Branch and 5 Drops in the evening. ofloxacin 2021-08 Yes [id number] 5[drp] Place 5 [facility] 0.3 % otic 0-29 Drops in ity o f drops 00:00: right ear [place] 00 in the Medical morning Branch and 5 Drops in the evening. ofloxacin 2021-08 Yes [id number] 5[drp] Place 5 [facility] 0.3 % otic 0-29 Drops in ity o f drops 00:00: right ear [place] 00 in the Medical morning Branch and 5 Drops in the evening. ofloxacin 2021-08 Yes [id number] 5[drp] Place 5 [facility] 0.3 % otic 0-29 Drops in ity o f drops 00:00: right ear [place] 00 in the Medical morning Branch and 5 Drops in the evening. ofloxacin 2021-08 Yes [id number] 5[drp] Place 5 [facility] 0.3 % otic 0-29 Drops in ity o f drops 00:00: right ear [place] 00 in the Medical morning Branch and 5 Drops in the evening. ofloxacin 2021-08 Yes [id number] 5[drp] Place 5 [facility] 0.3 % otic 0-29 Drops in ity o f drops 00:00: right ear [place] 00 in the Medical morning Branch and 5 Drops in the evening. ofloxacin 2021-08 Yes [id number] 5[drp] Place 5 [facility] 0.3 % otic 0-29 Drops in ity o f drops 00:00: right ear [place] 00 in the Medical morning Branch and 5 Drops in the evening. ofloxacin 2021-08 Yes [id number] 5[drp] Place 5 [facility] 0.3 % otic 0-29 Drops in ity o f drops 00:00: right ear [place] 00 in the Medical morning Branch and 5 Drops in the evening. ofloxacin 2021-08 Yes [id number] 5[drp] Place 5 [facility] 0.3 % otic 0-29 Drops in ity o f drops 00:00: right ear [place] 00 in the Medical morning Branch and 5 Drops in the evening. ofloxacin 2021-08- No [id number] 5[drp] Place 5 [facility] 0.3 % otic 0-29 02-21 Drops in ity of drops 00:00: 00:00 right ear [place] 00 :00 in the Medical morning Branch and 5 Drops in the evening. ofloxacin 2021-08- No [id number] 5[drp] Place 5 [facility] 0.3 % otic 0-29 02-21 Drops in ity of drops 00:00: 00:00 right ear [place] 00 :00 in the Medical morning Branch and 5 Drops in the evening. cefdinir 2021-08- No [id number] 300mg Take 6 mL [facility] 250 mg/5 mL 0-06-19 by mouth ity of suspension 00:00: 05:59 in the [facility] 00 :00 morning Medical and 6 mL Branch in the evening. Do all this for 10 days. cefdinir 2021-08- No [id number] 300mg Take 6 mL [facility] 250 mg/5 mL 0-29 06-19 by mouth ity of suspension 00:00: 05:[address] [facility] 00 :00 morning Medical and 6 mL Branch in the evening. Do all this for 10 days. cefdinir 2021-08- No [id number] 300mg Take 6 mL [facility] 250 mg/5 mL 029 06-19 by mouth ity of suspension 00:00: 05:59 in the [facility] 00 :00 morning Medical and 6 mL Branch in the evening. Do all this for 10 days. bromphenira 2021-08 Yes [id number] 5mL Take 5 mL [facility] mine-pseudo 0-24 by mouth 4 it y of ephedrine-D 00:00: (four) [place] (BROMF[place] times Medical DM) 2-30-10 daily as Bran ch mg/5 mL needed for syrup Congestion /Allergies . azelastine 2021-08 Yes [id number] 1{spray Use 1 [facility] 137 mcg 0-24 } [place] in ity of (0.1 %) 00:00: each [place] nasal spray 00 nostril in [facility] morning and 1 [place] in the evening. Use in each nostril as directed methocarbam 2021-08 Yes [id number] 500mg Take 1 [facility] oL 500 mg 0-24 4 tablet by ity o f tablet 00:00: mouth 4 [place] ([facility]) Medical times [place] daily. bromphenira 2021-08 Yes [id number] 5mL Take 5 mL [facility] mine-pseudo 0-24 by mouth 4 it y of ephedrine-D 00:00: (four) [place] M (BROMFED 00 times Medical DM) 2-30-10 daily as Bran ch mg/5 mL needed for syrup Congestion /Allergies . azelastine 2021-08 Yes [id number] 1{spray Use 1 [facility] 137 mcg 0-24 } [place] in ity of (0.1 %) 00:00: each [place] nasal spray 00 nostril in [facility] morning and 1 [place] in the evening. Use in each nostril as directed methocarbam 2021-08 Yes [id number] 500mg Take 1 [facility] oL 500 mg 0-24 4 tablet by ity o f tablet 00:00: mouth 4 [place] ([facility]) Medical times [place] daily. bromphenira 2021-08 Yes [id number] 5mL Take 5 mL [facility] mine-pseudo 0-24 by mouth 4 it y of ephedrine-D 00:00: (four) [place] (BROMF[place] times Medical ) 2-30-10 daily as Bran ch mg/5 mL needed for syrup Congestion /Allergies . azelastine 2021-08 Yes [id number] 1{spray Use 1 [facility] 137 mcg 0-24 } [place] in ity of (0.1 %) 00:00: each [place] nasal spray 00 nostril in [facility] the [place] morning and 1 [place] in the evening. Use in each nostril as directed methocarbam 2021-08 Yes [id number] 500mg Take 1 [facility] oL 500 mg 0-24 4 tablet by ity o f tablet 00:00: mouth 4 [place] [address] [address] [facility]) [facility] daily. bromphenira 2021-08 Yes [id number] 5mL Take 5 mL [facility] mine-pseudo 0-24 by mouth 4 it y of ephedrine-D 00:00: ([facility]) [place] M ([address]) 2-30-10 daily as Bran ch mg/5 mL needed for syrup Congestion /Allergies . methocarbam 2021-08 Yes [id number] 500mg Take 1 [facility] oL 500 mg 0-24 4 tablet by ity o f tablet 00:00: mouth 4 [place] [address] ([facility] daily. bromphenira 2021-08 Yes [id number] 5mL Take 5 mL [facility] mine-pseudo 0-24 by mouth 4 it y of ephedrine-D 00:00: (four[place] M ([address]) 2-30-10 daily as Bran ch mg/5 mL needed for syrup Congestion /Allergies . methocarbam 2021-08 Yes [id number] 500mg Take 1 [facility] oL 500 mg 0-24 4 tablet by ity o f tablet 00:00: mouth 4 [place] [address] ([facility] daily. bromphenira 2021-08 Yes [id number] 5mL Take 5 mL [facility] mine-pseudo 0-24 by mouth 4 it y of ephedrine-D 00:00: (four) [place] (BROMF[place] times Medical ) 2-30-10 daily as Bran ch mg/5 mL needed for syrup Congestion /Allergies . methocarbam 2021-08 Yes [id number] 500mg Take 1 [facility] oL 500 mg 0-24 4 tablet by ity o f tablet 00:00: mouth 4 [place] (four) Medical times Branch daily. bromphenira 2021-08 Yes [id number] 5mL Take 5 mL [facility] mine-pseudo 0-24 by mouth 4 it y of ephedrine-D 00:00: (four) [place] (BROMFED times Medical DM) 2-30-10 daily as Bran ch mg/5 mL needed for syrup Congestion /Allergies . bromphenira 2021-08 Yes [id number] 5mL Take 5 mL [facility] mine-pseudo 0-24 by mouth 4 it y of ephedrine-D 00:00: (four) [place] (BROMFED times Medical DM) 2-30-10 daily as Bran ch mg/5 mL needed for syrup Congestion /Allergies . bromphenira 2021-08 Yes [id number] 5mL Take 5 mL [facility] mine-pseudo 0-24 by mouth 4 it y of ephedrine-D 00:00: (four) [place] (BROMFED times Medical DM) 2-30-10 daily as Bran ch mg/5 mL needed for syrup Congestion /Allergies . bromphenira 2021-08 Yes [id number] 5mL Take 5 mL [facility] mine-pseudo 0-24 by mouth 4 it y of ephedrine-D 00:00: (four) [place] (BROMFED times Medical DM) 2-30-10 daily as Bran ch mg/5 mL needed for syrup Congestion /Allergies . bromphenira 2021-08 Yes [id number] 5mL Take 5 mL [facility] mine-pseudo 0-24 by mouth 4 it y of ephedrine-D 00:00: (four) [place] (BROMFED 00 times Medical DM) 2-30-10 daily as Bran ch mg/5 mL needed for syrup Congestion /Allergies . bromphenira 2021-08 Yes [id number] 5mL Take 5 mL [facility] mine-pseudo 0-24 by mouth 4 it y of ephedrine-D 00:00: (four) [place] (BROMFED 00 times Medical DM) 2-30-10 daily as Bran ch mg/5 mL needed for syrup Congestion /Allergies . bromphenira 2021-08- No [id number] 5mL Take 5 mL [facility] mine-pseudo 008-29 by mouth 4 i ty of ephedrine-D 00:00: 00:00 (four) [place] (BROMFED 00 :00 times Medical DM) 2-30-10 daily as Bran ch mg/5 mL needed for syrup Congestion /Allergies . bromphenira 2021-08- No [id number] 5mL Take 5 mL [facility] mine-pseudo 008-29 by mouth 4 i ty of ephedrine-D 00:00: 00:00 (four) [place] (BROMFED 00 :00 times Medical DM) 2-30-10 daily as Bran ch mg/5 mL needed for syrup Congestion /Allergies . methocarbam 2021-08- No [id number] 500mg Take 1 [facility] oL 500 mg 08-19 4 tablet by ity of tablet 00:00: 00:00 mouth 4 [place] 00 :00 (four) Medical times [place] daily. azelastine 2021-08- No [id number] 1{spray Use 1 [facility] 137 mcg -27 } [place] in ity of (0.1 %) 00:00: 00:00 each [place] nasal spray 00 :00 nostril in [facility] the [place] morning and 1 [place] in the evening. Use in each nostril as directed HYDROcodone 2021-08- No 1{tbl} Take [address] -acetaminop 0-23 11-02 tablet by Marilyn post (Whi) 00:00: 23:59 mouth Medi dar[place] 5-325 mg 00 :00 every 6 Center per tablet (six) hours as needed for Pain for up to 10 days. Max Daily Amount: 4 tablets HYDROcodone 2021-08- No 1{tbl} Take [address] -acetaminop 0-23 11-02 tablet by Marilyn post (Whi) 00:00: 23:59 mouth Medi [place] 5-325 mg [...] Branch 05/29/22 at 0730, MEGHA NaCl 0.9% 2021-08- No [...] Fri05/29/22 at 0630, MEG[place] ketorolac 2021-08 Yes [id number] 10mg Take 1 Un manoj 10 mg 0-19 tablet by ity of tablet 00:00: mouth [place] 00 every 6 Medical (six) Branch hours as needed for Pain (scale 4-6), Pain (scale 1-3) or Alternate with [place] for pain scale 4-6. proMETHazin 2021-08 Yes [id number] 25mg Take 1 [facility] e 25 mg 0-19 tablet by ity of tablet 00:00: mouth [place] 00 every 6 Medical (six) Branch hours as needed for Nausea and Vomiting (N/V). ketorolac 2021-08 Yes [id number] 10mg Take 1 [facility] 10 mg 0-19 tablet by ity of tablet 00:00: mouth [place] 00 every 6 Medical (six) Branch hours as needed for Pain (scale 4-6), Pain (scale 1-3) or Alternate with [place] for pain scale 4-6. proMETHazin 2021-08 Yes [id number] 25mg Take 1 [facility] 25 mg 0-19 tablet by ity of tablet 00:00: mouth [place] 00 every 6 Medical (six) Branch hours as needed for Nausea and Vomiting (N/V). ketorolac 2021-08 Yes [id number] 10mg Take 1 [facility] 10 mg 0-19 tablet by ity of tablet 00:00: mouth [place] 00 every 6 Medical (six) Branch hours as needed for Pain (scale 4-6), Pain (scale 1-3) or Alternate with [place] for pain scale 4-6. proMETHazin 2021-08 Yes [id number] 25mg Take 1 [facility] 25 mg 0-19 tablet by ity of tablet 00:00: mouth [place] 00 every 6 Medical (six) Branch hours as needed for Nausea and Vomiting (N/V). ketorolac 2021-08 Yes [id number] 10mg Take 1 [facility] 10 mg 0-19 tablet by ity of tablet 00:00: mouth [place] 00 every 6 Medical (six) Branch hours as needed for Pain (scale 4-6), Pain (scale 1-3) or Alternate with [place] for pain scale 4-6. proMETHazin 2021-08 Yes [id number] 25mg Take 1 [facility] 25 mg 0-19 tablet by ity of tablet 00:00: mouth [place] 00 every 6 Medical (six) Branch hours as needed for Nausea and Vomiting (N/V). ketorolac 2021-08 Yes [id number] 10mg Take 1 [facility] 10 mg 0-19 tablet by ity of tablet 00:00: mouth [place] 00 every 6 Medical (six) Branch hours as needed for Pain (scale 4-6), Pain (scale 1-3) or Alternate with [place] for pain scale 4-6. proMETHazin 2021-08 Yes [id number] 25mg Take 1 [facility] 25 mg 0-19 tablet by ity of tablet 00:00: mouth [place] 00 every 6 Medical (six) Branch hours as needed for Nausea and Vomiting (N/V). ketorolac 2021-08 Yes [id number] 10mg Take 1 [facility] 10 mg 0-19 tablet by ity of tablet 00:00: mouth [place] 00 every 6 Medical (six) Branch hours as needed for Pain (scale 4-6), Pain (scale 1-3) or Alternate with [place] for pain scale 4-6. proMETHazin 2021-08 Yes [id number] 25mg Take 1 [facility] 25 mg 0-19 tablet by ity of tablet 00:00: mouth [place] 00 every 6 Medical (six) Branch hours as needed for Nausea and Vomiting (N/V). ketorolac 2021-08 Yes [id number] 10mg Take 1 [facility] 10 mg 0-19 tablet by ity of tablet 00:00: mouth [place] 00 every 6 Medical (six) Branch hours as needed for Pain (scale 4-6), Pain (scale 1-3) or Alternate with [place] for pain scale 4-6. proMETHazin 2021-08 Yes [id number] 25mg Take 1 [facility] 25 mg 0-19 tablet by ity of tablet 00:00: mouth [place] 00 every 6 Medical (six) Branch hours as needed for Nausea and Vomiting (N/V). ketorolac 2021-08 Yes [id number] 10mg Take 1 [facility] man[facility] 10 mg 0-19 tablet by ity of tablet 00:00: mouth [place] 00 every 6 Medical (six) Branch hours as needed for Pain (scale 4-6), Pain (scale 1-3) or Alternate with [place] for pain scale 4-6. proMETHazin 2021-08 Yes [id number] 25mg Take 1 [facility] 25 mg 0-19 tablet by ity of tablet 00:00: mouth [place] 00 every 6 Medical (six) Branch hours as needed for Nausea and Vomiting (N/V). ketorolac 2021-08 Yes [id number] 10mg Take 1 Un mnaoj 10 mg 0-19 tablet by ity of tablet 00:00: mouth [place] 00 every 6 Medical (six) Branch hours as needed for Pain (scale 4-6), Pain (scale 1-3) or Alternate with [place] for pain scale 4-6. proMETHazin 2021-08 Yes [id number] 25mg Take 1 [facility] 25 mg 0-19 tablet by ity of tablet 00:00: mouth [place] 00 every 6 Medical (six) Branch hours as needed for Nausea and Vomiting (N/V). ketorolac 2021-08 Yes [id number] 10mg Take 1 [facility] 10 mg 0-19 tablet by ity of tablet 00:00: mouth [place] 00 every 6 Medical (six) Branch hours as needed for Pain (scale 4-6), Pain (scale 1-3) or Alternate with [place] for pain scale 4-6. proMETHazin 2021-08 Yes [id number] 25mg Take 1 [facility] 25 mg 0-19 tablet by ity of tablet 00:00: mouth [place] 00 every 6 Medical (six) Branch hours as needed for Nausea and Vomiting (N/V). ketorolac 2021-08 Yes [id number] 10mg Take 1 [facility] 10 mg 0-19 tablet by ity of tablet 00:00: mouth [place] 00 every 6 Medical (six) Branch hours as needed for Pain (scale 4-6), Pain (scale 1-3) or Alternate with [place] for pain scale 4-6. proMETHazin 2021-08 Yes [id number] 25mg Take 1 [facility] 25 mg 0-19 tablet by ity of tablet 00:00: mouth [place] 00 every 6 Medical (six) Branch hours as needed for Nausea and Vomiting (N/V). ketorolac 2021-08 Yes [id number] 10mg Take 1 [facility] 10 mg 0-19 tablet by ity of tablet 00:00: mouth [place] 00 every 6 Medical (six) Branch hours as needed for Pain (scale 4-6), Pain (scale 1-3) or Alternate with [place] for pain scale 4-6. proMETHazin 2021-08 Yes [id number] 25mg Take 1 [facility] 25 mg 0-19 tablet by ity of tablet 00:00: mouth [place] 00 every 6 Medical (six) Branch hours as needed for Nausea and Vomiting (N/V). ketorolac 2021-08 Yes [id number] 10mg Take 1 [facility] man[facility] 10 mg 0-19 tablet by ity of tablet 00:00: mouth [place] 00 every 6 Medical (six) Branch hours as needed for Pain (scale 4-6), Pain (scale 1-3) or Alternate with [place] for pain scale 4-6. proMETHazin 2021-08 Yes [id number] 25mg Take 1 [facility] 25 mg 0-19 tablet by ity of tablet 00:00: mouth [place] 00 every 6 Medical (six) Branch hours as needed for Nausea and Vomiting (N/V). ketorolac 2021-08- No [id number] 10mg Take 1 [facility] 10 mg 0-19 01-19 tablet by ity of tablet 00:00: 00:00 mouth [place] 00 :00 every 6 Medical (six) Branch hours as needed for Pain (scale 4-6), Pain (scale 1-3) or Alternate with [place] for pain scale 4-6. proMETHazin 2021-08- No [id number] 25mg Take 1 [facility] 25 mg 0-19 01-19 tablet by ity of tablet 00:00: 00:00 mouth [place] 00 :00 every 6 Medical (six) Branch hours as needed for Nausea and Vomiting (N/V). ketorolac 2021-08 No [id number] 10mg Take 1 [facility] nivers 10 mg 0- tablet by ity of tablet 00:00: 00:00 mouth [place] 00 :00 every 6 Medical (six) Branch hours as needed for Pain (scale 4-6), Pain (scale 1-3) or Alternate with [place] for pain scale 4-6. proMETHazin 2021-08- No [id number] 25mg Take 1 [facility] 25 mg 0- tablet by ity of tablet 00:00: 00:00 mouth [place] 00 :00 every 6 Medical (six) Branch hours as needed for Nausea and Vomiting (N/V). HYDROcodone 2021-08 No [id number] 1{tbl} Take 1 U nivers -acetaminop 06-06 tablet by it y of hen 5-325 00:00: 04:59 mouth [place] mg tablet 00 :00 every 6 Medical (six) Branch hours as needed for Pain (scale 7-10) for up to 7 days. Indication s: acute pain proMETHazin 2021-08 No 25mg 25 mg, IV [facility] e 005-22 Piggyback, ity of (PHENERGAN) 14:30: 14:49 ONCE, 1 [place] 25 mg in 00 :00 dose, On Medical NaCl 0.9% Wed Branch (NS) 50 mL 05/22/22 IV at 0930, piggyback MEGHA NaCl 0.9% 2021-08 No 1000mL at 999 Uni vers (NS) IV 0 10-12 mL/hr, ity of infusion 14:15: 15:53 Intravenou [place] 1,000 mL 00 :00 s, ONCE, 1 Medic al dose, On Branch 05/22/22 at 0915, MEGHA pantoprazol 2021-08 No 40mg 40 mg, Uni vers e 0-07 20- Slow IV ity of (PROTONIX) 13:15: 13:26 Push, [place] injection 00 :00 ONCE, 1 Medical 40 mg dose, On Branch 05/22/22 at 0815 morpHINE (4 2021-08- No 4mg 4 mg, Slow [facility] mg/mL) 0-12 10-12 IV Push, ity of injection 4 13:15: 13:26 ONCE, 1 [place] mg 00 :00 dose, On Medical Wed Branch 05/22/22 at 0815, Routine dicyclomine 2021-08 Yes [id number] 20mg Take 1 [facility] 20 mg 0-12 tablet by ity of tablet 00:00: mouth (four) Medical times Branch daily as needed for Abdominal pain. dicyclomine 2021-08 Yes [id number] 20mg Take 1 [facility] 20 mg 0-12 tablet by ity of tablet 00:00: mouth (four) Medical times Branch daily as needed for Abdominal pain. dicyclomine 2021-08 Yes [id number] 20mg Take 1 [facility] 20 mg 0-12 tablet by ity of tablet 00:00: mouth () Medical times Branch daily as needed for Abdominal pain. dicyclomine 2021-08 Yes [id number] 20mg Take 1 [facility] 20 mg 0-12 tablet by ity of tablet 00:00: mouth (four) Medical times Branch daily as needed for Abdominal pain. dicyclomine 2021-08 Yes [id number] 20mg Take 1 [facility] 20 mg 0-12 tablet by ity of tablet 00:00: mouth () Medical times Branch daily as needed for Abdominal pain. dicyclomine 2021-08 Yes [id number] 20mg Take 1 [facility] 20 mg 0-12 tablet by ity of tablet 00:00: mouth () Medical times Branch daily as needed for Abdominal pain. dicyclomine 2021-08 Yes [id number] 20mg Take 1 [facility] 20 mg 0-12 tablet by ity of tablet 00:00: mouth (four) Medical times Branch daily as needed for Abdominal pain. dicyclomine 2021-08 Yes [id number] 20mg Take 1 [facility] 20 mg 0-12 tablet by ity of tablet 00:00: mouth (four) Medical times Branch daily as needed for Abdominal pain. dicyclomine 2021-08 Yes [id number] 20mg Take 1 [facility] 20 mg 0-12 tablet by ity of tablet 00:00: mouth (four) Medical times Branch daily as needed for Abdominal pain. dicyclomine 2021-08 Yes [id number] 20mg Take 1 [facility] 20 mg 0-12 tablet by ity of tablet 00:00: mouth [address] [place] [address] (four) Medical times Branch daily as needed for Abdominal pain. dicyclomine 2021-08 Yes [id number] 20mg Take 1 [facility] 20 mg 0-12 tablet by ity of tablet 00:00: [address] (four) Medical times Branch daily as needed for Abdominal pain. dicyclomine 2021-08 Yes [id number] 20mg Take 1 [facility] 20 mg 0-12 tablet by ity of tablet 00:00: mouth [address] [place] [address] (four) Medical times Branch daily as needed for Abdominal pain. dicyclomine 2021-08 Yes [id number] 20mg Take 1 [facility] 20 mg 0-12 tablet by ity of tablet 00:00: [address] ([facility]) Medical times Branch daily as needed for Abdominal pain. dicyclomine 2021-08 Yes [id number] 20mg Take 1 [facility] 20 mg 0-12 tablet by ity of tablet 00:00: [address] ([facility]) Medical times Branch daily as needed for Abdominal pain. dicyclomine 2021-08- No [id number] 20mg Take 1 [facility] 20 mg 0-12 01-19 tablet by ity of tablet 00:00: 00:[address] 00 : (four) Medical times Branch daily as needed for Abdominal pain. dicyclomine 2021-08- No [id number] 20mg Take 1 [facility] 20 mg 0-12 -19 tablet by ity of tablet 00:00: 00:[address] 00 :00 (four) Medical times Branch daily as needed for Abdominal pain. HYDROcodone 2021- No 1{tbl} Take [address] -acetaminop 9-26 10-06 tablet by Marilyn post (Whi) 00:00: 23:59 mouth Medi [place] 5-325 mg 00 :00 every 6 Center per tablet (six) hours as needed for Pain for up to 10 days. Max Daily Amount: 4 tablets HYDROcodone 2021- No 1{tbl} Take [address] -acetaminop 9-26 10-06 tablet by Marilyn post (Whi) 00:00: 23:59 mouth [facility]i [place] 5-325 mg 00 :00 every 6 Center per tablet (six) hours as needed for Pain for up to 10 days. Max Daily Amount: 4 tablets DIVALPROEX 2-0 Yes [id number] TAKE ONE [facility] 500 mg EC 9-23 TABLET BY ity o f tablet 00:00: MOUTH [place] 00 EVERY 12 Medical HOURS Branch DIVALPROEX 2021-0 Yes [id number] TAKE ONE [facility] 500 mg EC 9-23 TABLET BY ity o f tablet 00:00: MOUTH [place] 00 EVERY 12 Medical HOURS Branch DIVALPROEX 2021-0 Yes [id number] TAKE ONE [facility] 500 mg EC 9-23 TABLET BY ity o f tablet 00:00: MOUTH [place] 00 EVERY 12 Medical HOURS Branch DIVALPROEX 2021-0 Yes [id number] TAKE ONE [facility] 500 mg EC 9-23 TABLET BY ity o f tablet 00:00: MOUTH [place] 00 EVERY 12 Medical HOURS Branch DIVALPROEX 2021-0 Yes [id number] TAKE ONE [facility] 500 mg EC 9-23 TABLET BY ity o f tablet 00:00: MOUTH [place] 00 EVERY 12 Medical HOURS Branch DIVALPROEX 2021-0 Yes [id number] TAKE ONE [facility] 500 mg EC 9-23 TABLET BY ity o f tablet 00:00: MOUTH [place] 00 EVERY 12 Medical HOURS Branch DIVALPROEX 2021-0 Yes [id number] TAKE ONE [facility] 500 mg EC 9-23 TABLET BY ity o f tablet 00:00: MOUTH [place] 00 EVERY 12 Medical HOURS Branch DIVALPROEX 2021-0 Yes [id number] TAKE ONE [facility] 500 mg EC 9-23 TABLET BY ity o f tablet 00:00: MOUTH [place] 00 EVERY 12 Medical HOURS Branch DIVALPROEX 2021-0 Yes [id number] TAKE ONE [facility] 500 mg EC 9-23 TABLET BY ity o f tablet 00:00: MOUTH [place] 00 EVERY 12 Medical HOURS Branch DIVALPROEX 2021-0 Yes [id number] TAKE ONE [facility] 500 mg EC 9-23 TABLET BY ity o f tablet 00:00: MOUTH [place] 00 EVERY 12 Medical HOURS Branch DIVALPROEX 2021-0 Yes [id number] TAKE ONE [facility] 500 mg EC 9-23 TABLET BY ity o f tablet 00:00: MOUTH [place] 00 EVERY 12 Medical HOURS Branch DIVALPROEX 2021-0 Yes [id number] TAKE ONE [facility] 500 mg EC 9-23 TABLET BY ity o f tablet 00:00: MOUTH [place] 00 EVERY 12 Medical HOURS Branch DIVALPROEX 2021-0 Yes [id number] TAKE ONE [facility] 500 mg EC 9-23 TABLET BY ity o f tablet 00:00: MOUTH [place] 00 EVERY 12 Medical HOURS Branch DIVALPROEX 2021-0 Yes [id number] TAKE ONE [facility] 500 mg EC 9-23 TABLET BY ity o f tablet 00:00: MOUTH [place] 00 EVERY 12 Medical HOURS Branch DIVALPROEX 2021-0 Yes [id number] TAKE ONE [facility] 500 mg EC 9-23 TABLET BY ity o f tablet 00:00: MOUTH [place] 00 EVERY 12 Medical HOURS Branch DIVALPROEX 2021-0 Yes [id number] TAKE ONE [facility] 500 mg EC 9-23 TABLET BY ity o f tablet 00:00: MOUTH [place] 00 EVERY 12 Medical HOURS Branch DIVALPROEX 2021-0 Yes [id number] TAKE ONE [facility] 500 mg EC 9-23 TABLET BY ity o f tablet 00:00: MOUTH [place] 00 EVERY 12 Medical HOURS Branch DIVALPROEX 2021-0 Yes [id number] TAKE ONE [facility] 500 mg EC 9-23 TABLET BY ity o f tablet 00:00: MOUTH [place] 00 EVERY 12 Medical HOURS Branch DIVALPROEX 2021-0 Yes [id number] TAKE ONE [facility] 500 mg EC 9-23 TABLET BY ity o f tablet 00:00: MOUTH [place] 00 EVERY 12 Medical HOURS Branch DIVALPROEX 2021-0 Yes [id number] TAKE ONE [facility] 500 mg EC 9-23 TABLET BY ity o f tablet 00:00: MOUTH [place] 00 EVERY 12 Medical HOURS Branch DIVALPROEX 2021-0 2023- No [id number] TAKE ONE [facility] 500 mg EC 9-23 02-21 TABLET BY ity of tablet 00:00: 00:00 MOUTH [place] 00 :00 EVERY 12 Medical HOURS Branch DIVALPROEX 2021-0 2023- No [id number] TAKE ONE [facility] 500 mg EC 9-23 02-21 TABLET BY ity of tablet 00:00: 00:00 MOUTH [place] 00 :00 EVERY 12 Medical HOURS Branch oxybutynin 2022-0 2- No 5mg Q.[id number] Take [address] [facility] (DITROPAN) 9-20 09-14 [id number] by mouth 3 [facility] tablet 15:51: 00:00 3D (three) Me dical 04 :00 times Center daily. cephalexin 2-0 2022- No 500mg Q.5D Take [address] (KEFLEX) - 09-14 mg by [facility] 500 MG 15:51: 00:00 mouth 2 Medical capsule 04 :00 (two) Center times daily. ketorolac 2-0 2022- No 10mg Take [address] (TORADOL) 04-30-14 by mouth [facility] 10 mg 15:51: 00:00 every 6 Medical tablet 04 :00 (six) Center hours as needed for Pain. oxybutynin 2021-0 2- No 5mg Q.[id number] Take [address] [facility] (DITROPAN) 04-30- [id number] by mouth 3 [facility] 5 MG tablet 15:51: 00:00 3D (three) Me dical 04 :00 times Center daily. cephalexin 2021-0 2022- No 500mg Q.5D Take [address] (KEFLEX) -30 04-14 mg by [facility] 500 MG 15:51: 00:00 mouth 2 Medical capsule 04 :00 (two) Center times daily. ketorolac 2021-0 2022- No 10mg Take [address] (TORADOL) 04-30-14 by mouth [facility] 10 mg 15:51: 00:00 every 6 Medical tablet 04 :00 (six) Center hours as needed for Pain. mirabegron 2021-0 2022- No 50mg QD Take [address] [facility] (MYRBETRIQ) 9-20 10-20 tablet (50 [facility] 50 mg Tb24 00:00: 23:59 mg total) M edical ER tablet 00 :00 by mouth Center daily for 30 days. mirabegron 2-0 2022- No 50mg QD Take [address] [facility] (MYRBETRIQ) 9-20 10-20 tablet (50 [facility] 50 mg Tb24 00:00: 23:59 mg total) M edical ER tablet 00 :00 by mouth Center daily for 30 days. gabapentin 2021-0 2022- No 100mg Q.[id number] Take [address] [facility] (NEURONTIN) 04-29-19 [id number] capsule [facility] 100 MG 00:00: 23:59 3D (100 mg Medical capsule 00 :00 total) by Center mouth 3 (three) times daily for 30 days. gabapentin 2021-0 2021- No 100mg Q.[id number] Take [address] [facility] (NEURONTIN) 04-29 [id number] capsule [facility] 100 MG 00:00: 23:59 3D (100 mg Medical capsule 00 :00 total) by Center mouth 3 (three) times daily for 30 days. HYDROcodone 2021-0 2021- No 1{tbl} Take [...] Amount: 4 tablets oxybutynin 2021-0 Yes 5mg Q.[id number] Take [address] [facility] (DITROPAN) 04-24 [id number] tablet (5 [facility] 5 MG tablet 00:00: 3D mg total) M edical 00 by mouth 3 Center (three) times daily. oxybutynin 2-0 Yes 5mg Q.[id number] Take [address] [facility] (DITROPAN) 04-24 [id number] tablet (5 [facility] 5 MG tablet 00:00: 3D mg total) M edical 00 by mouth 3 Center (three) times daily. tamsulosin 2021-0 2021- No .4mg QD Take [address] [facility] (FLOMAX) 04-24- capsule [facility] 0.4 mg Cap 00:00: 23:59 (0.4 mg Med ical 24 hr 00 :00 total) by Center capsule mouth daily for 30 days. tamsulosin 2022-0 2021- No .4mg QD Take [address] [facility] (FLOMAX) 04-24 10-14 capsule [facility] 0.4 mg Cap 00:00: 23:59 (0.4 mg Med ical 24 hr 00 :00 total) by Center capsule mouth daily for 30 days. nitrofurant 2021-2021- No 100mg Q.5D Take [...] Me dical l-monohydra 00 :00 total) by [facility] ter te, mouth 2 (MACROBID) (two) 100 MG times capsule daily for 10 days. ketorolac 2021-2021- No 10mg Take [facility] 04-24 tablet (10 Ernesto es 10 mg 00:00: 23:59 mg total) Medica l tablet 00 :00 by mouth Center every 6 (six) hours as needed for Pain for up to 5 days. HYDROcodone 2021-2021- No 1{tbl} Take 1 [...] Pain for up to 5 days. HYDROcodone 2021-2021- No 1{tbl} Take 1 [...] 00 :00 dose, On Medica l tablet Fri04/16/22 Branc h tablet at 1400, Routine ketorolac 2021- No 15mg 15 mg, Unive rs (TORADOL) 04-16 Slow IV ity of injection 19:00: 18:13 Push, [place] 15 mg 00 :00 ONCE, 1 Medical dose, On Branch Fri04/16/22 at 1400, [facility] proMETHazin 2021- No 25mg 25 mg, Uni vers e 04-16 Intramuscu ity of (PHENERGAN) 18:15: 18:23 lar, ONCE, [place] injection 00 :00 1 dose, On Medi darren 25 mg [facility] 04/16/22 Branch at 1315, MEGHA cefTRIAXone 2021- No 1000mg 1,000 mg, Univers (ROCEPHIN) 04-16 IV ity of 1,000 mg in 18:00: 18:30 Piggyback, [place] NaCl 0.9% 00 :00 ONCE, 1 Medical (NS) 50 mL dose, On Bran h MINI-BAG [facility] 04/16/22 at 1300, Administer over 30 Minutes, 50 mL
R katherin for Anti-Infec tive: Documented Infection< br>Documen abdias Infection Site: Urine<br&g t;Duration of Therapy: Other (see Comments) iopamidol 2021- No [id number] 65mL 65 mL, U nivers (ISOVUE 04-16 Intravenou ity o f 370-500 mL) 17:15: 17:15 s, ONCE, 1 [place] injection 00 :00 dose, On Medica l 65 mL [facility] 04/16/22 Branch at 1215, Routine morpHINE (4 No 4mg 4 mg, Slow Univers mg/mL) 04-16 IV Push, ity of injection 4 16:45: 16:00 ONCE, 1 [place] mg 00 :00 dose, On Medical [facility] 04/16/22 Branch at 1145, STAT ondansetron 2021- No 4mg 4 mg, Slow Univers (ZOFRAN 04-16 IV Push, ity of (PF)) 16:45: 16:00 ONCE, 1 [place] injection 4 00 :00 dose, On Medi darren mg [facility] 04/16/22 Branch at 1145, MEGHA NaCl 0.9% 2021- No 1000mL at 999 Uni vers (NS) bolus 04-16 mL/hr, ity of infusion 16:45: 18:30 1,000 mL, Renato as 1,000 mL 00 :00 IV Medical Infusion, Branch ONCE, 1 dose, On Fri04/16/22 at 1145, MEGHA ondansetron 2-0 Yes [id number] 4mg Take 1 [facility] 4 mg 9-06 tablet by ity of disintegrat 00:00: mouth [place] ing tablet 00 every 8 Medica l (eight) Branch hours as needed for Nausea and Vomiting (N/V). proMETHazin 2022-0 Yes [id number] 25mg Take 1 [facility] e 25 mg 9-06 tablet by ity of tablet 00:00: mouth [place] 00 every 6 Medical (six) Branch hours as needed for N/V unresponsi ve to Ondansetro n. ketorolac 2022-0 Yes [id number] 10mg Take 1 Un manoj 10 mg 9-06 tablet by ity of tablet 00:00: mouth [place] 00 every 6 Medical (six) Branch hours as needed for Pain (scale 1-3) or Pain (scale 4-6). cephALEXin 2022-0 Yes [id number] 500mg Take 1 [facility] (KEFLEX) 9-06 capsule by ity o f 500 mg 00:00: mouth in [place] capsule 00 the Medical morning Branch and 1 capsule in the evening. ondansetron 2-0 Yes [id number] 4mg Take 1 [facility] 4 mg 9-06 tablet by ity of disintegrat 00:00: mouth [place] ing tablet 00 every 8 Medica l (eight) Branch hours as needed for Nausea and Vomiting (N/V). proMETHazin 2022-0 Yes [id number] 25mg Take 1 Univers e 25 mg 9-06 tablet by ity of tablet 00:00: mouth [place] 00 every 6 Medical (six) Branch hours as needed for N/V unresponsi ve to Ondansetro n. ketorolac 2022-0 Yes [id number] 10mg Take 1 Un manoj 10 mg 9-06 tablet by ity of tablet 00:00: mouth [place] 00 every 6 Medical (six) Branch hours as needed for Pain (scale 1-3) or Pain (scale 4-6). cephALEXin 2022-0 Yes [id number] 500mg Take 1 [facility] (KEFLEX) 9-06 capsule by ity o f 500 mg 00:00: mouth in [place] capsule 00 the Medical morning Branch and 1 capsule in the evening. ondansetron 2022-0 Yes [id number] 4mg Take 1 [facility] 4 mg 9-06 tablet by ity of disintegrat 00:00: mouth [place] ing tablet 00 every 8 Medica l (eight) Branch hours as needed for Nausea and Vomiting (N/V). proMETHazin 2-0 Yes [id number] 25mg Take 1 Univers e 25 mg 9-06 tablet by ity of tablet 00:00: mouth [place] 00 every 6 Medical (six) Branch hours as needed for N/V unresponsi ve to Ondansetro n. ketorolac 2021-0 Yes [id number] 10mg Take 1 Un manoj 10 mg 9-06 tablet by ity of tablet 00:00: mouth [place] 00 every 6 Medical (six) Branch hours as needed for Pain (scale 1-3) or Pain (scale 4-6). cephALEXin 2021-0 Yes [id number] 500mg Take 1 [facility] (KEFLEX) 9-06 capsule by ity o f 500 mg 00:00: mouth in [place] capsule 00 the Medical morning Branch and 1 capsule in the evening. ondansetron 2021-0 Yes [id number] 4mg Take 1 [facility] 4 mg 9-06 tablet by ity of disintegrat 00:00: mouth [place] ing tablet 00 every 8 Medica l (eight) Branch hours as needed for Nausea and Vomiting (N/V). proMETHazin 2021-0 Yes [id number] 25mg Take 1 Univers e 25 mg 9-06 tablet by ity of tablet 00:00: mouth [place] 00 every 6 Medical (six) Branch hours as needed for N/V unresponsi ve to Ondansetro n. ketorolac 2-0 Yes [id number] 10mg Take 1 Un manoj 10 mg 9-06 tablet by ity of tablet 00:00: mouth [place] 00 every 6 Medical (six) Branch hours as needed for Pain (scale 1-3) or Pain (scale 4-6). cephALEXin 2022-0 Yes [id number] 500mg Take 1 [facility] (KEFLEX) 9-06 capsule by ity o f 500 mg 00:00: mouth in [place] capsule 00 the Medical morning Branch and 1 capsule in the evening. ondansetron 2022-0 Yes [id number] 4mg Take 1 [facility] 4 mg 9-06 tablet by ity of disintegrat 00:00: mouth [place] ing tablet 00 every 8 Medica l (eight) Branch hours as needed for Nausea and Vomiting (N/V). proMETHazin 2022-0 Yes [id number] 25mg Take 1 Univers e 25 mg 9-06 tablet by ity of tablet 00:00: mouth [place] 00 every 6 Medical (six) Branch hours as needed for N/V unresponsi ve to Ondansetro n. ketorolac 2022-0 Yes [id number] 10mg Take 1 Un manoj 10 mg 9-06 tablet by ity of tablet 00:00: mouth [place] 00 every 6 Medical (six) Branch hours as needed for Pain (scale 1-3) or Pain (scale 4-6). cephALEXin 2022-0 Yes [id number] 500mg Take 1 [facility] (KEFLEX) 9-06 capsule by ity o f 500 mg 00:00: mouth in [place] capsule 00 the Medical morning Branch and 1 capsule in the evening. ondansetron 2022-0 Yes [id number] 4mg Take 1 [facility] 4 mg 9-06 tablet by ity of disintegrat 00:00: mouth [place] ing tablet 00 every 8 Medica l (eight) Branch hours as needed for Nausea and Vomiting (N/V). proMETHazin 2022-0 Yes [id number] 25mg Take 1 Univers e 25 mg 9-06 tablet by ity of tablet 00:00: mouth [place] 00 every 6 Medical (six) Branch hours as needed for N/V unresponsi ve to Ondansetro n. ketorolac 2022-0 Yes [id number] 10mg Take 1 Un manoj 10 mg 9-06 tablet by ity of tablet 00:00: mouth [place] 00 every 6 Medical (six) Branch hours as needed for Pain (scale 1-3) or Pain (scale 4-6). cephALEXin 2022-0 Yes [id number] 500mg Take 1 [facility] (KEFLEX) 9-06 capsule by ity o f 500 mg 00:00: mouth in [place] capsule 00 the Medical morning Branch and 1 capsule in the evening. ondansetron 2022-0 Yes [id number] 4mg Take 1 [facility] 4 mg 9-06 tablet by ity of disintegrat 00:00: mouth [place] ing tablet 00 every 8 Medica l (eight) Branch hours as needed for Nausea and Vomiting (N/V). proMETHazin 2022-0 Yes [id number] 25mg Take 1 Univers e 25 mg 9-06 tablet by ity of tablet 00:00: mouth [place] 00 every 6 Medical (six) Branch hours as needed for N/V unresponsi ve to Ondansetro n. ketorolac 0 Yes [id number] 10mg Take 1 Un manoj 10 mg 9-06 tablet by ity of tablet 00:00: mouth [place] 00 every 6 Medical (six) Branch hours as needed for Pain (scale 1-3) or Pain (scale 4-6). ondansetron 0 Yes [id number] 4mg Take 1 [facility] 4 mg 9-06 tablet by ity of disintegrat 00:00: mouth [place] ing tablet 00 every 8 Medica l (eight) Branch hours as needed for Nausea and Vomiting (N/V). proMETHazin Yes [id number] 25mg Take 1 [facility] e 25 mg 9-06 tablet by ity of tablet 00:00: mouth [place] 00 every 6 Medical (six) Branch hours as needed for N/V unresponsi ve to Ondansetro n. ketorolac 0 Yes [id number] 10mg Take 1 Un manoj 10 mg 9-06 tablet by ity of tablet 00:00: mouth [place] 00 every 6 Medical (six) Branch hours as needed for Pain (scale 1-3) or Pain (scale 4-6). ondansetron 0 Yes [id number] 4mg Take 1 [facility] 4 mg 9-06 tablet by [facility]y of disintegrat 00:00: mouth [place] ing tablet 00 every 8 Medica l (eight) Branch hours as needed for Nausea and Vomiting (N/V). proMETHazin 0 Yes [id number] 25mg Take 1 [facility] 25 mg 9-06 tablet by ity of tablet 00:00: mouth [place] 00 every 6 Medical (six) Branch hours as needed for N/V unresponsi ve to Ondansetro n. ketorolac 0 Yes [id number] 10mg Take 1 [facility] manoj 10 mg 9-06 tablet by ity of tablet 00:00: mouth [place] 00 every 6 Medical (six) Branch hours as needed for Pain (scale 1-3) or Pain (scale 4-6). ondansetron 0 Yes [id number] 4mg Take 1 [facility] 4 mg 9-06 tablet by ity of disintegrat 00:00: mouth [place] ing tablet 00 every 8 Medica l (eight) Branch hours as needed for Nausea and Vomiting (N/V). proMETHazin 0 Yes [id number] 25mg Take 1 [facility] 25 mg 9-06 tablet by ity of tablet 00:00: mouth [place] 00 every 6 Medical (six) Branch hours as needed for N/V unresponsi ve to Ondansetro n. ketorolac 0 Yes [id number] 10mg Take 1 [facility] manoj 10 mg 9-06 tablet by ity of tablet 00:00: mouth [place] 00 every 6 Medical (six) Branch hours as needed for Pain (scale 1-3) or Pain (scale 4-6). ondansetron 0 Yes [id number] 4mg Take 1 [facility] 4 mg 9-06 tablet by ity of disintegrat 00:00: mouth [place] ing tablet 00 every 8 Medica l (eight) Branch hours as needed for Nausea and Vomiting (N/V). proMETHazin 0 Yes [id number] 25mg Take 1 [facility] 25 mg 9-06 tablet by ity of tablet 00:00: mouth [place] 00 every 6 Medical (six) Branch hours as needed for N/V unresponsi ve to Ondansetro n. ketorolac 0 Yes [id number] 10mg Take 1 [facility] manoj 10 mg 9-06 tablet by ity of tablet 00:00: mouth [place] 00 every 6 Medical (six) Branch hours as needed for Pain (scale 1-3) or Pain (scale 4-6). ondansetron 0 Yes [id number] 4mg Take 1 [facility] 4 mg 9-06 tablet by ity of disintegrat 00:00: mouth [place] ing tablet 00 every 8 Medica l (eight) Branch hours as needed for Nausea and Vomiting (N/V). proMETHazin 2021-0 Yes [id number] 25mg Take 1 [facility] e 25 mg 9-06 tablet by ity of tablet 00:00: mouth [place] 00 every 6 Medical (six) Branch hours as needed for N/V unresponsi ve to Ondansetro n. ketorolac 2021-0 Yes [id number] 10mg Take 1 [facility] manoj 10 mg 9-06 tablet by ity of tablet 00:00: mouth [place] 00 every 6 Medical (six) Branch hours as needed for Pain (scale 1-3) or Pain (scale 4-6). ondansetron 0 Yes [id number] 4mg Take 1 [facility] 4 mg 9-06 tablet by ity of disintegrat 00:00: mouth [place] ing tablet 00 every 8 Medica l (eight) Branch hours as needed for Nausea and Vomiting (N/V). proMETHazin 0 Yes [id number] 25mg Take 1 [facility] 25 mg 9-06 tablet by ity of tablet 00:00: mouth [place] 00 every 6 Medical (six) Branch hours as needed for N/V unresponsi ve to Ondansetro n. ketorolac 0 Yes [id number] 10mg Take 1 [facility] manoj 10 mg 9-06 tablet by ity of tablet 00:00: mouth [place] 00 every 6 Medical (six) Branch hours as needed for Pain (scale 1-3) or Pain (scale 4-6). ondansetron 0 Yes [id number] 4mg Take 1 [facility] 4 mg 9-06 tablet by ity of disintegrat 00:00: mouth [place] ing tablet 00 every 8 Medica l (eight) Branch hours as needed for Nausea and Vomiting (N/V). proMETHazin 0 Yes [id number] 25mg Take 1 [facility] e 25 mg 9-06 tablet by ity of tablet 00:00: mouth [place] 00 every 6 Medical (six) Branch hours as needed for N/V unresponsi ve to Ondansetro n. ketorolac 0 Yes [id number] 10mg Take 1 [facility] manoj 10 mg 9-06 tablet by ity of tablet 00:00: mouth [place] 00 every 6 Medical (six) Branch hours as needed for Pain (scale 1-3) or Pain (scale 4-6). ondansetron 0 Yes [id number] 4mg Take 1 [facility] 4 mg 9-06 tablet by ity of disintegrat 00:00: mouth [place] ing tablet 00 every 8 Medica l (eight) Branch hours as needed for Nausea and Vomiting (N/V). proMETHazin 2021-0 Yes [id number] 25mg Take 1 [facility] 25 mg 9-06 tablet by ity of tablet 00:00: mouth [place] 00 every 6 Medical (six) Branch hours as needed for N/V unresponsi ve to Ondansetro n. ketorolac 0 Yes [id number] 10mg Take 1 [facility] manoj 10 mg 9-06 tablet by ity of tablet 00:00: mouth [place] 00 every 6 Medical (six) Branch hours as needed for Pain (scale 1-3) or Pain (scale 4-6). ondansetron 0 Yes [id number] 4mg Take 1 [facility] 4 mg 9-06 tablet by ity of disintegrat 00:00: mouth [place] ing tablet 00 every 8 Medica l (eight) Branch hours as needed for Nausea and Vomiting (N/V). proMETHazin 0 Yes [id number] 25mg Take 1 [facility] 25 mg 9-06 tablet by ity of tablet 00:00: mouth [place] 00 every 6 Medical (six) Branch hours as needed for N/V unresponsi ve to Ondansetro n. ketorolac 0 Yes [id number] 10mg Take 1 [facility] 10 mg 9-06 tablet by ity of tablet 00:00: mouth [place] 00 every 6 Medical (six) Branch hours as needed for Pain (scale 1-3) or Pain (scale 4-6). ondansetron 0 Yes [id number] 4mg Take 1 [facility] 4 mg 9-06 tablet by ity of disintegrat 00:00: mouth [place] ing tablet 00 every 8 Medica l (eight) Branch hours as needed for Nausea and Vomiting (N/V). proMETHazin 0 Yes [id number] 25mg Take 1 [facility] 25 mg 9-06 tablet by ity of tablet 00:00: mouth [place] 00 every 6 Medical (six) Branch hours as needed for N/V unresponsi ve to Ondansetro n. ketorolac 0 Yes [id number] 10mg Take 1 [facility] 10 mg 9-06 tablet by ity of tablet 00:00: mouth [place] 00 every 6 Medical (six) Branch hours as needed for Pain (scale 1-3) or Pain (scale 4-6). ondansetron 0 Yes [id number] 4mg Take 1 [facility] 4 mg 9-06 tablet by ity of disintegrat 00:00: mouth [place] ing tablet 00 every 8 Medica l (eight) Branch hours as needed for Nausea and Vomiting (N/V). proMETHazin 2021-0 Yes [id number] 25mg Take 1 [facility] 25 mg 9-06 tablet by ity of tablet 00:00: mouth [place] 00 every 6 Medical (six) Branch hours as needed for N/V unresponsi ve to Ondansetro n. ketorolac 2021-0 Yes [id number] 10mg Take 1 [facility] man[facility] 10 mg 9-06 tablet by ity of tablet 00:00: mouth [place] 00 every 6 Medical (six) Branch hours as needed for Pain (scale 1-3) or Pain (scale 4-6). ondansetron 2021-0 2022- No [id number] 4mg Take 1 [facility] 4 mg 04-16- tablet by [facility]y of disintegrat 00:00: 00:00 [place] tablet 00 :00 every 8 Medica l (eight) Branch hours as needed for Nausea and Vomiting (N/V). proMETHazin 2022- No [id number] 25mg Take 1 [facility] 25 mg 04-16- tablet by ity of tablet 00:00: 00:00 mouth [place] 00 :00 every 6 Medical (six) Branch hours as needed for N/V unresponsi ve to Ondansetro n. ketorolac 2021-0 2022- No [id number] 10mg Take 1 [facility] nivers 10 mg 04-16- tablet by ity of tablet 00:00: 00:00 mouth [place] 00 :00 every 6 Medical (six) Branch hours as needed for Pain (scale 1-3) or Pain (scale 4-6). ondansetron 2021-0 2022- No [id number] 4mg Take 1 [facility] 4 mg -01 09-19 tablet by [facility] of disintegrat 00:00: 00:00 mouth [place] tablet 00 :00 every 8 Medica l (eight) Branch hours as needed for Nausea and Vomiting (N/V). proMETHazin 0 2022- No [id number] 25mg Take 1 [facility] 25 mg -01 09- tablet by ity of tablet 00:00: 00:00 mouth [place] 00 :00 every 6 Medical (six) Branch hours as needed for N/V unresponsi ve to Ondansetro n. ketorolac 2022- No [id number] 10mg Take 1 [facility] nivers 10 mg 04-16 tablet by ity of tablet 00:00: 00:00 mouth [place] 00 :00 every 6 Medical (six) Branch hours as needed for Pain (scale 1-3) or Pain (scale 4-6). cephALEXin 2021- No [id number] 500mg Take 1 [facility] (KEFLEX) 04-16 capsule [...] 7 days. Indication s: acute pain HYDROcodone 2021-2021- No [id number] 1{tbl} Take 1-2 [facility] -acetaminop 04-16 tablets by i ty of hen 5-325 00:00: 04:59 mouth [place] mg tablet 00 :00 every 6 Medical (six) Branch hours as needed for Pain (scale 4-6) for up to 7 days. Indication s: acute pain tamsulosin 2021-2021- No .4mg QD Take 1 [...] times capsule daily for 7 days. nitrofurant 2021- No 100mg Q.5D Take [address] [facility], 04-06 capsule [facility]: 23:59 (100 mg Me dical l-monohydra 00 :00 total) by [facility], mouth 2 (MACROBID) (two) 100 MG times capsule daily for 7 days. nystatin 2021- No [id number] Q.25D Take [address] [facility] (MYCOSTATIN 04-06 (500,000 Ernesto es ) 100,000 00:00: 23:59 Units Medica l unit/mL 00 :00 total) by Center suspension mouth 4 (four) times daily for 5 days. nystatin 2021- No [id number] Q.25D Take [address] [facility] (MYCOSTATIN [...] 100mg Take [address] dine 04-06-30 tablet [facility] (Pyridium) 00:00: 23:59 (100 mg Med ical 100 MG 00 :00 total) by Center tablet mouth 3 (three) times daily as needed for up to 3 days. divalproex 2021- No 500mg Take 500 U nivers 500 mg EC 8-26 08-26 mg by ity of tablet 14:54: 00:00 mouth [place] 13 :00 every 12 Medical (twelve) Branch hours. vilazodone 0 2021- No Take by [facility] vers 40 mg 8-26 08-26 mouth ity of tablet 14:54: 00:00 daily. [place] 13 :00 Medical Branch vilazodone 2021-0 Yes [id number] 40mg Take 1 U nivers 40 mg 8-26 tablet by ity of tablet 00:00: mouth in [place] 00 the Medical morning. Branch vilazodone 2021-0 Yes [id number] 40mg Take 1 [facility] nivers 40 mg 8-26 tablet by ity of tablet 00:00: mouth in [place] 00 the Medical morning. Branch vilazodone 2021-0 Yes [id number] 40mg Take 1 [facility] nivers 40 mg 8-26 tablet by ity of tablet 00:00: mouth in [place] 00 the Medical morning. Branch vilazodone 2021-0 Yes [id number] 40mg Take 1 [facility] nivers 40 mg 8-26 tablet by ity of tablet 00:00: mouth in [place] 00 the Medical morning. Branch vilazodone 2-0 Yes [id number] 40mg Take 1 U nivers 40 mg 8-26 tablet by ity of tablet 00:00: mouth in [place] 00 the Medical morning. Branch divalproex 2022-0 Yes [id number] 500mg Take 1 [facility] 500 mg EC 8-26 tablet by ity o f tablet 00:00: mouth [place] 00 every 12 Medical (twelve) Branch hours. vilazodone 2022-0 Yes [id number] 40mg Take 1 [facility] nivers 40 mg 8-26 tablet by ity of tablet 00:00: mouth in [place] 00 the Medical morning. Branch divalproex 2-0 Yes [id number] 500mg Take 1 [facility] 500 mg EC 8-26 tablet by ity o f tablet 00:00: mouth [place] 00 every 12 Medical (twelve) Branch hours. vilazodone 2-0 Yes [id number] 40mg Take 1 [facility] nivers 40 mg 8-26 tablet by ity of tablet 00:00: mouth in [place] 00 the Medical morning. Branch divalproex 2-0 Yes [id number] 500mg Take 1 [facility] 500 mg EC 8-26 tablet by ity o f tablet 00:00: mouth [place] 00 every 12 Medical (twelve) Branch hours. vilazodone 2-0 Yes [id number] 40mg Take 1 [facility] nivers 40 mg 8-26 tablet by ity of tablet 00:00: mouth in [place] 00 the Medical morning. Branch divalproex 2-0 Yes [id number] 500mg Take 1 [facility] 500 mg EC 8-26 tablet by ity o f tablet 00:00: mouth [place] 00 every 12 Medical (twelve) Branch hours. vilazodone 2-0 Yes [id number] 40mg Take 1 [facility] nivers 40 mg 8-26 tablet by ity of tablet 00:00: mouth in [place] 00 the Medical morning. Branch vilazodone 2022-0 Yes [id number] 40mg Take 1 [facility] nivers 40 mg 8-26 tablet by ity of tablet 00:00: mouth in [place] 00 the Medical morning. Branch vilazodone 2022-0 Yes [id number] 40mg Take 1 [facility] nivers 40 mg 8-26 tablet by ity of tablet 00:00: mouth in [place] 00 the Medical morning. Branch vilazodone 2-0 Yes [id number] 40mg Take 1 [facility] nivers 40 mg 8-26 tablet by ity of tablet 00:00: mouth in [place] the Medical morning. Branch vilazodone 2-0 Yes [id number] 40mg Take 1 U nivers 40 mg 8-26 tablet by ity of tablet 00:00: mouth in [place] the Medical morning. Branch vilazodone 2-0 Yes [id number] 40mg Take 1 [facility] nivers 40 mg 8-26 tablet by ity of tablet 00:00: mouth in [place] the Medical morning. Branch vilazodone 2021-0 Yes [id number] 40mg Take 1 [facility] nivers 40 mg 8-26 tablet by ity of tablet 00:00: mouth in [place] the Medical morning. Branch vilazodone 2021-0 Yes [id number] 40mg Take 1 [facility] nivers 40 mg 8-26 tablet by ity of tablet 00:00: mouth in [place] the Medical morning. Branch vilazodone 2021-0 Yes [id number] 40mg Take 1 [facility] nivers 40 mg 8-26 tablet by ity of tablet 00:00: mouth in [place] the Medical morning. Branch vilazodone 2021-0 Yes [id number] 40mg Take 1 U nivers 40 mg 8-26 tablet by ity of tablet 00:00: mouth in [place] the Medical morning. Branch vilazodone 2021-0 Yes [id number] 40mg Take 1 [facility] nivers 40 mg 8-26 tablet by ity of tablet 00:00: mouth in [place] the Medical morning. Branch vilazodone 2021-0 Yes [id number] 40mg Take 1 [facility] nivers 40 mg 8-26 tablet by ity of tablet 00:00: mouth in [place] the Medical morning. Branch vilazodone 2021-0 Yes [id number] 40mg Take 1 [facility] nivers 40 mg 8-26 tablet by ity of tablet 00:00: mouth in [place] the Medical morning. Branch vilazodone 2-0 Yes [id number] 40mg Take 1 [facility] nivers 40 mg 8-26 tablet by ity of tablet 00:00: mouth in [place] the Medical morning. Branch vilazodone 2-0 Yes [id number] 40mg Take 1 [facility] nivers 40 mg 8-26 tablet by ity of tablet 00:00: mouth in [place] the Medical morning. Branch vilazodone 2021-0 Yes [id number] 40mg Take 1 U nivers 40 mg 8- tablet by ity of tablet 00:00: mouth in [place] 00 the Medical morning. Branch vilazodone 2021-0 3- No [id number] 40mg Take 1 [facility] 40 mg 8-06 10- tablet by ity of tablet 00:00: 00:00 mouth in [place] 00 :00 the Medical morning. Branch vilazodone 2021-0 3- No [id number] 40mg Take 1 [facility] 40 mg 8-26 - tablet by ity of tablet 00:00: 00:00 mouth in [place] 00 :00 the Medical morning. Branch divalproex 2021-0 2021- No [id number] 500mg Take 1 [facility] 500 mg EC [...] per tablet daily for 7 days. amoxicillin 2021-2021- No 1{tbl} Q.5D Take [...] days. Max Daily Amount: 200 mg phenazopyri 2021-2021- No 100mg Take 1 [facility] [...] up to 5 days. cefdinir 2021- No [id number] 600mg Take 2 U nivers 300 mg 03-29 capsules ity of capsule 00:00: 04:59 by mouth [place] 00 :00 in the [facility] morning Branch for 7 days. tamsulosin 2021- [...] 1{tbl} Take [address] -acetaminop 8-06 18-21 tablet by Marilyn post (NORCO 00:00: 23:59 [...] QD Take [address] ate 8- 08-16 tablets by [place] (SENOKOT S) 00:00: 23:59 [...] [facility] ate 8-11 08-16 tablets by [facility] (SENOKOT S) 00:00: 23:59 mouth Medi [place] 8.6-50 mg 00 :00 nightly Center per tablet for 5 days. phenazopyri 2021-0 2021- No 100mg Take [address] [facility]ine 03-2114 tablet [facility] (PYRIDIUM) 00:00: 23:59 (100 mg [...] 50mg Take [address] [facility] (ULTRAM) 50 03-1414 tablet (50 [facility] mg tablet 00:00: 23:59 mg total) Me dical 00 :00 by mouth Center every 6 (six) hours as needed for Pain for up to 10 days. Max Daily Amount: 200 mg oxybutynin 2021-2021- No 5mg Take [address] [facility] (DITROPAN) 03-14- tablet (5 Ernesto es 5 MG tablet [...] 100mg Take [address] [facility]ine 03-14-11 tablet [facility] (PYRIDIUM) 00:00: 00:00 (100 mg Med ical 100 MG 00 :00 total) by Center tablet mouth 3 (three) times daily as needed for Pain for up to 3 days. ketorolac 2021- No 10mg Take 1 [facility] (TORADOL) 03-14- tablet (10 Ernesto es 10 mg 00:00: [...] Pain for up to 3 days. amoxicillin 2021- No 1{tbl} Q.5D [...] Flank pain Apply 0.[address] [facility] [facility] e 7-22 09-09 grams [facility] (LOTRIMIN) 00:00: 00:00 twice [...] tablet daily for 3 days. proMETHazin Yes [id number] 25mg Insert 1 [facility] e 25 mg 6-07 Suppos[facility] suppository 00:00: [place] rectum Medical every 4 Branch (four) hours as needed for Nausea and Vomiting (N/V). proMETHazin Yes [id number] 25mg Insert 1 [facility] e 25 mg 6-07 Suppositor ity of suppository 00:00: [place] rectum Medical every 4 Branch (four) hours as needed for Nausea and Vomiting (N/V). proMETHazin Yes [id number] 25mg Insert 1 [facility] e 25 mg 6-07 Suppositor ity of suppository 00:00: y [place] rectum Medical every 4 Branch (four) hours as needed for Nausea and Vomiting (N/V). proMETHazin Yes [id number] 25mg Insert 1 [facility] e 25 mg 6-07 Suppositor ity of suppository 00:00: y [place] rectum Medical every 4 Branch (four) hours as needed for Nausea and Vomiting (N/V). proMETHazin Yes [id number] 25mg Insert 1 [facility] e 25 mg 6-07 Suppositor it[facility] of suppository 00:00: y [place] rectum Medical every 4 Branch (four) hours as needed for Nausea and Vomiting (N/V). proMETHazin Yes [id number] 25mg Insert 1 [facility] e 25 mg 6-07 Suppositor ity of suppository 00:00: y [place] rectum Medical every 4 Branch (four) hours as needed for Nausea and Vomiting (N/V). proMETHazin Yes [id number] 25mg Insert 1 [facility] e 25 mg 6-07 Suppositor ity of suppository 00:00: y [place] rectum Medical every 4 Branch (four) hours as needed for Nausea and Vomiting (N/V). proMETHazin Yes [id number] 25mg Insert 1 [facility] e 25 mg 6-07 Suppositor ity of suppository 00:00: y [place] rectum Medical every 4 Branch (four) hours as needed for Nausea and Vomiting (N/V). proMETHazin Yes [id number] 25mg Insert 1 [facility] e 25 mg 6-07 Suppositor ity of suppository 00:00: y [place] rectum Medical every 4 Branch (four) hours as needed for Nausea and Vomiting (N/V). proMETHazin Yes [id number] 25mg Insert 1 [facility] e 25 mg 6-07 Suppositor ity of suppository 00:00: y [place] rectum Medical every 4 Branch (four) hours as needed for Nausea and Vomiting (N/V). proMETHazin Yes [id number] 25mg Insert 1 [facility] e 25 mg 6-07 Suppositor ity of suppository 00:00: y [place] rectum Medical every 4 Branch (four) hours as needed for Nausea and Vomiting (N/V). proMETHazin Yes [id number] 25mg Insert 1 [facility] e 25 mg 6-07 Suppositor ity of suppository 00:00: y [place] rectum Medical every 4 Branch (four) hours as needed for Nausea and Vomiting (N/V). proMETHazin Yes [id number] 25mg Insert 1 [facility] e 25 mg 6-07 Suppositor ity of suppository 00:00: y [place] rectum Medical every 4 Branch (four) hours as needed for Nausea and Vomiting (N/V). proMETHazin Yes [id number] 25mg Insert 1 [facility] e 25 mg 6-07 Suppositor ity of suppository 00:00: y [place] rectum Medical every 4 Branch (four) hours as needed for Nausea and Vomiting (N/V). proMETHazin Yes [id number] 25mg Insert 1 [facility] e 25 mg 6-07 Suppositor ity of suppository 00:00: y [place] rectum Medical every 4 Branch (four) hours as needed for Nausea and Vomiting (N/V). proMETHazin Yes [id number] 25mg Insert 1 [facility] e 25 mg 6-07 Suppositor ity of suppository 00:00: y [place] rectum Medical every 4 Branch (four) hours as needed for Nausea and Vomiting (N/V). proMETHazin Yes [id number] 25mg Insert 1 [facility] e 25 mg 6-07 Suppositor ity of suppository 00:00: y [place] rectum Medical every 4 Branch (four) hours as needed for Nausea and Vomiting (N/V). proMETHazin Yes [id number] 25mg Insert 1 [facility] e 25 mg 6-07 Suppositor ity of suppository 00:00: y [place] rectum Medical every 4 Branch (four) hours as needed for Nausea and Vomiting (N/V). proMETHazin Yes [id number] 25mg Insert 1 [facility] e 25 mg 6-07 Suppositor ity of suppository 00:00: y [place] rectum Medical every 4 Branch (four) hours as needed for Nausea and Vomiting (N/V). proMETHazin Yes [id number] 25mg Insert 1 [facility] e 25 mg 6-07 Suppositor ity of suppository 00:00: [place] rectum Medical every 4 Branch (four) hours as needed for Nausea and Vomiting (N/V). proMETHazin 2022- No [id number] 25mg Insert 1 [facility] e 25 mg 6-07 -19 Suppositor ity o f suppository 00:00: 00:00 y into [place] 00 :00 rectum Medical every 4 Branch (four) hours as needed for Nausea and Vomiting (N/V). proMETHazin 2022- No [id number] 25mg Insert 1 [facility] e 25 mg 6-02 08-19 Suppositor ity o f suppository 00:00: 00:00 y into [place] 00 :00 rectum Medical every 4 Branch (four) hours as needed for Nausea and Vomiting (N/V). sulfamethox 2021- No 160mg{t Q.5D Take [address] [facility] azole-trime 6 06-09 rimetho tablet Marilyn kes thoprim 00:00: [...] mg tabs (1tab q12 D10). ketorolac 2021-0 2- No 10mg Take 1 [facility] (TORADOL) -09 16-07 tablet (10 Ernesto es 10 mg 00:00: [...] 5 days. phenazopyri 2021-0 2021- No 200mg Q.[id number] Take [address] [facility] dine - 06-04 [id number] tablet [facility] (PYRIDIUM) 00:00: 23:59 3D (200 mg Med ical 200 MG 00 :00 total) by Center tablet mouth 3 (three) times daily for 2 days. phenazopyri 2021-0 2021- No 200mg Q.31053030 Take [address] [facility] dine -09 16-04 [id number] tablet [facility] (PYRIDIUM) 00:00: 23:59 3D (200 mg Med ical 200 MG 00 :00 total) by Center tablet mouth 3 (three) times daily for 2 days. HYDROcodone 2021-2021- No 1{tbl} Take [address] -acetaminop 5-29 06-08 tablet by Marilyn post (Whi) 00:00: 23:59 mouth Medi darren 5-325 mg 00 :00 every 6 Center per tablet (six) hours as needed for Pain for up to 10 days. Max Daily Amount: 4 tablets HYDROcodone 2021-0 2021- No 1{tbl} Take [address] -acetaminop 5-29 06-08 tablet by Marilyn post (Whi) 00:00: 23:59 mouth Medi darren 5-325 mg [...] Q.5D Take [address] [facility], 01-04- capsule [facility] macrocrysta 00:00: 23:59 (100 mg [...] Q.5D Take [address] -clavulanat -28 12-27 tablet by Marilyn kes e 00:00: 00:00 mouth 2 Medical (AUGMENTIN) 00 :00 (two) Center 875-125 mg times per tablet daily for 7 days. amoxicillin 2021- No 1{tbl} Q.5D Take [address] -clavulanat 5-20 05-27 tablet by Marilyn lal e 00:00: 00:00 mouth 2 Medical (AUGMENTIN) [...] Center tablets by mouth at night. pancrelipas 2022-0 2022- No [id number]{ Take [facility], 5-17 05-17 lipase} 12,000 [facility] Lip-Prot-Am 08:29: 00:00 units of M edical yl, (CREON) 32 :[address] 12,000-38,0 mouth 3 00 -60,000 (three) unit CpDR times capsule daily with meals. pancrelipas 2021-0 2022- No [id number]{ Take [facility], 5-17 05-17 lipase} 12,000 [facility] Lip-Prot-Am 08:29: 00:00 units of M edical yl, (CREON) 32 :[address] 12,000-38,0 mouth 3 00 -60,000 (three) unit CpDR times capsule daily with meals. metoclopram 2-0 2022- No 5mg Take [address] [facility] teresa 5-17 05-17 by mouth 3 [facility] (REGLAN) 5 08:29: 00:00 (three) Med ical MG tablet 11 :00 times Center daily with meals. metoclopram 2-0 2022- No 5mg Take [address] [facility] teresa 5-17 05-17 by mouth 3 [facility] (REGLAN) 5 08:29: 00:00 (three) Med ical MG tablet 11 :00 times Center daily with meals. lisdexamfet 2022-0 2022- No 50mg QD Take [address] [facility] amine 5-17 05-17 by mouth [facility] (VYVANSE) 08:29: 00:00 every Medica l 50 MG 05 :00 morning. Center capsule lisdexamfet 2022-0 2022- No 50mg QD Take [address] [facility] amine 5-17 05-17 by mouth [facility] (VYVANSE) 08:29: 00:00 every Medica l 50 MG 05 :00 morning. Center capsule escitalopra 2022-0 2022- No 20mg QD Take [address] [facility] m oxalate 5-17 05-17 by mouth [facility] (LEXAPRO) 08:28: 00:00 daily. Medic al 20 MG 52 :00 Center tablet escitalopra 2022-0 2022- No 20mg QD Take 20 mg [...] [facility] en-codeine 5-17 05-17 tablet by Ernetso es (Tylenol-Co 00:00: 00:00 mouth Medi darren [...] 10 mg 00 :00 Center tablet divalproex 0 Yes 500mg Take 500 [facility] [...] times Center daily with meals. pancrelipas Yes [id number]{ Take [facility], 1-04 lipase} 12,000 [facility] Lip-Prot-Am 13:56: units of Me dical yl, (CREON) [address] 12,000-38,0 mouth 3 00 -60,000 (three) unit CpDR times capsule daily with meals. lisdexamfet 2-0 Yes 50mg QD Take [address] [facility] amine 1-04 by mouth [facility] (VYVANSE) 13:56: every Medical 50 MG 53 morning. Center capsule cloNIDine 2022-0 Yes .1mg QD Take 0.[address] [facility] HCl 1-04 mg by [facility] (CATAPRES) 13:56: mouth Medica l 0.1 MG 53 daily. Center tablet ondansetron 2-0 Yes 4mg Take [address] (ZOFRAN) 4 1-04 by mouth 2 Ernesto es MG tablet 13:56: (two) Medical 53 times Center daily as needed for Nausea. ondansetron 2022-0 Yes 4mg Take 4 mg [facility] [...] 53 times Center daily with meals. pancrelipas 2-0 Yes [id number]{ Take [facility], 1-04 lipase} 12,000 [...] Take 1 [facility] (TORADOL) - 11-15 tablet (10 Ernesto es 10 mg 00:00: 23:59 mg total) Medica l tablet 00 :00 by mouth 3 Center (three) times daily as needed for Pain for up to 5 days. ketorolac 2020-08- No 10mg Take 1 [facility] (TORADOL) -10 11-15 tablet (10 Ernesto es 10 mg [...] 160mg{t Q.5D Take [address] [facility] azole-trime 08-2013 rimetho tablet Marilyn kes thoprim 00:00: 23:59 prim} (160 mg of Me dical (BACTRIM 00 :00 trimethopr Cente r DS) 800-160 im total) mg per by mouth 2 tablet (two) times daily for 3 days smx-tmp DS (BACTRIM) 800-160 mg tabs (1tab q12 D10). [facility] [facility] mg tablet 0-20 [facility] 00:[facility]: Medical 00 [facility] 2020-[address] [facility] mg tablet 0-20 [facility] 00:[facility]: Medical 00 [facility] 2020-08 Yes 20mg QD Take [address] mg tablet 0-20 by mouth [facility] 00:[facility]: daily . Medical [address] [place] [address] 2020-08 Yes 20mg QD Take [address] mg tablet 0-20 by mouth [facility] 00:[facility]: daily . [address] ondansetron 0 Yes 4mg Q8H Take 1 Meth royce ODT (Zofran 6-30 tablet (4 st ODT) 4 MG 00:00: mg total) [facility] disintegrat 00 by mouth l ing tablet every 8 (eight) hours as needed for nausea or vomiting. ondansetron 2020-0 Yes 4mg Q8H Take 1 Meth royce ODT (Zofran 6-30 tablet (4 st ODT) 4 MG 00:00: mg total) [facility] disintegrat 00 by mouth l ing tablet every 8 (eight) hours as needed for nausea or vomiting. ondansetron 2020-0 Yes 4mg Q8H Take 1 Meth royce ODT (Zofran 6-30 tablet (4 st ODT) 4 MG 00:00: mg total) [facility] disintegrat 00 by mouth l ing tablet every 8 (eight) hours as needed for nausea or vomiting. ondansetron 2020-0 Yes 4mg Q8H Take 1 Meth royce ODT (Zofran 6-30 tablet (4 st ODT) 4 MG 00:00: mg total) [facility] disintegrat 00 by mouth l ing tablet every 8 (eight) hours as needed for nausea or vomiting. ondansetron 2020-0 Yes 4mg Q8H Take 1 Meth royce ODT (Zofran 6-30 tablet (4 st ODT) 4 MG 00:00: mg total) [facility] disintegrat 00 by mouth l ing tablet every 8 (eight) hours as needed for nausea or vomiting. ondansetron 2020-0 Yes 4mg Q8H Take 1 Meth royce ODT (Zofran 6-30 tablet (4 st ODT) 4 MG 00:00: mg total) [facility] disintegrat 00 by mouth l ing tablet every 8 (eight) hours as needed for nausea or vomiting. pantoprazol 2020-0 2020- No 40mg QD Take 1 [facility] 6-30 07-15 tablet (40 st (Protonix) 00:00: 04:59 mg total) [facility] 40 MG EC 00 :00 by mouth l tablet daily for 14 days. pantoprazol 2020- No 40mg QD Take 1 [facility] e 02-07-15 tablet (40 st (Protonix) 00:00: 04:59 mg total) [facility] 40 MG EC 00 :00 by mouth l tablet daily for 14 days. pantoprazol 2020- No 40mg QD Take 1 [facility] e 02-07-15 tablet (40 st (Protonix) 00:00: 04:59 mg total) [facility] 40 MG EC 00 :00 by mouth l tablet daily for 14 days. sucralfate 2020- No 1g Q.25D Take 10 mL [facility] (Carafate) 02-07- ([address] 100 mg/mL 00:00: 04:59 total) by [facility] suspension 00 :00 mouth 4 l (four) times a day with meals and nightly for 10 days. sucralfate 2020- No 1g Q.25D Take 10 mL [facility] (Carafate) 02-07- ([address] 100 mg/mL 00:00: 04:59 total) by [facility] suspension 00 :00 mouth 4 l (four) times a day with meals and nightly for 10 days. sucralfate 2020- No 1g Q.25D Take 10 mL [facility] (Carafate) 02-07- ([address] 100 mg/mL 00:00: 04:59 total) by [facility] suspension 00 :00 mouth 4 l (four) times a day with meals and nightly for 10 days. famotidine 2020- No 20mg Q24H Take 20 [...] ta 00 times a l day. ergocalcife Yes [id number] Q7D Take Meth royce rol 4-25 50,000 [address] (VITAMIN 20:24: Units by Hospi ta D2) 50,000 00 mouth once l unit a week. ( capsule No set day of the week ) divalproex 0 Yes 500mg QD Take 500 [facility] (DEPAKOTE) 4-[address] 500 MG EC 20:24: mouth [facility]ospita tablet 00 nightly. l divalproex 0 Yes 250mg QD Take 250 [facility] (DEPAKOTE) 4-[address] 250 MG EC 20:24: mouth [facility]osp[facility] tablet 00 every l morning. lipase-prot Yes 1{capsu Q.18946960 Take 1 [facility] ease-amylas 4-25 le} [id number] capsule by st e (CREON) 20:24: 3D [...] 03 :00 needed for l heartburn. ondansetron 2021-0 Yes 4mg Q12H Take 4 mg M [facility] (ZOFRAN) 4 4-[address] MG tablet 15:24: every 12 [facility] 00 (twelve) l hours as needed for nausea or vomiting. clonAZEPAM 2021-0 Yes 1mg Q.5D Take 1 mg [facility] (KlonoPIN) 4-[address] 1 MG tablet 15:24: (two) Hospi ta 00 times a l day. ergocalcife 2021-0 Yes [id number] Q7D Take Meth royce rol 4-25 50,000 st (VITAMIN 15:24: Units by Hospi ta D2) 50,000 00 mouth once l unit a week. ( capsule No set day of the week ) divalproex 2020-0 Yes 500mg QD Take 500 [facility] (DEPAKOTE) 4-[address] 500 MG EC 15:24: mouth [facility]ospita tablet 00 nightly. l divalproex 202-0 Yes 250mg QD Take 250 [facility] (DEPAKOTE) 4-[address] 250 MG EC 15:24: mouth [facility]osp[facility] tablet 00 every l morning. lipase-prot 2020-0 Yes 1{capsu Q.16186824 Take 1 [facility] ease-amylas 4-25 le} [id number] capsule by st e (CREON) 15:24: 3D [...] times a l day. ergocalcife 2021-0 Yes [id number] Q7D Take Meth royce rol 4-25 50,000 [...] every l morning. lipase-prot 2020-0 Yes 1{capsu Q.89509554 Take 1 [facility] ease-amylas 4-25 le} [id number] capsule by st e (CREON) 15:24: 3D [...] as needed for nausea or vomiting. clonAZEPAM 1-0 Yes 1mg Q.5D Take 1 mg [facility] (KlonoPIN) 4-[address] 1 MG tablet 15:24: (two) Hospi ta 00 times a l day. ergocalcife 2021-0 Yes [id number] Q7D Take Meth royce rol 4-25 50,000 st (VITAMIN 15:24: Units by Hospi ta D2) 50,000 00 mouth once l unit a week. ( capsule No set day of the week ) divalproex 2021-0 Yes 500mg QD Take 500 [facility] (DEPAKOTE) 4-[address] 500 MG EC 15:24: mouth [facility]ospita tablet 00 nightly. l divalproex 0 Yes 250mg QD Take 250 [facility] (DEPAKOTE) 4-[address] 250 MG EC 15:24: mouth [facility]osp[facility] tablet 00 every l morning. lipase-prot 2020-0 Yes 1{capsu Q.74673287 Take 1 [facility] ease-amylas 4-25 le} [id number] capsule by st e (CREON) 15:24: 3D [...] times a l day. ergocalcife 0 Yes [id number] Q7D Take Meth royce rol 4-25 50,000 st (VITAMIN 15:24: Units by Hospi ta D2) 50,000 00 mouth once l unit a week. ( capsule No set day of the week ) divalproex 0 Yes 500mg QD Take 500 [facility] (DEPAKOTE) 4-[address] 500 MG EC 15:24: mouth [facility]ospita tablet 00 nightly. l divalproex 0 Yes 250mg QD Take 250 [facility] (DEPAKOTE) 4-[address] 250 MG EC 15:24: mouth [facility]osp[facility] tablet 00 every l morning. lipase-prot 2020-0 Yes 1{capsu Q.52655140 Take 1 [facility] ease-amylas 4-25 le} [id number] capsule by st e (CREON) 15:24: 3D [...] times a l day. ergocalcife 2020-0 Yes [id number] Q7D Take Meth royce rol 4-25 50,000 [...] every l morning. lipase-prot 2020-0 Yes 1{capsu Q.02371641 Take 1 [facility] ease-amylas 4-25 le} [id number] capsule by st e (CREON) 15:24: 3D [...] day for 30 days. traMADoL 2020- No [id number] 50mg Q6H Take 1 [facility] di (Ultram) 50 -25 05-03 tablet (50 s t mg tablet 00:00: 04:59 mg total) [facility] 00 :00 by mouth l every 6 (six) hours as needed for moderate pain for up to 7 days .acute pain. traMADoL 2020- No [id number] 50mg Q6H Take 1 Metho di (Ultram) 50 - 05-03 tablet (50 s t mg tablet 00:00: 04:59 mg total) [facility] 00 :00 by mouth l every 6 (six) hours as needed for moderate pain for up to 7 days .acute pain. traMADoL 2020- No [id number] 50mg Q6H Take 1 [facility] di (Ultram) 50 - 05-03 tablet (50 s t mg tablet [...] (IMITREX) 12-01- by mouth st 50 MG 13:40: [...] a l day. metoclopram 2020- No 5mg Q.73492759 Take 5 mg [facility] teresa -01 12- [id number] by mouth 3 st (REGLAN) 5 13:39: 00:00 3D (three) [facility] MG tablet 38 :00 times a l day as needed (for GERD). lamoTRIgine 2020- No 200mg QD Take 200 [facility] (LaMICtal) - 04-[address] 200 MG 13:39: 00:00 mouth [facility]ospita tablet 27 :00 every l morning. fesoterodin 2020- No 4mg QD Take 4 mg [facility] e (TOVIAZ) 12-01-[address] 4 mg tablet 13:39: [...] 150mg QD Take 150 [facility] XL -01 12-[address] (WELLBUTRIN 13:36: 00:00 mouth [...] a l day. metoclopram 2020- No 5mg Q.06633073 Take 5 mg [facility] teresa 12-01 [id number] by mouth [address] (REGLAN) 5 08:39: 00:00 3D (three) [facility] MG tablet 38 :00 times a l day as needed (for GERD). metoclopram 2020- No 5mg Q.60237955 Take 5 mg [facility] teresa 12-01 [id number] by mouth [address] [facility] (REGLAN) 5 08:39: [...] tablet 27 :00 every l morning. fesoterodin 2020-2020- No 4mg QD Take 4 mg [facility] [...] QD Take 40 mg [facility] n (LIPITOR) 11-30- by mouth st 40 MG 21:56: 00:00 daily. Hospita tablet 25 :00 l atorvastati 2020- No 40mg QD Take 40 mg [facility] (LIPITOR) 11-30-[address] 40 MG 16:56: 00:00 daily. [facility]ospita tablet 25 :00 l atorvastati 2020-0 2021- No 40mg QD Take 40 mg [facility] n (LIPITOR) -30 11- by mouth st 40 MG 16:56: 00:00 daily. Hospita tablet 25 :00 l metronidazo 2019-0 No take 4 [facility] le 500 mg 9-22 tablet by ealth tablet 00:00: oral route 00 once per day as a one time dose metronidazo 2019-0 No take 4 [facility] le 500 mg 9-22 tablet by ealth tablet 00:00: oral route 00 once per day as a one time dose metronidazo 2019-0 No take 4 [facility] le 500 mg 9-22 tablet by ealth tablet 00:00: oral route 00 once per day as a one time dose metronidazo 2019-0 No take 4 [facility] le 500 mg 9-22 tablet by ealth tablet 00:00: oral route 00 once per day as a one time dose metronidazo 2019-0 No take 4 [facility] le 500 mg 9-22 tablet by ealth tablet 00:00: oral route 00 once per day as a one time dose ondansetron 2020- No 4mg Take [address] [facility] (ZOFRAN-ODT 8-24 08-29 tablet (4 Marilyn kes ) 4 [...] 51 times Center daily with meals. pancrelipas Yes [id number]{ Take [facility], 9-23 lipase} 12,000 [facility] Lip-Prot-Am 11:36: units of Me dical yl, (CREON) [address] 12,000-38,0 mouth 3 00 -60,000 (three) unit CpDR times capsule daily with meals. lisdexamfet 2018-0 Yes 50mg QD Take [address] [facility] amine 9-23 by mouth [facility] (VYVANSE) 11:36: every Medical 50 MG 51 morning. Center capsule cloNIDine 2018- Yes .1mg QD Take 0.[address] HCl 9-23 mg by [facility] (CATAPRES) 11:36: mouth Medica l 0.1 MG 51 daily. Center tablet ondansetron Yes 4mg Take [address] (ZOFRAN) 4 05-03 by mouth 2 Ernesto es MG tablet 11:36: (two) Medical 51 times Center daily as needed for Nausea. ondansetron Yes 4mg Take [address] (ZOFRAN-ODT 05-03 by mouth Luke s ) 4 MG 11:36: every 8 Medical disintegrat 51 (eight) Cente r ing tablet hours as needed for Nausea. fexofenadin 2020- No Seasonal 1{tbl} Q.5D Take [address] [facility]-pseudoeph 05-03 allergic tablet by Luhali edrine 00:00: 23:59 rhinitis, mouth 2 Me dical (REJI-D) 00 :00 unspecified (two) Center 60-120 mg trigger times per tablet daily. promethazin 2015-08 Yes every [address] [facility] - ([facility]) [facility] (PHENERGAN) 00:00: hours as Me dical 25 MG 00 needed . Center tablet promethazin 2015-08 Yes every [address] [facility] -27 (eight) [facility] (PHENERGAN) 00:00: hours as Me dical 25 MG 00 needed . Center tablet promethazin 2015-08 Yes every [address] [facility] -27 (eight) [facility] (PHENERGAN) 00:00: hours as Me dical 25 MG 00 needed . Center tablet promethazin 2015-08 Yes every [address] [facility] -27 (eight) [facility] (PHENERGAN) 00:00: hours as Me dical 25 MG 00 needed . Center tablet promethazin 2015-08 Yes every [address] [facility] -27 (eight) [facility] (PHENERGAN) 00:00: hours as Me dical 25 MG 00 needed . Center tablet traMADOL Yes 50mg Take 1 [facility] (ULTRAM) 50 7-30 by mouth ity of mg tablet 00:00: every 6 [place] 00 (six) Medical hours as Branch needed for Pain. traMADOL 2011- Yes 50mg Take 1 Tab [facility] [...] ity of mg tablet 00:00: every 6 [place] 00 (six) Medical hours as Branch needed [...] 00 times Medical tablet daily. Branch traMADOL 2011-0 Yes 50mg Take 1 Tab [facility] (ULTRAM) 50 7-30 by mouth ity of mg tablet 00:00: every 6 [place] 00 (six) Medical hours as Branch needed for Pain. methocarbam 2012-0 Yes 750mg Take 1 Tab [facility] 7-30 by mouth 4 ity of (ROBAXIN) 00:00: (four) [place] 750 mg 00 times Medical tablet daily. Branch traMADOL 2012-0 Yes 50mg Take 1 Tab [facility] (ULTRAM) 50 7-30 by mouth ity of mg tablet 00:00: every 6 [place] 00 (six) Medical hours as Branch needed for Pain. methocarbam 2012-0 Yes 750mg Take 1 Tab [facility] 7-30 by mouth 4 ity of (ROBAXIN) 00:00: (four) [place] 750 mg 00 times Medical tablet daily. Branch traMADOL 2012-0 Yes 50mg Take 1 Tab [facility] (ULTRAM) 50 7-30 by mouth ity of mg tablet 00:00: every 6 [place] 00 (six) Medical hours as Branch needed [...] ity of mg tablet 00:00: every 6 [place] 00 (six) Medical hours as Branch needed for Pain. methocarbam 2012-0 Yes 750mg Take 1 Tab [facility] 7-30 by mouth 4 ity of (ROBAXIN) 00:00: (four) [place] 750 mg 00 times Medical tablet daily. Branch traMADOL 2012-0 Yes 50mg Take 1 Tab [facility] (ULTRAM) 50 7-30 by mouth ity of mg tablet 00:00: every 6 [place] 00 (six) Medical hours as Branch needed for Pain. methocarbam 2012-0 Yes 750mg Take 1 Tab [facility] 7-30 by mouth 4 ity of (ROBAXIN) 00:00: (four) [place] 750 mg 00 times Medical tablet daily. Branch traMADOL 2012-0 Yes 50mg Take 1 Tab [facility] (ULTRAM) 50 7-30 by mouth ity of mg tablet 00:00: every 6 [place] 00 (six) Medical hours as Branch needed for Pain. methocarbam 2012-0 Yes 750mg Take 1 Tab [facility] 7-30 by mouth 4 ity of (ROBAXIN) 00:00: (four) [place] 750 mg 00 times Medical tablet daily. Branch traMADOL 2012-0 Yes 50mg Take 1 Tab [facility] (ULTRAM) 50 7-30 by mouth ity of mg tablet 00:00: every 6 [place] 00 (six) Medical hours as Branch needed for Pain. traMADOL 2012-0 Yes 50mg Take 1 Tab [facility] (ULTRAM) 50 7-30 by mouth ity of mg tablet 00:00: every 6 [place] 00 (six) Medical hours as Branch needed for Pain. traMADOL 2012-0 Yes 50mg Take 1 Tab [facility] (ULTRAM) 50 7-30 by mouth ity of mg tablet 00:00: every 6 [place] 00 (six) Medical hours as Branch needed for Pain. traMADOL 2012-0 Yes 50mg Take 1 Tab [facility] (ULTRAM) 50 7-30 by mouth ity of mg tablet 00:00: every 6 [place] 00 (six) Medical hours as Branch needed for Pain. traMADOL 2011-0 Yes 50mg Take 1 Tab [facility] (ULTRAM) 50 7-30 by mouth ity of mg tablet 00:00: every 6 [place] 00 (six) Medical hours as Branch needed for Pain. traMADOL 2011-0 Yes 50mg Take 1 Tab [facility] (ULTRAM) 50 7-30 by mouth ity of mg tablet 00:00: every 6 [place] 00 (six) Medical hours as Branch needed [...] ity of mg tablet 00:00: every 6 [place] 00 (six) Medical hours as Branch needed for Pain. traMADOL 2011-0 Yes 50mg Take 1 Tab [facility] (ULTRAM) 50 7-30 by mouth ity of mg tablet 00:00: every 6 [place] 00 (six) Medical hours as Branch needed for Pain. traMADOL 2011-0 Yes 50mg Take 1 Tab [facility] (ULTRAM) 50 7-30 by mouth ity of mg tablet 00:00: every 6 [place] 00 (six) Medical hours as Branch needed [...] Time Observation Value Comments Source Systolic blood 2023-03-17 119 mm[Hg] [facility] pressure 03:34:00 Medical Branch Diastolic blood 2023-03-17 82 mm[Hg] [facility] pressure 03:34:00 Medical Branch Heart rate 2023-03-16 93 /min [facility] 23:31:00 Medical Branch Body temperature 2023-03-16 36.89 Anitha [facility] 23:31:00 Medical Branch Respiratory rate 2023-03-16 16 /min [facility] 23:31:00 Medical Branch Body height 2023-03-16 154.9 cm [facility] 23:31:00 Medical Branch Body weight 2023-03-16 104.327 kg [facility] 23:31:00 Medical Branch BMI 2023-03-16 43.46 kg/m2 [facility] 23:31:00 Medical Branch Oxygen saturation in 2023-03-16 100 /min [facility] Arterial blood by 23:31:00 Medical Br anch Pulse oximetry Systolic blood 2023-03-11 131 mm[Hg] [facility] pressure 18:30:00 Medical Branch Diastolic blood 2023-03-11 84 mm[Hg] [facility] pressure 18:30:00 Medical Branch Heart rate 2023-03-11 86 /min [facility] 18:30:00 Medical Branch Body height 2023-03-11 154.9 cm [facility] 18:30:00 Medical Branch Body weight 2023-03-11 103.874 kg [facility] 18:30:00 Medical Branch BMI 2023-03-11 43.27 kg/m2 [facility] 18:30:00 Medical Branch Oxygen saturation in 2023-03-11 95 /min [facility] Arterial blood by 18:30:00 Medical Br anch Pulse oximetry Systolic blood 2023-02-17 131 mm[Hg] [facility] pressure 19:59:00 Medical Branch Diastolic blood 2023-02-17 82 mm[Hg] [place] o [facility] [place] [facility] pressure 19:59:00 Medical Branch Heart rate 2023-02-17 79 /min [facility] 19:59:00 Medical Branch Respiratory rate 2023-02-17 18 /min [facility] 19:59:00 Medical Branch Body height 2023-02-17 154.9 cm [facility] 19:59:00 Medical Branch Body weight 2023-02-17 105.053 kg [facility] 19:59:00 Medical Branch BMI 2023-02-17 43.76 kg/m2 [facility] 19:59:00 Medical Branch Oxygen saturation in 2023-02-17 97 /min [facility] Arterial blood by 19:59:00 Medical Br anch Pulse oximetry Systolic blood 2023-01-14 124 mm[Hg] [facility] pressure 18:28:00 Medical Branch Diastolic blood 2023-01-14 85 mm[Hg] [facility] pressure 18:28:00 Medical Branch Heart rate 2023-01-14 85 /min [facility] 18:28:00 Medical Branch Respiratory rate 2023-01-14 18 /min [facility] 18:28:00 Medical Branch Body height 2023-01-14 154.9 cm [facility] 18:28:00 Medical Branch Body weight 2023-01-14 101.334 kg [facility] 18:28:00 Medical Branch BMI 2023-01-14 42.21 kg/m2 [facility] 18:28:00 Medical Branch Oxygen saturation in 2023-01-14 97 /min [facility] it[facility] Arterial blood by 18:28:00 Medical Br anch Pulse oximetry Systolic blood 2023-01-14 133 mm[Hg] [facility] pressure 01:00:00 Medical Branch Diastolic blood 2023-01-14 73 mm[Hg] [facility] o [facility] [place] [facility] pressure 01:00:00 Medical Branch Heart rate 2023-01-14 77 /min [facility] 01:00:00 Medical Branch Respiratory rate 2023-01-14 12 /min [facility] 01:00:00 Medical Branch Oxygen saturation in 2023-01-14 93 /min [facility] Arterial blood by 01:00:00 Medical Br anch Pulse oximetry Body temperature 2023-01-13 37.5 Anitha [facility] 22:36:00 Medical Branch Body weight 2023-01-13 103.874 kg [facility] 22:36:00 Medical Branch BMI 2023-01-13 43.27 kg/m2 [facility] 22:36:00 Medical Branch Systolic blood 2023-01-02 109 mm[Hg] [facility] pressure 16:10:00 Medical Branch Diastolic blood 2023-01-02 69 mm[Hg] [facility] o [facility] [place] [facility] pressure 16:10:00 Medical Branch Heart rate 2023-01-02 77 /min [facility] 16:10:00 Medical Branch Body height 2023-01-02 154.9 cm [facility] 16:10:00 Medical Branch Body weight 2023-01-02 104.01 kg [facility] 16:10:00 Medical Branch BMI 2023-01-02 43.33 kg/m2 [facility] 16:10:00 Medical Branch Oxygen saturation in 2023-01-02 96 /min [facility] ity [facility] Arterial blood by 16:10:00 Medical Br anch Pulse oximetry Systolic blood 2022-12-24 112 mm[Hg] [facility] pressure 19:44:00 Medical Branch Diastolic blood 2022-12-24 78 mm[Hg] [facility] pressure 19:44:00 Medical Branch Heart rate 2022-12-24 86 /min [facility] 19:44:00 Medical Branch Body height 2022-12-24 154.9 cm [facility] 19:44:00 Medical Branch Body weight 2022-12-24 105.96 kg [facility] 19:44:00 Medical Branch BMI 2022-12-24 44.14 kg/m2 [facility] 19:44:00 Medical Branch Oxygen saturation in 2022-12-24 96 /min [facility] Arterial blood by 19:44:00 Medical Br anch Pulse oximetry HEIGHT 2022-12-20 154.9 cm 07:02:00 WEIGHT 2022-12-20 104.2 kg 07:02:00 HEIGHT 2022-12-20 154.9 cm 07:02:00 WEIGHT 2022-12-20 104.2 kg 07:02:00 HEIGHT 2022-12-06 154.9 cm 08:58:00 WEIGHT 2022-12-06 99.746 kg 08:58:00 HEIGHT 2022-12-06 154.9 cm 08:58:00 WEIGHT 2022-12-06 99.746 kg 08:58:00 Heart rate 2022-11-24 65 /min [facility] 18:25:00 Medical Branch Respiratory rate 2022-11-24 18 /min [facility] 18:25:00 Medical Branch Oxygen saturation in 2022-11-24 99 /min [facility] Arterial blood by 18:25:00 Medical Br anch Pulse oximetry Systolic blood 2022-11-24 107 mm[Hg] [facility] pressure 15:46:00 Medical Branch Diastolic blood 2022-11-24 68 mm[Hg] [place] o [facility] [place] [facility] pressure 15:46:00 Medical Branch Body temperature 2022-11-24 36.44 Anitha [facility] 15:46:00 Medical Branch Body weight 2022-11-24 92.488 kg [facility] 09:18:00 Medical Branch BMI 2022-11-24 38.53 kg/m2 [facility] 09:18:00 Medical Branch Body height 2022-11-22 154.9 cm [facility] 10:57:00 Medical Branch Systolic blood 2022-11-15 122 mm[Hg] [facility] pressure 19:15:00 Medical Branch Diastolic blood 2022-11-15 83 mm[Hg] [place] o [facility] [place] [facility] pressure 19:15:00 Medical Branch Heart rate 2022-11-15 86 /min [facility] 19:15:00 Medical Branch Respiratory rate 2022-11-15 18 /min [facility] 19:15:00 Medical Branch Body weight 2022-11-15 99.973 kg [facility] 19:15:00 Medical Branch BMI 2022-11-15 41.64 kg/m2 [facility] 19:15:00 Medical Branch Oxygen saturation in 2022-11-15 97 /min [facility] Arterial blood by 19:15:00 Medical Br anch Pulse oximetry Systolic blood 2022-11-11 108 mm[Hg] [facility] pressure 19:03:00 Medical Branch Diastolic blood 2022-11-11 72 mm[Hg] [facility] o [facility] [place] [facility] pressure 19:03:00 Medical Branch Heart rate 2022-11-11 83 /min [facility] ex 19:03:00 Medical Branch Body temperature 2022-11-11 36.44 Anitha [facility] 19:03:00 Medical Branch Respiratory rate 2022-11-11 18 /min [facility] 19:03:00 Medical Branch Body height 2022-11-11 154.9 cm [facility] 19:03:00 Medical Branch Body weight 2022-11-11 99.338 kg [facility] 19:03:00 Medical Branch BMI 2022-11-11 41.38 kg/m2 [facility] 19:03:00 Medical Branch Oxygen saturation in 2022-11-11 96 /min [facility] Arterial blood by 19:03:00 Medical Br anch Pulse oximetry Systolic blood 2022-11-05 115 mm[Hg] [facility] pressure 19:36:00 Medical Branch Diastolic blood 2022-11-05 75 mm[Hg] [facility] [place] pressure 19:36:00 Medical Branch Heart rate 2022-11-05 85 /min [facility] 19:36:00 Medical Branch Body temperature 2022-11-05 36.72 Anitha [facility] 19:36:00 Medical Branch Respiratory rate 2022-11-05 20 /min [facility] 19:36:00 Medical Branch Body height 2022-11-05 154.9 cm [facility] 19:36:00 Medical Branch Body weight 2022-11-05 96.435 kg [facility] 19:36:00 Medical Branch BMI 2022-11-05 40.17 kg/m2 [facility] 19:36:00 Medical Branch Oxygen saturation in 2022-11-05 96 /min [facility] Arterial blood by 19:36:00 Medical Br anch Pulse oximetry Systolic blood 2022-11-01 109 mm[Hg] [facility] pressure 15:07:00 Medical Branch Diastolic blood 2022-11-01 74 mm[Hg] [facility] [place] pressure 15:07:00 Medical Branch Heart rate 2022-11-01 76 /min [facility] 15:07:00 Medical Branch Body temperature 2022-11-01 36.67 Anitha [facility] 15:07:00 Medical Branch Body height 2022-11-01 154.9 cm [facility] 15:07:00 Medical Branch Body weight 2022-11-01 97.07 kg [facility] 15:07:00 Medical Branch BMI 2022-11-01 40.43 kg/m2 [facility] 15:07:00 Medical Branch Oxygen saturation in 2022-11-01 96 /min [facility] Arterial blood by 15:07:00 Medical Br anch Pulse oximetry Systolic blood 2022-10-16 107 mm[Hg] [facility] pressure 09:00:00 Medical Branch Diastolic blood 2022-10-16 86 mm[Hg] [facility] [place] pressure 09:00:00 Medical Branch Heart rate 2022-10-16 105 /min [facility] 09:00:00 Medical Branch Respiratory rate 2022-10-16 17 /min [facility] 09:00:00 Medical Branch Oxygen saturation in 2022-10-16 96 /min [facility] Arterial blood by 09:00:00 Medical Br anch Pulse oximetry Body temperature 2022-10-16 36.78 Anitha [facility] 08:26:00 Medical Branch Body weight 2022-10-16 97.523 kg [facility] 08:26:00 Medical Branch BMI 2022-10-16 40.62 kg/m2 [facility] 08:26:00 Medical Branch Systolic blood 2022-10-11 120 mm[Hg] [facility] pressure 20:15:00 Medical Branch Diastolic blood 2022-10-11 71 mm[Hg] [facility] o [facility] [place] [facility] pressure 20:15:00 Medical Branch Heart rate 2022-10-11 88 /min [facility] 20:15:00 Medical Branch Body temperature 2022-10-11 36.33 Anitha [facility] 20:15:00 Medical Branch Body height 2022-10-11 154.9 cm [facility] 20:15:00 Medical Branch Body weight 2022-10-11 [facility] BMI 2022-10-11 39.87 kg/m2 [facility] 20:15:00 Medical Branch Oxygen saturation in 2022-10-11 96 /[facility] by 20:15:00 Medical Br anch Pulse oximetry Systolic blood 2022-10-01 122 mm[Hg] [facility] pressure 21:09:00 Medical Branch Diastolic blood 2022-10-01 82 mm[Hg] [facility] [place] pressure 21:09:00 Medical Branch Heart rate 2022-10-01 82 /min [facility] 21:09:00 Medical Branch Body temperature 2022-10-01 37.17 Anitha [facility] 21:09:00 Medical Branch Respiratory rate 2022-10-01 18 /min [facility] 21:09:00 Medical Branch Body height 2022-10-01 156.2 cm [facility] 21:09:00 Medical Branch Body weight 2022-10-01 97.705 kg [facility] 21:09:00 Medical Branch BMI 2022-10-01 40.04 kg/m2 [facility] 21:09:00 Medical Branch Oxygen saturation in 2022-10-01 96 /min [facility] Arterial blood by 21:09:00 Medical Br anch Pulse oximetry Systolic blood 2022-09-26 127 mm[Hg] [facility] pressure 12:00:00 Medical Branch Diastolic blood 2022-09-26 79 mm[Hg] [place] o [facility] pressure 12:00:00 Medical Branch Heart rate 2022-09-26 81 /min [facility] 12:00:00 Medical Branch Body temperature 2022-09-26 36.5 Anitha [facility] 12:00:00 Medical Branch Respiratory rate 2022-09-26 18 /min [facility] 12:00:00 Medical Branch Oxygen saturation in 2022-09-26 98 /min [facility] Arterial blood by 12:00:00 Medical Br anch Pulse oximetry Body height 2022-09-26 154.9 cm [facility] 10:55:00 Medical Branch Body weight 2022-09-26 94.802 kg [facility] 10:55:00 Medical Branch BMI 2022-09-26 39.49 kg/m2 [facility] 10:55:00 Medical Branch Systolic blood 2022-09-09 131 mm[Hg] [facility] pressure 17:30:00 Medical Branch Diastolic blood 2022-09-09 98 mm[Hg] [facility] o [facility] pressure 17:30:00 Medical Branch Heart rate 2022-09-09 66 /min [facility] 17:30:00 Medical Branch Respiratory rate 2022-09-09 14 /min [facility] 17:30:00 Medical Branch Oxygen saturation in 2022-09-09 98 /min [facility] Arterial blood by 17:30:00 Medical Br anch Pulse oximetry Body temperature 2022-09-09 37.39 Anitha [facility] 16:26:00 Medical Branch Body height 2022-09-09 157.5 cm [facility] 12:51:00 Medical Branch Body weight 2022-09-09 94.802 kg [facility] 12:51:00 Medical Branch BMI 2022-09-09 38.23 kg/m2 [facility] 12:51:00 Medical Branch Systolic blood 2022-08-29 123 mm[Hg] [facility] pressure 16:52:00 Medical Branch Diastolic blood 2022-08-29 84 mm[Hg] [facility] o [facility] pressure 16:52:00 Medical Branch Heart rate 2022-08-29 74 /min [facility] 16:51:00 Medical Branch Body temperature 2022-08-29 37.28 Anitha [facility] 16:51:00 Medical Branch Body height 2022-08-29 158.8 cm [facility] 16:51:00 Medical Branch Body weight 2022-08-29 93.441 kg [facility] 16:51:00 Medical Branch BMI 2022-08-29 37.08 kg/m2 [facility] 16:51:00 Medical Branch Oxygen saturation in 2022-08-29 96 /min [facility] Arterial blood by 16:51:00 Medical Br anch Pulse oximetry Systolic blood 2022-08-21 119 mm[Hg] [facility] pressure 21:46:00 Medical Branch Diastolic blood 2022-08-21 82 mm[Hg] [facility] [place] pressure 21:46:00 Medical Branch Heart rate 2022-08-21 88 /min [facility] ex 21:46:00 Medical Branch Body height 2022-08-21 158.8 cm [facility] 21:46:00 Medical Branch Body weight 2022-08-21 99.02 kg [facility] 21:46:00 Medical Branch BMI 2022-08-21 39.29 kg/m2 [facility] 21:46:00 Medical Branch Oxygen saturation in 2022-08-21 97 /min [facility] Arterial blood by 21:46:00 Medical Br anch Pulse oximetry Systolic blood 2022-08-21 145 mm[Hg] [facility] pressure 03:00:00 Medical Branch Diastolic blood 2022-08-21 99 mm[Hg] [place] [facility] [place] pressure 03:00:00 Medical Branch Heart rate 2022-08-21 101 /min [facility]as 03:00:00 Medical Branch Respiratory rate 2022-08-21 18 /min [facility] 03:00:00 Medical Branch Oxygen saturation in 2022-08-21 98 /min [facility] Arterial blood by 03:00:00 Medical Br anch Pulse oximetry Body temperature 2022-08-20 37.28 Anitha [facility] 23:54:00 Medical Branch Body weight 2022-08-20 96.163 kg [facility] 23:54:00 Medical Branch BMI 2022-08-20 40.06 kg/m2 [facility] 23:54:00 Medical Branch Systolic blood 2022-08-19 120 mm[Hg] [facility] pressure 15:59:00 Medical Branch Diastolic blood 2022-08-19 82 mm[Hg] [place] o [facility] pressure 15:59:00 Medical Branch Heart rate 2022-08-19 91 /min [facility] 15:59:00 Medical Branch Body temperature 2022-08-19 36.89 Anitha [facility] 15:59:00 Medical Branch Respiratory rate 2022-08-19 16 /min [facility] 15:59:00 Medical Branch Body height 2022-08-19 154.9 cm [facility] 15:59:00 Medical Branch Body weight 2022-08-19 96.48 kg [facility] 15:59:00 Medical Branch BMI 2022-08-19 40.19 kg/m2 [facility] 15:59:00 Medical Branch Oxygen saturation in 2022-08-19 95 /min [facility] Arterial blood by 15:59:00 Medical Br anch Pulse oximetry Systolic blood 2022-08-06 138 mm[Hg] [facility] pressure 17:11:00 Medical Branch Diastolic blood 2022-08-06 86 mm[Hg] [facility] [place] pressure 17:11:00 Medical Branch Heart rate 2022-08-06 93 /min [facility] 17:10:00 Medical Branch Body temperature 2022-08-06 36.83 Anitha [facility] 17:10:00 Medical Branch Respiratory rate 2022-08-06 17 /min [facility] 17:10:00 Medical Branch Body height 2022-08-06 154.9 cm [facility] 17:10:00 Medical Branch Body weight 2022-08-06 94.983 kg [facility] 17:10:00 Medical Branch BMI 2022-08-06 39.57 kg/m2 [facility] 17:10:00 Medical Branch Oxygen saturation in 2022-08-06 96 /min [facility] Arterial blood by 17:10:00 Medical Br anch Pulse oximetry HEIGHT 2022-07-10 154.9 cm 15:31:00 WEIGHT 2022-07-10 93.486 kg 15:31:00 HEIGHT 2022-07-09 154.9 cm 19:17:00 WEIGHT 2022-07-09 104.327 kg 19:17:00 HEIGHT 2022-07-10 154.9 cm 15:31:00 WEIGHT 2022-07-10 93.486 kg 15:31:00 HEIGHT 2022-07-09 154.9 cm 19:17:00 WEIGHT 2022-07-09 104.327 kg 19:17:00 Weight 2022-06-11 94.8 KG 17:18:00 Systolic blood 2022-06-08 109 mm[Hg] [facility] pressure 14:22:00 Medical Branch Diastolic blood 2022-06-08 77 mm[Hg] [facility] pressure 14:22:00 Medical Branch Heart rate 2022-06-08 86 /min [facility] 14:22:00 Medical Branch Body temperature 2022-06-08 37.11 Anitha [facility] 14:22:00 Medical Branch Respiratory rate 2022-06-08 18 /min [facility] 14:22:00 Medical Branch Body height 2022-06-08 154.9 cm [facility] 14:22:00 Medical Branch Body weight 2022-06-08 94.711 kg [facility] 14:22:00 Medical Branch BMI 2022-06-08 39.45 kg/m2 [facility] 14:22:00 Medical Branch Oxygen saturation in 2022-06-08 97 /min [facility] Arterial blood by 14:22:00 Medical Br anch Pulse oximetry Systolic blood 2022-05-29 147 mm[Hg] [facility] pressure 14:00:00 Medical Branch Diastolic blood 2022-05-29 96 mm[Hg] [facility] [place] pressure 14:00:00 Medical Branch Heart rate 2022-05-29 62 /min [facility] 14:00:00 Medical Branch Respiratory rate 2022-05-29 18 /min [facility] 14:00:00 Medical Branch Oxygen saturation in 2022-05-29 99 /min [facility] Arterial blood by 14:00:00 Medical Br anch Pulse oximetry Body temperature 2022-05-29 37.33 Anitha [facility] 11:13:00 Medical Branch Body height 2022-05-29 154.9 cm [facility] 11:13:00 Medical Branch Body weight 2022-05-29 96.163 kg [facility] 11:13:00 Medical Branch BMI 2022-05-29 40.06 kg/m2 [facility] 11:13:00 Medical Branch Systolic blood 2022-05-22 112 mm[Hg] [facility] pressure 15:00:00 Medical Branch Diastolic blood 2022-05-22 71 mm[Hg] [facility] [place] pressure 15:00:00 Medical Branch Heart rate 2022-05-22 59 /min [facility] 15:00:00 Medical Branch Respiratory rate 2022-05-22 14 /min [facility] 15:00:00 Medical Branch Oxygen saturation in 2022-05-22 96 /min [facility] Arterial blood by 15:00:00 Medical Br anch Pulse oximetry Body temperature 2022-05-22 37.17 Anitha [facility] 12:47:00 Medical Branch Body weight 2022-05-22 96.163 kg [facility] 12:47:00 Medical Branch BMI 2022-05-22 40.06 kg/m2 [facility] 12:47:00 Medical Branch HEIGHT 2022-04-24 154.9 cm 10:39:00 WEIGHT 2022-04-24 104.327 kg 10:39:00 HEIGHT 2022-04-24 154.9 cm 10:39:00 WEIGHT 2022-04-24 104.327 kg 10:39:00 Systolic blood 2022-04-16 168 mm[Hg] [facility] pressure 18:30:00 Medical Branch Diastolic blood 2022-04-16 84 mm[Hg] [facility] pressure 18:30:00 Medical Branch Heart rate 2022-04-16 88 /min [facility] 18:30:00 Medical Branch Body temperature 2022-04-16 36.89 Anitha [facility] 18:30:00 Medical Branch Respiratory rate 2022-04-16 24 /min [facility] 18:30:00 Medical Branch Oxygen saturation in 2022-04-16 98 /min [facility] Arterial blood by 18:30:00 Medical anch Pulse oximetry Body height 2022-04-16 154.9 cm [facility] 14:36:00 Medical Branch Body weight 2022-04-16 99.791 kg [facility] 14:36:00 Medical Branch BMI 2022-04-16 41.57 kg/m2 [facility] 14:36:00 Medical Branch HEIGHT 2022-03-18 154.9 cm 14:31:00 WEIGHT 2022-03-18 [...] CM 17:10:00 Weight 2020-06-16 84.14 KG 17:10:00 HEIGHT 2020-04-03 162.6 cm 00:00:00 WEIGHT 2020-04-03 80.287 kg 00:00:00 HEIGHT 2020-04-03 162.6 cm 00:00:00 WEIGHT 2020-04-03 80.287 kg 00:00:00 Height 2019-11-24 160.02 CM 16:32:00 Weight 2019-11-24 79.37 KG 16:32:00 HEIGHT 2022-11-21 154.9 cm 14:33:00 WEIGHT 2022-11-21 104.327 kg 14:33:00 Systolic blood 2022-06-13 126 mm[Hg] [facility] pressure 02:29:00 Diastolic blood 2022-06-13 84 mm[Hg] [facility] pressure 02:29:00 Heart rate 2022-06-13 73 /min [facility] 02:29:00 Body temperature 2022-06-13 36.83 Anitha [facility] 02:29:00 Respiratory rate 2022-06-13 17 /min [facility] 02:29:00 Oxygen saturation in 2022-06-13 95 /min [facility] Arterial blood by 02:29:00 Pulse oximetry Body height 2022-06-12 157.5 cm [facility] 19:48:00 Body weight 2022-06-12 95.255 kg [facility] 19:48:00 BMI 2022-06-12 38.41 kg/m2 [facility] 19:48:00 Systolic blood 2022-06-11 122 mm[Hg] [facility] pressure 13:14:00 [facility] Center Diastolic blood 2022-06-11 86 mm[Hg] [facility] pressure 13:14:00 [facility] Heart rate 2022-06-11 77 /min [facility] 13:14:00 Medical Center Body temperature 2022-06-[address] [facility] 13:[facility] Body weight 2022-06-[address] [facility] 13:14:00 Medical Center BMI 2022-06-11 34.25 kg/m2 [facility] 13:14:00 Medical Center Respiratory rate 2022-06-02 18 /min [facility] 03:30:00 [facility] Center Oxygen saturation in 2022-06-02 98 /min [facility] Arterial blood by 03:30:00 Medical Ce nter Pulse oximetry Body height 2022-06-01 165.1 [...] 2021-08-14 61 /min [facility] 13:55:00 [facility] Body temperature 2021-08-14 [address] [facility] 13:55:00 [facility] Body weight 2021-08-[address] [facility] 13:55:00 Medical Center BMI 2021-08-14 37.13 kg/m2 [facility] 13:55:00 Medical Center Respiratory rate 2021-06-20 18 /min [facility] 14:56:00 [facility] Oxygen saturation in 2021-06-20 99 /min [facility] Arterial blood by 14:56:00 Medical Ce nter Pulse oximetry Body height 2021-06-[address] [facility] 11:01:00 Medical Center Systolic blood 2021-02-07 128 mm[Hg] [facility] pressure 21:08:00 Diastolic blood 2021-02-07 75 mm[Hg] [facility] pressure 21:08:00 Heart rate 2021-02-07 68 /min [facility] 21:08:00 Respiratory rate 2021-02-07 17 /min [facility] 21:08:00 Oxygen saturation in 2021-02-07 99 /min [facility] Arterial blood by 21:08:00 Pulse oximetry Body temperature 2021-02-07 36.89 Anitha [facility] 16:00:27 Body height 2020-11-30 157.5 cm [facility] 22:00:00 Body weight 2020-11-30 93.078 kg [facility] 22:00:00 BMI 2020-11-30 37.53 kg/m2 [facility] 22:00:00 Body height 2020-04-26 157.48 [...] 168 mm[Hg] [facility] pressure 16:57:00 [facility] Diastolic blood 2020-04-03 86 mm[Hg] [facility] pressure 16:57:00 [facility] Heart rate 2020-04-03 60 /min [facility] 16:57:00 Medical Center Body temperature 2020-04-[address] [facility] 16:57:00 [facility] Respiratory rate 2020-04-03 18 /min [facility] 16:57:00 [facility] Oxygen saturation in 2020-04-03 98 /min [facility] Arterial blood by 16:57:00 [facility] nter Pulse oximetry Body height 2020-04-[address] [facility] 13:49:00 Medical Center Body weight 2020-04-[address] [facility] 13:49:00 Medical [place] BMI 2020-04-03 30.38 kg/m2 [facility] [place] 13:49:00 Medical Center Body height 2019-08-25 157.48 cm [facility] [...] Date / Time Performing Source Performed Clinician ASSIGNMENT OF BENEFITS 2023-03-17 Doctor [facility] 01:30:40 Unassigned, No Medical Branch Name LIPASE 2023-03-17 Daya Loera [facility] 00:53:00 Medical Branch COMP. METABOLIC PANEL (21450) 2023-03-17 [facility] [place] 00:53[facility] CBC WITH DIFF 2023-03-17 Daya Loera [facility] 00:53:00 Medical Branch POCT TEST 2023-03-17 Daya Loera [facility] 00:43:00 Medical Branch URINALYSIS 2023-03-17 Daya [facility] 00:37:[address] [address] ABDOMEN PELVIS WO CONTRAST 2023-03-17 Daya Loera [facility] 00:05:26 Medical Branch CONSENT/REFUSAL FOR DIAGNOSIS AND 2023-03-16 Doctor [facility] TREATMENT 22:52:39 Unassigned, No Medical Branch Name AUTHORIZATION FOR RELEASE OF PHI 2023-01-30 [facility] 05:01:00 Unassigned, No Medical Branch Name POCT TEST 2023-01-13 Gabrielle [facility] 23:29:00 [facility] URINALYSIS 2023-01-13 Gabrielle [facility] 23:28:00 [facility] ASSIGNMENT OF BENEFITS 2023-01-13 [facility] 23:26:43 Unassigned, No Medical Branch Name CONSENT/REFUSAL FOR DIAGNOSIS AND 2023-01-13 Doctor [facility] TREATMENT 22:29:48 Unassigned, No Medical Branch Name REFERRAL- REQUEST/RESPONSE 2023-01-07 [facility] 05:01:00 Unassigned, No Medical Branch Name POCT URINALYSIS 2022-12-24 Justin [facility] xa 00:00:00 Medical Branch MAGNESIUM 2022-11-24 [facility] 09:38:00 [facility] [place] BASIC METABOLIC PANEL (NA, K, CL, 2022-11-24 Dirk Lowe [facility] CO2, GLUCOSE, BUN, CREATININE, 09:38:00 M [facility]) CBC WITH DIFF [facility] 09:38:[address] [facility] [address] ABDOMEN PELVIS WO CONTRAST 2022-11-23 Isabella [facility] 16:30:10 [facility] BASIC METABOLIC PANEL (NA, K, CL, 2022-11-23 [facility], GLUCOSE, BUN, CREATININE, 08:56:00 M [facility]) CBC WITH DIFF 2022-11-23 Lauren [facility] 08:56:00 [facility] GLYCOSYLATED HEMOGLOBIN (A1C) 2022-11-23 lauren [facility] 08:56:00 [facility] PROCALCITONIN 2022-11-23 [facility] 08:56:00 Medical Branch SPUTUM CULTURE 2022-11-22 Dorene Tang [facility] 13:53:00 Medical Branch RAPID INFLUENZA A/B 2022-11-22 [facility] [place] 13:47:00 Medical Branch RESPIRATORY PANEL BY PCR 2022-11-22 [facility] 13:47:00 [facility] CT CHEST PULMONARY ANGIOGRAM 2022-11-22 [facility] 08:59[facility]00 [facility] HB ECG ROUTINE & RHYTHM STRIP 2022-11-22 Dorene Tang [facility] 06:48:40 [facility] Branch BLOOD CULTURE SCREEN 2022-11-22 Dorene Tang [facility] 06:35:00 [facility] TROPONIN I 2022-11-22 Dorene Tang [facility] 06:35:00 Medical Branch COMP. METABOLIC PANEL ([id number]) 2022-11-22 Dorene Tang [facility] 06:35:00 Medical Branch CBC WITH DIFF 2022-11-22 Dorene Tang [facility] 06:35:00 [facility] D-DIMER 2022-11-22 Dorene Tang [facility] 06:35:00 [facility] N-TERMINAL PRO-BNP 2022-11-22 Dorene Tang [facility] 06:35:00 Medical Branch COVID-19 (ID NOW RAPID TESTING) 2022-11-22 Dorene Tang [facility] 06:35:00 [facility] [place] LAB ONLY COVID INTERPRETATION 2022-11-22 Dorene Tang [facility] 06:35:00 Medical Branch INSURANCE CORRESPONDENCE 2022-09-[address] [facility] 06:01:00 Unassigned, No Medical Branch Name LIPASE 2022-09-09 Pricilla Jamison [facility] ex 13:37:00 J [facility] MAGNESIUM 2022-09-09 Shaheen [facility] ex 13:37:00 J [facility] TEST, SERUM 2022-09-09 Pricilla Jamison [facility] 13:37:00 J Medical Branch COMP. METABOLIC PANEL ([id number]) 2022-09-09 Shaheen Pricilla [facility] 13:37:00 Medical Branch CBC WITH DIFF 2022-09-09 Alexandra Jamisonra [facility] 13:37:00 J [facility] Branch URINALYSIS 2022-09-09 [facility] 13:37:00 [facility] Branch PATIENT QUESTIONNAIRE 2022-09-04 [facility] 06:01:00 Unassigned, No Medical Branch Name POCT URINALYSIS 2022-08-29 [facility] xa 17:00:00 Medical Branch POCT TEST 2022-08-21 Yonis Rivera [facility] 01:21:00 [facility] LIPASE 2022-08-21 Yonis Rivera [facility] 01:13:00 Medical Branch COMP. METABOLIC PANEL ([id number]) 2022-08-21 Yonis Rivera [facility] 01:13:00 [facility] CBC WITH DIFF 2022-08-21 Yonis Rivera [facility] 01:13:00 [facility] URINALYSIS 2022-08-21 Yonis Rivera [facility] 01:13:00 [facility] N-TERMINAL PRO-BNP 2022-08-21 Yonis Rivera [facility] 01:13:[address] [facility] [address] ABDOMEN PELVIS WO CONTRAST 2022-08-21 Yonis Rivera [facility] 00:33:49 [facility] [place] CONSENT/REFUSAL FOR DIAGNOSIS AND 2022-08-20 Doctor [facility] TREATMENT 23:46:14 Unassigned, No Medical Branch Name EXTERNAL PROVIDER RECORDS 2022-06-13 Doctor [facility] 05:01:00 Unassigned, No Medical Branch Name CT ABDOMEN PELVIS W CONTRAST 2022-06-13 [facility] 00[facility]16[facility]39 T. HCG QUALITATIVE, SERUM SCREEN 2022-06-12 [facility] 23:33:00 T. CBC WITH PLATELET AND 2022-06-12 [facility] DIFFERENTIAL 21:34:00 T. COMPREHENSIVE METABOLIC PANEL 2022-06-12 [facility] 21:34:00 T. MAGNESIUM LEVEL 2022-06-12 [facility] 21:34:00 T. LACTIC ACID LEVEL, SEPSIS - NOW 2022-06-12 [facility] AND REPEAT 2X EVERY 3 HOURS 21:34:00 T. ESTIMATED GFR 2022-06-12 [facility] 21:34:00 T. LIPASE LEVEL 2022-06-12 [facility] 21:22:00 T. URINALYSIS SCREEN AND MICROSCOPY, 2022-06-12 [facility] WITH REFLEX TO CULTURE 21:22:00 T. URINE CULTURE 2022-06-12 [facility] 21:15:00 T. NM RENAL SCAN WITH DIURETIC 2022-06-07 Jonnathan Watts [facility] 12:24:00 [facility] US RENAL COMPLETE 2022-06-01 [facility] 23:16:00 [facility] SCREEN, URINE 2022-06-01 Julio César, [facility] 19:43:00 [facility] RAPID DRUG SCREEN, URINE 2022-06-01 [facility] 19:43:00 [facility] BASIC METABOLIC PANEL 2022-06-01 Julio César [facility] 19:38:00 [facility] URINE CULTURE 2022-06-01 [facility] 18:45:00 [facility] URINALYSIS W/ MICROSCOPIC 2022-06-01 Julio César [facility] 18:45:00 [facility] UA/M W/RFLX CULTURE, ROUT 2022-05-[address] [facility] 11:52:00 [facility] MICROSCOPIC EXAMINATION 2022-05-[address] [facility] 11:52:00 [facility] URINE CULTURE, ROUTINE 2022-05-[address] [facility] 11:52:[address] [facility] [address] ABDOMEN PELVIS WO CONTRAST 2022-05-29 [facility] 12[facility] LUMBAR SPINE WO CONTRAST 2022-05-[address] [facility] 12:39:45 Medical Branch URINALYSIS 2022-05-29 Sav [facility] 11:59:00 Medical [facility] POCT TEST 2022-05-29 Sav Amilcar [facility] 11:59:00 Medical Branch LIPASE 2022-05-29 Sav [facility] 11:44:00 Medical Branch COMP. METABOLIC PANEL ([id number]) 2022-05-29 Amilcar Ang [facility] 11:44:00 Medical Branch CBC WITH DIFF 2022-05-29 Sav [facility] 11:44:00 [facility] POCT TEST 2022-05-22 Carlito Carmen [facility] 13:25:00 [facility] LIPASE 2022-05-22 Carlito Carmen [facility] ex 13:22:00 Medical Branch COMP. METABOLIC PANEL ([id number]) 2022-05-22 Carlito Carmen [facility] 13:22:00 Medical Branch CBC WITH DIFF 2022-05-22 Carlito Carmen [facility] ex 13:22:00 [facility] URINALYSIS 2022-05-22 Carlito Carmen [facility] 13:22:00 [facility] US RENAL COMPLETE 2022-05-[address] [facility] 16:20:00 [facility] US RENAL COMPLETE 2022-05-[address] [facility] 20:30:00 [facility] PERMANENT LAB REPORT - SCAN 2022-05-16 Provider, Default [facility] 00:00:00 Scanning [facility] URINE CULTURE 2022-05-[address] [facility] 16:24:00 [facility] CBC W/PLT COUNT & AUTO 2022-04-[address] [facility] DIFFERENTIAL 03:32:00 [facility] BASIC METABOLIC PANEL 2022-04-29 Zee, [facility] 03:32:00 [facility] MAGNESIUM 2022-04-29 Zee, [facility] 03:32:00 [facility] PHOSPHORUS 2022-04-29 Banjo, [facility] 03:32:00 [facility] CBC W/PLT COUNT & AUTO 2022-04-29 Banjo, [facility] DIFFERENTIAL 03:32:00 [facility] URINE CULTURE 2022-04-[address] [facility] 04:38:00 [facility] URINALYSIS W/ MICROSCOPIC 2022-04-[address] [facility] 04:38:00 [facility] CBC W/PLT COUNT & AUTO 2022-04-28 Banjo, [facility] DIFFERENTIAL 04:33:00 [facility] BASIC METABOLIC PANEL 2022-04-28 Banjo, [facility]uke [facility] es 04:33:00 [facility] MAGNESIUM 2022-04-28 Banjo, [facility] 04:33:00 [facility] PHOSPHORUS 2022-04-28 Banjo, [facility] 04:33:00 [facility] CBC W/PLT COUNT & AUTO 2022-04-28 Banjo, [facility] DIFFERENTIAL 04:33:00 [facility] [facility] CT ABDOMEN/PELVIS WITHOUT IV 2022-04-[address] [facility] CONTRAST 18:43:00 [facility] US PELVIS 2022-04-27 Banjo, Atinuke [facility] 14:39:00 [facility] US ABDOMEN COMPLETE 2022-04-27 Banjo, Atinuke [facility] 14:39:00 [facility] XR ABDOMEN/KUB 1 VIEW PORTABLE 2022-04-27 Banjo, Atinuke [facility] 09:20:00 [facility] CBC W/PLT COUNT & AUTO 2022-04-27 Banjo, [facility]inuke [facility] DIFFERENTIAL 05:41:00 [facility] BASIC METABOLIC PANEL 2022-04-27 Banjo, [facility]uke [facility] 05:41:00 [facility] [place] MAGNESIUM 2022-04-27 Banjo, Atinuke [facility] 05:41:00 [facility] PHOSPHORUS 2022-04-27 Banjo, Atinuke [facility] 05:41:00 [facility] CBC W/PLT COUNT & AUTO 2022-04-27 Banjo, Atinuke [facility] DIFFERENTIAL 05:41:00 [facility] CBC W/PLT COUNT & AUTO 2022-04-26 Banjo, Atinuke [facility] DIFFERENTIAL 05:13:00 [facility] BASIC METABOLIC PANEL 2022-04-26 Banjo, [facility]inuke [facility] 05:13:00 Medical Center MAGNESIUM 2022-04-26 Banjo, Atinuke [facility] 05:13:00 [facility] PHOSPHORUS 2022-04-26 Banjo, Atinuke [facility] 05:13:00 [facility] CBC W/PLT COUNT & AUTO 2022-04-26 Banjo, [facility]inuke [facility] DIFFERENTIAL 05:13:00 [facility] URINALYSIS W/ REFLEX URINE 2022-04-25 Banjo, Kunal [facility] CULTURE 13:51:00 [facility] CBC W/PLT COUNT & AUTO 2022-04-25 Banjo, Atberhane [facility] DIFFERENTIAL 04:02:00 [facility] BASIC METABOLIC PANEL 2022-04-25 Banjo, Atinuke [facility] 04:02:00 Medical Center MAGNESIUM 2022-04-25 Banjo, Atinuke [facility] 04:02:00 [facility] PHOSPHORUS 2022-04-25 Banjo, Atinuke [facility] 04:02:00 [facility] CBC W/PLT COUNT & AUTO 2022-04-25 Banjo, Atberhane [facility] DIFFERENTIAL 04:02:00 [facility] FL FLUORO NON-SPECIFIC UP TO 1 2022-04-[address] [facility] HOUR 12:47:00 [facility] CYSTOSCOPY, WITH RETROGRADE 2022-04-24 Jonnathan Watts [facility] PYELOGRAM 11:48:00 [facility] SCREEN, URINE 2022-04-24 LoganJuan Carlos [address] [facility] 10:13:00 [facility] COVID ANTIGEN 2022-04-[address] [facility] 09:25:00 [facility] PROTHROMBIN TIME/INR 2022-04-[address] [facility] 09:25:00 [facility] TYPE AND SCREEN, AUTOMATED 2022-04-[address] [facility] 09:25:[address] [facility] [address] ABDOMEN PELVIS W CONTRAST 2022-04-16 Garcia [facility] 16:29:38 Medical Branch LIPASE 2022-04-16 [facility] xas 15:52:00 [facility] HEPATIC FUNCTION PANEL ([id number]) 2022-04-16 Brittani Garcia [facility] (ALB,T.PRO,BILI 15:52:00 [facility] T,BU/BC,ALT,AST,ALK PHOS) BASIC METABOLIC PANEL (NA, K, CL, 2022-04-16 [facility] CO2, GLUCOSE, BUN, CREATININE, 15:52:00 M ed[facility] [place]) CBC WITH DIFF 2022-04-16 [facility] xa 15:52:00 [facility] LACTIC ACID WHOLE BLOOD 2022-04-16 [facility] 15:52:00 [facility] COVID-19 (ID NOW RAPID TESTING) 2022-04-16 [facility] 15:52:00 [facility] POCT TEST 2022-04-16 [facility] o [facility] 15:23:00 [facility] URINALYSIS 2022-04-16 [facility] xa 15:22:00 [facility] CONSENT/REFUSAL FOR DIAGNOSIS AND 2022-04-16 Doctor [facility] TREATMENT 14:33:27 Unassigned, No Medical Branch Name CLOSTRIDIUM DIFFICILE TOXIN 2022-04-[address] [facility] 15:56:00 [facility] POCT URINALYSIS DIPSTICK 2022-04-04 Jonnathan Watts [facility] 15:10:00 [facility] URINE CULTURE 2022-04-[address] [facility] 15:08:00 [facility] CYSTOSCOPY, WITH RETROGRADE 2022-03-20 Jonn[address] [facility] PYEL[facility]GRAM 20:29:00 [facility] US RENAL COMPLETE 2022-03-[address] [facility] 17:25:00 [facility] CBC W/PLT COUNT & AUTO 2022-03-[address] [facility] DIFFERENTIAL 06:04:00 [facility] CBC W/PLT COUNT & AUTO 2022-03-20 Hannah, Quynh Spencer [facility] DIFFERENTIAL 06:04:00 [facility] BASIC METABOLIC PANEL 2022-03-20 Futalan, Nerville [facility] 03:46:00 [facility] MAGNESIUM 2022-03-20 Futalan, [place] [facility] 03:46:00 Pis An [facility] PHOSPHORUS 2022-03-20 Futalan, [place] [facility] 03:46:00 [facility] URINE CULTURE 2022-03-19 Mac, Jonnathan [facility] 19:20:00 [facility] US RENAL COMPLETE 2022-03-19 Shikaylin, Quynh C [facility] 09:35:00 [facility] BASIC METABOLIC PANEL 2022-03-19 Futalan, [place] [facility] 03:47:00 [facility] MAGNESIUM 2022-03-19 Futalan, [place] [facility] 03:47:00 [facility] PHOSPHORUS 2022-03-19 Futalan, [place] [facility] 03:47:00 [facility] CBC W/PLT COUNT & AUTO 2022-03-[address] [facility] [facility] DIFFERENTIAL 03:47:00 [facility] CBC W/PLT COUNT & AUTO 2022-03-[address] [facility] [facility] DIFFERENTIAL 03:47:00 [facility] COVID ANTIGEN 2022-03-18 Ashtyn [address] Carlos [facility] 16:31:00 [facility] CT ABDOMEN/PELVIS WITHOUT IV 2022-03-18 Juan Carlos [address]amorro [facility] CONTRAST 15:25:00 [facility] URINALYSIS W/ REFLEX URINE 2022-03-18 Juan Carlos [facility] C[facility] 15:01:00 [facility] SCREEN, URINE 2022-03-18 Ashtyn, Juan Carlos [facility] 15:01:00 [facility] CBC W/PLT COUNT & AUTO 2022-03-18 Juan [address] [facility] DIFFERENTIAL 15:00:00 [facility] COMPREHENSIVE METABOLIC PANEL 2022-03-18 Juan Carlos [facility] 15:00:00 [facility] CBC W/PLT COUNT & AUTO 2022-03-18 Juan Carols [address]orro [facility] DIFFERENTIAL 15:00:00 [facility] FL FLUORO NON-SPECIFIC UP TO 1 2022-03-[address] [facility] HOUR 09:12:00 [facility] CYSTOURETEROSCOPY, WITH LASER 2022-03-14 Mac, Jonnathan [facility] LITHOTRIPSY 07:43:00 [facility] SCREEN, URINE 2022-03-14 LoganJuan Carlos turner [facility] 05:48:00 [facility] COVID ANTIGEN 2022-03-11 Mac, Jonnathan [facility] 10:54:00 [facility] BASIC METABOLIC PANEL 2022-03-11 Mac, Jonnathan [facility] 10:54:00 [facility] CBC W/PLT COUNT & AUTO 2022-03-11 Mac, Jonnathan [facility] DIFFERENTIAL 10:54:00 [facility] PROTHROMBIN TIME/INR 2022-03-11 Mac, Jonnathan [facility] 10:54:00 [facility] TYPE AND SCREEN, AUTOMATED 2022-03-11 Mac, [facility]nathan [facility] 10:54:00 [facility] CBC W/PLT COUNT & AUTO 2022-03-11 Mac, Jonnathan [facility] DIFFERENTIAL 10:54:00 [facility] URINE CULTURE 2022-03-04 Mac, Jonnathan [facility] 12:38:[address] [facility] [address] ABDOMEN/PELVIS WITHOUT IV 2022-01-10 Penaflor, Kayode [facility] CONTRAST 18:25:00 [facility] CBC W/PLT COUNT & AUTO 2022-01-10 Penaflor, Kayode [facility] DIFFERENTIAL 16:20:00 [facility] COMPREHENSIVE METABOLIC PANEL 2022-01-10 Penaflor, [facility]ode [facility] 16:20:00 [facility] LIPASE 2022-01-10 Penaflor, Kayode [facility] 16:20:00 [facility] URINALYSIS W/ REFLEX URINE 2022-01-10 Penaflor, Kayode [facility] CULTURE 16:20:00 [facility] SCREEN, URINE 2022-01-10 Penaflor, Kayode [facility] 16:20:00 [facility] CBC W/PLT COUNT & AUTO 2022-01-[address] [facility] DIFFERENTIAL 16:20:00 [facility] FL FLUORO NON-SPECIFIC UP TO 1 2022-01-[address] [facility] HOUR 14:30:00 [facility] CYSTOURETEROSCOPY, WITH 2022-01-[address] [facility] LITHOTRIPSY, CALCULUS REMOVAL, 13:20:00 [facility] AND URETERAL STENT INSERTION SCREEN, URINE 2022-01-04 Logan Juan Carlos [address] 11:53:00 [facility] SARS-COV2/RT-PCR ([facility] & REF 2022-01-[address] [facility] 09:41:00 [facility] BASIC METABOLIC PANEL 2022-01-01 Mac, Jonnathan [facility] 09:41:00 [facility] CBC W/PLT COUNT & AUTO 2022-01-[address] [facility] DIFFERENTIAL 09:41:00 [facility] PROTHROMBIN TIME/INR 2022-01-[address] [facility] 09:41:00 [facility] TYPE AND SCREEN, AUTOMATED 2022-01-[address] [facility] 09:41:00 [facility] CBC W/PLT COUNT & AUTO 2022-01-[address] [facility] DIFFERENTIAL 09:41:00 [facility] UA/M W/RFLX CULTURE, ROUT 2021-12-[address] [facility] 16:25:00 [facility] MICROSCOPIC EXAMINATION 2021-12-[address] [facility] 16:25:00 [facility] URINE CULTURE, ROUTINE 2021-12-[address] [facility] 16:25:00 [facility] POCT URINALYSIS DIPSTICK 2021-12-25 [facility] 08:57:00 [facility] URINE CULTURE 2021-08-[address] [facility] 12:19:00 [facility] XR ABDOMEN/KUB 1 VIEW PORTABLE 2021-08-[address] [facility] 10:42:00 [facility] US RENAL COMPLETE 2021-06-20 [facility] 13:30:00 [facility] COMPREHENSIVE METABOLIC PANEL 2021-06-20 [facility] 11:18:00 [facility] LIPASE 2021-06-20 [facility]ode [facility] 11:18:00 [facility] SCREEN, URINE 2021-06-[facility] 11:18:00 [facility] RAPID DRUG SCREEN, URINE 2021-06-[facility] 11:18:00 [facility] URINALYSIS W/ REFLEX URINE 2021-06-20 [facility], [facility] CULTURE 11:18:00 [facility] CBC W/PLT COUNT & AUTO 2021-06-20 [facility], [facility] DIFFERENTIAL 11:18:00 [facility] CBC W/PLT COUNT & AUTO 2021-06-20 [facility], [facility] DIFFERENTIAL 11:18:00 [facility] ECG 12-LEAD 2021-02-07 [facility] 20[facility] ABDOMEN PELVIS W CONTRAST 2021-02-07 [facility] 20:11:39 URINE CULTURE 2021-02-07 [facility] 19:36:00 URINALYSIS SCREEN AND MICROSCOPY, 2021-02-07 [facility] WITH REFLEX TO CULTURE 19:36:00 COMPREHENSIVE METABOLIC PANEL 2021-02-07 [facility] 17:28:00 LIPASE LEVEL 2021-02-07 [facility] 17:28:00 HC COMPLETE BLD COUNT W/AUTO DIFF 2021-02-07 [facility] 17:28:00 TROPONIN 2021-02-07 [facility] 17:28:00 HCG QUALITATIVE, SERUM SCREEN 2021-02-07 [facility] 17:28:00 ALCOHOL LEVEL, BLOOD 2021-02-07 [facility] 17:28:00 ESTIMATED GFR [facility] ED PRELIMINARY INTERPRETATION 2021-02-07 [facility] 17:06:30 ESOPHAGOGASTRODUODENOSCOPY (EGD) 2020-12-03 [facility] 15:19:00 Surjit Shea SURGICAL PATHOLOGY REQUEST 2020-12-03 [facility] 13:25:00 C. HC COMPLETE BLD COUNT W/AUTO DIFF 2020-12-03 [facility] 10:07:00 C. BASIC METABOLIC PANEL 2020-12-03 [facility] 10:07:00 C. ESTIMATED GFR 2020-12-03 [facility] 10:07:00 C. HC COMPLETE BLD COUNT W/AUTO DIFF 2020-12-01 [facility] 09:10:00 Latrondria Cecilia BASIC METABOLIC PANEL 2020-12-01 [facility] 09:10:00 Latrondria Cecilia MAGNESIUM LEVEL 2020-12-01 [facility] al 09:10:00 Latrondria Cecilia PHOSPHORUS LEVEL 2020-12-01 [facility] sergey 09:10:00 Latrondria Cecilia ESTIMATED GFR 2020-12-01 [facility] 09:10:[address] ABDOMEN PELVIS W CONTRAST 2020-11-30 [facility] 22:32:29 Latrondria Cecilia PARTIAL THROMBOPLASTIN TIME (PTT) 2020-11-30 [facility] 20:05:00 Sangeeth Joliliam PROTHROMBIN TIME WITH INR 2020-11-30 [facility] 20:05:00 Sangeeth Joywin XR CHEST 1 VW PORTABLE 2020-11-30 [facility] 19:59:32 Sangeeth Joywin XR ABDOMEN 1 VW 2020-11-30 [facility] 19:58:49 Sangeeth Joywin ECG ED PRELIMINARY INTERPRETATION 2020-11-30 [facility] 19:36:37 Sangeeth Joywin B NATRIURETIC PEPTIDE 2020-11-30 [facility] 19:33:00 Sangeeth Joywin HC COMPLETE BLD COUNT W/AUTO DIFF 2020-11-30 [facility] 19:32:00 Sangeeth Joywin COMPREHENSIVE METABOLIC PANEL 2020-11-30 [facility] 19:32:00 Sangeeth Joywin MAGNESIUM LEVEL 2020-11-30 [facility] 19:32[facility]00 Sangeeth Joywin TROPONIN 2020-11-30 [facility] 19:32:00 Surjit Shea LIPASE LEVEL 2020-11-30 [facility] 19:32:00 Sangeeth Joywin HCG QUALITATIVE, SERUM SCREEN 2020-11-30 [facility] 19:32:00 Sangeeth Joywin ESTIMATED GFR 2020-11-30 [facility] 19:32:00 Sangeeth Joywin ECG 12-LEAD 2020-11-30 [facility] 19:19:19 Sangeeth Joywin COVID-19 QUALITATIVE RT-PCR 2020-11-30 [facility] 19:06:00 Sangeeth Joywin URINALYSIS SCREEN AND MICROSCOPY, 2020-11-30 [facility] WITH REFLEX TO CULTURE 19:06:00 Sangeeth Joywin URINE CULTURE 2020-11-30 [facility] 18:48:00 Sangeeth Joywin PHOSPHORUS LEVEL 2020-11-30 [facility] 18:48:00 Mariela Brooks OFFICE/OUTPATIENT VISIT EST 2020-04-26 [facility] 00:00:00 TRICHOMONAS VAGIN DIR PROBE 2020-04-26 [facility] 00:00:00 URINALYSIS WITH MICROSCOPIC IF 2020-04-03 Franc Ramirez [facility] INDICATED 16:28:00 [facility] CBC W/PLT COUNT & AUTO 2020-04-[address] [facility] DIFFERENTIAL 16:27:00 [facility] CT ABDOMEN/PELVIS WITH IV 2020-04-[address] [facility] CONTRAST 15:35:00 [facility] COMPREHENSIVE METABOLIC PANEL 2020-04-[address] [facility] 14:40:00 [facility] URINE TEST 2019-08-25 [facility] [...] Cessation Counseling and Screening (12+)] Future Scheduled 2023-03-13 COVID-19 VACCINE (#1) [facility] Test 02:11:59 [code = COVID-19 VACCINE (#1)] Future Scheduled 2023-03-13 Pneumococcal Vaccine: [facility] Test 02:11:59 Pediatrics (0 to 5 Years) and At-Risk Patients (6 to 64 Years) (1 - PCV) [code = Pneumococcal Vaccine: Pediatrics (0 to 5 Years) and At-Risk Patients (6 to 64 Years) (1 - PCV)] Future Scheduled 2023-03-13 Hepatitis C screening [facility] Test 02:11:59 (procedure) [code = 198162319] Future Scheduled 2023-03-13 Screening for [facility] Test 02:11:59 malignant neoplasm of cervix (procedure) [code = 552214212] Future Scheduled 2023-03-13 BREAST CANCER [facility] Test 02:11:59 SCREENING [code = BREAST CANCER SCREENING] Future Scheduled 2023-03-13 INFLUENZA VACCINE Method [facility] Test 02:11:59 [code = INFLUENZA VACCINE] Future Scheduled 2022-11-22 COVID-19 VACCINE (#1) [facility] Test 00:12:38 [code = COVID-19 VACCINE (#1)] Future Scheduled 2022-11-22 Pneumococcal Vaccine: [facility] Test 00:12:38 Pediatrics (0 to 5 Years) and At-Risk Patients (6 to 64 Years) (1 - PCV) [code = Pneumococcal Vaccine: Pediatrics (0 to 5 Years) and At-Risk Patients (6 to 64 Years) (1 - PCV)] Future Scheduled 2022-11-22 Hepatitis C screening [facility] Test 00:12:38 (procedure) [code = 583316620] Future Scheduled 2022-11-22 Screening for [facility] Test 00:12:38 malignant neoplasm of cervix (procedure) [code = 849458356] Future Scheduled 2022-11-22 BREAST CANCER [facility] Test 00:12:38 SCREENING [code = BREAST CANCER SCREENING] Future Scheduled 2022-11-22 INFLUENZA VACCINE Method [facility] Test 00:12:38 [code = INFLUENZA VACCINE] Future Scheduled 2022-07-[address] [facility] [facility] Test 00:00:00 malignant neoplasm of Medica [facility] Center cervix (procedure) [code = 672845605] Future Scheduled 2022-07-[address] [facility] [facility] Test 00:00:00 malignant neoplasm of [facility] Center cervix (procedure) [code = 162466982] Future Scheduled 2022-07-[address] [facility] Test 00:00:00 malignant neoplasm of [facility] Center cervix (procedure) [code = 130431701] Future Scheduled 2022-07-[address] [facility] Test 00:00:00 malignant neoplasm of [facility]ica [facility] Center cervix (procedure) [code = 334114893] Future Scheduled 2022-07-02 HEPATITIS B VACCINES Met [facility] Test 14:04:21 (1 of 3 - 3-dose series) [code = HEPATITIS B VACCINES (1 of 3 - 3-dose series)] Future Scheduled 2022-07-02 COVID-19 [facility] (#[facility] 14:04:21 [code = COVID-19 VACCINE (#1)] Future Scheduled 2022-07-02 Pneumococcal Vaccine: [facility] Test 14:04:21 Pediatrics (0 to 5 Years) and At-Risk Patients (6 to 64 Years) (1 - PCV) [code = Pneumococcal Vaccine: Pediatrics (0 to 5 Years) and At-Risk Patients (6 to 64 Years) (1 - PCV)] Future Scheduled 2022-07-02 Hepatitis C screening [facility] Test 14:04:21 (procedure) [code = 849037689] Future Scheduled 2022-07-02 Screening for [facility] Test 14:04:21 malignant neoplasm of cervix (procedure) [code = 558184973] Future Scheduled 2022-07-02 BREAST CANCER [facility] Test 14:04:21 SCREENING [code = BREAST CANCER SCREENING] Future Scheduled 2022-07-02 INFLUENZA VACCINE Method [facility] Test 14:04:21 [code = INFLUENZA VACCINE] Future Scheduled 2022-04-11 INFLUENZA VACCINE (#1[facility]:00[facility]00 [code = INFLUENZA Medical Ce nter VACCINE (#1)] Future Scheduled 2022-04-11 INFLUENZA VACCINE (#1) [facility] 00:00:00 [code = INFLUENZA Medical Ce nter VACCINE (#1)] Future Scheduled 2021-09-12 COVID-19 VACCINE (1) [facility] Test 15:51:07 [code = COVID-19 VACCINE (1)] Future Scheduled 2021-09-12 Hepatitis C screening [facility] Test 15:51:07 (procedure) [code = 415098433] Future Scheduled 2021-09-12 Screening for [facility] Test 15:51:07 malignant neoplasm of cervix (procedure) [code = 784473646] Future Scheduled 2021-09-12 INFLUENZA VACCINE Method [facility] Test 15:51:07 [code = INFLUENZA VACCINE] Future Scheduled 2021-09-12 COVID-19 VACCINE (1) [facility] Test 15:51:07 [code = COVID-19 VACCINE (1)] Future Scheduled 2021-09-12 Hepatitis C screening [facility] Test 15:51:07 (procedure) [code = 848332911] Future Scheduled 2021-09-12 Screening for [facility] Test 15:51:07 malignant neoplasm of cervix (procedure) [code = 419002637] Future Scheduled 2021-09-12 INFLUENZA VACCINE Method ist [...] [facility] Test 00:00:00 (procedure) [code = [facility] 15268807] Future Scheduled 2019-07-[address] [facility] 00:00:00 (procedure) [code = [facility] 79924258] Future Scheduled 2019-07-[address] [facility] Test 00:00:00 (procedure) [code = [facility] 81611383] Future Scheduled 2019-07-[address] [facility] Test 00:00:00 (procedure) [code = [facility] 82829107] Future Scheduled 2019-07-[address] [facility] Test 00:00:00 (procedure) [code = [facility] 17004211] Future Scheduled 2000-12-[address] [facility] Test 00:00:00 malignant neoplasm of Medica l Center cervix (procedure) [code = 946829692] Future Scheduled 1998-12-08 DTAP/TDAP/TD VACCINES CH I [...] VACCINE (#1)] Future Scheduled COVID-19 VACCINE (1) [facility] Test [code = COVID-19 VACCINE (1)] Future Scheduled [facility] (procedure) [code = 177461941] Future Scheduled Screening [facility] Test malignant neoplasm of cervix (procedure) [code = 541980885] Future Scheduled INFLUENZA VACCINE [facility] Test [code = INFLUENZA VACCINE] Encounters Start End Encounter Admission Attending Care Care Encounter Source Date/Time Date/Time Type Type Clinicians Facility Department ID 2023-03-04 Inpatient TEXANA TEXANA [id number] [place] 14:06:00 [id number] [place] 2022-11-12 Outpatient [facility] [id number] Common 08:15:02 [id number] [facility] 2022-10-02 Outpatient [facility] [id number] Common 19:10:00 [id number] [facility] 2022-09-20 Outpatient [facility] [id number] Common 10:48:04 [id number] [facility] 2023-05-13 2023-05-13 Outpatient JOSE LIZ [facility] [id number] Univers 13:40:00 13:40:00 JOSE ANDERSON [facility] 2023-03-16 2023-03-16 Emergency X VASNV, [facility] ERT [id number] Univers 18:32:00 22:40:00 DAYA [facility] 2023-03-16 2023-03-16 Emergency [facility] [id number] Univers 18:32:00 22:40:00 Daya SCOTT [id number] i ty [facility] [id number] [id number] [address] 2023-03-12 2023-03-12 [facility] [id number] Univers 00:00:00 00:00:00 [facility] [id number] ity [facility] [id number] Renato as ITZEL?BLEA [id number] [address] MEDICAL OFFICE BUILDING 2023-03-11 2023-03-11 Outpatient JOSE LIZ [facility] [id number] Univers 13:40:00 14:29:55 JOSE ANDERSON ity [facility] 2023-03-11 2023-03-11 Office [facility] [id number] Univers 13:40:00 14:29:55 Visit [facility] [id number] [facility] [id number] Renato as ITZEL?BLEA [id number] [address] OFFICE [facility] 2023-02-28 2023-02-28 Telephone [facility] [id number] Univers 00:00:00 00:00:00 [facility] [id number] it[facility] [id number] Renato as ITZEL?BLEA [id number] [address] OFFICE [facility] 2023-02-17 2023-02-17 Outpatient R DEEP [facility] [id number] Univers 14:30:00 15:42:26 MARK ity [facility] 2023-02-17 2023-02-17 [facility] 1.2.840.114 [id number] Univers 14:30:00 15:42:26 Visit [facility] 350.1.13.10 it y [facility] 4.2.7.2.686 Renato as ITZEL?BLEA [phone] [address] OFFICE [facility] 2023-01-30 2023-01-30 Orders Doctor JOSE JUAN 1.2.840.114 [id number] Univers 00:00:00 00:00:00 Only Unassigned, MAG 350.1.13.10 ity of [facility] 4.2.7.2.686 Renato as [phone] [address] 2023-01-14 2023-01-14 [facility] 1.2.840.114 [id number] Univers 13:30:00 14:00:00 Visit [facility] 350.1.13.10 it y of [place] 4.2.7.2.686 Renato as ITZEL?BLEA [phone] [address] OFFICE [facility] 2023-01-14 2023-01-14 Outpatient R STEPHEN [facility] [id number] Univers 13:30:00 13:30:00 MEGAN james [facility] 2023-01-13 2023-01-13 Emergency X GABRIELLE [facility] ERT [id number] Univers 17:37:00 20:45:00 SERJIO james [facility] 2023-01-13 2023-01-13 Emergency [facility] 1.2.484.224 [id number] Univers 17:37:00 20:45:00 Serjio SCOTT 350.1.13.10 i ty of Sergio LONG 4.2.7.2.686 [place] [facility] [phone] [facility] [address] 2023-01-07 2023-01-07 Outpatient R LULITD, [facility] [id number] Univers 15:15:00 15:15:00 SERJIO riley [facility] 2023-01-07 2023-01-07 Orders Doctor JOSE JUAN 1.2.840.114 [id number] Univers 00:00:00 00:00:00 Only Unassigned, MAG 350.1.13.10 [facility] 4.2.7.2.686 Renato as [phone] [facility] [address] 2023-01-03 2023-01-03 Patient [facility] 1.2.840.114 [id number] Univers 00:00:00 00:00:00 Outreach Raina Triplett [facility] 350.1.13.10 i ty of [place] 4.2.7.2.686 Renato as ITZEL?BLEA [phone] [address] MEDICAL OFFICE [facility] 2023-01-02 2023-01-02 Outpatient R JOSE ANDERSON [facility] [id number] Univers 11:20:00 11:54:17 JOSE ANDERSON riley [facility] 2023-01-02 2023-01-02 Office [facility] 1.2.840.114 [id number] Univers 11:20:00 11:54:17 Visit [facility] 350.1.13.10 ity of [place] 4.2.7.2.686 Renato as ITZEL?BLEA [phone] [address] MEDICAL OFFICE [facility] 2023-01-02 2023-01-02 Telephone [facility] 1.2.107.874 [id number] Univers 00:00:00 00:00:00 Jose HEALTH 350.1.13.10 ity of [place] 4.2.7.2.686 Renato as ITZEL?BLEA [phone] [address] MEDICAL OFFICE [facility] 2023-01-01 2023-01-01 Outpatient R BRENT CHILD [facility] [id number] Univers 11:30:00 11:30:00 [facility]LL [facility] 2022-12-24 2022-12-24 Outpatient R JOSE ANDERSON [facility] [id number] Univers 14:20:00 15:26:11 JOSE ANDERSON [facility] 2022-12-24 2022-12-24 Office [facility] 1.2.840.114 [id number] Univers 14:20:00 15:26:11 Visit [facility] 350.1.13.10 ity [facility] 4.2.7.2.686 Renato as ITZEL?BLEA [phone] [address] OFFICE [facility] 2022-12-24 2022-12-24 Telephone [facility] 1.2.184.280 [id number] Univers 00:00:00 00:00:00 Jose HEALTH 350.1.13.10 ity of [place] 4.2.7.2.686 Renato as ITZEL?BLEA [phone] [address] MEDICAL OFFICE [facility] 2022-12-24 2022-12-24 Telephone [facility] 1.2.194.959 [id number] Univers 00:00:00 00:00:00 Jose HEALTH 350.1.13.10 ity of [place] 4.2.7.2.686 Renato as ITZEL?BLEA [phone] [address] OFFICE [facility] 2022-12-23 2022-12-23 Telephone [facility] 1.2.274.624 [id number] Univers 00:00:00 00:00:00 [facility] 350.1.13.10 ity of [place] 4.2.7.2.686 Renato as ITZEL?BLEA [id number] Or rogelio BRIDGES[address] 2022-12-20 2022-12-22 Outpatient ALISTAIR JAMIL, [facility] Surgery [id number] SLE 05:35:00 12:40:00 [place] 2022-12-20 2022-12-20 Outpatient ALISTAIR SHELDON, [facility] [id number] SLE 16:23:01 23:59:00 JC 2022-12-18 2022-12-18 [place] [facility] 1.2.864.061 [id number] Univers 00:00:00 00:00:00 [facility] 350.1.13.10 ity of [place] 4.2.7.2.686 Renato as ITZEL?BLEA [id number] [address] 2022-12-16 2022-12-16 Outpatient [facility] [id number] Univers 08:30:00 08:30:00 CHANEL james [facility] 2022-12-10 2022-12-10 Outpatient Allyssa [facility] [id number] Univers 11:00:00 11:00:00 MARK james [facility] 2022-12-06 2022-12-07 Outpatient ALISTAIR BETH, [facility] Surgery [id number] SLE 07:19:00 15:47:00 YANDEL 2022-12-02 2022-12-02 Outpatient Allyssa [facility] [id number] Univers 11:00:00 11:00:00 MARK james [facility] 2022-11-26 2022-11-26 Transition ÁNGELA Phelps 1.2.840.114 10 [id number] Univers 00:00:00 00:00:00 of Care Estela NAVAS 350.1.13.10 i ty of [place] 4.2.7.2.686 [place] [id number] [address] 2022-11-22 2022-11-24 Inpatient X ELIZA [facility] DANAY [id number] Univers 00:35:00 16:21:00 ZULEIKA james [facility] 2022-11-22 2022-11-24 [facility] Tang [facility] 1.2.840. 114 [id number] Univers 00:35:00 16:21:00 Encounter Zuleika KayJEFF 350.1.13.10 ity Danelle Heredia 4.2.7.2.686 [facility] [phone] [facility] [address] 2022-11-21 2022-11-21 Nurse JOSE JUAN Jolly 1.2.840.114 [id number] Univers 00:00:00 00:00:00 Triage Angela MAG 350.1.13.10 it y of [facility] 4.2.7.2.686 Renato as [phone] [facility] [address] 2022-11-15 2022-11-15 Outpatient Allyssa KHAN [facility] [id number] Univers 14:30:00 14:40:57 [facility] 2022-11-15 2022-11-15 Office [facility] 1.2.840.114 [id number] Univers 14:30:00 14:40:[address] [facility] 350.1.13.10 it y [facility] 4.2.7.2.686 Renato as ITZEL?BLEA [id number] [address] MEDICAL OFFICE BUILDING 2022-11-12 2022-11-12 Outpatient Allyssa KHAN [facility] [id number] Univers 15:30:00 15:30:00 CHANEL riley [facility] 2022-11-12 2022-11-12 Outpatient Allyssa KHAN [facility] [id number] Univers 11:00:00 11:00:00 CHANEL riley [facility] 2022-11-11 2022-11-11 Outpatient JOSE LIZ [facility] [id number] Univers 14:20:00 14:38:06 JOSE ANDERSON [facility] 2022-11-11 2022-11-11 Office [facility] 1.2.840.114 [id number] Univers 14:20:00 14:38:06 Visit [facility] 350.1.13.10 ity [facility] 4.2.7.2.686 Renato as ITZEL?BLEA [id number] [address] OFFICE [facility] 2022-11-05 2022-11-05 Outpatient R PATRICK ANDERSONINE [facility] [id number] Univers 14:40:00 15:04:01 KLEJOSE Lin [facility] 2022-11-05 2022-11-05 Office [facility] 1.2.840.114 [id number] Univers 14:40:00 15:04:01 Visit [facility] 350.1.13.10 ity of [place] 4.2.7.2.686 Renato as ITZEL?BLEA [id number] [address] OFFICE [facility] 2022-11-01 2022-11-01 Outpatient R JUSTIN JOSE [facility] [id number] Univers 10:44:42 23:59:00 JOSE ANDERSON [facility] 2022-11-01 2022-11-01 Office [facility] 1.2.840.114 [id number] Univers 10:00:00 10:44:30 Visit [facility] 350.1.13.10 ity [facility] 4.2.7.2.686 Renato as ITZEL?BLEA [phone] [address] OFFICE [facility] 2022-11-01 2022-11-01 Telephone [facility] 1.2.688.132 [id number] Univers 00:00:00 00:00:00 Jose HEALTH 350.1.13.10 ity of [place] 4.2.7.2.686 Renato as ITZEL?BLEA [id number] [address] OFFICE [facility] 2022-10-29 2022-10-29 Outpatient R JUSTIN [facility] [id number] Univers 15:20:00 15:20:00 [facility] 2022-10-28 2022-10-28 Outpatient R AKINJULIANA [facility] [id number] Univers 13:30:00 13:30:00 CARL james o f [facility] 2022-10-16 2022-10-16 Emergency [facility] [id number] Univers 01:54:00 03:09:00 NAYLATATA james [facility] 2022-10-16 2022-10-16 Emergency [facility] 1.2.334.155 [id number] Univers 01:54:00 03:09:00 Nayla S [place] 350.1.13.10 i ty of [place] 4.2.7.2.686 [place] [id number] [facility] [address] 2022-10-16 2022-10-16 Nurse JOSE JUAN Purdy 1.2.840.114 [id number] Univers 00:00:00 00:00:00 Triage Nighat HATHAWAY 350.1.13.10 it y of [facility] 4.2.7.2.686 Renato as [phone] [facility] [address] 2022-10-11 2022-10-11 Outpatient R [facility] [id number] Univers 14:00:00 14:42:36 [facility] 2022-10-11 2022-10-11 Office [facility] 1.2.840.114 [id number] Univers 14:00:00 14:42:36 Visit [facility] 350.1.13.10 ity of [place] 4.2.7.2.686 Renato as ITZEL?BLEA [phone] Or rogelio GUTIERREZ [address] MEDICAL OFFICE BUILDING 2022-10-03 2022-10-03 Outpatient R [facility] [id number] Univers 14:20:00 14:20:00 [facility] 2022-10-02 2022-10-02 Telephone Earnestine [facility] 1.2.840.114 [id number] Univers 00:00:00 00:00:00 , [facility] 350.1.13.10 ity of [facility] 4.2.7.2.686 Renato as ITZEL?BLEA [phone] Or rogelio GUTIERREZ [address] MEDICAL OFFICE BUILDING 2022-10-01 2022-10-01 Outpatient R EARNESTINE [facility] [id number] Univers 15:15:00 15:36:05 , LAWSON lin [facility] 2022-10-01 2022-10-01 Office [facility] 1.2.840.114 10 [id number] Univers 15:15:00 15:36:05 Visit , Lawson GOULD 350.1.13.10 ity of [place] 4.2.7.2.686 Renato as ITZEL?BLEA [phone] Or rogelio [address] MEDICAL OFFICE BUILDING 2022-09-26 2022-09-26 Outpatient R JUSTIN [facility] [id number] Univers 09:40:00 09:40:00 JOSE [facility] 2022-09-26 2022-09-26 Emergency X CAROLINA [facility] ERT [id number] Univers 04:56:00 06:44:00 DORENE [facility] 2022-09-26 2022-09-26 Emergency [facility] 1.2.370.221 [id number] Univers 04:56:00 06:44:00 Dorene SCOTT 350.1.13.10 ity of [place] 4.2.7.2.686 [facility] [phone] [facility] [address] 2022-09-11 2022-09-11 Orders Doctor JOSE JUAN 1.2.840.114 [id number] Univers 00:00:00 00:00:00 Only Unassigned, MAG 350.1.13.10 ity of [place] [facility] 4.2.7.2.686 Renato as [phone] [facility] [address] 2022-09-10 2022-09-10 Outpatient R [facility] [id number] Univers 13:30:00 13:30:00 ity [facility] 2022-09-09 2022-09-09 Outpatient R [facility] [id number] Univers 13:00:00 13:00:00 EWA ity [facility] 2022-09-09 2022-09-09 Emergency X SHAHEEN [facility] ERT [id number] Univers 06:45:00 12:15:00 PRICILLA [facility] 2022-09-09 2022-09-09 Emergency [facility] 1.2.840.114 [id number] Univers 06:45:00 12:15:00 Pricilla [place] 350.1.13.10 ity reymundo [facility] 4.2.7.2.686 [place] [facility] [phone] [facility] [address] 2022-09-04 2022-09-04 Outpatient Allyssa CAVAZOS [facility] [id number] Univers 09:30:00 10:13:41 WAYNE [facility] 2022-09-04 2022-09-04 Orders Doctor JOSE JUAN 1.2.840.114 [id number] Univers 00:00:00 00:00:00 Only Unassigned, MAG 350.1.13.10 it[facility] 4.2.7.2.686 Renato as [phone] [facility] [address] 2022-08-29 2022-08-29 Outpatient Allyssa [facility] [id number] Univers 10:40:00 11:30:31 [facility] 2022-08-29 2022-08-29 Office [facility] 1.2.840.114 [id number] Univers 10:40:00 11:30:31 Visit [facility] 350.1.13.10 [facility] 4.2.7.2.686 Renato as ITZEL?BLEA [id number] [address] MEDICAL OFFICE BUILDING 2022-08-23 2022-08-23 Outpatient Allyssa ANDERSON [facility] [id number] Univers 09:20:00 09:20:00 JOSE [facility] 2022-08-22 2022-08-22 Outpatient Allyssa [facility] [id number] Univers 16:00:00 16:00:00 [facility] 2022-08-21 2022-08-21 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 [employer], Ang - Cooper [facility] 1.2.840.1 14 [id number] Univers 16:30:00 16:45:00 Visit Megan Mitchell 350.1.13.10 [facility] 4.2.7.2.686 Renato as ITZEL?BLEA [phone] Or rogelio GUTIERREZ [address] MEDICAL OFFICE [facility] 2022-08-21 2022-08-21 Outpatient R STEPHEN [facility] [id number] Univers 15:30:00 16:26:48 MEGAN itriley [facility] 2022-08-21 2022-08-21 Office [facility] 1.2.840.114 [id number] Univers 15:30:00 16:00:00 Visit [facility] 350.1.13.10 it y of [place] 4.2.7.2.686 Renato as ITZEL?BLEA [phone] [facility] [facility] OFFICE [facility] 2022-08-21 2022-08-21 Outpatient R [facility] [id number] Univers 08:45:00 08:45:00 EWA [facility] 2022-08-21 2022-08-21 Telephone [facility] 1.2.765.014 [id number] Univers 00:00:00 00:00:00 [facility] 350.1.13.10 ity of [place] 4.2.7.2.686 Renato as ITZEL?BLEA [phone] [address] OFFICE [facility] 2022-08-20 2022-08-20 Emergency X NICOLE, [facility] ERT [id number] Univers 18:00:00 21:10:00 [facility] 2022-08-20 2022-08-20 Emergency [facility] 1.2.840.114 [id number] Univers 18:00:00 21:10:00 Yonis A [place] 350.1.13.10 ity of [place] 4.2.7.2.686 [place] [id number] [facility] [address] 2022-08-19 2022-08-19 Outpatient R OWEN [facility] [id number] Univers 10:20:00 10:28:59 JOANNA itriley [facility] 2022-08-19 2022-08-19 Urgent Joanna Weaver [facility] 1.2.840.114 [id number] Univers 10:20:00 10:28:59 Care Unknown, Attending HEALTH 350.1.13.10 ity of [place] 4.2.7.2.686 Renato as ITZEL?BLEA [phone] [address] MEDICAL OFFICE BUILDING 2022-08-14 2022-08-14 Outpatient R [facility] [id number] Univers 08:35:14 23:59:00 JOSE ity [facility] 2022-08-14 2022-08-14 Hospital [facility] 1.2.840.114 [id number] Univers 08:35:14 23:59:00 Encounter Jose YUEJEFF 350.1.13.10 ity of [place] 4.2.7.2.686 [place] [id number] [facility] [address] 2022-08-12 2022-08-12 Telephone ÁNGELA Anderson 1.2.194.481 [id number] Univers 00:00:00 00:00:00 Jose NAVAS 350.1.13.10 ity of [place]2.7.2.686 [place] [id number] [facility] [address] 2022-08-06 2022-08-06 Outpatient R [facility] [id number] Univers 10:40:00 11:22:51 JOANNA riley [facility] 2022-08-06 2022-08-06 Urgent OwenMarcialJoanna [facility] 1.2.840.114 [id number] Univers 10:40:00 11:22:51 Care Unknown, Attending HEALTH 350.1.13.10 ity [facility] 4.2.7.2.686 Renato as ITZEL?BLEA [id number] [address] MEDICAL OFFICE [facility] 2022-07-09 2022-07-17 Inpatient ER SHANNON, [facility] Emergency [id number] [facility] 19:59:00 15:04:00 RANI 2022-07-04 2022-07-[address] MacJohanna [id number] 00:00:00 00:00:00 Only Jonnathan [facility] 2022-06-25 2022-06-25 Outpatient VINNIE Cat [facility] [id number] [facility] 08:40:00 08:40:[address] [facility] 2022-06-19 2022-06-[address] [facility] [id number] 00:00:00 00:00:00 Only Jonnathan [facility] 2022-06-13 2022-06-13 Orders Doctor BORREGO 1.2.840.114 [id number] Univers 00:00:00 00:00:00 Only Unassigned, MAG 350.1.13.10 ity of [place] [facility] 4.2.7.2.686 Renato as [id number] [place] [address] 2022-06-12 2022-06-12 Emergency Stephane, 1.2.840.1 [id number] Methodi 16:09:00 21:30:00 Kelvin Santana [address]61.1.[address] 3.430.2.7 Hospit a .3.645578 l .8 2022-06-12 2022-06-12 Emergency Stephane, 1.2.840.1 [id number] Methodi 16:09:00 21:30:00 Kelvin Santana [address]2611.1.[address] 3.430.2.7 Hospit a .3.984919 l .8 2022-06-12 2022-06-12 Travel 1.2.840.1 1.2.281.383 0655 [id number] Methodi 00:00:00 00:00:[address] 3.430.2.7 0.2.7.3.698 Ho spita .3.697770 084.8 l .8 2022-06-12 2022-06-12 Travel 1.2.840.1 1.2.025.706 3073 [id number] Methodi 00:00:00 00:00:[address] 3.430.2.7 0.2.7.3.698 Ho spita .3.054898 084.8 l .8 2022-06-11 2022-06-11 Emergency E [facility] [id number] 16:40:00 18:16:00 [facility] 2022-06-11 2022-06-11 [facility] [id number] [id number] 13:00:00 13:59:58 Visit [facility] 2022-06-10 2022-06-10 [facility] [id number] [id number] 00:[facility]00 00:00:00 [facility] 2022-06-09 2022-06-09 Letter JOSE JUAN [place] 1.2.840.114 [id number] Univers 00:00:00 00:00:00 (Out) Nidhi HATHAWAY 350.1.13.10 it y of [facility] 4.2.7.2.686 Renato as [phone] [address] 2022-06-08 2022-06-08 Urgent Provider, [facility] 1.2.840.114 [id number] [facility] 09:40:00 10:00:00 Care Unknown, Attending HEALTH 350.1.13.10 ity [facility] 4.2.7.2.686 Renato as ITZEL?BLEA [phone] [address] MEDICAL OFFICE BUILDING 2022-06-08 2022-06-08 Outpatient Allyssa KHALIL [facility] [id number] Univers 09:40:00 09:53:06 EMERSON roblero [facility] 2022-06-08 2022-06-08 Outpatient Allyssa ANDERSON [facility] [id number] [facility] 09:15:00 09:15:00 JOSE james [facility] 2022-06-07 2022-06-07 Outpatient ALISTAIR [facility] [id number] [facility] 10:25:39 23:59:00 JONNATHAN 2022-06-07 2022-06-07 [facility] [id number] 10:25:39 10:25:[address] [facility] 2022-06-06 2022-06-06 Outside [facility] [id number] [id number] 00:00:00 00:00:00 Orders [facility] 2022-06-05 2022-06-[address] [facility] [id number] 00:00:00 00:00:00 [facility] 2022-05-31 2022-06-[address] [facility] [id number] [id number] 08:15:00 15:23:[address] 2022-05-16 2022-06-[address] [facility] [id number] 09:00:00 13:39:11 Visit [facility] 2022-06-03 2022-06-03 Outpatient Allyssa WEAVER [facility] [id number] Univers 13:20:00 13:20:00 JOANNA [facility] 2022-06-01 2022-06-02 Emergency ER JULIO CÉSAR, [facility] Emergency [id number] [facility] 18:20:00 03:42:00 [facility] 2022-06-01 2022-06-02 Emergency ER [place], [facility] [id number] [facility] 18:20:00 03:42:00 [facility] 2022-06-02 2022-06-[address] [facility] [id number] 00:00:00 00:00:00 Only [facility] 2022-05-16 2022-06-01 Inpatient UR [facility] General Med [id number] [facility] 15:08:00 18:09:00 5 2022-05-31 2022-05-31 Orders Mac, [facility] [id number] [id number] 00:00:00 00:00:00 Only [facility] 2022-05-29 2022-05-29 Emergency X FANNY, [facility] ERT [id number] Univers 06:05:00 09:49:00 DAYA [facility] 2022-05-29 2022-05-29 Emergency Amilcar Ang [facility] [id number] Univers 06:05:00 09:49:00 Daya Loera [id number] ity of [place] [id number] [facility] [id number] [address] 2022-05-22 2022-05-22 Emergency X PAPITO, [facility] ERT [id number] Univers 07:48:00 10:55:00 CARLITO james [facility] 2022-05-22 2022-05-22 [facility] [id number] Univers 07:48:00 10:55:00 Carlito SCOTT [id number] [facility] [id number] [facility] [id number] [address] 2022-05-20 2022-05-20 Emergency ER [facility] [id number] [facility] 13:07:00 18:45:00 2022-05-20 2022-05-[address] [facility] [id number] 13:07:00 18:45:00 [facility] 2022-05-16 2022-05-17 [facility] [id number] 15:08:00 15:00:[address] [place] [address] 2022-05-07 2022-05-[address] [facility] [id number] 15:00:00 16:08:25 visit [facility] 2022-05-06 2022-05-[address] [facility] [id number] [id number] 00:00:00 00:00:00 [facility] 2022-05-03 2022-05-03 [id number] Univers 00:00:00 00:00:00 [facility] 350.1.13.10 ity of [place] 4.2.7.2.686 Renato as ITZEL?BLEA [phone] Or rogelio [address] OFFICE [facility] 2022-05-02 2022-05-02 Valentina Anderson [facility] 1.2.840.114 [id number] Univers 00:00:00 00:00:00 [facility] 350.1.13.10 [facility] 4.2.7.2.686 Renato as ITZEL?BLEA [phone] [address] OFFICE [facility] 2022-04-24 2022-04-29 Inpatient EL HANNAH, [facility] [id number] SLSL 09:57:00 15:51:00 QUYNH 2022-04-24 2022-04-[address] [facility] [id number] [facility] 09:57:00 15:51:[address] [facility] 2022-04-24 2022-04-[address] [facility] [id number] [id number] 11:50:00 13:20:00 Jonnathan [facility] 2022-04-24 2022-04-24 An[address]hesia Juan Carlos Logan [facility] [id number] [facility] 11:48:00 12:57:00 Event [facility] 2022-04-24 2022-04-24 Travel [facility] [id number] [facility]00 00:00:00 [facility] 2022-04-22 2022-04-22 Outpatient EL [facility] [id number] SLS 09:18:12 23:59:00 2022-04-22 2022-04-22 [facility] [id number] 09:18:12 23:59:00 Encounter [facility] 2022-04-19 2022-04-[address] [facility] [id number] [id number] 00:00:00 00:00:00 Only [facility] 2022-04-19 2022-04-19 Travel [facility] [id number] [facility] 00:[facility]00 00:00:00 [facility] 2022-04-18 2022-04-18 Telephone Justin [facility] [id number] [id number] Univers 00:00:00 00:00:00 [facility] 350.1.13.10 ity of [place] 4.2.7.2.686 Renato as ITZEL?BLEA [phone] [address] MEDICAL OFFICE BUILDING 2022-04-16 2022-04-16 Emergency [facility] [id number] Univers 10:20:00 13:30:00 BRITTANI ity [facility] 2022-04-16 2022-04-16 Emergency [facility] 1.2.402.466 [id number] Univers 10:20:00 13:30:[address] [facility] 350.1.13.10 it y of [place]2.7.2.[place] [phone] [facility] [address] ([facility]) 2022-04-10 2022-04-[address] [facility] [id number] [id number] 00:00:00 00:00:00 Jonnathan [facility] 2022-04-08 2022-04-08 Emergency X Costa VELASCO [facility] ERT [id number] Univers 08:48:00 12:36:00 ity of [facility] 2022-04-08 2022-04-08 Emergency Costa Velasco [facility] 1.2.840.114 [id number] Univers 08:48:00 12:36:00 Deepali SCOTT 350.1.13.10 i ty of [place] 4.2.7.2.686 [place] [phone] [place] 3[address] [place] 2022-04-08 2022-04-08 Emergency X Costa VELASCO [facility] ERT [id number] Univers 08:48:00 12:36:00 ity [facility] 2022-04-05 2022-04-05 [facility] C[facility] Hoffman 1.2.840.114 [id number] Univers 09:54:00 23:59:00 Encounter Iqra Lopez 350.1.13.10 ity of [place] 4.2.7.2.686 Renato as [phone] [address] 2022-04-05 2022-04-05 Refill Justin [facility] 1.2.840.114 [id number] Univers 00:00:00 00:00:00 Jose [facility] 350.1.13.10 ity of [place] 4.2.7.2.686 Renato as ITZEL?BLEA [phone] Or rogelio BRIDGES 044 [facility] OFFICE [facility] 2022-04-04 2022-04-04 Outpatient EL SLSL SLSL [id number] SLSL 17:21:49 17:21:49 2022-04-04 2022-04-[address] [facility] [id number] [facility] 14:15:00 15:03:53 Visit [facility] 2022-04-04 2022-04-04 Supervisor [employer], Ang - Db [facility] 1.2.840.1 [id number] Univers 11:00:00 11:25:02 Visit Justin [facility] 350.1.13.10 ity of [place] 4.2.7.2.686 Renato as ITZEL?BLEA [phone] [address] 2022-04-04 2022-04-04 Supervisor [employer], Ang - Db [facility] 1.2.840.1 14 [id number] Univers 11:00:00 11:15:00 [facility] 350.1.13.10 ity of [place] 4.2.7.2.686 Renato as ITZEL?BLEA [phone] [facility] [address] OFFICE [facility] 2022-04-04 2022-04-04 Outpatient R JUSTIN [facility] [id number] Univers 11:00:00 11:00:00 JOSE james [facility] 2022-04-04 2022-04-04 Office Justin [facility] 1.2.840.114 [id number] Univers 09:20:00 10:56:32 Visit [facility] 350.1.13.10 ity of [place] 4.2.7.2.686 Renato as ITZEL?BLEA [phone] [facility] [address] MEDICAL OFFICE [facility] 2022-04-04 2022-04-04 Outpatient R JUSTIN [facility] [id number] Univers 09:20:00 10:56:32 JOSE [facility] 2022-04-04 2022-04-04 Outpatient Tyler [facility] H[facility]U [id number] [facility] 07:27:00 07:27:00 , [address] 2022-04-04 2022-04-04 Letter JOSE JUAN [place] 1.2.840.114 [id number] Univers 00:00:00 00:00:00 (Out) Nidhi HATHAWAY 350.1.13.10 it y of [facility] 4.2.7.2.686 Renato as [phone] [address] 2022-04-03 2022-04-03 Outpatient [facility]lysas [facility] [id number] Univers 09:40:00 10:14:19 JOANNA[facility] 2022-04-03 2022-04-03 [facility] 1.2.840.114 [id number] Univers 09:40:00 10:14:19 Care [facility] 350.1.13.10 it y of [place] 4.2.7.2.686 Renato as ITZEL?BLEA [phone] [facility] [address] MEDICAL OFFICE [facility] 2022-04-03 2022-04-03 Outpatient Allyssa WEAVER [facility] [id number] Univers 09:40:00 10:14:19 JOANNAHCA [facility] 2022-04-03 2022-04-03 Outpatient Allyssa [facility] [id number] Univers 09:30:00 09:30:00 [facility] 2022-04-03 2022-04-03 [facility] 1.2.840.114 [id number] Univers 00:00:00 00:00:00 Jose HEALTH 350.1.13.10 ity of [place] 4.2.7.2.686 Renato as ITZEL?BLEA [phone] [address] MEDICAL OFFICE [facility] 2022-03-31 2022-03-[address] [facility] [id number] 00:00:00 00:00:00 Only [facility] 2022-03-29 2022-03-29 Emergency X FISH, [facility] ERT [id number] Univers 10:38:00 14:45:00 MAGUE james [facility] 2022-03-29 2022-03-29 [facility] 1.2.840.114 [id number] Univers 10:38:00 14:45:00 Mague SCOTT 350.1.13.10 i ty [facility] 4.2.7.2.686 [facility] [phone] [address] 2022-03-29 2022-03-[address] [facility] [id number] 00:00:00 00:00:00 [facility] 2022-03-18 2022-03-21 Inpatient ER YESSICA, [facility] Emergency [id number] [facility] 15:03:00 10:20:00 FEDERICO 2022-03-18 2022-03-21 Hospital ER Juan Carlos Chamorro [facility] [id number] 15:03:00 10:20:00 Encounter Libby Hodges Matthew C [facility], [facility] enter 2022-03-20 2022-03-20 [address] Juan Carlos Logan [facility] [id number] 20:30:00 21:18:[address] [facility] 2022-03-20 2022-03-[address] [facility] [id number] [id number] 19:00:00 20:17:00 [facility] 2022-03-18 2022-03-[address] [facility] [id number] [id number] 13:00:00 13:13:26 visit [facility] 2022-03-14 2022-03-14 Outpatient ALISTAIR WATTS [facility] Surgery [id number] SLSL 05:41:00 10:50:00 JONNATHAN 2022-03-14 2022-03-14 [facility] [id number] 05:41:00 10:50:[address] [facility] 2022-03-14 2022-03-[address] [facility] [id number] 07:48:00 09:19:[address] [facility] 2022-03-14 2022-03-14 [facility] [id number] 07:30:00 09:00:00 [facility] 2022-03-14 2022-03-14 Travel [facility] [id number] [facility] 00:[facility]:00 00:00:00 [facility] 2022-03-11 2022-03-11 Outpatient EL SLSL SLSL [id number] SLSL 10:52:28 23:59:00 2022-03-11 2022-03-11 Hospital [facility] [id number] 10:52:28 23:59:00 Encounter [facility] 2022-03-08 2022-03-08 [facility] [id number] 00:00:00 00:00:00 Only [facility] 2022-03-07 2022-03-07 Travel [facility] [id number] [facility] 00:00[facility]00 00:00:00 [facility] 2022-03-06 2022-03-[address] [facility] [id number] 00:00:00 00:00:00 [facility] 2022-03-04 2022-03-04 Outpatient EL SLSL SLSL [id number] SLSL 12:54:17 12:54:17 2022-03-04 2022-03-04 Clinical EL Nurse, [facility] [id number] 10:30:00 12:02:28 Support Sl [facility] 2022-02-26 2022-02-26 Office EL Mac, [facility] [id number] 16:00:00 16:32:10 Visit [facility] 2022-02-26 2022-02-26 Office EL Ultrasound, [facility] [id number] 15:00:00 16:01:21 Visit Sl Sl [facility] 2022-01-22 2022-01-22 Procedure EL Mac, [facility] [id number] [id number] 13:15:00 13:58:33 visit [facility] 2022-01-17 2022-01-19 Outpatient E ALEKSANDR [facility] MED [id number] [facility] 10:05:00 16:27:00 MO [facility] 2022-02-14 2022-01-17 Inpatient VINNIE Cat [facility] [id number] [facility] 09:30:00 09:15:[address] [facility] 2022-01-15 2022-01-15 Emergency X , [facility] ERT [id number] Univers 06:38:00 09:45:00 MARINE james [facility] 2022-01-15 2022-01-15 Emergency [facility] 1.2.017.709 [id number] Univers 06:38:00 09:45:00 Marine SCOTT 350.1.13.10 [facility] 4.2.7.2.686 [facility] [phone] [place] [address] [address] 2022-01-13 2022-01-13 Emergency E DE, [facility] ECC [id number] [facility] 12:54:00 15:30:00 TREVON [facility] 2022-01-10 2022-01-10 Emergency [facility] [id number] 17:29:00 20:21:00 [facility] 2022-01-10 2022-01-10 Emergency [facility] Emergency [id number] [facility] 17:29:00 20:21:00 KAYODE 2022-01-06 2022-01-06 Orders Mac, [facility] [id number] 00:00:00 00:00:00 Only [facility] 2022-01-04 2022-01-04 [facility] Mac, [facility] [id number] 11:30:00 16:15:[address] [facility] 2022-01-04 2022-01-04 Outpatient MAC, [facility] Surgery [id number] [facility] 11:30:00 16:15:00 JONNATHAN 2022-01-04 2022-01-04 [facility] [id number] 13:30:00 15:30:00 [facility] 2022-01-04 2022-01-04 [address] Juan [address] Logan [facility] [id number] 13:20:00 14:41:[address] Event [address] Krystle Serjio [facility] 2022-01-04 2022-01-04 Travel [facility] [id number] [facility] 00:00:00 00:00:00 [facility] 2022-01-01 2022-01-01 [facility] [id number] 09:40:08 23:59:00 Encounter [facility] 2022-01-01 2022-01-01 Outpatient [facility] [id number] [facility] 09:40:08 23:59:00 2021-12-31 2021-12-[address] [facility] [id number] 00:00:00 00:00:00 [facility] 2021-12-28 2021-12-28 Travel [facility] [id number] [facility] 00:[facility]00 00:00:00 [facility] 2021-12-28 2021-12-28 Telephone Mac, [facility] [id number] 00:00:00 00:00:00 [facility] 2021-12-26 2021-12-26 Telephone Mac, [facility] [id number] [id number] 00:00:00 00:00:00 [facility] 2021-12-25 2021-12-25 Office EL Mac, [facility] [id number] 08:00:00 11:25:55 Visit [facility] 2021-12-25 2021-12-25 Office EL [facility], [facility] [id number] 08:30:00 11:17:55 Visit Slmg Sl [facility] 2021-12-23 2021-12-23 Emergency E [facility]ILA [facility] [id number] [facility] 14:25:00 16:35:00 JADA Medica [facility] 2021-12-22 2021-12-22 Emergency E CANDELARIO ZAMORA [facility] ECC [id number] [facility] 12:41:00 21:07:00 Medica l [place] 2021-11-12 2021-11-12 Outpatient R MARIAH [facility] [id number] Univers 09:30:00 09:30:00 EWA [facility] 2021-11-05 2021-11-05 Outpatient Allyssa LEMUS [facility] [id number] Univers 09:15:00 11:02:35 EWA james [facility] 2021-11-05 2021-11-05 Ancillary Danelle Drake [facility] 1.2.840. 114 [id number] Univers 09:15:00 11:02:35 Visit Ewa Lemus 350.1.13.10 ity of [place] 4.2.7.2.686 [place] PROFESS[place] [id number] Or dical [facility] 179 [facility] 2021-11-05 2021-11-05 Orders Doctor JOSE JUAN 1.2.840.114 [id number] Univers 00:00:00 00:00:00 Only Unassigned, MAG 350.1.13.10 ity of [place] [facility] 4.2.7.2.686 Renato as [phone] [place] [address] 2021-08-24 2021-08-24 Outpatient MAC, [facility] [id number] SLSL 10:19:08 23:59:00 JONNATHAN 2021-08-24 2021-08-24 [facility], [facility] [id number] 10:15:00 23:59:[address] [facility] 2021-08-24 2021-08-24 Clinical Nurse, [facility] [id number] [id number] 12:30:00 12:45:00 Support [facility] 2021-08-24 2021-08-[address] [id number] [id number] 00:00:00 00:00:00 [facility] 2021-08-24 2021-08-24 Outside [facility], [facility] [id number] 00:00:00 00:00:00 Orders [facility] 2021-08-22 2021-08-[address] [id number] [id number] 00:00:00 00:00:00 [facility] 2021-08-20 2021-08-20 Outpatient [facility]H CO[facility] PIJCHARMAINEDA [facility]ECTOR [facility] 00:00:00 00:00:00 -[id number] 2021-08-15 2021-08-[address] [id number] [id number] 00:00:00 00:00:00 [facility] 2021-08-14 2021-08-14 Office Mac, [facility] [id number] 13:30:00 15:02:06 Visit [facility] 2021-08-14 2021-08-14 Outpatient COH COH PIJFIDA [facility] 00:00:00 00:00:00 - 4 2021-08-08 2021-08-08 Outpatient FBCOVID FBCOVID [id number] 4-2 FBCOVID 00:00:00 00:00:00 [id number] 2021-06-20 2021-06-20 Emergency ER Julio César, [facility] [id number] 11:04:00 14:58:00 [facility] 2021-06-20 2021-06-20 Emergency ER JULIO CÉSAR, SLS Emergency [id number] SLSL 11:04:00 14:58:00 [facility] 2021-06-20 2021-06-20 Travel [facility] [id number] [facility] 00:[facility]00 00:00:00 [facility] 2021-06-19 2021-06-19 Emergency E SONG, [facility] ECC [id number] [facility] 13:16:00 16:13:00 STORMY Medica l [place] 2021-06-15 2021-06-15 Outpatient C LIZETT, [facility] RAD [id number] [facility] 14:03:00 23:59:00 TOD Medica [facility] 2021-03-20 2021-03-20 Outpatient DINA[id number] AccessH 15:51:00 15:51:00 ealt 2021-03-20 2021-03-20 Outpatient DINA, SON [facility] [id number] AccessH 15:51:00 15:51:00 e2-5mu3-15u cb6-47b5-9 ealt 0-[id number] 0f4 3fa6d6 2020-11-15 2021-03-08 Outpatient Johanna JOHN, [facility] PT [id number] [facility] 08:00:00 23:59:00 MEHJAANTONIO Medic al [place] 2021-03-06 2021-03-06 Emergency E DONN, [facility] WWECC [id number] [facility] 21:10:00 22:50:00 ANTHONY Medic al [place] 2021-02-27 2021-02-27 Outpatient DINA, SON [facility] [id number] AccessH 09:58:00 09:58:00 ealt 2021-02-27 2021-02-27 Outpatient DINA SON [facility] [id number] AccessH 09:58:00 09:58:00 e2-3py5-62f 2c7-3785-2 ealt 0-ka0dlw512 3fa-efed4c 0f4 8a8dd6 2021-02-26 2021-02-26 Outpatient DINA, KIRSTEN [facility] [id number] AccessH 15:00:00 15:00:00 ealt 2021-02-26 2021-02-26 Outpatient KIRSTEN ARROYO [facility] [id number] AccessH 15:00:00 15:00:00 e2-8ea2-31j 995-453e-a [facility] 0-zd0jeh352 4v6-331vka 0f4 [id number] 2021-02-17 2021-02-17 Emergency [facility] [id number] [facility] 14:53:00 16:10:00 [facility] 2021-02-07 2021-02-07 Emergency Oswald, 1.2.840.1 [id number] Methodi 11:10:00 16:11:00 Jose Juan 68283.1.[address] Sangeeth 3.430.2.7 Hospi ta Fredawin .3.580781 l .8 2020-11-30 2020-12-03 Emergency Oswald, Jose [facility] Freda in 1.2.840.1 [id number] Methodi 13:38:00 15:23:00 Nazanin Ponce 56146.1.[address] 3.430.2.7 Hospit a .3.350810 l .8 2020-12-03 2020-12-03 Anesthesia Manuel, 1.2.840.1 [id number] Methodi 10:06:00 10:38:00 Event Polo 16096.1.[address] Katie 3.430.2.7 Hospit a .3.147379 l .8 2020-12-03 2020-12-03 Surgery [facility] 1.2.840.1 [id number] Methodi 09:30:00 09:55:00 , Surjit 64236.1.[address] Shea 3.430.2.7 Hospit a .3.820342 l .8 2020-11-30 2020-11-30 Outpatient C MAINOR CARLOS [facility] PT [id number] [facility] 08:28:00 08:28:00 Medica l [place] 2020-10-30 2020-10-30 Emergency E AGUAYO, [facility] [id number] [facility] 22:44:00 23:45:00 KARTHIKEYAN Medic al [place] 2020-09-21 2020-09-21 Outpatient ALICIATHOMAS [facility] [id number] AccessH 08:31:00 08:31:00 ealth 2020-09-21 2020-09-21 Outpatient ALICIATHOMAS ROSALES [facility] [id number] AccessH 08:31:00 08:31:00 e2-7pp5-96z 87a-43a7-b ealth 0-[id number] bf6-96b61b 0f4 [id number] 2020-09-13 2020-09-13 Outpatient KIRSTEN ARROYO [facility] [id number] AccessH 14:22:00 14:22:00 e2-3yf7-19j o0c-2glb-j ealth 0-pj2acw839 [id number]-e801c4 0f4 1dbadb 2020-07-11 2020-07-11 Emergency E BRADSHAW[facility] [id number] [facility] 08:15:00 18:45:00 QUYNH Medica l [facility] 2020-06-27 2020-06-27 Outpatient LIND[facility] [id number] AccessH 15:11:00 15:11:00 RAINA ealt 2020-06-27 2020-06-27 Outpatient LIND, [facility] [id number] AccessH 15:11:00 15:11:00 RAINA e2-5nv5-76c 2j7-64r1-4 ealth 0-cj0cep605 bf6-4be42b 0f4 [id number] 2020-06-23 2020-06-23 Outpatient LIND, [facility] [id number] [facility] 13:45:00 13:45:[address] [facility] 2020-06-19 2020-06-19 Outpatient LIND, [facility] [id number] AccessH 13:31:00 13:31:00 RAINA [facility] 2020-06-19 2020-06-19 Outpatient LIND, [facility] [id number] AccessH 13:31:00 13:31:00 RAINA e2-1gf1-52g [id number] [facility] 0-nv9ttm742 [id number]-l13408 0f4 [id number] 2020-06-16 2020-06-16 Emergency E ANGELA, [facility] [id number] [facility] 17:07:00 18:30:00 [facility] 2020-05-02 2020-05-02 Outpatient LIND, [facility] [id number] AccessH 07:40:00 07:40:00 RAINA [facility] 2020-05-02 2020-05-02 Outpatient LIND, [facility] [id number] [facility] 07:40:00 07:40:00 RAINA e2-6yf8-14t 3fa-4376-b ealt [id number] [id number]-25m649 0f4 8xj862 2020-04-26 2020-04-26 Outpatient LIND, [facility] [id number] [facility] 17:30:00 17:30:00 [facility] 2020-04-26 2020-04-26 OFFICE/OUT LIND, [facility] [id number] [facility] 17:30:00 17:30:00 PATIENT RAINA [id number]-[id number] ealt VISIT EST [id number] ab4-be1fd9 c82 140bd5 2020-04-25 2020-04-25 Telephone Surinder, 1.2.840.1 [id number] Method 00:00:00 00:00:00 [place] [id number] 3.430.2.7 Hospit a .3.218292 l .8 2020-04-03 2020-04-03 Emergency ER [facility] Emergency [id number] [facility] 13:33:00 13:33:00 2019-11-24 2019-11-24 Emergency E JOSEPH [facility] [id number] [place] 16:16:00 18:53:00 [facility] 2019-08-25 2019-08-25 OFFICE/OUT ALICIA, [facility] [id number] [facility] 13:00:00 13:00:00 PATIENT e2-3wb1-93s [id number] ealth VISIT EST [id number] 0f4 e6f56e 2019-08-23 2019-08-23 [facility] [id number] [place] 13:51:00 23:59:00 [facility] 2019-08-09 2019-08-09 [facility] [id number] [place] 10:58:00 23:59:00 [facility] 2019-08-09 2019-08-09 Outpatient ALICIA, THOMAS [facility] [id number] [facility] 11:54:00 11:54:00 e2-3kp6-32e [id number]-6 ealth [id number] 03e-0ac2cb 0f4 bbb9cd 2019-07-27 2019-07-27 Outpatient ALICIA, [facility] [id number] [facility] 08:36:00 08:36:00 e2-2su2-48i 01b-49cd-b ealth [id number]-[id number] 0f4 0by674 2019-07-26 2019-07-26 OFFICE/OUT ALICIA, [facility] [id number] [facility] 10:00:00 10:00:00 PATIENT e2-3pa8-06j [id number] ealt VISIT NEW [id number]-[id number] 0f4 8x397y 2019-07-06 2019-07-06 Outpatient C JOHN, [facility] [id number] 15:11:00 23:59:00 [facility] 2019-06-06 2019-06-06 Emergency E JOSEPH, [facility] [id number] [place] 08:50:00 10:45:00 [facility] 2019-06-05 2019-06-05 Emergency E RUIZ, [facility] [id number] [place] 18:16:00 20:00:00 [facility] 2019-05-28 2019-05-28 Emergency E TDSANDRA, [facility] [id number] [place] 17:43:00 18:58:00 HAS [facility] 2019-05-19 2019-05-19 Outpatient C DENA III, [facility] RAD [id number] [place] 12:14:00 23:59:00 DONAVAN [facility] 2019-05-12 2019-05-14 Outpatient E SHAQUILLE, [facility] MED 035 [id number] [place] 21:11:00 19:00:00 JARVIS [facility] 2019-05-04 2019-05-04 Emergency E EMANI, [facility] ECC [id number] [place] 16:50:00 18:25:00 [facility] 2019-03-08 2019-03-08 Emergency E MHFB [facility]FB 7501 [facility] 18:03:00 18:03:00 2019-02-20 2019-02-20 Emergency E OBED, [facility] ECC [id number] [place] 17:51:00 21:47:00 JOSE JUAN [facility] 2019-02-04 2019-02-04 Emergency E EMANI [facility] ECC [id number] [place] 15:41:00 16:20:00 [facility] 2018-12-28 2018-12-28 Emergency E KRYSTLE LI [facility] ECC [id number] [facility] 07:17:00 09:30:00 [facility] [place] 2018-12-05 2018-12-05 Emergency E KRYSTLE LI [facility] [id number] [facility] 10:45:00 14:13:00 [facility] 2017-06-12 2017-06-12 Outpatient Champjean_P [facility] [address] [place] 00:00:00 00:00:00 [id number] [facility] Results Test Description Test Time Test Comments Results Result Comments Source POCT TEST 2023-03-17 00:43:00 Test Item Value Reference Range Interpretation Comme nts POCT PREG (test code = 1605) Negative On board controls acceptable with C Line (test code = 3574) Yes POCT PREG LOT # (test code = 3575) [id number] POCT PREG TEST DATE (test code = 3576) 05/16/24 Lab Interpretation (test code = 54577-9) Normal [facility] [id number] 23:29:00 Test Item Value Reference Range Interpretation Comments POCT PREG (test code = 1605) Negative On board controls acceptable Yes with C Line (test code = 3574) POCT PREG LOT # (test code = HCG [id number] 3575) POCT PREG TEST DATE 05/16/2024 (test code = 3576) Lab Interpretation (test code Normal = 58108-3) [facility], PERC, EXTERNAL DRAIN 2022-12-25 16:14:00Suspected ptosis of right kidney causing severe chronic pain. Please place right percutaneous nephrostomy tube to aid drainage. MAG 3 T1/2- 12minsReason for Exam:->Kidney anomaly, congenital [facility] 1980 Sex: FFINAL REPORT PROCEDURE: Genitourinary catheter placement Procedural PersonnelAttending physician(s): Ramirez Ernst MD Pre-procedure diagnosis: Right renal pain, suspected right kidney ptosisPost-procedure diagnosis: SameIndication: Intermittent urinary obstruction suspected Complications: No immediate complications. IMPRESSION: Right nephrostomy tube placement. Plan: Drain to gravity. PROCEDURE SUMMARY- Target organ: Unilateral [place] kidney- Image-guided placement of genitourinary catheter(s)- Additional [...] Contrast injection was performed.Genitourinary catheter placed: 8.5 [place] multipurpose Findings: Pigtail formed in the renal pelvisExternal catheter securement: Non-absorbable suture ContrastContrast agent: Isovue 300 Radiation DoseFluoroscopy time (minutes): 2.9 Reference air kerma (mGy): 88.3 Additional DetailsAdditional description of procedure: NoneEquipment details: NoneSpecimens removed: None. A sample was not sent for analysis.Estimated blood loss (mL): Less than 5 Signed: Ramirez Ernst MDReport Verified Date/Time: 12/25/2022 16:14:16 Reading Location: [address] Neuro Reading Room URINALYSIS W SPECIFIC [id number] 20:10:00 Test Item Value Reference Range Interpretation [...] 3267) Lab Interpretation (test code Abnormal = 68000-8) [facility] URIN[facility] W SPECIFIC [id number] 20:10:00 Test Item Value Reference Range Interpretation [...] 3267) Lab Interpretation (test code Abnormal = 58715-8) [facility] METABOLIC [id number] 07:02:00 Test Item Value Reference Range Interpretation [...] not appl icable for dialysis patien ts Reconciliation Specialist ID - ADMINCBC W/PLT COUNT & AUTO [id number] 06:19:17 Test Item Value Reference Range Interpretation [...] PERCENT (BEAKER) (test code = 2801) PROTHROMBIN TIME/[id number] 07:38:11 Test Item Value Reference Range Interpretation Comments PROTIME (BEAKER) (test code = 12.6 seconds 11.9-14.2 759) INR (BEAKER) (test code = 370) 1.00 <=5.90 RECOMMENDED COUMADIN/WARFARIN INR THERAPY RANGESSTANDARD DOSE: 2.0 - 3.0 Includes: PROPHYLAXIS for venous thrombosis, systemic embolization; TREATMENT for venous thrombosis and/or pulmonary embolus.HIGH RISK: Target INR is 2.5-3.5 for patients with mechanical heart valves.CBC W/PLT COUNT & AUTO [id number] 07:31:04 Test Item Value Reference Range Interpretation [...] H PERCENT (BEAKER) (test code = 2801) [id number] 07:09:55 Test Item Value Reference Range Interpretation Comments MAGNESIUM (BEAKER) (test code = 2.1 mg/dL 1.6-2.6 627) Reconciliation Specialist ID - [id number] 07:09:55 Test Item Value Reference Range Interpretation Comments PHOSPHORUS (BEAKER) (test code = 2.9 mg/dL 2.3-4.7 604) Reconciliation Specialist ID - ADMINBASIC METABOLIC [id number] 07:09:54 Test Item Value Reference Range Interpretation [...] eGF R is based on the CKD-EPI 1 equation that d oes not use a race coefficientEsti mated GFR is not as accur ate as Creatinine Jaleesa fernie in predicting glom erular filtration rate . Estimated GFR is not appl icable for dialysis patien ts Reconciliation Specialist ID - ADMINCBC W/PLT COUNT & AUTO [id number] 06:13:59 Test Item Value Reference Range Interpretation [...] PERCENT (BEAKER) (test code = 2801) Sputum [id number] 18:41:53 Test Item Value Reference Range Interpretation Comments SPUTUM CULTURE 1+ Respiratory layla: (test code = 622-1) Commensal upper respiratory microorganisms only. Gram stain (test Few Epithelial cells code = 664-3) LEXA (test code = Bacterial pathogens LEXA) associated with lower respiratory infections were not identified, which include Pseudomonas aeruginosa and Staphylococcus aureus (MRSA or MSSA). [facility] METABOLIC PANEL (NA, K, CL, CO2, GLUCOSE, BUN, CREATININE, CA)2022-11-24 11:01:59 Test Item Value Reference Range Interpretation Comments NA (test code = 138 mmol/L 135-145 3953210002) K (test code = 3.9 mmol/L 3.5-5.0 4493604770) CL (test code = 104 mmol/L 98-108 9817985629) CO2 TOTAL (test code = 25 mmol/L 23-31 2095921842) AGAP (test code = 9 2-16 9674398048) BUN (test code = 14 mg/dL 7-23 8667833488) GLUCOSE (test code = 99 mg/dL 70-110 3953064194) CREATININE (test code = 0.76 mg/dL 0.50-1.04 2266643014) CALCIUM (test code = 8.2 mg/dL 8.6-10.6 L 1219583789) eGFR (test code = 83.5 mL/min/1.73m2 0010918748) LEXA (test code = LEXA) Association of [...] tests). Lab Interpretation Abnormal (test code = 06715-0) [facility]2023-04-16 11:01:59 Test Item Value Reference Range Interpretation Comments MAGNESIUM (test code = 3728572056) 2.3 mg/dL 1.7-2.4 Lab Interpretation (test code = Normal 68213-3) [facility] WITH [id number] 10:19:55 Test Item Value Reference Range Interpretation Comments WBC (test code = 11.06 See_Comment [Automated 3207-2) message] The sy stem which generated this result transmitted reference range : 4.30 - 11.10 10*3/?L. The reference range was not used to interpret this result as normal/abnormal . RBC (test code = 4.10 See_Comment [Automated 890-8) message] The sy stem which generated this [...] RDW-SD (test code = 49.1 fL 39.0-49.9 58628-6) RDW-CV (test code = 14.6 % 12.0-15.5 788-0) PLT (test code = 329 See_Comment [Automated 777-3) message] The sy stem which generated this result transmitted reference range : 166 - 358 10*3/ ?L. The reference r geoffrey was not used to interpret this result as normal/abnormal . MPV (test code = 11.1 fL 9.5-12.9 00820-9) NRBC/100 WBC (test 0.0 See_Comment [Automat ed code = 5965641034) message] The system which generated this result transmitted reference range : 0.0 - 10.0 /100 WBCs. The refer ence range was not u sed to interpret th is result as normal/abnormal . NRBC x10^3 (test code See_Comment [Auto mated = 0455736287) message] The s ystem which generated this result transmitted reference range : 10*3/?L. The reference range was not used to interpret this result as normal/abnormal . GRAN MAT (NEUT) % 54.1 % (test code = 770-8) IMM GRAN % (test code 1.40 % = 4823393564) LYMPH % (test code = 33.9 % 736-9) MONO % (test code = 6.0 % 5905-5) EOS % (test code = 4.1 % 713-8) BASO % (test code = 0.5 % 706-2) GRAN MAT x10^3(ANC) 6.00 10*3/uL 1.88-7.09 (test code = 4421885569) IMM GRAN x10^3 (test 0.15 10*3/uL 0.00-0.06 H code = 8389211953) LYMPH x10^3 (test code 3.75 10*3/uL 1.32-3.29 H = 731-0) MONO x10^3 (test code 0.66 10*3/uL 0.33-0.92 = 742-7) EOS x10^3 (test code = 0.45 10*3/uL 0.03-0.39 H 711-2) BASO x10^3 (test code 0.05 10*3/uL 0.01-0.07 = 704-7) Lab Interpretation Abnormal (test code = 92565-8) [facility] AustinGLYCOSYLATED HEMOGLOBIN (A1C)2022-11-23 22:54:25 Test Item Value Reference Range Interpretation Comments HGB A1C (test code = 5.5 % 4.0-5.7 4548-4) LEXA (test code = LEXA) Reference RangesNormal: <5.7%Prediabetes: 5.7 - 6.4%Diabetes: > 6.5% Lab Interpretation (test Normal code = 57135-9) [facility] AustinProcalcitonin2023-04-15 18:56:43 Test Item Value Reference Range Interpretation Comments Procalcitonin (test <=0.07 code = 0272019469) LEXA (test code = LEXA) INTERPRETATION OF [...] lung abscess/empyema. For further information please refer to:[email or web address] Lab Interpretation Normal (test code = 86570-1) [facility] Metabolic Panel (NA, K, CL, CO2, GLUCOSE, BUN, CREATININE, CA)2022-11-23 11:29:09 Test Item Value Reference Range Interpretation Comments NA (test code = 137 mmol/L 135-145 8159091392) K (test code = 3.7 mmol/L 3.5-5.0 9695869592) CL (test code = 105 mmol/L 98-108 1652795858) CO2 TOTAL (test code = 26 mmol/L 23-31 2707229632) AGAP (test code = 6 2-16 9457998674) BUN (test code = 10 mg/dL 7-23 3554466986) GLUCOSE (test code = 127 mg/dL 70-110 H 3376761560) CREATININE (test code = 0.63 mg/dL 0.50-1.04 2515553362) CALCIUM (test code = 8.4 mg/dL 8.6-10.6 L 1124223988) eGFR (test code = 103.6 mL/min/1.73m2 3962779367) LEXA (test code = LEXA) Association of [...] tests). Lab Interpretation Abnormal (test code = 02085-9) [facility] with [id number] 10:23:44 Test Item Value Reference Range Interpretation Comments WBC (test code = 22.61 See_Comment H [Automated 7123-2) message] The system which generated this result transmit abdias reference range : 4.30 - 11.10 10*3/?L. The reference range was not used to interpret this result as normal/abnormal . RBC (test code = 3.97 See_Comment [Automated 126-0) message] The system which generated this result [...] RDW-SD (test code = 49.1 fL 39.0-49.9 06221-6) RDW-CV (test code = 14.7 % 12.0-15.5 788-0) PLT (test code = 327 See_Comment [Automated 777-3) message] The system which generated this result transmit abdias reference range : 166 - 358 10*3/ ?L. The reference range was not u sed to interpret th is result as normal/abnormal . MPV (test code = 10.8 fL 9.5-12.9 19866-8) NRBC/100 WBC (test 0.0 See_Comment [Automat ed code = 3301106806) message] The system which generated this result transmit abdias reference range : 0.0 - 10.0 /100 WBCs. The reference range was not used to interpret this result as normal/abnormal . NRBC x10^3 (test code See_Comment [Auto mated = 6364097728) message] The system which generated this result transmit abdias reference range : 10*3/?L. The reference range was not used to interpret this result as normal/abnormal . GRAN MAT (NEUT) % 75.9 % (test code = 770-8) IMM GRAN % (test code 1.50 % = 9493507028) LYMPH % (test code = 15.5 % 736-9) MONO % (test code = 6.2 % 5905-5) EOS % (test code = 0.6 % 713-8) BASO % (test code = 0.3 % 706-2) GRAN MAT x10^3(ANC) 17.17 10*3/uL 1.88-7.09 H (test code = 9187560053) IMM GRAN x10^3 (test 0.34 10*3/uL 0.00-0.06 H code = 7823319813) LYMPH x10^3 (test code 3.50 10*3/uL 1.32-3.29 H = 731-0) MONO x10^3 (test code 1.40 10*3/uL 0.33-0.92 H = 742-7) EOS x10^3 (test code = 0.13 10*3/uL 0.03-0.39 711-2) BASO x10^3 (test code 0.07 10*3/uL 0.01-0.07 = 704-7) Lab Interpretation Abnormal (test code = 84997-0) [facility] URINALYSIS W SPECIFIC [id number] 17:10:00 Test Item Value Reference Range Interpretation Comments POCT U SP GRAV (test code = 1.010 mg/dl 1.005-1.025 3255) POCT PH U (test code = 3254) 7 mg/dl 5-8 POCT U LEUK EST (test code = trace Negative - Negative 3) POCT U NIT (test code = 3262) negative Negative - Negative POCT U PROT (test code = ++/100 Negative - Negative 3259) POCT U GLU (test code = 3256) normal Negative - Negative POCT U KETONE (test code = negative Negative - Negative 8) POCT U UROBILI (test code = normal 0.2-1 0) POCT U BILI (test code = negative Negative - Negative 1) POCT U BLD (test code = 3257) about 250 Negative - Negative POCT U COLOR (test code = light red 6) POCT U APPEAR (test code = cloudy 7) [facility] URINALYSIS W SPECIFIC [id number] 17:10:00 Test Item Value Reference Range Interpretation [...] U APPEAR (test code = cloudy 3267) [facility] [id number] 01:21:00 Test Item Value Reference Range Interpretation Comments POCT PREG (test code = 1605) negative On board controls acceptable with present C Line (test code = 3574) POCT PREG LOT # (test code = 3575) [id number] POCT PREG TEST DATE (test 11/09/2023 code = 3576) Lab Interpretation (test code = Normal 12032-5) [facility]OV[facility]) 2022-07-17 06:56:10 Test Item Value Reference Range Interpretation Comments SARS-COV2/RT-PCR Negative Negative The SARS-Co V-2 target (test code = nucleic acids a re not 0215223) detected in thi s specimen. Negative result s do not preclude SARS-C oV-2 infection and s hould not be used as the eileen e basis for patient managem ent decisions. Nega tive results must be combine d with clinical observ ations, patient history , and epidemiological information. A false negativ e result may occur if a spec imen is improperly paul ected, transported or handled. This SARS CoV-2 [...] revoked sooner. Fact Sheet for Healthcare Providers: https://www.[employer] m/Documents/Xpert%20Xpress%20SARS%20CoV-2/Fact%20Sheets/302-3802%00ZRNY-ODK-4%20 HEALTHCARE%20PROVIDERS%20FACT%20SHEET.pdf Fact Sheet for Healthcare Patients: https://www.[employer]/Documents/Xpert%20Xp ress%20SARS%20CoV-2/Fact%20Sheets/302-3801%58MJIB-SDM-7%20PATIENT%20FACT%20SHEET .pdfURINALYSIS W/ REFLEX URINE [id number] 17:10:08 Test Item Value Reference Range Interpretation [...] = 516) SOURCE(BEAKER) (test code = 2795) Reconciliation Specialist ID - [auto]Reconciliation Specialist ID - uaexQBOVZYNWZY9514-23-80 07:28:59 Test Item Value Reference Range Interpretation Comments PHOSPHORUS (BEAKER) (test code = 3.7 mg/dL 2.3-4.7 604) Reconciliation Specialist ID - EMMANUELBASIC METABOLIC [id number] 07:28:58 Test Item Value Reference Range Interpretation [...] not appl icable for dialysis patien ts Reconciliation Specialist ID - IACAOPMODYZVEULZK0312-56-32 07:28:58 Test Item Value Reference Range Interpretation Comments MAGNESIUM (BEAKER) (test code = 2.0 mg/dL 1.6-2.6 627) Reconciliation Specialist ID - EMMANUELCOMPREHENSIVE METABOLIC [id number] 05:58:41 Test Item Value Reference Range Interpretation [...] not appl icable for dialysis patien ts Reconciliation Specialist ID - MYRA [facility] (HEMOGRAM ONLY)2022-07-12 05:22:05 Test Item Value Reference [...] WBC 0-0 (BEAKER) (test code = 413) [id number] 05:08:17 Test Item Value Reference Range Interpretation Comments PHOSPHORUS (BEAKER) 3.9 mg/dL 2.3-4.7 Specimen slightly (test code = 604) hemolyzed Reconciliation Specialist DIANNA - MYRA MCOMPREHENSIVE METABOLIC [id number] 05:08:17 Test Item Value Reference Range Interpretation [...] not appl icable for dialysis patien ts Reconciliation Specialist ID - MYRA MSARS-COV2/RT-PCR ([facility])2022-07-10 04:31:52 Test Item Value Reference Range Interpretation Comments SARS-COV2/RT-PCR Negative Negative The SARS-Co V-2 target (test code = nucleic acids a re not 8766210) detected in thi s specimen. Negative result s do not preclude SARS-C oV-2 infection and s hould not be used as the eileen e basis for patient managem ent decisions. Nega tive results must be combine d with clinical observ ations, patient history , and epidemiological information. A false negativ e result may occur if a spec imen is improperly paul ected, transported or handled. This SARS CoV-2 [...] revoked sooner. Fact Sheet for Healthcare Providers: https://www.[employer] m/Documents/Xpert%20Xpress%20SARS%20CoV-2/Fact%20Sheets/302-3802%82HBRY-TDP-7%20 HEALTHCARE%20PROVIDERS%20FACT%20SHEET.pdf Fact Sheet for Healthcare Patients: https://www.[employer]/Documents/Xpert%20Xp ress%20SARS%20CoV-2/Fact%20Sheets/302-3801%26XIFA-ZRE-5%20PATIENT%20FACT%20SHEET .pdfHCG, QUANTITATIVE, [id number] 23:38:56 Test Item Value Reference Range Interpretation Comments GONADOTROPIN, CHORIONIC (HCG) QUANT < mIU/mL 0-10 (BEAKER) (test code = 649) Non- Females: <10 mIU/mL Females: Gestation Age Reference Range(mIU/mL) 0.2-1 Week 5-50 1-2 Weeks 50-500 2-3 Weeks 100-5,000 3-4 Weeks 500-10,000 4-5 Weeks 1,000-50,000 5-6 Weeks 10,000-100,000 6-8 Weeks 15,000- 200,000 2-3 Months 10,000-100,000 Reconciliation Specialist ID - ADMINHIGH SENSITIVITY TROPONIN I 2022-07-09 21:03:26 Test Item Value Reference Range Interpretation Comments HIGH SENSITIVITY < pg/ml See_Comment [Automated message] TROPONIN I (test code = The system which 4151480) generated this result transmitted ref erence range: <=17. Th e reference range was not used to interpr et this result as normal/abnormal . Reconciliation Specialist ID - BSThe [employer] TUTOR STAT High Sensitivity Troponin-I results should be used in conjunctionwith other diagnostic information such as ECG, clinical observations and information, and patient symptoms to aid in the diagnosis of DE.COMPREHENSIVE METABOLIC [id number] 20:59:08 Test Item Value Reference Range Interpretation [...] not appl icable for dialysis patien ts Reconciliation Specialist ID - [id number] 20:59:08 Test Item Value Reference Range Interpretation Comments LIPASE (BEAKER) (test code = 749) 12 U/L 8-78 Reconciliation Specialist ID - BSURINALYSIS W/ REFLEX URINE [id number] 20:50:16 Test Item Value Reference Range Interpretation [...] = 516) SOURCE(BEAKER) (test code = 2795) Reconciliation Specialist ID - techCBC W/PLT COUNT & AUTO [id number] 20:45:23 Test Item Value Reference Range Interpretation [...] (test code = 2801) - NM GASTRIC [id number] 12:21:00 [facility] 1980 Sex: F Patient Name: RHEA SPARKS Unit No: [id number] EXAMS: CPT CODE: [id number] NM GASTRIC EMPTYING 91258 EXAM: - NM GASTRIC EMPTYING HISTORY: ALTERED [...] Technologist: Shivani Kirkpatrick RT(N) Transcrpt Date/Tm/Trnsp: 06/25/2022 (5531) t.SDR.CB5 Orig Print D/T: S: 06/25/2022 (2574) [facility] NAME: RHEA SPARKS [address] [address] PHYS: Abelardo Lujan [place] [address]JUD: 1980 AGE: 41 SEX: F LOC: Z.ZNUC PHONE #: [phone] EXAM DATE: 06/25/2022 STATUS: REG CLI FAX #: [phone] RADIOLOGY NO: PAGE 1 Signed ReportUrine [id number] 21:47:00 Test Item Value Reference Range Interpretation Comments Urine culture (test SEE COMMENT Bacteriu woody screen code = 3772051) negative. [facility] [id number] 21:47:00 Test Item Value Reference Range Interpretation Comments Urine culture (test SEE COMMENT Bacteriu woody screen code = 3969237) negative. [facility] [id number] 21:47:00 Test Item Value Reference Range Interpretation Comments Urine culture (test SEE COMMENT Bacteriu woody screen code = 0411662) negative. [facility]WW*2022-06-11 17:43:00 Test Item [...] /HPF NONE KIDNEY IMAGING, SINGLE, FLOW/FUNCTION W/ [id number] 14:59:00Reason for Exam:->r10.9[facility] : 1980 Sex: FFINAL REPORT PROCEDURE: Functional RENAL SCAN with Diuretic Stimulation CPT CODE: 85862 INDICATION: R10.9 PROTOCOL: 10 mCi of Tc-99m MAG3 was injected intravenously. Renal flow images were obtained in the posterior projection, subsequent serial posterior images were obtained over 42 minutes. 40 mg of furosemide was injected intravenously, 19 minutes after tracer injection. FINDINGS: There is prompt perfusion of the kidneys. Initial renal activity is divided 56% to the left kidney and 44% to the right kidney. Subsequent images show prompt tracer appearance in the calyces and renal pelves. Following diuretic injection, there is prompt tracer washout from the renal collecting systems. Half-emptying times were 8 minutes past peak activity on the left and 12 minutes on the right. IMPRESSION:1. Mildly decreased right renal function.2. Normal response to diuretic stimulation. Thereis no evidence of urinary obstruction. Signed: Harley Garcia MDReport Verified Date/Time: 06/07/2022 14:59:41 UA/M W/RFLX CULTURE, [id number] 13:09:00 Test Item Value Reference Range Interpretation Comments Specific [place], UA >=1.030 1.005-1.03 A (test code = 2965-2) pH, UA (test code = 5.5 5.0-7.5 5803-2) Color, UA (test code Yellow Yellow = 9796-4) Appearance (test code Turbid Clear A = 6070799) WBC Esterase (test Negative Negative code = 6543536) Protein, UA (test Trace Negative/T code = 41312-5) Glucose, Urine (test Negative Negative code = 23806-5) Ketones, UA (test Negative Negative code = 2514-8) Blood, UA (test code Trace Negative A = 98973-5) Bilirubin, UA (test Negative Negative code = 5770-3) Urobilinogen,Semi-Qn 0.2 mg/dL 0.2-1.0 (test code = 5963644) Nitrite, UA (test Negative Negative code = 04133-1) Microscopic See below: Microscopic was Examination (test indicated and was code = 6708455) performed. Urinalysis Reflex Comment This speci men has (test code = 5397506) reflex ed to a Urine Culture. LEXA (test code = LEXA) Specimen Comment: A courtesy copy of this report has been sent to [phone] rmed at: [facility] [place] [address] [id number] Director: Shaq Hamilton MD, Phone: [phone] Lab Interpretation Abnormal (test code = 77135-7) [facility] [id number] 13:09:00 Test Item Value Reference Interpretation Comments Range Urine Culture, Final report A Routine (test code = 1007818) Result 1 (test code Escherichia coli A Mult i-Drug Resistant = 1439464) OrganismGreater than 100,000 colony forming units p er mL Result 2 (test code Enterococcus A For Ente rococcus = ) faecalis species, aminoglycosides (except for high-levelresis tance screening), cephalosporins, clindamycin, andtrimethoprim -sulf amethoxazole ar e not effective clinically.(CLS I, Q612-T07, 2016)Greater th an 100,000 colony forming units [...] of this report has been sent to [phone] rmed at: [address] [place], [place] [address]CoFormerly [facility] CenterScfsrgd[address] [place] [address] [id number] Director: Shaq Hamilton MD, Phone: [phone] Lab Interpretation Abnormal (test code = 37933-4) [facility] [id number] 13:09:00 Test Item Value Reference Range Interpretation [...] of this report has been sent to [phone] rmed at: [facility] [id number] Director: Shaq Hamilton MD, Phone: [id number] Lab Interpretation Abnormal (test code = 43742-8) [facility]/RFLX CULTURE, [id number] 13:09:00 Test Item Value Reference Range Interpretation Comments Specific [place], UA >=1.030 1.005-1.03 A (test code = 2965-2) pH, UA (test code = 5.5 5.0-7.5 5803-2) Color, UA (test code Yellow Yellow = 9796-4) Appearance (test code Turbid Clear A = 5184885) WBC Esterase (test Negative Negative code = 0024547) Protein, UA (test Trace Negative/T code = 80829-6) Glucose, Urine (test Negative Negative code = 04921-7) Ketones, UA (test Negative Negative code = 1124-8) Blood, UA (test code Trace Negative A = 17873-6) Bilirubin, UA (test Negative Negative code = 5770-3) Urobilinogen,Semi-Qn 0.2 mg/dL 0.2-1.0 (test code = 5143395) Nitrite, UA (test Negative Negative code = 86042-7) Microscopic See below: Microscopic was Examination (test indicated and was code = 9865851) performed. Urinalysis Reflex Comment This speci men has (test code = 8772960) reflex ed to a Urine Culture. LEXA (test code = LEXA) Specimen Comment: A courtesy copy of this report has been sent to [phone] rmed at: [facility] [place], [place] [id number] Director: Shaq Hamilton MD, Phone: [phone] Lab Interpretation Abnormal (test code = 87530-7) [facility], [id number] 13:09:00 Test Item Value Reference Interpretation Comments Range Urine Culture, Final report A Routine (test code = 0616121) Result 1 (test code Escherichia coli A Mult i-Drug Resistant = 2939619) OrganismGreater than 100,000 colony forming units p er mL Result 2 (test code Enterococcus A For Ente rococcus = 4691004) faecalis species, aminoglycosides (except for high-levelresis tance screening), cephalosporins, clindamycin, andtrimethoprim -sulf amethoxazole ar e not effective clinically.(CLS I, F391-W84, 2016)Greater th an 100,000 colony forming units [...] of this report has been sent to [phone] rmed at: [facility]Co [address] [place], [place] [id number] Director: Shaq Hamilton MD, Phone: [phone] Lab Interpretation Abnormal (test code = 18589-8) [facility]CR[facility]IC [id number] 13:09:00 Test Item Value Reference Range Interpretation [...] of this report has been sent to [phone] rmed at: - LabCo[address] [id number] Director: Shaq Hamilton MD, Phone: [phone] Lab Interpretation Abnormal (test code = 76883-5) [facility], RENAL, [id number] 15:58:00 [facility] 1980 Sex: FFINAL REPORT Patient: Rhea SparksDOB: 1980MRN: [id number] Accession number: [id number] TECHNIQUE: Grayscale ultrasound of the kidneys and [...] Ruelas MDReport Verified Date/Time: 06/03/2022 15:58:58 Urine [id number] 09:22:24 Test Item Value Reference Range Interpretation Comments Result (test code = <10,000 col/mL skin 6463-4) [facility] [id number] 09:22:24 Test Item Value Reference Range Interpretation Comments Result (test code = <10,000 col/mL skin 6463-4) [facility] RENAL, [id number] 23:46:00Reason for exam:->URINARY RETENTION, left flank pain, dysuria, passing stones, rescent stent removal. last us with mild hydro Pt recently reports being discharged on of this month and passing a kidney stone on . Pt states since then she has been having to strain to urinate and is havingdiffiulty urinating at all now.[facility] : 1980 Sex: FFINAL REPORT U/S, RENAL, COMPLETE CLINICAL STATEMENT: Urinary retention, left flank pain. COMPARISON: None FINDINGS: Liver is moderately diffusely echogenic consistent with fatty infiltration. No focal hepatic lesions. Right kidney measures 11.2 x 4.3 x 5.6 cm. Left kidney fztuqygc29.1 x 4.8 x 5.8 cm. No hydronephrosis. Bladder is mildly distended and there are bilateral ureteraljets noted. Small right renal calculus suspected measuring 6 mm. Small left renal calculus measuring6 mm. No abdominal or pelvic ascites. IMPRESSION: Bilateral nephrolithiasis. No evidence for acute urinary obstruction. Signed: Cipriano Odonnelleport Verified Date/Time: 06/01/2022 23:46:11 Rapid drug screen, [id number] 20:42:19 Test Item Value Reference Range Interpretation Comments Barbiturate Screen Negative Negative (test code = 26486-8) Benzodiazepine Screen Negative Negative (test code = 60205-2) Cocaine (Metab.) Negative Negative Screen (test code = 3397-7) Methadone Screen (test Negative Negative code = 84157-0) Opiate Screen (test Positive Negative A code = 22894-9) Cannabinoid Screen Positive Negative A (test code = 33160-8) Amph/Methamph Screen Negative Negative (test code = 69549-9) Phencyclidine Screen Negative Negative (test code = 27431-8) pH, UA (test code = 6.0 5.0-8.0 5803-2) LEXA (test code = LEXA) DRUG CUTOFF CONC.Cocaine 300 ng/mL Cannabinoid 50 ng/mLBenzodiazepine 200 ng/mLBarbiturate 200 ng/mLPhencyclidine 25 ng/mLOpiate 300 ng/mLMethadone 300 ng/mLAmphetamine/ 1000 ng/mL Methamphetamine This assay provides an unconfirmed qualitative test result for the clinical management of patients in emergency situations. Chain of custody not maintained. Some klnm-paa-huxncgm medications, as well as adulterants, may cause inaccurate results. Clinical correlation should be applied. A more comprehensive drug screen or confirmation of a detected drug may be performed upon request.Reconciliation Specialist ID - DSENSONOperator ID - DSENSONOperator ID - DSENSONOperator ID - DSENSONOperator ID - DSENSONOperator ID - DSENSONOperator ID - DSENSONOperator ID - DSENSON Lab Interpretation Abnormal (test code = 72576-3) [facility], [id number] 20:42:19 Test Item Value Reference Range Interpretation Comments Barbiturate Screen Negative Negative (test code = 01669-6) Benzodiazepine Screen Negative Negative (test code = 94178-3) Cocaine (Metab.) Negative Negative Screen (test code = 3397-7) Methadone Screen (test Negative Negative code = 60987-9) Opiate Screen (test Positive Negative A code = 99541-0) Cannabinoid Screen Positive Negative A (test code = 28988-3) Amph/Methamph Screen Negative Negative (test code = 96150-4) Phencyclidine Screen Negative Negative (test code = 24662-9) pH, UA (test code = 6.0 5.0-8.0 5803-2) LEXA (test code = LEXA) DRUG CUTOFF CONC.Cocaine 300 ng/mL Cannabinoid 50 ng/mLBenzodiazepine 200 ng/mLBarbiturate 200 ng/mLPhencyclidine 25 ng/mLOpiate 300 ng/mLMethadone 300 ng/mLAmphetamine/ 1000 ng/mL Methamphetamine This assay provides an unconfirmed qualitative test result for the clinical management of patients in emergency situations. Chain of custody not maintained. Some geac-zsp-jicwjfn medications, as well as adulterants, may cause inaccurate results. Clinical correlation should be applied. A more comprehensive drug screen or confirmation of a detected drug may be performed upon request.Reconciliation Specialist ID - DSENSONOperator ID - DSENSONOperator ID - DSENSONOperator ID - DSENSONOperator ID - DSENSONOperator ID - DSENSONOperator ID - DSENSONOperator ID - DSENSON Lab Interpretation Abnormal (test code = 47025-4) [facility] SCREEN, [id number] 20:42:19 Test Item Value Reference Range Interpretation [...] situations. Chain of custody not maintained. Some qbtz-yay-tdkdagr medications, as well as adulterants, may cause inaccurate results. Clinical correlation should be applied. A more comprehensive drug screen or confirmation of a detected drug may be performed upon request.Reconciliation Specialist ID - DSENSONOperator ID - DSENSONOperator ID - DSENSONOperator ID - DSENSONOperator ID - DSENSONOperator ID - DSENSONOperator ID - DSENSONOperator ID - DSENSONPregnancy screen, urine 2022-06-01 20:26:19 Test Item Value Reference Range Interpretation Comments Preg Test, Ur (test code = 2-1) Negative Negative Lab Interpretation (test code = Normal 48788-2) [facility] HospitalPregnancy screen, [id number] 20:26:19 Test Item Value Reference Range Interpretation Comments Preg Test, Ur (test code = 2112-1) Negative Negative Lab Interpretation (test code = Normal 68551-9) [facility] HospitalPREGNANCY SCREEN, [id number] 20:26:19 Test Item Value Reference Range Interpretation Comments TEST URINE (BEAKER) (test Negative Negative code = 583) BASIC METABOLIC [id number] 20:01:54 Test Item Value Reference Range Interpretation [...] not appl icable for dialysis patien ts Reconciliation Specialist ID - DSENSONOperator ID - DSENSONOperator ID - DSENSONOperator ID - DSENSONOperator ID - DSENSONOperator ID - DSENSONOperator ID - DSENSONOperator ID - DSENSONOperator ID - DSENSONOperator ID - DSENSONOperator ID - DSENSONOperator ID - DSENSONUrinalysis w/[id number] 19:13:55 Test Item Value Reference Range Interpretation Comments Color, UA (test code = Yellow 5778-6) Clarity, UA (test code = Clear 5767-9) Specific [place], UA 1.025 1.001-1.035 (test code = 5811-5) pH, UA (test code = 6.0 5.0-8.0 5803-2) Protein, UA (test code = Negative Negative 15612-2) Glucose, UA (test code = Negative Negative 365) Ketones, UA (test code = Trace Negative A 2514-8) Bilirubin, UA (test code Negative Negative = 54727-6) Blood, UA (test code = Small Negative A 87713-3) Nitrite, UA (test code = Negative Negative 5802-4) Leukocytes, UA (test Negative Negative code = 5799-2) Urobilinogen, UA (test 0.2 code = 08395-8) Bacteria, UA (test code Moderate = 80342-2) RBC, UA (test code = <5 See_Comment [Autom ated message] 799-7) The system iRates generated this result transmitted ref erence range: /HPF. Th e reference range was not used to int erpret this result as normal/abnormal . WBC, UA (test code = <5 See_Comment [Autom ated message] 61395-7) The system iRates generated this result transmitted ref erence range: /HPF. Th e reference range was not used to int erpret this result as normal/abnormal . SQUAMOUS EPITHELIAL 10-20 See_Comment [Automa abdias message] (test code = 16695-2) The sy stem which generated this result transmitted ref erence range: /HPF. Th e reference range was not used to int erpret this result as normal/abnormal . Specimen Source (test code = 2795) Lab Interpretation (test Abnormal code = 09162-3) [facility] HospitalUrinalysis w/Meowkroxnzu9943-06-32 19:13:55 Test Item Value Reference Range Interpretation Comments Color, UA (test code = Yellow 5778-6) Clarity, UA (test code = Clear 5767-9) Specific [place], UA 1.025 1.001-1.035 (test code = 5811-5) pH, UA (test code = 6.0 5.0-8.0 5803-2) Protein, UA (test code = Negative Negative 40903-7) Glucose, UA (test code = Negative Negative 365) Ketones, UA (test code = Trace Negative A 2514-8) Bilirubin, UA (test code Negative Negative = 63970-4) Blood, UA (test code = Small Negative A 32640-3) Nitrite, UA (test code = Negative Negative 5802-4) Leukocytes, UA (test Negative Negative code = 5799-2) Urobilinogen, UA (test 0.2 code = 27610-9) Bacteria, UA (test code Moderate = 61991-8) RBC, UA (test code = <5 See_Comment [Autom ated message] 799-7) The system iRates generated this result transmitted ref erence range: /HPF. Th e reference range was not used to int erpret this result as normal/abnormal . WBC, UA (test code = <5 See_Comment [Autom ated message] 95042-5) The system iRates generated this result transmitted ref erence range: /HPF. Th e reference range was not used to int erpret this result as normal/abnormal . SQUAMOUS EPITHELIAL 10-20 See_Comment [Automa abdias message] (test code = 21480-7) The sy stem which generated this result transmitted ref erence range: /HPF. Th e reference range was not used to int erpret this result as normal/abnormal . Specimen Source (test code = 2795) Lab Interpretation (test Abnormal code = 96060-6) [facility] W/ [id number] 19:13:55 Test Item Value Reference Range Interpretation [...] 1663) SOURCE(BEAKER) (test code = 2795) POCT [id number] 11:59:00 Test Item Value Reference Range Interpretation Comments POCT PREG (test code = 1605) negative On board controls acceptable with present C Line (test code = 3574) POCT PREG LOT # (test code = 3575) [id number] POCT PREG TEST DATE (test 2023-10-09 code = 3576) Lab Interpretation (test code = Normal 77532-9) [facility]. METABOLIC PANEL (67153)2022-05-22 13:41:17 Test Item Value Reference Range Interpretation Comments NA (test code = 138 mmol/L 135-145 7497045259) K (test code = 4.7 mmol/L 3.5-5 4586358822) CL (test code = 105 mmol/L 98-108 2818815114) CO2 TOTAL (test code = 20 mmol/L 23-31 L 2555381168) AGAP (test code = 2-16 4525011053) BUN (test code = 9 mg/dL 7-23 3655595358) GLUCOSE (test code = 141 mg/dL 70-110 H 6682951976) CREATININE (test code = 0.80 mg/dL 0.5-1.04 8037476961) TOTAL BILI (test code = 0.4 mg/dL 0.1-1.9 9180099262) CALCIUM (test code = 9.4 mg/dL 8.6-10.6 6854124746) T PROTEIN (test code = 8.0 g/dL 6.3-8.2 2203383793) ALBUMIN (test code = 4.8 g/dL 3.5-5 9568144471) ALK PHOS (test code = 59 U/L 34-122 0105677056) ALTv (test code = 36 U/L 5-35 H 1742-6) AST(SGOT) (test code = 27 U/L 13-40 0224809749) eGFR (test code = mL/min/1.73m2 5871431598) LEXA (test code = LEXA) Association of [...] tests). Lab Interpretation Abnormal (test code = 92891-6) [facility] 13:41:17 Test Item Value Reference Range Interpretation Comments LIPASE (test code = 1367042870) 107 U/L 0-220 Lab Interpretation (test code = Normal 64424-3) [facility] AustinCB WITH [id number] 13:29:34 Test Item Value Reference Range Interpretation Comments WBC (test code = See_Comment [Automated message] 6690-2) The system iRates generated this result transmitted ref erence range: 4.30 - 1 1.10 10*3/?L. The re ference range was not u sed to interpret this result as normal/abnor mal. RBC (test code = See_Comment [Automated message] 789-8) The system iRates generated this result transmitted ref erence range: [...] RDW-SD (test code 45.9 fL 39-49.9 = 03197-4) RDW-CV (test code 13.6 % 12-15.5 = 788-0) PLT (test code = See_Comment [Automated message] 777-3) The system Vertasc[employer] h generated this result transmitted ref erence range: 166 - 35 8 10*3/?L. The re ference range was not u sed to interpret this result as normal/abnor mal. MPV (test code = 11.6 fL 9.5-12.9 51564-5) NRBC/100 WBC (test See_Comment [Automat ed message] code = 2512592737) The syste m which generated this result transmitted ref erence range: 0.0 - 10 .0 /100 WBCs. The refer ence range was not u sed to interpret this result as normal/abnor mal. NRBC x10^3 (test See_Comment [Automated message] code = 6245095469) The syste m which generated this result transmitted ref erence range: 10*3/?L. The reference range was not used to interpr et this result as normal/abnormal . GRAN MAT (NEUT) % 60.8 % (test code = 770-8) IMM GRAN % (test 0.40 % code = 3116122520) LYMPH % (test code 27.7 % = 736-9) MONO % (test code 7.9 % = 5905-5) EOS % (test code = 2.6 % 713-8) BASO % (test code 0.6 % = 706-2) GRAN MAT 4.16 10*3/uL 1.88-7.09 x10^3(ANC) (test code = 5675721486) IMM GRAN x10^3 0.03 10*3/uL 0-0.06 (test code = 5517936816) LYMPH x10^3 (test 1.90 10*3/uL 1.32-3.29 code = 731-0) MONO x10^3 (test 0.54 10*3/uL 0.33-0.92 code = 742-7) EOS x10^3 (test 0.18 10*3/uL 0.03-0.39 code = 711-2) BASO x10^3 (test 0.04 10*3/uL 0.01-0.07 code = 704-7) [facility] AustinPOCT [id number] 13:25:00 Test Item Value Reference Range Interpretation Comments POCT PREG (test code = 1605) negative On board controls acceptable with present C Line (test code = 3574) POCT PREG LOT # (test code = 3575) [id number] POCT PREG TEST DATE (test 10/09/2023 code = 3576) Lab Interpretation (test code = Normal 79015-5) [facility] AustinU[facility], RENAL, [id number] 17:07:00 [facility] : 1980 Sex: FFINAL REPORT Name: Rhea FuentesdMRN: [id number]: [id number] and Time:05/20/2022 at 4:40 PM EXAM: RENAL [...] left-sided hydronephrosis.2.Normal right kidney. Signed: Anusha Connor MDReport Verified Date/Time: 05/20/2022 17:07:34 Reading Location: [facility] Radiology Reading Room URINE [id number] 09:58:33 Test Item Value Reference Range Interpretation Comments CULTURE (BEAKER) (test 10-19,000 col/mL skin code = 1095) layla URINE [id number] 10:57:29 Test Item Value Reference Range Interpretation Comments CULTURE (BEAKER) (test code = 1095) No growth [id number] 04:02:14 Test Item Value Reference Range Interpretation Comments MAGNESIUM (BEAKER) (test code = 1.8 mg/dL 1.5-3.0 627) Reconciliation Specialist ID - [id number] ID - [id number] ID - XAPLWZUQG511Mtzrnfiz ID - [id number] METABOLIC [id number] 04:00:38 Test Item Value Reference Range Interpretation [...] not appl icable for dialysis patien ts Reconciliation Specialist ID - [id number] ID - [id number] ID - PUHDCNLMM157Skwotgpa ID - TGHEKTBKW045Qpzehtbh ID - GIPNBDDCE169Jxozfeoj ID - ZDBLXONKG927Lxphbovm ID - NUAXTHPCO520Zubxgccq ID - ZTDUXCEHQ789Emrducgb ID - WTRCXHYRS907CZOFVGJSHV8668-46-06 03:59:15 Test Item Value Reference Range Interpretation Comments PHOSPHORUS (BEAKER) (test code = 3.6 mg/dL 2.5-4.5 604) Reconciliation Specialist ID - [id number] W/PLT COUNT & AUTO [id number] 03:44:00 Test Item Value Reference Range Interpretation [...] (BEAKER) (test code = 2801) URINALYSIS W/ [id number] 05:45:45 Test Item Value Reference Range Interpretation [...] = 1663) SOURCE(BEAKER) (test code = 2795) [id number] 05:26:52 Test Item Value Reference Range Interpretation Comments MAGNESIUM (BEAKER) (test code = 2.2 mg/dL 1.5-3.0 627) Reconciliation Specialist ID - LITOOperator ID - LITOOperator ID - LITOOperator ID - LITOBASIC METABOLIC [id number] 05:25:14 Test Item Value Reference Range Interpretation [...] not appl icable for dialysis patien ts Reconciliation Specialist ID - LITOOperator ID - LITOOperator ID - LITOOperator ID - LITOOperator ID - LITOOperator ID - LITOOperator ID - LITOOperator ID - LITOOperator ID - [id number] 05:23:50 Test Item Value Reference Range Interpretation Comments PHOSPHORUS (BEAKER) (test code = 4.0 mg/dL 2.5-4.5 604) Reconciliation Specialist ID - LITOCBC W/PLT COUNT & AUTO [id number] 05:03:26 Test Item Value Reference Range Interpretation [...] PERCENT (BEAKER) (test code = 2801) CT, [id number] 20:43:00Unlisted Reason for Exam - Click Yes and Enter Reason Below->NoIs this for enterography?->NoWill this procedure require oral contrast?->No [facility] 1980 Sex: FFINAL [...] placement. No significant hydronephrosis. Signed: Cipriano Odonnell [facility] VerifiedDate/Time: 04/27/2022 20:43:07 U/S, [id number] 15:08:00Reason for exam:->left flank painShould this be performed at the bedside?->Yes [facility] : 1980 Sex: FFINAL [...] MDReport Verified Date/Time: 04/27/2022 15:08:10 Reading Location: [facility] C013X Ortho Consult Reading Room U/S, ABDOMINAL, [id number] 15:04:00Reason for exam:- >left flank painShould this be performed at the bedside?->Yes [facility] : 1980 Sex: FFINAL [...] structures of the abdomen. Signed: Zuleika Echols Verified Date/Time: 04/27/2022 15:04:18 Reading Location: [address] Reading Room RAD, ABDOMEN/KUB 1 VIEW AP 2022-04-27 09:46:00Reason for exam:->left flank painShould this be performed at the bedside?->Yes [facility] : 1980 Sex: FFINAL [...] Irizarry Verified Date/Time: 04/27/2022 09:46:57 Reading Location: [facility] B1 C013X Ortho Consult Reading Room [id number] 06:38:11 Test Item Value Reference Range Interpretation Comments MAGNESIUM (BEAKER) (test code = 2.2 mg/dL 1.5-3.0 627) Reconciliation Specialist ID - [id number] ID - NLJCEJSXK665Svxtagix ID - KDROGKARJ373Xkkpslwc ID - XILTLMZHS873AUMGB METABOLIC [id number] 06:36:45 Test Item Value Reference Range Interpretation [...] not appl icable for dialysis patien ts Reconciliation Specialist ID - [id number] ID - XXPCBSHBI364Ayyzlhsw ID - LESPBQKWS337Gvdqefoc ID - CWTZALYBU419Glbmlwmw ID - PLDDVGWVO833Rmyqgotl ID - UAFVULDTS841Dsbetaro ID - SQRYAKSEP802Cofrncti ID - UPRCWDKSQ494Rvxejsst ID - [id number] 06:35:28 Test Item Value Reference Range Interpretation Comments PHOSPHORUS (BEAKER) (test code = 3.4 mg/dL 2.5-4.5 604) Reconciliation Specialist ID - [id number] W/PLT COUNT & AUTO [id number] 06:10:24 Test Item Value Reference Range Interpretation [...] 0-0 PERCENT (BEAKER) (test code = 2801) [id number] 07:02:11 Test Item Value Reference Range Interpretation Comments MAGNESIUM (BEAKER) (test code = 2.4 mg/dL 1.5-3.0 627) Reconciliation Specialist ID - DSENSONOperator ID - DSENSONOperator ID - DSENSONOperator ID - DSENSONBASIC METABOLIC [id number] 07:00:54 Test Item Value Reference Range Interpretation [...] not appl icable for dialysis patien ts Reconciliation Specialist ID - DSENSONOperator ID - DSENSONOperator ID - DSENSONOperator ID - DSENSONOperator ID - DSENSONOperator ID - DSENSONOperator ID - DSENSONOperator ID - DSENSONOperator ID - [id number] 06:59:32 Test Item Value Reference Range Interpretation Comments PHOSPHORUS (BEAKER) (test code = 3.9 mg/dL 2.5-4.5 604) Reconciliation Specialist ID - DSENSONCBC W/PLT COUNT & AUTO [id number] 06:37:03 Test Item Value Reference Range Interpretation [...] = 2801) Urinalysis w/Microscopic + Reflex to [id number] 14:33:57 Test Item Value Reference Range Interpretation Comments Color, UA (test code [place] = 5778-6) Clarity, UA (test Turbid code = 5767-9) Specific [place], UA >=1.030 1.001-1.035 (test code = 5811-5) pH, UA (test code = 5.5 5.0-8.0 5803-2) Protein, UA (test >=300 mg/dL Negative A code = 54687-3) Glucose, UA (test 250 mg/dL Negative A code = 365) Ketones, UA (test Trace Negative A code = 2514-8) Bilirubin, UA (test Positive Negative A code = 66488-9) Blood, UA (test code Large Negative A = 96119-4) Nitrite, UA (test Positive Negative A code = 5802-4) Leukocytes, UA (test Moderate Negative A code = 5799-2) Urobilinogen, UA >=8.0 0.2-1.0 H (test code = 90923-2) Bacteria, UA (test Occasional code = 45973-0) RBC, UA (test code = 20-50 See_Comment This is a 799-7) corrected resul t. Previous result was 10-20 /HPF on 04/25/2022 at 14 16 CDT [Automated message] The system which generated this result transmitted reference range : /HPF. The reference range was not used to interpret this result as normal/abnormal . WBC, UA (test code = 5-10 See_Comment [Autom ated 05364-7) message] The system which generated this result transmitted reference range : /HPF. The reference range was not used to interpret this result as normal/abnormal . SQUAMOUS EPITHELIAL <5 See_Comment [Automa abdias (test code = 24872-5) messag e] The system which generated this result transmitted reference range : /HPF. The reference range was not used to interpret this result as normal/abnormal . Specimen Source (test code = 2795) LEXA (test code = LEXA) COLOR MAY INTERFERE WITH RESULTS Lab Interpretation Abnormal (test code = 34022-1) [facility] + Reflex to Culture 2022-04-25 14:33:57 Test Item Value Reference Range Interpretation Comments Color, UA (test code [place] = 5778-6) Clarity, UA (test Turbid code = 5767-9) Specific [place], UA >=1.030 1.001-1.035 (test code = 5811-5) pH, UA (test code = 5.5 5.0-8.0 5803-2) Protein, UA (test >=300 mg/dL Negative A code = 92496-1) Glucose, UA (test 250 mg/dL Negative A code = 365) Ketones, UA (test Trace Negative A code = 2514-8) Bilirubin, UA (test Positive Negative A code = 81012-4) Blood, UA (test code Large Negative A = 12171-1) Nitrite, UA (test Positive Negative A code = 5802-4) Leukocytes, UA (test Moderate Negative A code = 5799-2) Urobilinogen, UA >=8.0 0.2-1.0 H (test code = 13246-5) Bacteria, UA (test Occasional code = 64463-2) RBC, UA (test code = 20-50 See_Comment This is a 799-7) corrected resul t. Previous result was 10-20 /HPF on 04/25/2022 at 14 16 CDT [Automated message] The system which generated this result transmitted reference range : /HPF. The reference range was not used to interpret this result as normal/abnormal . WBC, UA (test code = 5-10 See_Comment [Autom ated 90964-8) message] The system which generated this result transmitted reference range : /HPF. The reference range was not used to interpret this result as normal/abnormal . SQUAMOUS EPITHELIAL <5 See_Comment [Swati calero (test code = 91146-3) messag e] The system which generated this result transmitted reference range : /HPF. The reference range was not used to interpret this result as normal/abnormal . Specimen Source (test code = 2795) LEXA (test code = LEXA) COLOR MAY INTERFERE WITH RESULTS Lab Interpretation Abnormal (test code = 50371-0) [facility] [id number] 14:33:57 Test Item Value Reference Range Interpretation Comments COLOR (BEAKER) (test [place] code = 470) CLARITY (BEAKER) (test Turbid [...] code = 2795) COLOR MAY INTERFERE WITH [id number] 05:48:25 Test Item Value Reference Range Interpretation Comments MAGNESIUM (BEAKER) (test code = 1.7 mg/dL 1.5-3.0 627) Reconciliation Specialist ID - [id number] ID - [id number] ID - [id number] ID - [id number] BASIC METABOLIC [id number] 05:46:35 Test Item Value Reference Range Interpretation [...] not appl icable for dialysis patien ts Reconciliation Specialist ID - [id number] ID - [id number] ID - [id number] ID - [id number] ID - [id number] ID - [id number] ID - [id number] ID - [id number] ID - [id number] 05:45:16 Test Item Value Reference Range Interpretation Comments PHOSPHORUS (BEAKER) (test code = 3.2 mg/dL 2.5-4.5 604) Reconciliation Specialist ID - [id number] W/PLT COUNT & AUTO [id number] 05:42:34 Test Item Value Reference Range Interpretation [...] 2801) FL, FLUORO, NON-SPECIFIC, UP TO 1 [id number] 12:47:00Reason for exam:- >CYSTOSCOPY, WITH RETROGRADE PYELOGRAM - Left [facility] : 1980 Sex: FAn imaging unit was utilized for this procedure. No radiologist interpretation was requested. Refer to the EMR for findings. Refer to PACS for any patient radiation dose information. SCREEN, [id number] 10:26:20 Test Item Value Reference Range Interpretation Comments TEST URINE (BEAKER) (test Negative Negative code = 583) PROTHROMBIN TIME/[id number] 10:23:34 Test Item Value Reference Range Interpretation Comments PROTIME (BEAKER) 10.3 seconds 9.3-12.0 Final Infor mation (test code = 759) (Auto Outp ut) INR (BEAKER) (test 0.93 See_Comment Final Inf ormation code = 370) (Auto Output) [Automated mess age] The system iRates generated this result transmitted ref erence range: <=5.90. The reference range was not used to int erpret this result as normal/abnormal . RECOMMENDED COUMADIN/WARFARIN INR THERAPY RANGESSTANDARD DOSE: 2.0 - 3.0 Includes: PROPHYLAXIS for venous thrombosis, systemic embolization; TREATMENT for venous thrombosis and/or pulmonary embolus.HIGH RISK: Target INR is 2.5-3.5 for patients with mechanical heart valves.COVID [id number] 10:21:45 Test Item Value Reference Range Interpretation Comments SARS COVID ANTIGEN Negative Negative (test code = 93526-0) LEXA (test code = LEXA) The QuickVue SARS Antigen test does not differentiate between SARS-CoV and SARS-CoV-2. The test has been authorized by the FDA under an EUA for use by authorized laboratories. Lab Interpretation Normal (test code = 60908-5) [facility] [id number] 10:21:45 Test Item Value Reference Range Interpretation Comments SARS COVID ANTIGEN Negative Negative (test code = 57716-6) LEXA (test code = LEXA) The QuickVue SARS Antigen test does not differentiate between SARS-CoV and SARS-CoV-2. The test has been authorized by the FDA under an EUA for use by authorized laboratories. Lab Interpretation Normal (test code = 70835-4) [facility] [id number] 10:21:45 Test Item Value Reference Range Interpretation Comments SARS COVID ANTIGEN (test code = Negative Negative 66909330) The QuickVue SARS Antigen test does not differentiate between SARS-CoV and SARS-CoV-2.The test has been authorized by the FDA under an EUA for use by authorized laboratories.BASIC METABOLIC PANEL (NA, K, CL, CO2, GLUCOSE, BUN, CREATININE, CA)2022-04-16 16:21:48 Test Item Value Reference Range Interpretation Comments NA (test code = 137 mmol/L 135-145 4320675309) K (test code = 4.3 mmol/L 3.5-5 9359561047) CL (test code = 106 mmol/L 98-108 8061248785) CO2 TOTAL (test code = 20 mmol/L 23-31 L 9024626508) AGAP (test code = 2-16 5355792042) BUN (test code = 9 mg/dL 7-23 5693489139) GLUCOSE (test code = 136 mg/dL 70-110 H 0430433707) CREATININE (test code = 0.77 mg/dL 0.5-1.04 9299307053) CALCIUM (test code = 9.2 mg/dL 8.6-10.6 2678986006) eGFR (test code = mL/min/1.73m2 7651942034) LEXA (test code = LEXA) Association of [...] tests). Lab Interpretation Abnormal (test code = 63963-8) [facility]8551[facility] (ALB,T.PRO,BILI T,BU/BC,ALT,AST,ALK PHOS)2022-04-16 16:21:48 Test Item Value Reference Range Interpretation Comments TOTAL BILI (test code = 5637446492) 0.4 mg/dL 0.1-1.1 BILI UNCON (test code = 1282949899) 0.3 mg/dL 0.1-1.1 BILI CONJ (test code = 6939047574) 0.0 mg/dL 0-0.3 T PROTEIN (test code = 7472488050) 7.6 g/dL 6.3-8.2 ALBUMIN (test code = 7263803639) 4.3 g/dL 3.5-5 ALK PHOS (test code = 2987997761) 62 U/L 34-122 ALTv (test code = 1742-6) 27 U/L 5-35 AST(SGOT) (test code = 0678051565) 28 U/L 13-40 Lab Interpretation (test code = Normal 02785-3) [facility] AustinLIPASE2022-[facility]06 16:21:48 Test Item Value Reference Range Interpretation Comments LIPASE (test code = 4244765285) 37 U/L 0-220 Lab Interpretation (test code = Normal 54573-1) [facility] AustinCB WITH [id number] 16:20:26 Test Item Value Reference Range Interpretation Comments WBC (test code = See_Comment [Automated message] 7590-2) The system iRates generated this result transmitted ref erence range: 4.30 - 1 1.10 10*3/?L. The re ference range was not u sed to interpret this result as normal/abnor mal. RBC (test code = See_Comment [Automated message] 989-8) The system iRates generated this result transmitted ref erence range: [...] RDW-SD (test code 44.1 fL 39-49.9 = 56815-1) RDW-CV (test code 13.5 % 12-15.5 = 788-0) PLT (test code = See_Comment [Automated message] 937-3) The system iRates generated this result transmitted ref erence range: 166 - 35 8 10*3/?L. The re ference range was not u sed to interpret this result as normal/abnor mal. MPV (test code = 11.9 fL 9.5-12.9 99216-9) NRBC/100 WBC (test See_Comment [Automat ed message] code = 6541047500) The syste m which generated this result transmitted ref erence range: 0.0 - 10 .0 /100 WBCs. The refer ence range was not u sed to interpret this result as normal/abnor mal. NRBC x10^3 (test See_Comment [Automated message] code = 0448803676) The syste m which generated this result transmitted ref erence range: 10*3/?L. The reference range was not used to interpr et this result as normal/abnormal . GRAN MAT (NEUT) % 67.8 % (test code = 770-8) IMM GRAN % (test 0.40 % code = 9946221276) LYMPH % (test code 21.7 % = 736-9) MONO % (test code 8.1 % = 5905-5) EOS % (test code = 1.6 % 713-8) BASO % (test code 0.4 % = 706-2) GRAN MAT 5.46 10*3/uL 1.88-7.09 x10^3(ANC) (test code = 2074189735) IMM GRAN x10^3 0.03 10*3/uL 0-0.06 (test code = 0212425663) LYMPH x10^3 (test 1.75 10*3/uL 1.32-3.29 code = 731-0) MONO x10^3 (test 0.65 10*3/uL 0.33-0.92 code = 742-7) EOS x10^3 (test 0.13 10*3/uL 0.03-0.39 code = 711-2) BASO x10^3 (test 0.03 10*3/uL 0.01-0.07 code = 704-7) [facility] AustinLactic Acid Whole [id number] 16:00:27 Test Item Value Reference Range Interpretation Comments LACTIC ACID (test code = 1.28 mmol/L 0.5-2.2 1349679564) Lab Interpretation (test code = Normal 19161-6) [facility] AustinPOCT [id number] 15:23:00 Test Item Value Reference Range Interpretation Comments On board controls acceptable with negative C Line (test code = 3574) POCT PREG LOT # (test code = 3575) [id number] POCT PREG TEST DATE (test 07/10/2023 code = 3576) Lab Interpretation (test code = Normal 68221-1) [facility] AustinURINE [id number] 08:18:44 Test Item Value Reference Range Interpretation Comments CULTURE (BEAKER) (test code = 1095) No growth POCT urinalysis [id number] 15:10:00 Test Item Value Reference Range Interpretation Comments Glucose Urine, POC Negative Negative (test code = 68160-9) Bilirubin Urine, POC Negative Negative (test code = 5770-3) Ketones Urine, POC Negative Negative (test code = 2514-8) Specific [place] 1.025 SG Ratio See_Comment [Automat ed Urine, [...] 100 mg/dL Negative A (test code = 95476-5) Urobilinogen Urine, 0.2 mg/dL See_Comment [Automa abdias POC (test code = message] Th e 5419337) system which generated this result transmit abdias reference range : 0.2 mg/dL, 1 mg/dL. The reference range was not used to interpret this result as normal/abnormal . Nitrite Urine, POC Negative Negative (test code = 5783738) Leukocyte Esterase Trace Negative A Urine, POC (test code = 7271492) Lab Interpretation Abnormal (test code = 21331-1) [facility] [id number] 15:10:00 Test Item Value Reference Range Interpretation Comments Glucose Urine, POC Negative Negative (test code = 36935-8) Bilirubin Urine, POC Negative Negative (test code = 5770-3) Ketones Urine, POC Negative Negative (test code = 2514-8) Specific [place] 1.025 SG Ratio See_Comment [Automat ed Urine, [...] 100 mg/dL Negative A (test code = 93463-5) Urobilinogen Urine, 0.2 mg/dL See_Comment [Automa abdias POC (test code = message] Th e 4839707) system which generated this result transmit abdias reference range : 0.2 mg/dL, 1 mg/dL. The reference range was not used to interpret this result as normal/abnormal . Nitrite Urine, POC Negative Negative (test code = 9292651) Leukocyte Esterase Trace Negative A Urine, POC (test code = 6113969) Lab Interpretation Abnormal (test code = 93501-9) [facility] [id number] 09:25:10 Test Item Value Reference Range Interpretation Comments CULTURE (BEAKER) (test <10,000 col/mL skin code = 1095) layla U/S, RENAL, [id number] 18:13:00Reason for exam:->hydronephrosisShould this be performed at the bedside?->Yes [facility] : 1980 Sex: FFINAL [...] midpole the left kidney. Signed: Jose Juan Arellanoort Verified Date/Time: 03/20/2022 18:13:07 Reading Location: [facility] CBC W/PLT COUNT & AUTO [id number] 06:18:00 Test Item Value Reference Range Interpretation [...] GRANULOCYTES-RELATIVE PERCENT (BEAKER) (test code = 2801) [id number] 05:41:29 Test Item Value Reference Range Interpretation Comments MAGNESIUM (BEAKER) 2.2 mg/dL 1.5-3.0 Specimen slightly (test code = 627) hemolyzed Reconciliation Specialist ID - LITOOperator ID - LITOOperator ID - LITOOperator ID - LITOBASIC METABOLIC [id number] 05:40:09 Test Item Value Reference Range Interpretation [...] not appl icable for dialysis patien ts Reconciliation Specialist ID - LITOOperator ID - LITOOperator ID - LITOOperator ID - LITOOperator ID - LITOOperator ID - LITOOperator ID - LITOOperator ID - LITOOperator ID - [id number] 05:38:48 Test Item Value Reference Range Interpretation Comments PHOSPHORUS (BEAKER) 4.2 mg/dL 2.5-4.5 Specimen slightly (test code = 604) hemolyzed Reconciliation Specialist ID - LITOU/S, RENAL, [id number] 12:56:00Reason for exam:- >left hydroureteronephrosis s/p removal of stent [facility] : 1980 Sex: FFINAL [...] Jb Webb MDReport Verified Date/Time: 03/19/2022 12:56:31 [id number] 04:34:14 Test Item Value Reference Range Interpretation Comments MAGNESIUM (BEAKER) (test code = 2.1 mg/dL 1.5-3.0 627) Reconciliation Specialist ID - [id number] ID - [id number] ID - [id number] ID - [id number] METABOLIC [id number] 04:32:32 Test Item Value Reference Range Interpretation [...] not appl icable for dialysis patien ts Reconciliation Specialist ID - [id number] ID - [id number] ID - [id number] ID - [id number] ID - [id number] ID - [id number] ID - [id number] ID - [id number] ID - [id number] 04:31:07 Test Item Value Reference Range Interpretation Comments PHOSPHORUS (BEAKER) (test code = 5.0 mg/dL 2.5-4.5 H 604) Reconciliation Specialist ID - [id number] W/PLT COUNT & AUTO [id number] 04:01:38 Test Item Value Reference Range Interpretation [...] PERCENT (BEAKER) (test code = 2801) COVID [id number] 16:49:06 Test Item Value Reference Range Interpretation Comments SARS COVID ANTIGEN (test code = Negative Negative 02183018) The QuickVue SARS Antigen test does not differentiate between SARS-CoV and SARS-CoV-2.The test has been authorized by the FDA under an EUA for use by authorized laboratories.CT, [id number] 15:53:00Recent stone removalUnlisted Reason for Exam - Click Yes and Enter Reason Below->NoIs this for enterography?->NoWill this procedure require oral contrast?->No [facility] : 1980 Sex: FFINAL [...] Marisela Stokes MDReport Verified Date/Time: 03/18/2022 15:53:15 [facility]. FINAN CENTEROMPREHENSIVE METABOLIC [id number] 15:36:07 Test Item Value Reference Range Interpretation [...] G3b Moderately to s everely 30-44 G4 Sever ly decreased 15-29 G5 Kidney failure <15Repo rted eGFR is based on the CKD-EPI 2020 equation t hat does not use a race coefficientEsti mated GFR is not as accur ate as Creatinine Jaleesa enciso in predicting glom erular filtration rate . Estimated GFR is not appl icable for dialysis patien ts Reconciliation Specialist ID - [id number] ID - [id number] ID - [id number] ID - [id number] ID - [id number] ID - [id number] ID - [id number] ID - [id number] ID - [id number] ID - [id number] ID - [id number] ID - [id number] ID - [id number] ID - [id number] ID - [id number] ID - [id number] ID - [id number] ID - [id number] ID - [id number] URINALYSIS W/ REFLEX URINE [id number] 15:27:39 Test Item Value Reference Range Interpretation [...] 1663) SOURCE(BEAKER) (test code = 2795) SCREEN, [id number] 15:22:40 Test Item Value Reference Range Interpretation Comments TEST URINE (BEAKER) (test Negative Negative code = 583) CBC W/PLT COUNT & AUTO [id number] 15:08:16 Test Item Value Reference Range Interpretation [...] 2801) FL, FLUORO, NON-SPECIFIC, UP TO 1 [id number] 09:12:00Reason for exam:- >LEFT CYSTOSCOPY WITH URETEROSCOPY, LASER LITHOTRIPSY AND STENT PLACEMENT [facility] 1980 Sex: FAn imaging unit was utilized for this procedure. No radiologist interpretation was requested. Refer to the EMR for findings. Refer to PACS for any patient radiation dose information. SCREEN, [id number] 06:03:33 Test Item Value Reference Range Interpretation Comments TEST URINE (BEAKER) (test Negative Negative code = 583) BASIC METABOLIC [id number] 11:27:22 Test Item Value Reference Range Interpretation [...] not appl icable for dialysis patien ts Reconciliation Specialist ID - [id number] ID - [id number] ID - [id number] ID - [id number] ID - [id number] ID - [id number] ID - [id number] ID - [id number] ID - [id number] ID - [id number] ID - [id number] ID - [id number] TIME/INR 2022-03-11 11:23:36 Test Item Value Reference Range Interpretation Comments PROTIME (BEAKER) 10.5 seconds 9.3-12.0 Final Infor mation (test code = 759) (Auto Outp ut) INR (BEAKER) (test 0.95 See_Comment Final Inf ormation code = 370) (Auto Output) [Automated mess age] The system iRates generated this result transmitted ref erence range: <=5.90. The reference range was not used to int erpret this result as normal/abnormal . RECOMMENDED COUMADIN/WARFARIN INR THERAPY RANGESSTANDARD DOSE: 2.0 - 3.0 Includes: PROPHYLAXIS for venous thrombosis, systemic embolization; TREATMENT for venous thrombosis and/or pulmonary embolus.HIGH RISK: Target INR is 2.5-3.5 for patients with mechanical heart valves.COVID [id number] 11:21:17 Test Item Value Reference Range Interpretation Comments SARS COVID ANTIGEN (test code = Negative Negative 52433110) The QuickVue SARS Antigen test does not differentiate between SARS-CoV and SARS-CoV-2.The test has been authorized by the FDA under an EUA for use by authorized laboratories.CBC W/PLT COUNT & AUTO [id number] 11:11:46 Test Item Value Reference Range Interpretation [...] PERCENT (BEAKER) (test code = 2801) URINE [id number] 09:41:48 Test Item Value Reference Range Interpretation [...] S Sulfamethoxazole (test code = 47) URINE [id number] 08:37:00 Test Item Value Reference Range Interpretation Comments Culture Observations (test NO GROWTH (<1,000 code = COB1) CFU/ML) COMPREHENSIVE METABOLIC [id number] 06:26:00 Test Item Value Reference Range Interpretation [...] as normal/abnormal . GFR 128 See_Comment [Automated MONTENEGRIN (test mL/min/1.73m\\S\\2 message] The code = GFRAA) [...] RBC MORPH (test code = RBCMOR) NORMAL [id number] 08:21:00 Test Item Value Reference Range Interpretation Comments MAGNESIUM (test code = 48A) 1.9 mg/dL 1.6-2.6 PHOSPHORUS (P04)2022-01-18 08:18:00 Test Item Value Reference Range Interpretation Comments PHOSPHORUS (test code = 43D) 3.0 mg/dL 2.4-5.1 COMPREHENSIVE METABOLIC [id number] 06:13:00 Test Item Value Reference Range Interpretation [...] as normal/abnormal . GFR 124 See_Comment [Automated MONTENEGRIN (test mL/min/1.73m\\S\\2 message] The code = GFRAA) [...] (test code = MDIFF) NO COMPREHENSIVE METABOLIC [id number] 15:55:00 Test Item Value Reference Range Interpretation [...] as normal/abnormal . GFR 92 See_Comment [Automated MONTENEGRIN (test mL/min/1.73m\\S\\2 message] The code = GFRAA) [...] the FDA and the [employer] the [employer] (CAP) are more stringent than those [...] RBC MORPH (test code = RBCMOR) NORMAL [id number] 08:46:00 Test Item Value Reference Range Interpretation Comments AMYLASE (test code = 10A) 47 U/L 30-118 LIPASE [id number] 08:46:00 Test Item Value Reference Range Interpretation Comments LIPASE (test code = 60A) 27 IU/L 12-53 CARDIAC [id number] 08:43:00 Test Item Value Reference Range Interpretation Comments TROPONIN I (test code = A84) 3.14 pg/mL 0.00-45.20 URINALYSIS WITH [id number] 08:38:00 Test Item Value Reference Range Interpretation [...] (test code = USPERM) /HPF NONE URINE [id number] 08:27:00 Test Item Value Reference Range Interpretation Comments PREG UR (test code = PGU) NEGATIVE NEGATIVE URINE [id number] 09:05:00 Test Item Value Reference Range Interpretation Comments Isolate 1 (test Coagulase negative code = ISO1) staphylococcus CT ABDOMEN AND PELVIS W/O [id number] 14:30:35 [facility] : 1980 Sex: FCT ABDOMEN [...] Alyson Madsen MD 01/13/2022 2:30 PM CDT [id number] WITH [id number] 14:18:00 Test Item Value Reference Range Interpretation [...] code = USPERM) /HPF NONE BASIC METABOLIC [id number] 14:07:00 Test Item Value Reference Range Interpretation [...] as normal/abnormal . GFR 92 See_Comment [Automated MONTENEGRIN (test mL/min/1.73m\\S\\2 message] The code = GFRAA) [...] code 8.5 mg/dL 8.3-10.6 = 09D) SERUM [id number] 14:03:00 Test Item Value Reference Range Interpretation [...] MORPH (test code = RBCMOR) NORMAL CT, [id number] 19:32:00Unlisted Reason for Exam - Click Yes and Enter Reason Below->NoIs this for enterography?->NoPlease specify:->Renal Stone ProtocolWill this procedure require oral contrast?->No [facility] 1980 Sex: FFINAL [...] Serjio Ruelas MDReport Verified Date/Time: 01/10/2022 19:32:37 [id number] 16:47:32 Test Item Value Reference Range Interpretation Comments LIPASE (BEAKER) (test code = 749) 8 U/L 6-51 Reconciliation Specialist ID - [id number] ID - [id number] ID - [id number] ID - [id number] METABOLIC [id number] 16:47:05 Test Item Value Reference Range Interpretation [...] S NOT APPLICABLE FOR DIALYSIS PATIEN TS. Reconciliation Specialist ID - [id number] ID - [id number] ID - [id number] ID - [id number] ID - [id number] ID - [id number] ID - [id number] ID - [id number] ID - [id number] ID - [id number] ID - [id number] ID - [id number] ID - [id number] ID - [id number] ID - [id number] ID - [id number] URINALYSIS W/ REFLEX URINE [id number] 16:36:26 Test Item Value Reference Range Interpretation Comments COLOR (BEAKER) (test code = 470) [place] CLARITY (BEAKER) (test code = Cloudy 469) [...] 1663) SOURCE(BEAKER) (test code = 2795) SCREEN, [id number] 16:36:04 Test Item Value Reference Range Interpretation Comments TEST URINE (BEAKER) (test Negative code = 583) CBC W/PLT COUNT & AUTO [id number] 16:27:24 Test Item Value Reference Range Interpretation [...] 2801) FL, FLUORO, NON-SPECIFIC, UP TO 1 [id number] 14:30:00Reason for exam:- >CYSTO, URETEROSCOPY, ROOM 2 [facility] : 1980 Sex: FAn imaging unit was utilized for this procedure. No radiologist interpretation was requested. Refer to the EMR for findings. Refer to PACS for any patient radiation dose information. SCREEN, [id number] 12:00:57 Test Item Value Reference Range Interpretation Comments TEST URINE (BEAKER) (test Negative code = 583) SARS-CoV2/RT-PCR (Asymptomatic ONLY)2022-01-01 17:14:50 Test Item Value Reference Interpretation Comments Range SARS-COV2/RT-PCR Negative Negative The SARS-Co V-2 (test code = target nucleic 65684-0) acids are not detected in thi s [...] revoked sooner. Fact Sheet for Healthcare Providers: https://www.[employer]/Documents/Xp ert%20Xpress%20SAR S%20CoV-2/Fact%20S heets/302-3802%20S ARS-COV-2%20HEALTH CARE%20PROVIDERS%2 0FACT%20SHEET.pdf Fact Sheet for Healthcare Patients: https://www.[employer]/Documents/Xp ert%20Xpress%20SAR S%20CoV-2/Fact%20S heets/302-3801%20S ARS-COV-2%20PATIEN T%20FACT%20SHEET.p df Lab Interpretation Normal (test code = 16848-6) [facility]2022-01-01 17:14:50 Test Item Value Reference Interpretation Comments Range SARS-COV2/RT-PCR Negative Negative The SARS-Co V-2 (test code = target nucleic 12586-3) acids are not detected in thi s [...] revoked sooner. Fact Sheet for Healthcare Providers: https://www.[employer]/Documents/Xp ert%20Xpress%20SAR S%20CoV-2/Fact%20S heets/302-3802%20S ARS-COV-2%20HEALTH CARE%20PROVIDERS%2 0FACT%20SHEET.pdf Fact Sheet for Healthcare Patients: https://www.[employer]/Documents/Xp ert%20Xpress%20SAR S%20CoV-2/Fact%20S heets/302-3801%20S ARS-COV-2%20PATIEN T%20FACT%20SHEET.p df Lab Interpretation Normal (test code = 47285-9) [facility])2022-01-01 17:14:50 Test Item Value Reference Range Interpretation Comments SARS-COV2/RT-PCR Negative Negative The SARS-Co V-2 target (test code = nucleic acids a re not 0429569) detected in thi s specimen. Negative result s do not preclude SARS-C oV-2 infection and s hould not be used as the eileen e basis for patient managem ent decisions. Nega tive results must be combine d with clinical observ ations, patient history , and epidemiological information. A false negativ e result may occur if a spec imen is improperly paul ected, transported or handled. This SARS CoV-2 [...] revoked sooner. Fact Sheet for Healthcare Providers: https://www.[employer] m/Documents/Xpert%20Xpress%20SARS%20CoV-2/Fact%20Sheets/302-3802%31LWAU-TLY-2%20 HEALTHCARE%20PROVIDERS%20FACT%20SHEET.pdf Fact Sheet for Healthcare Patients: https://www.[employer]/Documents/Xpert%20Xp ress%20SARS%20CoV-2/Fact%20Sheets/302-3801%51HOKJ-NAV-2%20PATIENT%20FACT%20SHEET .pdfBASI METABOLIC [id number] 10:13:02 Test Item Value Reference Range Interpretation [...] S NOT APPLICABLE FOR DIALYSIS PATIEN TS. Reconciliation Specialist ID - DSENSONOperator ID - DSENSONOperator ID - DSENSONOperator ID - DSENSONOperator ID - DSENSONOperator ID - DSENSONOperator ID - DSENSONOperator ID - DSENSONOperator ID - DSENSONOperator ID - DSENSONOperator ID - DSENSONOperator ID - DSENSONPROTHROMBIN TIME/[id number] 10:08:26 Test Item Value Reference Range Interpretation Comments PROTIME (BEAKER) 10.2 seconds 9.3-12.0 Final Infor mation (test code = 759) (Auto Outp ut) INR (BEAKER) (test 0.92 See_Comment Final Inf ormation code = 370) (Auto Output) [Automated mess age] The system iRates generated this result transmitted ref erence range: <=5.90. The reference range was not used to int erpret this result as normal/abnormal . RECOMMENDED COUMADIN/WARFARIN INR THERAPY RANGESSTANDARD DOSE: 2.0 - 3.0 Includes: PROPHYLAXIS for venous thrombosis, systemic embolization; TREATMENT for venous thrombosis and/or pulmonary embolus.HIGH RISK: Target INR is 2.5-3.5 for patients with mechanical heart valves.CBC W/PLT COUNT & AUTO [id number] 09:59:29 Test Item Value Reference Range Interpretation [...] 0-0 PERCENT (BEAKER) (test code = 2801) [facility] PROTOCOL [id number] 15:47:08 [facility] : 1980 Sex: FLOCATION: [facility] STORY: 41-year-old female who presents with flank [...] Jeremi Hassan MD 12/23/2021 3:47 PM CDT [id number] METABOLIC [id number] 15:34:00 Test Item Value Reference Range Interpretation [...] as normal/abnormal . GFR 106 See_Comment [Automated MONTENEGRIN (test mL/min/1.73m\\S\\2 message] The code = GFRAA) [...] = 61 IU/L 10-49 H 31A) LIPASE [id number] 15:34:00 Test Item Value Reference Range Interpretation Comments LIPASE (test code = 60A) 64 IU/L 12-53 H [id number] 15:34:00 Test Item Value Reference Range Interpretation Comments MAGNESIUM (test code = 48A) 2.1 mg/dL 1.6-2.6 SERUM [id number] 15:30:00 Test Item Value Reference Range Interpretation [...] RBCMOR) NORMAL CT ABDOMEN AND PELVIS W/O [id number] 14:54:57 [facility] : 1980 Sex: FHISTORY: Flank pain; Abdominal painEXAM: CT abdomen and pelvis without IV contrast.Location code:[id number]:Contrast - No IV contrast was given,Noncontrast phase [...] organs and vasculature. Lack of oral contrast compromises evaluation of bowel. Thoracic: Included images of [...] appendix is surgically absent.Vascular: Atherosclerotic calcifications are seen within the aorta and branch vessels. Lymphatics: No enlarged lymph nodes by CT size criteria.Bones/Soft Tissues: No acute osseous findings. No ventral hernias.Peritoneum/Other: No extraluminal air. No extraluminal fluid.IMPRESSION:1. Bilateral nonobstructing nephrolithiasis is present.2. Hepatomegaly. Electronically signed by: Zachary Colin MD 12/22/2021 2:54 PM CDT [id number] WITH [id number] 14:36:00 Test Item Value Reference Range Interpretation [...] (test code = USPERM) /HPF NONE URINE [id number] 14:23:00 Test Item Value Reference Range Interpretation Comments PREG UR (test code = PGU) NEGATIVE NEGATIVE COMPREHENSIVE METABOLIC [id number] 13:49:00 Test Item Value Reference Range Interpretation [...] as normal/abnormal . GFR 124 See_Comment [Automated MONTENEGRIN (test mL/min/1.73m\\S\\2 message] The code = GFRAA) [...] . ALT (test code = 23 IU/L 10-49 31A) LIPASE [id number] 13:49:00 Test Item Value Reference Range Interpretation [...] MORPH (test code = RBCMOR) NORMAL Urine [id number] 14:01:40 Test Item Value Reference Range Interpretation Comments Result (test code = 6463-4) No growth [facility] [id number] 14:01:40 Test Item Value Reference Range Interpretation Comments Result (test code = 6463-4) No growth [facility] [id number] 14:01:40 Test Item Value Reference Range Interpretation Comments CULTURE (BEAKER) (test code = 1095) No growth RAD, ABDOMEN/KUB 1 VIEW [id number] 10:50:00Reason for Exam:->N20 [facility] 1980 Sex: FFINAL REPORT KUB History provided: N 20 No small or large bowel dilatation. No obstructive signs or localizing abnormalities. Right upper quadrant cholecystectomy clips. Signed: Nirav Sprague MDReport Verified Date/Time: 08/24/2021 10:50:54 Reading Location: [facility] Radiology Reading Room U/S, RENAL, [id number] 14:03:00Reason for exam:->R flank painReason for exam:- >R/O blockageCH[facility] : 1980 Sex: [...] Verified Date/Time: 06/20/2021 14:03:14 Rapid drug screen, [id number] 11:49:39 Test Item Value Reference Range Interpretation Comments Barbiturate Screen Negative Negative (test code = 79492-8) Benzodiazepine Screen Negative Negative (test code = 75097-8) Cocaine (Metab.) Negative Negative Screen (test code = 3397-7) Opiate Screen (test Negative Negative code = 79561-5) Cannabinoid Screen Positive Negative A (test code = 99330-8) Amph/Methamph Screen Negative Negative (test code = 41531-5) Phencyclidine Screen Negative Negative (test code = 47602-8) pH, UA (test code = 6.0 5.0-8.0 5803-2) LEXA (test code = LEXA) DRUG CUTOFF CONC.Cocaine 300 ng/mL Cannabinoid 50 ng/mLBenzodiazepine 200 ng/mLBarbiturate 200 ng/mLPhencyclidine 25 ng/mLOpiate 300 ng/mLMethadone 300 ng/mLAmphetamine/ 1000 ng/mL Methamphetamine This assay provides an unconfirmed qualitative test result for the clinical management of patients in emergency situations. Chain of custody not maintained. Some zsnj-dsx-xrczaxk medications, as well as adulterants, may cause inaccurate results. Clinical correlation should be applied. A more comprehensive drug screen or confirmation of a detected drug may be performed upon request.Reconciliation Specialist ID - LITOOperator ID - LITOOperator ID - LITOOperator ID - LITOOperator ID - LITOOperator ID - LITOOperator ID - MOHINDER Lab Interpretation Abnormal (test code = 94357-2) [facility], [id number] 11:49:39 Test Item Value Reference Range Interpretation Comments Barbiturate Screen Negative Negative (test code = 92778-4) Benzodiazepine Screen Negative Negative (test code = 35386-5) Cocaine (Metab.) Negative Negative Screen (test code = 3397-7) Opiate Screen (test Negative Negative code = 42168-5) Cannabinoid Screen Positive Negative A (test code = 40657-0) Amph/Methamph Screen Negative Negative (test code = 86120-7) Phencyclidine Screen Negative Negative (test code = 99198-1) pH, UA (test code = 6.0 5.0-8.0 5803-2) LEXA (test code = LEXA) DRUG CUTOFF CONC.Cocaine 300 ng/mL Cannabinoid 50 ng/mLBenzodiazepine 200 ng/mLBarbiturate 200 ng/mLPhencyclidine 25 ng/mLOpiate 300 ng/mLMethadone 300 ng/mLAmphetamine/ 1000 ng/mL Methamphetamine This assay provides an unconfirmed qualitative test result for the clinical management of patients in emergency situations. Chain of custody not maintained. Some dhdb-tvf-xcqqibi medications, as well as adulterants, may cause inaccurate results. Clinical correlation should be applied. A more comprehensive drug screen or confirmation of a detected drug may be performed upon request.Reconciliation Specialist ID - LITOOperator ID - LITOOperator ID - LITOOperator ID - LITOOperator ID - LITOOperator ID - LITOOperator ID - MOHINDER Lab Interpretation Abnormal (test code = 35739-2) [facility], [id number] 11:49:39 Test Item Value Reference Range Interpretation [...] ng/mLOpiate 300 ng/mLMethadone 300 ng/mLAmphetamine/ 1000 ng/mL MethamphetamineThisassay provides an unconfirmed qualitative test result for the clinical management of patients in emergency situations. Chain of custody not maintained. Some eccy-flx-atvcstd medications, as well as adulterants, may cause inaccurate results. Clinical correlation should be applied. A more comprehensive drug screen or confirmation of a detected drug may be performed upon request.Reconciliation Specialist ID - LITOOperator ID - LITOOperator ID - LITOOperator ID - LITOOperator ID - LITOOperator ID - LITOOperator ID - LITOUrinalysis w/Microscopic + Reflex to [id number] 11:48:53 Test Item Value Reference Range Interpretation Comments Color, UA (test code = Yellow 5778-6) Clarity, UA (test code Hazy = 5767-9) Specific [place], UA 1.025 1.001-1.035 (test code = 5811-5) pH, UA (test code = 6.0 5.0-8.0 5803-2) Protein, UA (test code Trace Negative A = 60383-8) Glucose, UA (test code Negative Negative = 365) Ketones, UA (test code Negative Negative = 2514-8) Bilirubin, UA (test Negative Negative code = 37936-3) Blood, UA (test code = Large Negative A 33904-0) Nitrite, UA (test code Negative Negative = 5802-4) Leukocytes, UA (test Negative Negative code = 5799-2) Urobilinogen, UA (test 0.2 mg/dL 0.2-1.0 code = 84112-5) Bacteria, UA (test code Occasional = 43713-7) Mucus (test code = Few 8247-9) RBC, UA (test code = 50-100 See_Comment [Autom ated message] 799-7) The system iRates generated this result transmit abdias reference range : /HPF. The refer ence range was not u sed to interpret th is result as normal/abnormal . WBC, UA (test code = <5 See_Comment [Autom ated message] 23145-7) The system iRates generated this result transmit abdias reference range : /HPF. The refer ence range was not u sed to interpret th is result as normal/abnormal . SQUAMOUS EPITHELIAL 5-10 See_Comment [Automa abdias message] (test code = 58802-1) The sy stem which generated this result transmit abdias reference range : /HPF. The refer ence range was not u sed to interpret th is result as normal/abnormal . Specimen Source (test code = 2795) Lab Interpretation Abnormal (test code = 33193-1) [facility] w/Microscopic + Reflex to Culture 2021-06-20 11:48:53 Test Item Value Reference Range Interpretation Comments Color, UA (test code = Yellow 5778-6) Clarity, UA (test code Hazy = 5767-9) Specific [place], UA 1.025 1.001-1.035 (test code = 5811-5) pH, UA (test code = 6.0 5.0-8.0 5803-2) Protein, UA (test code Trace Negative A = 71343-3) Glucose, UA (test code Negative Negative = 365) Ketones, UA (test code Negative Negative = 2514-8) Bilirubin, UA (test Negative Negative code = 16003-8) Blood, UA (test code = Large Negative A 21942-7) Nitrite, UA (test code Negative Negative = 5802-4) Leukocytes, UA (test Negative Negative code = 5799-2) Urobilinogen, UA (test 0.2 mg/dL 0.2-1.0 code = 72007-9) Bacteria, UA (test code Occasional = 85970-9) Mucus (test code = Few 8247-9) RBC, UA (test code = 50-100 See_Comment [Autom ated message] 799-7) The system iRates generated this result transmit abdias reference range : /HPF. The refer ence range was not u sed to interpret th is result as normal/abnormal . WBC, UA (test code = <5 See_Comment [Autom ated message] 72049-9) The system iRates generated this result transmit badias reference range : /HPF. The refer ence range was not u sed to interpret th is result as normal/abnormal . SQUAMOUS EPITHELIAL 5-10 See_Comment [Automa abdias message] (test code = 46438-5) The sy stem which generated this result transmit abdias reference range : /HPF. The refer ence range was not u sed to interpret th is result as normal/abnormal . Specimen Source (test code = 2795) Lab Interpretation Abnormal (test code = 97174-2) [facility]/ REFLEX URINE [id number] 11:48:53 Test Item Value Reference Range Interpretation [...] = 1663) SOURCE(BEAKER) (test code = 2795) [id number] 11:45:25 Test Item Value Reference Range Interpretation Comments Lipase (test code = 26 U/L 6-51 3040-3) LEXA (test code = LEXA) Reconciliation Specialist ID - LITOOperator ID - LITOOperator ID - LITOOperator ID - MOHINDER Lab Interpretation (test Normal code = 53782-3) [facility]2021-[facility]-10 11:45:25 Test Item Value Reference Range Interpretation Comments Lipase (test code = 26 U/L 6-51 3040-3) LEXA (test code = LEXA) Reconciliation Specialist ID - LITOOperator ID - LITOOperator ID - LITOOperator ID - MOHINDER Lab Interpretation (test Normal code = 93532-7) [facility]ASE2021-[facility]-10 11:45:25 Test Item Value Reference Range Interpretation Comments LIPASE (BEAKER) (test code = 749) 26 U/L 6-51 Reconciliation Specialist ID - LITOOperator ID - LITOOperator ID - LITOOperator ID - MOHINDER Comprehensive metabolic [id number] 11:44:44 Test Item Value Reference Range Interpretation Comments Protein, Total 7.3 See_Comment [Automated (test code = message] The 2885-2) system which generated this result transmitted reference range : 6.0 - 8.5 gm/dL . The reference range was not used to interpr et this result as normal/abnormal . Albumin (test code 3.8 g/dL 3.5-5.0 = 36713-7) Alkaline 41 U/L 30-115 Phosphatase (test code [...] Calcium (test code 8.6 mg/dL 8.5-10.5 = 18878-3) AST (test code = 15 U/L 5-40 192-8) ALT (test code = 11 U/L 5-50 1742-6) EGFR (test code = 71 mL/min/1.73 [place] [address]-9) NOT ACCURATE CREATININE CLEARANCE IN PREDICTING GLOMERULAR FILTRATION RATE . ESTIMATED GFR I S NOT APPLICABLE FOR DIALYSIS PATIENTS. LEXA (test code = Reconciliation Specialist ID - LEXA) LITOOperator ID - LITOOperator ID - LITOOperator ID - LITOOperator ID - LITOOperator ID - LITOOperator ID - LITOOperator ID - LITOOperator ID - LITOOperator ID - LITOOperator ID - LITOOperator ID - LITOOperator ID - LITOOperator ID - LITOOperator ID - LITOOperator ID - MOHINDER [facility]Com[facility] [id number] 11:44:44 Test Item Value Reference Range Interpretation Comments Protein, Total 7.3 See_Comment [Automated (test code = message] The 8125-2) system which generated this result transmitted reference range : 6.0 - 8.5 gm/dL . The reference range was not used to interpr et this result as normal/abnormal . Albumin (test code 3.8 g/dL 3.5-5.0 = 00442-7) Alkaline 41 U/L 30-115 Phosphatase (test code = 6768-6) Total Bilirubin 0.3 mg/dL 0.1-1.2 (test code = 1974-2) Sodium (test code 140 meq/L 135-148 = 2951-2) Potassium (test 4.6 meq/L 3.6-5.5 code = 2823-3) Chloride (test 104 meq/L 98-106 code = 2075-0) CO2 (test code = 27 meq/L -29 2027-9) BUN (test code = 11 mg/dL - 3094-0) Creatinine (test 0.88 mg/dL 0.50-1.20 code = 2160-0) Glucose (test code 92 mg/dL 70-110 = 2345-7) Calcium (test code 8.6 mg/dL 8.5-10.5 = 19242-8) AST (test code = 15 U/L -40 192-8) ALT (test code = 11 U/L -50 1742-6) EGFR (test code = 71 mL/min/1.[place] [address]-3) NOT ACCURATE CREATININE CLEARANCE IN PREDICTING GLOMERULAR FILTRATION RATE . ESTIMATED GFR I S NOT APPLICABLE FOR DIALYSIS PATIENTS. LEXA (test code = Reconciliation Specialist ID - LEXA) LITOOperator ID - LITOOperator ID - LITOOperator ID - LITOOperator ID - LITOOperator ID - LITOOperator ID - LITOOperator ID - LITOOperator ID - LITOOperator ID - LITOOperator ID - LITOOperator ID - LITOOperator ID - LITOOperator ID - LITOOperator ID - LITOOperator ID - MOHINDER [facility]COMPREHENS[facility] METABOLIC [id number] 11:44:44 Test Item Value Reference Range Interpretation [...] S NOT APPLICABLE FOR DIALYSIS PATIEN TS. Reconciliation Specialist ID - LITOOperator ID - LITOOperator ID - LITOOperator ID - LITOOperator ID - LITOOperator ID - LITOOperator ID - LITOOperator ID - LITOOperator ID - LITOOperator ID - LITOOperator ID - LITOOperator ID - LITOOperator ID - LITOOperator ID - LITOOperator ID - LITOOperator ID - LITOPregnancy Screen, [id number] 11:36:39 Test Item Value Reference Range Interpretation Comments Preg Test, Ur (test code = 2111-) Negative [facility]regnancy Screen, [id number] 11:36:39 Test Item Value Reference Range Interpretation Comments Preg Test, Ur (test code = 2111-) Negative [facility]PREGNANCY SCREEN, [id number] 11:36:39 Test Item Value Reference Range Interpretation Comments TEST URINE (BEAKER) (test Negative code = 583) CBC with platelet count + automated [id number] 11:30:26 Test Item Value Reference Range Interpretation Comments WBC (test code = 6690-2) 6.9 See_Comment [A utomated message] The system iRates generated this result transmitted ref erence range: 4.0 - 10 .0 K/L. The refe rence range was not u sed to interpret this result as normal/abnor mal. RBC (test code = 789-8) 4.50 See_Comment [Au tomated message] The system iRates generated this result transmitted ref erence range: 4.00 - 5 .00 M/L. The refe rence range was not u sed to interpret this result as normal/abnor mal. MCHC (test code = 786-4) 33.4 See_Comment [A utomated message] The system iRates generated this result transmitted ref erence range: [...] See_Comment [Aut omated message] 777-3) The system iRates generated this result transmitted ref erence range: 150 - 43 0 K/CU MM. The referen ce range was not u sed to interpret this result as normal/abnor mal. MPV (test code = 11.6 fL 6.0-11.5 H 93058-0) nRBC (test code = 413) 0 See_Comment [Aut omated message] The system iRates generated this result transmitted ref erence range: [...] See_Comment [Aut omated message] 670) The system iRates generated this result transmitted ref erence range: 1.80 - 8 .00 K/L. The refe rence range was not u sed to interpret this result as normal/abnor mal. # Lymphs (test code = 2.88 See_Comment [Auto mated message] 414) The system iRates generated this result transmitted ref erence range: 1.48 - 4 .50 K/L. The refe rence range was not u sed to interpret this result as normal/abnor mal. # Monos (test code = 0.62 See_Comment [Autom ated message] 415) The system iRates generated this result transmitted ref erence range: 0.00 - 1 .30 K/L. The refe rence range was not u sed to interpret this result as normal/abnor mal. # Eos (test code = 416) 0.13 See_Comment [Au tomated message] The system iRates generated this result transmitted ref erence range: 0.00 - 0 .50 K/L. The refe rence range was not u sed to interpret this result as normal/abnor mal. # Baso (test code = 417) 0.04 See_Comment [A utomated message] The system iRates generated this result transmitted ref erence range: 0.00 - 0 .20 K/L. The refe rence range was not u sed to interpret this result as normal/abnor mal. Immature 1 % 0-0 H Granulocytes-Relative (test code = 2801) Lab Interpretation (test Abnormal code = 62705-2) [facility] with platelet count + automated [id number] 11:30:26 Test Item Value Reference Range Interpretation Comments WBC (test code = 6690-2) 6.9 See_Comment [A utomated message] The system iRates generated this result transmitted ref erence range: 4.0 - 10 .0 K/L. The refe rence range was not u sed to interpret this result as normal/abnor mal. RBC (test code = 789-8) 4.50 See_Comment [Au tomated message] The system iRates generated this result transmitted ref erence range: 4.00 - 5 .00 M/L. The refe rence range was not u sed to interpret this result as normal/abnor mal. MCHC (test code = 786-4) 33.4 See_Comment [A utomated message] The system [employer] generated this result transmitted ref erence range: [...] See_Comment [Aut omated message] 777-3) The system iRates generated this result transmitted ref erence range: 150 - 43 0 K/CU MM. The referen ce range was not u sed to interpret this result as normal/abnor mal. MPV (test code = 11.6 fL 6.0-11.5 H 81044-4) nRBC (test code = 413) 0 See_Comment [Aut omated message] The system iRates generated this result transmitted ref erence range: [...] See_Comment [Aut omated message] 670) The system iRates generated this result transmitted ref erence range: 1.80 - 8 .00 K/L. The refe rence range was not u sed to interpret this result as normal/abnor mal. # Lymphs (test code = 2.88 See_Comment [Auto mated message] 414) The system iRates generated this result transmitted ref erence range: 1.48 - 4 .50 K/L. The refe rence range was not u sed to interpret this result as normal/abnor mal. # Monos (test code = 0.62 See_Comment [Autom ated message] 415) The system iRates generated this result transmitted ref erence range: 0.00 - 1 .30 K/L. The refe rence range was not u sed to interpret this result as normal/abnor mal. # Eos (test code = 416) 0.13 See_Comment [Au tomated message] The system iRates generated this result transmitted ref erence range: 0.00 - 0 .50 K/L. The refe rence range was not u sed to interpret this result as normal/abnor mal. # Baso (test code = 417) 0.04 See_Comment [A utomated message] The system iRates generated this result transmitted ref erence range: 0.00 - 0 .20 K/L. The refe rence range was not u sed to interpret this result as normal/abnor mal. Immature 1 % 0-0 H Granulocytes-Relative (test code = 2801) Lab Interpretation (test Abnormal code = 11046-6) [facility] W/PLT COUNT & AUTO [id number] 11:30:26 Test Item Value Reference Range Interpretation [...] CT ABDOMEN AND PELVIS WITH CONTRAST*WW*2021-06-19 15:52:04 [facility] : 1980 Sex: FEXAMINATION:CT ABDOMEN [...] by: Elder Elias MD 06/19/2021 3:52 PM PRINCIPAL ACCOUNTS CLERK [id number] METABOLIC H[place]ISON *WW* 2021-06-19 15:01:00 Test Item [...] as normal/abnormal . GFR 106 See_Comment [Automated MONTENEGRIN (test mL/min/1.73m\\S\\2 message] The code = GFRAA) [...] the FDA and the [employer] the [employer] (CAP) are more stringent than those [...] = WAUAM) NO NO CBC (INCLUDES AUTOMATED DIFFERENTIAL)*[id number] 14:12:00 Test Item Value Reference Range Interpretation [...] code = NORMAL WRBCMOR) XR CHEST 2 [id number] 14:30:47 [facility] : 1980 Sex: FExam: Chest x-ray 2 viewsHISTORY: URICOMPARISON: 07/11/2020Location: [id number]:The heart size is normal and lung gonzalez are clear. Osseous structures are intact.IMPRESSION:1. Normal chest.Electronically signed by: Darin Ribeiro MD 06/15/2021 2:30 PM CDT [address] [place], [place] [id number] 01:30:20 Test Item Value Reference Range Interpretation Comments Ventricular rate (test code = 253) Atrial rate (test code = 255) [place] interval (test code = 266) QRSD interval [...] of 30-NOV-2020 14:19,-No significant change was found- [place] [address] [id number] 01:30:20 Test Item Value Reference Range Interpretation Comments Ventricular rate (test code = 253) Atrial rate (test code = 255) [place] interval (test code = 266) QRSD interval [...] of 30-NOV-2020 14:19,-No significant change was found- [place] [address] [id number] 01:30:20 Test Item Value Reference Range Interpretation Comments Ventricular rate (test code = 253) Atrial rate (test code = 255) [place] interval (test code = 266) QRSD interval [...] of 30-NOV-2020 14:19,-No significant change was found- [facility] [id number] 20:37:47 Test Item Value Reference Range Interpretation Comments Urine culture (test SEE COMMENT Bacteriu woody screen code = 3695108) negative. [facility] [id number] 20:37:47 Test Item Value Reference Range Interpretation Comments Urine culture (test SEE COMMENT Bacteriu woody screen code = 5458689) negative. [facility] [id number] 20:37:47 Test Item Value Reference Range Interpretation Comments Urine culture (test code = SEE COMMENT 2574692) [facility] Abdomen Pelvis W [id number] 20:24:46EXAMINATION: CT ABDOMEN PELVIS W CONTRAST CLINICAL HISTORY: 40 yearsFemale epigastric abd pain h o pancreatitis TECHNIQUE: Multidetector computed axial tomography of the abdomen and pelvis was performed after the uncomplicated intravenous administration of IV contrast utilizing automated exposure control and/or iterative reconstruction technique to decrease radiation dose. Coronal and sagittal reformatted images created by a dedicated fastener technologist at the CT scanner were also [...] sagittal reformatted images created by a dedicated fastener technologist at the CT scanner were also [...] appendectomy.3.Nonobstructive renal stones.4.Other nonacute findings as above.[id number] ED Preliminary Interpretation - Not an Tkuqr9854-97-76 17:06:30SKeiko haney PA-C 02/07/2021 8:21 [facility] [place] Preliminary Interpretation - Not an OrderPerformed by: Keiko Wright PA-CAuthorized by: Jose Juan Akers MD ECG reviewed by ED Physician inthe absence of a astronomy instructor: yes Rate: ECG rate: 64 ECG rate assessment: normal Rhythm: Rhythm: sinus rhythm QRS: QRS intervals: NormalConduction: Conduction: normal ST segments: ST segments: NormalSurgical pathology [id number] 13:48:50 Test Item Value Reference Range Interpretation Comments Case number (test code = [id number]) Surgical pathology See link below for report (test code = PDF Lab Report 2255) Result status (test code This is Final Report = [id number]) [id number] [facility] [id number] 13:48:50 Test Item Value Reference Range Interpretation Comments Case number (test code = [id number]) Surgical pathology See link below for report (test code = PDF Lab Report 2255) Result status (test code This is Final Report = [id number]) for [id number] [facility] [id number] 13:48:50 Test Item Value Reference Range Interpretation Comments Case number (test code = [id number]) Surgical pathology See link below for report (test code = PDF Lab Report 2255) Result status (test code This is Final Report = [id number]) for [id number] [facility] (COVID-19) RNA [Presence] in Respiratory specimen by JORGE with probe iscszpkhv6867-22-99 22:19:37 Test Item Value Reference Range Interpretation Comments SARS-CoV-2 (COVID-19) RNA Not detected Not-Detected [Presence] in Respiratory specimen by JORGE with probe detection (test code = 18319-2) Whether patient is employed in a healthcare setting (test code = 86900-1) Whether the patient has symptoms related to condition of interest (test code = 49401-3) Patient was hospitalized because of this condition (test code = 25531-2) Whether the patient was admitted to intensive care unit (ICU) for condition of interest (test code = 12920-3) Whether patient resides in a congregate care setting (test code = 86818-1) [facility] Ab[facility] 1 [id number] 20:01:45 EXAMINATION: XR ABDOMEN 1 CLINICAL HISTORY: Nausea vomiting COMPARISON: None. IMPRESSION: Nonspecific bowel gas pattern. No dilated gas filled loops of bowel. Mildly prominent transverse colon. Surgical clips are seen within the right upper quadrant of the abdomen likely consistent with prior cholec ystectomy. The bones of the abdomen and pelvis are unremarkable. The lung bases are clear. [id number] Interface, Radiology Results Incoming 11/30/2020 3:04 PM CDT EXAMINATION: XR ABDOMEN 1 CLINICAL HISTORY: Nausea vomitingCOMPARISON: None.IMPRESSION:Nonspecific bowel gas pattern. No dilated gas filled loops of bowel. Mildly prominent transverse colon.Surgical clips are seen within the right upper quadrant of the abdomen likely consistent with prior cholecystectomy.The bones of the abdomen and pelvis are unremarkable.The lung bases are clear.[id number] [facility] Chest 1 Pxyvxigt0632-04-11 20:01:11EXAMINATION: XR CHEST 1 PORTABLE CLINICAL HISTORY: ED patient COMPARISON: Single chest from 01/15/2013 IMPRESSION: An AP radiograph of the chest was submitted for interpretation. The lungs are clear. The mediastinal contours and cardiac silhouette are unchanged and unremarkable. The bones are unremark able. [facility]-[id number] Interface, Radiology Results Incoming 11/30/2020 3:04 PM CDT EXAMINATION: XR CHEST 1 PORTABLECLINICAL HISTORY: EDpatientCOMPARISON: Single chest from 01/15/2013IMPRESSION:An AP radiograph of the chest was submitted for interpretation.The lungs are clear.The mediastinal contours and cardiac silhouette are unchanged and unremarkable.The bones are unremarkable. [id number] HospitalAMYLASE AND LIPASE *WW*2020-11-30 06:05:00 Test Item Value Reference Range Interpretation Comments AMYLASE (test code = 10A) 64 U/L 28-100 LIPASE (test code = 60A) 223 IU/L 73-393 COMPREHENSIVE METABOLIC HARRISON *WW*2020-11-30 06:05:00 Test Item Value Reference Range Interpretation [...] as normal/abnormal . GFR 115 See_Comment [Automated MONTENEGRIN (test mL/min/1.73m\\S\\2 message] The code = GFRAA) [...] 60A) 223 IU/L 73-393 CBC (INCLUDES AUTOMATED DIFFERENTIAL)*[id number] 05:53:00 Test Item Value Reference Range Interpretation [...] as normal/abnormal . GFR 103 See_Comment [Automated MONTENEGRIN (test mL/min/1.73m\\S\\2 message] The code = GFRAA) [...] 8.3-9.5 L = 09D) CBC (INCLUDES AUTOMATED DIFFERENTIAL)*[id number] 05:21:00 Test Item Value Reference Range Interpretation [...] CT ABDOMEN AND PELVIS WITH CONTRAST*WW*2020-11-29 00:55:01 [facility] : 1980 Sex: FCT abdomen and pelvis without contrastLocation Code: [id number] HISTORY: Abdominal painCOMPARISON: NoneTechnique: Helical CT of [...] Darin Ribeiro MD 11/29/2020 12:55 AM CDT -WvW (RAPID ANTIGEN) WW2020-11-28 23:52:00 Test Item Value Reference Range Interpretation Comments SARS-CoV (ANTIGEN) NEGATIVE NEGATIVE (test code = COVAG) COVID AG (test This test has been code = COVAGC) marketed under the FDA Emergency Use Authorization (EUA) to meet challenges of the COVID-19 pandemic. The validation standards normally enforced by the FDA and the [employer] of the [employer] [place] [employer] (CAP) are more stringent than those [...] normal/abnormal . GFR 77 See_Comment L [Automated MONTENEGRIN (test mL/min/1.73m\\S\\2 message] The code = GFRAA) system which generated this result transmit abdias reference range : >=90. The reference range was not used to interpret this result as normal/abnormal . EGFR (test code = eGFR BY EGFR) CKD-EPI CALCULATION IS NOT RECOMMENDED FOR PATIENTS UNDER 18 YEARS OF AGE. BUN/CREA (test 13 12-20 code = BCR) CALCIUM (test code 8.8 [...] this result as normal/abnormal . CARDIAC PROFILE *WW*2020-11-28 22:09:00 Test Item Value Reference Range Interpretation [...] Order Code is ANTI-XA CBC (INCLUDES AUTOMATED DIFFERENTIAL)*[id number] 21:53:00 Test Item Value Reference Range Interpretation [...] MORPH (test code = NORMAL WRBCMOR) URINALYSIS *WW*2020-11-28 21:53:00 Test Item Value Reference Range Interpretation [...] code = PGU) NEGATIVE NEGATIVE DRUGS OF [id number] 14:41:00 Test Item Value Reference Range Interpretation [...] 200 ng/mL Opiates 2000 ng/mL URINALYSIS WITH [id number] 14:29:00 Test Item Value Reference Range Interpretation [...] UR (test code = USPERM) /HPF NONE [id number] 10:25:00 Test Item Value Reference Range Interpretation Comments SALICYLATE (test code = 94B) 3.0 mg/dL 2.8-20.0 [id number] 10:11:00 Test Item Value Reference Range Interpretation [...] the FDA and the College of the [employer] (CAP) are more stringent than those required for this test. Therefore, the result should be interpreted with caution and close attention to other clinical and epidemiological data AMMONIA [id number] 09:47:00 Test Item Value Reference Range Interpretation Comments AMMONIA (test code = 54A) <10 umol/L 11-32 L LIVER [id number] 09:41:00 Test Item Value Reference Range Interpretation [...] = 31A) 19 IU/L <=78 COMPREHENSIVE METABOLIC [id number] 09:39:00 Test Item Value Reference Range Interpretation [...] = 31A) 19 IU/L <=78 AMYLASE AND [id number] 09:39:00 Test Item Value Reference Range Interpretation Comments AMYLASE (test code = 10A) 36 U/L 28-100 LIPASE (test code = 60A) 84 IU/L 73-393 ALCOHOL BLOOD (ETOH)2020-07-11 09:34:00 Test Item Value Reference Range Interpretation Comments ETOH (test code = HALC) ETHANOL The result is to be used only for medical purposes ALCOHOL (test code = <10 mg/dL <=10 56A) CARDIAC [id number] 09:33:00 Test Item Value Reference Range Interpretation Comments TROPONIN I (test code = A84) <0.015 ng/mL 0.000-0.045 BASIC METABOLIC [id number] 09:30:00 Test Item Value Reference Range Interpretation [...] code = 8.9 mg/dL 8.3-9.5 09D) SERUM [id number] 09:28:00 Test Item Value Reference Range Interpretation [...] = RBCMOR) NORMAL - US TRANSVAGINAL NON [id number] 15:15:00 [facility] : 1980 Sex: F Patient Name: RHEA SPARKS Unit No: [id number] EXAMS: CPT CODE: [id number] [place] [address] EXAMINATION: - US TRANSVAGINAL NON OB. LOCATION: [...] MD; RAINA LIND Technologist: Shawn Lopez RDMS; [facility] TV1 SN [id number] Transcrpt Date/Tm/Trnsp: 06/23/2020 (1515) t.SDR.PR7 Orig Print D/T: S: 06/23/2020 (5175) [facility] NAME: RHEA SPARKS [address] [address] PHYS: UNDEFINED [place] [address] : 1980 AGE: 39 SEX: F LOC: YOGI PHONE #: [phone] EXAM DATE: 06/23/2020 STATUS: REG CLI FAX #: [phone] RADIOLOGY NO: PAGE 1 Signed ReportCARDIAC PROFILE [...] = USPERM) /HPF NONE CBC (INCLUDES AUTOMATED DIFFERENTIAL)*[id number] 17:36:00 Test Item Value Reference Range Interpretation [...] = NORMAL WRBCMOR) Panel Description: Vaginitis/Vaginosis, DNA [id number] 19:47:00 Test Item Value Reference Range Interpretation Comments Ann species (test code = Negative Negative 37195-9) Gardnerella vaginalis (test code = Negative Negative 6410-5) Trichomonas vaginalis (test code = Positive Negative A 6568-0) [facility] Description: Vaginitis/Vaginosis, DNA [id number] 19:47:00 Test Item Value Reference Range Interpretation Comments Ann species (test code = Negative Negative 43491-7) Gardnerella vaginalis (test code = Negative Negative 6410-5) Trichomonas vaginalis (test code = Positive Negative A 6568-0) [facility] Description: Vaginitis/Vaginosis, DNA [id number] 19:47:00 Test Item Value Reference Range Interpretation Comments Ann species (test code = Negative Negative 58573-4) Gardnerella vaginalis (test code = Negative Negative 6410-5) Trichomonas vaginalis (test code = Positive Negative A 6568-0) [facility] Description: Vaginitis/Vaginosis, DNA [id number] 19:47:00 Test Item Value Reference Range Interpretation Comments Ann species (test code = Negative Negative 62893-4) Gardnerella vaginalis (test code = Negative Negative 6410-5) Trichomonas vaginalis (test code = Positive Negative A 6568-0) [facility] Description: Vaginitis/Vaginosis, DNA [id number] 19:47:00 Test Item Value Reference Range Interpretation Comments Ann species (test code = Negative Negative 26989-5) Gardnerella vaginalis (test code = Negative Negative 6410-5) Trichomonas vaginalis (test code = Positive Negative A 6568-0) [facility] + automated [id number] 17:03:00 Test Item Value Reference Range Interpretation Comments WBC (test code = 6690-2) 11.8 See_Comment H [A utomated message] The system iRates generated this result transmitted ref erence range: 4.0 - 10 .0 K/L. The refe rence range was not u sed to interpret this result as normal/abnor mal. RBC (test code = 789-8) 4.62 See_Comment [Au tomated message] The system iRates generated this result transmitted ref erence range: 4.00 - 5 .00 M/L. The refe rence range was not u sed to interpret this result as normal/abnor mal. MCHC (test code = 786-4) 33.0 See_Comment [A utomated message] The system iRates generated this result transmitted ref erence range: [...] See_Comment [Aut omated message] 777-3) The system iRates generated this result transmitted ref erence range: 150 - 43 0 K/CU MM. The referen ce range was not u sed to interpret this result as normal/abnor mal. MPV (test code = 12.3 fL 6-11.5 H 36135-1) nRBC (test code = 413) 0 See_Comment [Aut omated message] The system iRates generated this result transmitted ref erence range: [...] H [Aut omated message] 670) The system iRates generated this result transmitted ref erence range: 1.80 - 8 .00 K/L. The refe rence range was not u sed to interpret this result as normal/abnor mal. # Lymphs (test code = 1.03 See_Comment L [Auto mated message] 414) The system iRates generated this result transmitted ref erence range: 1.48 - 4 .50 K/L. The refe rence range was not u sed to interpret this result as normal/abnor mal. # Monos (test code = 0.06 See_Comment [Autom ated message] 415) The system iRates generated this result transmitted ref erence range: 0.00 - 1 .30 K/L. The refe rence range was not u sed to interpret this result as normal/abnor mal. # Eos (test code = 416) 0.00 See_Comment [Au tomated message] The system iRates generated this result transmitted ref erence range: 0.00 - 0 .50 K/L. The refe rence range was not u sed to interpret this result as normal/abnor mal. # Baso (test code = 417) 0.02 See_Comment [A utomated message] The system iRates generated this result transmitted ref erence range: 0.00 - 0 .20 K/L. The refe rence range was not u sed to interpret this result as normal/abnor mal. Immature 0 % 0-0 Granulocytes-Relative (test code = 2801) Lab Interpretation (test Abnormal code = 67183-7) [facility] W/PLT COUNT & AUTO [id number] 17:03:00 Test Item Value Reference Range Interpretation [...] code = 2801) Urinalysis with Microscopic If Wisbcmtqc7612-27-52 16:51:00 Test Item Value Reference Range Interpretation Comments Color, UA (test code = 5778-6) Yellow Clarity, UA (test code = 5767-9) Clear Specific [place], UA (test code = 1.015 1.001-1.035 5811-5) pH, UA (test code = 5803-2) 8.5 5.0-8.0 H Protein, UA (test code = 89067-7) Negative Negative Glucose, UA (test code = 365) Negative Negative Ketones, UA (test code = 2514-8) Negative Negative Bilirubin, UA (test code = 69286-3) Negative Negative Blood, UA (test code = 05949-1) Negative Negative Nitrite, UA (test code = 5802-4) Negative Negative Leukocytes, UA (test code = 5799-2) Negative Negative Urobilinogen, UA (test code = 0.2 mg/dL 0.2-1 43846-1) Specimen Source (test code = 2795) Lab Interpretation (test code = Abnormal 09036-5) [facility] [id number] 16:51:00 Test Item Value Reference Range Interpretation [...] 463) SOURCE(BEAKER) (test code = 2795) CT, OTXRNZQ1167-66-20 15:59:00Reason for exam:->EMESISReason for exam:- >Generalized abdominal [...] MDReport Verified Date/Time: 04/03/2020 15:59:20 Reading Location: [facility] Diagnostic Imaging Reading Room - [place] [address] Electronically signed by: Doug MATHEWS 04/03/2020 03:59 PMCT abdomen pelvis with IV iwovyxls4716-81-10 15:59:00Interface, External Ris In - 04/03/2020 4:01 [...] MDReport Verified Date/Time: 04/03/2020 15:59:20 Reading Location: [facility] Diagnostic Imaging Reading Room - [place] [address] [facility] Comprehensive metabolic [id number] 15:24:00 Test Item Value Reference Range Interpretation Comments Protein, Total (test 7.6 See_Comment [Autom ated code = 2885-2) message] The system which generated this result transmit abdias reference range : 6.0 - 8.5 gm/dL . The reference range was not u sed to interpret th is result as normal/abnormal . Albumin (test code = 4.3 g/dL 3.5-5 13390-6) Alkaline Phosphatase 56 U/L 30-115 (test code = 6768-6) Total Bilirubin (test 0.3 mg/dL 0.1-1.2 code = 1974-2) Sodium (test code = 138 meq/L 765-699 7339-2) Potassium (test code 3.8 meq/L 3.6-5.5 = 2823-3) Chloride (test code = 106 meq/L 98-106 2075-0) CO2 (test code = 18 meq/L 20-29 L 8-9) BUN (test code = 7 mg/dL 10-26 L 3094-0) Creatinine (test code 0.93 mg/dL 0.5-1.2 = 2160-0) Glucose (test code = 129 mg/dL 70-110 H 2345-7) Calcium (test code = 9.2 mg/dL 8.5-10.5 66036-4) AST (test code = 17 U/L 5-40 1920-8) ALT (test code = 11 U/L 5-50 1742-6) EGFR (test code = 67 mL/min/1.73 [place] [address]-4) NOT ACCURATE CREATININE CLEARANCE IN PREDICTING GLOMERULAR FILTRATION RATE . ESTIMATED GFR I S NOT APPLICABLE FOR DIALYSIS PATIEN TSGuerda LEXA (test code = LEXA) Reconciliation Specialist ID - [id number] Lab Interpretation Abnormal (test code = 15565-0) [facility] [id number] 15:24:00 Test Item Value Reference Range Interpretation [...] S NOT APPLICABLE FOR DIALYSIS PATIEN TS. Reconciliation Specialist ID - [id number] METABOLIC [id number] 18:24:00 Test Item Value Reference Range Interpretation [...] (test code = 31A) 44 IU/L <=78 [id number] 18:24:00 Test Item Value Reference Range Interpretation Comments AMYLASE (test code = 10A) 42 U/L 28-100 LIPASE [id number] 18:24:00 Test Item Value Reference Range Interpretation Comments LIPASE (test code = 60A) 58 IU/L 73-393 L URINALYSIS WITH [id number] 18:16:00 Test Item Value Reference Range Interpretation [...] MORPH (test code = RBCMOR) NORMAL URINE [id number] 18:04:00 Test Item Value Reference Range Interpretation Comments PREG UR (test code = PGU) NEGATIVE NEGATIVE Panel Description: Pathology Bjnuwp0150-23-10 16:37:00 Test Item Value Reference Range Interpretation Comments MATER (test code = Comment Material submitted: 53916-2) .endometrium - EMB

Pe rformed by:
Mery Donovan (JAIR)

FDIAG (test code = Comment 17264-2) *Diagnosis:E ndometrium, bio psy:- Secretory endom etrium.- Negative for at ypical hyperplasia or malignancy..[facility] 08/27/2019 1532 Local
< br/>Performed by:
Mery Donovan (JAIR)

SIGNED (test code = Comment Electron ically signed: 85674-5) .Sofy estrella MD, Pathologist<br/ >
Perfor med by:
Quinn Donovan (JAIR)

DIANE (test code = Comment Amalia de scription: .1 81339-9) Container, form kanika-filled, labeled with pa tient identification. EMB:Received in formalin is a 3.3 x 3.0 x 0.5 aggregate of mucus and softtissue. The specimen is mireya tered and entirely submit abdias in N1qgumfumj./[facility] 08/26/2019 0649 Local

Performed by:
Mery Donovan ()

MICROD (test code = Comment Microsco pic: .Microscopic 88679-7) examination performed.

Perform ed by:
[facility] ()

CPT (test code = Comment CPT 04857-4) .788863

Performed by:
Mery Donovan ()

[facility] Description: Pathology Lkdzke2959-92-48 16:37:00 Test Item Value Reference Range Interpretation Comments MATER (test code = Comment Material submitted: 14304-1) .endometrium - EMB

Pe rformed by:
Mery Donovan ()

FDIAG (test code = Comment 91830-3) *Diagnosis:E ndometrium, bio psy:- Secretory endom etrium.- Negative for at ypical hyperplasia or malignancy..[facility] 08/27/2019 1532 Local
< br/>Performed by:
Mery Donovan ()

SIGNED (test code = Comment Electron ically signed: 81893-8) .Sofy estrella MD, Pathologist<br/ >
Perfor med by:
[facility] ()

DIANE (test code = Comment Gross de scription: .1 09252-0) Container, form kanika-filled, labeled with pa tient identification. EMB:Received in formalin is a 3.3 x 3.0 x 0.5 aggregate of mucus and softtissue. The specimen is mireya tered and entirely submit abdias in L2joxqhygf./[facility] 08/26/2019 0649 Local

Performed by:
Mery Donovan ()

MICROD (test code = Comment Microsco pic: .Microscopic 35174-7) examination performed.

Perform ed by:
[facility] ()

CPT (test code = Comment CPT 78513-5) .115122

Performed by:
Mery Donovan ()

[facility] Description: Pathology [id number] 16:37:00 Test Item Value Reference Range Interpretation Comments MATER (test code = Comment Material submitted: 40007-2) .endometrium - EMB

Pe rformed by:
Mery Donovan ()

FDIAG (test code = Comment 54045-0) *Diagnosis:E ndometrium, bio psy:- Secretory endom etrium.- Negative for at ypical hyperplasia or malignancy..[facility] 08/27/2019 1532 Local
< br/>Performed by:
Mery Donovan ()

SIGNED (test code = Comment Electron ically signed: 46211-0) .Sofy estrella MD, Pathologist<br/ >
Perfor med by:
[facility] ()

DIANE (test code = Comment Amalia de scription: .1 67527-1) Container, form kanika-filled, labeled with pa tient identification. EMB:Received in formalin is a 3.3 x 3.0 x 0.5 aggregate of mucus and softtissue. The specimen is mireya tered and entirely submit abdias in T0tpzfjoyj./[facility] 08/26/2019 0649 Local

Performed by:
Mery Donovan ()

MICROD (test code = Comment Microsco pic: .Microscopic 00533-4) examination performed.

Perform ed by:
[facility] ()

CPT (test code = Comment CPT 05999-3) .031638

Performed by:
Mery Donovan [facility])

[facility] Description: Pathology Lrvcyg2064-53-04 16:37:00 Test Item Value Reference Range Interpretation Comments MATER (test code = Comment Material submitted: 40641-4) .endometrium - EMB

Pe rformed by:
Mery Donovan ()

FDIAG (test code = Comment 47888-3) *Diagnosis:E ndometrium, bio psy:- Secretory endom etrium.- Negative for at ypical hyperplasia or malignancy..[facility] 08/27/2019 1532 Local
< br/>Performed by:
[facility] ()

SIGNED (test code = Comment Electron ically signed: 82688-4) .Sofy estrella MD, Pathologist<br/ >
Perfor med by:
[facility] ()

DIANE (test code = Comment Amalia de scription: .1 90513-7) Container, form kanika-filled, labeled with pa tient identification. EMB:Received in formalin is a 3.3 x 3.0 x 0.5 aggregate of mucus and softtissue. The specimen is mireya tered and entirely submit abdias in A7yalqbwok./[facility] 08/26/2019 0649 Local

[facility]:
[facility] ()

MICROD (test code = Comment Microsco pic: .Microscopic 76083-1) examination performed.

Perform ed by:
[facility] ()

CPT (test code = Comment CPT 95144-0) .592525

Performed by:
[facility] ()

[facility] Description: Pathology Nmsmth7076-71-60 16:37:00 Test Item Value Reference Range Interpretation Comments MATER (test code = Comment Material submitted: 11433-3) .endometrium - EMB

Pe rformed by:
[facility] ()

FDIAG (test code = Comment 24691-0) *Diagnosis:E ndometrium, bio psy:- Secretory endom etrium.- Negative for at ypical hyperplasia or malignancy..[facility] 08/27/2019 1532 Local
< br/>Performed by:
Mery Donovan ()

SIGNED (test code = Comment Electron ically signed: 60087-7) .Sofy estrella MD, Pathologist<br/ >
Perfor med by:
[facility] ()

DIANE (test code = Comment Amalia de scription: .1 13990-7) Container, form kanika-filled, labeled with pa tient identification. EMB:Received in formalin is a 3.3 x 3.0 x 0.5 aggregate of mucus and softtissue. The specimen is mireya tered and entirely submit abdias in N1doyviaij./[facility] 08/26/2019 0649 Local

Performed by:
Mery Donovan ()

MICROD (test code = Comment Microsco pic: .Microscopic 84881-4) examination performed.

Perform ed by:
[facility] ()

CPT (test code = Comment CPT 52664-6) .610266

Performed by:
Mery Donovan ()

[facility] Description: Pathology Lyeipo9139-29-10 16:37:00 Test Item Value Reference Range Interpretation Comments MATER (test code = Comment Material submitted: 54024-3) .endometrium - EMB

Pe rformed by:
Mery Donovan ()

FDIAG (test code = Comment 67369-5) *Diagnosis:E ndometrium, bio psy:- Secretory endom etrium.- Negative for at ypical hyperplasia or malignancy..[facility] 08/27/2019 1532 Local
< br/>Performed by:
Mery Donovan ()

SIGNED (test code = Comment Electron ically signed: 22314-7) .Sofy estrella MD, Pathologist<br/ >
Perfor med by:
Quinn Donovan ()

DIANE (test code = Comment Amalia de scription: .1 95843-0) Container, form kanika-filled, labeled with pa tient identification. EMB:Received in formalin is a 3.3 x 3.0 x 0.5 aggregate of mucus and softtissue. The specimen is mireya tered and entirely submit abdias in Y0ovtplnjy./SLC 08/26/2019 0649 Local

Performed by:
Mery Donovan ()

MICROD (test code = Comment Microsco pic: .Microscopic 92218-2) examination performed.

Perform ed by:
[facility] orjustino Donovan ()

CPT (test code = Comment CPT 87888-0) .157853

Performed by:
[facility] ()

AccessHealthDRUGS OF ABUSE *WW*2019-08-23 14:22:00 Test [...] = 01B) 3.9 mmol/L 3.6-5.1 Panel Description: IGP,CtNg,AptimaHPV,rfx16/18,373296-30-41 12:58:00 Test Item Value Reference Range Interpretation Comments CICD10 (test code Comment N93.9Z68.3 0

Perfor = 77859-0) med by:
[facility] [place] ()

PERFOR (test code Comment Neftali Garcia ay, = 70449-3) Cytotechnologis t (ASCP)
<br/ >Performed by:
[facility] [place] ()

IGLBP (test code = Comment This [place] id based 84424-4) ThinPrep(R) pap test was screened with t heuse of an image guided system.

Performed by:
[facility] [place] ()

HPV Aptima (test Negative Negative This nuclei c acid code = 92739-6) amplificatio n test detects fourteen high-r iskHPV types (16,18,31,33,35 ,39,45,51,52 ,56,58,59,66,68 ) withoutdifferen tiation.<br/ >
Performed by:
[facility] [place] ()

Chlamydia, Nuc. Negative Negative Acid Amp (test code = 98421-7) Gonococcus, Nuc. Negative Negative Acid Amp (test code = 24873-2) AccessHealthPanel Description: IGP,CtNg,AptimaHPV,rfx16/18,105806-69-46 12:58:00 Test Item Value Reference Range Interpretation Comments CICD10 (test code Comment N93.9Z68.3 0

Perfor = 03022-8) med by:
[facility] [place] ()

PERFOR (test code Comment Neftali Garcia jose, = 75953-4) Cytotechnologis t (ASCP)
<br/ >Performed by:
[facility] [place] ()

IGLBP (test code = Comment [place] based 89620-6) ThinPrep(R) pap test was screened with t heuse of an image guided system.

Performed by:
[facility] [place] ()

HPV Aptima (test Negative Negative This nuclei c acid code = 63076-9) amplificatio n test detects fourteen high-r iskHPV types (16,18,31,33,35 ,39,45,51,52 ,56,58,59,66,68 ) withoutdifferen tiation.<br/ >
Performed [facility]:
[facility] ()

Chlamydia, Nuc. Negative Negative Acid Amp (test code = 12050-3) Gonococcus, Nuc. Negative Negative Acid Amp (test code = 58224-2) AccessHealthPanel Description: IGP,CtNg,AptimaHPV,rfx16/18,121794-02-21 12:58:00 Test Item Value Reference Range Interpretation Comments CICD10 (test code Comment N93.9Z68.3 0

Perfor = 06148-2) med by:
[facility] ()

PERFOR (test code Comment Neftali garcia, = 15990-5) Cytotechnologis t (ASCP)
<br/ >Performed by:
[facility] ()

IGLBP (test code = Comment [place] based 05148-6) ThinPrep(R) pap test was screened with t heuse of an image guided system.

Performed by:
[facility] [place] ()

HPV Aptima (test Negative Negative This nuclei c acid code = 23371-8) amplificatio n test detects fourteen high-r iskHPV types (16,18,31,33,35 ,39,45,51,52 ,56,58,59,66,68 ) withoutdifferen tiation.<br/ >
Performed by:
[facility] ()

Chlamydia, Nuc. Negative Negative Acid Amp (test code = 54681-0) Gonococcus, Nuc. Negative Negative Acid Amp (test code = 87298-2) AccessHealthPanel Description: IGP,CtNg,AptimaHPV,rfx16/18, 12:58:00 Test Item Value Reference Range Interpretation Comments CICD10 (test code Comment N93.9Z68.3 0

Perfor = 01491-7) med by:
[facility] [place] ()

PERFOR (test code Comment Neftali Jose garcia, = 65841-4) Cytotechnologis t (ASCP)
<br/ >Performed by:
[facility] ()

IGLBP (test code = Comment This [place] id based 94106-3) ThinPrep(R) pap test was screened with t heuse of an image guided system.

Performed by:
[facility] [place] ()

HPV Aptima (test Negative Negative This nuclei c acid code = 79206-4) amplificatio n test detects fourteen high-r iskHPV types (16,18,31,33,35 ,39,45,51,52 ,56,58,59,66,68 ) withoutdifferen tiation.<br/ >
Performed by:
[facility] [place] ()

Chlamydia, Nuc. Negative Negative Acid Amp (test code = 18729-2) Gonococcus, Nuc. Negative Negative Acid Amp (test code = 24173-3) Access[facility]Panel Description: IGP,CtNg,AptimaHPV,rfx16/18, 12:58:00 Test Item Value Reference Range Interpretation Comments CICD10 (test code Comment N93.9Z68.3 0

Perfor = 03383-2) med by:
[facility] [place] ()

PERFOR (test code Comment Neftali Garcia ay, = 94194-5) Cytotechnologis t (ASCP)
<br/ >Performed by:
[facility] ()

IGLBP (test code = Comment This [place] id based 19784-7) ThinPrep(R) pap test was screened with t heuse of an image guided system.

Performed by:
[facility] ()

HPV Aptima (test Negative Negative This nuclei c acid code = 54713-9) amplificatio n test detects fourteen high-r iskHPV types (16,18,31,33,35 ,39,45,51,52 ,56,58,59,66,68 ) withoutdifferen tiation.<br/ >
Performed by:
[facility])

Chlamydia, Nuc. Negative Negative Acid Amp (test code = 89271-8) Gonococcus, Nuc. Negative Negative Acid Amp (test code = 27225-8) Access[facility]Panel Description: IGP,CtNg,AptimaHPV,rfx16/18,327764-71-78 12:58:00 Test Item Value Reference Range Interpretation Comments CICD10 (test code Comment N93.9Z68.3 0

Perfor = 36478-8) med by:
[facility] ()

PERFOR (test code Comment Neftali Garcia jose, = 63545-5) Cytotechnologis t (ASCP)
<br/ >Performed by:
[facility])

IGLBP (test code = Comment This liqu id based 82613-1) ThinPrep(R) pap test was screened with t heuse of an image guided system.

Performed by:
[facility] ()

HPV Aptima (test Negative Negative This nuclei c acid code = 46282-4) amplificatio n test detects fourteen high-r iskHPV types (16,18,31,33,35 ,39,45,51,52 ,56,58,59,66,68 ) withoutdifferen tiation.<br/ >
Performed by:
[facility] [place] ()

Chlamydia, Nuc. Negative Negative Acid Amp (test code = 87607-7) Gonococcus, Nuc. Negative Negative Acid Amp (test code = 47913-5) [facility]- CT HD/BR W W/O [id number] 10:09:00 Patient Name: RHEA SPARKS Unit No: [id number] EXAMS: CPT CODE: [id number] CT HD/BR W W/O CONT 33315 EXAM: CT Head with and without contrast Location code:J9 HISTORY: Nausea COMPARISON: None available. TECHNIQUE: Multiple transaxial images of the brain were obtained with and without intravenous contrast using 5mm slices. CT imaging performed at this location utilizes radiation dose optimization techniques which include one or more of the following: -Automated exposure control -Adjustment of the mA and/or kV according to patient size -Use of iterative reconstruction technique CT RadiationDose DLP mGy-cm FINDINGS: No abnormal enhancement. There [...] RT(R) CTDI: DLP: Trnscrpt: 07/28/2019 (1009) t.SDR.RR16 [facility] NAME: RHEA SPARKS [address] [facility] [address] PHYS: UNDEFINED - [place] [address] : 1980 AGE: 38 SEX: F LOC: CharlieZCTS PHONE #: [phone] EXAM DATE: 07/28/2019 STATUS: REG CLI FAX #: [phone] RAD #: D/C DT PAGE 1 Signed Report Patient Name: RHEA SPARKS Unit No: [id number] EXAMS: CPT CODE: [id number] CT HD/BR W W/O CONT 83197 (Continued) Orig Print D/T: S: 07/28/2019 (1012) [facility] NAME: RHEA SPARKS [address] [facility] [address] PHYS: UNDEFINED - [place] [address] : 1980 AGE: 38 SEX: F LOC: EugenieCTS PHONE #: [phone] EXAM DATE: 07/28/2019 STATUS: REG CLI FAX #: [phone] RAD #: D/C DT PAGE 2 Signed ReportPanel Description: Thyrotropin [Units/volume] in Serum or Plasma by Detection limit <= 0.05 mIU/E3466-25-66 06:37:00 Test Item Value Reference Range Interpretation Comments TSH (test code = 99501-2) 1.900 uIU/mL 0.450-4.500 AccessHealthPanel Description: Thyrotropin [Units/volume] in Serum or Plasma by Detection limit <= 0.05 mIU/X1091-32-27 06:37:00 Test Item Value Reference Range Interpretation Comments TSH (test code = 85910-0) 1.900 uIU/mL 0.450-4.500 [facility]Panel Description: Thyrotropin [Units/volume] in Serum or Plasma by Detection limit <= 0.05 mIU/U6947-62-67 06:37:00 Test Item Value Reference Range Interpretation Comments TSH (test code = 25271-0) 1.900 uIU/mL 0.450-4.500 [facility] Description: Thyrotropin [Units/volume] in Serum or Plasma by Detection limit <= 0.05 mIU/H5519-16-95 06:37:00 Test Item Value Reference Range Interpretation Comments TSH (test code = 87786-0) 1.900 uIU/mL 0.450-4.500 [facility] Description: Thyrotropin [Units/volume] in Serum or Plasma by Detection limit <= 0.05 mIU/R3662-73-52 06:37:00 Test Item Value Reference Range Interpretation Comments TSH (test code = 02999-4) 1.900 uIU/mL 0.450-4.500 [facility] Description: Thyrotropin [Units/volume] in Serum or Plasma by Detection limit <= 0.05 mIU/B4918-72-63 06:37:00 Test Item Value Reference Range Interpretation Comments TSH (test code = 22971-1) 1.900 uIU/mL 0.450-4.500 Access[facility]Panel Description: CBC With Differential/Rdpewdnx7702-95-92 06:10:00 Test Item Value Reference Range Interpretation [...] - 15.4

P erf ormed by:
[facility] ([place])

Platelets (test code = 315 x10E3/uL [...] 0 % Not Estab. (test code = 50688-2) Immature Grans (Abs) 0.0 x10E3/uL 0.0-0.1 (test code = 71190-4) NRBC (test code = 18406-6) Hematology Comments: (test code = 24217-5) Access[facility]Panel Description: CBC With Differential/Dqzagtjz3892-47-45 06:10:00 Test Item Value Reference Range Interpretation [...] 0 % Not Estab. (test code = 54805-1) Immature Grans (Abs) 0.0 x10E3/uL 0.0-0.1 (test code = 97726-5) NRBC (test code = 81783-6) Hematology Comments: (test code = 06482-6) [facility] Description: CBC With Differential/Kayyvqzy9006-11-55 06:10:00 Test Item Value Reference Range Interpretation [...] - 15.4

P erf ormed by:
[facility] ([place])

Platelets (test code = 315 x10E3/uL [...] 0 % Not Estab. (test code = 03258-8) Immature Grans (Abs) 0.0 x10E3/uL 0.0-0.1 (test code = 39048-1) NRBC (test code = 61354-4) Hematology Comments: (test code = 53220-3) [facility] Description: CBC With Differential/Uuevrmvv2690-44-14 06:10:00 Test Item Value Reference Range Interpretation [...] - 15.4

P erf ormed by:
[facility] ([place])

Platelets (test code = 315 x10E3/uL [...] 0 % Not Estab. (test code = 83729-9) Immature Grans (Abs) 0.0 x10E3/uL 0.0-0.1 (test code = 69553-3) NRBC (test code = 06853-9) Hematology Comments: (test code = 53256-3) [facility] Description: CBC With Differential/Yddeqhdx7802-87-15 06:10:00 Test Item Value Reference Range Interpretation [...] - 15.4

P erf ormed by:
[facility] ([place])

Platelets (test code = 315 x10E3/uL [...] 0 % Not Estab. (test code = 93276-0) Immature Grans (Abs) 0.0 x10E3/uL 0.0-0.1 (test code = 05050-3) NRBC (test code = 83363-8) Hematology Comments: (test code = 84491-6) [facility] Description: CBC With Differential/Ficygfuu7289-42-24 06:10:00 Test Item Value Reference Range Interpretation [...] 0 % Not Estab. (test code = 00502-4) Immature Grans (Abs) 0.0 x10E3/uL 0.0-0.1 (test code = 38674-3) NRBC (test code = 79996-9) Hematology Comments: (test code = 92925-2) [facility] Description: FSH and [id number] 05:02:00 Test Item Value Reference Range Interpretation Comments LH (test code = 5.8 mIU/mL Adult Femal e: Follicular 92580-6) phase 2.4 - 12. 6 Ovulation phase 14.0 - 95 .6 Luteal phase 1.0 - 11. 4 Postmenopausal 7.7 - 58.5

P erformed by:
Mery Donovan ()

FSH (test code = 3.3 mIU/mL Adult Fema le: Follicular 59581-4) phase 3.5 - 12. 5 Ovulation phase 4.7 - 21. 5 Luteal phase 1.7 - 7.7 Postmenopausal 25.8 - 134.8

Performed by:
Mery Donovan ()

[facility] Description: FSH and [id number] 05:02:00 Test Item Value Reference Range Interpretation Comments LH (test code = 5.8 mIU/mL Adult Femal e: Follicular 46333-5) phase 2.4 - 12. 6 Ovulation phase 14.0 - 95.6 Luteal pha se 1.0 - 11.4 Postmenopa usal 7.7 - 58.5

P erformed by:
[facility] ()

FSH (test code = 3.3 mIU/mL Adult Fema le: Follicular 81678-5) phase 3.5 - 12. 5 Ovulation phase 4.7 - 21. 5 Luteal phase 1.7 - 7.7 Postmenopausal 25.8 - 134.8

Performed by:
[facility] ()

[facility] Description: FSH and TV4337-15-01 05:02:00 Test Item Value Reference Range Interpretation Comments LH (test code = 5.8 mIU/mL Adult Femal e: Follicular 27698-7) phase 2.4 - 12. 6 Ovulation phase 14.0 - 95 .6 Luteal phase 1.0 - 11. 4 Postmenopausal 7.7 - 58.5

P erformed by:
[facility] ()

FSH (test code = 3.3 mIU/mL Adult Fema le: Follicular 32473-0) phase 3.5 - 12. 5 Ovulation phase 4.7 - 21.5 Luteal phase 1. 7 - 7.7 Postmenopausal 25.8 - 134.8

Performed by:
[facility] ()

[facility] Description: FSH and [id number] 05:02:00 Test Item Value Reference Range Interpretation Comments LH (test code = 5.8 mIU/mL Adult Fema le: Follicular 23775-5) phase 2.4 - 12. 6 Ovulation phase 14.0 - 95 .6 Luteal phase 1.0 - 11. 4 Postmenopausal 7.7 - 58.5

P erformed by:
[facility] ()

FSH (test code = 3.3 mIU/mL Adult Fema le: Follicular 30885-8) phase 3.5 - 12. 5 Ovulation phase 4.7 - 21. 5 Luteal phase 1.7 - 7.7 Postmenopausal 25.8 - 134.8

Performed by:
[facility] ()

[facility] Description: FSH and [id number] 05:02:00 Test Item Value Reference Range Interpretation Comments LH (test code = 5.8 mIU/mL Adult Femal e: Follicular 33888-5) phase 2.4 - 12. 6 Ovulation phase 14.0 - 95 .6 Luteal phase 1.0 - 11. 4 Postmenopausal 7.7 - 58.5

P erformed by:
[facility] ()

FSH (test code = 3.3 mIU/mL Adult Fem smith: Follicular 02414-7) phase 3.5 - 12. 5 Ovulation phase 4.7 - 21. 5 Luteal phase 1.7 - 7.7 Postmenopausal 25.8 - 134.8

Performed by:
[facility] ()

[facility] Description: FSH and [id number] 05:02:00 Test Item Value Reference Range Interpretation Comments LH (test code = 5.8 mIU/mL Adult Femal e: Follicular 60499-3) phase 2.4 - 12. 6 Ovulation phase 14.0 - 95 .6 Luteal phase 1.0 - 11. 4 Postmenopausal 7.7 - 58.5

P erformed by:
[facility] ()

FSH (test code = 3.3 mIU/mL Adult Fema le: Follicular 98924-5) phase 3.5 - 12. 5 Ovulation phase 4.7 - 21. 5 Luteal phase 1.7 - 7.7 Postmenopausal 25.8 - 134.8

Performed by:
[facility] ()

[facility] [id number] 10:06:00 Patient Name: RHEA SPARKS Unit No: [id number] EXAMS: CPT CODE: [id number] [place] [address] LOCATION: T18 EXAM: - US TRANSVAGINAL NON [...] Ramiro Lopez MD Technologist: Shawn Lopez RDMS; [facility] TV1 SN [id number] Transcrpt Date/Tm/Trnsp: 07/23/2019 (1006) t.SDR.JP19 Orig Print D/T: S: 07/23/2019 (1009) [facility] NAME: RHEA SPARKS [address] [address] PHYS: [place] [address] : 1980 AGE: 38 SEX: F LOC: YOGI PHONE #: [phone] EXAM DATE: 07/23/2019 STATUS: REG CLI FAX #: [phone] RADIOLOGY NO: PAGE 1 Signed Report- US PELVIS [id number] 10:06:00 Patient Name: RHEA SPARKS Unit No: [id number] EXAMS: CPT CODE: [id number] US PELVIS COMPLETE 11268 LOCATION: T18 EXAM: - US TRANSVAGINAL NON [...] MD; Ramiro Lopez MD Technologist: Shawn Lopez [facility] Transcrpt Date/Tm/Trnsp: 07/23/2019 (1006) t.SDR.JP19 Orig Print D/T: S: 07/23/2019(1009) [facility] NAME: RHEA SPARKS [address] [place] [address] PHYS: [place] [address] : 1980 AGE: 38 SEX: F : CharlieZUSN PHONE #: [phone] EXAM DATE: 07/23/2019 STATUS: REG CLI FAX #: [phone] RADIOLOGY NO: PAGE 1 Signed ReportTHYROID PANEL/SCREEN (TSH) *WW*2019-07-06 15:53:00 Test Item Value Reference Range Interpretation Comments TSH (test code = WTSH) 0.972 uIU/mL 0.358-3.740 CBC (INCLUDES AUTOMATED DIFFERENTIAL)*[id number] 15:26:00 Test Item Value Reference Range Interpretation [...] code = NORMAL WRBCMOR) CT FACIAL W/O ILXEURAR3510-91-31 09:30:07Maxillofacial CT without contrast.CLINICAL HISTORY: Severe right [...] VIEWS 2019-05-19 13:24:04Left shoulder, 3 viewsLocation Code: P6XAVQKIST HISTORY: Pain of left shoulder jointCOMMENTS: AP views in internal and external rotation along with a transscapularY view of the left shoulder were obtained. There is no acute fracture ormalalignment. The soft tissues are unremarkable.IMPRESSION: No acute abnormality.XR SHOULDER RIGHT 3 VIEWS 2019-05-19 12:47:21Right shoulder, 3 viewsLocation Code: Q7HDRFVAPN HISTORY: [id number]: Pain of right shoulder jointCOMMENTS: AP views in internal and external rotation along with a transscapularY view of the right shoulder were obtained. There is no acute fracture ormalalignment. The soft tissues are unremarkable.IMPRESSION: No acute abnormality.U/S PELVIS2019-05-14 13:18:25PELVIC ULTRASOUND:Location code: K2AZUSACLL HISTORY: Ovarian cystComparison: NoneTECHNIQUE: Transabdominal sonography of [...] 7.3 mg/dL 8.3-9.5 L CBC (INCLUDES AUTOMATED DIFFERENTIAL)*[id number] 05:43:00 Test Item Value Reference Range Interpretation [...] 7.6 mg/dL 8.3-9.5 L CBC (INCLUDES AUTOMATED DIFFERENTIAL)*[id number] 06:04:00 Test Item Value Reference Range Interpretation [...] follicular cyst with small fluid in the cpt-gw-szjfobhspdux to physiological follicular cyst rupture.URINALYSIS WITH MICRO [...] 31A) 126 IU/L <=78 H SERUM MONOCLONAL 2019-05-12 18:26:00 Test Item Value Reference Range Interpretation Comments PREG SRM (test code = PGS) NEGATIVE NEGATIVE CBC (INCLUDES AUTOMATED DIFFERENTIAL)*[id number] 18:23:00 Test Item Value Reference Range Interpretation [...] NORMAL WRBCMOR) CT ABDOMEN AND PELVIS WITH XSQDMTRB2245-05-01 18:23:30LOCATION: L98WOEY: CT ABDOMEN AND PELVIS WITH CONTRASTHISTORY: 86252558: Abdominal pain TECHNIQUE: Ax ial imaging of [...] stable chronic findings as above. COMPREHENSIVE METABOLIC [id number] 17:59:00 Test Item Value Reference Range Interpretation [...] (test code = 31A) 13 IU/L <=78 [id number] 17:59:00 Test Item Value Reference Range Interpretation Comments AMYLASE (test code = 10A) 43 U/L 28-100 TROPONIN [id number] 17:59:00 Test Item Value Reference Range Interpretation Comments TROPONIN I (test code = A84) <0.015 ng/mL 0.000-0.045 LIPASE [id number] 17:54:00 Test Item Value Reference Range Interpretation Comments LIPASE (test code = 60A) 66 IU/L 73-393 L URINALYSIS WITH [id number] 17:54:00 Test Item Value Reference Range Interpretation [...] = USPERM) /HPF NONE PRO TIME AND [id number] 17:51:00 Test Item Value Reference Range Interpretation [...] LMW Heparin. Order Code is ANTI-XA URINE [id number] 17:48:00 Test Item Value Reference Range Interpretation [...] code = RBCMOR) NORMAL CT STONE PROTOCOL [id number] 20:05:41CT abdomen and pelvis without IV contrast.Indication: Flank painLocation: Y77Xaxlnvvwfs: 12/05/2018Technique: CT images of the abdomen and [...] = 60A) 297 IU/L 73-393 COMPREHENSIVE METABOLIC [id number] 19:14:00 Test Item Value Reference Range Interpretation [...] code = 31A) 64 IU/L <=78 SERUM [id number] 19:06:00 Test Item Value Reference Range Interpretation Comments PREG SRM (test code = PGS) NEGATIVE NEGATIVE [id number] 19:02:00 Test Item Value Reference Range Interpretation [...] (test code = RBCMOR) NORMAL COMPREHENSIVE METABOLIC [id number] 15:21:00 Test Item Value Reference Range Interpretation [...] NOT APPLICABLE FOR DIALYSIS PATIEN TS. CT, [id number] 15:12:00Reason for exam:->ABDOMINAL PAINReason for exam:->RASHReason for [...] MDReport Verified Date/Time: 01/26/2019 15:12:35 Reading Location: [facility] C013Y CT Body Reading Room [id number] 15:09:00 Test Item Value Reference Range Interpretation Comments LIPASE (BEAKER) (test code = 749) 116 U/L 6-51 H [id number] 15:01:00 Test Item Value Reference Range Interpretation Comments AMYLASE (BEAKER) (test code = 349) 70 U/L 30-110 CBC W/PLT COUNT & AUTO [id number] 14:28:00 Test Item Value Reference Range Interpretation [...] (BEAKER) (test code = 2801) URINALYSIS W/ [id number] 13:55:00 Test Item Value Reference Range Interpretation [...] 1663) SOURCE(BEAKER) (test code = 2795) SCREEN, [id number] 13:54:00 Test Item Value Reference Range Interpretation Comments TEST URINE (BEAKER) (test Negative code = 583) TISSUE [id number] 14:40:00Surgical Pathology Report Case: [id number] Authorizing Provider: Dalila Boateng, Collected: 01/19/2019 1258 MD Ordering Location: [facility] PERIOPERATIVE Received: 01/19/2019 1325 SERVICES Pathol ogist: Ashley Laguerre MD Specimen: Gallbladder, Gall Bladder GALLBLADDER, CHOLECYSTECTOMY: - GALLBLADDER WITH MILD CHRONIC INFLAMMATIONMG/pl Signing Pathologist Direct Phone Line: [phone] signed by Ashley Laguerre MD on 01/20/2019 at 2:40 [id number] dyskinesi aGallbladder The specimen is received in fixative and designated as "gallbladder" and consists of a pink-madison cholecystectomy specimen (7.0 x 3.5 x 2.0 cm). The gallbladder is filled with green viscous bile. However, no gallstones are identified within the specimen or specimen container. The gallbladder mucosa is pink-madison and velvety with no discrete lesions identified. Press Tender sections of the gallbladder mucosa and cystic duct are submitted into A1.MG/pl Performed [facility], Department of Pathology, [address] [place] [address], [facility], Department of Pathology, [address] [place] [address], [facility], Department of [facility], [address] [place] [address], WULFU OF ABUSE 2018-12-28 08:16:00 Test Item Value [...] 200 ng/mL Opiates 2000 ng/mL COMPREHENSIVE METABOLIC [id number] 08:09:00 Test Item Value Reference Range Interpretation [...] (test code = RBCMOR) NORMAL URINALYSIS WITH [id number] 08:04:00 Test Item Value Reference Range Interpretation [...] code = USPERM) /HPF NONE AMYLASE AND [id number] 08:04:00 Test Item Value Reference Range Interpretation Comments AMYLASE (test code = 10A) 53 U/L 28-100 LIPASE (test code = 60A) 135 IU/L 73-393 ALCOHOL BLOOD (ETOH)2018-12-28 08:04:00 Test Item Value Reference Range Interpretation Comments ETOH (test code = HALC) ETHANOL The result is to be used only for medical purposes ALCOHOL (test code = <10 mg/dL <=10 56A) [id number] 08:01:00 Test Item Value Reference Range Interpretation Comments MAGNESIUM (test code = 48A) 2.3 mg/dL 1.8-2.4 SERUM [id number] 07:59:00 Test Item Value Reference Range Interpretation Comments PREG SRM (test code = PGS) NEGATIVE NEGATIVE GLUCOMETER GLUCOSE- LAB USE [id number] 07:31:00 Test Item Value Reference Range Interpretation Comments GLUCOMETER (test code = 102 mg/dL 70-100 H Mete r ID: GMG) [id number] tor: 9774 NAYLA RIAZ EN [id number] 10:50:00 Test Item Value Reference Range Interpretation Comments LIPASE (BEAKER) (test code = 749) 80 U/L 6-51 H COMPREHENSIVE METABOLIC [id number] 10:49:00 Test Item Value Reference Range Interpretation [...] S NOT APPLICABLE FOR DIALYSIS PATIEN TS. [id number] 10:41:00 Test Item Value Reference Range Interpretation Comments AMYLASE (BEAKER) (test code = 349) 111 U/L 30-110 H URINALYSIS W/ [id number] 10:33:00 Test Item Value Reference Range Interpretation [...] 1663) SOURCE(BEAKER) (test code = 2795) SCREEN, [id number] 10:29:00 Test Item Value Reference Range Interpretation Comments TEST URINE (BEAKER) (test Negative code = 583) CBC W/PLT COUNT & AUTO [id number] 10:24:00 Test Item Value Reference Range Interpretation [...] 2801) - MRI UP JNT W/O CONT [id number] 12:03:00 Patient Name: RHEA SPARKS Unit No: [id number] EXAMS: CPT CODE: [id number] MRI [place] JNT W/[place] [address] EXAM: - MRI UP JNT W/O CONT [...] (1203) SoCB5 Orig Print D/T: S: 12/07/2018 (1201) [facility] NAME: RHEA SPARKS [address] [facility] [address] PHYS: Shaq Martí[place] [address] : 1980 AGE: 37 SEX: F LOC: ALIYAHRI PHONE #: [phone] EXAM DATE: 12/07/2018 STATUS: REG CLI FAX #: [phone] RADIOLOGY NO: PAGE 1 Signed ReportURINE [id number] 08:58:00 Test Item Value Reference Range Interpretation Comments Culture Observations THREE OR MORE SPECIES (test code = COB1) OF BACTERIA ISOLATED. PROBABLE CONTAMINATION. Culture Observations IDENTIFICATION AND (test code = COB17) SUSCEPTIBILITY NOT INDICATED. RECOLLECTION RECOMMENDED CT STONE PROTOCOL [id number] 13:01:41CT ABDOMEN AND PELVIS WITHOUT CONTRAST, RENAL STONE PROTOCOL:Location code: [id number] HISTORY: Flank painCOMPARISON: 07/04/15TECHNIQUE: Helical CT of [...] bilateral nonobstructing nephrolithiasis since prior exam.AMYLASE AND [id number] 12:22:00 Test Item Value Reference Range Interpretation Comments AMYLASE (test code = 10A) 40 U/L 28-100 LIPASE (test code = 60A) 65 IU/L 73-393 L COMPREHENSIVE METABOLIC [id number] 12:22:00 Test Item Value Reference Range Interpretation [...] = 31A) 12 IU/L <=78 URINALYSIS WITH [id number] 12:18:00 Test Item Value Reference Range Interpretation [...] (test code = USPERM) /HPF NONE SERUM [id number] 12:08:00 Test Item Value Reference Range Interpretation [...] RBCMOR) NORMAL RAD, NASAL BONES, MIN 3 [id number] 14:05:00Reason for Exam:->Fractured noseFINAL REPORT Clinical Diagnosis: Fractured nose Comparison: No comparison Views: Three views of the nasal bones Report:There is no evidence of a fracture, dislocation or radiopaqueforeign body. There is no evidence of a lytic bone lesion. The bone mineralization is normal. The soft tissues are unremarkable. Impression:Negative nasal bone series Signed: Round, Lorne MDReport Verified Date/Time: 10/16/2018 14:05:41 Reading Location: [facility] Radiology Reading Room - HEPA IMAG INCL GB W [id number] 13:18:00 Patient Name: RHEA SPARKS Unit No: [id number] EXAMS: CPT CODE: [id number] HEPA IMAG INCLGB W PHA 07250 HIDA scan Location E5 Clinical indication: Nausea [...] small bowel visualize promptly 2. Gallbladder ejection fractionmeasurement is undefined due to patient inability to undergo imaging due to pain. Abbreviated ejection fraction measurement demonstrates no gallbladder emptying. at 1318 Reported and signed by: Jada Abrams M.D. CC: Mere MACK; Vielka Reno III, MD Technologist: Chanel Tejada, RT(NM) Transcrpt Date/Tm/Trnsp: 10/08/2018 (1318) [facility] Orig Print D/T: S: 10/08/2018 (2672) [facility] NAME: RHEA SPARKS [address] [address] PHYS: [place] [address] : 1980 AGE: 37 SEX: F LOC: YOGI PHONE #: [phone] EXAM DATE: 10/08/2018 STATUS: REG CLI FAX #: [phone] RADIOLOGY NO: PAGE 1 Signed Report- US ABDOMEN [id number] 10:22:00 Patient Name: RHEA SPARKS Unit No: [id number] EXAMS: CPT CODE: [id number] US ABDOMEN COMPLETE 91757 EXAMINATION: - US ABDOMEN COMPLETE. LOCATION: S17. [...] Sousa CC: Snow Segundo Technologist: Shawn Lopez [facility] Transcrpt Date/Tm/Trnsp: 10/08/2018 (1022) [email or web address] Orig Print D/T: S: 10/08/2018 (1025) [facility] NAME: RHEA SPARKS [id number] [address] PHYS: [place] [address] : 1980 AGE: 37 SEX: F LOC: YOGI PHONE #: [phone] EXAM DATE: 10/08/2018 STATUS: REG CLI FAX #: [phone] RADIOLOGY NO: PAGE 1 Signed Report- MRI C-SPINE W/O [id number] 12:54:00 Patient Name: RHEA SPARKS Unit No: [id number] EXAMS: CPT CODE: [id number] MRI C-SPINE W/O CONT 52258 R16 MRI CERVICAL SPINE WITHOUT CONTRAST INDICATION: RADICULOPATHY TECHNIQUE: Multiplanar multisequence MR images were obtained of the cervical spine without intravenous contrast. COMPARISON: None FINDINGS: Marked motion degradation. Straightening of the normal cervical lordosis. Vertebral bodies are normal in height. There is a normal marrow signal pattern. Moderate loss of disc heightat C4-C5. Mild loss of disc height in [...] Reported and signed by: Jonathan Sam MD [facility] NAME: RHEA SPARKS [address] [facility], [facility]. [address] PHYS: Shaq Martí[place] [address] : 1980 AGE: 37 SEX: FACCT NO: [id number] LOC: Z.ZMRI PHONE #: [phone] EXAM DATE: 09/25/2018 STATUS: REG CLI FAX #:[phone] RADIOLOGY NO: PAGE 1 Signed Report (CONTINUED) Patient Name: RHEA SPARKS Unit No: [id number] EXAMS: CPT CODE: [id number] MRI C-SPINE W/O CONT 34450 (Continued) CC: Shaq Burns; Vielka Reno III, MD Technologist: Chanel Tejada, RT(NM) Transcrpt Date/Tm/Trnsp: 09/25/2018 (1254) SoVB7 Orig Print D/T: S: 09/25/2018 (1257) [facility] NAME: RHEA SPARKS [address] [facility], [facility]. [address] PHYS: Shaq Martí[place] [address] : 1980 AGE: 37 SEX: F LOC: RM PHONE #: [phone] EXAM DATE: 09/25/2018 STATUS: REG CLI FAX #: [phone] RADIOLOGY NO: PAGE 2 Signed Report(MANUAL DIFFERENTIAL) [...] = 762) CBC W/PLT COUNT & AUTO [id number] 15:15:00 Test Item Value Reference Range Interpretation [...] (BEAKER) (test code = 413) URINALYSIS W/ [id number] 15:10:00 Test Item Value Reference Range Interpretation [...] = 1663) SOURCE(BEAKER) (test code = 2795) [id number] 15:09:00 Test Item Value Reference Range Interpretation Comments LIPASE (BEAKER) (test code = 749) 8 U/L 6-51 COMPREHENSIVE METABOLIC [id number] 15:09:00 Test Item Value Reference Range Interpretation [...] NOT APPLICABLE FOR DIALYSIS PATIEN TS. SCREEN, [id number] 14:51:00 Test Item Value Reference Range Interpretation Comments TEST URINE (BEAKER) (test Negative code = 583) 11997& PELVIS W/O [id number] 22:21:08CT ABDOMEN AND PELVISLocation code: [id number]: Flank pain.COMPARISON: None.TECHNIQUE: Volumetric acquisition of abdomen [...] 1. Bilateral nephrolithiasis, without ureteral calculi orhydronephrosis.Urinalysis [id number] 21:08:00 Test Item Value Reference Range Interpretation Comments Color (test code = Yellow Yellow,Straw,Pl N COLOR) yellow Clarity (test code = Clear Clear N CLAR) Specific [place] (test 1.034 1.001-1.035 N code = SPGR) [...] code = None /HPF BACT) BHCG, Urine, [id number] 21:04:00 Test Item Value Reference Range Interpretation Comments Preg Qual [Ur] (test code = HUHCG) Negative Negative N URINE [id number] 08:32:00 Test Item Value Reference Range Interpretation Comments CULTURE (BEAKER) (test 30-39,000 col/mL skin code = 1095) layla [id number] 21:20:00 Test Item Value Reference Range Interpretation Comments LIPASE (BEAKER) (test code = 749) 14 U/L 6-51 COMPREHENSIVE METABOLIC [id number] 21:06:00 Test Item Value Reference Range Interpretation [...] PATIEN TS. CBC W/PLT COUNT & AUTO [id number] 20:16:00 Test Item Value Reference Range Interpretation [...] L 0.00-0.20 (test code = 417) SCREEN, [id number] 20:04:00 Test Item Value Reference Range Interpretation Comments TEST URINE (BEAKER) (test Negative code = 583) URINALYSIS W/ [id number] 19:58:00 Test Item Value Reference Range Interpretation [...] 1663) SOURCE(BEAKER) (test code = 2795) URINE [id number] 08:11:00 Test Item Value Reference Range Interpretation Comments CULTURE (BEAKER) (test code = See comment 1095) <10,000 col/mL Proteus speciesCOMPREHENSIVE METABOLIC [id number] 08:43:00 Test Item Value Reference Range Interpretation [...] S NOT APPLICABLE FOR DIALYSIS PATIEN TS. [id number] 08:40:00 Test Item Value Reference Range Interpretation Comments LIPASE (BEAKER) (test code = 749) 7 U/L 6-51 URINALYSIS W/ [id number] 08:40:00 Test Item Value Reference Range Interpretation [...] 1663) SOURCE(BEAKER) (test code = 2795) SCREEN, [id number] 08:34:00 Test Item Value Reference Range Interpretation Comments TEST URINE (BEAKER) (test Negative code = 583) CBC W/PLT COUNT & AUTO [id number] 08:33:00 Test Item Value Reference Range Interpretation [...] = 417) Notes Date/Time Note Provider Source 2023-03-16 Formatting of this note might be differe nt from the original. Debora Ribeiro [facility] 22:35:00-00:00 Pt given printed and verbal discharge instructions regarding flank pain, encouraged hydration, RN Pt verbalized understanding of instructions, pt awake alert oriented, resp reg unlabored, skin w/d, color appropriate for race, moves all ext well,pt encouraged to follow up with pcp. Advised to seek medical attention for new/prolon ged/worsening of symptoms, Symptoms impoved No adverse reaction to meds given in ER noted up on discharge PIV d'cd, dressing to site, catheter in tact. Awake, alert oriented, resp reg unlabored, skin w/d, pt leaving amb with steady gait, in no apparent distress, 2023-03-16 Formatting of this note might be differe nt from the original. Zabrina De La Paz RN [facility] 18:29:34-00:00 C/o right flank pain that "i s always there but yesterday it got worse." States 02/05/2023 she had a nephrostomy tube removed from the right side. 2023-03-16 Formatting of this note is different from the or iginal. [facility] 17:51:00-00:00 [facility] Emergency Department Note Patient Name: Rhea Sparks Date of : 1980 42 year old female [address] Primary Care Physician: Jose Anderson Patient Escorted by: Self [9] Mode of Arrival: Personal means [1] EMS Treatment Prior to ED Arrival: Travel and Exposure Screening: Symptoms Does patient have any of these symptoms?: (not r ecorded) Exposure Screening Has patient had contact with someone with a communicable disease in the last month?: (not recorded) Diseases exposed to:: (not recorded) Is Patient ?: (not recorded) Exposure Date: (not recorded) Chief Complaint: Chief Complaint Patient presents with Flank Pain Right History of Present Illness: 42 y.o. female with recent r emoval of right Nephrostomy tube, now with right flank pain x 2 days. Past Medical History/Immunizations: Past Medical History: Diagnosis Date Anxiety Bipolar affective disorder in remission Chronic abdominal pain Depression Esophageal reflux Kidney stones Nephrolithiasis Pancreatic abnormality Low enzymes PTSD (post-traumatic stress disorder) Tetanus received in last 5 years: No Childhood immunizations: Up-to-date Allergies: Allergies Allergen Reactions Abilify [Aripiprazole] Unknown - See comments Can't remember Celexa [Citalopram] Other - See comments agreesive Cymbalta [Duloxetine] Unknown - See comments Cant remember the reaction Willard Other - See comments Prozac [Fluoxetine] Hallucinations Tegretol [Carbamazepine] Rash Quetiapine Other - See comments, Hives and Palp itations Speech problems Past Social History: Tobacco Use Former; Cigarettes: 10/08/1990 - 09/19/2020; 2.00 packs/day for 30.00 years Smokeless Tobacco: Never used smokeless tobacco . Vaping Use Never used Alcohol Use Not Currently. Drug Use Yes; Marijuana. Comments: For nausea as needed Past Surgical History: Past Surgical History: Procedure Laterality Date APPENDECTOMY CHOLECYSTECTOMY MYRINGOTOMY TUBAL LIGATION URETERAL CATHETER PLACEMENT Review of Systems: Review of Systems Constitutional: Negative. Negative for chills an d fever. HENT: Negative. Eyes: Negative. Respiratory: Negative. Breasts: Negative. Cardiovascular: Negative. Gastrointestinal: Negative. Genitourinary: Positive for flank pain. Negative for dysuria, urgency, decreased urine volume, vaginal bleeding, vaginal discharge, enuresis, difficulty urinating, vaginal pain, pelvic pain and dyspareunia. Skin: Negative. Neurological: Negative. Psychiatric/Behavioral: Negative. Endocrine: Endocrine negative Physical Exam: ED Triage Vitals [03/16/23 1831] Weight 104.3 kg (230 lb) Actual or estimated Estimated by patient/family report Height 1.549 m (5' 1") BP (!) 154/102 Pulse 93 Resp 16 Temp 36.9 ?C (98.4 ?F) Temp source Oral SpO2 100 % Measured on Room air Physical Exam Vitals and nursing note reviewed. Constitutional: General: She is not in acute distress. Appearance: Normal appearan ce. She is not ill-appearing, toxic-appearing or diaphoretic. HENT: Head: Normocephalic. Nose: Nose normal. Mouth/Throat: Mouth: Mucous membranes are moist. Cardiovascular: Rate and Rhythm: Normal rate. Pulses: Normal pulses. Pulmonary: Effort: Pulmonary effort is normal. No respirat ory distress. Abdominal: Palpations: Abdomen is soft. Tenderness: There is no right CVA tenderness or left CVA tenderness. Musculoskeletal: General: Normal range of motion. Skin: General: Skin is warm. Capillary Refill: Capillary refill takes less t guadarrama 2 seconds. Neurological: General: No focal deficit present. Mental Status: She is alert. Psychiatric: Mood and Affect: Mood normal. Behavior: Behavior normal. Radiology: CT ABDOMEN PELVIS WO CONTRAST Final Result ORDERING CLINICIAN: DAYA LOERA TECHNIQUE: Multidetector helical scanning of the abdomen and pelvis was performed without IV or oral contrast. Coronal a nd sagittal reformations were obtained. CT scan was performed according to the ALARA (as low as reasonably achievable) principal. STUDY QUALITY: Adequate INDICATION: Flank pain, kidney stone suspected r ight flank pain COMPARISON: None DISCUSSION: The lung bases are clear. The gallbladder has been surgically removed. The liver has a nodular contour. There are no he patic lesions. There is a small hiatal hernia. The stomach is o therwise normal. The right kidney is malrotated, otherwise the ki dneys, adrenal glands, spleen and pancreas are unremarkable. There is no rectal inflammation or perirectal fl uid. There is no colonic or small bowel inflammation or obstruction. The appendix is been removed. The pelvic organs are unremarkable. There is no pelvic mass or free fluid. There is mild aortoiliac atherosclerosis without aneurysm. There are no acute or suspicious osseous abnorma lities. IMPRESSION 1. No acute inflammatory or obstructive process identified in the abdomen or pelvis. 2. Previous cholecystectomy and appendectomy 3. Nodular contour of the liver concerning for e eddie changes of cirrhosis. 4. Small hiatal hernia RL: [id number] AFC: [id number] End of report Electronically signed by Iqra Yost at 023 7:44 PM Lab Results: Lab Results CBC WITH DIFF - Abnormal Result Value Ref Range WBC 9.74 4.30 - 11.10 10*3/?L RBC 4.64 3.93 - 5.25 10*6/?L HGB 13.4 11.6 - 15.0 g/dL HCT 40.5 35.7 - 45.2 % MCV 87.3 80.6 - 95.5 fL MCH 28.9 25.9 - 32.8 pg MCHC 33.1 31.6 - 35.1 g/dL RDW-SD 44.2 39.0 - 49.9 fL RDW-CV 13.7 12.0 - 15.5 % PLT 343 166 - 358 10*3/?L MPV 11.6 9.5 - 12.9 fL NRBC/100 WBC 0.0 0.0 - 10.0 /100 WBCs NRBC x10^3 <0.01 10*3/?L GRAN MAT (NEUT) % 48.5 % IMM GRAN % 0.40 % LYMPH % 36.6 % MONO % 9.9 % EOS % 4.1 % BASO % 0.5 % GRAN MAT x10^3(ANC) 4.73 1.88 - 7.09 10*3/uL IMM GRAN x10^3 0.04 0.00 - 0.06 10*3/uL LYMPH x10^3 3.56 (*) 1.32 - 3.29 10*3/uL MONO x10^3 0.96 (*) 0.33 - 0.92 10*3/uL EOS x10^3 0.40 (*) 0.03 - 0.39 10*3/uL BASO x10^3 0.05 0.01 - 0.07 10*3/uL COMP. METABOLIC PANEL (96711) - Abnormal NA 138 135 - 145 mmol/L K 4.4 3.5 - 5.0 mmol/L CL 104 98 - 108 mmol/L CO2 TOTAL 27 23 - 31 mmol/L AGAP 7 2 - 16 BUN 11 7 - 23 mg/dL GLUCOSE 98 70 - 110 mg/dL CREATININE 0.79 0.50 - 1.04 mg/dL TOTAL BILI 0.6 0.1 - 1.1 mg/dL CALCIUM 8.9 8.6 - 10.6 mg/dL T PROTEIN 8.1 6.3 - 8.2 g/dL ALBUMIN 4.3 3.5 - 5.0 g/dL ALK PHOS 52 34 - 122 U/L ALTv 40 (*) 5 - 35 U/L AST(SGOT) 42 (*) 13 - 40 U/L eGFR 79.4 mL/min/1.73m2 URINALYSIS - Abnormal APPEARANCE Hazy (*) Clear COLOR Yellow Yellow PH 6.0 4.8 - 8.0 SP GRAVITY 1.018 1.003 - 1.030 GLU U QUAL Normal Normal BLOOD Negative Negative KETONES Negative Negative PROTEIN Negative Negative UROBILIN Normal Normal BILIRUBIN Negative Negative NITRITE Negative Negative LEUK CHEPE Negative Negative RBC/HPF 1 0 - 3 HPF WBC/HPF 1 0 - 5 HPF BACTERIA Negative Negative MUCOUS Slight (*) Negative LPF SQ EPITH 10 HPF LIPASE - Normal LIPASE 34 0 - 220 U/L POCT TEST - Normal POCT PREG Negative On board controls acceptable with C Line Yes POCT PREG LOT # [id number] POCT PREG TEST DATE 05/16/24 TEST, URINE EKG: If EKG completed, see Procedure Note. Orders and Treatments: Orders Placed This Encounter Procedures CT ABDOMEN PELVIS WO CONTRAST CBC WITH DIFF COMP. METABOLIC PANEL (04045) URINALYSIS LIPASE TEST, URINE POCT TEST Orders Placed This Encounter Medications ketorolac (TORADOL) injection 30 mg NaCl 0.9% (NS) bolus infusion 1,000 mL morpHINE (4 mg/mL) injection 4 mg ondansetron (ZOFRAN (PF)) injection 4 mg First Provider Eval: ED Events None No notes of EC Admission Criteria type on file. ED COURSE Diagnosis/Impression as of 03/16/23 2104 Right flank pain Procedures: Procedures MDM: Medical Decision Making Amount and/or Complexity of Data Reviewed Labs: ordered. Radiology: ordered. Risk Prescription drug management. Parenteral controlled substances. A) Musculoskeletal Pain vs. Renal Colic Disposition/Condition: Home, rest, hydration, Toradol prn, [place] prn, ER warnings, ED Disposition None Discharge Medications: Patient's Medications START taking these medications No medications on file CONTINUE taking these medications which have NOT CHANGED ACETAMINOPHEN (TYLENOL EXTR A STRENGTH) 500 MG TABLET Take 1 tablet by mouth every 6 (six) hours as needed for Pain for up to 20 doses. ALBUTEROL 90 MCG/ACTUATION INHALER Inhale 2 Puffs every 6 (six) hours as needed for Wheezing or Shortness of Breath. BENZONATATE (TESSALON PERLE S) 100 MG CAPSULE Take 1-2 capsules three times a day as needed for cough. BUSPIRONE 10 MG TABLET Take 1 tablet by mouth in the morning and 1 tablet in the evening. CLONAZEPAM 1 MG TABLET Take 1 tablet by mouth in the morning and 1 tablet in the evening. FAMOTIDINE 40 MG TABLET Take 1 tablet by mouth in the morning. FLUTICASONE PROPIONATE 50 M CG/ACTUATION NASAL SPRAY Use 2 Sprays in each nostril in the morning. CTRNFX-BWGTJEME-MCTQRUA 36, 000-114,000- 180,000 UNIT CPDR Take 2 capsules by mouth with meals and 1 with each snack. LORATADINE 10 MG TABLET Take 1 tablet by mouth in the morning. METOCLOPRAMIDE HCL 10 MG TA BLET Take 1 tablet by mouth at bedtime as needed for Nausea and Vomiting (N/V). MIRTAZAPINE 30 MG TABLET Take 1 tablet by mouth at bedtime. ONDANSETRON 4 MG DISINTEGRA TING TABLET Take 1 tablet by mouth every 8 (eight) hours as needed for Nausea and Vomiting (N/V). PROMETHAZINE 25 MG TABLET T beatris 1 tablet by mouth every 6 (six) hours as needed for N/V unresponsive to Ondansetron. SUMATRIPTAN 50 MG TABLET Take 1 tablet by mouth as needed for Migraine. TIZANIDINE 2 MG TABLET Take 1 tablet by mouth every 6 (six) hours as needed for Pain (scale 4-6). START taking Modified Medications as Prescribed No medications on file STOP taking these medications No medications on file Follow-up: PCP Electronically signed by: Daya Loera MD 03/16/232104 Electronically signed by Daya Loera MD at 0 03/16/2023 9:05 PM CDT 2023-03-13 [facility] 14:40:17-00:00 Patient notified of new prescription being sent in. 2023-03-13 [facility] 14:00:05-00:00 I sent a new rx specifying brand or generic. Best, Dr. Anderson 2023-03-12 [facility] 14:26:49-00:00 Please review and advise. 2023-03-12 Formatting of this note might be differe nt from the original. Christine Mireles [facility] 11:56:48-00:00 Pt called and is needing an alternate medication sent to the pharmacy. Per pharmacy name brand is on back order. albuterol 90 mcg/actuation inhaler [place], [place] - [address] 2023-03-04 Formatting of this note might be differe nt from the original. Yojana Lu MA [facility] 08:27:01-00:00 Referral sent electronically and also faxed by me today at 7:50am. 2023-03-03 [facility] 16:59:38-00:00 Referral sent 2023-03-03 [facility] 08:25:01-00:00 Please review and advise . 2023-02-28 Formatting of this note might be differe nt from the original. Chanel Reinoso [facility] 08:45:31-00:00 Dr Bundy office is ca lling for referral for patient to see pain management. CPT Codes need auth are: [id number] [id number] The patient is bedridden and has back pain due t o kidney failure. Dr. Romero's Address: [address] [place] [address] Office [phone] X [phone] or x [phone] Electronically signed by Chanel Reinoso at 8:52 AM CDT 2022-04-[address] [facility] 17:02:48-00:00 PROGRESS NOTE RHEA SPARKS FACILITY: [facility] Billing #: [id number] Room: [address] [place] [address] MR #: [id number] : 1980 PHYSICIAN: Travis Duran MD ADMISSION [...] any apparent distress. Family member at the [facility]. PHYSICAL EXAMINATION: VITAL SIGNS: Stable. HEENT: Normocephalic, atraumatic. Pupils are equ al, round and reactive to light and accommodation. Extraocular muscles are intact. NECK: Supple. Good range of motion. CARDIOVASCULAR: Regular rate. ABDOMEN: Obese. Positive bowel sounds. BACK: Deferred. EXTREMITIES: Within normal limits. NEUROLOGICAL: Limited but nonfocal. ASSESSMENT: Pleasant female with history of pain and other comorbidities is stable on regimen for pain cont rol. PLAN: 1. Continue current regimen. 2. Follow with the attending provider and the ca re team conservatively. OEO/MODL /[id number] 2022-04-[address] [facility] 15:11:23-00:00 CONSULTATION RHEA SPARKS FACILITY: [facility] Billing #: [id number] Room: [address] [place] [address] MR #: [id number] : 1980 DATE OF ADMISSION: 04/24/2022 DATE OF CONSULTATION: 04/25/2022 REQUESTING PHYSICIAN: [facility] [place] [employer] [facility] HEAD: Travis Duran MD REASON FOR REFERRAL: Pain [...] In addition, we will continue with the [place] that h as been ordered for pain control. 2. We will also give the patient one dose of met hocarbamol IV piggyback 1 g to see if that will help and follo w up with the attending physician and other providers conserva tively. OEO/MODL /[id number] 2019-01-[address] [facility] 17:39:34-00:00 OPERATIVE/PROCEDURE REPORT RHEA SPARKS FACILITY: [facility] Billing #: [id number] Room: [facility] MR #: [id number] : 1980 DATE OF PROCEDURE: 01/19/2019 SURGEON: Dalila Boateng MD PREOPERATIVE DIAGNOSIS: Biliary dyskinesia. POSTOPERATIVE DIAGNOSIS: Biliary dyskinesia. PROCEDURE PERFORMED: Laparoscopic cholecystectom y. BACK UP WORKER: Missy James PA-C. COMPLICATIONS: None. ANESTHESIA: General [...] were reported by the operative nurse as johanna fung. PAUL/RAIN /[id number]
[2023-03-23 09:43] LABS: Specific Gravity 1.018 (1.005-1.030); Urine Bacteria None Seen /HPF (<20); Urine Bilirubin NEGATIVE (Negative); Urine Blood Negative (Negative); Urine Clarity Extremely Turbid (Clear); Urine Color Light-Yellow (Yellow); Urine Glucose NEGATIVE (Negative); Urine Mucus Slight /HPF (None Seen); Urine Protein NEGATIVE (Negative); Urine RBC <5 /HPF (None Seen); Urine Urobilinogen Normal (Normal)
[2023-03-23 09:56] LABS: Albumin 3.5 g/dL (3.4-5.0); Bilirubin Total 0.1 mg/dL (0.2-1.0); Potassium 3.7 mEq/L (3.5-5.1); Protein, Total 7.7 g/dL (6.4-8.2)
[2023-03-23] MEDS ORDERED: MORPHINE 4 MG/ML SYR ONE (11:05)
--- NOTE | 2023-03-23 11:41 | RAD REPORT ---
EXAM DESCRIPTION: CT - Abdomen Pelvis Wo Contrast - 03/23/2023 11:30 am CLINICAL HISTORY: Abdominal pain COMPARISON: January 2023 TECHNIQUE: Computed axial tomography of the abdomen and pelvis was obtained. IV and oral contrast we re not requested. All CT scans are performed using dose optimization technique as appropriate and may include automated exposure control or mA/KV adjustment according to patient size. FINDINGS: The evaluation of solid organs, vessels and bowel is limited secondary to the lack of con trast administration. Fatty liver. Cholecystectomy The spleen, pancreas, and adrenals grossly normal Tiny bilateral renal calculi. No hydronephrosis Appendectomy. No evidence of diverticulitis No adnexal mass Small umbilical hernia IMPRESSION: Tiny bilateral nonobstructing renal calculi
--- NOTE | 2023-03-23 12:01 | ER ---
Nurse's Notes [facility] Name: Rhea Dos Santos Age: 42 yrs Sex: Female : 1980 Arrival Date: 03/23/2023 Time: 09:06 Bed 14 Private MD: Diagnosis: Upper abdominal pain, unspecified Presentation: 03/23 09:11 Chief complaint: EMS states: Abdominal pain and N/V since 0200 today. Hx of hb gastroparesis. Coronavirus screen: At this time, the client does not indicate any symptoms associated with coronavirus-19. Ebola Screen: No symptoms or risks identified at this time. Initial Sepsis Screen: Does the patient meet any 2 criteria? HR > 90 bpm. No. Patient's initial sepsis screen is negative. Does the patient have a suspected source of infection? No. Patient's initial sepsis screen is negative. Risk Assessment: Do you want to hurt yourself or someone else? Patient reports no desire to harm self or others. Onset of symptoms was March 23, 2023. 09:11 Method Of Arrival: EMS: [facility] 09:11 Acuity: PARSAD 3 hb Triage Assessment: 09:13 General: Appears in no apparent distress. uncomfortable, Behavior is cooperative, hb anxious. Pain: Pain currently is 10 out of 10 on a pain scale. EENT: No signs and/or symptoms were reported regarding the EENT system. Neuro: Level of Consciousness is awake, alert, obeys commands, Oriented to person, place, time, situation. Cardiovascular: Patient's skin is warm and dry. Respiratory: Respiratory effort is even, unlabored, Respiratory pattern is regular, symmetrical. GI: Reports upper abdominal pain, nausea, vomiting. : No signs and/or symptoms were reported regarding the genitourinary system. Derm: Skin is pink, warm \T\ dry. Musculoskeletal: No signs and/or symptoms reported regarding the musculoskeletal system. Historical: - Allergies: 09:13 Abilify; hb 09:13 Celexa; hb 09:13 Cymbalta; hb 09:[address] Carbonate; hb 09:13 Prozac; hb 09:13 Tegretol; hb - PMHx: 09:13 Bipolar disorder; depressive disorder; Kidney stone; Pancreatitis; PTSD; hb - PSHx: 09:13 Appendectomy; Cholecystectomy; hb - Immunization history:: Adult Immunizations up to date. - Social history:: Smoking status: Patient reports the use of cigarette tobacco products. Screenin:14 [facility] ED Fall Risk Assessment (Adult) Score/Fall Risk Level 0 - 2 = Low Risk hb Oriented to surroundings, Maintained a safe environment. Abuse screen: Denies threats or abuse. Denies injuries from another. Nutritional screening: No deficits noted. Tuberculosis screening: No symptoms or risk factors identified. Assessment: 09:14 General: See triage assessment . hb 10:10 Reassessment: Patient appears in no apparent distress at this time. Patient and/or hb family updated on plan of care and expected duration. Pain level reassessed. Patient is alert, oriented x 3, equal unlabored respirations, skin warm/dry/pink. 11:00 Reassessment: Patient appears in no apparent distress at this time. Patient and/or hb family updated on plan of care and expected duration. Pain level reassessed. Patient is alert, oriented x 3, equal unlabored respirations, skin warm/dry/pink. 11:15 Reassessment: Pt to CT. hb 11:32 Reassessment: Pt returned from CT. hb 13:00 Reassessment: Patient appears in no apparent distress at this time. Patient and/or hb family updated on plan of care and expected duration. Pain level reassessed. Patient is alert, oriented x 3, equal unlabored respirations, skin warm/dry/pink. Vital Signs: 09:11 BP 183 / 118; Pulse 101; Resp 20; Temp 98.5(A); Pulse Ox 97% on R/A; Weight 104.33 kg; hb Height 5 ft. 1 in. ; Pain 10/10; 10:50 BP 165 / 86; Pulse 81; Resp 18; Pulse Ox 99% on R/A; Pain 9/10; hb 12:30 BP 162 / 69; Pulse 79; Resp 16; Pulse Ox 100% on R/A; hb 09:11 Body Mass Index 43.46 (104.33 kg, 154.94 cm) hb 09:11 Pain Scale: Adult hb 10:50 Pain Scale: Adult hb ED Course: 09:09 Patient arrived in ED. ss 09:10 Cayla Bennett FNP-C is PHCP. kb 09:10 Duane Crouch MD is Attending Physician. kb 09:13 Triage completed. hb 09:14 Arm band placed on left wrist. hb 09:14 Patient has correct armband on for positive identification. Provided Education on: new hb patient orientation . 09:16 Rhea Raphael, RN is Primary Nurse. hb 09:30 Inserted saline lock: 22 gauge in left wrist, using aseptic technique. Blood collected. hb 11:32 CT Abd/Pelvis - Without Contrast In Process Unspecified. EDMS 13:00 No provider procedures requiring assistance completed. IV discontinued, intact, jl7 bleeding controlled, No redness/swelling at site. Pressure dressing applied. Administered Medications: 09:30 Drug: Famotidine IVP 20 mg Route: IVP; Site: left wrist; jl7 10:11 Follow up: Response: No adverse reaction hb 09:30 Drug: metoCLOPramide IVP 10 mg Route: IVP; Site: left wrist; jl7 10:29 Follow up: Response: No adverse reaction hb 09:31 Drug: NS 0.9% IV 1000 ml Route: IV; Rate: 1 bolus; Site: left wrist; jl7 10:30 Follow up: Response: No adverse reaction; IV Status: Completed infusion; IV Intake: hb 1000ml 09:31 Drug: TORadol - Ketorolac IVP 15 mg Route: IVP; Site: left wrist; jl7 10:11 Follow up: Response: No adverse reaction hb 10:56 Drug: morphine IVP or IV 4 mg Route: IVP; Infused Over: 4 mins; Site: left wrist; hb 11:32 Follow up: Response: No adverse reaction hb 12:29 Drug: Dicyclomine PO 20 mg Route: PO; hb 13:00 Follow up: Response: No adverse reaction hb 12:29 Drug: Promethazine IM 25 mg Route: IM; Site: right deltoid; hb 13:00 Follow up: Response: No adverse reaction hb Medication: 09:14 VIS not applicable for this client. hb Intake: 10:30 IV: 1000ml; Total: 1000ml. hb Outcome: 12:00 Discharge ordered by . kb 13:00 Discharged to home ambulatory. jl7 13:00 Condition: stable 13:00 Discharge instructions given to patient, Instructed on discharge instructions, follow up and referral plans. Demonstrated understanding of instructions, follow-up care. 13:19 Patient left the ED. hb Signatures: Dispatcher [employer] EDMS Fabricio Bennettistin, SALES ASSISTANT-C SALES ASSISTANT-CkJulia Wakefield, RN RN ss Rhea Raphael, MARIBELL RN Lesli Edwards RN RN jl7 Corrections: (The following items were deleted from the chart) 13:19 13:00 BP 163 / 69; Pulse 79bpm; Resp 16bpm; Pulse Ox 100% RA; Pain 08/20, Adult; hb hb
--- NOTE | 2023-03-23 12:01 | EDPHYS ---
Physician Documentation [facility] Name: Rhea Dos Santos Age: 42 yrs Sex: Female : 1980 Arrival Date: 03/23/2023 Time: 09:06 Bed 14 Private MD: ED Physician Duane Crouch HPI: 03/23 17:37 This 42 yrs old Female presents to ER via EMS with complaints of Abdominal Pain. kb 17:37 The patient presents with abdominal pain in the upper abdomen. Onset: The kb symptoms/episode began/occurred this morning. The symptoms do not radiate. Associated signs and symptoms: Pertinent positives: nausea and vomiting. The symptoms are described as constant. Modifying factors: The symptoms are alleviated by nothing, the symptoms are aggravated by nothing. Severity of pain: At its worst the pain was moderate in the emergency department the pain is unchanged. The patient has experienced similar episodes in the past. The patient has not recently seen a physician. Pt reports she has gastroparesis and is not supposed to eat after 1700 at night per her GI. States she takes ambien for sleep and woke up in the kitchen eating toast at 0200. States she has had pain since waking up this morning. States it feels similar to previous episodes of gastropareiss. Historical: - Allergies: 09:13 Abilify; hb 09:13 Celexa; hb 09:13 Cymbalta; hb 09:13 [place] Carbonate; hb 09:13 Prozac; hb 09:13 Tegretol; hb - PMHx: 09:13 Bipolar disorder; depressive disorder; Kidney stone; Pancreatitis; PTSD; hb - PSHx: 09:13 Appendectomy; Cholecystectomy; hb - Immunization history:: Adult Immunizations up to date. - Social history:: Smoking status: Patient reports the use of cigarette tobacco products. ROS: 17:36 Constitutional: Negative for fever, chills, and weight loss. kb 17:36 Abdomen/GI: Positive for abdominal pain, nausea and vomiting, Negative for diarrhea, constipation. 17:36 All other systems are negative. Exam: 17:36 Constitutional: This is a well developed, well nourished patient who is awake, alert, kb and in no acute distress. Head/Face: Normocephalic, atraumatic. ENT: Moist Mucous membranes Cardiovascular: Regular rate and rhythm with a normal S1 and S2. No gallops, murmurs, or rubs. No pulse deficits. Respiratory: Respirations even and unlabored. No increased work of breathing. Talking in full sentences Skin: Warm, dry with normal turgor. Normal color. MS/ Extremity: Pulses equal, no cyanosis. Neurovascular intact. Full, normal range of motion. Neuro: Awake and alert, GCS 15, oriented to person, place, time, and situation. Moves all extremities. Normal gait. 17:36 Abdomen/GI: Inspection: abdomen appears normal, Bowel sounds: normal, Palpation: soft, in all quadrants, mild abdominal tenderness, in the right upper quadrant and left upper quadrant. Vital Signs: 09:11 BP 183 / 118; Pulse 101; Resp 20; Temp 98.5(A); Pulse Ox 97% on R/A; Weight 104.33 kg; hb Height 5 ft. 1 in. ; Pain 10/10; 10:50 BP 165 / 86; Pulse 81; Resp 18; Pulse Ox 99% on R/A; Pain 9/10; hb 12:30 BP 162 / 69; Pulse 79; Resp 16; Pulse Ox 100% on R/A; hb 09:11 Body Mass Index 43.46 (104.33 kg, 154.94 cm) hb 09:11 Pain Scale: Adult hb 10:50 Pain Scale: Adult hb MDM: 09:10 Patient medically screened. kb 17:36 Differential diagnosis: pancreatitis, gastroparesis, GERD. Data reviewed: vital signs, kb nurses notes. Historians other than the Patient: EMS: [facility]. 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 ED course: Lipase elevated, CT ordered. Normal pancreas on CT. Will discharge home. Pt will follow up with GI. 03/23 09:11 Order name: CBC with Diff; Complete Time: 09:38 kb 03/23 09:11 Order name: CMP; Complete Time: 09:57 kb 03/23 09:11 Order name: Lipase; Complete Time: 09:57 kb 03/23 09:11 Order name: Test, Urine; Complete Time: 09:44 kb 03/23 09:11 Order name: Urinalysis w/ reflexes; Complete Time: 09:44 kb 03/23 10:52 Order name: CT Abd/Pelvis - Without Contrast; Complete Time: 11:48 kb 03/23 09:11 Order name: IV Saline Lock; Complete Time: 09:31 kb 03/23 09:11 Order name: Labs collected and sent; Complete Time: 09:31 kb 03/23 11:49 Order name: PO challenge; Complete Time: 11:54 kb Administered Medications: 09:30 Drug: Famotidine IVP 20 mg Route: IVP; Site: left wrist; jl7 10:11 Follow up: Response: No adverse reaction hb 09:30 Drug: metoCLOPramide IVP 10 mg Route: IVP; Site: left wrist; jl7 10:29 Follow up: Response: No adverse reaction hb 09:31 Drug: NS 0.9% IV 1000 ml Route: IV; Rate: 1 bolus; Site: left wrist; jl7 10:30 Follow up: Response: No adverse reaction; IV Status: Completed infusion; IV Intake: hb 1000ml 09:31 Drug: TORadol - Ketorolac IVP 15 mg Route: IVP; Site: left wrist; jl7 10:11 Follow up: Response: No adverse reaction hb 10:56 Drug: morphine IVP or IV 4 mg Route: IVP; Infused Over: 4 mins; Site: left wrist; hb 11:32 Follow up: Response: No adverse reaction hb 12:29 Drug: Dicyclomine PO 20 mg Route: PO; hb 13:00 Follow up: Response: No adverse reaction hb 12:29 Drug: Promethazine IM 25 mg Route: IM; Site: right deltoid; hb 13:00 Follow up: Response: No adverse reaction hb Disposition Summary: 03/23/23 12:00 Discharge Ordered Location: Home kb Condition: Stable kb Diagnosis - Upper abdominal pain, unspecified kb Followup: kb - With: Emergency Department - When: As needed - Reason: Worsening of condition Followup: kb - With: Private Physician - When: 2 - 3 days - Reason: Recheck today's complaints, Continuance of care, Re-evaluation by your physician Discharge Instructions: - Discharge Summary Sheet kb - Abdominal Pain, Adult, [id number] kb - Gastroparesis kb Forms: - Medication Reconciliation Form kb - Thank You Letter kb - Antibiotic Education kb - Prescription Opioid Use kb - Patient Portal Instructions kb - Leadership Thank You Letter kb Signatures: Dispatcher [employer] Cayla Smith, ADRIANA-C ADRIANA-Rhea Eagle, RN RN Lesli García RN RN jl7
[2023-03-23] MEDS ORDERED: DICYCLOMINE HCL 10 MG CAP ONE (12:36)
[2023-03-23] MEDS ORDERED: PROMETHAZINE INJ 25 MG/ML AMP ONE (12:36)
[2023-03-23 13:28] VITALS: TEMP 98.5
[2023-03-23 13:39] VITALS: BP 162/69; O2SAT 100
== END 2023-03-23 13:19 | disposition home or self-care (01) ==
LOC: ER 09:06
DX: R10.10 Upper abdominal pain, unspecified (principal); R11.2 Nausea with vomiting, unspecified; Z72.0 Tobacco use; Z88.8 Allergy status to other drugs, medicaments and biological substances
CPT/HCPCS: 96361; 85025; 81001; 36415; 81025; 83690; 80053; 74176; 96375; 96372; 96374; 99284; J2550; J2765; J7030